=== PATIENT | female | born 1995 | race Caucasian/White ===

== ENCOUNTER → 2025-01-18 | Outpatient (CLI) | payer BC, SELFPAY ==
[2025-01-20 06:07] LABS: Chlamydia By Nucleic Acid AMP Negative (Negative); Gonococcus By Nucleic Acid AMP Negative (Negative)
== END | disposition home or self-care (01) ==
LOC: LABSPEC 10:27
PROVIDERS: PCP Nurse Practitioner; Referring Provider Advanced Practice Midwife; Visit Provider Advanced Practice Midwife
DX: O09.91 Supervision of high risk pregnancy, unspecified, first trimester (principal); Z3A.00 Weeks of gestation of pregnancy not specified
CPT/HCPCS: 87086; 87088; 87491; 87591

== ENCOUNTER → 2025-03-01 | Outpatient (CLI) | payer BC, SELFPAY ==
[2025-03-01 15:40] LABS: Absolute Lymphocyte Count 1.82 X10^3/uL (0.83-4.51); Absolute Neutrophil Count 5.2 X10^3/uL (2.0-7.7); Basophil# 0.03 X10^3/uL; Basophil% 0.4 % (0-1); Eosinophils% 1.3 % (0-5); Hematocrit 37.4 % (37-47); Hemoglobin 12.6 g/dL (12.0-15.0); Lymphocyte # 1.82 X10^3/ul (0.83-4.51); Lymphocyte % 23.2 % (19-41); Mean Corp Hgb Conc 33.7 g/dL (32-36); Mean Corpuscular Hgb 29.2 pg (27.0-32.0); Mean Corpuscular Volume 86.6 fL (81-99); Monocyte# 0.66 X10^3/uL; Monocyte% 8.4 % (0-10); NRBC Flagged by Analyzer 0 % (0-5); Neutrophil # 5.22 X10^3/uL (2.7-7.7); Neutrophil % 66.4 % (47-70); Platelet Count 258 K/mm3 (150-450); RBC Distribution Width CV 12.6 % (11.6-14.6); RBC Distribution Width SD 39.9 fl (35.1-43.9); Red Blood Count 4.32 M/mm3 (4.2-5.4); White Blood Count 7.9 K/mm3 (4.4-11.0)
--- OUTSIDE RECORDS SUMMARY | 2025-03-01 15:42 | XMS RPT_ITS | CCD ---
Author Organization [facility]iniSy[facility] Care Team Providers Care Air Intelligence Officer Name Role Phone Anand Cooley Unavailable Aisha, Michael Unavailable Unavailable Aisha, Michael Unavailable Unavailable ANAND COOLEY Primary Care Unavailable Anand Cooley Primary Care Provider [phone] Eunice Moreno Unavailable Татьяна Brooke Primary Care Provider [phone] Anand Cooley DO Primary Care Provider Eunice Del Angel CNP Unavailable [phone] Татьяна Brooke CNP Primary Care Provider [phone] Татьяна Brooke CNP Primary Care Provider [phone] Anand Cooley DO Primary Care Provider Anand Cooley Unavailable Marie Mario Unavailable Unavailable Fabiano, Cassandra Goldman Attending Unavailable Dr. Anand Cooley Primary Care Unavail able Dr. Anand Cooley Primary Care Unavail able Fabiano, Cassandra Marie Susi Attending Unavailable Eunice Del Angel CNPanne Unavailable Татьяна Brooke CNP Primary Care Provider [phone] Anand Cooley DO Primary Care Provider Татьяна Brooke CNP Primary Care Provider AMY CHI Attending Unavailable ТАТЬЯНА BROOKE Primary Care Unavailable SELF, SELF Referring Unavailable ANAND COOLEY Primary Care Unavailable LEMUEL LEE Attending Unavailable LEMUEL LEE Referring Unavailable LENORA, ANAND Primary Care Unavailable GREEN, DAMIENAVY Attending Unavailable GREEN, PALLAVY Referring Unavailable LENORA, ANAND Primary Care Unavailable JELENA WALTER Attending Unavailable SELF, SELF Referring Unavailable SELF, SELF Referring Unavailable AMY CHI Attending Unavailable EDWARDO, ТАТЬЯНА Primary Care Unavailable GREEN, DAMIENAVY Attending Unavailable GREEN, PALLAVY Referring Unavailable EDWARDO, ТАТЬЯНА Primary Care Unavailable SELF, SELF Referring Unavailable LENORA, ANAND Primary Care Unavailable AMY CHI Attending Unavailable LENORA, ANAND Primary Care Unavailable LENORA, ANAND Primary Care Unavailable KSIAZK, MINO Attending Unavailable KSIAZK, MINO Referring Unavailable Edwardobeau JOVEL, Татьяна Gallagher. Unavailable [phone] Keyla Meneses CNP Primary Care Provider GIDEON, KEYLA LONNAE Primary Care Unavailabl e GIDEON, KEYLA LONNAE Admitting Unavailabl e GIDEON, KEYLA LONNAE Primary Care Unavailabl e Anand Cooley DO Primary Care Provider ANAND COOLEY Primary Care Unavailable ANTONIO LOPEZ Attending Unavailable GIDEON, KEYLA LONNAE Attending Unavailabl e GIDEON, KEYLA LONNAE Primary Care Unavailabl e GIDEON, KEYLA LONNAE Primary Care Unavailabl e GEHLOT, UPENDER Attending Unavailable GIDEON, KEYLA LONNAE Referring Unavailabl e GIDEON, KEYLA LONNAE Admitting Unavailabl e GEHLOT, UPENDER Attending Unavailable GIDEON, KEYLA LONNAE Primary Care Unavailabl e GIDEON, KEYLA LONNAE Primary Care Unavailabl e GIDEON, KEYLA LONNAE Attending Unavailabl e GIDEON, KEYLA LONNAE Primary Care Unavailabl e GIDEON, KEYLA LONNAE Attending Unavailabl e GIDEON, KEYLA LONNAE Primary Care Unavailabl e GIDEON, KEYLA LONNAE Attending Unavailabl e GIDEON, KEYLA LONNAE Primary Care Unavailabl e GIDEON, KEYLA LONNAE Attending Unavailabl e GIDEON, KEYLA LONNAE Attending Unavailabl e GIDEON, KEYLA LONNAE Primary Care Unavailabl e Gideon SALES INCENTIVE ANALYST-C, Keyla L Primary Care Provider Gideon SALES INCENTIVE ANALYST-CKeyla Referring Provider Bianca SALES INCENTIVE ANALYSTEmma Ramírez Attending Provider Nel Ruff CNM Attending Provider Nel Ruff CNM Referring Provider Keyla Meneses Primary Care Unavailable Feliz Menesesl L Referring Unavailable Emma Valenzuela NP Attending Unavailable Keyla Meneses Referring Unavailable Nel Ruff Attending Unavailable Keyla Meneses Primary Care Unavailable Keyla Meneses Referring Unavailable Emmanuelle Contreras Attending Unavailabl e Keyla Meneses Primary Care Unavailable Nel Ruff Attending Unavailable Nel Ruff Referring Unavailable Keyla Meneses Primary Care Unavailable Chas Espinoza DO, Dr. Handley Attending Provider Medications Current Medications Medication Drug Class(es) Dates Sig (Normalized) Sig (Original) [id number] 200 actuat albuterol 0.09 mg/actuat metered dose inhaler (4 sources) beta2-Adrenergic Agonist Start: 09-29-2023 take 1 puff(s) by inhalation every six hours as needed for cough Albuterol 108 (90 Base) MCG/ACT Aero Soln inhaler Indications: Acute bronchitis, unspecified organism Inhale 1 puff every 6 hours as needed for Shortness of Breath, Cough, Respiratory Distress or Wheezing. 18 g 09/29/2023 Active azithromycin 250 mg oral tablet (2 sources) Macrolide Antimicrobial Start: 12-17-2023 End: 12-21-2023 Azithromycin 250 MG tablet Take 500 mg X1 then 250 mg PO Once Daily X 4 days 6 tablet 12/17/2023 12/21/2023 Active Start: 09-29-2023 End: 10-04-2023 Azithromycin 250 MG tablet I ndications: Acute bronchitis, unspecified organism Take by mouth 2 tablets (500 mg) on Day 1, then 1 tablet (250 mg) daily on Days 2-5 6 tablet 0 09/29/2023 10/04/2023 Active Blood Glucose Monitoring Sup pl (ONE TOUCH ULTRA 2) w/Device Kit (15 sources) Start: 06-11-2022 Blood Glucose Monitoring Suppl (ONE TOUCH ULTRA 2) w/Device Kit As directed. 06/11/2022 Active Start: 06-11-2022 Blood Glucose Monitoring Suppl (ONE TOUCH ULTRA 2) w/Device Kit As directed. 0 06/11/2022 Active brompheniramine maleate 0.4 mg/ml / dextromethorphan hydrobromide 2 mg/ml / pseudoephedrine hydrochloride 6 mg/ml oral solution (2 sources) alpha-Adrenergic Agonist, Uncompetitive I-jslmqh-F-aspartate Receptor Antagonist, Sigma-1 Agonist Start: 11-09-2024 End: 11-19-2024 take 5 mL by mouth once daily at bedtime ssozxukhbrdujay-kjqrqddbe-IK 2-30-10 mg/5 mL syrup Indications: Acute rhinosinusitis Take 5 mL by mouth once daily at bedtime for 10 days. 120 mL 11/09/2024 11/19/2024 Active Start: 01-07-2023 take 5 mL by mouth every four hours brompheniramine/dextromethorphan/pseudoe phedrine 2 mg-10 mg-30 mg/5 mL oral syrup ; 5 milliliter(s) orally every 4 hours Quantity: 120 Refills: 0 Ordered: 07-Jan-2023 [employer], Marie Start: 07-Jan-2023 Generic Substitution Allowed Comments: May cause drowsiness. Alcohol may intensify this effect. Use care when operating dangerous machinery.Obtain medical advice before taking any non-prescription drugs as some may affect the action of this medication. Comment on above: May cause drowsiness . Alcohol may intensify this effect. Use care when operating dangerous machinery.Obtain medical advice before taking any non-prescription drugs as some may affect the action of this medication. ciprofloxacin 3 mg/ml ophthalmic solution (1 source) Quinolone Antimicrobial Start: 2022 take 2 drop(s) into the eye(s) every four hours ciprofloxacin 0.3% ophthalmic solution ; 2 drop(s) in each affected eye every 4 hours Quantity: 1 Refills: 0 Ordered: 07-Jan-2023 [employer], Marie Start: 07-Jan-2023 Generic Substitution Allowed Comments: For the eye. Comment on above: For the eye. cyclobenzaprine hydrochloride 5 mg oral tablet (15 sources) Muscle Relaxant Start: 2021 End: 2022 take 1 tablet by mouth three times daily as needed for muscle spasms cyclobenzaprine 5 MG tablet Take 1 tablet by mouth 3 times daily as needed for Muscle spasms. 30 tablet 07/13/2022 Active 24 hr desvenlafaxine succinate 25 mg extended release oral tablet (4 sources) Serotonin and Norepinephrine Reuptake Inhibitor Start: 2023 End: 2023 take 1 tablet by mouth once daily desvenlafaxine succinate 25 mg Tb24 Indications: Anxiety and depression Take 1 (one) tablet (25 mg total) by mouth daily . 30 tablet 04/27/2024 05/18/2024 Discontinued dextromethorphan hydrobromide 15 mg / guaiFENesin 400 mg / pseudoephedrine hydrochloride 60 mg oral tablet (4 sources) alpha-Adrenergic Agonist, Uncompetitive U-qplyic-G-aspartate Receptor Antagonist, Sigma-1 Agonist Start: 2023 take 1 tablet by mouth every six hours as needed pseudoephedrine-dextr omethorphan-guaiFENes in (Capmist DM) 60-15-400 MG tablet Indications: Acute bronchitis, unspecified organism Take 1 tablet by mouth every 6 hours as needed for Cold Symptoms. 30 tablet 09/29/2023 Active escitalopram 10 mg oral tablet (2 sources) Serotonin Reuptake Inhibitor Start: 2022 End: 2023 take 1 tablet by mouth once daily escitalopram oxalate (LEXAPRO) 10 MG tablet Indications: Anxiety Take 1 (one) tablet (10 mg total) by mouth daily . 30 tablet 11 07/21/2023 09/01/2023 Discontinued FLUoxetine 10 mg oral capsule (8 sources) Serotonin Reuptake Inhibitor Start: 2023 End: 2023 take 1 capsule by mouth once daily FLUoxetine (PROZAC) 20 MG capsule Indications: Anxiety Take 1 (one) capsule (20 mg total) by mouth daily . 30 capsule 04/06/2024 04/27/2024 Discontinued Start: 03-06-2024 End: 05-18-2024 take 1 capsule by mouth once daily FLUoxetine (PROZAC) 10 MG capsule Indications: Anxiety and depression Take 1 (one) capsule (10 mg total) by mouth daily . 15 capsule 04/27/2024 05/18/2024 Discontinued fluticasone propionate 0.05 mg/actuat metered dose nasal spray (1 source) Corticosteroid Start: 12-17-2023 take 2 spray(s) nasal route once daily fluticasone 50 MCG/ACT Suspension nasal spray 2 sprays each nostril daily 11.1 mL 12/17/2023 Active folic acid 0.4 mg oral tablet (20 sources) End: 09-01-2023 take 1 tablet by mouth once daily folic acid (FOLVITE) 400 MCG tablet Take 1 (one) tablet (400 mcg total) by mouth daily . 0 09/01/2023 Discontinued INTRAUTERINE DEVICE, IUD, UTRN (1 source) INTRAUTERINE DEVICE, IUD, UTRN by Intrauterine route. Active ipratropium bromide 0.042 mg/actuat metered dose nasal spray (1 source) Anticholinergic Start: 11-09-2024 End: 11-16-2024 take 2 spray(s) nasal route four times daily ipratropium (Atrovent) 42 mcg (0.06 %) nasal spray Indications: Acute rhinosinusitis Administer 2 sprays into each nostril 4 times a day for 7 days. 15 mL 11/09/2024 11/16/2024 Active isopropyl alcohol 0.7 ml/ml medicated pad (18 sources) Start: 06-11-2022 Alcohol Swabs (Alcohol Wipes) 70 % Pads To be used to check blood sugar 100 Each 3 06/11/2022 Active lamoTRIgine 200 mg oral tablet (8 sources) Mood Stabilizer, Anti-epileptic Agent Start: 01-02-2025 take 1 tablet by mouth once daily Lamotrigine 200 mg tablet Active 200 mg PO daily January 02, 2025 12:00am Start: 07-27-2024 End: 12-25-2024 take 1 tablet by mouth once daily lamoTRIgine (LAMICTAL) 200 MG tablet Take 1 (one) tablet (200 mg total) by mouth daily Monitor for rash/fever . 30 tablet 2 12/25/2024 Active Start: 06-13-2024 End: 07-27-2024 lamoTRIgine (LAMICTAL) 25 MG tablet Start 1 tab daily X 2 weeks and then 2 tabs daily X 2weeks and then 4 tabs daily thereafter. Monitor for rash/fever . 120 tablet 06/13/2024 07/27/2024 Discontinued (Reorder (Suppress CancelRx Message to Pharmacy)) 3 ml liraglutide 6 mg/ml pen injector (2 sources) GLP-1 Receptor Agonist Start: 04-02-2023 liraglutide (Victoza 2-Russel) 0.6 mg/0.1 mL (18 mg/3 mL) injection Inject 0.6 mg every day for one week, then inject 1.2 mg every day for one week, then inject 1.8 mg every day 04/02/2023 Active Start: 05-04-2021 inject 1.8 mg by sub cutaneous injection once daily Victoza 18 MG/3ML Solution Pen-injector injection inject 1.8 milligram subcutaneously daily 0 05/04/2021 Active 24 hr metFORMIN hydrochlorid e 500 mg extended release oral tablet (20 sources) Biguanide Start: 01-02-2025 Metformin 500 mg tablet extended release 24 hr Active 1500 mg PO daily January 02, 2025 12:00am Start: 04-02-2023 take 1 tablet by maribell th twice daily metFORMIN (GLUCOPHAGE-XR) 500 MG 24 hr tablet Take 1 (one) tablet (500 mg total) by mouth 2 (two) times a day . 04/02/2023 Active Start: 04-02-2023 take 4 tablets by mo [facility] once daily metFORMIN-XR 500 MG Tab SR 24 HR Take 4 tablets by mouth daily. 04/02/2023 Active Start: 04-25-2021 End: 01-09-2022 take 1 tablet by mouth once daily metFORMIN-XR 500 MG Tab SR 24 HR Take 1,000 mg by mouth daily. 0 04/25/2021 01/09/2022 Discontinued Start: 10-12-2019 End: 07-21-2022 take 1 tablet by mouth once daily at breakfast metFORMIN (GLUCOPHAGE) 500 MG tablet Indications: PCOS (polycystic ovarian syndrome) Take 1 (one) tablet (500 mg total) by mouth daily with breakfast . 30 tablet 11 10/12/2019 07/21/2022 Discontinued Multiple Vitamins-Minerals (WOMENS MULTIVITAMIN PO) (3 sources) Multiple Vitamin s-Minerals (WOMENS MULTIVITAMIN PO) Take by mouth. Active multivitamin (THERAGRAN) per tablet (12 sources) take 1 tablet by mouth once daily multivitamin (THERAGRAN) per tablet Take 1 (one) tablet by mouth daily . Active take 1 tablet by mouth once yesi y multivitamin (THERAGRAN) per tablet Take 1 (one) tablet by mouth daily . 0 Active OneTouch Ultra2 Meter Misc (3 sources) Start: 06-11-2022 End: 09-01-2023 OneTouch Ultra2 Meter Misc S ee Admin Instructions . 0 06/11/2022 09/01/2023 Discontinued Start: 06-11-2022 OneTouch Ultra 2 Meter Misc See Admin Instructions . 0 06/11/2022 Active penicillin v potassium 500 mg oral tablet (2 sources) Start: 12-31-2022 End: 01-09-2023 take 1 tablet by mouth twice daily 1 hour(s) after mealtime penicillin V potassium 500 mg oral tablet ; 1 tab(s) orally 2 times a day Quantity: 20 Refills: 0 Ordered: 31-Dec-2022 Marie Mario Start: 31-Dec-2022 End: 09-Jan-2023 Generic Substitution Allowed Comments: Finish all this medication unless otherwise directed by prescriber.Take medication on an empty stomach 1 hour before or 2 to 3 hours after a meal unless otherwise directed by your doctor. Comment on above: Finish all this medi cation unless otherwise directed by prescriber.Take medication on an empty stomach 1 hour before or 2 to 3 hours after a meal unless otherwise directed by your doctor. Pnv No.[id number] -Epa-Fish 400 mcg-35 mg- 25 mg-5 mg tablet,chewable (2 sources) Start: 01-11-2025 Pnv No.[id number]-Dha-Epa -Fish 400 mcg-35 mg- 25 mg-5 mg tablet,chewable Active {tbl} PO January 11, 2025 12:00am predniSONE 10 mg oral tablet (6 sources) Start: 11-09-2024 End: 11-16-2024 take 3 tablets by mouth once daily predniSONE (Deltasone) 10 mg tablet Indications: Acute rhinosinusitis Take 3 tablets (30 mg) by mouth once daily for 7 days. 21 tablet 11/09/2024 11/16/2024 Active Start: 09-29-2023 take 3 tablets by mo uth once daily, then take 2 tablets by mouth once daily, then take 1 tablet by mouth once daily predniSONE 20 MG tablet Indications: Acute bronchitis, unspecified organism Take 3 tabs daily x2 days then 2 tabs daily x2 days then 1 tab daily x2 days PO as directed 12 tablet 09/29/2023 Active Start: 01-05-2023 End: 01-11-2023 take 2 tablets by mouth once daily, then take 1 tablet by mouth once daily predniSONE 20 MG tablet Take 2 tablets by mouth daily for 3 days, THEN 1 tablet daily for 3 days. 40,40,40,20,20,20. 9 tablet 0 01/05/2023 01/11/2023 Active vitamin (2 sources) vitamin Quantity: 0 Refills: 0 Ordered: 31-Dec-2022 Kalee Simeon Generic Substitution Allowed vitamin with Ca-Iron-FA 27-1 mg Tab (4 sources) End: 09-01-2023 take 1 tablet by mouth once daily vitamin with Ca-Iron-FA 27-1 mg Tab Take 1 (one) tablet by mouth daily . 0 09/01/2023 Discontinued take 1 tablet by mouth once yesi y vitamin with Ca-Iron-FA 27-1 mg Tab Take 1 (one) tablet by mouth daily . 0 Active Completed/Discontinued Medications Medication Drug Class(es) Dates Sig (Normalized) Sig (Original) acetaminophen 325 mg oral tablet (1 source) Start: 08-11-2022 End: 08-13-2022 take 325-650 mg by mouth every three hours as needed acetaminophen (TYLENOL) tablet 325-650 mg benzocaine 200 mg/ml / menthol 5 mg/ml topical spray (1 source) Standardized Chemical Allergen Start: 08-11-2022 End: 08-13-2022 Benzocaine-Menthol (DERMOPLAST) 20-0.5 % topical spray 1 spray bisacodyl 5 mg delayed release oral tablet (1 source) Stimulant Laxative Start: 08-11-2022 End: 08-13-2022 bisacodyl (DULCOLAX) tablet DR 10 mg busPIRone hydrochloride 7.5 mg oral tablet (9 sources) Start: 05-18-2024 End: 12-25-2024 take 1 tablet by mouth three times daily busPIRone (BUSPAR) 7.5 MG tablet Indications: Anxiety and depression Take 1 (one) tablet (7.5 mg total) by mouth 3 (three) times a day . 90 tablet 05/18/2024 12/25/2024 Discontinued Start: 04-27-2024 End: 05-27-2024 take 1 tablet by mouth twice daily busPIRone (BUSPAR) 5 MG tablet Indications: Anxiety and depression Take 1 (one) tablet (5 mg total) by mouth 2 (two) times a day . 60 tablet 04/27/2024 05/18/2024 Discontinued calcium chloride 0.0014 meq/ml / potassium chloride 0.004 meq/ml / sodium chloride 0.103 meq/ml / sodium lactate 0.028 meq/ml injectable solution (1 source) Start: 08-11-2022 End: 08-11-2022 lactated ringers IV solution 1,000 mL cholecalciferol 0.025 mg oral tablet (20 sources) Vitamin D End: 12-25-2024 take 1 tablet by mouth once daily cholecalciferol, vitamin D3, 1,000 unit tablet Take 1 (one) tablet (1,000 Units total) by mouth daily . 12/25/2024 Discontinued take 1 tablet by mouth once yesi y Vitamin D, Cholecalciferol, 25 MCG (1000 UT) tablet Take 1 tablet by mouth daily. 0 Active Vitamin D3 Quant ity: 0 Refills: 0 Ordered: 31-Dec-2022 Vladykina Kalee Generic Substitution Allowed citalopram 10 mg oral tablet (2 sources) Serotonin Reuptake Inhibitor Start: 09-01-2023 End: 08-31-2024 take 1 tablet by mouth once daily citalopram (CELEXA) 10 MG tablet Indications: Anxiety Take 1 (one) tablet (10 mg total) by mouth daily . 30 tablet 11 09/01/2023 03/06/2024 Discontinued clomiPHENE citrate 50 mg oral tablet (11 sources) Estrogen Agonist/Antagoni st Start: 11-24-2021 End: 04-30-2022 clomiPHENE 50 MG tablet Take 1 tablet by mouth daily. To be taken cycle day 3 thru 7. 5 tablet 0 11/24/2021 04/30/2022 Discontinued (Patient Preference) diphenhydrAMINE hydrochloride 25 mg oral tablet (1 source) Histamine-1 Receptor Antagonist Start: 08-11-2022 End: 08-13-2022 take 1 tablet by mouth every six hours as needed diphenhydrAMINE (BENADRYL) tablet 25 mg docosahexaenoic acid 200 mg oral capsule (2 sources) Start: 01-02-2025 End: 01-11-2025 Docosahexaenoic Acid ( Dha) 200 mg capsule Discontinued mg PO January 02, 2025 12:00am January 11, 2025 10:41am docusate sodium 100 mg oral capsule (1 source) Start: 08-11-2022 End: 08-13-2022 docusate (COLACE) capsule 100 mg ferrous sulfate 325 mg oral tablet (1 source) Start: 08-12-2022 End: 08-13-2022 ferrous sulfate tablet 325 mg 250 ml glucose 50 mg/ml / sodium chloride 4.5 mg/ml injection (1 source) Start: 08-12-2022 End: 08-13-2022 dextrose 5% and sodium chloride 0.45% IV solution GLUCOSE MONITOR PRESCRIPTION (12 sources) Start: 06-11-2022 End: 08-13-2022 GLUCOSE MONITOR PRESCRIPTION Check blood sugars fasting every morning and then 2 hrs post prandial after each meal 1 Each 0 06/11/2022 08/13/2022 Discontinued Start: 06-11-2022 GLUCOSE MONITO R PRESCRIPTION Check blood sugars fasting every morning and then 2 hrs post prandial after each meal 1 Each 0 06/11/2022 Active ibuprofen 400 mg oral tablet (1 source) Nonsteroidal Anti-inflammatory Drug Start: 08-11-2022 End: 08-13-2022 take 1 tablet by mouth every six hours as needed ibuprofen (MOTRIN) tablet 800 mg lanolin (MEDELA TENDER CARE) cream 1 Application (1 source) Start: 08-11-2022 End: 08-13-2022 lanolin (MEDELA TENDER CARE) cream 1 Application 1 ml nalbuphine hydrochloride 10 mg/ml injection (1 source) Opioid Agonist/Antagonist Start: 08-11-2022 End: 08-11-2022 nalbuphine (NUBAIN) injection 5-10 mg oxytocin (PITOCIN) bolus from the bag 20 Units (1 source) Start: 08-11-2022 End: 08-13-2022 oxytocin (PITOCIN) bolus from the bag 20 Units Vit-Fe Fumarate-FA ( VITAMIN PO) (20 sources) End: 10-26-2023 Vit-Fe Fumarate-FA ( VITAMIN PO) Take by mouth. 10/26/2023 Discontinued (Other (suppress cancel msg)) Vit-Fe Fumarate-FA ( VITAMIN PO) Take by mouth. 0 Active vitamin (TRINATAL RX) 60-1 MG tablet 1 tablet (1 source) Start: 08-12-2022 End: 08-13-2022 vitamin (TRINATAL RX) 60-1 MG tablet 1 tablet 250 ml sodium chloride 9 mg/ml injection (1 source) Start: 08-11-2022 End: 08-11-2022 sodium chloride 0.9% IV solution 125 mL zolpidem tartrate 5 mg oral tablet (1 source) gamma-Aminobutyric Acid-ergic Agonist Start: 08-11-2022 End: 08-13-2022 zolpidem (AMBIEN) tablet 5 mg Problems Active Problems Problem Classification Problem Date Documented Date Episodic/Chronic Abdominal pain (1 source) Right upper quadrant pain; Translations: [Right upper quadrant pain] Episodic Acute and chronic tonsillitis (1 source) Acute tonsillitis, unspecified; Translations: [Acute tonsillitis, unspecified] Onset: 3 Episodic Acute bronchitis (3 sources) Acute bronchitis; Translations: [Acute bronchitis, unspecified] Onset: 4 09-29-2023 Episodic Anxiety disorders (20 sources) Anxiety; Translations: [Anxiety disorder, unspecified] Onset: 4 Resolved: 4 07-21-2023 Chronic Comment on above: sees psychiatrist-Dr Cassandra Fuentes-Does not meet criteria for diagnosis of bipolar Diabetes or abnormal glucose tolerance complicating ; childbirth; or the puerperium (20 sources) Gestational diabetes mellitus; Translations: [Gestational diabetes mellitus in , diet controlled] Onset: 2 Episodic Female infertility (1 source) Female infertility associated with anovulation; Translations: [Female infertility associated with anovulation] Chronic Genitourinary symptoms and ill-defined conditions (1 source) Dysuria; Translations: [Dysuria] Episodic Inflammation; infection of eye (except that caused by tuberculosis or sexually transmitteddisease) (3 sources) Conjunctivitis; Translations: [Conjunctivitis, unspecified] Onset: 3 01-07-2023 Episodic Influenza (2 sources) Influenza 01-07-2023 Comment on above: FLU SYMPTOMS Malaise and fatigue (5 sources) Fatigue; Translations: [Chronic fatigue, unspecified] Onset: 4 04-06-2024 Chronic Menstrual disorders (1 source) Amenorrhea, unspecified; Translations: [Amenorrhea, unspecified] Onset: 5 Chronic Mood disorders (3 sources) Mood disorder; Translations: [Unspecified mood [affective] disorder] Onset: 5 12-26-2024 Chronic Mood disorders (6 sources) Mood disorders; Translations: [Depression, unspecified] Onset: 0 Resolved: 4 09-25-2019 Nutritional deficiencies (20 sources) Vitamin D deficiency; Translations: [Vitamin D deficiency, unspecified] Onset: 2 10-22-2021 Chronic Other complications of ; puerperium affecting management of mother (1 source) Disruption of episiotomy wound in the puerperium; Translations: [Disruption of perineal obstetric wound] Episodic Other complications of (1 source) Pain in pelvis; Translations: [Other specified related conditions, first trimester] Episodic Other complications of (1 source) Reduced movement; Translations: [Decreased movements, second trimester, not applicable or unspecified] Episodic Other complications of (15 sources) High risk ; Translations: [Supervision of high risk , unspecified, third trimester] Episodic Comment on above: , ASHLEE 09/04/25, [place], Josue Other complications of (5 sources) History of gestational diabetes mellitus; Translations: [Supervision of with other poor reproductive or obstetric history, unspecified trimester] 01-18-2025 Episodic Comment on above: A1C Other complications of (6 sources) Supervision of with other poor reproductive or obstetric history, unspecified trimester; Translations: [History of forceps delivery in prior , currently ] Onset: 5 01-11-2025 Episodic Other complications of (1 source) Supervision of high risk , unspecified, first trimester; Translations: [Supervision of high risk , unspecified, first trimester] Onset: 5 Episodic Other endocrine disorders (8 sources) Polycystic ovarian syndrome; Translations: [Polycystic ovary syndrome] Onset: 5 01-18-2025 Chronic Comment on above: on metformin- sees e ndo in [place] Other endocrine disorders (20 sources) Polycystic ovary; Translations: [Polycystic ovarian syndrome] Onset: 2 10-22-2021 Chronic Other eye disorders (1 source) Other specified disorders of eye and adnexa; Translations: [Other specified disorders of eye and adnexa] Onset: 3 Episodic Other lower respiratory disease (2 sources) Cough; Translations: [Acute cough] Episodic Other nutritional; endocrine; and metabolic disorders (20 sources) Insulin resistance; Translations: [Metabolic syndrome] Onset: 2 10-22-2021 Chronic Other nutritional; endocrine; and metabolic disorders (2 sources) Metabolic syndrome; Translations: [Metabolic syndrome] Onset: 4 Chronic Other nutritional; endocrine; and metabolic disorders (2 sources) Weight gain; Translations: [Weight gain] Episodic Other and delivery including normal (12 sources) Normal ; Translations: [Encounter for supervision of normal first , second trimester] Onset: 5 Episodic Comment on above: elects NIPT & Marsha r testing Other upper respiratory disease (2 sources) Pain in throat 12-31-2022 Episodic Comment on above: SORE THROAT Other upper respiratory disease (1 source) Nasal congestion; Translations: [Nasal congestion] Onset: 3 Episodic Other upper respiratory infections (15 sources) Acute upper respiratory infections of other multiple sites; Translations: [Viral upper respiratory tract infection] Onset: 3 12-31-2022 Episodic Residual codes; unclassified (2 sources) Gestation period, 8 weeks; Translations: [8 weeks gestation of ] Episodic Residual codes; unclassified (1 source) Gestation period, 17 weeks; Translations: [17 weeks gestation of ] Episodic Residual codes; unclassified (1 source) Gestation period, 20 weeks; Translations: [20 weeks gestation of ] Episodic Residual codes; unclassified (1 source) Gestation period, 24 weeks; Translations: [24 weeks gestation of ] Episodic Residual codes; unclassified (1 source) Gestation period, 31 weeks; Translations: [31 weeks gestation of ] Episodic Residual codes; unclassified (2 sources) Gestation period, 32 weeks; Translations: [32 weeks gestation of ] Episodic Residual codes; unclassified (1 source) Gestation period, 34 weeks; Translations: [34 weeks gestation of ] Episodic Residual codes; unclassified (1 source) Gestation period, 35 weeks; Translations: [35 weeks gestation of ] Episodic Residual codes; unclassified (1 source) Gestation period, 36 weeks; Translations: [36 weeks gestation of ] Episodic Residual codes; unclassified (2 sources) Gestation period, 37 weeks; Translations: [37 weeks gestation of ] Episodic Residual codes; unclassified (1 source) 10 weeks gestation of ; Translations: [10 weeks gestation of ] Onset: 5 Episodic Unclassified (20 sources) Onset: 2 01-14-2022 Unclassified (1 source) Pharyngotonsillitis 12-31-2022 Unclassified (1 source) Cough, unspecified; Translations: [Cough, unspecified] Onset: 3 Unclassified (1 source) Acute cough; Translations: [Acute cough] Onset: 4 Viral infection (2 sources) Viral ear infection; Translations: [Other disorders of ear] 01-07-2023 Episodic Past or Other Problems Problem Classification Problem Date Documented Date Episodic/Chronic Other complications of (12 sources) Patient encounter status; Translations: [Maternal care for abnormalities of the heart rate or rhythm, unspecified trimester, not applicable or unspecified] Onset: 08-11-2022 Episodic Other screening for suspected conditions (not mental disorders or infectious disease) (5 sources) Cancer cervix screening status; Translations: [Encounter for screening for malignant neoplasm of cervix] Onset: 07-06-2023 10-26-2023 Episodic Unclassified (1 source) Acute cough; Translations: [Acute cough] Onset: 09-29-2023 NEGATED: Highlighted row has been ruled out!Unclassified (1 source) No known active problems 01-30-2020 Results Test Name Value Interpretation Reference Range Facil ity Chlamydia/GC NELLY aptimaon CHLAMY,NUC ACID Negative Normal Negative [facility] Comment on above: Performed By: #### M 100.2200, L7000.1800 #### [facility] [address] [place], [address] GC BY NUC ACID Negative Normal Negative [facility] Comment on above: Result Comment: Perf ormed at: =G - [facility] [place] [address] [place], [place] [id number] Riding Teacher: Helena Lieberman MD, Phone: [phone] Performed By: #### M 100.2200, L7000.1800 #### [facility] [address] [place], [place], [id number] Urine Cultureon 01-19-2025 U[facility] Below infection level. Mixed Gram Positive Organisms [place] Count 1000-10,000 MIXC Mixed contaminants. Submit a new specimen if indicated. Normal [facility] Comment on above: Performed By: #### M 100.2200, L7000.1800 #### [facility] [address] [place], [place], [id number] Chlamydia trachomatis rRNA d etection by probe and target amplification methodOrdered By: Nel Ruff on 01-18-2025 C. trachomatis rRNA NELLY+probe Ql (Unsp spec) Negative Negative [facility] Neisseria gonorrhoeae nuclei c acid detection by amplified probe techniqueOrdered By: Nel Ruff on 01-18-2025 N. gonorrhoeae DNA NELLY+probe Ql (Unsp spec) Negative Negative [facility] Comment on above: Performed at: =G - [facility] [address] [place], [place] [id number] Director: Helena Lieberman MD, Phone: [phone] [employer] Office Visit Reporton 01-18-2025 [employer] Office Visit Report [facility] [address], [address] [place] [address] OFFICE VISIT Date of Service: 01/18/25 MR#: [id number] Acct: [id number] Name: DRAKE PETTY Rep #: [id number] : 1995 Provider: BRET Gay ams Age/Sex: 29/F [place] [facility] [place]: Signed Intake Vital Signs 01/02/25 08:40 01/18/25 08:47 Height 5 ft 4 in 5 ft 4 in Weight: 162 lb 2 oz BMI 27.8 BP 122/79 H Intake Visit Reasons: NOB LMP 11/09 Chief Complaint: New OB Copy Lathe Operator Required: No Is patient in pain?: No Allergies No Known Allergies Allergy (Unverified 01/18/25 08:46) Medications ???Medication ???Instructions ???Recorded ???Confirmed ???Type lamotrigine 200 mg tablet 200 mg PO QDAY 01/02/25 01/18/25 H istory metformin 500 mg tablet,extended 1,500 mg PO QDAY 01/02/25 01/18/25 History release 24 hr PNV 153-FA 400 mcg-om3 35 mg-dha tab PO 01/11/25 01/18/25 History 25 mg-epa 5 mg-fish oil chew tablet Last Menstrual Period: 11/09/24 : Yes Have you fallen in the past year?: No PFSH PFSH Medical History (Updated 01/18/25 @ 09:30 by Nel Ruff CNM) Depression with anxiety PCOS (polycystic ovarian syndrome) Surgical History S/P wrist surgery S/P left knee surgery Family History Father Hypertension Mother Depression with anxiety Grandmother Diabetes Maternal Skin cancer, Onset Age: 75 Maternal Grandfather Diabetes Maternal Grandmother Diabetes Paternal Social History adopted: No household members: spouse and children housing: house number of children: 1 current occupational status: employed 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 [employer] current occupational exposures/hazards: No pets and animals: No history of recent travel: Yes (- December) out of state: Yes out of country: No sexually active: Yes Smoking Status: Never smoker alcohol intake: current alcohol intake frequency: a few times a month details: not since substance use type: former substance user Date of last use: 10years ago and marijuana well-balanced diet: daily or most days caffeine: No eating out: 1-3 times/week during the past year weight has: decreased > 10 lbs what type of physical activity do you participate in: walking frequency: 5-6 times per week duration: 45-60 minutes/day carolann/episcopalian: None seatbelt use: always do you feel safe at home: Yes 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 Date Name GA/Weeks Outcome Route Bth Weight Infant Gen Labor Lgth Anesthesia Del Locatn Provider FOB 08/11/22 [place] 38 live - full term forceps 6#10oz Male epidural [facility] Josue Delivery Date: 08/11/22 Last Updated by: Joslyn Gregory IOL, GDM HPI NOB LMP 11/09 Details: DRAKE PETTY is a 29 year old who presents for New OB visit. OB Visit ASHLEE Calculator Estimated Delivery Date Method Current WG Current Estimate 09/04/25 Ultrasound #1 7w 2d Other Estimates 08/16/25 LMP (Certain) 10w 0d Comments: HIV: Urine Culture: Sequential Screen: NIPT Screen: Estimated Due Date: 08/16/25 Expected Delivery Route/Plan Labor Preferences- CB/BF classes: [] labor support person: [] labor intervention preferences: [] pain management options preferred: [] cut cord/dad catch: [] : [] PP control planned: [] discussed possible routes of delivery and associated risks: [] special requests: [] Specific Issue/Plans Covid status: [] Flu vaccine: [] Tdap vaccine: [] Rhogam: [] LARC form signed: [] Problem list reviewed and updated with the most current plan of care details and appropriate orders placed. Relevant counseling for the gestational age provided. Continue routine care and follow up unless otherwise noted in visit notes/problem list details Initial Weight: 162 lb Date -???-???-???-???-??? -???-???-???-???-??? -???-???- EGA Weight BP Urine Prot -???-???-???-???-??? -???-???-???-???-??? -???-???- Glucose FHR FuHt Pres Dilation -???-???-???-???-??? -???-???-???-???-??? -???-???- Effaced St Visit Note 01/18/25 -???-???-???-???-??? -???-???-???-???-??? -???-???- 7w 2d 162 lb 2 oz (+2 oz) 122/79 -???-???-???-???-??? -???-???-???-???-??? -???-???- 151 -???-???-???-???-??? -???-???-???-???-??? -???-???- KW-CRL not c ons with dates. ASHLEE changed. will plan NOB labs next vis (more content not included)... Normal [facility] Urine cultureOrdered By: Rajesh Ruff on 01-18-2025 Bacteria identified Cx Nom (U) Positive Abnormal [facility] - Chemistry and C hemistry - challengeOrdered By: Emma Valenzuela on 01-02-2025 HCG ( test) Ql (U) Positive [facility] [employer] Office Visit Reporton 01-02-2025 [employer] Office Visit Report [facility] [address], [address] [place] [address] OFFICE VISIT Date of Service: 01/02/25 MR#: [id number] Acct: [id number] Name: DRAKE PETTY Rep #: [id number] : 1995 Provider: OLY hoffman Age/Sex: 29/F [place] [facility] [place]: Signed Intake Vital Signs 01/02/25 08:40 Height 5 ft 4 in Weight: 162 lb BMI 27.8 Intake Visit Reasons: Confirmation/Establi Care Copy Lathe Operator Required: No Is patient in pain?: No Allergies No Known Allergies Allergy (Unverified 01/02/25 08:41) Medications ???Medication ???Instructions ???Recorded ???Confirmed ???Type docosahexaenoic acid 200 mg mg PO 01/02/25 01/02/25 History capsule ( DHA) lamotrigine 200 mg tablet 200 mg PO QDAY 01/02/25 01/02/25 H istory metformin 500 mg tablet,extended 1,500 mg PO QDAY 01/02/25 01/02/25 History release 24 hr Is last menstrual period known: Yes Last Menstrual Period: 11/09/24 Post menopausal: No Patient : Yes : No PFSH Medical History (Updated 01/02/25 @ 11:10 by Emma Valenzuela SALES INCENTIVE ANALYST, SALES INCENTIVE ANALYST-C) Depression with anxiety PCOS (polycystic ovarian syndrome) Surgical History (Updated 01/02/25 @ 08:47 by Vee Luis) S/P wrist surgery S/P left knee surgery Family History (Updated 01/02/25 @ 08:48 by Vee Luis) Father Hypertension Mother Depression with anxiety Grandmother Diabetes Skin cancer Grandfather Diabetes Social History (Updated 01/02/25 @ 08:49 by Vee Luis) Smoking Status: Never smoker alcohol intake: current details: not since substance use type: does not use caffeine: No what type of physical activity do you participate in: walking frequency: 3-4 times per week seatbelt use: always do you feel safe at home: Yes additional social history: -Josue HPI Confirmation/[facility] Care Details: DRAKE PETTY is a 29 year old who presents for Female Reproductive History Last Menstrual Period: 11/09/24 History 2 Elective abortions Hx Para 1 Spontaneous abortions Hx # Term Pregnancies Ectopic pregnancies Hx # Pregnancies Multiple births # of living children 1 Results POC Urine Office , Urine Positive Last Edit by Vee Luis on 01/02/25 08:50 Coding Level of Care Code Off vis,est,level 1 Diagnoses Supervision of high risk in first trimester O09.91 Trimester: first trimester Assessment and Plan Assessment and Plan (1) Supervision of high-risk : Status: Acute Qualifiers: Trimester: first trimester Qualified Code(s): O09.91 - Supervision of high risk , unspecified, first trimester Orders: Orders POC Urine Today N91.2 - Amenorrhea, unspecified Plan Confirmed NOB scheduled. 01/02/25 1110 Date Emma Fitzgeraldtings SALES INCENTIVE ANALYST SALES INCENTIVE ANALYST-C Cosigner Signature: Date (if applicable) CC: Normal [facility] Beta HCG ( test) Ql on 12-26-2024 Interpretation and review of laboratory results Abnormal [facility] FASTING:UNKNOWN FASTING: UNKNOWN [facility] hCG, Serum, Qualitativeon Beta HCG ( test) Ql Positive Abnormal See Note: [facility] Comment on above: Reference Range: Reference Range Non-: Negative : Positive CBC WITH AUTO DIFFERENTIALon 06-15-2024 AUTO NRBC 0.0 % [facility] Comment on above: Performed By: #### L [id number] #### [facility] [address] [address] Guerrero Barnett M.D. [id number] AUTO NRBC ABS COUNT 0.00 K/mcL Normal 0.00-0.00 [facility] Comment on above: Performed By: #### L [id number] #### LAB [address] [address] Guerrero Barnett M.D. [id number] BASOPHILS ABSOLUTE COUNT 0.05 K/mcL Normal 0.00-0.30 [facility] Comment on above: Performed By: #### L [id number] #### [facility] [address] [id number] Guerrero Barnett M.D. [id number] Basophils/100 WBC (Bld) 0.8 % [facility] Comment on above: Performed By: #### L [id number] #### LAB [address] [address] Guerrero Barnett M.D. [id number] Eosinophils (Bld) [#/Vol] 0.18 10*3/uL Normal 0.00-0.50 [facility] Comment on above: Performed By: #### L [id number] #### LAB [address] [place] [address] Guerrero Barnett M.D. [id number] Eosinophils/100 WBC (Bld) 2.8 % Normal [facility] Comment on above: Performed By: #### L [id number] #### LAB [address] [place] [address] Guerrero Barnett M.D. [id number] Erythrocyte distribution width (RBC) [Ratio] 12.8 % Normal 11.6-14.8 [facility] Comment on above: Performed By: #### L [id number] #### LAB [address] [place] [address] Guerrero Barnett M.D. [id number] Hematocrit (Bld) [Volume fraction] 40.7 % Normal 36.0-46.0 [facility] Comment on above: Performed By: #### L [id number] #### LAB [address] [place] [address] Guerrero Barnett M.D. [id number] Hemoglobin (Bld) [Mass/Vol] 13.2 g/dL Normal 12.0-16.0 [facility] Comment on above: Performed By: #### L [id number] #### LAB [address] [place] [address] Guerrero Barnett M.D. [id number] IG ABSOLUTE 0.02 K/mcL Normal 0.00-0.30 [facility] Comment on above: Performed By: #### L [id number] #### LAB [address] [place] [address] Guerrero Barnett M.D. [id number] IG PERCENT 0.30 % Normal [facility] Comment on above: Result Comment: The IG parameter is the percentage of metamyelocytes, myelocytes and promyelocytes. An immature granulocyte count (IG) of 1% or more suggests the possibility of infection, an IG count of 3% is very likely related to an infection. Performed By: #### L [id number] #### LAB [address] [address] Guerrero Barnett M.D. [id number] Lymphocytes (Bld) [#/Vol] 2.53 10*3/uL Normal 0.90-4.00 [facility] Comment on above: Performed By: #### L [id number] #### LAB [address] [address] Guerrero Barnett M.D. [id number] Lymphocytes/100 WBC (Bld) 38.7 % Normal [facility] Comment on above: Performed By: #### L [id number] #### LAB [address] [address] Guerrero Barnett M.D. [id number] MCH (RBC) [Entitic mass] 29.0 pg Normal 26.0-34.0 [facility] Comment on above: Performed By: #### L [id number] #### LAB [address] [address] Guerrero Barnett M.D. [id number] MCV (RBC) [Entitic vol] 89.5 fL Normal 80.0-100.0 [facility] Comment on above: Performed By: #### L [id number] #### LAB [address] [place] [address] Guerrero Barnett M.D. [id number] MEAN CORPUSCULAR HEMOGLOBIN CONC 32.4 g/dL Normal 31.0-37.0 [facility] Comment on above: Performed By: #### L [id number] #### LAB [address] [address] Guerrero Barnett M.D. [id number] Monocytes (Bld) [#/Vol] 0.64 10*3/uL Normal 0.30-0.90 [facility] Comment on above: Performed By: #### L [id number] #### LAB [address] [place] [address] Guerrero Barnett M.D. [id number] Monocytes/100 WBC (Bld) 9.8 % Normal [facility] Comment on above: Performed By: #### L [id number] #### LAB [address] [address] Guerrero Barnett M.D. [id number] NEUTROPHILS ABSOLUTE COUNT 3.11 K/mcL Normal 1.70-7.00 [facility] Comment on above: Performed By: #### L [id number] #### LAB [address] [address] Guerrero Barnett M.D. [id number] Neutrophils/100 WBC (Bld) 47.6 % Normal [facility] Comment on above: Performed By: #### L [id number] #### LAB [address] [address] Guerrero Barnett M.D. [id number] Platelet mean volume (Bld) [Entitic vol] 9.9 fL Normal 9.4-12.4 [facility] Comment on above: Performed By: #### L [id number] #### LAB [address] [address] Guerrero Barnett M.D. [id number] Platelets (Bld) [#/Vol] 366 10*3/uL Normal 150-400 [facility] Comment on above: Performed By: #### L [id number] #### LAB [address] [address] Guerrero Barnett M.D. [id number] RBC (Bld) [#/Vol] 4.55 10*6/uL Normal 4.00-5.20 [facility] Comment on above: Performed By: #### L [id number] #### LAB [address] [address] Guerrero Barnett M.D. [id number] WBC (Bld) [#/Vol] 6.53 10*3/uL Normal 4.50-11.00 [facility] Comment on above: Performed By: #### L [id number] #### [facility] [address] [address] Guerrero Barnett M.D. [id number] [facility] METABOL[facility] 06-15-2024 Albumin [Mass/Vol] 4.6 g/dL Normal 3.2-5.2 [facility] Comment on above: Order Comment: [facility] has implemented the eGFR calculation approach that does not have a coefficient for race that conforms to the NKF-ASN Task Force Recommendations. Performed By: #### 4 [id number] #### LAB [address] [address] Guerrero Barnett M.D. [id number] ALP [Catalytic activity/Vol] 87 U/L Normal 40-140 [facility] Comment on above: Order Comment: [facility] has implemented the eGFR calculation approach that does not have a coefficient for race that conforms to the NKF-ASN Task Force Recommendations. Performed By: #### 4 [id number] #### LAB [address] [address] Guerrero Barnett M.D. [id number] ALT [Catalytic activity/Vol] 34 U/L Normal 0-35 U/L [facility] Comment on above: Order Comment: [facility] has implemented the eGFR calculation approach that does not have a coefficient for race that conforms to the NKF-ASN Task Force Recommendations. Performed By: #### 4 [id number] #### LAB [address] [address] Guerrero Barnett M.D. [id number] Anion gap [Moles/Vol] 16 mmol/L Normal 10-20 [facility] Comment on above: Order Comment: [facility] has implemented the eGFR calculation approach that does not have a coefficient for race that conforms to the NKF-ASN Task Force Recommendations. Performed By: #### 4 [id number] #### LAB [address] [address] Guerrero Barnett M.D. [id number] AST [Catalytic activity/Vol] 26 U/L Normal 0-35 U/L [facility] Comment on above: Order Comment: [facility] has implemented the eGFR calculation approach that does not have a coefficient for race that conforms to the NKF-ASN Task Force Recommendations. Performed By: #### 4 [id number] #### LAB [address] [id number] Guerrero Barnett M.D. [id number] Bilirubin [Mass/Vol] 0.3 mg/dL Normal 0.0-1.3 [facility] Comment on above: Order Comment: [facility] has implemented the eGFR calculation approach that does not have a coefficient for race that conforms to the NKF-ASN Task Force Recommendations. Performed By: #### 4 [id number] #### LAB [address] [address] Guerrero Barnett M.D. [id number] Calcium [Mass/Vol] 9.5 mg/dL Normal 8.4-10.2 [facility] Comment on above: Order Comment: [facility] has implemented the eGFR calculation approach that does not have a coefficient for race that conforms to the NKF-ASN Task Force Recommendations. Performed By: #### 4 [id number] #### LAB [address] [address] Guerrero Barnett M.D. [id number] Chloride [Moles/Vol] 103 mmol/L Normal 98-108 [facility] Comment on above: Order Comment: [facility] has implemented the eGFR calculation approach that does not have a coefficient for race that conforms to the NKF-ASN Task Force Recommendations. Performed By: #### 4 [id number] #### LAB [address] [address] Guerrero Barnett M.D. [id number] Creatinine [Mass/Vol] 0.64 mg/dL Normal 0.40-1.10 [facility] Comment on above: Order Comment: [facility] has implemented the eGFR calculation approach that does not have a coefficient for race that conforms to the NKF-ASN Task Force Recommendations. Performed By: #### 4 [id number] #### LAB [address] [address] Guerrero Barnett M.D. [id number] EGFR 123 mL/min/1.73 m2 Normal >=60 [facility] Comment on above: Order Comment: [facility] has implemented the eGFR calculation approach that does not have a coefficient for race that conforms to the NKF-ASN Task Force Recommendations. Result Comment: Taty mated GFR was calculated using the 2020 CKD-EPI creatinine equation. Performed By: #### 4 [id number] #### LAB [address] [address] Guerrero Barnett M.D. [id number] Glucose [Mass/Vol] 80 mg/dL Normal 65-99 [facility] Comment on above: Order Comment: [facility] has implemented the eGFR calculation approach that does not have a coefficient for race that conforms to the NKF-ASN Task Force Recommendations. Performed By: #### 4 [id number] #### LAB [address] [address] Guerrero Barnett M.D. [id number] HCO3 (Bld) [Moles/Vol] 27 mmol/L Normal 21-32 [facility] Comment on above: Order Comment: [facility] has implemented the eGFR calculation approach that does not have a coefficient for race that conforms to the NKF-ASN Task Force Recommendations. Performed By: #### 4 6126 #### LAB [address] [address] Guerrero Barnett M.D. [id number] Potassium [Moles/Vol] 4.5 mmol/L Normal 3.5-5.1 [facility] Comment on above: Order Comment: [facility] has implemented the eGFR calculation approach that does not have a coefficient for race that conforms to the NKF-ASN Task Force Recommendations. Performed By: #### 4 6138 #### LAB [address] [address] Guerrero Barnett M.D. [id number] Protein [Mass/Vol] 7.5 g/dL Normal 6.0-8.0 [facility] Comment on above: Order Comment: [facility] has implemented the eGFR calculation approach that does not have a coefficient for race that conforms to the NKF-ASN Task Force Recommendations. Performed By: #### 4 [id number] #### LAB [address] [id number] Guerrero Barnett M.D. [id number] Sodium [Moles/Vol] 141 mmol/L Normal 135-145 [facility] Comment on above: Order Comment: [facility] has implemented the eGFR calculation approach that does not have a coefficient for race that conforms to the NKF-ASN Task Force Recommendations. Performed By: #### 4 6126 #### LAB [address] [address] Guerrero Barnett M.D. [id number] Urea nitrogen [Mass/Vol] 9 mg/dL Normal 8-25 [facility] Comment on above: Order Comment: [facility] has implemented the eGFR calculation approach that does not have a coefficient for race that conforms to the NKF-ASN Task Force Recommendations. Performed By: #### 4 6126 #### LAB [address] [address] Guerrero Barnett M.D. [id number] Urea nitrogen/Creatinine [Mass ratio] 14.1 mg/mg Normal 10.0-20.0 [facility] Comment on above: Order Comment: [facility] has implemented the eGFR calculation approach that does not have a coefficient for race that conforms to the NKF-ASN Task Force Recommendations. Performed By: #### 4 6126 #### LAB [address] [address] Guerrero Barnett M.D. [id number] HEMOGLOBIN A1Con 06-15-2024 Glucose [Mass/Vol] 111 mg/dL Normal 74-114 [facility] Comment on above: Performed By: #### 4 8202 #### LAB [address] [id number] Guerrero Barnett M.D. [id number] HbA1c (Bld) [Mass fraction] 5.5 % Normal 4.2-5.6 [facility] Comment on above: Performed By: #### 4 8202 #### LAB [address] [address] Guerrero Barnett M.D. [id number] LIPID PANELon 06-15-2024 Cholesterol [Mass/Vol] 200 mg/dL High 100-199 [facility] Comment on above: Performed By: #### 4 6087 #### LAB [address] [id number] Guerrero Barnett M.D. [id number] Cholesterol in HDL [Mass/Vol] 49 mg/dL Normal 40-59 [facility] Comment on above: Performed By: #### 4 6087 #### LAB [address] [address] Guerrero Barnett M.D. [id number] Cholesterol.total/Ch olesterol in HDL [Mass ratio] 4.1 {ratio} Normal [facility] Comment on above: Result Comment: Fema le Cholesterol/HDL Ratio: Average risk: 4.4 1/2 average risk: 3.3 2 x average risk: 7.1 Performed By: #### 4 6087 #### LAB [address] [address] Guerrero Barnett M.D. [id number] LDL CHOLESTEROL CALCULATED 121 mg/dL Normal 10-130 [facility] Comment on above: Result Comment: [facility] [employer] Guidelines: LDL Cholesterol Optimal: <100 mg/dL Near Optimal/above Optimal: 100-129 mg/dL Borderline High: 130-159 mg/dL High: 160-189 mg/dL Very High: greater than or equal to 190 mg/dL Performed By: #### 4 6087 #### LAB [address] [address] Guerrero Barnett M.D. [id number] NON HDL CHOL 151 mg/dL Normal [facility] Comment on above: Result Comment: [facility] [employer] [employer] Guidelines: NON HDL Cholesterol Desirable: <130 mg/dL Borderline High: 130-159 mg/dL High: 160-189 mg/dL Very High: > or = 190 mg/dL Performed By: #### 4 6087 #### LAB [address] [place], [place] [address] Guerrero Barnett M.D. [id number] Triglyceride [Mass/Vol] 150 mg/dL Normal 30-150 [facility] Comment on above: Performed By: #### 4 6087 #### LAB [address] [address] Guerrero Barnett M.D. [id number] T4, FREEon 06-15-2024 Free T4 [Mass/Vol] 1.4 ng/dL Normal 0.7-1.7 [facility] Comment on above: Performed By: #### 4 6567 #### LAB [address] [address] Guerrero Barnett M.D. [id number] TSHon 06-15-2024 TSH Qn 0.94 m[IU]/L Normal 0.27-4.20 [facility] Comment on above: Performed By: #### 4 6613 #### LAB [address] [address] Guerrero Barnett M.D. [id number] VITAMIN D, TOTAL, 25-OHon VITAMIN D 25-HYDROXY 42 ng/mL Normal 20-100 [facility] Comment on above: Order Comment: Vitam in D Expected Values Deficiency: 0-10 Insufficiency: 10-20 Sufficient: 20-100 Toxicity: >100 Performed By: #### 4 6678 #### LAB [address] [address] Guerrero Barnett M.D. [id number] B12/FOLATEon 04-25-2024 Cobalamin (Vitamin B12) [Mass/Vol] 583 pg/mL Normal 232-1245 [facility] Comment on above: Performed By: #### 4 6967 #### LAB [address] [address] Guerrero Barnett M.D. [id number] FOLATE > High 3.1-17.5 [facility] Comment on above: Result Comment: Defi cient <2.2 Borderline 2.2 - 3.0 Excessive >17.5 Performed By: #### 4 6967 #### LAB [address] [address] Guerrero Barnett M.D. [id number] CBC WITH AUTO DIFFERENTIALon 04-25-2024 AUTO NRBC 0.0 % Normal [facility] Comment on above: Performed By: #### L [id number] #### LAB [address] [address] Guerrero Barnett M.D. [id number] AUTO NRBC ABS COUNT 0.00 K/mcL Normal 0.00-0.00 [facility] Comment on above: Performed By: #### L [id number] #### LAB [address] [address] Guerrero Barnett M.D. [id number] BASOPHILS ABSOLUTE COUNT 0.06 K/mcL Normal 0.00-0.30 [facility] Comment on above: Performed By: #### L [id number] #### LAB [address] [address] Guerrero Barnett M.D. [id number] Basophils/100 WBC (Bld) 0.8 % [facility] Comment on above: Performed By: #### L [id number] #### LAB [address] [address] Guerrero Barnett M.D. [id number] Eosinophils (Bld) [#/Vol] 0.16 10*3/uL Normal 0.00-0.50 [facility] Comment on above: Performed By: #### L [id number] #### LAB [address] [place] [address] Guerrero Barnett M.D. [id number] Eosinophils/100 WBC (Bld) 2.1 % Normal [facility] Comment on above: Performed By: #### L [id number] #### LAB [address] [address] Guerrero Barnett M.D. [id number] Erythrocyte distribution width (RBC) [Ratio] 13.2 % Normal 11.6-14.8 [facility] Comment on above: Performed By: #### L [id number] #### LAB [address] [place] [address] Guerrero Barnett M.D. [id number] Hematocrit (Bld) [Volume fraction] 39.8 % Normal 36.0-46.0 [facility] Comment on above: Performed By: #### L [id number] #### LAB [address] [address] Guerrero Barnett M.D. [id number] Hemoglobin (Bld) [Mass/Vol] 13.0 g/dL Normal 12.0-16.0 [facility] Comment on above: Performed By: #### L [id number] #### LAB [address] [address] Guerrero Barnett M.D. [id number] IG ABSOLUTE 0.04 K/mcL Normal 0.00-0.30 [facility] Comment on above: Performed By: #### L [id number] #### LAB [address] [address] Guerrero Barnett M.D. [id number] IG PERCENT 0.50 % [facility] Comment on above: Result Comment: The IG parameter is the percentage of metamyelocytes, myelocytes and promyelocytes. An immature granulocyte count (IG) of 1% or more suggests the possibility of infection, an IG count of 3% is very likely related to an infection. Performed By: #### L [id number] #### LAB [address] [address] Guerrero Barnett M.D. [id number] Lymphocytes (Bld) [#/Vol] 2.69 10*3/uL Normal 0.90-4.00 [facility] Comment on above: Performed By: #### L [id number] #### LAB [address] [address] Guerrero Barnett M.D. [id number] Lymphocytes/100 WBC (Bld) 34.7 % Normal [facility] Comment on above: Performed By: #### L [id number] #### LAB [address] [address] Guerrero Barnett M.D. [id number] MCH (RBC) [Entitic mass] 29.3 pg Normal 26.0-34.0 [facility] Comment on above: Performed By: #### L [id number] #### LAB [address] [address] Guerrero Barnett M.D. [id number] MCV (RBC) [Entitic vol] 89.8 fL Normal 80.0-100.0 [facility] Comment on above: Performed By: #### L [id number] #### LAB [address] [address] Guerrero Barnett M.D. [id number] MEAN CORPUSCULAR HEMOGLOBIN CONC 32.7 g/dL Normal 31.0-37.0 [facility] Comment on above: Performed By: #### L [id number] #### LAB [address] [address] Guerrero Barnett M.D. [id number] Monocytes (Bld) [#/Vol] 0.67 10*3/uL Normal 0.30-0.90 [facility] Comment on above: Performed By: #### L [id number] #### LAB [address] [address] Guerrero Barnett M.D. [id number] Monocytes/100 WBC (Bld) 8.6 % Normal [facility] Comment on above: Performed By: #### L [id number] #### LAB [address] [address] Guerrero Barnett M.D. [id number] NEUTROPHILS ABSOLUTE COUNT 4.14 K/mcL Normal 1.70-7.00 [facility] Comment on above: Performed By: #### L [id number] #### LAB [address] [address] Guerrero Barnett M.D. [id number] Neutrophils/100 WBC (Bld) 53.3 % Normal [facility] Comment on above: Performed By: #### L [id number] #### MH LAB [address] [address] Guerrero Barnett M.D. [id number] Platelet mean volume (Bld) [Entitic vol] 9.6 fL Normal 9.4-12.4 [facility] Comment on above: Performed By: #### L [id number] #### LAB [address] [address] Guerrero Barnett M.D. [id number] Platelets (Bld) [#/Vol] 353 10*3/uL Normal 150-400 [facility] Comment on above: Performed By: #### L [id number] #### LAB [address] [address] Guerrero Barnett M.D. [id number] RBC (Bld) [#/Vol] 4.43 10*6/uL Normal 4.00-5.20 [facility] Comment on above: Performed By: #### L [id number] #### LAB [address] [address] Guerrero Barnett M.D. [id number] WBC (Bld) [#/Vol] 7.76 10*3/uL Normal 4.50-11.00 [facility] Comment on above: Performed By: #### L [id number] #### LAB [address] [address] Guerrero Barnett M.D. [id number] IRON STUDY WITH FERRITINon 0 - Ferritin [Mass/Vol] 94 ng/mL Normal 13-150 [facility] Comment on above: Performed By: #### 4 7645 #### LAB [address] [address] Guerrero Barnett M.D. [id number] Iron [Mass/Vol] 85 ug/dL Normal 30-160 [facility] Comment on above: Performed By: #### 4 7645 #### MH LAB [address] [address] Guerrero Barnett M.D. [id number] IRON SATURATION 22 % Normal 20-50 [facility] Comment on above: Performed By: #### 4 7645 #### MH LAB [address] [address] Guerrero Barnett M.D. [id number] TIBC (CALCULATED) 388 mcg/dL Normal 225-430 [facility] Comment on above: Performed By: #### 4 7645 #### [facility] [address] [facility] [place] [place] [address] Guerrero Barnett M.D. [id number] 25 0H VITAMIN D LEVELon 04- 25 0H VITAMIN D LEVEL 59.1 NG/ML Normal [facility] Comment on above: Result Comment: DEFICIENT <20 NG/ML INSUFFICIENT 20-<30 NG/ML SUFFICIENT 30-100 NG/ML POTENTIAL TOXICITY >100 NG/ML Performed By: #### F X, CMPF, LIP2, ACBC, TSH2 #### Testing performed at [address] [address] CBCon 12-13-2023 ABSOLUTE BAS 0.0 10*3/uL Normal 0.0-0.2 [facility] Comment on above: Performed By: #### F X, CMPF, LIP2, ACBC, TSH2 #### Testing performed at [address] [address] ABSOLUTE EOS 0.1 10*3/uL Normal 0.0-0.7 [facility] Comment on above: Performed By: #### F X, CMPF, LIP2, ACBC, TSH2 #### Testing performed at [address] [address] ABSOLUTE NEUTROPHIL COUNT 4.2 10*3/uL Normal 1.4-6.5 [facility] Comment on above: Performed By: #### F X, CMPF, LIP2, ACBC, TSH2 #### Testing performed at [address] [address] Basophils/100 WBC (Bld) 0.2 % Normal 0.0-2.0 [facility] Comment on above: Performed By: #### F X, CMPF, LIP2, ACBC, TSH2 #### Testing performed at [address] [address] DTYPE AUTO DIFF Normal [facility] Comment on above: Performed By: #### F X, CMPF, LIP2, ACBC, TSH2 #### Testing performed at [address] [place] [address] Eosinophils/100 WBC (Bld) 0.8 % Normal 0.0-11.0 [facility] Comment on above: Performed By: #### F X, CMPF, LIP2, ACBC, TSH2 #### Testing performed at [address] [address] Lymphocytes (Bld) [#/Vol] 2.2 10*3/uL Normal 1.2-3.4 [facility] Comment on above: Performed By: #### F X, CMPF, LIP2, ACBC, TSH2 #### Testing performed at [address] [address] Lymphocytes/100 WBC (Bld) 31.4 % Normal 20.0-55.0 [facility] Comment on above: Performed By: #### F X, CMPF, LIP2, ACBC, TSH2 #### Testing performed at [address] [address] Monocytes (Bld) [#/Vol] 0.5 10*3/uL Normal 0.0-0.7 [facility] Comment on above: Performed By: #### F X, CMPF, LIP2, ACBC, TSH2 #### Testing performed at [address] [address] Monocytes/100 WBC (Bld) 7.1 % Normal 0.0-10.0 [facility] Comment on above: Performed By: #### F X, CMPF, LIP2, ACBC, TSH2 #### Testing performed at [address] [address] Neutrophils/100 WBC (Bld) 60.5 % Normal 37.0-75.0 [facility] Comment on above: Performed By: #### F X, CMPF, LIP2, ACBC, TSH2 #### Testing performed at [address] [address] Erythrocyte distribution width (RBC) [Ratio] 13.8 % Normal 11.5-14.5 [facility] Comment on above: Performed By: #### F X, CMPF, LIP2, ACBC, TSH2 #### Testing performed at [address] [address] Hematocrit (Bld) [Volume fraction] 39.4 % Normal 36.0-48.0 [facility] Comment on above: Performed By: #### F X, CMPF, LIP2, ACBC, TSH2 #### Testing performed at [address] [address] Hemoglobin (Bld) [Mass/Vol] 13.5 g/dL Normal 12.0-16.0 [facility] Comment on above: Performed By: #### F X, CMPF, LIP2, ACBC, TSH2 #### Testing performed at [address] [address] MCH (RBC) [Entitic mass] 29.2 pg Normal 26.0-35.0 [facility] Comment on above: Performed By: #### F X, CMPF, LIP2, ACBC, TSH2 #### Testing performed at [address] [address] MCHC (RBC) [Mass/Vol] 34.2 g/dL Normal 27.0-37.0 [facility] Comment on above: Performed By: #### F X, CMPF, LIP2, ACBC, TSH2 #### Testing performed at [address] [address] MCV (RBC) [Entitic vol] 85.4 fL Normal 80.0-100.0 [facility] Comment on above: Performed By: #### F X, CMPF, LIP2, ACBC, TSH2 #### Testing performed at [address] [address] Platelet mean volume (Bld) [Entitic vol] 8.3 fL Normal 7.4-11.0 [facility] Comment on above: Performed By: #### F X, CMPF, LIP2, ACBC, TSH2 #### Testing performed at [address] [address] Platelets (Bld) [#/Vol] 270 10*3/uL Normal 130-400 [facility] Comment on above: Performed By: #### F X, CMPF, LIP2, ACBC, TSH2 #### Testing performed at [address] [address] RBC (Bld) [#/Vol] 4.61 10*6/uL Normal 4.0-5.4 [facility] Comment on above: Performed By: #### F X, CMPF, LIP2, ACBC, TSH2 #### Testing performed at [address] [address] WBC (Bld) [#/Vol] 7.0 10*3/uL Normal 3.6-11.0 [facility] Comment on above: Performed By: #### F X, CMPF, LIP2, ACBC, TSH2 #### Testing performed at [address] [address] CMP FASTINGon 12-13-2023 A:G RATIO 2.0 RATIO Normal [facility] Comment on above: Performed By: #### F X, CMPF, LIP2, ACBC, TSH2 #### Testing performed at [address] [address] ALBUMIN 5.0 G/dl Normal 3.5-5.0 [facility] Comment on above: Performed By: #### F X, CMPF, LIP2, ACBC, TSH2 #### Testing performed at [address] [address] ALP [Catalytic activity/Vol] 83 U/L Normal 38-126 [facility] Comment on above: Performed By: #### F X, CMPF, LIP2, ACBC, TSH2 #### Testing performed at [address] [address] ALT [Catalytic activity/Vol] 45 U/L High <35 [facility] Comment on above: Performed By: #### F X, CMPF, LIP2, ACBC, TSH2 #### Testing performed at [address] [address] AST [Catalytic activity/Vol] 33 U/L Normal 14-36 [facility] Comment on above: Performed By: #### F X, CMPF, LIP2, ACBC, TSH2 #### Testing performed at [address] [address] Bilirubin [Mass/Vol] 0.4 mg/dL Normal 0.2-1.3 [facility] Comment on above: Performed By: #### F X, CMPF, LIP2, ACBC, TSH2 #### Testing performed at [address] [address] Calcium [Mass/Vol] 9.0 mg/dL Normal 8.4-10.2 [facility] Comment on above: Performed By: #### F X, CMPF, LIP2, ACBC, TSH2 #### Testing performed at [address] [address] Chloride [Moles/Vol] 105 mmol/L Normal 98-107 [facility] Comment on above: Result Comment: Logan lenz note: Triglyceride levels of 600mg/dL or higher may positively bias chloride results by approximately 2.1 mmol Performed By: #### F X, CMPF, LIP2, ACBC, TSH2 #### Testing performed at [address] [address] CO2 [Moles/Vol] 25 mmol/L Normal 22-30 [facility] Comment on above: Performed By: #### F X, CMPF, LIP2, ACBC, TSH2 #### Testing performed at [address] [address] Creatinine [Mass/Vol] 0.60 mg/dL Low 0.70-1.20 [facility] Comment on above: Performed By: #### F X, CMPF, LIP2, ACBC, TSH2 #### Testing performed at [address] [address] EST. GFR, 153 ml/min/1.73sq.m [facility] Comment on above: Performed By: #### F X, CMPF, LIP2, ACBC, TSH2 #### Testing performed at [address] [address] EST. GFR,Non 127 ml/min/1.73sq.m [facility] Comment on above: Performed By: #### F X, CMPF, LIP2, ACBC, TSH2 #### Testing performed at [address] [address] GFR Information Average GFR for 20-29 years old = 116. Normal [facility] Comment on above: Result Comment: Director Title iram Kidney disease, GFR = <60. Kidney failure, GFR = <15. The GFR estimate is not adjusted for extreme body surface area or acute process, nor has it been validated for women or ethnic groups other than and . Performed By: #### F X, CMPF, LIP2, ACBC, TSH2 #### Testing performed at [address] [address] Glucose [Mass/Vol] 108 mg/dL High 70-100 [facility] Comment on above: Result Comment: NORMAL <100 mg/dL PREDIABETES 101-126 mg/dL DIABETES 126 mg/dL or higher Performed By: #### F X, CMPF, LIP2, ACBC, TSH2 #### Testing performed at [address] [address] Potassium [Moles/Vol] 4.1 mmol/L Normal 3.5-5.1 [facility] Comment on above: Performed By: #### F X, CMPF, LIP2, ACBC, TSH2 #### Testing performed at [address] [address] Protein [Mass/Vol] 7.5 g/dL Normal 6.3-8.2 [facility] Comment on above: Performed By: #### F X, CMPF, LIP2, ACBC, TSH2 #### Testing performed at [address] [address] Sodium [Moles/Vol] 139 mmol/L Normal 137-145 [facility] Comment on above: Performed By: #### F X, CMPF, LIP2, ACBC, TSH2 #### Testing performed at [address] [address] Urea nitrogen [Mass/Vol] 10 mg/dL Normal 7-20 [facility] Comment on above: Performed By: #### F X, CMPF, LIP2, ACBC, TSH2 #### Testing performed at [address] [address] FAX REQUESTon 12-13-2023 FAX TO [phone] Normal [facility] Comment on above: Performed By: #### F X, CMPF, LIP2, ACBC, TSH2 #### Testing performed at [address] [address] FREE T4on 12-13-2023 Free T4 [Mass/Vol] 1.06 ng/dL Normal 0.78-2.19 [facility] Comment on above: Performed By: #### T 42, VITD #### Testing performed at [address] [address] HEMOGLOBIN A1Con 12-13-2023 Glucose [Mass/Vol] 108 mg/dL Normal [facility] Comment on above: Performed By: #### H A1CT #### Testing performed at [address] [address] HbA1c (Bld) [Mass fraction] 5.4 % Normal 0-6 [facility] Comment on above: Result Comment: NORMAL <5.7% PREDIABETES 5.7-6.4% DIABETES 6.5% OR HIGHER Performed By: #### H A1CT #### Testing performed at [address] [address] LIPID PROFILEon 12-13-2023 Cholesterol [Mass/Vol] 186 mg/dL Normal 107-217 [facility] Comment on above: Performed By: #### F X, CMPF, LIP2, ACBC, TSH2 #### Testing performed at [address] [address] Cholesterol in HDL [Mass/Vol] 40 mg/dL Normal 33-75 [facility] Comment on above: Performed By: #### F X, CMPF, LIP2, ACBC, TSH2 #### Testing performed at [address] [address] Cholesterol in LDL [Mass/Vol] 126 mg/dL High <100 [facility] Comment on above: Performed By: #### F X, CMPF, LIP2, ACBC, TSH2 #### Testing performed at [address] [address] Cholesterol in VLDL [Mass/Vol] 20 mg/dL Normal 5-25 [facility] Comment on above: Performed By: #### F X, CMPF, LIP2, ACBC, TSH2 #### Testing performed at [address] [address] Cholesterol.total/Ch olesterol in HDL [Mass ratio] 4.65 {ratio} Normal [facility] Comment on above: Result Comment: RISK TOTAL/HDL RATIO MEN WOMEN 1/2 AVERAGE 3.43 3.27 AVERAGE 4.97 4.44 2X AVERAGE 9.55 7.05 3X AVERAGE 23.99 11.04 Performed By: #### F X, CMPF, LIP2, ACBC, TSH2 #### Testing performed at [address] [address] Triglyceride [Mass/Vol] 101 mg/dL Normal 0-150 [facility] Comment on above: Performed By: #### F X, CMPF, LIP2, ACBC, TSH2 #### Testing performed at [address] [address] TSHon 12-13-2023 TSH 1.080 uIU/ML Normal 0.465-4.680 [facility] Comment on above: Performed By: #### F X, CMPF, LIP2, ACBC, TSH2 #### Testing performed at [address] [address] POCT INFLUENZA, A Bon 2023 FLUAV RNA NELLY+probe Ql (Unsp spec) Negative Negative, Not Tested, Invalid, Not Detected [facility] FLUBV RNA NELLY+probe Ql (Unsp spec) Negative Negative, Not Tested, Invalid, Not Detected [facility] Internal controls [place] [facility] POCT RAPID STREP Aon 024 S. pyogenes Ag Ql (Throat) Negative (+/-) [facility] Internal controls [facility] THROAT CULTUREon 12-07-2023 Throat culture SPECIMEN DESCRIPTION THROAT SWAB CULTURE USUAL OROPHARYNGEAL RAJAN * Result Note: Testing performed at [place], [place] [address] * REPORT STATUS 12/09/2023 * Result Note: FINAL * Normal [facility] Comment on above: Performed By: #### T HRC #### Testing performed at [address] [place] [address] PAP IG,RFX HPV ASCUon 2023 . . Normal [facility] . Comment [facility] Comment on above: Result Comment: (NOT E) The HPV DNA reflex criteria were not met with this specimen result therefore, no HPV testing was performed. Source.............Cervix;Endocervix LMP / Prev Treat...NKK=[id number] No. of containers..01 ThinPrep Vial DIAGNOSIS: Comment [facility] Comment on above: Result Comment: NEGA TIVE FOR INTRAEPITHELIAL LESION OR MALIGNANCY. NOTE: Comment [facility] Comment on above: Result Comment: (NOT E) The Pap smear is a screening test designed to aid in the detection of premalignant and malignant conditions of the uterine cervix. It is not a diagnostic procedure and should not be used as the sole means of detecting cervical cancer. Both false-positive and false-negative reports do occur. PERFORMED BY: Comment [facility] Comment on above: Result Comment: Yadira Palacio Dude Ranch Manager (ASCP) SPECIMEN ADEQUACY: Comment [facility] Comment on above: Result Comment: (NOT E) Satisfactory for evaluation. Endocervical and/or squamous metaplastic cells (endocervical component) are present. TEST METHODOLOGY: Comment [facility] Comment on above: Result Comment: (NOT E) This liquid based ThinPrep(R) pap test was screened with the use of an image guided system. PERFORMED AT [facility] POCT INFLUENZA, A Bon 2023 FLUAV RNA NELLY+probe Ql (Unsp spec) Negative Negative, Not Tested, Invalid [facility] FLUBV RNA NELLY+probe Ql (Unsp spec) Negative Negative, Not Tested, Invalid [facility] Internal controls [place] [facility] SARS-COV-2 RAPID AG (WIC)on 09-29-2023 SARS-CoV-2 (COVID-19) RNA NELLY+probe Ql (Unsp spec) Not detected Normal NOT DETECTED [facility] Comment on above: Result Comment: Nega tive results should be treated as presumptive and confirmation with a molecular assay, if necessary, for patient management, may be performed. Negative results do not rule out SARSCoV-2 infection and should not be used as the sole basis for treatment or patient management decisions, including infection control decisions. Negative results should be considered in the context of a patient's recent exposures, history and the presence of clinical signs and symptoms consistent with COVID-19. Performed By: #### F X, CMPF, LIP2, ACBC, TSH2 #### [place] [address] NARRATIVE This test was performed using lateral flow immunoassay and has been approved as Emergency Use Authorization (EUA). This test does not differentiate between SARS-CoV and SARS-CoV2. Normal [facility] Comment on above: Performed By: #### F X, CMPF, LIP2, ACBC, TSH2 #### Testing performed at [place] [id number] SARS-CoV-2 (COVID-19) RNA NA A+probe Ql (Unsp spec)on 09-29-2023 NARRATIVE -1 This test was performed using lateral flow immunoassay and has been approved as Emergency Use Authorization (EUA). This test does not differentiate between SARS-CoV and SARS-CoV2. [facility] SARS-CoV-2 (COVID-19) Ag IA.rapid Ql (Resp) Not detected NOT DETECTED [facility] Comment on above: Negative results kalin uld be treated as presumptive and confirmation with a molecular assay, if necessary, for patient management, may be performed. Negative results do not rule out SARSCoV-2 infection and should not be used as the sole basis for treatment or patient management decisions, including infection control decisions. Negative results should be considered in the context of a patient's recent exposures, history and the presence of clinical signs and symptoms consistent with COVID-19. [facility] TESTOSTERONE, FREEon 023 FREE TESTOSTERONE 3.1 Normal [facility] Comment on above: Result Comment: Refe rence range: 0.0 to 4.2 Unit: pg/mL PERFORMED AT [facility] Performed By: #### F X, CMPF, LIP2, ACBC, TSH2 #### Testing performed at [place] [id number] DHEA-SULFATEon 07-10-2023 DHEA-SULFATE 632.0 High [facility] Comment on above: Result Comment: Refe rence range: 84.8 to 378.0 Unit: ug/dL PERFORMED AT [facility] Performed By: #### F X, CMPF, LIP2, ACBC, TSH2 #### Testing performed at [address] [address] 25 0H VITAMIN D LEVELon 06-14 25 0H VITAMIN D LEVEL 61.1 NG/ML Normal [facility] Comment on above: Result Comment: DEFICIENT <20 NG/ML INSUFFICIENT 20-<30 NG/ML SUFFICIENT 30-100 NG/ML POTENTIAL TOXICITY >100 NG/ML Performed By: #### V ITD #### Testing performed at [address] [address] CBCon 07-09-2023 ABSOLUTE BAS 0.1 10*3/uL Normal 0.0-0.2 [facility] Comment on above: Performed By: #### F X, CMPF, LIP2, ACBC, TSH2 #### Testing performed at [address] [address] ABSOLUTE EOS 0.2 10*3/uL Normal 0.0-0.7 [facility] Comment on above: Performed By: #### F X, CMPF, LIP2, ACBC, TSH2 #### Testing performed at [address] [address] ABSOLUTE NEUTROPHIL COUNT 3.9 10*3/uL Normal 1.4-6.5 [facility] Comment on above: Performed By: #### F X, CMPF, LIP2, ACBC, TSH2 #### Testing performed at [address] [address] Basophils/100 WBC (Bld) 1.1 % Normal 0.0-2.0 [facility] Comment on above: Performed By: #### F X, CMPF, LIP2, ACBC, TSH2 #### Testing performed at [address] [address] DTYPE AUTO DIFF Normal [facility] Comment on above: Performed By: #### F X, CMPF, LIP2, ACBC, TSH2 #### Testing performed at [address] [address] Eosinophils/100 WBC (Bld) 2.5 % Normal 0.0-11.0 [facility] Comment on above: Performed By: #### F X, CMPF, LIP2, ACBC, TSH2 #### Testing performed at [address] [address] Lymphocytes (Bld) [#/Vol] 2.2 10*3/uL Normal 1.2-3.4 [facility] Comment on above: Performed By: #### F X, CMPF, LIP2, ACBC, TSH2 #### Testing performed at [address] [address] Lymphocytes/100 WBC (Bld) 32.1 % Normal 20.0-55.0 [facility] Comment on above: Performed By: #### F X, CMPF, LIP2, ACBC, TSH2 #### Testing performed at [address] [address] Monocytes (Bld) [#/Vol] 0.6 10*3/uL Normal 0.0-0.7 [facility] Comment on above: Performed By: #### F X, CMPF, LIP2, ACBC, TSH2 #### Testing performed at [address] [address] Monocytes/100 WBC (Bld) 8.0 % Normal 0.0-10.0 [facility] Comment on above: Performed By: #### F X, CMPF, LIP2, ACBC, TSH2 #### Testing performed at [address] [address] Neutrophils/100 WBC (Bld) 56.3 % Normal 37.0-75.0 [facility] Comment on above: Performed By: #### F X, CMPF, LIP2, ACBC, TSH2 #### Testing performed at [address] [address] Erythrocyte distribution width (RBC) [Ratio] 13.6 % Normal 11.5-14.5 [facility] Comment on above: Performed By: #### F X, CMPF, LIP2, ACBC, TSH2 #### Testing performed at [address] [address] Hematocrit (Bld) [Volume fraction] 43.1 % Normal 36.0-48.0 [facility] Comment on above: Performed By: #### F X, CMPF, LIP2, ACBC, TSH2 #### Testing performed at [address] [address] Hemoglobin (Bld) [Mass/Vol] 14.2 g/dL Normal 12.0-16.0 [facility] Comment on above: Performed By: #### F X, CMPF, LIP2, ACBC, TSH2 #### Testing performed at [address] [address] MCH (RBC) [Entitic mass] 28.5 pg Normal 26.0-35.0 [facility] Comment on above: Performed By: #### F X, CMPF, LIP2, ACBC, TSH2 #### Testing performed at [address] [address] MCHC (RBC) [Mass/Vol] 33.0 g/dL Normal 27.0-37.0 [facility] Comment on above: Performed By: #### F X, CMPF, LIP2, ACBC, TSH2 #### Testing performed at [address] [address] MCV (RBC) [Entitic vol] 86.3 fL Normal 80.0-100.0 [facility] Comment on above: Performed By: #### F X, CMPF, LIP2, ACBC, TSH2 #### Testing performed at [address] [address] Platelet mean volume (Bld) [Entitic vol] 7.5 fL Normal 7.4-11.0 [facility] Comment on above: Performed By: #### F X, CMPF, LIP2, ACBC, TSH2 #### Testing performed at [address] [address] Platelets (Bld) [#/Vol] 320 10*3/uL Normal 130-400 [facility] Comment on above: Performed By: #### F X, CMPF, LIP2, ACBC, TSH2 #### Testing performed at [address] [address] RBC (Bld) [#/Vol] 5.00 10*6/uL Normal 4.0-5.4 [facility] Comment on above: Performed By: #### F X, CMPF, LIP2, ACBC, TSH2 #### Testing performed at [address] [address] WBC (Bld) [#/Vol] 6.9 10*3/uL Normal 3.6-11.0 [facility] Comment on above: Performed By: #### F X, CMPF, LIP2, ACBC, TSH2 #### Testing performed at [address] [address] CMP FASTINGon 07-09-2023 A:G RATIO 1.6 RATIO Normal [facility] Comment on above: Performed By: #### F X, CMPF, LIP2, ACBC, TSH2 #### Testing performed at [address] [address] ALBUMIN 4.9 G/dl Normal 3.5-5.0 [facility] Comment on above: Performed By: #### F X, CMPF, LIP2, ACBC, TSH2 #### Testing performed at [address] [address] ALP [Catalytic activity/Vol] 91 U/L Normal 38-126 [facility] Comment on above: Performed By: #### F X, CMPF, LIP2, ACBC, TSH2 #### Testing performed at [address] [address] ALT [Catalytic activity/Vol] 40 U/L High <35 [facility] Comment on above: Performed By: #### F X, CMPF, LIP2, ACBC, TSH2 #### Testing performed at [address] [address] AST [Catalytic activity/Vol] 34 U/L Normal 14-36 [facility] Comment on above: Performed By: #### F X, CMPF, LIP2, ACBC, TSH2 #### Testing performed at [address] [address] Bilirubin [Mass/Vol] 0.6 mg/dL Normal 0.2-1.3 [facility] Comment on above: Performed By: #### F X, CMPF, LIP2, ACBC, TSH2 #### Testing performed at [address] [address] Calcium [Mass/Vol] 9.3 mg/dL Normal 8.4-10.2 [facility] Comment on above: Performed By: #### F X, CMPF, LIP2, ACBC, TSH2 #### Testing performed at [address] [address] Chloride [Moles/Vol] 102 mmol/L Normal 98-107 [facility] Comment on above: Result Comment: Logan lenz note: Triglyceride levels of 600mg/dL or higher may positively bias chloride results by approximately 2.1 mmol Performed By: #### F X, CMPF, LIP2, ACBC, TSH2 #### Testing performed at [address] [address] CO2 [Moles/Vol] 25 mmol/L Normal 22-30 [facility] Comment on above: Performed By: #### F X, CMPF, LIP2, ACBC, TSH2 #### Testing performed at [address] [address] Creatinine [Mass/Vol] 0.70 mg/dL Normal 0.70-1.20 [facility] Comment on above: Performed By: #### F X, CMPF, LIP2, ACBC, TSH2 #### Testing performed at [address] [address] EST. GFR, 128 ml/min/1.73sq.m [facility] Comment on above: Performed By: #### F X, CMPF, LIP2, ACBC, TSH2 #### Testing performed at [address] [address] EST. GFR,Non 106 ml/min/1.73sq.m [facility] Comment on above: Performed By: #### F X, CMPF, LIP2, ACBC, TSH2 #### Testing performed at [address] [address] GFR Information Average GFR for 20-29 years old = 116. Normal [facility] Comment on above: Result Comment: Director Title iram Kidney disease, GFR = <60. Kidney failure, GFR = <15. The GFR estimate is not adjusted for extreme body surface area or acute process, nor has it been validated for women or ethnic groups other than and . Performed By: #### F X, CMPF, LIP2, ACBC, TSH2 #### Testing performed at [address] [address] Glucose [Mass/Vol] 90 mg/dL Normal 70-100 [facility] Comment on above: Result Comment: NORMAL <100 mg/dL PREDIABETES 101-126 mg/dL DIABETES 126 mg/dL or higher Performed By: #### F X, CMPF, LIP2, ACBC, TSH2 #### Testing performed at [address] [address] Potassium [Moles/Vol] 4.0 mmol/L Normal 3.5-5.1 [facility] Comment on above: Performed By: #### F X, CMPF, LIP2, ACBC, TSH2 #### Testing performed at [address] [address] Protein [Mass/Vol] 8.0 g/dL Normal 6.3-8.2 [facility] Comment on above: Performed By: #### F X, CMPF, LIP2, ACBC, TSH2 #### Testing performed at [address] [address] Sodium [Moles/Vol] 138 mmol/L Normal 137-145 [facility] Comment on above: Performed By: #### F X, CMPF, LIP2, ACBC, TSH2 #### Testing performed at [address] [address] Urea nitrogen [Mass/Vol] 12 mg/dL Normal 7-20 [facility] Comment on above: Performed By: #### F X, CMPF, LIP2, ACBC, TSH2 #### Testing performed at [address] [address] HEMOGLOBIN A1Con 07-09-2023 Glucose [Mass/Vol] 108 mg/dL Normal [facility] Comment on above: Performed By: #### H A1CT #### Testing performed at [address] [address] HbA1c (Bld) [Mass fraction] 5.4 % Normal 0-6 [facility] Comment on above: Result Comment: NORMAL <5.7% PREDIABETES 5.7-6.4% DIABETES 6.5% OR HIGHER Performed By: #### H A1CT #### Testing performed at [address] [address] TESTOSTER.FREE-TOTALon 04-08 FREE TESTOSTERONE 3.7 Normal [facility] Comment on above: Result Comment: Refe rence range: 0.0 to 4.2 Unit: pg[facility] Performed By: #### F X, CMPF, LIP2, ACBC, TSH2 #### Testing performed at [address] [address] DHEA-SULFATEon 04-02-2023 DHEA-SULFATE 573.0 High [facility] Comment on above: Result Comment: Refe rence range: 84.8 to 378.0 Unit: ug[facility] Performed By: #### F X, CMPF, LIP2, ACBC, TSH2 #### Testing performed at [address] [address] TESTOSTER.FREE-TOTALon 04-02 Testosterone [Mass/Vol] 46 ng/dL Normal [facility] Comment on above: Result Comment: Refe rence range: 13 to 71 Unit: ng[facility] Performed By: #### F X, CMPF, LIP2, ACBC, TSH2 #### Testing performed at [address] [address] 25 0H VITAMIN D LEVELon 03-14 25 0H VITAMIN D LEVEL 28.5 NG/ML Normal [facility] Comment on above: Result Comment: DEFICIENT <20 NG/ML INSUFFICIENT 20-<30 NG/ML SUFFICIENT 30-100 NG/ML POTENTIAL TOXICITY >100 NG/ML Performed By: #### V ITD #### Testing performed at [address] [address] CMP FASTINGon 04-01-2023 A:G RATIO 1.5 RATIO Normal [facility] Comment on above: Performed By: #### F X, CMPF, LIP2, ACBC, TSH2 #### Testing performed at [address] [address] ALBUMIN 4.7 G/dl Normal 3.5-5.0 [facility] Comment on above: Performed By: #### F X, CMPF, LIP2, ACBC, TSH2 #### Testing performed at [address] [address] ALP [Catalytic activity/Vol] 100 U/L Normal 38-126 [facility] Comment on above: Performed By: #### F X, CMPF, LIP2, ACBC, TSH2 #### Testing performed at [address] [address] ALT [Catalytic activity/Vol] 36 U/L High <35 [facility] Comment on above: Performed By: #### F X, CMPF, LIP2, ACBC, TSH2 #### Testing performed at [address] [address] AST [Catalytic activity/Vol] 31 U/L Normal 14-36 [facility] Comment on above: Performed By: #### F X, CMPF, LIP2, ACBC, TSH2 #### Testing performed at [address] [address] Bilirubin [Mass/Vol] 0.5 mg/dL Normal 0.2-1.3 [facility] Comment on above: Performed By: #### F X, CMPF, LIP2, ACBC, TSH2 #### Testing performed at [address] [address] Calcium [Mass/Vol] 9.5 mg/dL Normal 8.4-10.2 [facility] Comment on above: Performed By: #### F X, CMPF, LIP2, ACBC, TSH2 #### Testing performed at [place] [id number] Chloride [Moles/Vol] 100 mmol/L Normal 98-107 [facility] Comment on above: Result Comment: Logan lenz note: Triglyceride levels of 600mg/dL or higher may positively bias chloride results by approximately 2.1 mmol Performed By: #### F X, CMPF, LIP2, ACBC, TSH2 #### [place] [address] CO2 [Moles/Vol] 25 mmol/L Normal 22-30 [facility] Comment on above: Performed By: #### F X, CMPF, LIP2, ACBC, TSH2 #### [place] [address] Creatinine [Mass/Vol] 0.64 mg/dL Low 0.70-1.20 [facility] Comment on above: Performed By: #### F X, CMPF, LIP2, ACBC, TSH2 #### Testing performed at [place] [id number] EST. GFR, 142 ml/min/1.73sq.m [facility] Comment on above: Performed By: #### F X, CMPF, LIP2, ACBC, TSH2 #### Testing performed at [place] [id number] EST. GFR,Non 117 ml/min/1.73sq.m [facility] Comment on above: Performed By: #### F X, CMPF, LIP2, ACBC, TSH2 #### Testing performed at [place] [id number] GFR Information Average GFR for 20-29 years old = 116. Normal [facility] Comment on above: Result Comment: Director Title iram Kidney disease, GFR = <60. Kidney failure, GFR = <15. The GFR estimate is not adjusted for extreme body surface area or acute process, nor has it been validated for women or ethnic groups other than and . Performed By: #### F X, CMPF, LIP2, ACBC, TSH2 #### [place] [address] Glucose [Mass/Vol] 80 mg/dL Normal 70-100 [facility] Comment on above: Result Comment: NORMAL <100 mg/dL PREDIABETES 101-126 mg/dL DIABETES 126 mg/dL or higher Performed By: #### F X, CMPF, LIP2, ACBC, TSH2 #### Testing performed at [address] [address] Potassium [Moles/Vol] 4.2 mmol/L Normal 3.5-5.1 [facility] Comment on above: Performed By: #### F X, CMPF, LIP2, ACBC, TSH2 #### Testing performed at [address] [address] Protein [Mass/Vol] 7.8 g/dL Normal 6.3-8.2 [facility] Comment on above: Performed By: #### F X, CMPF, LIP2, ACBC, TSH2 #### Testing performed at [address] [address] Sodium [Moles/Vol] 139 mmol/L Normal 137-145 [facility] Comment on above: Performed By: #### F X, CMPF, LIP2, ACBC, TSH2 #### Testing performed at [address] [address] Urea nitrogen [Mass/Vol] 12 mg/dL Normal 7-20 [facility] Comment on above: Performed By: #### F X, CMPF, LIP2, ACBC, TSH2 #### Testing performed at [address] [address] FAX REQUESTon 04-01-2023 FAX TO [phone] Normal [facility] Comment on above: Performed By: #### F X, CMPF, LIP2, ACBC, TSH2 #### Testing performed at [address] [address] Provider Note - ED v3on 12-13 Provider Note - ED v3 Provider Note: Chart Review: ED NOTES ED NOTES: Ladonna is a 27 yo female presenting as a follow up to a visit from 12/31/22 for symptoms of cough, nasal and chest congestion, redness and drainage from bilateral eyes, Nasal congestion, headache and intense sore throat. She has been taking the penicillin as prescribed for possible strep. She reports that she was seen at another walkin clinic for worsening symptoms of cough and congestion. She was ordered prednisone. She is currently lactating. she expresses that her symptoms have worsened even from that visit in terms of the congestion and redness of bilateral eyes. She denies fever, chills, N, V, D. She is eating, drinking plenty of water and her sleep is interrupted with coughing. HISTORY OF PRESENTING ILLNESS DRAKE is a 27 year old Female and was seen by me at 07-Jan-2023 09:38. The historian is the patient. Triage Information: Most recent Vital Sign Value Date PAST MEDICAL HISTORY CURRENT OR FORMER SUBSTANCE USE: Tobacco/Nicotine Use: never smoker Alcohol Use: denies Drug Use: denies,ALLERGIES/INT OLERANCES: No Known Allergies HEALTH HISTORY: No documented data. OUTPATIENT MEDICATIONS: Home Medications Review Status for Reconciliation: Complete Med Status: Patient Currently Takes Medications Drug Name: vitamin Instructions: null Drug Name: Vitamin D3 Instructions: null Drug Name: penicillin V potassium 500 mg oral tablet Instructions: 1 tab(s) orally 2 times a day Drug Name: brompheniramine/dext romethorphan/pseudoe phedrine 2 mg-10 mg-30 mg/5 mL oral syrup Instructions: 5 milliliter(s) orally every 4 hours Drug Name: ciprofloxacin 0.3% ophthalmic solution Instructions: 2 drop(s) in each affected eye every 4 hours SIGNIFICANT EVENTS: No documented data. REVIEW OF SYSTEMS CONSTITUTIONAL: POSITIVE for: malaise Negative for: anorexia, chills, diaphoresis, fever, weakness and weight loss EYES: Negative for: lacrimation and pain ENMTEars: POSITIVE for: pain Negative for: itching Nose: POSITIVE for: congestion and discharge Negative for: sneezing Throat/Neck: POSITIVE for: throat pain Negative for: dysphagia and hoarseness CARDIOVASCULAR: Negative for: chest pain, orthopnea, palpitations and tachycardia RESPIRATORY: POSITIVE for: cough and dyspnea Negative for: wheezing GASTROINTESTINAL: Negative for: abdominal pain, constipation, diarrhea, nausea and vomiting; NEUROLOGICAL: POSITIVE for: headache; Negative for: dizziness; All other systems reviewed and are negative PHYSICAL EXAM CONSTITUTIONAL: Ill appearing, well nourished, awake, alert, oriented to person, place, time/situation and in no apparent distress. HENMT: Airway patent, ears with clear and opaque along the periphery & bulging tympanic membranes bilaterally. Nasal mucosa clear. Mouth with normal mucosa. Throat pink with left tonsil 2+ with small exudate has no vesicles, no oropharyngeal exudates and uvula is midline. Face with no lymph node enlargement. EYES: Clear bilaterally, pupils equal, round and reactive to light. Deep red color to sclera. CARDIOVASCULAR: Normal rate, regular rhythm. Heart sounds S1, S2. No murmurs, rubs or gallops. PMI non-displaced. RESPIRATORY: Breath sounds clear and equal bilaterally. No wheezing or rales. High trigger cough. CRITICAL CARE VITAL SIGNS: T PRBP SpO2O2(LPM) %FiO2 Method 07-Jan-2023 09:04:[id number] MDM MDM/ED COURSE: Ladonna is a 27 yo female evaluated for a viral infection and conjunctivitis. She was taking Penicillin for suspected strep due to enlarged tonsils with exudate and pain. With the expansion of symptoms and penicillin not working, her condition is likely viral. Advised to discontinue penicillin, continue the prednisone. Prescribed bromfed and drops for her conjunctivitis. Note provided for a day off Ladonna was agreeable with this plan of care and was discharged. DISPOSITION Diagnosis/Annotation : ED Dx Name:Conjunctivitis Code:H10.9 Name:URI (upper respiratory infection) Code:J06.9 Disposition: discharged CONSULT CRITICAL CARE TIME Is this a critically ill patient: no Electronic Signatures: Marie Mario (WEB ANALYTICS DEVELOPER-DECORATOR [employer]) (Signed 07-Jan-2023 11:49) Authored: ED Notes, HPI, PMH, ROS, PE, Results/Vital Signs, MDM/ED Course, Clinical Impression, Attestation, Chart Review, Scores Last Updated: 07-Jan-2023 11:49 by Marie Mario (WEB ANALYTICS DEVELOPER-DECORATOR [employer]) [facility] Provider Note - ED v3on - Provider Note - ED v3 Provider Note: Chart Review: ED NOTES ED NOTES: Drake is a 27 yo female presenting with a sore throat for 2 days. She reports that she has a 5-month-old boy who has been attending daycare. She has had congestion nasally and a cough for about 2 months since he has been in daycare. The sore throat started yesterday morning and became pretty intense last night. She said she was having a hard time swallowing her spit. She is breast-feeding. She did not treat her symptoms with any [id number] medications because she was afraid of breast-feeding. She is on vitamins and vitamin D. She is eating normally and drinks 3 to 4 - 40 ounce bottles of water daily. Sleeping has been rough for her. HISTORY OF PRESENTING ILLNESS DRAKE is a 27 year old Female and was seen by me at 31-Dec-2022 11:59. The historian is the patient. Triage Information: Most recent Vital Sign Value Date PAST MEDICAL HISTORY CURRENT OR FORMER SUBSTANCE USE: Tobacco/Nicotine Use: never smoker Alcohol Use: denies Drug Use: denies,ALLERGIES/INT OLERANCES: No Known Allergies HEALTH HISTORY: No documented data. OUTPATIENT MEDICATIONS: Home Medications Review Status for Reconciliation: Complete Med Status: Patient Currently Takes Medications Drug Name: vitamin Instructions: null Drug Name: Vitamin D3 Instructions: null SIGNIFICANT EVENTS: No documented data. REVIEW OF SYSTEMS CONSTITUTIONAL: Negative for: anorexia, chills, diaphoresis, fever, malaise, weakness and weight loss ENMTThroat/Neck: POSITIVE for: throat pain Negative for: dysphagia, hoarseness and throat lesions RESPIRATORY: Negative for: cough All other systems reviewed and are negative PHYSICAL EXAM CONSTITUTIONAL: Well appearing, well nourished, awake, alert, oriented to person, place, time/situation and in no apparent distress. HENMT: Airway patent, ears with clear tympanic membranes bilaterally. Nasal mucosa clear. Mouth with normal mucosa. Throat red with tonsils with small exudate marbled in the tonsilar crypts, has no vesicles, no oropharyngeal exudates and uvula is midline. Face with no lymph node enlargement. CRITICAL CARE VITAL SIGNS: T PRBP SpO2O2(LPM) %FiO2 Method 31-Dec-2022 11:12:[id number]/ [id number] [facility] MDM/ED COURSE: Drake is a 27-year-old female treated for strep pharyngitis. Considering her sons exposure to daycare and her symptoms, I will treat for strep pharyngitis. Use penicillin V potassium twice a day for 10 days. Advised her to treat her sinus congestion with nasal spray more frequently during the day as showers are helpful. Also advised that she can take Tylenol while breast-feeding. DISPOSITION Diagnosis/Annotation : ED Dx Name:Denys hurd Code:J03.90 Disposition: discharged CONSULT CRITICAL CARE TIME Is this a critically ill patient: no Electronic Signatures: Marie Mario (WEB ANALYTICS DEVELOPER-DECORATOR [employer]) (Signed 31-Dec-2022 12:09) Authored: ED Notes, HPI, PMH, ROS, PE, Results/Vital Signs, MDM/ED Course, Clinical Impression, Attestation, Chart Review, Scores Last Updated: 31-Dec-2022 12:09 by Marie Mario (WEB ANALYTICS DEVELOPER-DECORATOR [employer]) [facility] CBC, EDIF, PLATELETon 2021 ABSOLUTE BASOPHIL COUNT 0.1 10*3/uL 0.0 - 0.2 10*3/uL [facility] Comment on above: Testing performed at [facility], [place], [place] [address] Basophils/100 WBC (Bld) 0.4 % 0.0 - 2.0 % [facility] Differential cell count method Nom (Bld) AUTO DIFF % [facility] Eosinophils (Bld) [#/Vol] 0.1 10*3/uL 0.0 - 0.7 10*3/uL [facility] Eosinophils/100 WBC (Bld) 0.8 % 0.0 - 11.0 % [facility] Erythrocyte distribution width (RBC) [Ratio] 14.1 % 11.5 - 14.5 % [facility] Hematocrit (Bld) [Volume fraction] 35.1 % Low 36.0 - 48.0 % [facility] Hemoglobin (Bld) [Mass/Vol] 11.9 g/dL Low [facility] Interpretation and review of laboratory results Abnormal [facility] Lymphocytes (Bld) [#/Vol] 2.2 10*3/uL 1.2 - 3.4 10*3/uL [facility] Lymphocytes/100 WBC (Bld) 15.4 % Low 20.0 - 55.0 % [facility] MCH (RBC) [Entitic mass] 27.8 pg 26.0 - 35.0 PG [facility] MCHC (RBC) [Mass/Vol] 34.0 g/dL [facility] MCV (RBC) [Entitic vol] 81.8 fL [facility] Monocytes (Bld) [#/Vol] 1.3 10*3/uL High 0.0 - 0.7 10*3/uL [facility] Monocytes/100 WBC (Bld) 8.8 % 0.0 - 10.0 % [facility] [facility] Neutrophils (Bld) [#/Vol] 10.7 10*3/uL High 1.4 - 6.5 10*3/uL [facility] Neutrophils/100 WBC (Bld) 74.6 % 37.0 - 75.0 % [facility] Platelet mean volume (Bld) [Entitic vol] 8.7 fL [facility] Platelets (Bld) [#/Vol] 194 10*3/uL 130.0 - 400.0 10*3/uL [facility] RBC (Bld) [#/Vol] 4.29 10*6/uL 4.0 - 5.4 10*6/uL [facility] WBC (Bld) [#/Vol] 14.3 10*3/uL High 3.6 - 11.0 10*3/uL [facility] CBC, EDIF, PLATELETon 2021 ABSOLUTE BASOPHIL COUNT 0.1 10*3/uL 0.0 - 0.2 10*3/uL [facility] Comment on above: Testing performed at [facility], [place], [place] [address] Basophils/100 WBC (Bld) 0.6 % 0.0 - 2.0 % [facility] Differential cell count method Nom (Bld) AUTO DIFF % [facility] Eosinophils (Bld) [#/Vol] 0.2 10*3/uL 0.0 - 0.7 10*3/uL [facility] Eosinophils/100 WBC (Bld) 2.0 % 0.0 - 11.0 % [facility] Erythrocyte distribution width (RBC) [Ratio] 14.4 % 11.5 - 14.5 % [facility] Hematocrit (Bld) [Volume fraction] 38.7 % 36.0 - 48.0 % [facility] Hemoglobin (Bld) [Mass/Vol] 12.8 g/dL [facility] Interpretation and review of laboratory results Abnormal [facility] Lymphocytes (Bld) [#/Vol] 2.2 10*3/uL 1.2 - 3.4 10*3/uL [facility] Lymphocytes/100 WBC (Bld) 23.1 % 20.0 - 55.0 % [facility] MCH (RBC) [Entitic mass] 27.5 pg 26.0 - 35.0 PG [facility] MCHC (RBC) [Mass/Vol] 33.2 g/dL [facility] MCV (RBC) [Entitic vol] 82.7 fL [facility] Monocytes (Bld) [#/Vol] 0.9 10*3/uL High 0.0 - 0.7 10*3/uL [facility] Monocytes/100 WBC (Bld) 9.6 % 0.0 - 10.0 % [facility] Neutrophils (Bld) [#/Vol] 6.3 10*3/uL 1.4 - 6.5 10*3/uL [facility] Neutrophils/100 WBC (Bld) 64.7 % 37.0 - 75.0 % [facility] Platelet mean volume (Bld) [Entitic vol] 8.3 fL [facility] Platelets (Bld) [#/Vol] 221 10*3/uL 130.0 - 400.0 10*3/uL [facility] RBC (Bld) [#/Vol] 4.68 10*6/uL 4.0 - 5.4 10*6/uL [facility] WBC (Bld) [#/Vol] 9.7 10*3/uL 3.6 - 11.0 10*3/uL [facility] GLUCOSE (POC DEVICE)on 08-11 GLUCOSE, POINT OF CARE 91 [facility] Operator [id number] [facility] NOVEL CORONAVIRUS LAB 1 - NA SOPHARYNGEALon 08-11-2022 NARRATIVE -1 This test was performed using isothermal NELLY and has been approved as Emergency Use Authorization (EUA) for the qualitative detection [id number] nucleic acid. [facility] Comment on above: Testing performed at [place], [place] [address] SARS-CoV-2 (COVID-19) RNA NELLY+probe Ql (Unsp spec) Not detected NOT DETECTED [facility] Comment on above: Negative results do not preclude SARS-CoV-2 infection and should not be used as the sole basis for treatment or other patient management decisions. Optimum specimen types and timing for peak viral levels during infections caused by SARS-CoV-2 has not been determined. The possibility of a false negative result should especially be considered if the patient's recent exposures or clinical presentation suggest that SARS-CoV-2 infection is probable, and diagnostic tests for other causes of illness (e.g., other respiratory illness) are negative. Collection of a new specimen and re-testing may be necessary if the patient is critically ill or clinically deteriorating. [facility] RAPID TOX SCREEN WITH RELEX TO DRUGMCon 08-11-2022 Amphetamine (U) [Mass/Vol] Negative NEGATIVE NG/ML [facility] Comment on above: <500 ng/ml CUTOFF Barbiturates Screen Ql (U) Negative NEGATIVE NG/ML [facility] Comment on above: <200 ng/ml CUTOFF Benzodiazepines Ql (U) Negative NEGATIVE NG/ML [facility] Comment on above: <150 ng/ml CUTOFF Benzoylecgonine Ql (U) Negative NEGATIVE NG/ML [facility] Comment on above: <150 ng/ml CUTOFF Buprenorphine Ql (U) Negative NEGATIVE NG/ML [facility] Comment on above: <10 ng/ml CUTOFF Testing performed at [place], [place] [address] Cannabinoids Screen Ql (U) Negative NEGATIVE NG/ML [facility] Comment on above: <50 ng/ml CUTOFF Methadone Screen Ql (U) Negative NEGATIVE NG/ML [facility] Comment on above: <200 ng/ml CUTOFF Methamphetamine (U) [Mass/Vol] Negative NEGATIVE NG/ML [facility] Comment on above: <500 ng/ml CUTOFF Opiates Screen Ql (U) Negative NEGATIVE NG/ML [facility] Comment on above: <100 ng/ml CUTOFF oxyCODONE Ql (U) Negative NEGATIVE NG/ML [facility] [employer] Comment on above: <100 ng/ml CUTOFF Phencyclidine Screen method >25 ng/mL Ql (U) Negative NEGATIVE NG/ML [facility] Comment on above: <25 ng/ml CUTOFF Propoxyphene+Norprop oxyphene Screen Ql (U) Negative NEGATIVE NG/ML [facility] Comment on above: <300 ng/ml CUTOFF Tricyclic antidepressants Screen Ql (U) Negative NEGATIVE NG/ML [facility] Comment on above: <300 ng/ml CUTOFF [facility] Heart R-R duration USo n 08-05-2022 [facility] Heart R-R duration USo n 07-30-2022 [facility] Heart R-R duration USo n 07-23-2022 [facility] Heart R-R duration USo n 07-17-2022 [facility] HEMOGLOBIN A1Con 07-17-2022 Glucose [Mass/Vol] 105 mg/dL [facility] Comment on above: Testing performed at [place], [place] [address] HbA1c (Bld) [Mass fraction] 5.3 % 0 - 6 % [facility] Comment on above: NORMAL <5.7% PREDIABETES 5.7-6.4% DIABETES 6.5% OR HIGHER [facility] CBC, EDIF, PLATELETon 2021 ABSOLUTE BASOPHIL COUNT 0.0 10*3/uL 0.0 - 0.2 10*3/uL [facility] Comment on above: Testing performed at [place], [place] [address] Basophils/100 WBC (Bld) 0.3 % 0.0 - 2.0 % [facility] Differential cell count method Nom (Bld) AUTO DIFF % [facility] Eosinophils (Bld) [#/Vol] 0.1 10*3/uL 0.0 - 0.7 10*3/uL [facility] Eosinophils/100 WBC (Bld) 0.5 % 0.0 - 11.0 % [facility] Erythrocyte distribution width (RBC) [Ratio] 13.7 % 11.5 - 14.5 % [facility] Hematocrit (Bld) [Volume fraction] 37.1 % 36.0 - 48.0 % [facility] Hemoglobin (Bld) [Mass/Vol] 12.6 g/dL [facility] Interpretation and review of laboratory results Abnormal [facility] Lymphocytes (Bld) [#/Vol] 1.4 10*3/uL 1.2 - 3.4 10*3/uL [facility] Lymphocytes/100 WBC (Bld) 12.8 % Low 20.0 - 55.0 % [facility] MCH (RBC) [Entitic mass] 28.5 pg 26.0 - 35.0 PG [facility] MCHC (RBC) [Mass/Vol] 33.9 g/dL [facility] MCV (RBC) [Entitic vol] 83.9 fL [facility] Monocytes (Bld) [#/Vol] 0.8 10*3/uL High 0.0 - 0.7 10*3/uL [facility] Monocytes/100 WBC (Bld) 7.3 % 0.0 - 10.0 % [facility] Neutrophils (Bld) [#/Vol] 8.7 10*3/uL High 1.4 - 6.5 10*3/uL [facility] Neutrophils/100 WBC (Bld) 79.1 % High 37.0 - 75.0 % [facility] Platelet mean volume (Bld) [Entitic vol] 9.2 fL [facility] Platelets (Bld) [#/Vol] 216 10*3/uL 130.0 - 400.0 10*3/uL [facility] RBC (Bld) [#/Vol] 4.42 10*6/uL 4.0 - 5.4 10*6/uL [facility] WBC (Bld) [#/Vol] 11.0 10*3/uL 3.6 - 11.0 10*3/uL [facility] COMPREHENSIVE METABOLIC PANE Keo 07-13-2022 Albumin [Mass/Vol] 3.5 G/dl 3.5 - 5.0 G/dl [facility] Albumin/Globulin [Mass ratio] 1.2 {ratio} Low [facility] ALP [Catalytic activity/Vol] 131 U/L [facility] ALT [Catalytic activity/Vol] 18 U/L [facility] AST [Catalytic activity/Vol] 23 U/L [facility] Bilirubin [Mass/Vol] 0.1 mg/dL Low [facility] Calcium [Mass/Vol] 8.9 mg/dL [facility] Chloride [Moles/Vol] 106 mmol/L [facility] Comment on above: Please note: Triglyc eride levels of 600mg/dL or higher may positively bias chloride results by approximately 2.1 mmol CO2 [Moles/Vol] 22 mmol/L [facility] Creatinine [Mass/Vol] 0.70 mg/dL [facility] GFR COMMENT Average GFR for 20-29 years old = 116. [facility] Comment on above: Chronic Kidney disea se, GFR = <60. Kidney failure, GFR = <15. The GFR estimate is not adjusted for extreme body surface area or acute process, nor has it been validated for women or ethnic groups other than and . Testing performed at [place], [place] [address] GFR/1.73 sq M.predicted among blacks MDRD (S/P/Bld) [Vol rate/Area] 129 mL/min/{1.73_m2} ml/min/1.73sq.m [facility] GFR/1.73 sq M.predicted among non-blacks MDRD (S/P/Bld) [Vol rate/Area] 107 mL/min/{1.73_m2} ml/min/1.73sq.m [facility] Glucose post fast [Mass/Vol] 110 mg/dL High [facility] Comment on above: NORMAL <100 mg/dL PREDIABETES 101-126 mg/dL DIABETES 126 mg/dL or higher Potassium [Moles/Vol] 3.9 mmol/L [facility] Protein [Mass/Vol] 6.4 g/dL [facility] Sodium [Moles/Vol] 134 mmol/L Low [facility] Urea nitrogen [Mass/Vol] 11 mg/dL [facility] LACTATE DEHYDROGENASEon 06-15 LDH [Catalytic activity/Vol] 91 U/L Low [facility] Comment on above: Testing performed at [place], [place] [address] No Panel Informationon 07-13 Interpretation and review of laboratory results Abnormal [facility] Heart R-R duration USo n 07-09-2022 [facility] Heart R-R duration USo n 06-29-2022 [facility] Heart R-R duration USo n 06-25-2022 [facility] Heart R-R duration USo n 06-18-2022 [facility] OB ultrasound panelon 2021 : Single live iup in Vertex position. EFW is 1677g, which is the 48.5 percentile. heart rate 130 bpm. Umbilical artery S/D ratio is 2.85. [facility] Radiology Study observation (narrative) [facility] ECGOrdered By: Alvarado hawk on 06-16-2022 [facility] Work Phone: Heart R-R duration USo n 05-22-2022 Josse Walter MD - 05/22/2022 2:00 PM EDT Non-stress Test Gestational age: 27w1d Indication: Decreased movement Baseline: 140 bpm 10x10s: N/A Variability: moderate Decelerations: absent Contractions: absent Duration >20 minutes Comments: Reassuring for gestational age 0905/22/22 Josse Walter MD [facility] OB ultrasound panelon 2021 : Single live IUP in Breech position. Normal Anatomy seen. Outflow tracts not seen - follow up ultrasound in 1 month. ASHLEE by US - 08/20/2022 which is consistent with gestational age. [facility] Radiology Study observation (narrative) [facility] OB ultrasound panelon 2021 : 1. Single noted within the uterus 2. heart rate of 159 bpm. [facility] REFERRING PHYSICIAN: Dr. Lee TECHNOLOGIST: Radha Simon PROCEDURE DATE : 02/02/2022 INDICATIONS: Early gestational, couldn't heart heart tones PROCEDURE DETAILS A single was noted within the uterus. heart rate of 159 bpm. FINAL [facility] Radiology Study observation (narrative) [facility] OB ultrasound panelon 2021 : 1. Single of 10 weeks and 4 days. 2. heart rate of 171 bpm. 3. US ASHLEE 08/20/2022, which is inconsistent with ASHLEE by LMP and should be changed. [facility] REFERRING PHYSICIAN: Dr. Lee TECHNOLOGIST: Radha Simon PROCEDURE DATE : 01/26/2022 INDICATIONS: Early gestational, dating LMP 11/08/2021, ASHLEE 08/15/2022 PROCEDURE DETAILS A single was noted within the uterus. heart rate of 171 bpm. The CRL measures 3.65 cm , 10 weeks 4 days. FINAL [facility] Radiology Study observation (narrative) [facility] ABO/RH(D) TYPINGon ABO and Rh group Nom (Bld ) Positive [facility] ABO and Rh group Nom (Bld ) Testing performed at [address] [facility] ANTIBODY SCREENon 01-09-2022 Blood group antibody screen Ql Negative [facility] EXPIRATION DATE 01/12/2022,2359 [facility] EXPIRATION DATE Testing performed at [place] [id number] [facility] CBC, EDIF, PLATELETon 2021 ABSOLUTE BASOPHIL COUNT 0.0 10*3/uL 0.0 - 0.2 10*3/uL [facility] Comment on above: Testing performed at [place] [address] Basophils/100 WBC (Bld) 0.5 % 0.0 - 2.0 % [facility] Differential cell count method Nom (Bld) AUTO DIFF % [facility] Eosinophils (Bld) [#/Vol] 0.10 10*3/uL 0.0 - 0.7 10*3/uL [facility] Eosinophils/100 WBC (Bld) 1.1 % 0.0 - 11.0 % [facility] Erythrocyte distribution width (RBC) [Ratio] 12.8 % 11.5 - 14.5 % [facility] Hematocrit (Bld) [Volume fraction] 37.9 % 36.0 - 48.0 % [facility] Hemoglobin (Bld) [Mass/Vol] 13.3 g/dL [facility] Interpretation and review of laboratory results Abnormal [facility] Lymphocytes (Bld) [#/Vol] 1.40 10*3/uL 1.2 - 3.4 10*3/uL [facility] Lymphocytes/100 WBC (Bld) 19.9 % Low 20.0 - 55.0 % [facility] MCH (RBC) [Entitic mass] 30.5 pg 26.0 - 35.0 PG [facility] MCHC (RBC) [Mass/Vol] 35.0 g/dL [facility] MCV (RBC) [Entitic vol] 87.1 fL [facility] Monocytes (Bld) [#/Vol] 0.5 10*3/uL 0.0 - 0.7 10*3/uL [facility] Monocytes/100 WBC (Bld) 7.4 % 0.0 - 10.0 % [facility] Neutrophils (Bld) [#/Vol] 5.1 10*3/uL 1.4 - 6.5 10*3/uL [facility] Neutrophils/100 WBC (Bld) 71.1 % 37.0 - 75.0 % [facility] Platelet mean volume (Bld) [Entitic vol] 7.8 fL [facility] Platelets (Bld) [#/Vol] 296 10*3/uL 130.0 - 400.0 10*3/uL [facility] RBC (Bld) [#/Vol] 4.35 10*6/uL 4.0 - 5.4 10*6/uL [facility] WBC (Bld) [#/Vol] 7.2 10*3/uL 3.6 - 11.0 10*3/uL [facility] HIV 1+2 Ab+HIV1 p24 Ag IA Ql on 01-09-2022 HIV 1+2 Ab IA Ql Non-Reactive NONREACTIVE [facility] Comment on above: Testing performed at [address] [facility] RAPID TOX SCREEN WITH RELEX TO DRUGMCon 01-09-2022 Amphetamine (U) [Mass/Vol] Negative NEGATIVE NG/ML [facility] Comment on above: <500 ng/ml CUTOFF Barbiturates Screen Ql (U) Negative NEGATIVE NG/ML [facility] Comment on above: <200 ng/ml C[facility] Benzodiazepines Ql (U) Negative NEGATIVE NG/ML [facility] Comment on above: <150 ng/ml C[facility]OFF Benzoylecgonine Ql (U) Negative NEGATIVE NG/ML [facility] Comment on above: <150 ng/ml C[facility] Buprenorphine Ql (U) Negative NEGATIVE NG/ML [facility] Comment on above: <10 ng/ml CUTOFF Testing performed at [place] [address] Cannabinoids Screen Ql (U) Negative NEGATIVE NG/ML [facility] Comment on above: <50 ng/ml C[facility]OFF Methadone Screen Ql (U) Negative NEGATIVE NG/ML [facility] Comment on above: <200 ng/ml C[facility] Methamphetamine (U) [Mass/Vol] Negative NEGATIVE NG/ML [facility] Comment on above: <500 ng/ml C[facility] Opiates Screen Ql (U) Negative NEGATIVE NG/ML [facility] Comment on above: <100 ng/ml C[facility]OFF oxyCODONE Ql (U) Negative NEGATIVE NG/ML [facility] Comment on above: <100 ng/ml C[facility]OFF Phencyclidine Screen method >25 ng/mL Ql (U) Negative NEGATIVE NG/ML [facility] Comment on above: <25 ng/ml [facility] Propoxyphene+Norprop oxyphene Screen Ql (U) Negative NEGATIVE NG/ML [facility] Comment on above: <300 ng/ml C[facility]OFF Tricyclic antidepressants Screen Ql (U) Negative NEGATIVE NG/ML [facility] Comment on above: <300 ng/ml CUTOFF [facility] TSH with Reflex Free T4on Interpretation and review of laboratory results Normal [facility] TSH Qn 1.52 m[IU]/L [facility] Comprehensive Metabolic Pane keo 09-25-2019 Albumin [Mass/Vol] 4.4 g/dL 3.2 - 5.2 g/dL [facility] ALP [Catalytic activity/Vol] 94 U/L 40 - 140 U/L [facility] ALT [Catalytic activity/Vol] 51 U/L 14 - 65 U/L [facility] Anion gap [Moles/Vol] 10 mmol/L 10 - 20 mmol/L [facility] AST [Catalytic activity/Vol] 18 U/L 0 - 45 U/L [facility] Bilirubin [Mass/Vol] 0.4 mg/dL 0 - 1.3 mg/dL [facility] Calcium [Mass/Vol] 9.5 mg/dL 8.4 - 10. 2 mg/dL [facility] Chloride [Moles/Vol] 104 mmol/L 98 - 108 mmol/L [facility] Creatinine [Mass/Vol] 0.90 mg/dL 0.4 - 1.1 mg/dL [facility] GFR/1.73 sq M predicted among non-blacks MDRD (S/P/Bld) [Vol rate/Area] The eGFR should be used for monitoring renal function only and not for medication dosing. [facility] GFR/1.73 sq M.predicted CKD-EPI (S/P/Bld) [Vol rate/Area] 90 >=60 mL/min/1.73 m2 [facility] Glucose [Mass/Vol] 82 mg/dL 65 - 99 mg/dL [facility] [Moles/Vol] 28 mmol/L 21 - 32 mmol/L [facility] Potassium [Moles/Vol] 4.0 mmol/L 3.5 - 5.1 mmol/L [facility] Protein [Mass/Vol] 8.0 g/dL 6 - 8 g/dL [facility] Sodium [Moles/Vol] 138 mmol/L 135 - 145 mmol/L [facility] Urea nitrogen [Mass/Vol] 10 mg/dL 8 - 25 mg/dL [facility] Urea nitrogen/Creatinine [Mass ratio] 11.1 mg/mg [facility] Follicle Stimulating Hormone on 09-25-2019 Follitropin Qn 2.6 m[IU]/mL mIU/mL [facility] FSH Reference Range: (Units mIU/mL) Pubertal adult females, menstrual cycle phases: Menarche to pre-menopause Follicular 2.3 - 12.6 Mid-cycle peak 5.2 - 17.5 Luteal 1.7 - 12.9 Post-menopausal On Menopausal Hormone Therapy (MHT) 5.9 - 72.8 Not on MHT 12.7 - 132.2 [facility] Luteinizing Hormoneon 2019 Lutropin Qn 7.4 m[IU]/mL mIU/mL [facility] LH Reference Range (Units mIU/mL) Female: Pubertal adult females, menstrual cycle phase: Follicular 1.9 - 12.8 Mid-cycle peak 22.8 - 76.1 Luteal 0.6 - 13.5 Post-menopausal: On Menopausal Hormone Therapy (MHT) 1.1 - 52.4 Not on MHT 8.6 - 61.8 [facility] Otheron 09-25-2019 Interpretation and review of laboratory results Normal [facility] TSH with Reflex Free T4on TSH Qn 3.77 m[IU]/L [facility] Vital Signs Date Time Vital Sign Value Performing Clinician Facility 03-01-2025 13:22-0400 Body height 162.56 cm Keyla ALDRIDGE Work Phone: [facility] 03-01-2025 13:22-0400 Body mass index (BMI) [Ratio] 28.5 kg/m2 Keyla Gideon SALES INCENTIVE ANALYST-C Work Phone: [facility] 03-01-2025 13:22-0400 Body weight 75.29 kg Keyla Meneses SALES INCENTIVE ANALYST-C Work Phone: [facility] 03-01-2025 13:22-0400 Diastolic blood pressure 70 mm[Hg] Keylasusan Meneses SALES INCENTIVE ANALYST-C Work Phone: [facility] 03-01-2025 13:22-0400 Systolic blood pressure 111 mm[Hg] Keyla Meneses SALES INCENTIVE ANALYST-C Work Phone: [facility] 01-18-2025 08:47-0400 Body height 162.56 cm Keyla Meneses SALES INCENTIVE ANALYST-C Work Phone: [facility] 01-18-2025 08:47-0400 Body mass index (BMI) [Ratio] 27.8 kg/m2 Keyla Meneses SALES INCENTIVE ANALYST-C Work Phone: [facility] 01-18-2025 08:47-0400 Body weight 73.53 kg Keyla Meneses SALES INCENTIVE ANALYST-C Work Phone: [facility] 01-18-2025 08:47-0400 Diastolic blood pressure 79 mm[Hg] Keyla Meneses SALES INCENTIVE ANALYST-C Work Phone: [facility] 01-18-2025 08:47-0400 Systolic blood pressure 122 mm[Hg] Keyla Meneses SALES INCENTIVE ANALYST-C Work Phone: [facility] 01-02-2025 08:40-0400 Body mass index (BMI) [Ratio] 27.8 kg/m2 Keyla Meneses SALES INCENTIVE ANALYST-C Work Phone: [facility] 01-02-2025 08:40-0400 Body weight 73.48 kg Keyla Meneses SALES INCENTIVE ANALYST-C Work Phone: [facility] 12-25-2024 13:58-0400 Body height 162.6 cm Anna Fuentes MD Work Phone: [facility] 12-25-2024 13:58-0400 Body mass index (BMI) [Ratio] 27 kg/m2 Anna Fuentes MD Work Phone: [facility] 12-25-2024 13:58-0400 Body weight 71.35 kg Anna Fuentes MD Work Phone: [facility] 12-25-2024 13:58-0400 Diastolic blood pressure 74 mm[Hg] Anna Fuentes MD Work Phone: [facility] 12-25-2024 13:58-0400 Heart rate 78 /min Anna Fuentes MD Work Phone: [facility] 12-25-2024 13:58-0400 Respiratory rate 16 /min Anna Fuentes MD Work Phone: [facility] 12-25-2024 13:58-0400 SaO2% (BldA) [Mass fraction] 100 % Anna Fuentes MD Work Phone: [facility] 12-25-2024 13:58-0400 Systolic blood pressure 115 mm[Hg] Anna Fuentes MD Work Phone: [facility] 11-09-2024 13:09-0500 Body height 162.6 cm Antonio PALMER-Luna Work Phone: [facility] 11-09-2024 13:09-0500 Body mass index (BMI) [Ratio] 27.46 kg/m2 Antonio Lopez PA-C Work Phone: [facility] 11-09-2024 13:09-0500 Body temperature 97.81 [degF] Antonio Lopez PA-C Work Phone: [facility] 11-09-2024 13:09-0500 Body weight 72.58 kg Antonio Lopez PA-Luna Work Phone: [facility] 11-09-2024 13:09-0500 Diastolic blood pressure 84 mm[Hg] Antonio Lopez PA-C Work Phone: [facility] 11-09-2024 13:09-0500 Heart rate 98 /min Antonio Caldwelline PA-C Work Phone: [facility] 11-09-2024 13:09-0500 Respiratory rate 16 /min Antonio Caldwelline PA-C Work Phone: [facility] 11-09-2024 13:09-0500 SaO2% (BldA) [Mass fraction] 97 % Antonio Caldwelline PA-C Work Phone: [facility] 11-09-2024 13:09-0500 Systolic blood pressure 129 mm[Hg] Antonio Caldwelline PA-C Work Phone: [facility] 05-18-2024 08:03-0400 Body mass index (BMI) [Ratio] 28.89 kg/m2 Keyla Gideon DECORATOR [employer] Work Phone: [facility] 05-18-2024 08:03-0400 Body temperature 98.49 [degF] Keyla Meneses DECORATOR [employer] Work Phone: [facility] 05-18-2024 08:03-0400 Body weight 78.74 kg Keyla Meneses DECORATOR [employer] Work Phone: [facility] 05-18-2024 08:03-0400 Diastolic blood pressure 81 mm[Hg] Keyla Meneses DECORATOR [employer] Work Phone: [facility] 05-18-2024 08:03-0400 Heart rate 81 /min Keyla Meneses DECORATOR [employer] Work Phone: [facility] 05-18-2024 08:03-0400 SaO2% (BldA) [Mass fraction] 98 % Keyla Meneses DECORATOR [employer] Work Phone: [facility] 05-18-2024 08:03-0400 Systolic blood pressure 116 mm[Hg] Keyla Meneses DECORATOR [employer] Work Phone: [facility] 04-27-2024 07:47-0400 Body mass index (BMI) [Ratio] 28.44 kg/m2 Keyla Meneses DECORATOR [employer] Work Phone: [facility] 04-27-2024 07:47-0400 Body temperature 98.4 [degF] Keyla Meneses DECORATOR [employer] Work Phone: [facility] 04-27-2024 07:47-0400 Body weight 77.52 kg Keyla Meneses DECORATOR [employer] Work Phone: [facility] 04-27-2024 07:47-0400 Diastolic blood pressure 79 mm[Hg] Keyla Meneses DECORATOR [employer] Work Phone: [facility] 04-27-2024 07:47-0400 Heart rate 92 /min Keyla Meneses DECORATOR [employer] Work Phone: [facility] 04-27-2024 07:47-0400 SaO2% (BldA) [Mass fraction] 98 % Keyla Meneses DECORATOR [employer] Work Phone: [facility] 04-27-2024 07:47-0400 Systolic blood pressure 119 mm[Hg] Keyla Meneses DECORATOR [employer] Work Phone: [facility] 04-06-2024 08:16-0400 Body mass index (BMI) [Ratio] 28.42 kg/m2 Kelya Meneses DECORATOR [employer] Work Phone: [facility] 04-06-2024 08:16-0400 Body temperature 98.91 [degF] Keyla Meneses DECORATOR [employer] Work Phone: [facility] 04-06-2024 08:16-0400 Body weight 77.47 kg Keyla Meneses DECORATOR [employer] Work Phone: [facility] 04-06-2024 08:16-0400 Diastolic blood pressure 84 mm[Hg] Keyla Meneses DECORATOR [employer] Work Phone: [facility] 04-06-2024 08:16-0400 Heart rate 97 /min Keyla Meneses DECORATOR [employer] Work Phone: [facility] 04-06-2024 08:16-0400 SaO2% (BldA) [Mass fraction] 98 % Keyla Meneses DECORATOR [employer] Work Phone: [facility] 04-06-2024 08:16-0400 Systolic blood pressure 127 mm[Hg] Keyla Gideon DECORATOR [employer] Work Phone: [facility] 03-06-2024 13:32-0400 Body height 165.1 cm Keyla Meneses CNP Work Phone: [facility] 03-06-2024 13:32-0400 Body mass index (BMI) [Ratio] 28.51 kg/m2 Keyla Meneses DECORATOR [employer] Work Phone: [facility] 03-06-2024 13:32-0400 Body temperature 98.4 [degF] Keyla Gideon DECORATOR [employer] Work Phone: [facility] 03-06-2024 13:32-0400 Body weight 77.7 kg Keyla Meneses DECORATOR [employer] Work Phone: [facility] 03-06-2024 13:32-0400 Diastolic blood pressure 87 mm[Hg] Keyla Gideon DECORATOR [employer] Work Phone: [facility] 03-06-2024 13:32-0400 Heart rate 96 /min Keyla Meneses DECORATOR [employer] Work Phone: [facility] 03-06-2024 13:32-0400 SaO2% (BldA) [Mass fraction] 97 % Keyla Meneses DECORATOR [employer] Work Phone: [facility] 03-06-2024 13:32-0400 Systolic blood pressure 138 mm[Hg] Keyla Gideon DECORATOR [employer] Work Phone: [facility] 12-17-2023 09:01-0400 Body height 162.6 cm Amy Chi PA Work Phone: [facility] 12-17-2023 09:01-0400 Body mass index (BMI) [Ratio] 29.52 kg/m2 Amy Chi PA Work Phone: [facility] 12-17-2023 09:01-0400 Body temperature 98.2 [degF] Amy Chi PA Work Phone: [facility] 12-17-2023 09:01-0400 Body weight 78.02 kg Amy Chi PA Work Phone: [facility] 12-17-2023 09:01-0400 Diastolic blood pressure 83 mm[Hg] Amy Chi PA Work Phone: [facility] 12-17-2023 09:01-0400 Heart rate 92 /min Amy Chi PA Work Phone: [facility] 12-17-2023 09:01-0400 Respiratory rate 18 /min Amy Chi PA Work Phone: [facility] 12-17-2023 09:01-0400 SaO2% (BldA) [Mass fraction] 99 % Amy Chi PA Work Phone: [facility] 12-17-2023 09:01-0400 Systolic blood pressure 151 mm[Hg] Amy Chi PA Work Phone: [facility] 12-07-2023 16:32-0400 Body height 162.6 cm Amy Chi PA Work Phone: [facility] 12-07-2023 16:32-0400 Body mass index (BMI) [Ratio] 29.52 kg/m2 Amy Chi PA Work Phone: [facility] 12-07-2023 16:32-0400 Body temperature 98.29 [degF] Amy Chi PA Work Phone: [facility] 12-07-2023 16:32-0400 Body weight 78.02 kg Amy Chi PA Work Phone: [facility] 12-07-2023 16:32-0400 Diastolic blood pressure 81 mm[Hg] Amyel Stackner PA Work Phone: [facility] 12-07-2023 16:32-0400 Heart rate 106 /min Amy Chi PA Work Phone: [facility] 12-07-2023 16:32-0400 Respiratory rate 18 /min Amy Chi PA Work Phone: [facility] 12-07-2023 16:32-0400 SaO2% (BldA) [Mass fraction] 100 % Amy Chi PA Work Phone: [facility] 12-07-2023 16:32-0400 Systolic blood pressure 126 mm[Hg] Amy PALMER Work Phone: [facility] 10-26-2023 15:37-0500 Body height 162.6 cm Lemuel Lee MD Work Phone: [facility] 10-26-2023 15:37-0500 Body mass index (BMI) [Ratio] 30.55 kg/m2 Lemuel Lee MD Work Phone: [facility] 10-26-2023 15:37-0500 Body weight 80.74 kg Lemuel Lee MD Work Phone: [facility] 10-26-2023 15:37-0500 Diastolic blood pressure 68 mm[Hg] Lemuel Lee MD Work Phone: [facility] 10-26-2023 15:37-0500 Systolic blood pressure 112 mm[Hg] Lemuel Lee MD Work Phone: [facility] 09-29-2023 16:27-0500 Body height 162.6 cm Jelena Walter WEB ANALYTICS DEVELOPER-DECORATOR [employer] Work Phone: [facility] 09-29-2023 16:27-0500 Body mass index (BMI) [Ratio] 29.7 kg/m2 Jelena Walter APRN-DECORATOR [employer] Work Phone: [facility] 09-29-2023 16:27-0500 Body temperature 97.39 [degF] Jelena Walter WEB ANALYTICS DEVELOPER-DECORATOR [employer] Work Phone: [facility] 09-29-2023 16:27-0500 Body weight 78.47 kg Jelena Walter APRN-DECORATOR [employer] Work Phone: [facility] 09-29-2023 16:27-0500 Diastolic blood pressure 80 mm[Hg] Jelena Walter WEB ANALYTICS DEVELOPER-DECORATOR [employer] Work Phone: [facility] 09-29-2023 16:27-0500 Heart rate 89 /min Jelena Walter APRN-DECORATOR [employer] Work Phone: [facility] 09-29-2023 16:27-0500 Respiratory rate 16 /min Jelena Walter APRN-DECORATOR [employer] Work Phone: [facility] 09-29-2023 16:27-0500 SaO2% (BldA) [Mass fraction] 98 % Jelena Walter APRN-DECORATOR [employer] Work Phone: [facility] 09-29-2023 16:27-0500 Systolic blood pressure 127 mm[Hg] Jelena Walter APRN-DECORATOR [employer] Work Phone: [facility] 09-01-2023 08:27-0500 Body mass index (BMI) [Ratio] 29.72 kg/m2 Татьяна Brooke DECORATOR [employer] Work Phone: [facility] 09-01-2023 08:27-0500 Body temperature 98.01 [degF] Татьяна Brooke DECORATOR [employer] Work Phone: [facility] 09-01-2023 08:27-0500 Body weight 81.01 kg Татьяна Brooke DECORATOR [employer] Work Phone: [facility] 09-01-2023 08:27-0500 Diastolic blood pressure 86 mm[Hg] Татьяна Brooke DECORATOR [employer] Work Phone: [facility] 09-01-2023 08:27-0500 Heart rate 86 /min Татьяна Brooke DECORATOR [employer] Work Phone: [facility] 09-01-2023 08:27-0500 Respiratory rate 16 /min Татьяна Brooke DECORATOR [employer] Work Phone: [facility] 09-01-2023 08:27-0500 SaO2% (BldA) [Mass fraction] 100 % Татьяна Brooke DECORATOR [employer] Work Phone: [facility] 09-01-2023 08:27-0500 Systolic blood pressure 100 mm[Hg] Татьяна Brooke DECORATOR [employer] Work Phone: [facility] 07-21-2023 15:24-0500 Body height 165.1 cm Татьяна Brooke DECORATOR [employer] Work Phone: [facility] 07-21-2023 15:24-0500 Body mass index (BMI) [Ratio] 30.87 kg/m2 Татьяна Brooke DECORATOR [employer] Work Phone: [facility] 07-21-2023 15:24-0500 Body temperature 98.2 [degF] Татьяна Brooke DECORATOR [employer] Work Phone: [facility] 07-21-2023 15:24-0500 Body weight 84.14 kg Татьяна Brooke DECORATOR [employer] Work Phone: [facility] 07-21-2023 15:24-0500 Diastolic blood pressure 82 mm[Hg] Татьяна Brooke DECORATOR [employer] Work Phone: [facility] 07-21-2023 15:24-0500 Heart rate 107 /min Татьяна Brooke DECORATOR [employer] Work Phone: [facility] 07-21-2023 15:24-0500 Respiratory rate 16 /min Татьяна Brooke DECORATOR [employer] Work Phone: [facility] 07-21-2023 15:24-0500 SaO2% (BldA) [Mass fraction] 97 % Татьяна Brooke DECORATOR [employer] Work Phone: [facility] 07-21-2023 15:24-0500 Systolic blood pressure 112 mm[Hg] Татьяна Brooke DECORATOR [employer] Work Phone: [facility] 01-07-2023 11:04-0400 Body height 162.5 cm Anand Cooley Other Phone: [facility] 01-07-2023 11:04-0400 Body temperature 98.96 [degF] Anand Cooley Other Phone: [facility] 01-07-2023 11:04-0400 Diastolic blood pressure 87 mm[Hg] Anand Cooley Other Phone: [facility] 01-07-2023 11:04-0400 Heart rate 122 /min Anand Cooley Other Phone: [facility] 01-07-2023 11:04-0400 Respiratory rate 16 /min Anand Lenora Other Phone: [facility] 01-07-2023 11:04-0400 SaO2% (BldA) [Mass fraction] 98 % Anand Lenora Other Phone: [facility] 01-07-2023 11:04-0400 Systolic blood pressure 144 mm[Hg] Anand Lenora Other Phone: [facility] 01-05-2023 10:10-0400 Body height 162.6 cm Amy Chi PA Work Phone: [facility] 01-05-2023 10:10-0400 Body mass index (BMI) [Ratio] 29.18 kg/m2 Amy Chi PA Work Phone: [facility] 01-05-2023 10:10-0400 Body temperature 98.6 [degF] Amy Chi PA Work Phone: [facility] 01-05-2023 10:10-0400 Body weight 77.11 kg Amy Chi PA Work Phone: [facility] 01-05-2023 10:10-0400 Diastolic blood pressure 74 mm[Hg] Amy Chi PA Work Phone: [facility] 01-05-2023 10:10-0400 Heart rate 96 /min Amy Chi PA Work Phone: [facility] 01-05-2023 10:10-0400 Respiratory rate 18 /min Amy Chi PA Work Phone: [facility] 01-05-2023 10:10-0400 SaO2% (BldA) [Mass fraction] 99 % Amy Chi PA Work Phone: [facility] 01-05-2023 10:10-0400 Systolic blood pressure 131 mm[Hg] Amy Chi PA Work Phone: [facility] 10-20-2022 15:13-0500 Body height 162.6 cm Lemuel Lee MD Work Phone: [facility] 10-20-2022 15:13-0500 Body mass index (BMI) [Ratio] 30.04 kg/m2 Lemuel Lee MD Work Phone: [facility] 10-20-2022 15:13-0500 Body weight 79.38 kg Lemuel Lee MD Work Phone: [facility] 10-20-2022 15:13-0500 Diastolic blood pressure 74 mm[Hg] Lemuel Lee MD Work Phone: [facility] 10-20-2022 15:13-0500 Systolic blood pressure 110 mm[Hg] Lemuel Lee MD Work Phone: [facility] 08-13-2022 16:20-0500 Body temperature 97.59 [degF] Lemuel Lee MD Work Phone: [facility] 08-13-2022 16:20-0500 Diastolic blood pressure 74 mm[Hg] Lemuel Lee MD Work Phone: [facility] 08-13-2022 16:20-0500 Heart rate 84 /min Lemuel Lee MD Work Phone: [facility] 08-13-2022 16:20-0500 Respiratory rate 18 /min Lemuel Lee MD Work Phone: [facility] 08-13-2022 16:20-0500 SaO2% (BldA) [Mass fraction] 98 % Lemuel Lee MD Work Phone: [facility] 08-13-2022 16:20-0500 Systolic blood pressure 131 mm[Hg] Lemuel Lee MD Work Phone: [facility] 08-11-2022 04:06-0500 Body height 162.6 cm Lemuel Lee MD Work Phone: [facility] 08-11-2022 04:06-0500 Body mass index (BMI) [Ratio] 33.15 kg/m2 Lemuel Lee MD Work Phone: [facility] 08-11-2022 04:06-0500 Body weight 87.6 kg Lemuel Lee MD Work Phone: [facility] 08-05-2022 07:26-0500 Body height 162.6 cm Lemuel Lee MD Work Phone: [facility] 08-05-2022 07:26-0500 Body mass index (BMI) [Ratio] 33.13 kg/m2 Lemuel Lee MD Work Phone: [facility] 08-05-2022 07:26-0500 Body weight 87.54 kg Lemuel Lee MD Work Phone: [facility] 08-05-2022 07:26-0500 Diastolic blood pressure 72 mm[Hg] Lemuel Lee MD Work Phone: [facility] 08-05-2022 07:26-0500 Systolic blood pressure 124 mm[Hg] Lemuel Lee MD Work Phone: [facility] 07-30-2022 15:04-0500 Body height 162.6 cm Lemuel Lee MD Work Phone: [facility] 07-30-2022 15:04-0500 Body mass index (BMI) [Ratio] 32.79 kg/m2 Lemuel Lee MD Work Phone: [facility] 07-30-2022 15:04-0500 Body weight 86.64 kg Lemuel Lee MD Work Phone: [facility] 07-30-2022 15:04-0500 Diastolic blood pressure 74 mm[Hg] Lemuel Lee MD Work Phone: [facility] 07-30-2022 15:04-0500 Systolic blood pressure 134 mm[Hg] Lemuel Lee MD Work Phone: [facility] 07-23-2022 08:56-0500 Body height 162.6 cm Lemuel Lee MD Work Phone: [facility] 07-23-2022 08:56-0500 Body mass index (BMI) [Ratio] 32.61 kg/m2 Lemuel Lee MD Work Phone: [facility] 07-23-2022 08:56-0500 Body weight 86.18 kg Lemuel Lee MD Work Phone: [facility] 07-23-2022 08:56-0500 Diastolic blood pressure 82 mm[Hg] Lemuel Lee MD Work Phone: [facility] 07-23-2022 08:56-0500 Systolic blood pressure 120 mm[Hg] Lemuel Lee MD Work Phone: [facility] 07-21-2022 07:24-0500 Body height 162.6 cm Татьяна Brooke CNP Work Phone: [facility] 07-21-2022 07:24-0500 Body mass index (BMI) [Ratio] 32.56 kg/m2 Татьяна Brooke DECORATOR [employer] Work Phone: [facility] 07-21-2022 07:24-0500 Body temperature 98.2 [degF] Татьяна Brooke DECORATOR [employer] Work Phone: [facility] 07-21-2022 07:24-0500 Body weight 86.05 kg Татьяна Brooke DECORATOR [employer] Work Phone: [facility] 07-21-2022 07:24-0500 Diastolic blood pressure 84 mm[Hg] Татьяна Brooke DECORATOR [employer] Work Phone: [facility] 07-21-2022 07:24-0500 Heart rate 80 /min Татьяна Brooke DECORATOR [employer] Work Phone: [facility] 07-21-2022 07:24-0500 Respiratory rate 16 /min Татьяна Brooke DECORATOR [employer] Work Phone: [facility] 07-21-2022 07:24-0500 Systolic blood pressure 120 mm[Hg] Татьяна Brooke DECORATOR [employer] Work Phone: [facility] 07-17-2022 11:14-0400 Body height 162.6 cm Lauren Perez WEB ANALYTICS DEVELOPER-DECORATOR [employer] Work Phone: [facility] 07-17-2022 11:14-0400 Body mass index (BMI) [Ratio] 31.76 kg/m2 Lauren Perez WEB ANALYTICS DEVELOPER-DECORATOR [employer] Work Phone: [facility] 07-17-2022 11:14-0400 Body weight 83.92 kg Lauren Perez WEB ANALYTICS DEVELOPER-DECORATOR [employer] Work Phone: [facility] 07-17-2022 11:14-0400 Diastolic blood pressure 78 mm[Hg] Lauren Perez WEB ANALYTICS DEVELOPER-DECORATOR [employer] Work Phone: [facility] 07-17-2022 11:14-0400 Systolic blood pressure 116 mm[Hg] Lauren Perez WEB ANALYTICS DEVELOPER-DECORATOR [employer] Work Phone: [facility] 07-13-2022 12:49-0400 Body mass index (BMI) [Ratio] 32.54 kg/m2 Josse Walter MD Work Phone: [facility] 07-13-2022 12:49-0400 Body weight 86 kg Josse Walter MD Work Phone: [facility] 07-13-2022 12:49-0400 Diastolic blood pressure 80 mm[Hg] Josse Walter MD Work Phone: [facility] 07-13-2022 12:49-0400 Systolic blood pressure 120 mm[Hg] Josse Walter MD Work Phone: [facility] 07-09-2022 08:41-0400 Body height 162.6 cm Lemuel Lee MD Work Phone: [facility] 07-09-2022 08:41-0400 Body mass index (BMI) [Ratio] 32.27 kg/m2 Lemuel Lee MD Work Phone: [facility] 07-09-2022 08:41-0400 Body weight 85.28 kg Lemuel Lee MD Work Phone: [facility] 07-09-2022 08:41-0400 Diastolic blood pressure 62 mm[Hg] Lemuel Lee MD Work Phone: [facility] 07-09-2022 08:41-0400 Systolic blood pressure 118 mm[Hg] Lemuel Lee MD Work Phone: [facility] 06-29-2022 09:11-0400 Body height 162.6 cm Lemuel Lee MD Work Phone: [facility] 06-29-2022 09:11-0400 Body mass index (BMI) [Ratio] 31.93 kg/m2 Lemuel Lee MD Work Phone: [facility] 06-29-2022 09:11-0400 Body weight 84.37 kg Lemuel Lee MD Work Phone: 6(603)[phone] [place] [address] 06-29-2022 09:11-0400 Diastolic blood pressure 78 mm[Hg] Lemuel Lee MD Work Phone: 7(254)371-796784 [place] [address] 06-29-2022 09:11-0400 Systolic blood pressure 120 mm[Hg] Lemuel Lee MD Work Phone: 6(900)[phone] [place] [address] 06-25-2022 09:08-0400 Body height 162.6 cm Lemuel Lee MD Work Phone: [facility] 06-25-2022 09:08-0400 Body mass index (BMI) [Ratio] 31.58 kg/m2 Lemuel Lee MD Work Phone: 2(715)469-772984 [place] [address] 06-25-2022 09:08-0400 Body weight 83.46 kg Lemuel Lee MD Work Phone: [facility] 06-25-2022 09:08-0400 Diastolic blood pressure 78 mm[Hg] Lemuel Lee MD Work Phone: [facility] 06-25-2022 09:08-0400 Systolic blood pressure 108 mm[Hg] Lemuel Lee MD Work Phone: [facility] 06-18-2022 10:06-0400 Body height 162.6 cm Lemuel Lee MD Work Phone: [facility] 06-18-2022 10:06-0400 Body mass index (BMI) [Ratio] 31.93 kg/m2 Lemuel Lee MD Work Phone: [facility] 06-18-2022 10:06-0400 Body weight 84.37 kg Lemuel Lee MD Work Phone: [facility] 06-18-2022 10:06-0400 Diastolic blood pressure 78 mm[Hg] Lemuel Lee MD Work Phone: [facility] 06-18-2022 10:06-0400 Systolic blood pressure 102 mm[Hg] Lemuel Lee MD Work Phone: [facility] 06-17-2022 14:32-0400 Diastolic blood pressure 76 mm[Hg] Татьяна Villegas RN [facility] 06-17-2022 14:32-0400 Heart rate 83 /min Татьяна Villegas RN [facility] 06-17-2022 14:32-0400 Respiratory rate 18 /min Татьяна Villegas RN [facility] 06-17-2022 14:32-0400 Systolic blood pressure 120 mm[Hg] Татьяна Villegas RN [facility] 05-22-2022 14:22-0400 Body mass index (BMI) [Ratio] 32.1 kg/m2 Josse Walter MD Work Phone: [facility] 05-22-2022 14:22-0400 Body weight 84.82 kg Josse Walter MD Work Phone: [facility] 05-22-2022 14:22-0400 Diastolic blood pressure 80 mm[Hg] Josse Walter MD Work Phone: [facility] 05-22-2022 14:22-0400 Systolic blood pressure 130 mm[Hg] Josse Walter MD Work Phone: [facility] 04-30-2022 10:12-0400 Body height 162.6 cm Lauren KAUR Work Phone: [facility] 04-30-2022 10:12-0400 Body mass index (BMI) [Ratio] 30.55 kg/m2 Lauren Perez WEB ANALYTICS DEVELOPER-DECORATOR [employer] Work Phone: [facility] 04-30-2022 10:12-0400 Body weight 80.74 kg Lauren Perez WEB ANALYTICS DEVELOPER-DECORATOR [employer] Work Phone: [facility] 04-30-2022 10:12-0400 Diastolic blood pressure 62 mm[Hg] Lauren Perez WEB ANALYTICS DEVELOPER-DECORATOR [employer] Work Phone: [facility] 04-30-2022 10:12-0400 Systolic blood pressure 106 mm[Hg] Lauren Perez WEB ANALYTICS DEVELOPER-DECORATOR [employer] Work Phone: [facility] 04-09-2022 10:04-0400 Body mass index (BMI) [Ratio] 29.87 kg/m2 Josse Walter MD Work Phone: [facility] 04-09-2022 10:04-0400 Body weight 78.93 kg Josse Walter MD Work Phone: [facility] 04-09-2022 10:04-0400 Diastolic blood pressure 60 mm[Hg] Josse Walter MD Work Phone: [facility] 04-09-2022 10:04-0400 Systolic blood pressure 140 mm[Hg] Josse Walter MD Work Phone: [facility] 03-12-2022 15:07-0400 Body height 162.6 cm Lemuel Lee MD Work Phone: [facility] 03-12-2022 15:07-0400 Body mass index (BMI) [Ratio] 28.67 kg/m2 Lemuel Lee MD Work Phone: [facility] 03-12-2022 15:07-0400 Body weight 75.75 kg Lemuel Lee MD Work Phone: [facility] 03-12-2022 15:07-0400 Diastolic blood pressure 72 mm[Hg] Lemuel Lee MD Work Phone: [facility] 03-12-2022 15:07-0400 Systolic blood pressure 110 mm[Hg] Lemuel Lee MD Work Phone: [facility] 02-02-2022 14:47-0400 Body mass index (BMI) [Ratio] 27.67 kg/m2 Josse Walter MD Work Phone: [facility] 02-02-2022 14:47-0400 Body weight 73.12 kg Josse Walter MD Work Phone: [facility] 02-02-2022 14:47-0400 Diastolic blood pressure 80 mm[Hg] Josse Walter MD Work Phone: [facility] 02-02-2022 14:47-0400 Systolic blood pressure 110 mm[Hg] Josse Walter MD Work Phone: [facility] 01-09-2022 13:38-0400 Body height 162.6 cm Avg Chioma Gal [id number] [facility] 01-09-2022 13:38-0400 Body mass index (BMI) [Ratio] 27.46 kg/m2 Avg Chioma Gal [id number] [facility] 01-09-2022 13:38-0400 Body weight 72.58 kg Avg Chioma Gal [id number] [facility] 01-09-2022 13:38-0400 Diastolic blood pressure 78 mm[Hg] Avg Chioma Gal [id number] [facility] 01-09-2022 13:38-0400 Systolic blood pressure 120 mm[Hg] Avg Chioma Gal [id number] [facility] 12-17-2021 08:00-0400 Body height 162.6 cm Lemuel Lee MD Work Phone: [facility] 12-17-2021 08:00-0400 Body mass index (BMI) [Ratio] 26.95 kg/m2 Lemuel Lee MD Work Phone: [facility] 12-17-2021 08:00-0400 Body weight 71.22 kg Lemuel Lee MD Work Phone: [facility] 12-17-2021 08:00-0400 Diastolic blood pressure 68 mm[Hg] Lemuel Lee MD Work Phone: [facility] 12-17-2021 08:00-0400 Systolic blood pressure 122 mm[Hg] Lemuel Lee MD Work Phone: [facility] 11-24-2021 07:07-0400 Body height 162.6 cm Lemuel Lee MD Work Phone: [facility] 11-24-2021 07:07-0400 Body mass index (BMI) [Ratio] 26.43 kg/m2 Lemuel Lee MD Work Phone: [facility] 11-24-2021 07:07-0400 Body weight 69.85 kg Lemuel Lee MD Work Phone: [facility] 11-24-2021 07:07-0400 Diastolic blood pressure 68 mm[Hg] Lemuel Lee MD Work Phone: [facility] 11-24-2021 07:07-0400 Systolic blood pressure 118 mm[Hg] Lemuel Lee MD Work Phone: [facility] 01-30-2020 08:02-0400 BMI (Body Mass Index) 29.32 kg/m2 [facility] 01-30-2020 08:02-0400 Body Temperature 98.49 [degF] [facility] 01-30-2020 08:02-0400 Body weight 77.47 kg [facility] 01-30-2020 08:02-0400 BP Diastolic 70 mm[Hg] [facility] 01-30-2020 08:02-0400 BP Systolic 120 mm[Hg] [facility] 01-30-2020 08:02-0400 Height 162.6 cm [facility] 01-30-2020 08:02-0400 Pulse (Heart Rate) 88 /min [facility] 01-30-2020 08:02-0400 Respiratory Rate 14 /min [facility] 10-12-2019 16:36-0500 BMI (Body Mass Index) 30.93 kg/m2 [facility] 10-12-2019 16:36-0500 Body Temperature 98.4 [degF] [facility] 10-12-2019 16:36-0500 Body weight 81.74 kg [facility] 10-12-2019 16:36-0500 BP Diastolic 80 mm[Hg] [facility] 10-12-2019 16:36-0500 BP Systolic 110 mm[Hg] [facility] 10-12-2019 16:36-0500 Height 162.6 cm [facility] 10-12-2019 16:36-0500 Pulse (Heart Rate) 92 /min [facility] 10-12-2019 16:36-0500 Respiratory Rate 16 /min [facility] 09-25-2019 17:06-0500 BMI (Body Mass Index) 31.58 kg/m2 [facility] 09-25-2019 17:06-0500 Body Temperature 98.4 [degF] [facility] 09-25-2019 17:06-0500 Body weight 83.46 kg [facility] 09-25-2019 17:06-0500 BP Diastolic 80 mm[Hg] [facility] 09-25-2019 17:06-0500 BP Systolic 130 mm[Hg] [facility] 09-25-2019 17:06-0500 Height 162.6 cm [facility] 09-25-2019 17:06-0500 Pulse (Heart Rate) 82 /min [facility] 09-25-2019 17:06-0500 Respiratory Rate 16 /min [facility] 01-21-2018 12:52-0400 Body Temperature 98.1 [degF] Anand Cooley [facility] 01-21-2018 12:52-0400 BP Diastolic 70 mm[Hg] Anand Cooley [facility] 01-21-2018 12:52-0400 BP Systolic 118 mm[Hg] Anand Cooley [facility] 01-21-2018 12:52-0400 Pulse (Heart Rate) 70 /min Anand Cooley [facility] 01-21-2018 12:52-0400 Respiratory Rate 16 /min Anand Cooley [facility] 01-21-2018 12:52-0400 Weight 78.29 kg Anand Cooley [facility] Encounters Encounter Date Encounter Type Care Provider Facility Start: 03-01-2025 End: 03-01-2025 ambulatory Keyla Meneses Facility:[facility] Start: 03-01-2025 End: 03-01-[address] Emmanuelle Contreras DO -[facility] Work Phone: Start: 01-22-2025 ambulatory KEYLA MENESES [facility] Start: 01-18-2025 End: 01-18-2025 ambulatory Keyla Meneses SALES INCENTIVE ANALYST-C Work Phone: [facility] Work Phone: Start: 01-18-2025 End: 01-18-2025 Patient encounter procedure Nel Ruff CN -Laboratory, Specimen Work Phone: Start: 01-18-2025 End: 01-18-2025 Patient encounter procedure Nel Ruff [facility] -[facility] Work Phone: Start: 01-18-2025 End: 01-18-2025 ambulatory Keyla Meneses Facility:[facility] Start: 01-18-2025 End: 01-18-2025 ambulatory Nel Ruff Facility:[facility] Start: 01-02-2025 End: 01-02-2025 ambulatory Keyla Meneses Facility:[facility] Start: 01-02-2025 End: 01-02-2025 Patient encounter procedure Emma JOVELC -[facility] Work Phone: Start: 12-25-2024 End: 12-25-2024 Office outpatient visit 25 minutes Anna Fuentes MD Work Phone: [facility] Comment on above: Unspecified mood (af fective) disorder (HCC) (Primary Dx); as incidental finding Start: 12-25-2024 End: 12-25-2024 ambulatory ANNA FUENTES [facility] Start: 11-09-2024 End: 11-09-2024 Patient encounter procedure Antonio Lopez PA-C Work Phone: [facility] Comment on above: Acute rhinosinusitis (Primary Dx) Start: 11-09-2024 End: 11-09-2024 ambulatory ANAND EDMOND [facility] Start: 10-02-2024 End: 10-02-2024 Refill Anna Fuentes MD Work Phone: [facility] Start: 07-27-2024 End: 07-27-2024 Refill Anna Fuentes MD Work Phone: [facility] Start: 06-20-[address] [facility] Start: 06-15-2024 End: 06-19-2024 [facility] Start: 06-09-2024 End: 06-09-2024 ambulatory KEYLA MENESES [facility] Start: 05-19-2024 End: 05-19-2024 Documentation procedure Sussy Degroot MA [facility] Comment on above: Care coordination P Start: 05-18-2024 End: 05-18-2024 Office outpatient visit 15 minutes Keyla Meneses DECORATOR [employer] Work Phone: [facility] Comment on above: Anxiety and depressi on (Primary Dx) Start: 05-18-2024 End: 05-18-2024 ambulatory KEYLA MENESES [facility] Start: 05-05-2024 End: 05-05-2024 Documentation procedure Sussy Degroot MA [facility] Comment on above: Care coordination P Start: 04-28-2024 End: 04-28-2024 Documentation procedure Sussy Degroot MA [facility] Comment on above: Care coordination P Start: 04-27-2024 End: 04-27-2024 Office outpatient visit 15 minutes Keyla Meneses DECORATOR [employer] Work Phone: [facility] Comment on above: Anxiety and depressi on (Primary Dx) Start: 04-27-2024 End: 04-27-2024 ambulatory KEYLASUSAN STONER [facility] Ambulatory Start: 04-25-2024 End: 04-29-2024 ambulatory KEYLA MENESES [facility] Start: 04-06-2024 End: 04-06-2024 Office outpatient visit 15 minutes Keyla Meneses DECORATOR [employer] Work Phone: [facility] Comment on above: Anxiety (Primary Dx) ; Chronic fatigue Start: 04-06-2024 End: 04-06-2024 ambulatory KEYLA MENESES [facility] Start: 03-06-2024 End: 03-06-2024 Office outpatient visit 15 minutes Keyla Meneses DECORATOR [employer] Work Phone: [facility] Comment on above: Anxiety (Primary Dx) Start: 03-06-2024 End: 03-06-2024 ambulatory KEYLA MENESES [facility] Start: 12-17-2023 End: 12-17-2023 Office outpatient visit 15 minutes Amy PALMER Work Phone: [facility] Comment on above: Acute non-recurrent frontal sinusitis (Primary Dx) Start: 12-13-2023 ambulatory FABIÁN [facility] Start: 12-07-20[facility] Start: 12-07-2023 End: 12-07-2023 Office outpatient visit 15 minutes Татьяна Brooke DECORATOR [employer] Work Phone: [facility] Comment on above: Sore throat (Primary Dx) Start: 10-26-2023 ambulatory ANAND COOLEY [facility] Start: 10-26-2023 Encounter for gynecological examination (general) (routine) without abnormal findings LEMUEL LEE [facility] Start: 10-26-2023 End: 10-26-2023 Patient encounter procedure Lemuel Lee MD Work Phone: [facility] Work Phone: Start: 10-26-2023 End: 10-26-2023 Periodic preventive med est patient 18-39 yrs Lemuel Lee MD Work Phone: [facility] TRAIN GATE ATTENDANT Comment on above: Well woman exam with routine gynecological exam (Primary Dx); Cervical cancer screening Start: 09-29-2023 ambulatory ANAND [facility]oder [facility] Start: 09-29-2023 End: 09-29-2023 Office outpatient visit 15 minutes Jelena CASEYDECORATOR LIGHTING FIXTURES Work Phone: [facility] Comment on above: Acute bronchitis, un specified organism (Primary Dx); Acute cough Start: 09-01-2023 End: 09-01-2023 Office outpatient visit 25 minutes Татьяна Brooke CNP Work Phone: [facility] Comment on above: Anxiety (Primary Dx) Start: 07-21-2023 End: 07-21-2023 Initial preventive medicine new pt age 18-39yrs Татьяна Brooke CNP Work Phone: [facility] Comment on above: Preventative health care (Primary Dx); Anxiety Start: 07-21-2023 End: 07-21-2023 Patient encounter status Татьяна Brooke CNP Work Phone: [facility] Work Phone: Start: 07-09-2023 ambulatory ANAND COOLEY [facility] Start: 07-06-2023 ambulatory ANAND COOLEY [facility] Start: 04-01-2023 ambulatory ANAND COOLEY [facility] Start: 01-07-2023 End: 01-07-2023 Emergency department patient visit [facility] [place] [address] Start: 01-05-2023 ambulatory SELF SELF [facility] Start: 01-05-2023 End: 01-05-2023 Office outpatient visit 15 minutes Amy PALMER Work Phone: [facility] Comment on above: Viral URI with cough (Primary Dx); Acute cough Start: 12-31-2022 End: 12-31-2022 Emergency department patient visit [facility] Start: 10-20-2022 End: 10-20-2022 Office outpatient visit 10 minutes Lemuel Lee MD Work Phone: [facility] TRAIN GATE ATTENDANT Comment on above: Disruption of episio keyanna wound in the puerperium (Primary Dx) Start: 08-11-2022 End: 08-13-2022 Evaluation and management of inpatient Lemuel Lee MD Work Phone: [facility] Comment on above: Encounter for induct ion of labor Start: 08-05-2022 End: 08-05-2022 Subsequent care visit Lemuel Lee MD Work Phone: [facility] TRAIN GATE ATTENDANT Comment on above: Diet controlled gest ational diabetes mellitus (GDM) in third trimester (Primary Dx); Supervision of high risk in third trimester; 37 weeks gestation of Start: 07-30-2022 End: 07-30-2022 Subsequent care visit Lemuel Lee MD Work Phone: [facility] TRAIN GATE ATTENDANT Comment on above: Diet controlled gest ational diabetes mellitus (GDM) in third trimester (Primary Dx); Supervision of high risk in third trimester; 37 weeks gestation of Start: 07-23-2022 End: 07-23-2022 Subsequent care visit Lemuel Lee MD Work Phone: [facility] TRAIN GATE ATTENDANT Comment on above: Diet controlled gest ational diabetes mellitus (GDM) in third trimester (Primary Dx); Supervision of high risk in third trimester; 36 weeks gestation of Start: 07-21-2022 End: 07-21-2022 Patient encounter status Татьяна Brooke CNP Work Phone: [facility] Start: 07-21-2022 End: 07-21-2022 Periodic preventive med est patient 18-39 yrs Татьяна Brooke CNP Work Phone: [facility] Comment on above: Preventative health care (Primary Dx) Start: 07-17-2022 End: 07-17-2022 Subsequent care visit Lauren CASEYDECORATOR L[employer]ING FIXTURES Work Phone: [facility] TRAIN GATE ATTENDANT Comment on above: Supervision of high risk in third trimester (Primary Dx); Diet controlled gestational diabetes mellitus (GDM) in third trimester; 35 weeks gestation of Start: 07-13-2022 End: 07-13-2022 Subsequent care visit Josse Walter MD Work Phone: [facility] TRAIN GATE ATTENDANT Comment on above: RUQ pain (Primary Dx ); Abnormal maternal glucose tolerance, antepartum; Diet controlled gestational diabetes mellitus (GDM) in third trimester Start: 07-09-2022 End: 07-09-2022 Subsequent care visit Lemule Lee MD Work Phone: [facility] TRAIN GATE ATTENDANT Comment on above: Diet controlled gest ational diabetes mellitus (GDM) in third trimester (Primary Dx); Encounter for supervision of high risk in third trimester, antepartum; 34 weeks gestation of Start: 06-29-2022 End: 06-29-2022 Subsequent care visit Lemuel Lee MD Work Phone: [facility] TRAIN GATE ATTENDANT Comment on above: Diet controlled gest ational diabetes mellitus (GDM) in third trimester (Primary Dx); Encounter for supervision of high risk in third trimester, antepartum; 32 weeks gestation of Start: 06-25-2022 End: 06-25-2022 Subsequent care visit Josse Walter MD Work Phone: [facility] TRAIN GATE ATTENDANT Comment on above: Diet controlled gest ational diabetes mellitus (GDM) in third trimester (Primary Dx); Encounter for supervision of high risk in third trimester, antepartum; 32 weeks gestation of Start: 06-18-2022 End: 06-18-2022 Subsequent care visit Lemuel Lee MD Work Phone: [facility] TRAIN GATE ATTENDANT Comment on above: Diet controlled gest ational diabetes mellitus (GDM) in third trimester (Primary Dx); Encounter for supervision of high risk in third trimester, antepartum; 31 weeks gestation of ; Ultrasound scan done for inability to hear heart tones Start: 06-18-2022 End: 06-18-2022 Subsequent hospital visit by physician Lemuel Lee MD Work Phone: [facility] Start: 06-17-2022 End: 06-17-2022 Nutrition therapy Lemuel Lee MD Work Phone: [facility] Comment on above: Diet controlled gest ational diabetes mellitus (GDM), antepartum (Primary Dx) Start: 06-16-2022 End: 06-16-2022 Nutrition therapy Lemuel Lee MD Work Phone: [facility] Comment on above: Diet controlled gest ational diabetes mellitus (GDM), antepartum Start: 06-15-2022 End: 06-15-2022 Subsequent hospital visit by physician Lemuel Lee MD Work Phone: [facility] [employer] Comment on above: Arrived Start: 05-22-2022 End: 05-22-2022 Subsequent care visit Josse Walter MD Work Phone: [facility] TRAIN GATE ATTENDANT Comment on above: Decreased move ments in second trimester, single or unspecified fetus (Primary Dx) Start: 04-30-2022 End: 04-30-2022 Subsequent care visit Lemuel Lee MD Work Phone: [facility] TRAIN GATE ATTENDANT Comment on above: Encounter for superv ision of normal first in second trimester (Primary Dx); 24 weeks gestation of Start: 04-30-2022 End: 04-30-2022 Subsequent hospital visit by physician Josse Walter MD Work Phone: [facility] Start: 04-09-2022 End: 04-09-2022 Subsequent care visit Josse Walter MD Work Phone: [facility] TRAIN GATE ATTENDANT Comment on above: care in sec ond trimester (Primary Dx) Start: 04-09-2022 End: 04-09-2022 Subsequent hospital visit by physician Lemuel Lee MD Work Phone: [facility] Start: 03-12-2022 End: 03-12-2022 Subsequent care visit Lemuel Lee MD Work Phone: [facility] TRAIN GATE ATTENDANT Comment on above: Encounter for superv ision of normal first in second trimester (Primary Dx); 17 weeks gestation of Start: 03-12-2022 End: 03-12-2022 Subsequent hospital visit by physician Lemuel Lee MD Work Phone: [facility] Start: 02-02-2022 End: 02-02-2022 Subsequent hospital visit by physician Lemuel Lee MD Work Phone: [facility] Start: 02-02-2022 End: 02-02-2022 Subsequent care visit Josse Walter MD Work Phone: [facility] TRAIN GATE ATTENDANT Comment on above: Dysuria (Primary Dx) Start: 01-26-2022 End: 01-26-2022 Subsequent hospital visit by physician Josse Walter MD Work Phone: [facility] Start: 01-09-2022 End: 01-09-2022 Office outpatient visit 5 minutes Lemuel Lee MD Work Phone: [facility] TRAIN GATE ATTENDANT Comment on above: 8 weeks gestation of (Primary Dx) Start: 12-17-2021 End: 12-17-2021 Office outpatient visit 15 minutes Lemuel Lee MD Work Phone: [facility] TRAIN GATE ATTENDANT Comment on above: Pelvic pain in pregn deonna, antepartum, first trimester (Primary Dx) Start: 11-24-2021 End: 11-24-2021 Office outpatient visit 15 minutes Lemuel Lee MD [facility] TRAIN GATE ATTENDANT Comment on above: Infertility associat ed with anovulation (Primary Dx) Start: 01-30-2020 End: 01-30-2020 Office outpatient visit 25 minutes Татьяна Brooke Work Phone: [facility] Comment on above: Weight gain (Primary Dx); PCOS (polycystic ovarian syndrome) Start: 10-12-2019 End: 10-12-2019 Office outpatient visit 25 minutes Татьяна Brooke Work Phone: [facility] Comment on above: PCOS (polycystic ova chandler syndrome) (Primary Dx) Start: 09-25-2019 End: 09-25-2019 Office outpatient visit 25 minutes Татьяна Brooke Work Phone: [facility] Comment on above: Weight gain (Primary Dx) Start: 01-31-2019 End: 02-04-2019 Patient encounter procedure ANAND COOLEY [facility] Start: 01-21-2018 End: 01-21-2018 Office/outpatient visit, est, level 3 Anand Cooley Work Phone: [facility] Start: 08-31-2017 End: 08-31-2017 Emergency department patient visit Michael Aisha Facility:[facility] Date Procedure Procedure Detail Performing Clinician Start: 01-18-2025 Urine culture Keyla cardenas SALES INCENTIVE ANALYST-C Work Phone: Start: 12-25-2024 Gonadotropin chorion ic qualitative Upsol Fuentes MD Work Phone: Start: 06-15-2024 Lipid 1996 panel - S jai or Plasma Anna Fuentes MD Work Phone: Start: 12-07-2023 Iaadiadoo streptococ cus group a Amy PALMER Work Phone: Start: 10-26-2023 Microscopic observat ion [Identifier] in Cervix by Cyto stain Keyla Meneses DECORATOR [employer] Work Phone: Start: 09-29-2023 Iaadiadoo influenza Benita Walter WEB ANALYTICS DEVELOPER-DECORATOR [employer] Work Phone: Start: 09-29-2023 SARS-CoV-2 (COVID-19 ) RNA [Presence] in Unspecified specimen by NELLY with probe detection Jelena Walter WEB ANALYTICS DEVELOPER-DECORATOR [employer] Work Phone: Start: 07-21-2023 Adult depression scr eening assessment Татьяна Brooke DECORATOR [employer] Work Phone: Start: 09-21-2022 Microscopic observat ion [Identifier] in Cervix by Cyto stain Татьяна Brooke DECORATOR [employer] Work Phone: Start: 08-12-2022 Blood count complete auto&auto difrntl wbc Lemuel Lee MD Work Phone: Start: 08-11-2022 End: 08-11-2022 Blood count complete auto&auto difrntl wbc Lemuel Lee MD Work Phone: Start: 08-11-2022 Drug test prsmv read direct optical obs pr date Lemuel Lee MD Work Phone: Start: 08-11-2022 Sars-cov-2 detection by dna/rna Lemuel Lee MD Work Phone: Start: 08-05-2022 nonstress test Ty irma Lee MD Work Phone: Start: 07-30-2022 nonstress test Ty irma Lee MD Work Phone: Start: 07-23-2022 nonstress test Jovan Lee MD Work Phone: Start: 07-21-2022 Adult depression scr eening assessment Татьяна Brooke DECORATOR [employer] Work Phone: Start: 07-17-2022 Hemoglobin glycosylated a1c Lauren Jeremy Ana WEB ANALYTICS DEVELOPER-DECORATOR [employer] Work Phone: Start: 07-17-2022 nonstress test Sh nusrat Luna Ana WEB ANALYTICS DEVELOPER-DECORATOR [employer] Work Phone: Start: 07-13-2022 Complete blood count with white cell differential, automated Josse Walter MD Work Phone: Start: 07-13-2022 Comprehensive metabo lic panel Josse Walter MD Work Phone: Start: 07-09-2022 nonstress test Ty irma Lee MD Work Phone: Start: 06-29-2022 nonstress test Jovan Lee MD Work Phone: Start: 06-25-2022 nonstress test Jovan Lee MD Work Phone: Start: 06-18-2022 nonstress test Jovan Lee MD Work Phone: Start: 06-18-2022 Us preg uterus real time f/u trnsabdl per fetus Lemuel Lee MD Work Phone: Start: 06-15-2022 Ecg routine ecg w/le ast 12 lds trcg only w/o i&r Lemuel Lee MD Work Phone: Start: 05-22-2022 nonstress test Roshni Walter MD Work Phone: Start: 04-09-2022 Us preg uterus after 1st trimest 09/13 gestation Josse Walter MD Work Phone: Start: 02-02-2022 Us uterus 1 4 wk transabdl 09/13 gestat Josse Walter MD Work Phone: Start: 01-26-2022 Us uterus 1 4 wk transabdl 09/13 gestat Josse Walter MD Work Phone: Start: 01-09-2022 RAPID TOX SCREEN WIT H RELEX TO [facility] Josse Walter MD Work Phone: Start: 01-09-2022 Antibody screen Josse Walter MD Work Phone: Start: 01-09-2022 Blood typing serologic abo Josse Walter MD Work Phone: Start: 01-09-2022 Complete blood count with white cell differential, automated Josse Walter MD Work Phone: Start: 01-09-2022 Iaad ia hiv-1 ag w/h iv-1 & hiv-2 antbdy single Josse Walter MD Work Phone: Start: 01-30-2020 Thyrotropin [Units/v olume] in Serum or Plasma by Detection limit <= 0.005 mIU/L Татьяна Brooke Work Phone: Start: 09-25-2019 Comprehensive metabo lic 2000 panel - Serum or Plasma Татьяна Brooke Work Phone: Start: 09-25-2019 Follitropin [Units/v olume] in Serum or Plasma Татьяна Brooke Work Phone: Start: 09-25-2019 Lutropin [Units/volu me] in Serum or Plasma Татьяна Brooke Work Phone: Start: 09-25-2019 Thyrotropin [Units/v olume] in Serum or Plasma by Detection limit <= 0.005 mIU/L Татьяна Brooke Work Phone: Start: 09-25-2019 Adult depression scr eening assessment Татьяна Brooke Start: 07-14-2017 Microscopic observat ion [Identifier] in Cervix by Cyto stain Татьяна Brooke Plan of Treatment Date Care Activity Detail Author Start: 2045 Zoster Vaccines (1 of 2) Zoster Vaccines (1 of 2) [facility] Start: 06-15-2029 Lipid panel Lipid Panel [facility] Start: 10-26-2026 Screening for malignant neoplasm of cervix Pap Smear [facility] Start: 09-21-2025 Screening for malignant neoplasm of cervix Pap Smear [facility] Start: 05-14-2025 Influenza vaccination Influenza Vaccine (Season Ended) [facility] Start: 03-27-2025 End: 03-27-2025 Patient encounter procedure 03/27/2025 2:00 PM EDT Office Visit [facility] [address] [place] [id number] Anna Fuentes MD [facility] Zhao Cabrera [address] [id number] [facility] Start: 03-10-2025 COVID-19 Vaccine ( season) COVID-19 Vaccine ( season) [facility] Comment on above: Postponed from 05/14/2023 (Treatment Not Available) Start: 03-06-2025 Depression screening using PHQ-9 (Patient Health Questionnaire 9) score Depression Screening/Follow-Up (PHQ-2/9) [facility] Start: 11-01-2024 End: 11-01-2024 Patient encounter procedure 11/01/2024 2:50 PM EST Office Visit [facility] TRAIN GATE ATTENDANT [address] [place] [phone] Lemuel Lee MD [address] [place] [phone] [facility] TRAIN GATE ATTENDANT Start: 10-26-2024 History and physical examination, annual for health maintenance Wellness Visit [facility] Start: 10-26-2024 Screening for malignant neoplasm of cervix CERVICAL CANCER SCREENING DISCUSSION [facility] Start: 07-21-2024 Depression screening using PHQ-9 (Patient Health Questionnaire 9) score Depression Screening (PHQ-2/9) [facility] Start: 07-21-2024 History and physical examination, annual for health maintenance Wellness Visit [facility] Start: 06-09-2024 End: 06-09-2024 Patient encounter procedure 06/09/2024 1:00 PM EDT Initial consult [facility] [address] [place] [address] Keyla Meneses, DECORATOR [employer] [address] [place] [address] Anna Fuentes MD [facility] Zhao Cabrera [address] [id number] [facility] Start: 05-18-2024 End: 05-18-2024 Patient encounter procedure 05/18/2024 8:00 AM EDT Office Visit [facility] [address] [place] [id number] Keyla Meneses, DECORATOR [employer] [address] [place] [address] [facility] Start: 05-14-2024 COVID-19 Vaccine ( season) COVID-19 Vaccine ( season) [facility] Start: 05-14-2024 COVID-19 Vaccine ( season) COVID-19 Vaccine ( season) [facility] Start: 05-14-2024 Influenza vaccination [facility] Start: 04-27-2024 End: 04-27-2024 Patient encounter procedure 04/27/2024 8:00 AM EDT Office Visit [facility] [address] [place] [address] Keyla Meneses, MED [address] [place] [address] [facility] Start: 04-06-2024 End: 04-06-2024 Patient encounter procedure 04/06/2024 8:30 AM EDT Office Visit [facility] [address] [place] [address] Keyla Meneses, DECORATOR [employer] [address] [place] [address] [facility] Start: 03-12-2024 Influenza vaccination Sequential Influenza Vaccine (#1) [facility] Comment on above: Postponed from 05/14/2023 (Patient Refus ed) Start: 12-07-2023 End: 12-06-2024 Throat culture [facility] Comment on above: Expected: 12/07/2023, Expires: Start: 12-01-2023 End: 12-01-2023 Patient encounter procedure 12/01/2023 8:30 AM EDT Office Visit [facility] [address] [place] [address] Татьяна Brooke, DECORATOR [employer] [address] [place] [address] [facility] Start: 10-26-2023 End: 10-26-2023 Patient encounter procedure [facility] TRAIN GATE ATTENDANT Start: 10-26-2023 End: 10-26-2024 [facility]-LIGHTNING PROTECTION INSTALLER, LIQUID BASED [facility]-LIGHTNING PROTECTION INSTALLER, LIQUID BASED Cytology Routine Well woman exam with routine gynecological exam Cervical cancer screening Expected: 10/26/2023, Expires: 10/26/2024 [facility] [employer] [facility] Comment on above: Expected: 10/26/2023, Expires: Start: 09-21-2023 Screening for malignant neoplasm of cervix [facility] Start: 09-01-2023 End: 09-01-2023 Patient encounter procedure 09/01/2023 8:30 AM EST Office Visit [facility] [address] [place] [address] Татьяна Brooke, DECORATOR [employer] [address] [place] [address] [facility] Start: 07-21-2023 Depression screening using PHQ-9 (Patient Health Questionnaire 9) score Depression Screening (PHQ-2/9) [facility] Start: 07-21-2023 History and physical examination, annual for health maintenance Wellness Visit [facility] Start: 05-14-2023 COVID-19 VACCINE () COVID-19 VACCINE () [facility] Start: 05-14-2023 Influenza vaccination [facility] Start: 01-26-2023 GONORRHEA SCREEN GONORRHEA SCREEN [facility] Start: 01-26-2023 Screening for Chlamydia trachomatis CHLAMYDIA SCREEN [facility] Start: 10-22-2022 History and physical examination, annual for health maintenance Wellness Visit [facility] Start: 10-22-2022 Screening for malignant neoplasm of cervix CERVICAL CANCER SCREENING DISCUSSION [facility] Start: 08-05-2022 End: 08-05-2022 Follow-up encounter 08/05/2022 Follow Up Visit TRAIN GATE ATTENDANT Lemuel Lee MD [address] [place] [phone] [facility] TRAIN GATE ATTENDANT Start: 07-30-2022 End: 07-30-2022 Follow-up encounter 07/30/2022 Follow Up Visit TRAIN GATE ATTENDANT Lemuel Lee MD [address] [phone] [facility] TRAIN GATE ATTENDANT Start: 07-23-2022 End: 07-23-2022 Follow-up encounter 07/23/2022 Follow Up Visit TRAIN GATE ATTENDANT Lemuel Lee MD [address] [place] [phone] [facility] TRAIN GATE ATTENDANT Start: 07-17-2022 End: 07-17-2023 BETA STREP, VAGINAL SCREEN [facility] Comment on above: Expected: 07/17/2022, Expires: Start: 07-17-2022 End: 07-17-2022 Follow-up encounter 07/17/2022 Follow Up Visit TRAIN GATE ATTENDANT Lauren Perez, WEB ANALYTICS DEVELOPER-DECORATOR [employer] [id number] [place] [address] [facility] TRAIN GATE ATTENDANT Start: 07-17-2022 End: 07-17-2022 Patient encounter procedure 07/17/2022 Appointment Ultrasound Lauren Perez, WEB ANALYTICS DEVELOPER-DECORATOR [employer] [id number] [place] [address] [facility] Start: 07-09-2022 End: 07-09-2023 OB ultrasound panel US OB GROWTH/DATING > 14WEEKS Imaging Routine Diet controlled gestational diabetes mellitus (GDM) in third trimester Expected: 07/09/2022, Expires: 07/09/2023 [facility] Comment on above: Expected: 07/09/2022, Expires: Start: 07-09-2022 End: 07-09-2022 Follow-up encounter 07/09/2022 Follow Up Visit TRAIN GATE ATTENDANT Lemuel Lee MD [address] [place] [address] [facility] TRAIN GATE ATTENDANT Start: 07-07-2022 End: 07-07-2022 Telemedicine consultation with patient 07/07/2022 Telemedicine Telephone Nutrition Lemuel Lee MD [address] [place] [address] Татьяна Villegas RN [facility] Start: 06-30-2022 End: 06-30-2022 Telemedicine consultation with patient 06/30/2022 Telemedicine Nutrition Lemuel Lee MD [address] [place], [place] [phone] Marianna Aguilar, LEANDRO [facility] Start: 06-29-2022 End: 06-29-2022 Follow-up encounter 06/29/2022 Follow Up Visit TRAIN GATE ATTENDANT Lemuel Lee MD [address] [place] [address], [place] [phone] [facility] TRAIN GATE ATTENDANT Start: 06-25-2022 End: 06-25-2022 Follow-up encounter 06/25/2022 Follow Up Visit TRAIN GATE ATTENDANT Josse Walter MD [address] [place] [address] Lemuel Lee MD [address] [place] [address], [place] [address] [facility] TRAIN GATE ATTENDANT Start: 06-18-2022 End: 06-18-2022 Follow-up encounter 06/18/2022 Follow Up Visit TRAIN GATE ATTENDANT Lemuel Lee MD [address] [place] [address], [place] [address] [facility] TRAIN GATE ATTENDANT Start: 06-18-2022 End: 06-18-2022 Patient encounter procedure 06/18/2022 Appointment Ultrasound Lemuel Lee MD [address] [place] [address] [facility]TR[facility] Start: 06-17-2022 End: 06-17-2022 Nutrition therapy 06/17/2022 Nutrition Nutrition Татьяна Villegas, NEGRO [facility] Start: 06-11-2022 End: 06-11-2022 Follow-up encounter 06/11/2022 Follow Up Visit TRAIN GATE ATTENDANT Josse Walter MD [address] [place] [phone] [facility] TRAIN GATE ATTENDANT Start: 06-03-2022 End: 06-03-2022 Patient encounter procedure 06/03/2022 Appointment Ultrasound Tristan Samuel MD [address] [place] [address] Lemuel Lee MD [address] [place] [phone] [facility] OB ULTRASOUND Start: 05-28-2022 End: 05-28-2022 Follow-up encounter 05/28/2022 Follow Up Visit TRAIN GATE ATTENDANT Lemuel Lee MD [address] [phone] [facility] TRAIN GATE ATTENDANT Start: 05-14-2022 Influenza vaccination [facility] Start: 04-30-2022 End: 04-30-2022 Follow-up encounter 04/30/2022 Follow Up Visit TRAIN GATE ATTENDANT Lemuel Lee MD [address] [phone] [facility] TRAIN GATE ATTENDANT Start: 04-30-2022 End: 04-30-2022 Patient encounter procedure 04/30/2022 Appointment Ultrasound Josse Walter MD [address] [place] [phone] [facility] OB ULTRASOUND Start: 04-09-2022 End: 04-09-2022 Follow-up encounter 04/09/2022 Follow Up Visit TRAIN GATE ATTENDANT Josse Walter MD [address] [place] [phone] [facility] TRAIN GATE ATTENDANT Start: 04-09-2022 End: 04-09-2022 Patient encounter procedure 04/09/2022 Appointment Ultrasound Lemuel Lee MD [address] [place] [phone] [facility] ULTRASOUND Start: 03-12-2022 End: 03-12-2022 Follow-up encounter 03/12/2022 Follow Up Visit TRAIN GATE ATTENDANT Lemuel Lee MD 1200 [facility] [address] [place] [phone] [facility] TRAIN GATE ATTENDANT Start: 03-12-2022 End: 03-12-2022 Patient encounter procedure 03/12/2022 Appointment Ultrasound Lemuel Lee MD 1200 [facility] [address] [place] [phone] [facility]TR[facility] Start: 03-12-2022 End: 03-12-2023 [id number] [Presence] in Serum or Plasma [facility] Comment on above: Expected: 03/12/2022, Expires: Start: 01-26-2022 End: 01-26-2022 Follow-up encounter 01/26/2022 Follow Up Visit TRAIN GATE ATTENDANT Josse Walter MD 1200 [facility] [address] [place] [phone] [facility] TRAIN GATE ATTENDANT Start: 01-26-2022 End: 01-26-2022 Patient encounter procedure 01/26/2022 Appointment Ultrasound Josse Walter MD [address] [phone] [facility] ULTRASOUND Start: 01-09-2022 End: 01-09-2023 Bacteria identified in Urine by Culture [facility] Comment on above: Expected: 01/09/2022, Expires: Start: 01-09-2022 End: 01-09-2022 Clinical Support Encounter 01/09/2022 Clinical Support Encounter TRAIN GATE ATTENDANT [facility] TRAIN GATE ATTENDANT Start: 01-09-2022 End: 01-09-2023 HEPATITIS B SURFACE ANTIGEN [facility] Work Phone: Comment on above: Expected: 01/09/2022, Expires: 3 Start: 01-09-2022 End: 01-09-2023 OB ultrasound panel US OB DATING ABDOMINAL < 14WEEKS Imaging Routine 8 weeks gestation of Expected: 01/09/2022, Expires: 01/09/2023 [facility] Comment on above: Expected: 01/09/2022, Expires: 3 Start: 01-09-2022 End: 01-09-2023 RPR WITH FTA REFLEX [facility] Comment on above: Expected: 01/09/2022, Expires: 3 Start: 01-09-2022 End: 01-09-2023 RUBELLA IMMUNE STATUS IGG ANTIBODY [facility] Comment on above: Expected: 01/09/2022, Expires: 3 Start: 01-09-2022 End: 01-09-2023 VARICELLA IGG AB (IMM STATUS) [facility] Comment on above: Expected: 01/09/2022, Expires: 3 Start: 05-14-2021 Influenza vaccination INFLUENZA VACCINE (#1) [facility] Start: 09-25-2020 Depression screening using PHQ-9 (Patient Health Questionnaire 9) score [facility] Start: 09-25-2020 Tetanus vaccination [facility] Comment on above: Postponed from 1995 (Patient Refus ed) Start: 07-14-2020 Screening for malignant neoplasm of cervix PAP SMEAR [facility] Start: 01-11-2020 End: 01-11-2020 Office Visit 01/11/2020 Office Visit Primary Care Татьяна Brooke, DEC[employer] [address] [place] [address] [phone] [facility] Start: 09-25-2019 End: 09-25-2020 Plasma dehydroepiandrosterone sulfate level DHEA-Sulfate Lab Add-On Weight gain Expected: 09/25/2019, Expires: 09/25/2020 [facility] Comment on above: Expected: 09/25/2019, Expires: 1 Start: 09-25-2019 End: 09-25-2020 Testosterone [Mass/Vol] Testosterone, Total Lab Add-On Weight gain Expected: 09/25/2019, Expires: 09/25/2020 [facility] Comment on above: Expected: 09/25/2019, Expires: Start: 07-14-2018 Screening for Chlamydia trachomatis Chlamydia Screening [facility] Start: 05-14-2018 Influenza vaccination SEQUENTIAL INFLUENZA VACCINE (Season Ended) [facility] Start: 2017 DTaP/Tdap/Td Vaccines (2 - Tdap) DTaP/Tdap/Td Vaccines (2 - Tdap) [facility] Start: 02-10-2016 Screening for malignant neoplasm of cervix [facility] Start: 2014 Hepatitis B vaccination HEP B VACCINE (1 of 3 - 19+ 3-dose series) [facility] Start: 2014 Hepatitis B Vaccines (1 of 3 - 19+ 3-dose series) Hepatitis B Vaccines (1 of 3 - 19+ 3-dose series) [facility] Start: 2014 Third diphtheria, tetanus and acellular pertussis (DTaP) vaccination TDAP (ADULT) [facility] Start: 2013 Hepatitis C screening Hepatitis C Screening [facility] Start: 2013 Tetanus vaccination TETANUS [facility] Start: 2011 Screening for Chlamydia trachomatis CHLAMYDIA SCREEN [facility] Start: 2010 HIV screening [facility] Start: 02-10-2008 Varicella vaccination Varicella Vaccines (1 of 2 - 13+ 2-dose series) [facility] Start: 2006 Vaccination for human papillomavirus [facility] Start: 02-10-2000 COVID-19 VACCINE (#1) COVID-19 VACCINE (#1) [facility] Start: 02-10-2000 COVID-19 VACCINE (1) COVID-19 VACCINE (1) [facility] Start: 1998 History and physical examination, annual for health maintenance Wellness Visit [facility] Start: 1995 COVID-19 VACCINE (#1) COVID-19 VACCINE (#1) [facility] Start: 1995 Fasting lipid profile Lipid Panel [facility] Start: 1995 GONORRHEA SCREEN GONORRHEA SCREEN [facility] Start: 1995 Hepatitis B vaccination HEP B VACCINE (1 of 3 - 3-dose series) [facility] Start: 1995 Hepatitis C antibody, confirmatory test HEPATITIS C VIRUS SCREENING [facility] Start: 1995 Hepatitis C screening HEPATITIS C VIRUS SCREENING [facility] Start: 1995 Lipid panel Lipid Panel [facility] Start: 1995 Screening for malignant neoplasm of cervix PAP SMEAR [facility] Start: 1995 Tetanus vaccination [facility] Start: 1995 Yearly Adult Physical Yearly Adult Physical [facility] End: 04-06-2025 B12/Folate B12/Folate Lab Routine Chronic fatigue 1 Occurrences starting 04/06/2024 until 04/06/2025 [facility] Comment on above: 1 Occurrences starting 04/06/2024 until 04/06/2025 Bacteria identified in Urine by Culture URINE CULTURE Microbiology Today Dysuria 02/02/2022 4:48 PM EDT [facility] CBC W Auto Different ial panel - Blood [facility] End: 04-06-2025 Complete blood count with white cell differential, manual CBC and Differential Lab Routine Chronic fatigue 1 Occurrences starting 04/06/2024 until 04/06/2025 [facility] Comment on above: 1 Occurrences starting 04/06/2024 until 04/06/2025 End: 01-21-2019 Comprehensive metabolic panel [AGGREGATE] Comprehensive Metabolic Panel Routine Weight gain 1 Occurrences starting 01/21/2018 until 01/21/2019 [facility] End: 01-29-2021 Free T3 [Mass/Vol] T3, Free Lab Routine Weight gain 1 Occurrences starting 01/30/2020 until 01/29/2021 [facility] Comment on above: 1 Occurrences starting 01/30/2020 until 01/29/2021 Free T3 [Mass/Vol] T3, Free Lab Routine Weight gain 01/30/2020 8:29 AM EDT [facility] Hemoglobin A1c/Hemoglobin.total in Blood [facility] Hepatitis C antibody measurement [facility] End: 09-25-2020 Insulin Qn Insulin, Total Lab Routine Weight gain 1 Occurrences starting 09/25/2019 until 09/25/2020 [facility] Comment on above: 1 Occurrences starting 09/25/2019 until 09/25/2020 Insulin Qn Insulin, Total L ab Routine Weight gain 09/25/2019 5:50 PM [facility] End: 04-06-2025 Iron measurement Iron Study with Ferritin Lab Routine Chronic fatigue 1 Occurrences starting 04/06/2024 until 04/06/2025 [facility] Work Phone: Comment on above: 1 Occurrences starting 04/06/2024 until 04/06/2025 PAP IG, RFX HPV ASCU PAP IG, RFX HPV ASCU Cytology Routine 10/26/2023 4:00 PM [facility] Plasma dehydroepiand rosterone sulfate level DHEA-Sulfate Lab Add-On Weight gain 09/25/2019 5:50 PM [facility] WA NON-STRESS TEST WA FETA L NON-STRESS TEST WA Charge Routine Decreased movements in second trimester, single or unspecified fetus Ordered: 05/22/2022 [facility] Comment on above: Ordered: 05/22/2022 Procedure [facility] End: 11-24-2022 PROGESTERONE PROGESTERONE Lab Routine Infertility associated with anovulation 6 Occurrences starting 11/24/2021 until 11/24/2022 [facility] Comment on above: 6 Occurrences starting 11/24/2021 until 11/24/2022 Rubella IgG measurement [facility] Serologic test for syphilis [facility] Testosterone [Mass/Vol] Testoste harriett, Total Lab Add-On Weight gain 09/25/2019 5:50 PM [facility] End: 01-21-2019 TSH TSH Routine Weight gain 1 Occurrences starting 01/21/2018 until 01/21/2019 [facility] End: 04-30-2022 US OB LIMITED/AMNIOTIC FLUID [facility] Work Phone: Comment on above: 1 Occurrences starting 04/30/2022 until 04/30/2022 [facility] Immunizations Immunization Date Immunization Notes Care Provider Fa [facility] 08-11-2022 varicella zoster imm une globulin Lemuel Lee MD Work Phone: [facility] 08-11-2022 measles, mumps and rubella virus vaccine Lemuel Lee MD Work Phone: [facility] 06-15-2019 influenza, injectabl e, quadrivalent, preservative free Татьяна Brooke [facility] 06-15-2019 influenza virus vaccine, unspecified formulation Lemuel Lee MD Work Phone: [facility] 11-27-1999 diphtheria, tetanus toxoids and acellular pertussis vaccine, unspecified formulation Татьяна [facility] 11-27-1999 measles, mumps and rubella virus vaccine Татьяна [facility] Payers Date Payer Category Payer Self-pay 2021 Jarrett Hidalgo [facility] Managed Care [employer] Member Subscriber Plan / Payer (Effective 2021-Present) Name: Drake Petty Relation to Subscriber: Self Name: Drake Petty Payer ID: [id number] (NAIC) Type: Not on file Address: [place] [id number] 2019 Jarrett Hidalgo [facility] SEEMA UE/PREF/HMO/PPO [id number] 2019 Unknown ANTHEM SEEMA HIDALGO/PREF/HMO/PPO xxxxxxxxxxxx 2019-Present [id number] 2019 Unknown [id number]. 1.13.172.2. [id number] 2019 Unknown [id number] 2017 Unknown [id number] 1995 Unknown [id number] 2.16.840.1.691123.3.579.2. 900 1995 Unknown [id number] 2.16.840.1.956031.3.579.2. 1069 1995 Unknown [id number] 2.16.840.1.284133.3.579.2. 1069 1995 Unknown [id number] 2.16.840.1.026284.3.579.2. 983 1995 Unknown [id number] 2.16.840.1.702867.3.579.2. 98 1995 Unknown [id number] 2.16.840.1.731691.3.579.2. 983 1995 Unknown [id number] 2.16840.1.638213.3.579.2. 98 1995 Unknown [id number] 2.16.840.1.926759.3.579.2. 983 1995 Unknown [id number] 2.16.840.1.085704.3.579.2. 98 1995 Unknown [id number] 2.16.840.1.516200.3.579.2. 983 1995 Unknown [id number] 2.16.840.1.472269.3.579.2. 98 1995 Unknown [id number] 2.16.840.1.693873.3.579.2. 983 1995 Unknown [id number] 2.16.840.1.522566.3.579.2. 903 1995 Unknown [id number] 2.16.840.1.108414.3.579.2. 903 1995 Unknown [id number] 2.16.840.1.499382.3.579.2. 1243 1995 Unknown [id number] 2.16.840.1.339357.3.579.2. 903 1995 Unknown [id number] 2.16.840.1.778286.3.579.2. 903 1995 Unknown [id number] 2.16.840.1.980673.3.579.2. 903 1995 Unknown [id number] 2.16.840.1.198734.3.579.2. 903 1995 Unknown [id number] 2.16.840.1.497028.3.579.2. 903 1995 Unknown [id number] 2.16.840.1.710220.3.579.2. 903 1995 Unknown [id number] 2.16.840.1.714426.3.579.2. 903 1995 Unknown [id number] 2.16.840.1.234855.3.579.2. 903 Unknown [id number] 2.16.840.1.608737.3.579.2. 462 Unknown [id number] 2.16.840.1.843237.3.579.2. 462 Unknown [id number] 2.16.840.1.021443.3.579.2. 462 Unknown [id number] 2.16.840.1.534185.3.579.2. 462 Social History Date Type Detail Facility Start: 01-21-2018 End: 01-11-2025 Tobacco smoking status [facility] Never smoker [facility] Start: 1995 Sex Assigned At Not on file [facility] Start: 09-25-2019 End: 12-26-2024 Alcohol intake Current drinker of alcohol (finding) [facility] Start: 09-25-2019 End: 11-24-2021 History SDOH Alcohol Frequency 3 [facility] Start: 09-25-2019 End: 11-24-2021 History SDOH Alcohol Std Drinks 1 [facility] Start: 01-29-2020 End: 06-17-2022 History SDOH Social Connections Get Together 4 [facility] Start: 11-14-2021 End: 11-09-2024 Exposure to SARS-CoV-2 (event) Not sure [facility] Start: 04-21-2017 End: 06-17-2022 Tobacco use and exposure Smokeless tobacco non-user [facility] Start: 11-24-2021 End: 09-29-2023 Alcohol intake Ex-drinker (finding) [facility] Start: 11-24-2021 End: 06-17-2022 History SDOH Alcohol Std Drinks 0 [facility] Start: 11-24-2021 End: 06-17-2022 History SDOH Social Connections Phone 2 [facility] Start: 11-24-2021 End: 07-21-2022 History SDOH Financial 5 [facility] Start: 11-22-2021 [facility] Start: 06-17-2022 Education 17 [facility] Tobacco smoking consumption unknown [facility] Start: 06-17-2022 End: 07-21-2023 History of Social function [facility] Start: 06-17-2022 End: 07-21-2023 Humiliation, Afraid, Rape, and Kick questionnaire [HARK] [facility] Within the last year , have you been afraid of your partner or ex-partner? No [facility] Are you now , , , , never or living with a partner? [facility] How often to you hav e a drink containing alcohol? Never [facility] How many standard drinks containing alcohol do you have on a typical day? Patient does not drink [facility] Do you feel stress - tense, restless, nervous, or anxious, or unable to sleep at night because your mind is troubled all the time - these days [OSQ] To some extent [facility] (I/We) worried wheth er (my/our) food would run out before (I/we) got money to buy more. Never true [facility] Start: 04-21-2017 Gender identity Identifies as female gender (finding) [facility] Start: 01-31-2019 Sexual orientation Heterosexual (fin kadeem) [facility] Do you feel stress - tense, restless, nervous, or anxious, or unable to sleep at night because your mind is troubled all the time - these days [OSQ] Not at all [facility] Start: 10-26-2023 Alcohol Comment consumes occassional ly [facility] Start: 03-06-2024 Alcohol Comment occasional [facility] Start: 1995 Sex Assigned At Female [facility] NEGATED: Highlighted rowStart: CLEM History of tobacco use Passive smoker [facility] Medical Equipment Procedure Code Equipment Code Equipment Origin al Text Equipment Identifier Dates Droplet Pen Need les 32G X 4 MM Misc [id number] Start: 11-03-[address] to check fasting BS every morning and then two hours after each meal. [id number] Start: 06-11-2022 End: 08-13-[address] to check BS every morning and then two hours after each meal. [id number] Start: 06-11-[address] TO CHECK FASTING BLOOD SUGAR EVERY MORNING AND THEN TWO HOURS AFTER EACH MEAL [id number] Start: 07-02-2022 End: 09-01-2023 Goals Date Patient Goal Desired Activity /State Personal health goal Personal health goal Clinical Notes 11-24-2021 to 01-02-2025 Note Date & Type Note Facility 01-02-2025 Evaluation note Diagnosis Onset Date Resolution Supervision of high-risk acute January 02, 2025 8:21am Depression with anxiety acute M ay 2024 8:46am History of gestational diabetes mellitus (GDM) in prior , currentl acute January 18, 2025 8: 46am Hx of forceps delivery in prior , currently acute January 18, 2025 8:46am PCOS (polycystic ovarian syndrome) acute January 18, 2025 8:46am acute January 18, 2025 8:46am Supervision of high-risk acute January 18 8:46am [facility] Work Phone: 1(862) 691-785904-22-2025 Evaluation note* Diagnosis Onset Date Resolution Status Admit Date Supervision of high-risk acute January 02, 2025 8:21am Depression with anxiety acute M ay 2024 8:46am History of gestational diabe rommel mellitus (GDM) in prior , currentl acute January 18 8:46am Hx of forceps delivery in pr ior , currently acute Ma y 8th, 2025 8:46am PCOS (polycystic ovarian syndrome) acute January 18, 2025 8: 46am acute January 18, 2025 8:46am Supervision of high-risk acute January 18, 2025 8: 46am Depression with anxiety acute J une 2024 1:18pm History of gestational diabe rommel mellitus (GDM) in prior , currentl acute March 01, 2 025 1:18pm Hx of forceps delivery in pr ior , currently acute Ju ne 2024 1:18pm PCOS (polycystic ovarian syndrome) acute March 01, 2025 1:18pm acute March 01 1:18pm Supervision of high-risk acute March 01, 2025 1:18pm [facility] Work Phone: 1(486) 931-558304-14-20[facility] 12/25/2024 Drake Petty, a 29 y.o. female, here for psychotropic medication management follow-up Patient is referred by Keyla Meneses CNP Interval History: Patient is here for follow-up visit. Patient was initially seen in May 2024 was diagnosed with unspecified episodic mood disorder, rule out bipolar 2. At that time patient consented to trial of lamotrigine which was titrated to 200 mg as per FDA guidelines. Patient has had no issues with rash. Patient had called last week and reported she found out by home testing that she was and requested information on lamotrigine during . Patient was asked to follow-up in the office Patient reports she has done really well on this medication. Moods are stable. Patient reports no pervasive irritability. Patient denies any ongoing racing thoughts or flight of ideas. Her sleep quality and quantity has been fair. Appetite is within normal limits. Impulse control has been fair. Patient denies any pervasive sadness or other depressive mood symptoms. Patient reports her quality of life has improved significantly since she has been therapeutic dose of lamotrigine. We completed the serum hCG qualitative test today. Patient is indeed . We discussed the pros and cons of being on lamotrigine. Lamotrigine safety has been documented through database where women who have been on lamotrigine while have provided significant evidence that there is no elevated risk of congenital abnormalities as compared to women who did not take lamotrigine. Lamotrigine is considered safe during . Patient verbalized understanding of the pros and cons and stated she would like to continue this medications while she is . Patient denies any ongoing drug or alcohol abuse. She denies any excessive worries or anxiety. PFSH: Past Medical History: Diagnosis Date ADHD Anxiety Anxiety and depression 04/27/2024 Gestational diabetes PCOS (polycystic ovarian syndrome) 10/12/2019 Social History Substance and Sexual Activity Alcohol Use Yes Comment: occasional Social History Substance and Sexual Activity Drug Use No Social History Substance and Sexual Activity Sexual Activity Yes Partners: Male control/protection: None Comment: Currently ASHLEE 08/20/22 Family History Problem Relation Age of Onset Rosacea Mother Hypertension Father Obesity Maternal Grandmother Obesity Maternal Grandfather Diabetes Maternal Grandfather Diabetes Paternal Grandmother ADD / ADHD Brother [place] The following portions of the patient's history were reviewed and updated as appropriate: allergies, current medications, past family history, past medical history, past social history, past surgical history, and problem list. Review of Systems Constitutional: Negative. HENT: Negative. Eyes: Negative. Respiratory: Negative. Cardiovascular: Negative. Gastrointestinal: Negative. Endocrine: Negative. Genitourinary: Negative. Musculoskeletal: Negative. Skin: Negative. Allergic/Immunologic: Negative. Neurological: Negative. Hematological: Negative. PSYCHIATRIC EXAM: Grooming & Hygiene: well groomed and casually dressed General Behavior: pleasant & cooperative Psychomotor Activity: no psychomotor abnormalities Speech: Normal rate tone and rhythm Flow to Thought: logical & goal directed Thought Associations: Intact Content of Thought: Denies any SI or HI Mood: Good Affect: full range Insight: good Judgment: good Orientation: alert and oriented to person, place, time Memory: Recent intact Attention: Good Concentration: Fair Language: Average Fund of Knowledge: Average Labs/ Diagnostic Imaging reviewed: Response to Medication: Good ASSESSMENT AND PLAN: Follow-up plan was discussed with patient. Impression/ Plan: Unspecified episodic mood disorder Rule out bipolar 2 6 weeks gestation Recommendations: Treatment Plan: Pharmacological management: Alternative medication plans were discussed with the patient/guardian. All relevant side effects and potential adverse effects were discussed with the patient/guardian. Standard cautions and potential benefits were discussed. FDA label and OFF label uses of medications were discussed. Patient/Guardian consented to the start/continuation of the following: Continue lamotrigine 200 mg p.o. daily. Jackson-Chnitan's rash was discussed/. Patient to monitor for rash/fever Will monitor side effects and progress and adjust medications appropriately Crisis Intervention plan was discussed and agreed upon. Patient/Guardian will call 911 in case of emergency. Emergency contact information was provided to the patient/guardian. Laboratory and other tests: See orders. Psychotherapy: none Follow up as scheduled or return early if needed. School or community referral: none (more content not included)...[facility]04-14-2025 History of Present illness Narrative* Anna Fuentes MD - 12/25/2024 1:54 PM EDT BEHAVIORAL HEALTH PSYCHIATRIC PROGRESS NOTE 12/25/2024 Drake Petty, a 29 y.o. female, here for psychotropic medication management follow-up Patient is referred by Keyla Meneses CNP Interval History: Patient is here for follow-up visit. Patient was initially seen in May 2024 was diagnosed with unspecified episodic mood disorder, rule out bipolar 2. At that time patient consented to trial oflamotrigine which was titrated to 200 mg as per FDA guidelines. Patient has had no issues with rash. Patient had called last week and reported she found out by home testing that she was and requested information on lamotrigine during . Patient was asked to follow-up in the office Patient reports she has done really well on this medication. Moods are stable. Patient reports no pervasive irritability. Patient denies any ongoing racing thoughts or flight of ideas. Her sleep quality and quantity has been fair. Appetite is within normal limits. Impulse control has been fair. Patient denies any pervasive sadness or other depressive mood symptoms. Patient reports her quality of life has improved significantly since she has been therapeutic dose of lamotrigine. We completed theserum hCG qualitative test today. Patient is indeed . We discussed the pros and cons of being on lamotrigine. Lamotrigine safety has been documented through database where women who have beenon lamotrigine while have provided significant evidence that there is no elevated risk of congenital abnormalities as compared to women who did not take lamotrigine. Lamotrigine is considered safe during . Patient verbalized understanding of the pros and cons and stated she would like to continue this medications while she is . Patient denies any ongoing drug or alcohol abuse. She denies any excessive worries or anxiety. PFSH: Past Medical History: Diagnosis Date ADHD Anxiety Anxiety and depression 04/27/2024 Gestational diabetes PCOS (polycystic ovarian syndrome) 10/12/2019 Social History Substance and Sexual Activity Alcohol Use Yes Comment: occasional Social History Substance and Sexual Activity Drug Use No Social History Substance and Sexual Activity Sexual Activity Yes Partners: Male control/protection: None Comment: Currently ASHLEE 08/20/22 Family History Problem Relation Age of Onset Rosacea Mother Hypertension Father Obesity Maternal Grandmother Obesity Maternal Grandfather Diabetes Maternal Grandfather Diabetes Paternal Grandmother ADD / ADHD Brother Rufina The following portions of the patient's history were reviewed and updated as appropriate: allergies, current medications, past family history, past medical history, past social history, past surgicalhistory, and problem list. Review of Systems Constitutional: Negative. HENT: Negative. Eyes: Negative. Respiratory: Negative. Cardiovascular: Negative. Gastrointestinal: Negative. Endocrine: Negative. Genitourinary: Negative. Musculoskeletal: Negative. Skin: Negative. Allergic/Immunologic: Negative. Neurological: Negative. Hematological: Negative. PSYCHIATRIC EXAM: Grooming & Hygiene: well groomed and casually dressed General Behavior: pleasant & cooperative Psychomotor Activity: no psychomotor abnormalities Speech: Normal rate tone and rhythm Flow to Thought: logical & goal directed Thought Associations: Intact Content of Thought: Denies any SI or HI Mood: Good Affect: full range Insight: good Judgment: good Orientation: alert and oriented to person, place, time Memory: Recent intact Attention: Good Concentration: Fair Language: Average Fund of Knowledge: Average Labs/ Diagnostic Imaging reviewed: Response to Medication: Good ASSESSMENT AND PLAN: Follow-up plan was discussed with patient. Impression/ Plan: Unspecified episodic mood disorder Rule out bipolar 2 6 weeks gestation Recommendations: Treatment Plan: Pharmacological management: Alternative medication plans were discussed with the patient/guardian. All relevant side effects and potential adverse effects were discussed with the patient/guardian. Standard cautions and potential benefits were discussed. FDA label and OFF label uses of medications were discussed. Patient/Guardian consented to the start/continuation of the following: Continue lamotrigine 200 mg p.o. daily. Jackson-Chintan's rash was discussed/. Patient to monitor for rash/fever Will monitor side effects and progress and adjust medications appropriately Crisis Intervention plan was discussed and agreed upon. Patient/Guardian will call 911 in case of emergency. Emergency contact information was provided to the patient/guardian. Laboratory and other tests: See orders. Psychotherapy: none Follow up as scheduled or return early if needed. School or community referral: none Treatment Goals and Objectives discussed. Other Referrals/Consults/Psychological Testing: none Anna Fuentes MD documented in this [id number] History of Present illness Narrative* Antonio Lopez PA-C - 11/09/2024 12:50 PM EST [facility] CAROL NOTE: Name: Drake Petty, 29 y.o. CSN:[id number] PCP: Anand Cooley, ALL: No Known Allergies History: Chief Complaint: Sinus Problem (Pt states sinus pressure, congestion, and change in color of mucus.Pt states sx started Wednesday. ) Encounter Date: 11/09/2024 12:55 HPI: The history was obtained from the patient. Drake is a 29 y.o. female, who presents with a chief complaint of Sinus Problem (Pt states sinus pressure, congestion, and change in color of mucus. Pt states sx started Wednesday. ) leaving for [place] soon for business trip, would like this to be at least managed before she leaves. She's used OTC APAP and this has been modestly helpful; night time meds seem more effective. and 2y/o son just got over the lfu on Wednesday -> noted fevers, mother mentions she did begin to show some URI symptoms and she wasn't sure if this was similar as she did not have a high fever. PMHx: PCOS Current Outpatient Medications Medication Sig Dispense Refill liraglutide (Victoza 2-Russel) 0.6 mg/0.1 mL (18 mg/3 mL) injection Inject 0.6 mg every day for one week, then inject 1.2 mg every day for one week, then inject 1.8 mg every day vmkjsmtpywhtuva-[id number]-QP 2-30-10 mg/5 mL syrup Take 5 mL by mouth once daily at bedtime for 10 days. 120 mL 0 ipratropium (Atrovent) 42 mcg (0.06 %) nasal spray Administer 2 sprays into each nostril 4 times a day for 7 days. 15 mL 0 metFORMIN (Glucophage) 500 mg tablet Take 1 tablet (500 mg) by mouth once daily with breakfast. predniSONE (Deltasone) 10 mg tablet Take 3 tablets (30 mg) by mouth once daily for 7 days. 21 tablet 0 No current facility-administered medications for this visit. PMSx: Left wrist surgery Left menisectomy Fam Hx: No family history on file. SOC. Hx: Social History Socioeconomic History Marital status: Spouse name: Not on file Number of children: Not on file Years of education: Not on file Highest education level: Not on file Occupational History Not on file Tobacco Use Smoking status: Not on file Smokeless tobacco: Not on file Substance and Sexual Activity Alcohol use: Not on file Drug use: Not on file Sexual activity: Not on file Other Topics Concern Not on file Social History Narrative Not on file Social Drivers of Health Financial Resource Strain: Low Risk (07/21/2023) Received from [facility] Overall Financial Resource Strain (CARDIA) Difficulty of Paying Living Expenses: Not hard at all Food Insecurity: No Food Insecurity (07/21/2023) Received from [facility] Hunger Vital Sign Worried About Running Out of Food in the Last Year: Never true Ran Out of Food in the Last Year: Never true Transportation Needs: No Transportation Needs (07/21/2023) Received from [facility] PRAPARE - Transportation Lack of Transportation (Medical): No Lack of Transportation (Non-Medical): No Physical Activity: Inactive (06/17/2022) Received from [facility] Exercise Vital Sign Days of Exercise per Week: 0 days Minutes of Exercise per Session: 0 min Stress: Stress Concern Present (06/17/2022) Received from [facility] [employer] [place] [employer] - Occupational Stress Questionnaire Feeling of Stress : To some extent Social Connections: Moderately Isolated (06/17/2022) Received from [facility] Social Connection and Isolation Panel [NHANES] Frequency of Communication with Friends and Family: More than three times a week Frequency of Social Gatherings with Friends and Family: Three times a week Attends Nondenominational Services: Never Active Member of Clubs or Organizations: No Attends Club or Organization Meetings: Never Marital Status: Intimate Partner Violence: Not At Risk (06/17/2022) Received from [facility] Humiliation, Afraid, Rape, and Kick questionnaire Fear of Current or Ex-Partner: No Emotionally Abused: No Physically Abused: No Sexually Abused: No Housing Stability: Low Risk (06/17/2022) Received from [facility] Housing Stability Vital Sign Unable to Pay for Housing in the Last Year: No Number of Places Lived in the Last Year: 1 Unstable Housing in the Last Year: No Vitals: 11/09/24 1309 BP: 129/84 Pulse: 98 Resp: 16 Temp: 36.6 C (97.8 F) SpO2: 97% 72.6 kg (160 lb) Physical Exam Vitals reviewed. Constitutional: Appearance: Normal appearance. HENT: Head: Normocephalic and atraumatic. Nose: Mucosal edema and congestion present. Right Turbinates: Enlarged and swollen. Left Turbinates: Enlarged and swollen. Mouth/Throat: Mouth: Mucous membranes are moist. Pharynx: No oropharyngeal exudate. Eyes: Extraocular Movements: Extraocular movements intact. Pupils: Pupils are equal, round, and reactive to light. Cardiovascular: Rate and Rhythm: Normal rate. Pulses: Normal pulses. Pulmonary: Effort: Pulmonary effort is normal. Breath sounds: Normal breath sounds. No decreased breath sounds, wheezing or rhonchi. Musculoskeletal: General: Normal range of motion. Cervical back: Normal range of motion. Skin: General: Skin is warm. Neurological: Mental Status: He is alert and oriented to person, place, and time. I did personally review Drake's past medical history, surgical history, social history, as well as family history (when relevant). In this case, I also oversaw the her drug management by reviewing her medication list, allergy list, as well as the medications that I prescribed during the UC courseand/or recommended as an out-patient (including possible OTC medications such as acetaminophen, NSAIDs , etc). After reviewing the items above, I did look at previous medical documentation, such as recent hospitalizations, office visits, and/or recent consultations with PCP/specialist. SDOH: Another factor that I considered in Drake's care was her Social Determinants of Health (SDOH). During this encounter, she did not have social determinants of health. Those SDOH influencingDrake's care are: none COURSE/MEDICAL DECISION MAKING: Drake is a 29 y.o., who presents with a working diagnosis of 1. Acute rhinosinusitis with a differential to include: Influenza, parainfluenza, rhinovirus, adenovirus, metapneumovirus, coronavirus, COVID-19, postnasal drip, strep pharyngitis, GERD, retropharyngeal abscess, tonsillitis, adenitis, seasonal allergies Current plan to tx with combo antitussive, recommend use of nasal spray & prendisone burst (sheis not T2DM and has meds available for PCOS), discussed goals of care and recommend use of Pseudoephedrine prior to her flight. Antonio Lopez PA-C Advanced Practice Provider [facility] Please note: While the patient may or may not have received printed discharge paperwork, all relevant medical findings, test results, and treatment details are accessible through the electronic medical record system. The patient is encouraged to review their chart via the patient portal for comprehensive information and follow-up instructions. documented in this [facility]Mag[facility] Work Phone: [phone] NotePsychiatry History and Physical Patient Name: Drake Petty MR #: [id number] : 1995 Admit Date: Primary Care Provider: Keyla Meneses, DEC[employer]ATOR [employer] Assessment Drake Petty is a 29 y.o. female who is here for psychiatric assessment of mood instability that has started to affect her interpersonal social and occupational functioning. Patient reported she started treatment to her PCP about 6 -7 months ago and has trialed Celexa, Lexapro, Prozac. Patient was started on Pristiq that made her feel more irritable or numb and has been started. She has continued to take BuSpar which patient states is not helpful. Diagnosis & Plan/Recommendations PRINCIPAL DIAGNOSIS: Unspecified episodic mood disorder Chief Complaint: Irritable mood History of Present Illness: Drake Petty is a , employed 29 y.o. female with a history of ADHD, anxiety, depression who was seen alone in office for assessment of her more frequent and increased irritability. Patient reports she is having at about 2 days of pervasive irritability when she has increasing psychomotor agitation, racing thoughts, distractibility, increased busyness and has pressure to keep talking. Patient also reports she has been wanting to sleep more, feels excessively tired and fatigued, reports low energy and low motivation, endorses decreased sex drive. Patient reports she has been sleeping well. Appetite is within normal limits. Patient does endorse feeling worthless and at times hopeless. Patient reports she feels worthless because she has felt the need to remove herself when her 2-year-old son starts to annoy her so that she does not yell at him. She reported that even her has tried to remove himself from her when he senses that she isgetting more irritable. Patient denies any current suicide attempt patient denies any ongoing homicidal ideation. Patient reports her anxiety is nonspecific and makes her more tense and restless and increased irritability. At times patient has engaged in some irrational spending. Psychiatric review of systems: Depression: Patient does endorse depressive symptoms including excessive fatigue and tiredness, increased need for sleep, low energy and low motivation, decreased sex drive, feelings of helplessness and worthlessness and tearfulness. There do not last for 2 or more weeks Aliza hypomania: Patient does endorse 2 days of pervasive irritability with racing thoughts, distractibility, increased busyness, pressure to keep talking, psychomotor agitation. No evidence of thought disorder. Patient does not fit into any specific category of anxiety disorder. No history of trauma. Patient does not meet criteria for ADHD Given her poor response to antidepressants as well as worsening of moods with Pristiq we recommended trial of lamotrigine. Patient will think about it and give us a call. At this time she does not meet full criteria for bipolar disorder but the best course of action would be to treat her with a mood stabilizing medication. Past Psychiatric History Patient started psychiatric care when she was in her sophomore year of college. She was diagnosed with ADHD and started on Strattera. Patient reports it was not helpful Past diagnoses: ADHD, anxiety, depression Past medications: Strattera, Prozac, Celexa, Lexapro, Pristiq, BuSpar. Past hospitalizations: None Past suicide attempts: None Past self injurious behavior: None Outpatient linkage: PCP The patient otherwise denies any previous psychiatric problems or diagnoses, inpatient or outpatient mental health care, suicide attempts, use of psychotropic medications, or any self injurious behavior. Family Psychiatric History Mother: Anxiety and depression Maternal uncle: Bipolar disorder Brother: ADHD The patient otherwise denies any family history of mental illness or treatment, psychiatric hospitalizations, suicide attempts, or substance problems. Social History Patient was born in [place] to biological parents. Family moved to [place] when she was 2 years old. She has an older brother, 33 who is in the armed forces. Patient reports good relationship with the family. Patient reports growing up was good. 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 Patient reports that they dated since 2012 before getting in 2020 Children: Son, 2 years old Legal History: Denies Trauma History: Denies History: Denies Rastafari: Denies Access to firearms: They own firearms Substance use History Nicotine: Never Alcohol: Never Illicit substances: Never Rehab: Denies (more content not included)...[facility]09-06-2024 History of Present illness Narrative* Sussy Degroot MA - 05/19/2024 12:43 PM EDT Images from the original note were not included. This P pasta press operator attempted to contact patient regarding referral to [facility] program placed by PCP at request of [facility]. The patient did not answer. Voice mail message was left with request for return call.THIRD and final attempt. [phone] Behavioral Health Screenings: 09/01/2023 8:00 AM 03/06/2024 1:37 PM GABRIELA-7 GABRIELA-7 Score 3 10 09/25/2019 5:00 PM PHQ-9 PHQ-9 Total Score 6 documented in this [id number] Evaluation + Plan note* Assessment & Plan Note - Keyla Meneses CNP - 05/18/2024 9:13 AM EDT Associated Problem(s): Anxiety and depression Acute on chronic. Sub-optimal control Stop pristiq given worsening symptoms. Increase buspar dose Refer to psychiatry Encouraged to schedule with counseling Discussed hospital precautions [id number] Miscellaneous Notes* Assessment & Plan Note - Keyla Meneses CNP - 05/18/2024 9:13 AM EDTAssociated Problem(s): Anxiety and depression Acute on chronic. Sub-optimal control Stop pristiq given worsening symptoms. Increase buspar dose Refer to psychiatry Encouraged to schedule with counseling Discussed hospital precautions documented in this [id number] Instructions* Patient Instructions* Maria Antonia Ayala LPN - 05/18/2024 8:07 AM EDT Feedback Our goal is to provide you with exceptional patient care, and we strive to do this for every patient, every visit. Since we care about you and your experience, you may receive a patient satisfaction survey in the mail, via email or text message from [employer]. We truly welcome your feedback, positive and negative, and ask that you complete the survey to let us know how we are doing. Please skipover any question(s) that may not apply to your visit. Appointment Policy We care about your health and we want to assist you if there is something preventing you from making it to your appointment. We know unexpected events occur that may prevent you from making your appointment and we understand. If you are not able to make it to your appointment, we would greatly appreciate if you could let us know at least 8 business hours prior to your appointment time. Any patients arriving more than 15 minutes after their scheduled appointment will be considered a late arrivaland may be asked to reschedule their appointment. Any patient who fails to arrive for a scheduled appointment without canceling will be considered a no show. Any continued late cancellations or missed appointments may result in a need to ask you to find another provider. Referrals If you have been referred to another physician, we will send them your referral and any necessary clinical information. They will call you to schedule your appointment. If you have not heard from theoffice we are referring you to within 7-10 business days, please give our office a call at or send the provider a Findery[employer] message and we will be happy to assist. Advanced Imaging (MRI, CT, etc.) If your provider ordered advanced imaging during your visit today, you will be contacted by [facility] Central Scheduling. If you would prefer to call Central Scheduling directly, please call . Test & Lab Results Even though you may receive your test results in your MyChart, please allow up to 5 business days to be contacted by our office regarding your results. Be assured, if any test results are critical, our office will contact you as soon as possible to review the results with you. If your labs are normal or abnormal and the provider is not concerned about them, you will receive a Finder[employer] message with these results. If your labs are abnormal or critical, you will receive a phone call with your results. If you have not heard anything about your lab results after 5 business days, please give our office a call at or send the provider a MyChart message and we will be happy to look into this. Medication Refills Our office does not accept refill requests from pharmacies. Please check with you provider at your appointment, and request any refills needed. If any refill is needed outside of a scheduled appointment, please call your pharmacy to verify if you have any refills remaining. If a new prescription isneeded, please give our office a call at or send the provider a Finderyhart message and allow up to 2 business days for us to complete this. If your insurance requires your medication(s) to be prior authorized, we will work with your insurance company to get these medication(s) prior authorized for you. Please allow up to 7-10 business days for this to be completed. [email or web address] is a wonderful way to communicate with your provider and often allows for quicker response times compared to calling our office. Please consider sending your provider a [employer] message with your non-urgent questions, medication refill requests, or even to schedule an appointment. Please do not use [employer] to send any messages requiring urgent or emergent attention. By selecting to send a message, you acknowledge you are seeking medical advice for non-urgent issues and that you are awarethat you may not get a response for 2 business days. Responses are not monitored evenings and weekends. For issues requiring urgent or emergent attention, please call our office at to speak to the provider on-call or call [phone]. Important Numbers Billing Questions or MyChart Support or Medical Financial Assistance Central Scheduling or Thank you for choosing [facility] for your healthcare needs documented in this [id number] NoteSubjective Patient ID: Drake Petty is a 29 y.o. female here for anxiety/depression follow-up. HPI Anxiety/Depression: Chronic. Sub-optimal control. Presents after weaning off prozac, starting pristiq and adding buspar. Patient reports she started the buspar first and noted an improvement with the anger. However, after starting pristiq patient reports to feel disassociated. Patient explains this further by saying she feels like she is not in the moment. Referral placed [facility]. Per chart review, patient has yet to schedule. Triggers - lack or loss of control BC - none, No current conception plans. LMP 04/27. Regular menses. Caffeine - None Alleviating factors - talking with , alone time to decompress, dietary changes, exercising Previous Medications - Lexapro, Celexa, Strattera, Prozac Gene Sight completed, in media records for review. Patient denies thoughts of self harm or harm to others. Reviewed by Provider: Tobacco Allergies Meds Problems Med Hx Surg Hx Fam Hx Review of Systems Constitutional: Negative for fever. Respiratory: Negative for cough and shortness of breath. Cardiovascular: Negative for chest pain. Gastrointestinal: Negative for abdominal pain. Psychiatric/Behavioral: Negative for self-injury. The patient is nervous/anxious. Positive for anger/irritability Objective BP 116/81 (BP Location: Left arm) Pulse 81 Temp 98.5 degrees F (36.9 degrees C) Wt 78.7 kg (173 lb 9.6 oz) SpO2 98% BMI 28.89 kg/m Physical Exam Constitutional: General: She is not in acute distress. HENT: Head: Normocephalic and atraumatic. Eyes: General: No scleral icterus. Cardiovascular: Rate and Rhythm: Normal rate and regular rhythm. Pulses: Normal pulses. Heart sounds: Normal heart sounds. No murmur heard. Pulmonary: Effort: Pulmonary effort is normal. Breath sounds: Normal breath sounds. No wheezing. Abdominal: General: There is no distension. Musculoskeletal: General: No swelling. Skin: General: Skin is warm and dry. Neurological: General: No focal deficit present. Mental Status: She is alert. Psychiatric: Mood and Affect: Mood is anxious. Affect is tearful. Speech: Speech normal. Behavior: Behavior is cooperative. Thought Content: Thought content does not include suicidal ideation. Assessment & Plan Problem List Items Addressed This Visit Anxiety and depression - Primary Acute on chronic. Sub-optimal control Stop pristiq given worsening symptoms. Increase buspar dose Refer to psychiatry Encouraged to schedule with counseling Discussed hospital precautions Relevant Medications busPIRone (BUSPAR) 7.5 MG tablet Other Relevant Orders Ambulatory referral to Behavioral Health For any new medication prescribed today, patient was educated about indications for the medication, how to take the medication and potential side effects of the medication. Referral was put in today, please allow 1-2 weeks until the specialist office contacts you. AUTHENTICATED BY KEYLA MENESES, ON 05/18/2024 09:13:31[facility] [id number] History of Present illness Narrative* Keyla Meneses, [employer] - 05/18/2024 8:05 AM EDT Subjective Patient ID: Drake Petty is a 29 y.o. female here for anxiety/depression follow-up. HPI Anxiety/Depression: Chronic. Sub-optimal control. Presents after weaning off prozac, starting pristiq and adding buspar. Patient reports she started the buspar first and noted an improvement with the anger. However, after starting pristiq patient reports to feel disassociated. Patient explains this further by saying she feels like she is not in the moment. Referral placed [facility]. Per chart review, patient has yet to schedule. Triggers - lack or loss of control BC - none, No current conception plans. LMP 04/27. Regular menses. Caffeine - None Alleviating factors - talking with , alone time to decompress, dietary changes, exercising Previous Medications - Lexapro, Celexa, Strattera, Prozac Gene Sight completed, in media records for review. Patient denies thoughts of self harm or harm to others. Reviewed by Provider: Tobacco Allergies Meds Problems Med Hx Surg Hx Fam Hx Review of Systems Constitutional: Negative for fever. Respiratory: Negative for cough and shortness of breath. Cardiovascular: Negative for chest pain. Gastrointestinal: Negative for abdominal pain. Psychiatric/Behavioral: Negative for self-injury. The patient is nervous/anxious. Positive for anger/irritability Objective BP 116/81 (BP Location: Left arm) Pulse 81 Temp 98.5 F (36.9 C) Wt 78.7 kg (173 lb 9.6 oz) SpO2 98% BMI 28.89 kg/m Physical Exam Constitutional: General: She is not in acute distress. HENT: Head: Normocephalic and atraumatic. Eyes: General: No scleral icterus. Cardiovascular: Rate and Rhythm: Normal rate and regular rhythm. Pulses: Normal pulses. Heart sounds: Normal heart sounds. No murmur heard. Pulmonary: Effort: Pulmonary effort is normal. Breath sounds: Normal breath sounds. No wheezing. Abdominal: General: There is no distension. Musculoskeletal: General: No swelling. Skin: General: Skin is warm and dry. Neurological: General: No focal deficit present. Mental Status: She is alert. Psychiatric: Mood and Affect: Mood is anxious. Affect is tearful. Speech: Speech normal. Behavior: Behavior is cooperative. Thought Content: Thought content does not include suicidal ideation. Assessment & Plan Problem List Items Addressed This Visit Anxiety and depression - Primary Acute on chronic. Sub-optimal control Stop pristiq given worsening symptoms. Increase buspar dose Refer to psychiatry Encouraged to schedule with counseling Discussed hospital precautions Relevant Medications busPIRone (BUSPAR) 7.5 MG tablet Other Relevant Orders Ambulatory referral to Behavioral Health For any new medication prescribed today, patient was educated about indications for the medication,how to take the medication and potential side effects of the medication. Referral was put in today, please allow 1-2 weeks until the specialist office contacts you. documented in this [id number] History of Present illness Narrative* Sussy Degroot MA - 05/05/2024 4:28 PM EDT Images from the original note were not included. This [employer] pasta press operator attempted to contact patient regarding referral to [facility] program placed by PCP at request of [employer]. The patient did not answer. Voice mail message was left with request for return call.SECOND attempt. [phone] Behavioral Health Screenings: 09/01/2023 8:00 AM 03/06/2024 1:37 PM GABRIELA-7 GABRIELA-7 Score 3 10 09/25/2019 5:00 PM PHQ-9 PHQ-9 Total Score 6 documented in this [id number] History of Present illness Narrative* Sussy Degroot MA - 04/28/2024 1:46 PM EDT Images from the original note were not included. This [employer] pasta press operator attempted to contact patient regarding referral to [facility] program placed by PCP at request of [facility]. The patient did not answer. Voice mail message was left with request for return call.First attempt. [phone] Behavioral Health Screenings: 09/01/2023 8:00 AM 03/06/2024 1:37 PM GABRIELA-7 GABRIELA-7 Score 3 10 09/25/2019 5:00 PM PHQ-9 PHQ-9 Total Score 6 documented in this [id number] Evaluation + Plan note* Assessment & Plan Note - Keyla Meneses CNP - 04/27/2024 9:08 AM EDT Associated Problem(s): Anxiety and depression Chronic. Sub-optimal control Gene sight results reviewed Decrease prozac. Take 10 mg once daily x1 week. Then take 10 mg every other day on week 2. Start Pristiq 25 mfg daily, on week 2. Add buspar. Red flag symptoms discussed Referral placed to counseling [id number] Miscellaneous Notes* Assessment & Plan Note - Keyla Meneses CNP - 04/27/2024 9:08 AM EDTAssociated Problem(s): Anxiety and depression Chronic. Sub-optimal control Gene sight results reviewed Decrease prozac. Take 10 mg once daily x1 week. Then take 10 mg every other day on week 2. Start Pristiq 25 mfg daily, on week 2. Add buspar. Red flag symptoms discussed Referral placed to counseling documented in this [id number] NoteSubjective Patient ID: Drake Petty is a 29 y.o. female here for anxiety/depression follow-up. HPI Anxiety/Depression: Chronic. Sub-optimal control. Presents after increasing Prozac to 20 mg. Reports symptoms are unchanged. Reports medication compliance, but does notice decreased libido. Symptoms include chronic fatigue, easily distracted, lack of motivation, anger and irritability, getting worked up easily. Triggers - lack or loss of control Previous medications - lexapro and celexa and strattera. BC - none, No current conception plans. LMP 04/27. Regular menses. Caffeine - None Counseling - not established, but interested in starting Alleviating factors - talking with , alone time to decompress, dietary changes, exercising Reviewed by Provider: Tobacco Allergies Meds Problems Med Hx Surg Hx Fam Hx Review of Systems Constitutional: Positive for fatigue. Negative for activity change, appetite change, chills and fever. Respiratory: Negative for shortness of breath. Cardiovascular: Negative for chest pain. Gastrointestinal: Negative for abdominal pain. Neurological: Negative for dizziness and headaches. Psychiatric/Behavioral: Positive for agitation and decreased concentration. Negative for sleep disturbance. The patient is nervous/anxious. Objective BP 119/79 (BP Location: Left arm) Pulse 92 Temp 98.4 degrees F (36.9 degrees C) Wt 77.5 kg (170 lb 14.4 oz) SpO2 98% BMI 28.44 kg/m Physical Exam Constitutional: General: She is not in acute distress. HENT: Head: Normocephalic and atraumatic. Eyes: General: No scleral icterus. Cardiovascular: Rate and Rhythm: Normal rate and regular rhythm. Pulses: Normal pulses. Heart sounds: Normal heart sounds. No murmur heard. Pulmonary: Effort: Pulmonary effort is normal. Breath sounds: Normal breath sounds. No wheezing. Abdominal: General: There is no distension. Musculoskeletal: General: No swelling. Skin: General: Skin is warm and dry. Neurological: General: No focal deficit present. Mental Status: She is alert. Mental status is at baseline. Psychiatric: Mood and Affect: Mood normal. Behavior: Behavior normal. Thought Content: Thought content normal. Assessment & Plan Problem List Items Addressed This Visit Anxiety and depression - Primary Chronic. Sub-optimal control Gene sight results reviewed Decrease prozac. Take 10 mg once daily x1 week. Then take 10 mg every other day on week 2. Start Pristiq 25 mfg daily, on week 2. Add buspar. Red flag symptoms discussed Referral placed to counseling Relevant Medications FLUoxetine (PROZAC) 10 MG capsule busPIRone (BUSPAR) 5 MG tablet desvenlafaxine succinate 25 mg Tb24 Other Relevant Orders Ambulatory Ref to [facility] For any new medication prescribed today, patient was educated about indications for the medication, how to take the medication and potential side effects of the medication. Referral was put in today, please allow 1-2 weeks until the specialist office contacts you. Return in about 2 years (around 04/27/2026) for Recheck - anxiety/depression . AUTHENTICATED BY KEYLA MENESES, ON 04/27/2024 09:09:25[facility]08-15-2024 History of Present illness Narrative* Feliz Menesesl Keomiguel, [employer] - 04/27/2024 7:57 AM EDT Subjective Patient ID: Drake Petty is a 29 y.o. female here for anxiety/depression follow-up. HPI Anxiety/Depression: Chronic. Sub-optimal control. Presents after increasing Prozac to 20 mg. Reports symptoms are unchanged. Reports medication compliance, but does notice decreased libido. Symptoms include chronic fatigue, easily distracted, lack of motivation, anger and irritability, getting worked up easily. Triggers - lack or loss of control Previous medications - lexapro and celexa and strattera. BC - none, No current conception plans. LMP 04/27. Regular menses. Caffeine - None Counseling - not established, but interested in starting Alleviating factors - talking with , alone time to decompress, dietary changes, exercising Reviewed by Provider: Tobacco Allergies Meds Problems Med Hx Surg Hx Fam Hx Review of Systems Constitutional: Positive for fatigue. Negative for activity change, appetite change, chills and fever. Respiratory: Negative for shortness of breath. Cardiovascular: Negative for chest pain. Gastrointestinal: Negative for abdominal pain. Neurological: Negative for dizziness and headaches. Psychiatric/Behavioral: Positive for agitation and decreased concentration. Negative for sleep disturbance. The patient is nervous/anxious. Objective BP 119/79 (BP Location: Left arm) Pulse 92 Temp 98.4 F (36.9 C) Wt 77.5 kg (170 lb 14.4 oz) SpO2 98% BMI 28.44 kg/m Physical Exam Constitutional: General: She is not in acute distress. HENT: Head: Normocephalic and atraumatic. Eyes: General: No scleral icterus. Cardiovascular: Rate and Rhythm: Normal rate and regular rhythm. Pulses: Normal pulses. Heart sounds: Normal heart sounds. No murmur heard. Pulmonary: Effort: Pulmonary effort is normal. Breath sounds: Normal breath sounds. No wheezing. Abdominal: General: There is no distension. Musculoskeletal: General: No swelling. Skin: General: Skin is warm and dry. Neurological: General: No focal deficit present. Mental Status: She is alert. Mental status is at baseline. Psychiatric: Mood and Affect: Mood normal. Behavior: Behavior normal. Thought Content: Thought content normal. Assessment & Plan Problem List Items Addressed This Visit Anxiety and depression - Primary Chronic. Sub-optimal control Gene sight results reviewed Decrease prozac. Take 10 mg once daily x1 week. Then take 10 mg every other day on week 2. Start Pristiq 25 mfg daily, on week 2. Add buspar. Red flag symptoms discussed Referral placed to counseling Relevant Medications FLUoxetine (PROZAC) 10 MG capsule busPIRone (BUSPAR) 5 MG tablet desvenlafaxine succinate 25 mg Tb24 Other Relevant Orders Ambulatory Ref to [facility] For any new medication prescribed today, patient was educated about indications for the medication,how to take the medication and potential side effects of the medication. Referral was put in today, please allow 1-2 weeks until the specialist office contacts you. Return in about 2 years (around 04/27/2026) for Recheck - anxiety/depression . documented in this [id number] Instructions* Patient Instructions* Maria Antonia Ayala LPN - 04/27/2024 7:53 AM EDT Feedback Our goal is to provide you with exceptional patient care, and we strive to do this for every patient, every visit. Since we care about you and your experience, you may receive a patient satisfaction survey in the mail, via email or text message from [employer]. We truly welcome your feedback, positive and negative, and ask that you complete the survey to let us know how we are doing. Please skipover any question(s) that may not apply to your visit. Appointment Policy We care about your health and we want to assist you if there is something preventing you from making it to your appointment. We know unexpected events occur that may prevent you from making your appointment and we understand. If you are not able to make it to your appointment, we would greatly appreciate if you could let us know at least 8 business hours prior to your appointment time. Any patients arriving more than 15 minutes after their scheduled appointment will be considered a late arrivaland may be asked to reschedule their appointment. Any patient who fails to arrive for a scheduled appointment without canceling will be considered a no show. Any continued late cancellations or missed appointments may result in a need to ask you to find another provider. Referrals If you have been referred to another physician, we will send them your referral and any necessary clinical information. They will call you to schedule your appointment. If you have not heard from theoffice we are referring you to within 7-10 business days, please give our office a call at or send the provider a [employer] message and we will be happy to assist. Advanced Imaging (MRI, CT, etc.) If your provider ordered advanced imaging during your visit today, you will be contacted by [facility] Central Scheduling. If you would prefer to call Central Scheduling directly, please call . Test & Lab Results Even though you may receive your test results in your MyChart, please allow up to 5 business days to be contacted by our office regarding your results. Be assured, if any test results are critical, our office will contact you as soon as possible to review the results with you. If your labs are normal or abnormal and the provider is not concerned about them, you will receive a [employer] message with these results. If your labs are abnormal or critical, you will receive a phone call with your results. If you have not heard anything about your lab results after 5 business days, please give our office a call at or send the provider a [employer] message and we will be happy to look into this. Medication Refills Our office does not accept refill requests from pharmacies. Please check with you provider at your appointment, and request any refills needed. If any refill is needed outside of a scheduled appointment, please call your pharmacy to verify if you have any refills remaining. If a new prescription isneeded, please give our office a call at or send the provider a [employer] message and allow up to 2 business days for us to complete this. If your insurance requires your medication(s) to be prior authorized, we will work with your insurance company to get these medication(s) prior authorized for you. Please allow up to 7-10 business days for this to be completed. [email or web address] is a wonderful way to communicate with your provider and often allows for quicker response times compared to calling our office. Please consider sending your provider a [employer] message with your non-urgent questions, medication refill requests, or even to schedule an appointment. Please do not use [employer] to send any messages requiring urgent or emergent attention. By selecting to send a message, you acknowledge you are seeking medical advice for non-urgent issues and that you are awarethat you may not get a response for 2 business days. Responses are not monitored evenings and weekends. For issues requiring urgent or emergent attention, please call our office at to speak to the provider on-call or call 911. Important Numbers Billing Questions or MyChart Support or Medical Financial Assistance Central Scheduling or Thank you for choosing [facility] for your healthcare needs documented in this [id number] Evaluation + Plan note* Assessment & Plan Note - Keyla Meneses CNP - 04/06/2024 10:25 AM EDT Associated Problem(s): Anxiety Chronic. Poorly controlled. Increase prozac to 20 mg. Obtain Gene Sight Encouraged exploring counseling Continue to optimize healthy habits - sleep/diet/exercise Continue stress relieving techniques [id number] Miscellaneous Notes* Assessment & Plan Note - Keyla Meneses CNP - 04/06/2024 10:25 AM EDTAssociated Problem(s): Anxiety Chronic. Poorly controlled. Increase prozac to 20 mg. Obtain Gene Sight Encouraged exploring counseling Continue to optimize healthy habits - sleep/diet/exercise Continue stress relieving techniques documented in this [id number] NoteSubjective Patient ID: Drake Petty is a 29 y.o. female here for anxiety follow-up. HPI Anxiety: Patient presents as one month follow-up after starting Prozac. Reports symptoms are unchanged. Reports medication compliance and is tolerating well. Symptoms include chronic fatigue, easily distracted, lack of motivation, anger and irritability, getting worked up easily. Triggers - lack or loss of control Previous medications - lexapro and celexa and strattera. Caffeine - stopped caffeine intake over the past month. Counseling - not established. Alleviating factors - talking with , alone time to decompress, dietary changes, exercising Reviewed by Provider: Tobacco Allergies Meds Problems Med Hx Surg Hx Fam Hx Review of Systems Constitutional: Positive for fatigue. Negative for appetite change and unexpected weight change. Respiratory: Negative for shortness of breath. Cardiovascular: Negative for chest pain. Gastrointestinal: Negative for abdominal pain, constipation, diarrhea, nausea and vomiting. Skin: Negative for rash. Neurological: Negative for dizziness and headaches. Psychiatric/Behavioral: Positive for agitation and decreased concentration. Negative for sleep disturbance. The patient is nervous/anxious. Objective BP 127/84 (BP Location: Left arm) Pulse 97 Temp 98.9 degrees F (37.2 degrees C) Wt 77.5 kg (170 lb 12.8 oz) SpO2 98% BMI 28.42 kg/m Physical Exam Constitutional: General: She is not in acute distress. HENT: Head: Normocephalic and atraumatic. Eyes: General: No scleral icterus. Cardiovascular: Rate and Rhythm: Normal rate and regular rhythm. Pulses: Normal pulses. Heart sounds: Normal heart sounds. No murmur heard. Pulmonary: Effort: Pulmonary effort is normal. Breath sounds: Normal breath sounds. No wheezing. Abdominal: General: There is no distension. Musculoskeletal: General: No swelling. Skin: General: Skin is warm and dry. Neurological: General: No focal deficit present. Mental Status: She is alert. Psychiatric: Mood and Affect: Mood normal. Behavior: Behavior normal. Thought Content: Thought content normal. Assessment & Plan Problem List Items Addressed This Visit Anxiety - Primary Chronic. Poorly controlled. Increase prozac to 20 mg. Obtain Gene Sight Encouraged exploring counseling Continue to optimize healthy habits - sleep/diet/exercise Continue stress relieving techniques Relevant Medications FLUoxetine (PROZAC) 20 MG capsule Other Visit Diagnoses Chronic fatigue Relevant Orders Iron Study with Ferritin B12/Folate CBC and Differential For any new medication prescribed today, patient was educated about indications for the medication, how to take the medication and potential side effects of the medication. Return in about 3 weeks (around 04/27/2024) for follow-up anxiety . AUTHENTICATED BY KEYLA MENESES, ON 04/06/2024 10:32:47[facility] [id number] History of Present illness Narrative* Keyla Meneses, [employer] - 04/06/2024 8:26 AM EDT Subjective Patient ID: Drake Petty is a 29 y.o. female here for anxiety follow-up. HPI Anxiety: Patient presents as one month follow-up after starting Prozac. Reports symptoms are unchanged. Reports medication compliance and is tolerating well. Symptoms include chronic fatigue, easily distracted, lack of motivation, anger and irritability, getting worked up easily. Triggers - lack or loss of control Previous medications - lexapro and celexa and strattera. Caffeine - stopped caffeine intake over the past month. Counseling - not established. Alleviating factors - talking with , alone time to decompress, dietary changes, exercising Reviewed by Provider: Tobacco Allergies Meds Problems Med Hx Surg Hx Fam Hx Review of Systems Constitutional: Positive for fatigue. Negative for appetite change and unexpected weight change. Respiratory: Negative for shortness of breath. Cardiovascular: Negative for chest pain. Gastrointestinal: Negative for abdominal pain, constipation, diarrhea, nausea and vomiting. Skin: Negative for rash. Neurological: Negative for dizziness and headaches. Psychiatric/Behavioral: Positive for agitation and decreased concentration. Negative for sleep disturbance. The patient is nervous/anxious. Objective BP 127/84 (BP Location: Left arm) Pulse 97 Temp 98.9 F (37.2 C) Wt 77.5 kg (170 lb 12.8 oz) SpO2 98% BMI 28.42 kg/m Physical Exam Constitutional: General: She is not in acute distress. HENT: Head: Normocephalic and atraumatic. Eyes: General: No scleral icterus. Cardiovascular: Rate and Rhythm: Normal rate and regular rhythm. Pulses: Normal pulses. Heart sounds: Normal heart sounds. No murmur heard. Pulmonary: Effort: Pulmonary effort is normal. Breath sounds: Normal breath sounds. No wheezing. Abdominal: General: There is no distension. Musculoskeletal: General: No swelling. Skin: General: Skin is warm and dry. Neurological: General: No focal deficit present. Mental Status: She is alert. Psychiatric: Mood and Affect: Mood normal. Behavior: Behavior normal. Thought Content: Thought content normal. Assessment & Plan Problem List Items Addressed This Visit Anxiety - Primary Chronic. Poorly controlled. Increase prozac to 20 mg. Obtain Gene Sight Encouraged exploring counseling Continue to optimize healthy habits - sleep/diet/exercise Continue stress relieving techniques Relevant Medications FLUoxetine (PROZAC) 20 MG capsule Other Visit Diagnoses Chronic fatigue Relevant Orders Iron Study with Ferritin B12/Folate CBC and Differential For any new medication prescribed today, patient was educated about indications for the medication,how to take the medication and potential side effects of the medication. Return in about 3 weeks (around 04/27/2024) for follow-up anxiety . documented in this [id number] Evaluation + Plan note* Assessment & Plan Note - Keyla Meneses CNP - 03/06/2024 2:16 PM EDT Associated Problem(s): Anxiety Chronic. Poorly controlled Most recent labs reviewed Start prozac. Discussed counseling options, if interested Optimize healthy habits - sleep/diet/exercise Continue cognitive behavioral stress relief techniques [id number] Miscellaneous Notes* Assessment & Plan Note - Keyla Meneses CNP - 03/06/2024 2:16 PM EDTAssociated Problem(s): Anxiety Chronic. Poorly controlled Most recent labs reviewed Start prozac. Discussed counseling options, if interested Optimize healthy habits - sleep/diet/exercise Continue cognitive behavioral stress relief techniques documented in this [id number] NoteSubjective Patient ID: Drake Petty is a 29 y.o. female here to establish care. Previously followed with Shivam Henry CNP. Specialist: Endocrinology: Dr. Rahul HERRMANN Anxiety: Chronic. Symptoms include easily angered/easily reactive, over-stimulated. Exacerbating factors - lack or loss of control. Alleviating factors - talking with , alone time to decompress, dietary changes, exercising Sleep: 7-8 hours per night Caffeine: 1 cup of coffee or energy drink a few times a week. Menses: Regular. LMP 02/23. Duration 2-3 days. Counseling: Not currently Previous medications - lexapro and celexa. Reports to have stopped both due to side effects and poor response. Also on Strattera during college for ADHD. Reviewed by Provider: Tobacco Allergies Meds Problems Med Hx Surg Hx Fam Hx Soc Hx Review of Systems Constitutional: Negative for activity change, appetite change and fatigue. Respiratory: Negative for shortness of breath. Cardiovascular: Negative for chest pain. Gastrointestinal: Negative for abdominal pain. Neurological: Negative for dizziness and headaches. Psychiatric/Behavioral: Positive for agitation. Negative for decreased concentration and sleep disturbance. The patient is nervous/anxious. Objective BP 138/87 Pulse 96 Temp 98.4 degrees F (36.9 degrees C) (Temporal) Ht 5' 5 Wt 77.7 kg (171 lb 4.8 oz) SpO2 97% BMI 28.51 kg/m Physical Exam Constitutional: General: She is not in acute distress. HENT: Head: Normocephalic and atraumatic. Eyes: General: No scleral icterus. Neck: Thyroid: No thyroid tenderness. Cardiovascular: Rate and Rhythm: Normal rate and regular rhythm. Pulses: Normal pulses. Heart sounds: Normal heart sounds. No murmur heard. Pulmonary: Effort: Pulmonary effort is normal. Breath sounds: Normal breath sounds. No wheezing. Musculoskeletal: General: No swelling. Skin: General: Skin is warm and dry. Neurological: General: No focal deficit present. Mental Status: She is alert. Psychiatric: Mood and Affect: Mood normal. Behavior: Behavior normal. Assessment & Plan Problem List Items Addressed This Visit Anxiety - Primary Chronic. Poorly controlled Most recent labs reviewed Start prozac. Discussed counseling options, if interested Optimize healthy habits - sleep/diet/exercise Continue cognitive behavioral stress relief techniques Relevant Medications FLUoxetine (PROZAC) 10 MG capsule For any new medication prescribed today, patient was educated about indications for the medication, how to take the medication and potential side effects of the medication. Return in 4 weeks (on 04/03/2024) for recheck - anxiety . 09/25/2019 5:00 PM 07/21/2022 7:00 AM 07/21/2023 3:24 PM 03/06/2024 1:37 PM Depression Screening Little interest or pleasure in doing things 1 0 0 0 Feeling down, depressed, or hopeless 0 0 0 0 PHQ-2 Total Score 1 0 0 0 Trouble falling or staying asleep, or sleeping too much 2 Feeling tired or having little energy 2 Poor appetite or overeating 1 Feeling bad about yourself - or that you are a failure or have let yourself or your family down 0 Trouble concentrating on things, such as reading the newspaper or watching television 0 Moving or speaking so slowly that other people could have noticed. Or the opposite - being so fidgety or restless that you have been moving around a lot more than usual 0 Thoughts that you would be better off , or of hurting yourself in some way 0 PHQ-9 Total Score 6 If you checked off any problems, how difficult have these problems made it for you to do your work, take care of things at home, or get along with other people? Somewhat difficult AUTHENTICATED BY KEYLA MENESES, ON 03/06/2024 14:17:08[facility]06-24-2024 History of Present illness Narrative* Keyla Meneses CNP - 03/06/2024 1:48 PM EDT Subjective Patient ID: Drake Petty is a 29 y.o. female here to establish care. Previously followed with Shivam Henry CNP. Specialist: Endocrinology: Dr. Rahul HERRMANN Anxiety: Chronic. Symptoms include easily angered/easily reactive, over-stimulated. Exacerbating factors - lack or loss of control. Alleviating factors - talking with , alone time to decompress, dietary changes, exercising Sleep: 7-8 hours per night Caffeine: 1 cup of coffee or energy drink a few times a week. Menses: Regular. LMP 02/23. Duration 2-3 days. Counseling: Not currently Previous medications - lexapro and celexa. Reports to have stopped both due to side effects and poor response. Also on Strattera during college for ADHD. Reviewed by Provider: Tobacco Allergies Meds Problems Med Hx Surg Hx Fam Hx Soc Hx Review of Systems Constitutional: Negative for activity change, appetite change and fatigue. Respiratory: Negative for shortness of breath. Cardiovascular: Negative for chest pain. Gastrointestinal: Negative for abdominal pain. Neurological: Negative for dizziness and headaches. Psychiatric/Behavioral: Positive for agitation. Negative for decreased concentration and sleep disturbance. The patient is nervous/anxious. Objective BP 138/87 Pulse 96 Temp 98.4 F (36.9 C) (Temporal) Ht 5' 5 Wt 77.7 kg (171 lb 4.8 oz) SpO2 97% BMI 28.51 kg/m Physical Exam Constitutional: General: She is not in acute distress. HENT: Head: Normocephalic and atraumatic. Eyes: General: No scleral icterus. Neck: Thyroid: No thyroid tenderness. Cardiovascular: Rate and Rhythm: Normal rate and regular rhythm. Pulses: Normal pulses. Heart sounds: Normal heart sounds. No murmur heard. Pulmonary: Effort: Pulmonary effort is normal. Breath sounds: Normal breath sounds. No wheezing. Musculoskeletal: General: No swelling. Skin: General: Skin is warm and dry. Neurological: General: No focal deficit present. Mental Status: She is alert. Psychiatric: Mood and Affect: Mood normal. Behavior: Behavior normal. Assessment & Plan Problem List Items Addressed This Visit Anxiety - Primary Chronic. Poorly controlled Most recent labs reviewed Start prozac. Discussed counseling options, if interested Optimize healthy habits - sleep/diet/exercise Continue cognitive behavioral stress relief techniques Relevant Medications FLUoxetine (PROZAC) 10 MG capsule For any new medication prescribed today, patient was educated about indications for the medication,how to take the medication and potential side effects of the medication. Return in 4 weeks (on 04/03/2024) for recheck - anxiety . 09/25/2019 5:00 PM 07/21/2022 7:00 AM 07/21/2023 3:24 PM 03/06/2024 1:37 PM Depression Screening Little interest or pleasure in doing things 1 0 0 0 Feeling down, depressed, or hopeless 0 0 0 0 PHQ-2 Total Score 1 0 0 0 Trouble falling or staying asleep, or sleeping too much 2 Feeling tired or having little energy 2 Poor appetite or overeating 1 Feeling bad about yourself - or that you are a failure or have let yourself or your family down 0 Trouble concentrating on things, such as reading the newspaper or watching television 0 Moving or speaking so slowly that other people could have noticed. Or the opposite - being so fidgety or restless that you have been moving around a lot more than usual 0 Thoughts that you would be better off , or of hurting yourself in some way 0 PHQ-9 Total Score 6 If you checked off any problems, how difficult have these problems made it for you to do your work,take care of things at home, or get along with other people? Somewhat difficult documented in this [id number] History of Present illness Narrative* SPENCER Donohue - 12/17/2023 9:00 AM EDT URGENT CARE eNCOUnter CHIEF COMPLAINT Headache and Sinus Pain (Was sick with viral illness 1.5 wk ago. Has had head sinus pain x4days. OTC not helping) [facility] Drake Petty is a 28 y.o. female who presents today for headache and frontal sinus pressure and discomfort for about 2 weeks now. Worsening over the past 4 days. Denies shortness or breath or chest pain. No fever chills. REVIEW OF SYSTEMS Review of Systems As documented in HPI. A thorough 12 point review of systems was evaluated including Constitutional and general appearance, Head, Face, Ears, Eyes, Nose, Throat, Cardiovascular, Pulmonary, GI, , Skin, and Psychiatric andwas found to be negative without symptoms or signs consistent with acute pathology with the exception of that specifically documented in the HPI section of this documentation. PAST MEDICAL HISTORY Past Medical History: Diagnosis Date PCOS (polycystic ovarian syndrome) SURGICAL HISTORY Past Surgical History: Procedure Laterality Date ARTHROSCOPY KNEE W/ MENISCECTOMY left knee EXCISION GANGLION CYST WRIST right wrist CURRENT MEDICATIONS Current Outpatient Medications Medication Sig Dispense Refill metFORMIN-XR 500 MG Tab SR 24 HR Take 4 tablets by mouth daily. Multiple Vitamins-Minerals (WOMENS MULTIVITAMIN PO) Take by mouth. Vitamin D, Cholecalciferol, 25 MCG (1000 UT) tablet Take 1 tablet by mouth daily. Albuterol 108 (90 Base) MCG/ACT Aero Soln inhaler Inhale 1 puff every 6 hours as needed for Shortness of Breath, Cough, Respiratory Distress or Wheezing. (Patient not taking: Reported on 10/26/2023) 18 g 0 Alcohol Swabs (Alcohol Wipes) 70 % Pads To be used to check blood sugar (Patient not taking: Reported on 09/21/2022) 100 Each 3 Azithromycin 250 MG tablet Take 500 mg X1 then 250 mg PO Once Daily X 4 days 6 tablet 0 Blood Glucose Monitoring Suppl (ONE TOUCH ULTRA 2) w/Device Kit As directed. (Patient not taking: Reported on 09/21/2022) cyclobenzaprine 5 MG tablet Take 1 tablet by mouth 3 times daily as needed for Muscle spasms. (Patient not taking: Reported on 07/30/2022) 30 tablet 0 fluticasone 50 MCG/ACT Suspension nasal spray 2 sprays each nostril daily 11.1 mL 0 Lancets (Kaboo Cloud CameraTouch Delica Plus [id number]) Misc Use with glucometer to check BS every morning and then two hours after each meal. (Patient not taking: Reported on 09/21/2022) 120 Each 3 predniSONE 20 MG tablet Take 3 tabs daily x2 days then 2 tabs daily x2 days then 1 tab daily x2 days PO as directed (Patient not taking: Reported on 10/26/2023) 12 tablet 0 jnrvvtmasobmcox-ecvhlqnwnunjyxer-yjtrRWEfons (Capmist DM) 60-15-400 MG tablet Take 1 tablet by mouth every 6 hours as needed for Cold Symptoms. (Patient not taking: Reported on 10/26/2023) 30 tablet 0 No current facility-administered medications for this visit. ALLERGIES No Known Allergies FAMILY HISTORY Family History Problem Relation Age of Onset No known problems Mother Hypertension Father Diabetes Maternal Grandfather Diabetes Paternal Grandmother SOCIAL HISTORY Social History Socioeconomic History Marital status: Spouse name: Not on file Number of children: Not on file Years of education: Not on file Highest education level: Not on file Occupational History Not on file Tobacco Use Smoking status: Never Passive exposure: Never Smokeless tobacco: Never Vaping Use Vaping status: Never Used Substance and Sexual Activity Alcohol use: Yes Comment: consumes occassionally Drug use: Never Sexual activity: Yes Partners: Male control/protection: None Other Topics Concern Service Not Asked Blood Transfusions Not Asked Caffeine Concern Not Asked Occupational Exposure Not Asked Hobby Hazards Not Asked Sleep Concern Not Asked Stress Concern Not Asked Weight Concern Not Asked Special Diet Not Asked Back Care Not Asked Exercise Not Asked Bike Helmet Not Asked Seat Belt Not Asked Domestic Violence No Social History Narrative Not on file Social Determinants of Health Financial Resource Strain: Low Risk (07/21/2023) Received from [facility] Overall Financial Resource Strain (CARDIA) Difficulty of Paying Living Expenses: Not hard at all Food Insecurity: No Food Insecurity (07/21/2023) Received from [facility] Hunger Vital Sign Worried About Running Out of Food in the Last Year: Never true Ran Out of Food in the Last Year: Never true Transportation Needs: No Transportation Needs (07/21/2023) Received from [facility] PRAPARE - Transportation Lack of Transportation (Medical): No Lack of Transportation (Non-Medical): No Physical Activity: Inactive (06/17/2022) Received from [facility] Exercise Vital Sign Days of Exercise per Week: 0 days Minutes of Exercise per Session: 0 min Stress: Stress Concern Present (06/17/2022) Received from [facility] [employer] - Occupational Stress Questionnaire Feeling of Stress : To some extent Social Connections: Moderately Isolated (06/17/2022) Received from [facility] Social Connection and Isolation Panel [NHANES] Frequency of Communication with Friends and Family: More than three times a week Frequency of Social Gatherings with Friends and Family: Three times a week Attends Nondenominational Services: Never Active Member of Clubs or Organizations: No Attends Club or Organization Meetings: Never Marital Status: Intimate Partner Violence: Not At Risk (06/17/2022) Received from [facility] Humiliation, Afraid, Rape, and Kick questionnaire Fear of Current or Ex-Partner: No Emotionally Abused: No Physically Abused: No Sexually Abused: No Housing Stability: Low Risk (06/17/2022) Received from [facility] Housing Stability Vital Sign Unable to Pay for Housing in the Last Year: No Number of Places Lived in the Last Year: 1 Unstable Housing in the Last Year: No PHYSICAL EXAM BP 151/83 (BP Location: Right arm, BP Position: Sitting) Pulse 92 Temp 98.2 F (36.8 C) (Temporal) Resp 18 Ht 1.626 m (5' 4) Wt 78 kg (172 lb) SpO2 99% BMI 29.52 kg/m Smoking Status Never Physical Exam General exam: Patient is well-developed and well-nourished in no distress. Patient does not appear acutely ill or toxic. Eye exam: Lids and conjunctivae are normal ENT exam: head and facial exam is normal. The neck is supple without meningeal signs. No significant adenopathy. + frontal sinus tenderness. Pulmonary exam: No respiratory distress. Respiratory rate is normal. No stridor. Breath sounds are equal bilaterally. There are no wheezes, rales, or rhonchi noted. Cardiac exam: The cardiac rate and rhythm are normal. No significant murmurs, rubs, or gallops. Peripheral pulses are normal. Skin and soft tissue: Skin is warm and dry, without significant abnormality. Good color. Musculoskeletal exam: No evidence of DVT. There is no peripheral edema. Musculoskeletal exam of thelower extremities is normal without significant focal tenderness or spasm. Neurologic: Patient is alert and appropriate. Normal speech. Normal symmetric strength and tone in all extremities. Psychiatric: Normal adult with appropriate demeanor and interpersonal interaction. Is oriented to person, place, and time. Diagnosis, Assessment & Plan: Jewels was seen today for headache and sinus pain. Diagnoses and all orders for this visit: Acute non-recurrent frontal sinusitis Other orders - Azithromycin 250 MG tablet; Take 500 mg X1 then 250 mg PO Once Daily X 4 days - fluticasone 50 MCG/ACT Suspension nasal spray; 2 sprays each nostril daily 28 yo female presents with sinusitis. Will start her on azithromycin. -Follow up with PCP. Advised to return or go to ER immediately if any new or worsening symptoms. -Benefits, risks, contraindications, & complications of recommended treatments were explained. The patient understands & agrees to proceed with plan. SPENCER Donohue 12/17/2023 [facility] History of Present illness Narrative* SPENCER Donohue - 12/07/2023 4:10 PM EDT URGENT CARE eNCOUnter CHIEF COMPLAINT Sore Throat, Cough, Ear Pain, and Fatigue (Symptoms started yesterday) MONTEZ Petty is a 28 y.o. female who presents today for complaint of sore throat, cough, ear pain and fatigue that began yesterday morning. Was at a conference last week and many of her coworkers are sick as well. Some complaint is her sore throat. She has not taken any medication at home. REVIEW OF SYSTEMS Review of Systems As documented in HPI. A thorough 12 point review of systems was evaluated including Constitutional and general appearance, Head, Face, Ears, Eyes, Nose, Throat, Cardiovascular, Pulmonary, GI, , Skin, and Psychiatric andwas found to be negative without symptoms or signs consistent with acute pathology with the exception of that specifically documented in the HPI section of this documentation. PAST MEDICAL HISTORY Past Medical History: Diagnosis Date PCOS (polycystic ovarian syndrome) SURGICAL HISTORY Past Surgical History: Procedure Laterality Date ARTHROSCOPY KNEE W/ MENISCECTOMY left knee EXCISION GANGLION CYST WRIST right wrist CURRENT MEDICATIONS Current Outpatient Medications Medication Sig Dispense Refill Albuterol 108 (90 Base) MCG/ACT Aero Soln inhaler Inhale 1 puff every 6 hours as needed for Shortness of Breath, Cough, Respiratory Distress or Wheezing. (Patient not taking: Reported on 10/26/2023) 18 g 0 Alcohol Swabs (Alcohol Wipes) 70 % Pads To be used to check blood sugar (Patient not taking: Reported on 09/21/2022) 100 Each 3 Blood Glucose Monitoring Suppl (ONE TOUCH ULTRA 2) w/Device Kit As directed. (Patient not taking: Reported on 09/21/2022) cyclobenzaprine 5 MG tablet Take 1 tablet by mouth 3 times daily as needed for Muscle spasms. (Patient not taking: Reported on 07/30/2022) 30 tablet 0 Lancets (Kaboo Cloud CameraTouch Delica Plus [id number]) [facility] [place] with glucometer to check BS every morning and then two hours after each meal. (Patient not taking: Reported on 09/21/2022) 120 Each 3 metFORMIN-XR 500 MG Tab SR 24 HR Take 4 tablets by mouth daily. Multiple Vitamins-Minerals (WOMENS MULTIVITAMIN PO) Take by mouth. predniSONE 20 MG tablet Take 3 tabs daily x2 days then 2 tabs daily x2 days then 1 tab daily x2 days PO as directed (Patient not taking: Reported on 10/26/2023) 12 tablet 0 rfkjaafzxbifkkz-cmnmyfemhzaccqex-nlqcKIFzhlb (Capmist DM) 60-15-400 MG tablet Take 1 tablet by mouth every 6 hours as needed for Cold Symptoms. (Patient not taking: Reported on 10/26/2023) 30 tablet 0 Vitamin D, Cholecalciferol, 25 MCG (1000 UT) tablet Take 1 tablet by mouth daily. No current facility-administered medications for this visit. ALLERGIES No Known Allergies FAMILY HISTORY Family History Problem Relation Age of Onset No known problems Mother Hypertension Father Diabetes Maternal Grandfather Diabetes Paternal Grandmother SOCIAL HISTORY Social History Socioeconomic History Marital status: Spouse name: Not on file Number of children: Not on file Years of education: Not on file Highest education level: Not on file Occupational History Not on file Tobacco Use Smoking status: Never Passive exposure: Never Smokeless tobacco: Never Vaping Use Vaping status: Never Used Substance and Sexual Activity Alcohol use: Yes Comment: consumes occassionally Drug use: Never Sexual activity: Yes Partners: Male control/protection: None Other Topics Concern Service Not Asked Blood Transfusions Not Asked Caffeine Concern Not Asked Occupational Exposure Not Asked Hobby Hazards Not Asked Sleep Concern Not Asked Stress Concern Not Asked Weight Concern Not Asked Special Diet Not Asked Back Care Not Asked Exercise Not Asked Bike Helmet Not Asked Seat Belt Not Asked Domestic Violence No Social History Narrative Not on file Social Determinants of Health Financial Resource Strain: Low Risk (07/21/2023) Received from [facility] Overall Financial Resource Strain (CARDIA) Difficulty of Paying Living Expenses: Not hard at all Food Insecurity: No Food Insecurity (07/21/2023) Received from [facility] Hunger Vital Sign Worried About Running Out of Food in the Last Year: Never true Ran Out of Food in the Last Year: Never true Transportation Needs: No Transportation Needs (07/21/2023) Received from [facility] PRAPARE - Transportation Lack of Transportation (Medical): No Lack of Transportation (Non-Medical): No Physical Activity: Inactive (06/17/2022) Received from [facility] Exercise Vital Sign Days of Exercise per Week: 0 days Minutes of Exercise per Session: 0 min Stress: Stress Concern Present (06/17/2022) Received from [facility] [employer] - Occupational Stress Questionnaire Feeling of Stress : To some extent Social Connections: Moderately Isolated (06/17/2022) Received from [facility] Social Connection and Isolation Panel [NHANES] Frequency of Communication with Friends and Family: More than three times a week Frequency of Social Gatherings with Friends and Family: Three times a week Attends Nondenominational Services: Never Active Member of Clubs or Organizations: No Attends Club or Organization Meetings: Never Marital Status: Intimate Partner Violence: Not At Risk (06/17/2022) Received from [facility] Humiliation, Afraid, Rape, and Kick questionnaire Fear of Current or Ex-Partner: No Emotionally Abused: No Physically Abused: No Sexually Abused: No Housing Stability: Low Risk (06/17/2022) Received from [facility] Housing Stability Vital Sign Unable to Pay for Housing in the Last Year: No Number of Places Lived in the Last Year: 1 Unstable Housing in the Last Year: No PHYSICAL EXAM BP 126/81 (BP Location: Right arm, BP Position: Sitting) Pulse 106 Temp 98.3 F (36.8 C) (Oral) Resp 18 Ht 1.626 m (5' 4) Wt 78 kg (172 lb) SpO2 100% BMI 29.52 kg/m Smoking Status Never Physical Exam General exam: Patient is well-developed and well-nourished in no distress. Patient does not appear acutely ill or toxic. Eye exam: Lids and conjunctivae are normal ENT exam: head and facial exam is normal. The neck is supple without meningeal signs. No significant adenopathy. Posterior pharynx is mildly erythematous, uvula midline, normal appearing tonsils. Tmsclear Pulmonary exam: No respiratory distress. Respiratory rate is normal. No stridor. Breath sounds are equal bilaterally. There are no wheezes, rales, or rhonchi noted. Cardiac exam: The cardiac rate and rhythm are normal. No significant murmurs, rubs, or gallops. Peripheral pulses are normal.-+ Skin and soft tissue: Skin is warm and dry, without significant abnormality. Good color. Musculoskeletal exam: There is no peripheral edema. Musculoskeletal exam of the lower extremities is normal without significant focal tenderness or spasm. Neurologic: Patient is alert and appropriate. Normal speech. Normal symmetric strength and tone in all extremities. Psychiatric: Normal adult with appropriate demeanor and interpersonal interaction. Is oriented to person, place, and time. Diagnosis, Assessment & Plan: Jewels was seen today for sore throat, cough, ear pain and fatigue. Diagnoses and all orders for this visit: Sore throat - POCT INFLUENZA, A B - POCT RAPID STREP A - CULTURE THROAT; Future 28-year-old female presents today with sore throat. Rapid strep and influenza are negative. Throat culture is pending. Discussed with patient this is likely a viral illness we discussed supportive care. Follow up with primary care provider. Return if any new or worsening symptoms. SPENCER Donohue 12/07/2023 [facility] History of Present illness Narrative* Lemuel Lee MD - 10/26/2023 3:50 PM EST Subjective History of Present Illness Patient for annual exam. No concerns. Not actively trying to conceive, but not on control. Patient is on metformin. The following portions of the patients of the chart have reviewed and updated as required. Patient Active Problem List Diagnosis Insulin resistance Polycystic ovaries Vitamin D deficiency Abnormal maternal glucose tolerance, antepartum Diet controlled gestational diabetes mellitus (GDM) in third trimester Encounter for induction of labor Current Outpatient Medications Medication Sig Dispense Refill metFORMIN-XR 500 MG Tab SR 24 HR Take 4 tablets by mouth daily. Multiple Vitamins-Minerals (WOMENS MULTIVITAMIN PO) Take by mouth. Vitamin D, Cholecalciferol, 25 MCG (1000 UT) tablet Take 1 tablet by mouth daily. Albuterol 108 (90 Base) MCG/ACT Aero Soln inhaler Inhale 1 puff every 6 hours as needed for Shortness of Breath, Cough, Respiratory Distress or Wheezing. (Patient not taking: Reported on 10/26/2023) 18 g 0 Alcohol Swabs (Alcohol Wipes) 70 % Pads To be used to check blood sugar (Patient not taking: Reported on 09/21/2022) 100 Each 3 Blood Glucose Monitoring Suppl (ONE TOUCH ULTRA 2) w/Device Kit As directed. (Patient not taking: Reported on 09/21/2022) cyclobenzaprine 5 MG tablet Take 1 tablet by mouth 3 times daily as needed for Muscle spasms. (Patient not taking: Reported on 07/30/2022) 30 tablet 0 Lancets (Kaboo Cloud CameraTouch Delica Plus [id number]) Misc Use with glucometer to check BS every morning and then two hours after each meal. (Patient not taking: Reported on 09/21/2022) 120 Each 3 predniSONE 20 MG tablet Take 3 tabs daily x2 days then 2 tabs daily x2 days then 1 tab daily x2 days PO as directed (Patient not taking: Reported on 10/26/2023) 12 tablet 0 lednkmcpneiqmdf-zkbfhevkcrrzalya-mrtxBKGwqsv (Capmist DM) 60-15-400 MG tablet Take 1 tablet by mouth every 6 hours as needed for Cold Symptoms. (Patient not taking: Reported on 10/26/2023) 30 tablet 0 No current facility-administered medications for this visit. Past Medical History: Diagnosis Date PCOS (polycystic ovarian syndrome) No Known Allergies Past Surgical History: Procedure Laterality Date ARTHROSCOPY KNEE W/ MENISCECTOMY left knee EXCISION GANGLION CYST WRIST right wrist OB History 1 Para 1 Term 1 0 AB 0 Living 1 SAB 0 IAB 0 Ectopic 0 Molar 0 Multiple 0 Live Births 1 Social History Socioeconomic History Marital status: Spouse name: Not on file Number of children: Not on file Years of education: Not on file Highest education level: Not on file Occupational History Not on file Tobacco Use Smoking status: Never Passive exposure: Never Smokeless tobacco: Never Vaping Use Vaping status: Never Used Substance and Sexual Activity Alcohol use: Yes Comment: consumes occassionally Drug use: Never Sexual activity: Yes Partners: Male control/protection: None Other Topics Concern Service Not Asked Blood Transfusions Not Asked Caffeine Concern Not Asked Occupational Exposure Not Asked Hobby Hazards Not Asked Sleep Concern Not Asked Stress Concern Not Asked Weight Concern Not Asked Special Diet Not Asked Back Care Not Asked Exercise Not Asked Bike Helmet Not Asked Seat Belt Not Asked Domestic Violence Not Asked Social History Narrative Not on file Social Determinants of Health Financial Resource Strain: Low Risk (07/21/2023) Received from [facility] Overall Financial Resource Strain (CARDIA) Difficulty of Paying Living Expenses: Not hard at all Food Insecurity: No Food Insecurity (07/21/2023) Received from [facility] Hunger Vital Sign Worried About Running Out of Food in the Last Year: Never true Ran Out of Food in the Last Year: Never true Transportation Needs: No Transportation Needs (07/21/2023) Received from [facility] PRAPARE - Transportation Lack of Transportation (Medical): No Lack of Transportation (Non-Medical): No Physical Activity: Inactive (06/17/2022) Received from [facility] Exercise Vital Sign Days of Exercise per Week: 0 days Minutes of Exercise per Session: 0 min Stress: Stress Concern Present (06/17/2022) Received from [facility] [employer] [place] [employer] - Occupational Stress Questionnaire Feeling of Stress : To some extent Social Connections: Moderately Isolated (06/17/2022) Received from [facility] Social Connection and Isolation Panel [NHANES] Frequency of Communication with Friends and Family: More than three times a week Frequency of Social Gatherings with Friends and Family: Three times a week Attends Nondenominational Services: Never Active Member of Clubs or Organizations: No Attends Club or Organization Meetings: Never Marital Status: Intimate Partner Violence: Not At Risk (06/17/2022) Received from [facility] Humiliation, Afraid, Rape, and Kick questionnaire Fear of Current or Ex-Partner: No Emotionally Abused: No Physically Abused: No Sexually Abused: No Housing Stability: Low Risk (06/17/2022) Received from [facility] Housing Stability Vital Sign Unable to Pay for Housing in the Last Year: No Number of Places Lived in the Last Year: 1 Unstable Housing in the Last Year: No Family History Problem Relation Age of Onset No known problems Mother Hypertension Father Diabetes Maternal Grandfather Diabetes Paternal Grandmother Objective Review of Systems Constitutional: Negative. Negative for activity change, appetite change, diaphoresis, fatigue and fever. HENT: Negative. Negative for congestion, ear discharge, ear pain and hearing loss. Eyes: Negative. Negative for pain, redness and visual disturbance. Respiratory: Negative for apnea, choking, chest tightness, shortness of breath, wheezing and stridor. Cardiovascular: Negative for chest pain, palpitations and leg swelling. Gastrointestinal: Negative for abdominal distention, abdominal pain, blood in stool, constipation, diarrhea, nausea, rectal pain and vomiting. Endocrine: Negative for cold intolerance, heat intolerance and polyuria. Genitourinary: Negative for difficulty urinating, dysuria, enuresis, frequency, hematuria and urgency. Musculoskeletal: Negative for arthralgias, gait problem, myalgias, neck pain and neck stiffness. Skin: Negative for color change, pallor, rash and wound. Allergic/Immunologic: Negative for environmental allergies and immunocompromised state. Neurological: Negative for dizziness, tremors, seizures, syncope, facial asymmetry, weakness, numbness and headaches. Hematological: Negative for adenopathy. Does not bruise/bleed easily. Psychiatric/Behavioral: Negative for agitation, behavioral problems, confusion, dysphoric mood, hallucinations, self-injury, sleep disturbance and suicidal ideas. The patient is not nervous/anxious. Psych Review of Symptoms: Depressive Symptoms: No fatigue. Elimination Symptoms: No constipation. Psychotic Symptoms: No hallucinations. Vitals: Blood pressure 112/68, height 5' 4 (1.626 m), weight 178 lb (80.7 kg), last menstrual period 09/30/2023, not currently . Physical Exam Exam conducted with a hospital admissions clerk present. Constitutional: General: She is not in acute distress. Appearance: She is well-developed. She is not diaphoretic. HENT: Head: Normocephalic and atraumatic. Nose: Nose normal. Mouth/Throat: Pharynx: No oropharyngeal exudate. Eyes: General: Right eye: No discharge. Left eye: No discharge. Conjunctiva/sclera: Conjunctivae normal. Pupils: Pupils are equal, round, and reactive to light. Neck: Thyroid: No thyromegaly. Trachea: No tracheal deviation. Cardiovascular: Rate and Rhythm: Normal rate and regular rhythm. Heart sounds: Normal heart sounds. No murmur heard. No friction rub. No gallop. Pulmonary: Effort: Pulmonary effort is normal. No respiratory distress or retractions. Breath sounds: Normal breath sounds. No wheezing or rales. Chest: Chest wall: No mass, deformity or tenderness. Breasts: Breasts are symmetrical. Right: No inverted nipple, mass, nipple discharge, skin change or tenderness. Left: No inverted nipple, mass, nipple discharge, skin change or tenderness. Abdominal: General: Bowel sounds are normal. There is no distension. Palpations: Abdomen is soft. There is no mass. Tenderness: There is no abdominal tenderness. There is no guarding or rebound. Hernia: There is no hernia in the left inguinal area. Genitourinary: Exam position: Supine. Labia: Right: No rash, tenderness, lesion or injury. Left: No rash, tenderness, lesion or injury. Vagina: Normal. No signs of injury and foreign body. No vaginal discharge or erythema. Cervix: No cervical motion tenderness or discharge. Uterus: Not deviated, not enlarged and not tender. Adnexa: Right adnexa normal and left adnexa normal. Right: No mass, tenderness or fullness. Left: No mass, tenderness or fullness. Musculoskeletal: General: Normal range of motion. Cervical back: Normal range of motion and neck supple. Lymphadenopathy: Cervical: No cervical adenopathy. Skin: General: Skin is warm and dry. Neurological: General: No focal deficit present. Mental Status: She is alert and oriented to person, place, and time. Cranial Nerves: No cranial nerve deficit. Psychiatric: Mood and Affect: Mood normal. Thought Content: Thought content normal. Judgment: Judgment normal. Neurological Exam Mental Status Alert. Oriented to person, place, and time. Cranial Nerves CN III, IV, : Pupils equal round and reactive to light bilaterally. Assessment and Plan 1. Well woman exam with routine gynecological exam Normal exam, pap done - [facility] INST[facility]ER, LIQUID BASED; Future 2. Cervical cancer screening Pap done. - [facility] INST[facility], LIQUID BASED; Future Return in about 1 year (around 10/26/2024) for with [facility], Annual Exam. The documentation within this encounter was likely aided with Dragon, and electronic toeing stockings device. Please excuse any errors or omissions that may not have been recognized at the time of this encounter. [facility] History of Present illness Narrative* Jelena Walter, BIJAL-DECORATOR [employer] - 09/29/2023 4:15 PM EST MONTEZ Chávez [place] female 1995 presents to the [facility] with Chief Complaint Patient presents with Sore Throat Cough Nasal Congestion Had symptoms for [id number] Since with nasal congestion, sore throat, cough, chest congestion for the past 2 weeks. States she does not feel her symptoms ever completely went away but seemed to have improved, and they have beenworse for the past few days. States she does become short of breath with activity but she does not have any shortness a breath or chest pain at rest. Denies any unusual swelling. Denies smoking cigarettes. Denies any known sick contacts. States she did take Mucinex last week for 2 days but she doesnot think that it helped much. Denies any fever or chills. History No Known Allergies Current Outpatient Medications Medication Sig metFORMIN-XR 500 MG Tab SR 24 HR Take 1 tablet by mouth Twice daily. Vit-Fe Fumarate-FA ( VITAMIN PO) Take by mouth. Vitamin D, Cholecalciferol, 25 MCG (1000 UT) tablet Take 1 tablet by mouth daily. Albuterol 108 (90 Base) MCG/ACT Aero Soln inhaler Inhale 1 puff every 6 hours as needed for Shortness of Breath, Cough, Respiratory Distress or Wheezing. Alcohol Swabs (Alcohol Wipes) 70 % Pads To be used to check blood sugar (Patient not taking: Reported on 09/21/2022) Azithromycin 250 MG tablet Take by mouth 2 tablets (500 mg) on Day 1, then 1 tablet (250 mg) daily on Days 2-5 Blood Glucose Monitoring Suppl (ONE TOUCH ULTRA 2) w/Device Kit As directed. (Patient not taking: Reported on 09/21/2022) cyclobenzaprine 5 MG tablet Take 1 tablet by mouth 3 times daily as needed for Muscle spasms. (Patient not taking: Reported on 07/30/2022) Lancets (Kaboo Cloud CameraToAMEC Delica Plus [id number]) Misc Use with glucometer to check BS every morning and then two hours after each meal. (Patient not taking: Reported on 09/21/2022) predniSONE 20 MG tablet Take 3 tabs daily x2 days then 2 tabs daily x2 days then 1 tab daily x2 days PO as directed bujiqvkmaeujvbz-fohfslkvfzwgyawm-pdxvSTFemzu (Capmist DM) 60-15-400 MG tablet Take 1 tablet by mouth every 6 hours as needed for Cold Symptoms. Family History Problem Relation Age of Onset No known problems Mother Hypertension Father Diabetes Maternal Grandfather Diabetes Paternal Grandmother Past Medical History: Diagnosis Date PCOS (polycystic ovarian syndrome) Past Surgical History: Procedure Laterality Date ARTHROSCOPY KNEE W/ MENISCECTOMY left knee EXCISION GANGLION CYST WRIST right wrist Social History Socioeconomic History Marital status: Spouse name: Not on file Number of children: Not on file Years of education: Not on file Highest education level: Not on file Occupational History Not on file Tobacco Use Smoking status: Never Smokeless tobacco: Never Vaping Use Vaping Use: Never used Substance and Sexual Activity Alcohol use: Not Currently Drug use: Never Sexual activity: Not Currently Partners: Male control/protection: None Other Topics Concern Service Not Asked Blood Transfusions Not Asked Caffeine Concern Not Asked Occupational Exposure Not Asked Hobby Hazards Not Asked Sleep Concern Not Asked Stress Concern Not Asked Weight Concern Not Asked Special Diet Not Asked Back Care Not Asked Exercise Not Asked Bike Helmet Not Asked Seat Belt Not Asked Domestic Violence Not Asked Social History Narrative Not on file Social Determinants of Health Financial Resource Strain: Low Risk (11/24/2021) Overall Financial Resource Strain (CARDIA) Difficulty of Paying Living Expenses: Not hard at all Food Insecurity: No Food Insecurity (11/24/2021) Hunger Vital Sign Worried About Running Out of Food in the Last Year: Never true Ran Out of Food in the Last Year: Never true Transportation Needs: No Transportation Needs (11/24/2021) PRAPARE - Transportation Lack of Transportation (Medical): No Lack of Transportation (Non-Medical): No Physical Activity: Not on file Stress: No Stress Concern Present (11/24/2021) [employer] [place] [employer] - Occupational Stress Questionnaire Feeling of Stress : Not at all Social Connections: Unknown (11/24/2021) Social Connection and Isolation Panel [NHANES] Frequency of Communication with Friends and Family: Once a week Frequency of Social Gatherings with Friends and Family: Not on file Attends Nondenominational Services: Not on file Active Member of Clubs or Organizations: Not on file Attends Club or Organization Meetings: Not on file Marital Status: Intimate Partner Violence: Not At Risk (11/24/2021) Humiliation, Afraid, Rape, and Kick questionnaire Fear of Current or Ex-Partner: No Emotionally Abused: No Physically Abused: No Sexually Abused: No Housing Stability: Unknown (11/24/2021) Housing Stability Vital Sign Unable to Pay for Housing in the Last Year: No Number of Places Lived in the Last Year: Not on file Unstable Housing in the Last Year: No ROS Review of Systems 8 systems reviewed with patient, negative unless specifically mentioned in history of present illness PHYSICAL EXAM Visit Vitals BP 127/80 (BP Location: Right arm, BP Position: Sitting) Pulse 89 Temp 97.4 F (36.3 C) (Temporal) Resp 16 Ht 1.626 m (5' 4) Wt 78.5 kg (173 lb) SpO2 98% BMI 29.70 kg/m Physical Exam Vitals and nursing note reviewed. Constitutional: Appearance: Normal appearance. HENT: Head: Normocephalic. Right Ear: Tympanic membrane, ear canal and external ear normal. Left Ear: Tympanic membrane, ear canal and external ear normal. Nose: Mucosal edema, congestion and rhinorrhea present. Rhinorrhea is clear. Right Sinus: Maxillary sinus tenderness present. Left Sinus: Maxillary sinus tenderness present. Mouth/Throat: Mouth: Mucous membranes are moist. Pharynx: Oropharynx is clear. Uvula midline. Posterior oropharyngeal erythema present. Eyes: Conjunctiva/sclera: Conjunctivae normal. Cardiovascular: Rate and Rhythm: Normal rate and regular rhythm. Pulses: Normal pulses. Heart sounds: Normal heart sounds. Pulmonary: Effort: Pulmonary effort is normal. Breath sounds: Examination of the right-upper field reveals wheezing. Examination of the left-upperfield reveals wheezing. Wheezing present. Abdominal: General: Bowel sounds are normal. Musculoskeletal: General: Normal range of motion. Cervical back: Normal range of motion and neck supple. Skin: General: Skin is warm and dry. Neurological: General: No focal deficit present. Mental Status: She is alert. RESULTS No results found for this or any previous visit (from the past 1 hour(s)). ASSESSMENT/PLAN 1. Acute bronchitis, unspecified organism 2. Acute cough Orders Placed This Encounter SARS-COV-2 RAPID ANTIGEN (CLINIC ONLY) POCT INFLUENZA, A B predniSONE 20 MG tablet Albuterol 108 (90 Base) MCG/ACT Aero Soln inhaler uwllzefwtptjcbl-jgmnkwxxpdgcynhc-cdghTHLrbny (Capmist DM) 60-15-400 MG tablet Azithromycin 250 MG tablet Subjective history and physical exam findings are consistent with acute bronchitis. COVID-19 is negative, influenza a and B negative. I did start the patient on a Z-Russel, prednisone taper, prescribed albuterol inhaler and cap mist for symptomatic treatment. Supportive treatment reviewed. Vital signsare stable. I did advise the patient to go to the ER for any worsening or worrisome symptoms. Follow up if symptoms worsen or fails to improve over time. The risk and benefits of therapy were discussed with the patient. Alarm symptoms were discussed, along with reasons for contacting the office or going to the ER. Questions were answered for the patient. Follow up if symptoms worsen or fails to improve over time. If symptoms worsen patient was advised to follow up in our office, primary care provider or the Emergency Dept. Benefits, Risks, Contraindications, and Complications of recommended treatments were explained. The patient understands and agrees to proceed with plan. Jelena Walter APRN-DECORATOR [employer] 09/29/2023 documented in this [facility]12-20-2023 History of Present illness Narrative* Татьяна Brooke, MED - 09/01/2023 8:31 AM EST Subjective Patient ID: Drake Petty is a 28 y.o. female. HPI Like the lexapro but it has caused her to break out in her face. She has issues with cystic acne and it has gotten worse.. The following portions of the patient's history were reviewed and updated as appropriate: She has apast medical history of ADHD, Anxiety, Gestational diabetes, and PCOS (polycystic ovarian syndrome)(10/12/2019). She does not have any pertinent problems on file. She has a past surgical history that includes Knee surgery and Ganglion cyst excision (Right). Her family history includes ADD / ADHD in her brother; Diabetes in her maternal grandfather and paternal grandmother; Hypertension in her father; Obesity in her maternal grandfather and maternal grandmother; Rosacea in her mother. She reports that she has never smoked. She has never used smokeless tobacco. She reports that she does not currently use alcohol. She reports that she does not use drugs. Current Outpatient Medications Medication Sig Dispense Refill cholecalciferol, vitamin D3, 1,000 unit tablet Take 1 (one) tablet (1,000 Units total) by mouth daily . metFORMIN (GLUCOPHAGE-XR) 500 MG 24 hr tablet Take 1 (one) tablet (500 mg total) by mouth 2 (two) times a day . multivitamin (THERAGRAN) per tablet Take 1 (one) tablet by mouth daily . citalopram (CELEXA) 10 MG tablet Take 1 (one) tablet (10 mg total) by mouth daily . 30 tablet 11 No current facility-administered medications for this visit. . Review of Systems Constitutional: Negative for fatigue. Objective Physical Exam Psychiatric: Mood and Affect: Mood normal. Behavior: Behavior normal. Thought Content: Thought content normal. Judgment: Judgment normal. Assessment/Plan: Diagnoses and all orders for this visit: Anxiety - citalopram (CELEXA) 10 MG tablet; Take 1 (one) tablet (10 mg total) by mouth daily . Changed to celexa to see if acne resolves .akw documented in this [id number] History of Present illness Narrative* Татьяна Brooke CNP - 07/21/2023 3:30 PM EST Images from the original note were not included. OUTPATIENT WELL WOMAN PROGRESS NOTE Subjective: Drake Petty is a 28 y.o. female and is here for a comprehensive physical exam. The patientreports increased irritability and anxiety. Pt reports losing temper and being irritable related tolack of control -especially with son and timing of feedings/sleep. Denies sleep issues, appetite changes, thoughts of self harm. Pt also reports 3 nosebleeds in 2 days last week with clots. Nosebleeds stopped after 10-15 minutes. Denies bleeding elsewhere, bruises. Do you take any herbs or supplements that were not prescribed by a doctor? no Are you taking calcium supplements? yes Domestic violence: none Depression Screen: see below Diet: healthy Exercise: daily Immunizations: refuses at this time Last eye exam: Up to date Last dental visit: Up to date Last colonoscopy if >50y: n/a Any high risk behavior: none Tobacco use or exposure: none Alcohol use: not at this time HIV: neg HepC: neg Females: Last Mammogram: N/A Last Pap/HPV: at [facility] Last Dexa >65: N/A Hx of falls? 0 : 1 Para: 1 The following portions of the patient's history were reviewed and updated as appropriate: allergies, current medications, past family history, past medical history, past social history, past surgicalhistory and problem list. Past Medical History: Diagnosis Date ADHD Gestational diabetes PCOS (polycystic ovarian syndrome) 10/12/2019 Past Surgical History: Procedure Laterality Date GANGLION CYST EXCISION Right KNEE SURGERY 60 % of Meniscus removed left knee Social History Tobacco Use Smoking status: Never Smokeless tobacco: Never Vaping Use Vaping Use: Never used Substance Use Topics Alcohol use: Not Currently Drug use: No Family History Problem Relation Age of Onset Rosacea Mother Hypertension Father Obesity Maternal Grandmother Obesity Maternal Grandfather Diabetes Maternal Grandfather Diabetes Paternal Grandmother No Known Allergies Review of Systems Do you have pain that bothers you in your daily life? no Constitutional: negative for chills, malaise and sweats Eyes: negative for irritation, redness and visual disturbance Ears, nose, mouth, throat, and face: negative for earaches, snoring and tinnitus Respiratory: negative for cough, hemoptysis and wheezing Cardiovascular: negative for chest pain, dyspnea, fatigue and palpitations Gastrointestinal: negative for abdominal pain, constipation, diarrhea, nausea and vomiting Genitourinary:negative for dysuria, hematuria and urinary incontinence Integument/breast: negative for breast lump, breast tenderness, dryness, nipple discharge and skin color change Musculoskeletal:negative for arthralgias, myalgias and stiff joints Neurological: negative for dizziness, headaches, seizures and tremors Behavioral/Psych: negative for anxiety and depression Endocrine: negative for diabetic symptoms including blurry vision, polydipsia and polyuria Objective: BP Readings from Last 3 Encounters: 07/21/23 112/82 07/21/22 120/84 06/17/22 120/76 Wt Readings from Last 3 Encounters: 07/21/23 84.1 kg (185 lb 8 oz) 07/21/22 86 kg (189 lb 11.2 oz) 01/30/20 77.5 kg (170 lb 12.8 oz) BP 112/82 (BP Location: Right arm, Patient Position: Sitting, BP Cuff Size: Adult) Pulse (!) 107 Temp 98.2 F (36.8 C) (Temporal) Resp 16 Ht 5' 5 Wt 84.1 kg (185 lb 8 oz) SpO2 97% BMI 30.87 kg/m General Appearance: Alert, cooperative, no distress, appears stated age Head: Normocephalic, without obvious abnormality, atraumatic Eyes: PERRL, conjunctiva/corneas clear, EOM's intact, fundi benign, both eyes Ears: Normal TM's and external ear canals, both ears Nose: Nares normal, septum midline, mucosa normal, no drainage or sinus tenderness Neck: Supple, symmetrical, trachea midline, no adenopathy; thyroid: no enlargement/tenderness/nodules; no carotid bruit or JVD Chest Wall: No tenderness or deformity Heart: Regular rate and rhythm, S1 and S2 normal, no murmur, rub or gallop Abdomen: Soft, non-tender, bowel sounds active all four quadrants, no masses, no organomegaly Extremities: Extremities normal, atraumatic, no cyanosis or edema Pulses: 2+ and symmetric all extremities Skin: Skin color, texture, turgor normal, no rashes or lesions Lymph nodes: Cervical, supraclavicular, and axillary nodes normal Neurologic: CNII-XII intact, normal strength, sensation and reflexes throughout Assessment: Healthy female exam. Plan: 1. Patient Counseling: --Nutrition: Stressed importance of moderation in sodium/caffeine intake, saturated fat and cholesterol, caloric balance, sufficient intake of fresh fruits, vegetables, fiber, calcium, iron, and 1 mgof folate supplement per day (for females capable of ). --Exercise: Stressed the importance of regular exercise. --Substance Abuse: Discussed cessation/primary prevention of tobacco, alcohol, or other drug use --Sexuality: Discussed sexually transmitted diseases, partner selection, use of condoms, avoidance of unintended and contraceptive alternatives. --Dental health: Discussed importance of regular dental visits. --Immunizations reviewed. --Discussed benefits of screening mammograms, pap smears, and colonoscopy. 2. Discussed the patient's BMI with her. The BMI is in the acceptable range 3. Follow up in one year Problem List Items Addressed This Visit None Visit Diagnoses Preventative health care - Primary Anxiety Relevant Medications escitalopram oxalate (LEXAPRO) 10 MG tablet Continue the same. Will see after baby is born Electronically signed by Татьяна Brooke CWP 09/25/2019 5:00 PM 07/21/2022 7:00 AM 07/21/2023 3:24 PM Depression Screening Little interest or pleasure in doing things 1 0 0 Feeling down, depressed, or hopeless 0 0 0 PHQ-2 Total Score 1 0 0 Trouble falling or staying asleep, or sleeping too much 2 Feeling tired or having little energy 2 Poor appetite or overeating 1 Feeling bad about yourself - or that you are a failure or have let yourself or your family down 0 Trouble concentrating on things, such as reading the newspaper or watching television 0 Moving or speaking so slowly that other people could have noticed. Or the opposite - being so fidgety or restless that you have been moving around a lot more than usual 0 Thoughts that you would be better off , or of hurting yourself in some way 0 PHQ-9 Total Score 6 If you checked off any problems, how difficult have these problems made it for you to do your work,take care of things at home, or get along with other people? Somewhat difficult documented in this [id number] History of Present illness Narrative* SPENCER Donohue - 01/05/2023 9:30 AM EDT URGENT CARE eNCOUnter CHIEF COMPLAINT Sore Throat (Strep + on , prescribed penicillin not better. ), Cough, and Ear Pain HPI Drake Petty is a 27 y.o. female who presents today for complaint of sore throat, cough, congestion, and ear pain. Patient was seen last and diagnosed with strep throat. Patient started on penicillin. She still has 4 days left of the antibiotic. She feels like her symptoms have changed some. Now has more ear pressure, cough, congestion. REVIEW OF SYSTEMS Review of Systems As documented in HPI. A thorough 12 point review of systems was evaluated including Constitutional and general appearance, Head, Face, Ears, Eyes, Nose, Throat, Cardiovascular, Pulmonary, GI, , Skin, and Psychiatric andwas found to be negative without symptoms or signs consistent with acute pathology with the exception of that specifically documented in the HPI section of this documentation. PAST MEDICAL HISTORY Past Medical History: Diagnosis Date PCOS (polycystic ovarian syndrome) SURGICAL HISTORY Past Surgical History: Procedure Laterality Date ARTHROSCOPY KNEE W/ MENISCECTOMY left knee EXCISION GANGLION CYST WRIST right wrist CURRENT MEDICATIONS Current Outpatient Medications Medication Sig Dispense Refill Vit-Fe Fumarate-FA ( VITAMIN PO) Take by mouth. Vitamin D, Cholecalciferol, 25 MCG (1000 UT) tablet Take 1 tablet by mouth daily. Alcohol Swabs (Alcohol Wipes) 70 % Pads To be used to check blood sugar (Patient not taking: Reported on 09/21/2022) 100 Each 3 Blood Glucose Monitoring Suppl (ONE TOUCH ULTRA 2) w/Device Kit As directed. (Patient not taking: Reported on 09/21/2022) cyclobenzaprine 5 MG tablet Take 1 tablet by mouth 3 times daily as needed for Muscle spasms. (Patient not taking: Reported on 07/30/2022) 30 tablet 0 Lancets (OneTouch Delica Plus [id number]) Misc Use with glucometer to check BS every morning and then two hours after each meal. (Patient not taking: Reported on 09/21/2022) 120 Each 3 predniSONE 20 MG tablet Take 2 tablets by mouth daily for 3 days, THEN 1 tablet daily for 3 days. 40,40,40,20,20,20. 9 tablet 0 No current facility-administered medications for this visit. ALLERGIES No Known Allergies FAMILY HISTORY Family History Problem Relation Age of Onset No known problems Mother Hypertension Father Diabetes Maternal Grandfather Diabetes Paternal Grandmother SOCIAL HISTORY Social History Socioeconomic History Marital status: Spouse name: Not on file Number of children: Not on file Years of education: Not on file Highest education level: Not on file Occupational History Not on file Tobacco Use Smoking status: Never Smokeless tobacco: Never Vaping Use Vaping Use: Never used Substance and Sexual Activity Alcohol use: Not Currently Drug use: Never Sexual activity: Not Currently Partners: Male control/protection: None Other Topics Concern Service Not Asked Blood Transfusions Not Asked Caffeine Concern Not Asked Occupational Exposure Not Asked Hobby Hazards Not Asked Sleep Concern Not Asked Stress Concern Not Asked Weight Concern Not Asked Special Diet Not Asked Back Care Not Asked Exercise Not Asked Bike Helmet Not Asked Seat Belt Not Asked Domestic Violence No Social History Narrative Not on file Social Determinants of Health Financial Resource Strain: Not on file Food Insecurity: Not on file Transportation Needs: Not on file Physical Activity: Not on file Stress: Not on file Social Connections: Not on file Intimate Partner Violence: Not on file Housing Stability: Not on file PHYSICAL EXAM BP 131/74 (BP Location: Left arm, BP Position: Sitting) Pulse 96 Temp 98.6 F (37 C) (Temporal) Resp 18 Ht 1.626 m (5' 4) Wt 77.1 kg (170 lb) SpO2 99% BMI 29.18 kg/m Smoking Status Never Physical Exam General exam: Patient is well-developed and well-nourished in no distress. Patient does not appear acutely ill or toxic. Eye exam: Lids and conjunctivae are normal ENT exam: head and facial exam is normal. The neck is supple without meningeal signs. No significant adenopathy. Uvula midline. Tonsils erythematous with minimal edema. TMs clear bilaterally. Pulmonary exam: No respiratory distress. Respiratory rate is normal. No stridor. Breath sounds are equal bilaterally. There are no wheezes, rales, or rhonchi noted. Cardiac exam: The cardiac rate and rhythm are normal. No significant murmurs, rubs, or gallops. Peripheral pulses are normal. Skin and soft tissue: Skin is warm and dry, without significant abnormality. Good color. Neurologic: Patient is alert and appropriate. Normal speech. Normal symmetric strength and tone in all extremities. Psychiatric: Normal adult with appropriate demeanor and interpersonal interaction. Is oriented to person, place, and time. Diagnosis, Assessment & Plan: Drake was seen today for sore throat, cough and ear pain. Diagnoses and all orders for this visit: Viral URI with cough Acute cough Other orders - predniSONE 20 MG tablet; Take 2 tablets by mouth daily for 3 days, THEN 1 tablet daily for 3 days. 40,40,40,20,20,20. 27-year-old female presents today with cough and congestion. Discussed with patient to finish the antibiotic to cover for strep. I feel like she may have a viral illness on top of strep. Will start on prednisone. Discussed medications safe with . Follow up with PCP. Return if worsening. SPENCER Donohue 01/05/2023 documented in this [facility]02-07-2023 History of Present illness Narrative* Lemuel Lee MD - 10/20/2022 3:20 PM EST History of Present Illness Patient presents for follow-up of her episiotomy. Patient was last seen and had a small separation is healing process. Patient apply triple antibiotic ointment and now states that it has completely healed. She voices no concerns. She does describe small amount of soreness but otherwise healing well. Review of Systems Constitutional: Negative. Negative for activity change, appetite change, chills, diaphoresis, fatigue and fever. HENT: Negative. Negative for congestion and dental problem. Eyes: Negative for discharge and itching. Respiratory: Negative for apnea, cough, chest tightness, shortness of breath and wheezing. Cardiovascular: Negative for chest pain and leg swelling. Gastrointestinal: Negative for abdominal distention, abdominal pain and nausea. Endocrine: Negative for cold intolerance, heat intolerance, polydipsia and polyuria. Genitourinary: Negative for decreased urine volume, difficulty urinating, dysuria and genital sores. Musculoskeletal: Negative for arthralgias, back pain, gait problem and joint swelling. Skin: Negative for color change, pallor and rash. Allergic/Immunologic: Negative. Neurological: Negative for dizziness, tremors, seizures, weakness, light- headedness and headaches. Hematological: Negative for adenopathy. Does not bruise/bleed easily. Psychiatric/Behavioral: Negative for agitation, behavioral problems, hallucinations and suicidal ideas. The patient is not nervous/anxious. Vitals: Blood pressure 110/74, height 5' 4 (1.626 m), weight 175 lb (79.4 kg), last menstrual period 11/08/2021, currently . Physical Exam Genitourinary: Comments: External genitalia healing well Episiotomy now completely healed. Skin: General: Skin is warm and dry. Neurological: General: No focal deficit present. Mental Status: She is alert and oriented to person, place, and time. Mental status is at baseline. Psychiatric: Mood and Affect: Mood normal. Behavior: Behavior normal. Thought Content: Thought content normal. Judgment: Judgment normal. Neurological Exam Mental Status Alert. Oriented to person, place, and time. Assessment and Plan 1. Disruption of episiotomy wound in the puerperium patient's episiotomy is now well-healed. Patient follow-up prn Return in about 1 year (around 10/20/2023) for Annual Exam. The documentation within this encounter was likely aided with Dragon, and electronic toeing stockings device. Please excuse any errors or omissions that may not have been recognized at the time of this encounter. [facility] Miscellaneous Notes* Note - Janes Mcgovern RN - 08/13/2022 4:45 PM EST This note was copied from a baby's chart. Discharge instructions reviewed with parents at bedside. Parents educated on care, safe sleep, signs and symptoms to report to boarding house cook. Reinforced education about safe sleep and SIDS. Mother verbalizes understanding. Mother of denies having any questions at this time. Infants VSWDL. Exclusively fed breast milk. Infant stooling and voiding without difficulty. Parents educated and encouraged to schedule follow up appointment tomorrow or as soon as possible. Infant carried by FOB in car seat. Car seat clicked into base in car. * Note - Janes Mcgovern RN - 08/13/2022 12:00 PM EST This note was copied from a baby's chart. Assessment completed at this time. resting in crib. Chest rise noted on . Mouth and nares clear. Mother and VS WDL. Infant swaddled and resting in crib after assessment. Mother and father have no questions or concerns at this time. * Note - Minal Lee - 08/13/2022 10:55 AM EST Nipple pain overnight, right breast. Slight opening, light pink, no bleeding noted by patient .Extreme tenderness. Nipple face location noon to 6 o'clock. Left nipple in tact. Assist with latch, right side, football hold as she is not comfortable with this hold. Improved positioning, less pain, tolerable=10 minutes with stimulation. Self released, asleep. Parents state Baby cried and was inconsolable overnight, colostrum fed intermittently. Bilirubin WNL, but appears slightly yellow. Education: Skin to skin, normal feeding patterns,breast prep, therapeutic breast massage, feed on demand or 12x's/ 24 hours, elimination monitoring, packet, pump use/cleaning/frequency, breastmilk storage, handling, nipple care, [facility] Hotline, [facility] support group, formula preparation, cronobacter, positioning, paced bottle feeding, pacifier use,diet, deep latch/breast shaping. PLAN: Skin to skin, feed q 2 hours express after each feed for the next feed. Provide colostrum prior to or after latch for increase in output. Pump every other feed, right side. Latch on left * Note - Janes Mcgovern RN - 08/13/2022 8:00 AM EST This note was copied from a baby's chart. Head to toe assessments performed on mother and at this time. Mother denies any pain and infant showing no signs of distress. Infant resting in crib swaddled. VS WDL on mother and infant. Mother had no further concerns or questions. Call light within reach. * Note - Janes Mcgovern RN - 08/13/2022 7:00 AM EST This note was copied from a baby's chart. Report received from Eneida Shah RN. Infant in nursery during report for circumcision. Finished recovery for and transferred back to bedside at 0710. ID bands checked with mother and father. Infant crying in crib upon arrival back to the room. Infant placed on mothers chest with nares and mouth clear. Educated parents on circumcision care. Parents understood education with no further questions or concerns. Informed parents to call out for next diaper change to observe the circumsicion care. * Nursing Notes - Eneida Wright RN - 08/13/2022 3:48 AM EST Patient , teary eyed states she is exhausted and only had 2 hours of sleep yesterday. Problem solving facilitated and discussed options given to calm infant and give expressed milk afterfeeding. Patient instructed to call RN if needing assistance with infant calming techniques. Motherverbalizes an understanding. * Note - Eneida Wright RN - 08/13/2022 1:01 AM EST Patient experiencing pain in both nipples right nipple cracked. Discussed tips for deep latch. Patient inquired whether she can still breastfeed on that side. Suggested that patient express left sideif taking a break from latching infant a couple times. Encouraged to feed all expressed milk to infant following expression. Lanolin provided with instructions. Patient states building consultant told her she should be using 21 mm flanges but patient was using spectra s1 and doesn't have that size. 21 mm size flanges provided with pumping kit. Instructed on use of hand pump and electric breast pump. Patient verbalizes an understanding. * Plan of Care - Eneida Wright RN - 08/12/2022 9:02 PM EST Problem: Skin Integrity Impairment, Risk/Actual (Adult) Goal: Identify Related Risk Factors and Signs and Symptoms Description: Related risk factors and signs and symptoms are identified upon initiation of Human Response Clinical Practice Guideline (CPG) Outcome: Ongoing Goal: Skin Integrity/Wound Healing Description: Patient will demonstrate the desired outcomes by discharge/transition of care. Outcome: Ongoing Problem: Patient Care Overview Goal: Plan of Care Review Outcome: Ongoing Goal: Individualization & Mutuality Outcome: Ongoing Goal: Discharge Needs Assessment Outcome: Ongoing Goal: Interdisciplinary Rounds/Family Conf Outcome: Ongoing Problem: (Vaginal Delivery) (Adult,Obstetrics,Pediatric) Goal: Signs and Symptoms of Listed Potential Problems Will be Absent, Minimized or Managed () Description: Signs and symptoms of listed potential problems will be absent, minimized or managed by discharge/transition of care (reference (Vaginal Delivery) (Adult,Obstetrics,Pediatric)CPG). Outcome: Ongoing Flowsheets (Taken 08/12/20222056) Problems Assessed ( Vaginal Delivery): all Problems Present ( Vaginal Delivery): none Problem: (Adult,Obstetrics,Pediatric) Goal: Signs and Symptoms of Listed Potential Problems Will be Absent, Minimized or Managed () Description: Signs and symptoms of listed potential problems will be absent, minimized or managed by discharge/transition of care (reference (Adult,Obstetrics,Pediatric) CPG). Outcome: Ongoing Flowsheets (Taken 08/12/20222056) Problems Assessed (): all Problems Present (): none Problem: (Vaginal Delivery) (Adult,Obstetrics,Pediatric) Intervention: Support Life/Role Transition Flowsheets Taken 08/12/20222056 Trust Relationship/Rapport: care explained thoughts/feelings acknowledged Taken 08/12/20221999 Family/Support System Care: involvement promoted presence promoted Environmental Support: calm environment promoted rest periods encouraged rooming-in facilitated Parent/Child Attachment Promotion: attachment promoted qkrn-gr-cozn positioning promoted parent-child separation minimized positive reinforcement provided role responsibility promoted rooming-in promoted hpis-cj-[id number] contact encouraged strengths emphasized taught/modeled caring behavior Note: Patient bonding well with infant, on demand. Intervention: Minimize/Manage Infection Risk Flowsheets (Taken 08/12/20221999) Urinary Elimination Promotion: frequent voiding encouraged Perineal Care: perineum cleansed absorbent pad changed Intervention: Prevent/Manage DVT/VTE Risk Flowsheets (Taken 08/12/20221999) VTE Prevention/Management: N/A - Pt. Ambulating (NO orders for mechanical/pharmacological VTE prophylaxis) Intervention: Monitor/Manage Bleeding Flowsheets (Taken 08/12/20222056) Bleed Management: bladder emptying facilitated Note: Patient voiding spontaneously and lochia WDL. Problem: (Adult,Obstetrics,Pediatric) Intervention: Promote Breast Care/Comfort Flowsheets Taken 08/12/20222056 Breast Care (Lactating): supportive bra off Taken 08/12/20221999 Nipple Care (Lactating): open to air Intervention: Provide Support During Feeding Sessions Flowsheets Taken 08/12/20222056 Assistance: feeding cue recognition promoted Taken 08/12/20221999 Parent/Child Attachment Promotion: attachment promoted snwz-pd-wzol positioning promoted parent-child separation minimized positive reinforcement provided role responsibility promoted rooming-in promoted iyix-fg-yeit contact encouraged strengths emphasized taught/modeled caring behavior Note: Encouraged patient to increase frequency of feeds and suggested she supplement with hand expressed colostrum with feeds. Intervention: Promote Positive Maternal Experience Flowsheets Taken 08/12/20222056 Coping Interventions: care explained to patient/family prior to performing presence/involvement promoted Taken 08/12/20221999 Supportive Measures: active listening utilized goal setting facilitated positive reinforcement provided verbalization of feelings encouraged Intervention: Support Exclusive Success Flowsheets Taken 08/12/20222056 Stability/Consolability Measures: attachment/bonding promoted Taken 08/12/20221999 Maternal Support: maternal hydration promoted -mother separation minimized encouragement offered diary/feeding log utilized Problem: (Vaginal Delivery) (Adult,Obstetrics,Pediatric) Intervention: Support Life/Role Transition Flowsheets Taken 08/12/20222056 Trust Relationship/Rapport: care explained thoughts/feelings acknowledged Taken 08/12/20221999 Family/Support System Care: involvement promoted presence promoted Environmental Support: calm environment promoted rest periods encouraged rooming-in facilitated Parent/Child Attachment Promotion: attachment promoted mwuc-jh-fzdf positioning promoted parent-child separation minimized positive reinforcement provided role responsibility promoted rooming-in promoted klkr-pi-mxpe contact encouraged strengths emphasized taught/modeled caring behavior Note: Patient bonding well with infant, on demand. Intervention: Minimize/Manage Infection Risk Flowsheets (Taken 08/12/20221999) Urinary Elimination Promotion: frequent voiding encouraged Perineal Care: perineum cleansed absorbent pad changed Intervention: Prevent/Manage DVT/VTE Risk Flowsheets (Taken 08/12/20221999) VTE Prevention/Management: N/A - Pt. Ambulating (NO orders for mechanical/pharmacological VTE prophylaxis) Intervention: Monitor/Manage Bleeding Flowsheets (Taken 08/12/20222056) Bleed Management: bladder emptying facilitated Note: Patient voiding spontaneously and lochia WDL. Problem: (Adult,Obstetrics,Pediatric) Intervention: Promote Breast Care/Comfort Flowsheets Taken 08/12/20222056 Breast Care (Lactating): supportive bra off Taken 08/12/20221999 Nipple Care (Lactating): open to air Intervention: Provide Support During Feeding Sessions Flowsheets Taken 08/12/20222056 Assistance: feeding cue recognition promoted Taken 08/12/20221999 Parent/Child Attachment Promotion: attachment promoted ymuo-tr-izco positioning promoted parent-child separation minimized positive reinforcement provided role responsibility promoted rooming-in promoted [id number]-[id number] contact encouraged strengths emphasized taught/modeled caring behavior Note: Encouraged patient to increase frequency of feeds and suggested she supplement with hand expressed colostrum with feeds. Intervention: Promote Positive Maternal Experience Flowsheets Taken 08/12/20222056 Coping Interventions: care explained to patient/family prior to performing presence/involvement promoted Taken 08/12/20221999 Supportive Measures: active listening utilized goal setting facilitated positive reinforcement provided verbalization of feelings encouraged Intervention: Support Exclusive Success Flowsheets Taken 08/12/20222056 Stability/Consolability Measures: attachment/bonding promoted Taken 08/12/20221999 Maternal Support: maternal hydration promoted -mother separation minimized encouragement offered diary/feeding log utilized * Note - Laureen Garza RN - 08/12/2022 7:15 PM EST Bedside report with Tanja Wright RN. Mother resting in bed with no distress noted. swaddled andsleeping in open crib. * Note - Laureen Garza RN - 08/12/2022 5:00 PM EST Assessments done at this time. Dinner ordered. Parents deny needs. Call light in reach. * Note - Laureen Garza RN - 08/12/2022 4:45 PM EST Mother with no distress noted. Denies nipple pain. * Note - Minal Lee - 08/12/2022 3:45 PM EST Baby crying inconsolably. This IBCLC in to assist. Parents attempting latch 20 minutes. Baby would not calm down to latch. Patient requested colostrum expressed prenatally, stored in breastmilk storage refrigerator. 4ml warmed and provided via finger feeding. Baby calmed. Latched easily to right breast, cross cradle hold. Active with stimulation/ breast compression to stay on task. Had large stool since last consult. PLAN: If baby does not want to latch and will not calm, provide colostrum prior to another attempt.Continue to feed on demand, skin to skin * Note - Laureen Garza RN - 08/12/2022 1:00 PM EST Mother holding and states she just finished for 20 minutes. Assessments done at this time. Pt eating lunch. Denies needs at this time. Call light in reach. * Nursing Notes - HENRY Holcomb - 08/12/2022 12:31 PM EST Water provided. * Note - HENRY Holcomb - 08/12/2022 12:00 PM EST Help me grow, declined. * Note - Laureen Garza RN - 08/12/2022 10:00 AM EST Viral Lee at bedside to assist with . * Note - Minal Lee - 08/12/2022 9:20 AM EST This note was copied from a baby's chart. Baby asleep, swaddled in crib. Patient stated Nursing going well. I just have occasional trouble with latch, but we keep trying until he latches on Prior feeds = cradle, football, cross cradle holds. Positional Demonstration with model baby- cross cradle/football holds for deep latch. Baby showing hunger cues. Placed skin to skin. Latch assistance, right side, cross cradle hold =immediate, deep latch. Active suckling, minimal stimulation to stay on task=12 minutes, self released,asleep. Round nipple shaft, no damage. Eliminations OVER target for age. This IBCLC changed large stool/ void prior to latch. Education: Skin to skin, normal feeding patterns,breast prep, therapeutic breast massage, breast compression,waking techniques, feed on demand 8-12x's/24 hours,elimination monitoring, , pump use/cleaning/ frequency, breastmilk storage, handling, nipple care, positioning, Bottle/ pacifier use ,diet, deep latch/breast shaping, stomach growth, volume increase. PLAN:Continue to Feed on demand, skin to skin, monitor eliminations * Plan of Care - Laureen Garza RN - 08/12/2022 9:00 AM EST Problem: Skin Integrity Impairment, Risk/Actual (Adult) Goal: Identify Related Risk Factors and Signs and Symptoms Description: Related risk factors and signs and symptoms are identified upon initiation of Human Response Clinical Practice Guideline (CPG) Outcome: Ongoing Goal: Skin Integrity/Wound Healing Description: Patient will demonstrate the desired outcomes by discharge/transition of care. Outcome: Ongoing Problem: Patient Care Overview Goal: Plan of Care Review Outcome: Ongoing Goal: Individualization & Mutuality Outcome: Ongoing Goal: Discharge Needs Assessment Outcome: Ongoing Goal: Interdisciplinary Rounds/Family Conf Outcome: Ongoing Problem: (Vaginal Delivery) (Adult,Obstetrics,Pediatric) Goal: Signs and Symptoms of Listed Potential Problems Will be Absent, Minimized or Managed () Description: Signs and symptoms of listed potential problems will be absent, minimized or managed by discharge/transition of care (reference (Vaginal Delivery) (Adult,Obstetrics,Pediatric)CPG). Outcome: Ongoing Problem: (Adult,Obstetrics,Pediatric) Goal: Signs and Symptoms of Listed Potential Problems Will be Absent, Minimized or Managed () Description: Signs and symptoms of listed potential problems will be absent, minimized or managed by discharge/transition of care (reference (Adult,Obstetrics,Pediatric) CPG). Outcome: Ongoing * Note - Laureen Garza RN - 08/12/2022 8:30 AM EST Mother resting in bed holding infant. Assessments done at this time. IV removed. No distress noted in mother or infant. Mother states she is going to breastfeed infant and feels comfortable latching infant. Fresh water provided. Call light in reach. * Note - Olivia Blanco RN - 08/12/2022 4:54 AM EST This note was copied from a baby's chart. Assessment and vitals obtained on and mother. Infant being held skin to skin with mother. Infant shows no signs of distress. Tone: Extremities full flexed; edwards recoil Position: Nares and mouth uncovered and visible; neck midline. Mother denies any needs. Call light within mother's reach. * Note - Olivia Blanco RN - 08/12/2022 1:12 AM EST This note was copied from a baby's chart. Blood sugar obtained on . voided and diaper changed by father. Mother going to feed . Informed mother to let this nurse know if she needed any help with . showsno signs of distress. Mother denies any needs. Call light within mother's reach. * Note - Olivia Blanco RN - 08/11/2022 11:40 PM EST This note was copied from a baby's chart. New blood sugar obtained on infant. 's blood sugar 47. Will continue to monitor. Assessment and vitals obtained on infant and mother. Infant lying comfortably in open crib. shows no signs of distress. Mother denies any needs. Call light within mother's reach. * Note - Olivia Blanco RN - 08/11/2022 10:50 PM EST This note was copied from a baby's chart. 's blood sugar 26 before . Glucose gel given. Mother attempted to breastfeed butinfant would not latch. Mother had colostrum in the fridge which she had hand expressed earlier. Showed parents how to syringe feed . skin to skin while parents are syringefeeding . Will repeat blood sugar 30 minutes after the completion of the feed. * Note - Olivia Blanco RN - 08/11/2022 8:30 PM EST This note was copied from a baby's chart. and mother moved over to room #204. Infant placed on far side of room away from open doorway. Infant swaddled and lying in open crib. shows no signs of distress. Mother denies any needs. Call light within mother's reach. * Note - Olivia Blanco RN - 08/11/2022 7:00 PM EST This note was copied from a baby's chart. Report received from Shivam Savage RN. * L&D Delivery Note - Lemuel Lee MD - 08/11/2022 6:03 PM EST Delivery Summary Patient progressed to complete/ complete with epidural and was allowed to push vertex progressed to a +2 to +3 station, occiput anterior De Souza catheter was removed Repetitive deep variable decelerations with good recovery over last 10-12 contractions Shashank Almeida forceps applied in straight occiput anterior position Moderate to strong pull Low forceps vaginal delivery over midline episiotomy Oral nasopharynx suctioned on the perineum Vigorous male to maternal abdomen doing well No vaginal or cervical lacerations Second degree perineal laceration repair with 3-0 Vicryl suture Mother and doing well See below for weight and Apgars [facility] [[id number]] Delivery () Delivery date/time: 08/11/2022 5:36 PM Sex: Male Delivery type: Vaginal, Forceps Details: Labor Events Rupture date/time: 08/11/2022 0616 Rupture type: artificial rupture of membranes Fluid color: clear Fluid Odor: none Labor complications: None Delivery (Maternal) Episiotomy: Median Indications for episiotomy: Instrumented Delivery, Expedited Delivery for Well [facility] Perineal lacerations: 2nd Repaired?: Yes Number of repair packets: 1 Vaginal delivery est. blood loss (mL): 300 Surgical or additional est. blood loss (mL): 0 Edit in Flowsheets Combined est. blood loss (mL): 300 QBL Calculators: Surgical QBL Vaginal QBL Sponge Count Final count verified by RN: Yes Final count verified by MD: Yes Needle Count Presentation Presentation: cephalic, vertex Position: Occiput Anterior Anesthesia Method: Epidural Delivery Providers Attending physician for delivery: Lemuel Lee MD Resuscitation Placenta Removal: Expressed Appearance: Intact Placenta for examination?: No Cord Vessels: 3 Vessels Complications: None Delayed cord clamping?: No Cord blood disposition: Lab, Refrigerator Gases sent?: No Stem cell collection (by provider): No [place] Measurements Apgars Living status: Apgars: 1 min.: 5 min.: 10 min.: 15 min.: 20 min.: Skin color: Heart rate: Reflex irritability: Muscle tone: Respiratory effort: Total: Shoulder Dystocia Shoulder dystocia present?: No * Nursing Notes - Citlaly Savage RN - 08/11/2022 5:[address] Lee at bedside * Nursing Notes - Citlaly Savage RN - 08/11/2022 4:[address] Lee calls at this time requesting update on patient. Updated Dr. Lee that patient is complete. Dr. Lee instructs this RN to continue practice pushing with patient. * Nursing Notes - Citlaly Savage RN - 08/11/2022 4:[address] Lee calls back at this time. This RN informs Dr. Lee that patient had a prolonger variable at 1536 and that this RN performed an SVE at 1540. This RN informs Dr. Lee that patient was having increased pressure at 1555 and that this RN performed another SVE and that patient is 9.[address] a [address] lip[address] Lee instructs this RN to restart the pitocin at 8 and to perform vaginal check and practice push to see where baby moves. * Nursing Notes - Nannetet Cardoza RN - 08/11/2022 2:[address] Lee calls back and gives order to restart pitocin at 14 in 10-15 minutes. * Nursing Notes - Nannette Cardoza RN - 08/11/2022 2:43 PM EST Call placed to Dr. Lee in regards to prolong decel and interventions such as shutting off pitocin, position changes, vag check, oxygen and LR bolus. Will review strip and call back. * Nursing Notes - Citlaly Savage RN - 08/11/2022 1:[address] Lee of patient's recent SVE. Dr. Lee instructs to check patient again in aboutan hour. * Nursing Notes - Citlaly Savage RN - 08/11/2022 1:[address] Lee at bedside * Nursing Notes - Citlaly Savage RN - 08/11/2022 12:42 PM EST Raven MANSFIELD at bedside for epidural placement * Nursing Notes - Citlaly Savage RN - 08/11/2022 12:07 PM EST Assessment completed at this time, refer to flow sheet. Patient rating pain a 7/10 and requesting nubain at this time. Patient denies current needs. * Nursing Notes - Citlaly Savage RN - 08/11/2022 9:[address] Lee at bedside * Nursing Notes - Citlaly Savage RN - 08/11/2022 7:00 AM EST Assessment completed at this time, refer to flow sheet. Patient in bed, no distress noted. Patient denies current pain. Plan of care reviewed with patient, patient denies any questions at this time. Call light within reach. * Certification - Lemuel Lee MD - 08/11/2022 6:30 AM EST I certify that this patient requires inpatient services at this time. I anticipate the expected length of stay will include at least two midnights. Current treatment plan includes induction and delivery. Plans for post hospitalization care will be discharge to home. * Nursing Notes - Anusha Voss - 08/11/2022 6:[address] Lee at bedside to break water, perform a cervical exam, and place FSE. * Nursing Notes - Margot Arana RN - 08/11/2022 5:[address] Lee is OK with 0.9% NS for continuous IV fluids. * Nursing Notes - Anusha Voss - 08/11/2022 5:00 AM EST Assessment completed at this time. Pt resting comfortably in bed with equal chest expansion and unlabored breathing. Call light within reach. * Nursing Notes - Margot Arana RN - 08/11/2022 3:55 AM EST Urine and covid collected. Pt oriented to room. * Nursing Notes - Margot Arana RN - 08/11/2022 3:45 AM EST Patient ambulates onto unit. Height and weight obtained. Patient ambulates to room 213. documented in this encounterSpanish [facility] CenterVaultLog[facility] [id number] Obstetrics Note* Note - Janes Mcgovern RN - 08/13/2022 4:45 PM EST This note was copied from a baby's chart. Discharge instructions reviewed with parents at bedside. Parents educated on care, safe sleep, signs and symptoms to report to boarding house cook. Reinforced education about safe sleep and SIDS. Mother verbalizes understanding. Mother of infant denies having any questions at this time. Infants VSWDL. Exclusively fed breast milk. stooling and voiding without difficulty. Parents educated and encouraged to schedule follow up appointment tomorrow or as soon as possible. Infant carried by FOB in car seat. Car seat clicked into base in car. [employer]12-01-2022 Obstetrics Note* Note - Janes Mcgovern RN - 08/13/2022 12:00 PM EST This note was copied from a baby's chart. Assessment completed at this time. resting in crib. Chest rise noted on . Mouth and nares clear. Mother and VS WDL. Infant swaddled and resting in crib after assessment. Mother and father have no questions or concerns at this time. [employer]12-01-2022 Obstetrics Note* Note - Minal Lee - 08/13/2022 10:55 AM EST Nipple pain overnight, right breast. Slight opening, light pink, no bleeding noted by patient .Extreme tenderness. Nipple face location noon to 6 o'clock. Left nipple in tact. Assist with latch, right side, football hold as she is not comfortable with this hold. Improved positioning, less pain, tolerable=10 minutes with stimulation. Self released, asleep. Parents state Baby cried and was inconsolable overnight, colostrum fed intermittently. Bilirubin WNL, but appears slightly yellow. Education: Skin to skin, normal feeding patterns,breast prep, therapeutic breast massage, feed on demand or 12x's/ 24 hours, elimination monitoring, packet, pump use/cleaning/frequency, breastmilk storage, handling, nipple care, [facility] Hotline, [email or web address] support group, formula preparation, cronobacter, positioning, paced bottle feeding, pacifier use,diet, deep latch/breast shaping. PLAN: Skin to skin, feed q 2 hours express after each feed for the next feed. Provide colostrum prior to or after latch for increase in output. Pump every other feed, right side. Latch on left [email or web address] [id number] Obstetrics Note* Note - Janes Mcgovern RN - 08/13/2022 8:00 AM EST This note was copied from a baby's chart. Head to toe assessments performed on mother and at this time. Mother denies any pain and showing no signs of distress. resting in crib swaddled. VS WDL on mother and . Mother had no further concerns or questions. Call light within reach. [facility] [[email or web address]] [facility] [id number] Hospital course Narrative* Lemuel K Jesus, MD - 08/13/2022 7:07 AM EST Discharge Summary Name: Drake Petty Age: 27 y.o. Birthday: 1995 Admit Date: 08/11/2022 3:41 AM Discharge Date: 08/13/20 Admission Information Admitting Physician: Lemuel Lee MD Discharge Information Discharge Physician: Jesus Problem List Active Hospital Problems Diagnosis Encounter for induction of labor Resolved Hospital Problems No resolved problems to display. Brief Summary of Hospital Course for Discharge Summary: Patient underwent induction on 08/11/2022. She delivered successfully vaginally without complications with the use of forceps. By day #2 she was eager for release. Diet, activity, office instruction reviewed. Patient to follow up in 6 weeks. Summary of last selected lab results and date obtained: Lab Results Component Value Date WBC 14.3 (H) 08/12/2022 HGB 11.9 (L) 08/12/2022 HCT 35.1 (L) 08/12/2022 PLATELET 194 08/12/2022 MCV 81.8 08/12/2022 Lab Results Component Value Date SODIUM 134 (L) 07/13/2022 POTASSIUM 3.9 07/13/2022 CHLORIDE 106 07/13/2022 CO2 22 07/13/2022 BUN 11 07/13/2022 CREATSERUM 0.70 07/13/2022 GLUCOSE 91 08/11/2022 Lab Results Component Value Date ALT 18 07/13/2022 AST 23 07/13/2022 ALKPHOS 131 (H) 07/13/2022 BILITOTAL 0.1 (L) 07/13/2022 Brief Summary of Labs for Discharge Summary: Discharge Orders Activity as tolerated Diet - Regular Call MD for: temperature > 100.4 Call MD for: persistent nausea or vomiting Call MD for: severe uncontrolled pain Call MD for: redness, tenderness or signs of infection (pain, swelling, redness, odor or green/yellow discharge around incision site) Call MD for: difficulty breathing, headache or visual disturbances No dressing needed Current Outpatient Meds: Medication List for when you go home CONTINUE taking these medications Alcohol Wipes 70 % PADS To be used to check blood sugar ONE TOUCH ULTRA 2 w/Device KIT As directed. OneTouch Delica Plus [id number] MISC Use with glucometer to check BS every morning and then two hours after each meal. VITAMIN PO Take by mouth. Vitamin D (Cholecalciferol) 25 MCG (1000 UT) TABS Take 1,000 Units by mouth daily. STOP taking these medications Folic Acid 400 MCG TABS GLUCOSE MONITOR PRESCRIPTION OneTouch Ultra STRP strip Generic drug: glucose blood test strips ASK your doctor about these medications cyclobenzaprine 5 MG TABS Take 1 tablet by mouth 3 times daily as needed for Muscle spasms. Commonly known as: FLEXERIL Follow-up: Lemuel Lee MD [address] [facility] [id number] Schedule an appointment as soon as possible for a visit in 6 week(s) Routine Post Exam documented in this [facility]12-01-2022 History of Present illness Narrative* Lemuel Lee MD - 08/13/2022 7:04 AM EST Progress note Subjective: Patient doing well. She was specific concerns. She is breast-feeding. She is eager for release Temp: [97.4 F (36.3 C)-98 F (36.7 C)] 97.6 F (36.4 C) Pulse (Heart Rate): [89-97] 89 Resp Rate: [16-20] 20 BP: (119-136)/(69-77) 136/77 O2 Sat (%): [95 %-96 %] 95 % Lab Results Component Value Date WBC 14.3 (H) 08/12/2022 HGB 11.9 (L) 08/12/2022 HCT 35.1 (L) 08/12/2022 PLATELET 194 08/12/2022 MCV 81.8 08/12/2022 Objective: Chest clear to auscultation, cardiovascular system regular rate and rhythm, looking normal, fundus firm below the umbilicus, extremity pain, perineum healing well. RN, soft and nontender Assessment and Plan: 1. day #2: We will release to home. Diet, activity, follow-up instructions were reviewed. Patient is to follow up in 6 weeks 2. Breast-feeding 3. control: We will discuss at 6 weeks visit. * Lemuel Lee MD - 08/12/2022 7:20 AM EST Progress note Subjective: Patient doing well. She voices no specific concerns. She is breast-feeding. Temp: [96.6 F (35.9 C)-98.4 F (36.9 C)] 97.7 F (36.5 C) Pulse (Heart Rate): [63-133] 90 Resp Rate: [14-18] 16 BP: (91-145)/(50-90) 119/73 O2 Sat (%): [71 %-100 %] 95 % Lab Results Component Value Date WBC 14.3 (H) 08/12/2022 HGB 11.9 (L) 08/12/2022 HCT 35.1 (L) 08/12/2022 PLATELET 194 08/12/2022 MCV 81.8 08/12/2022 Objective: Chest clear to auscultation, cardiovascular system regular rate and rhythm, lochia normal, fundus firm below the umbilicus, extremities benign, abdomen is soft and nontender, perineum healing well per the RN. Assessment and Plan: 1. day #1: Patient doing well. Anticipate release tomorrow 2. Breast-feeding documented in this [facility]12-01-2022 Obstetrics Note* Note - Janes Mcgovern RN - 08/13/2022 7:00 AM EST This note was copied from a baby's chart. Report received from Eneida Shah RN. in nursery during report for circumcision. Finished recovery for infant and transferred back to bedside at 0710. ID bands checked with mother and father. crying in crib upon arrival back to the room. Infant placed on mothers chest with nares and mouth clear. Educated parents on circumcision care. Parents understood education with no further questions or concerns. Informed parents to call out for next diaper change to observe the circumsicion care. [facility] [[email or web address]] [facility]* Nursing Notes - Eneida Wright RN - 08/13/2022 3:48 AM EST Patient , teary eyed states she is exhausted and only had 2 hours of sleep yesterday. Problem solving facilitated and discussed options given to calm infant and give expressed milk afterfeeding. Patient instructed to call RN if needing assistance with calming techniques. Motherverbalizes an understanding. [facility] [[email or web address]] [facility] Obstetrics Note* Note - Eneida Wright RN - 08/13/2022 1:01 AM EST Patient experiencing pain in both nipples right nipple cracked. Discussed tips for deep latch. Patient inquired whether she can still breastfeed on that side. Suggested that patient express left sideif taking a break from latching a couple times. Encouraged to feed all expressed milk to following expression. Lanolin provided with instructions. Patient states building consultant told her she should be using 21 mm flanges but patient was using spectra s1 and doesn't have that size. 21 mm size flanges provided with pumping kit. Instructed on use of hand pump and electric breast pump. Patient verbalizes an understanding. [facility] [[email or web address]] [facility] Note* Plan of Care - Eneida Wright RN - 08/12/2022 9:02 PM EST Problem: Skin Integrity Impairment, Risk/Actual (Adult) Goal: Identify Related Risk Factors and Signs and Symptoms Description: Related risk factors and signs and symptoms are identified upon initiation of Human [employer] Clinical Practice Guideline (CPG) Outcome: Ongoing Goal: Skin Integrity/Wound Healing Description: Patient will demonstrate the desired outcomes by discharge/transition of care. Outcome: Ongoing Problem: Patient Care Overview Goal: Plan of Care Review Outcome: Ongoing Goal: Individualization & Mutuality Outcome: Ongoing Goal: Discharge Needs Assessment Outcome: Ongoing Goal: Interdisciplinary Rounds/Family Conf Outcome: Ongoing Problem: (Vaginal Delivery) (Adult,Obstetrics,Pediatric) Goal: Signs and Symptoms of Listed Potential Problems Will be Absent, Minimized or Managed () Description: Signs and symptoms of listed potential problems will be absent, minimized or managed by discharge/transition of care (reference (Vaginal Delivery) (Adult,Obstetrics,Pediatric)CPG). Outcome: Ongoing Flowsheets (Taken 08/12/20222056) Problems Assessed ( Vaginal Delivery): all Problems Present ( Vaginal Delivery): none Problem: (Adult,Obstetrics,Pediatric) Goal: Signs and Symptoms of Listed Potential Problems Will be Absent, Minimized or Managed () Description: Signs and symptoms of listed potential problems will be absent, minimized or managed by discharge/transition of care (reference (Adult,Obstetrics,Pediatric) CPG). Outcome: Ongoing Flowsheets (Taken 08/12/20222056) Problems Assessed (): all Problems Present (): none Problem: (Vaginal Delivery) (Adult,Obstetrics,Pediatric) Intervention: Support Life/Role Transition Flowsheets Taken 08/12/20222056 Trust Relationship/Rapport: care explained thoughts/feelings acknowledged Taken 08/12/20221999 Family/Support System Care: involvement promoted presence promoted Environmental Support: calm environment promoted rest periods encouraged rooming-in facilitated Parent/Child Attachment Promotion: attachment promoted ktgb-og-piss positioning promoted parent-child separation minimized positive reinforcement provided role responsibility promoted rooming-in promoted wzxg-fh-kujl contact encouraged strengths emphasized taught/modeled caring behavior Note: Patient bonding well with , on demand. Intervention: Minimize/Manage Infection Risk Flowsheets (Taken 08/12/20221999) Urinary Elimination Promotion: frequent voiding encouraged Perineal Care: perineum cleansed absorbent pad changed Intervention: Prevent/Manage DVT/VTE Risk Flowsheets (Taken 08/12/20221999) VTE Prevention/Management: N/A - Pt. Ambulating (NO orders for mechanical/pharmacological VTE prophylaxis) Intervention: Monitor/Manage Bleeding Flowsheets (Taken 08/12/20222056) Bleed Management: bladder emptying facilitated Note: Patient voiding spontaneously and lochia WDL. Problem: (Adult,Obstetrics,Pediatric) Intervention: Promote Breast Care/Comfort Flowsheets Taken 08/12/20222056 Breast Care (Lactating): supportive bra off Taken 08/12/20221999 Nipple Care (Lactating): open to air Intervention: Provide Support During Feeding Sessions Flowsheets Taken 08/12/20222056 Assistance: feeding cue recognition promoted Taken 08/12/20221999 Parent/Child Attachment Promotion: attachment promoted veow-bu-igxv positioning promoted parent-child separation minimized positive reinforcement provided role responsibility promoted rooming-in promoted njtj-iy-ucvy contact encouraged strengths emphasized taught/modeled caring behavior Note: Encouraged patient to increase frequency of feeds and suggested she supplement with hand expressed colostrum with feeds. Intervention: Promote Positive Maternal Experience Flowsheets Taken 08/12/20222056 Coping Interventions: care explained to patient/family prior to performing presence/involvement promoted Taken 08/12/20221999 Supportive Measures: active listening utilized goal setting facilitated positive reinforcement provided verbalization of feelings encouraged Intervention: Support Exclusive Success Flowsheets Taken 08/12/20222056 Stability/Consolability Measures: attachment/bonding promoted Taken 08/12/20221999 Maternal Support: maternal hydration promoted infant-mother separation minimized encouragement offered diary/feeding log utilized Problem: (Vaginal Delivery) (Adult,Obstetrics,Pediatric) Intervention: Support Life/Role Transition Flowsheets Taken 08/12/20222056 Trust Relationship/Rapport: care explained thoughts/feelings acknowledged Taken 08/12/20221999 Family/Support System Care: involvement promoted presence promoted Environmental Support: calm environment promoted rest periods encouraged rooming-in facilitated Parent/Child Attachment Promotion: attachment promoted jojj-ag-wynk positioning promoted parent-child separation minimized positive reinforcement provided role responsibility promoted rooming-in promoted ikns-vz-jqqm contact encouraged strengths emphasized taught/modeled caring behavior Note: Patient bonding well with , on demand. Intervention: Minimize/Manage Infection Risk Flowsheets (Taken 08/12/20221999) Urinary Elimination Promotion: frequent voiding encouraged Perineal Care: perineum cleansed absorbent pad changed Intervention: Prevent/Manage DVT/VTE Risk Flowsheets (Taken 08/12/20221999) VTE Prevention/Management: N/A - Pt. Ambulating (NO orders for mechanical/pharmacological VTE prophylaxis) Intervention: Monitor/Manage Bleeding Flowsheets (Taken 08/12/20222056) Bleed Management: bladder emptying facilitated Note: Patient voiding spontaneously and lochia WDL. Problem: (Adult,Obstetrics,Pediatric) Intervention: Promote Breast Care/Comfort Flowsheets Taken 08/12/20222056 Breast Care (Lactating): supportive bra off Taken 08/12/20221999 Nipple Care (Lactating): open to air Intervention: Provide Support During Feeding Sessions Flowsheets Taken 08/12/20222056 Assistance: feeding cue recognition promoted Taken 08/12/20221999 Parent/Child Attachment Promotion: attachment promoted ztuq-nu-fimf positioning promoted parent-child separation minimized positive reinforcement provided role responsibility promoted rooming-in promoted [id number] contact encouraged strengths emphasized taught/modeled caring behavior Note: Encouraged patient to increase frequency of feeds and suggested she supplement with hand expressed colostrum with feeds. Intervention: Promote Positive Maternal Experience Flowsheets Taken 08/12/20222056 Coping Interventions: care explained to patient/family prior to performing presence/involvement promoted Taken 08/12/20221999 Supportive Measures: active listening utilized goal setting facilitated positive reinforcement provided verbalization of feelings encouraged Intervention: Support Exclusive Success Flowsheets Taken 08/12/20222056 Stability/Consolability Measures: attachment/bonding promoted Taken 08/12/20221999 Maternal Support: maternal hydration promoted infant-mother separation minimized encouragement offered diary/feeding log utilized [facility] [[email or web address]] [employer] [id number] Obstetrics Note* Note - Laureen Garza RN - 08/12/2022 7:15 PM EST Bedside report with Tanja Wright RN. Mother resting in bed with no distress noted. swaddled andsleeping in open crib. [facility] [[email or web address]] [facility] [id number] Obstetrics Note* Note - Laureen Garza RN - 08/12/2022 5:00 PM EST Assessments done at this time. Dinner ordered. Parents deny needs. Call light in reach. [facility] [[email or web address]] [facility] [id number] Obstetrics Note* Note - Laureen Garza RN - 08/12/2022 4:45 PM EST Mother with no distress noted. Denies nipple pain. [facility]11-30-2022 Obstetrics Note* Note - Minal Lee - 08/12/2022 3:45 PM EST Baby crying inconsolably. This IBCLC in to assist. Parents attempting latch 20 minutes. Baby would not calm down to latch. Patient requested colostrum expressed prenatally, stored in breastmilk storage refrigerator. 4ml warmed and provided via finger feeding. Baby calmed. Latched easily to right breast, cross cradle hold. Active with stimulation/ breast compression to stay on task. Had large stool since last consult. PLAN: If baby does not want to latch and will not calm, provide colostrum prior to another attempt.Continue to feed on demand, skin to skin [facility]11-30-2022 Obstetrics Note* Note - Laureen Garza RN - 08/12/2022 1:00 PM EST Mother holding and states she just finished for 20 minutes. Assessments done at this time. Pt eating lunch. Denies needs at this time. Call light in reach. [facility]11-30-2022 Note* Nursing Notes - HENRY Holcomb - 08/12/2022 12:31 PM EST Water provided. [facility]11-30-2022 Obstetrics Note* Note - HENRY Holcomb - 08/12/2022 12:00 PM EST Help me grow, declined. [facility]11-30-2022 Obstetrics Note* Note - Laureen Garza RN - 08/12/2022 10:00 AM EST Viral Lee at bedside to assist with . [facility]11-30-2022 Obstetrics Note* Note - Minal Lee - 08/12/2022 9:20 AM EST This note was copied from a baby's chart. Baby asleep, swaddled in crib. Patient stated Nursing going well. I just have occasional trouble with latch, but we keep trying until he latches on Prior feeds = cradle, football, cross cradle holds. Positional Demonstration with model baby- cross cradle/football holds for deep latch. Baby showing hunger cues. Placed skin to skin. Latch assistance, right side, cross cradle hold =immediate, deep latch. Active suckling, minimal stimulation to stay on task=12 minutes, self released,asleep. Round nipple shaft, no damage. Eliminations OVER target for age. This IBCLC changed large stool/ void prior to latch. Education: Skin to skin, normal feeding patterns,breast prep, therapeutic breast massage, breast compression,waking techniques, feed on demand 8-12x's/24 hours,elimination monitoring, , pump use/cleaning/ frequency, breastmilk storage, handling, nipple care, positioning, Bottle/ pacifier use ,diet, deep latch/breast shaping, stomach growth, volume increase. PLAN:Continue to Feed on demand, skin to skin, monitor eliminations [facility]11-30-2022 Note* Plan of Care - Laureen Garza RN - 08/12/2022 9:00 AM EST Problem: Skin Integrity Impairment, Risk/Actual (Adult) Goal: Identify Related Risk Factors and Signs and Symptoms Description: Related risk factors and signs and symptoms are identified upon initiation of Human Response Clinical Practice Guideline (CPG) Outcome: Ongoing Goal: Skin Integrity/Wound Healing Description: Patient will demonstrate the desired outcomes by discharge/transition of care. Outcome: Ongoing Problem: Patient Care Overview Goal: Plan of Care Review Outcome: Ongoing Goal: Individualization & Mutuality Outcome: Ongoing Goal: Discharge Needs Assessment Outcome: Ongoing Goal: Interdisciplinary Rounds/Family Conf Outcome: Ongoing Problem: (Vaginal Delivery) (Adult,Obstetrics,Pediatric) Goal: Signs and Symptoms of Listed Potential Problems Will be Absent, Minimized or Managed () Description: Signs and symptoms of listed potential problems will be absent, minimized or managed by discharge/transition of care (reference (Vaginal Delivery) (Adult,Obstetrics,Pediatric)CPG). Outcome: Ongoing Problem: (Adult,Obstetrics,Pediatric) Goal: Signs and Symptoms of Listed Potential Problems Will be Absent, Minimized or Managed () Description: Signs and symptoms of listed potential problems will be absent, minimized or managed by discharge/transition of care (reference (Adult,Obstetrics,Pediatric) CPG). Outcome: Ongoing [facility] [[email or web address]] [facility] [id number] Obstetrics Note* Note - Laureen Garza RN - 08/12/2022 8:30 AM EST Mother resting in bed holding infant. Assessments done at this time. IV removed. No distress noted in mother or infant. Mother states she is going to breastfeed infant and feels comfortable latching . Fresh water provided. Call light in reach. [facility] [[email or web address]] [facility] [id number] Obstetrics Note* Note - Olivia Blanco RN - 08/12/2022 4:54 AM EST This note was copied from a baby's chart. Assessment and vitals obtained on infant and mother. Infant being held skin to skin with mother. Infant shows no signs of distress. Tone: Extremities full flexed; edwards recoil Position: Nares and mouth uncovered and visible; neck midline. Mother denies any needs. Call light within mother's reach. [facility] [[email or web address]] [facility] [id number] Obstetrics Note* Note - Olivia Blanco RN - 08/12/2022 1:12 AM EST This note was copied from a baby's chart. Blood sugar obtained on infant. Infant voided and diaper changed by father. Mother going to feed . Informed mother to let this nurse know if she needed any help with . Infant showsno signs of distress. Mother denies any needs. Call light within mother's reach. [facility] [[email or web address]] [facility] [id number] Obstetrics Note* Note - Olivia Blanco RN - 08/11/2022 11:40 PM EST This note was copied from a baby's chart. New blood sugar obtained on . Infant's blood sugar 47. Will continue to monitor. Assessment and vitals obtained on infant and mother. lying comfortably in open crib. shows no signs of distress. Mother denies any needs. Call light within mother's reach. [facility] [[email or web address]] [facility] [id number] Obstetrics Note* Note - Olivia Blanco RN - 08/11/2022 10:50 PM EST This note was copied from a baby's chart. Infant's blood sugar 26 before . Glucose gel given. Mother attempted to breastfeed butinfant would not latch. Mother had colostrum in the fridge which she had hand expressed earlier. Showed parents how to syringe feed infant. skin to skin while parents are syringefeeding . Will repeat blood sugar 30 minutes after the completion of the feed. [facility] [[email or web address]] [facility] [id number] Obstetrics Note* Note - Olivia Blanco RN - 08/11/2022 8:30 PM EST This note was copied from a baby's chart. and mother moved over to room #204. placed on far side of room away from open doorway. swaddled and lying in open crib. shows no signs of distress. Mother denies any needs. Call light within mother's reach. [facility]11-29-2022 Obstetrics Note* Note - Olivia Blanco RN - 08/11/2022 7:00 PM EST This note was copied from a baby's chart. Report received from Shivam Savage RN. [facility]11-29-2022 Labor and delivery summary note* L&D Delivery Note - Lemuel Lee MD - 08/11/2022 6:03 PM EST Delivery Summary Patient progressed to complete/ complete with epidural and was allowed to push vertex progressed to a +2 to +3 station, occiput anterior De Souza catheter was removed Repetitive deep variable decelerations with good recovery over last 10-12 contractions Shashank Almeida forceps applied in straight occiput anterior position Moderate to strong pull Low forceps vaginal delivery over midline episiotomy Oral nasopharynx suctioned on the perineum Vigorous male infant to maternal abdomen doing well No vaginal or cervical lacerations Second degree perineal laceration repair with 3-0 Vicryl suture Mother and infant doing well See below for weight and Apgars [facility] [[id number]] Delivery () Delivery date/time: 08/11/2022 5:36 PM Sex: Male Delivery type: Vaginal, Forceps Details: Labor Events Rupture date/time: 08/11/2022 0616 Rupture type: artificial rupture of membranes Fluid color: clear Fluid Odor: none Labor complications: None Delivery (Maternal) Episiotomy: Median Indications for episiotomy: Instrumented Delivery, Expedited Delivery for Well [facility] Perineal lacerations: 2nd Repaired?: Yes Number of repair packets: 1 Vaginal delivery est. blood loss (mL): 300 Surgical or additional est. blood loss (mL): 0 Edit in Flowsheets Combined est. blood loss (mL): 300 QBL Calculators: Surgical QBL Vaginal QBL Sponge Count Final count verified by RN: Yes Final count verified by MD: Yes Needle Count Presentation Presentation: cephalic, vertex Position: Occiput Anterior Anesthesia Method: Epidural Delivery Providers Attending physician for delivery: Lemuel Lee MD Resuscitation Placenta Removal: Expressed Appearance: Intact Placenta for examination?: No Cord Vessels: 3 Vessels Complications: None Delayed cord clamping?: No Cord blood disposition: Lab, Refrigerator Gases sent?: No Stem cell collection (by provider): No [place] Measurements Apgars Living status: Apgars: 1 min.: 5 min.: 10 min.: 15 min.: 20 min.: Skin color: Heart rate: Reflex irritability: Muscle tone: Respiratory effort: Total: Shoulder Dystocia Shoulder dystocia present?: No [facility]11-29-2022 Note* Nursing Notes - Citlaly Savage RN - 08/11/2022 5:[address] Lee at bedside [facility]11-29-2022 Note* Nursing Notes - Citlaly Savage RN - 08/11/2022 4:[address] Lee calls at this time requesting update on patient. Updated Dr. Lee that patient is complete. Dr. Lee instructs this RN to continue practice pushing with patient. [facility]11-29-2022 Note* Nursing Notes - Citlaly Savage RN - 08/11/2022 4:[address] Lee calls back at this time. This RN informs Dr. Lee that patient had a prolonger variable at 1536 and that this RN performed an SVE at 1540. This RN informs Dr. Lee that patient was having increased pressure at 1555 and that this RN performed another SVE and that patient is 9.[address] Lee instructs this RN to restart the pitocin at 8 and to perform vaginal check and practice push to see where baby moves. [facility]11-29-2022 Note* Nursing Notes - Nannette Cardoza RN - 08/11/2022 2:[address] Lee calls back and gives order to restart pitocin at 14 in 10-15 minutes. [facility]11-29-2022 Note* Nursing Notes - Nannette Cardoza RN - 08/11/2022 2:43 PM EST Call placed to Dr. Lee in regards to prolong decel and interventions such as shutting off pitocin, position changes, vag check, oxygen and LR bolus. Will review strip and call back. [facility]11-29-2022 Note* Nursing Notes - Citlaly Savage RN - 08/11/2022 1:[address] Lee of patient's recent SVE. Dr. Lee instructs to check patient again in aboutan hour. [facility] [[email or web address]] [employer] [id number] Note* Nursing Notes - Citlaly Savage RN - 08/11/2022 1:[address] Lee at bedside [facility] [[email or web address]] [facility]* Nursing Notes - Citlaly Savage RN - 08/11/2022 12:42 PM EST Raven MANSFIELD at bedside for epidural placement [facility]11-29-2022 Note* Nursing Notes - Citlaly Savage RN - 08/11/2022 12:07 PM EST Assessment completed at this time, refer to flow sheet. Patient rating pain a 7/10 and requesting nubain at this time. Patient denies current needs. [facility]11-29-2022 Note* Nursing Notes - Citlaly Savage RN - 08/11/2022 9:[address] Lee at bedside [facility]11-29-2022 Note* Nursing Notes - Citlaly Savage RN - 08/11/2022 7:00 AM EST Assessment completed at this time, refer to flow sheet. Patient in bed, no distress noted. Patient denies current pain. Plan of care reviewed with patient, patient denies any questions at this time. Call light within reach. [facility]11-29-2022 History and physical note* Lemuel Lee MD - 08/11/2022 6:30 AM EST Chief Complaint: 1. Intrauterine at 38 weeks 5 days 2. Gestational diabetes 3. Favorable cervix at term History of Present Illness: Jewels Petty is a 27-year-old female 1 para 0 who is now 38 weeks and 5 days estimated gestational age. The patient's care has been per Dr. Lee, Dr. Walter, and staff and has been complicated by gestational diabetes. She has been size equal to dates and normotensive throughout her . Been followed with monthly ultrasounds as well as serial nonstress tests. These have been reassuring. Patient now with favorable cervix at term. Her blood sugars have been well controlled without medications. Risks and benefits to induction were discussed and the patient desires toproceed. The patient's blood type is A+, she is rubella titer immune, hepatitis B surface is negative, RPR nonreactive. She is varicella immune And group B beta strep negative. Problem List: Patient Active Problem List Diagnosis Insulin resistance Polycystic ovaries Vitamin D deficiency Abnormal maternal glucose tolerance, antepartum Diet controlled gestational diabetes mellitus (GDM) in third trimester Encounter for induction of labor Medical History: Past Medical History: Diagnosis Date PCOS (polycystic ovarian syndrome) Surgical History: Past Surgical History: Procedure Laterality Date ARTHROSCOPY KNEE W/ MENISCECTOMY left knee EXCISION GANGLION CYST WRIST right wrist Allergies: No Known Allergies Medications: Vitamins and vitamin D and folic acid OB History Para Term AB Living 1 0 0 0 0 0 SAB IAB Ectopic Molar Multiple Live Births 0 0 0 0 0 0 # Outcome Date GA Lbr Hany/2nd Weight Sex Delivery Anes PTL Lv 1 Current Family History Problem Relation Age of Onset No known problems Mother Hypertension Father Diabetes Maternal Grandfather Diabetes Paternal Grandmother Social History Tobacco Use Smoking status: Never Smokeless tobacco: Never Vaping Use Vaping Use: Never used Substance Use Topics Alcohol use: Not Currently Drug use: Never Review of Systems Constitutional: Negative. Negative for chills, fatigue and fever. Signs and symptoms of term HENT: Negative for congestion, facial swelling, rhinorrhea, sore throat and trouble swallowing. Eyes: Negative for discharge, redness and visual disturbance. Respiratory: Negative for cough, chest tightness, shortness of breath and wheezing. Cardiovascular: Negative for chest pain and palpitations. Gastrointestinal: Abdomen is gravid of approximate estimated gestational age. Endocrine: Negative. Genitourinary: Negative for difficulty urinating, dysuria, flank pain, genital sores and urgency. Musculoskeletal: Negative for arthralgias, myalgias and neck stiffness. Skin: Negative for color change, pallor and rash. Allergic/Immunologic: Negative. Neurological: Negative for dizziness, seizures, facial asymmetry, speech difficulty, weakness and numbness. Hematological: Negative. Psychiatric/Behavioral: Negative for behavioral problems, confusion and hallucinations. Temp: [97.1 F (36.2 C)-97.4 F (36.3 C)] 97.4 F (36.3 C) Pulse (Heart Rate): [74-96] 81 Resp Rate: [16-17] 16 BP: (123-128)/(83-91) 123/83 O2 Sat (%): [95 %-97 %] 95 % Weight: [87.6 kg (193 lb 2 oz)] 87.6 kg (193 lb 2 oz) Physical Exam HENT: Head: Normocephalic and atraumatic. Eyes: Extraocular Movements: EOM normal. Pupils: Pupils are equal, round, and reactive to light. Cardiovascular: Rate and Rhythm: Normal rate and regular rhythm. Heart sounds: No murmur heard. No friction rub. No gallop. Pulmonary: Effort: Pulmonary effort is normal. Breath sounds: Normal breath sounds. Abdominal: General: Bowel sounds are normal. There is no distension. Palpations: Abdomen is soft. Tenderness: There is no abdominal tenderness. Comments: Abdomen is soft and gravid of stated gestational age Genitourinary: Comments: Cervix: 50%/1.5 cm/-3 station Cervix is posterior position Artificial rupture membranes performed and clear fluid noted scalp electrode applied Musculoskeletal: General: Normal range of motion. Skin: General: Skin is warm and dry. Neurological: Mental Status: She is alert and oriented to person, place, and time. External monitor: Baseline reassuring with good zagu-je-ixfw variability, accelerations noted, no decelerations, contractions every 3-4 minutes. Category 1 Assessment and Plan: 1. Intrauterine at 38 weeks 5 days 2. Favorable cervix at term 3. Gestational diabetes Plan: We will proceed with induction. Risks and benefits discussed and the patient desires to proceed. [facility] [[email or web address]] [employer]11-29-2022 Note* Certification - Lemuel Lee MD - 08/11/2022 6:30 AM EST I certify that this patient requires inpatient services at this time. I anticipate the expected length of stay will include at least two midnights. Current treatment plan includes induction and delivery. Plans for post hospitalization care will be discharge to home. [employer]11-29-2022 History and physical note* Lemuel Lee MD - 08/11/2022 6:30 AM EST Chief Complaint: 1. Intrauterine at 38 weeks 5 days 2. Gestational diabetes 3. Favorable cervix at term History of Present Illness: Jewels Petty is a 27-year-old female 1 para 0 who is now 38 weeks and 5 days estimated gestational age. The patient's care has been per Dr. Lee, Dr. Walter, and staff and has been complicated by gestational diabetes. She has been size equal to dates and normotensive throughout her . Been followed with monthly ultrasounds as well as serial nonstress tests. These have been reassuring. Patient now with favorable cervix at term. Her blood sugars have been well controlled without medications. Risks and benefits to induction were discussed and the patient desires toproceed. The patient's blood type is A+, she is rubella titer immune, hepatitis B surface is negative, RPR nonreactive. She is varicella immune And group B beta strep negative. Problem List: Patient Active Problem List Diagnosis Insulin resistance Polycystic ovaries Vitamin D deficiency Abnormal maternal glucose tolerance, antepartum Diet controlled gestational diabetes mellitus (GDM) in third trimester Encounter for induction of labor Medical History: Past Medical History: Diagnosis Date PCOS (polycystic ovarian syndrome) Surgical History: Past Surgical History: Procedure Laterality Date ARTHROSCOPY KNEE W/ MENISCECTOMY left knee EXCISION GANGLION CYST WRIST right wrist Allergies: No Known Allergies Medications: Vitamins and vitamin D and folic acid OB History Para Term AB Living 1 0 0 0 0 0 SAB IAB Ectopic Molar Multiple Live Births 0 0 0 0 0 0 # Outcome Date GA Lbr Hany/2nd Weight Sex Delivery Anes PTL Lv 1 Current Family History Problem Relation Age of Onset No known problems Mother Hypertension Father Diabetes Maternal Grandfather Diabetes Paternal Grandmother Social History Tobacco Use Smoking status: Never Smokeless tobacco: Never Vaping Use Vaping Use: Never used Substance Use Topics Alcohol use: Not Currently Drug use: Never Review of Systems Constitutional: Negative. Negative for chills, fatigue and fever. Signs and symptoms of term HENT: Negative for congestion, facial swelling, rhinorrhea, sore throat and trouble swallowing. Eyes: Negative for discharge, redness and visual disturbance. Respiratory: Negative for cough, chest tightness, shortness of breath and wheezing. Cardiovascular: Negative for chest pain and palpitations. Gastrointestinal: Abdomen is gravid of approximate estimated gestational age. Endocrine: Negative. Genitourinary: Negative for difficulty urinating, dysuria, flank pain, genital sores and urgency. Musculoskeletal: Negative for arthralgias, myalgias and neck stiffness. Skin: Negative for color change, pallor and rash. Allergic/Immunologic: Negative. Neurological: Negative for dizziness, seizures, facial asymmetry, speech difficulty, weakness and numbness. Hematological: Negative. Psychiatric/Behavioral: Negative for behavioral problems, confusion and hallucinations. Temp: [97.1 F (36.2 C)-97.4 F (36.3 C)] 97.4 F (36.3 C) Pulse (Heart Rate): [74-96] 81 Resp Rate: [16-17] 16 BP: (123-128)/(83-91) 123/83 O2 Sat (%): [95 %-97 %] 95 % Weight: [87.6 kg (193 lb 2 oz)] 87.6 kg (193 lb 2 oz) Physical Exam HENT: Head: Normocephalic and atraumatic. Eyes: Extraocular Movements: EOM normal. Pupils: Pupils are equal, round, and reactive to light. Cardiovascular: Rate and Rhythm: Normal rate and regular rhythm. Heart sounds: No murmur heard. No friction rub. No gallop. Pulmonary: Effort: Pulmonary effort is normal. Breath sounds: Normal breath sounds. Abdominal: General: Bowel sounds are normal. There is no distension. Palpations: Abdomen is soft. Tenderness: There is no abdominal tenderness. Comments: Abdomen is soft and gravid of stated gestational age Genitourinary: Comments: Cervix: 50%/1.5 cm/-3 station Cervix is posterior position Artificial rupture membranes performed and clear fluid noted scalp electrode applied Musculoskeletal: General: Normal range of motion. Skin: General: Skin is warm and dry. Neurological: Mental Status: She is alert and oriented to person, place, and time. External monitor: Baseline reassuring with good ctyy-ps-omxs variability, accelerations noted, no decelerations, contractions every 3-4 minutes. Category 1 Assessment and Plan: 1. Intrauterine at 38 weeks 5 days 2. Favorable cervix at term 3. Gestational diabetes Plan: We will proceed with induction. Risks and benefits discussed and the patient desires to proceed. [facility]* Nursing Notes - Anusha Voss - 08/11/2022 6:[address] Lee at bedside to break water, perform a cervical exam, and place FSE. [facility]11-29-2022 Note* Nursing Notes - Margot Arana RN - 08/11/2022 5:[address] Lee is OK with 0.9% NS for continuous IV fluids. [facility]11-29-2022 Note* Nursing Notes - Anusha Voss - 08/11/2022 5:00 AM EST Assessment completed at this time. Pt resting comfortably in bed with equal chest expansion and unlabored breathing. Call light within reach. [facility]11-29-2022 Note* Nursing Notes - Margot Arana RN - 08/11/2022 3:55 AM EST Urine and covid collected. Pt oriented to room. [facility] [[email or web address]] [facility]* Nursing Notes - Margot Arana RN - 08/11/2022 3:45 AM EST Patient ambulates onto unit. Height and weight obtained. Patient ambulates to room 213. [facility] [[email or web address]] [facility] History of Present illness Narrative* Ariella Nowak LPN - 08/05/2022 7:40 AM EST 37.6 here for CAITIE with NST for GDM. Reports good FM. Denies any concerns. GBBS negative. * Lemuel Lee MD - 08/05/2022 7:40 AM EST Patient doing well. Describes good movement. 1. GDM; Blood sugars well controlled. NST reactive today. Last HgbA1C 5.3 on 07/17/22. U/S c/w 40%. Induction scheduled for 08/11/22. [facility] NoteLemuel Lee MD 08/05/2022 8:14 AM Procedure: Non-Stress Test Indication: Diabetes in Findings: NST: Reactive with GBTBV, + Accelerations, No decelerations. No regular contractions. Cat 1.[facility] Procedure note* Lemuel Lee MD - 08/05/2022 7:40 AM ESTAssociated Order(s): WA NON-STRESS TEST Pre-Procedure Diagnose(s): Diet controlled gestational diabetes mellitus (GDM) in third trimester Post-Procedure Diagnose(s): Diet controlled gestational diabetes mellitus (GDM) in third trimester Procedure: Non-Stress Test Indication: Diabetes in Findings: NST: Reactive with GBTBV, + Accelerations, No decelerations. No regular contractions. Cat1. [facility] [id number] Procedure note* Lemuel Lee MD - 08/05/2022 7:40 AM ESTAssociated Order(s): WA NON-STRESS TEST Pre-Procedure Diagnose(s): Diet controlled gestational diabetes mellitus (GDM) in third trimester Post-Procedure Diagnose(s): Diet controlled gestational diabetes mellitus (GDM) in third trimester Procedure: Non-Stress Test Indication: Diabetes in Findings: NST: Reactive with GBTBV, + Accelerations, No decelerations. No regular contractions. Cat1. documented in this [facility]11-17-2022 History of Present illness Narrative* Ariella Nowak LPN - 07/30/2022 3:10 PM EST 37.0 here for CAITIE with NST for GDM. Denies any current concerns. A1C on 07/17/22: 5.3. GBBS negative. * Lemuel Lee MD - 07/30/2022 3:10 PM EST Patient doing well. GFM 1. GDM; Blood sugars well controlled. NST reactive today. Last HgbA1C 5.3 on 07/17/22. U/S c/w 40%. Anticipate likely induction on week of 08/10/22. documented in this [facility]11-17-2022 Abiola Lee MD 07/30/2022 3:57 PM Procedure: Non-Stress Test Indication: Diabetes in Findings: NST: Reactive with GBTBV, + Accelerations, No decelerations. No regular contractions. Cat 1. [facility]-17[facility] Procedure note* Lemuel Lee MD - 07/30/2022 3:10 PM ESTAssociated Order(s): WA NON-STRESS TEST Pre-Procedure Diagnose(s): Diet controlled gestational diabetes mellitus (GDM) in third trimester Post-Procedure Diagnose(s): Diet controlled gestational diabetes mellitus (GDM) in third trimester Procedure: Non-Stress Test Indication: Diabetes in Findings: NST: Reactive with GBTBV, + Accelerations, No decelerations. No regular contractions. Cat1. [facility]-17-[facility] Procedure note* Lemuel Lee MD - 07/30/2022 3:10 PM ESTAssociated Order(s): WA NON-STRESS TEST Pre-Procedure Diagnose(s): Diet controlled gestational diabetes mellitus (GDM) in third trimester Post-Procedure Diagnose(s): Diet controlled gestational diabetes mellitus (GDM) in third trimester Procedure: Non-Stress Test Indication: Diabetes in Findings: NST: Reactive with GBTBV, + Accelerations, No decelerations. No regular contractions. Cat1. documented in this [facility]11-10-2022 History of Present illness Narrative* Ariella Nowak LPN - 07/23/2022 9:20 AM EST 36.0 here for CAITIE with NST for GDM. Reports good FM. Denies any VB, LOF, or contractions. GBBS negative on 07/17/22 . * Lemuel Lee MD - 07/23/2022 9:20 AM EST Patient doing well. No concerns. GBBS negative. 1. GDM: Patient on no meds. Blood sugars well controlled. HgbA1C on 07/17 5.3. Ultrasound on 07/17/22c/w 40%, with good S/D ratio and FAZAL. NST reactive today. documented in this [facility]11-10-2022 Abiola Lee MD 07/23/2022 9:33 AM Procedure: Non-Stress Test Indication: Diabetes in Findings: NST: Reactive with GBTBV, + Accelerations, No decelerations. No regular contractions. Cat 1.[facility] note* Lemuel Lee MD - 07/23/2022 9:20 AM ESTAssociated Order(s): WA NON-STRESS TEST Pre-Procedure Diagnose(s): Gestational diabetes mellitus (GDM) affecting third Post-Procedure Diagnose(s): Gestational diabetes mellitus (GDM) affecting third Procedure: Non-Stress Test Indication: Diabetes in Findings: NST: Reactive with GBTBV, + Accelerations, No decelerations. No regular contractions. Cat1. [facility]-10[facility] Procedure note* Lemuel Lee MD - 07/23/2022 9:20 AM ESTAssociated Order(s): WA NON-STRESS TEST Pre-Procedure Diagnose(s): Gestational diabetes mellitus (GDM) affecting third Post-Procedure Diagnose(s): Gestational diabetes mellitus (GDM) affecting third Procedure: Non-Stress Test Indication: Diabetes in Findings: NST: Reactive with GBTBV, + Accelerations, No decelerations. No regular contractions. Cat1. documented [facility]11-[facility] History of Present illness Narrative* Татьяна Brooke, MED - 07/21/2022 7:31 AM EST Images from the original note were not included. OUTPATIENT WELL WOMAN PROGRESS NOTE Subjective: Drake Petty is a 27 y.o. female and is here for a comprehensive physical exam. The patientreports no problems. She is and due in 1 month. Do you take any herbs or supplements that were not prescribed by a doctor? no Are you taking calcium supplements? yes Domestic violence: none Depression Screen: see below Diet: healthy Exercise: daily Immunizations: refuses at this time Last eye exam: Up to date Last dental visit: Up to date Last colonoscopy if >50y: n/a Any high risk behavior: none Tobacco use or exposure: none Alcohol use: not at this time HIV: neg HepC: neg Females: Last Mammogram: N/A Last Pap/HPV: at [facility] Last Dexa >65: N/A Hx of falls? 0 : 1 Para: 0 The following portions of the patient's history were reviewed and updated as appropriate: allergies, current medications, past family history, past medical history, past social history, past surgicalhistory and problem list. Past Medical History: Diagnosis Date ADHD Gestational diabetes PCOS (polycystic ovarian syndrome) 10/12/2019 Past Surgical History: Procedure Laterality Date GANGLION CYST EXCISION Right KNEE SURGERY 60 % of Meniscus removed left knee Social History Tobacco Use Smoking status: Never Smokeless tobacco: Never Vaping Use Vaping Use: Never used Substance Use Topics Alcohol use: Not Currently Drug use: No Family History Problem Relation Age of Onset Rosacea Mother Hypertension Father Obesity Maternal Grandmother Obesity Maternal Grandfather Diabetes Maternal Grandfather Diabetes Paternal Grandmother No Known Allergies Review of Systems Do you have pain that bothers you in your daily life? no Constitutional: negative for chills, malaise and sweats Eyes: negative for irritation, redness and visual disturbance Ears, nose, mouth, throat, and face: negative for earaches, snoring and tinnitus Respiratory: negative for cough, hemoptysis and wheezing Cardiovascular: negative for chest pain, dyspnea, fatigue and palpitations Gastrointestinal: negative for abdominal pain, constipation, diarrhea, nausea and vomiting Genitourinary:negative for dysuria, hematuria and urinary incontinence Integument/breast: negative for breast lump, breast tenderness, dryness, nipple discharge and skin color change Musculoskeletal:negative for arthralgias, myalgias and stiff joints Neurological: negative for dizziness, headaches, seizures and tremors Behavioral/Psych: negative for anxiety and depression Endocrine: negative for diabetic symptoms including blurry vision, polydipsia and polyuria Objective: BP Readings from Last 3 Encounters: 07/21/22 120/84 06/17/22 120/76 01/30/20 120/70 Wt Readings from Last 3 Encounters: 07/21/22 86 kg (189 lb 11.2 oz) 01/30/20 77.5 kg (170 lb 12.8 oz) 10/12/19 81.7 kg (180 lb 3.2 oz) BP 120/84 (BP Location: Left arm, Patient Position: Sitting, BP Cuff Size: Adult) Pulse 80 Temp98.2 F (36.8 C) (Oral) Resp 16 Ht 5' 4 Wt 86 kg (189 lb 11.2 oz) LMP 11/09/2021 (Exact Date) BMI 32.56 kg/m General Appearance: Alert, cooperative, no distress, appears stated age Head: Normocephalic, without obvious abnormality, atraumatic Eyes: PERRL, conjunctiva/corneas clear, EOM's intact, fundi benign, both eyes Ears: Normal TM's and external ear canals, both ears Nose: Nares normal, septum midline, mucosa normal, no drainage or sinus tenderness Neck: Supple, symmetrical, trachea midline, no adenopathy; thyroid: no enlargement/tenderness/nodules; no carotid bruit or JVD Chest Wall: No tenderness or deformity Heart: Regular rate and rhythm, S1 and S2 normal, no murmur, rub or gallop Abdomen: Soft, non-tender, bowel sounds active all four quadrants, no masses, no organomegaly Extremities: Extremities normal, atraumatic, no cyanosis or edema Pulses: 2+ and symmetric all extremities Skin: Skin color, texture, turgor normal, no rashes or lesions Lymph nodes: Cervical, supraclavicular, and axillary nodes normal Neurologic: CNII-XII intact, normal strength, sensation and reflexes throughout Assessment: Healthy female exam. Plan: 1. Patient Counseling: --Nutrition: Stressed importance of moderation in sodium/caffeine intake, saturated fat and cholesterol, caloric balance, sufficient intake of fresh fruits, vegetables, fiber, calcium, iron, and 1 mgof folate supplement per day (for females capable of ). --Exercise: Stressed the importance of regular exercise. --Substance Abuse: Discussed cessation/primary prevention of tobacco, alcohol, or other drug use --Sexuality: Discussed sexually transmitted diseases, partner selection, use of condoms, avoidance of unintended and contraceptive alternatives. --Dental health: Discussed importance of regular dental visits. --Immunizations reviewed. --Discussed benefits of screening mammograms, pap smears, and colonoscopy. 2. Discussed the patient's BMI with her. The BMI is in the acceptable range 3. Follow up in one year Problem List Items Addressed This Visit None Visit Diagnoses Preventative health care - Primary Continue the same. Will see after baby is born Electronically signed by Татьяна Brooke CWP * Татьяна Brooke CNP - 07/21/2022 7:31 AM EST Depression Screening 09/25/2019 07/21/2022 Little interest or pleasure in doing things 1 0 Feeling down, depressed, or hopeless 0 0 PHQ-2 Total Score 1 0 Trouble falling or staying asleep, or sleeping too much 2 - Feeling tired or having little energy 2 - Poor appetite or overeating 1 - Feeling bad about yourself - or that you are a failure or have let yourself or your family down 0 - Trouble concentrating on things, such as reading the newspaper or watching television 0 - Moving or speaking so slowly that other people could have noticed. Or the opposite - being so fidgety or restless that you have been moving around a lot more than usual 0 - Thoughts that you would be better off , or of hurting yourself in some way 0 - PHQ-9 Total Score 6 - If you checked off any problems, how difficult have these problems made it for you to do your work,take care of things at home, or get along with other people? Somewhat difficult - documented in this [id number] History of Present illness Narrative* Ariella Nowak LPN - 07/17/2022 11:20 AM EDT 35.1 here for CAITIE with growth US, NST, and A1C for GDM. Reports good FM. Denies any VB, LOF, or contractions. Pt does report continued RUQ pain/discomfort which is aching in nature but will occasionally become sharp. HELLP labs WNL on Wednesday. * Lauren Perez APRN-MED - 07/17/2022 11:20 AM EDT Pt continues to c/o RUQ pain that has been ongoing x 6 weeks. 1. GDM diet controlled - Blood sugar log well controlled on no meds, a couple outliers of 145, 138.Growth US today 2530g (5lb9oz) 39.9%, normal FAZAL, normal S/D ratio. NST today reactive, some irregular contractions noted, pt not feeling any contractions. HgbA1c drawn today. Discussed irregular contractions that pt is not feeling nor can this provider feel tightening of abdomen and cervical checknot quite fingertip. Pt advised to hydrate per Dr. Walter, nothing further needed at this time given cervical exam. Educated pt on stanley valderrama vs. Active labor and when to call office. Pt verbalizes understanding. 2. GBBS done today. 3. RUQ pain x 6 weeks daily, describes as ache - saw Dr. Walter 07/13/2022, HELLP labs 07/13/[address] Walter believes this to be muscular. [facility]22 NoteSNATASHA Alicea 07/17/2022 12:21 PM Procedure: Non-Stress Test Indication: Diabetes in Findings: NST: Reactive with GBTBV, + Accelerations, No decelerations. No regular contractions. Cat 1. [facility]11-04-[facility] Procedure note* NATASHA Garcia - 07/17/2022 11:20 AM EDTAssociated Order(s): WA NON-STRESS TEST Procedure(s): WA NON-STRESS TEST Pre-Procedure Diagnose(s): Supervision of high risk in third trimester; Diet controlled gestational diabetes mellitus (GDM) in third trimester Post-Procedure Diagnose(s): Supervision of high risk in third trimester; Diet controlled gestational diabetes mellitus (GDM) in third trimester Procedure: Non-Stress Test Indication: Diabetes in Findings: NST: Reactive with GBTBV, + Accelerations, No decelerations. No regular contractions. Cat1. [facility]11-04-[facility] Procedure note* NATASHA Garcia - 07/17/2022 11:20 AM EDTAssociated Order(s): WA NON-STRESS TEST Procedure(s): WA NON-STRESS TEST Pre-Procedure Diagnose(s): Supervision of high risk in third trimester; Diet controlled gestational diabetes mellitus (GDM) in third trimester Post-Procedure Diagnose(s): Supervision of high risk in third trimester; Diet controlled gestational diabetes mellitus (GDM) in third trimester Procedure: Non-Stress Test Indication: Diabetes in Findings: NST: Reactive with GBTBV, + Accelerations, No decelerations. No regular contractions. Cat1. [facility]10-[facility] History of Present illness Narrative* Shavonne Ba LPN - 07/13/2022 1:00 PM EDT 34.4, OB TX., Patient is 34.4 weeks . Per My Chart message she has right sided rib and under breast pain. Patient was advised she needs seen for an appointment today. OB Tx scheduled per [place]. * Josse Walter MD - 07/13/2022 1:00 PM EDT [facility] 27 y.o. at 34w4d 1. gDM 2. BMI 33 MsCassandra Petty reports worsening right sided pain. She describes it as a dull ache present through the day that is sometimes sharp. The pain has been present about 6 weeks, but has been getting worse. She has not tried anything to make it better. She has not noticed any correlation to meals. She denies headache, changes in vision, chestpain or shortness of breath, or new swelling. She denies fevers, chills, cough, shortness of breath, nausea, vomiting, diarrhea, constipation, or dysuria. Today: HELLP labs drawn. If normal patient can start flexeril. - Keep scheduled appointment detailed below Future Appointments Date Time Provider Department Center 07/17/2022 11:00 AM [facility] [id number] OB ULTRASOUND, AVG [id number] [facility] 07/17/2022 11:20 AM Lauren Perez, WEB ANALYTICS DEVELOPER-DECORATOR [employer] [id number] [facility] documented in this [facility]10-27-2022 History of Present illness Narrative* Clara Gorman RN - 07/09/2022 9:00 AM EDT Edema of fingers and ankles reported. NST done for GDM. * Lemuel Lee MD - 07/09/2022 9:00 AM EDT Patient doing well. NO concerns. Good movement 1. GDM: Blood sugars remain well controlled on no meds. HgbA1C and OB ultrasound with next visit. NST reactive today. documented in this [facility]10-27-2022 NoteLemuel Lee MD 07/09/2022 9:06 AM Procedure: Non-Stress Test Indication: Diabetes in Findings: NST: Reactive with GBTBV, + Accelerations, No decelerations. No regular contractions. Cat 1. [facility] Procedure note* Lemuel Lee MD - 07/09/2022 9:00 AM EDTAssociated Order(s): WA NON-STRESS TEST Pre-Procedure Diagnose(s): Diet controlled gestational diabetes mellitus (GDM) in third trimester Post-Procedure Diagnose(s): Diet controlled gestational diabetes mellitus (GDM) in third trimester Procedure: Non-Stress Test Indication: Diabetes in Findings: NST: Reactive with GBTBV, + Accelerations, No decelerations. No regular contractions. Cat1. [facility] Procedure note* Lemuel Lee MD - 07/09/2022 9:00 AM EDTAssociated Order(s): WA NON-STRESS TEST Pre-Procedure Diagnose(s): Diet controlled gestational diabetes mellitus (GDM) in third trimester Post-Procedure Diagnose(s): Diet controlled gestational diabetes mellitus (GDM) in third trimester Procedure: Non-Stress Test Indication: Diabetes in Findings: NST: Reactive with GBTBV, + Accelerations, No decelerations. No regular contractions. Cat1. documented in this [facility]10-17-2022 History of Present illness Narrative* Clara Gorman RN - 06/29/2022 9:30 AM EDT NST done today for GDM. * Lemuel Lee MD - 06/29/2022 9:30 AM EDT Patient doing well. No concerns. 1. GDM: Blood sugars well controlled on no meds. Next HgbA1C and ultrasound at approx 35 weeks. NSTreactive. documented in this [facility]10-17-2022 NoteLemuel Lee MD 06/29/2022 9:59 AM Procedure: Non-Stress Test Indication: Diabetes in Findings: NST: Reactive with GBTBV, + Accelerations, No decelerations. No regular contractions. Cat 1.[facility] Procedure note* Lemuel Lee MD - 06/29/2022 9:30 AM EDTAssociated Order(s): WA NON-STRESS TEST Pre-Procedure Diagnose(s): Gestational diabetes mellitus (GDM) affecting third Post-Procedure Diagnose(s): Gestational diabetes mellitus (GDM) affecting third Procedure: Non-Stress Test Indication: Diabetes in Findings: NST: Reactive with GBTBV, + Accelerations, No decelerations. No regular contractions. Cat1. [facility] Procedure note* Lemuel Lee MD - 06/29/2022 9:30 AM EDTAssociated Order(s): WA NON-STRESS TEST Pre-Procedure Diagnose(s): Gestational diabetes mellitus (GDM) affecting third Post-Procedure Diagnose(s): Gestational diabetes mellitus (GDM) affecting third Procedure: Non-Stress Test Indication: Diabetes in Findings: NST: Reactive with GBTBV, + Accelerations, No decelerations. No regular contractions. Cat1. documented in this [facility]10-13-2022 History of Present illness Narrative* Clara Gorman RN - 06/25/2022 9:30 AM EDT NST done for GDM. * Lemuel Lee MD - 06/25/2022 9:30 AM EDT Patient doing well. No concerns 1. GDM: Blood sugars well controlled on no meds. Next HgbA1C and ultrasound at approx 35 weeks. NSTreactive. documented in this [facility]10-13-2022 NoteLemuel Lee MD 06/25/2022 9:55 AM Procedure: Non-Stress Test Indication: Diabetes in Findings: NST: Reactive with GBTBV, + Accelerations, No decelerations. No regular contractions. Cat 1. [facility] Procedure note* Lemuel Lee MD - 06/25/2022 9:30 AM EDTAssociated Order(s): WA NON-STRESS TEST Pre-Procedure Diagnose(s): Diet controlled gestational diabetes mellitus (GDM) in third trimester Post-Procedure Diagnose(s): Diet controlled gestational diabetes mellitus (GDM) in third trimester Procedure: Non-Stress Test Indication: Diabetes in Findings: NST: Reactive with GBTBV, + Accelerations, No decelerations. No regular contractions. Cat1. [facility] Procedure note* Lemuel Lee MD - 06/25/2022 9:30 AM EDTAssociated Order(s): WA NON-STRESS TEST Pre-Procedure Diagnose(s): Diet controlled gestational diabetes mellitus (GDM) in third trimester Post-Procedure Diagnose(s): Diet controlled gestational diabetes mellitus (GDM) in third trimester Procedure: Non-Stress Test Indication: Diabetes in Findings: NST: Reactive with GBTBV, + Accelerations, No decelerations. No regular contractions. Cat1. documented in this [facility]10-06-2022 NoteOB ULTRASOUND PROCEDURE REFERRING PHYSICIAN: Dr. Lee TECHNOLOGIST: Radha Simon PROCEDURE PERFORMED BY: Radha Simon PROCEDURE DATE: 06/18/2022 INDICATIONS: Gestational diabetic PROCEDURE DETAILS: The lie is Vertex. EFW is 1677g, which is the 48.5 percentile. The umbilical artery S/D ratio is 2.85. The heart rate is 130 bpm. [facility]10-06-2022 History of Present illness Narrative* Ariella Nowak LPN - 06/18/2022 10:00 AM EDT 31.0 here for CAITIE with growth US and NST for GDM. Reports good FM. Denies any VB, LOF, or contractions. Reports continued pain to RUQ, describes as sore and aching. Pt has BS log with her today. * Lemuel Lee MD - 06/18/2022 10:00 AM EDT Patient doing well. No concerns. Good movement 1. GDM: EKG and 24 hour urine normal. HgbA1C 5.2. Blood sugars reviewed and normal except for 1 post prandial sugar. All fastings normal. NST reactive today. OB ultrasound c/w EFW 48% with normal fluid and S/D ratio. Patient has seen dietitian and childbirth educator. documented [facility]22 NoteLemuel Lee MD 06/18/2022 10:31 AM Procedure: Non-Stress Test Indication: Diabetes in Findings: NST: Reactive with GBTBV, + Accelerations, No decelerations. No regular contractions. Cat 1. [facility] Procedure note* Lemuel Lee MD - 06/18/2022 10:00 AM EDTAssociated Order(s): WA NON-STRESS TEST Pre-Procedure Diagnose(s): Diet controlled gestational diabetes mellitus (GDM) in third trimester Post-Procedure Diagnose(s): Diet controlled gestational diabetes mellitus (GDM) in third trimester Procedure: Non-Stress Test Indication: Diabetes in Findings: NST: Reactive with GBTBV, + Accelerations, No decelerations. No regular contractions. Cat1. [facility] Procedure note* Lemuel Lee MD - 06/18/2022 10:00 AM EDTAssociated Order(s): WA NON-STRESS TEST Pre-Procedure Diagnose(s): Diet controlled gestational diabetes mellitus (GDM) in third trimester Post-Procedure Diagnose(s): Diet controlled gestational diabetes mellitus (GDM) in third trimester Procedure: Non-Stress Test Indication: Diabetes in Findings: NST: Reactive with GBTBV, + Accelerations, No decelerations. No regular contractions. Cat1. documented in this [facility]10-05-2022 History of Present illness Narrative* Татьяна Villegas RN - 06/17/2022 3:27 PM EDT [facility] DIABETES SELF-MANAGEMENT EDUCATION AND SUPPORT PROGRAM Patient Name: Drake Petty Patient : 1995 Primary Care Provider: Татьяна Brooke CNP Referred By: Lemuel Lee* Referral Diagnosis: Gestational Diabetes Start Time: 230 pm End Time: 330 pm Behavior Goals: See Plan of Care Follow Up: Follow up appointment scheduled by patient Unique needs: Hearing impairment requiring sign language: no Visual impairment requiring print augmentation: no Language barrier requiring interpreters: no Low literacy: no Transportation issues: no Barriers to program access: no Barriers w/ technology: no Insured/uninsured/lack of insurance coverage/financial barriers: no Past Medical History: Past Medical History: Diagnosis Date ADHD Gestational diabetes PCOS (polycystic ovarian syndrome) 10/12/2019 Social History: Social History Socioeconomic History Marital status: Number of children: 0 Highest education level: Bachelor's degree (e.g., BA, AB, BS) Tobacco Use Smoking status: Never Smokeless tobacco: Never Vaping Use Vaping Use: Never used Substance and Sexual Activity Alcohol use: Not Currently Drug use: No Sexual activity: Yes Social Determinants of Health Financial Resource Strain: Low Risk Difficulty of Paying Living Expenses: Not hard at all Food Insecurity: No Food Insecurity Worried About Running Out of Food in the Last Year: Never true Ran Out of Food in the Last Year: Never true Transportation Needs: No Transportation Needs Lack of Transportation (Medical): No Lack of Transportation (Non-Medical): No Physical Activity: Inactive Days of Exercise per Week: 0 days Minutes of Exercise per Session: 0 min Stress: Stress Concern Present Feeling of Stress : To some extent Social Connections: Moderately Isolated Frequency of Communication with Friends and Family: More than three times a week Frequency of Social Gatherings with Friends and Family: Three times a week Attends Nondenominational Services: Never Active Member of Clubs or Organizations: No Attends Club or Organization Meetings: Never Marital Status: Housing Stability: Low Risk Unable to Pay for Housing in the Last Year: No Number of Places Lived in the Last Year: 1 Unstable Housing in the Last Year: No History From: History obtained from chart review and the patient. Current/Pertinent Medications: Current Outpatient Medications Ordered in [facility] Medication Sig Dispense Refill cholecalciferol, vitamin D3, 1,000 unit tablet Take 1 (one) tablet (1,000 Units total) by mouth daily . folic acid (FOLVITE) 400 MCG tablet Take 1 (one) tablet (400 mcg total) by mouth daily . metFORMIN (GLUCOPHAGE) 500 MG tablet Take 1 (one) tablet (500 mg total) by mouth daily with breakfast . 30 tablet 11 vitamin with Ca-Iron-FA 27-1 mg Tab Take 1 (one) tablet by mouth daily . No current [facility]-ordered facility-administered medications on file. SMBG Results: FBS: 80-88 2 hr PP breakfast: 90-119 2 hr PP lunch: 78-155 2 hr PP supper: 83-139 Lab Results Component Value Date HGBA1C 4.9 06/30/2021 HGBA1C 5.3 08/22/2020 No results found for: CHOL No results found for: TRIG No results found for: HDL No results found for: LDL Intervention/Education Provided: Met with pt for GDM education. Pt was diagnosed 1 wk ago and has been doing SMBG at home FBS and 2 hr PP. See results above. Has not been exercising recently. Discussed normal glucose metabolism, pathophysiology of GDM, goals for blood sugar, the role of the liver in blood sugar control, the importance of a regular feeding schedule, balancing CHOs at feedings along with lean protein, fiber and good fats, exercise, the risks for both her and the baby, SMBG including times to test and when to contact her TRAIN GATE ATTENDANT, kick counting. Tips given for more comfortable testing. Questions answered. Goals set and copy of the AVS along with handouts listed below and this educator's business card given to pt. F/U appointment set for 07/07/22 via telehealth. Verbal consent received. Foot Exam: n/a Patient/Family Education: Learner: patient Readiness: action - ready to set action plan and implement and maintenance - has made change and istrying and/or practicing different alternative behaviors Barriers to Learning: none Method: explanation and handout Response: demonstrated understanding, needs reinforcement, and verbalizes understanding Expected Adherence: good Education Plan: _x_Diabetes Pathophysiology _x_Healthy Eating _x_Being Active _x_Taking Medications _x_Monitoring Glucose _x_Acute Complications _x_Chronic Complications _x_Lifestyle and Healthy Coping _x_Diabetes Distress and Support Education Record/Assessment: Ability to describe Diabetes Pathophysiology Select one: needs instruction needs review demonstrates competency not covered not applicable Ability to incorporate Healthy Eating into lifestyle Select one: needs instruction needs review demonstrates competency not covered not applicable Ability to incorporate Being Active into lifestyle Select one: needs instruction needs review demonstrates competency not covered not applicable Ability to Take Medications safely (if applicable) Select one: needs instruction needs review demonstrates competency not covered not applicable Ability to Monitor Glucose and other parameters, interpreting and using results Select one: needs instruction needs review demonstrates competency not covered not applicable Ability to prevent detect and treat Acute Complications Select one: needs instruction needs review demonstrates competency not covered not applicable Ability to prevent detect and treat Chronic Complications Select one: needs instruction needs review demonstrates competency not covered not applicable Ability adapt Lifestyle for Healthy Coping Select one: needs instruction needs review demonstrates competency not covered not applicable Ability to recognize Diabetes Distress and identify Support options Select one: needs instruction needs review demonstrates competency not covered not applicable Education Materials Provided: Gestational Diabetes Toolkit Gestational Diabetes Blood Glucose Log DSMS Support Plan Where Weight Goes During Insulin Needs During Diabetes in (Non-Gestational): Blood Glucose Control This documentation has been sent to the referring healthcare provider. documented in this [id number] History of Present illness Narrative* Marianna Aguilar RD - 06/16/2022 8:00 AM EDT Patient Name: Drake Petty Patient : 1995 Primary Care Provider: Татьяна Brooke CNP Referred By: Lemuel Lee* Referral Diagnosis: Gestational Diabetes Start Time: 8:00 am End Time: 9:00 am Nutrition Diagnosis: Food and nutrition related knowledge deficit related to lack of exposure to nutrition information as evidenced by patient interview Nutrition Goals: 1) I will eat 3 meals a day with snacks in between to balance my carbohydrate throughout the day. Follow Up: Follow up appointment scheduled by patient - 06/30/22 Telehealth Assessment: Pt arrived alone today. Pt reports ASHLEE = 08/20/22, first . Currently ~31 wks gestation. Pt reports hx of PCOS and treatment with metformin and victoza prior to . Pt was able to lose ~30# last year, with lowest wt ~140# and then regained about 10#. Pt began BGM last weekand provided results today. All wnl except after eating Sami food which included higher carbohydr ate content. 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 Lives w/ . Denies N/V/D; has constipation occasionally. C/o heartburn with long periods without food during the day. Pt reports adjusting eating since GDM dx and has reduced carbohydrate intake and including more snacks to prevent heartburn. Primary Support - Food Prep - self Grocery Shopping - self Cultural or Nondenominational Dietary Needs - none Pertinent Food/Drug Interactions - none Height: 64 in year. Current Weight: 184# today. Pre- wt 150-155# Pt reports wt of 140-145 at the end of last year. 30-35# wt gain at 31 wks. BMI: 26 (Pre- wt) BMI Classification: Overweight (25.0-29.9) - pre- Weight History: Wt Readings from Last 5 Encounters: 01/30/20 77.5 kg (170 lb 12.8 oz) 10/12/19 81.7 kg (180 lb 3.2 oz) 09/25/19 83.5 kg (184 lb) 03/01/19 75.5 kg (166 lb 6.4 oz) 02/09/19 74.4 kg (164 lb) Diet History/Recall: Breakfast - Horacio Hiram Breakfast Bowls (egg white version) w/ water. Snack 9:30-10:30 am 1 package peanut butter crackers. 11:30am-12:30 pm Lunch - salad w/ chicken or salad fromChipotle or chicken noodle soup + side salad w/ ranch dressing. Snack - a few nut thin crackers. 5:30-8 pm Dinner - grilled meat + vegetables or fajitas w/o tortillas. No snack unless heartburn 1- 2 xwk (peanut butter crackers.) Beverages - water only Meals Away From Home - 3 x wk Alcohol Use - none Pt reports enjoying fruit but has been avoiding since GDM dx. Nutrition Focused Physical Findings: Dentition: no problems GI/food intolerances: denies Food Allergies: none Current Activity Level: Lightly Active Past Medical History: Past Medical History: Diagnosis Date ADHD PCOS (polycystic ovarian syndrome) 10/12/2019 History From: History obtained from patient and chart review. Current/Pertinent Medications: prescription for Current Outpatient Medications Ordered in [facility] Medication Sig Dispense Refill metFORMIN (GLUCOPHAGE) 500 MG tablet Take 1 (one) tablet (500 mg total) by mouth daily with breakfast . 30 tablet 11 No current [facility]-ordered facility-administered medications on file. Pt is not currently taking metformin - this was discontinued in first trimester. Currently taking vitamin/mineral supplement +additional folic acid + vitamin D BGM Results: FBG 80-87, 2 hr pp Breakfast 90-119, 2 hr pp Lunch 78-155, 2 hr pp Dinner 83-125. OGTTResults: FBG 86, 1 hr 216, 2 hr 201, 3 hr 180. Lab Results Component Value Date HGBA1C 4.9 06/30/2021 HGBA1C 5.3 08/22/2020 No results found for: CHOL No results found for: TRIG No results found for: HDL No results found for: LDL Food Insecurity Within the past 12 months, we worried whether our food would run out before we got money to buy more [Multiple Answer] Often True [3.00] Sometimes True [2.00] Rarely True [1.00] Never True [0.00] Within the past 12 months, the food we bought just didn't last and we didn't have the money to get more. [Multiple Answer] Often true [3.00] Sometimes true [2.00] Rarely true [1.00] Never true [0.00] Estimated Nutritional Needs: Calorie Needs: 5540-8891 (20-23 kcal/kg + 450 for 3rd trimester) Intervention/Education Provided: Reviewed healthy food sources for /GDM. Reviewed macronutrient sources and effects of these on blood sugar. Reviewed label reading. Created meal plan to promote variety, balance for meal and snack ideas. Provided BGM log and provided recommendations for blood sugar targets. Pt very receptive to information. Commended pt for making adjustments in lifestyleto promote health of self and baby. Patient/Family Education: Learner: patient Readiness: maintenance - has made change and is trying and/or practicing different alternative behaviors Barriers to Learning: none Method: explanation and handout Response: verbalizes understanding Expected Adherence: good Education Materials Provided: Planning Healthy Meals; Meal Plan; BGM log Monitoring/Evaluation: BGM results, weight, food recall, self-report, goal achievement. Incorporating nutrition management into lifestyle. Describe effect of type, amount and timing of food on blood glucose; list 3 methods for planning meals. Select one: needs instruction needs review demonstrates competency not covered not applicable This documentation has been sent to the referring healthcare provider. documented in this [id number] History of Present illness Narrative* Shavonne Ba LPN - 05/22/2022 2:00 PM EDT 27.1, OB TX. Has not felt the baby move since last night. * Josse Walter MD - 05/22/2022 2:00 PM EDT [facility] - [place] 27 y.o. at 27w1d Uncomplicated Ms. Petty reports feeling no movement since yesterday. She said she performed focused kick count monitoring but was unable to feel movement. Her placenta is anterior. Very slight movement was felt by myself. She was able to feel at least one kick during her time in clinic. Today: NST was reassuring for gestational age. - Keep scheduled appointment detailed below Future Appointments Date Time Provider Department Center 05/28/2022 9:30 AM Lemuel Lee MD [id number] [facility] 06/03/2022 10:00 AM [facility] [id number] OB ULTRASOUND, AVG 043OU [facility] 06/11/2022 9:30 AM Josse Walter MD [id number] note* Josse Walter MD - 05/22/2022 2:00 PM EDTAssociated Order(s): WA NON-STRESS TEST Procedure(s): WA NON-STRESS TEST Pre-Procedure Diagnose(s): Decreased movement, second trimester, fetus 1 Post-Procedure Diagnose(s): Decreased movement, second trimester, fetus 1 Non-stress Test Gestational age: 27w1d Indication: Decreased movement Baseline: 140 bpm 10x10s: N/A Variability: moderate Decelerations: absent Contractions: absent Duration >20 minutes Comments: Reassuring for gestational age 0905/22/22 Josse Walter MD [facility]09-09-[facility] Procedure note* Josse Walter MD - 05/22/2022 2:00 PM EDTAssociated Order(s): WA NON-STRESS TEST Procedure(s): WA NON-STRESS TEST Pre-Procedure Diagnose(s): Decreased movement, second trimester, fetus 1 Post-Procedure Diagnose(s): Decreased movement, second trimester, fetus 1 Non-stress Test Gestational age: 27w1d Indication: Decreased movement Baseline: 140 bpm 10x10s: N/A Variability: moderate Decelerations: absent Contractions: absent Duration >20 minutes Comments: Reassuring for gestational age 0905/22/22 Josse Walter MD [facility] History of Present illness Narrative* Ariella Nowak LPN - 04/30/2022 10:30 AM EDT 24.0 here for CAITIE with US for outflow tracts. Reports good FM. Denies any VB or cramping. Third trimester paperwork/education reviewed, glucola and instructions given. * Lauren Perez APRN-DECORATOR LIGHTING FIXTURES - 04/30/2022 10:30 AM EDT Pt doing well. Denies concerns. 1. Anatomy not previously seen on scan - outflow tracts seen today, no further US f/u needed. 2. Verbal and written glucose instructions given for next appt. Pt verbalizes understanding. 3. Discussed tdap for next appt and pt will think about. [facility] Note20 WEEK OB ULTRASOUND PROCEDURE REFERRING PHYSICIAN: Dr. Lee TECHNOLOGIST: Radha Simon PROCEDURE PERFORMED BY: Radha Simon RDMS PROCEDURE DATE: 04/09/2022 INDICATIONS: Routine 20 Week PROCEDURE DETAILS: Routine 20 week ultrasound performed. No abnormalities seen. Normal visualization of brain, spine, lip, 4 ch heart, stomach, kidneys, bladder, cord insertion and 3 vessel cord. Placenta is Anterior with no previa noted. Normal fluid amount noted. [facility]07-28-2022 History of Present illness Narrative* Shavonne Ba LPN - 04/09/2022 10:30 AM EDT 21.0, Anatomy scan. * Josse Walter MD - 04/09/2022 10:30 AM EDT [facility] - [place] 27 y.o. at 21w0d Uncomplicated She reports burning with urination, but this resolves with adequate hydration. She was advised to call if symptoms persist. Today: Normal anatomy, but unable to see outflow tracts. - Return OB visit in 3 weeks with U/S for outflow tracts. [facility] History of Present illness Narrative* Ariella Nowak LPN - 03/12/2022 3:00 PM EDT 17.0 here for CAITIE and early gender US. Denies any VB or cramping. +1 glucose noted in urine. * Lemuel Lee MD - 03/12/2022 3:00 PM EDT Patient doing well. No concerns. Gender scan c/w male fetus 1. Blood type: A+ ( correction from first visit) 2. Desires AFP and Tetra - to bd drawn today 3. Cultures were negative. * Clara Gorman RN - 03/12/2022 3:00 PM EDT Venipuncture performed 21 G butterfly first attempt Right AC, 2 gold top tubes obtained. Patient tolerated venipuncture well. documented in this [facility]06-30-2022 Miscellaneous Notes* Addendum Note - Clara Gorman RN - 03/12/2022 3:00 PM EDTAddended by: CLARA GORMAN on: 03/12/2022 03:53 PM Modules accepted: Orders * Addendum Note - Clara Gorman RN - 03/12/2022 3:00 PM EDTAddended by: CLARA GORMAN on: 03/12/2022 04:14 PM Modules accepted: Orders documented in this [facility]06-30-2022 Note* Addendum Note - Clara Gorman RN - 03/12/2022 3:00 PM EDTAddended by: CLARA GORMAN on: 03/12/2022 03:53 PM Modules accepted: Orders [facility]* Addendum Note - Clara Gorman RN - 03/12/2022 3:00 PM EDTAddended by: CLARA GORMAN on: 03/12/2022 04:14 PM Modules accepted: Orders [facility] History of Present illness Narrative* Josse Walter MD - 02/02/2022 2:50 PM EDT [facility] [place] 26 y.o. at 11w4d 1. Rh neg Ms. Petty reports urinary frequency around 1900 yesterday, along with burning iwht voiding. Around 2029, she took Azo and her symptoms improved. She denies any symptoms today. UA is clear Today: UCx sent. Patient to call if symptoms recur to start empiric treatment - Keep scheduled appointment detailed below Future Appointments Date Time Provider Department Center 03/12/2022 2:30 PM [facility] [id number] OB ULTRASOUND, AVG 043OU [facility] 03/12/2022 3:00 PM Lemuel Lee MD [id number] [facility] documented in this [facility]04[facility] History of Present illness Narrative* Ariella Nowak LPN - 01/09/2022 2:00 PM EDT Pt here today for OB reg. with ASHLEE of 08/15/22 by LMP of 11/08/21. Denies any specific concerns at this time. Pt denies history of genital herpes outbreak. Pt is currently taking vitaminsalong with the following medications: Folic Acid and Vit D3. do's and don'ts, safe medications, what to expect at appointments and US schedule reviewed and all questions answered. HIV lab consent reviewed and signed. First trimester labs obtained. This nurse obtained 6 yellow and 2 purpletop tubes via venipuncture to right AC x 1 attempt. Pressure and bandage applied. Pt tolerated well. Pt scheduled for NOB and US visit in 2-3 weeks. [facility] History of Present illness Narrative* Lemuel Lee MD - 12/17/2021 7:40 AM EDT History of Present Illness Jewels Petty is a 26-year-old female 1 para 0 who called with positive urine patency test. Patient also reported pelvic pain. Concern existed over possible early ectopic. Quantitative betahCG was originally approximately 90 but now is over 500 approximately 4 days ago. Ultrasound today c/w with following: PROCEDURE DETAILS A single gestational sac was noted within the uterus. Probable yolk sac seen. pole not yet seen. FINAL IMPRESSION: 1. Single gestational sac noted within the uterus. 2. Probable yolk sac seen. 3. pole not yet seen. Patient and were counseled regarding finding early IUP with yolk sac. Discussed the absenceof pole at this point, but this would be expected secondary to early gestational age. The following portions of the patients of the chart have reviewed and updated as required. Patient Active Problem List Diagnosis Insulin resistance Polycystic ovaries Vitamin D deficiency Current Outpatient Medications Medication Sig Dispense Refill clomiPHENE 50 MG tablet Take 1 tablet by mouth daily. To be taken cycle day 3 thru 7. 5 tablet 0 metFORMIN-XR 500 MG Tab SR 24 HR Take 1,000 mg by mouth daily. Vit-Fe Fumarate-FA ( VITAMIN PO) Take by mouth. Vitamin D, Cholecalciferol, 25 MCG (1000 UT) tablet Take 1,000 Units by mouth daily. No current facility-administered medications for this visit. Past Medical History: Diagnosis Date PCOS (polycystic ovarian syndrome) No Known Allergies Past Surgical History: Procedure Laterality Date ARTHROSCOPY KNEE W/ MENISCECTOMY left knee EXCISION GANGLION CYST WRIST right wrist OB History 1 Para 0 Term 0 0 AB 0 Living 0 SAB 0 IAB 0 Ectopic 0 Molar 0 Multiple 0 Live Births 0 Social History Socioeconomic History Marital status: Spouse name: Not on file Number of children: Not on file Years of education: Not on file Highest education level: Not on file Occupational History Not on file Tobacco Use Smoking status: Never Smoker Smokeless tobacco: Never Used Vaping Use Vaping Use: Never used Substance and Sexual Activity Alcohol use: Not Currently Drug use: Never Sexual activity: Yes Partners: Male control/protection: None Other Topics Concern Service Not Asked Blood Transfusions Not Asked Caffeine Concern Not Asked Occupational Exposure Not Asked Hobby Hazards Not Asked Sleep Concern Not Asked Stress Concern Not Asked Weight Concern Not Asked Special Diet Not Asked Back Care Not Asked Exercise Not Asked Bike Helmet Not Asked Seat Belt Not Asked Domestic Violence No Social History Narrative Not on file Social Determinants of Health Financial Resource Strain: Low Risk Difficulty of Paying Living Expenses: Not hard at all Food Insecurity: No Food Insecurity Worried About Running Out of Food in the Last Year: Never true Ran Out of Food in the Last Year: Never true Transportation Needs: No Transportation Needs Lack of Transportation (Medical): No Lack of Transportation (Non-Medical): No Physical Activity: Not on file Stress: No Stress Concern Present Feeling of Stress : Not at all Social Connections: Unknown Frequency of Communication with Friends and Family: Once a week Frequency of Social Gatherings with Friends and Family: Not on file Attends Nondenominational Services: Not on file Active Member of Clubs or Organizations: Not on file Attends Club or Organization Meetings: Not on file Marital Status: Intimate Partner Violence: Not At Risk Fear of Current or Ex-Partner: No Emotionally Abused: No Physically Abused: No Sexually Abused: No Housing Stability: Unknown Unable to Pay for Housing in the Last Year: No Number of Places Lived in the Last Year: Not on file Unstable Housing in the Last Year: No Family History Problem Relation Age of Onset No known problems Mother Hypertension Father Diabetes Maternal Grandfather Diabetes Paternal Grandmother Review of Systems Constitutional: Negative. Negative for activity change, appetite change, chills, diaphoresis, fatigue and fever. HENT: Negative. Negative for congestion and dental problem. Eyes: Negative for discharge and itching. Respiratory: Negative for apnea, cough, chest tightness, shortness of breath and wheezing. Cardiovascular: Negative for chest pain and leg swelling. Gastrointestinal: Negative for abdominal distention, abdominal pain and nausea. Endocrine: Negative for cold intolerance, heat intolerance, polydipsia and polyuria. Genitourinary: Negative for decreased urine volume, difficulty urinating, dysuria and genital sores. Musculoskeletal: Negative for arthralgias, back pain, gait problem and joint swelling. Skin: Negative for color change, pallor and rash. Allergic/Immunologic: Negative. Neurological: Negative for dizziness, tremors, seizures, weakness, light- headedness and headaches. Hematological: Negative for adenopathy. Does not bruise/bleed easily. Psychiatric/Behavioral: Negative for agitation, behavioral problems, hallucinations and suicidal ideas. The patient is not nervous/anxious. Vitals: Last menstrual period 11/08/2021, not currently . Physical Exam Genitourinary: Comments: Pelvic exam deferred. Skin: General: Skin is warm and dry. Neurological: Mental Status: She is alert and oriented to person, place, and time. Cranial Nerves: No cranial nerve deficit. Sensory: No sensory deficit. Motor: No weakness. Coordination: Coordination normal. Psychiatric: Judgment: Judgment normal. Neurological Exam Mental Status Alert. Oriented to person, place, and time. Assessment and Plan 1. Pelvic pain in , antepartum, first trimester IUP noted. Patient on PNV. Will arrange for new OB appt. Face to face time with this patient was approximately 15 minutes with greater than 50% of the time spent in consultation and / or in coordination of care. Return in about 3 weeks (around 01/07/2022) for Ob Reg.. The documentation within this encounter was likely aided with Manyetaon, and electronic toeing stockings device. Please excuse any errors or omissions that may not have been recognized at the time of this encounter. [facility] History of Present illness Narrative* Lemuel Lee MD - 11/24/2021 7:20 AM EDT History of Present Illness She presents in follow-up of her infertility. Patient doing well. Cycle day 3-5 labs reviewed. These were all normal. Cycle day 21 progesterone level was 8.0. Review of her cycles suggest that she runs more of a 31-32 day cycle. Discussed that cycle day 21 progesterone levels checked to be drawn onapproximately cycle day 24. See previous note. 's semen analysis was normal with regard to motility and count. Is also normal with regard normal forms. Review of Systems Constitutional: Negative. Negative for activity change, appetite change, chills, diaphoresis, fatigue and fever. HENT: Negative. Negative for congestion and dental problem. Eyes: Negative for discharge and itching. Respiratory: Negative for apnea, cough, chest tightness, shortness of breath and wheezing. Cardiovascular: Negative for chest pain and leg swelling. Gastrointestinal: Negative for abdominal distention, abdominal pain and nausea. Endocrine: Negative for cold intolerance, heat intolerance, polydipsia and polyuria. Genitourinary: Negative for decreased urine volume, difficulty urinating, dysuria and genital sores. Musculoskeletal: Negative for arthralgias, back pain, gait problem and joint swelling. Skin: Negative for color change, pallor and rash. Allergic/Immunologic: Negative. Neurological: Negative for dizziness, tremors, seizures, weakness, light- headedness and headaches. Hematological: Negative for adenopathy. Does not bruise/bleed easily. Psychiatric/Behavioral: Negative for agitation, behavioral problems, hallucinations and suicidal ideas. The patient is not nervous/anxious. Vitals: Blood pressure 118/68, height 5' 4 (1.626 m), weight 154 lb (69.9 kg), last menstrual period 11/08/2021, not currently . Physical Exam Genitourinary: Comments: Exam deferred Skin: General: Skin is warm and dry. Neurological: General: No focal deficit present. Mental Status: She is alert and oriented to person, place, and time. Cranial Nerves: No cranial nerve deficit. Sensory: No sensory deficit. Motor: No weakness. Coordination: Coordination normal. Psychiatric: Judgment: Judgment normal. Neurological Exam Mental Status Alert. Oriented to person, place, and time. Assessment and Plan 1. Infertility associated with anovulation Patient now presents a negative workup. 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 Patient does have an element of PCO S. Last cycle day 21 progesterone level was 8. We will give Clomid 50 mg cycleday 3 through 7. Vision is to time her intercourse and will obtain cycle day 21 progesterone level on cycle day 24 given her average of approximately 32 day cycle. - PROGESTERONE; Standing Face to face time with this patient was approximately 20 minutes with greater than 50% of the time spent in consultation and / or in coordination of care. Return if symptoms worsen or fail to improve, for with TKH. The documentation within this encounter was likely aided with Dragon, and electronic toeing stockings device. Please excuse any errors or omissions that may not have been recognized at the time of this encounter. [facility] Diagnosis Infertility associated with anovulation- Primary Female infertility associated with anovulation documented in this encounter [facility] note* Diagnosis Pelvic pain in , antepartum, first trimester- Primary documented in this encounter [facility] note* Diagnosis 8 weeks gestation of - Primary state, incidental documented in this encounter [facility] note* Diagnosis 8 weeks gestation of state, incidental documented in this encounter [facility] note* Diagnosis Dysuria- Primary documented in this encounter [facility] note* Diagnosis Ultrasound scan done for inability to hear heart tones Abnormality in heart rate/rhythm, antepartum condition or complication documented in this encounter [facility] note* Diagnosis Encounter for supervision of normal first in second trimester- Primary Supervision of normal first 17 weeks gestation of state, incidental documented in this encounter [facility] note* Diagnosis care in second trimester- Primary documented in this encounter [facility] note* Diagnosis 20 weeks gestation of state, incidental documented in this encounter [facility] note* Diagnosis Encounter for supervision of normal first in second trimester- Primary Supervision of normal first 24 weeks gestation of state, incidental documented in this encounter [facility] note* Diagnosis Encounter for follow-up ultrasound of anatomy documented in this encounter [facility] note* Diagnosis Decreased movements in second trimester, single or unspecified fetus- Primary documented in this encounter [facility] note* Diagnosis Diet controlled gestational diabetes mellitus (GDM) in third trimester documented in this encounter [facility]* Diagnosis Diet controlled gestational diabetes mellitus (GDM), antepartum documented in this encounter [facility]* Diagnosis Diet controlled gestational diabetes mellitus (GDM), antepartum- Primary documented in this encounter [facility] note* Diagnosis Diet controlled gestational diabetes mellitus (GDM) in third trimester- Primary Encounter for supervision of high risk in third trimester, antepartum 31 weeks gestation of state, incidental Ultrasound scan done for inability to hear heart tones Abnormality in heart rate/rhythm, antepartum condition or complication [facility] Diagnosis Diet controlled gestational diabetes mellitus (GDM) in third trimester- Primary Encounter for supervision of high risk in third trimester, antepartum 32 weeks gestation of state, incidental [facility] Diagnosis Diet controlled gestational diabetes mellitus (GDM) in third trimester- Primary Encounter for supervision of high risk in third trimester, antepartum 32 weeks gestation of state, incidental [facility]* Diagnosis Diet controlled gestational diabetes mellitus (GDM) in third trimester- Primary Encounter for supervision of high risk in third trimester, antepartum 34 weeks gestation of state, incidental [facility]* Diagnosis RUQ pain- Primary Abdominal pain, right upper quadrant Abnormal maternal glucose tolerance, antepartum Diet controlled gestational diabetes mellitus (GDM) in third trimester [facility] Diagnosis Supervision of high risk in third trimester- Primary Unspecified high-risk Diet controlled gestational diabetes mellitus (GDM) in third trimester 35 weeks gestation of state, incidental [facility]* Diagnosis Preventative health care- Primary Routine general medical examination at a health care facility [facility] Diet controlled gestational diabetes mellitus (GDM) in third trimester- Primary Supervision of high risk in third trimester Unspecified high-risk 36 weeks gestation of state, incidental [facility]* Diagnosis Diet controlled gestational diabetes mellitus (GDM) in third trimester- Primary Supervision of high risk in third trimester Unspecified high-risk 37 weeks gestation of state, incidental [facility]* Diagnosis Diet controlled gestational diabetes mellitus (GDM) in third trimester- Primary Supervision of high risk in third trimester Unspecified high-risk 37 weeks gestation of state, incidental [facility]* Diagnosis (spontaneous vaginal delivery)- Primary Normal delivery Diet controlled gestational diabetes mellitus (GDM) in third trimester Encounter for induction of labor Encounter for induction of labor [facility]* Diagnosis Disruption of episiotomy wound in the puerperium- Primary Disruption of perineal wound, unspecified as to episode of care in [facility] Diagnosis Viral URI with cough- Primary Acute upper respiratory infections of unspecified site Acute cough [facility] Diagnosis Preventative health care- Primary Routine general medical examination at a health care facility Anxiety Anxiety state, unspecified [facility] Diagnosis Anxiety- Primary Anxiety state, unspecified [facility] Diagnosis Acute bronchitis, unspecified organism- Primary Acute cough [facility] Diagnosis Well woman exam with routine gynecological exam- Primary Routine gynecological examination Cervical cancer screening Screening for malignant neoplasm of the cervix [facility] Diagnosis Sore throat- Primary Acute pharyngitis documented in this encounter [facility] note* Diagnosis Acute non-recurrent frontal sinusitis- Primary [facility] Diagnosis Anxiety- Primary Anxiety state, unspecified [facility] Diagnosis Anxiety- Primary Anxiety state, unspecified Chronic fatigue Other malaise and fatigue [facility] Diagnosis Anxiety and depression- Primary [facility] Diagnosis Anxiety and depression- Primary [facility] Diagnosis Acute rhinosinusitis- Primary documented in this encounter [facility] Work Phone: Evaluation note* Diagnosis Anxiety and depression- Primary Anxiety and depression- Primary Unspecified mood (affective) disorder (HCC)- Primary as incidental finding documented in this encounter [facility] Discharge instructions* Attachments The following attachments cannot be sent through Care Everywhere. * : Vaginal Delivery (Senegalese) [facility] Attachments The following attachments cannot be sent through Care Everywhere. * Infertility (Senegalese) [facility]* Attachments The following attachments cannot be sent through Care Everywhere. * URI (Upper Respiratory Infection): Viral (Senegalese) [facility]* Attachments The following attachments cannot be sent through Care Everywhere. * Acute Bronchitis or Chest Cold Care Instructions ([facility]) ([place]egalese) [facility]* Attachments The following attachments cannot be sent through Care Everywhere. * Female Exams and Screenings ([facility]) ([place]egalese) [facility]* Attachments The following attachments cannot be sent through Care Everywhere. * Sinusitis: Acute (Senegalese) documented in [facility] for referral (narrative)No reason for referral information availableWNationwide Children[facility] Work Phone: Assessments Diagnosis Weight gain - Primary Other symptoms concerning nutrition, metabolism, and development Pityriasis rosea Diagnosis Weight gain Other symptoms concerning nutrition, metabolism, and development Diagnosis PCOS (polycystic ovarian syndrome) Polycystic ovaries Diagnosis Weight gain Other symptoms concerning nutrition, metabolism, and development PCOS (polycystic ovarian syndrome) Polycystic ovaries Summary Purpose Family History Relationship Condition Age at Onset Recorded Date/T andres father Hypertension Unknown mother Anxiety with depression Unknown grandmother Diabetes mellitus Unknown Malignant neoplasm of skin 75 grandfather Diabetes mellitus Unknown Advance Directives Documents on File Type Date Recorded 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 female. MONTEZ Chávez Is here today with a complaint of weight gain over the last several years. She has gained 20 pounds since February. She is concerned with polycystic disease. She reports symptoms of excessive hair growth especially on her breasts, sweating and fatigue. She has tried some diet and exercise but seems to give up when she does not see results The following portions of the patient's history were reviewed and updated as appropriate: She has a past medical history of ADHD. She does not have a problem list on file. She has a past surgical history that includes Knee surgery and Ganglion cyst excision (Right). Her family history includes Diabetes in her maternal grandfather and paternal grandmother; Hypertension in her father; Obesity in her maternal grandfather and maternal grandmother. She reports that she has never smoked. She has never used smokeless tobacco. She reports current alcohol use. She reports that she does not use drugs. No current outpatient medications on file. No current facility-administered medications for this visit. . Review of Systems Constitutional: Positive for fatigue and unexpected weight change. Endocrine: Negative for cold intolerance and heat intolerance. Objective Physical Exam Constitutional: Appearance: Normal appearance. HENT: Nose: Nose normal. Eyes: Conjunctiva/sclera: Conjunctivae normal. Neck: Musculoskeletal: Normal range of motion and neck supple. Cardiovascular: Rate and Rhythm: Normal rate and regular rhythm. Pulses: Normal pulses. Heart sounds: Normal heart sounds. Pulmonary: Effort: Pulmonary effort is normal. Breath sounds: Normal breath sounds. Abdominal: General: Bowel sounds are normal. Palpations: Abdomen is soft. Skin: General: Skin is warm and dry. Neurological: Mental Status: She is alert and oriented to person, place, and time. Psychiatric: Mood and Affect: Mood normal. Behavior: Behavior normal. Thought Content: Thought content normal. Judgment: Judgment normal. Assessment/Plan: Diagnoses and all orders for this visit: Weight gain - Luteinizing Hormone; Future - Follicle Stimulating Hormone; Future - Insulin, Total; Future - TSH with Reflex Free T4; Future After labs will have her come in and discuss options for weight loss. Electronically signed by Татьяна Brooke CWP * Sherri Boyd CMA - 09/25/2019 5:01 PM EST Patient stated that weight has been steadily increasing. Thinks it could be Polycystic ovarian syndrome. Also C/O off unwanted hair and increased in sweating. Tetanus- unknown last, patient declined documented in this encounter* Татьяна Brooke CNP - 10/12/2019 5:59 PM EST Subjective Patient ID: Drake Almaraz is a 24 y.o. female. HPI Discuss Labs Recent work up done for PCOS. TSH and testosterone were normal. Insulin was high as was DHEAS. I think she has some metabolic issues. We have discussed a plan. Will start on metformin 500 mg with breakfast daily if she tolerates. I have asked her to count calories and exercise(can do weight watchers). The following portions of the patient's history were reviewed and updated as appropriate: She has a past medical history of ADHD. She does not have a problem list on file. She has a past surgical history that includes Knee surgery and Ganglion cyst excision (Right). Her family history includes Diabetes in her maternal grandfather and paternal grandmother; Hypertension in her father; Obesity in her maternal grandfather and maternal grandmother. She reports that she has never smoked. She has never used smokeless tobacco. She reports current alcohol use. She reports that she does not use drugs. Current Outpatient Medications Medication Sig Dispense Refill metFORMIN (GLUCOPHAGE) 500 MG tablet Take 1 (one) tablet (500 mg total) by mouth daily with breakfast . 30 tablet 11 No current facility-administered medications for this visit. . Review of Systems Constitutional: Positive for unexpected weight change. Objective Physical Exam Assessment/Plan: Diagnoses and all orders for this visit: PCOS (polycystic ovarian syndrome) - metFORMIN (GLUCOPHAGE) 500 MG tablet; Take 1 (one) tablet (500 mg total) by mouth daily with breakfast . Will see her back in 3 months. She will work on weight loss. If this works will consider increasingthe metformin. If still not losing weight and will recheck TSH and will consider sending her to endocrinology in [place]. Electronically signed by Татьяна Brooke [facility] * Helen Shoemaker RN - 10/12/2019 4:35 PM EST No other problems documented in this encounter* Senia Finnegan MA - 01/30/2020 8:15 AM EDT Precharting: Completed. Reason for visit: Patient is here for a 3 month f/u for PCOS (polycystic ovarian syndrome) & Weight Gain. Allergies: Reviewed. Medications: Reviewed. History: Reviewed. PHQ9 and gad7: GABRIELA - 7 Completed today. PHQ - 9 Completed on 09/25/2019. Health Maintenance: Due for Lipid Panel. Due for Wellness Visit. * Татьяна Brooke CNP - 01/30/2020 8:10 AM EDT Subjective Patient ID: Drake Almaraz is a 24 y.o. female. HPI PCOS and Weight Gain Positive for newly diagnosed polycystic ovarian disease. Started on metformin to help with weight loss. She has lost 10 pounds since last visit. States that was initial weight loss but nothing since the initial. Some GI side effects with the medication. The following portions of the patient's history were reviewed and updated as appropriate: She has a past medical history of ADHD and PCOS (polycystic ovarian syndrome) (10/12/2019). She does not have a problem list on file. She has a past surgical history that includes Knee surgery and Ganglion cyst excision (Right). Her family history includes Diabetes in her maternal grandfather and paternal grandmother; Hypertension in her father; Obesity in her maternal grandfather and maternal grandmother; Rosacea in her mother. She reports that she has never smoked. She has never used smokeless tobacco. She reports current alcohol use. She reports that she does not use drugs. Current Outpatient Medications Medication Sig Dispense Refill metFORMIN (GLUCOPHAGE) 500 MG tablet Take 1 (one) tablet (500 mg total) by mouth daily with breakfast . 30 tablet 11 No current facility-administered medications for this visit. . Review of Systems Constitutional: Negative for fatigue and fever. Neurological: Negative for headaches. Objective Physical Exam Constitutional: Appearance: Normal appearance. Cardiovascular: Rate and Rhythm: Normal rate and regular rhythm. Neurological: Mental Status: She is alert. Psychiatric: Mood and Affect: Mood normal. Behavior: Behavior normal. Thought Content: Thought content normal. Judgment: Judgment normal. Assessment/Plan: Diagnoses and all orders for this visit: Weight gain - TSH with Reflex Free T4; Future - T3, Free; Future - Ambulatory referral to Endocrinology; Future - TSH with Reflex Free T4 - T3, Free - Ambulatory referral to Endocrinology; Future PCOS (polycystic ovarian syndrome) - Ambulatory referral to Endocrinology; Future - Ambulatory referral to Endocrinology; Future Electronically signed by Татьяна Brooke CWP documented in this encounter Instructions * Patient Instructions* Татьяна Brooke CNP - 10/12/2019 5:13 PM EST Polycystic Ovary Syndrome: Care Instructions Your Care Instructions Polycystic ovary syndrome, or PCOS, means a woman's hormones are out of balance. It can cause problems with your periods and make it hard to get . Doctors don't know for sure what causes PCOS, but it seems to run in families. It also seems to be linked to obesity and a risk for diabetes. If you have PCOS, your sisters and daughters have a higher chance of getting it too. You may have other symptoms. These include weight gain, acne, too much hair growth on the face or body, high blood pressure, and high blood sugar. Your ovaries may have cysts on them. These cysts aregrowths filled with fluid. Keep in mind that although you may not have regular periods, you can still get . Talk to your doctor about control if you do not want to get . Sometimes the hormone changes withPCOS can also make it hard for some women to get . If this is a concern, talk to your doctor about treatment for this problem. Women who have PCOS can go for months or longer with no period. Your doctor may recommend medicinesthat can help get your cycles back to normal. Follow-up care is a caraballo part of your treatment and safety. Be sure to make and go to all appointments, and call your doctor if you are having problems. It's also a good idea to know your test resultsand keep a list of the medicines you take. How can you care for yourself at home? Take your medicines exactly as prescribed. Call your doctor if you think you are having a problem with your medicine. Eat a healthy diet. Include fruits, vegetables, beans, and whole grains in your diet each day. If you are overweight, losing weight can help with many of the symptoms of PCOS. Talk to your doctor about safe ways to lose weight. Get at least 30 minutes of exercise on most days of the week. Walking is a good choice. Or you can run, swim, cycle, or play tennis or team sports. For hair growth you don't want, try bleaching, plucking, electrolysis, or laser therapy. Acne can be treated with [id number] medicines. Look for ones that have benzoyl peroxide or salicylic acid in them. When should you call for help? Call your doctor now or seek immediate medical care if: You have severe vaginal bleeding. You have new or worse belly or pelvic pain. Watch closely for changes in your health, and be sure to contact your doctor if: You do not get better as expected. You have unusual vaginal bleeding. Where can you learn more? Log into your personal health record on https://[employer] and enter K559 in the Education box to learn more about Polycystic Ovary Syndrome: Care Instructions. Current as of: November 01, 2018 Content Version: 12.3 [employer]. Care instructions adapted under license by your healthcare professional. If you have questions about a medical condition or this instruction, always ask your healthcare professional. [employer] disclaims any warranty or liability for your use of this information. documented in this encounter* Patient Instructions* Татьяна Brooke CNP - 01/30/2020 8:22 AM EDT Polycystic Ovary Syndrome: Care Instructions Your Care Instructions Polycystic ovary syndrome, or PCOS, means a woman's hormones are out of balance. It can cause problems with your periods and make it hard to get . Doctors don't know for sure what causes PCOS, but it seems to run in families. It also seems to be linked to obesity and a risk for diabetes. If you have PCOS, your sisters and daughters have a higher chance of getting it too. You may have other symptoms. These include weight gain, acne, too much hair growth on the face or body, high blood pressure, and high blood sugar. Your ovaries may have cysts on them. These cysts aregrowths filled with fluid. Keep in mind that although you may not have regular periods, you can still get . Talk to your doctor about control if you do not want to get . Sometimes the hormone changes withPCOS can also make it hard for some women to get . If this is a concern, talk to your doctor about treatment for this problem. Women who have PCOS can go for months or longer with no period. Your doctor may recommend medicinesthat can help get your cycles back to normal. Follow-up care is a caraballo part of your treatment and safety. Be sure to make and go to all appointments, and call your doctor if you are having problems. It's also a good idea to know your test resultsand keep a list of the medicines you take. How can you care for yourself at home? Take your medicines exactly as prescribed. Call your doctor if you think you are having a problem with your medicine. Eat a healthy diet. Include fruits, vegetables, beans, and whole grains in your diet each day. If you are overweight, losing weight can help with many of the symptoms of PCOS. Talk to your doctor about safe ways to lose weight. Get at least 30 minutes of exercise on most days of the week. Walking is a good choice. Or you can run, swim, cycle, or play tennis or team sports. For hair growth you don't want, try bleaching, plucking, electrolysis, or laser therapy. Acne can be treated with [id number] medicines. Look for ones that have benzoyl peroxide or salicylic acid in them. When should you call for help? Call your doctor now or seek immediate medical care if: You have severe vaginal bleeding. You have new or worse belly or pelvic pain. Watch closely for changes in your health, and be sure to contact your doctor if: You do not get better as expected. You have unusual vaginal bleeding. Where can you learn more? Log into your personal health record on [email or web address] and enter K559 in the Education box to learn more about Polycystic Ovary Syndrome: Care Instructions. Current as of: November 01, 2018 Content Version: 12.3 3084-4521 [employer]. Care instructions adapted under license by your healthcare professional. If you have questions about a medical condition or this instruction, always ask your healthcare professional. [employer] disclaims any warranty or liability for your use of this information. documented in this encounter Reason for Referral Status Reason Specialty Diagnoses / Procedures Referred By Contact Referred To Contact Pending Review Specialty Services Required/Patie nt's Best Interest Endocrinology/M etabolism Diagnoses Weight gain PCOS (polycystic ovarian syndrome) Татьяна Brooke CNP [address] [place] [address] Emmanuelle Lopez MD [address] [facility] [address] [place] [address] Status Reason Specialty Diagnoses / Procedures Referred By Contact Referred To Contact Authorized Specialty Services Required/Patien t's Best Interest Endocrinology/M etabolism Diagnoses Weight gain PCOS (polycystic ovarian syndrome) Татьяна Brooke, DECORATOR [employer] [address] [place] [address] Specialty Diagnoses / Procedures Referred By Contac t Referred To Contact Diagnoses 8 weeks gestation of Procedures US OB DATING ABDOMINAL < 14WEEKS Josse Walter MD [address] [place] [phone] Referral ID Status Reason Start Date Expiration Date V isits Requested Visits Authorized [id number] Auth Not Needed 01/09/2022 02/03/2023 1 1 Referral ID Status Reason Start Date Expiration Date Visits Re quested Visits Authorized [id number] Closed 01/09/2022 02/03/2023 1 1 Specialty Diagnoses / Procedures Referred By Contac t Referred To Contact Diagnoses Ultrasound scan done for inability to hear heart tones Procedures US OB DATING ABDOMINAL < 14WEEKS Josse Walter MD [address] [phone] Referral ID Status Reason Start Date Expiration Date V isits Requested Visits Authorized [id number] New Request 02/02/2022 02/27/2023 1 1 Specialty Diagnoses / Procedures Referred By Contac t Referred To Contact Diagnoses 20 weeks gestation of Procedures US OB ANATOMY Josse Walter MD [address] [place] [phone] Referral ID Status Reason Start Date Expiration Date Visits Re quested Visits Authorized [id number] Closed 03/19/2022 04/13/2023 1 1 Specialty Diagnoses / Procedures Referred By Contac t Referred To Contact Diagnoses Encounter for follow-up ultrasound of anatomy Procedures US OB LIMITED/AMNIOTIC FLUID Josse Walter MD [address] [place] [phone] Referral ID Status Reason Start Date Expiration Date Visits Re quested Visits Authorized [id number] Closed 04/13/2022 05/08/2023 1 1 Specialty Diagnoses / Procedures Referred By Contac t Referred To Contact Diagnoses Diet controlled gestational diabetes mellitus (GDM) in third trimester Procedures ECG Lemuel Lee MD [address] [place] [phone] Referral ID Status Reason Start Date Expiration Date V isits Requested Visits Authorized [id number] New Request 06/11/2022 07/06/2023 1 1 Specialty Diagnoses / Procedures Referred By Contac t Referred To Contact Diagnoses Diet controlled gestational diabetes mellitus (GDM) in third trimester Procedures US OB GROWTH/DATING > 14WEEKS Lemuel Lee MD [address] [place] [phone] Referral ID Status Reason Start Date Expiration Date Visits Re quested Visits Authorized [id number] Closed 06/11/2022 07/06/2023 1 1 Referral ID Status Reason Start Date Expiration Date V isits Requested Visits Authorized [id number] Auth Not Needed 07/09/2022 08/03/2023 1 1 Specialty Diagnoses / Procedures Referred By Contac t Referred To Contact Behavorist (Outpatient Social Work) Diagnoses Anxiety and depression Keyla Meneses, DEC[employer]ATOR [employer] [address] [place] [address] Referral ID Status Reason Start Date Expiration Date V isits Requested Visits Authorized [id number] Authorized 04/27/2024 04/27/2025 1 1 Specialty Diagnoses / Procedures Referred By Contac t Referred To Contact Psychiatry Diagnoses Anxiety and depression Keyla Meneses, DEC[employer]ATOR [employer] [address] [place] [address] [facility] [address] [place] [address] Referral ID Status Reason Start Date Expiration Date V isits Requested Visits Authorized [id number] Authorized 05/18/2024 05/18/2025 1 1 Chief Complaint and Reason for Visit Chief Complaint Admit Date Confirmation/Establish Care Ap ril 2024 8:21am NOB LMP 11/09January 18, 2025 8:46am Reason for Visit Admit Date Supervision of high-risk January 02, 2025 8:21am Depression with anxiety January 18, 2025 8: 46am History of gestational diabe rommel mellitus (GDM) in prior , currentl January 18, 2025 8:46am Hx of forceps delivery in prior pregnanc y, currently January 18, 2025 8:46am PCOS (polycystic ovarian syndrome) January 182024 8:46am January 18, 2025 8:46am Supervision of high-risk January 182024 8:46am Chief Complaint Admit Date Confirmation/Establish Care Ap ril 2024 8:21am NOB LMP 11/09January 18, 2025 8:46am 13 wk OB March 01, 2025 1:18 pm Reason for Visit Admit Date Supervision of high-risk January 02, 2025 8:21am Depression with anxiety January 18, 2025 8: 46am History of gestational diabe rommel mellitus (GDM) in prior , currentl January 18, 2025 8:46am Hx of forceps delivery in prior pregnanc y, currently January 18, 2025 8:46am PCOS (polycystic ovarian syndrome) January 182024 8:46am January 18, 2025 8:46am Supervision of high-risk January 182024 8:46am Depression with anxiety March 01, 2025 1:18pm History of gestational diabe rommel mellitus (GDM) in prior , currentl March 01, 2025 1:18pm Hx of forceps delivery in prior pregnanc y, currently March 01, 2025 1:18pm PCOS (polycystic ovarian syndrome) March 01, 2025 1:18pm March 01, 2025 1:18 pm Supervision of high-risk March 01, 2025 1:18pm Additional Source Comments INFORMATION SOURCE (unrecogn ized section and content) DATE CREATED AUTHOR 03/08/2018 [facility] DATE CREATED AUTHOR AUTHOR'S ORGANIZ ATION 04/23/2019 [facility] DATE CREATED AUTHOR AUTHOR'S ORGANIZ ATION 01/08/2023 [facility] DATE CREATED AUTHOR AUTHOR'S ORGANIZ ATION 12/10/2023 [facility] DATE CREATED AUTHOR AUTHOR'S ORGANIZ ATION 12/13/2023 [facility] DATE CREATED AUTHOR AUTHOR'S ORGANIZ ATION 06/19/2024 [facility] DATE CREATED AUTHOR AUTHOR'S ORGANIZ ATION 11/11/2024 [facility] DATE CREATED AUTHOR AUTHOR'S ORGANIZ ATION 01/23/2025 [facility] DATE CREATED AUTHOR AUTHOR'S ORGANIZ ATION 02/23/2025 [facility] Reason for Visit (unrecogniz ed section and content) Reason Comments to discuss weight Reason Comments review lab results Reason Comments Weight Gain 3mo fu Polycystic Ovary Syndrome Reason Comments Follow-up Infertility lab resu lts/semen analysis results Reason Comments Pelvic Pain Reason Comments Missed Menses Here for UPT and OB Reg Specialty Diagnoses / Procedures Referred By Contac t Referred To Contact Diagnoses 8 weeks gestation of Procedures US OB DATING ABDOMINAL < 14WEEKS Josse Walter MD [address] [phone] Referral ID Status Reason Start Date Expiration Date Visits Re quested Visits Authorized [id number] Closed 01/09/2022 02/03/2023 1 1 Reason Comments Urinary Pain 11.4,Patient with dy suria, frequency, urgency Specialty Diagnoses / Procedures Referred By Contac t Referred To Contact Diagnoses Ultrasound scan done for inability to hear heart tones Procedures US OB DATING ABDOMINAL < 14WEEKS Josse Walter MD [address] [phone] Referral ID Status Reason Start Date Expiration Date V isits Requested Visits Authorized [id number] New Request 02/02/2022 02/27/2023 1 1 Reason Comments 17.0 Reason Comments 21.0, Anatomy scan. Specialty Diagnoses / Procedures Referred By Contac t Referred To Contact Diagnoses 20 weeks gestation of Procedures US OB ANATOMY Josse Walter MD [address] [phone] Referral ID Status Reason Start Date Expiration Date Visits Re quested Visits Authorized [id number] Closed 03/19/2022 04/13/2023 1 1 Reason Comments Routine Visit Specialty Diagnoses / Procedures Referred By Contac t Referred To Contact Diagnoses Encounter for follow-up ultrasound of anatomy Procedures US OB LIMITED/AMNIOTIC FLUID Josse Walter MD [address] [place] [phone] Referral ID Status Reason Start Date Expiration Date Visits Re quested Visits Authorized [id number] Closed 04/13/2022 05/08/2023 1 1 Reason Comments 27.1, OB TX. Has not felt the baby move since last night. Specialty Diagnoses / Procedures Referred By Contac t Referred To Contact Diagnoses Diet controlled gestational diabetes mellitus (GDM) in third trimester Procedures ECG Lemuel Lee MD [address] [place] [phone] Referral ID Status Reason Start Date Expiration Date V isits Requested Visits Authorized [id number] New Request 06/11/2022 07/06/2023 1 1 Specialty Diagnoses / Procedures Referred By Contac t Referred To Contact Nutrition Diagnoses Diet controlled gestational diabetes mellitus (GDM), antepartum Lemuel Lee MD [address] [place] [phone] [facility] [address] [place] [address] Referral ID Status Reason Start Date Expiration Date V isits Requested Visits Authorized [id number] Authorized 06/12/2022 06/12/2023 5 5 Reason Comments Diabetes Mellitus Specialty Diagnoses / Procedures Referred By Contac t Referred To Contact Nutrition Diagnoses Diet controlled gestational diabetes mellitus (GDM), antepartum Lemuel Lee MD [address] [place] [phone] [facility] [address] [place] [phone] Reason Comments 31.0 with growth US and NST for GDM Specialty Diagnoses / Procedures Referred By Contac t Referred To Contact Diagnoses Diet controlled gestational diabetes mellitus (GDM) in third trimester Procedures US OB GROWTH/DATING > 14WEEKS Lemuel Lee MD [address] [place] [phone] Referral ID Status Reason Start Date Expiration Date Visits Re quested Visits Authorized [id number] Closed 06/11/2022 07/06/2023 1 1 Reason Comments GDM with NST 32 week s Reason Comments 32.4 weeks with NST GDM Reason Comments 34 weeks GDM with NS T Reason Comments 34.4, OB TX., Maria Teresa t is 34.4 weeks . Per My Chart message she has right sided rib and under breast pain. Patient was advised she needs seen for an appointment today. OB Tx scheduled per [place]. Reason Comments 35.1 Reason Comments 36.0 with NST for GD M Reason Comments 37.0 Reason Comments 37.6 Reason Comments Scheduled Induction Specialty Diagnoses / Procedures Referred By Contac t Referred To Contact Lemuel Lee MD [address] [place] [phone] [facility] Referral ID Status Reason Start Date Expiration Date Visits Re quested Visits Authorized [id number] 1 1 Reason Comments Follow-up Episiotomy wound Reason Comments Sore Throat Strep + on , prescribed penicillin not better. Cough Ear Pain Reason Comments Sore Throat Cough Nasal Congestion Had symptoms for x2w eeks Reason Comments Annual Exam Reason Comments Sore Throat Cough Ear Pain Fatigue Symptoms started yes terday Reason Comments Headache Sinus Pain Was sick with viral illness 1.5 wk ago. Has had head sinus pain x4days. OTC not helping Reason Comments Establish Care Previous-Roberto Carlos Lao year tx for GABRIELA medication treating some sxs but not all. Helped feel happier but didn't with anger/overwhelming x1-2 mo without medication Gap Closure (Health Maintenance) Tetanus : Every 10yrs Never doneLipid Panel Never doneHIV Screening Never doneHepatitis C Screening Never doneCOVID-19 Vaccine(2022- season) Never done Reason Comments Anxiety Patient here for fol low up anxiety. States that it is no different- states that it is worse at times. Still has jittery, heart racing, anger. Reason Comments Anxiety Patient here for fol low up Anxiety- patient states that there has been no change in anxiety since medication change. Symptoms include: Anger, worked up quickly, jittery, tachycardia, difficulty focusing. Gap Closure (Health Maintenance) Tetanus : Every 10yrs Never doneLipid Panel Never doneHIV Screening Never doneHepatitis C Screening Never done Reason Onset Date Comments Care coordination [facility] 04/28/2024 Reason Onset Date Comments Care coordination [facility] 05/05/2024 Reason Comments Anxiety Patient states that she feels disassociated. States that she does not feel any better. States that she is still having a lot of anger. States that she feels distant from family and friends Gap Closure (Health Maintenance) Tetanus : Every 10yrs Never doneLipid Panel Never doneHIV Screening Never doneHepatitis C Screening Never doneInfluenza Vaccine(1) due on 4COVID-19 Vaccine( - season) Never done Reason Onset Date Comments Care coordination [facility] 05/19/2024 Reason Onset Date Comments Medication Refill 07/27/2024 Reason Onset Date Comments Medication Refill 10/02/2024 Reason Comments Sinus Problem Pt states sinus pres sure, congestion, and change in color of mucus. Pt states sx started Wednesday. Care Teams (unrecognized sec tion and content) Air Intelligence Officer Relationship Specialty Start Date End Date Anand Cooley DO PCP - General Family Medicine 04/21/17 Air Intelligence Officer Relationship Specialty Start Date End Date Anand Cooley DO PCP - General Family Medicine 04/21/17 Air Intelligence Officer Relationship Specialty Start Date End Date Anand Cooley DO PCP - General Family Medicine 04/21/17 Air Intelligence Officer Relationship Specialty Start Date End Date Anand Cooley DO PCP - General Family Medicine 04/21/17 Air Intelligence Officer Relationship Specialty Start Date End Date Anand Cooley, DO PCP - General Family Medicine 04/21/17 Air Intelligence Officer Relationship Specialty Start Date End Date Anand Cooley DO PCP - General Family Medicine 04/21/17 Air Intelligence Officer Relationship Specialty Start Date End Date LenoraAnand, DO PCP - General Family Medicine 04/21/17 Air Intelligence Officer Relationship Specialty Start Date End Date LenoraAnand DO PCP - General Family Medicine 04/21/17 Air Intelligence Officer Relationship Specialty Start Date End Date LenoraAnand, DO PCP - General Family Medicine 04/21/17 Air Intelligence Officer Relationship Specialty Start Date End Date Anand Cooley, DO PCP - General Family Medicine 04/21/17 Air Intelligence Officer Relationship Specialty Start Date End Date LenoraAnand DO PCP - General Family Medicine 04/21/17 Air Intelligence Officer Relationship Specialty Start Date End Date Татьяна Brooke, DECORATOR [employer] PCP - General Family Medicine 10/11/19 Eunice Del Angel, DEC[employer]ATOR [employer] [address] [place] [address] Nurse Practitioner Obstetrics/Gynecology 02/09/19 Air Intelligence Officer Relationship Specialty Start Date End Date Татьяна Brooke, DEC[employer]ATOR [employer] [address] [place] [address] PCP - General Family Medicine 10/11/19 Eunice Del Angel, DEC[employer]ATOR [employer] [address] [place] [address] Nurse Practitioner Obstetrics/Gynecology 02/09/19 Air Intelligence Officer Relationship Specialty Start Date End Date Anand Cooley DO PCP - General Family Medicine 04/21/17 Air Intelligence Officer Relationship Specialty Start Date End Date Anand Cooley DO PCP - General Family Medicine 04/21/17 Air Intelligence Officer Relationship Specialty Start Date End Date Anand Cooley DO PCP - General Family Medicine 04/21/17 Air Intelligence Officer Relationship Specialty Start Date End Date Anand Coloey DO PCP - General Family Medicine 04/21/17 Air Intelligence Officer Relationship Specialty Start Date End Date Anand Cooley DO PCP - General Family Medicine 04/21/17 Air Intelligence Officer Relationship Specialty Start Date End Date Anand Cooley DO PCP - General Family Medicine 04/21/17 Air Intelligence Officer Relationship Specialty Start Date End Date Татьяна Brooke, DEC[employer]ATOR [employer] [address] [place] [address] PCP - General Family Medicine 10/11/19 Eunice Del Angel, DEC[employer]ATOR [employer] [address] [place] [address] Nurse Practitioner Obstetrics/Gynecology 02/09/19 Air Intelligence Officer Relationship Specialty Start Date End Date Anand Cooley DO PCP - General Family Medicine 04/21/17 Air Intelligence Officer Relationship Specialty Start Date End Date Anand Cooley DO PCP - General Family Medicine 04/21/17 Air Intelligence Officer Relationship Specialty Start Date End Date Mehdi Cooleydelfina PCP - General Family Medicine 04/21/17 Air Intelligence Officer Relationship Specialty Start Date End Date Anand Cooley PCP - General Family Medicine 04/21/17 Air Intelligence Officer Relationship Specialty Start Date End Date Татьяна Brooke, DECORATOR [employer] [address] [place] [address] PCP - General Family Medicine 10/11/19 Eunice Del Angel, MED [address] [place] [address] Nurse Practitioner Obstetrics/Gynecology 02/09/19 Air Intelligence Officer Relationship Specialty Start Date End Date Татьяна Brooke, DECORATOR [employer] [address] [place] [address] PCP - General Family Medicine 10/11/19 Eunice Del Angel, MED [address] [place] [address] Nurse Practitioner Obstetrics/Gynecology 02/09/19 Air Intelligence Officer Relationship Specialty Start Date End Date Anand Cooley DO PCP - General Family Medicine 04/21/17 Air Intelligence Officer Relationship Specialty Start Date End Date Anand Cooley DO PCP - General Family Medicine 04/21/17 Air Intelligence Officer Relationship Specialty Start Date End Date Татьяна Brooke, MED [address] [place] [id number] PCP - General Certified Nurse Practitioner 12/07/23 Air Intelligence Officer Relationship Specialty Start Date End Date Татьяна Brooke, MDE [address] [place] [address] PCP - General Certified Nurse Practitioner 12/07/23 Air Intelligence Officer Relationship Specialty Start Date End Date Татьяна Brooke, DEC[employer]ATOR [employer] [address] [place] [address] PCP - GRICEL Attributed Provider - [employer] 10/14/23 09/12/50 Keyla Meneses, DEC[employer] [address] [place] [address] PCP - General Family Medicine 03/06/24 Eunice Del Angel, DEC[employer] [address] [place] [address] Nurse Practitioner Obstetrics/Gynecology 02/09/19 Air Intelligence Officer Relationship Specialty Start Date End Date Татьяна Brooke, DECORATOR [employer] [address] [place] [address] PCP - GRICEL Attributed Provider - [employer] 10/14/23 09/12/50 Keyla Meneses, DEC[employer]ATOR [employer] [address] [place] [address] PCP - General Family Medicine 03/06/24 Eunice Del Angel, DEC[employer]ATOR [employer] [address] [place] [address] Nurse Practitioner Obstetrics/Gynecology 02/09/19 Air Intelligence Officer Relationship Specialty Start Date End Date Татьяна Brooke, DECORATOR [employer] [address] [place] [address] PCP - GRICEL Attributed Provider - [employer] 10/14/23 09/12/50 Keyla Meneses, DEC[employer] [address] [place] [address] PCP - General Family Medicine 03/06/24 Eunice Del Angel, DEC[employer]ATOR [employer] [address] [place] [phone] Nurse Practitioner Obstetrics/Gynecology 02/09/19 Air Intelligence Officer Relationship Specialty Start Date End Date Татьяна Brooke, DECORATOR [employer] [address] [place] [address] PCP - GRICEL Attributed Provider - [employer] 10/14/23 09/12/50 Keyla Meneses, DEC[employer] [address] [place] [address] PCP - General Family Medicine 03/06/24 Eunice Del Angel, MED [address] [place] [address] Nurse Practitioner Obstetrics/Gynecology 02/09/19 Air Intelligence Officer Relationship Specialty Start Date End Date Татьяна Brooke, DECORATOR [employer] [address] [place] [address] PCP - GRICEL Attributed Provider - [employer] 10/14/23 09/12/50 Keyla Meneses, DEC[employer]ATOR [employer] [address] [place] [address] PCP - General Family Medicine 03/06/24 Eunice Del Angel, DEC[employer] [address] [place] [address] Nurse Practitioner Obstetrics/Gynecology 02/09/19 Air Intelligence Officer Relationship Specialty Start Date End Date Татьяна Brooke, DECORATOR [employer] [address] [place] [address] PCP - GRICEL Attributed Provider - [employer] 10/14/23 09/12/50 Keyla Meneses, MED [address] [place] [address] PCP - General Family Medicine 03/06/24 Eunice Del Angel, MED [facility] [address] [place] [address] Nurse Practitioner Obstetrics/Gynecology 02/09/19 Air Intelligence Officer Relationship Specialty Start Date End Date Татьяна Brooke, MED [address] [place] [address] PCP - GRICEL Attributed Provider - [employer] 10/14/23 09/12/50 Keyla Meneses, MED [address] [place] [address] PCP - General Family Medicine 03/06/24 Eunice Del Angel, MED [facility] [address] [place] [address] Nurse Practitioner Obstetrics/Gynecology 02/09/19 Air Intelligence Officer Relationship Specialty Start Date End Date Anand Cooley DO [address] [place] [address] PCP - General 01/31/14 Air Intelligence Officer Relationship Specialty Start Date End Date Keyla Meneses, MED [address] [place] [address] PCP - General Family Medicine 03/06/24 Eunice Del Angel, DEC[employer] [address] [facility] [place] [address] Nurse Practitioner Obstetrics/Gynecology 02/09/19 Team Status: Active Member Role Status Dates Keyla Meneses SALES INCENTIVE ANALYST-C Primary Care Provider Active Team Status: Inactive Member Role Status Dates Keyla Meneses NP-C Primary Care Provider Active Start: January 02, 2025 End: January 02, 2025 Keyla Meneses NP-C Referring Provider Active Start: January 02, 2025 End: January 02, 2025 Emma Valenzuela NP, SALES INCENTIVE ANALYST-C Attending Provider Active Start: January 02, 2025 End: January 02, 2025 Team Status: Inactive Member Role Status Dates Keyla Meneses NP-C Primary Care Provider Active Start: January 18, 2025 End: January 18, 2025 Keyla Meneses NP-C Referring Provider Active Start: January 18, 2025 End: January 18, 2025 Nel Ruff CNM Attending Provider Active S tart: January 18, 2025 End: January 18, 2025 Team Status: Inactive Member Role Status Dates Keyla Meneses NP-C Primary Care Provider Active Start: January 18, 2025 End: January 18, 2025 Nel Ruff CNM Attending Provider Active S tart: January 18, 2025 End: January 18, 2025 Nel Ruff CNM Referring Provider Active S tart: January 18, 2025 End: January 18, 2025 Team Status: Inactive Member Role Status Dates Keyla Meneses NP-C Primary Care Provider Active Start: March 01, 2025 End: March 01, 2025 Keyla Meneses NP-Luna Referring Provider Active Start: March 01, 2025 End: March 01, 2025 Dr. Emmanuelle Contreras DO Attending Provider Activ e Start: March 01, 2025 End: March 01, 2025 Scheduled Active and Recently Administ ered Medications (unrecognized section and content) Medication Order 08/11/2022 08/12/2022 08/13/2022 ferrous sulfate tablet 325 mg 325 mg, Oral, DAILY, First dose on Wed08/12/22 at 0900, Until Discontinued, If hemoglobin is below 10 gm/dl, Post-op/Post-Proc 0908 (Not Given - Provider: Laureen Garza RN - Reason: Order Parameters not met) 0814 (Not Given - Provider: Janes Mcgovern, NEGRO - Reason: Order Parameters not met) measles, mumps and rubella vaccine (MMR II) injection 0.5 mL 0.5 mL, Subcutaneous, PRIOR TO DISCHARGE, 1 dose, Starting on Wed08/11/22 at 2033, Until Kandi 08/13/22 at 2027, On day of discharge if indicated per vaccination status., Post-op/Post-Proc vitamin (TRINATAL RX) 60-1 MG tablet 1 tablet 1 tablet, Oral, DAILY, First dose on Wed08/12/22 at 0900, Until Discontinued, Post-op/Post-Proc 0945 (Given - Provider: Laureen Garza RN) 0823 (Given - Provider: Janes Mcgovern, NEGRO) Varicella Virus Vaccine Live (VARIVAX) injection 1,350 Units 1,350 Units (0.5 mL), Subcutaneous, PRIOR TO DISCHARGE, 1 dose, Starting on Wed08/11/22 at 203, Until Kandi 08/13/22 at 2027, On day of discharge if indicated per vaccination status., Post-op/Post-Proc Continuous Medication Order 08/11/2022 08/12/2022 08/13/2022 dextrose 5% and sodium chloride 0.45% IV solution Intravenous, at 125 mL/hr, CONTINUOUS, Starting on Wed08/12/22 at 0115, Until Kandi 08/13/22 at 2027, Post-op/Post-Proc 0115 (Canceled Entry - Provider: System Discharge - Comment: Automatically canceled at discontinue of medication order) oxytocin (PITOCIN) 20 Units in lactated ringers 1,000 mL IV infusion (CANCELED) 0-40 sophie-units/min (0-120 mL/hr), Intravenous, CONTINUOUS, Starting on Wed08/11/22 at 0415, Until Wed08/11/22 at 1800, Initiate at 2 sophie-units/min, titrate by 2 sophie-units/min every 15 min based on assessment of uterine and response, until effective labor pattern is established. Labor is defined as uterine contractions every 2-3 minutes resulting in cervical change (dilatation and/or effacement) not to exceed 5 contractions in 10 minutes averaged over a 30 minute timeframe. Notify physician if rate reaches 40 sophie-units/min. For uterine tachysystole accompanied by the following FHR tracings: category 1: maintain current rate and contact physician category 2: contact physician for titration instructions category 3: turn off oxytocin and initiate intrauterine resuscitation orders, notify physician immediately to obtain further order instructions. For intrauterine resuscitation due to the following FHR tracings: category 2: contact physician for titration instructions category 3: turn off oxytocin and initiate intrauterine resuscitation orders, notify physician immediately to obtain further order instructions., Pre-op/Pre-Proc 0508 ($$New Bag$$ - Provider: Anusha Tadda)0523 (Rate/Dose Change - Provider: Anusha Tadda)0538 (Rate/Dose Change - Provider: Anusha Tadda)0553 (Rate/Dose Change - Provider: Anusha Tadda)0608 (Rate/Dose Change - Provider: Anusha Tadda)0623 (Rate/Dose Change - Provider: Anusha Tadda)0638 (Rate/Dose Change - Provider: Margot Arana RN)0720 (Rate/Dose Change - Provider: Citlaly Savage RN)0833 (Rate/Dose Change - Provider: Citlaly Savage RN)1008 (Rate/Dose Change - Provider: Citlaly Savage RN)1121 (Rate/Dose Change - Provider: Citlaly Savage, RN)1438 (Paused - Provider: Citlaly Savage, RN)1501 (Restarted - Provider: Janeth Macdonald, RN)1621 (Rate/Dose Change - Provider: Janeth Macdonald, RN)1636 (Rate/Dose Change - Provider: Janeth Macdonald, RN)1651 (Rate/Dose Change - Provider: Citlaly Savage, RN)1709 (Rate/Dose Change - Provider: Citlaly Savage, RN)1736 (Stopped - Provider: Ctilaly Savage RN) ropivacaine (NAROPIN) 0.2% epidural infusion (CANCELED) Epidural, CONTINUOUS, Starting on Wed08/11/22 at 1315, Until Wed08/11/22 at 1800, Intra-op/Intra-Proc 1256 ($$New Bag$$ - Provider: Daniel Tobar APRN-ACID FILLER)1633 (Rate/Dose Change - Provider: Daniel Tobar APRN-ACID FILLER)1754 (Stopped - Provider: Citlaly Savage RN) sodium chloride 0.9% IV solution 125 mL (CANCELED) 125 mL, Intravenous, CONTINUOUS, Starting on Wed08/11/22 at 0515, Until Wed08/11/22 at 1800 0509 ($$New Bag$$ - Provider: Anusha Voss)0525 (Rate/Dose Change - Provider: Anusha Voss)0539 (Rate/Dose Change - Provider: Anusha Tadjourdan)0553 (Rate/Dose Change - Provider: Anusha Tadda)0608 (Rate/Dose Change - Provider: Anusha Voss)0623 (Rate/Dose Change - Provider: Anusha Voss)0640 (Rate/Dose Change - Provider: Margot Arana RN)0727 (Rate/Dose Change - Provider: Citlaly Savage, NEGRO)0834 (Rate/Dose Change - Provider: Citlaly Savage, RN)1009 (Rate/Dose Change - Provider: Citlaly Savage, RN)1121 (Rate/Dose Change - Provider: Citlaly Savage, RN)1502 (Rate/Dose Change - Provider: Citlaly Savage, RN)1830 (Stopped - Provider: Citlaly Savage, RN) PRN Medication Order 08/11/2022 08/12/2022 08/13/2022 acetaminophen (TYLENOL) tablet 325-650 mg 325-650 mg, Oral, EVERY 3 HOURS NEEDED, Starting on Wed08/11/22 at 2032, Until Kandi 08/13/22 at 2027, Mild Pain, Unless contraindicated use Ibuprofen first., Post-op/Post-Proc Benzocaine-Menthol (DERMOPLAST) 20-0.5 % topical spray 1 spray 1 spray, Topical, NEEDED, Starting on Wed08/11/22 at 2032, Until Wed08/13/22 at 2027, Mild Pain, To episiotomy and/or hemorrhoids. , Post-op/Post-Proc bisacodyl (DULCOLAX) tablet DR 10 mg 10 mg, Oral, DAILY NEEDED, Starting on Wed08/11/22 at 2032, Until Wed08/13/22 at 2027, Constipation 1st Line, Post-op/Post-Proc 0823 (Given - Provider: Janes Mcgovern, NEGRO) diphenhydrAMINE (BENADRYL) tablet 25 mg 25 mg, Oral, EVERY 6 HOURS NEEDED, Starting on Wed08/11/22 at 2032, Until Kandi 08/13/22 at 2027, Itching, Post-op/Post-Proc docusate (COLACE) capsule 100 mg 100 mg, Oral, 2 TIMES DAILY NEEDED, Starting on Wed08/11/22 at 2032, Until Kandi 08/13/22 at 2027, Constipation 1st Line, for 3rd or 4th degree perineal lacerations, or as needed to soften stool., Post-op/Post-Proc ibuprofen (MOTRIN) tablet 800 mg 800 mg, Oral, EVERY 6 HOURS NEEDED, Starting on Wed08/11/22 at 2032, Until Kandi 08/13/22 at 2027, Mild Pain, Post-op/Post-Proc 2100 (Given - Provider: Nichelle Smith RN) 0946 (Given - Provider: Laureen Garza RN) 0057 (Given - Provider: Eneida Wright, NEGRO)0823 (Given - Provider: Janes Mcgovern, NEGRO) lactated ringers IV solution 1,000 mL (COMPLETED) 1,000 mL, Intravenous, ADMINISTER DIRECTED, 1 dose, Starting on Wed08/11/22 at 0408, Until Wed08/11/22 at 1335, Other, For intrauterine resuscitation AND / OR prior to placement of epidural, Pre-op/Pre-Proc 1228 ($$New Bag$$ - Provider: Citlaly Savage, NEGRO)1335 (Stopped - Provider: Citlaly Savage, RN) lanolin (MEDELA [employer]ER [employer]) cream 1 Application Topical, NEEDED, Starting on Wed08/11/22 at 2032, Until Wed08/13/22 at 2027, per protocol, To nipples after as needed for discomfort., Post-op/Post-Proc 0050 (Given - Provider: Eneida Wright RN) nalbuphine (NUBAIN) injection 5-10 mg (CANCELED) 5-10 mg, Intravenous, EVERY 3 HOURS NEEDED, 2 doses, Starting on Wed08/11/22 at 0408, Until Wed08/11/22 at 1800, Moderate Pain, Pre-op/Pre-Proc 1212 (Given - Provider: Citlaly Savage, NEGRO) oxytocin (PITOCIN) bolus from the bag 20 Units 20 Units, Intravenous, ADMINISTER DIRECTED, 2 doses, Starting on Wed08/11/22 at 0408, Until Wed08/13/22 at 2027, Other, See admin instructions, After delivery of placenta, initiate an oxytocin bolus of 20,000 sophie-units infused over 60 minutes (330 sophie-units/min), from the oxytocin 20 units in 1,000 mL Lactated Ringers IV bag. May repeat x1 for bleeding., Pre-op/Pre-Proc 175 (Bolus by Bag/Pump - Provider: Citlaly Savage RN) zolpidem (AMBIEN) tablet 5 mg 5 mg, Oral, DAILY AT BEDTIME NEEDED, Starting on Wed08/11/22 at 2033, Until Wed08/13/22 at 2027, Sleep, Post-op/Post-Proc <item><item> Privacy Markings (unrecogniz ed section and content) Section Author: Terese Godinez PROHIBITION ON REDISCLOSURE OF CONFIDENTIAL INFORMATION This notice accompanies a disclosure of information concerning a client made to you with the consent of such client. Section Author: Terese Godinez PROHIBITION ON REDISCLOSURE OF CONFIDENTIAL INFORMATION This notice accompanies a disclosure of information concerning a client made to you with the consent of such client. Goals (unrecognized section and content) Goals may be documented in a n alternate sectionGoals may be documented in an alternate section FOR RECORDS PERTAINING TO PATIENTS WHO ARE OR HAVE BEEN ENROLLED IN A CHEMICAL DEPENDENCY/SUBSTANCEABUSE PROGRAM, SOME INFORMATION MAY BE OMITTED. This clinical summary was aggregated from multiple sources. Caution should be exercised in using it in the provision of clinical care. This summary normalizes information from multiple sources, and as a consequence, information in this document may materially change the coding, format and clinical context of patient data. In addition, data may be omitted in some cases. CLINICAL DECISIONS SHOULD BE BASED ON THE PRIMARY CLINICAL RECORDS. [employer] provides no warranty or guarantee of the accuracy or completeness of information in this document.
[2025-03-01 16:30] LABS: Hemoglobin A1c 5.2 % (<=5.6)
[2025-03-01 16:51] LABS: HIV Nonreactive (Nonreactive); Hepatitis B Surface Antigen Nonreactive (Nonreactive); Hepatitis C Antibody Nonreactive (Nonreactive); Syphilis Antibodies Nonreactive (Nonreactive)
[2025-03-01 17:08] LABS: Rubella IgG REAC (Nonreactive)
== END | disposition home or self-care (01) ==
LOC: LAB 13:55
PROVIDERS: PCP Nurse Practitioner; Referring Provider Advanced Practice Midwife; Visit Provider Advanced Practice Midwife
DX: O09.91 Supervision of high risk pregnancy, unspecified, first trimester (principal); Z3A.00 Weeks of gestation of pregnancy not specified; Z86.32 Personal history of gestational diabetes
CPT/HCPCS: 36415; 83036; 85025; 86703; 86762; 86780; 86803; 86850; 86900; 86901; 87340

== ENCOUNTER → 2025-06-13 | Outpatient (CLI) | payer BC, SELFPAY ==
[2025-06-13 16:38] LABS: Hematocrit 36.0 % (37-47); Hemoglobin 12.0 g/dL (12.0-15.0); Immature Granulocytes Count 0.050 X10^3/uL (0.0-0.0); Mean Corp Hgb Conc 33.3 g/dL (32-36); Mean Corpuscular Volume 87.0 fL (81-99); Mean Platelet Vol. 10.3 fl (6.2-12.0); NRBC Flagged by Analyzer 0 % (0-5); Platelet Count 258 K/mm3 (150-450); RBC Distribution Width CV 13.4 % (11.6-14.6); RBC Distribution Width SD 41.7 fl (35.1-43.9); Red Blood Count 4.14 M/mm3 (4.2-5.4); White Blood Count 10.0 K/mm3 (4.4-11.0)
[2025-06-13 17:58] LABS: Glucose Challenge Gest 1H 50g 166 mg/dL (70-140); HIV Nonreactive (Nonreactive); Syphilis Antibodies Nonreactive (Nonreactive)
== END | disposition home or self-care (01) ==
PROVIDERS: PCP Nurse Practitioner; Referring Provider Nurse Practitioner Women's Health; Visit Provider Nurse Practitioner Women's Health
DX: O09.91 Supervision of high risk pregnancy, unspecified, first trimester (principal); Z3A.00 Weeks of gestation of pregnancy not specified; Z13.1 Encounter for screening for diabetes mellitus
CPT/HCPCS: 36415; 82950; 85025; 86703; 86780

== ENCOUNTER → 2025-07-13 | Outpatient (CLI) | payer BC, SELFPAY ==
--- NOTE | 2025-07-13 12:48 | US_ITS ---
PROCEDURE: OB LIMITED WITH BIOMETRICS 07/13/2025 REASON FOR EXAM: 32WK GROWTH SCAN TECHNIQUE: Procedure Code: [id number] Modality: US Procedure: OB LIMITED WITH BIOMETRICS COMPARISON: None available. FINDINGS Number: 1 Position: vertex Placental Position: posterior Grade 1 DIMENSIONS: Biparietal Diameter: 8 cm / 32 weeks and 2 days Head Circumference: 29.9 cm / 33 weeks and 1 day Abdominal Circumference: 28.4 cm / 32 weeks and 3 days Femur Length: 6 cm / 31 weeks and 3 days ESTIMATED WEIGHT: 1922 g ESTIMATED WEIGHT PERCENTILE (24+ weeks): 32.8% tile ESTIMATED GESTATIONAL AGE: Baseline: 32 weeks and 3 days By Ultrasound: 32 weeks and 1 day ESTIMATED DATE OF DELIVERY: Baseline: September 04, 2025 By Ultrasound: September 06, 2025 BIOPHYSICAL ASSESSMENT: Amniotic Fluid Volume: Adequate Amniotic Fluid Index: 13.6 cm (8-24 cm normal range) Cardiac Motion: 136 beats per minute (average) MATERNAL ANATOMY: Adnexa: Neither maternal ovary is successfully identified. Cervical Length (if measured): 3.8 cm. US/OB Limited With Biometrics IMPRESSION: 1. Single living intrauterine gestation at 32 weeks and 3 days in the vertex p resentation. 2. Posterior placenta. 3. heart rate of 136 bpm. Reading Location: [id number]
== END | disposition home or self-care (01) ==
LOC: US 12:46
PROVIDERS: PCP Nurse Practitioner; Referring Provider Advanced Practice Midwife; Visit Provider Advanced Practice Midwife
DX: O99.810 Abnormal glucose complicating pregnancy (principal); Z3A.00 Weeks of gestation of pregnancy not specified
CPT/HCPCS: 76816

== ENCOUNTER → 2025-08-06 | Outpatient (CLI) | payer BC, SELFPAY | END | disposition home or self-care (01) | LOC: LABSPEC 12:07 | PROVIDERS: PCP Nurse Practitioner; Visit Provider Nurse Practitioner Women's Health | DX: O09.93 Supervision of high risk pregnancy, unspecified, third trimester (principal); Z3A.00 Weeks of gestation of pregnancy not specified | CPT/HCPCS: 87081 ==

== ENCOUNTER 2025-08-08 16:00 | Outpatient (CLI) | payer BC, SELFPAY ==
[2025-08-08 16:12] VITALS: BP 124/69; PULSE 94; PULSE 96; O2SAT 97
[2025-08-08 16:14] VITALS: RESP 14; TEMP 36.6; O2SAT 97
[2025-08-08 16:24] VITALS: BMI 31.7
--- OUTSIDE RECORDS SUMMARY | 2025-08-08 16:24 | XMS RPT_ITS | CCD ---
Author Organization [facility] Care Team Providers Care Gang Ripsaw Operator Name Role Phone Anand Cooley Unavailable Aisha, Michael Unavailable Unavailable Aisha, Michael Unavailable Unavailable ANAND COOLEY Primary Care Unavailable Anand Cooley Primary Care Provider Eunice Moreno Unavailable Татьяна Brooke Primary Care Provider Anand Cooley DO Primary Care Provider Eunice Del Angel CNP Unavailable [phone] Татьяна Brooke CNP Primary Care Provider [phone] Татьяна Brooke CNP Primary Care Provider [phone] Anand Cooley DO Primary Care Provider [phone] Anand Cooley Unavailable Marie Mario Unavailable Unavailable [place], Ms. Marie Goldman Attending Unavailable Dr. Anand Cooley Primary Care Unavail able Dr. Anand Cooley Primary Care Unavail able Fabiano, Ms. Marie Goldman Attending Unavailable Eunice Del Angel CNPanne Unavailable Татьяна Brooke CNP Primary Care Provider [phone] Anand Cooley DO Primary Care Provider Татьяна Brooke CNP Primary Care Provider AMY CHI Attending Unavailable EDWARDO, ТАТЬЯНА Primary Care Unavailable SELF, SELF Referring Unavailable LENORA, ANAND Primary Care Unavailable LEMUEL LEE Attending Unavailable LEMUEL LEE Referring Unavailable LENORA, ANAND Primary Care Unavailable GREEN, PALLAVY Attending Unavailable GREEN, PALLAVY Referring Unavailable LENORA, ANAND Primary Care Unavailable JELENA WALTER Attending Unavailable SELF, SELF Referring Unavailable SELF, SELF Referring Unavailable CHIMAHENDRAAMY Attending Unavailable EDWARDO, ТАТЬЯНА Primary Care Unavailable GREEN, PALLAVY Attending Unavailable GREEN, PALLAVY Referring Unavailable EDWARDO, ТАТЬЯНА Primary Care Unavailable SELF, SELF Referring Unavailable LENORA, ANAND Primary Care Unavailable CHIMAHENDRAAMY Attending Unavailable LENORA, ANAND Primary Care Unavailable LENORA, ANAND Primary Care Unavailable MINO SCHNEIDER Attending Unavailable EJ SCHNEIDERON Referring Unavailable Edwardo JOVEL, Татьяна Gallagher. Unavailable Keyla Meneses CNP Primary Care Provider KEYLA MENESES Primary Care Unavailabl e KEYLA MENESES LONNAE Admitting Unavailabl e FELIZ MENESESL LONNAE Primary Care Unavailabl e Lenora DO, Anand Edmond Primary Care Provider LENORA, ANAND EDMOND Primary Care Unavailable ANTONIO LOPEZ Attending Unavailable Gideon NUTRITIONAL HEALTH COACH-CFelizl L Primary Care Provider Gideon NUTRITIONAL HEALTH COACH-CFelizl L Referring Provider Emma Wyatt Attending Provider Nel Ruff CNM Attending Provider [phone] Nel Ruff CNM Referring Provider Dr. Emmanuelle Contreras DO Attending Provider Dr. Ayala Thompson MD Attending Provider Gideon NUTRITIONAL HEALTH COACH-CKeyla Primary Care Provider Gideon NICOLE-CKeyla Referring Provider Nel Ruff CNM Attending Provider Nel Ruff CNM Referring Provider Emma Wyatt Attending Provider iGdeon NUTRITIONAL HEALTH COACH-C, Keyla L Primary Care Physician Dr. Emmanuelle Contreras DO Attending Physician Nel Ruff CNM Attending Physician [phone] Jay GREER, Dr. Cai Attending Physician Bianca NUTRITIONAL HEALTH COACH-CEmma Attending Physician [phone] Bianca NUTRITIONAL HEALTH COACH-CEmma Referring Provider [phone] EMMANUELLE HERNÁNDEZ Referring Unavailab le DOC, [facility] [place] Primary Care Unavailable MALENA LINCOLN Attending Unavailable ROSHNI DAVIDSON Attending Unavailable DOC, [facility] Primary Care Unavailable EMMANUELLE HERNÁNDEZ Referring Unavailab le Gideon NUTRITIONAL HEALTH COACH-C, Keyla L Primary Care Physician Gideon NUTRITIONAL HEALTH COACH-C, Keyla L Referring Provider Nel Ruff CNM Attending Physician [phone] Dr. Emmanuelle Contreras DO Attending Physician GIDEON, KEYLA LONNAE Primary Care Unavailabl e GEHLOT, UPENDER Attending Unavailable GIDEON, KEYLA LONNAE Primary Care Unavailabl e GEHLOT, UPENDER Attending Unavailable GEHLOT, UPENDER Attending Unavailable GIDEON, KEYLA LONNAE Primary Care Unavailabl e GIDEON, KEYLA LONNAE Primary Care Unavailabl e GIDEON, KEYLA LONNAE Attending Unavailabl e GIDEON KEYLA LONNAE Attending Unavailabl e GIDEON, KEYLA LONNAE Primary Care Unavailabl e GIDEON, KEYLA LONNAE Primary Care Unavailabl e GIDEON, KEYLA LONNAE Attending Unavailabl e GIDEON, KEYLA LONNAE Primary Care Unavailabl e GIDEON, KEYLA LONNAE Attending Unavailabl e Gideon, Keyla L Primary Care Unavailable Gideon, Keyla L Referring Unavailable Emma Valenzuela Attending Unavailable Emmanuelle Contreras Attending Unavailabl e Gideon, Keyla L Primary Care Unavailable Gideon, Keyla L Referring Unavailable Gideon, Keyla L Primary Care Unavailable Gideon, Keyla L Referring Unavailable Nel Ruff Attending Unavailable Gideon, Keyla L Referring Unavailable Emmanuelle Contreras Attending Unavailabl e Gideon, Keyla L Primary Care Unavailable Emma Valenzuela Attending Unavailable Gideon, Keyla L Primary Care Unavailable Gideon, Keyla L Referring Unavailable Emmanuelle Contreras Attending Unavailabl e Gideon, Keyla L Primary Care Unavailable Gideon, Keyla L Referring Unavailable Gideon, Keyla L Primary Care Unavailable Gideon, Keyla L Referring Unavailable Nel Ruff Attending Unavailable Emmanuelle Contreras Attending Unavailabl e Gideon, Keyla L Primary Care Unavailable Gideon, Keyla L Referring Unavailable Gideon, Kyela L Primary Care Unavailable Nel Ruff Attending Unavailable Gideon, Keyla L Referring Unavailable Gideon, Keyla L Primary Care Unavailable Ayala Thompson Attending Unavailable Gideon, Keyla L Referring Unavailable Gideon, Keyla L Referring Unavailable Gideon, Keyla L Primary Care Unavailable Ayala Thompson Attending Unavailable Gideon, Keyla L Referring Unavailable Gideon, Keyla L Primary Care Unavailable Emma Valenzuela Attending Unavailable Gideon, Keyla L Referring Unavailable Gideon, Keyla L Primary Care Unavailable Nel Ruff Attending Unavailable Gideon, Keyla L Primary Care Unavailable Gideon, Keyla L Referring Unavailable Nel Ruff Attending Unavailable Gideon, Keyla L Primary Care Unavailable Nel Ruff Referring Unavailable Nel Ruff Attending Unavailable Gideon, Keyla L Primary Care Unavailable Nel Ruff Attending Unavailable Nel Ruff Referring Unavailable Gideon, Keyla L Primary Care Unavailable Nel Ruff Referring Unavailable Nel Ruff Attending Unavailable Gideon, Keyla L Primary Care Unavailable Nel Ruff Referring Unavailable Nel Ruff Attending Unavailable Emma Valenzuela Attending Unavailable Gideon, Keyla L Primary Care Unavailable Emma Valenzuela Referring Unavailable Medications Current Medications Medication Drug Class(es) Dates Sig (Normalized) Sig (Original) [id number] 200 actuat albuterol 0.09 mg/actuat metered dose [...] w/Device Kit As directed. 0 06/11/2022 Active Blood-Glucose Sensor (Dexcom G7 Sensor) device (1 source) Start: 06-28-2025 Blood-Glucose Sensor (Dexcom G7 Sensor) device Active 0 .Route 1 June 28, 2025 12:00am As directed Blood-Glucose,Receive r,Cont (Dexcom G7 Behavior Interventionist) misc (1 source) Start: 06-28-2025 Blood-Glucose,Recei mela,Cont (Dexcom G7 Behavior Interventionist) misc Active 0 .Route 1 June 28, 2025 12:00am As directed brompheniramine maleate 0.4 mg/ml / dextromethorphan hydrobromide 2 mg/ml / pseudoephedrine hydrochloride 6 mg/ml oral solution (2 sources) alpha-Adrenergic Agonist, Uncompetitive Q-hjkpnh-G-asparta te Receptor Antagonist, Sigma-1 Agonist Start: 11-09-2024 End: 11-19-2024 take 5 mL by mouth once daily at bedtime brompheniramine-pse udoeph-DM 2-30-10 mg/5 mL syrup Indications: Acute rhinosinusitis Take 5 mL by mouth once daily at bedtime for 10 days. 120 mL 11/09/2024 11/19/2024 Active Start: 01-07-2023 take 5 mL by mouth every four hours brompheniramine/dextromethorphan/pseudoe phedrine 2 mg-10 mg-30 mg/5 mL oral syrup ; 5 milliliter(s) orally every 4 hours Quantity: 120 Refills: 0 Ordered: 07-Jan-2023 Fabiano Marie Start: 07-Jan-2023 Generic Substitution Allowed Comments: [...] hours Quantity: 1 Refills: 0 Ordered: 07-Jan-2023 Fabiano Marie Start: 07-Jan-2023 Generic Substitution Allowed Comments: [...] oral tablet (4 sources) alpha-Adrenergic Agonist, Uncompetitive T-ingqjh-N-aspartate Receptor Antagonist, Sigma-1 Agonist Start: 2023 take [...] . 30 tablet 11 07/21/2023 09/01/2023 Discontinued famotidine 20 mg oral tablet (3 sources) Histamine-2 Receptor Antagonist Start: 2024 famotidine (PEPCID) 20 MG tablet 1 (one) tablet (20 mg total) as needed . 06/13/2025 Active FLUoxetine 10 mg oral capsule (8 sources) [...] INTRAUTERINE DEVICE, IUD, UTRN (1 source) INTRAUTERINE DEV ICE, IUD, UTRN by Intrauterine route. Active ipratropium [...] Active isopropyl alcohol 0.7 ml/ml medicated pad (19 sources) Start: 06-18-2025 Start: 06-11-2022 Alcohol Swabs (Alcohol Wipes) 70 % Pads To be used to check blood sugar 100 Each 3 06/11/2022 Active lamoTRIgine 200 mg oral tablet (17 sources) Mood Stabilizer, Anti-epileptic Agent Start: 07-27-2024 End: 03-26-2025 take 1 tablet by mouth once daily lamoTRIgine (LAMICTAL) 200 MG tablet Take 1 (one) tablet (200 mg total) by mouth daily Monitor for rash/fever . 30 tablet 2 06/26/2025 Active Start: 06-13-2024 End: 07-27-2024 lamoTRIgine (LAMICTAL) [...] 1.8 milligram subcutaneously daily 0 05/04/2021 Active Multiple Vitamins-Minerals (WOMENS MULTIVITAMIN PO) (3 sources) Multiple Vitamin s-Minerals (WOMENS MULTIVITAMIN PO) Take by mouth. Active multivitamin (THERAGRAN) per tablet (14 sources) take 1 tablet by mouth once [...] unless otherwise directed by your doctor. Pnv No.525-Zn-Of7-Dha -Epa-Fish 400 mcg-35 mg- 25 mg-5 mg tablet,chewable (8 sources) Start: 01-11-2025 Start: 01-11-2025 Pnv No.153-Fa- Xv7-Pwc-Ytz-Fish 400 mcg-35 mg- 25 mg-5 mg tablet,chewable [...] vitamin Quantity: 0 Refills: 0 Ordered: 31-Dec-2022 Vladykina, Kalee Generic Substitution Allowed vitamin with Ca-Iron-FA 27-1 mg Tab (6 sources) take 1 tablet by maribell th once daily vitamin with Ca-Iron-FA 27-1 mg Tab Take 1 (one) tablet by mouth daily . Active End: 09-01-2023 take 1 tablet by mouth once daily vitamin with Ca-Iron-FA 27-1 mg Tab Take 1 (one) tablet by mouth daily . 0 09/01/2023 Discontinued take 1 tablet by maribell th once daily vitamin with Ca-Iron-FA 27-1 mg [...] Quant ity: 0 Refills: 0 Ordered: 31-Dec-2022 Kalee Simeon Generic Substitution Allowed citalopram 10 mg oral [...] mg docosahexaenoic acid 200 mg oral capsule (8 sources) Start: 01-02-2025 End: 01-11-2025 Docosahexaenoic Acid [...] lanolin (MEDELA TENDER CARE) cream 1 Application 24 hr metFORMIN hydrochloride 500 mg extended release oral tablet (20 sources) Biguanide Start: 01-02-2025 End: 03-30-2025 Metformin 500 mg tablet extended release 24 hr Discontinued 1500 mg PO daily January 02, 2025 12:00am March 30, 2025 3:29pm Start: 06-22-2024 take 4 tablets by mo uth once daily metFORMIN (GLUCOPHAGE-XR) 500 MG 24 hr tablet Take 4 (four) tablets (2,000 mg total) by mouth daily . 06/22/2024 Active Start: 04-02-2023 End: 03-26-2025 take 1 tablet by mouth twice daily metFORMIN (GLUCOPHAGE-XR) 500 MG 24 hr tablet Take 1 (one) tablet (500 mg total) by mouth 2 (two) times a day . 04/02/2023 03/26/2025 Discontinued Start: 04-02-2023 take 4 tablets by mo uth once daily metFORMIN-XR 500 MG Tab SR [...] . 30 tablet 11 10/12/2019 07/21/2022 Discontinued 1 ml nalbuphine hydrochloride 10 mg/ml injection [...] in , diet controlled] Onset: 2 Episodic Comment on above: metformin 500-NSTs a nd growth US at 32 and 36 weeks deliver at 39 Female infertility (1 source) Female infertility associated with anovulation; Translations: [Female infertility associated with anovulation] Chronic Genitourinary symptoms and ill-defined conditions (1 source) Dysuria; Translations: [Dysuria] Episodic Hemorrhage during ; abruptio placenta; placenta previa (14 sources) Low lying placenta; Translations: [Low lying placenta NOS or without hemorrhage, unspecified trimester] Onset: 5 04-27-2025 Episodic Comment on above: follow up 28 weeks Immunizations and screening for infectious disease (1 source) Encounter for immunization; Translations: [Encounter for immunization] Onset: 5 Episodic Inflammation; infection of eye (except that caused by tuberculosis or sexually transmitteddisease) (3 sources) Conjunctivitis; Translations: [Conjunctivitis, unspecified] Onset: 3 01-07-2023 Episodic Influenza (2 sources) Influenza 01-07-2023 Comment on above: FLU SYMPTOMS Malaise and fatigue (3 sources) Fatigue; Translations: [Chronic fatigue, unspecified] Onset: 4 04-06-2024 Chronic Menstrual disorders (1 source) Amenorrhea, unspecified; Translations: [Amenorrhea, unspecified] Onset: 5 Chronic Mood disorders (4 sources) Mood disorder; Translations: [Unspecified mood [affective] disorder] Onset: 5 12-26-2024 Chronic Nutritional deficiencies (20 sources) Vitamin D deficiency; [...] applicable or unspecified] Episodic Other complications of (20 sources) High risk ; Translations: [Supervision of high risk , unspecified, third trimester] Episodic Comment on above: , ASHLEE 09/04/25, [facility], Josue PRR, , ASHLEE 09/04, [facility], Josue PRR, , ASHLEE 09/04, girl [facility], Josue Other complications of (20 sources) History of gestational diabetes mellitus; Translations: [Supervision of with other poor reproductive or obstetric history, unspecified trimester] 01-18-2025 Episodic Comment on above: A1C Other complications of (20 sources) Supervision of with other poor reproductive or obstetric history, unspecified trimester; Translations: [History of forceps delivery in prior , currently ] Onset: 5 01-11-2025 Episodic Other complications of (1 source) Supervision of high risk , unspecified, third trimester; Translations: [Supervision of high risk , unspecified, third trimester] Onset: 5 Episodic Other complications of (1 source) Supervision of high risk , unspecified, first trimester; Translations: [Supervision of high risk , unspecified, first trimester] Onset: 5 Episodic Other endocrine disorders (20 sources) Polycystic ovarian syndrome; Translations: [Polycystic ovary syndrome] Onset: 5 01-18-2025 Chronic Comment on above: on metformin- sees e ndo in [place] on metformin- sees e ndo in [place] . stopped at first visit. Other endocrine disorders (20 sources) Polycystic ovary; [...] Weight gain; Translations: [Weight gain] Episodic Other upper respiratory disease (2 sources) Pain [...] ] Episodic Residual codes; unclassified (1 source) 34 weeks gestation of ; Translations: [34 weeks gestation of ] Onset: 5 Episodic Residual codes; unclassified (1 source) 32 weeks gestation of ; Translations: [32 weeks gestation of ] Onset: 5 Episodic Residual codes; unclassified (1 source) 21 weeks gestation of ; Translations: [21 weeks gestation of ] Onset: 5 Episodic Unclassified (20 sources) Onset: 2 01-14-2022 Unclassified (1 source) Pharyngotonsillitis 12-31-2022 Unclassified (1 source) Cough, unspecified; Translations: [Cough, unspecified] Onset: 3 Unclassified (1 source) Acute cough; Translations: [Acute cough] Onset: 4 Viral infection (2 sources) Viral ear infection; Translations: [Other disorders of ear] 01-07-2023 Episodic Past or Other Problems Problem Classification Problem Date Documented Date Episodic/Chronic Mood disorders (8 sources) Mood disorders Onset: 09-25-2019 Resolved: 03-06-2024 09-25-2019 Other complications of (12 sources) Patient encounter status; Translations: [Maternal care for abnormalities of the heart rate or rhythm, unspecified trimester, not applicable or unspecified] Onset: 08-11-2022 Episodic Other and delivery including normal (20 sources) Normal ; Translations: [Encounter for supervision of normal first , second trimester] Onset: 12-25-2024 Episodic Comment on above: elects NIPT & Marsha r testing elects NIPT & Marsha r testing. Panorama low risk, female. Panorama low risk, f emale. carrier neg. . ntd declined. Other screening for suspected conditions (not mental disorders or infectious disease) (5 sources) Cancer cervix screening status; Translations: [Encounter for screening for malignant neoplasm of cervix] Onset: 07-06-2023 10-26-2023 Episodic Residual codes; unclassified (1 source) 17 weeks gestation of ; Translations: [17 weeks gestation of ] Onset: 03-30-2025 Episodic Residual codes; unclassified (1 source) 10 weeks gestation of ; Translations: [10 weeks gestation of ] Onset: 01-18-2025 Episodic Unclassified (1 source) Acute cough; Translations: [Acute cough] Onset: 09-29-2023 NEGATED: Highlighted row has been ruled out!Unclassified (1 source) No known active problems 01-30-2020 Results Test Name Value Interpretation Reference Range Facility Universal Branch Consultant Office Visit Reporton 07-24-2025 Universal Branch Consultant Office Visit Report [facility] [address], [address] [place] [address] OFFICE VISIT Date of Service: 07/24/25 MR#: [id number] Acct: [id number] Name: DRAKE PETTY Rep #: [id number] : 1995 Provider: BRET Gay ams Age/Sex: 30/F [place] [facility]: Signed Intake Vital Signs 06/13/25 15:26 06/25/25 15:16 07/20/25 13:16 07/24/25 14:13 07/24/25 14:15 Height 5 ft 4 in 5 ft 4 in 5 ft 4 in 5 ft 4 in 5 ft 4 in Weight: 184 lb 8 oz BMI 31.6 BP 123/79 H Intake Visit Reasons: 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 Canvas Products Required: No Is patient in pain?: No Allergies No Known Allergies Allergy (Verified 07/24/25 14:13) Medications ???Medication ???Instructions ???Recorded ???Confirmed ???Type lamotrigine 200 mg tablet 200 mg PO QDAY 01/02/25 07/24/25 H istory PNV 153-FA 400 mcg-om3 35 mg-dha tab PO 01/11/25 07/24/25 History 25 mg-epa 5 mg-fish oil chew tablet famotidine 20 mg tablet (Pepcid) 20 mg PO BID #60 tabs 06/13/2508/07 Rx alcohol swabs (Alcohol Wipes) 200 pad topical .prn #200 ea 06/1807/24/25 Rx blood sugar diagnostic (OneTouch #100 ea 06/18/25 07/24/25 Rx Ultra Test strips) lancets #200 ea 06/18/25 07/24/25 Rx 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 sensor (Dexcom G7 #1 ea 06/28/25 07/24/25 Rx Sensor device) 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,recei mela,cont #1 ea 06/28/25 07/24/25 Rx (Dexcom G7 Behavior Interventionist) metformin 500 mg tablet 500 mg PO DIRECTED 07/24/2508/07 History Last Menstrual Period: 11/09/24 Zika: Zika virus screening: Negative : No PFSH PFSH Medical History Depression with anxiety PCOS (polycystic ovarian syndrome) Surgical History S/P wrist surgery S/P left knee surgery Family History Father Hypertension Mother Depression with anxiety Grandmother Diabetes Maternal Skin cancer, Onset Age: 75 Maternal Grandfather Diabetes Maternal Grandmother Diabetes Paternal Social History adopted: No household members: spouse and children housing: house number of children: 1 current occupational status: employed 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 Date Name GA/Weeks Outcome Route Bth Weight Gen Labor Lgth Anesthesia Del Locatn Provider FOB 08/11/22 [facility] 38 live - full term forceps 6#10oz Male epidural [facility] Delivery Date: 08/11/22 Last Updated by: Joslyn Gregory IOL, GDM HPI 34wk ob/nst Details: DRAKE PETTY is a 30 year old who presents for routine OB visit. OB Visit ASHLEE Calculator Estimated Delivery Date Method Current WG Current Estimate 09/04/25 Ultrasound #1 34w 0d Other Estimates 08/16/25 LMP (Certain) 36w 5d Expected Delivery Route/Plan Labor Preferences- CB/BF classes: no labor support person: Josue labor intervention preferences: [] pain management options preferred: limited but ok if requested epidural cut cord/dad catch: cord : yes PP control planned: discussed discussed possible routes of delivery and associated risks: [] special requests: [] Specific Issue/Plans Covid status: [] Flu vaccine: [] Tdap vaccine: [] Rhogam:NA LARC form signed: yes Problem list reviewed and updated with the most current plan of care details and appropriate orders placed. Relevant counseling for the gestational age provided. Continue routine care and follow up unless otherwise noted in visit notes/problem list details Initial Weight: 162 lb Date -???-???-???-???-?? ?-???-???-???-???-? ??-???-???- EGA Weight BP Urine Pr (more content not included)... Normal [facility] Universal Branch Consultant Office Visit Reporton 07-20-2025 Universal Branch Consultant Office Visit Report [facility] [address], [address] [place] [address] OFFICE VISIT Date of Service: 07/20/25 MR#: [id number] Acct: [id number] Name: DRAKE PETTY Rep #: [id number] : 1995 Provider: Dr. 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 Canvas Products Required: No Is patient in pain?: No Allergies No Known Allergies Allergy (Verified 07/20/25 13:00) Medications ???Medication ???Instructions ???Recorded ???Confirmed ???Type lamotrigine 200 mg tablet 200 mg PO QDAY 01/02/25 07/20/25 H istory PNV 153-FA 400 mcg-om3 35 mg-dha tab PO 01/11/25 07/20/25 History 25 mg-epa 5 mg-fish oil chew tablet famotidine 20 mg tablet (Pepcid) 20 mg PO BID #60 tabs 06/13/2504/06 Rx alcohol swabs (Alcohol Wipes) 200 pad topical .prn #200 ea 06/1807/20/25 Rx blood sugar diagnostic (OneTouch #100 ea 06/18/25 07/20/25 Rx Ultra Test strips) lancets #200 ea 06/18/25 07/20/25 Rx 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 sensor (Dexcom G7 #1 ea 06/28/25 07/20/25 Rx Sensor device) 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,recei mela,cont #1 ea 06/28/25 07/20/25 Rx (Dexcom G7 Behavior Interventionist) metformin 500 mg tablet 500 mg PO BID 07/20/25 07/20/25 Hi story Last Menstrual Period: 11/09/24 Zika: Zika virus screening: Negative : No PFSH PFSH Medical History Depression with anxiety PCOS (polycystic ovarian syndrome) Surgical History S/P wrist surgery S/P left knee surgery Family History Father Hypertension Mother Depression with anxiety Grandmother Diabetes Maternal Skin cancer, Onset Age: 75 Maternal Grandfather Diabetes Maternal Grandmother Diabetes Paternal Social History adopted: No household members: spouse and children housing: house number of children: 1 current occupational status: employed 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 OB Visit ASHLEE Calculator Estimated Delivery Date Method Current WG Current Estimate 09/04/25 Ultrasound #1 33w 3d Other Estimates 08/16/25 LMP (Certain) 36w 1d Expected Delivery Route/Plan Labor Preferences- CB/BF classes: no labor support person: Josue labor intervention preferences: [] pain management options preferred: limited but ok if requested epidural cut cord/dad catch: cord : yes PP control planned: discussed discussed possible routes of delivery and associated risks: [] special requests: [] Specific Issue/Plans Covid status: [] Flu vaccine: [] Tdap vaccine: [] Rhogam:NA LARC form signed: yes Problem list reviewed and updated with the most current plan of care details and appropriate orders placed. Relevant counseling for the gestational age provided. Continue routine care and follow up unless otherwise noted in visit notes/problem list details Initial Weight: 162 lb Date -???-???-???-???-?? ?-???-???-???-???-? ??-???-???- EGA Weight BP Urine Prot -???-???-???-???-?? ?-?? (more content not included)... Normal [facility] Universal Branch Consultant Office Visit Reporton 07-17-2025 Universal Branch Consultant Office Visit Report [facility] Women[facility] [address] [address] OFFICE VISIT Date of Service: 07/17/25 MR#: [id number] Acct: [id number] Name: DRAKE PETTY Rep #: [id number] : 1995 Provider: Dr. Emmanuelle Bello DO Age/Sex: 30/F [place] [facility] [place]: Signed Intake Vital Signs 06/25/25 15:16 07/10/25 10:14 07/13/25 14:28 07/17/25 09:22 Height 5 ft 4 in 5 ft 4 in 5 ft 4 in 5 ft 4 in Weight: 184 lb 8 oz BMI 31.6 BP 118/72 Intake Visit Reasons: 33wk nst only Inspector Canvas Products Required: No Is patient in pain?: No Allergies No Known Allergies Allergy (Verified 07/17/25 09:22) Medications ???Medication ???Instructions ???Recorded ???Confirmed ???Type lamotrigine 200 mg tablet 200 mg PO QDAY 01/02/25 07/17/25 H istory PNV 153-FA 400 mcg-om3 35 mg-dha tab PO 01/11/25 07/17/25 History 25 mg-epa 5 mg-fish oil chew tablet famotidine 20 mg tablet (Pepcid) 20 mg PO BID #60 tabs 06/13/2501/05 Rx alcohol swabs (Alcohol Wipes) 200 pad topical .prn #200 ea 06/1807/17/25 Rx blood sugar diagnostic (OneTouch #100 ea 06/18/25 07/17/25 Rx Ultra Test strips) lancets #200 ea 06/18/25 07/17/25 Rx 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 sensor (Dexcom G7 #1 ea 06/28/25 07/17/25 Rx Sensor device) 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,recei mela,cont #1 ea 06/28/25 07/17/25 Rx (Dexcom G7 Behavior Interventionist) Last Menstrual Period: 11/09/24 Zika: Zika virus screening: Negative : No PFSH PFSH Medical History Depression with anxiety PCOS (polycystic ovarian syndrome) Surgical History S/P wrist surgery S/P left knee surgery Family History Father Hypertension Mother Depression with anxiety Grandmother Diabetes Maternal Skin cancer, Onset Age: 75 Maternal Grandfather Diabetes Maternal Grandmother Diabetes Paternal Social History adopted: No household members: spouse and children housing: house number of children: 1 current occupational status: employed 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 Date Name GA/Weeks Outcome Route Bth Weight Gen Labor Lgth Anesthesia Del Locatn Provider FOB 08/11/22 [place] 38 live - full term forceps 6#10oz Male epidural [facility] Josue Delivery Date: 08/11/22 Last Updated by: Joslyn Gregory IOL, GDM HPI 33wk nst only Details: DRAKE PETTY is a 30 year old who presents for routine OB visit. OB Visit ASHLEE Calculator Estimated Delivery Date Method Current WG Current Estimate 09/04/25 Ultrasound #1 33w 0d Other Estimates 08/16/25 LMP (Certain) 35w 5d Expected Delivery Route/Plan Labor Preferences- CB/BF classes: no labor support person: Josue labor intervention preferences: [] pain management options preferred: limited but ok if requested epidural cut cord/dad catch: cord : yes PP control planned: discussed discussed possible routes of delivery and associated risks: [] special requests: [] Specific Issue/Plans Covid status: [] Flu vaccine: [] Tdap vaccine: [] Rhogam:NA LARC form signed: yes Problem list reviewed and updated with the most current plan of care details and appropriate orders placed. Relevant counseling for the gestational age provided. Continue routine care and follow up unless otherwise noted in visit notes/problem list details Initial Weight: 162 lb Date -???-???-???-???-?? ?-???-???-???-???-? ??-???-???- EGA Weight BP Urine Prot -???-???-???-???-?? ?-???-???-???-???-? ??-???-???- Glucose FHR FuHt Pres Dilation (more content not included)... Normal [facility] OB Limited With Biometricson 07-13-2025 OB Limited With Biometrics [facility] Imaging Services [address] [place] [address] OB Limited With Biometrics MR#: [id number] Acct: [id number] Name: DRAKE PETTY Rep #: [id number] : 1995 F 30 From: Tano Wheeler DO PCP: OLY Maldonado Status: REG CLI Study: OB Limited With Biometrics Date of Exam: 07/13 Exam# [id number] Ordering Dr: Nel Ruff CNM PROCEDURE: OB LIMITED WITH BIOMETRICS 07/13/2025 REASON FOR EXAM: 32WK GROWTH SCAN TECHNIQUE: Procedure Code: [id number] Modality: US Procedure: OB LIMITED WITH BIOMETRICS COMPARISON: None available. FINDINGS Number: 1 Position: vertex Placental Position: posterior Grade 1 DIMENSIONS: Biparietal Diameter: 8 cm / 32 weeks and 2 days Head Circumference: 29.9 cm / 33 weeks and 1 day Abdominal Circumference: 28.4 cm / 32 weeks and 3 days Femur Length: 6 cm / 31 weeks and 3 days ESTIMATED WEIGHT: 1922 g ESTIMATED WEIGHT PERCENTILE (24+ weeks): 32.8% tile ESTIMATED GESTATIONAL AGE: Baseline: 32 weeks and 3 days By Ultrasound: 32 weeks and 1 day ESTIMATED DATE OF DELIVERY: Baseline: September 04, 2025 By Ultrasound: September 06, 2025 BIOPHYSICAL ASSESSMENT: Amniotic Fluid Volume: Adequate Amniotic Fluid Index: 13.6 cm (8-24 cm normal range) Cardiac Motion: 136 beats per minute (average) MATERNAL ANATOMY: Adnexa: Neither maternal ovary is successfully identified. Cervical Length (if measured): 3.8 cm. US/OB Limited With Biometrics IMPRESSION: 1. Single living intrauterine gestation at 32 weeks and 3 days in the vertex presentation. 2. Posterior placenta. 3. heart rate of 136 bpm. Reading Location: [id number] CC: BRET Ruff; OLY Meneses Director Of Workforce Development: Signed Normal [facility] Universal Branch Consultant Office Visit Reporton 07-13-2025 Universal Branch Consultant Office Visit Report [facility]'s [address], [address] [place] [address] OFFICE VISIT Date of Service: 07/13/25 MR#: [id number] Acct: [id number] Name: DRAKE PETTY Rep #: [id number] : 1995 Provider: BRET Gay ams Age/Sex: 30/F [place] [facility] [place]: Signed Intake Vital Signs 06/25/25 15:16 07/10/25 10:14 07/13/25 14:28 Height 5 ft 4 in 5 ft 4 in 5 ft 4 in Weight: 183 lb 1 oz 182 lb 9 oz BMI 31.4 31.3 BP 116/75 110/72 Intake Visit Reasons: 32wk nst only Inspector Canvas Products Required: No Is patient in pain?: No Allergies No Known Allergies Allergy (Verified 07/13/25 14:27) Medications ???Medication ???Instructions ???Recorded ???Confirmed ???Type lamotrigine 200 mg tablet 200 mg PO QDAY 01/02/25 07/13/25 H istory PNV 153-FA 400 mcg-om3 35 mg-dha tab PO 01/11/25 07/13/25 History 25 mg-epa 5 mg-fish oil chew tablet famotidine 20 mg tablet (Pepcid) 20 mg PO BID #60 tabs 06/13/25 Rx alcohol swabs (Alcohol Wipes) 200 pad topical .prn #200 ea 06/1807/13/25 Rx blood sugar diagnostic (OneTouch #100 ea 06/18/25 07/13/25 Rx Ultra Test strips) lancets #200 ea 06/18/25 07/13/25 Rx 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 sensor (Dexcom G7 #1 ea 06/28/25 07/13/25 Rx Sensor device) 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,recei mela,cont #1 ea 06/28/25 07/13/25 Rx (Dexcom G7 Behavior Interventionist) Last Menstrual Period: 11/09/24 Zika: Zika virus screening: Negative : No PFSH PFSH Medical History Depression with anxiety PCOS (polycystic ovarian syndrome) Surgical History S/P wrist surgery S/P left knee surgery Family History Father Hypertension Mother Depression with anxiety Grandmother Diabetes Maternal Skin cancer, Onset Age: 75 Maternal Grandfather Diabetes Maternal Grandmother Diabetes Paternal Social History adopted: No household members: spouse and children housing: house number of children: 1 current occupational status: employed 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 Date Name GA/Weeks Outcome Route Bth Weight Gen Labor Lgth Anesthesia Del Locatn Provider FOB 08/11/22 [place] 38 live - full term forceps 6#10oz Male epidural [facility] Josue Delivery Date: 08/11/22 Last Updated by: Joslyn Gregory IOL, GDM HPI 32wk nst only Details: DRAKE PETTY is a 30 year old who presents for routine OB visit. OB Visit ASHLEE Calculator Estimated Delivery Date Method Current WG Current Estimate 09/04/25 Ultrasound #1 32w 3d Other Estimates 08/16/25 LMP (Certain) 35w 1d Expected Delivery Route/Plan Labor Preferences- CB/BF classes: no labor support person: Josue labor intervention preferences: [] pain management options preferred: limited but ok if requested epidural cut cord/dad catch: cord : yes PP control planned: discussed discussed possible routes of delivery and associated risks: [] special requests: [] Specific Issue/Plans Covid status: [] Flu vaccine: [] Tdap vaccine: [] Rhogam:NA LARC form signed: yes Problem list reviewed and updated with the most current plan of care details and appropriate orders placed. Relevant counseling for the gestational age provided. Continue routine care and follow up unless otherwise noted in visit notes/problem list details Initial Weight: 162 lb Date -???-???-???-???-?? ?-???-???-???-???-? ??-???-???- EGA Weight BP Urine Prot -???-???-???-???-?? ?-???-???-???-???-? ??-???-???- Glucose FHR FuHt Pres Dilation -???-???-???- (more content not included)... Normal [facility] Universal Branch Consultant Office Visit Reporton 07-10-2025 Universal Branch Consultant Office Visit Report [facility]'s [address], [address] [place] [address] OFFICE VISIT Date of Service: 07/10/25 MR#: [id number] Acct: [id number] Name: DRAKE PETTY Rep #: [id number] : 1995 Provider: OLY hoffman Age/Sex: 30/F [place] [facility] [place] Status: Signed Intake Vital Signs 06/13/25 15:26 06/25/25 15:16 07/10/25 10:14 Height 5 ft 4 in 5 ft 4 in 5 ft 4 in Weight: 185 lb 183 lb 6 oz 183 lb 1 oz BMI 31.7 31.4 31.4 BP 101/67 108/74 116/75 Intake Visit Reasons: 32wk ob/nst Inspector Canvas Products Required: No Is patient in pain?: No Allergies No Known Allergies Allergy (Verified 07/10/25 10:36) Medications ???Medication ???Instructions ???Recorded ???Confirmed ???Type lamotrigine 200 mg tablet 200 mg PO QDAY 01/02/25 07/10/25 H istory PNV 153-FA 400 mcg-om3 35 mg-dha tab PO 01/11/25 07/10/25 History 25 mg-epa 5 mg-fish oil chew tablet famotidine 20 mg tablet (Pepcid) 20 mg PO BID #60 tabs 06/13/25 Rx alcohol swabs (Alcohol Wipes) 200 pad topical .prn #200 ea 06/1807/10/25 Rx blood sugar diagnostic (OneTouch #100 ea 06/18/25 07/10/25 Rx Ultra Test strips) lancets #200 ea 06/18/25 07/10/25 Rx 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 sensor (Dexcom G7 #1 ea 06/28/25 07/10/25 Rx Sensor device) 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,recei mela,cont #1 ea 06/28/25 07/10/25 Rx (Dexcom G7 Behavior Interventionist) Last Menstrual Period: 11/09/24 Zika: Zika virus screening: Negative : No PFSH PFSH Medical History Depression with anxiety PCOS (polycystic ovarian syndrome) Surgical History S/P wrist surgery S/P left knee surgery Family History Father Hypertension Mother Depression with anxiety Grandmother Diabetes Maternal Skin cancer, Onset Age: 75 Maternal Grandfather Diabetes Maternal Grandmother Diabetes Paternal Social History adopted: No household members: spouse and children housing: house number of children: 1 current occupational status: employed 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 OB Visit ASHLEE Calculator Estimated Delivery Date Method Current WG Current Estimate 09/04/25 Ultrasound #1 32w 0d Other Estimates 08/16/25 LMP (Certain) 34w 5d Expected Delivery Route/Plan Labor Preferences- CB/BF classes: no labor support person: Josue labor intervention preferences: [] pain management options preferred: limited but ok if requested epidural cut cord/dad catch: cord : yes PP control planned: discussed discussed possible routes of delivery and associated risks: [] special requests: [] Specific Issue/Plans Covid status: [] Flu vaccine: [] Tdap vaccine: [] Rhogam:NA LARC form signed: yes Problem list reviewed and updated with the most current plan of care details and appropriate orders placed. Relevant counseling for the gestational age provided. Continue routine care and follow up unless otherwise noted in visit notes/problem list details Initial Weight: 162 lb Date -???-???-???-???-?? ?-???-???-???-???-? ??-???-???- EGA Weight BP Urine Prot -???-???-???-???-?? ?-???-???-???-???-? ??-???-???- Glucose FHR FuHt Pres Dilation (more content not included)... Normal [facility] Laboratory - Chemistry and C hemistry - challengeOrdered By: Nel Ruff on 06-25-2025 Glucose Ql (U) Negative [facility] Laboratory - UrinalysisOrder ed By: Nel Ruff on 06-25-2025 Protein Ql (U) Negative [facility] Universal Branch Consultant Office Visit Reporton 06-25-2025 Universal Branch Consultant Office Visit Report [facility]'s [address], [address] [place] [address] OFFICE VISIT Date of Service: 06/25/25 MR#: [id number] Acct: [id number] Name: DRAKE PETTY Rep #: [id number] : 1995 Provider: BRET Gay ams Age/Sex: 30/F [place] [facility] [place]: Signed Intake Vital Signs 04/27/25 11:42 06/13/25 15:26 06/25/25 15:16 Height 5 ft 4 in 5 ft 4 in 5 ft 4 in Weight: 185 lb 183 lb 6 oz BMI 31.7 31.4 BP 101/67 108/74 Intake Visit Reasons: 30 WK OB Chief Complaint: 30wk OB Inspector Canvas Products Required: No Is patient in pain?: No Allergies No Known Allergies Allergy (Verified 06/25/25 15:14) Medications ???Medication ???Instructions ???Recorded ???Confirmed ???Type lamotrigine 200 mg tablet 200 mg PO QDAY 01/02/25 06/25/25 H istory PNV 153-FA 400 mcg-om3 35 mg-dha tab PO 01/11/25 06/25/25 History 25 mg-epa 5 mg-fish oil chew tablet famotidine 20 mg tablet (Pepcid) 20 mg PO BID #60 tabs 06/13/25 Rx alcohol swabs (Alcohol Wipes) 200 pad topical .prn #200 ea 06/1806/25/25 Rx blood sugar diagnostic (OneTouch #100 ea 06/18/25 06/25/25 Rx Ultra Test strips) lancets #200 ea 06/18/25 06/25/25 Rx Last Menstrual Period: 11/09/24 : No Have you fallen in the past year?: No PFSH PFSH Medical History Depression with anxiety PCOS (polycystic ovarian syndrome) Surgical History S/P wrist surgery S/P left knee surgery Family History Father Hypertension Mother Depression with anxiety Grandmother Diabetes Maternal Skin cancer, Onset Age: 75 Maternal Grandfather Diabetes Maternal Grandmother Diabetes Paternal Social History adopted: No household members: spouse and children housing: house number of children: 1 current occupational status: employed 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 OB Visit ASHLEE Calculator Estimated Delivery Date Method Current WG Current Estimate 09/04/25 Ultrasound #1 29w 6d Other Estimates 08/16/25 LMP (Certain) 32w 4d Expected Delivery Route/Plan Labor Preferences- CB/BF classes: no labor support person: Josue labor intervention preferences: [] pain management options preferred: limited but ok if requested epidural cut cord/dad catch: cord : yes PP control planned: discussed discussed possible routes of delivery and associated risks: [] special requests: [] Specific Issue/Plans Covid status: [] Flu vaccine: [] Tdap vaccine: [] Rhogam:NA LARC form signed: yes Problem list reviewed and updated with the most current plan of care details and appropriate orders placed. Relevant counseling for the gestational age provided. Continue routine care and follow up unless otherwise noted in visit notes/problem list details Initial Weight: 162 lb Date -???-???-???-???-?? ?-???-???-???-???-? ??-???-???- EGA Weight BP Urine Prot -???-???-???-???-?? ?-???-???-???-???-? ??-???-???- Glucose FHR FuHt Pres Dilation -???-???-???-???-?? ?-???-???-???-???-? ??-???-???- Effaced St Visit Note 01/18/25 -???-???-???-???-?? ?-???-???-???-???-? ??-???-???- 7w 2d 162 lb 2 oz (+2 oz) 122/79 -???-? (more content not included)... Normal [facility] Absolute lymphocyte countOrd ered By: Emma Valenzuela on 06-13-2025 Lymphocytes Auto (Unsp spec) [#/Vol] 2.00 10*3/uL 0.83-4.51 [facility] Absolute neutrophil countOrd ered By: Emma Valenzuela on 06-13-2025 Neutrophils (Bld) [#/Vol] 7.3 10*3/uL 2.0-7.7 [facility] Automated lymphocyte count a s percentage of total leukocytesOrdered By: Emma Heflin on 06-13-2025 Lymphocytes/100 WBC Auto (Unsp spec) 20.0 % 19-41 [facility] Basophil percentageOrdered B y: Emma Bianca on 06-13-2025 Basophils/100 WBC (Bld) 0.3 % 0-1 [facility] CBC W/Diff, Automatedon -2024 Absolute Lymph 2.00 X10 3/uL Normal 0.83-4.51 [facility] Comment on above: Performed By: #### L 3890.6006, L100.0100, L501.0250, L509.8002 #### [facility] [address] [place], [address] Absolute Neut 7.3 X10 3/uL Normal 2.0-7.7 [facility] Comment on above: Performed By: #### L 3890.6006, L100.0100, L501.0250, L509.8002 #### [facility] [address] [place], [address] Basophils/100 WBC (Bld) 0.3 % Normal 0-1 [facility] Comment on above: Performed By: #### L 3890.6006, L100.0100, L501.0250, L509.8002 #### [facility] [address] [place], [address] Eosinophils/100 WBC (Bld) 1.3 % Normal 0-5 [facility] Comment on above: Performed By: #### L 3890.6006, L100.0100, L501.0250, L509.8002 #### [facility] [address] [place], [address] Erythrocyte distribution width (RBC) [Ratio] 13.4 % Normal 11.6-14.6 [facility] Comment on above: Performed By: #### L 3890.6006, L100.0100, L501.0250, L509.8002 #### [facility] [address], [address] Hematocrit (Bld) [Volume fraction] 36.0 % Low 37-47 [facility] Comment on above: Performed By: #### L 3890.6006, L100.0100, L501.0250, L509.8002 #### [facility] [address] [place], [address] Hemoglobin (Bld) [Mass/Vol] 12.0 g/dL Normal 12.0-15.0 [facility] Comment on above: Performed By: #### L 3890.6006, L100.0100, L501.0250, L509.8002 #### [facility] [address], [address] IG% 0.500 Normal 0.0-0.9 [facility] Comment on above: Result Comment: IG% - Immature Granulocytes (promyelocytes, myelocytes and metamyelocytes) > 1% indicates that a LEFT SHIFT is Present. Performed By: #### L 3890.6006, L100.0100, L501.0250, L509.8002 #### [facility] [address], [address] Lymphocytes/100 WBC (Bld) 20.0 % Normal 19-41 [facility] Comment on above: Performed By: #### L 3890.6006, L100.0100, L501.0250, L509.8002 #### [facility] [address] [place], [address] MCH (RBC) [Entitic mass] 29.0 pg Normal 27.0-32.0 [facility] Comment on above: Performed By: #### L 3890.6006, L100.0100, L501.0250, L509.8002 #### [facility] [address] [place], [address] MCHC (RBC) [Mass/Vol] 33.3 g/dL Normal 32-36 [facility] Comment on above: Performed By: #### L 3890.6006, L100.0100, L501.0250, L509.8002 #### [facility] [address] [place], [address] MCV (RBC) [Entitic vol] 87.0 fL Normal 81-99 [facility] Comment on above: Performed By: #### L 3890.6006, L100.0100, L501.0250, L509.8002 #### [facility] [address] [place], [address] Monocytes/100 WBC (Bld) 5.4 % Normal 0-10 [facility] Comment on above: Performed By: #### L 3890.6006, L100.0100, L501.0250, L509.8002 #### [facility] [address] [place], [address] Neutrophils/100 WBC (Bld) 72.5 % High 47-70 [facility] Comment on above: Performed By: #### L 3890.6006, L100.0100, L501.0250, L509.8002 #### [facility] [address] [place], [address] Nucleated RBC (Bld) [#/Vol] 0 10*3/uL Normal 0-5 [facility] Comment on above: Performed By: #### L 3890.6006, L100.0100, L501.0250, L509.8002 #### [facility] [address] [place], [address] Platelet mean volume (Bld) [Entitic vol] 10.3 fL Normal 6.2-12.0 [facility] Comment on above: Performed By: #### L 3890.6006, L100.0100, L501.0250, L509.8002 #### [facility] [address] [place], [address] Platelets (Bld) [#/Vol] 258 10*3/uL Normal 150-450 [facility] Comment on above: Performed By: #### L 3890.6006, L100.0100, L501.0250, L509.8002 #### [facility] [address] [place], [address] RBC (Bld) [#/Vol] 4.14 10*6/uL Low 4.2-5.4 [facility] Comment on above: Performed By: #### L 3890.6006, L100.0100, L501.0250, L509.8002 #### [facility] [address] [place], [address] RDW SD 41.7 fl Normal 35.1-43.9 [facility] Comment on above: Performed By: #### L 3890.6006, L100.0100, L501.0250, L509.8002 #### [facility] [address] [place], [address] WBC (Bld) [#/Vol] 10.0 10*3/uL Normal 4.4-11.0 [facility] Comment on above: Performed By: #### L 3890.6006, L100.0100, L501.0250, L509.8002 #### [facility] [address] [place], [address] Eosinophil percentageOrdered By: Emma Valenzuela on 06-13-2025 Eosinophils/100 WBC (Bld) 1.3 % 0-5 [facility] Erythrocyte distribution wid th ratioOrdered By: Emma Valenzuela on 06-13-2025 Erythrocyte distribution width (RBC) [Ratio] 13.4 % 11.6-14.6 [facility] Erythrocyte distribution wid th standard deviationOrdered By: Emma Valenzuela on 06-13-2025 Erythrocyte distribution width (RBC) [Ratio] 41.7 fl 35.1-43.9 [facility] Glucose Challenge Gest 1H 50 huong 06-13-2025 GLU GEST 50g 1H 166 mg/dL High 70-140 [facility] Comment on above: Performed By: #### L 3890.6006, L100.0100, L501.0250, L509.8002 #### [facility] [address] [facility] [place], [address] Glucose measurement at 2 ba rs post-dose gestational glucose tolerance testOrdered By: Emmaba Valenzuela on 06-13-2025 Glucose [Mass/Vol] 166 mg/dL High 70-140 [facility] HIVon 06-13-2025 HIV Non-Reactive Normal Nonreactive [facility] Comment on above: Result Comment: Non- Reactive Reactive Repeatedly reactive samples must be confirmed according to CDC recommended confirmatory algorithms. The subresults for either HIVAG or AHIV can be used as an aid in the selection of the confirmation algorithm for reactive samples. Send out specimens with Reactive results to [facility] for confirmation. Order the HIV antibody detection and differentiation: #[id number] Performed By: #### L 3890.6006, L100.0100, L501.0250, L509.8002 #### [facility] [address] [facility] [place], [address] Hematocrit Auto (Bld) [Volum e fraction]Ordered By: Emma Valenzuela on 06-13-2025 Hematocrit (Bld) [Volume fraction] 36.0 % Low 37-47 [facility] Hemoglobin measurementOrdere d By: Emma Valenzuela on 06-13-2025 Hemoglobin (Bld) [Mass/Vol] 12.0 g/dL 12.0-15.0 [facility] Immature granulocytes/100 WB C Auto (Bld)Ordered By: Emma Valenzuela on 06-13-2025 Immature granulocytes/100 WBC (Bld) 0.500 % 0.0-0.9 [facility] Comment on above: IG% - Immature Granu locytes (promyelocytes, myelocytes and metamyelocytes) > 1% indicates that a LEFT SHIFT is Present. Laboratory - Chemistry and C hemistry - challengeOrdered By: Emmanuelle Espinoza on 06-13-2025 Glucose Ql (U) Negative [facility] Laboratory - UrinalysisOrder ed By: Emmanuelle Espinoza on 06-13-2025 Protein Ql (U) Negative [facility] MCV (mean corpuscular volume ) determinationOrdered By: Emma Valenzuela on 06-13-2025 MCV (RBC) [Entitic vol] 87.0 fL 81-99 [facility] Mean corpuscular hemoglobin (MCH) determinationOrdered By: Emma Valenzuela on 06-13-2025 MCH (RBC) [Entitic mass] 29.0 pg 27.0-32.0 [facility] Mean corpuscular hemoglobin concentration (MCHC) determinationOrdered By: Emma Valenzuela on 06-13-2025 MCHC (RBC) [Mass/Vol] 33.3 g/dL 32-36 [facility] Mean platelet volume determi nationOrdered By: Emma Valenzuela on 06-13-2025 Platelet mean volume (Bld) [Entitic vol] 10.3 fL 6.2-12.0 [facility] Monocyte percentageOrdered B y: Emma Valenzuela on 06-13-2025 Monocytes/100 WBC (Bld) 5.4 % 0-10 [facility] Neutrophil percentageOrdered By: Emma Valenzuela on 06-13-2025 Neutrophils/100 WBC (Bld) 72.5 % High 47-70 [facility] No Panel InformationOrdered By: Emma Valenzuela on 06-13-2025 HIV (1&2) Antibody Non-Reactive Nonreactive [facility] Comment on above: Non-ReactiveReactive Repeatedly reactive samples must be confirmed according to CDC recommended confirmatory algorithms. The subresults for either HIVAG or AHIV can be used as an aid in the selection of the confirmation algorithm for reactive samples.Send out specimens with Reactive results to [facility] for confirmation.Order the HIV antibody detection and differentiation: #[id number] Nucleated red blood cell per centageOrdered By: Emma Valenzuela on 06-13-2025 Nucleated RBC/100 WBC (Bld) [Ratio] 0 % 0-5 [facility] Universal Branch Consultant Office Visit Reporton 06-13-2025 Universal Branch Consultant Office Visit Report [facility]'s [address], [address] [place] [address] OFFICE VISIT Date of Service: 06/13/25 MR#: [id number] Acct: [id number] Name: DRAKE PETTY Rep #: [id number] : 1995 Provider: Dr. 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 Inspector Canvas Products Required: No Is patient in pain?: No Allergies No Known Allergies Allergy (Verified 06/13/25 15:27) Medications ???Medication ???Instructions ???Recorded ???Confirmed ???Type lamotrigine 200 mg tablet 200 mg PO QDAY 01/02/25 06/13/25 H istory PNV 153-FA 400 mcg-om3 35 mg-dha tab PO 01/11/25 06/13/25 History 25 mg-epa 5 mg-fish oil chew tablet famotidine 20 mg tablet (Pepcid) 20 mg PO BID #60 tabs 06/13/2510/07 Rx Last Menstrual Period: 11/09/24 Zika: Zika virus screening: Negative : No Have you fallen in the past year?: No PFSH PFSH Medical History Depression with anxiety PCOS (polycystic ovarian syndrome) Surgical History S/P wrist surgery S/P left knee surgery Family History Father Hypertension Mother Depression with anxiety Grandmother Diabetes Maternal Skin cancer, Onset Age: 75 Maternal Grandfather Diabetes Maternal Grandmother Diabetes Paternal Social History adopted: No household members: spouse and children housing: house number of children: 1 current occupational status: employed 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 Date Name GA/Weeks Outcome Route Bth Weight Gen Labor Lgth Anesthesia Del Locatn Provider FOB 08/11/22 [place] 38 live - full term forceps 6#10oz Male epidural [facility] Josue Delivery Date: 08/11/22 Last Updated by: Joslyn Gregory IOL, GDM HPI 28wk ob/glucose Details: DRAKE PETTY is a 30 year old who presents for routine OB visit. OB Visit ASHLEE Calculator Estimated Delivery Date Method Current WG Current Estimate 09/04/25 Ultrasound #1 28w 1d Other Estimates 08/16/25 LMP (Certain) 30w 6d Expected Delivery Route/Plan Labor Preferences- CB/BF classes: no labor support person: Josue labor intervention preferences: [] pain management options preferred: limited but ok if requested epidural cut cord/dad catch: cord : yes PP control planned: discussed discussed possible routes of delivery and associated risks: [] special requests: [] Specific Issue/Plans Covid status: [] Flu vaccine: [] Tdap vaccine: [] Rhogam:NA LARC form signed: yes Problem list reviewed and updated with the most current plan of care details and appropriate orders placed. Relevant counseling for the gestational age provided. Continue routine care and follow up unless otherwise noted in visit notes/problem list details Initial Weight: 162 lb Date -???-???-???-???-?? ?-???-???-???-???-? ??-???-???- EGA Weight BP Urine Prot -???-???-???-???-?? ?-???-???-???-???-? ??-???-???- Glucose FHR FuHt Pres Dilation -???-???-???-???-?? ?-???-???-???-???-? ??-???-???- Effaced St Visit Note 01/18/25 -???-???-???-???-?? ?-???-???-???-???-? ??-???-???- 7w 2d 162 lb 2 oz (+2 oz) 122/79 -???-???-???-???-?? ?-???-???-???-???-? ??-???-???- 151 -???-???-???-???-?? ?-???-???-???-???-? ??-???-???- KW-CRL not c ons with dates. ASHLEE changed. will plan NOB labs next visit. 03/01/25 -???-?? (more content not included)... Normal [facility] Platelet countOrdered By: Travis Valenzuela on 06-13-2025 Platelets (Bld) [#/Vol] 258 10*3/uL 150-450 [facility] RBC Auto (Bld) [#/Vol]Ordere d By: Emma Valenzuela on 06-13-2025 RBC (Bld) [#/Vol] 4.14 10*6/uL Low 4.2-5.4 [facility] Syphilis Antibodieson 2024 Syphilis Abs Non-Reactive Normal Nonreactive [facility] Comment on above: Performed By: #### L 3890.6006, L100.0100, L501.0250, L509.8002 #### [facility] [address] [place], [address] White blood cell (WBC) count Ordered By: Emma Valenzuela on 06-13-2025 WBC (Bld) [#/Vol] 10.0 10*3/uL 4.4-11.0 [facility] Laboratory - Chemistry and C hemistry - challengeOrdered By: Emma Valenzuela on 05-22-2025 Glucose Ql (U) Negative [facility] Laboratory - UrinalysisOrder ed By: Emma Valenzuela on 05-22-2025 Protein Ql (U) Negative [facility] Universal Branch Consultant Office Visit Reporton 05-22-2025 Universal Branch Consultant Office Visit Report [facility]'[address], [address] [place] [address] OFFICE VISIT Date of Service: 05/22/25 MR#: [id number] Acct: [id number] Name: JANICEDRAKE C Rep #: [id number] : 1995 Provider: OLY hoffman Age/Sex: 30/F [place] [facility]: Signed Intake Vital Signs 03/30/25 13:58 04/27/25 11:42 05/22/25 15:35 Height 5 ft 4 in 5 ft 4 in 5 ft 4 in Weight: 184 lb 5 oz BMI 31.6 BP 115/75 Intake Visit Reasons: 25wk ob Chief Complaint: 25 Week OB Inspector Canvas Products Required: No Is patient in pain?: No Allergies No Known Allergies Allergy (Verified 05/22/25 15:37) Medications ???Medication ???Instructions ???Recorded ???Confirmed ???Type lamotrigine 200 mg tablet 200 mg PO QDAY 01/02/25 05/22/25 H istory PNV 153-FA 400 mcg-om3 35 mg-dha tab PO 01/11/25 05/22/25 History 25 mg-epa 5 mg-fish oil chew tablet Last Menstrual Period: 11/09/24 Zika: Zika virus screening: Negative : No PFSH PFSH Medical History Depression with anxiety PCOS (polycystic ovarian syndrome) Surgical History S/P wrist surgery S/P left knee surgery Family History Father Hypertension Mother Depression with anxiety Grandmother Diabetes Maternal Skin cancer, Onset Age: 75 Maternal Grandfather Diabetes Maternal Grandmother Diabetes Paternal Social History adopted: No household members: spouse and children housing: house number of children: 1 current occupational status: employed 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 Date Name GA/Weeks Outcome Route Bth Weight Gen Labor Lgth Anesthesia Del Locatn Provider FOB 08/11/22 [place] 38 live - full term forceps 6#10oz Male epidural [facility] Larryin Delivery Date: 08/11/22 Last Updated by: Joslyn Gregory IOL, GDM HPI 25wk ob Details: DRAKE PETTY is a 30 year old who presents for routine OB visit. OB Visit ASHLEE Calculator Estimated Delivery Date Method Current WG Current Estimate 09/04/25 Ultrasound #1 25w 0d Other Estimates 08/16/25 LMP (Certain) 27w 5d Expected Delivery Route/Plan Labor Preferences- CB/BF classes: no labor support person: Josue labor intervention preferences: [] pain management options preferred: limited but ok if requested epidural cut cord/dad catch: cord : yes PP control planned: discussed discussed possible routes of delivery and associated risks: [] special requests: [] Specific Issue/Plans Covid status: [] Flu vaccine: [] Tdap vaccine: [] Rhogam:NA LARC form signed: yes Problem list reviewed and updated with the most current plan of care details and appropriate orders placed. Relevant counseling for the gestational age provided. Continue routine care and follow up unless otherwise noted in visit notes/problem list details Initial Weight: 162 lb Date -???-???-???-???-?? ?-???-???-???-???-? ??-???-???- EGA Weight BP Urine Prot -???-???-???-???-?? ?-???-???-???-???-? ??-???-???- Glucose FHR FuHt Pres Dilation -???-???-???-???-?? ?-???-???-???-???-? ??-???-???- Effaced St Visit Note 01/18/25 -???-???-???-???-?? ?-???-???-???-???-? ??-???-???- 7w 2d 162 lb 2 oz (+2 oz) 122/79 -???-???-???-???-?? ?-???-???-???-???-? ??-???-???- 151 -???-???-???-???-?? ?-???-???-???-???-? ??-???-???- KW-CRL not c ons with dates. ASHLEE changed. will plan NOB labs next visit. 03/01/25 -???-???-???-???-?? ?-???-???-???-???-? ??-???-???- 13w 2d 166 lb (+4 lb) 111/70 Negative -???-? (more content not included)... Normal [facility] Laboratory - Chemistry and C hemistry - challengeOrdered By: Nel Ruff on 04-27-2025 Glucose Ql (U) Negative [facility] Laboratory - UrinalysisOrder ed By: Nel Ruff on 04-27-2025 Protein Ql (U) Negative [facility] Universal Branch Consultant Office Visit Reporton 04-27-2025 Universal Branch Consultant Office Visit Report [facility]'s [address], [address] [place] [address] OFFICE VISIT Date of Service: 04/27/25 MR#: [id number] Acct: [id number] Name: DRAKE PETTY Rep #: [id number] : 1995 Provider: BRET Gay ams Age/Sex: 30/F [place] [facility]: Signed Intake Vital Signs 03/01/25 13:22 03/30/25 13:58 04/27/25 11:42 Height 5 ft 4 in 5 ft 4 in 5 ft 4 in Weight: 177 lb 7 oz BMI 30.4 BP 105/69 Intake Visit Reasons: 21 wk ob Chief Complaint: 21wk OB Inspector Canvas Products Required: No Is patient in pain?: No Allergies No Known Allergies Allergy (Verified 04/27/25 11:40) Medications ???Medication ???Instructions ???Recorded ???Confirmed ???Type lamotrigine 200 mg tablet 200 mg PO QDAY 01/02/25 04/27/25 H istory PNV 153-FA 400 mcg-om3 35 mg-dha tab PO 01/11/25 04/27/25 History 25 mg-epa 5 mg-fish oil chew tablet Last Menstrual Period: 11/09/24 : No PFSH PFSH Medical History Depression with anxiety PCOS (polycystic ovarian syndrome) Surgical History S/P wrist surgery S/P left knee surgery Family History Father Hypertension Mother Depression with anxiety Grandmother Diabetes Maternal Skin cancer, Onset Age: 75 Maternal Grandfather Diabetes Maternal Grandmother Diabetes Paternal Social History adopted: No household members: spouse and children housing: house number of children: 1 current occupational status: employed current occupation: [employer] current occupational exposures/hazards: No pets and animals: [...] 5-6 times per week duration: 45-60 minutes/day carolann/gnosticist: None seatbelt use: always do you feel [...] full term forceps 6#10oz Male epidural [facility] k[facility] Salas Delivery Date: 08/11/22 Last Updated by: Joslyn rGegory IOL, GDM HPI 21 wk ob Details: DRAKE PETTY is a 30 year old who presents for routine OB visit. OB Visit ASHLEE Calculator Estimated Delivery Date Method Current WG Current Estimate 09/04/25 Ultrasound #1 21w 3d Other Estimates 08/16/25 LMP (Certain) 24w 1d Expected Delivery Route/Plan Labor Preferences- CB/BF classes: [...] list details Initial Weight: 162 lb Date -???-???-???-???-?? ?-???-???-???-???-? ??-???-???- EGA Weight BP Urine Prot -???-???-???-???-?? ?-???-???-???-???-? ??-???-???- Glucose FHR FuHt Pres Dilation -???-???-???-???-?? ?-???-???-???-???-? ??-???-???- Effaced St Visit Note 01/18/25 -???-???-???-???-?? ?-???-???-???-???-? ??-???-???- 7w 2d 162 lb 2 oz (+2 oz) 122/79 -???-???-???-???-?? ?-???-???-???-???-? ??-???-???- 151 -???-???-???-???-?? ?-???-???-???-???-? ??-???-???- KW-CRL not c ons with dates. ASHLEE changed. will plan NOB labs next visit. 03/01/25 -???-???-???-???-?? ?-???-???-???-???-? ??-???-???- 13w 2d 166 lb (+4 lb) 111/70 Negative -???-???-???-???-?? ?-???-???-???-???-? ??-???-???- Negative 158 -???-???-???-???-?? ?-???-???-???-???-? ??-???-???- (more content not included)... Normal [facility] Laboratory - Chemistry and C hemistry - challengeOrdered By: Ayala Thompson on 03-30-2025 Glucose Ql (U) Negative [facility] Laboratory - UrinalysisOrder ed By: Ayala Thompson on 03-30-2025 Protein Ql (U) Negative [facility] Universal Branch Consultant Office Visit Reporton 03-30-2025 Universal Branch Consultant Office Visit Report [facility]'s [address], [address] [place] [address] OFFICE VISIT Date of Service: 03/30/25 MR#: [id number] Acct: [id number] Name: DRAKE PETTY Rep #: [id number] : 1995 Provider: Dr. Ayala elliott MD Age/Sex: 30/F [place] [facility]: Signed Intake Vital Signs 01/18/25 08:47 03/01/25 13:22 03/30/25 13:58 Height 5 ft 4 in 5 ft 4 in 5 ft 4 in Weight: 169 lb 4 oz BMI 29.0 BP 116/72 Intake Visit Reasons: 17 wk ob Inspector Canvas Products Required: No Is patient in pain?: No Allergies No Known Allergies Allergy (Verified 03/30/25 14:00) Medications ???Medication ???Instructions ???Recorded ???Confirmed ???Type lamotrigine 200 mg tablet 200 mg PO QDAY 01/02/25 03/30/25 H istory metformin 500 mg tablet,extended 1,500 mg PO QDAY 01/02/25 03/30/25 History release 24 hr PNV 153-FA 400 mcg-om3 35 mg-dha tab PO 01/11/25 03/30/25 History 25 mg-epa 5 mg-fish oil chew tablet Last Menstrual Period: 11/09/24 Zika: Zika virus screening: Negative : No PFSH PFSH Medical History (Updated 03/30/25 @ 14:[address] Ayala Thompson MD) Depression with anxiety PCOS (polycystic ovarian syndrome) Surgical History S/P wrist surgery S/P left knee surgery Family History Father Hypertension Mother Depression with anxiety Grandmother Diabetes Maternal Skin cancer, Onset Age: 75 Maternal Grandfather Diabetes Maternal Grandmother Diabetes Paternal Social History adopted: No household members: spouse and children housing: house number of children: 1 current occupational status: employed 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 Date Name GA/Weeks Outcome Route Bth Weight Gen Labor Lgth Anesthesia Del Nichoatharsha Provider FOB 08/11/22 [place] 38 live - full term forceps 6#10oz Male epidural [facility]as Delivery Date: 08/11/22 Last Updated by: Joslyn Gregory IOL, GDM HPI 17 wk ob Details: DRAKE PETTY is a 30 year old who presents for routine OB visit. OB Visit ASHLEE Calculator Estimated Delivery Date Method Current WG Current Estimate 09/04/25 Ultrasound #1 17w 3d Other Estimates 08/16/25 LMP (Certain) 20w 1d Expected Delivery Route/Plan Labor Preferences- CB/BF classes: [...] list details Initial Weight: 162 lb Date -???-???-???-???-?? ?-???-???-???-???-? ??-???-???- EGA Weight BP Urine Prot -???-???-???-???-?? ?-???-???-???-???-? ??-???-???- Glucose FHR FuHt Pres Dilation -???-???-???-???-?? ?-???-???-???-???-? ??-???-???- Effaced St Visit Note 01/18/25 -???-???-???-???-?? ?-???-???-???-???-? ??-???-???- 7w 2d 162 lb 2 oz (+2 oz) 122/79 -???-???-???-???-?? ?-???-???-???-???-? ??-???-???- 151 -???-???-???-???-?? ?-???-???-???-???-? ??-???-???- KW-CRL not c ons with dates. ASHLEE changed. will plan NOB labs next visit. 03/01/25 -???-???-???-???-?? ?-???-???-???-???-? ??-???-???- 13w 2d 166 lb (+ (more content not included)... Normal [facility] Absolute lymphocyte countOrd ered By: Nel Ruff on 03-01-2025 Lymphocytes Auto (Unsp spec) [#/Vol] 1.82 10*3/uL 0.83-4.51 [facility] Absolute neutrophil countOrd ered By: Nel Ruff on 03-01-2025 Neutrophils (Bld) [#/Vol] 5.2 10*3/uL 2.0-7.7 [facility] Automated lymphocyte count a s percentage of total leukocytesOrdered By: Nel uRff on 03-01-2025 Lymphocytes/100 WBC Auto (Unsp spec) 23.2 % - [facility] Basophil percentageOrdered B y: Nel Ruff on 03-01-2025 Basophils/100 WBC (Bld) 0.4 % 0-1 [facility] CBC W/Diff, Automatedon 02-11 Absolute Lymph 1.82 X10 3/uL Normal 0.83-4.51 [facility] Comment on above: Performed By: #### L 3890.6006, L100.0100, L501.0250, L509.8002 #### [facility] [address] [place], [address] Absolute Neut 5.2 X10 3/uL Normal 2.0-7.7 [facility] Comment on above: Performed By: #### L 3890.6006, L100.0100, L501.0250, L509.8002 #### [facility] [address] [place], [address] Basophils/100 WBC (Bld) 0.4 % Normal 0-1 [facility] Comment on above: Performed By: #### L 3890.6006, L100.0100, L501.0250, L509.8002 #### [facility] [address] [place], [address] Eosinophils/100 WBC (Bld) 1.3 % Normal 0-5 [facility] Comment on above: Performed By: #### L 3890.6006, L100.0100, L501.0250, L509.8002 #### [facility] [address] [place], [address] Erythrocyte distribution width (RBC) [Ratio] 12.6 % Normal 11.6-14.6 [facility] Comment on above: Performed By: #### L 3890.6006, L100.0100, L501.0250, L509.8002 #### [facility] [address] [place], [address] Hematocrit (Bld) [Volume fraction] 37.4 % Normal 37-47 [facility] Comment on above: Performed By: #### L 3890.6006, L100.0100, L501.0250, L509.8002 #### [facility] [address] [place], [address] Hemoglobin (Bld) [Mass/Vol] 12.6 g/dL Normal 12.0-15.0 [facility] Comment on above: Performed By: #### L 3890.6006, L100.0100, L501.0250, L509.8002 #### [facility] [address] [place], [address] IG% 0.300 Normal 0.0-0.9 [facility] Comment on above: Result Comment: IG% - Immature Granulocytes (promyelocytes, myelocytes and metamyelocytes) > 1% indicates that a LEFT SHIFT is Present. Performed By: #### L 3890.6006, L100.0100, L501.0250, L509.8002 #### [facility] [address] [place], [address] Lymphocytes/100 WBC (Bld) 23.2 % Normal 19-41 [facility] Comment on above: Performed By: #### L 3890.6006, L100.0100, L501.0250, L509.8002 #### [facility] [address] [place], [address] MCH (RBC) [Entitic mass] 29.2 pg Normal 27.0-32.0 [facility] Comment on above: Performed By: #### L 3890.6006, L100.0100, L501.0250, L509.8002 #### [facility] [address] [place], [address] MCHC (RBC) [Mass/Vol] 33.7 g/dL Normal 32-36 [facility] Comment on above: Performed By: #### L 3890.6006, L100.0100, L501.0250, L509.8002 #### [facility] [address] [place], [address] MCV (RBC) [Entitic vol] 86.6 fL Normal 81-99 [facility] Comment on above: Performed By: #### L 3890.6006, L100.0100, L501.0250, L509.8002 #### [facility] [address] [place], [address] Monocytes/100 WBC (Bld) 8.4 % Normal 0-10 [facility] Comment on above: Performed By: #### L 3890.6006, L100.0100, L501.0250, L509.8002 #### [facility] [address] [place], [address] Neutrophils/100 WBC (Bld) 66.4 % Normal 47-70 [facility] Comment on above: Performed By: #### L 3890.6006, L100.0100, L501.0250, L509.8002 #### [facility] [address] [place], [address] Nucleated RBC (Bld) [#/Vol] 0 10*3/uL Normal 0-5 [facility] Comment on above: Performed By: #### L 3890.6006, L100.0100, L501.0250, L509.8002 #### [facility] [address] [place], [address] Platelet mean volume (Bld) [Entitic vol] 10.0 fL Normal 6.2-12.0 [facility] Comment on above: Performed By: #### L 3890.6006, L100.0100, L501.0250, L509.8002 #### [facility] [address] [place], [address] Platelets (Bld) [#/Vol] 258 10*3/uL Normal 150-450 [facility] Comment on above: Performed By: #### L 3890.6006, L100.0100, L501.0250, L509.8002 #### [facility] [address] [place], [address] RBC (Bld) [#/Vol] 4.32 10*6/uL Normal 4.2-5.4 [facility] Comment on above: Performed By: #### L 3890.6006, L100.0100, L501.0250, L509.8002 #### [facility] [address] [facility] [place], [address] RDW SD 39.9 fl Normal 35.1-43.9 [facility] Comment on above: Performed By: #### L 3890.6006, L100.0100, L501.0250, L509.8002 #### [facility] [address], [address] WBC (Bld) [#/Vol] 7.9 10*3/uL Normal 4.4-11.0 [facility] Comment on above: Performed By: #### L 3890.6006, L100.0100, L501.0250, L509.8002 #### [facility] [address] [facility] [place], [address] Eosinophil percentageOrdered By: Nel Ruff on 03-01-2025 Eosinophils/100 WBC (Bld) 1.3 % 0-5 [facility] Erythrocyte distribution wid th ratioOrdered By: Nel Ruff on 03-01-2025 Erythrocyte distribution width (RBC) [Ratio] 12.6 % 11.6-14.6 [facility] Erythrocyte distribution wid th standard deviationOrdered By: Nel Ruff on 03-01-2025 Erythrocyte distribution width (RBC) [Ratio] 39.9 fl 35.1-43.9 [facility] HIVon 03-01-2025 HIV Non-Reactive Normal Nonreactive [facility] Comment on above: Result Comment: Non- Reactive Reactive Repeatedly reactive samples must be confirmed according to CDC recommended confirmatory algorithms. The subresults for either HIVAG or AHIV can be used as an aid in the selection of the confirmation algorithm for reactive samples. Send out specimens with Reactive results to [facility] for confirmation. Order the HIV antibody detection and differentiation: lc#[id number] Performed By: #### L 3890.6006, L100.0100, L501.0250, L509.8002 #### [facility] [address] [facility] [place], [address] Hematocrit Auto (Bld) [Volum e fraction]Ordered By: Nel Ruff on 03-01-2025 Hematocrit (Bld) [Volume fraction] 37.4 % 37-47 [facility] Hemoglobin A1con 03-01-2025 HbA1c (Bld) [Mass fraction] 5.2 % Normal <=5.6 [facility] Comment on above: Result Comment: Norm al < 5.7 % Prediabetic 5.7 - 6.4 % Diabetic >or= 6.5 % Please note range changes. Performed By: #### L 3890.6006, L100.0100, L501.0250, L509.8002 #### [facility] [address] [facility] [place], [address] Hemoglobin A1c percentageOrd ered By: Nel Ruff on 03-01-2025 HbA1c (Bld) [Mass fraction] 5.2 % <5.7 [facility] Comment on above: Normal < 5.7 % Predi abetic 5.7 - 6.4 % Diabetic >or= 6.5 % Please note range changes. Hemoglobin measurementOrdere d By: Nel Ruff on 03-01-2025 Hemoglobin (Bld) [Mass/Vol] 12.6 g/dL 12.0-15.0 [facility] Hepatitis C Antibodyon 03-01 Hepatitis C Ab Non-Reactive Normal Nonreactive [facility] Comment on above: Result Comment: Reac tive: Presumptive evidence of antibodies to HCV. Follow CDC recommendations for supplemental testing. Non-Reactive: Antibodies to HCV were not detected; does not exclude the possibility of exposure to HCV Reactive Results are presumptive evidence of antibodies to HCV. Follow CDC recommendations for supplemental testing. Order confirmation testing: HCV Quant by PCR testing - HCVPCR #[id number] Non Reactive: < 0.8 Equivocal: >/= 0.8 to < 1.0 Reactive: >/= 1.0 The CDC requires that a reactive/equivocal HCV antibody result be sent out for confirmation. HCV Quant by PCR testing. Performed By: #### L 3890.6006, L100.0100, L501.0250, L509.8002 #### [facility] [address] [facility] [place], [place], [address] Immature granulocytes/100 WB C Auto (Bld)Ordered By: Nel Ruff on 03-01-2025 Immature granulocytes/100 WBC (Bld) 0.300 % 0.0-0.9 [facility] Comment on above: IG% - Immature Granu locytes (promyelocytes, myelocytes and metamyelocytes) > 1% indicates that a LEFT SHIFT is Present. L3890.6102on 03-01-2025 HEP B Surf Ag Non-Reactive Normal Nonreactive [facility] Comment on above: Result Comment: Reac tive: Presumptive evidence of HBV. Repeatedly reactive samples must be confirmed using a neutralization test ([employer] HBsAg Confirmatory Test) Non-Reactive: HBsAg not detected; does not exclude the possibility of exposure to HBV Performed By: #### L 3890.6006, L100.0100, L501.0250, L509.8002 #### [facility] [address] [facility] [place], [address] L509.4006on 03-01-2025 Rubella IgG REAC Normal Nonreactive [facility] Comment on above: Result Comment: Anti body Result: Interpretation Non-Reactive: Non-Immune Reactive: Immune The following results were obtained with the [employer] Rubella IgG assay. Results from assays of other manufacturers cannot be used interchangeably. Performed By: #### L 3890.6006, L100.0100, L501.0250, L509.8002 #### [facility] [address] [facility] [place], [address] Laboratory - Chemistry and C hemistry - challengeOrdered By: Emmanuelle Espinoza on 03-01-2025 Glucose Ql (U) Negative [facility] Laboratory - Microbiology an d Antimicrobial susceptibilityOrdered By: Nel Ruff on 03-01-2025 HBV surface Ag Ql (S) Non-Reactive Nonreactive [facility] Comment on above: Reactive: Presumptiv e evidence of HBV. Repeatedly reactive samples must be confirmed using a neutralization test ([employer] HBsAg Confirmatory Test)Non-Reactive: HBsAg not detected; does not exclude the possibility of exposure to HBV Laboratory - UrinalysisOrder ed By: Emmanuelle Espinoza on 03-01-2025 Protein Ql (U) Negative [facility] MCV (mean corpuscular volume ) determinationOrdered By: Nel Ruff on 03-01-2025 MCV (RBC) [Entitic vol] 86.6 fL 81-99 [facility] Mean corpuscular hemoglobin (MCH) determinationOrdered By: Nel Ruff on 03-01-2025 MCH (RBC) [Entitic mass] 29.2 pg 27.0-32.0 [facility] Mean corpuscular hemoglobin concentration (MCHC) determinationOrdered By: Nel Ruff on 03-01-2025 MCHC (RBC) [Mass/Vol] 33.7 g/dL 32-36 [facility] Mean platelet volume determi nationOrdered By: Nel Ruff on 03-01-2025 Platelet mean volume (Bld) [Entitic vol] 10.0 fL 6.2-12.0 [facility] Monocyte percentageOrdered B y: Nel Ruff on 03-01-2025 Monocytes/100 WBC (Bld) 8.4 % 0-10 [facility] NATERAon 03-01-2025 NATURA SEE SCANNED REPORT Normal [facility] Comment on above: Order Comment: Comme nts: elects NIPT with gender Carrier testing Performed By: #### L 3890.6006, L100.0100, L501.0250, L509.8002 #### [facility] [address] [place] [address]. [place], [address] Neutrophil percentageOrdered By: Nel Ruff on 03-01-2025 Neutrophils/100 WBC (Bld) 66.4 % 47-70 [facility] No Panel InformationOrdered By: Nel Ruff on 03-01-2025 HIV (1&2) Antibody Non-Reactive Nonreactive [facility] Comment on above: Non-ReactiveReactive Repeatedly reactive samples must be confirmed according to CDC recommended confirmatory algorithms. The subresults for either HIVAG or AHIV can be used as an aid in the selection of the confirmation algorithm for reactive samples.Send out specimens with Reactive results to [facility] for confirmation.Order the HIV antibody detection and differentiation: #[id number] Nucleated red blood cell per centageOrdered By: Nel Ruff on 03-01-2025 Nucleated RBC/100 WBC (Bld) [Ratio] 0 % 0-5 [facility] Universal Branch Consultant Office Visit Reporton 03-01-2025 Universal Branch Consultant Office Visit Report [facility]'s [address], [address] [place] [address] OFFICE VISIT Date of Service: 03/01/25 MR#: [id number] Acct: [id number] Name: DRAKE PETTY Rep #: [id number] : 1995 Provider: Dr. Emmanuelle Bello DO Age/Sex: 30/F [place] [facility] [place]: Signed Intake Vital Signs 01/02/25 08:40 01/18/25 08:47 03/01/25 13:22 Height 5 ft 4 in 5 ft 4 in 5 ft 4 in Weight: 166 lb BMI 28.5 BP 111/70 Intake Visit Reasons: 11 wk OB Inspector Canvas Products Required: No Is patient in pain?: No Allergies No Known Allergies Allergy (Verified 03/01/25 13:32) Medications ???Medication ???Instructions ???Recorded ???Confirmed ???Type lamotrigine 200 mg tablet 200 mg PO QDAY 01/02/25 03/01/25 H istory metformin 500 mg tablet,extended 1,500 mg PO QDAY 01/02/25 03/01/25 History release 24 hr PNV 153-FA 400 mcg-om3 35 mg-dha tab PO 01/11/25 03/01/25 History 25 mg-epa 5 mg-fish oil chew tablet Last Menstrual Period: 11/09/24 Zika: Zika virus screening: Negative : Yes PFSH PFSH Medical History Depression with anxiety PCOS (polycystic ovarian syndrome) Surgical History S/P wrist surgery S/P left knee surgery Family History Father Hypertension Mother Depression with anxiety Grandmother Diabetes Maternal Skin cancer, Onset Age: 75 Maternal Grandfather Diabetes Maternal Grandmother Diabetes Paternal Social History adopted: No household members: spouse and children housing: house number of children: 1 current occupational status: employed 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 Date Name GA/Weeks Outcome Route Bth Weight Gen Labor Lgth Anesthesia Del Locatn Provider FOB 08/11/22 [place] 38 live - full term forceps 6#10oz Male epidural [facility] Josue Delivery Date: 08/11/22 Last Updated by: Joslyn Gregory IOL, GDM HPI 11 wk OB Details: DRAKE PETTY is a 30 year old who presents for routine OB visit. OB Visit ASHLEE Calculator Estimated Delivery Date Method Current WG Current Estimate 09/04/25 Ultrasound #1 13w 2d Other Estimates 08/16/25 LMP (Certain) 16w 0d Expected Delivery Route/Plan Labor Preferences- CB/BF classes: [...] list details Initial Weight: 162 lb Date -???-???-???-???-?? ?-???-???-???-???-? ??-???-???- EGA Weight BP Urine Prot -???-???-???-???-?? ?-???-???-???-???-? ??-???-???- Glucose FHR FuHt Pres Dilation -???-???-???-???-?? ?-???-???-???-???-? ??-???-???- Effaced St Visit Note 01/18/25 -???-???-???-???-?? ?-???-???-???-???-? ??-???-???- 7w 2d 162 lb 2 oz (+2 oz) 122/79 -???-???-???-???-?? ?-???-???-???-???-? ??-???-???- 151 -???-???-???-???-?? ?-???-???-???-???-? ??-???-???- KW-CRL not c ons with dates. ASHLEE changed. will plan NOB labs next visit. 03/01/25 -???-???-???-???-?? ?-???-???-???-???-? ??-???-???- 13w 2d 166 lb (+4 lb) (more content not included)... Normal [facility] Platelet countOrdered By: Khalif Ruff on 03-01-2025 Platelets (Bld) [#/Vol] 258 10*3/uL 150-450 [facility] RBC Auto (Bld) [#/Vol]Ordere d By: Nel Ruff on 03-01-2025 RBC (Bld) [#/Vol] 4.32 10*6/uL 4.2-5.4 [facility] Syphilis Antibodieson 2024 Syphilis Abs Non-Reactive Normal Nonreactive [facility] Comment on above: Performed By: #### L 3890.6006, L100.0100, L501.0250, L509.8002 #### [facility] [address] [place], [address] Type AND Screenon 03-01-2025 Ab SCREEN GEL Negative Normal [facility] Comment on above: Order Comment: PN Performed By: #### L 3890.6006, L100.0100, L501.0250, L509.8002 #### [facility] [address] [place], [address] White blood cell (WBC) count Ordered By: Nel Ruff on 03-01-2025 WBC (Bld) [#/Vol] 7.9 10*3/uL 4.4-11.0 [facility] Chlamydia/GC NELLY aptimaon CHLAMY,NUC ACID Negative Normal Negative [facility] Comment on above: Performed By: #### L 3890.6006, L100.0100, L501.0250, L509.8002 #### [facility] [address] [place], [address] GC BY NUC ACID Negative Normal Negative [facility] Comment on above: Result Comment: Perf ormed at: =G - [facility] [place] [id number] Smocker: Helena Lieberman MD, Phone: [phone] Performed By: #### L 3890.6006, L100.0100, L501.0250, L509.8002 #### [facility] [address] [place], [address] Urine Cultureon 01-19-2025 URC Below infection level. Mixed Gram Positive Organisms Ragland Count 1000-10,000 MIXC Mixed contaminants. Submit a new specimen if indicated. Normal [facility] Comment on above: Performed By: #### L 3890.6006, L100.0100, L501.0250, L509.8002 #### [facility] [address] [place], [address] Chlamydia trachomatis rRNA d etection by probe and target amplification methodOrdered By: Nel Ruff on 01-18-2025 C. trachomatis rRNA NELLY+probe Ql (Unsp spec) Negative Negative [facility] Neisseria gonorrhoeae nuclei c acid detection by amplified probe techniqueOrdered By: Nel Ruff on 01-18-2025 N. gonorrhoeae DNA NELLY+probe Ql (Unsp spec) Negative Negative [facility] Comment on above: Performed at: =[address] [id number] Director: Helena Lieberman MD, Phone: [phone] Universal Branch Consultant Office Visit Reporton 01-18-2025 Universal Branch Consultant Office Visit Report [facility] [address], [address] [place] [address] OFFICE VISIT Date of Service: 01/18/25 MR#: [id number] Acct: [id number] Name: DRAKE PETTY Rep #: [id number] : 1995 Provider: BRET Gay ams Age/Sex: 29/F [place] [facility] [place]: Signed Intake Vital Signs 01/02/25 08:40 01/18/25 08:47 Height 5 ft 4 in 5 ft 4 in Weight: 162 lb 2 oz BMI 27.8 BP 122/79 H Intake Visit Reasons: NOB LMP 11/09 Chief Complaint: New OB Inspector Canvas Products Required: No Is patient in pain?: No [...] 1 current occupational status: employed 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 Date Name GA/Weeks Outcome Route Bth Weight Gen Labor Lgth Anesthesia Del Locatn Provider [...] list details Initial Weight: 162 lb Date -???-???-???-???-?? ?-???-???-???-???-? ??-???-???- EGA Weight BP Urine Prot -???-???-???-???-?? ?-???-???-???-???-? ??-???-???- Glucose FHR FuHt Pres Dilation -???-???-???-???-?? ?-???-???-???-???-? ??-???-???- Effaced St Visit Note 01/18/25 -???-???-???-???-?? ?-???-???-???-???-? ??-???-???- 7w 2d 162 lb 2 oz (+2 oz) 122/79 -???-???-???-???-?? ?-???-???-???-???-? ??-???-???- 151 -???-???-???-???-?? ?-???-???-???-???-? ??-???-???- KW-CRL not c ons with dates. ASHLEE changed. will plan NOB labs next vis (more content not included)... Normal [facility] Urine cultureOrdered By: Rajesh Ruff on 01-18-2025 Bacteria identified Cx Nom (U) Positive Abnormal [facility] Laboratory - Chemistry and C hemistry - challengeOrdered By: Emma Valenzuela on 01-02-2025 HCG ( test) Ql (U) Positive [facility] Universal Branch Consultant Office Visit Reporton 01-02-2025 Universal Branch Consultant Office Visit Report [facility] [address], [address] [place] [address] OFFICE VISIT Date of Service: 01/02/25 MR#: [id number] Acct: [id number] Name: DRAKE PETTY Rep #: [id number] : 1995 Provider: OLY hoffman Age/Sex: 29/F [place] [facility] [place]: Signed Intake Vital Signs 01/02/25 08:40 Height 5 ft 4 in Weight: 162 lb BMI 27.8 Intake Visit Reasons: Confirmation/Establ [facility] Care Inspector Canvas Products Required: No Is patient in pain?: No [...] menopausal: No Patient : Yes : No PFS Medical History (Updated 01/02/25 @ 11:10 by Emma Valenzuela NP, NUTRITIONAL HEALTH COACH-C) Depression with anxiety PCOS (polycystic ovarian syndrome) [...] home: Yes additional social history: -Josue HPI Confirmation/Establ norah Care Details: DRAKE PETTY is a 29 [...] Confirmed NOB scheduled. 01/02/25 1110 Date Emma Valenzuela NP NUTRITIONAL HEALTH COACH-C Cosigner Signature: Date (if applicable) CC: Normal [facility] Beta HCG ( test) Ql on 12-26-2024 Interpretation and review of laboratory results Abnormal [facility] FASTING:UNKNOWN FASTING: UNKNOWN [facility] hCG, Serum, Qualitativeon Beta HCG ( test) Ql Positive Abnormal See Note: [facility] Comment on above: Reference Range: Reference Range Non-: Negative : Positive CBC WITH AUTO DIFFERENTIALon 06-15-2024 AUTO NRBC 0.0 % Normal [facility] Comment on above: Performed By: #### L [id number] #### LAB [address] [place] [address] Guerrero Barnett M.D. [id number] AUTO NRBC ABS COUNT 0.00 K/mcL Normal 0.00-0.00 [facility] Comment on above: Performed By: #### L [id number] #### LAB [address] [place] [address] Guerrero Barnett M.D. [id number] BASOPHILS ABSOLUTE COUNT 0.05 K/mcL Normal 0.00-0.30 [facility] Comment on above: Performed By: #### L [id number] #### LAB [address] [place] [address] Guerrero Barnett M.D. [id number] Basophils/100 WBC (Bld) 0.8 % Normal [facility] Comment on above: Performed By: #### L [id number] #### LAB [address] [place] [address] Guerrero Barnett M.D. [id number] Eosinophils (Bld) [#/Vol] 0.18 10*3/uL Normal 0.00-0.50 [facility] Comment on above: Performed By: #### L [id number] #### LAB [address] [place] [address] Guerrero Barnett M.D. [id number] Eosinophils/100 WBC (Bld) 2.8 % [facility] Comment on above: Performed By: #### L [id number] #### LAB [address] [address] Guerrero Barnett M.D. [id number] Erythrocyte distribution width (RBC) [Ratio] 12.8 % Normal 11.6-14.8 [facility] Comment on above: Performed By: #### L [id number] #### LAB [address] [address] Guerrero Barnett M.D. [id number] Hematocrit (Bld) [Volume fraction] 40.7 % Normal 36.0-46.0 [facility] Comment on above: Performed By: #### L [id number] #### LAB [address] [address] Guerrero Barnett M.D. [id number] Hemoglobin (Bld) [Mass/Vol] 13.2 g/dL Normal 12.0-16.0 [facility] Comment on above: Performed By: #### L [id number] #### LAB [address] [address] Guerrero Barnett M.D. [id number] IG ABSOLUTE 0.02 K/mcL Normal 0.00-0.30 [facility] Comment on above: Performed By: #### L [id number] #### LAB [address] [address] Guerrero Barnett M.D. [id number] IG PERCENT 0.30 % Normal [facility] Comment on above: Result Comment: The IG parameter is the percentage of metamyelocytes, myelocytes and promyelocytes. An immature granulocyte count (IG) of 1% or more suggests the possibility of infection, an IG count of 3% is very likely related to an infection. Performed By: #### L [id number] #### LAB [address] [place] [address] Guerrero Barnett M.D. [id number] Lymphocytes (Bld) [#/Vol] 2.53 10*3/uL Normal 0.90-4.00 [facility] Comment on above: Performed By: #### L [id number] #### LAB [address] [place] [address] Guerrero Barnett M.D. [id number] Lymphocytes/100 WBC (Bld) 38.7 % Normal [facility] Comment on above: Performed By: #### L [id number] #### LAB [address] [address] Guerrero Barnett M.D. [id number] MCH (RBC) [Entitic mass] 29.0 pg Normal 26.0-34.0 [facility] Comment on above: Performed By: #### L [id number] #### [facility] LAB [address] [address] Guerrero Barnett M.D. [id number] MCV (RBC) [Entitic vol] 89.5 fL Normal 80.0-100.0 [facility] Comment on above: Performed By: #### L [id number] #### LAB [address] [address] Guerrero Barnett M.D. [id number] MEAN CORPUSCULAR HEMOGLOBIN CONC 32.4 g/dL Normal 31.0-37.0 [facility] Comment on above: Performed By: #### L [id number] #### LAB [address] [address] Guerrero Barnett M.D. [id number] Monocytes (Bld) [#/Vol] 0.64 10*3/uL Normal 0.30-0.90 [facility] Comment on above: Performed By: #### L [id number] #### LAB [address] [address] Guerrero Barnett M.D. [id number] Monocytes/100 WBC (Bld) 9.8 % Normal [facility] Comment on above: Performed By: #### L [id number] #### LAB [address] [address] Guerrero Barnett M.D. [id number] NEUTROPHILS ABSOLUTE COUNT 3.11 K/mcL Normal 1.70-7.00 [facility] Comment on above: Performed By: #### L [id number] #### LAB [address] [address] Guerrero Barnett M.D. [id number] Neutrophils/100 WBC (Bld) 47.6 % Normal [facility] Comment on above: Performed By: #### L [id number] #### [facility] LAB [address] [address] Guerrero Barnett M.D. [id number] Platelet mean volume (Bld) [Entitic vol] 9.9 fL Normal 9.4-12.4 [facility] Comment on above: Performed By: #### L [id number] #### [facility] LAB [address] [address] Guerrero Barnett M.D. [id number] Platelets (Bld) [#/Vol] 366 10*3/uL Normal 150-400 [facility] Comment on above: Performed By: #### L [id number] #### [facility] LAB [address] [address] Guerrero Barnett M.D. [id number] RBC (Bld) [#/Vol] 4.55 10*6/uL Normal 4.00-5.20 [facility] Comment on above: Performed By: #### L [id number] #### [facility] LAB [address] [address] Guerrero Barnett M.D. [id number] WBC (Bld) [#/Vol] 6.53 10*3/uL Normal 4.50-11.00 [facility] Comment on above: Performed By: #### L [id number] #### [facility] LAB [address] [address] Guerrero Barnett M.D. [id number] COMPREHENSIVE METABOLIC PANE Keo 06-15-2024 Albumin [Mass/Vol] 4.6 g/dL Normal 3.2-5.2 [facility] Comment on above: Order Comment: [facility] has implemented the eGFR calculation approach that does not have a coefficient for race that conforms to the NKF-ASN Task Force Recommendations. Performed By: #### 4 [id number] #### [facility] LAB [address] [address] Guerrero Barnett M.D. [id number] ALP [Catalytic activity/Vol] 87 U/L Normal 40-140 [facility] Comment on above: Order Comment: [facility] has implemented the eGFR calculation approach that does not have a coefficient for race that conforms to the NKF-ASN Task Force Recommendations. Performed By: #### 4 [id number] #### LAB [address] [address] Guerrero Barnett M.D. [id number] ALT [Catalytic activity/Vol] 34 U/L Normal 0-35 U/L [facility] Comment on above: Order Comment: [facility] has implemented the eGFR calculation approach that does not have a coefficient for race that conforms to the NKF-ASN Task Force Recommendations. Performed By: #### 4 6126 #### LAB [address] [address] Guerrero Barnett M.D. [id number] Anion gap [Moles/Vol] 16 mmol/L Normal 10-20 [facility] Comment on above: Order Comment: [facility] has implemented the eGFR calculation approach that does not have a coefficient for race that conforms to the NKF-ASN Task Force Recommendations. Performed By: #### 4 6126 #### LAB [address] [address] Guerrero Barnett M.D. [id number] AST [Catalytic activity/Vol] 26 U/L Normal 0-35 U/L [facility] Comment on above: Order Comment: [facility] has implemented the eGFR calculation approach that does not have a coefficient for race that conforms to the NKF-ASN Task Force Recommendations. Performed By: #### 4 6126 #### LAB [address] [address] Guerrero Barnett M.D. [id number] Bilirubin [Mass/Vol] 0.3 mg/dL Normal 0.0-1.3 [facility] Comment on above: Order Comment: [facility] has implemented the eGFR calculation approach that does not have a coefficient for race that conforms to the NKF-ASN Task Force Recommendations. Performed By: #### 4 6126 #### LAB [address] [address] Guerrero Barnett M.D. [id number] Calcium [Mass/Vol] 9.5 mg/dL Normal 8.4-10.2 [facility] Comment on above: Order Comment: [facility] has implemented the eGFR calculation approach that does not have a coefficient for race that conforms to the NKF-ASN Task Force Recommendations. Performed By: #### 4 6126 #### LAB [address] [address] Guerrero Barnett M.D. [id number] Chloride [Moles/Vol] 103 mmol/L Normal 98-108 [facility] Comment on above: Order Comment: [facility] has implemented the eGFR calculation approach that does not have a coefficient for race that conforms to the NKF-ASN Task Force Recommendations. Performed By: #### 4 6126 #### LAB [address] [address] Guerrero Barnett M.D. [id number] Creatinine [Mass/Vol] 0.64 mg/dL Normal 0.40-1.10 [facility] Comment on above: Order Comment: [facility] has implemented the eGFR calculation approach that does not have a coefficient for race that conforms to the NKF-ASN Task Force Recommendations. Performed By: #### 4 6126 #### LAB [address] [address] Guerrero Barnett M.D. [id number] EGFR 123 mL/min/1.73 m2 Normal >=60 [facility] Comment on above: Order Comment: [facility] has implemented the eGFR calculation approach that does not have a coefficient for race that conforms to the NKF-ASN Task Force Recommendations. Result Comment: Taty mated GFR was calculated using the 2020 CKD-EPI creatinine equation. Performed By: #### 4 6126 #### LAB [address] [address] Guerrero Barnett M.D. [id number] Glucose [Mass/Vol] 80 mg/dL Normal 65-99 [facility] Comment on above: Order Comment: [facility] has implemented the eGFR calculation approach that does not have a coefficient for race that conforms to the NKF-ASN Task Force Recommendations. Performed By: #### 4 6126 #### LAB [address] [address] Guerrero Barnett M.D. [id number] HCO3 (Bld) [Moles/Vol] 27 mmol/L Normal 21-32 [facility] Comment on above: Order Comment: [facility] has implemented the eGFR calculation approach that does not have a coefficient for race that conforms to the NKF-ASN Task Force Recommendations. Performed By: #### 4 6126 #### LAB [address] [address] Guerrero Barnett M.D. [id number] Potassium [Moles/Vol] 4.5 mmol/L Normal 3.5-5.1 [facility] Comment on above: Order Comment: [facility] has implemented the eGFR calculation approach that does not have a coefficient for race that conforms to the NKF-ASN Task Force Recommendations. Performed By: #### 4 6126 #### LAB [address] [address] Guerrero Barnett M.D. [id number] Protein [Mass/Vol] 7.5 g/dL Normal 6.0-8.0 [facility] Comment on above: Order Comment: [facility] has implemented the eGFR calculation approach that does not have a coefficient for race that conforms to the NKF-ASN Task Force Recommendations. Performed By: #### 4 6126 #### LAB [address] [address] Guerrero Barnett M.D. [id number] Sodium [Moles/Vol] 141 mmol/L Normal 135-145 [facility] Comment on above: Order Comment: [facility] has implemented the eGFR calculation approach that does not have a coefficient for race that conforms to the NKF-ASN Task Force Recommendations. Performed By: #### 4 6126 #### LAB [address] [place], [place] [address] Guerrero Barnett M.D. [id number] Urea nitrogen [Mass/Vol] 9 mg/dL Normal 8-25 [facility] Comment on above: Order Comment: [facility] has implemented the eGFR calculation approach that does not have a coefficient for race that conforms to the NKF-ASN Task Force Recommendations. Performed By: #### 4 6126 #### [facility] LAB [address] [address] Guerrero Barnett M.D. [id number] Urea nitrogen/Creatinine [Mass ratio] 14.1 mg/mg Normal 10.0-20.0 [facility] Comment on above: Order Comment: [facility] has implemented the eGFR calculation approach that does not have a coefficient for race that conforms to the NKF-ASN Task Force Recommendations. Performed By: #### 4 6126 #### LAB [address] [address] Guerrero Barnett M.D. [id number] HEMOGLOBIN A1Con 06-15-2024 Glucose [Mass/Vol] 111 mg/dL Normal 74-114 [facility] Comment on above: Performed By: #### 4 8202 #### MH LAB [address] [id number] Guerrero Barnett M.D. [id number] HbA1c (Bld) [Mass fraction] 5.5 % Normal 4.2-5.6 [facility] Comment on above: Performed By: #### 4 8202 #### MH LAB [address] [place], [place] [address] Guerrero Barnett M.D. [id number] LIPID PANELon 06-15-2024 Cholesterol [Mass/Vol] 200 mg/dL High 100-199 [facility] Comment on above: Performed By: #### 4 6087 #### MH LAB [address] [id number] Guerrero Barnett M.D. [id number] Cholesterol in HDL [Mass/Vol] 49 mg/dL Normal 40-59 [facility] Comment on above: Performed By: #### 4 6087 #### LAB [address] [place], [place] [address] Guerrero Barnett M.D. [id number] Cholesterol.total/Choles terol in HDL [Mass ratio] 4.1 {ratio} Normal [facility] Comment on above: Result Comment: Fema le Cholesterol/HDL Ratio: Average risk: 4.4 1/2 average risk: 3.3 2 x average risk: 7.1 Performed By: #### 4 6087 #### LAB [address] [place], [place] [address] Guerrero Barnett M.D. [id number] LDL CHOLESTEROL CALCULATED 121 mg/dL Normal 10-130 [facility] Comment on above: Result Comment: [facility] Cholesterol Education Program Guidelines: LDL Cholesterol Optimal: <100 mg/dL Near Optimal/above Optimal: 100-129 mg/dL Borderline High: 130-159 mg/dL High: 160-189 mg/dL Very High: greater than or equal to 190 mg/dL Performed By: #### 4 6087 #### LAB [address] [address] Guerrero Barnett M.D. [id number] NON HDL CHOL 151 mg/dL Normal [facility] Comment on above: Result Comment: [facility] Cholesterol Education Program Guidelines: NON HDL Cholesterol Desirable: <130 mg/dL Borderline High: 130-159 mg/dL High: 160-189 mg/dL Very High: > or = 190 mg/dL Performed By: #### 4 6087 #### LAB [address] [place], [place] [address] Guerrero Barnett M.D. [id number] Triglyceride [Mass/Vol] 150 mg/dL Normal 30-150 M [facility] Comment on above: Performed By: #### 4 6087 #### MH LAB [address] [place], [place] [address] Guerrero Barnett M.D. [id number] T4, FREEon 06-15-2024 Free T4 [Mass/Vol] 1.4 ng/dL Normal 0.7-1.7 [facility] Comment on above: Performed By: #### 4 6567 #### LAB [address] [id number] Guerrero Barnett M.D. [id number] TSHon 06-15-2024 TSH Qn 0.94 m[IU]/L Normal 0.27-4.20 [facility] Comment on above: Performed By: #### 4 6613 #### LAB [address] [address] Guerrero Barnett M.D. [id number] VITAMIN D, TOTAL, 25-OHon VITAMIN D 25-HYDROXY 42 ng/mL Normal 20-100 [facility] Comment on above: Order Comment: Vitam in D Expected Values Deficiency: 0-10 Insufficiency: 10-20 Sufficient: 20-100 Toxicity: >100 Performed By: #### 4 6678 #### LAB [address] [address] Guerrero Barnett M.D. [id number] B12/FOLATEon 04-25-2024 Cobalamin (Vitamin B12) [Mass/Vol] 583 pg/mL Normal 232-1245 [facility] Comment on above: Performed By: #### 4 6967 #### LAB [address] [address] Guerrero Barnett M.D. [id number] FOLATE > High 3.1-17.5 [facility] Comment on above: Result Comment: Defi cient <2.2 Borderline 2.2 - 3.0 Excessive >17.5 Performed By: #### 4 6967 #### LAB [address] [address] Guerrero Barnett M.D. [id number] CBC WITH AUTO DIFFERENTIALon 04-25-2024 AUTO NRBC 0.0 % Normal [facility] Comment on above: Performed By: #### L [id number] #### MH LAB [address] [address] Guerrero Barnett M.D. [id number] AUTO NRBC ABS COUNT 0.00 K/mcL Normal 0.00-0.00 [facility] Comment on above: Performed By: #### L [id number] #### LAB [address] [address] Guerrero Barnett M.D. [id number] BASOPHILS ABSOLUTE COUNT 0.06 K/mcL Normal 0.00-0.30 [facility] Comment on above: Performed By: #### L [id number] #### LAB [address] [address] Guerrero Barnett M.D. [id number] Basophils/100 WBC (Bld) 0.8 % Normal [facility] Comment on above: Performed By: #### L [id number] #### LAB [address] [address] Guerrero Barnett M.D. [id number] Eosinophils (Bld) [#/Vol] 0.16 10*3/uL Normal 0.00-0.50 [facility] Comment on above: Performed By: #### L [id number] #### LAB [address] [address] Guerrero Barnett M.D. [id number] Eosinophils/100 WBC (Bld) 2.1 % Normal [facility] Comment on above: Performed By: #### L [id number] #### LAB [address] [address] Guerrero Barnett M.D. [id number] Erythrocyte distribution width (RBC) [Ratio] 13.2 % Normal 11.6-14.8 [facility] Comment on above: Performed By: #### L [id number] #### LAB [address] [address] Guerrero Barnett M.D. [id number] Hematocrit (Bld) [Volume fraction] 39.8 % Normal 36.0-46.0 [facility] Comment on above: Performed By: #### L [id number] #### LAB [address] [place] [address] Guerrero Barnett M.D. [id number] Hemoglobin (Bld) [Mass/Vol] 13.0 g/dL Normal 12.0-16.0 [facility] Comment on above: Performed By: #### L [id number] #### LAB [address] [address] Guerrero Barnett M.D. [id number] IG ABSOLUTE 0.04 K/mcL Normal 0.00-0.30 [facility] Comment on above: Performed By: #### L [id number] #### LAB [address] [address] Guerrero Barnett M.D. [id number] IG PERCENT 0.50 % [facility] Comment on above: Result Comment: The IG parameter is the percentage of metamyelocytes, myelocytes and promyelocytes. An immature granulocyte count (IG) of 1% or more suggests the possibility of infection, an IG count of 3% is very likely related to an infection. Performed By: #### L [id number] #### LAB [address] [address] Guerrero Barnett M.D. [id number] Lymphocytes (Bld) [#/Vol] 2.69 10*3/uL Normal 0.90-4.00 [facility] Comment on above: Performed By: #### L [id number] #### LAB [address] [address] Guerrero Barnett M.D. [id number] Lymphocytes/100 WBC (Bld) 34.7 % [facility] Comment on above: Performed By: #### L [id number] #### LAB [address] [address] Guerrero Barnett M.D. [id number] MCH (RBC) [Entitic mass] 29.3 pg Normal 26.0-34.0 [facility] Comment on above: Performed By: #### L [id number] #### LAB [address] [address] Guerrero Barnett M.D. [id number] MCV (RBC) [Entitic vol] 89.8 fL Normal 80.0-100.0 [facility] Comment on above: Performed By: #### L [id number] #### LAB [address] [address] Guerrero Barnett M.D. [id number] MEAN CORPUSCULAR HEMOGLOBIN CONC 32.7 g/dL Normal 31.0-37.0 [facility] Comment on above: Performed By: #### L [id number] #### LAB [address] [address] Guerrero Barnett M.D. [id number] Monocytes (Bld) [#/Vol] 0.67 10*3/uL Normal 0.30-0.90 [facility] Comment on above: Performed By: #### L [id number] #### LAB [address] [address] Guerrero Barnett M.D. [id number] Monocytes/100 WBC (Bld) 8.6 % Normal [facility] Comment on above: Performed By: #### L [id number] #### LAB [address] [address] Guerrero Barnett M.D. [id number] NEUTROPHILS ABSOLUTE COUNT 4.14 K/mcL Normal 1.70-7.00 [facility] Comment on above: Performed By: #### L [id number] #### LAB [address] [address] Guerrero Barnett M.D. [id number] Neutrophils/100 WBC (Bld) 53.3 % Normal [facility] Comment on above: Performed By: #### L [id number] #### LAB [address] [address] Guerrero Barnett M.D. [id number] Platelet mean volume (Bld) [Entitic vol] 9.6 fL Normal 9.4-12.4 [facility] Comment on above: Performed By: #### L [id number] #### LAB [address] [place] [address] Guerrero Barnett M.D. [id number] Platelets (Bld) [#/Vol] 353 10*3/uL Normal 150-400 [facility] Comment on above: Performed By: #### L [id number] #### MH LAB [address] [id number] Guerrero Barnett M.D. [id number] RBC (Bld) [#/Vol] 4.43 10*6/uL Normal 4.00-5.20 [facility] Comment on above: Performed By: #### L [id number] #### MH LAB [address] [id number] Guerrero Barnett M.D. [id number] WBC (Bld) [#/Vol] 7.76 10*3/uL Normal 4.50-11.00 [facility] Comment on above: Performed By: #### L [id number] #### LAB [address] [address] Guerrero Barnett M.D. [id number] IRON STUDY WITH FERRITINon 0 - Ferritin [Mass/Vol] 94 ng/mL Normal 13-150 [facility] Comment on above: Performed By: #### 4 7645 #### MH LAB [address] [address] Guerrero Barnett M.D. [id number] Iron [Mass/Vol] 85 ug/dL Normal 30-160 [facility] Comment on above: Performed By: #### 4 7645 #### LAB [address] [address] Guerrero Barnett M.D. [id number] IRON SATURATION 22 % Normal 20-50 [facility] Comment on above: Performed By: #### 4 7645 #### MH LAB [address] [address] Guerrero Barnett M.D. [id number] TIBC (CALCULATED) 388 mcg/dL Normal 225-430 [facility] Comment on above: Performed By: #### 4 7645 #### MH LAB [address] [address] Guerrero Barnett M.D. [id number] 25 0H VITAMIN D LEVELon 04-0 25 0H VITAMIN D LEVEL 59.1 NG/ML Normal [facility] Comment on above: Result Comment: DEFICIENT <20 NG/ML INSUFFICIENT 20-<30 NG/ML SUFFICIENT 30-100 NG/ML POTENTIAL TOXICITY >100 NG/ML Performed By: #### F X, CMPF, LIP2, ACBC, TSH2 #### Testing performed at [address] [address] CBCon 12-13-2023 ABSOLUTE BAS 0.0 10*3/uL Normal 0.0-0.2 [facility] Comment on above: Performed By: #### F X, CMPF, LIP2, ACBC, TSH2 #### Testing performed at [address] [address] ABSOLUTE EOS 0.1 10*3/uL Normal 0.0-0.7 [facility] Comment on above: Performed By: #### F X, CMPF, LIP2, ACBC, TSH2 #### Testing performed at [address] [address] ABSOLUTE NEUTROPHIL COUNT 4.2 10*3/uL Normal 1.4-6.5 [facility] Comment on above: Performed By: #### F X, CMPF, LIP2, ACBC, TSH2 #### Testing performed at [address] [address] Basophils/100 WBC (Bld) 0.2 % Normal 0.0-2.0 [facility] Comment on above: Performed By: #### F X, CMPF, LIP2, ACBC, TSH2 #### Testing performed at [address] [address] DTYPE AUTO DIFF Normal [facility] Comment on above: Performed By: #### F X, CMPF, LIP2, ACBC, TSH2 #### Testing performed at [address] [address] Eosinophils/100 WBC (Bld) 0.8 % Normal 0.0-11.0 [facility] Comment on above: Performed By: #### F X, CMPF, LIP2, ACBC, TSH2 #### Testing performed at [address] [address] Lymphocytes (Bld) [#/Vol] 2.2 10*3/uL Normal 1.2-3.4 [facility] Comment on above: Performed By: #### F X, CMPF, LIP2, ACBC, TSH2 #### Testing performed at [address] [address] Lymphocytes/100 WBC (Bld) 31.4 % Normal 20.0-55.0 [facility] Comment on above: Performed By: #### F X, CMPF, LIP2, ACBC, TSH2 #### Testing performed at [address] [address] Monocytes (Bld) [#/Vol] 0.5 10*3/uL Normal 0.0-0.7 [facility] Comment on above: Performed By: #### F X, CMPF, LIP2, ACBC, TSH2 #### Testing performed at [address] [address] Monocytes/100 WBC (Bld) 7.1 % Normal 0.0-10.0 [facility] Comment on above: Performed By: #### F X, CMPF, LIP2, ACBC, TSH2 #### Testing performed at [address] [address] Neutrophils/100 WBC (Bld) 60.5 % Normal 37.0-75.0 [facility] Comment on above: Performed By: #### F X, CMPF, LIP2, ACBC, TSH2 #### Testing performed at [address] [address] Erythrocyte distribution width (RBC) [Ratio] 13.8 % Normal 11.5-14.5 [facility] Comment on above: Performed By: #### F X, CMPF, LIP2, ACBC, TSH2 #### Testing performed at [address] [address] Hematocrit (Bld) [Volume fraction] 39.4 % Normal 36.0-48.0 [facility] Comment on above: Performed By: #### F X, CMPF, LIP2, ACBC, TSH2 #### Testing performed at [address] [address] Hemoglobin (Bld) [Mass/Vol] 13.5 g/dL Normal 12.0-16.0 [facility] Comment on above: Performed By: #### F X, CMPF, LIP2, ACBC, TSH2 #### Testing performed at [address] [address] MCH (RBC) [Entitic mass] 29.2 pg Normal 26.0-35.0 [facility] Comment on above: Performed By: #### F X, CMPF, LIP2, ACBC, TSH2 #### Testing performed at [address] [address] MCHC (RBC) [Mass/Vol] 34.2 g/dL Normal 27.0-37.0 [facility] Comment on above: Performed By: #### F X, CMPF, LIP2, ACBC, TSH2 #### Testing performed at [address] [address] MCV (RBC) [Entitic vol] 85.4 fL Normal 80.0-100.0 [facility] Comment on above: Performed By: #### F X, CMPF, LIP2, ACBC, TSH2 #### Testing performed at [address] [address] Platelet mean volume (Bld) [Entitic vol] 8.3 fL Normal 7.4-11.0 [facility] Comment on above: Performed By: #### F X, CMPF, LIP2, ACBC, TSH2 #### Testing performed at [address] [address] Platelets (Bld) [#/Vol] 270 10*3/uL Normal 130-400 [facility] Comment on above: Performed By: #### F X, CMPF, LIP2, ACBC, TSH2 #### Testing performed at [address] [address] RBC (Bld) [#/Vol] 4.61 10*6/uL Normal 4.0-5.4 [facility] Comment on above: Performed By: #### F X, CMPF, LIP2, ACBC, TSH2 #### Testing performed at [address] [address] WBC (Bld) [#/Vol] 7.0 10*3/uL Normal 3.6-11.0 [facility] Comment on above: Performed By: #### F X, CMPF, LIP2, ACBC, TSH2 #### Testing performed at [address] [address] CMP FASTINGon 12-13-2023 A:G RATIO 2.0 RATIO Normal [facility] Comment on above: Performed By: #### F X, CMPF, LIP2, ACBC, TSH2 #### Testing performed at [address] [address] ALBUMIN 5.0 G/dl Normal 3.5-5.0 [facility] Comment on above: Performed By: #### F X, CMPF, LIP2, ACBC, TSH2 #### Testing performed at [address] [address] ALP [Catalytic activity/Vol] 83 U/L Normal 38-126 [facility] Comment on above: Performed By: #### F X, CMPF, LIP2, ACBC, TSH2 #### Testing performed at [address] [address] ALT [Catalytic activity/Vol] 45 U/L High <35 [facility] Comment on above: Performed By: #### F X, CMPF, LIP2, ACBC, TSH2 #### Testing performed at [address] [address] AST [Catalytic activity/Vol] 33 U/L Normal 14-36 [facility] Comment on above: Performed By: #### F X, CMPF, LIP2, ACBC, TSH2 #### Testing performed at [address] [address] Bilirubin [Mass/Vol] 0.4 mg/dL Normal 0.2-1.3 [facility] Comment on above: Performed By: #### F X, CMPF, LIP2, ACBC, TSH2 #### Testing performed at [address] [address] Calcium [Mass/Vol] 9.0 mg/dL Normal 8.4-10.2 [facility] Comment on above: Performed By: #### F X, CMPF, LIP2, ACBC, TSH2 #### Testing performed at [address] [address] Chloride [Moles/Vol] 105 mmol/L Normal 98-107 [facility] Comment on above: Result Comment: Logan lenz note: Triglyceride levels of 600mg/dL or higher may positively bias chloride results by approximately 2.1 mmol Performed By: #### F X, CMPF, LIP2, ACBC, TSH2 #### [place] [address] CO2 [Moles/Vol] 25 mmol/L Normal 22-30 [facility] Comment on above: Performed By: #### F X, CMPF, LIP2, ACBC, TSH2 #### [place] [address] Creatinine [Mass/Vol] 0.60 mg/dL Low 0.70-1.20 [facility] Comment on above: Performed By: #### F X, CMPF, LIP2, ACBC, TSH2 #### Testing performed at [place] [id number] EST. GFR, 153 ml/min/1.73sq.m [facility] Comment on above: Performed By: #### F X, CMPF, LIP2, ACBC, TSH2 #### Testing performed at [place] [id number] EST. GFR,Non 127 ml/min/1.73sq.m [facility] Comment on above: Performed By: #### F X, CMPF, LIP2, ACBC, TSH2 #### [place] [address] GFR Information Average GFR for 20-29 years old = 116. Normal [facility] Comment on above: Result Comment: C Consultant iram Kidney disease, GFR = <60. Kidney failure, GFR = <15. The GFR estimate is not adjusted for extreme body surface area or acute process, nor has it been validated for women or ethnic groups other than and . Performed By: #### F X, CMPF, LIP2, ACBC, TSH2 #### Testing performed at [address] [address] Glucose [Mass/Vol] 108 mg/dL High 70-100 [facility] Comment on above: Result Comment: NORMAL <100 mg/dL PREDIABETES 101-126 mg/dL DIABETES 126 mg/dL or higher Performed By: #### F X, CMPF, LIP2, ACBC, TSH2 #### Testing performed at [address] [address] Potassium [Moles/Vol] 4.1 mmol/L Normal 3.5-5.1 [facility] Comment on above: Performed By: #### F X, CMPF, LIP2, ACBC, TSH2 #### Testing performed at [address] [address] Protein [Mass/Vol] 7.5 g/dL Normal 6.3-8.2 [facility] Comment on above: Performed By: #### F X, CMPF, LIP2, ACBC, TSH2 #### Testing performed at [address] [address] Sodium [Moles/Vol] 139 mmol/L Normal 137-145 [facility] Comment on above: Performed By: #### F X, CMPF, LIP2, ACBC, TSH2 #### Testing performed at [address] [address] Urea nitrogen [Mass/Vol] 10 mg/dL Normal 7-20 [facility] Comment on above: Performed By: #### F X, CMPF, LIP2, ACBC, TSH2 #### Testing performed at [address] [address] FAX REQUESTon 12-13-2023 FAX TO [phone] Normal [facility] Comment on above: Performed By: #### F X, CMPF, LIP2, ACBC, TSH2 #### Testing performed at [address] [address] FREE T4on 12-13-2023 Free T4 [Mass/Vol] 1.06 ng/dL Normal 0.78-2.19 [facility] Comment on above: Performed By: #### T 42, VITD #### Testing performed at [address] [address] HEMOGLOBIN A1Con 12-13-2023 Glucose [Mass/Vol] 108 mg/dL Normal [facility] Comment on above: Performed By: #### H A1CT #### Testing performed at [address] [address] HbA1c (Bld) [Mass fraction] 5.4 % Normal 0-6 [facility] Comment on above: Result Comment: NORMAL <5.7% PREDIABETES 5.7-6.4% DIABETES 6.5% OR HIGHER Performed By: #### H A1CT #### Testing performed at [address] [address] LIPID PROFILEon 12-13-2023 Cholesterol [Mass/Vol] 186 mg/dL Normal 107-217 [facility] Comment on above: Performed By: #### F X, CMPF, LIP2, ACBC, TSH2 #### Testing performed at [address] [address] Cholesterol in HDL [Mass/Vol] 40 mg/dL Normal 33-75 [facility] Comment on above: Performed By: #### F X, CMPF, LIP2, ACBC, TSH2 #### Testing performed at [address] [address] Cholesterol in LDL [Mass/Vol] 126 mg/dL High <100 [facility] Comment on above: Performed By: #### F X, CMPF, LIP2, ACBC, TSH2 #### Testing performed at [address] [address] Cholesterol in VLDL [Mass/Vol] 20 mg/dL Normal 5-25 [facility] Comment on above: Performed By: #### F X, CMPF, LIP2, ACBC, TSH2 #### Testing performed at [address] [address] Cholesterol.total/Choles terol in HDL [Mass ratio] 4.65 {ratio} Normal [facility] Comment on above: Result Comment: RISK TOTAL/HDL RATIO MEN WOMEN 1/2 AVERAGE 3.43 3.27 AVERAGE 4.97 4.44 2X AVERAGE 9.55 7.05 3X AVERAGE 23.99 11.04 Performed By: #### F X, CMPF, LIP2, ACBC, TSH2 #### Testing performed at [address] [address] Triglyceride [Mass/Vol] 101 mg/dL Normal 0-150 [facility] Comment on above: Performed By: #### F X, CMPF, LIP2, ACBC, TSH2 #### Testing performed at [address] [address] TSHon 12-13-2023 TSH 1.080 uIU/ML Normal 0.465-4.680 [facility] Comment on above: Performed By: #### F X, CMPF, LIP2, ACBC, TSH2 #### Testing performed at [address] [address] POCT INFLUENZA, A Bon 2023 FLUAV RNA NELLY+probe Ql (Unsp spec) Negative Negative, Not Tested, Invalid, Not Detected [facility] FLUBV RNA NELLY+probe Ql (Unsp spec) Negative Negative, Not Tested, Invalid, Not Detected [facility] Internal controls [facility] POCT RAPID STREP Aon 024 S. pyogenes Ag Ql (Throat) Negative (+/-) [facility] Internal controls [facility] THROAT CULTUREon 12-07-2023 Throat culture SPECIMEN DESCRIPTION THROAT SWAB CULTURE USUAL OROPHARYNGEAL RAJAN * Result Note: Testing performed at [place] [id number] * REPORT STATUS 12/09/2023 * Result Note: FINAL * [facility] Comment on above: Performed By: #### T HRC #### Testing performed at [address] [address] PAP IG,RFX HPV ASCUon 2023 . . Normal [facility] . Comment Normal [facility] Comment on above: Result Comment: (NOT E) The HPV DNA reflex criteria were not met with this specimen result therefore, no HPV testing was performed. Source.............Cervix;Endocervix LMP / Prev Treat...RFD=[id number] No. of containers..01 ThinPrep Vial DIAGNOSIS: Comment [facility] Comment on above: Result Comment: NEGA TIVE FOR INTRAEPITHELIAL LESION OR MALIGNANCY. NOTE: Comment [facility] Comment on above: Result Comment: (NOT E) The Pap smear is a screening test designed to aid in the detection of premalignant and malignant conditions of the uterine cervix. It is not a diagnostic procedure and should not be used as the sole means of detecting cervical cancer. Both false-positive and false-negative reports do occur. PERFORMED BY: Comment [facility] Comment on above: Result Comment: Yadira Palaico, Kennel Supervisor (ASCP) SPECIMEN ADEQUACY: Comment [facility] Comment on above: Result Comment: (NOT E) Satisfactory for evaluation. Endocervical and/or squamous metaplastic cells (endocervical component) are present. TEST METHODOLOGY: Comment [facility] Comment on above: Result Comment: (NOT E) This liquid based ThinPrep(R) pap test was screened with the use of an image guided system. PERFORMED AT [facility] POCT INFLUENZA, A Bon 2023 FLUAV RNA NELLY+probe Ql (Unsp spec) Negative Negative, Not Tested, Invalid [facility] FLUBV RNA NELLY+probe Ql (Unsp spec) Negative Negative, Not Tested, Invalid [facility] Internal controls [facility] SARS-COV-2 RAPID AG (WIC)on 09-29-2023 SARS-CoV-2 (COVID-19) RNA NELLY+probe Ql (Unsp spec) Not detected Normal NOT DETECTED [facility] Comment on above: Result Comment: [...] LIP2, ACBC, TSH2 #### Testing performed at [address] [address] NARRATIVE This test was performed using lateral flow immunoassay and has been approved as Emergency Use Authorization (EUA). This test does not differentiate between SARS-CoV and SARS-CoV2. Normal [facility] Comment on above: Performed By: #### F X, CMPF, LIP2, ACBC, TSH2 #### Testing performed at [address] [address] SARS-CoV-2 (COVID-19) RNA NA A+probe Ql (Unsp spec)on 09-29-2023 NARRATIVE -1 This test was performed using lateral flow immunoassay and has been approved as Emergency Use Authorization (EUA). This test does not differentiate between SARS-CoV and SARS-CoV2. [facility] SARS-CoV-2 (COVID-19) Ag IA.rapid Ql (Resp) Not detected NOT DETECTED [facility] Comment on above: Negative results kalin uld [...] clinical signs and symptoms consistent with COVID-19. [facility] TESTOSTERONE, FREEon 023 FREE TESTOSTERONE 3.1 [facility] Comment on above: Result Comment: Refe rence range: 0.0 to 4.2 Unit: pg/mL [facility] Performed By: #### F X, CMPF, LIP2, ACBC, TSH2 #### Testing performed at [address] [address] DHEA-SULFATEon 07-10-2023 DHEA-SULFATE 632.0 [facility] Comment on above: Result Comment: Refe rence range: 84.8 to 378.0 Unit: ug/dL [facility] Performed By: #### F X, CMPF, LIP2, ACBC, TSH2 #### Testing performed at [address] [address] 25 0H VITAMIN D LEVELon 06-14 25 0H VITAMIN D LEVEL 61.1 NG/ML Normal [facility] Comment on above: Result Comment: DEFICIENT <20 NG/ML INSUFFICIENT 20-<30 NG/ML SUFFICIENT 30-100 NG/ML POTENTIAL TOXICITY >100 NG/ML Performed By: #### V ITD #### Testing performed at [address] [address] CBCon 07-09-2023 ABSOLUTE BAS 0.1 10*3/uL Normal 0.0-0.2 [facility] Comment on above: Performed By: #### F X, CMPF, LIP2, ACBC, TSH2 #### Testing performed at [address] [address] ABSOLUTE EOS 0.2 10*3/uL Normal 0.0-0.7 [facility] Comment on above: Performed By: #### F X, CMPF, LIP2, ACBC, TSH2 #### Testing performed at [address] [address] ABSOLUTE NEUTROPHIL COUNT 3.9 10*3/uL Normal 1.4-6.5 [facility] Comment on above: Performed By: #### F X, CMPF, LIP2, ACBC, TSH2 #### Testing performed at [address] [place] [address] Basophils/100 WBC (Bld) 1.1 % Normal 0.0-2.0 [facility] Comment on above: Performed By: #### F X, CMPF, LIP2, ACBC, TSH2 #### Testing performed at [address] [place] [address] DTYPE AUTO DIFF Normal [facility] Comment on above: Performed By: #### F X, CMPF, LIP2, ACBC, TSH2 #### Testing performed at [address] [address] Eosinophils/100 WBC (Bld) 2.5 % Normal 0.0-11.0 [facility] Comment on above: Performed By: #### F X, CMPF, LIP2, ACBC, TSH2 #### Testing performed at [address] [address] Lymphocytes (Bld) [#/Vol] 2.2 10*3/uL Normal 1.2-3.4 [facility] Comment on above: Performed By: #### F X, CMPF, LIP2, ACBC, TSH2 #### Testing performed at [address] [address] Lymphocytes/100 WBC (Bld) 32.1 % Normal 20.0-55.0 [facility] Comment on above: Performed By: #### F X, CMPF, LIP2, ACBC, TSH2 #### Testing performed at [address] [address] Monocytes (Bld) [#/Vol] 0.6 10*3/uL Normal 0.0-0.7 [facility] Comment on above: Performed By: #### F X, CMPF, LIP2, ACBC, TSH2 #### Testing performed at [address] [address] Monocytes/100 WBC (Bld) 8.0 % Normal 0.0-10.0 [facility] Comment on above: Performed By: #### F X, CMPF, LIP2, ACBC, TSH2 #### Testing performed at [address] [address] Neutrophils/100 WBC (Bld) 56.3 % Normal 37.0-75.0 [facility] Comment on above: Performed By: #### F X, CMPF, LIP2, ACBC, TSH2 #### Testing performed at [address] [address] Erythrocyte distribution width (RBC) [Ratio] 13.6 % Normal 11.5-14.5 [facility] Comment on above: Performed By: #### F X, CMPF, LIP2, ACBC, TSH2 #### Testing performed at [address] [address] Hematocrit (Bld) [Volume fraction] 43.1 % Normal 36.0-48.0 [facility] Comment on above: Performed By: #### F X, CMPF, LIP2, ACBC, TSH2 #### Testing performed at [address] [address] Hemoglobin (Bld) [Mass/Vol] 14.2 g/dL Normal 12.0-16.0 [facility] Comment on above: Performed By: #### F X, CMPF, LIP2, ACBC, TSH2 #### Testing performed at [address] [address] MCH (RBC) [Entitic mass] 28.5 pg Normal 26.0-35.0 [facility] Comment on above: Performed By: #### F X, CMPF, LIP2, ACBC, TSH2 #### Testing performed at [address] [address] MCHC (RBC) [Mass/Vol] 33.0 g/dL Normal 27.0-37.0 [facility] Comment on above: Performed By: #### F X, CMPF, LIP2, ACBC, TSH2 #### Testing performed at [address] [address] MCV (RBC) [Entitic vol] 86.3 fL Normal 80.0-100.0 [facility] Comment on above: Performed By: #### F X, CMPF, LIP2, ACBC, TSH2 #### Testing performed at [address] [address] Platelet mean volume (Bld) [Entitic vol] 7.5 fL Normal 7.4-11.0 [facility] Comment on above: Performed By: #### F X, CMPF, LIP2, ACBC, TSH2 #### Testing performed at [address] [address] Platelets (Bld) [#/Vol] 320 10*3/uL Normal 130-400 [facility] Comment on above: Performed By: #### F X, CMPF, LIP2, ACBC, TSH2 #### Testing performed at [address] [address] RBC (Bld) [#/Vol] 5.00 10*6/uL Normal 4.0-5.4 [facility] Comment on above: Performed By: #### F X, CMPF, LIP2, ACBC, TSH2 #### [place] [address] WBC (Bld) [#/Vol] 6.9 10*3/uL Normal 3.6-11.0 [facility] Comment on above: Performed By: #### F X, CMPF, LIP2, ACBC, TSH2 #### Testing performed at [place] [id number] CMP FASTINGon 07-09-2023 A:G RATIO 1.6 RATIO Normal [facility] Comment on above: Performed By: #### F X, CMPF, LIP2, ACBC, TSH2 #### [place] [address] ALBUMIN 4.9 G/dl Normal 3.5-5.0 [facility] Comment on above: Performed By: #### F X, CMPF, LIP2, ACBC, TSH2 #### Testing performed at [address] [address] ALP [Catalytic activity/Vol] 91 U/L Normal 38-126 [facility] Comment on above: Performed By: #### F X, CMPF, LIP2, ACBC, TSH2 #### Testing performed at [address] [address] ALT [Catalytic activity/Vol] 40 U/L High <35 [facility] Comment on above: Performed By: #### F X, CMPF, LIP2, ACBC, TSH2 #### Testing performed at [address] [address] AST [Catalytic activity/Vol] 34 U/L Normal 14-36 [facility] Comment on above: Performed By: #### F X, CMPF, LIP2, ACBC, TSH2 #### Testing performed at [address] [address] Bilirubin [Mass/Vol] 0.6 mg/dL Normal 0.2-1.3 [facility] Comment on above: Performed By: #### F X, CMPF, LIP2, ACBC, TSH2 #### Testing performed at [address] [address] Calcium [Mass/Vol] 9.3 mg/dL Normal 8.4-10.2 [facility] Comment on above: Performed By: #### F X, CMPF, LIP2, ACBC, TSH2 #### Testing performed at [address] [address] Chloride [Moles/Vol] 102 mmol/L Normal 98-107 [facility] Comment on above: Result Comment: Logan lenz note: Triglyceride levels of 600mg/dL or higher may positively bias chloride results by approximately 2.1 mmol Performed By: #### F X, CMPF, LIP2, ACBC, TSH2 #### [place] [address] CO2 [Moles/Vol] 25 mmol/L Normal 22-30 [facility] Comment on above: Performed By: #### F X, CMPF, LIP2, ACBC, TSH2 #### Testing performed at [address] [address] Creatinine [Mass/Vol] 0.70 mg/dL Normal 0.70-1.20 [facility] Comment on above: Performed By: #### F X, CMPF, LIP2, ACBC, TSH2 #### Testing performed at [address] [address] EST. GFR, 128 ml/min/1.73sq.m [facility] Comment on above: Performed By: #### F X, CMPF, LIP2, ACBC, TSH2 #### Testing performed at [address] [address] EST. GFR,Non 106 ml/min/1.73sq.m [facility] Comment on above: Performed By: #### F X, CMPF, LIP2, ACBC, TSH2 #### Testing performed at [address] [address] GFR Information Average GFR for 20-29 years old = 116. Normal [facility] Comment on above: Result Comment: C Consultant iram Kidney disease, GFR = <60. Kidney failure, GFR = <15. The GFR estimate is not adjusted for extreme body surface area or acute process, nor has it been validated for women or ethnic groups other than and . Performed By: #### F X, CMPF, LIP2, ACBC, TSH2 #### Testing performed at [address] [address] Glucose [Mass/Vol] 90 mg/dL Normal 70-100 [facility] Comment on above: Result Comment: NORMAL <100 mg/dL PREDIABETES 101-126 mg/dL DIABETES 126 mg/dL or higher Performed By: #### F X, CMPF, LIP2, ACBC, TSH2 #### Testing performed at [address] [address] Potassium [Moles/Vol] 4.0 mmol/L Normal 3.5-5.1 [facility] Comment on above: Performed By: #### F X, CMPF, LIP2, ACBC, TSH2 #### Testing performed at [address] [address] Protein [Mass/Vol] 8.0 g/dL Normal 6.3-8.2 [facility] Comment on above: Performed By: #### F X, CMPF, LIP2, ACBC, TSH2 #### Testing performed at [address] [address] Sodium [Moles/Vol] 138 mmol/L Normal 137-145 [facility] Comment on above: Performed By: #### F X, CMPF, LIP2, ACBC, TSH2 #### Testing performed at [address] [address] Urea nitrogen [Mass/Vol] 12 mg/dL Normal 7-20 [facility] Comment on above: Performed By: #### F X, CMPF, LIP2, ACBC, TSH2 #### Testing performed at [address] [address] HEMOGLOBIN A1Con 07-09-2023 Glucose [Mass/Vol] 108 mg/dL Normal [facility] Comment on above: Performed By: #### H A1CT #### Testing performed at [address] [address] HbA1c (Bld) [Mass fraction] 5.4 % Normal 0-6 [facility] Comment on above: Result Comment: NORMAL <5.7% PREDIABETES 5.7-6.4% DIABETES 6.5% OR HIGHER Performed By: #### H A1CT #### Testing performed at [address] [address] TESTOSTER.FREE-TOTALon 04-08 FREE TESTOSTERONE 3.7 Normal [facility] Comment on above: Result Comment: Refe rence range: 0.0 to 4.2 Unit: pg/mL [facility] Performed By: #### F X, CMPF, LIP2, ACBC, TSH2 #### Testing performed at [address] [address] DHEA-SULFATEon 04-02-2023 DHEA-SULFATE 573.0 High [facility] Comment on above: Result Comment: Refe rence range: 84.8 to 378.0 Unit: ug/dL PERFORMED AT [facility] Performed By: #### F X, CMPF, LIP2, ACBC, TSH2 #### Testing performed at [address] [address] TESTOSTER.FREE-TOTALon 04-02 Testosterone [Mass/Vol] 46 ng/dL Normal [facility] Comment on above: Result Comment: Refe rence range: 13 to 71 Unit: ng/dL PERFORMED AT [facility] Performed By: #### F X, CMPF, LIP2, ACBC, TSH2 #### Testing performed at [address] [address] 25 0H VITAMIN D LEVELon 03-14 25 0H VITAMIN D LEVEL 28.5 NG/ML Normal [facility] Comment on above: Result Comment: DEFICIENT <20 NG/ML INSUFFICIENT 20-<30 NG/ML SUFFICIENT 30-100 NG/ML POTENTIAL TOXICITY >100 NG/ML Performed By: #### V ITD #### Testing performed at [address] [address] CMP FASTINGon 04-01-2023 A:G RATIO 1.5 RATIO Normal [facility] Comment on above: Performed By: #### F X, CMPF, LIP2, ACBC, TSH2 #### Testing performed at [address] [address] ALBUMIN 4.7 G/dl Normal 3.5-5.0 [facility] Comment on above: Performed By: #### F X, CMPF, LIP2, ACBC, TSH2 #### Testing performed at [address] [address] ALP [Catalytic activity/Vol] 100 U/L Normal 38-126 [facility] Comment on above: Performed By: #### F X, CMPF, LIP2, ACBC, TSH2 #### Testing performed at [address] [address] ALT [Catalytic activity/Vol] 36 U/L High <35 [facility] Comment on above: Performed By: #### F X, CMPF, LIP2, ACBC, TSH2 #### Testing performed at [address] [address] AST [Catalytic activity/Vol] 31 U/L Normal 14-36 [facility] Comment on above: Performed By: #### F X, CMPF, LIP2, ACBC, TSH2 #### Testing performed at [address] [address] Bilirubin [Mass/Vol] 0.5 mg/dL Normal 0.2-1.3 [facility] Comment on above: Performed By: #### F X, CMPF, LIP2, ACBC, TSH2 #### Testing performed at [address] [address] Calcium [Mass/Vol] 9.5 mg/dL Normal 8.4-10.2 [facility] Comment on above: Performed By: #### F X, CMPF, LIP2, ACBC, TSH2 #### Testing performed at [address] [address] Chloride [Moles/Vol] 100 mmol/L Normal 98-107 [facility] Comment on above: Result Comment: Plea note: Triglyceride levels of 600mg/dL or higher may positively bias chloride results by approximately 2.1 mmol Performed By: #### F X, CMPF, LIP2, ACBC, TSH2 #### [place] [address] CO2 [Moles/Vol] 25 mmol/L Normal 22-30 [facility] Comment on above: Performed By: #### F X, CMPF, LIP2, ACBC, TSH2 #### [place] [address] Creatinine [Mass/Vol] 0.64 mg/dL Low 0.70-1.20 [facility] Comment on above: Performed By: #### F X, CMPF, LIP2, ACBC, TSH2 #### Testing performed at [place] [id number] EST. GFR, 142 ml/min/1.73sq.m [facility] Comment on above: Performed By: #### F X, CMPF, LIP2, ACBC, TSH2 #### Testing performed at [place] [id number] EST. GFR,Non 117 ml/min/1.73sq.m [facility] Comment on above: Performed By: #### F X, CMPF, LIP2, ACBC, TSH2 #### [place] [address] GFR Information Average GFR for 20-29 years old = 116. Normal [facility] Comment on above: Result Comment: C Consultant iram Kidney disease, GFR = <60. Kidney failure, GFR = <15. The GFR estimate is not adjusted for extreme body surface area or acute process, nor has it been validated for women or ethnic groups other than and . Performed By: #### F X, CMPF, LIP2, ACBC, TSH2 #### Testing performed at [place] [id number] Glucose [Mass/Vol] 80 mg/dL Normal 70-100 [facility] Comment on above: Result Comment: NORMAL <100 mg/dL PREDIABETES 101-126 mg/dL DIABETES 126 mg/dL or higher Performed By: #### F X, CMPF, LIP2, ACBC, TSH2 #### Testing performed at [address] [address] Potassium [Moles/Vol] 4.2 mmol/L Normal 3.5-5.1 [facility] Comment on above: Performed By: #### F X, CMPF, LIP2, ACBC, TSH2 #### Testing performed at [address] [address] Protein [Mass/Vol] 7.8 g/dL Normal 6.3-8.2 [facility] Comment on above: Performed By: #### F X, CMPF, LIP2, ACBC, TSH2 #### Testing performed at [address] [address] Sodium [Moles/Vol] 139 mmol/L Normal 137-145 [facility] Comment on above: Performed By: #### F X, CMPF, LIP2, ACBC, TSH2 #### Testing performed at [address] [address] Urea nitrogen [Mass/Vol] 12 mg/dL Normal 7-20 [facility] Comment on above: Performed By: #### F X, CMPF, LIP2, ACBC, TSH2 #### Testing performed at [address] [address] FAX REQUESTon 04-01-2023 FAX TO [phone] Normal [facility] Comment on above: Performed By: #### F X, CMPF, LIP2, ACBC, TSH2 #### Testing performed at [address] [address] Provider Note - ED v3on 12-13 Provider [...] never smoker Alcohol Use: denies Drug Use: denies,ALLERGIES/IN TOLERANCES: No Known Allergies HEALTH HISTORY: No documented data. OUTPATIENT MEDICATIONS: Home Medications Review Status for Reconciliation: Complete Med Status: Patient Currently Takes Medications Drug Name: vitamin Instructions: null Drug Name: Vitamin D3 Instructions: null Drug Name: penicillin V potassium 500 mg oral tablet Instructions: 1 tab(s) orally 2 times a day Drug Name: brompheniramine/dex tromethorphan/pseud oephedrine 2 mg-10 mg-30 mg/5 mL oral syrup [...] SIGNS: T PRBP SpO2O2(LPM) %FiO2 Method 07-Jan-2023 09:04:[id number] 44/87 98 MDM MDM/ED COURSE: Ladonna is a [...] plan of care and was discharged. DISPOSITION Diagnosis/Annotatio n: ED Dx Name:Conjunctivitis Code:H10.9 Name:URI (upper respiratory infection) Code:J06.9 Disposition: discharged CONSULT CRITICAL CARE TIME Is this a critically ill patient: no Electronic Signatures: Marie Mario (EDUCATIONAL ADMINISTRATOR-LATHE SCALPER OPERATOR) (Signed 07-Jan-2023 11:49) Authored: ED Notes, HPI, PMH, ROS, PE, Results/Vital Signs, MDM/ED Course, Clinical Impression, Attestation, Chart Review, Scores Last Updated: 07-Jan-2023 11:49 by Marie Mario (EDUCATIONAL ADMINISTRATOR-LATHE SCALPER OPERATOR) [facility] Provider Note - ED v3on 04-2 Provider Note - ED v3 Provider Note: [...] did not treat her symptoms with any fwrp-ujb-[id number] medications because she was afraid of breast-feeding. [...] never smoker Alcohol Use: denies Drug Use: denies,ALLERGIES/IN TOLERANCES: No Known Allergies HEALTH HISTORY: No documented [...] SIGNS: T PRBP SpO2O2(LPM) %FiO2 Method 31-Dec-2022 11:12:[id number] /77 98 MDM MDM/ED COURSE: Drake is a 27-year-old female [...] she can take Tylenol while breast-feeding. DISPOSITION Diagnosis/Annotatio n: ED Dx Name:Angelica denny Code:J03.90 Disposition: discharged CONSULT CRITICAL CARE TIME Is this a critically ill patient: no Electronic Signatures: Marie Mario (EDUCATIONAL ADMINISTRATOR-LATHE SCALPER OPERATOR) (Signed 31-Dec-2022 12:09) Authored: ED Notes, HPI, PMH, ROS, PE, Results/Vital Signs, MDM/ED Course, Clinical Impression, Attestation, Chart Review, Scores Last Updated: 31-Dec-2022 12:09 by Marie Mario (EDUCATIONAL ADMINISTRATOR-LATHE SCALPER OPERATOR) [facility] CBC, EDIF, PLATELETon 2021 ABSOLUTE BASOPHIL COUNT 0.1 10*3/uL 0.0 - 0.2 10*3/uL [facility] Comment on above: Testing performed at [facility], [place], [place] [address] Basophils/100 WBC (Bld) 0.4 % 0.0 - 2.0 % [facility] Differential cell count method Nom (Bld) AUTO DIFF % [facility] Eosinophils (Bld) [#/Vol] 0.1 10*3/uL 0.0 - 0.7 10*3/uL [facility] [employer] [facility] Eosinophils/100 WBC (Bld) 0.8 % 0.0 - 11.0 % [facility] Erythrocyte distribution width (RBC) [Ratio] 14.1 % 11.5 - 14.5 % [facility] Hematocrit (Bld) [Volume fraction] 35.1 % Low 36.0 - 48.0 % [facility] Hemoglobin (Bld) [Mass/Vol] 11.9 g/dL Low [facility] Interpretation and review of laboratory results Abnormal [facility] Lymphocytes (Bld) [#/Vol] 2.2 10*3/uL 1.2 - 3.4 10*3/uL [facility] [employer] [facility] Lymphocytes/100 WBC (Bld) 15.4 % Low 20.0 - 55.0 % [facility] MCH (RBC) [Entitic mass] 27.8 pg 26.0 - 35.0 PG [facility] MCHC (RBC) [Mass/Vol] 34.0 g/dL [employer] [facility] MCV (RBC) [Entitic vol] 81.8 fL [facility] [employer] [facility] Monocytes (Bld) [#/Vol] 1.3 10*3/uL High 0.0 - 0.7 10*3/uL [facility] Monocytes/100 WBC (Bld) 8.8 % 0.0 - 10.0 % [facility] Neutrophils (Bld) [#/Vol] 10.7 10*3/uL High 1.4 - 6.5 10*3/uL [facility] Neutrophils/100 WBC (Bld) 74.6 % 37.0 - 75.0 % [facility] Platelet mean volume (Bld) [Entitic vol] 8.7 fL [facility] Platelets (Bld) [#/Vol] 194 10*3/uL 130. 0 - 400.0 10*3/uL [facility] RBC (Bld) [#/Vol] 4.29 10*6/uL 4.0 - 5.4 10*6/uL [facility] WBC (Bld) [#/Vol] 14.3 10*3/uL High 3.6 - 11.0 10*3/uL [facility] [facility] CBC, EDIF, PLATELETon 2021 ABSOLUTE BASOPHIL COUNT 0.1 10*3/uL 0.0 - 0.2 10*3/uL [facility] Comment on above: Testing performed at [facility], [place], [place] [address] Basophils/100 WBC (Bld) 0.6 % 0.0 - 2.0 % [facility] Differential cell count method Nom (Bld) AUTO DIFF % [facility] Eosinophils (Bld) [#/Vol] 0.2 10*3/uL 0.0 - 0.7 10*3/uL [facility] Eosinophils/100 WBC (Bld) 2.0 % 0.0 - 11.0 % [facility] Erythrocyte distribution width (RBC) [Ratio] 14.4 % 11.5 - 14.5 % [facility] Hematocrit (Bld) [Volume fraction] 38.7 % 36.0 - 48.0 % [facility] Hemoglobin (Bld) [Mass/Vol] 12.8 g/dL [facility] Interpretation and review of laboratory results Abnormal [facility] Lymphocytes (Bld) [#/Vol] 2.2 10*3/uL 1.2 - 3.4 10*3/uL [facility] Lymphocytes/100 WBC (Bld) 23.1 % 20.0 - 55.0 % [facility] MCH (RBC) [Entitic mass] 27.5 pg 26.0 - 35.0 PG [facility] MCHC (RBC) [Mass/Vol] 33.2 g/dL [facility] MCV (RBC) [Entitic vol] 82.7 fL [facility] Monocytes (Bld) [#/Vol] 0.9 10*3/uL High 0.0 - 0.7 10*3/uL [facility] Monocytes/100 WBC (Bld) 9.6 % 0.0 - 10.0 % [facility] Neutrophils (Bld) [#/Vol] 6.3 10*3/uL 1.4 - 6.5 10*3/uL [facility] Neutrophils/100 WBC (Bld) 64.7 % 37.0 - 75.0 % [facility] Platelet mean volume (Bld) [Entitic vol] 8.3 fL [facility] Platelets (Bld) [#/Vol] 221 10*3/uL 130. 0 - 400.0 10*3/uL [facility] RBC (Bld) [#/Vol] 4.68 10*6/uL 4.0 - 5.4 10*6/uL [facility] WBC (Bld) [#/Vol] 9.7 10*3/uL 3.6 - 11.0 10*3/uL [facility] GLUCOSE (POC DEVICE)on 08-11 GLUCOSE, POINT OF CARE [address] [facility] Operator [id number] [facility] NOVEL CORONAVIRUS LAB 1 - NA SOPHARYNGEALon 08-11-2022 NARRATIVE -1 This test was performed using isothermal NELLY and has been approved as Emergency Use Authorization (EUA) for the qualitative detection [id number] nucleic acid. [facility] Comment on above: Testing performed at [place], [place] [address] SARS-CoV-2 (COVID-19) RNA NELLY+probe Ql (Unsp spec) Not detected NOT DETECTED [facility] Comment on above: Negative results do not [...] patient is critically ill or clinically deteriorating. [facility] RAPID TOX SCREEN WITH RELEX TO DRUGMCon 08-11-2022 Amphetamine (U) [Mass/Vol] Negative NEGATIVE NG/ML [facility] Comment on above: <500 ng/ml CUTOFF Barbiturates Screen Ql (U) Negative NEGATIVE NG/ML [facility] Comment on above: <200 ng/ml CUTOFF Benzodiazepines Ql (U) Negative NEGATIVE NG/M L [facility] Comment on above: <150 ng/ml CUTOFF Benzoylecgonine Ql (U) Negative NEGATIVE NG/M L [facility] Comment on above: <150 ng/ml CUTOFF Buprenorphine Ql (U) Negative NEGATIVE NG/ML [facility] Comment on above: <10 ng/ml CUTOFF Testing performed at [place], [place] [address] Cannabinoids Screen Ql (U) Negative NEGATIVE NG/ML [facility] Comment on above: <50 ng/ml CUTOFF Methadone Screen Ql (U) Negative NEGATIVE NG/ ML [facility] Comment on above: <200 ng/ml CUTOFF Methamphetamine (U) [Mass/Vol] Negative NEGATIVE NG/ML [facility] Comment on above: <500 ng/ml CUTOFF Opiates Screen Ql (U) Negative NEGATIVE NG/ML [facility] Comment on above: <100 ng/ml CUTOFF oxyCODONE Ql (U) Negative NEGATIVE NG/ML [facility] Comment on above: <100 ng/ml CUTOFF Phencyclidine Screen method >25 ng/mL Ql (U) Negative NEGATIVE NG/ML [facility] Comment on above: <25 ng/ml CUTOFF Propoxyphene+Norpropoxyp hene Screen Ql (U) Negative NEGATIVE NG/ML [facility] Comment on above: <300 ng/ml CUTOFF Tricyclic antidepressants Screen Ql (U) Negative NEGATIVE NG/ML [facility] Comment on above: <300 ng/ml CUTOFF [facility] Heart R-R duration USo n 08-05-2022 [facility] Heart R-R duration [facility] n 07-30-2022 [facility] Heart R-R duration US n 07-23-2022 [facility] Heart R-R duration [facility] n 07-17-2022 [facility] HEMOGLOBIN A1Con 07-17-2022 Glucose [Mass/Vol] 105 mg/dL [facility] Comment on above: Testing performed at [place], [place] [address] HbA1c (Bld) [Mass fraction] 5.3 % 0 - 6 % [facility] Comment on above: NORMAL <5.7% PREDIABETES 5.7-6.4% DIABETES 6.5% OR HIGHER [facility] CBC, EDIF, PLATELETon 2021 ABSOLUTE BASOPHIL COUNT 0.0 10*3/uL 0.0 - 0.2 10*3/uL [facility] Comment on above: Testing performed at [place], [place] [address] Basophils/100 WBC (Bld) 0.3 % 0.0 - 2.0 % [facility] Differential cell count method Nom (Bld) AUTO DIFF % [facility] Eosinophils (Bld) [#/Vol] 0.1 10*3/uL 0.0 - 0.7 10*3/uL [facility] Eosinophils/100 WBC (Bld) 0.5 % 0.0 - 11.0 % [facility] Erythrocyte distribution width (RBC) [Ratio] 13.7 % 11.5 - 14.5 % [facility] Hematocrit (Bld) [Volume fraction] 37.1 % 36.0 - 48.0 % [facility] Hemoglobin (Bld) [Mass/Vol] 12.6 g/dL [facility] Interpretation and review of laboratory results Abnormal [facility] Lymphocytes (Bld) [#/Vol] 1.4 10*3/uL 1.2 - 3.4 10*3/uL [facility] Lymphocytes/100 WBC (Bld) 12.8 % Low 20.0 - 55.0 % [facility] MCH (RBC) [Entitic mass] 28.5 pg 26.0 - 35.0 PG [facility] MCHC (RBC) [Mass/Vol] 33.9 g/dL [facility] MCV (RBC) [Entitic vol] 83.9 fL [facility] Monocytes (Bld) [#/Vol] 0.8 10*3/uL High 0.0 - 0.7 10*3/uL [facility] Monocytes/100 WBC (Bld) 7.3 % 0.0 - 10.0 % [facility] Neutrophils (Bld) [#/Vol] 8.7 10*3/uL High 1.4 - 6.5 10*3/uL [facility] Neutrophils/100 WBC (Bld) 79.1 % High 37.0 - 75.0 % [facility] Platelet mean volume (Bld) [Entitic vol] 9.2 fL [facility] Platelets (Bld) [#/Vol] 216 10*3/uL 130. 0 - 400.0 10*3/uL [facility] RBC (Bld) [#/Vol] 4.42 10*6/uL 4.0 - 5.4 10*6/uL [facility] WBC (Bld) [#/Vol] 11.0 10*3/uL 3.6 - 11.0 10*3/uL [facility] COMPREHENSIVE METABOLIC PANE Keo 07-13-2022 Albumin [Mass/Vol] 3.5 G/dl 3.5 - 5.0 G/dl [facility] Albumin/Globulin [Mass ratio] 1.2 {ratio} Low [facility] ALP [Catalytic activity/Vol] 131 U/L [facility] ALT [Catalytic activity/Vol] 18 U/L [facility] AST [Catalytic activity/Vol] 23 U/L [facility] Bilirubin [Mass/Vol] 0.1 mg/dL Low [facility] Calcium [Mass/Vol] 8.9 mg/dL [facility] Chloride [Moles/Vol] 106 mmol/L [facility] Comment on above: Please note: Triglyc eride levels of 600mg/dL or higher may positively bias chloride results by approximately 2.1 mmol CO2 [Moles/Vol] 22 mmol/L [facility] Creatinine [Mass/Vol] 0.70 mg/dL [facility] GFR COMMENT Average GFR for 20-29 years old = 116. [facility] Comment on above: Chronic Kidney disea se, GFR = <60. Kidney failure, GFR = <15. The GFR estimate is not adjusted for extreme body surface area or acute process, nor has it been validated for women or ethnic groups other than and . Testing performed at [place], [place] [address] GFR/1.73 sq M.predicted among blacks MDRD (S/P/Bld) [Vol rate/Area] 129 mL/min/{1.73_m2} ml/min/1.73sq. m [facility] GFR/1.73 sq M.predicted among non-blacks MDRD (S/P/Bld) [Vol rate/Area] 107 mL/min/{1.73_m2} ml/min/1.73sq. m [facility] Glucose post fast [Mass/Vol] 110 mg/dL High [facility] Comment on above: NORMAL <100 mg/dL PREDIABETES 101-126 mg/dL DIABETES 126 mg/dL or higher Potassium [Moles/Vol] 3.9 mmol/L [facility] Protein [Mass/Vol] 6.4 g/dL [facility] Sodium [Moles/Vol] 134 mmol/L Low [facility] Urea nitrogen [Mass/Vol] 11 mg/dL [facility] LACTATE DEHYDROGENASEon 06-15 LDH [Catalytic activity/Vol] 91 U/L Low [facility] Comment on above: Testing performed at [place], [place] [address] No Panel Informationon 07-13 Interpretation and review of laboratory results Abnormal [facility] Heart R-R duration USo n 07-09-2022 [facility] Heart R-R duration USo n 06-29-2022 [facility] Heart R-R duration USo n 06-25-2022 [facility] Heart R-R duration USo n 06-18-2022 [facility] OB ultrasound panelon 2021 : Single live iup in Vertex position. EFW is 1677g, which is the 48.5 percentile. heart rate 130 bpm. Umbilical artery S/D ratio is 2.85. [facility] Radiology Study observation (narrative) [facility] ECGOrdered By: Alvarado hawk on 06-16-2022 [facility] Work Phone: Heart R-R duration USo n 05-22-2022 Josse Walter MD - 05/22/2022 2:00 PM EDT Non-stress Test Gestational age: 27w1d Indication: Decreased movement Baseline: 140 bpm 10x10s: N/A Variability: moderate Decelerations: absent Contractions: absent Duration >20 minutes Comments: Reassuring for gestational age 0905/22/22 Josse Walter MD [facility] OB ultrasound panelon 2021 : Single live IUP in Breech position. Normal Anatomy seen. Outflow tracts not seen - follow up ultrasound in 1 month. ASHLEE by US - 08/20/2022 which is consistent with gestational age. [facility] Radiology Study observation (narrative) [facility] OB ultrasound panelon 2021 : 1. Single noted within the uterus 2. heart rate of 159 bpm. [facility] REFERRING PHYSICIAN: Dr. Lee TECHNOLOGIST: Radha Simon PROCEDURE DATE : 02/02/2022 INDICATIONS: Early gestational, couldn't heart heart tones PROCEDURE DETAILS A single was noted within the uterus. heart rate of 159 bpm. FINAL [facility] Radiology Study observation (narrative) [facility] OB ultrasound panelon 2021 : 1. Single of 10 weeks and 4 days. 2. heart rate of 171 bpm. 3. US ASHLEE 08/20/2022, which is inconsistent with ASHLEE by LMP and should be changed. [facility] REFERRING PHYSICIAN: Dr. Lee TECHNOLOGIST: Radha Simon PROCEDURE DATE : 01/26/2022 INDICATIONS: Early gestational, dating LMP 11/08/2021, ASHLEE 08/15/2022 PROCEDURE DETAILS A single was noted within the uterus. heart rate of 171 bpm. The CRL measures 3.65 cm , 10 weeks 4 days. FINAL [facility] Radiology Study observation (narrative) [facility] ABO/RH(D) TYPINGon 2 ABO and Rh group Nom (Bld ) Positive [facility] ABO and Rh group Nom (Bld ) Testing performed at [place], [place] [address] [facility] ANTIBODY SCREENon 01-09-2022 Blood group antibody screen Ql Negative [facility] EXPIRATION DATE 01/12/2022,2359 [facility] EXPIRATION DATE Testing performed at [place], [place] [address] [facility] CBC, EDIF, PLATELETon 2021 ABSOLUTE BASOPHIL COUNT 0.0 10*3/uL 0.0 - 0.2 10*3/uL [facility] Comment on above: Testing performed at [place] [address] Basophils/100 WBC (Bld) 0.5 % 0.0 - 2.0 % [facility] Differential cell count method Nom (Bld) AUTO DIFF % [facility] Eosinophils (Bld) [#/Vol] 0.10 10*3/uL 0.0 - 0.7 10*3/uL [facility] Eosinophils/100 WBC (Bld) 1.1 % 0.0 - 11.0 % [facility] Erythrocyte distribution width (RBC) [Ratio] 12.8 % 11.5 - 14.5 % [facility] Hematocrit (Bld) [Volume fraction] 37.9 % 36.0 - 48.0 % [facility] Hemoglobin (Bld) [Mass/Vol] 13.3 g/dL [facility] Interpretation and review of laboratory results Abnormal [facility] Lymphocytes (Bld) [#/Vol] 1.40 10*3/uL 1.2 - 3.4 10*3/uL [facility] Lymphocytes/100 WBC (Bld) 19.9 % Low 20.0 - 55.0 % [facility] MCH (RBC) [Entitic mass] 30.5 pg 26.0 - 35.0 PG [facility] MCHC (RBC) [Mass/Vol] 35.0 g/dL [facility] MCV (RBC) [Entitic vol] 87.1 fL [facility] Monocytes (Bld) [#/Vol] 0.5 10*3/uL 0.0 - 0.7 10*3/uL [facility] Monocytes/100 WBC (Bld) 7.4 % 0.0 - 10.0 % [facility] Neutrophils (Bld) [#/Vol] 5.1 10*3/uL 1.4 - 6.5 10*3/uL [facility] Neutrophils/100 WBC (Bld) 71.1 % 37.0 - 75.0 % [facility] Platelet mean volume (Bld) [Entitic vol] 7.8 fL [facility] Platelets (Bld) [#/Vol] 296 10*3/uL 130. 0 - 400.0 10*3/uL [facility] RBC (Bld) [#/Vol] 4.35 10*6/uL 4.0 - 5.4 10*6/uL [facility] WBC (Bld) [#/Vol] 7.2 10*3/uL 3.6 - 11.0 10*3/uL [facility] HIV 1+2 Ab+HIV1 p24 Ag IA Ql on 01-09-2022 HIV 1+2 Ab IA Ql Non-Reactive NONREACTIVE [facility] Comment on above: Testing performed at [address] System RAPID TOX SCREEN WITH RELEX TO DRUGMCon 01-09-2022 Amphetamine (U) [Mass/Vol] Negative NEGATIVE NG/ML [facility] Comment on above: <500 ng/ml CUTOFF Barbiturates Screen Ql (U) Negative NEGATIVE NG/ML [facility] Comment on above: <200 ng/ml CUTOFF Benzodiazepines Ql (U) Negative NEGATIVE NG/M L [facility] Comment on above: <150 ng/ml CUTOFF Benzoylecgonine Ql (U) Negative NEGATIVE NG/M L [facility] Comment on above: <150 ng/ml CUTOFF Buprenorphine Ql (U) Negative NEGATIVE NG/ML [facility] Comment on above: <10 ng/ml CUTOFF Testing performed at [place] [address] Cannabinoids Screen Ql (U) Negative NEGATIVE NG/ML [facility] Comment on above: <50 ng/ml CUTOFF Methadone Screen Ql (U) Negative NEGATIVE NG/ ML [facility] Comment on above: <200 ng/ml CUTOFF Methamphetamine (U) [Mass/Vol] Negative NEGATIVE NG/ML [facility] Comment on above: <500 ng/ml CUTOFF Opiates Screen Ql (U) Negative NEGATIVE NG/ML [facility] Comment on above: <100 ng/ml CUTOFF oxyCODONE Ql (U) Negative NEGATIVE NG/ML [facility] Comment on above: <100 ng/ml CUTOFF Phencyclidine Screen method >25 ng/mL Ql (U) Negative NEGATIVE NG/ML [facility] Comment on above: <25 ng/ml CUTOFF Propoxyphene+Norpropoxyp hene Screen Ql (U) Negative NEGATIVE NG/ML [facility] Comment on above: <300 ng/ml CUTOFF Tricyclic antidepressants Screen Ql (U) Negative NEGATIVE NG/ML [facility] Comment on above: <300 ng/ml CUTOFF [facility] TSH with Reflex Free T4on Interpretation and review of laboratory results Normal [facility] TSH Qn 1.52 m[IU]/L [facility] Comprehensive Metabolic Pane keo 09-25-2019 Albumin [Mass/Vol] 4.4 g/dL 3.2 - 5.2 g/dL [facility] ALP [Catalytic activity/Vol] 94 U/L 40 - 140 U/L [facility] ALT [Catalytic activity/Vol] 51 U/L 14 - 65 U/L [facility] Anion gap [Moles/Vol] 10 mmol/L 10 - 20 mmol/L [facility] AST [Catalytic activity/Vol] 18 U/L 0 - 45 U/L [facility] Bilirubin [Mass/Vol] 0.4 mg/dL 0 - 1.3 mg/dL [facility] Calcium [Mass/Vol] 9.5 mg/dL 8.4 - 10. 2 mg/dL [facility] Chloride [Moles/Vol] 104 mmol/L 98 - 10 8 mmol/L [facility] Creatinine [Mass/Vol] 0.90 mg/dL 0.4 - 1.1 mg/dL [facility] GFR/1.73 sq M predicted among non-blacks MDRD (S/P/Bld) [Vol rate/Area] The eGFR should be used for monitoring renal function only and not for medication dosing. [facility] GFR/1.73 sq M.predicted CKD-EPI (S/P/Bld) [Vol rate/Area] 90 >=60 mL/min/1.73 m2 [facility] Glucose [Mass/Vol] 82 mg/dL 65 - 99 mg/dL [facility] [Moles/Vol] 28 mmol/L 21 - 32 mmol/L [facility] Potassium [Moles/Vol] 4.0 mmol/L 3.5 - 5.1 mmol/L [facility] Protein [Mass/Vol] 8.0 g/dL 6 - 8 g/dL [facility] Sodium [Moles/Vol] 138 mmol/L 135 - 145 mmol/L [facility] Urea nitrogen [Mass/Vol] 10 mg/dL 8 - 25 mg/d L [facility] Urea nitrogen/Creatinine [Mass ratio] 11.1 mg/mg [facility] Follicle Stimulating Hormone on 09-25-2019 Follitropin Qn 2.6 m[IU]/mL mIU/mL [facility] FSH Reference Range: (Units mIU/mL) Pubertal adult females, menstrual cycle phases: Menarche to pre-menopause Follicular 2.3 - 12.6 Mid-cycle peak 5.2 - 17.5 Luteal 1.7 - 12.9 Post-menopausal On Menopausal Hormone Therapy (MHT) 5.9 - 72.8 Not on MHT 12.7 - 132.2 [facility] Luteinizing Hormoneon 2019 Lutropin Qn 7.4 m[IU]/mL mIU/mL [facility] LH Reference Range (Units mIU/mL) Female: Pubertal adult females, menstrual cycle phase: Follicular 1.9 - 12.8 Mid-cycle peak 22.8 - 76.1 Luteal 0.6 - 13.5 Post-menopausal: On Menopausal Hormone Therapy (MHT) 1.1 - 52.4 Not on MHT 8.6 - 61.8 [facility] Otheron 09-25-2019 Interpretation and review of laboratory results Normal [facility] TSH with Reflex Free T4on TSH Qn 3.77 m[IU]/L [facility] Vital Signs Date Time Vital Sign Value Performing Clinician Facility 06-25-2025 15:16-0400 Body height 162.56 cm Keyla ALDRIDGE Work Phone: [facility] 06-25-2025 15:16-0400 Body mass index (BMI) [Ratio] 31.4 kg/m2 Keyla ALDRIDGE Work Phone: [facility] 06-25-2025 15:16-0400 Body weight 83.17 kg Keyla ALDRIDGE Work Phone: [facility] 06-25-2025 15:16-0400 Diastolic blood pressure 74 mm[Hg] Keyla Gideon N[employer]ITION[employer] HE[employer] COACH-C Work Phone: [facility] 06-25-2025 15:16-0400 Systolic blood pressure 108 mm[Hg] Keyla Gideon NUTRITIONAL HEALTH COACH-C Work Phone: [facility] 06-13-2025 15:26-0400 Body height 162.56 cm Keyla Gideon NUTRITIONAL HEALTH COACH-C Work Phone: [facility] 06-13-2025 15:26-0400 Body mass index (BMI) [Ratio] 31.7 kg/m2 Keyla Gideon NUTRITIONAL HEALTH COACH-C Work Phone: [phone] [place] [address] 06-13-2025 15:26-0400 Body weight 83.91 kg Keyla Gideon NUTRITIONAL HEALTH COACH-C Work Phone: [phone] [place] [address] 06-13-2025 15:26-0400 Diastolic blood pressure 67 mm[Hg] Keyla Gideon NUTRITIONAL HEALTH COACH-C Work Phone: [phone] [address] 06-13-2025 15:26-0400 Systolic blood pressure 101 mm[Hg] Keyla Gideon NUTRITIONAL HEALTH COACH-C Work Phone: [phone] [place] [address] 05-22-2025 15:35-0400 Body height 162.56 cm Keyla Gideon NUTRITIONAL HEALTH COACH-C Work Phone: [phone] [place] [address] 05-22-2025 15:35-0400 Body mass index (BMI) [Ratio] 31.6 kg/m2 Keyla Gideon NUTRITIONAL HEALTH COACH-C Work Phone: [facility] 05-22-2025 15:35-0400 Body weight 83.6 kg Keyla Gideon NUTRITIONAL HEALTH COACH-C Work Phone: [phone] [place] [address] 05-22-2025 15:35-0400 Diastolic blood pressure 75 mm[Hg] Keyla Gideon NUTRITIONAL HEALTH COACH-C Work Phone: [facility] 05-22-2025 15:35-0400 Systolic blood pressure 115 mm[Hg] Keyla Gideon NUTRITIONAL HEALTH COACH-C Work Phone: [facility] 04-27-2025 11:42-0400 Body height 162.56 cm Keyla Meneses NUTRITIONAL HEALTH COACH-C Work Phone: [facility] 04-27-2025 11:42-0400 Body mass index (BMI) [Ratio] 30.4 kg/m2 Keyla Meneses NUTRITIONAL HEALTH COACH-C Work Phone: [facility] 04-27-2025 11:42-0400 Body weight 80.48 kg Keyla Meneses NUTRITIONAL HEALTH COACH-C Work Phone: [facility] 04-27-2025 11:42-0400 Diastolic blood pressure 69 mm[Hg] Keyla Meneses NUTRITIONAL HEALTH COACH-C Work Phone: [facility] 04-27-2025 11:42-0400 Systolic blood pressure 105 mm[Hg] Keyla Meneses NUTRITIONAL HEALTH COACH-C Work Phone: [facility] 03-30-2025 13:58-0400 Body height 162.56 cm Keyla Meneses NUTRITIONAL HEALTH COACH-C Work Phone: [facility] 03-30-2025 13:58-0400 Body mass index (BMI) [Ratio] 29 kg/m2 Keyla Meneses NUTRITIONAL HEALTH COACH-C Work Phone: [facility] 03-30-2025 13:58-0400 Body weight 76.77 kg Keyla Meneses NUTRITIONAL HEALTH COACH-C Work Phone: [facility] 03-30-2025 13:58-0400 Diastolic blood pressure 72 mm[Hg] Keyla Meneses NUTRITIONAL HEALTH COACH-C Work Phone: [facility] 03-30-2025 13:58-0400 Systolic blood pressure 116 mm[Hg] Keyla Meneses NUTRITIONAL HEALTH COACH-C Work Phone: [facility] 03-26-2025 11:59-0400 Body height 162.6 cm Anna Fuentes MD Work Phone: [facility] 03-26-2025 11:59-0400 Body mass index (BMI) [Ratio] 26.98 kg/m2 Anna Fuentes MD Work Phone: [facility] 03-26-2025 11:59-0400 Body weight 71.31 kg Anna Fuentes MD Work Phone: [facility] 03-26-2025 11:59-0400 Diastolic blood pressure 71 mm[Hg] Anna Fuentes MD Work Phone: [facility] 03-26-2025 11:59-0400 Heart rate 86 /min Anna Fuentes MD Work Phone: [facility] 03-26-2025 11:59-0400 Respiratory rate 16 /min Anna Fuentes MD Work Phone: [facility] 03-26-2025 11:59-0400 SaO2% (BldA) [Mass fraction] 100 % Anna Fuentes MD Work Phone: [facility] 03-26-2025 11:59-0400 Systolic blood pressure 111 mm[Hg] Anna Fuentes MD Work Phone: [facility] 03-01-2025 13:22-0400 Body height 162.56 cm Keyla Meneses NP-C Work Phone: [facility] 03-01-2025 13:22-0400 Body mass index (BMI) [Ratio] 28.5 kg/m2 Keyla Meneses NP-C Work Phone: [facility] 03-01-2025 13:22-0400 Body weight 75.29 kg Keyla Meneses NUTRITIONAL HEALTH COACH-C Work Phone: [facility] 03-01-2025 13:22-0400 Diastolic blood pressure 70 mm[Hg] Keyla Meneses NP-C Work Phone: [facility] 03-01-2025 13:22-0400 Systolic blood pressure 111 mm[Hg] Keyla Meneses NUTRITIONAL HEALTH COACH-C Work Phone: [facility] 01-18-2025 08:47-0400 Body height 162.56 cm Keyla Gideon NUTRITIONAL HEALTH COACH-C Work Phone: [facility] 01-18-2025 08:47-0400 Body mass index (BMI) [Ratio] 27.8 kg/m2 Keyla Meneses NUTRITIONAL HEALTH COACH-C Work Phone: [facility] 01-18-2025 08:47-0400 Body weight 73.53 kg Keyla Meneses NUTRITIONAL HEALTH COACH-C Work Phone: [facility] 01-18-2025 08:47-0400 Diastolic blood pressure 79 mm[Hg] Keyla Meneses NUTRITIONAL HEALTH COACH-C Work Phone: [facility] 01-18-2025 08:47-0400 Systolic blood pressure 122 mm[Hg] Keyla Meneses NUTRITIONAL HEALTH COACH-C Work Phone: [facility] 01-02-2025 08:40-0400 Body mass index (BMI) [Ratio] 27.8 kg/m2 Keyla Meneses NUTRITIONAL HEALTH COACH-C Work Phone: [facility] 01-02-2025 08:40-0400 Body weight 73.48 kg Keyla Meneses NUTRITIONAL HEALTH COACH-C Work Phone: [facility] 12-25-2024 13:58-0400 Body height 162.6 cm Anna Fuentes MD Work Phone: [facility] 12-25-2024 13:58-0400 Body mass index (BMI) [Ratio] 27 kg/m2 Anna Fuentes MD Work Phone: [facility] 12-25-2024 13:58-0400 Body weight 71.35 kg Anna Fuentes MD Work Phone: [facility] 12-25-2024 13:58-0400 Diastolic blood pressure 74 mm[Hg] Anna Fuentes MD Work Phone: [facility] 12-25-2024 13:58-0400 Heart rate 78 /min Anna Fuentes MD Work Phone: [facility] 12-25-2024 13:58-0400 Respiratory rate 16 /min Anna Fuentes MD Work Phone: [facility] 12-25-2024 13:58-0400 SaO2% (BldA) [Mass fraction] 100 % Anna Fuentes MD Work Phone: [facility] 12-25-2024 13:58-0400 Systolic blood pressure 115 mm[Hg] Anna Fuentes MD Work Phone: [facility] 11-09-2024 13:09-0500 Body height 162.6 cm Antonio Jessica PA-C Work Phone: [facility] 11-09-2024 13:09-0500 Body mass index (BMI) [Ratio] 27.46 kg/m2 Antonio Jessica PA-C Work Phone: [facility] 11-09-2024 13:09-0500 Body temperature 97.81 [degF] Antonio Jessica PA-C Work Phone: [facility] 11-09-2024 13:09-0500 Body weight 72.58 kg Antonio Jessica PA-C Work Phone: [facility] 11-09-2024 13:09-0500 Diastolic blood pressure 84 mm[Hg] Antonio Jessica PA-C Work Phone: [facility] 11-09-2024 13:09-0500 Heart rate 98 /min Antonio Jessica PA-C Work Phone: [facility] 11-09-2024 13:09-0500 Respiratory rate 16 /min Antonio Jessica PA-C Work Phone: [facility] 11-09-2024 13:09-0500 SaO2% (BldA) [Mass fraction] 97 % Antonio Jessica PA-C Work Phone: [facility] 11-09-2024 13:09-0500 Systolic blood pressure 129 mm[Hg] Antonio Jessica PA-C Work Phone: [facility] 05-18-2024 08:03-0400 Body mass index (BMI) [Ratio] 28.89 kg/m2 Keyla Meneses LATHE SCALPER OPERATOR Work Phone: [facility] 05-18-2024 08:03-0400 Body temperature 98.49 [degF] Keyla Meneses LATHE SCALPER OPERATOR Work Phone: [facility] 05-18-2024 08:03-0400 Body weight 78.74 kg Keyla Meneses LATHE SCALPER OPERATOR Work Phone: [facility] 05-18-2024 08:03-0400 Diastolic blood pressure 81 mm[Hg] Keyla Gideon LATHE SCALPER OPERATOR Work Phone: [facility] 05-18-2024 08:03-0400 Heart rate 81 /min Keyla Meneses LATHE SCALPER OPERATOR Work Phone: [facility] 05-18-2024 08:03-0400 SaO2% (BldA) [Mass fraction] 98 % Keyla Meneses LATHE SCALPER OPERATOR Work Phone: [facility] 05-18-2024 08:03-0400 Systolic blood pressure 116 mm[Hg] Keyla Gideon LATHE SCALPER OPERATOR Work Phone: [facility] 04-27-2024 07:47-0400 Body mass index (BMI) [Ratio] 28.44 kg/m2 Keyla Meneses LATHE SCALPER OPERATOR Work Phone: [facility] 04-27-2024 07:47-0400 Body temperature 98.4 [degF] Keyla Meneses LATHE SCALPER OPERATOR Work Phone: [facility] 04-27-2024 07:47-0400 Body weight 77.52 kg Keyla Meneses LATHE SCALPER OPERATOR Work Phone: [facility] 04-27-2024 07:47-0400 Diastolic blood pressure 79 mm[Hg] Keyla Gideon LATHE SCALPER OPERATOR Work Phone: [facility] 04-27-2024 07:47-0400 Heart rate 92 /min Keyla Meneses LATHE SCALPER OPERATOR Work Phone: [facility] 04-27-2024 07:47-0400 SaO2% (BldA) [Mass fraction] 98 % Keyla Meneses LATHE SCALPER OPERATOR Work Phone: [facility] 04-27-2024 07:47-0400 Systolic blood pressure 119 mm[Hg] Keyla Gideon LATHE SCALPER OPERATOR Work Phone: [facility] 04-06-2024 08:16-0400 Body mass index (BMI) [Ratio] 28.42 kg/m2 Keyla Meneses LATHE SCALPER OPERATOR Work Phone: [facility] 04-06-2024 08:16-0400 Body temperature 98.91 [degF] Keyla Meneses LATHE SCALPER OPERATOR Work Phone: [facility] 04-06-2024 08:16-0400 Body weight 77.47 kg Keyla Meneses LATHE SCALPER OPERATOR Work Phone: [facility] 04-06-2024 08:16-0400 Diastolic blood pressure 84 mm[Hg] Keyla Gideon LATHE SCALPER OPERATOR Work Phone: [facility] 04-06-2024 08:16-0400 Heart rate 97 /min Keyla Meneses LATHE SCALPER OPERATOR Work Phone: [facility] 04-06-2024 08:16-0400 SaO2% (BldA) [Mass fraction] 98 % Keyla Meneses LATHE SCALPER OPERATOR Work Phone: [facility] 04-06-2024 08:16-0400 Systolic blood pressure 127 mm[Hg] Keyla Meneses LATHE SCALPER OPERATOR Work Phone: [facility] 03-06-2024 13:32-0400 Body height 165.1 cm Keyla Meneses LATHE SCALPER OPERATOR Work Phone: [facility] 03-06-2024 13:32-0400 Body mass index (BMI) [Ratio] 28.51 kg/m2 Keyla Meneses LATHE SCALPER OPERATOR Work Phone: [facility] 03-06-2024 13:32-0400 Body temperature 98.4 [degF] Keyla Meneses LATHE SCALPER OPERATOR Work Phone: [facility] 03-06-2024 13:32-0400 Body weight 77.7 kg Keyla Gideon LATHE SCALPER OPERATOR Work Phone: [facility] 03-06-2024 13:32-0400 Diastolic blood pressure 87 mm[Hg] Keyla Meneses LATHE SCALPER OPERATOR Work Phone: [facility] 03-06-2024 13:32-0400 Heart rate 96 /min Keyla Meneses LATHE SCALPER OPERATOR Work Phone: [facility] 03-06-2024 13:32-0400 SaO2% (BldA) [Mass fraction] 97 % Keyla Meneses LATHE SCALPER OPERATOR Work Phone: [facility] 03-06-2024 13:32-0400 Systolic blood pressure 138 mm[Hg] Keyla Meneses LATHE SCALPER OPERATOR Work Phone: [facility] 12-17-2023 09:01-0400 Body height 162.6 cm Amy Stackner PA Work Phone: [facility] 12-17-2023 09:01-0400 Body mass index (BMI) [Ratio] 29.52 kg/m2 Amy Chi PA Work Phone: [facility] 12-17-2023 09:01-0400 Body temperature 98.2 [degF] Amy Chi PA Work Phone: [facility] 12-17-2023 09:01-0400 Body weight 78.02 kg Amy Chi PA Work Phone: [facility] 12-17-2023 09:01-0400 Diastolic blood pressure 83 mm[Hg] Amy Chi PA Work Phone: [facility] 12-17-2023 09:01-0400 Heart rate 92 /min Amy Chi PA Work Phone: [facility] 12-17-2023 09:01-0400 Respiratory rate 18 /min Amy Chi PA Work Phone: [facility] 12-17-2023 09:01-0400 SaO2% (BldA) [Mass fraction] 99 % Amy Chi PA Work Phone: [facility] 12-17-2023 09:01-0400 Systolic blood pressure 151 mm[Hg] Amy Chi PA Work Phone: [facility] 12-07-2023 16:32-0400 Body height 162.6 cm Amy Chi PA Work Phone: [facility] 12-07-2023 16:32-0400 Body mass index (BMI) [Ratio] 29.52 kg/m2 Amy Chi PA Work Phone: [facility] 12-07-2023 16:32-0400 Body temperature 98.29 [degF] Amy Chi PA Work Phone: [facility] 12-07-2023 16:32-0400 Body weight 78.02 kg Amy Chi PA Work Phone: [facility] 12-07-2023 16:32-0400 Diastolic blood pressure 81 mm[Hg] Amy Chi PA Work Phone: [facility] 12-07-2023 16:32-0400 Heart rate 106 /min Amy Chi PA Work Phone: [facility] 12-07-2023 16:32-0400 Respiratory rate 18 /min Amy Chi PA Work Phone: [facility] 12-07-2023 16:32-0400 SaO2% (BldA) [Mass fraction] 100 % Amy Chi PA Work Phone: [facility] 12-07-2023 16:32-0400 Systolic blood pressure 126 mm[Hg] Amy Chi PA Work Phone: [facility] 10-26-2023 15:37-0500 Body height 162.6 cm Lemuel Lee MD Work Phone: [facility] 10-26-2023 15:37-0500 Body mass index (BMI) [Ratio] 30.55 kg/m2 Lemuel Lee MD Work Phone: [facility] [employer] [facility] 10-26-2023 15:37-0500 Body weight 80.74 kg Lemuel Lee MD Work Phone: [facility] 10-26-2023 15:37-0500 Diastolic blood pressure 68 mm[Hg] Lemuel Lee MD Work Phone: [facility] 10-26-2023 15:37-0500 Systolic blood pressure 112 mm[Hg] Lemuel Lee MD Work Phone: [facility] 09-29-2023 16:27-0500 Body height 162.6 cm Jelena Gomezley EDUCATIONAL ADMINISTRATOR-LATHE SCALPER OPERATOR Work Phone: [facility] 09-29-2023 16:27-0500 Body mass index (BMI) [Ratio] 29.7 kg/m2 Jelena Jessica EDUCATIONAL ADMINISTRATOR-LATHE SCALPER OPERATOR Work Phone: [facility] 09-29-2023 16:27-0500 Body temperature 97.39 [degF] Jelena Jessica EDUCATIONAL ADMINISTRATOR-LATHE SCALPER OPERATOR Work Phone: [facility] 09-29-2023 16:27-0500 Body weight 78.47 kg Jelena Jessica EDUCATIONAL ADMINISTRATOR-LATHE SCALPER OPERATOR Work Phone: [facility] 09-29-2023 16:27-0500 Diastolic blood pressure 80 mm[Hg] Jelena Jessica EDUCATIONAL ADMINISTRATOR-LATHE SCALPER OPERATOR Work Phone: [facility] 09-29-2023 16:27-0500 Heart rate 89 /min Jelena Jessica EDUCATIONAL ADMINISTRATOR-LATHE SCALPER OPERATOR Work Phone: [facility] 09-29-2023 16:27-0500 Respiratory rate 16 /min Jelena Jessica EDUCATIONAL ADMINISTRATOR-LATHE SCALPER OPERATOR Work Phone: [facility] 09-29-2023 16:27-0500 SaO2% (BldA) [Mass fraction] 98 % Jelenaanalilia Walter EDUCATIONAL ADMINISTRATOR-LATHE SCALPER OPERATOR Work Phone: [facility] 09-29-2023 16:27-0500 Systolic blood pressure 127 mm[Hg] Jelena Walter EDUCATIONAL ADMINISTRATOR-LATHE SCALPER OPERATOR Work Phone: [facility] 09-01-2023 08:27-0500 Body mass index (BMI) [Ratio] 29.72 kg/m2 Татьяна Brooke LATHE SCALPER OPERATOR Work Phone: [facility] 09-01-2023 08:27-0500 Body temperature 98.01 [degF] Татьяна Brooke LATHE SCALPER OPERATOR Work Phone: [facility] 09-01-2023 08:27-0500 Body weight 81.01 kg Татьяна Brooke LATHE SCALPER OPERATOR Work Phone: [facility] 09-01-2023 08:27-0500 Diastolic blood pressure 86 mm[Hg] Татьяна Brooke LATHE SCALPER OPERATOR Work Phone: [facility] 09-01-2023 08:27-0500 Heart rate 86 /min Татьяна Brooke LATHE SCALPER OPERATOR Work Phone: [facility] 09-01-2023 08:27-0500 Respiratory rate 16 /min Татьяна Brooke LATHE SCALPER OPERATOR Work Phone: [facility] 09-01-2023 08:27-0500 SaO2% (BldA) [Mass fraction] 100 % Татьяна Brooke LATHE SCALPER OPERATOR Work Phone: [facility] 09-01-2023 08:27-0500 Systolic blood pressure 100 mm[Hg] Татьяна Brooke LATHE SCALPER OPERATOR Work Phone: [facility] 07-21-2023 15:24-0500 Body height 165.1 cm Татьяна Brooke LATHE SCALPER OPERATOR Work Phone: [facility] 07-21-2023 15:24-0500 Body mass index (BMI) [Ratio] 30.87 kg/m2 Татьяна Brooke LATHE SCALPER OPERATOR Work Phone: [facility] 07-21-2023 15:24-0500 Body temperature 98.2 [degF] Татьяна Brooke LATHE SCALPER OPERATOR Work Phone: [facility] 07-21-2023 15:24-0500 Body weight 84.14 kg Татьяна Brooke LATHE SCALPER OPERATOR Work Phone: [facility] 07-21-2023 15:24-0500 Diastolic blood pressure 82 mm[Hg] Татьяна Brooke LATHE SCALPER OPERATOR Work Phone: [facility] 07-21-2023 15:24-0500 Heart rate 107 /min Татьянаgatito Brooke LATHE SCALPER OPERATOR Work Phone: [facility] 07-21-2023 15:24-0500 Respiratory rate 16 /min Татьянаgatito Brooke LATHE SCALPER OPERATOR Work Phone: [facility] 07-21-2023 15:24-0500 SaO2% (BldA) [Mass fraction] 97 % Татьяна Brooke LATHE SCALPER OPERATOR Work Phone: [facility] 07-21-2023 15:24-0500 Systolic blood pressure 112 mm[Hg] Татьянаgatito Brooke LATHE SCALPER OPERATOR Work Phone: [facility] 01-07-2023 11:04-0400 Body height 162.5 cm Anand Cooley Other Phone: [facility] 01-07-2023 11:04-0400 Body temperature 98.96 [degF] Anand Cooley Other Phone: [facility] 01-07-2023 11:04-0400 Diastolic blood pressure 87 mm[Hg] Anand Cooley Other Phone: [facility] 01-07-2023 11:04-0400 Heart rate 122 /min Anand Cooley Other Phone: [facility] 01-07-2023 11:04-0400 Respiratory rate 16 /min Anand Cooley Other Phone: [facility] 01-07-2023 11:04-0400 SaO2% (BldA) [Mass fraction] 98 % Anand Cooley Other Phone: [facility] 01-07-2023 11:04-0400 Systolic blood pressure 144 mm[Hg] Anand Cooley Other Phone: [facility] 01-05-2023 10:10-0400 Body height 162.6 cm Amy PALMER Work Phone: [facility] 04-25-2023 10:10-0400 Body mass index (BMI) [Ratio] 29.18 kg/m2 Amy Stackner PA Work Phone: [facility] 01-05-2023 10:10-0400 Body temperature 98.6 [degF] Amy Stackner PA Work Phone: [facility] 01-05-2023 10:10-0400 Body weight 77.11 kg Amy Stackner PA Work Phone: [facility] 01-05-2023 10:10-0400 Diastolic blood pressure 74 mm[Hg] Amy Stackner PA Work Phone: [facility] 01-05-2023 10:10-0400 Heart rate 96 /min Amy Stackner PA Work Phone: [facility] 01-05-2023 10:10-0400 Respiratory rate 18 /min Amy Stackner PA Work Phone: [facility] 01-05-2023 10:10-0400 SaO2% (BldA) [Mass fraction] 99 % Amy Stackner PA Work Phone: [facility] 01-05-2023 10:10-0400 Systolic blood pressure 131 mm[Hg] Amy Stackner PA Work Phone: [facility] 10-20-2022 15:13-0500 Body height 162.6 cm Lemuel Lee MD Work Phone: [facility] 10-20-2022 15:13-0500 Body mass index (BMI) [Ratio] 30.04 kg/m2 Lemuel Lee MD Work Phone: [facility] [employer] [facility] 10-20-2022 15:13-0500 Body weight 79.38 kg Lemuel Lee MD Work Phone: [facility] 10-20-2022 15:13-0500 Diastolic blood pressure 74 mm[Hg] Lemuel Lee MD Work Phone: [facility] 02-07-2023 15:13-0500 Systolic blood pressure 110 mm[Hg] Lemuel Lee MD Work Phone: [employer] [facility] 08-13-2022 16:20-0500 Body temperature 97.59 [degF] Lemuel Lee MD Work Phone: [employer] [facility] 08-13-2022 16:20-0500 Diastolic blood pressure 74 mm[Hg] Lemuel Lee MD Work Phone: [employer] [facility] 08-13-2022 16:20-0500 Heart rate 84 /min Lemuel Lee MD Work Phone: [employer] [facility] 08-13-2022 16:20-0500 Respiratory rate 18 /min Lemuel Lee MD Work Phone: [employer] 08-13-2022 16:20-0500 SaO2% (BldA) [Mass fraction] 98 % Lemuel Lee MD Work Phone: [employer] [facility] 08-13-2022 16:20-0500 Systolic blood pressure 131 mm[Hg] Lemuel Lee MD Work Phone: [employer] [facility] 08-11-2022 04:06-0500 Body height 162.6 cm Lemuel Lee MD Work Phone: [employer] [facility] 08-11-2022 04:06-0500 Body mass index (BMI) [Ratio] 33.15 kg/m2 Lemuel Lee MD Work Phone: [employer] [facility] 08-11-2022 04:06-0500 Body weight 87.6 kg Lemuel Lee MD Work Phone: [employer] [facility] 08-05-2022 07:26-0500 Body height 162.6 cm Lemuel Lee MD Work Phone: [employer] [facility] 08-05-2022 07:26-0500 Body mass index (BMI) [Ratio] 33.13 kg/m2 Lemuel Lee MD Work Phone: [employer] [facility] 08-05-2022 07:26-0500 Body weight 87.54 kg Lemuel Lee MD Work Phone: [facility] 08-05-2022 07:26-0500 Diastolic blood pressure 72 mm[Hg] Lemuel Lee MD Work Phone: [facility] 08-05-2022 07:26-0500 Systolic blood pressure 124 mm[Hg] Lemuel Lee MD Work Phone: [facility] 07-30-2022 15:04-0500 Body height 162.6 cm Lemuel Lee MD Work Phone: [facility] 07-30-2022 15:04-0500 Body mass index (BMI) [Ratio] 32.79 kg/m2 Lemuel Lee MD Work Phone: [facility] 07-30-2022 15:04-0500 Body weight 86.64 kg Lemuel Lee MD Work Phone: [facility] 07-30-2022 15:04-0500 Diastolic blood pressure 74 mm[Hg] Lemuel Lee MD Work Phone: [facility] 07-30-2022 15:04-0500 Systolic blood pressure 134 mm[Hg] Lemuel Lee MD Work Phone: [facility] 07-23-2022 08:56-0500 Body height 162.6 cm Lemuel Lee MD Work Phone: [facility] 07-23-2022 08:56-0500 Body mass index (BMI) [Ratio] 32.61 kg/m2 Lemuel Lee MD Work Phone: [facility] 07-23-2022 08:56-0500 Body weight 86.18 kg Lemuel Lee MD Work Phone: [facility] 07-23-2022 08:56-0500 Diastolic blood pressure 82 mm[Hg] Lemuel Lee MD Work Phone: [facility] 07-23-2022 08:56-0500 Systolic blood pressure 120 mm[Hg] Lemuel Lee MD Work Phone: [facility] 07-21-2022 07:24-0500 Body height 162.6 cm Татьяна Brooke LATHE SCALPER OPERATOR Work Phone: [facility] 07-21-2022 07:24-0500 Body mass index (BMI) [Ratio] 32.56 kg/m2 Татьяна Brooke LATHE SCALPER OPERATOR Work Phone: [facility] 07-21-2022 07:24-0500 Body temperature 98.2 [degF] Татьяна Brooke LATHE SCALPER OPERATOR Work Phone: [facility] 07-21-2022 07:24-0500 Body weight 86.05 kg Татьяна Brooke LATHE SCALPER OPERATOR Work Phone: [facility] 07-21-2022 07:24-0500 Diastolic blood pressure 84 mm[Hg] Татьяна Brooke LATHE SCALPER OPERATOR Work Phone: [facility] 07-21-2022 07:24-0500 Heart rate 80 /min Татьяна Brooke LATHE SCALPER OPERATOR Work Phone: [facility] 07-21-2022 07:24-0500 Respiratory rate 16 /min Татьяна Brooke LATHE SCALPER OPERATOR Work Phone: [facility] 07-21-2022 07:24-0500 Systolic blood pressure 120 mm[Hg] Татьяна Brooke LATHE SCALPER OPERATOR Work Phone: [facility] 07-17-2022 11:14-0400 Body height 162.6 cm Lauren Perez APRN-LATHE SCALPER OPERATOR Work Phone: [facility] 07-17-2022 11:14-0400 Body mass index (BMI) [Ratio] 31.76 kg/m2 Lauren Perez APRN-LATHE SCALPER OPERATOR Work Phone: [facility] 07-17-2022 11:14-0400 Body weight 83.92 kg Lauren Perez APRN-LATHE SCALPER OPERATOR Work Phone: [facility] 07-17-2022 11:14-0400 Diastolic blood pressure 78 mm[Hg] Lauren Perez APRN-LATHE SCALPER OPERATOR Work Phone: [facility] 07-17-2022 11:14-0400 Systolic blood pressure 116 mm[Hg] Lauren Perez BIJAL-LATHE SCALPER OPERATOR Work Phone: [facility] 07-13-2022 12:49-0400 Body mass index (BMI) [Ratio] 32.54 kg/m2 Josse Walter MD Work Phone: [facility] 07-13-2022 12:49-0400 Body weight 86 kg Josse Walter MD Work Phone: [facility] 07-13-2022 12:49-0400 Diastolic blood pressure 80 mm[Hg] Josse Walter MD Work Phone: [facility] 07-13-2022 12:49-0400 Systolic blood pressure 120 mm[Hg] Josse Walter MD Work Phone: [facility] 07-09-2022 08:41-0400 Body height 162.6 cm Lemuel Lee MD Work Phone: [facility] 07-09-2022 08:41-0400 Body mass index (BMI) [Ratio] 32.27 kg/m2 Lemuel Lee MD Work Phone: [facility] 07-09-2022 08:41-0400 Body weight 85.28 kg Lemuel Lee MD Work Phone: [facility] [employer] [facility] 07-09-2022 08:41-0400 Diastolic blood pressure 62 mm[Hg] Lemuel Lee MD Work Phone: [facility] 07-09-2022 08:41-0400 Systolic blood pressure 118 mm[Hg] Lemuel Lee MD [facility] 06-29-2022 09:11-0400 Body height 162.6 cm Lemuel Lee MD Work Phone: [facility] 06-29-2022 09:11-0400 Body mass index (BMI) [Ratio] 31.93 kg/m2 Lemuel Lee MD Work Phone: [facility] 06-29-2022 09:11-0400 Body weight 84.37 kg Lemuel Lee MD Work Phone: [facility] 06-29-2022 09:11-0400 Diastolic blood pressure 78 mm[Hg] Lemuel Lee MD Work Phone: [facility] 06-29-2022 09:11-0400 Systolic blood pressure 120 mm[Hg] Lemuel Lee MD Work Phone: [facility] 06-25-2022 09:08-0400 Body height 162.6 cm Lemuel Lee MD Work Phone: [facility] 06-25-2022 09:08-0400 Body mass index (BMI) [Ratio] 31.58 kg/m2 Lemuel Lee MD Work Phone: [phone](765)[phone] [place] [address] 06-25-2022 09:08-0400 Body weight 83.46 kg Lemuel Lee MD Work Phone: 5(082)[phone] [place] [address] 06-25-2022 09:08-0400 Diastolic blood pressure 78 mm[Hg] Lemuel Lee MD Work Phone: [phone](471)[phone] [place] [address] 06-25-2022 09:08-0400 Systolic blood pressure 108 mm[Hg] Lemuel Lee MD Work Phone: [facility] 06-18-2022 10:06-0400 Body height 162.6 cm Lemuel Lee MD Work Phone: [facility] 06-18-2022 10:06-0400 Body mass index (BMI) [Ratio] 31.93 kg/m2 Lemuel Lee MD Work Phone: [facility] 06-18-2022 10:06-0400 Body weight 84.37 kg Lemuel Lee MD Work Phone: [facility] 06-18-2022 10:06-0400 Diastolic blood pressure 78 mm[Hg] Lemuel Lee MD Work Phone: [facility] 06-18-2022 10:06-0400 Systolic blood pressure 102 mm[Hg] Lemuel Lee MD Work Phone: [facility] 06-17-2022 14:32-0400 Diastolic blood pressure 76 mm[Hg] Татьяна Villegas RN [facility] 06-17-2022 14:32-0400 Heart rate 83 /min Татьяна Villegas RN [facility] 06-17-2022 14:32-0400 Respiratory rate 18 /min Татьяна Villegas RN [facility] 06-17-2022 14:32-0400 Systolic blood pressure 120 mm[Hg] Татьяна Villegas RN [facility] 05-22-2022 14:22-0400 Body mass index (BMI) [Ratio] 32.1 kg/m2 Josse Walter MD Work Phone: [facility] 05-22-2022 14:22-0400 Body weight 84.82 kg Josse Walter MD Work Phone: [facility] 05-22-2022 14:22-0400 Diastolic blood pressure 80 mm[Hg] Josse Walter MD Work Phone: [facility] 05-22-2022 14:22-0400 Systolic blood pressure 130 mm[Hg] Josse Walter MD Work Phone: [facility] 04-30-2022 10:12-0400 Body height 162.6 cm Lauren Perez EDUCATIONAL ADMINISTRATOR-LATHE SCALPER OPERATOR Work Phone: [facility] 04-30-2022 10:12-0400 Body mass index (BMI) [Ratio] 30.55 kg/m2 Lauren Perez EDUCATIONAL ADMINISTRATOR-LATHE SCALPER OPERATOR Work Phone: [facility] 04-30-2022 10:12-0400 Body weight 80.74 kg Lauren Perez EDUCATIONAL ADMINISTRATOR-LATHE SCALPER OPERATOR Work Phone: [facility] 04-30-2022 10:12-0400 Diastolic blood pressure 62 mm[Hg] Lauren Perez EDUCATIONAL ADMINISTRATOR-LATHE SCALPER OPERATOR Work Phone: [facility] 04-30-2022 10:12-0400 Systolic blood pressure 106 mm[Hg] Lauren Perez EDUCATIONAL ADMINISTRATOR-LATHE SCALPER OPERATOR Work Phone: [facility] 04-09-2022 10:04-0400 Body mass index (BMI) [Ratio] 29.87 kg/m2 Josse Walter MD Work Phone: [facility] 04-09-2022 10:04-0400 Body weight 78.93 kg Josse Walter MD Work Phone: [facility] 04-09-2022 10:04-0400 Diastolic blood pressure 60 mm[Hg] Josse Walter MD Work Phone: [facility] 04-09-2022 10:04-0400 Systolic blood pressure 140 mm[Hg] Josse Walter MD Work Phone: [facility] 03-12-2022 15:07-0400 Body height 162.6 cm Lemuel Lee MD Work Phone: [facility] 03-12-2022 15:07-0400 Body mass index (BMI) [Ratio] 28.67 kg/m2 Lemuel Lee MD Work Phone: [facility] 03-12-2022 15:07-0400 Body weight 75.75 kg Lemuel Lee MD Work Phone: [facility] 03-12-2022 15:07-0400 Diastolic blood pressure 72 mm[Hg] Lemuel Lee MD Work Phone: [facility] 03-12-2022 15:07-0400 Systolic blood pressure 110 mm[Hg] Lemuel Lee MD Work Phone: [facility] 02-02-2022 14:47-0400 Body mass index (BMI) [Ratio] 27.67 kg/m2 Josse Walter MD Work Phone: [facility] 02-02-2022 14:47-0400 Body weight 73.12 kg Josse Walter MD Work Phone: [facility] 02-02-2022 14:47-0400 Diastolic blood pressure 80 mm[Hg] Josse Walter MD Work Phone: [facility] 02-02-2022 14:47-0400 Systolic blood pressure 110 mm[Hg] Josse Walter MD Work Phone: [facility] 01-09-2022 13:38-0400 Body height 162.6 cm Avg Chioma Gal [id number] [facility] 01-09-2022 13:38-0400 Body mass index (BMI) [Ratio] 27.46 kg/m2 Avg Chioma Gal [id number] [facility] 01-09-2022 13:38-0400 Body weight 72.58 kg Avg Chioma Gal [id number] [facility] 01-09-2022 13:38-0400 Diastolic blood pressure 78 mm[Hg] Avg Chioma Gal [id number] [facility] 01-09-2022 13:38-0400 Systolic blood pressure 120 mm[Hg] Avg Chioma Gal [id number] [facility] 12-17-2021 08:00-0400 Body height 162.6 cm Lemuel Lee MD Work Phone: [facility] 12-17-2021 08:00-0400 Body mass index (BMI) [Ratio] 26.95 kg/m2 Lemuel Lee MD Work Phone: [facility] 12-17-2021 08:00-0400 Body weight 71.22 kg Lemuel Lee MD Work Phone: [facility] 12-17-2021 08:00-0400 Diastolic blood pressure 68 mm[Hg] Lemuel Lee MD Work Phone: [facility] 12-17-2021 08:00-0400 Systolic blood pressure 122 mm[Hg] Lemuel Lee MD Work Phone: [facility] 11-24-2021 07:07-0400 Body height 162.6 cm Lemuel Lee MD Work Phone: [facility] 11-24-2021 07:07-0400 Body mass index (BMI) [Ratio] 26.43 kg/m2 Lemuel Lee MD Work Phone: [facility] 11-24-2021 07:07-0400 Body weight 69.85 kg Lemuel Lee MD Work Phone: [facility] 11-24-2021 07:07-0400 Diastolic blood pressure 68 mm[Hg] Lemuel Lee MD Work Phone: [facility] 11-24-2021 07:07-0400 Systolic blood pressure 118 mm[Hg] Lemuel Lee MD Work Phone: [facility] 01-30-2020 08:02-0400 BMI (Body Mass Index) 29.32 kg/m2 [facility] 01-30-2020 08:02-0400 Body Temperature 98.49 [degF] [facility] 01-30-2020 08:02-0400 Body weight 77.47 kg [facility] 01-30-2020 08:02-0400 BP Diastolic 70 mm[Hg] [facility] 01-30-2020 08:02-0400 BP Systolic 120 mm[Hg] [facility] 01-30-2020 08:02-0400 Height 162.6 cm [facility] 01-30-2020 08:02-0400 Pulse (Heart Rate) 88 /min [facility] 01-30-2020 08:02-0400 Respiratory Rate 14 /min [facility] 10-12-2019 16:36-0500 BMI (Body Mass Index) 30.93 kg/m2 [facility] 10-12-2019 16:36-0500 Body Temperature 98.4 [degF] [facility] 10-12-2019 16:36-0500 Body weight 81.74 kg [facility] 10-12-2019 16:36-0500 BP Diastolic 80 mm[Hg] [facility] 10-12-2019 16:36-0500 BP Systolic 110 mm[Hg] [facility] 10-12-2019 16:36-0500 Height 162.6 cm [facility] 10-12-2019 16:36-0500 Pulse (Heart Rate) 92 /min [facility] 10-12-2019 16:36-0500 Respiratory Rate 16 /min [facility] 09-25-2019 17:06-0500 BMI (Body Mass Index) 31.58 kg/m2 [facility] 09-25-2019 17:06-0500 Body Temperature 98.4 [degF] [facility] 09-25-2019 17:06-0500 Body weight 83.46 kg [facility] 09-25-2019 17:06-0500 BP Diastolic 80 mm[Hg] [facility] 09-25-2019 17:06-0500 BP Systolic 130 mm[Hg] [facility] 09-25-2019 17:06-0500 Height 162.6 cm [facility] 09-25-2019 17:06-0500 Pulse (Heart Rate) 82 /min [facility] 09-25-2019 17:06-0500 Respiratory Rate 16 /min [facility] 01-21-2018 12:52-0400 Body Temperature 98.1 [degF] [facility] 01-21-2018 12:52-0400 BP Diastolic 70 mm[Hg] [facility] 01-21-2018 12:52-0400 BP Systolic 118 mm[Hg] [facility] 01-21-2018 12:52-0400 Pulse (Heart Rate) 70 /min [facility] 01-21-2018 12:52-0400 Respiratory Rate 16 /min [facility] 01-21-2018 12:52-0400 Weight 78.29 [facility] Encounters Encounter Date Encounter Type Care Provider Facility Start: 08-10-2025 ambulatory Keyla Meneses Facilit y:[facility] Start: 07-27-2025 ambulatory Keyal Meneses [facility]ilit y:[facility] Start: 07-24-2025 End: 07-24-2025 ambulatory Keyla Meneses Facility:[facility] Start: 07-20-2025 End: 07-20-2025 ambulatory Emmanuelle Contrersa Facility:[facility] Start: 07-17-2025 End: 07-17-2025 ambulatory Emmanuelle Contreras Facility:[facility] Start: 07-16-2025 ambulatory KEYLA MENESES [facility] Ambulatory Start: 07-13-2025 End: 07-13-2025 ambulatory Keyla Meneses Facility:[facility] Start: 07-13-2025 ambulatory Keyla Meneses Facilit y:[facility] Start: 07-10-2025 End: 07-10-2025 ambulatory Emma Bianca Facility:[facility] Start: 07-05-2025 End: 07-05-2025 Orders Only Keyla Meneses LATHE SCALPER OPERATOR Work Phone: [facility] Comment on above: Anxiety and depressi on (Primary Dx) Start: 06-26-2025 End: 06-30-2025 ambulatory KEYLA MENESES [facility] Ambulatory Start: 06-25-2025 End: 06-25-2025 Patient encounter procedure Nel HANSEN -[facility] Work Phone: Start: 06-25-2025 End: 06-25-2025 ambulatory Keyla Meneses NUTRITIONAL HEALTH COACH-C Work Phone: [facility] Start: 06-13-2025 End: 06-13-[address] Emmanuelle Contreras DO -[facility] Work Phone: Start: 06-13-2025 End: 06-13-2025 ambulatory Keyla Meneses NUTRITIONAL HEALTH COACH-C Work Phone: -[facility] Start: 06-12-2025 End: 06-13-2025 ambulatory ROSHNI DAVIDSON [facility] Start: 05-22-2025 End: 05-22-2025 Patient encounter procedure Emma Bianca NUTRITIONAL HEALTH COACH-C -[facility] Work Phone: Start: 05-22-2025 End: 05-22-2025 ambulatory Keyla Meneses NUTRITIONAL HEALTH COACH-C Work Phone: [facility] Start: 04-27-2025 End: 04-27-2025 Patient encounter procedure Nel HANSEN -[facility] Work Phone: Start: 04-27-2025 End: 04-27-2025 ambulatory Keyla Era Meneses NUTRITIONAL HEALTH COACH-C Work Phone: [facility] Start: 04-10-2025 End: 04-10-2025 ambulatory EMMANUELLE HERNÁNDEZ [facility] Start: 03-30-2025 End: 03-30-[address] Ayala Thompson MD -[facility] Work Phone: Start: 03-30-2025 End: 03-30-2025 ambulatory Keyla Era Gideon NUTRITIONAL HEALTH COACH-C Work Phone: [facility] Start: 03-26-2025 End: 03-26-2025 Office outpatient visit 15 minutes Upsol Fuentes MD Work Phone: [facility] Comment on above: Unspecified mood (af fective) disorder (HCC) (Primary Dx) Start: 03-26-2025 End: 03-26-2025 ambulatory KEYLA KEOLIZ GIDEON [facility] Ambulatory Start: 03-05-2025 ambulatory KEYLA LONNAE GIDEON [facility] Ambulatory Start: 03-01-2025 End: 03-01-[address] Emmanuelle Contreras DO -[facility] Work Phone: Start: 03-01-2025 End: 03-01-2025 ambulatory Keyla Meneses NUTRITIONAL HEALTH COACH-C Work Phone: [facility] Work Phone: Start: 03-01-2025 End: 03-01-2025 ambulatory Keyla L Gideon Facility:[facility] Start: 01-22-2025 ambulatory KEYLA HERBIE GIDEON [facility] Ambulatory Start: 01-18-2025 End: 01-18-2025 ambulatory Keylasusan Meneses NUTRITIONAL HEALTH COACH-C Work Phone: [facility] Work Phone: Start: 01-18-2025 End: 01-18-2025 Patient encounter procedure Nel HANSENM -[facility] Work Phone: Start: 01-18-2025 End: 01-18-2025 Patient encounter procedure [facility]el Speedy [facility] Start: 01-18-2025 End: 01-18-2025 ambulatory Keyla Meneses Facility:[facility] Start: 01-18-2025 End: 01-18-2025 ambulatory Keyla Meneses Facility:[facility] Start: 01-02-2025 End: 01-02-2025 ambulatory Keyla Meneses Facility:[facility] Start: 01-02-2025 End: 01-02-2025 Patient encounter procedure Emma Valenzuela NUTRITIONAL HEALTH COACH-C -[facility] Work Phone: Start: 12-25-2024 End: 12-25-2024 Office outpatient visit 25 minutes Anna Fuentes MD Work Phone: [facility] Comment on above: Unspecified mood (af fective) disorder (HCC) (Primary Dx); as incidental finding Start: 12-25-2024 End: 12-25-2024 ambulatory [employer] [facility] Start: 11-09-2024 End: 11-09-2024 Patient encounter procedure Antonio Lopez PA-C Work Phone: [facility] Comment on above: Acute rhinosinusitis (Primary Dx) Start: 11-09-2024 End: 11-09-2024 ambulatory ANAND EDMOND [facility] Start: 10-02-2024 End: 10-02-2024 Refill Anna Fuentes MD Work Phone: [facility] Start: 07-27-2024 End: 07-27-2024 Refill Anna Fuentes MD Work Phone: [facility] Start: 06-15-2024 End: 06-19-2024 ambulatory KEYLA MEYER [facility] Start: 05-19-2024 End: 05-19-2024 Documentation procedure Sussy Degroot MA [facility] Comment on above: Care coordination BH P Start: 05-18-2024 End: 05-18-2024 Office outpatient visit 15 minutes Keyla Meneses LATHE SCALPER OPERATOR Work Phone: [facility] Comment on above: Anxiety and depressi on (Primary Dx) Start: 05-05-2024 End: 05-05-2024 Documentation procedure Sussy Degroot MA [facility] Comment on above: Care coordination P Start: 04-28-2024 End: 04-28-2024 Documentation procedure Sussy Degroot MA [facility] Comment on above: Care coordination P Start: 04-27-2024 End: 04-27-2024 Office outpatient visit 15 minutes Keyla Meneses LATHE SCALPER OPERATOR Work Phone: [facility] Comment on above: Anxiety and depressi on (Primary Dx) Start: 04-25-2024 End: 04-29-2024 ambulatory KEYLA MENESES [facility] Start: 04-06-2024 End: 04-06-2024 Office outpatient visit 15 minutes Keyla Meneses LATHE SCALPER OPERATOR Work Phone: [facility] Comment on above: Anxiety (Primary Dx) ; Chronic fatigue Start: 03-06-2024 End: 03-06-2024 Office outpatient visit 15 minutes Keyla Meneses LATHE SCALPER OPERATOR Work Phone: [facility] Comment on above: Anxiety (Primary Dx) Start: 12-17-2023 End: 12-17-2023 Office outpatient visit 15 minutes Amy PALMER Work Phone: [facility] Comment on above: Acute non-recurrent frontal sinusitis (Primary Dx) Start: 12-13-2023 ambulatory FABIÁN GREEN [facility] Start: 12-07-2023 ambulatory AMY CHI [facility] Start: 12-07-2023 End: 12-07-2023 Office outpatient visit 15 minutes Татьяна Brooke LATHE SCALPER OPERATOR Work Phone: [facility] Comment on above: Sore throat (Primary Dx) Start: 10-26-2023 ambulatory ANAND COOLEY [facility] Start: 10-26-2023 Encounter for gynecological examination (general) (routine) without abnormal findings LMEUEL ELE [facility] Start: 10-26-2023 End: 10-26-2023 Patient encounter procedure Lemuel Lee MD Work Phone: [facility] Work Phone: Start: 10-26-2023 End: 10-26-2023 Periodic preventive med est patient 18-39 yrs Lemuel Lee MD Work Phone: [facility] [employer] Comment on above: Well woman exam with routine gynecological exam (Primary Dx); Cervical cancer screening Start: 09-29-2023 ambulatory ANAND Yoder [facility] Start: 09-29-2023 End: 09-29-2023 Office outpatient visit 15 minutes Jelena Walter APRN-LATHE SCALPER OPERATOR Work Phone: [facility] Comment on above: Acute bronchitis, un specified organism (Primary Dx); Acute cough Start: 09-01-2023 End: 09-01-2023 Office outpatient visit 25 minutes Татьяна Brooke CNP Work Phone: [facility] Comment on above: Anxiety (Primary Dx) Start: 07-21-2023 End: 07-21-2023 Initial preventive medicine new pt age 18-39yrs Татьяна Brooke CNP Work Phone: [facility] Comment on above: Preventative health care (Primary Dx); Anxiety Start: 07-21-2023 End: 07-21-2023 Patient encounter status Татьяна Brooke CNP Work Phone: [facility] Work Phone: Start: 07-09-2023 ambulatory ANAND [facility] Start: 07-06-2023 ambulatory ANAND [facility] Start: 04-01-2023 ambulatory [facility]ND COOLEY [facility] Start: 01-07-2023 End: 01-07-2023 Emergency department patient visit Marie Fabiano [place] [id number] Start: 01-05-2023 ambulatory SELF SELF [facility] Start: 01-05-2023 End: 01-05-2023 Office outpatient visit 15 minutes Amy PALMER Work Phone: [facility] Comment on above: Viral URI with cough (Primary Dx); Acute cough Start: 12-31-2022 End: 12-31-2022 Emergency department patient visit Marie Mario [facility] Start: 10-20-2022 End: 10-20-2022 Office outpatient visit 10 minutes Lemuel Lee MD Work Phone: [facility] [employer] Comment on above: Disruption of episio keyanna wound in the puerperium (Primary Dx) Start: 08-11-2022 End: 08-13-2022 Evaluation and management of inpatient Lemuel Lee MD Work Phone: [facility] Comment on above: Encounter for induct ion of labor Start: 08-05-2022 End: 08-05-2022 Subsequent care visit Lemuel Lee MD Work Phone: [facility] [employer] Comment on above: Diet controlled gest ational diabetes mellitus (GDM) in third trimester (Primary Dx); Supervision of high risk in third trimester; 37 weeks gestation of Start: 07-30-2022 End: 07-30-2022 Subsequent care visit Lemuel Lee MD Work Phone: [facility] [employer] Comment on above: Diet controlled gest ational diabetes mellitus (GDM) in third trimester (Primary Dx); Supervision of high risk in third trimester; 37 weeks gestation of Start: 07-23-2022 End: 07-23-2022 Subsequent care visit Lemuel Lee MD Work Phone: [facility] [employer] Comment on above: Diet controlled gest ational diabetes mellitus (GDM) in third trimester (Primary Dx); Supervision of high risk in third trimester; 36 weeks gestation of Start: 07-21-2022 End: 07-21-2022 Patient encounter status Татьяна Brooke CNP Work Phone: [facility] Start: 07-21-2022 End: 07-21-2022 Periodic preventive med est patient 18-39 yrs Татьяна Brooke LATHE SCALPER OPERATOR Work Phone: [facility] Comment on above: Preventative health care (Primary Dx) Start: 07-17-2022 End: 07-17-2022 Subsequent care visit Lauren ePrez EDUCATIONAL ADMINISTRATOR-LATHE SCALPER OPERATOR Work Phone: [facility] [employer] Comment on above: Supervision of high risk in third trimester (Primary Dx); Diet controlled gestational diabetes mellitus (GDM) in third trimester; 35 weeks gestation of Start: 07-13-2022 End: 07-13-2022 Subsequent care visit Josse Walter MD Work Phone: [facility] [employer] Comment on above: RUQ pain (Primary Dx ); Abnormal maternal glucose tolerance, antepartum; Diet controlled gestational diabetes mellitus (GDM) in third trimester Start: 07-09-2022 End: 07-09-2022 Subsequent care visit Lemuel Lee MD Work Phone: [facility] [employer] Comment on above: Diet controlled gest ational diabetes mellitus (GDM) in third trimester (Primary Dx); Encounter for supervision of high risk in third trimester, antepartum; 34 weeks gestation of Start: 06-29-2022 End: 06-29-2022 Subsequent care visit Lemuel Lee MD Work Phone: [facility] [employer] Comment on above: Diet controlled gest ational diabetes mellitus (GDM) in third trimester (Primary Dx); Encounter for supervision of high risk in third trimester, antepartum; 32 weeks gestation of Start: 06-25-2022 End: 06-25-2022 Subsequent care visit Josse Walter MD Work Phone: [facility] [employer] Comment on above: Diet controlled gest ational diabetes mellitus (GDM) in third trimester (Primary Dx); Encounter for supervision of high risk in third trimester, antepartum; 32 weeks gestation of Start: 06-18-2022 End: 06-18-2022 Subsequent care visit Lemuel Lee MD Work Phone: [facility] [employer] Comment on above: Diet controlled gest ational diabetes mellitus (GDM) in third trimester (Primary Dx); Encounter for supervision of high risk in third trimester, antepartum; 31 weeks gestation of ; Ultrasound scan done for inability to hear heart tones Start: 06-18-2022 End: 06-18-2022 Subsequent hospital visit by physician Lemuel Lee MD Work Phone: [facility] Start: 06-17-2022 End: 06-17-2022 Nutrition therapy Lemuel Lee MD Work Phone: [facility] Comment on above: Diet controlled gest ational diabetes mellitus (GDM), antepartum (Primary Dx) Start: 06-16-2022 End: 06-16-2022 Nutrition therapy Lemuel Lee MD Work Phone: [facility] Comment on above: Diet controlled gest ational diabetes mellitus (GDM), antepartum Start: 06-15-2022 End: 06-15-2022 Subsequent hospital visit by physician Lemuel Lee MD [facility] Phone[facility] Comment on above: Arrived Start: 05-22-2022 End: 05-22-2022 Subsequent care visit Josse Walter MD Work Phone: [facility] [employer] Comment on above: Decreased move ments in second trimester, single or unspecified fetus (Primary Dx) Start: 04-30-2022 End: 04-30-2022 Subsequent care visit Lemuel Lee MD Work Phone: [facility] [employer] Comment on above: Encounter for superv ision of normal first in second trimester (Primary Dx); 24 weeks gestation of Start: 04-30-2022 End: 04-30-2022 Subsequent hospital visit by physician Josse Walter MD Work Phone: [facility] Start: 04-09-2022 End: 04-09-2022 Subsequent care visit Josse Walter MD Work Phone: [facility] [employer] Comment on above: care in sec ond trimester (Primary Dx) Start: 04-09-2022 End: 04-09-2022 Subsequent hospital visit by physician Lemuel Lee MD Work Phone: [facility] Start: 03-12-2022 End: 03-12-2022 Subsequent care visit Lemuel Lee MD Work Phone: [facility] [employer] Comment on above: Encounter for superv ision [...] care visit Josse Walter MD Work Phone: [facility] [employer] Comment on above: Dysuria (Primary Dx) Start: 01-26-2022 End: 01-26-2022 Subsequent hospital visit by physician Josse Walter MD Work Phone: [facility] Start: 01-09-2022 End: 01-09-2022 Office outpatient visit 5 minutes Lemuel Lee MD Work Phone: [facility] [employer] Comment on above: 8 weeks gestation of (Primary Dx) Start: 12-17-2021 End: 12-17-2021 Office outpatient visit 15 minutes Lemuel Lee MD Work Phone: [facility] [employer] Comment on above: Pelvic pain in pregn deonna, antepartum, first trimester (Primary Dx) Start: 11-24-2021 End: 11-24-2021 Office outpatient visit 15 minutes Lemuel Lee MD Work Phone: [facility] [employer] Comment on above: Infertility associat ed with anovulation (Primary Dx) Start: 01-30-2020 End: 01-30-2020 Office outpatient visit 25 minutes Татьяна Brooke Work Phone: [facility] Comment on above: Weight gain (Primary Dx); PCOS (polycystic ovarian syndrome) Start: 10-12-2019 End: 10-12-2019 Office outpatient visit 25 minutes Татьяна Brooke Work Phone: [facility] Comment on above: PCOS (polycystic ova chandler syndrome) (Primary Dx) Start: 09-25-2019 End: 09-25-2019 Office outpatient visit 25 minutes Татьяна Brooke Work Phone: [facility] Comment on above: Weight gain (Primary Dx) Start: 01-31-2019 End: 02-04-2019 Patient encounter procedure ANAND COOLEY [facility] Start: 01-21-2018 End: 01-21-2018 Office/outpatient visit, est, level 3 Anand Herrmannwell Work Phone: [facility] [facility] Start: 08-31-2017 End: 08-31-2017 Emergency department patient visit Michael Aisha Facility:[facility] [place] Date Procedure Procedure Detail Performing Clinician Start: 06-13-2025 Serologic test for syphilis Keyla Meneses NUTRITIONAL HEALTH COACH-C Work Phone: Start: 03-01-2025 Hepatitis C antibody measurement Keylasusan Meneses NUTRITIONAL HEALTH COACH-C Work Phone: Comment on above: Reactive: Presumptiv e evidence of antibodies to HCV. Follow CDC recommendations for supplemental testing.Non-Reactive: Antibodies to HCV were not detected; does not exclude the possibility of exposure to HCVReactive Results are presumptive evidence of antibodies to HCV. Follow CDC recommendations for supplemental testing.Order confirmation testing: HCV Quant by PCR testing - HCVPCR #[id number] Non Reactive: < 0.8 Equivocal: >/= 0.8 to < 1.0 Reactive: >/= 1.0The CDC requires that a reactive/equivocal HCV antibody result be sent out for confirmation. HCV Quant by PCR testing. Start: 03-01-2025 Procedure Keyla Winn NUTRITIONAL HEALTH COACH-C Work Phone: Start: 03-01-2025 Rubella IgG measurement Keyla Meneses NUTRITIONAL HEALTH COACH-C Work Phone: Comment on above: Antibody Result: Int erpretationNon-Reactive: Non- ImmuneReactive: ImmuneThe following results were obtained with the [employer] Rubella IgG assay. Results from assays of other manufacturers cannot be used interchangeably. Start: 03-01-2025 Serologic test for syphilis Keyla Meneses NUTRITIONAL HEALTH COACH-C Work Phone: Start: 01-18-2025 Urine culture Keyla zavaletamoe NUTRITIONAL HEALTH COACH-C Work Phone: Start: 12-25-2024 Gonadotropin chorion ic qualitative Anna Fuentes MD Work Phone: Start: 06-15-2024 Lipid 1996 panel - S jai or Plasma Anna Fuentes MD Work Phone: Start: 12-07-2023 Iaadiadoo streptococ cus group a Amy PALMER Work Phone: Start: 10-26-2023 Microscopic observat ion [Identifier] in Cervix by Cyto stain Keyla Meneses LATHE SCALPER OPERATOR Work Phone: Start: 09-29-2023 Iaadiadoo influenza Benita alin Kiko Jessica EDUCATIONAL ADMINISTRATOR-[facility] Work Phone: Start: 09-29-2023 SARS-CoV-2 (COVID-19 ) RNA [Presence] in Unspecified specimen by NELLY with probe detection Jelena Walter EDUCATIONAL ADMINISTRATOR-[facility] Work Phone: Start: 07-21-2023 Adult depression scr eening assessment Татьяна Brooke [facility] Work Phone: Start: 09-21-2022 Microscopic observat ion [Identifier] in Cervix by Cyto stain Татьяна Brooke [facility] Work Phone: Start: 08-12-2022 Blood count complete auto&auto difrntl wbc Lemuel Lee MD Work Phone: Start: 08-11-2022 End: 08-11-2022 Blood count complete auto&auto difrntl wbc Lemuel Lee MD Work Phone: Start: 08-11-2022 Drug test prsmv read direct optical obs pr date Lemuel Lee MD Work Phone: Start: 08-11-2022 Sars-cov-2 detection by dna/rna Lemuel Lee MD Work Phone: Start: 08-05-2022 nonstress test Jovan Lee MD Work Phone: Start: 07-30-2022 nonstress test Jovan Lee MD Work Phone: Start: 07-23-2022 nonstress test Jovan Lee MD Work Phone: Start: 07-21-2022 Adult depression scr eening assessment Татьяна Brooke LATHE SCALPER OPERATOR Work Phone: Start: 07-17-2022 Hemoglobin glycosylated a1c Lauren Luna Ana EDUCATIONAL ADMINISTRATOR-LATHE SCALPER OPERATOR Work Phone: Start: 07-17-2022 nonstress test Sh nusrat Zunigaam EDUCATIONAL ADMINISTRATOR-LATHE SCALPER OPERATOR Work Phone: Start: 07-13-2022 Complete blood count with white cell differential, automated Josse Walter MD Work Phone: Start: 07-13-2022 Comprehensive metabo lic panel Josse Walter MD Work Phone: Start: 07-09-2022 nonstress test Ty irma Lee MD Work Phone: Start: 06-29-2022 nonstress test Jovan Lee MD Work Phone: Start: 06-25-2022 nonstress test Ty irma Lee MD Work Phone: Start: 06-18-2022 nonstress test Jovan Lee MD Work Phone: Start: 06-18-2022 Us preg uterus real time f/u trnsabdl per fetus Lemuel Lee MD Work Phone: Start: 06-15-2022 Ecg routine ecg w/le ast 12 lds trcg only w/o i&r Lemuel Lee MD Work Phone: Start: 05-22-2022 nonstress test Roshni carola Walter MD Work Phone: Start: 04-09-2022 Us preg uterus after 1st trimest 09/13 gestation Josse Walter MD Work Phone: Start: 02-02-2022 Us uterus 1 4 wk transabdl 09/13 gestat Josse Walter MD Work Phone: Start: 01-26-2022 Us uterus 1 4 wk transabdl 09/13 gestat Josse Walter MD Work Phone: Start: 01-09-2022 RAPID TOX SCREEN WIT H RELEX TO [facility] Josse Walter MD Work Phone: Start: 01-09-2022 [...] Treatment Date Care Activity Detail Author Start: 2070 Respiratory Syncytial Virus Immunization: Risk, 60-74 Risk, or 75+ (1 - 1-dose 75+ series) Respiratory Syncytial Virus Immunization: Risk, 60-74 Risk, or 75+ (1 - 1-dose 75+ series) [facility] Start: 2070 RSV Vaccines (1 - 1-dose 75+ series) RSV Vaccines (1 - 1-dose 75+ series) [facility] Start: 2045 Administration of herpes zoster vaccine Zoster Vaccines (1 of 2) [facility] Start: 2045 Zoster Vaccines (1 of 2) Zoster Vaccines (1 of 2) [facility] Start: 06-15-2029 Lipid panel Lipid Panel [facility] Start: 10-26-2026 Screening for malignant neoplasm of cervix [facility] Start: 09-21-2025 Screening for malignant neoplasm of cervix Pap Smear [facility] Start: 06-26-2025 End: 06-26-2025 Patient encounter procedure 06/26/2025 2:30 PM EDT Office Visit [facility] [address] [place] [address] Anna Fuentes MD [address] [address] [facility] Start: 05-14-2025 COVID-19 Vaccine ( season) COVID-19 Vaccine ( season) [facility] Start: 05-14-2025 Influenza vaccination [facility] Start: 03-27-2025 End: 03-27-2025 Patient encounter procedure 03/27/2025 2:00 PM EDT Office Visit [facility] [address] [place] [address] Anna Fuentes MD [address] [place] [address] [facility] Start: 03-10-2025 COVID-19 Vaccine ( season) COVID-19 Vaccine ( season) [facility] Comment on above: Postponed from 05/14/2023 (Treatment Not Available) Start: 03-06-2025 Depression screening using PHQ-9 (Patient Health Questionnaire 9) score Depression Screening/Follow-Up (PHQ-2/9) [facility] Start: 2025 Screening for malignant neoplasm of cervix HPV/Cotest [facility] Start: 11-01-2024 End: 11-01-2024 Patient encounter procedure 11/01/2024 2:50 PM EST Office Visit [facility] [address] [address] Lemuel Lee MD [address] [facility] [address] [place] [phone] [facility] Start: 10-26-2024 History and physical examination, annual for health maintenance Wellness Visit [facility] Start: 10-26-2024 Screening for malignant neoplasm of cervix CERVICAL CANCER SCREENING DISCUSSION [facility] Start: 07-21-2024 Depression screening using PHQ-9 (Patient Health Questionnaire 9) score Depression Screening (PHQ-2/9) [facility] Start: 07-21-2024 History and physical examination, annual for health maintenance Wellness Visit [facility] Start: 06-09-2024 End: 06-09-2024 Patient encounter procedure 06/09/2024 1:00 PM EDT Initial consult [facility] [address] [place] [phone] Keyla Meneses, LATHE SCALPER OPERATOR [address] [place] [address] Anna Fuentes MD [address] [place] [address] [facility] Start: 05-18-2024 End: 05-18-2024 Patient encounter procedure 05/18/2024 8:00 AM EDT Office Visit [facility] [address] [place] [facility] [place] [address] Keyla Meneses CNP [address] [place] [address] [facility] Start: 05-14-2024 COVID-19 Vaccine ( season) COVID-19 Vaccine ( season) [facility] Start: 05-14-2024 COVID-19 Vaccine ( season) COVID-19 Vaccine () [facility] Start: 05-14-2024 Influenza vaccination [facility] Start: 04-27-2024 End: 04-27-2024 Patient encounter procedure 04/27/2024 8:00 AM EDT Office Visit [facility] [address] [place] [facility] [place] [address] Keyla Meneses, MED [address] [place] [address] [facility] Start: 04-06-2024 End: 04-06-2024 Patient encounter procedure 04/06/2024 8:30 AM EDT Office Visit [facility] [address] [place] [facility] [place] [address] Keyla Menesse LATHE SCALPER OPERATOR [address] [facility] [address] [facility] Start: 03-12-2024 Influenza vaccination Sequential Influenza Vaccine (#1) [facility] Comment on above: Postponed from 05/14/2023 (Patient Refus ed) Start: 12-07-2023 End: 12-06-2024 [facility] Comment on above: Expected: 12/07/2023, Expires: Start: 12-01-2023 End: 12-01-2023 Patient encounter procedure 12/01/2023 8:30 AM EDT Office Visit [facility] [address] [place] [address] Татьяна Brooke, LATHE SCALPER OPERATOR [address] [place] [address] [facility] Start: 10-26-2023 End: 10-26-2023 Patient encounter procedure [facility] Start: 10-26-2023 End: 10-26-2024 [facility] CYTOLOGY-JOB COACH/JOB DEVELOPER, LIQUID BASED [facility] CYTOLOGY-JOB COACH/JOB DEVELOPER, LIQUID BASED Cytology Routine Well woman exam with routine gynecological exam Cervical cancer screening Expected: 10/26/2023, Expires: 10/26/2024 [facility] Comment on above: Expected: 10/26/2023, Expires: Start: 09-21-2023 Screening for malignant neoplasm of cervix CERVICAL CANCER SCREENING DISCUSSION [facility] Start: 09-01-2023 End: 09-01-2023 Patient encounter procedure 09/01/2023 8:30 AM EST Office Visit [facility] [address] [place] [address] Татьяна Brooke, LATHE SCALPER OPERATOR [address] [place] [address] [facility] Start: 07-21-2023 Depression screening using PHQ-9 (Patient Health Questionnaire 9) score Depression Screening (PHQ-2/9) [facility] Start: 07-21-2023 History and physical examination, annual for health maintenance Wellness Visit [facility] Start: 05-14-2023 COVID-19 VACCINE ( season) COVID-19 VACCINE () [facility] Start: 05-14-2023 Influenza vaccination [facility] [employer] Start: 01-26-2023 GONORRHEA SCREEN GONORRHEA SCREEN [facility] Start: 01-26-2023 Screening for Chlamydia trachomatis CHLAMYDIA SCREEN [facility] Start: 10-22-2022 History and physical examination, annual for health maintenance Wellness Visit [facility] Start: 10-22-2022 Screening for malignant neoplasm of cervix CERVICAL CANCER SCREENING DISCUSSION [facility] Start: 08-05-2022 End: 08-05-2022 Follow-up encounter 08/05/2022 Follow Up Visit HOT MAN Lemuel Lee MD [address] [place] [phone] [facility] Start: 07-30-2022 End: 07-30-2022 Follow-up encounter 07/30/2022 Follow Up Visit HOT MAN Lemuel Lee MD [address] [place] [address] [facility] Start: 07-23-2022 End: 07-23-2022 Follow-up encounter 07/23/2022 Follow Up Visit HOT MAN Lemuel Lee MD [address] [place] [address] [facility] Start: 07-17-2022 End: 07-17-2023 BETA STREP, VAGINAL SCREEN [facility] Comment on above: Expected: 07/17/2022, Expires: Start: 07-17-2022 End: 07-17-2022 Follow-up encounter 07/17/2022 Follow Up Visit HOT MAN Lauren Perez APRN-LATHE SCALPER OPERATOR [id number] [place] [address] [facility] Start: 07-17-2022 End: 07-17-2022 Patient encounter procedure 07/17/2022 Appointment Ultrasound Lauren Perez APRN-LATHE SCALPER OPERATOR [id number] [place] [address] [facility] Start: 07-09-2022 End: 07-09-2023 OB ultrasound panel US OB GROWTH/DATING > 14WEEKS Imaging Routine Diet controlled gestational diabetes mellitus (GDM) in third trimester Expected: 07/09/2022, Expires: 07/09/2023 [facility] Comment on above: Expected: 07/09/2022, Expires: Start: 07-09-2022 End: 07-09-2022 Follow-up encounter 07/09/2022 Follow Up Visit HOT MAN Lemuel Lee MD [address] [place] [address] [facility] Start: 07-07-2022 End: 07-07-2022 Telemedicine consultation with patient 07/07/2022 Telemedicine Telephone Nutrition Lemuel Lee MD [address] [place], [place] [phone] Татьяна Villegas RN [facility] Start: 06-30-2022 End: 06-30-2022 Telemedicine consultation with patient 06/30/2022 Telemedicine Nutrition Lemuel Lee MD [address] [place], [place] [phone] Marianna Aguilar, LEANDRO [facility] Start: 06-29-2022 End: 06-29-2022 Follow-up encounter 06/29/2022 Follow Up Visit HOT MAN Lemuel Lee MD [address] [place] [address] [facility] Start: 06-25-2022 End: 06-25-2022 Follow-up encounter 06/25/2022 Follow Up Visit HOT MAN Josse Walter MD [address] [place] [address] Lemuel Lee MD [address] [place] [address] [facility] Start: 06-18-2022 End: 06-18-2022 Follow-up encounter 06/18/2022 Follow Up Visit HOT MAN Lemuel Lee MD [address] [place] [phone] [facility] Start: 06-18-2022 End: 06-18-2022 Patient encounter procedure 06/18/2022 Appointment Ultrasound Lemuel Lee MD [address] [place] [address], [place] [address] [facility] Start: 06-17-2022 End: 06-17-2022 Nutrition therapy 06/17/2022 Nutrition Nutrition Татьяна Villegas RN [facility] Start: 06-11-2022 End: 06-11-2022 Follow-up encounter 06/11/2022 Follow Up Visit HOT MAN Josse Walter MD [address] [facility] [address] [place] [address], [place] [phone] [facility] Start: 06-03-2022 End: 06-03-2022 Patient encounter procedure 06/03/2022 Appointment Ultrasound Tristan Samuel MD [address] [place] [address] Lemuel Lee MD [address] [facility] [address] [place] [phone] [facility] Start: 05-28-2022 End: 05-28-2022 Follow-up encounter 05/28/2022 Follow Up Visit HOT MAN Lemuel Lee MD [address] [place] [address], [place] [phone] [facility] Start: 05-14-2022 Influenza vaccination [facility] Sy[facility] m Start: 04-30-2022 End: 04-30-2022 Follow-up encounter 04/30/2022 Follow Up Visit HOT MAN Lemuel Lee MD [address] [place] [address] [facility] Start: 04-30-2022 End: 04-30-2022 Patient encounter procedure 04/30/2022 Appointment Ultrasound Josse Walter MD [address] [place] [address], [place] [address] [facility] Start: 04-09-2022 End: 04-09-2022 Follow-up encounter 04/09/2022 Follow Up Visit HOT MAN Josse Walter MD [address] [place] [address] [facility] Start: 04-09-2022 End: 04-09-2022 Patient encounter procedure 04/09/2022 Appointment Ultrasound Lemuel Lee MD [address] [place] [address], [place] [address] [facility] Start: 03-12-2022 End: 03-12-2022 Follow-up encounter 03/12/2022 Follow Up Visit HOT MAN Lemuel Lee MD [address] [place] [address], [place] [address] [facility] Start: 03-12-2022 End: 03-12-2022 Patient encounter procedure 03/12/2022 Appointment Ultrasound Lemuel Lee MD [address] [place] [address], [place] [address] [facility] Start: 03-12-2022 End: 03-12-2023 [id number] [Presence] in Serum or Plasma [facility] Comment on above: Expected: 03/12/2022, Expires: Start: 2022 Vaccination for human papillomavirus HPV Vaccines (1 - 3-dose SCDM series) [facility] Start: 01-26-2022 End: 01-26-2022 Follow-up encounter 01/26/2022 Follow Up Visit HOT MAN Josse Walter MD [address] [place] [address] [facility] Start: 01-26-2022 End: 01-26-2022 Patient encounter procedure 01/26/2022 Appointment Ultrasound Josse Walter MD [address] [place] [address] [facility] Start: 01-09-2022 End: 01-09-2023 Bacteria identified in Urine by Culture [facility] Comment on above: Expected: 01/09/2022, Expires: 3 Start: 01-09-2022 End: 01-09-2022 Clinical Support Encounter 01/09/2022 Clinical Support Encounter HOT MAN [facility] Start: 01-09-2022 End: 01-09-2023 HEPATITIS B SURFACE ANTIGEN [facility] Work Phone: Comment on above: Expected: 01/09/2022, Expires: 3 Start: 01-09-2022 End: 01-09-2023 OB ultrasound panel US OB DATING ABDOMINAL < 14WEEKS Imaging Routine 8 weeks gestation of Expected: 01/09/2022, Expires: 01/09/2023 [facility] Comment on above: Expected: 01/09/2022, Expires: 3 Start: 01-09-2022 End: 01-09-2023 RPR WITH FTA REFLEX [facility] Comment on above: Expected: 01/09/2022, Expires: 3 Start: 01-09-2022 End: 01-09-2023 RUBELLA IMMUNE STATUS IGG ANTIBODY [facility] Comment on above: Expected: 01/09/2022, Expires: 3 Start: 01-09-2022 End: 01-09-2023 VARICELLA IGG AB (IMM STATUS) [facility] Comment on above: Expected: 01/09/2022, Expires: 3 Start: 05-14-2021 Influenza vaccination INFLUENZA VACCINE (#1) [facility] Start: 09-25-2020 Depression screening using PHQ-9 (Patient Health Questionnaire 9) score [facility] Start: 09-25-2020 Tetanus vaccination [facility] Comment on above: Postponed from 1995 (Patient Refus ed) Start: 07-14-2020 Screening for malignant neoplasm of cervix PAP SMEAR [facility] Start: 01-11-2020 End: 01-11-2020 Office Visit 01/11/2020 Office Visit Primary Care Татьяна Brooke, LATHE SCALPER OPERATOR [address] [place] [address] [phone] [facility] Start: 09-25-2019 End: 09-25-2020 Plasma dehydroepiandrosterone sulfate level DHEA-Sulfate Lab Add-On Weight gain Expected: 09/25/2019, Expires: 09/25/2020 [facility] Comment on above: Expected: 09/25/2019, Expires: 1 Start: 09-25-2019 End: 09-25-2020 Testosterone [Mass/Vol] Testosterone, Total Lab Add-On Weight gain Expected: 09/25/2019, Expires: 09/25/2020 [facility] Comment on above: Expected: 09/25/2019, Expires: 1 Start: 07-14-2018 Screening for Chlamydia trachomatis Chlamydia Screening [facility] Start: 05-14-2018 Influenza vaccination SEQUENTIAL INFLUENZA VACCINE (Season Ended) [facility] Start: 2017 DTaP/Tdap/Td Vaccines (2 - Tdap) DTaP/Tdap/Td Vaccines (2 - Tdap) [facility] Start: 02-10-2016 Screening for malignant neoplasm of cervix [facility] Start: 2014 Hepatitis B vaccination [facility] Start: 2014 Hepatitis B Vaccines (1 of 3 - 19+ 3-dose series) Hepatitis B Vaccines (1 of 3 - 19+ 3-dose series) [facility] Start: 2014 Third diphtheria, tetanus and acellular pertussis (DTaP) vaccination TDAP (ADULT) [facility] Start: 2014 Vaccination for diphtheria, pertussis, and tetanus Tetanus/Diphtheria/Pe rtussis (2 - Tdap) [facility] Start: 2013 Hepatitis C screening Hepatitis C Screening [facility] Start: 2013 Tetanus vaccination TETANUS [facility] Start: 2011 Screening for Chlamydia trachomatis CHLAMYDIA SCREEN [facility] Start: 2010 HIV screening [facility] Start: 02-10-2008 Varicella vaccination Varicella Vaccines (1 of 2 - 13+ 2-dose series) [facility] Start: 2006 Vaccination for human papillomavirus [facility] Start: 02-10-2000 COVID-19 VACCINE (#1) COVID-19 VACCINE (#1) [facility] Start: 02-10-2000 COVID-19 VACCINE (1) COVID-19 VACCINE (1) [facility] Start: 1998 History and physical examination, annual for health maintenance Wellness Visit [facility] Start: 1995 COVID-19 VACCINE (#1) COVID-19 VACCINE (#1) [facility] tem Start: 1995 Fasting lipid profile Lipid Panel [facility] Start: 1995 GONORRHEA SCREEN GONORRHEA SCREEN [facility] Start: 1995 Hepatitis B vaccination HEP B VACCINE (1 of 3 - 3-dose series) [facility] Start: 1995 Hepatitis C antibody, confirmatory test HEPATITIS C VIRUS SCREENING [facility] Start: 1995 Hepatitis C screening HEPATITIS C VIRUS SCREENING [facility] Start: 1995 Lipid panel Lipid Panel [facility] Start: 1995 Screening for malignant neoplasm of cervix PAP SMEAR [facility] Start: 1995 Tetanus vaccination [facility] Start: 1995 Yearly Adult Physical Yearly Adult Physical [facility] End: 04-06-2025 B12/Folate B12/Folate Lab Routine Chronic fatigue 1 Occurrences starting 04/06/2024 until 04/06/2025 [facility] Comment on above: 1 Occurrences starting 04/06/2024 until 04/06/2025 Bacteria identified in Urine by Culture URINE CULTURE Microbiology Today Dysuria 02/02/2022 4:48 PM EDT [facility] CBC W Auto Different ial panel - Blood [facility] CBC W Auto Different ial panel - Blood [facility] End: 04-06-2025 Complete blood count with white cell differential, manual CBC and Differential Lab Routine Chronic fatigue 1 Occurrences starting 04/06/2024 until 04/06/2025 [facility] Comment on above: 1 Occurrences starting 04/06/2024 until 04/06/2025 End: 01-21-2019 Comprehensive metabolic panel [AGGREGATE] Comprehensive Metabolic Panel Routine Weight gain 1 Occurrences starting 01/21/2018 until 01/21/2019 [facility] End: 01-29-2021 Free T3 [Mass/Vol] T3, Free Lab Routine Weight gain 1 Occurrences starting 01/30/2020 until 01/29/2021 [facility] Comment on above: 1 Occurrences starting 01/30/2020 until 01/29/2021 Free T3 [Mass/Vol] T3, Free Lab Routine Weight gain 01/30/2020 8:29 AM EDT [facility] Hemoglobin A1c/Hemoglobin.total in Blood [facility] Hepatitis C antibody measurement [facility] End: 09-25-2020 Insulin Qn Insulin, Total Lab Routine Weight gain 1 Occurrences starting 09/25/2019 until 09/25/2020 [facility] Comment on above: 1 Occurrences starting 09/25/2019 until 09/25/2020 Insulin Qn Insulin, Total L ab Routine Weight gain 09/25/2019 5:50 PM EST [facility] End: 04-06-2025 Iron measurement Iron Study with Ferritin Lab Routine Chronic fatigue 1 Occurrences starting 04/06/2024 until 04/06/2025 [facility] Work Phone: Comment on above: 1 Occurrences starting 04/06/2024 until 04/06/2025 Measurement of gluco se 2 hours after glucose challenge for glucose tolerance test [facility] PAP IG, RFX HPV ASCU PAP IG, RFX HPV ASCU Cytology Routine 10/26/2023 4:00 PM [facility] Plasma dehydroepiand rosterone sulfate level DHEA-Sulfate Lab Add-On Weight gain 09/25/2019 5:50 PM EST [facility] [place] NON-STRESS TEST [place] FETA L NON-STRESS TEST [place] Charge Routine Decreased movements in second trimester, single or unspecified fetus Ordered: 05/22/2022 [facility] Comment on above: Ordered: 05/22/2022 Procedure [facility] End: 11-24-2022 PROGESTERONE PROGESTERONE Lab Routine Infertility associated with anovulation 6 Occurrences starting 11/24/2021 until 11/24/2022 [facility] Comment on above: 6 Occurrences starting 11/24/2021 until 11/24/2022 Rubella IgG measurement [facility] Serologic test for syphilis [facility] Serologic test for syphilis [facility] Testosterone [Mass/Vol] Testoste harriett Total Lab Add-On Weight gain 09/25/2019 5:50 PM EST [facility] End: 01-21-2019 TSH TSH Routine Weight gain 1 Occurrences starting 01/21/2018 until 01/21/2019 [facility] Ultrasound scan for growth [facility] End: 04-30-2022 US OB LIMITED/AMNIOTIC FLUID [facility] Work Phone: Comment on above: 1 Occurrences starting 04/30/2022 until 04/30/2022 [facility] Immunizations Immunization Date Immunization Notes Care Provider Fa [facility] 08-11-2022 varicella zoster imm une globulin Lemuel Lee MD Work Phone: [facility] 08-11-2022 measles, mumps and rubella virus vaccine Lemuel Lee MD Work Phone: [facility] 06-15-2019 influenza, injectabl e, quadrivalent, preservative free [facility] 06-15-2019 influenza virus vaccine, unspecified formulation Lemuel Lee MD Work Phone: [facility] 11-27-1999 diphtheria, tetanus toxoids and acellular pertussis vaccine, unspecified formulation [facility] 11-27-1999 measles, mumps and rubella virus vaccine [facility] Payers Date Payer Category Payer Self-pay 2021 [facility] Member Subscriber Plan / Payer (Effective 2021-Present) Name: Drake Petty Relation to Subscriber: Self Name: Drake Petty Payer ID: [id number] (NAIC) Type: Not on file Address: [address] [address] [place] [phone] 2019 Blue [employer] Blue [employer] ANTHEM BL UE/PREF/HMO/PPO Member Subscriber Plan / Payer (Effective 2019-Present) Name: Drake Petty Relation to Subscriber: Self Name: Drake Petty Payer ID: [id number] (NAIC) Type: Not on file Address: [address] [place] [phone] 2019 Unknown ANTHEM ANTHEM BLUE/PREF/HMO/PPO xxxxxxxxxxxx 2019-Present [id number] [id number]. [id number] 2019 Unknown 1.2.840.069307. 1.13.172.2. 7.3.649250.315 2019 Unknown [id number] 2017 Unknown [id number] 1995 Unknown [id number] 2.16.840.1.795152.3.579.2. 900 1995 Unknown [id number] 2.16840.1.529090.3.579.2. 1068 1995 Unknown [id number] 2.16.840.1.743526.3.579.2. 1068 1995 Unknown [id number] 2.16.840.1.910104.3.579.2. 983 1995 Unknown [id number] 2.16.840.1.912952.3.579.2. 98 1995 Unknown [id number] 2.16.840.1.332113.3.579.2. 98 1995 Unknown [id number] 2.16.840.1.283612.3.579.2. 98 1995 Unknown [id number] 2.16.840.1.936928.3.579.2. 98 1995 Unknown [id number] 2.16840.1.380199.3.579.2. 98 1995 Unknown [id number] 2.16840.1.108181.3.579.2. 98 1995 Unknown [id number] 2.16840.1.685227.3.579.2 1995 Unknown [id number] 2.16840.1.451504.3.579.2. 1995 Unknown [id number] 2.16840.1.703681.3.579.2 1995 Unknown [id number] 2.16840.1.549843.3.579.2 1995 Unknown [id number] 2.16840.1.211821.3.579.2. 1243 1995 Unknown [id number] 2.16840.1.742435.3.579.2 47 1995 Unknown [id number] 2.16840.1.732918.3.579.2 47 1995 Unknown [id number] 2.16840.1.887055.3.579.2. 1995 Unknown [id number] 2.16840.1.392690.3.579.2 1995 Unknown [id number] 2.16840.1.065409.3.579.2 1995 Unknown [id number] 2.16840.1.140314.3.579.2. 903 1995 Unknown [id number] 2.840.1.224361.3.579.2. 903 1995 Unknown [id number] 2.840.1.041563.3.579.2. 903 1995 Unknown [id number] 2.840.1.916813.3.579.2. 90 1995 Unknown [id number] 2.840.1.594282.3.579.2. 903 Unknown [id number] 2.840.1.149155.3.579.2. 462 Unknown [id number] 2.840.1.555881.3.579.2. 462 Unknown [id number] 2.0.1.996448.3.579.2. 462 Unknown [id number] 2.0.1.834896.3.579.2. 462 Unknown [id number] 2.840.1.311692.3.579.2. 462 Unknown [id number] 2.0.1.326451.3.579.2. 462 Unknown [id number] 2.840.1.737566.3.579.2. 462 Unknown [id number] 2.0.1.949256.3.579.2. 462 Unknown [id number] 2.840.1.861416.3.579.2. 462 Unknown [id number] .840.1.235825.3.579.2. 462 Unknown [id number] 2.840.1.969935.3.579.2. 462 Unknown [id number] 2.840.1.656373.3.579.2. 462 Unknown [id number] 2.840.1.385266.3.579.2. 462 Unknown [id number] 2.16.840.1.583595.3.579.2. 462 Unknown [id number] 2.16.840.1.167673.3.579.2. 462 Unknown [id number] 2.16.840.1.573484.3.579.2. 462 Unknown [id number] 2.16.840.1.396677.3.579.2. 462 Unknown [id number] 2.16.840.1.853338.3.579.2. 462 Unknown [id number] 2.16.840.1.895193.3.579.2. 462 Social History Date Type Detail Facility Start: 01-21-2018 End: 01-11-2025 Tobacco smoking status NHIS Never smoker [facility] Start: 1995 Sex Assigned At Not on file [facility] Start: 09-25-2019 End: 06-26-2025 Alcohol intake Current drinker of alcohol (finding) [facility] Start: 09-25-2019 End: 11-24-2021 History SDOH Alcohol Frequency 3 [facility] Start: 09-25-2019 End: 11-24-2021 History SDOH Alcohol Std Drinks 1 [facility] Start: 01-29-2020 End: 06-17-2022 History SDOH Social Connections Get Together 4 [facility] Start: 11-14-2021 End: 11-09-2024 Exposure to SARS-CoV-2 (event) Not sure [facility] Start: 04-21-2017 End: 06-17-2022 Tobacco use and exposure Smokeless tobacco non-user [facility] Start: 11-24-2021 End: 09-29-2023 Alcohol intake Ex-drinker (finding) [facility] Start: 11-24-2021 End: 06-17-2022 History SDOH Alcohol Std Drinks 0 [facility] Start: 11-24-2021 End: 06-17-2022 History SDOH Social Connections Phone 2 [facility] Start: 11-24-2021 End: 07-21-2022 History SDOH Financial 5 [facility] Start: 11-22-2021 [facility] Start: 06-17-2022 Education 17 [facility] Tobacco smoking consumption unknown [facility] Start: 06-17-2022 End: 07-21-2023 History of Social function [facility] Start: 06-17-2022 End: 07-21-2023 Humiliation, Afraid, Rape, and Kick questionnaire [HARK] [facility] Within the last year , have you been afraid of your partner or ex-partner? No [facility] Are you now , , , , never or living with a partner? [facility] How often to you hav e a drink containing alcohol? Never [facility] How many standard drinks containing alcohol do you have on a typical day? Patient does not drink [facility] Do you feel stress - tense, restless, nervous, or anxious, or unable to sleep at night because your mind is troubled all the time - these days [OSQ] To some extent [facility] (I/We) worried wheth er (my/our) food would run out before (I/we) got money to buy more. Never true [facility] Start: 04-21-2017 Gender identity Identifies as female gender (finding) [facility] Start: 01-31-2019 Sexual orientation Heterosexual (fin ding) [facility] Do you feel stress - tense, restless, nervous, or anxious, or unable to sleep at night because your mind is troubled all the time - these days [OSQ] Not at all [facility] Start: 10-26-2023 Alcohol Comment consumes occassional ly [facility] Start: 03-06-2024 Alcohol Comment occasional [facility] Start: 1995 Sex Assigned At Female [facility] NEGATED: Highlighted rowStart: CLEM History of tobacco use Passive smoker [employer] [facility] Medical Equipment Procedure Code Equipment Code Equipment Origin al Text Equipment Identifier Dates Droplet Pen Need les 32G X 4 MM Misc [id number] Start: 11-03-[address] to check fasting BS every morning and then two hours after each meal. [id number] Start: 06-11-2022 End: 08-13-[address] to check BS every morning and then two hours after each meal. [id number] Start: 06-11-[address] TO CHECK FASTING BLOOD SUGAR EVERY MORNING AND THEN TWO HOURS AFTER EACH MEAL [id number] Start: 07-02-2022 End: 09-01-2023 Blood Sugar Diagnostic (Onetouch Ultra Test) strip Start: 06-18-2025 Lancets misc Start: 06-18-2025 Goals Date Patient Goal Desired Activity /State Personal health goal Personal health goal Clinical Notes 11-24-2021 to 06-26-2025 Note Date & Type Note Facility 06-26-2025 Note BEHAVIORAL HEALTH PS YCHIATRIC PROGRESS NOTE 06/26/2025 Drake Petty, a 30 y.o. female, here for psychotropic medication management follow-up Patient is referred by Keyla Meneses CNP Interval History: Patient is here for follow-up visit. She is 30 weeks gestation. Patient is doing well. Mood stability is maintained. Patient reports apart from minor emotional lability some days she is doing well. She denies any pervasive depressed mood or pervasive irritability. Denies any racing thoughts or flight of ideas. Motor activity is within normal limits. Speech is normal rate tone and rhythm. Denies ongoing suicidal anxiety. 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 Energy and motivation is fair. We again discussed the pros and cons of being [...] continue this medications while she is . Medications assessed: Patient remains compliant. Good response Breast-feeding data discussed with the mother that is available on up to date: She would like to breast-feed and it was advised to stop Lamictal couple of weeks prior to delivery Goals and objectives of treatment: Maintain mood stability Patient compliance PFSH: Past Medical History: Diagnosis Date ADHD [...] episodic mood disorder Rule out bipolar 2 disorder 30 weeks gestation Recommendations: Treatment Plan: Pharmacological management: [...] Other Referrals/Consults/Psychological Testing: none Anna Fuentes MD AUTHENTICATED BY ANNA FUENTES, ON 06/26/2025 14:42:03 [facility] 06-25-2025 Progress note [facility] 06-25-2025 Progress note Note Date/Time June 25, 2025 3:43pm [facility] [address] [place] [address], [address] [place] [address] OFFICE VISIT Date of Service: 06/25/25 MR#: [id number] Acct: [id number] Name: DRAKE PETTY Rep #: [id number] : 1995 Provider: BRET Ruff Age/Sex: 30/F [place] [facility] [place]: Signed Intake Vital Signs 04/27/25 11:42 06/13/25 15:26 06/25/25 15:16 Height 5 ft 4 in 5 ft 4 in 5 ft 4 in Weight: 185 lb 183 lb 6 oz BMI 31.7 31.4 BP 101/67 108/74 Intake Visit Reasons: 30 WK OB Chief Complaint: 30wk OB Inspector Canvas Products Required: No Is patient in pain?: No Allergies No Known Allergies Allergy (Verified 06/25/25 15:14) Medications ?Medication ?Instructions ?Recorded ?Confirmed ?Type lamotrigine 200 mg tablet 200 mg PO QDAY 01/02/2506/13 History PNV 153-FA 400 mcg-om3 35 mg-dha tab PO 01/11/2506/25 History 25 mg-epa 5 mg-fish oil chew tablet famotidine 20 mg tablet (Pepcid) 20 mg PO BID #60 tabs 06/13/25 06/25/25 Rx alcohol swabs (Alcohol Wipes) 200 pad topical .prn #20 0 ea 06/18/25 06/25/25 Rx blood sugar diagnostic (OneTouch #100 ea 06/18/2506/13 Rx Ultra Test strips) lancets #200 ea 06/18/25 06/25/25 Rx Last Menstrual Period: 11/09/24 : No Have you fallen in the past year?: No PFSH PFSH Medical History Depression with anxiety PCOS (polycystic ovarian syndrome) Surgical History S/P wrist surgery S/P left knee surgery Family History Father Hypertension Mother Depression with anxiety Grandmother Diabetes Maternal Skin cancer, Onset Age: 75 Maternal Grandfather Diabetes Maternal Grandmother Diabetes Paternal Social History adopted: No household members: spouse and children housing: house number of children: 1 current occupational status: employed 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 Date Name GA/Weeks Outcome Route Bth Weight Infant Gen [facility] live - full term forceps 6#10oz Male epidural [facility] Josue Delivery Date: 08/11/22 Last Updated by: Joslyn Gregory IOL, GDM HPI 30 WK OB Details: DRAKE PETTY is a 30 year old who presents for routine OB visit. OB Visit ASHLEE Calculator Estimated Delivery Date Method Current WG Current Estimate 09/04/25 Ultrasound #1 29w 6d Other Estimates 08/16/25 LMP (Certain) 32w 4d Expected Delivery Route/Plan Labor Preferences- CB/BF classes: no labor support person: Josue labor intervention preferences: [] pain management options preferred: limited but ok if requested epidural cut cord/dad catch: cord : yes PP control planned: discussed discussed possible routes of delivery and associated risks: [] special requests: [] Specific Issue/Plans Covid status: [] Flu vaccine: [] Tdap vaccine: [] Rhogam:NA LARC form signed: yes Problem list reviewed and updated with the most current plan of care details and appropriate orders placed. Relevant counseling for the gestational age provided. Continue routine care and follow up unless otherwise noted in visit notes/problem list details Initial Weight: 162 lb Date -?-?-?-?-?-?-?-?-?-?-?-?- EGA Weight BP Urine Prot -?-?-?-?-?-?-?-?-?-?-?-?- Glucose FHR FuHt Pres Dilation -?-?-?-?-?-?-?-?-?-?-?-?- Effaced St Visit Note 01/18/25 -?-?-?-?-?-?-?-?-?-?-?-?- 7w 2d 162 lb 2 oz (+2 oz) 122/79 -?-?-?-?-?-?-?-?-?-?-?-?- 151 -?-?-?-?-?-?-?-?-?-?-?-?- KW-CRL not cons with dates. ASHLEE changed. will plan NOB labs next visit. 03/01/25 -?-?-?-?-?-?-?-?-?-?-?-?- 13w 2d 166 lb (+4 lb) 111/70 Negative -?-?-?-?-?-?-?-?-?-?-?-?- Negative 158 -?-?-?-?-?-?-?-?-?-?-?-?- JV- no lof, vagi nal bleeding, or cramping. NIPT and new ob labs to be done today. 03/30/25 -?-?-?-?-?-?-?-?-?-?-?-?- 17w 3d 169 lb 4 oz (+7 lb 4 oz) 116/72 Negative -?-?-?-?-?-?-?-?-?-?-?-?- Negative 145 -?-?-?-?-?-?-?-?-?-?-?-?- SM- no vb lof cr amping 04/27/25 -?-?-?-?-?-?-?-?-?-?-?-?- 21w 3d 177 lb 7 oz (+15 lb 7 oz) 105/69 Negative -?-?-?-?-?-?-?-?-?-?-?-?- Negative 140 21 -?-?-?-?-?-?-?-?-?-?-?-?- KW- no vb/joanna banks. scheduled for low lying placenta. 05/22/25 -?-?-?-?-?-?-?-?-?-?-?-?- 25w 0d 184 lb 5 oz (+22 lb 5 oz) 115/75 Negative -?-?-?-?-?-?-?-?-?-?-?-?- Negative 158 25 -?-?-?-?-?-?-?-?-?-?-?-?- MH-No VB, LOF. [facility] Larc 06/13/25 -?-?-?-?-?-?-?-?-?-?-?-?- 28w 1d 185 lb (+23 lb) 101/67 Negative -?-?-?-?-?-?-?-?-?-?-?-?- Negative 145 29 -?-?-?-?-?-?-?-?-?-?-?-?- JV- placenta no longer low lying. discussed tdap, flu, rsv. going to decide. JV- placenta no longer low l nick. discussed tdap, flu, rsv. going to decide. She also wants to go straight to glucose testing if the one hour is abnormal. 06/25/25 -?-?-?-?-?-?-?-?-?-?-?-?- 29w 6d 183 lb 6 oz (+21 lb 6 oz) 108/74 Negative -?-?-?-?-?-?-?-?-?-?-?-?- Negative 130 31 -?-?-?-?-?-?-?-?-?-?-?-?- KW- no vb/lof/ct x. good fm. reviewed blood sugars and fastings are 100-115. PP numbers are 130-150. watching carbs and has info from last -GDM. will start Metformin 500mg. discussed nsts and growth US. KW- no vb/lof/ctx. good fm. reviewed blood sugars and fastings are 100-115. PP numbers are 130-150. watching carbs and has info from last -GDM. will start Metformin 500mg. discussed nsts and growth US. declines flu shot. would like tdap next visit. will get RSV at a pharmacy ACOG First Trimester First Trimester: Desire for , Alcohol, Tobacco Cessation, Illicit/Recreational Drug/Substance Use, Intimate Partner Violence, Barriers to care, Unstable Housing, Communication Barriers, Environmental/Work Hazards, Anticipated Course of Care, Toxoplasmosis Precations, Use of Any medications, Sexual activity, Exercise, Dental Care, Sauna/Hot tub use, Seat Belt use, Childbirth classes/Hospital facilities, Travel, Indications for Ultrasound and Screening for Aneuploidy; Discussed Second Trimester Second Trimester: Signs and Symptoms of Labor, Selecting a care provider, Reproductive Life Planning & Contreception, Care Planning, Depression/Anxiety and Intimate Partner Violence; Discussed Tobacco Cessation Third Trimester Third Trimester: Pain Management Plans, Labor support person(s), Immediate Larc, Signs and Symptoms of Preeclampsia, Feeding No , Bertrand Education and Family Medical Leave or Disability Forms ROS Const Reports system reviewed and no additional complaints, except as documented Eyes Reports system reviewed and no additional complaints, except as documented ENT Reports system reviewed and no additional complaints, except as documented Card Reports system reviewed and no additional complaints, except as documented Resp Reports system reviewed and no additional complaints, except as documented GI Reports system reviewed and no additional complaints, except as documented, Denies nausea and Denies vomiting Reports system reviewed and no additional complaints, except as documented Musc Reports system reviewed and no additional complaints, except as documented Skin/Breast Reports system reviewed and no additional complaints, except as documented Neuro Yes system reviewed and no additional complaints, except as documented Psych Reports system reviewed and no additional complaints, except as documented Endo Reports system reviewed and no additional complaints, except as documented Bucky/Lymph Reports system reviewed and no additional complaints, except as documented Aller/Immun Reports system reviewed and no additional complaints, except as documented Exam Const General: cooperative, healthy appearing and no acute distress Orientation: alert, awake and oriented x3 Neck Neck: normal visual inspection and full ROM Resp Effort & Inspection: normal respiratory effort, able to speak in complete sentences and symmetric chest movement GI Inspection: normal to inspection Palpation: soft and other Other: gravid Skin General: no rashes or lesions noted Neuro General: patient alert, patient awake and patient oriented x3 Cognition: normal cognition Speech: speech normal Gait: normal gait Motor: muscle tone normal throughout Extrem General: normal to inspection and full ROM Psych Appearance: grossly normal Mental Status: mental status grossly normal Mood: congruent mood Affect: normal affect Speech and Movement: speech and movement normal Attitude: cooperative Thought Process: normal Thought Content: normal Judgment: judgment good Results POC Urinalysis 2 Dip (Clinic) Office Urine Glucose Negative Last Edit by Ping Engel on 06/25/25 15:23 Office Urine Protein Negative Last Edit by Ping Engel on 06/25/25 15:23 Coding Level of Care Code OB Routine Diagnoses Abnormal glucose affecting O99.810 Hx of forceps delivery in prior , currently O09.299 History of gestational diabetes mellitus (GDM) in prior , currently O09.299; Z86.32 29 weeks gestation of Z3A.29 Weeks of gestation: 29 weeks Supervision of high risk in second trimester O. Trimester: second trimester PCOS (polycystic ovarian syndrome) E28.2 Depression with anxiety F41.8 Gestational diabetes mellitus (GDM) affecting , antepartum O24.419 Assessment and Plan Assessment and Plan (1) Abnormal glucose affecting : Status: Deleted Comment: declines 3hr GTT, straight to testing; 36 wk growth US (2) Hx of forceps delivery in prior , currently : Status: Acute (3) History of gestational diabetes mellitus (GDM) in prior , currently : Status: Acute Comment: A1C (4) : Status: Acute Qualifiers: Weeks of gestation: 29 weeks Qualified Code(s): Z3A.29 - 29 weeks gestation of Comment: Panorama low risk, female. carrier neg. . ntd declined. (5) Supervision of high-risk : Status: Acute Qualifiers: Trimester: second trimester Qualified Code(s): O09.92 - Supervision of high risk , unspecified, second trimester Comment: PRR, , ASHLEE 09/04/25, girl SARITA Ellis, Josue (6) PCOS (polycystic ovarian syndrome): Status: Acute Comment: on metformin- sees jennifer in [place] . stopped at first visit. (7) Depression with anxiety: Status: Acute Comment: sees psychiatrist-Dr. Fuentes-Does not meet criteria for diagnosis of bipolar (8) Gestational diabetes mellitus (GDM) affecting , antepartum: Status: Acute Comment: metformin 500-NSTs and growth US at 32 and 36 weeks deliver at 39 Orders: Orders POC Urinalysis 2 Dip (Clinic) Today Plan Details Additional Comments: ACOG trimester education reviewed and updated. see problem list details for updated plan management information and see below for orders placed at this visit. GA appropriate handout given. Follow Up: 06/25/25 (needs twice weekly NSTs starting at 32 weeks ) Clinical Quality Measures Falls Risk Screening/Assistive Devices Have you fallen in the past year?: No 06/25/25 [id number] <Electronically signed by Nel wayne CNM> Date _ Nel Huffman Signature: Date (if applicable) CC: ~ [facility] Work Phone: [phone] 131-598810-01-2025 [facility] [facility] [address] [place] [address], [address] [place] [id number] OFFICE VISIT Date of Service: 06/13/25 MR#: [id number] Acct: [id number] Name: DARKE PETYT Luna Rep #: [id number] : 1995 Provider: Dr. Connie Contreras DO Age/Sex: 30/F [place] [facility] [place]: Signed Intake Vital Signs 03/30/25 13:58 05/22/25 15:35 06/13/25 15:26 Height 5 ft 4 in 5 ft 4 in 5 ft 4 in Weight: 185 lb BMI 31.7 BP 101/67 Intake Visit Reasons: 28wk ob/glucose Inspector Canvas Products Required: No Is patient in pain?: No Allergies No Known Allergies Allergy (Verified 06/13/25 15:27) Medications ?Medication ?Instructions ?Recorded ?Confirmed ?Type lamotrigine 200 mg tablet 200 mg PO QDAY 01/02/2510/07 History PNV 153-FA 400 mcg-om3 35 mg-dha tab PO 01/11/2506/13 History 25 mg-epa 5 mg-fish oil chew tablet famotidine 20 mg tablet (Pepcid) 20 mg PO BID #60 tabs 06/13/25 06/13/25 Rx Last Menstrual Period: 11/09/24 Zika: Zika virus screening: Negative : No Have you fallen in the past year?: No PFSH PFSH Medical History Depression with anxiety PCOS (polycystic ovarian syndrome) Surgical History S/P wrist surgery S/P left knee surgery Family History Father Hypertension Mother Depression with anxiety Grandmother Diabetes Maternal Skin cancer, Onset Age: 75 Maternal Grandfather Diabetes Maternal Grandmother Diabetes Paternal Social History adopted: No household members: spouse and children housing: house number of children: 1 current occupational status: employed 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 Date Name GA/Weeks Outcome Route Bth Weight Gen [facility] 08/11/22 [place] 38 live - full term forceps 6#10oz Male epidural [facility] Josue Delivery Date: 08/11/22 Last Updated by: Joslyn Gregory IOL, GDM HPI 28wk ob/glucose Details: DRAKE PETTY is a 30 year old who presents for routine OB visit. OB Visit ASHLEE Calculator Estimated Delivery Date Method Current WG Current Estimate 09/04/25 Ultrasound #1 28w 1d Other Estimates 08/16/25 LMP (Certain) 30w 6d Expected Delivery Route/Plan Labor Preferences- CB/BF classes: no labor support person: Josue labor intervention preferences: [] pain management options preferred: limited but ok if requested epidural cut cord/dad catch: cord : yes PP control planned: discussed discussed possible routes of delivery and associated risks: [] special requests: [] Specific Issue/Plans Covid status: [] Flu vaccine: [] Tdap vaccine: [] Rhogam:NA LARC form signed: yes Problem list reviewed and updated with the most current plan of care details and appropriate ordersplaced. Relevant counseling for the gestational age provided. Continue routine care and follow up unless otherwise noted in visit notes/problem list details Initial Weight: 162 lb Date -?-?-?-?-?-?-?-?-?-?-?-?- EGA Weight BP Urine Prot -?-?-?-?-?-?-?-?-?-?-?-?- Glucose FHR FuHt Pres Dilation -?-?-?-?-?-?-?-?-?-?-?-?- Effaced St Visit Note 01/18/25 -?-?-?-?-?-?-?-?-?-?-?-?- 7w 2d 162 lb 2 oz (+2 oz) 122/79 -?-?-?-?-?-?-?-?-?-?-?-?- 151 -?-?-?-?-?-?-?-?-?-?-?-?- KW-CRL not cons with dates. ASHLEE changed. will plan NOB labs next visit. 03/01/25 -?-?-?-?-?-?-?-?-?-?-?-?- 13w 2d 166 lb (+4 lb) 111/70 Negative -?-?-?-?-?-?-?-?-?-?-?-?- Negative 158 -?-?-?-?-?-?-?-?-?-?-?-?- JV- no lof, vagi nal bleeding, or cramping. NIPT and new ob labs to be done today. 03/30/25 -?-?-?-?-?-?-?-?-?-?-?-?- 17w 3d 169 lb 4 oz (+7 lb 4 oz) 116/72 Negative -?-?-?-?-?-?-?-?-?-?-?-?- Negative 145 -?-?-?-?-?-?-?-?-?-?-?-?- SM- no vb lof cr amping 04/27/25 -?-?-?-?-?-?-?-?-?-?-?-?- 21w 3d 177 lb 7 oz (+15 lb 7 oz) 105/69 Negative -?-?-?-?-?-?-?-?-?-?-?-?- Negative 140 21 -?-?-?-?-?-?-?-?-?-?-?-?- KW- no vb/crampi ng. US scheduled for low lying placenta. 05/22/25 -?-?-?-?-?-?-?-?-?-?-?-?- 25w 0d 184 lb 5 oz (+22 lb 5 oz) 115/75 Negative -?-?-?-?-?-?-?-?-?-?-?-?- Negative 158 25 -?-?-?-?-?-?-?-?-?-?-?-?- MH-No VB, LOF. G ood FM. Rpt MFM US 06/13/25. Larc 06/13/25 -?-?-?-?-?-?-?-?-?-?-?-?- 28w 1d 185 lb (+23 lb) 101/67 Negative -?-?-?-?-?-?-?-?-?-?-?-?- Negative 145 29 -?-?-?-?-?-?-?-?-?-?-?-?- JV- placenta no longer low lying. discussed tdap, flu, rsv. going to decide. JV- placenta no longer low era romero. discussed tdap, flu, rsv. going to decide. She also wants to go straight to glucose testing if the one hour is abnormal. ACOG First Trimester First Trimester: Desire for , Alcohol, Tobacco Cessation, Illicit/Recreational Drug/Substance Use, Intimate Partner Violence, Barriers to care, Unstable Housing, Communication Barriers, Environmental/Work Hazards, Anticipated Course of Care, Toxoplasmosis Precations, Use of Any med ications, Sexual activity, Exercise, Dental Care, Sauna/Hot tub use, Seat Belt use, Childbirth classes/Hospital facilities, Travel, Indications for Ultrasound and Screening for Aneuploidy; Discussed Second Trimester Second Trimester: Signs and Symptoms of Labor, Selecting a care provider, Reproductive Life Planning & Contreception, Care Planning, Depression/Anxiety and Intimate Partner Violence; Discussed Tobacco Cessation Third Trimester Third Trimester: Pain Management Plans, Labor support person(s), Immediate Larc, Signs and Symptoms of Preeclampsia, Feeding No , Bertrand Education and Family Medical Leave or Disability Forms Results POC Urinalysis 2 Dip (Clinic) Office Urine Glucose Negative Last Edit by Nicole Laboy on 06/13/25 15:40 Office Urine Protein Negative Last Edit by Nicole Laboy on 06/13/25 15:40 Coding Level of Care Code OB Routine Diagnoses Low lying placenta, antepartum O44.40 Hx of forceps delivery in prior , currently O09.299 History of gestational diabetes mellitus (GDM) in prior , currently O09.299; Z86.32 25 weeks gestation of Z3A.25 Weeks of gestation: 25 weeks Supervision of high risk in second trimester O09.92 Trimester: second trimester PCOS (polycystic ovarian syndrome) E28.2 Depression with anxiety F41.8 Assessment and Plan Assessment and Plan (1) Low lying placenta, antepartum: Status: Resolved Comment: follow up 28 weeks (2) Hx of forceps delivery in prior , currently : Status: Acute (3) History of gestational diabetes mellitus (GDM) in prior , currently : Status: Acute Comment: A1C (4) : Status: Acute Qualifiers: Weeks of gestation: 25 weeks Qualified Code(s): Z3A.25 - 25 weeks gestation of Comment: Panorama low risk, female. carrier neg. . ntd declined. (5) Supervision of high-risk : Status: Acute Qualifiers: Trimester: second trimester Qualified Code(s): O09.92 - Supervision of high risk , unspecified, second trimester Comment: PRR, , ASHLEE 09/04/25, girl SARITA Ellis, Josue (6) PCOS (polycystic ovarian syndrome): Status: Acute Comment: on metformin- sees jennifer in [place] . stopped at first visit. (7) Depression with anxiety: Status: Acute Comment: sees psychiatrist-Dr. Fuentes-Does not meet criteria for diagnosis of bipolar Orders: Orders POC Urinalysis 2 Dip (Clinic) Today Medications: New famotidine (Pepcid) 20 mg PO BID 60 tabs 4RF Clinical Quality Measures Falls Risk Screening/Assistive Devices Have you fallen in the past year?: No 06/13/25 1554 meseret Espinoza DO> Date _ [facility] Contreras [facility] Signature: Date (if applicable) CC: ~ [facility]10-01-2025 Progress note Author Emmanuelle Espinoza [facility] Note Date/Time June 13, 2025 3: 53pm [facility] [address], [address] [place] [address] OFFICE VISIT Date of Service: 06/13/25 MR#: [id number] Acct: [id number] Name: DRAKE PETTY Rep #: [id number] : 1995 Provider: Dr. 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 Canvas Products Required: No Is patient in pain?: No Allergies No Known Allergies Allergy (Verified 06/13/25 15:27) Medications ?Medication ?Instructions ?Recorded ?Confirmed ?Type lamotrigine 200 mg tablet 200 mg PO QDAY 01/02/2510/07 History PNV 153-FA 400 mcg-om3 35 mg-dha tab PO 01/11/2506/13 History 25 mg-epa 5 mg-fish oil chew tablet famotidine 20 mg tablet (Pepcid) 20 mg PO BID #60 tabs 06/13/25 06/13/25 Rx Last Menstrual Period: 11/09/24 Zika: Zika virus screening: Negative : No Have you fallen in the past year?: No PFSH PFSH Medical History Depression with anxiety PCOS (polycystic ovarian syndrome) Surgical History S/P wrist surgery S/P left knee surgery Family History Father Hypertension Mother Depression with anxiety Grandmother Diabetes Maternal Skin cancer, Onset Age: 75 Maternal Grandfather Diabetes Maternal Grandmother Diabetes Paternal Social History adopted: No household members: spouse and children housing: house number of children: 1 current occupational status: employed current occupation: FT[employer] current occupational exposures/hazards: No pets and animals: No history of recent travel: Yes ([place]- December) out of state: Yes out of [...] 5-6 times per week duration: 45-60 minutes/day carolann/gnosticist: None seatbelt use: always do you feel safe at home: Yes 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 Date Name GA/Weeks Outcome Route Bth Weight Gen Labor Lgth Anesthesia Del Locatn Provider FOB 08/11/22 [place] 38 live - full term forceps 6#10oz Male epidural [facility] Josue Delivery Date: 08/11/22 Last Updated by: Joslyn Gregory IOL, GDM HPI 28wk ob/glucose Details: DRAKE PETTY is a 30 year old who presents for routine OB visit. OB Visit ASHLEE Calculator Estimated Delivery Date Method Current WG Current Estimate 09/04/25 Ultrasound #1 28w 1d Other Estimates 08/16/25 LMP (Certain) 30w 6d Expected Delivery Route/Plan Labor Preferences- CB/BF classes: no labor support person: Josue labor intervention preferences: [] pain management options preferred: limited but ok if requested epidural cut cord/dad catch: cord : yes PP control planned: discussed discussed possible routes of delivery and associated risks: [] special requests: [] Specific Issue/Plans Covid status: [] Flu vaccine: [] Tdap vaccine: [] Rhogam:NA LARC form signed: yes Problem list reviewed and updated with the most current plan of care details and appropriate orders placed. Relevant counseling for the gestational age provided. Continue routine care and follow up unless otherwise noted in visit notes/problem list details Initial Weight: 162 lb Date -?-?-?-?-?-?-?-?-?-?-?-?- EGA Weight BP Urine Prot -?-?-?-?-?-?-?-?-?-?-?-?- Glucose FHR FuHt Pres Dilation -?-?-?-?-?-?-?-?-?-?-?-?- Effaced St Visit Note 01/18/25 -?-?-?-?-?-?-?-?-?-?-?-?- 7w 2d 162 lb 2 oz (+2 oz) 122/79 -?-?-?-?-?-?-?-?-?-?-?-?- 151 -?-?-?-?-?-?-?-?-?-?-?-?- KW-CRL not cons with dates. ASHLEE changed. will plan NOB labs next visit. 03/01/25 -?-?-?-?-?-?-?-?-?-?-?-?- 13w 2d 166 lb (+4 lb) 111/70 Negative -?-?-?-?-?-?-?-?-?-?-?-?- Negative 158 -?-?-?-?-?-?-?-?-?-?-?-?- JV- no lof, vagi nal bleeding, or cramping. NIPT and new ob labs to be done today. 03/30/25 -?-?-?-?-?-?-?-?-?-?-?-?- 17w 3d 169 lb 4 oz (+7 lb 4 oz) 116/72 Negative -?-?-?-?-?-?-?-?-?-?-?-?- Negative 145 -?-?-?-?-?-?-?-?-?-?-?-?- SM- no vb lof cr amping 04/27/25 -?-?-?-?-?-?-?-?-?-?-?-?- 21w 3d 177 lb 7 oz (+15 lb 7 oz) 105/69 Negative -?-?-?-?-?-?-?-?-?-?-?-?- Negative 140 21 -?-?-?-?-?-?-?-?-?-?-?-?- KW- no vb/crampi ng. US scheduled for low lying placenta. 05/22/25 -?-?-?-?-?-?-?-?-?-?-?-?- 25w 0d 184 lb 5 oz (+22 lb 5 oz) 115/75 Negative -?-?-?-?-?-?-?-?-?-?-?-?- Negative 158 25 -?-?-?-?-?-?-?-?-?-?-?-?- MH-No VB, LOF. G ood FM. Rpt MFM US 06/13/25. Larc 06/13/25 -?-?-?-?-?-?-?-?-?-?-?-?- 28w 1d 185 lb (+23 lb) 101/67 Negative -?-?-?-?-?-?-?-?-?-?-?-?- Negative 145 29 -?-?-?-?-?-?-?-?-?-?-?-?- JV- placenta no longer low lying. discussed tdap, flu, rsv. going to decide. JV- placenta no longer low era romero. discussed tdap, flu, rsv. going to decide. She also wants to go straight to glucose testing if the one hour is abnormal. ACOG First Trimester First Trimester: Desire for , Alcohol, Tobacco Cessation, Illicit/Recreational Drug/Substance Use, Intimate Partner Violence, Barriers to care, Unstable Housing, Communication Barriers, Environmental/Work Hazards, Anticipated Course of Care, Toxoplasmosis Precations, Use of Any medications, Sexual activity, Exercise, Dental Care, Sauna/Hot tub use, Seat Belt use, Childbirth classes/Hospital facilities, Travel, Indications for Ultrasound and Screening for Aneuploidy; Discussed Second Trimester Second Trimester: Signs and Symptoms of Labor, Selecting a care provider, Reproductive Life Planning & Contreception, Care Planning, Depression/Anxiety and Intimate Partner Violence; Discussed Tobacco Cessation Third Trimester Third Trimester: Pain Management Plans, Labor support person(s), Immediate Larc, Signs and Symptoms of Preeclampsia, Feeding No , Bertrand Education and Family Medical Leave or Disability Forms Results POC Urinalysis 2 Dip (Clinic) Office Urine Glucose Negative Last Edit by Nicole Laboy on 06/13/25 15:40 Office Urine Protein Negative Last Edit by Nicole Laboy on 06/13/25 15:40 Coding Level of Care Code OB Routine Diagnoses Low lying placenta, antepartum O44.40 Hx of forceps delivery in prior , currently O09.299 History of gestational diabetes mellitus (GDM) in prior , currently O09.299; Z86.32 25 weeks gestation of Z3A.25 Weeks of gestation: 25 weeks Supervision of high risk in second trimester O09.92 Trimester: second trimester PCOS (polycystic ovarian syndrome) E28.2 Depression with anxiety F41.8 Assessment and Plan Assessment and Plan (1) Low lying placenta, antepartum: Status: Resolved Comment: follow up 28 weeks (2) Hx of forceps delivery in prior , currently : Status: Acute (3) History of gestational diabetes mellitus (GDM) in prior , currently : Status: Acute Comment: A1C (4) : Status: Acute Qualifiers: Weeks of gestation: 25 weeks Qualified Code(s): Z3A.25 - 25 weeks gestation of Comment: Panorama low risk, female. carrier neg. 14. ntd declined. (5) Supervision of high-risk : Status: Acute Qualifiers: Trimester: second trimester Qualified Code(s): O09.92 - Supervision of high risk , unspecified, second trimester Comment: PRR, , ASHLEE 09/04/25, girl SARITA Ellis, Josue (6) PCOS (polycystic ovarian syndrome): Status: Acute Comment: on metformin- sees jennifer in [place] . stopped at first visit. (7) Depression with anxiety: Status: Acute Comment: sees psychiatrist-Dr. Fuentes-Does not meet criteria for diagnosis of bipolar Orders: Orders POC Urinalysis 2 Dip (Clinic) Today Medications: New famotidine (Pepcid) 20 mg PO BID 60 tabs 4RF Clinical Quality Measures Falls Risk Screening/Assistive Devices Have you fallen in the past year?: No 06/13/25 1554 <Electronically signed by Emmanuelle Ling DO> Date _ Emmanuelle Contreras DO [facility] Signature: Date (if applicable) CC: ~ [facility] Work Phone: [phone]) 517-831108-15-2025 Progress [facility] [address] [place] [address], [address] [place] [id number] OFFICE VISIT Date of Service: 04/27/25 MR#: [id number] Acct: [id number] Name: DRAKE PETTY Rep #: [id number] : 1995 Provider: BRET Ruff Age/Sex: 30/F [place] [facility] [place] Status: Signed Intake Vital Signs 03/01/25 13:22 03/30/25 13:58 04/27/25 11:42 Height 5 ft 4 in 5 ft 4 in 5 ft 4 in Weight: 177 lb 7 oz BMI 30.4 BP 105/69 Intake Visit Reasons: 21 wk ob Chief Complaint: 21wk OB Inspector Canvas Products Required: No Is patient in pain?: No Allergies No Known Allergies Allergy (Verified 04/27/25 11:40) Medications ?Medication ?Instructions ?Recorded ?Confirmed ?Type lamotrigine 200 mg tablet 200 mg PO QDAY 01/02/2504/13 History PNV 153-FA 400 mcg-om3 35 mg-dha tab PO 01/11/2504/27 History 25 mg-epa 5 mg-fish oil chew tablet Last Menstrual Period: 11/09/24 : No PFSH PFSH Medical History Depression with anxiety PCOS (polycystic ovarian syndrome) Surgical History S/P wrist surgery S/P left knee surgery Family History Father Hypertension Mother Depression with anxiety Grandmother Diabetes Maternal Skin cancer, Onset Age: 75 Maternal Grandfather Diabetes Maternal Grandmother Diabetes Paternal Social History adopted: No household members: spouse and children housing: house number of children: 1 current occupational status: employed current occupation: [employer] current occupational exposures/hazards: No pets and animals: [...] 5-6 times per week duration: 45-60 minutes/day carolann/gnosticist: None seatbelt use: always do you feel [...] full term forceps 6#10oz Male epidural [facility] Josue Delivery Date: 08/11/22 Last Updated by: Joslyn Gregory IOL, GDM HPI 21 wk ob Details: DRAKE PETTY is a 30 year old who presents for routine OB visit. OB Visit ASHLEE Calculator Estimated Delivery Date Method Current WG Current Estimate 09/04/25 Ultrasound #1 21w 3d Other Estimates 08/16/25 LMP (Certain) 24w 1d Expected Delivery Route/Plan Labor Preferences- CB/BF classes: [...] current plan of care details and appropriate ordersplaced. Relevant counseling for the gestational age provided. Continue routine care and follow up unless otherwise noted in visit notes/problem list details Initial Weight: 162 lb Date -?-?-?-?-?-?-?-?-?-?-?-?- EGA Weight BP Urine Prot -?-?-?-?-?-?-?-?-?-?-?-?- Glucose FHR FuHt Pres Dilation -?-?-?-?-?-?-?-?-?-?-?-?- Effaced St Visit Note 01/18/25 -?-?-?-?-?-?-?-?-?-?-?-?- 7w 2d 162 lb 2 oz (+2 oz) 122/79 -?-?-?-?-?-?-?-?-?-?-?-?- 151 -?-?-?-?-?-?-?-?-?-?-?-?- KW-CRL not cons with dates. ASHLEE changed. will plan NOB labs next visit. 03/01/25 -?-?-?-?-?-?-?-?-?-?-?-?- 13w 2d 166 lb (+4 lb) 111/70 Negative -?-?-?-?-?-?-?-?-?-?-?-?- Negative 158 -?-?-?-?-?-?-?-?-?-?-?-?- JV- no lof, vagi nal bleeding, or cramping. NIPT and new ob labs to be done t [facility]. 03/30/25 -?-?-?-?-?-?-?-?-?-?-?-?- 17w 3d 169 lb 4 oz (+7 lb 4 oz) 116/72 Negative -?-?-?-?-?-?-?-?-?-?-?-?- Negative 145 -?-?-?-?-?-?-?-?-?-?-?-?- SM- no vb lof cr amping 04/27/25 -?-?-?-?-?-?-?-?-?-?-?-?- 21w 3d 177 lb 7 oz (+15 lb 7 oz) 105/69 Negative -?-?-?-?-?-?-?-?-?-?-?-?- Negative 140 21 -?-?-?-?-?-?-?-?-?-?-?-?- KW- no vb/crampi ng. US scheduled for low lying placenta. ACOG First Trimester First Trimester: Desire for , Alcohol, Tobacco Cessation, Illicit/Recreational Drug/Substance Use, Intimate Partner Violence, Barriers to care, Unstable Housing, Communication Barriers, Environmental/Work Hazards, Anticipated Course of Care, Toxoplasmosis Precations, Use of Any med ications, Sexual activity, Exercise, Dental Care, Sauna/Hot tub use, Seat Belt use, Childbirth classes/Hospital facilities, Travel, Indications for Ultrasound and Screening for Aneuploidy; Discussed Second Trimester Second Trimester: Signs and Symptoms of Labor, Selecting a care provider, Reproductive Life Planning & Contreception, Care Planning, Depression/Anxiety and Intimate Partner Violence; Discussed Tobacco Cessation Third Trimester Third Trimester: Pain Management Plans, Labor support person(s), Immediate Larc, Signs and Symptoms of Preeclampsia, Feeding No , Education and Family Medical Leave or Disability Forms ROS Const Reports system reviewed and no additional complaints, except as documented Eyes Reports system reviewed and no additional complaints, except as documented ENT Reports system reviewed and no additional complaints, except as documented Card Reports system reviewed and no additional complaints, except as documented Resp Reports system reviewed and no additional complaints, except as documented GI Reports system reviewed and no additional complaints, except as documented, Denies nausea and Denies vomiting Reports system reviewed and no additional complaints, except as documented Musc Reports system reviewed and no additional complaints, except as documented Skin/Breast Reports system reviewed and no additional complaints, except as documented Neuro Yes system reviewed and no additional complaints, except as documented Psych Reports system reviewed and no additional complaints, except as documented Endo Reports system reviewed and no additional complaints, except as documented Bucky/Lymph Reports system reviewed and no additional complaints, except as documented Aller/Immun Reports system reviewed and no additional complaints, except as documented Exam Const General: cooperative, healthy appearing and no acute distress Orientation: alert, awake and oriented x3 Neck Neck: normal visual inspection and full ROM Resp Effort & Inspection: normal respiratory effort, able to speak in complete sentences and symmetric chest movement GI Inspection: normal to inspection Palpation: soft and other Other: gravid Skin General: no rashes or lesions noted Neuro General: patient alert, patient awake and patient oriented x3 Cognition: normal cognition Speech: speech normal Gait: normal gait Motor: muscle tone normal throughout Extrem General: normal to inspection and full ROM Psych Appearance: grossly normal Mental Status: mental status grossly normal Mood: congruent mood Affect: normal affect Speech and Movement: speech and movement normal Attitude: cooperative Thought Process: normal Thought Content: normal Judgment: judgment good Results POC Urinalysis 2 Dip (Clinic) Office Urine Glucose Negative Last Edit by Ping Engel on 04/27/25 11:47 Office Urine Protein Negative Last Edit by Ping Engel on 04/27/25 11:47 Coding Level of Care Code OB Routine Diagnoses Hx of forceps delivery in prior , currently O09.299 History of gestational diabetes mellitus (GDM) in prior , currently O09.299; Z86.32 21 weeks gestation of Z3A.21 Weeks of gestation: 21 weeks Supervision of high risk in first trimester O09. Trimester: first trimester PCOS (polycystic ovarian syndrome) E28.2 Depression with anxiety F41.8 Low lying placenta, antepartum O44.40 Assessment and Plan Assessment and Plan (1) Hx of forceps delivery in prior , currently : Status: Acute (2) History of gestational diabetes mellitus (GDM) in prior , currently : Status: Acute Comment: A1C (3) : Status: Acute Qualifiers: Weeks of gestation: 21 weeks Qualified Code(s): Z3A.21 - 21 weeks gestation of Comment: Panorama low risk, female. carrier neg. 14/14. ntd declined. (4) Supervision of high-risk : Status: Acute Qualifiers: Trimester: first trimester Qualified Code(s): O09.91 - Supervision of high risk , unspecified, first trimester Comment: PRR, , ASHLEE 09/04/25, girl SARITA Ellis, Josue (5) PCOS (polycystic ovarian syndrome): Status: Acute Comment: on metformin- sees jennifer in [place] . stopped at first visit. (6) Depression with anxiety: Status: Acute Comment: sees psychiatrist-Dr. Fuentes-Does not meet criteria for diagnosis of bipolar (7) Low lying placenta, antepartum: Status: Acute Comment: follow up 28 weeks Orders: Orders POC Urinalysis 2 Dip (Clinic) Today Plan Details Additional Comments: ACOG trimester education reviewed and updated. see problem list details for updated plan management information and see below for orders placed atthis visit. GA appropriate handout given. 04/27/25 1153 s CNM> Date _ Nel Ruff CNM Cosigner Signature: Date (if applicable) CC: ~ [facility]07-18-2025 Evaluation note* Diagnosis Onset Date Resolution Status Admit Date Depression with anxiety acute J lenora 2024 1:56pm History of gestational diabetes mellitus (GDM) in prior , currentl acute March 132024 1:56pm Hx of forceps delivery in prior , currently acute March 30, 2025 1:56pm PCOS (polycystic ovarian syndrome) acute March 30, 2025 1:56pm acute March 30 1:56pm Supervision of high-risk acute March 30, 2025 1:56pm Depression with anxiety acute A ugust 2024 11:38am History of gestational diabetes mellitus (GDM) in prior , currentl acute April 27, 2025 11:38am Hx of forceps delivery in prior , currently acute April 27 11:38am PCOS (polycystic ovarian syndrome) acute April 27 11:38am acute April 27, 025 11:38am Supervision of high-risk acute April 27 11:38am Low lying placenta, antepartum resolved April 27 11:38am Depression with anxiety acute S eptember 2024 3:33pm History of gestational diabetes mellitus (GDM) in prior , currentl acute Sept2024 3:33pm Hx of forceps delivery in prior , currently acute Emiliana 9th, 2 025 3:33pm PCOS (polycystic ovarian syndrome) acute May 22 2 025 3:33pm acute May 22, 2025 3:33pm Supervision of high-risk acute May 22 3:33pm Low lying placenta, antepartum resolved May 22 025 3:33pm Depression with anxiety acute O ctober 2024 3:09pm History of gestational diabetes mellitus (GDM) in prior , currentl acute Octobe r 2024 3:09pm Hx of forceps delivery in prior , currently acute June 13 3:09pm PCOS (polycystic ovarian syndrome) acute June 13 3:09pm acute June 13 3:09pm Supervision of high-risk acute June 13 3:09pm Low lying placenta, antepartum resolved June 13 3:09pm Depression with anxiety acute O ctober 2024 3:13pm Gestational diabetes mellitus (GDM) affecting , antepartum acute June 252024 3:13pm History of gestational diabetes mellitus (GDM) in prior , currentl acute Octobe r 2024 3:13pm Hx of forceps delivery in prior , currently acute June 25 3:13pm PCOS (polycystic ovarian syndrome) acute June 25 3:13pm acute June 25, 2025 3:13pm Supervision of high-risk acute June 25 3:13pm Abnormal glucose affecting deleted June 25 3:13pm [facility] Work Phone: [phone]) 408-414907-18-2025 Progress [facility] [address] [place] [address], [address] [place] [address] OFFICE VISIT Date of Service: 03/30/25 MR#: [id number] Acct: [id number] Name: DRAKE PETTY Luna Rep #: [id number] : 1995 Provider: Dr. Cruzito Thompson MD Age/Sex: 30/F [place] [facility] [place]: Signed Intake Vital Signs 01/18/25 08:47 03/01/25 13:22 03/30/25 13:58 Height 5 ft 4 in 5 ft 4 in 5 ft 4 in Weight: 169 lb 4 oz BMI 29.0 BP 116/72 Intake Visit Reasons: 17 wk ob Inspector Canvas Products Required: No Is patient in pain?: No Allergies No Known Allergies Allergy (Verified 03/30/25 14:00) Medications ?Medication ?Instructions ?Recorded ?Confirmed ?Type lamotrigine 200 mg tablet 200 mg PO QDAY 01/02/2503/13 History metformin 500 mg tablet,extended 1,500 mg PO QDAY 12/1303/30/25 History release 24 hr PNV 153-FA 400 mcg-om3 35 mg-dha tab PO 01/11/2503/30 History 25 mg-epa 5 mg-fish oil chew tablet Last Menstrual Period: 11/09/24 Zika: Zika virus screening: Negative : No PFSH PFSH Medical History (Updated 03/30/25 @ 14:[address] Ayala Thompson MD) Depression with anxiety PCOS (polycystic ovarian syndrome) Surgical History S/P wrist surgery S/P left knee surgery Family History Father Hypertension Mother Depression with anxiety Grandmother Diabetes Maternal Skin cancer, Onset Age: 75 Maternal Grandfather Diabetes Maternal Grandmother Diabetes Paternal Social History adopted: No household members: spouse and children housing: house number of children: 1 current occupational status: employed current occupation: [employer] current occupational exposures/hazards: No pets and animals: [...] 5-6 times per week duration: 45-60 minutes/day carolann/gnosticist: None seatbelt use: always do you feel [...] full term forceps 6#10oz Male epidural [facility] Josue Delivery Date: 08/11/22 Last Updated by: Joslyn Gregory IOL, GDM HPI 17 wk ob Details: DRAKE PETTY is a 30 year old who presents for routine OB visit. OB Visit ASHLEE Calculator Estimated Delivery Date Method Current WG Current Estimate 09/04/25 Ultrasound #1 17w 3d Other Estimates 08/16/25 LMP (Certain) 20w 1d Expected Delivery Route/Plan Labor Preferences- CB/BF classes: [...] current plan of care details and appropriate ordersplaced. Relevant counseling for the gestational age provided. Continue routine care and follow up unless otherwise noted in visit notes/problem list details Initial Weight: 162 lb Date -?-?-?-?-?-?-?-?-?-?-?-?- EGA Weight BP Urine Prot -?-?-?-?-?-?-?-?-?-?-?-?- Glucose FHR FuHt Pres Dilation -?-?-?-?-?-?-?-?-?-?-?-?- Effaced St Visit Note 01/18/25 -?-?-?-?-?-?-?-?-?-?-?-?- 7w 2d 162 lb 2 oz (+2 oz) 122/79 -?-?-?-?-?-?-?-?-?-?-?-?- 151 -?-?-?-?-?-?-?-?-?-?-?-?- KW-CRL not cons with dates. ASHLEE changed. will plan NOB labs next visit. 03/01/25 -?-?-?-?-?-?-?-?-?-?-?-?- 13w 2d 166 lb (+4 lb) 111/70 Negative -?-?-?-?-?-?-?-?-?-?-?-?- Negative 158 -?-?-?-?-?-?-?-?-?-?-?-?- JV- no lof, vagi nal bleeding, or cramping. NIPT and new ob labs to be done today. 03/30/25 -?-?-?-?-?-?-?-?-?-?-?-?- 17w 3d 169 lb 4 oz (+7 lb 4 oz) 116/72 Negative -?-?-?-?-?-?-?-?-?-?-?-?- Negative 145 -?-?-?-?-?-?-?-?-?-?-?-?- SM- no vb lof cr amping ACOG First Trimester First Trimester: Desire for , Alcohol, Tobacco Cessation, Illicit/Recreational Drug/Substance Use, Intimate Partner Violence, Barriers to care, Unstable Housing, Communication Barriers, Environmental/Work Hazards, Anticipated Course of Care, Toxoplasmosis Precations, Use of Any med ications, Sexual activity, Exercise, Dental Care, Sauna/Hot tub use, Seat Belt use, Childbirth classes/Hospital facilities, Travel, Indications for Ultrasound and Screening for Aneuploidy; Discussed Second Trimester Second Trimester: Signs and Symptoms of Labor, Selecting a care provider, Reproductive Life Planning & Contreception, Care Planning, Depression/Anxiety and Intimate Partner Violence; Discussed Tobacco Cessation Third Trimester Third Trimester: Pain Management Plans, Labor support person(s), Immediate Larc, Signs and Symptoms of Preeclampsia, Feeding No , Bertrand Education and Family Medical Leave or Disability Forms Results POC Urinalysis 2 Dip (Clinic) Office Urine Glucose Negative Last Edit by Emma Cotton on 03/30/25 14:06 Office Urine Protein Negative Last Edit by Emma Cotton on 03/30/25 14:06 Coding Level of Care Code OB Routine Diagnoses Hx of forceps delivery in prior , currently O09.299 History of gestational diabetes mellitus (GDM) in prior , currently O09.299; Z86.32 17 weeks gestation of Z3A.17 Weeks of gestation: 17 weeks Supervision of high risk in first trimester O09.91 Trimester: first trimester PCOS (polycystic ovarian syndrome) E28.2 Depression with anxiety F41.8 Assessment and Plan Assessment and Plan (1) Hx of forceps delivery in prior , currently : Status: Acute (2) History of gestational diabetes mellitus (GDM) in prior , currently : Status: Acute Comment: A1C (3) : Status: Acute Qualifiers: Weeks of gestation: 17 weeks Qualified Code(s): Z3A.17 - 17 weeks gestation of Comment: Panorama low risk, female. carrier neg. . ntd declined. (4) Supervision of high-risk : Status: Acute Qualifiers: Trimester: first trimester Qualified Code(s): O09.91 - Supervision of high risk , unspecified, first trimester Comment: PRR, , ASHLEE 09/04/25, girl SARITA Ellis, Josue (5) PCOS (polycystic ovarian syndrome): Status: Acute Comment: on metformin- sees jennifer in [place] . stopped at first visit. (6) Depression with anxiety: Status: Acute Comment: sees psychiatrist-Dr. Fuentes-Does not meet criteria for diagnosis of bipolar Orders: Orders POC Urinalysis 2 Dip (Clinic) Today 03/30/25 1431 chacha GREER> Date _ Ayala Thompson MD Cosign Signature: Date (if applicable) CC: ~ [facility]07-18-2025 Progress note Author Ayala Thompson [facility] Note Date/Time March 30, 2025 2:31 pm [facility] [address] [place] [address], [address] [place] [address] OFFICE VISIT Date of Service: 03/30/25 MR#: [id number] Acct: [id number] Name: DRAKE PETTY Rep #: [id number] : 1995 Provider: Dr. Cruzito Thompson MD Age/Sex: 30/F [place] [facility] [place]: Signed Intake Vital Signs 01/18/25 08:47 03/01/25 13:22 03/30/25 13:58 Height 5 ft 4 in 5 ft 4 in 5 ft 4 in Weight: 169 lb 4 oz BMI 29.0 BP 116/72 Intake Visit Reasons: 17 wk ob Inspector Canvas Products Required: No Is patient in pain?: No Allergies No Known Allergies Allergy (Verified 03/30/25 14:00) Medications ?Medication ?Instructions ?Recorded ?Confirmed ?Type lamotrigine 200 mg tablet 200 mg PO QDAY 01/02/2503/13 History metformin 500 mg tablet,extended 1,500 mg PO QDAY 12/1303/30/25 History release 24 hr PNV 153-FA 400 mcg-om3 35 mg-dha tab PO 01/11/2503/30 History 25 mg-epa 5 mg-fish oil chew tablet Last Menstrual Period: 11/09/24 Zika: Zika virus screening: Negative : No PFSH PFSH Medical History (Updated 03/30/25 @ 14:[address] 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 Date Name GA/Weeks Outcome Route Bth Weight Gen Labor Lgth Anesthesia Del Locatn Provider FOB 08/11/22 [place] 38 live - full term forceps 6#10oz Male epidural [facility] Josue Delivery Date: 08/11/22 Last Updated by: Joslyn Gregory IOL, GDM HPI 17 wk ob Details: DRAKE PETTY is a 30 year old who presents for routine OB visit. OB Visit ASHLEE Calculator Estimated Delivery Date Method Current WG Current Estimate 09/04/25 Ultrasound #1 17w 3d Other Estimates 08/16/25 LMP (Certain) 20w 1d Expected Delivery Route/Plan Labor Preferences- CB/BF classes: [...] list details Initial Weight: 162 lb Date -?-?-?-?-?-?-?-?-?-?-?-?- EGA Weight BP Urine Prot -?-?-?-?-?-?-?-?-?-?-?-?- Glucose FHR FuHt Pres Dilation -?-?-?-?-?-?-?-?-?-?-?-?- Effaced St Visit Note 01/18/25 -?-?-?-?-?-?-?-?-?-?-?-?- 7w 2d 162 lb 2 oz (+2 oz) 122/79 -?-?-?-?-?-?-?-?-?-?-?-?- 151 -?-?-?-?-?-?-?-?-?-?-?-?- KW-CRL not cons with dates. ASHLEE changed. will plan NOB labs next visit. 03/01/25 -?-?-?-?-?-?-?-?-?-?-?-?- 13w 2d 166 lb (+4 lb) 111/70 Negative -?-?-?-?-?-?-?-?-?-?-?-?- Negative 158 -?-?-?-?-?-?-?-?-?-?-?-?- JV- no lof, vagi nal bleeding, or cramping. NIPT and new ob labs to be done today. 03/30/25 -?-?-?-?-?-?-?-?-?-?-?-?- 17w 3d 169 lb 4 oz (+7 lb 4 oz) 116/72 Negative -?-?-?-?-?-?-?-?-?-?-?-?- Negative 145 -?-?-?-?-?-?-?-?-?-?-?-?- SM- no vb lof cr amping ACOG First Trimester First Trimester: Desire for , Alcohol, Tobacco Cessation, Illicit/Recreational Drug/Substance Use, Intimate Partner Violence, Barriers to care, Unstable Housing, Communication Barriers, Environmental/Work Hazards, Anticipated Course of Care, Toxoplasmosis Precations, Use of Any medications, Sexual activity, Exercise, Dental Care, Sauna/Hot tub use, Seat Belt use, Childbirth classes/Hospital facilities, Travel, Indications for Ultrasound and Screening for Aneuploidy; Discussed Second Trimester Second Trimester: Signs and Symptoms of Labor, Selecting a care provider, Reproductive Life Planning & Contreception, Care Planning, Depression/Anxiety and Intimate Partner Violence; Discussed Tobacco Cessation Third Trimester Third Trimester: Pain Management Plans, Labor support person(s), Immediate Larc, Signs and Symptoms of Preeclampsia, Infant Feeding No , Bertrand Education and Family Medical Leave or Disability Forms Results POC Urinalysis 2 Dip (Clinic) Office Urine Glucose Negative Last Edit by Emma Cotton on 03/30/25 14:06 Office Urine Protein Negative Last Edit by Emma Cotton on 03/30/25 14:06 Coding Level of Care Code OB Routine Diagnoses Hx of forceps delivery in prior , currently O09.299 History of gestational diabetes mellitus (GDM) in prior , currently O09.299; Z86.32 17 weeks gestation of Z3A.17 Weeks of gestation: 17 weeks Supervision of high risk in first trimester O09. Trimester: first trimester PCOS (polycystic ovarian syndrome) E28.2 Depression with anxiety F41.8 Assessment and Plan Assessment and Plan (1) Hx of forceps delivery in prior , currently : Status: Acute (2) History of gestational diabetes mellitus (GDM) in prior , currently : Status: Acute Comment: A1C (3) : Status: Acute Qualifiers: Weeks of gestation: 17 weeks Qualified Code(s): Z3A.17 - 17 weeks gestation of Comment: Panorama low risk, female. carrier neg. . ntd declined. (4) Supervision of high-risk : Status: Acute Qualifiers: Trimester: first trimester Qualified Code(s): O09.91 - Supervision of high risk , unspecified, first trimester Comment: PRR, , ASHLEE 09/04/25, girl SARITA Ellsi, Josue (5) PCOS (polycystic ovarian syndrome): Status: Acute Comment: on metformin- sees jennifer in [place] . stopped at first visit. (6) Depression with anxiety: Status: Acute Comment: sees psychiatrist-Dr. Fuentes-Does not meet criteria for diagnosis of bipolar Orders: Orders POC Urinalysis 2 Dip (Clinic) Today 03/30/25 1431 <Electronically signed by Ayala burnham MD> Date _ Ayala Childers Signature: Date (if applicable) CC: ~ [facility] Work Phone: 1(422) 509-508607-14-2025 NoteBEHAVIORAL HEALTH PSYCHIATRIC PROGRESS NOTE 03/26/2025 Drake Petty, a 30 y.o. female, here for psychotropic medication management follow-up Patient is referred by Keyla Meneses CNP Interval History: Patient is here for follow-up visit. She is 17 weeks gestation. Patient is doing well and denies any new concerns. Patient reports mild irritability but that is all pervasive. Patient does not endorse any depressive mood symptoms and she is not endorsing any hypomanic/manic mood symptoms. Patient denies any racing thoughts or flight of ideas. Attention span is fair. Sleep quality quantity is good. Appetite is within normal limits. Denies any feelings of hopelessness or suicidal thoughts. Anxiety control is fair We again discussed the pros and cons of being [...] continue this medications while she is . Medications assessed: Patient remains compliant. Good response Breast-feeding data discussed with the mother that is available on up to date Goals and objectives of treatment: Maintain mood stability Patient compliance PFSH: Past Medical History: Diagnosis Date ADHD [...] Diabetes Paternal Grandmother ADD / ADHD Brother Charlton The following portions of the patient's history [...] episodic mood disorder Rule out bipolar 2 disorder 17 weeks gestation Recommendations: Treatment Plan: Pharmacological management: [...] Other Referrals/Consults/Psychological Testing: none Anna Fuentes MD AUTHENTICATED BY ANNA FUENTES, ON 03/26/2025 12:10:30[facility] 03-26-2025 History of Present illness Narrative* Anna Fuentes MD - 03/26/2025 11:59 AM EDT BEHAVIORAL HEALTH PSYCHIATRIC PROGRESS NOTE 03/26/2025 Drake Petty, a 30 y.o. female, here for psychotropic medication management follow-up Patient is referred by Keyla Meneses CNP Interval History: Patient is here for follow-up visit. She is 17 weeks gestation. Patient is doing well and denies any new concerns. Patient reports mild irritability but that is all pervasive. Patient does not endorse any depressive mood symptoms and she is not endorsing any hypomanic/manic mood symptoms. Patient denies any racing thoughts or flight of ideas. Attention span is fair. Sleep quality quantity is good. Appetite is within normal limits. Denies any feelings of hopelessness or suicidal thoughts. Anxiety control is fair We again discussed the pros and cons of being on lamotrigine. Lamotrigine safety has been documented through database where women who have been on lamotrigine while have provided significantevidence that there is no elevated risk of congenital abnormalities as compared to women who did not take lamotrigine. Lamotrigine is considered safe during . Patient verbalized understanding of the pros and cons and stated she would like to continue this medications while she is . Medications assessed: Patient remains compliant. Good response Breast-feeding data discussed with the mother that is available on up to date Goals and objectives of treatment: Maintain mood stability Patient compliance PFSH: Past Medical History: Diagnosis Date ADHD [...] Diabetes Paternal Grandmother ADD / ADHD Brother Charlton The following portions of the patient's history [...] episodic mood disorder Rule out bipolar 2 disorder 17 weeks gestation Recommendations: Treatment Plan: Pharmacological management: [...] none Anna Fuentes MD documented in this [id number] Evaluation note* Diagnosis Onset Date Resolution Status Admit Date Depression with anxiety acute J [facility] 2024 1:18pm History of gestational diabetes mellitus (GDM) in prior , currentl acute February 112024 1:18pm Hx of forceps delivery in prior , currently acute March 01, 2025 1:18pm PCOS (polycystic ovarian syndrome) acute March 01, 2025 1:18pm acute March 01 1:18pm Supervision of high-risk acute March 01, 2025 1:18pm Depression with anxiety acute J lenora 2024 1:56pm History of gestational diabetes mellitus (GDM) in prior , currentl acute March 132024 1:56pm Hx of forceps delivery in prior , currently acute March 30, 2025 1:56pm PCOS (polycystic ovarian syndrome) acute March 30, 2025 1:56pm acute March 30 1:56pm Supervision of high-risk acute March 30, 2025 1:56pm Depression with anxiety acute A ug2024 11:38am History of gestational diabetes mellitus (GDM) in prior , currentl acute April 27, 2025 11:38am Hx of forceps delivery in prior , currently acute April 27 11:38am Low lying placenta, antepartum acute April 27 11:38am PCOS (polycystic ovarian syndrome) acute April 27 11:38am acute April 27, 2 025 11:38am Supervision of high-risk acute April 27 11:38am Depression with anxiety [facility] 2024 3:33pm History of gestational diabetes mellitus (GDM) in prior , currentl acute 2024 3:33pm Hx of forceps delivery in prior , currently acute May 22 2 025 3:33pm Low lying placenta, antepartum acute May 22 2 025 3:33pm PCOS (polycystic ovarian syndrome) acute May 22 2 025 3:33pm acute May 22, 2025 3:33pm Supervision of high-risk acute May 22 2 025 3:33pm [facility] Work Phone: 1(943) 574-688406-19-2025 Evaluation note* Diagnosis Onset Date Resolution Status Admit Date Depression with anxiety acute J une 2024 1:18pm History of gestational diabetes mellitus (GDM) in prior , currentl acute February 112024 1:18pm Hx of forceps delivery in prior , currently acute March 01, 2025 1:18pm PCOS (polycystic ovarian syndrome) acute March 01, 2025 1:18pm acute March 01 1:18pm Supervision of high-risk acute March 01, 2025 1:18pm Depression with anxiety acute J lenora 2024 1:56pm History of gestational diabetes mellitus (GDM) in prior , currentl acute March 132024 1:56pm Hx of forceps delivery in prior , currently acute March 30, 2025 1:56pm PCOS (polycystic ovarian syndrome) acute March 30, 2025 1:56pm acute March 30 1:56pm Supervision of high-risk acute March 30, 2025 1:56pm Depression with anxiety acute A ugust 2024 11:38am History of gestational diabetes mellitus (GDM) in prior , currentl acute April 27, 2025 11:38am Hx of forceps delivery in prior , currently acute April 27 11:38am PCOS (polycystic ovarian syndrome) acute April 27 11:38am acute April 27, 2 025 11:38am Supervision of high-risk acute April 27 11:38am Low lying placenta, antepartum resolved April 27 11:38am Depression with anxiety acute S eptember 2024 3:33pm History of gestational diabetes mellitus (GDM) in prior , currentl acute 2024 3:33pm Hx of forceps delivery in prior , currently acute May 22, 2 025 3:33pm PCOS (polycystic ovarian syndrome) acute May 22, 2 025 3:33pm acute May 22, 2025 3:33pm Supervision of high-risk acute May 22, 2 025 3:33pm Low lying placenta, antepartum resolved May 22 2 025 3:33pm Depression with anxiety acute O ctober 2024 3:09pm History of gestational diabetes mellitus (GDM) in prior , currentl acute Octobe r 2024 3:09pm Hx of forceps delivery in prior , currently acute June 13 3:09pm PCOS (polycystic ovarian syndrome) acute June 13 3:09pm acute June 13, 2 025 3:09pm Supervision of high-risk acute June 13 3:09pm Low lying placenta, antepartum resolved June 13 3:09pm [facility] Work Phone: 1(130) 324-985404-22-2025 Evaluation note* Diagnosis Onset Date Resolution Status Admit Date Supervision of high-risk acute January 02, 2025 8:21am Depression with anxiety acute M 2024 8:46am History of gestational diabe rommel mellitus (GDM) in prior , currentl acute January 18 8:46am Hx of forceps delivery in pr ior , currently acute 2024 8:46am PCOS (polycystic ovarian syndrome) acute January 18, 2025 8: 46am acute January 18, 2025 8:46am Supervision of high-risk acute January 18, 2025 8: 46am [facility] Work Phone: 1(370) 489-172704-22-2025 Evaluation note* Diagnosis Onset Date Resolution Status Admit Date Supervision of high-risk acute January 02, 2025 8:21am Depression with anxiety acute M 2024 8:46am History of gestational diabe rommel mellitus (GDM) in prior , currentl acute January 18 8:46am Hx of forceps delivery in pr ior , currently acute 2024 8:46am PCOS (polycystic ovarian syndrome) acute January 18, 2025 8: 46am acute January 18, 2025 8:46am Supervision of high-risk acute January 18, 2025 8: 46am Depression with anxiety acute J [facility] 2024 1:18pm History of gestational diabe rommel mellitus (GDM) in prior , currentl acute March 01, 2 025 1:18pm Hx of forceps delivery in pr ior , currently acute [facility] 2024 1:18pm PCOS (polycystic ovarian syndrome) acute March 01, 2025 1:18pm acute March 01 1:18pm Supervision of high-risk acute March 01, 2025 1:18pm [facility] Work Phone: 1(915) 781-488504-22-2025 Evaluation note* Diagnosis Onset Date Resolution Status Admit Date Supervision of high-risk acute January 02, 2025 8:21am Depression with anxiety acute M ay 2024 8:46am History of gestational diabe rommel mellitus (GDM) in prior , currentl acute January 18 8:46am Hx of forceps delivery in pr ior , currently acute Ma y 2024 8:46am PCOS (polycystic ovarian syndrome) acute January 18, 2025 8: 46am acute January 18, 2025 8:46am Supervision of high-risk acute January 18, 2025 8: 46am Depression with anxiety acute J une 2024 1:18pm History of gestational diabe rommel mellitus (GDM) in prior , currentl acute March 01, 2 025 1:18pm Hx of forceps delivery in pr ior , currently acute [facility] 2024 1:18pm PCOS (polycystic ovarian syndrome) acute March 01, 2025 1:18pm acute March 01 1:18pm Supervision of high-risk acute March 01, 2025 1:18pm Depression with anxiety acute J [facility] 2024 1:56pm History of gestational diabe rommel mellitus (GDM) in prior , currentl acute March 30 025 1:56pm Hx of forceps delivery in pr ior , currently acute [facility] 2024 1:56pm PCOS (polycystic ovarian syndrome) acute March 30, 2025 1:56pm acute March 30 1:56pm Supervision of high-risk acute March 30, 2025 1:56pm [facility] Work Phone: 1(429) 188-312104-22-2025 Evaluation note* Diagnosis Onset Date Resolution Status Admit Date Supervision of high-risk acute January 02, 2025 8:21am Depression with anxiety acute M 2024 8:46am History of gestational diabe rommel mellitus (GDM) in prior , currentl acute January 18 8:46am Hx of forceps delivery in pr ior , currently acute Ma y 2024 8:46am PCOS (polycystic ovarian syndrome) acute January 18, 2025 8: 46am acute January 18, 2025 8:46am Supervision of high-risk acute January 18, 2025 8: 46am Depression with anxiety acute J une 2024 1:18pm History of gestational diabe rommel mellitus (GDM) in prior , currentl acute March 01 025 1:18pm Hx of forceps delivery in pr ior , currently acute Ju ne 2024 1:18pm PCOS (polycystic ovarian syndrome) acute March 01, 2025 1:18pm acute March 01 1:18pm Supervision of high-risk acute March 01, 2025 1:18pm Depression with anxiety acute J lenora 2024 1:56pm History of gestational diabe rommel mellitus (GDM) in prior , currentl acute March 30 025 1:56pm Hx of forceps delivery in pr ior , currently acute Ju ly 2024 1:56pm PCOS (polycystic ovarian syndrome) acute March 30, 2025 1:56pm acute March 30 1:56pm Supervision of high-risk acute March 30, 2025 1:56pm Depression with anxiety acute A ugust 2024 11:38am History of gestational diabe rommel mellitus (GDM) in prior , currentl acute April 27, 2025 11:38am Hx of forceps delivery in pr ior , currently acute Au dixon 2024 11:38am Low lying placenta, antepartum acute April 27, 2025 11:38am PCOS (polycystic ovarian syndrome) acute April 27 11:38am acute April 27 11:38am Supervision of high-risk acute April 27 11:38am [facility] Work Phone: 1(889) 649-912804-14-2025 [facility]BE[facility]GRESS NOTE 12/25/2024 Drake Petty, a 29 y.o. female, here for psychotropic medication management follow-up Patient is referred by Keyla Meneses, MED Interval History: Patient is here for follow-up [...] Diabetes Paternal Grandmother ADD / ADHD Brother Charlton The following portions of the patient's history [...] or community referral: none (more content not included)...[facility]04-14-2025 History of Present illness Narrative* Anna Fuentes [...] Diabetes Paternal Grandmother ADD / ADHD Brother Charlton The following portions of the patient's history [...] none Anna Fuentes MD documented in this [id number] History of Present illness Narrative* Antonio Lopez PA-C - 11/09/2024 12:50 PM EST [facility] CAROL NOTE: Name: Drake Petty, 29 y.o. CSN:[id number] PCP: Anand Cooley, ALL: No Known Allergies [...] states sx started Wednesday. ) leaving for [place] soon for business trip, would like this [...] Medications Medication Sig Dispense Refill liraglutide (Victoza 2-Rusesl) 0.6 mg/0.1 mL (18 mg/3 mL) injection Inject 0.6 mg every day for one week, then inject 1.2 mg every day for one week, then inject 1.8 mg every day mtnfneothijnqkf-febqllgou-WC 2-30-10 mg/5 mL syrup Take 5 mL [...] Resource Strain: Low Risk (07/21/2023) Received from [facility] Overall Financial Resource Strain (CARDIA) Difficulty of Paying Living Expenses: Not hard at all Food Insecurity: No Food Insecurity (07/21/2023) Received from [facility] Hunger Vital Sign Worried About Running Out of Food in the Last Year: Never true Ran Out of Food in the Last Year: Never true Transportation Needs: No Transportation Needs (07/21/2023) Received from [facility] PRAPARE - Transportation Lack of Transportation (Medical): No Lack of Transportation (Non-Medical): No Physical Activity: Inactive (06/17/2022) Received from [facility] Exercise Vital Sign Days of Exercise per Week: 0 days Minutes of Exercise per Session: 0 min Stress: Stress Concern Present (06/17/2022) Received from [facility] [place] [facility] [employer] [facility] - Occupational Stress Questionnaire Feeling of Stress : To some extent Social Connections: Moderately Isolated (06/17/2022) Received from [facility] Social Connection and Isolation Panel [NHANES] Frequency of Communication with Friends and Family: More than three times a week Frequency of Social Gatherings with Friends and Family: Three times a week Attends Uatsdin Services: Never Active Member of Clubs or Organizations: No Attends Club or Organization Meetings: Never Marital Status: Intimate Partner Violence: Not At Risk (06/17/2022) Received from [facility] Humiliation, Afraid, Rape, and Kick questionnaire Fear of Current or Ex-Partner: No Emotionally Abused: No Physically Abused: No Sexually Abused: No Housing Stability: Low Risk (06/17/2022) Received from [facility] Housing Stability Vital Sign Unable to Pay [...] Social Determinants of Health (SDOH). During this UC encounter, she did not have social determinants of health. Those SDOH influencingDrake's care are: none UC COURSE/MEDICAL DECISION MAKING: Drake is a 29 [...] flight. Antonio Lopez PA-C Advanced Practice Provider [facility] Please note: While the patient may or may not have received printed discharge paperwork, all relevant medical findings, test results, and treatment details are accessible through the electronic medical record system. The patient is encouraged to review their chart via the patient portal for comprehensive information and follow-up instructions. documented [facility] Work Phone: 1(589) 703-217809-06-2024 History of Present illness Narrative* Sussy Degroot MA - 05/19/2024 12:43 PM EDT Images from the original note were not included. This [facility] qa manager attempted to contact patient regarding referral to BHI program placed by PCP at request of [facility]. The patient did not answer. Voice mail message was left with request for return call.THIRD and final attempt. [phone] Behavioral Health Screenings: 09/01/2023 8:00 AM 03/06/2024 1:37 PM GABRIELA-7 GABRIELA-7 Score 3 10 09/25/2019 5:00 PM PHQ-9 PHQ-9 Total Score 6 documented in this [id number] Evaluation + Plan note* Assessment & Plan Note - Keyla Meneses CNP - 05/18/2024 9:13 AM EDT Associated Problem(s): Anxiety and depression Acute on chronic. Sub-optimal control Stop pristiq given worsening symptoms. Increase buspar dose Refer to psychiatry Encouraged to schedule with counseling Discussed hospital precautions [id number] Miscellaneous Notes* Assessment & Plan Note - Keyla Meneses CNP - 05/18/2024 9:13 AM EDTAssociated Problem(s): Anxiety and depression Acute on chronic. Sub-optimal control Stop pristiq given worsening symptoms. Increase buspar dose Refer to psychiatry Encouraged to schedule with counseling Discussed hospital precautions documented in this [id number] Instructions* Patient Instructions* Maria Antonia Ayala LPN - 05/18/2024 8:07 AM EDT Feedback Our goal is to provide you with exceptional patient care, and we strive to do this for every patient, every visit. Since we care about you and your experience, you may receive a patient satisfaction survey in the mail, via email or text message from [employer] We truly welcome your feedback, positive and [...] call at or send the provider a Meebler message and we will be happy to assist. Advanced Imaging (MRI, CT, etc.) If your provider ordered advanced imaging during your visit today, you will be contacted by [facility] Central Scheduling. If you would prefer to [...] concerned about them, you will receive a Colingot message with these results. If your labs are abnormal or critical, you will receive a phone call with your results. If you have not heard anything about your lab results after 5 business days, please give our office a call at or send the provider a [employer] message and we will be happy to [...] call at or send the provider a [employer]ot message and allow up to 2 business days for us to complete this. If your insurance requires your medication(s) to be prior authorized, we will work with your insurance company to get these medication(s) prior authorized for you. Please allow up to 7-10 business days for this to be completed. [employer] is a wonderful way to communicate with your provider and often allows for quicker response times compared to calling our office. Please consider sending your provider a Meebler message with your non-urgent questions, medication refill requests, or even to schedule an appointment. Please do not use Meebler to send any messages requiring urgent or [...] speak to the provider on-call or call [phone]. Important Numbers Billing Questions or MyChart Support or Medical Financial Assistance Central Scheduling or Thank you for choosing [facility] for your healthcare needs documented in this [id number] History of Present illness Narrative* Keyla Meneses, MED - 05/18/2024 8:05 AM EDT Subjective Patient [...] is not in the moment. Referral placed [facility]. Per chart review, patient has yet to [...] specialist office contacts you. documented in this [id number] History of Present illness Narrative* Sussy Degroot MA - 05/05/2024 4:28 PM EDT Images from the original note were not included. This [facility] qa manager attempted to contact patient regarding referral to BHI program placed by PCP at request of [facility]. The patient did not answer. Voice mail message was left with request for return call.SECOND attempt. [phone] Behavioral Health Screenings: 09/01/2023 8:00 AM 03/06/2024 1:37 PM GABRIELA-7 GABRIELA-7 Score 3 10 09/25/2019 5:00 PM PHQ-9 PHQ-9 Total Score 6 documented in this [id number] History of Present illness Narrative* Sussy Degroot MA - 04/28/2024 1:46 PM EDT Images from the original note were not included. This [facility] qa manager attempted to contact patient regarding referral to BHI program placed by PCP at request of [facility]. The patient did not answer. Voice mail message was left with request for return call.First attempt. [phone] Behavioral Health Screenings: 09/01/2023 8:00 AM 03/06/2024 1:37 PM GABRIELA-7 GABRIELA-7 Score 3 10 09/25/2019 5:00 PM PHQ-9 PHQ-9 Total Score 6 documented in this [id number] Evaluation + Plan note* Assessment & Plan [...] flag symptoms discussed Referral placed to counseling [id number] Miscellaneous Notes* Assessment & Plan Note - [...] Referral placed to counseling documented in this [id number] History of Present illness Narrative* Keyla Meneses CNP - 04/27/2024 7:57 AM EDT Subjective Patient [...] - none, No current conception plans. LMP 15. Regular menses. Caffeine - None Counseling - [...] Tb24 Other Relevant Orders Ambulatory Ref to [place] [facility] Professional Organizer For any new medication prescribed today, patient was educated about indications for the medication,how to take the medication and potential side effects of the medication. Referral was put in today, please allow 1-2 weeks until the specialist office contacts you. Return in about 2 years (around 04/27/2026) for Recheck - anxiety/depression . documented in this [id number] Instructions* Patient Instructions* Maria Antonia Ayala LPN - 04/27/2024 7:53 AM EDT Feedback Our goal is to provide you with exceptional patient care, and we strive to do this for every patient, every visit. Since we care about you and your experience, you may receive a patient satisfaction survey in the mail, via email or text message from [employer] We truly welcome your feedback, positive and [...] call at or send the provider a Colingot message and we will be happy to assist. Advanced Imaging (MRI, CT, etc.) If your provider ordered advanced imaging during your visit today, you will be contacted by [facility] Central Scheduling. If you would prefer to [...] concerned about them, you will receive a Meebler message with these results. If your labs are abnormal or critical, you will receive a phone call with your results. If you have not heard anything about your lab results after 5 business days, please give our office a call at or send the provider a [employer]ingot message and we will be happy to [...] call at or send the provider a Meebler message and allow up to 2 business days for us to complete this. If your insurance requires your medication(s) to be prior authorized, we will work with your insurance company to get these medication(s) prior authorized for you. Please allow up to 7-10 business days for this to be completed. BlueStacks is a wonderful way to communicate with your provider and often allows for quicker response times compared to calling our office. Please consider sending your provider a Meebler message with your non-urgent questions, medication refill requests, or even to schedule an appointment. Please do not use Meebler to send any messages requiring urgent or [...] speak to the provider on-call or call 211. Important Numbers Billing Questions or MyChart Support or Medical Financial Assistance Central Scheduling or Thank you for choosing [facility] for your healthcare needs documented in this [id number] Evaluation + Plan note* Assessment & Plan Note - Keyla Meneses CNP - 04/06/2024 10:25 AM EDT Associated Problem(s): Anxiety Chronic. Poorly controlled. Increase prozac to 20 mg. Obtain Gene Sight Encouraged exploring counseling Continue to optimize healthy habits - sleep/diet/exercise Continue stress relieving techniques [id number] Miscellaneous Notes* Assessment & Plan Note - Keyla Meneses CNP - 04/06/2024 10:25 AM EDTAssociated Problem(s): Anxiety Chronic. Poorly controlled. Increase prozac to 20 mg. Obtain Gene Sight Encouraged exploring counseling Continue to optimize healthy habits - sleep/diet/exercise Continue stress relieving techniques documented in this [id number] History of Present illness Narrative* Keyla Meneses CNP - 04/06/2024 8:26 AM EDT Subjective Patient [...] for follow-up anxiety . documented in this [id number] Evaluation + Plan note* Assessment & Plan Note - Keyla Meneses CNP - 03/06/2024 2:16 PM EDT Associated Problem(s): Anxiety Chronic. Poorly controlled Most recent labs reviewed Start prozac. Discussed counseling options, if interested Optimize healthy habits - sleep/diet/exercise Continue cognitive behavioral stress relief techniques [id number] Miscellaneous Notes* Assessment & Plan Note - Keyla Meneses CNP - 03/06/2024 2:16 PM EDTAssociated Problem(s): Anxiety Chronic. Poorly controlled Most recent labs reviewed Start prozac. Discussed counseling options, if interested Optimize healthy habits - sleep/diet/exercise Continue cognitive behavioral stress relief techniques documented in this [id number] History of Present illness Narrative* Keyla Meneses CNP - 03/06/2024 1:48 PM EDT Subjective Patient ID: Drake Petty is a 29 y.o. female here to establish care. Previously followed with Shivam Henry CNP. Specialist: Endocrinology: Dr. Green HPI Anxiety: Chronic. Symptoms include easily angered/easily reactive, [...] other people? Somewhat difficult documented in this [id number] History of Present illness Narrative* SPENCER Donohue - 12/17/2023 9:00 AM EDT URGENT CARE eNCOUnter CHIEF COMPLAINT Headache and Sinus Pain (Was sick with viral illness 1.5 wk ago. Has had head sinus pain x4days. OTC not helping) HPI Drake Petty is a 28 y.o. female [...] each nostril daily 11.1 mL 0 Lancets ([employer] Plus Rtzwal14I) Misc Use with glucometer to check BS every morning and then two hours after each meal. (Patient not taking: Reported on 09/21/2022) 120 Each 3 predniSONE 20 MG tablet Take 3 tabs daily x2 days then 2 tabs daily x2 days then 1 tab daily x2 days PO as directed (Patient not taking: Reported on 10/26/2023) 12 tablet 0 vnehziluhrzhunm-ybzxlnrhynoeaffa-sqcbVMXjumv (Capmist DM) 60-15-400 MG tablet Take 1 [...] Resource Strain: Low Risk (07/21/2023) Received from [facility] Overall Financial Resource Strain (CARDIA) Difficulty of Paying Living Expenses: Not hard at all Food Insecurity: No Food Insecurity (07/21/2023) Received from [facility] Hunger Vital Sign Worried About Running Out of Food in the Last Year: Never true Ran Out of Food in the Last Year: Never true Transportation Needs: No Transportation Needs (07/21/2023) Received from [facility] PRAPARE - Transportation Lack of Transportation (Medical): No Lack of Transportation (Non-Medical): No Physical Activity: Inactive (06/17/2022) Received from [facility] Exercise Vital Sign Days of Exercise per Week: 0 days Minutes of Exercise per Session: 0 min Stress: Stress Concern Present (06/17/2022) Received from [facility] [place] [facility] [employer] [facility] - Occupational Stress Questionnaire Feeling of Stress : To some extent Social Connections: Moderately Isolated (06/17/2022) Received from [facility] Social Connection and Isolation Panel [NHANES] Frequency of Communication with Friends and Family: More than three times a week Frequency of Social Gatherings with Friends and Family: Three times a week Attends Uatsdin Services: Never Active Member of Clubs or Organizations: No Attends Club or Organization Meetings: Never Marital Status: Intimate Partner Violence: Not At Risk (06/17/2022) Received from [facility] Humiliation, Afraid, Rape, and Kick questionnaire Fear of Current or Ex-Partner: No Emotionally Abused: No Physically Abused: No Sexually Abused: No Housing Stability: Low Risk (06/17/2022) Received from [facility] Housing Stability Vital Sign Unable to Pay [...] plan. SPENCER Donohue 12/17/2023 documented in this encounterBarney [facility] History of Present illness Narrative* SPENCER Donohue [...] Reported on 07/30/2022) 30 tablet 0 Lancets ([employer] Del[employer] Plus Glweas66Y) Misc Use with glucometer to check BS [...] taking: Reported on 10/26/2023) 12 tablet 0 xwxbhwoxmshhrgh-gxhdmgxnhamutttp-dngpONDzpux (Capmist DM) 60-15-400 MG tablet Take 1 [...] Resource Strain: Low Risk (07/21/2023) Received from [facility] Overall Financial Resource Strain (CARDIA) Difficulty of Paying Living Expenses: Not hard at all Food Insecurity: No Food Insecurity (07/21/2023) Received from [facility] Hunger Vital Sign Worried About Running Out of Food in the Last Year: Never true Ran Out of Food in the Last Year: Never true Transportation Needs: No Transportation Needs (07/21/2023) Received from [facility] PRAPARE - Transportation Lack of Transportation (Medical): No Lack of Transportation (Non-Medical): No Physical Activity: Inactive (06/17/2022) Received from [facility] Exercise Vital Sign Days of Exercise per Week: 0 days Minutes of Exercise per Session: 0 min Stress: Stress Concern Present (06/17/2022) Received from [facility] [place] [facility] [employer] [facility] - Occupational Stress Questionnaire Feeling of Stress : To some extent Social Connections: Moderately Isolated (06/17/2022) Received from [facility] Social Connection and Isolation Panel [NHANES] Frequency of Communication with Friends and Family: More than three times a week Frequency of Social Gatherings with Friends and Family: Three times a week Attends Uatsdin Services: Never Active Member of Clubs or Organizations: No Attends Club or Organization Meetings: Never Marital Status: Intimate Partner Violence: Not At Risk (06/17/2022) Received from [facility] Humiliation, Afraid, Rape, and Kick questionnaire Fear of Current or Ex-Partner: No Emotionally Abused: No Physically Abused: No Sexually Abused: No Housing Stability: Low Risk (06/17/2022) Received from [facility] Housing Stability Vital Sign Unable to Pay [...] symptoms. SPENCER Donohue 12/07/2023 documented in this encounterBarney [facility]02-13-2024 History of Present illness Narrative* Lemuel Lee [...] Reported on 07/30/2022) 30 tablet 0 Lancets ([employer] Delica Plus Tvkweg33X) Misc Use with glucometer to check BS every morning and then two hours after each meal. (Patient not taking: Reported on 09/21/2022) 120 Each 3 predniSONE 20 MG tablet Take 3 tabs daily x2 days then 2 tabs daily x2 days then 1 tab daily x2 days PO as directed (Patient not taking: Reported on 10/26/2023) 12 tablet 0 xgkdqeiqcspccrj-djiswainpbvkjbff-chmmOVFxgbz (Capmist DM) 60-15-400 MG tablet Take 1 [...] Resource Strain: Low Risk (07/21/2023) Received from [facility] Overall Financial Resource Strain (CARDIA) Difficulty of Paying Living Expenses: Not hard at all Food Insecurity: No Food Insecurity (07/21/2023) Received from [facility] Hunger Vital Sign Worried About Running Out of Food in the Last Year: Never true Ran Out of Food in the Last Year: Never true Transportation Needs: No Transportation Needs (07/21/2023) Received from [facility] PRAPARE - Transportation Lack of Transportation (Medical): No Lack of Transportation (Non-Medical): No Physical Activity: Inactive (06/17/2022) Received from [facility] Exercise Vital Sign Days of Exercise per Week: 0 days Minutes of Exercise per Session: 0 min Stress: Stress Concern Present (06/17/2022) Received from [facility] [place] [facility] [employer] [facility] - Occupational Stress Questionnaire Feeling of Stress : To some extent Social Connections: Moderately Isolated (06/17/2022) Received from [facility] Social Connection and Isolation Panel [NHANES] Frequency of Communication with Friends and Family: More than three times a week Frequency of Social Gatherings with Friends and Family: Three times a week Attends Uatsdin Services: Never Active Member of Clubs or Organizations: No Attends Club or Organization Meetings: Never Marital Status: Intimate Partner Violence: Not At Risk (06/17/2022) Received from [facility] Humiliation, Afraid, Rape, and Kick questionnaire Fear of Current or Ex-Partner: No Emotionally Abused: No Physically Abused: No Sexually Abused: No Housing Stability: Low Risk (06/17/2022) Received from [facility] Housing Stability Vital Sign Unable to Pay [...] . Physical Exam Exam conducted with a data analytics analyst present. Constitutional: General: She is not in [...] gynecological exam Normal exam, pap done - [facility]-JOB COACH/JOB DEVELOPER, LIQUID BASED; Future 2. Cervical cancer screening Pap done. - [facility] CYT[facility]-JOB COACH/JOB DEVELOPER, LIQUID BASED; Future Return in about 1 year (around 10/26/2024) for with TK, Annual Exam. The documentation within this encounter was likely aided with Dragon, and electronic criminal research specialist device. Please excuse any errors or omissions that may not have been recognized at the time of this encounter. documented in this encounterBarney Children'[facility] Center01-17-2024 History of Present illness Narrative* Jelena Walter APRN-MED - 09/29/2023 4:15 PM EST HPI Drake [place] female 1995 presents to the [facility] with Chief Complaint Patient presents with Sore Throat Cough Nasal Congestion Had symptoms for [id number] Since with nasal congestion, sore throat, cough, [...] (Patient not taking: Reported on 07/30/2022) Lancets (Retrevo Delica Plus [id number]) Misc Use with glucometer to check BS every morning and then two hours after each meal. (Patient not taking: Reported on 09/21/2022) predniSONE 20 MG tablet Take 3 tabs daily x2 days then 2 tabs daily x2 days then 1 tab daily x2 days PO as directed ujtwuvlzkdgkylk-ayqejsnlzbrnfgct-vhgtVQMoczr (Capmist DM) 60-15-400 MG tablet Take 1 [...] file Stress: No Stress Concern Present (11/24/2021) [facility] [place] - Occupational Stress Questionnaire Feeling of Stress : Not at all Social Connections: Unknown (11/24/2021) Social Connection and Isolation Panel [NHANES] Frequency of Communication with Friends and Family: Once a week Frequency of Social Gatherings with Friends and Family: Not on file Attends Uatsdin Services: Not on file Active Member of [...] 108 (90 Base) MCG/ACT Aero Soln inhaler bdgpzgrwlyrxcfw-kullqdslejivhsjt-lseqIENhgct (Capmist DM) 60-15-400 MG tablet Azithromycin 250 [...] understands and agrees to proceed with plan. NATASHA Solis 09/29/2023 documented in this encounterBarney [facility]12[facility] History of Present illness Narrative* Татьяна Brooke CNP - 09/01/2023 8:31 AM EST Subjective Patient [...] if acne resolves .akw documented in this [id number] History of Present illness Narrative* Татьяна Brooke, LATHE SCALPER OPERATOR - 07/21/2023 3:30 PM EST Images from [...] other people? Somewhat difficult documented in this [id number] History of Present illness Narrative* SPENCER Donohue - 01/05/2023 9:30 AM EDT URGENT CARE eNCOUnter CHIEF COMPLAINT Sore Throat (Strep + on , prescribed penicillin not better. ), Cough, and Ear Pain [facility] Drake Petty is a 27 y.o. female [...] 30 tablet 0 Lancets (OneTouch Delica Plus Tkofwz86W) [facility] Use with glucometer to check BS every [...] worsening. SPENCER Donohue 01/05/2023 documented in this [facility]02-07-2023 History of Present illness Narrative* Lemuel [...] within this encounter was likely aided with [employer], and electronic criminal research specialist device. Please excuse any errors or omissions that may not have been recognized at the time of this encounter. documented in this encounterBarney [facility]12-01-2022 Miscellaneous Notes* Note - Janes Mcgovern RN - 08/13/2022 4:45 PM EST This note was copied from a baby's chart. Discharge instructions reviewed with parents at bedside. Parents educated on care, safe sleep, signs and symptoms to report to tank truck driver. Reinforced education about safe sleep and SIDS. [...] and nares clear. Mother and VS WDL. swaddled and resting in crib after assessment. [...] pump use/cleaning/frequency, breastmilk storage, handling, nipple care, [facility] Hotline, [facility] support group, formula preparation, cronobacter, positioning, paced [...] crib upon arrival back to the room. placed on mothers chest with nares and [...] facilitated and discussed options given to calm and give expressed milk afterfeeding. Patient instructed to call RN if needing assistance with calming techniques. Motherverbalizes an understanding. * Note [...] expression. Lanolin provided with instructions. Patient states systems consultant told her she should be using [...] rooming-in facilitated Parent/Child Attachment Promotion: attachment promoted yzuk-sj-rwjs positioning promoted parent-child separation minimized positive reinforcement provided role responsibility promoted rooming-in promoted wnxv-nz-fydy contact encouraged strengths emphasized taught/modeled caring behavior [...] Taken 08/12/20221999 Parent/Child Attachment Promotion: attachment promoted dhvo-ag-yzlw positioning promoted parent-child separation minimized positive reinforcement provided role responsibility promoted rooming-in promoted jjan-lh-yajm contact encouraged strengths emphasized taught/modeled caring behavior [...] rooming-in facilitated Parent/Child Attachment Promotion: attachment promoted jazg-uv-ohzf positioning promoted parent-child separation minimized positive reinforcement provided role responsibility promoted rooming-in promoted uqln-tm-kvro contact encouraged strengths emphasized taught/modeled caring behavior [...] Taken 08/12/20221999 Parent/Child Attachment Promotion: attachment promoted uhpv-fy-ddjr positioning promoted parent-child separation minimized positive reinforcement provided role responsibility promoted rooming-in promoted yjgx-qj-gebm contact encouraged strengths emphasized taught/modeled caring behavior [...] PM EST Water provided. * Note - EHNRY Holcomb - 08/12/2022 12:00 PM EST Help [...] AM EST Mother resting in bed holding . Assessments done at this time. IV removed. No distress noted in mother or . Mother states she is going to breastfeed infant and feels comfortable latching . Fresh water provided. Call light in reach. * Note - Olivia Blanco RN - 08/12/2022 4:54 AM EST This note was copied from a baby's chart. Assessment and vitals obtained on infant and mother. being held skin to skin with mother. shows no signs of distress. Tone: Extremities full flexed; edwards recoil Position: Nares and mouth uncovered and visible; neck midline. Mother denies any needs. Call light within mother's reach. * Note - Olivia Blanco RN - 08/12/2022 1:12 AM EST This note was copied from a baby's chart. Blood sugar obtained on . Infant voided and diaper changed by father. [...] chart. New blood sugar obtained on . 's blood sugar 47. Will continue to monitor. Assessment and vitals obtained on and mother. Infant lying comfortably in open crib. Infant shows no signs of distress. Mother denies [...] Showed parents how to syringe feed infant. Infant skin to skin while parents are syringefeeding . Will repeat blood sugar 30 minutes after the completion of the feed. * Note - Olivia Blanco RN - 08/11/2022 8:30 PM EST This note was copied from a baby's chart. Infant and mother moved over to room #204. placed on far side of room away from open doorway. swaddled and lying in open crib. Infant shows no signs of distress. Mother denies [...] with good recovery over last 10-12 contractions Lukeilart Almeida forceps applied in straight occiput anterior position Moderate to strong pull Low forceps vaginal delivery over midline episiotomy Oral nasopharynx suctioned on the perineum Vigorous male infant to maternal abdomen doing well No vaginal or cervical lacerations Second degree perineal laceration repair with 3-0 Vicryl suture Mother and infant doing well See below for weight and Apgars [facility] [[id number]] Delivery () Delivery date/time: 08/11/2022 5:36 PM [...] No Stem cell collection (by provider): No Measurements Apgars Living status: Apgars: 1 min.: [...] where baby moves. * Nursing Notes - Nannette Cardoza RN [...] ambulates to room 213. documented in this encounterBarney [facility] Center12-01-2022 Obstetrics Note* Note - Janes Mcgovern RN - 08/13/2022 4:45 PM EST This note was copied from a baby's chart. Discharge instructions reviewed with parents at bedside. Parents educated on care, safe sleep, signs and symptoms to report to tank truck driver. Reinforced education about safe sleep and SIDS. Mother verbalizes understanding. Mother of denies having any questions at this time. Infants VSWDL. Exclusively fed breast milk. Infant stooling and voiding without difficulty. Parents educated and encouraged to schedule follow up appointment tomorrow or as soon as possible. Infant carried by FOB in car seat. Car seat clicked into base in car. [id number] Obstetrics Note* Note - Janes Mcgovern RN - 08/13/2022 12:00 PM EST This note was copied from a baby's chart. Assessment completed at this time. Infant resting in crib. Chest rise noted on . Mouth and nares clear. Mother and infant VS WDL. Infant swaddled and resting in crib after assessment. Mother and father have no questions or concerns at this time. [facility] [employer] [facility] [id number] Obstetrics Note* Note - Minal Lee - [...] pump use/cleaning/frequency, breastmilk storage, handling, nipple care, [facility] Hotline, [facility] support group, formula preparation, cronobacter, positioning, paced bottle feeding, pacifier use,diet, deep latch/breast shaping. PLAN: Skin to skin, feed q 2 hours express after each feed for the next feed. Provide colostrum prior to or after latch for increase in output. Pump every other feed, right side. Latch on left [facility]12-01-2022 Obstetrics Note* Note - Janes Mcgovern RN - 08/13/2022 8:00 AM EST This note was copied from a baby's chart. Head to toe assessments performed on mother and at this time. Mother denies any pain and showing no signs of distress. resting in crib swaddled. VS WDL on mother and . Mother had no further concerns or questions. Call light within reach. [facility] [employer]12-01-2022 Hospital course Narrative* Lemuel Lee MD - 08/13/2022 7:07 AM EST Discharge [...] w/Device KIT As directed. OneTouch Delica Plus Teiabo91D MISC Use with glucometer to check BS [...] Lemuel Lee MD [address] [facility] [id number] Schedule an appointment as soon as possible for a visit in 6 week(s) Routine Post Exam documented in this [facility]12-01-2022 History of Present illness Narrative* Lemuel [...] release tomorrow 2. Breast-feeding documented in this encounterBarney [facility]12-01-2022 Obstetrics Note* Note - Janes Mcgovern RN - 08/13/2022 7:00 AM EST This note was copied from a baby's chart. Report received from Eneida Shah RN. Infant in nursery during report for circumcision. Finished recovery for and transferred back to bedside at 0710. ID bands checked with mother and father. Infant crying in crib upon arrival back to the room. placed on mothers chest with nares and mouth clear. Educated parents on circumcision care. Parents understood education with no further questions or concerns. Informed parents to call out for next diaper change to observe the circumsicion care. [facility]12-01-2022 Note* Nursing Notes - Eneida Wright RN - 08/13/2022 3:48 AM EST Patient , teary eyed states she is exhausted and only had 2 hours of sleep yesterday. Problem solving facilitated and discussed options given to calm and give expressed milk afterfeeding. Patient instructed to call RN if needing assistance with infant calming techniques. Motherverbalizes an understanding. [facility]12-01-2022 Obstetrics Note* Note - Eneida Wright RN [...] expression. Lanolin provided with instructions. Patient states systems consultant told her she should be using 21 mm flanges but patient was using spectra s1 and doesn't have that size. 21 mm size flanges provided with pumping kit. Instructed on use of hand pump and electric breast pump. Patient verbalizes an understanding. [facility]11-30-2022 Note* Plan of Care - Eneida Wright [...] rooming-in facilitated Parent/Child Attachment Promotion: attachment promoted jhgh-wn-zftd positioning promoted parent-child separation minimized positive reinforcement provided role responsibility promoted rooming-in promoted fhsi-hr-nbjf contact encouraged strengths emphasized taught/modeled caring behavior [...] Taken 08/12/20221999 Parent/Child Attachment Promotion: attachment promoted yque-eu-evtg positioning promoted parent-child separation minimized positive reinforcement provided role responsibility promoted rooming-in promoted jblj-td-oeql contact encouraged strengths emphasized taught/modeled caring behavior [...] rooming-in facilitated Parent/Child Attachment Promotion: attachment promoted xcug-ce-yzpr positioning promoted parent-child separation minimized positive reinforcement provided role responsibility promoted rooming-in promoted pqle-iv-gjsm contact encouraged strengths emphasized taught/modeled caring behavior [...] Taken 08/12/20221999 Parent/Child Attachment Promotion: attachment promoted iwko-kk-fwvs positioning promoted parent-child separation minimized positive reinforcement provided role responsibility promoted rooming-in promoted gqjo-br-dzkp contact encouraged strengths emphasized taught/modeled caring behavior [...] separation minimized encouragement offered diary/feeding log utilized [facility]11-30-2022 Obstetrics Note* Note - Laureen Garza RN - 08/12/2022 7:15 PM EST Bedside report with Tanja Wright RN. Mother resting in bed with no distress noted. swaddled andsleeping in open crib. [facility]11-30-2022 Obstetrics Note* Note - Laureen Garza RN - 08/12/2022 5:00 PM EST Assessments done at this time. Dinner ordered. Parents deny needs. Call light in reach. [facility]11-30-2022 Obstetrics Note* Note - Laureen Garza RN - 08/12/2022 4:45 PM EST Mother with no distress noted. Denies nipple pain. [facility] [facility] [id number] Obstetrics Note* Note - Minal Lee - [...] to feed on demand, skin to skin [facility] [employer] [id number] Obstetrics Note* Note - Laureen Garza RN - 08/12/2022 1:00 PM EST Mother holding infant and states she just finished for 20 minutes. Assessments done at this time. Pt eating lunch. Denies needs at this time. Call light in reach. [facility]* Nursing Notes - HENRY Holcomb - 08/12/2022 12:31 PM EST Water provided. [facility] [employer] [id number] Obstetrics Note* Note - HENRY Holcomb - 08/12/2022 12:00 PM EST Help me grow, declined. [facility] [employer] [id number] Obstetrics Note* Note - Laureen Garza RN - 08/12/2022 10:00 AM EST Viral Lee at bedside to assist with . [facility]11-30-2022 Obstetrics Note* Note - Minal Lee [...] demand, skin to skin, monitor eliminations [facility]11-30-2022 Note* Plan of Care - Laureen [...] of care (reference (Adult,Obstetrics,Pediatric) CPG). Outcome: Ongoing [facility]11-30-2022 Obstetrics Note* Note - Laureen Garza RN - 08/12/2022 8:30 AM EST Mother resting in bed holding infant. Assessments done at this time. IV removed. No distress noted in mother or infant. Mother states she is going to breastfeed infant and feels comfortable latching infant. Fresh water provided. Call light in reach. [facility]11-30-2022 Obstetrics Note* Note - Olivia Blanco RN - 08/12/2022 4:54 AM EST This note was copied from a baby's chart. Assessment and vitals obtained on infant and mother. being held skin to skin with mother. shows no signs of distress. Tone: Extremities full flexed; edwards recoil Position: Nares and mouth uncovered and visible; neck midline. Mother denies any needs. Call light within mother's reach. [facility]11-30-2022 Obstetrics Note* Note - Olivia Blanco RN [...] any needs. Call light within mother's reach. [facility] [employer] [id number] Obstetrics Note* Note - Olivia Blanco RN - 08/11/2022 11:40 PM EST This note was copied from a baby's chart. New blood sugar obtained on . 's blood sugar 47. Will continue to monitor. Assessment and vitals obtained on infant and mother. lying comfortably in open crib. Infant shows no signs of distress. Mother denies any needs. Call light within mother's reach. [facility] [employer] [id number] Obstetrics Note* Note - Olivia Blanco RN - 08/11/2022 10:50 PM EST This note was copied from a baby's chart. 's blood sugar 26 before . Glucose gel given. Mother attempted to breastfeed butinfant would not latch. Mother had colostrum in the fridge which she had hand expressed earlier. Showed parents how to syringe feed infant. skin to skin while parents are syringefeeding infant. Will repeat blood sugar 30 minutes after the completion of the feed. [facility] [employer] [id number] Obstetrics Note* Note - Olivia Blanco RN - 08/11/2022 8:30 PM EST This note was copied from a baby's chart. and mother moved over to room #204. placed on far side of room away from open doorway. Infant swaddled and lying in open crib. Infant shows no signs of distress. Mother denies any needs. Call light within mother's reach. [facility]11-29-2022 Obstetrics Note* Note - Olivia Blanco RN - 08/11/2022 7:00 PM EST This note was copied from a baby's chart. Report received from Shivam Savage RN. [facility]11-29-2022 Labor and delivery summary note* L&D Delivery Note - Lemuel Lee MD - 08/11/2022 6:03 PM EST Delivery Summary Patient progressed to complete/ complete with epidural and was allowed to push vertex progressed to a +2 to +3 station, occiput anterior De Souza catheter was removed Repetitive deep variable decelerations with good recovery over last 10-12 contractions Luikart Almeida forceps applied in straight occiput anterior position Moderate to strong pull Low forceps vaginal delivery over midline episiotomy Oral nasopharynx suctioned on the perineum Vigorous male infant to maternal abdomen doing well No vaginal or cervical lacerations Second degree perineal laceration repair with 3-0 Vicryl suture Mother and doing well See below for weight and Apgars [facility] [[id number]] Delivery (Bertrand) Delivery date/time: 08/11/2022 5:36 PM Sex: Male [...] No Stem cell collection (by provider): No Measurements Apgars Living status: Apgars: 1 min.: 5 min.: 10 min.: 15 min.: 20 min.: Skin color: Heart rate: Reflex irritability: Muscle tone: Respiratory effort: Total: Shoulder Dystocia Shoulder dystocia present?: No [facility]11-29-2022 Note* Nursing Notes - Citlaly Savage RN - 08/11/2022 5:[address] Lee at bedside [facility]11-29-2022 Note* Nursing Notes - Citlaly Savage RN - 08/11/2022 4:[address] Lee calls at this time requesting update on patient. Updated Dr. Lee that patient is complete. Dr. Lee instructs this RN to continue practice pushing with patient. [facility]11-29-2022 Note* Nursing Notes - Citlaly Savage [...] push to see where baby moves. [facility]11-29-2022 Note* Nursing Notes - Nannette Cardoza RN - 08/11/2022 2:[address] Lee calls back and gives order to restart pitocin at 14 in 10-15 minutes. [facility]11-29-2022 Note* Nursing Notes - Nannette Cardoza RN - 08/11/2022 2:43 PM EST Call placed to Dr. Lee in regards to prolong decel and interventions such as shutting off pitocin, position changes, vag check, oxygen and LR bolus. Will review strip and call back. [facility]11-29-2022 Note* Nursing Notes - Citlaly Savage RN - 08/11/2022 1:[address] Lee of patient's recent SVE. Dr. Lee instructs to check patient again in aboutan hour. [facility]11-29-2022 Note* Nursing Notes - Citlaly Savage RN - 08/11/2022 1:[address] Lee at bedside [facility]11-29-2022 Note* Nursing Notes - Citlaly Savage RN - 08/11/2022 12:42 PM EST Raven MANSFIELD at bedside for epidural placement [facility]11-29-2022 Note* Nursing Notes - Citlaly Savage RN - 08/11/2022 12:07 PM EST Assessment completed at this time, refer to flow sheet. Patient rating pain a 7/10 and requesting nubain at this time. Patient denies current needs. [facility] [facility] [id number] Note* Nursing Notes - Citlaly Savage RN - 08/11/2022 9:[address] Lee at bedside [facility]* Nursing Notes - Citlaly Savage RN - 08/11/2022 7:00 AM EST Assessment completed at this time, refer to flow sheet. Patient in bed, no distress noted. Patient denies current pain. Plan of care reviewed with patient, patient denies any questions at this time. Call light within reach. [facility] History and physical note* Lemuel Lee [...] time. External monitor: Baseline reassuring with good gwyn-gw-rxuu variability, accelerations noted, no decelerations, contractions every 3-4 minutes. Category 1 Assessment and Plan: 1. Intrauterine at 38 weeks 5 days 2. Favorable cervix at term 3. Gestational diabetes Plan: We will proceed with induction. Risks and benefits discussed and the patient desires to proceed. [facility] [employer] [id number] Note* Certification - Lemuel Lee MD - 08/11/2022 6:30 AM EST I certify that this patient requires inpatient services at this time. I anticipate the expected length of stay will include at least two midnights. Current treatment plan includes induction and delivery. Plans for post hospitalization care will be discharge to home. [facility] [employer]11-29-2022 History and physical note* Lemuel Lee MD [...] time. External monitor: Baseline reassuring with good wtln-jc-slbh variability, accelerations noted, no decelerations, contractions every 3-4 minutes. Category 1 Assessment and Plan: 1. Intrauterine at 38 weeks 5 days 2. Favorable cervix at term 3. Gestational diabetes Plan: We will proceed with induction. Risks and benefits discussed and the patient desires to proceed. documented in this [facility]11-29-2022 Note* Nursing Notes - Anusha Voss - 08/11/2022 6:[address] Lee at bedside to break water, perform a cervical exam, and place FSE. [facility] [employer] [id number] Note* Nursing Notes - Margot Arana RN - 08/11/2022 5:[address] Lee is OK with 0.9% NS for continuous IV fluids. [facility] [employer] [id number] Note* Nursing Notes - Anusha Voss - 08/11/2022 5:00 AM EST Assessment completed at this time. Pt resting comfortably in bed with equal chest expansion and unlabored breathing. Call light within reach. [facility] [employer] [id number] Note* Nursing Notes - Margot Arana RN - 08/11/2022 3:55 AM EST Urine and covid collected. Pt oriented to room. [facility] [employer] [id number] Note* Nursing Notes - Margot Arana RN - 08/11/2022 3:45 AM EST Patient ambulates onto unit. Height and weight obtained. Patient ambulates to room 213. [facility] [employer] [id number] History of Present illness Narrative* Ariella Nowak [...] Induction scheduled for 08/11/22. documented in this encounterBarney [facility]11-23-2022 NoteLemuel Lee MD 08/05/2022 8:14 AM Procedure: Non-Stress Test Indication: Diabetes in Findings: NST: Reactive with GBTBV, + Accelerations, No decelerations. No regular contractions. Cat 1.[facility] Procedure note* Lemuel Lee MD - 08/05/2022 7:40 AM ESTAssociated Order(s): [place] NON-STRESS TEST Pre-Procedure Diagnose(s): Diet controlled gestational diabetes mellitus (GDM) in third trimester Post-Procedure Diagnose(s): Diet controlled gestational diabetes mellitus (GDM) in third trimester Procedure: Non-Stress Test Indication: Diabetes in Findings: NST: Reactive with GBTBV, + Accelerations, No decelerations. No regular contractions. Cat1. [facility]11-[facility] Procedure note* Lemuel Lee MD - 08/05/2022 7:40 AM ESTAssociated Order(s): [place] NON-STRESS TEST Pre-Procedure Diagnose(s): Diet controlled gestational diabetes mellitus (GDM) in third trimester Post-Procedure Diagnose(s): Diet controlled gestational diabetes mellitus (GDM) in third trimester Procedure: Non-Stress Test Indication: Diabetes in Findings: NST: Reactive with GBTBV, + Accelerations, No decelerations. No regular contractions. Cat1. documented in this [facility]11-17-2022 History of Present illness Narrative* Ariella [...] on week of 08/10/22. documented in this [facility]11-17-2022 NoteLemuel Lee MD 07/30/2022 3:57 PM Procedure: Non-Stress Test Indication: Diabetes in Findings: NST: Reactive with GBTBV, + Accelerations, No decelerations. No regular contractions. Cat 1. [facility]11-17-2022 Procedure note* Lemuel Lee MD - 07/30/2022 3:10 PM ESTAssociated Order(s): OH NON-STRESS TEST Pre-Procedure Diagnose(s): Diet controlled gestational diabetes mellitus (GDM) in third trimester Post-Procedure Diagnose(s): Diet controlled gestational diabetes mellitus (GDM) in third trimester Procedure: Non-Stress Test Indication: Diabetes in Findings: NST: Reactive with GBTBV, + Accelerations, No decelerations. No regular contractions. Cat1. [facility]11-17-2022 Procedure note* Lemuel Lee MD - 07/30/2022 3:10 PM ESTAssociated Order(s): [place] NON-STRESS TEST Pre-Procedure Diagnose(s): Diet controlled gestational diabetes mellitus (GDM) in third trimester Post-Procedure Diagnose(s): Diet controlled gestational diabetes mellitus (GDM) in third trimester Procedure: Non-Stress Test Indication: Diabetes in Findings: NST: Reactive with GBTBV, + Accelerations, No decelerations. No regular contractions. Cat1. documented in this [facility]11-10-2022 History of Present illness Narrative* Ariella [...] FAZAL. NST reactive today. documented in this [facility]11-10-2022 Abiola Lee MD 07/23/2022 9:33 AM Procedure: Non-Stress Test Indication: Diabetes in Findings: NST: Reactive with GBTBV, + Accelerations, No decelerations. No regular contractions. Cat 1.[facility]11[facility]10[facility] Procedure note* Lemuel Lee MD - 07/23/2022 9:20 AM ESTAssociated Order(s): [place] NON-STRESS TEST Pre-Procedure Diagnose(s): Gestational diabetes mellitus (GDM) affecting third Post-Procedure Diagnose(s): Gestational diabetes mellitus (GDM) affecting third Procedure: Non-Stress Test Indication: Diabetes in Findings: NST: Reactive with GBTBV, + Accelerations, No decelerations. No regular contractions. Cat1. [facility]11-10-2022 Procedure note* Lemuel Lee MD - 07/23/2022 9:20 AM ESTAssociated Order(s): OH NON-STRESS TEST Pre-Procedure Diagnose(s): Gestational diabetes mellitus (GDM) affecting third Post-Procedure Diagnose(s): Gestational diabetes mellitus (GDM) affecting third Procedure: Non-Stress Test Indication: Diabetes in Findings: NST: Reactive with GBTBV, + Accelerations, No decelerations. No regular contractions. Cat1. documented in this encounterBar[facility] History of Present illness Narrative* Татьяна Brooke CNP - 07/21/2022 7:31 AM EST Images from [...] Females: Last Mammogram: N/A [facility] Last Dexa >65: N/A Hx of falls? [...] people? Somewhat difficult - documented in this [id number] History of Present illness Narrative* Ariella Nowak [...] this to be muscular. documented in this encounterBar[facility]-2022 NoteSNATASHA Alicea 07/17/2022 12:21 PM Procedure: Non-Stress Test Indication: Diabetes in Findings: NST: Reactive with GBTBV, + Accelerations, No decelerations. No regular contractions. Cat 1. [facility]11-04-2022 Procedure note* NATASHA Garcia - 07/17/2022 11:20 AM EDTAssociated Order(s): OH NON-STRESS TEST Procedure(s): OH NON-STRESS TEST Pre-Procedure Diagnose(s): Supervision of high risk in third trimester; Diet controlled gestational diabetes mellitus (GDM) in third trimester Post-Procedure Diagnose(s): Supervision of high risk in third trimester; Diet controlled gestational diabetes mellitus (GDM) in third trimester Procedure: Non-Stress Test Indication: Diabetes in Findings: NST: Reactive with GBTBV, + Accelerations, No decelerations. No regular contractions. Cat1. [facility]11-04-[facility] Procedure note* NATASHA Garcia - 07/17/2022 11:20 AM EDTAssociated Order(s): OH NON-STRESS TEST Procedure(s): OH NON-STRESS TEST Pre-Procedure Diagnose(s): Supervision of high risk in third trimester; Diet controlled gestational diabetes mellitus (GDM) in third trimester Post-Procedure Diagnose(s): Supervision of high risk in third trimester; Diet controlled gestational diabetes mellitus (GDM) in third trimester Procedure: Non-Stress Test Indication: Diabetes in Findings: NST: Reactive with GBTBV, + Accelerations, No decelerations. No regular contractions. Cat1. documented in this encounterBar[facility]10-[facility] History of Present illness Narrative* Shavonne Ba LPN - 07/13/2022 1:00 PM EDT 34.4, OB TX., Patient is 34.4 weeks . Per My Chart message she has right sided rib and under breast pain. Patient was advised she needs seen for an appointment today. OB Tx scheduled per [place]. * Josse Walter MD - 07/13/2022 1:00 PM EDT [facility] [place] 27 y.o. at 34w4d 1. gDM 2. BMI 33 Ms. Petty reports worsening right sided pain. She [...] Department Center 07/17/2022 11:00 AM CHIOMA GAL [id number] OB ULTRASOUND, AVG 043OU [facility] 07/17/2022 11:20 AM NATASHA Garcia 043OG [facility] documented in this [facility]10-27-2022 History of Present illness Narrative* Clara Gorman RN - 07/09/2022 9:00 AM EDT Edema of fingers and ankles reported. NST done for GDM. * Lemuel Lee MD - 07/09/2022 9:00 AM EDT Patient doing well. NO concerns. Good movement 1. GDM: Blood sugars remain well controlled on no meds. HgbA1C and OB ultrasound with next visit. NST reactive today. documented in this [facility]10-27-2022 NoteLemuel Lee MD 07/09/2022 9:06 AM Procedure: Non-Stress Test Indication: Diabetes in Findings: NST: Reactive with GBTBV, + Accelerations, No decelerations. No regular contractions. Cat 1. [facility]10-27-2022 Procedure note* Lemuel Lee MD - 07/09/2022 9:00 AM EDTAssociated Order(s): [place] NON-STRESS TEST Pre-Procedure Diagnose(s): Diet controlled gestational diabetes mellitus (GDM) in third trimester Post-Procedure Diagnose(s): Diet controlled gestational diabetes mellitus (GDM) in third trimester Procedure: Non-Stress Test Indication: Diabetes in Findings: NST: Reactive with GBTBV, + Accelerations, No decelerations. No regular contractions. Cat1. [facility]10-27-2022 Procedure note* Lemuel Lee MD - 07/09/2022 9:00 AM EDTAssociated Order(s): OH NON-STRESS TEST Pre-Procedure Diagnose(s): Diet controlled gestational diabetes mellitus (GDM) in third trimester Post-Procedure Diagnose(s): Diet controlled gestational diabetes mellitus (GDM) in third trimester Procedure: Non-Stress Test Indication: Diabetes in Findings: NST: Reactive with GBTBV, + Accelerations, No decelerations. No regular contractions. Cat1. documented in this [facility]10-17-2022 History of Present illness Narrative* Clara Gorman RN - 06/29/2022 9:30 AM EDT NST done today for GDM. * Lemuel Lee MD - 06/29/2022 9:30 AM EDT Patient doing well. No concerns. 1. GDM: Blood sugars well controlled on no meds. Next HgbA1C and ultrasound at approx 35 weeks. NSTreactive. documented in this [facility]10-17-2022 Abiola Lee MD 06/29/2022 9:59 AM Procedure: Non-Stress Test Indication: Diabetes in Findings: NST: Reactive with GBTBV, + Accelerations, No decelerations. No regular contractions. Cat 1.[facility]10-17-[facility] Procedure note* Lemuel Lee MD - 06/29/2022 9:30 AM EDTAssociated Order(s): [place] NON-STRESS TEST Pre-Procedure Diagnose(s): Gestational diabetes mellitus (GDM) affecting third Post-Procedure Diagnose(s): Gestational diabetes mellitus (GDM) affecting third Procedure: Non-Stress Test Indication: Diabetes in Findings: NST: Reactive with GBTBV, + Accelerations, No decelerations. No regular contractions. Cat1. [facility]10-17-2022 Procedure note* Lemuel Lee MD - 06/29/2022 9:30 AM EDTAssociated Order(s): OH NON-STRESS TEST Pre-Procedure Diagnose(s): Gestational diabetes mellitus (GDM) affecting third Post-Procedure Diagnose(s): Gestational diabetes mellitus (GDM) affecting third Procedure: Non-Stress Test Indication: Diabetes in Findings: NST: Reactive with GBTBV, + Accelerations, No decelerations. No regular contractions. Cat1. documented in this [facility]10-13-2022 History of Present illness Narrative* Clara Gorman RN - 06/25/2022 9:30 AM EDT NST done for GDM. * Lemuel Lee MD - 06/25/2022 9:30 AM EDT Patient doing well. No concerns 1. GDM: Blood sugars well controlled on no meds. Next HgbA1C and ultrasound at approx 35 weeks. NSTreactive. documented in this [facility]10-13-2022 Abiola Lee MD 06/25/2022 9:55 AM Procedure: Non-Stress Test Indication: Diabetes in Findings: NST: Reactive with GBTBV, + Accelerations, No decelerations. No regular contractions. Cat 1. [facility]10-13-2022 Procedure note* Lemuel Lee MD - 06/25/2022 9:30 AM EDTAssociated Order(s): OH NON-STRESS TEST Pre-Procedure Diagnose(s): Diet controlled gestational diabetes mellitus (GDM) in third trimester Post-Procedure Diagnose(s): Diet controlled gestational diabetes mellitus (GDM) in third trimester Procedure: Non-Stress Test Indication: Diabetes in Findings: NST: Reactive with GBTBV, + Accelerations, No decelerations. No regular contractions. Cat1. [facility]10-13-2022 Procedure note* Lemuel Lee MD - 06/25/2022 9:30 AM EDTAssociated Order(s): OH NON-STRESS TEST Pre-Procedure Diagnose(s): Diet controlled gestational diabetes mellitus (GDM) in third trimester Post-Procedure Diagnose(s): Diet controlled gestational diabetes mellitus (GDM) in third trimester Procedure: Non-Stress Test Indication: Diabetes in Findings: NST: Reactive with GBTBV, + Accelerations, No decelerations. No regular contractions. Cat1. documented in this [facility]10-06-2022 NoteOB ULTRASOUND PROCEDURE REFERRING PHYSICIAN: Dr. Lee TECHNOLOGIST: Radha Simon PROCEDURE PERFORMED BY: Radha Simon PROCEDURE DATE: 06/18/2022 INDICATIONS: Gestational diabetic PROCEDURE DETAILS: The lie is Vertex. EFW is 1677g, which is the 48.5 percentile. The umbilical artery S/D ratio is 2.85. The heart rate is 130 bpm. [facility]10-06-2022 History of Present illness Narrative* Ariella Nowak [...] S/D ratio. Patient has seen dietitian and inclusion special educator. documented in this encounterBarney [facility]10-[facility]-2022 NoteLemuel Lee MD 06/18/2022 10:31 AM Procedure: Non-Stress Test Indication: Diabetes in Findings: NST: Reactive with GBTBV, + Accelerations, No decelerations. No regular contractions. Cat 1. [facility]10-06-2022 Procedure note* Lemuel Lee MD - 06/18/2022 10:00 AM EDTAssociated Order(s): [place] NON-STRESS TEST Pre-Procedure Diagnose(s): Diet controlled gestational diabetes mellitus (GDM) in third trimester Post-Procedure Diagnose(s): Diet controlled gestational diabetes mellitus (GDM) in third trimester Procedure: Non-Stress Test Indication: Diabetes in Findings: NST: Reactive with GBTBV, + Accelerations, No decelerations. No regular contractions. Cat1. [facility]10-06-2022 Procedure note* Lemuel Lee MD - 06/18/2022 10:00 AM EDTAssociated Order(s): [place] NON-STRESS TEST Pre-Procedure Diagnose(s): Diet controlled gestational diabetes mellitus (GDM) in third trimester Post-Procedure Diagnose(s): Diet controlled gestational diabetes mellitus (GDM) in third trimester Procedure: Non-Stress Test Indication: Diabetes in Findings: NST: Reactive with GBTBV, + Accelerations, No decelerations. No regular contractions. Cat1. documented in this encounterBarney [facility]10-[facility]-2022 History of Present illness Narrative* Татьяна Villegas RN - 06/17/2022 3:27 PM EDT [facility] DIABETES SELF-MANAGEMENT EDUCATION AND SUPPORT PROGRAM [...] and Family: Three times a week Attends [employer] Services: Never Active Member of Clubs or [...] Current/Pertinent Medications: Current Outpatient [facility] Medication Sig Dispense Refill cholecalciferol, [...] tablet by mouth daily . No current [facility]-ordered facility-administered medications on file. SMBG [...] to test and when to contact her HOT MAN, kick counting. Tips given for more comfortable [...] the referring healthcare provider. documented in this [id number] History of Present illness Narrative* Marianna Lauren, RD - 06/16/2022 8:00 AM EDT Patient [...] results today. All wnl except after eating [place] food which included higher carbohydr ate content. 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 Lives w/ . Denies N/V/D; has constipation occasionally. C/o heartburn with long periods without food during the day. Pt reports adjusting eating since GDM dx and has reduced carbohydrate intake and including more snacks to prevent heartburn. Primary Support - Food Prep - self Grocery Shopping - self Cultural or [employer] Dietary Needs - none Pertinent Food/Drug Interactions [...] prescription for Current Outpatient Medications [facility] Medication Sig Dispense Refill metFORMIN (GLUCOPHAGE) 500 MG tablet Take 1 (one) tablet (500 mg total) by mouth daily with breakfast . 30 tablet 11 No current [facility]-ordered facility-administered medications on file. Pt [...] true [0.00] Estimated Nutritional Needs: Calorie Needs: [id number] (20-23 kcal/kg + 450 for 3rd trimester) [...] the referring healthcare provider. documented in this [id number] History of Present illness Narrative* Shavonne Ba LPN - 05/22/2022 2:00 PM EDT 27.1, OB TX. Has not felt the baby move since last night. * Josse Walter MD - 05/22/2022 2:00 PM EDT [facility] [place] 27 y.o. at 27w1d Uncomplicated Ms. Petty [...] 043OG [facility] 06/03/2022 10:00 AM CHIOMA LORENA [id number] OB ULTRASOUND, AVG 043OU [facility] 06/11/2022 9:30 AM Josse Walter MD 043OG [facility] documented in this encounterBar[facility]09[facility] Procedure note* Josse Walter MD - 05/22/2022 2:00 PM EDTAssociated Order(s): [place] NON-STRESS TEST Procedure(s): OH NON-STRESS TEST Pre-Procedure Diagnose(s): Decreased movement, second trimester, fetus 1 Post-Procedure Diagnose(s): Decreased movement, second trimester, fetus 1 Non-stress Test Gestational age: 27w1d Indication: Decreased movement Baseline: 140 bpm 10x10s: N/A Variability: moderate Decelerations: absent Contractions: absent Duration >20 minutes Comments: Reassuring for gestational age 0905/22/22 Josse Walter MD [facility]09-09-2022 Procedure note* Josse Walter MD - 05/22/2022 2:00 PM EDTAssociated Order(s): [place] NON-STRESS TEST Procedure(s): OH NON-STRESS TEST Pre-Procedure Diagnose(s): Decreased movement, second trimester, fetus 1 Post-Procedure Diagnose(s): Decreased movement, second trimester, fetus 1 Non-stress Test Gestational age: 27w1d Indication: Decreased movement Baseline: 140 bpm 10x10s: N/A Variability: moderate Decelerations: absent Contractions: absent Duration >20 minutes Comments: Reassuring for gestational age 0905/22/22 Josse Walter MD documented in this encounterBarney [facility]08-18-2022 History of Present illness Narrative* Ariella Nowak LPN - 04/30/2022 10:30 AM EDT 24.0 here for CAITIE with US for outflow tracts. Reports good FM. Denies any VB or cramping. Third trimester paperwork/education reviewed, glucola and instructions given. * Lauren Perez APRN-MED - 04/30/2022 10:30 AM EDT Pt doing well. Denies concerns. 1. Anatomy not previously seen on scan - outflow tracts seen today, no further US f/u needed. 2. Verbal and written glucose instructions given for next appt. Pt verbalizes understanding. 3. Discussed tdap for next appt and pt will think about. documented in this encounterBarney [facility]07-28-2022 Note20 WEEK OB ULTRASOUND PROCEDURE REFERRING PHYSICIAN: [...] no previa noted. Normal fluid amount noted. [facility]07-28-2022 History of Present illness Narrative* Shavonne Ba LPN - 04/09/2022 10:30 AM EDT 21.0, Anatomy scan. * Josse Walter MD - 04/09/2022 10:30 AM EDT [facility] [place] 27 y.o. at 21w0d Uncomplicated She reports burning with urination, but this resolves with adequate hydration. She was advised to call if symptoms persist. Today: Normal anatomy, but unable to see outflow tracts. - Return OB visit in 3 weeks with U/S for outflow tracts. documented in this encounterBarney [facility]06-30-2022 History of Present illness Narrative* Ariella Nowak [...] Patient tolerated venipuncture well. documented in this [facility]06-30-2022 Miscellaneous Notes* Addendum Note - Clara Gorman RN - 03/12/2022 3:00 PM EDTAddended by: CLARA GORMAN on: 03/12/2022 03:53 PM Modules accepted: Orders * Addendum Note - Clara Gorman RN - 03/12/2022 3:00 PM EDTAddended by: CLARA GORMAN on: 03/12/2022 04:14 PM Modules accepted: Orders documented in this [facility]06-30-2022 Note* Addendum Note - Clara Gorman RN - 03/12/2022 3:00 PM EDTAddended by: CLARA GORMAN on: 03/12/2022 03:53 PM Modules accepted: Orders [facility]06-30-2022 Note* Addendum Note - Clara Gorman RN - 03/12/2022 3:00 PM EDTAddended by: CLARA GORMAN on: 03/12/2022 04:14 PM Modules accepted: Orders [facility]05-23-2022 History of Present illness Narrative* Josse Walter MD - 02/02/2022 2:50 PM EDT [facility] [place] 26 y.o. at 11w4d 1. Rh neg [...] Time Provider Department Center 03/12/2022 2:30 PM [facility] [id number] OB ULTRASOUND, AVG 043OU [facility] 03/12/2022 3:00 PM Lemuel eLe MD 043OG [facility] documented in this encounterBarney [facility]04-29-2022 History of Present illness Narrative* Ariella Nowak [...] visit in 2-3 weeks. documented in this encounterBarney [facility]04-06-2022 History of Present illness Narrative* Lemuel Lee [...] Friends and Family: Not on file Attends [employer] Services: Not on file Active Member of [...] was likely aided with Dragon, and electronic criminal research specialist device. Please excuse any errors or omissions that may not have been recognized at the time of this encounter. documented in this encounterBarney [facility]03-14-2022 History of Present illness Narrative* Lemuel Lee [...] workup. 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 Patient does have an element of PCO [...] within this encounter was likely aided with Graphene Frontierson, and electronic criminal research specialist device. Please excuse any errors or omissions that may not have been recognized at the time of this encounter. documented in this encounterBarney [facility] CenterEvaluation note* Diagnosis Infertility associated with anovulation- Primary Female infertility associated with anovulation documented [facility]* Diagnosis Pelvic pain in , antepartum, first trimester- Primary [facility]* Diagnosis 8 weeks gestation of - Primary state, incidental [facility] Diagnosis 8 weeks gestation of state, incidental [facility]* Diagnosis Dysuria- Primary [facility]* Diagnosis Ultrasound scan done for inability to hear heart tones Abnormality in heart rate/rhythm, antepartum condition or complication [facility]* Diagnosis Encounter for supervision of normal first in second trimester- Primary Supervision of normal first 17 weeks gestation of state, incidental [facility]* Diagnosis care in second trimester- Primary [facility] in this [facility]* Diagnosis 20 weeks gestation of state, incidental [facility]* Diagnosis Encounter for supervision of normal first in second trimester- Primary Supervision of normal first 24 weeks gestation of state, incidental [facility]* Diagnosis Encounter for follow-up ultrasound of anatomy [facility]* Diagnosis Decreased movements in second trimester, single or unspecified fetus- Primary [facility]* Diagnosis Diet controlled gestational diabetes mellitus (GDM) in third trimester [facility]* Diagnosis Diet controlled gestational diabetes mellitus (GDM), antepartum [facility] Diagnosis Diet controlled gestational diabetes mellitus (GDM), antepartum- Primary [facility]* Diagnosis Diet controlled gestational diabetes mellitus (GDM) in third trimester- Primary Encounter for supervision of high risk in third trimester, antepartum 31 weeks gestation of state, incidental Ultrasound scan done for inability to hear heart tones Abnormality in heart rate/rhythm, antepartum condition or complication [facility]* Diagnosis Diet controlled gestational diabetes mellitus (GDM) in third trimester- Primary Encounter for supervision of high risk in third trimester, antepartum 32 weeks gestation of state, incidental [facility] Diagnosis Diet controlled gestational diabetes mellitus (GDM) in third trimester- Primary Encounter for supervision of high risk in third trimester, antepartum 32 weeks gestation of state, incidental [facility]* Diagnosis Diet controlled gestational diabetes mellitus (GDM) in third trimester- Primary Encounter for supervision of high risk in third trimester, antepartum 34 weeks gestation of state, incidental documented in this encounter [facility]* Diagnosis RUQ pain- Primary Abdominal pain, right upper quadrant Abnormal maternal glucose tolerance, antepartum Diet controlled gestational diabetes mellitus (GDM) in third trimester documented in this encounter [facility]* Diagnosis Supervision of high risk in third trimester- Primary Unspecified high-risk Diet controlled gestational diabetes mellitus (GDM) in third trimester 35 weeks gestation of state, incidental [facility] Diagnosis Preventative health care- Primary Routine general medical examination at a health care facility [facility] Diagnosis Diet controlled gestational diabetes mellitus (GDM) in third trimester- Primary Supervision of high risk in third trimester Unspecified high-risk 36 weeks gestation of state, incidental documented in this encounter [facility]* Diagnosis Diet controlled gestational diabetes mellitus (GDM) in third trimester- Primary Supervision of high risk in third trimester Unspecified high-risk 37 weeks gestation of state, incidental [facility] Diagnosis Diet controlled gestational diabetes mellitus (GDM) in third trimester- Primary Supervision of high risk in third trimester Unspecified high-risk 37 weeks gestation of state, incidental documented in this encounter [facility]* Diagnosis (spontaneous vaginal delivery)- Primary Normal delivery Diet controlled gestational diabetes mellitus (GDM) in third trimester Encounter for induction of labor Encounter for induction of labor documented in this encounter [facility] SystemEvaluation note* Diagnosis Disruption of episiotomy wound in the puerperium- Primary Disruption of perineal wound, unspecified as to episode of care in documented in this encounter [facility] SystemEvaluation note* Diagnosis Viral URI with cough- Primary Acute upper respiratory infections of unspecified site Acute cough [facility] Diagnosis Preventative health care- Primary Routine general medical examination at a health care facility Anxiety Anxiety state, unspecified [facility] Diagnosis Anxiety- Primary Anxiety state, unspecified [facility] Diagnosis Acute bronchitis, unspecified organism- Primary Acute cough [facility] Diagnosis Well woman exam with routine gynecological exam- Primary Routine gynecological examination Cervical cancer screening Screening for malignant neoplasm of the cervix documented [facility]* Diagnosis Sore throat- Primary Acute pharyngitis documented in this encounter [facility] note* Diagnosis Acute non-recurrent frontal sinusitis- Primary [facility]* Diagnosis Anxiety- Primary Anxiety state, unspecified documented in this encounter [facility] note* Diagnosis Anxiety- Primary Anxiety state, unspecified Chronic fatigue Other malaise and fatigue documented in this encounter [facility] note* Diagnosis Anxiety and depression- Primary documented in this encounter [facility] note* Diagnosis Anxiety and depression- Primary documented in this encounter [facility] note* Diagnosis Acute rhinosinusitis- Primary documented in this encounter [facility] Work Phone: Evaluation note* Diagnosis Anxiety and depression- Primary Anxiety and depression- Primary Unspecified mood (affective) disorder (HCC)- Primary as incidental finding documented in this encounter [facility] note* Diagnosis Anxiety and depression- Primary Anxiety and depression- Primary Unspecified mood (affective) disorder (HCC)- Primary documented in this encounter [facility] note* Diagnosis Anxiety and depression- Primary Anxiety and depression- Primary Anxiety and depression- Primary [facility] Attachments The following attachments cannot be sent through Care Everywhere. * : Vaginal Delivery (Icelandic) [facility]* Attachments The following attachments cannot be sent through Care Everywhere. * Infertility (Icelandic) [facility]* Attachments The following attachments cannot be sent through Care Everywhere. * URI (Upper Respiratory Infection): Viral (Icelandic) [facility]* Attachments The following attachments cannot be sent through Care Everywhere. * Acute Bronchitis or Chest Cold Care Instructions ([facility]) (Icelandic) [facility]* Attachments The following attachments cannot be sent through Care Everywhere. * Female Exams and Screenings ([facility]) ([place]ic) [facility] Att[facility]ments The following attachments cannot be sent through Care Everywhere. * Sinusitis: Acute (Icelandic) [facility] this [facility] Author Nel Ruff [facility] Note Date/Time April 27, 2025 11 :53am [facility] [address] [place] [address], [address] [place] [address] OFFICE VISIT Date of Service: 04/27/25 MR#: [id number] Acct: [id number] Name: DRAKE PETTY Rep #: [id number] : 1995 Provider: BRET Ruff Age/Sex: 30/F [place] [facility] [place]: Signed Intake Vital Signs 03/01/25 13:22 03/30/25 13:58 04/27/25 11:42 Height 5 ft 4 in 5 ft 4 in 5 ft 4 in Weight: 177 lb 7 oz BMI 30.4 BP 105/69 Intake Visit Reasons: 21 wk ob Chief Complaint: 21wk OB Inspector Canvas Products Required: No Is patient in pain?: No Allergies No Known Allergies Allergy (Verified 04/27/25 11:40) Medications ?Medication ?Instructions ?Recorded ?Confirmed ?Type lamotrigine 200 mg tablet 200 mg PO QDAY 01/02/2504/13 History PNV 153-FA 400 mcg-om3 35 mg-dha tab PO 01/11/2504/27 History 25 mg-epa 5 mg-fish oil chew tablet Last Menstrual Period: 11/09/24 : No PFSH PFSH Medical History Depression with anxiety PCOS (polycystic ovarian syndrome) Surgical History S/P wrist surgery S/P left knee surgery Family History Father Hypertension Mother Depression with anxiety Grandmother Diabetes Maternal Skin cancer, Onset Age: 75 Maternal Grandfather Diabetes Maternal Grandmother Diabetes Paternal Social History adopted: No household members: spouse and children housing: house number of children: 1 current occupational status: employed current occupation: FT-[employer] current occupational exposures/hazards: No pets and animals: [...] 5-6 times per week duration: 45-60 minutes/day carolann/gnosticist: None seatbelt use: always do you feel [...] full term forceps 6#10oz Male epidural [facility] Janelle Josue Delivery Date: 08/11/22 Last Updated by: Joslyn Gregory IOL, GDM HPI 21 wk ob Details: DRAKE PETTY is a 30 year old who presents for routine OB visit. OB Visit ASHLEE Calculator Estimated Delivery Date Method Current WG Current Estimate 09/04/25 Ultrasound #1 21w 3d Other Estimates 08/16/25 LMP (Certain) 24w 1d Expected Delivery Route/Plan Labor Preferences- CB/BF classes: [...] list details Initial Weight: 162 lb Date -?-?-?-?-?-?-?-?-?-?-?-?- EGA Weight BP Urine Prot -?-?-?-?-?-?-?-?-?-?-?-?- Glucose FHR FuHt Pres Dilation -?-?-?-?-?-?-?-?-?-?-?-?- Effaced St Visit Note 01/18/25 -?-?-?-?-?-?-?-?-?-?-?-?- 7w 2d 162 lb 2 oz (+2 oz) 122/79 -?-?-?-?-?-?-?-?-?-?-?-?- 151 -?-?-?-?-?-?-?-?-?-?-?-?- KW-CRL not cons with dates. ASHLEE changed. will plan NOB labs next visit. 03/01/25 -?-?-?-?-?-?-?-?-?-?-?-?- 13w 2d 166 lb (+4 lb) 111/70 Negative -?-?-?-?-?-?-?-?-?-?-?-?- Negative 158 -?-?-?-?-?-?-?-?-?-?-?-?- JV- no lof, vagi nal bleeding, or cramping. NIPT and new ob labs to be done t [facility]. 03/30/25 -?-?-?-?-?-?-?-?-?-?-?-?- 17w 3d 169 lb 4 oz (+7 lb 4 oz) 116/72 Negative -?-?-?-?-?-?-?-?-?-?-?-?- Negative 145 -?-?-?-?-?-?-?-?-?-?-?-?- SM- no vb lof cr amping 04/27/25 -?-?-?-?-?-?-?-?-?-?-?-?- 21w 3d 177 lb 7 oz (+15 lb 7 oz) 105/69 Negative -?-?-?-?-?-?-?-?-?-?-?-?- Negative 140 21 -?-?-?-?-?-?-?-?-?-?-?-?- KW- no vb/crampi ng. US scheduled for low lying placenta. ACOG First Trimester First Trimester: Desire for , Alcohol, Tobacco Cessation, Illicit/Recreational Drug/Substance Use, Intimate Partner Violence, Barriers to care, Unstable Housing, Communication Barriers, Environmental/Work Hazards, Anticipated Course of Care, Toxoplasmosis Precations, Use of Any medications, Sexual activity, Exercise, Dental Care, Sauna/Hot tub use, Seat Belt use, Childbirth classes/Hospital facilities, Travel, Indications for Ultrasound and Screening for Aneuploidy; Discussed Second Trimester Second Trimester: Signs and Symptoms of Labor, Selecting a care provider, Reproductive Life Planning & Contreception, Care Planning, Depression/Anxiety and Intimate Partner Violence; Discussed Tobacco Cessation Third Trimester Third Trimester: Pain Management Plans, Labor support person(s), Immediate Larc, Signs and Symptoms of Preeclampsia, Infant Feeding No , Bertrand Education and Family Medical Leave or Disability Forms ROS Const Reports system reviewed and no additional complaints, except as documented Eyes Reports system reviewed and no additional complaints, except as documented ENT Reports system reviewed and no additional complaints, except as documented Card Reports system reviewed and no additional complaints, except as documented Resp Reports system reviewed and no additional complaints, except as documented GI Reports system reviewed and no additional complaints, except as documented, Denies nausea and Denies vomiting Reports system reviewed and no additional complaints, except as documented Musc Reports system reviewed and no additional complaints, except as documented Skin/Breast Reports system reviewed and no additional complaints, except as documented Neuro Yes system reviewed and no additional complaints, except as documented Psych Reports system reviewed and no additional complaints, except as documented Endo Reports system reviewed and no additional complaints, except as documented Bucky/Lymph Reports system reviewed and no additional complaints, except as documented Aller/Immun Reports system reviewed and no additional complaints, except as documented Exam Const General: cooperative, healthy appearing and no acute distress Orientation: alert, awake and oriented x3 Neck Neck: normal visual inspection and full ROM Resp Effort & Inspection: normal respiratory effort, able to speak in complete sentences and symmetric chest movement GI Inspection: normal to inspection Palpation: soft and other Other: gravid Skin General: no rashes or lesions noted Neuro General: patient alert, patient awake and patient oriented x3 Cognition: normal cognition Speech: speech normal Gait: normal gait Motor: muscle tone normal throughout Extrem General: normal to inspection and full ROM Psych Appearance: grossly normal Mental Status: mental status grossly normal Mood: congruent mood Affect: normal affect Speech and Movement: speech and movement normal Attitude: cooperative Thought Process: normal Thought Content: normal Judgment: judgment good Results POC Urinalysis 2 Dip (Clinic) Office Urine Glucose Negative Last Edit by Ping Engel on 04/27/25 11:47 Office Urine Protein Negative Last Edit by Ping Engel on 04/27/25 11:47 Coding Level of Care Code OB Routine Diagnoses Hx of forceps delivery in prior , currently O09.299 History of gestational diabetes mellitus (GDM) in prior , currently O09.299; Z86.32 21 weeks gestation of Z3A.21 Weeks of gestation: 21 weeks Supervision of high risk in first trimester O09. Trimester: first trimester PCOS (polycystic ovarian syndrome) E28.2 Depression with anxiety F41.8 Low lying placenta, antepartum O44.40 Assessment and Plan Assessment and Plan (1) Hx of forceps delivery in prior , currently : Status: Acute (2) History of gestational diabetes mellitus (GDM) in prior , currently : Status: Acute Comment: A1C (3) : Status: Acute Qualifiers: Weeks of gestation: 21 weeks Qualified Code(s): Z3A.21 - 21 weeks gestation of Comment: Panorama low risk, female. carrier neg. /14. ntd declined. (4) Supervision of high-risk : Status: Acute Qualifiers: Trimester: first trimester Qualified Code(s): O09.91 - Supervision of high risk , unspecified, first trimester Comment: PRR, , ASHLEE 09/04/25, girl SARITA Ellis, Josue (5) PCOS (polycystic ovarian syndrome): Status: Acute Comment: on metformin- seerosana rodriguez in [place] . stopped at first visit. (6) Depression with anxiety: Status: Acute Comment: sees psychiatrist-Dr. Fuentes-Does not meet criteria for diagnosis of bipolar (7) Low lying placenta, antepartum: Status: Acute Comment: follow up 28 weeks Orders: Orders POC Urinalysis 2 Dip (Clinic) Today Plan Details Additional Comments: ACOG trimester education reviewed and updated. see problem list details for updated plan management information and see below for orders placed at this visit. GA appropriate handout given. 04/27/25 1153 <Electronically signed by Nel wayne CNM> Date _ Nel Ruff CNM Cosigner Signature: Date (if applicable) CC: ~ [facility] Work Phone: Reason for referral (narrative)No reason for referral information availableWAshtabula General Hospital Work Phone: Assessments Diagnosis Weight gain - Primary Other symptoms concerning nutrition, metabolism, and development Pityriasis rosea Diagnosis Weight gain Other symptoms concerning nutrition, metabolism, and development Diagnosis PCOS (polycystic ovarian syndrome) Polycystic ovaries Diagnosis Weight gain Other symptoms concerning nutrition, metabolism, and development PCOS (polycystic ovarian syndrome) Polycystic ovaries Summary Purpose Family History No Family History Records Found Relationship Condition Age at Onset Recorded Date/T andres father Hypertension Unknown mother Anxiety with depression Unknown grandmother Diabetes mellitus Unknown Malignant neoplasm of skin 75 grandfather Diabetes mellitus Unknown Advance Directives No Advanced Directives Records FoundDocuments on File Type Date Recorded Patient Director Of Clinical Applications Expl anation Advance Directives and Living Will Documents on File Type Date Recorded Patient Director Of Clinical Applications Expl anation Advance Directives and Livin g Will 01/29/2020 3:41 PM Documents on File Type Date Recorded Patient Director Of Clinical Applications Expl anation Advance Directives/Living Will 08/11/2022 3:51 AM ADA History of Present Illness * Татьяна Brooke, LATHE SCALPER OPERATOR - 09/25/2019 5:36 PM EST Subjective Patient ID: Drake Almaraz is a 24 y.o. female. HPI Drake Is here today with a complaint of [...] will consider sending her to endocrinology in [place]. Electronically signed by Татьяна Brooke [facility] * Helen Shoemaker RN - 10/12/2019 4:35 [...] laser therapy. Acne can be treated with desn-egu-gmpxmkk medicines. Look for ones that have benzoyl [...] Log into your personal health record on [email or web address] and enter K559 in the Education box to learn more about Polycystic Ovary Syndrome: Care Instructions. Current as of: November 01, 2018 Content Version: 12.3 5318-1800 [employer]. Care instructions adapted under license by your healthcare professional. If you have questions about a medical condition or this instruction, always ask your healthcare professional. [employer] disclaims any warranty or liability for your [...] laser therapy. Acne can be treated with kkvc-lbe-fiqfpwc medicines. Look for ones that have benzoyl [...] Log into your personal health record on [email or web address] and enter K559 in the Education box to learn more about Polycystic Ovary Syndrome: Care Instructions. Current as of: November 01, 2018 Content Version: 12.3 6135-9848 [employer]. Care instructions adapted under license by your healthcare professional. If you have questions about a medical condition or this instruction, always ask your healthcare professional. [employer] disclaims any warranty or liability for your use of this information. documented in this encounter Reason for Referral Status Reason Specialty Diagnoses / Procedures Referred By Contact Referred To Contact Pending Review Specialty Services Required/Patie nt's Best Interest Endocrinology/M etabolism Diagnoses Weight gain PCOS (polycystic ovarian syndrome) Татьяна Brooke, MED [address] [place] [address] Emmanuelle Lopez MD [address] [facility] [address] [place] [address] Status Reason Specialty Diagnoses / Procedures Referred By Contact Referred To Contact Authorized Specialty Services Required/Patien t's Best Interest Endocrinology/M etabolism Diagnoses Weight gain PCOS (polycystic ovarian syndrome) Татьяна Brooke, MED [address] [place] [address] Specialty Diagnoses / Procedures Referred By Contac t Referred To Contact Diagnoses 8 weeks gestation of Procedures US OB DATING ABDOMINAL < 14WEEKS Josse Walter MD [address] [place] [phone] Referral ID Status Reason Start Date Expiration Date V isits Requested Visits Authorized [id number] Auth Not Needed 01/09/2022 02/03/2023 1 1 Referral ID Status Reason Start Date Expiration Date Visits Re quested Visits Authorized [id number] Closed 01/09/2022 02/03/2023 1 1 Specialty Diagnoses / Procedures Referred By Contac t Referred To Contact Diagnoses Ultrasound scan done for inability to hear heart tones Procedures US OB DATING ABDOMINAL < 14WEEKS Josse Walter MD [address] [place] [phone] Referral ID Status Reason Start Date Expiration Date V isits Requested Visits Authorized [id number] New Request 02/02/2022 02/27/2023 1 1 Specialty Diagnoses / Procedures Referred By Contac t Referred To Contact Diagnoses 20 weeks gestation of Procedures US OB ANATOMY Jessica, Josse C, MD [address] [place] [phone] Referral ID Status Reason Start Date Expiration Date Visits Re quested Visits Authorized [id number] Closed 03/19/2022 04/13/2023 1 1 Specialty Diagnoses / Procedures Referred By Contac t Referred To Contact Diagnoses Encounter for follow-up ultrasound of anatomy Procedures US OB LIMITED/AMNIOTIC FLUID Josse Walter MD [address] [place] [phone] Referral ID Status Reason Start Date Expiration Date Visits Re quested Visits Authorized [id number] Closed 04/13/2022 05/08/2023 1 1 Specialty Diagnoses / Procedures Referred By Contac t Referred To Contact Diagnoses Diet controlled gestational diabetes mellitus (GDM) in third trimester Procedures ECG Lemuel Lee MD [address] [facility] [address] [place] [phone] Referral ID Status Reason Start Date Expiration Date V isits Requested Visits Authorized [id number] New Request 06/11/2022 07/06/2023 1 1 Specialty Diagnoses / Procedures Referred By Contac t Referred To Contact Diagnoses Diet controlled gestational diabetes mellitus (GDM) in third trimester Procedures US OB GROWTH/DATING > 14WEEKS Lemuel Lee MD [address] [facility] [address] [place] [phone] Referral ID Status Reason Start Date Expiration Date Visits Re quested Visits Authorized [id number] Closed 06/11/2022 07/06/2023 1 1 Referral ID Status Reason Start Date Expiration Date V isits Requested Visits Authorized [id number] Auth Not Needed 07/09/2022 08/03/2023 1 1 Specialty Diagnoses / Procedures Referred By Contac t Referred To Contact Behavorist (Outpatient Social Work) Diagnoses Anxiety and depression Keyla Meneses, LATHE SCALPER OPERATOR [address] [place] [address] Referral ID Status Reason Start Date Expiration Date V isits Requested Visits Authorized [id number] Authorized 04/27/2024 04/27/2025 1 1 Specialty Diagnoses / Procedures Referred By Contac t Referred To Contact Psychiatry Diagnoses Anxiety and depression Keyla Meneses, LATHE SCALPER OPERATOR [address] [place] [address] [facility] [address] [place] [phone] Referral ID Status Reason Start Date Expiration Date V isits Requested Visits Authorized [id number] Authorized 05/18/2024 05/18/2025 1 1 Chief Complaint [...] Supervision of high-risk March 01, 2025 1:18pm Chief Complaint Admit Date Confirmation/Establish Care Ap ril 2024 8:21am NOB LMP 11/09January 18, 2025 8:46am 13 wk OB March 01, 2025 1:18 pm LAB March 01, 2025 1:54 pm Chief Complaint Admit Date Confirmation/Establish Care Ap ril 2024 8:21am NOB LMP 11/09January 18, 2025 8:46am 13 wk OB March 01, 2025 1:18 pm LAB March 01, 2025 1:54 pm 17 wk ob March 30, 2025 1:56 pm Reason for Visit Admit Date Supervision [...] Supervision of high-risk March 01, 2025 1:18pm Depression with anxiety March 30, 2025 1:56pm History of gestational diabe rommel mellitus (GDM) in prior , currentl March 30, 2025 1:56pm Hx of forceps delivery in prior pregnanc y, currently March 30, 2025 1:56pm PCOS (polycystic ovarian syndrome) March 30, 2025 1:56pm March 30, 2025 1:56 pm Supervision of high-risk March 30, 2025 1:56pm Chief Complaint Admit Date Confirmation/Establish Care Ap ril 2024 8:21am NOB LMP 11/09January 18, 2025 8:46am 13 wk OB March 01, 2025 1:18 pm LAB March 01, 2025 1:54 pm 17 wk ob March 30, 2025 1:56 pm 21 wk ob April 27, 2025 11 :38am Reason for Visit Admit Date Supervision of high-risk January 02, 2025 8:21am Depression with anxiety January 18, 2025 8: 46am History of gestational diabe rommel mellitus (GDM) in prior , currentl January 18, 2025 8:46am Hx of forceps delivery in pr ior , currently January 18, 2025 8:46am PCOS (polycystic ovarian syndrome) January 182024 8:46am January 18, 2025 8:46am Supervision of high-risk January 182024 8:46am Depression with anxiety March 01, 2025 1:18pm History of gestational diabe rommel mellitus (GDM) in prior , currentl March 01, 2025 1:18pm Hx of forceps delivery in pr ior , currently March 01, 2025 1:18pm PCOS (polycystic ovarian syndrome) March 01, 2025 1:18pm March 01, 2025 1:18 pm Supervision of high-risk March 01, 2025 1:18pm Depression with anxiety March 30, 2025 1:56pm History of gestational diabe rommel mellitus (GDM) in prior , currentl March 30, 2025 1:56pm Hx of forceps delivery in pr ior , currently March 30, 2025 1:56pm PCOS (polycystic ovarian syndrome) March 30, 2025 1:56pm March 30, 2025 1:56 pm Supervision of high-risk March 30, 2025 1:56pm Depression with anxiety April 27 11:38am History of gestational diabe rommel mellitus (GDM) in prior , currentl April 27, 2025 11:38am Hx of forceps delivery in pr ior , currently April 27, 2025 11:38am Low lying placenta, antepartum April 272024 11:38am PCOS (polycystic ovarian syndrome) [facility] 2024 11:38am April 27, 2025 11 :38am Supervision of high-risk [facility] 2024 11:38am Chief Complaint Admit Date 13 wk OB March 01, 2025 1:18 pm LAB March 01, 2025 1:54 pm 17 wk ob March 30, 2025 1:56 pm 21 wk ob April 27, 2025 11 :38am 25wk ob May 22, 2025 3:33pm Reason for Visit Admit Date Depression with anxiety March 01, 2025 1:18pm History of gestational diabe rommel mellitus (GDM) in prior , currentl March 01, 2025 1:18pm Hx of forceps delivery in pr ior , currently March 01, 2025 1:18pm PCOS (polycystic ovarian syndrome) March 01, 2025 1:18pm March 01, 2025 1:18 pm Supervision of high-risk March 01, 2025 1:18pm Depression with anxiety March 30, 2025 1:56pm History of gestational diabe rommel mellitus (GDM) in prior , currentl March 30, 2025 1:56pm Hx of forceps delivery in pr ior , currently March 30, 2025 1:56pm PCOS (polycystic ovarian syndrome) March 30, 2025 1:56pm March 30, 2025 1:56 pm Supervision of high-risk March 30, 2025 1:56pm Depression with anxiety April 27 11:38am History of gestational diabe rommel mellitus (GDM) in prior , currentl April 27, 2025 11:38am Hx of forceps delivery in pr ior , currently April 27, 2025 11:38am Low lying placenta, antepartum April 272024 11:38am PCOS (polycystic ovarian syndrome) [facility] 2024 11:38am April 27, 2025 11 :38am Supervision of high-risk [facility] 2024 11:38am Depression with anxiety May 22, 2 025 3:33pm History of gestational diabe rommel mellitus (GDM) in prior , currentl May 22, 2025 3:33pm Hx of forceps delivery in pr ior , currently May 22, 2025 3:33pm Low lying placenta, antepartum May 22, 2025 3:33pm PC[facility] (polycystic ovarian syndrome) [facility] 3:33[facility] May 22, 2025 3:33pm Supervision of high-risk [facility] 2024 3:33pm Chief Complaint Admit Date 13 wk OB March 01, 2025 1:18 pm LAB March 01, 2025 1:54 pm 17 wk ob March 30, 2025 1:56 pm 21 wk ob April 27, 2025 11 :38am 25wk ob May 22, 2025 3:33pm 28wk ob/glucose June 13, 2025 3: 09pm Reason for Visit Admit Date Depression with anxiety March 01, 2025 1:18pm History of gestational diabe rommel mellitus (GDM) in prior , currentl March 01, 2025 1:18pm Hx of forceps delivery in pr ior , currently March 01, 2025 1:18pm PCOS (polycystic ovarian syndrome) March 01, 2025 1:18pm March 01, 2025 1:18 pm Supervision of high-risk March 01, 2025 1:18pm Depression with anxiety March 30, 2025 1:56pm History of gestational diabe rommel mellitus (GDM) in prior , currentl March 30, 2025 1:56pm Hx of forceps delivery in pr ior , currently March 30, 2025 1:56pm PCOS (polycystic ovarian syndrome) March 30, 2025 1:56pm March 30, 2025 1:56 pm Supervision of high-risk March 30, 2025 1:56pm Depression with anxiety April 27 11:38am History of gestational diabe rommel mellitus (GDM) in prior , currentl April 27, 2025 11:38am Hx of forceps delivery in pr ior , currently April 27, 2025 11:38am PCOS (polycystic ovarian syndrome) Aug[facility] t 2024 11:38am April 27, 2025 11 :38am Supervision of high-risk Augus t 2024 11:38am Low lying placenta, antepartum April 272024 11:38am Depression with anxiety May 22 3:33pm History of gestational diabe rommel mellitus (GDM) in prior , currentl May 22, 2025 3:33pm Hx of forceps delivery in pr ior , currently May 22, 2025 3:33pm PCOS (polycystic ovarian syndrome) [facility] 2024 3:33pm May 22, 2025 3:33pm Supervision of high-risk [facility] 2024 3:33pm Low lying placenta, antepartum May 22, 2025 3:33pm Depression with anxiety June 13 3:09pm History of gestational diabe rommel mellitus (GDM) in prior , currentl June 13, 2025 3:09pm Hx of forceps delivery in pr ior , currently June 13, 2025 3:09pm PCOS (polycystic ovarian syndrome) [facility] 2024 3:09pm June 13, 2025 3: 09pm Supervision of high-risk Octob er 2024 3:09pm Low lying placenta, antepartum June 132024 3:09pm Chief Complaint Admit Date 17 wk ob March 30, 2025 1:56 pm 21 wk ob April 27, 2025 11 :38am 25wk ob May 22, 2025 3:33pm 28wk ob/glucose June 13, 2025 3: 09pm 30 WK OB June 25, 2025 3 :13pm Reason for Visit Admit Date Depression with anxiety March 30, 2025 1:56pm History of gestational diabe rommel mellitus (GDM) in prior , currentl March 30, 2025 1:56pm Hx of forceps delivery in pr ior , currently March 30, 2025 1:56pm PCOS (polycystic ovarian syndrome) March 30, 2025 1:56pm March 30, 2025 1:56 pm Supervision of high-risk March 30, 2025 1:56pm Depression with anxiety April 27 11:38am History of gestational diabe rommel mellitus (GDM) in prior , currentl April 27, 2025 11:38am Hx of forceps delivery in pr ior , currently April 27, 2025 11:38am PCOS (polycystic ovarian syndrome) Aug[facility] t 2024 11:38am April 27, 2025 11 :38am Supervision of high-risk Augus t 2024 11:38am Low lying placenta, antepartum April 272024 11:38am Depression with anxiety May 22, 3:33pm History of gestational diabe rommel mellitus (GDM) in prior , currentl May 22, 2025 3:33pm Hx of forceps delivery in pr ior , currently May 22, 2025 3:33pm PCOS (polycystic ovarian syndrome) [facility] 2024 3:33pm May 22, 2025 3:33pm Supervision of high-risk [facility] 2024 3:33pm Low lying placenta, antepartum May 22, 2025 3:33pm Depression with anxiety June 13 3:09pm History of gestational diabe rommel mellitus (GDM) in prior , currentl June 13, 2025 3:09pm Hx of forceps delivery in pr ior , currently June 13, 2025 3:09pm PCOS (polycystic ovarian syndrome) [facility] 2024 3:09pm June 13, 2025 3: 09pm Supervision of high-risk Oct[facility] er 2024 3:09pm Low lying placenta, antepartum June 132024 3:09pm Depression with anxiety June 25 3:13pm Gestational diabetes mellitu s (GDM) affecting , antepartum June 25, 2025 3:13pm History of gestational diabe rommel mellitus (GDM) in prior , currentl June 25, 2025 3:13pm Hx of forceps delivery in pr ior , currently June 25, 2025 3:13pm PCOS (polycystic ovarian syndrome) [facility] 2024 3:13pm June 25, 2025 3 :13pm Supervision of high-risk Octob er 2024 3:13pm Abnormal glucose affecting Oct camryn 2024 3:13pm Additional Source Comments INFORMATION SOURCE (unrecogn ized section and content) DATE CREATED AUTHOR 03/08/2018 [facility] DATE CREATED AUTHOR AUTHOR'S ORGANIZ ATION 04/23/2019 [facility] DATE CREATED AUTHOR AUTHOR'S ORGANIZ ATION 01/08/2023 [facility] DATE CREATED AUTHOR AUTHOR'S ORGANIZ ATION 12/10/2023 [facility] DATE CREATED AUTHOR AUTHOR'S ORGANIZ ATION 12/13/2023 [facility] DATE CREATED AUTHOR AUTHOR'S ORGANIZ ATION 06/19/2024 [facility] DATE CREATED AUTHOR AUTHOR'S ORGANIZ ATION 11/11/2024 [facility] DATE CREATED AUTHOR AUTHOR'S ORGANIZ ATION 06/18/2025 [facility] DATE CREATED AUTHOR AUTHOR'S ORGANIZ ATION 07/17/2025 [facility] DATE CREATED AUTHOR AUTHOR'S ORGANIZ ATION 07/25/2025 [facility] Reason for Visit (unrecogniz ed section and [...] DATING ABDOMINAL < 14WEEKS Josse Walter MD [address] [phone] Referral ID Status Reason Start Date Expiration Date Visits Re quested Visits Authorized [id number] Closed 01/09/2022 02/03/2023 1 1 Reason Comments Urinary Pain 11.4,Patient with dy suria, frequency, urgency Specialty Diagnoses / Procedures Referred By Contac t Referred To Contact Diagnoses Ultrasound scan done for inability to hear heart tones Procedures US OB DATING ABDOMINAL < 14WEEKS Josse Walter MD [address] [place] [phone] Referral ID Status Reason Start Date Expiration Date V isits Requested Visits Authorized [id number] New Request 02/02/2022 02/27/2023 1 1 Reason Comments 17.0 Reason Comments 21.0, Anatomy scan. Specialty Diagnoses / Procedures Referred By Contac t Referred To Contact Diagnoses 20 weeks gestation of Procedures US OB ANATOMY Josse Walter MD [address] [phone] Referral ID Status Reason Start Date Expiration Date Visits Re quested Visits Authorized [id number] Closed 03/19/2022 04/13/2023 1 1 Reason Comments Routine Visit Specialty Diagnoses / Procedures Referred By Contac t Referred To Contact Diagnoses Encounter for follow-up ultrasound of anatomy Procedures US OB LIMITED/AMNIOTIC FLUID Josse Walter MD [address] [phone] Referral ID Status Reason Start Date Expiration Date Visits Re quested Visits Authorized [id number] Closed 04/13/2022 05/08/2023 1 1 Reason Comments 27.1, OB TX. Has not felt the baby move since last night. Specialty Diagnoses / Procedures Referred By Contac t Referred To Contact Diagnoses Diet controlled gestational diabetes mellitus (GDM) in third trimester Procedures ECG Lemuel Lee MD [address] [phone] Referral ID Status Reason Start Date Expiration Date V isits Requested Visits Authorized [id number] New Request 06/11/2022 07/06/2023 1 1 Specialty Diagnoses / Procedures Referred By Contac t Referred To Contact Nutrition Diagnoses Diet controlled gestational diabetes mellitus (GDM), antepartum Lemuel Lee MD [address] [address] [facility] [address] [place] [phone] Referral ID Status Reason Start Date Expiration Date V isits Requested Visits Authorized [id number] Authorized 06/12/2022 06/12/2023 5 5 Reason Comments Diabetes Mellitus Specialty Diagnoses / Procedures Referred By Contac t Referred To Contact Nutrition Diagnoses Diet controlled gestational diabetes mellitus (GDM), antepartum Lemuel Lee MD [address] [place] [phone] [facility] [place] [address] Reason Comments 31.0 with growth US and NST for GDM Specialty Diagnoses / Procedures Referred By Contac t Referred To Contact Diagnoses Diet controlled gestational diabetes mellitus (GDM) in third trimester Procedures US OB GROWTH/DATING > 14WEEKS Lemuel Lee MD [address] [place] [phone] Referral ID Status Reason Start Date Expiration Date Visits Re quested Visits Authorized [id number] Closed 06/11/2022 07/06/2023 1 1 Reason Comments GDM with NST 32 week s Reason Comments 32.4 weeks with NST GDM Reason Comments 34 weeks GDM with NS T Reason Comments 34.4, OB TX., Maria Teresa rousseau is 34.4 weeks . Per My Chart [...] Contact Lemuel Lee MD [address] [place] [phone] [facility] Referral ID Status Reason Start Date Expiration Date Visits Re quested Visits Authorized [id number] 1 1 Reason Comments Follow-up Episiotomy wound [...] OTC not helping Reason Comments Establish Care Previous-Татьяна Wel ker, CNPLast year tx for GABRIELA medication treating some sxs but not all. Helped feel happier but didn't with anger/overwhelming x1-2 mo without medication Gap Closure (Health Maintenance) Tetanus : Every 10yrs Never doneLipid Panel Never doneHIV Screening Never doneHepatitis C Screening Never doneCOVID-19 Vaccine( season) Never done Reason Comments Anxiety Patient [...] done Reason Onset Date Comments Care coordination [facility] 04/28/2024 Reason Onset Date Comments Care coordination [facility] 05/05/2024 Reason Comments Anxiety Patient states that she feels disassociated. States that she does not feel any better. States that she is still having a lot of anger. States that she feels distant from family and friends Gap Closure (Health Maintenance) Tetanus : Every 10yrs Never doneLipid Panel Never doneHIV Screening Never doneHepatitis C Screening Never doneInfluenza Vaccine(1) due on 4COVID-19 Vaccine( season) Never done Reason Onset Date Comments Care coordination [facility] 05/19/2024 Reason Onset Date Comments Medication Refill 07/27/2024 Reason Onset Date Comments Medication Refill 10/02/2024 Reason Comments Sinus Problem Pt states sinus pres sure, congestion, and change in color of mucus. Pt states sx started Wednesday. Care Teams (unrecognized sec tion and content) Gang Ripsaw Operator Relationship Specialty Start Date End Date Anand Cooley DO PCP - General Family Medicine 04/21/17 Gang Ripsaw Operator Relationship Specialty Start Date End Date Anand Cooley DO PCP - General Family Medicine 04/21/17 Gang Ripsaw Operator Relationship Specialty Start Date End Date Anand Cooley DO PCP - General Family Medicine 04/21/17 Gang Ripsaw Operator Relationship Specialty Start Date End Date Anand Cooley DO PCP - General Family Medicine 04/21/17 Gang Ripsaw Operator Relationship Specialty Start Date End Date Anand Cooley DO PCP - General Family Medicine 04/21/17 Gang Ripsaw Operator Relationship Specialty Start Date End Date Anand Cooley DO PCP - General Family Medicine 04/21/17 Gang Ripsaw Operator Relationship Specialty Start Date End Date Anand Cooley DO PCP - General Family Medicine 04/21/17 Gang Ripsaw Operator Relationship Specialty Start Date End Date Anand Cooley DO PCP - General Family Medicine 04/21/17 Gang Ripsaw Operator Relationship Specialty Start Date End Date Anand Cooley DO PCP - General Family Medicine 04/21/17 Gang Ripsaw Operator Relationship Specialty Start Date End Date Anand Cooley DO PCP - General Family Medicine 04/21/17 Gang Ripsaw Operator Relationship Specialty Start Date End Date Anand Cooley, DO PCP - General Family Medicine 04/21/17 Gang Ripsaw Operator Relationship Specialty Start Date End Date Татьяна Brooke, LATHE SCALPER OPERATOR PCP - General Family Medicine 10/11/19 Eunice Del Angel, LATHE SCALPER OPERATOR [address] [facility] [place] [address] Nurse Practitioner Obstetrics/Gynecology 02/09/19 Gang Ripsaw Operator Relationship Specialty Start Date End Date Татьяна Brooke, LATHE SCALPER OPERATOR [address] [place] [address] PCP - General Family Medicine 10/11/19 Eunice Del Angel, LATHE SCALPER OPERATOR [address] [place] [address] Nurse Practitioner Obstetrics/Gynecology 02/09/19 Gang Ripsaw Operator Relationship Specialty Start Date End Date Anand Cooley DO PCP - General Family Medicine 04/21/17 Gang Ripsaw Operator Relationship Specialty Start Date End Date Anand Cooley DO PCP - General Family Medicine 04/21/17 Gang Ripsaw Operator Relationship Specialty Start Date End Date Anand Cooley DO PCP - General Family Medicine 04/21/17 Gang Ripsaw Operator Relationship Specialty Start Date End Date Anand Cooley DO PCP - General Family Medicine 04/21/17 Gang Ripsaw Operator Relationship Specialty Start Date End Date Anand Cooley DO PCP - General Family Medicine 04/21/17 Gang Ripsaw Operator Relationship Specialty Start Date End Date Anand Cooley DO PCP - General Family Medicine 04/21/17 Gang Ripsaw Operator Relationship Specialty Start Date End Date Татьяна Brooke, LATHE SCALPER OPERATOR [address] [place] [address] PCP - General Family Medicine 10/11/19 Eunice Del Angel, LATHE SCALPER OPERATOR [address] [place] [address] Nurse Practitioner Obstetrics/Gynecology 02/09/19 Gang Ripsaw Operator Relationship Specialty Start Date End Date Anand Cooley DO PCP - General Family Medicine 04/21/17 Gang Ripsaw Operator Relationship Specialty Start Date End Date Anand Cooley DO PCP - General Family Medicine 04/21/17 Gang Ripsaw Operator Relationship Specialty Start Date End Date Anand Cooley DO PCP - General Family Medicine 04/21/17 Gang Ripsaw Operator Relationship Specialty Start Date End Date Anand Cooley DO PCP - General Family Medicine 04/21/17 Gang Ripsaw Operator Relationship Specialty Start Date End Date Татьяна Brooke, LATHE SCALPER OPERATOR [address] [place] [address] PCP - General Family Medicine 10/11/19 Eunice Del Angel, MED [address] [place] [address] Nurse Practitioner Obstetrics/Gynecology 02/09/19 Gang Ripsaw Operator Relationship Specialty Start Date End Date Татьяна Brooke, LATHE SCALPER OPERATOR [address] [place] [address] PCP - General Family Medicine 10/11/19 Eunice Del Angel, MED [address] [place] [address] Nurse Practitioner Obstetrics/Gynecology 02/09/19 Gang Ripsaw Operator Relationship Specialty Start Date End Date Anand Cooley DO PCP - General Family Medicine 04/21/17 Gang Ripsaw Operator Relationship Specialty Start Date End Date Anand Cooley DO PCP - General Family Medicine 04/21/17 Gang Ripsaw Operator Relationship Specialty Start Date End Date Татьяна Brooke CNP [address] [place] [address] PCP - General Certified Nurse Practitioner 12/07/23 Gang Ripsaw Operator Relationship Specialty Start Date End Date Татьяна Brooke CNP [address] [place] [address] PCP - General Certified Nurse Practitioner 12/07/23 Gang Ripsaw Operator Relationship Specialty Start Date End Date Татьяна Brooke, MED [address] [place] [phone] PCP - GRICEL Attributed Provider - [employer] 10/14/23 09/12/50 Keyla Meneses, MED [address] [id number] PCP - General Family Medicine 03/06/24 Eunice Del Angel CNP [address] [place], [place] [phone] Nurse Practitioner Obstetrics/Gynecology 02/09/19 Gang Ripsaw Operator Relationship Specialty Start Date End Date Татьяна Brooke, LATHE SCALPER OPERATOR [address] [place] [phone] PCP - GRICEL Attributed Provider - [employer] 10/14/23 09/12/50 Keyla Meneses, MED [address] [place] [address] PCP - General Family Medicine 03/06/24 Eunice Del Angel, MED [address] [place] [address] Nurse Practitioner Obstetrics/Gynecology 02/09/19 Gang Ripsaw Operator Relationship Specialty Start Date End Date Татьяна Brooke, MED [address] [place] [address] PCP - GRICEL Attributed Provider - [employer] 10/14/23 09/12/50 Keyla Meneses, LATHE SCALPER OPERATOR [address] [place] [address] PCP - General Family Medicine 03/06/24 Eunice Del Angel, MED [facility] [address] [place] [address] Nurse Practitioner Obstetrics/Gynecology 02/09/19 Gang Ripsaw Operator Relationship Specialty Start Date End Date Татьяна Brooke, LATHE SCALPER OPERATOR [address] [place] [phone] PCP - GRICEL Attributed Provider - [employer] 10/14/23 09/12/50 Keyla Meneses, LATHE SCALPER OPERATOR [facility] [place] [address] PCP - General Family Medicine 03/06/24 Eunice Del Angel, LATHE SCALPER OPERATOR [facility] [address] [place] [address] Nurse Practitioner Obstetrics/Gynecology 02/09/19 Gang Ripsaw Operator Relationship Specialty Start Date End Date Татьяна Brooke, LATHE SCALPER OPERATOR [address] [place] [phone] PCP - GRICEL Attributed Provider - [employer] 10/14/23 09/12/50 Keyla Meneses, LATHE SCALPER OPERATOR [address] [place] [address] PCP - General Family Medicine 03/06/24 Eunice Del Angel, MED [address] [place] [address] Nurse Practitioner Obstetrics/Gynecology 02/09/19 Gang Ripsaw Operator Relationship Specialty Start Date End Date Татьяна Brooke, LATHE SCALPER OPERATOR [address] [place] [address] PCP - GRICEL Attributed Provider - [employer] 10/14/23 09/12/50 Keyla Meneses, MED [facility] [place] [address] PCP - General Family Medicine 03/06/24 Eunice Del Angel, MED [address] [place] [address] Nurse Practitioner Obstetrics/Gynecology 02/09/19 Gang Ripsaw Operator Relationship Specialty Start Date End Date Татьяна Brooke, MED [address] [place] [address] PCP - GRICEL Attributed Provider - [employer] 10/14/23 09/12/50 Keyla Meneses, MED [address] [place] [address] PCP - General Family Medicine 03/06/24 Eunice Del Angel, MED [address] [place] [address] Nurse Practitioner Obstetrics/Gynecology 02/09/19 Gang Ripsaw Operator Relationship Specialty Start Date End Date Anand Cooley DO [address] [place] [address] PCP - General 01/31/14 Gang Ripsaw Operator Relationship Specialty Start Date End Date Keyla Meneses CNP [address] [place] [address] PCP - General Family Medicine 03/06/24 Eunice Del Angel, MED [address] [facility] [place] [address] Nurse Practitioner Obstetrics/Gynecology 02/09/19 Team Status: Active Member Role Status Dates Keyla Meneses NUTRITIONAL HEALTH COACH-C Primary Care Provider Active Team Status: Inactive Member Role Status Dates Keyla Meneses NUTRITIONAL HEALTH COACH-C Primary Care Provider Active Start: January 02, 2025 End: January 02, 2025 Keyla Meneses NUTRITIONAL HEALTH COACH-C Referring Provider Active Start: January 02, 2025 End: January 02, 2025 Emma Valenzuela NP, NUTRITIONAL HEALTH COACH-C Attending Provider Active Start: January 02, 2025 End: January 02, 2025 Team Status: Inactive Member Role Status Dates Keyla Meneses NUTRITIONAL HEALTH COACH-C Primary Care Provider Active Start: January 18, 2025 End: January 18, 2025 Keyla Meneses NUTRITIONAL HEALTH COACH-C Referring Provider Active Start: January 18, 2025 [...] Inactive Member Role Status Dates Keyla Meneses NUTRITIONAL HEALTH COACH-C Primary Care Provider Active Start: March 01, 2025 End: March 01, 2025 Keyla Meneses NUTRITIONAL HEALTH COACH-C Referring Provider Active Start: March 01, 2025 End: March 01, 2025 Dr. Emmanuelle Contreras , Attending Provider Activ e Start: March 01, 2025 End: March 01, 2025 Team Status: Inactive Member Role Status Dates Keyla Meneses NP-C Primary Care Provider Active Start: March 01, 2025 End: March 01, 2025 Nel Ruff CNM Attending Provider Active S tart: March 01, 2025 End: March 01, 2025 Nel Ruff CNM Referring Provider Active S tart: March 01, 2025 End: March 01, 2025 Gang Ripsaw Operator Relationship Specialty Start Date End Date Keyla Meneses CNP [address] [place] [id number] PCP - General Family Medicine 03/06/24 Eunice Del Angel, LATHE SCALPER OPERATOR [address] [place] [address] [address] Nurse Practitioner Obstetrics/Gynecology 02/09/19 Nel Ruff Certified Nurse Crushing Mill Operator 01/22/25 Team Status: Active Member Role/Relationship Status Dates Keyla Meneses NP-C Primary Care Provider Active Team Status: Inactive Member Role/Relationship Status Dates Keyla Meneses NP-C Primary Care Provider Active Start: January 02, 2025 End: January 02, 2025 Keyla Meneses NP-C Referring Provider Active Start: January 02, 2025 End: January 02, 2025 Emma Valenzuela NP NUTRITIONAL HEALTH COACH-C Attending Provider Active Start: January 02, 2025 End: January 02, 2025 Team Status: Inactive Member Role/Relationship Status Dates Keyla Meneses NP-C Primary Care Provider Active Start: January 18, 2025 End: January 18, 2025 Keyla Meneses NP-Luna Referring Provider Active Start: January 18, 2025 End: January 18, 2025 Nel Ruff CNM Attending Provider Active S tart: January 18, 2025 End: January 18, 2025 Team Status: Inactive Member Role/Relationship Status Dates Keyla L Gideon , NUTRITIONAL HEALTH COACH-C Primary Care Provider Active Start: January 18, 2025 End: January 18, 2025 Nel Ruff CNM Attending Provider Active S tart: January 18, 2025 End: January 18, 2025 Nel Ruff CNM Referring Provider Active S tart: January 18, 2025 End: January 18, 2025 Team Status: Inactive Member Role/Relationship Status Dates Keyla Meneses NUTRITIONAL HEALTH COACH-C Primary Care Provider Active Start: March 01, 2025 End: March 01, 2025 Keyla Meneses NUTRITIONAL HEALTH COACH-C Referring Provider Active Start: March 01, 2025 End: March 01, 2025 Dr. Emmanuelle Contreras DO Attending Provider Activ e Start: March 01, 2025 End: March 01, 2025 Team Status: Inactive Member Role/Relationship Status Dates Keyla Meneses NUTRITIONAL HEALTH COACH-C Primary Care Provider Active Start: March 01, 2025 End: March 01, 2025 Nel Ruff CNM Attending Provider Active S tart: March 01, 2025 End: March 01, 2025 Nel Ruff CNM Referring Provider Active S tart: March 01, 2025 End: March 01, 2025 Team Status: Inactive Member Role/Relationship Status Dates Keyla Meneses NUTRITIONAL HEALTH COACH-C Primary Care Provider Active Start: March 30, 2025 End: March 30, 2025 Keyla Meneses NUTRITIONAL HEALTH COACH-C Referring Provider Active Start: March 30, 2025 End: March 30, 2025 Dr. Ayala Tohmpson MD Attending Provider Active Start: March 30, 2025 End: March 30, 2025 Team Status: Inactive Member Role/Relationship Status Dates Keyla Meneses NUTRITIONAL HEALTH COACH-C Primary Care Provider Active Start: April 27, 2025 End: April 27, 2025 Keyla Meneses NUTRITIONAL HEALTH COACH-C Referring Provider Active Start: April 27, 2025 End: April 27, 2025 Nel Ruff CNM Attending Provider Active S tart: April 27, 2025 End: April 27, 2025 Team Status: Inactive Member Role/Relationship Status Dates Keyla Meneses , NUTRITIONAL HEALTH COACH-C Primary Care Provider Active Start: March 01, 2025 End: March 01, 2025 Keyla Meneses NUTRITIONAL HEALTH COACH-C Referring Provider Active Start: March 01, 2025 End: March 01, 2025 Dr. Emmanuelle Contreras DO Attending Provider Activ e Start: March 01, 2025 End: March 01, 2025 Team Status: Inactive Member Role/Relationship Status Dates Keyla Meneses , NUTRITIONAL HEALTH COACH-C Primary Care Provider Active Start: March 01, 2025 End: March 01, 2025 Nel Ruff CNM Attending Provider Active S tart: March 01, 2025 End: March 01, 2025 Nel Ruff CNM Referring Provider Active S tart: March 01, 2025 End: March 01, 2025 Team Status: Inactive Member Role/Relationship Status Dates Keyla Meneses NUTRITIONAL HEALTH COACH-C Primary Care Provider Active Start: March 30, 2025 End: March 30, 2025 Keyla Meneses , NUTRITIONAL HEALTH COACH-C Referring Provider Active Start: March 30, 2025 End: March 30, 2025 Dr. Ayala Thompson MD Attending Provider Active Start: March 30, 2025 End: March 30, 2025 Team Status: Inactive Member Role/Relationship Status Dates Keyla Meneses , NUTRITIONAL HEALTH COACH-C Primary Care Provider Active Start: April 27, 2025 End: April 27, 2025 Keyla Meneses , NUTRITIONAL HEALTH COACH-C Referring Provider Active Start: April 27, 2025 End: April 27, 2025 Nel Ruff CNM Attending Provider Active S tart: April 27, 2025 End: April 27, 2025 Team Status: Inactive Member Role/Relationship Status Dates Keyla Meneses NUTRITIONAL HEALTH COACH-C Primary Care Provider Active Start: May 22, 2025 End: May 22, 2025 Keyla Meneses , NUTRITIONAL HEALTH COACH-C Referring Provider Active Start: May 22, 2025 End: May 22, 2025 Emma Valenzuela NP, NUTRITIONAL HEALTH COACH-C Attending Provider Active Start: May 22, 2025 End: May 22, 2025 Team Status: Active Member Role/Relationship Status Dates Keyla Meneses NUTRITIONAL HEALTH COACH-C Primary care physician Active Team Status: Inactive Member Role/Relationship Status Dates Keyla Meneses NUTRITIONAL HEALTH COACH-C Primary care physician Active Start: March 01, 2025 End: March 01, 2025 Keyla Meneses , NUTRITIONAL HEALTH COACH-C Referring Provider Active Start: March 01, 2025 End: March 01, 2025 Dr. Emmanuelle Contreras DO Attending physician Acti ve Start: March 01, 2025 End: March 01, 2025 Team Status: Inactive Member Role/Relationship Status Dates Keyla Meneses , NUTRITIONAL HEALTH COACH-C Primary care physician Active Start: March 01, 2025 End: March 01, 2025 Nel Ruff CNM Attending physician Active Start: March 01, 2025 End: March 01, 2025 Nel Ruff CNM Referring Provider Active S tart: March 01, 2025 End: March 01, 2025 Team Status: Inactive Member Role/Relationship Status Dates Keyla Meneses , NUTRITIONAL HEALTH COACH-C Primary care physician Active Start: March 30, 2025 End: March 30, 2025 Keyla Meneses , NUTRITIONAL HEALTH COACH-C Referring Provider Active Start: March 30, 2025 End: March 30, 2025 Dr. Ayala Thompson MD Attending physician Active Start: March 30, 2025 End: March 30, 2025 Team Status: Inactive Member Role/Relationship Status Dates Keyla Meneses , NUTRITIONAL HEALTH COACH-C Primary care physician Active Start: April 27, 2025 End: April 27, 2025 Keyla Meneses , NUTRITIONAL HEALTH COACH-C Referring Provider Active Start: April 27, 2025 End: April 27, 2025 Nel Ruff CNM Attending physician Active Start: April 27, 2025 End: April 27, 2025 Team Status: Inactive Member Role/Relationship Status Dates Keyla Meneses , NUTRITIONAL HEALTH COACH-C Primary care physician Active Start: May 22, 2025 End: May 22, 2025 Keyla Meneses , NUTRITIONAL HEALTH COACH-C Referring Provider Active Start: May 22, 2025 End: May 22, 2025 Emma Valenzuela NP, NUTRITIONAL HEALTH COACH-C Attending physician Active Start: May 22, 2025 End: May 22, 2025 Team Status: Inactive Member Role/Relationship Status Dates Keyla Meneses , NUTRITIONAL HEALTH COACH-C Primary care physician Active Start: June 13, 2025 End: June 13, 2025 Keyla Meneses , NUTRITIONAL HEALTH COACH-C Referring Provider Active Start: June 13, 2025 End: June 13, 2025 Dr. Emmanuelle Contreras DO Attending physician Acti ve Start: June 13, 2025 End: June 13, 2025 Team Status: Active Member Role/Relationship Status Dates MED MaldonadoC Primary care physician Active Start: June 13, 2025 Emma Valenzuela NUTRITIONAL HEALTH COACH, NUTRITIONAL HEALTH COACH-C Attending physician Active Start: June 13, 2025 Emma Valenzuela NP NUTRITIONAL HEALTH COACH-C Referring Provider Active Start: June 13, 2025 Gang Ripsaw Operator Relationship Specialty Start Date End Date Gideon Keyla Meyer MED [address] [place] [address] PCP - General Family Medicine 03/06/24 Eunice Del Angel LATHE SCALPER OPERATOR [facility] [place] [address] Nurse Practitioner Obstetrics/Gynecology 02/09/19 Nel Ruff Certified Nurse 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 Ayala Thompson MD Attending physician Active Start: March 30, 2025 End: March 30, 2025 Team Status: Inactive Member Role/Relationship Status Dates OLY Maldonado Primary care physician Active Start: April 27, 2025 End: April 27, 2025 OLY Maldonado Referring Provider Active Start: April 27, 2025 End: April 27, 2025 Nel Ruff CNM Attending physician Active Start: April 27, 2025 End: April 27, 2025 Team Status: Inactive Member Role/Relationship Status Dates OLY Maldonado Primary care physician Active Start: May 22, 2025 End: May 22, 2025 Keyla Meneses NP-Luna Referring Provider Active Start: May 22, 2025 End: May 22, 2025 Emma Valenzuela NP NUTRITIONAL HEALTH COACH-C Attending physician Active Start: May 22, 2025 End: May 22, 2025 Team Status: Inactive Member Role/Relationship Status Dates OLY Maldonado Primary care physician Active Start: June 13, 2025 End: June 13, 2025 OLY Maldonado Referring Provider Active Start: June 13, 2025 End: June 13, 2025 Dr. Emmanuelle Contreras DO Attending physician Perla ve Start: June 13, 2025 End: June 13, 2025 Team Status: Inactive Member Role/Relationship Status Dates OLY Maldonado Primary care physician Active Start: June 13, 2025 End: June 13, 2025 Emma Valenzuela NP, NP-C Attending physician Active Start: June 13, 2025 End: June 13, 2025 Emma Valenzuela NP, NP-C Referring Provider Active Start: June 13, 2025 End: June 13, 2025 Team Status: Inactive Member Role/Relationship Status Dates OLY Maldonado Primary care physician Active Start: June 25, 2025 End: June 25, 2025 OLY Maldonado Referring Provider Active Start: June 25, 2025 End: June 25, 2025 Nel Ruff CNM Attending physician Active Start: June 25, 2025 End: June 25, 2025 Scheduled Active and Recently Administ ered Medications (unrecognized section and content) Medication Order 08/11/2022 08/12/2022 08/13/2022 ferrous sulfate tablet 325 mg 325 mg, Oral, DAILY, First dose on Wed08/12/22 at 0900, Until Discontinued, If hemoglobin is below 10 gm/dl, Post-op/Post-Proc 0908 (Not Given - Provider: Laureen Garza RN - Reason: Order Parameters not met) 0814 (Not Given - Provider: Janes Mcgovern RN - Reason: Order Parameters not met) measles, mumps and rubella vaccine (MMR II) injection 0.5 mL 0.5 mL, Subcutaneous, PRIOR TO DISCHARGE, 1 dose, Starting on Wed08/11/22 at 2032, Until Wed08/13/22 at 2027, On day of discharge if indicated per vaccination status., Post-op/Post-Proc vitamin (TRINATAL RX) 60-1 MG tablet 1 tablet 1 tablet, Oral, DAILY, First dose on Wed08/12/22 at 0900, Until Discontinued, Post-op/Post-Proc 0945 (Given - Provider: Laureen Garza, RN) 0823 (Given - Provider: Janes Mcgovern, [...] CONTINUOUS, Starting on Wed08/12/22 at 0115, Until Wed08/13/22 at 2027, Post-op/Post-Proc 0115 (Canceled Entry - [...] Savage RN)0833 (Rate/Dose Change - Provider: Citlaly Savage, RN)1008 (Rate/Dose Change - Provider: Citlaly Savage, RN)1121 (Rate/Dose Change - Provider: Citlaly Savage, RN)1438 (Paused - Provider: Citlaly Savage, RN)1501 (Restarted - Provider: Janeth Macdonald, RN)1621 (Rate/Dose Change - Provider: Janeth Macdonald, RN)1636 (Rate/Dose Change - Provider: Janeth Macdonadl, RN)1651 (Rate/Dose Change - Provider: Citlaly Savage, RN)1709 (Rate/Dose Change - Provider: Citlaly Savage, RN)1736 (Stopped - Provider: Citlaly Savage, RN) ropivacaine (NAROPIN) 0.2% epidural infusion (CANCELED) Epidural, CONTINUOUS, Starting on Wed08/11/22 at 1315, Until Wed08/11/22 at 1800, Intra-op/Intra-Proc 1256 ($$New Bag$$ - Provider: Daniel Tobar APRN-MANAGER [employer])1633 (Rate/Dose Change - Provider: Daniel Tobar APRN-DONAL)1754 (Stopped - Provider: Citlaly Savage, RN) sodium chloride 0.9% IV solution 125 mL (CANCELED) 125 mL, Intravenous, CONTINUOUS, Starting on Wed08/11/22 at 0515, Until Wed08/11/22 at 1800 0509 ($$New Bag$$ - Provider: Anusha Voss)0525 (Rate/Dose Change - Provider: Anusha Tadda)0539 (Rate/Dose Change - Provider: Anusha Tadda)0553 (Rate/Dose Change - Provider: Anusha Tadda)0608 (Rate/Dose Change - Provider: Anusha Voss)0623 (Rate/Dose Change - Provider: Anusha Voss)0640 (Rate/Dose Change - Provider: Margot Arana RN)0727 (Rate/Dose Change - Provider: Citlaly Savage, NEGRO)0834 (Rate/Dose Change - Provider: Citlaly Savage, RN)1009 (Rate/Dose Change - Provider: Citlaly Savage, RN)1121 (Rate/Dose Change - Provider: Citlaly Savage RN)1502 (Rate/Dose Change - Provider: Citlaly Savage, [...] Until Kandi 08/13/22 at 2027, Mild Pain, To episiotomy and/or hemorrhoids. , Post-op/Post-Proc bisacodyl (DULCOLAX) tablet DR 10 mg 10 mg, Oral, DAILY NEEDED, Starting on Wed08/11/22 at 2032, Until Kandi 08/13/22 at 2027, Constipation 1st Line, Post-op/Post-Proc 0823 [...] 2032, Until Wed08/13/22 at 2027, Mild Pain, Post-op/Post-Proc 2100 (Given - Provider: Nichelle Smith, RN) 0946 (Given - Provider: Laureen Garza, NEGRO) 0057 (Given - Provider: Eneida Wright, NEGRO)0823 (Given - Provider: Janes Mcgovern, NEGRO) lactated ringers IV solution 1,000 mL (COMPLETED) 1,000 mL, Intravenous, ADMINISTER DIRECTED, 1 dose, Starting on Wed08/11/22 at 0408, Until Wed08/11/22 at 1335, Other, For intrauterine resuscitation AND / OR prior to placement of epidural, Pre-op/Pre-Proc 1228 ($$New Bag$$ - Provider: Citlaly Savage, NEGRO)1335 (Stopped - Provider: Citlaly Savage, NEGRO) lanolin (MEDELA TENDER CARE) cream 1 Application Topical, NEEDED, Starting on Wed08/11/22 at 2032, Until Wed08/13/22 at 2027, per protocol, To nipples after as needed for discomfort., Post-op/Post-Proc 0050 (Given - Provider: Eneida Wright, NEGRO) nalbuphine (NUBAIN) injection 5-10 mg (CANCELED) 5-10 [...] bag. May repeat x1 for bleeding., Pre-op/Pre-Proc 1751 (Bolus by Bag/Pump - Provider: Citlaly Savage RN) zolpidem (AMBIEN) tablet 5 mg 5 mg, Oral, DAILY AT BEDTIME NEEDED, Starting on 08/11/22 at 2032, Until Kandi 08/13/22 at 2027, Sleep, Post-op/Post-Proc <item><item> Privacy Markings [...] such client. Goals (unrecognized section and content) Type Care Experience Labor Preferences-CB /BF classes: nolabor support person: Justinlabor intervention preferences: []pain management options preferred: limited but ok if requested epiduralcut cord/dad catch: cordbreastfeeding: yesPP control planned: discusseddiscussed possible routes of delivery and associated risks: []special requests: [] FOR RECORDS PERTAINING TO PATIENTS WHO ARE [...] BE BASED ON THE PRIMARY CLINICAL RECORDS. [email or web address] provides no warranty or guarantee of the accuracy or completeness of information in this document.
[2025-08-08 16:45] VITALS: BP 117/74; PULSE 97; O2SAT 96
--- NOTE | 2025-08-08 23:28 | OB.TRI.HP_ITS ---
HPI - General HPI Narrative Late entry note: DRAKE CAMACHO, is a 30 y/o @ 36 weeks who presents to L&D after a minor fall in . She states that she did not hit her abdomen. It has been 2 hours since her fall. Maternal Data Information ASHLEE Calculator Estimated Delivery Date Method Current WG Current Estimate 09/04/25 Ultrasound #1 37w 3d Other Estimates 08/16/25 LMP (Certain) 40w 1d PFSH PFSH Medical History Depression with anxiety PCOS (polycystic ovarian syndrome) Home Medications ?Medication ?Instructions ?Recorded ?Last Taken ?Type PNV 153-FA 400 mcg-om3 35 mg-dha tab PO 01/11/25 Unkno wn History 25 mg-epa 5 mg-fish oil chew tablet famotidine 20 mg tablet (Pepcid) 20 mg PO BID #60 tabs 06/13/25 Unknown Rx alcohol swabs (Alcohol Wipes) 200 pad topical .prn #20 0 ea 06/18/25 Unknown Rx blood sugar diagnostic (OneTouch #100 ea 06/18/25 Unkn own Rx Ultra Test strips) lancets #200 ea 06/18/25 Unknown Rx 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 sensor (Dexcom G7 #1 ea 06/28/25 Unknown Rx Sensor device) 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,tipple engineer,cont #1 ea 06/28/25 Unknown Rx (Dexcom G7 Yacht Rigger) metformin 500 mg tablet 500 mg PO DIRECTED Unknown History insulin NPH isoph U-100 human 100 16 unit (0.16 mL) son bcut QHS #15 mL 07/27/25 Unknown Rx unit/mL (3 mL) subcutaneous pen (Humulin N NPH U-100 Insulin KwikPen) aripiprazole 5 mg tablet (Abilify) 5 mg PO QDAY Unknown History lamotrigine 200 mg tablet 100 mg PO QDAY 08/03/25 Unkn own History pen needle, diabetic 29 gauge x #100 ea 08/03/25 Unkno wn Rx 1/2 (Ultra-Thin II Insulin Pen [place]) Allergy/AdvReac Type Severity Reaction Status Date / Time No Known Allergies Allergy Verified 08/16/25 13:56 Family History Father Hypertension Mother Depression with anxiety Grandmother Diabetes Maternal Skin cancer, Onset Age: 75 Maternal Grandfather Diabetes Maternal Grandmother Diabetes Paternal Surgical History S/P wrist surgery S/P left knee surgery Social History adopted: No household members: spouse and children housing: house number of children: 1 current occupational status: employed 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 [employer] current occupational exposures/hazards: No pets and animals: No history of recent travel: Yes (- December) out of state: Yes out of country: No sexually active: Yes Smoking Status: Never smoker alcohol intake: current alcohol intake frequency: a few times a month details: not since substance use type: former substance user Date of last use: 10years ago and marijuana well-balanced diet: daily or most days caffeine: No eating out: 1-3 times/week during the past year weight has: decreased > 10 lbs what type of physical activity do you participate in: walking frequency: 5-6 times per week duration: 45-60 minutes/day carolann/mandaeism: None seatbelt use: always do you feel safe at home: Yes 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 Date Name GA/Weeks Outcome Route Bth Weight Gen Labor Lgth Anesthesia Del [facility] Provider FOB 08/11/22 [place] 38 live - full term forceps 6#10oz Male epidural [facility] Janelle Josue Delivery Date: 08/11/22 Last Updated by: Joslyn Gregory IOL, GDM Visit Details Expected Delivery Route/Plan Labor Preferences- CB/BF classes: no labor support person: Josue labor intervention preferences: [] pain management options preferred: limited but ok if requested epidural cut cord/dad catch: cord : yes PP control planned: discussed discussed possible routes of delivery and associated risks: [] special requests: [] Plans Covid status: [] Flu vaccine: decline Tdap vaccine: given Rhogam:NA LARC form signed: yes Problem list reviewed and updated with the most current plan of care details and appropriate orders placed. Relevant counseling for the gestational age provided. Continue routine care and follow up unless otherwise noted in visit notes/problem list details OB Flowsheet Initial Weight: 162 lb Date -?-?-?-?-?-?-?-?-?-?-?-?- EGA Weight BP Urine Prot -?-?-?-?-?-?-?-?-?-?-?-?- Glucose FHR FuHt Pres Dilation -?-?-?-?-?-?-?-?-?-?-?-?- Effaced St Visit Note 01/18/25 -?-?-?-?-?-?-?-?-?-?-?-?- 7w 2d 162 lb 2 oz (+2 oz) 122/79 -?-?-?-?-?-?-?-?-?-?-?-?- 151 -?-?-?-?-?-?-?-?-?-?-?-?- KW-CRL not cons with dates. ASHLEE changed. will plan NOB labs next visit. 03/01/25 -?-?-?-?-?-?-?-?-?-?-?-?- 13w 2d 166 lb (+4 lb) 111/70 Negative -?-?-?-?-?-?-?-?-?-?-?-?- Negative 158 -?-?-?-?-?-?-?-?-?-?-?-?- JV- no lof, vagi nal bleeding, or cramping. NIPT and new ob labs to be done today. 03/30/25 -?-?-?-?-?-?-?-?-?-?-?-?- 17w 3d 169 lb 4 oz (+7 lb 4 oz) 116/72 Negative -?-?-?-?-?-?-?-?-?-?-?-?- Negative 145 -?-?-?-?-?-?-?-?-?-?-?-?- SM- no vb lof cr amping 04/27/25 -?-?-?-?-?-?-?-?-?-?-?-?- 21w 3d 177 lb 7 oz (+15 lb 7 oz) 105/69 Negative -?-?-?-?-?-?-?-?-?-?-?-?- Negative 140 21 -?-?-?-?-?-?-?-?-?-?-?-?- KW- no vb/joanna banks. US scheduled for low lying placenta. 05/22/25 -?-?-?-?-?-?-?-?-?-?-?-?- 25w 0d 184 lb 5 oz (+22 lb 5 oz) 115/75 Negative -?-?-?--?-?-?-?-?-?-?-?-?- Negative 158 25 -?-?-?-?-?-?-?-?-?-?-?-?- MH-No VB, LOF. G oghanshyma FM. Rpt MFM US 06/13/25. Larc 06/13/25 -?-?-?-?-?-?-?-?-?-?-?-?- 28w 1d 185 lb (+23 lb) 101/67 Negative -?-?-?-?-?-?-?-?-?-?-?-?- Negative 145 29 -?-?-?-?-?-?-?-?-?-?-?-?- JV- placenta no longer low lying. discussed tdap, flu, rsv. going to decide. JV- placenta no longer low era romero. discussed tdap, flu, rsv. going to decide. She also wants to go straight to glucose testing if the one hour is abnormal. 06/25/25 -?-?-?-?-?-?-?-?-?-?-?-?- 29w 6d 183 lb 6 oz (+21 lb 6 oz) 108/74 Negative -?-?-?-?-?-?-?-?-?-?-?-?- Negative 130 31 -?-?-?-?-?-?-?-?-?-?-?-?- KW- no vb/lof/ct x. good fm. reviewed blood sugars and fastings are 100-115. PP numbers are 130-150. watching carbs and has info from last -GDM. will start Metformin 500mg. discussed nsts and growth US. KW- no vb/lof/ctx. good fm. reviewed blood sugars and fastings are 100-115. PP numbers are 130-150. watching carbs and has info from last -GDM. will start Metformin 500mg. discussed nsts and growth US. declines flu shot. would like tdap next visit. will get RSV at a pharmacy 07/10/25 -?-?-?-?-?-?-?-?-?-?-?-?- 32w 0d 183 lb 1 oz (+21 lb 1 oz) 116/75 Negative -?-?-?-?-?-?-?-?-?-?-?-?- Negative 140 32 -?-?-?-?-?-?-?-?-?-?-?-?- MH-NO VB. Good F M Reactive NST. glucose readings WNL. On metformin. 07/13/25 -?-?-?-?-?-?-?-?-?-?-?-?- 32w 3d 182 lb 9 oz (+20 lb 9 oz) 110/72 Negative -?-?-?-?-?-?-?-?-?-?-?-?- Negative 135 -?-?-?-?-?-?-?-?-?-?-?-?- kw-NST only-reac tive 07/17/25 -?-?-?-?-?-?-?-?-?-?-?-?- 33w 0d 184 lb 8 oz (+22 lb 8 oz) 118/72 Negative -?-?-?-?-?-?-?-?-?-?-?-?- Negative 140 -?-?-?-?-?-?-?-?-?-?-?-?- JV- NST reactive today 07/20/25 -?-?-?-?-?-?-?-?-?-?-?-?- 33w 3d 186 lb (+24 lb) 101/69 Negative -?-?-?-?-?-?-?-?-?-?-?-?- Negative 130 -?-?-?-?-?-?-?-?-?-?-?-?- JV- glucose odilon ls still over 90's fasting but she just started the metformin 2 days ago. if by wednesday it is still high, will increase to 1000mg HS. NST reactive 07/24/25 -?-?-?-?-?-?-?-?-?-?-?-?- 34w 0d 184 lb 8 oz (+22 lb 8 oz) 123/79 Negative -?-?-?-?--?-?-?-?-?-?-?-?- Negative 135 -?-?-?-?-?-?-?-?-?-?-?-?- KW- started 1000 mg at HS on wednesday night. fastings are still elevated. PLan to switch to insulin wednesday if still out of range. good fm and no vb/lof/ctx. growth US scheduled. 07/27/25 -?-?-?-?-?-?-?-?-?-?-?-?- 34w 3d 183 lb 8 oz (+21 lb 8 oz) 116/77 Negative -?-?-?-?-?-?-?-?-?-?-?-?- Negative 140 -?-?-?-?-?-?-?-?-?-?-?-?- JV- fastings, af ter breakfast and after dinner elevated despite 1500 metformin. Stop metformin start NPH insulin for the weekend. If still no improvement will add rapid. NSt reactive 07/31/25 -?-?-?-?-?-?-?-?-?-?-?-?- 35w 0d 183 lb 6 oz (+21 lb 6 oz) 112/73 Negative -?-?-?-?-?-?-?-?-?-?-?-?- Negative 135 -?-?-?-?-?-?-?-?-?-?-?-?- KW- NST only-trudi ctive. Doing much better on insulin and fasting numbers in range. will try to get BPP scheduled with [facility] US on 08/1008/03/25 -?-?-?-?-?-?-?-?-?-?-?-?- 35w 3d 187 lb 7 oz (+25 lb 7 oz) 131/83 Negative -?-?-?-?-?-?-?-?-?-?-?-?- Negative 140 -?-?-?-?-?-?-?-?-?-?-?-?- SM- no vb lof go od fm n oreugar ctx BS reviewed 08/06/25 -?-?-?-?-?-?-?-?-?-?-?-?- 35w 6d 185 lb 6 oz (+23 lb 6 oz) 107/76 Negative -?-?-?-?-?-?-?-?-?-?-?-?- Negative 130 Cephalic 1 -?-?-?-?-?-?-?-?-?-?-?-?- 50 -3 -reactiv e NST. No VB, lof, CTX. BS reviewed and >90% wnl w/insulin. 08/13/25 -?-?-?-?-?-?-?-?-?-?-?-?- 36w 6d 186 lb 5 oz (+24 lb 5 oz) 112/78 Negative -?-?-?-?-?-?-?-?-?-?-?-?- Negative 140 Cephalic 1 -?-?-?-?-?-?-?-?-?-?-?-?- 50 -3 JV- fastin g levels still in the high 90's. 2 hr pp are getting much better. increasing NPH to 18 at bedtime. JV- fasting levels still in the high 90's. 2 hr pp are getting much better. increasing NPH to 18 at bedtime. upon exam there was fluid present. rom plus ordered stat. JV- fasting levels still in the high 90's. 2 hr pp are getting much better. increasing NPH to 18 at bedtime. upon exam there was fluid present. rom plus ordered stat. - was negative. 08/16/25 -?-?-?-?-?-?-?-?-?-?-?-?- 37w 2d 186 lb (+24 lb) 109/77 Negative -?-?-?-?--?-?-?-?-?-?-?-?- Negative 130 -?-?-?-?-?-?-?-?-?-?-?-?- KW- NST reactive . will need IOL set up at next visit. fastings are under 95 now but PP numbers are still very inconsistent. KW- NST reactive. will need IOL set up at next visit. fastings are under 95 now but PP numbers are still very inconsistent. discussed with JV and increase morning NPH to 34 units ROS Constitutional Constitutional: Reports systems reviewed and no addt'l complaints, except as documented Gastrointestinal Gastrointestinal: Denies bloating, constipation, cramping, diarrhea, nausea or vomiting Genitourinary Genitourinary: Reports other Details: Denies vaginal odor, vaginal bleeding, or vaginal discharge ; Denies difficulty urinating or flank pain NST FHR Rate Baby A Baseline: 140 Variability:: Moderate Accelerations:: 15 x 15 Decelerations:: None NST Reactive:: Yes FHR Category:: Category I Assessment & Plan (1) Status post fall: (2) Gestational diabetes mellitus (GDM) affecting , antepartum: COMMENT: NSTs 2Xwk @ 32, and growth US at 32 and 36 weeks deliver at 39 insulin started 07/27/25 - NPH Qhs and with breakfast, 18, and 34 (3) Hx of forceps delivery in prior , currently : (4) History of gestational diabetes mellitus (GDM) in prior , currently : COMMENT: A1C (5) : QUALIFIERS: Weeks of gestation: 37 weeks Qualified Code(s): Z3A.37 - 37 weeks gestation of COMMENT: Neg GBS. Panorama low risk, female. carrier neg. . ntd declined. (6) Supervision of high-risk : QUALIFIERS: Trimester: third trimester Qualified Code(s): O09.93 - Supervision of high risk , unspecified, third trimester COMMENT: PRR, , ASHLEE 09/04/25, girl SARITA Ellis, Josue (7) PCOS (polycystic ovarian syndrome): COMMENT: on metformin- seerosana rodriguez in [place] . stopped at first visit. (8) Depression with anxiety: COMMENT: sees psychiatrist-Dr. Fuentes-Does not meet criteria for diagnosis of bipolar PLAN: Plan minor fall, monitoring x 2 hrs and if reactive nst and no decelerations ok to dc to home. Charges/Coding Multi Select Codes Urinary/Genital Urinary/Genital CPT Codes: 20455-56 non-stress test Interp
== END 2025-08-08 17:00 | disposition home or self-care (01) ==
LOC: WPOUT 16:05 → WP 16:07
PROVIDERS: PCP Nurse Practitioner; Referring Provider Obstetrics & Gynecology; Visit Provider Obstetrics & Gynecology
DX: O24.419 Gestational diabetes mellitus in pregnancy, unspecified control (principal); O99.283 Endocrine, nutritional and metabolic diseases complicating pregnancy, third trimester; E28.2 Polycystic ovarian syndrome; O99.343 Other mental disorders complicating pregnancy, third trimester; F41.8 Other specified anxiety disorders; Z79.899 Other long term (current) drug therapy; W19.XXXA Unspecified fall, initial encounter; Z3A.36 36 weeks gestation of pregnancy
CPT/HCPCS: 59025; 59050; 99221; G0378

== ENCOUNTER → 2025-08-10 | Outpatient (CLI) | payer BC, SELFPAY ==
--- NOTE | 2025-08-10 12:20 | US_ITS ---
PROCEDURE: OB BIOPHYSICAL PROF W/O NST 08/10/2025 REASON FOR EXAM: WELL BEING TECHNIQUE: Procedure Code: [id number] Modality: US Procedure: OB BIOPHYSICAL PROF W/O NST COMPARISON: July 13, 2025. FINDINGS Number: 1 Position: Vertex Placental Position: Posterior and not low-lying Placental Abnormalities: No evidence of previa. ESTIMATED GESTATIONAL AGE: Baseline: 36 weeks and 3 days ESTIMATED DATE OF DELIVERY: Baseline: September 04, 2025 BIOPHYSICAL ASSESSMENT: Amniotic Fluid Volume: 3.9 cm Amniotic Fluid Index: 11.5 cm (8-24 cm normal range) Cardiac Motion: 135 beats per minute (average) Trunk and Limb Motion: Present. Biophysical profile: movements: 2 Gross body movements: 2 tone: 2 Amniotic Fluid: 2 Total score: 8/8 US/OB Biophysical Prof W/O NST IMPRESSION: Normal biophysical profile score of 8/8 Reading Location: [place] [id number]
--- OUTSIDE RECORDS SUMMARY | 2025-08-10 12:23 | XMS RPT_ITS | CCD ---
Author Organization [facility] Care Team Providers Care Batt Machine Operator Name Role Phone Anand Cooley Unavailable [phone] Aisha, Michael Unavailable Unavailable Aisha, Michael Unavailable Unavailable ANAND COOLEY Primary Care Unavailable Anand Cooley Primary Care Provider Eunice Moreno Unavailable Татьяна Brooke Primary Care Provider Anand Cooley DO Primary Care Provider Eunice Del Angel CNP Unavailable [phone] Татьяна Brooke CNP Primary Care Provider [phone] Татьяна Brooke CNP Primary Care Provider [phone] Anand Cooley DO Primary Care Provider [phone] Anand Cooley Unavailable Marie Mario Unavailable Unavailable [place], Ms. Marie Goldman Attending Unavailable Dr. Anand Cooley Primary Care Unavail able Dr. Anand Cooley Primary Care Unavail able Fabiano, Ms. Marie Goldman Attending Unavailable Eunice Del Angel CNPanne Unavailable [phone] Татьяна Brooke CNP Primary Care Provider [phone] Anand Cooley DO Primary Care Provider Татьяна [...] Unavailable EJ SCHNEIDERON Referring Unavailable Edwardo JOVEL, Ттаьяна Gallagher. Unavailable Keyla Meneses CNP Primary Care Provider KEYLA MENESES Primary Care Unavailabl e KEYLA MENESES LONNAE Admitting Unavailabl e FELIZ MENESESL LONNAE Primary Care Unavailabl e Lenora DO, Anand Edmond Primary Care Provider LENORA, ANAND EDMOND Primary Care Unavailable ANTONIO LOPEZ Attending Unavailable Gideon IT COMMUNICATIONS MANAGER-CFelizl L Primary Care Provider Gideon IT COMMUNICATIONS MANAGER-CFelizl L Referring Provider Emma Wyatt Attending Provider Nel Ruff CNM Attending Provider [phone] Nel Ruff CNM Referring Provider Dr. Emmanuelle Contreras DO Attending Provider Dr. Ayala Thompson MD Attending Provider [phone] Gideon IT COMMUNICATIONS MANAGER-CKeyla Primary Care Provider Gideon NICOLE-CKeyla Referring Provider Nel Ruff CNM Attending Provider Nel Ruff CNM Referring Provider Emma Wyatt Attending Provider Gideon IT COMMUNICATIONS MANAGER-C, Keyla L Primary Care Physician Dr. Emmanuelle Contreras DO Attending Physician Nel Ruff CNM Attending Physician [phone] Jay GREER, Dr. Cai Attending Physician Bianca IT COMMUNICATIONS MANAGER-CEmma Attending Physician [phone] Bianca IT COMMUNICATIONS MANAGER-CEmma Referring Provider [phone] EMMANUELLE HERNÁNDEZ Referring Unavailab le DOC, [facility] Primary Care Unavailable MALENA LINCOLN Attending Unavailable ROSHNI DAVIDSON Attending Unavailable DOC, [facility] Primary Care Unavailable EMMANUELLE HERNÁNDEZ Referring Unavailab le Gideon IT COMMUNICATIONS MANAGER-C, Keyla L Primary Care Physician Gideon IT COMMUNICATIONS MANAGER-C, Keyla L Referring Provider [phone] Nel Ruff CNM Attending Physician [phone] Dr. [...] Drug Class(es) Dates Sig (Normalized) Sig (Original) [id number] 200 actuat albuterol 0.09 mg/actuat metered dose [...] 12:00am As directed Blood-Glucose,Receive r,Cont (Dexcom G7 Compressed Gas Equipment Mechanic) misc (1 source) Start: 06-28-2025 Blood-Glucose,Recei mela,Cont (Dexcom G7 Compressed Gas Equipment Mechanic) misc Active 0 .Route 1 June 28, 2025 12:00am As directed brompheniramine maleate 0.4 mg/ml / dextromethorphan hydrobromide 2 mg/ml / pseudoephedrine hydrochloride 6 mg/ml oral solution (2 sources) alpha-Adrenergic Agonist, Uncompetitive T-uarsub-S-asparta te Receptor Antagonist, Sigma-1 Agonist Start: 11-09-2024 [...] oral tablet (4 sources) alpha-Adrenergic Agonist, Uncompetitive D-ddqhwq-E-aspartate Receptor Antagonist, Sigma-1 Agonist Start: 2023 take [...] unless otherwise directed by your doctor. Pnv No.162-Xy-Py4-Dha -Epa-Fish 400 mcg-35 mg- 25 mg-5 mg tablet,chewable (8 sources) Start: 01-11-2025 Start: 01-11-2025 Pnv No.153-Fa- Qr1-Uch-Par-Fish 400 mcg-35 mg- 25 mg-5 mg tablet,chewable [...] above: on metformin- sees e ndo in [place] on metformin- sees e ndo in [place] . stopped at first visit. Other endocrine [...] Test Name Value Interpretation Reference Range Facility Optometric Technician Office Visit Reporton 07-24-2025 Optometric Technician Office Visit Report [facility]'s [address], [address] [place] [address] OFFICE VISIT Date of Service: 07/24/25 MR#: [id number] Acct: [id number] Name: DRAKE PETTY Rep #: [id number] : 1995 Provider: BRET Gay ams Age/Sex: 30/F [place] [facility] [place]: Signed Intake Vital Signs 06/13/25 15:26 06/25/25 15:16 07/20/25 13:16 07/24/25 14:13 07/24/25 14:15 Height 5 ft 4 in 5 ft 4 in 5 ft 4 in 5 ft 4 in 5 ft 4 in Weight: 184 lb 8 oz BMI 31.6 BP 123/79 H Intake Visit Reasons: 34wk ob/nst Finnish Rubber Required: No Is patient in pain?: No [...] #1 ea 06/28/25 07/24/25 Rx (Dexcom G7 Compressed Gas Equipment Mechanic) metformin 500 mg tablet 500 mg PO [...] 1 current occupational status: employed current occupation: [employer] current occupational exposures/hazards: No pets and animals: [...] 5-6 times per week duration: 45-60 minutes/day carolann/baptist: None seatbelt use: always do you feel [...] included)... Normal [facility] Optometric Technician Office Visit Reporton 07-20-2025 Optometric Technician Office Visit Report [facility]'s [address], [address] [place] [address] OFFICE VISIT Date of Service: 07/20/25 MR#: [id number] Acct: [id number] Name: DRAKE PETTY Rep #: [id number] : 1995 Provider: Dr. Emmanuelle Bello DO Age/Sex: 30/F [place] [facility] [place]: Signed Intake Vital Signs 06/25/25 15:16 07/17/25 09:22 07/20/25 13:03 07/20/25 13:16 Height 5 ft 4 in 5 ft 4 in 5 ft 4 in 5 ft 4 in Weight: 186 lb BMI 31.9 BP 101/69 Intake Visit Reasons: 33wk ob/nst Finnish Rubber Required: No Is patient in pain?: No [...] #1 ea 06/28/25 07/20/25 Rx (Dexcom G7 Compressed Gas Equipment Mechanic) metformin 500 mg tablet 500 mg PO [...] 1 current occupational status: employed current occupation: [employer] current occupational exposures/hazards: No pets and animals: [...] 5-6 times per week duration: 45-60 minutes/day carolann/baptist: None seatbelt use: always do you feel [...] included)... Normal [facility] Optometric Technician Office Visit Reporton 07-17-2025 Optometric Technician Office Visit Report [facility] [address] [address] OFFICE VISIT Date of Service: 07/17/25 MR#: [id number] Acct: [id number] Name: DRAKE PETTY Rep #: [id number] : 1995 Provider: Dr. Emmanuelle Bello DO Age/Sex: 30/F [place] [facility] [place]: Signed Intake Vital Signs 06/25/25 15:16 07/10/25 10:14 07/13/25 14:28 07/17/25 09:22 Height 5 ft 4 in 5 ft 4 in 5 ft 4 in 5 ft 4 in Weight: 184 lb 8 oz BMI 31.6 BP 118/72 Intake Visit Reasons: 33wk nst only Finnish Rubber Required: No Is patient in pain?: No [...] #1 ea 06/28/25 07/17/25 Rx (Dexcom G7 Compressed Gas Equipment Mechanic) Last Menstrual Period: 11/09/24 Zika: Zika virus [...] 1 current occupational status: employed current occupation: [employer] current occupational exposures/hazards: No pets and animals: [...] 5-6 times per week duration: 45-60 minutes/day carolann/baptist: None seatbelt use: always do you feel [...] With [employer] 07-13-2025 OB Limited With Biometric[facility] [address] [place] [address] OB Limited With [employer] MR#: [id number] Acct: [id number] Name: DRAKE PETTY Rep #: [id number] : 1995 F 30 From: Tano Wheeler DO PCP: OLY Maldonado Status: REG CLI Study: OB Limited With [employer]ometric[employer] Date of Exam: 07/13 Exam# [id number] Ordering Dr: Nel Ruff CNM PROCEDURE: OB [...] heart rate of 136 bpm. Reading Location: [id number] CC: BRET Ruff; OLY Meneses Resolution Analyst: Signed Normal [facility] Optometric Technician Office Visit Reporton 07-13-2025 Optometric Technician Office Visit Report [facility]'s [address], [address] [place] [address] OFFICE VISIT Date of Service: 07/13/25 MR#: [id number] Acct: [id number] Name: DRAKE PETTY Rep #: [id number] : 1995 Provider: BRET Gay ams Age/Sex: 30/F [place] [facility] [place]: Signed Intake Vital Signs 06/25/25 15:16 07/10/25 10:14 07/13/25 14:28 Height 5 ft 4 in 5 ft 4 in 5 ft 4 in Weight: 183 lb 1 oz 182 lb 9 oz BMI 31.4 31.3 BP 116/75 110/72 Intake Visit Reasons: 32wk nst only Finnish Rubber Required: No Is patient in pain?: No [...] #1 ea 06/28/25 07/13/25 Rx (Dexcom G7 Compressed Gas Equipment Mechanic) Last Menstrual Period: 11/09/24 Zika: Zika virus [...] 1 current occupational status: employed current occupation: [employer] current occupational exposures/hazards: No pets and animals: [...] 5-6 times per week duration: 45-60 minutes/day carolann/baptist: None seatbelt use: always do you feel [...] included)... Normal [facility] Optometric Technician Office Visit Reporton 07-10-2025 Optometric Technician Office Visit Report [facility]'s [address], [address] [place] [address] OFFICE VISIT Date of Service: 07/10/25 MR#: [id number] Acct: [id number] Name: DRAKE PETTY Rep #: [id number] : 1995 Provider: OLY hoffman Age/Sex: 30/F Location[place] [facility] Status: Signed Intake Vital Signs 06/13/25 15:26 06/25/25 15:16 07/10/25 10:14 Height 5 ft 4 in 5 ft 4 in 5 ft 4 in Weight: 185 lb 183 lb 6 oz 183 lb 1 oz BMI 31.7 31.4 31.4 BP 101/67 108/74 116/75 Intake Visit Reasons: 32wk ob/nst Finnish Rubber Required: No Is patient in pain?: No [...] #1 ea 06/28/25 07/10/25 Rx (Dexcom G7 Compressed Gas Equipment Mechanic) Last Menstrual Period: 11/09/24 Zika: Zika virus [...] 1 current occupational status: employed current occupation: [employer] current occupational exposures/hazards: No pets and animals: [...] 5-6 times per week duration: 45-60 minutes/day carolann/baptist: None seatbelt use: always do you feel [...] by: Joslyn Gregory IOL, GDM HPI 32wk ob/nst Details: DRAKE [...] (U) Negative [facility] Optometric Technician Office Visit Reporton 06-25-2025 Optometric Technician Office Visit Report [facility]'s [address], [address] [place] [address] OFFICE VISIT Date of Service: 06/25/25 MR#: [id number] Acct: [id number] Name: DRAKE PETTY Rep #: [id number] : 1995 Provider: BRET Gay ams Age/Sex: 30/F [place] [facility] [place]: Signed Intake Vital Signs 04/27/25 11:42 06/13/25 15:26 06/25/25 15:16 Height 5 ft 4 in 5 ft 4 in 5 ft 4 in Weight: 185 lb 183 lb 6 oz BMI 31.7 31.4 BP 101/67 108/74 Intake Visit Reasons: 30 WK OB Chief Complaint: 30wk OB Finnish Rubber Required: No Is patient in pain?: No [...] 1 current occupational status: employed current occupation: [employer] current occupational exposures/hazards: No pets and animals: [...] 5-6 times per week duration: 45-60 minutes/day carolann/baptist: None seatbelt use: always do you feel [...] s percentage of total leukocytesOrdered By: Emma Sunderland on 06-13-2025 Lymphocytes/100 WBC Auto (Unsp spec) 20.0 % 19-41 [facility] Basophil percentageOrdered B y: Emma Bianca on 06-13-2025 Basophils/100 WBC (Bld) 0.3 % 0-1 [facility] CBC W/Diff, Automatedon -2024 Absolute Lymph 2.00 X10 3/uL Normal 0.83-4.51 [facility] Comment on above: Performed By: #### L 3890.6006, L100.0100, L501.0250, L509.8002 #### [facility] [address] [place], [address] Absolute Neut 7.3 X10 3/uL Normal 2.0-7.7 [facility] Comment on above: Performed By: #### L 3890.6006, L100.0100, L501.0250, L509.8002 #### [facility] [address] [place], [address] Basophils/100 WBC (Bld) 0.3 % Normal 0-1 [facility] Comment on above: Performed By: #### L 3890.6006, L100.0100, L501.0250, L509.8002 #### [facility] [address] [place], [address] Eosinophils/100 WBC (Bld) 1.3 % Normal 0-5 [facility] Comment on above: Performed By: #### L 3890.6006, L100.0100, L501.0250, L509.8002 #### [facility] [address] [place], [address] Erythrocyte distribution width (RBC) [Ratio] 13.4 % Normal 11.6-14.6 [facility] Comment on above: Performed By: #### L 3890.6006, L100.0100, L501.0250, L509.8002 #### [facility] [address], [address] Hematocrit (Bld) [Volume fraction] 36.0 % Low 37-47 [facility] Comment on above: Performed By: #### L 3890.6006, L100.0100, L501.0250, L509.8002 #### [facility] [address] [place], [address] Hemoglobin (Bld) [Mass/Vol] 12.0 g/dL Normal 12.0-15.0 [facility] Comment on above: Performed By: #### L 3890.6006, L100.0100, L501.0250, L509.8002 #### [facility] [address], [address] IG% 0.500 Normal 0.0-0.9 [facility] Comment on above: Result Comment: IG% - Immature Granulocytes (promyelocytes, myelocytes and metamyelocytes) > 1% indicates that a LEFT SHIFT is Present. Performed By: #### L 3890.6006, L100.0100, L501.0250, L509.8002 #### [facility] [address], [address] Lymphocytes/100 WBC (Bld) 20.0 % Normal 19-41 [facility] Comment on above: Performed By: #### L 3890.6006, L100.0100, L501.0250, L509.8002 #### [facility] [address] [place], [address] MCH (RBC) [Entitic mass] 29.0 pg Normal 27.0-32.0 [facility] Comment on above: Performed By: #### L 3890.6006, L100.0100, L501.0250, L509.8002 #### [facility] [address] [place], [address] MCHC (RBC) [Mass/Vol] 33.3 g/dL Normal 32-36 [facility] Comment on above: Performed By: #### L 3890.6006, L100.0100, L501.0250, L509.8002 #### [facility] [address] [place], [address] MCV (RBC) [Entitic vol] 87.0 fL Normal 81-99 [facility] Comment on above: Performed By: #### L 3890.6006, L100.0100, L501.0250, L509.8002 #### [facility] [address] [place], [address] Monocytes/100 WBC (Bld) 5.4 % Normal 0-10 [facility] Comment on above: Performed By: #### L 3890.6006, L100.0100, L501.0250, L509.8002 #### [facility] [address] [place], [address] Neutrophils/100 WBC (Bld) 72.5 % High 47-70 [facility] Comment on above: Performed By: #### L 3890.6006, L100.0100, L501.0250, L509.8002 #### [facility] [address] [place], [address] Nucleated RBC (Bld) [#/Vol] 0 10*3/uL Normal 0-5 [facility] Comment on above: Performed By: #### L 3890.6006, L100.0100, L501.0250, L509.8002 #### [facility] [address] [place], [address] Platelet mean volume (Bld) [Entitic vol] 10.3 fL Normal 6.2-12.0 [facility] Comment on above: Performed By: #### L 3890.6006, L100.0100, L501.0250, L509.8002 #### [facility] [address] [place], [address] Platelets (Bld) [#/Vol] 258 10*3/uL Normal 150-450 [facility] Comment on above: Performed By: #### L 3890.6006, L100.0100, L501.0250, L509.8002 #### [facility] [address] [place], [address] RBC (Bld) [#/Vol] 4.14 10*6/uL Low 4.2-5.4 [facility] Comment on above: Performed By: #### L 3890.6006, L100.0100, L501.0250, L509.8002 #### [facility] [address] [place], [address] RDW SD 41.7 fl Normal 35.1-43.9 [facility] Comment on above: Performed By: #### L 3890.6006, L100.0100, L501.0250, L509.8002 #### [facility] [address] [place], [address] WBC (Bld) [#/Vol] 10.0 10*3/uL Normal 4.4-11.0 [facility] Comment on above: Performed By: #### L 3890.6006, L100.0100, L501.0250, L509.8002 #### [facility] [address] [place], [address] Eosinophil percentageOrdered By: Emma Valenzuela on 06-13-2025 [...] [facility] [address] [place] [place], [address] Glucose measurement at 2 ba rs post-dose gestational glucose tolerance testOrdered By: Emmaba Valenzuela on 06-13-2025 Glucose [Mass/Vol] 166 mg/dL High 70-140 [facility] HIVon 06-13-2025 HIV Non-Reactive Normal Nonreactive [...] Order the HIV antibody detection and differentiation: #[id number] Performed By: #### L 3890.6006, L100.0100, L501.0250, L509.8002 #### [facility] [address] [place], [address] Hematocrit Auto (Bld) [Volum e [...] (RBC) [Entitic vol] 87.0 fL 81-99 [facility] Mean corpuscular hemoglobin (MCH) determinationOrdered By: Emma Valenzuela on 06-13-2025 MCH (RBC) [Entitic mass] 29.0 pg 27.0-32.0 [facility] Mean corpuscular hemoglobin concentration (MCHC) determinationOrdered By: Emma Valenzuela on 06-13-2025 MCHC (RBC) [Mass/Vol] 33.3 g/dL 32-36 [facility] Mean platelet volume determi nationOrdered By: Emma Valenzuela on 06-13-2025 Platelet mean volume (Bld) [Entitic vol] 10.3 fL 6.2-12.0 [facility] Monocyte percentageOrdered B y: Emma Valenzuela on 06-13-2025 Monocytes/100 WBC (Bld) 5.4 % 0-10 [facility] Neutrophil percentageOrdered By: Emma Valenzuela on 06-13-2025 Neutrophils/100 WBC (Bld) 72.5 % High 47-70 [facility] No Panel InformationOrdered By: Emma Valenzuela on 06-13-2025 HIV (1&2) Antibody Non-Reactive Nonreactive [facility] Comment on above: Non-ReactiveReactive Repeatedly reactive samples must be confirmed according to CDC recommended confirmatory algorithms. The subresults for either HIVAG or AHIV can be used as an aid in the selection of the confirmation algorithm for reactive samples.Send out specimens with Reactive results to [facility] for confirmation.Order the HIV antibody detection and differentiation: #[id number] Nucleated red blood cell per centageOrdered By: Emma Valenzuela on 06-13-2025 Nucleated RBC/100 WBC (Bld) [Ratio] 0 % 0-5 [facility] Optometric Technician Office Visit Reporton 06-13-2025 Optometric Technician Office Visit Report [facility]'s [address], [address] [place] [address] OFFICE VISIT Date of Service: 06/13/25 MR#: [id number] Acct: [id number] Name: DRAKE PETTY Rep #: [id number] : 1995 Provider: Dr. Emmanuelle Bello DO Age/Sex: 30/F Location: [facility] Status: Signed Intake Vital Signs 03/30/25 13:58 05/22/25 15:35 06/13/25 15:26 Height 5 ft 4 in 5 ft 4 in 5 ft 4 in Weight: 185 lb BMI 31.7 BP 101/67 Intake Visit Reasons: 28wk ob/glucose Finnish Rubber Required: No Is patient in pain?: No [...] 1 current occupational status: employed current occupation: [employer] current occupational exposures/hazards: No pets and animals: [...] 5-6 times per week duration: 45-60 minutes/day carolann/baptist: None seatbelt use: always do you feel [...] RBC (Bld) [#/Vol] 4.14 10*6/uL Low 4.2-5.4 [facility] Syphilis Antibodieson 2024 Syphilis Abs Non-Reactive Normal Nonreactive [facility] Comment on above: Performed By: #### L 3890.6006, L100.0100, L501.0250, L509.8002 #### [facility] [address] [place], [address] White blood cell (WBC) count Ordered By: Emma Valenzuela on 06-13-2025 WBC (Bld) [#/Vol] 10.0 10*3/uL 4.4-11.0 [facility] - Chemistry and C hemistry - challengeOrdered By: Emma Valenzuela on 05-22-2025 Glucose Ql (U) Negative [facility] Laboratory - UrinalysisOrder ed By: Emma Valenzuela on 05-22-2025 Protein Ql (U) Negative [facility] Optometric Technician Office Visit Reporton 05-22-2025 Optometric Technician Office Visit Report [facility], [address] [place] [address] OFFICE VISIT Date of Service: 05/22/25 MR#: [id number] Acct: [id number] Name: JANICEDRAKE C Rep #: [id number] : 1995 Provider: OLY hoffman Age/Sex: 30/F [place] [facility] [place]: Signed Intake Vital Signs 03/30/25 13:58 04/27/25 11:42 05/22/25 15:35 Height 5 ft 4 in 5 ft 4 in 5 ft 4 in Weight: 184 lb 5 oz BMI 31.6 BP 115/75 Intake Visit Reasons: 25wk ob Chief Complaint: 25 Week OB Finnish Rubber Required: No Is patient in pain?: No [...] 1 current occupational status: employed current occupation: [employer] current occupational exposures/hazards: No pets and animals: [...] 5-6 times per week duration: 45-60 minutes/day carolann/baptist: None seatbelt use: always do you feel [...] (U) Negative [facility] Optometric Technician Office Visit Reporton 04-27-2025 Optometric Technician Office Visit Report [facility]'s [address], [address] [place] [address] OFFICE VISIT Date of Service: 04/27/25 MR#: [id number] Acct: [id number] Name: DRAKE PETTY Rep #: [id number] : 1995 Provider: BRET Gay ams Age/Sex: 30/F [place] [facility] [place]: Signed Intake Vital Signs 03/01/25 13:22 03/30/25 13:58 04/27/25 11:42 Height 5 ft 4 in 5 ft 4 in 5 ft 4 in Weight: 177 lb 7 oz BMI 30.4 BP 105/69 Intake Visit Reasons: 21 wk ob Chief Complaint: 21wk OB Finnish Rubber Required: No Is patient in pain?: No [...] 1 current occupational status: employed current occupation: [employer] current occupational exposures/hazards: No pets and animals: [...] 5-6 times per week duration: 45-60 minutes/day carolann/baptist: None seatbelt use: always do you feel [...] (U) Negative [facility] Optometric Technician Office Visit Reporton 03-30-2025 Optometric Technician Office Visit Report [facility]'s [address], [address] [place] [address] OFFICE VISIT Date of Service: 03/30/25 MR#: [id number] Acct: [id number] Name: DRAKE PETTY Rep #: [id number] : 1995 Provider: Dr. Ayala elliott MD Age/Sex: 30/F [place] [facility] [place]: Signed Intake Vital Signs 01/18/25 08:47 03/01/25 13:22 03/30/25 13:58 Height 5 ft 4 in 5 ft 4 in 5 ft 4 in Weight: 169 lb 4 oz BMI 29.0 BP 116/72 Intake Visit Reasons: 17 wk ob Finnish Rubber Required: No Is patient in pain?: No [...] 1 current occupational status: employed current occupation: [employer] current occupational exposures/hazards: No pets and animals: [...] 5-6 times per week duration: 45-60 minutes/day carolann/baptist: None seatbelt use: always do you feel [...] s percentage of total leukocytesOrdered By: Nel Ruff on 03-01-2025 Lymphocytes/100 WBC Auto (Unsp spec) 23.2 % - [facility] Basophil percentageOrdered B y: Nel Ruff on 03-01-2025 Basophils/100 WBC (Bld) 0.4 % 0-1 [facility] CBC W/Diff, Automatedon 02-11 Absolute Lymph 1.82 X10 3/uL Normal 0.83-4.51 [facility] Comment on above: Performed By: #### L 3890.6006, L100.0100, L501.0250, L509.8002 #### [facility] [address] [place], [address] Absolute Neut 5.2 X10 3/uL Normal 2.0-7.7 [facility] Comment on above: Performed By: #### L 3890.6006, L100.0100, L501.0250, L509.8002 #### [facility] [address] [place], [address] Basophils/100 WBC (Bld) 0.4 % Normal 0-1 [facility] Comment on above: Performed By: #### L 3890.6006, L100.0100, L501.0250, L509.8002 #### [facility] [address] [place], [address] Eosinophils/100 WBC (Bld) 1.3 % Normal 0-5 [facility] Comment on above: Performed By: #### L 3890.6006, L100.0100, L501.0250, L509.8002 #### [facility] [address] [place], [address] Erythrocyte distribution width (RBC) [Ratio] 12.6 % Normal 11.6-14.6 [facility] Comment on above: Performed By: #### L 3890.6006, L100.0100, L501.0250, L509.8002 #### [facility] [address] [place], [address] Hematocrit (Bld) [Volume fraction] 37.4 % Normal 37-47 [facility] Comment on above: Performed By: #### L 3890.6006, L100.0100, L501.0250, L509.8002 #### [facility] [address] [place], [address] Hemoglobin (Bld) [Mass/Vol] 12.6 g/dL Normal 12.0-15.0 [facility] Comment on above: Performed By: #### L 3890.6006, L100.0100, L501.0250, L509.8002 #### [facility] [address] [place], [address] IG% 0.300 Normal 0.0-0.9 [facility] Comment on above: Result Comment: IG% - Immature Granulocytes (promyelocytes, myelocytes and metamyelocytes) > 1% indicates that a LEFT SHIFT is Present. Performed By: #### L 3890.6006, L100.0100, L501.0250, L509.8002 #### [facility] [address] [place], [address] Lymphocytes/100 WBC (Bld) 23.2 % Normal 19-41 [facility] Comment on above: Performed By: #### L 3890.6006, L100.0100, L501.0250, L509.8002 #### [facility] [address] [place], [address] MCH (RBC) [Entitic mass] 29.2 pg Normal 27.0-32.0 [facility] Comment on above: Performed By: #### L 3890.6006, L100.0100, L501.0250, L509.8002 #### [facility] [address] [place], [address] MCHC (RBC) [Mass/Vol] 33.7 g/dL Normal 32-36 [facility] Comment on above: Performed By: #### L 3890.6006, L100.0100, L501.0250, L509.8002 #### [facility] [address] [place], [address] MCV (RBC) [Entitic vol] 86.6 fL Normal 81-99 [facility] Comment on above: Performed By: #### L 3890.6006, L100.0100, L501.0250, L509.8002 #### [facility] [address] [place], [address] Monocytes/100 WBC (Bld) 8.4 % Normal 0-10 [facility] Comment on above: Performed By: #### L 3890.6006, L100.0100, L501.0250, L509.8002 #### [facility] [address] [place], [address] Neutrophils/100 WBC (Bld) 66.4 % Normal 47-70 [facility] Comment on above: Performed By: #### L 3890.6006, L100.0100, L501.0250, L509.8002 #### [facility] [address] [place], [address] Nucleated RBC (Bld) [#/Vol] 0 10*3/uL Normal 0-5 [facility] Comment on above: Performed By: #### L 3890.6006, L100.0100, L501.0250, L509.8002 #### [facility] [address] [place], [address] Platelet mean volume (Bld) [Entitic vol] 10.0 fL Normal 6.2-12.0 [facility] Comment on above: Performed By: #### L 3890.6006, L100.0100, L501.0250, L509.8002 #### [facility] [address] [place], [address] Platelets (Bld) [#/Vol] 258 10*3/uL Normal 150-450 [facility] Comment on above: Performed By: #### L 3890.6006, L100.0100, L501.0250, L509.8002 #### [facility] [address] [place], [address] RBC (Bld) [#/Vol] 4.32 10*6/uL Normal 4.2-5.4 [facility] Comment on above: Performed By: #### L 3890.6006, L100.0100, L501.0250, L509.8002 #### [facility] [address] [facility] [place], [address] RDW SD 39.9 fl Normal 35.1-43.9 [facility] Comment on above: Performed By: #### L 3890.6006, L100.0100, L501.0250, L509.8002 #### [facility] [address] [place], [address] WBC (Bld) [#/Vol] 7.9 10*3/uL Normal 4.4-11.0 [facility] Comment on above: Performed By: #### L 3890.6006, L100.0100, L501.0250, L509.8002 #### [facility] [address] [facility] [place], [address] Eosinophil percentageOrdered By: Nel Ruff on 03-01-2025 [...] Order the HIV antibody detection and differentiation: [id number] Performed By: #### L 3890.6006, L100.0100, L501.0250, L509.8002 #### [facility] [address] [place], [address] Hematocrit Auto (Bld) [Volum e [...] #### [facility] [address] [facility] [place], [address] Hemoglobin A1c percentageOrd ered By: [...] HCV Quant by PCR testing - HCVPCR #[id number] Non Reactive: < 0.8 Equivocal: >/= 0.8 to < 1.0 Reactive: >/= 1.0 The CDC requires that a reactive/equivocal HCV antibody result be sent out for confirmation. HCV Quant by PCR testing. Performed By: #### L 3890.6006, L100.0100, L501.0250, L509.8002 #### [facility] [address] [facility] [place], [place], [address] Immature granulocytes/100 WB C Auto (Bld)Ordered By: [...] [facility] [address] [place], [address] L509.4006on 03-01-2025 Rubella IgG REAC Normal Nonreactive [facility] Comment on above: Result Comment: Anti body Result: Interpretation Non-Reactive: Non-Immune Reactive: Immune The following results were obtained with the [employer] Rubella IgG assay. Results from assays of other manufacturers cannot be used interchangeably. Performed By: #### L 3890.6006, L100.0100, L501.0250, L509.8002 #### [facility] [address] [place] [place], [address] Laboratory - Chemistry and C hemistry - [...] (RBC) [Entitic vol] 86.6 fL 81-99 [facility] Mean corpuscular hemoglobin (MCH) determinationOrdered By: Nel Ruff on 03-01-2025 MCH (RBC) [Entitic mass] 29.2 pg 27.0-32.0 [facility] Mean corpuscular hemoglobin concentration (MCHC) determinationOrdered By: Nel Ruff on 03-01-2025 MCHC (RBC) [Mass/Vol] 33.7 g/dL 32-36 [facility] Mean platelet volume determi nationOrdered By: Nel Ruff on 03-01-2025 Platelet mean volume (Bld) [Entitic vol] 10.0 fL 6.2-12.0 [facility] Monocyte percentageOrdered B y: Nel Ruff on 03-01-2025 Monocytes/100 WBC (Bld) 8.4 % 0-10 [facility] NATERAon 03-01-2025 NATURA SEE SCANNED REPORT Normal [facility] Comment on above: Order Comment: Comme nts: elects NIPT with gender Carrier testing Performed By: #### L 3890.6006, L100.0100, L501.0250, L509.8002 #### [facility] [address] [place] [address]. [place], [address] Neutrophil percentageOrdered By: Nel Ruff on 03-01-2025 Neutrophils/100 WBC (Bld) 66.4 % 47-70 [facility] No Panel InformationOrdered By: Nel Ruff on 03-01-2025 HIV (1&2) Antibody Non-Reactive Nonreactive [facility] Comment on above: Non-ReactiveReactive Repeatedly reactive samples must be confirmed according to CDC recommended confirmatory algorithms. The subresults for either HIVAG or AHIV can be used as an aid in the selection of the confirmation algorithm for reactive samples.Send out specimens with Reactive results to [facility] for confirmation.Order the HIV antibody detection and differentiation: #[id number] Nucleated red blood cell per centageOrdered By: Nel Ruff on 03-01-2025 Nucleated RBC/100 WBC (Bld) [Ratio] 0 % 0-5 [facility] Optometric Technician Office Visit Reporton 03-01-2025 Optometric Technician Office Visit Report [facility]'s [address], [address] [place] [address] OFFICE VISIT Date of Service: 03/01/25 MR#: [id number] Acct: [id number] Name: DRAKE PETTY Rep #: [id number] : 1995 Provider: Dr. Emmanuelle Bello DO Age/Sex: 30/F [place] [facility] [place]: Signed Intake Vital Signs 01/02/25 08:40 01/18/25 08:47 03/01/25 13:22 Height 5 ft 4 in 5 ft 4 in 5 ft 4 in Weight: 166 lb BMI 28.5 BP 111/70 Intake Visit Reasons: 11 wk OB Finnish Rubber Required: No Is patient in pain?: No [...] 1 current occupational status: employed current occupation: [employer] current occupational exposures/hazards: No pets and animals: [...] 5-6 times per week duration: 45-60 minutes/day carolann/baptist: None seatbelt use: always do you feel [...] 03-01-2025 RBC (Bld) [#/Vol] 4.32 10*6/uL 4.2-5.4 [facility] Syphilis Antibodieson 2024 Syphilis Abs Non-Reactive Normal Nonreactive [facility] Comment on above: Performed By: #### L 3890.6006, L100.0100, L501.0250, L509.8002 #### [facility] [address] [place], [address] Type AND Screenon 03-01-2025 Ab SCREEN GEL Negative Normal [facility] Comment on above: Order Comment: PN Performed By: #### L 3890.6006, L100.0100, L501.0250, L509.8002 #### [facility] [address] [place], [address] White blood cell (WBC) count Ordered By: Nel Ruff on 03-01-2025 WBC (Bld) [#/Vol] 7.9 10*3/uL 4.4-11.0 [facility] Chlamydia/GC NELLY aptimaon CHLAMY,NUC ACID Negative Normal Negative [facility] Comment on above: Performed By: #### L 3890.6006, L100.0100, L501.0250, L509.8002 #### [facility] [address] [place], [address] GC BY NUC ACID Negative Normal Negative [facility] Comment on above: Result Comment: Perf ormed at: =G - [facility] [place] [id number] Is Consultant: Helena Lieberman MD, Phone: [phone] Performed By: #### L 3890.6006, L100.0100, L501.0250, L509.8002 #### [facility] [address] [place], [address] Urine Cultureon 01-19-2025 URC Below infection level. Mixed Gram Positive Organisms [place] Count 1000-10,000 MIXC Mixed contaminants. Submit a new specimen if indicated. Normal [facility] Comment on above: Performed By: #### L 3890.6006, L100.0100, L501.0250, L509.8002 #### [facility] [address] [place], [address] Chlamydia trachomatis rRNA d etection by probe [...] [facility] Comment on above: Performed at: =[address] [id number] Director: Helena Lieberman MD, Phone: [phone] Optometric Technician Office Visit Reporton 01-18-2025 Optometric Technician Office Visit Report [facility] [address], [address] [place] [address] OFFICE VISIT Date of Service: 01/18/25 MR#: [id number] Acct: [id number] Name: DRAKE PETTY Rep #: [id number] : 1995 Provider: BRET Gay ams Age/Sex: 29/F [place] [facility] [place]: Signed Intake Vital Signs 01/02/25 08:40 01/18/25 08:47 Height 5 ft 4 in 5 ft 4 in Weight: 162 lb 2 oz BMI 27.8 BP 122/79 H Intake Visit Reasons: NOB LMP 11/09 Chief Complaint: New OB Finnish [employer] Required: No Is patient in pain?: No [...] 1 current occupational status: employed 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 AHSLEE changed. will plan NOB labs next vis (more content not included)... Normal [facility] Urine cultureOrdered By: Rajesh Ruff on 01-18-2025 Bacteria identified Cx Nom (U) Positive Abnormal [facility] Laboratory - Chemistry and C hemistry - challengeOrdered By: Emma Valenzuela on 01-02-2025 HCG ( test) Ql (U) Positive [facility] Optometric Technician Office Visit Reporton 01-02-2025 Optometric Technician Office Visit Report [facility]'s [address], [address] [place] [address] OFFICE VISIT Date of Service: 01/02/25 MR#: [id number] Acct: [id number] Name: DRAKE PETTY Rep #: [id number] : 1995 Provider: OLY hoffman Age/Sex: 29/F [place] [facility] [place]: Signed Intake Vital Signs 01/02/25 08:40 Height 5 ft 4 in Weight: 162 lb BMI 27.8 Intake Visit Reasons: Confirmation/Establ [facility] [employer] Required: No Is patient in pain?: No [...] 01/02/25 @ 11:10 by Emma Valenzuela NP, IT COMMUNICATIONS MANAGER-C) Depression with anxiety PCOS (polycystic ovarian syndrome) [...] scheduled. 01/02/25 1110 Date Emma Valenzuela NP IT COMMUNICATIONS MANAGER-C Cosigner Signature: Date (if applicable) CC: Normal [facility] Beta HCG ( test) Ql on 12-26-2024 Interpretation and review of laboratory results Abnormal [facility] FASTING:UNKNOWN FASTING: UNKNOWN [facility] hCG, Serum, Qualitativeon Beta HCG ( test) Ql Positive Abnormal See Note: [facility] Comment on above: Reference Range: Reference Range Non-: Negative : Positive CBC WITH AUTO DIFFERENTIALon 06-15-2024 AUTO NRBC 0.0 % Normal [facility] Comment on above: Performed By: #### L [id number] #### LAB [address] [place] [address] Guerrero Barnett M.D. [id number] AUTO NRBC ABS COUNT 0.00 K/mcL Normal 0.00-0.00 [facility] Comment on above: Performed By: #### L [id number] #### LAB [address] [place] [address] Guerrero Barnett M.D. [id number] BASOPHILS ABSOLUTE COUNT 0.05 K/mcL Normal 0.00-0.30 [facility] Comment on above: Performed By: #### L [id number] #### LAB [address] [place] [address] Guerrero Barnett M.D. [id number] Basophils/100 WBC (Bld) 0.8 % Normal [facility] Comment on above: Performed By: #### L [id number] #### LAB [address] [place] [address] Guerrero Barnett M.D. [id number] Eosinophils (Bld) [#/Vol] 0.18 10*3/uL Normal 0.00-0.50 [facility] Comment on above: Performed By: #### L [id number] #### LAB [address] [place] [address] Guerrero Barnett M.D. [id number] Eosinophils/100 WBC (Bld) 2.8 % [facility] Comment on above: Performed By: #### L [id number] #### LAB [address] [address] Guerrero Barnett M.D. [id number] Erythrocyte distribution width (RBC) [Ratio] 12.8 % Normal 11.6-14.8 [facility] Comment on above: Performed By: #### L [id number] #### LAB [address] [address] Guerrero Barnett M.D. [id number] Hematocrit (Bld) [Volume fraction] 40.7 % Normal 36.0-46.0 [facility] Comment on above: Performed By: #### L [id number] #### LAB [address] [address] Guerrero Barnett M.D. [id number] Hemoglobin (Bld) [Mass/Vol] 13.2 g/dL Normal 12.0-16.0 [facility] Comment on above: Performed By: #### L [id number] #### LAB [address] [address] Guerrero Barnett M.D. [id number] IG ABSOLUTE 0.02 K/mcL Normal 0.00-0.30 [facility] Comment on above: Performed By: #### L [id number] #### LAB [address] [address] Guerrero Barnett M.D. [id number] IG PERCENT 0.30 % Normal [facility] Comment on above: Result Comment: The IG parameter is the percentage of metamyelocytes, myelocytes and promyelocytes. An immature granulocyte count (IG) of 1% or more suggests the possibility of infection, an IG count of 3% is very likely related to an infection. Performed By: #### L [id number] #### LAB [address] [place] [address] Guerrero Barnett M.D. [id number] Lymphocytes (Bld) [#/Vol] 2.53 10*3/uL Normal 0.90-4.00 [facility] Comment on above: Performed By: #### L [id number] #### LAB [address] [place] [address] Guerrero Barnett M.D. [id number] Lymphocytes/100 WBC (Bld) 38.7 % Normal [facility] Comment on above: Performed By: #### L [id number] #### LAB [address] [address] Guerrero Barnett M.D. [id number] MCH (RBC) [Entitic mass] 29.0 pg Normal 26.0-34.0 [facility] Comment on above: Performed By: #### L [id number] #### [facility] LAB [address] [address] Guerrero Barnett M.D. [id number] MCV (RBC) [Entitic vol] 89.5 fL Normal 80.0-100.0 [facility] Comment on above: Performed By: #### L [id number] #### LAB [address] [address] Guerrero Barnett M.D. [id number] MEAN CORPUSCULAR HEMOGLOBIN CONC 32.4 g/dL Normal 31.0-37.0 [facility] Comment on above: Performed By: #### L [id number] #### LAB [address] [address] Guerrero Barnett M.D. [id number] Monocytes (Bld) [#/Vol] 0.64 10*3/uL Normal 0.30-0.90 [facility] Comment on above: Performed By: #### L [id number] #### LAB [address] [address] Guerrero Barnett M.D. [id number] Monocytes/100 WBC (Bld) 9.8 % Normal [facility] Comment on above: Performed By: #### L [id number] #### LAB [address] [address] Guerrero Barnett M.D. [id number] NEUTROPHILS ABSOLUTE COUNT 3.11 K/mcL Normal 1.70-7.00 [facility] Comment on above: Performed By: #### L [id number] #### LAB [address] [address] Guerrero Barnett M.D. [id number] Neutrophils/100 WBC (Bld) 47.6 % Normal [facility] Comment on above: Performed By: #### L [id number] #### [facility] [address] [address] Guerrero Barnett M.D. [id number] Platelet mean volume (Bld) [Entitic vol] 9.9 fL Normal 9.4-12.4 [facility] Comment on above: Performed By: #### L [id number] #### [facility] [address] [address] Guerrero Barnett M.D. [id number] Platelets (Bld) [#/Vol] 366 10*3/uL Normal 150-400 [facility] Comment on above: Performed By: #### L [id number] #### [facility] [address] [address] Guerrero Barnett M.D. [id number] RBC (Bld) [#/Vol] 4.55 10*6/uL Normal 4.00-5.20 [facility] Comment on above: Performed By: #### L [id number] #### [facility] [address] [address] Guerrero Barnett M.D. [id number] WBC (Bld) [#/Vol] 6.53 10*3/uL Normal 4.50-11.00 [facility] Comment on above: Performed By: #### L [id number] #### [facility] [address] [address] Guerrero Barnett M.D. [id number] COMPREHENSIVE METABOLIC PANE Keo 06-15-2024 Albumin [Mass/Vol] 4.6 g/dL Normal 3.2-5.2 [facility] Comment on above: Order Comment: [facility] has implemented the eGFR calculation approach that does not have a coefficient for race that conforms to the NKF-ASN Task Force Recommendations. Performed By: #### 4 [id number] #### [facility] LAB [address] [address] Guerrero Barnett M.D. [id number] ALP [Catalytic activity/Vol] 87 U/L Normal 40-140 [facility] Comment on above: Order Comment: [facility] has implemented the eGFR calculation approach that does not have a coefficient for race that conforms to the NKF-ASN Task Force Recommendations. Performed By: #### 4 6126 #### LAB [address] [address] Guerrero Barnett M.D. [id number] ALT [Catalytic activity/Vol] 34 U/L Normal 0-35 U/L [facility] Comment on above: Order Comment: [facility] has implemented the eGFR calculation approach that does not have a coefficient for race that conforms to the NKF-ASN Task Force Recommendations. Performed By: #### 4 6126 #### LAB [address] [address] Guerrero Barnett M.D. [id number] Anion gap [Moles/Vol] 16 mmol/L Normal 10-20 [facility] Comment on above: Order Comment: [facility] has implemented the eGFR calculation approach that does not have a coefficient for race that conforms to the NKF-ASN Task Force Recommendations. Performed By: #### 4 [id number] #### LAB [address] [address] Guerrero Barnett M.D. [id number] AST [Catalytic activity/Vol] 26 U/L Normal 0-35 U/L [facility] Comment on above: Order Comment: [facility] has implemented the eGFR calculation approach that does not have a coefficient for race that conforms to the NKF-ASN Task Force Recommendations. Performed By: #### 4 6126 #### LAB [address] [address] Guerrero Barnett M.D. [id number] Bilirubin [Mass/Vol] 0.3 mg/dL Normal 0.0-1.3 [facility] Comment on above: Order Comment: [facility] has implemented the eGFR calculation approach that does not have a coefficient for race that conforms to the NKF-ASN Task Force Recommendations. Performed By: #### 4 6126 #### LAB [address] [address] Guerrero Barnett M.D. [id number] Calcium [Mass/Vol] 9.5 mg/dL Normal 8.4-10.2 [facility] Comment on above: Order Comment: [facility] has implemented the eGFR calculation approach that does not have a coefficient for race that conforms to the NKF-ASN Task Force Recommendations. Performed By: #### 4 6126 #### LAB [address] [address] Guerrero Barnett M.D. [id number] Chloride [Moles/Vol] 103 mmol/L Normal 98-108 [facility] Comment on above: Order Comment: [facility] has implemented the eGFR calculation approach that does not have a coefficient for race that conforms to the NKF-ASN Task Force Recommendations. Performed By: #### 4 6126 #### LAB [address] [address] Guerrero Barnett M.D. [id number] Creatinine [Mass/Vol] 0.64 mg/dL Normal 0.40-1.10 [facility] Comment on above: Order Comment: [facility] has implemented the eGFR calculation approach that does not have a coefficient for race that conforms to the NKF-ASN Task Force Recommendations. Performed By: #### 4 6126 #### LAB [address] [address] Guerrero Barnett M.D. [id number] EGFR 123 mL/min/1.73 m2 Normal >=60 [facility] Comment on above: Order Comment: [facility] has implemented the eGFR calculation approach that does not have a coefficient for race that conforms to the NKF-ASN Task Force Recommendations. Result Comment: Taty mated GFR was calculated using the 2020 CKD-EPI creatinine equation. Performed By: #### 4 6126 #### LAB [address] [address] Guerrero Barnett M.D. [id number] Glucose [Mass/Vol] 80 mg/dL Normal 65-99 [facility] Comment on above: Order Comment: [facility] has implemented the eGFR calculation approach that does not have a coefficient for race that conforms to the NKF-ASN Task Force Recommendations. Performed By: #### 4 6126 #### LAB [address] [address] Guerrero Barnett M.D. [id number] HCO3 (Bld) [Moles/Vol] 27 mmol/L Normal 21-32 [facility] Comment on above: Order Comment: [facility] has implemented the eGFR calculation approach that does not have a coefficient for race that conforms to the NKF-ASN Task Force Recommendations. Performed By: #### 4 6126 #### LAB [address] [address] Guerrero Barnett M.D. [id number] Potassium [Moles/Vol] 4.5 mmol/L Normal 3.5-5.1 [facility] Comment on above: Order Comment: [facility] has implemented the eGFR calculation approach that does not have a coefficient for race that conforms to the NKF-ASN Task Force Recommendations. Performed By: #### 4 6126 #### LAB [address] [address] Guerrero Barnett M.D. [id number] Protein [Mass/Vol] 7.5 g/dL Normal 6.0-8.0 [facility] Comment on above: Order Comment: [facility] has implemented the eGFR calculation approach that does not have a coefficient for race that conforms to the NKF-ASN Task Force Recommendations. Performed By: #### 4 6126 #### LAB [address] [address] Guerrero Barnett M.D. [id number] Sodium [Moles/Vol] 141 mmol/L Normal 135-145 [facility] Comment on above: Order Comment: [facility] has implemented the eGFR calculation approach that does not have a coefficient for race that conforms to the NKF-ASN Task Force Recommendations. Performed By: #### 4 6126 #### LAB [address] [place], [place] [address] Guerrero Barnett M.D. [id number] Urea nitrogen [Mass/Vol] 9 mg/dL Normal 8-25 [facility] Comment on above: Order Comment: [facility] has implemented the eGFR calculation approach that does not have a coefficient for race that conforms to the NKF-ASN Task Force Recommendations. Performed By: #### 4 6126 #### MH LAB [address] [address] Guerrero Barnett M.D. [id number] Urea nitrogen/Creatinine [Mass ratio] 14.1 mg/mg Normal 10.0-20.0 [facility] Comment on above: Order Comment: [facility] Services has implemented the eGFR calculation approach that does not have a coefficient for race that conforms to the NKF-ASN Task Force Recommendations. Performed By: #### 4 6126 #### LAB [address] [address] Guerrero Barnett M.D. [id number] HEMOGLOBIN A1Con 06-15-2024 Glucose [Mass/Vol] 111 mg/dL Normal 74-114 [facility] Comment on above: Performed By: #### 4 8202 #### MH LAB [address] [id number] Guerrero Barnett M.D. [id number] HbA1c (Bld) [Mass fraction] 5.5 % Normal 4.2-5.6 [facility] Comment on above: Performed By: #### 4 8202 #### MH LAB [address] [place], [place] [address] Guerrero Barnett M.D. [id number] LIPID PANELon 06-15-2024 Cholesterol [Mass/Vol] 200 mg/dL High 100-199 [facility] Comment on above: Performed By: #### 4 6087 #### MH LAB [address] [id number] Guerrero Barnett M.D. [id number] Cholesterol in HDL [Mass/Vol] 49 mg/dL Normal 40-59 [facility] Comment on above: Performed By: #### 4 6087 #### LAB [address] [place], [place] [address] Guerrero Barnett M.D. [id number] Cholesterol.total/Choles terol in HDL [Mass ratio] 4.1 {ratio} Normal [facility] Comment on above: Result Comment: Fema le Cholesterol/HDL Ratio: Average risk: 4.4 1/2 average risk: 3.3 2 x average risk: 7.1 Performed By: #### 4 6087 #### LAB [address] [place], [place] [address] Guerrero Barnett M.D. [id number] LDL CHOLESTEROL CALCULATED 121 mg/dL Normal 10-130 [facility] Comment on above: Result Comment: [facility] Cholesterol Education Program Guidelines: LDL Cholesterol Optimal: <100 mg/dL Near Optimal/above Optimal: 100-129 mg/dL Borderline High: 130-159 mg/dL High: 160-189 mg/dL Very High: greater than or equal to 190 mg/dL Performed By: #### 4 6087 #### LAB [address] [address] Guerrero Barnett M.D. [id number] NON HDL CHOL 151 mg/dL Normal [facility] Comment on above: Result Comment: [facility] Cholesterol Education Program Guidelines: NON HDL Cholesterol Desirable: <130 mg/dL Borderline High: 130-159 mg/dL High: 160-189 mg/dL Very High: > or = 190 mg/dL Performed By: #### 4 6087 #### LAB [address] [place], [place] [address] Guerrero Barnett M.D. [id number] Triglyceride [Mass/Vol] 150 mg/dL Normal 30-150 M [facility] Comment on above: Performed By: #### 4 6087 #### MH LAB [address] [place], [place] [address] Guerrero Barnett M.D. [id number] T4, FREEon 06-15-2024 Free T4 [Mass/Vol] 1.4 ng/dL Normal 0.7-1.7 [facility] Comment on above: Performed By: #### 4 6567 #### LAB [address] [id number] Guerrero Barnett M.D. [id number] TSHon 06-15-2024 TSH Qn 0.94 m[IU]/L Normal 0.27-4.20 [facility] Comment on above: Performed By: #### 4 6613 #### LAB [address] [address] Guerrero Barnett M.D. [id number] VITAMIN D, TOTAL, 25-OHon VITAMIN D 25-HYDROXY 42 ng/mL Normal 20-100 [facility] Comment on above: Order Comment: Vitam in D Expected Values Deficiency: 0-10 Insufficiency: 10-20 Sufficient: 20-100 Toxicity: >100 Performed By: #### 4 6678 #### LAB [address] [address] Guerrero Barnett M.D. [id number] B12/FOLATEon 04-25-2024 Cobalamin (Vitamin B12) [Mass/Vol] 583 pg/mL Normal 232-1245 [facility] Comment on above: Performed By: #### 4 6967 #### LAB [address] [address] Guerrero Barnett M.D. [id number] FOLATE > High 3.1-17.5 [facility] Comment on above: Result Comment: Defi cient <2.2 Borderline 2.2 - 3.0 Excessive >17.5 Performed By: #### 4 6967 #### LAB [address] [address] Guerrero Barnett M.D. [id number] CBC WITH AUTO DIFFERENTIALon 04-25-2024 AUTO NRBC 0.0 % Normal [facility] Comment on above: Performed By: #### L [id number] #### MH LAB [address] [address] Guerrero Barnett M.D. [id number] AUTO NRBC ABS COUNT 0.00 K/mcL Normal 0.00-0.00 [facility] Comment on above: Performed By: #### L [id number] #### LAB [address] [address] Guerrero Barnett M.D. [id number] BASOPHILS ABSOLUTE COUNT 0.06 K/mcL Normal 0.00-0.30 [facility] Comment on above: Performed By: #### L [id number] #### LAB [address] [address] Guerrero Barnett M.D. [id number] Basophils/100 WBC (Bld) 0.8 % Normal [facility] Comment on above: Performed By: #### L [id number] #### LAB [address] [address] Guerrero Barnett M.D. [id number] Eosinophils (Bld) [#/Vol] 0.16 10*3/uL Normal 0.00-0.50 [facility] Comment on above: Performed By: #### L [id number] #### LAB [address] [address] Guerrero Barnett M.D. [id number] Eosinophils/100 WBC (Bld) 2.1 % Normal [facility] Comment on above: Performed By: #### L [id number] #### LAB [address] [address] Guerrero Barnett M.D. [id number] Erythrocyte distribution width (RBC) [Ratio] 13.2 % Normal 11.6-14.8 [facility] Comment on above: Performed By: #### L [id number] #### LAB [address] [address] Guerrero Barnett M.D. [id number] Hematocrit (Bld) [Volume fraction] 39.8 % Normal 36.0-46.0 [facility] Comment on above: Performed By: #### L [id number] #### LAB [address] [place] [address] Guerrero Barnett M.D. [id number] Hemoglobin (Bld) [Mass/Vol] 13.0 g/dL Normal 12.0-16.0 [facility] Comment on above: Performed By: #### L [id number] #### LAB [address] [address] Guerrero Barnett M.D. [id number] IG ABSOLUTE 0.04 K/mcL Normal 0.00-0.30 [facility] Comment on above: Performed By: #### L [id number] #### LAB [address] [address] Guerrero Barnett M.D. [id number] IG PERCENT 0.50 % [facility] Comment on above: Result Comment: The IG parameter is the percentage of metamyelocytes, myelocytes and promyelocytes. An immature granulocyte count (IG) of 1% or more suggests the possibility of infection, an IG count of 3% is very likely related to an infection. Performed By: #### L [id number] #### LAB [address] [address] Guerrero Barnett M.D. [id number] Lymphocytes (Bld) [#/Vol] 2.69 10*3/uL Normal 0.90-4.00 [facility] Comment on above: Performed By: #### L [id number] #### LAB [address] [address] Guerrero Barnett M.D. [id number] Lymphocytes/100 WBC (Bld) 34.7 % [facility] Comment on above: Performed By: #### L [id number] #### LAB [address] [address] Guerrero Barnett M.D. [id number] MCH (RBC) [Entitic mass] 29.3 pg Normal 26.0-34.0 [facility] Comment on above: Performed By: #### L [id number] #### LAB [address] [address] Guerrero Barnett M.D. [id number] MCV (RBC) [Entitic vol] 89.8 fL Normal 80.0-100.0 [facility] Comment on above: Performed By: #### L [id number] #### LAB [address] [address] Guerrero Barnett M.D. [id number] MEAN CORPUSCULAR HEMOGLOBIN CONC 32.7 g/dL Normal 31.0-37.0 [facility] Comment on above: Performed By: #### L [id number] #### LAB [address] [address] Guerrero Barnett M.D. [id number] Monocytes (Bld) [#/Vol] 0.67 10*3/uL Normal 0.30-0.90 [facility] Comment on above: Performed By: #### L [id number] #### LAB [address] [address] Guerrero Barnett M.D. [id number] Monocytes/100 WBC (Bld) 8.6 % Normal [facility] Comment on above: Performed By: #### L [id number] #### LAB [address] [address] Guerrero Barnett M.D. [id number] NEUTROPHILS ABSOLUTE COUNT 4.14 K/mcL Normal 1.70-7.00 [facility] Comment on above: Performed By: #### L [id number] #### LAB [address] [address] Guerrero Barnett M.D. [id number] Neutrophils/100 WBC (Bld) 53.3 % Normal [facility] Comment on above: Performed By: #### L [id number] #### LAB [address] [address] Guerrero Barnett M.D. [id number] Platelet mean volume (Bld) [Entitic vol] 9.6 fL Normal 9.4-12.4 [facility] Comment on above: Performed By: #### L [id number] #### LAB [address] [place] [address] Guerrero Barnett M.D. [id number] Platelets (Bld) [#/Vol] 353 10*3/uL Normal 150-400 [facility] Comment on above: Performed By: #### L [id number] #### MH LAB [address] [id number] Guerrero Barnett M.D. [id number] RBC (Bld) [#/Vol] 4.43 10*6/uL Normal 4.00-5.20 [facility] Comment on above: Performed By: #### L [id number] #### MH LAB [address] [id number] Guerrero Barnett M.D. [id number] WBC (Bld) [#/Vol] 7.76 10*3/uL Normal 4.50-11.00 [facility] Comment on above: Performed By: #### L [id number] #### LAB [address] [address] Guerrero Barnett M.D. [id number] IRON STUDY WITH FERRITINon 0 - Ferritin [Mass/Vol] 94 ng/mL Normal 13-150 [facility] Comment on above: Performed By: #### 4 7645 #### MH LAB [address] [address] Guerrero Barnett M.D. [id number] Iron [Mass/Vol] 85 ug/dL Normal 30-160 [facility] Comment on above: Performed By: #### 4 7645 #### LAB [address] [address] Guerrero Barnett M.D. [id number] IRON SATURATION 22 % Normal 20-50 [facility] Comment on above: Performed By: #### 4 7645 #### MH LAB [address] [address] Guerrero Barnett M.D. [id number] TIBC (CALCULATED) 388 mcg/dL Normal 225-430 [facility] Comment on above: Performed By: #### 4 7645 #### MH LAB [address] [address] Guerrero Barnett M.D. [id number] 25 0H VITAMIN D LEVELon 04-0 25 0H VITAMIN D LEVEL 59.1 NG/ML Normal [facility] Comment on above: Result Comment: DEFICIENT <20 NG/ML INSUFFICIENT 20-<30 NG/ML SUFFICIENT 30-100 NG/ML POTENTIAL TOXICITY >100 NG/ML Performed By: #### F X, CMPF, LIP2, ACBC, TSH2 #### Testing performed at [address] [address] CBCon 12-13-2023 ABSOLUTE BAS 0.0 10*3/uL Normal 0.0-0.2 [facility] Comment on above: Performed By: #### F X, CMPF, LIP2, ACBC, TSH2 #### Testing performed at [address] [address] ABSOLUTE EOS 0.1 10*3/uL Normal 0.0-0.7 [facility] Comment on above: Performed By: #### F X, CMPF, LIP2, ACBC, TSH2 #### Testing performed at [address] [address] ABSOLUTE NEUTROPHIL COUNT 4.2 10*3/uL Normal 1.4-6.5 [facility] Comment on above: Performed By: #### F X, CMPF, LIP2, ACBC, TSH2 #### Testing performed at [address] [address] Basophils/100 WBC (Bld) 0.2 % Normal 0.0-2.0 [facility] Comment on above: Performed By: #### F X, CMPF, LIP2, ACBC, TSH2 #### Testing performed at [address] [address] DTYPE AUTO DIFF Normal [facility] Comment on above: Performed By: #### F X, CMPF, LIP2, ACBC, TSH2 #### Testing performed at [address] [address] Eosinophils/100 WBC (Bld) 0.8 % Normal 0.0-11.0 [facility] Comment on above: Performed By: #### F X, CMPF, LIP2, ACBC, TSH2 #### Testing performed at [address] [address] Lymphocytes (Bld) [#/Vol] 2.2 10*3/uL Normal 1.2-3.4 [facility] Comment on above: Performed By: #### F X, CMPF, LIP2, ACBC, TSH2 #### Testing performed at [address] [address] Lymphocytes/100 WBC (Bld) 31.4 % Normal 20.0-55.0 [facility] Comment on above: Performed By: #### F X, CMPF, LIP2, ACBC, TSH2 #### Testing performed at [address] [address] Monocytes (Bld) [#/Vol] 0.5 10*3/uL Normal 0.0-0.7 [facility] Comment on above: Performed By: #### F X, CMPF, LIP2, ACBC, TSH2 #### Testing performed at [address] [address] Monocytes/100 WBC (Bld) 7.1 % Normal 0.0-10.0 [facility] Comment on above: Performed By: #### F X, CMPF, LIP2, ACBC, TSH2 #### Testing performed at [address] [address] Neutrophils/100 WBC (Bld) 60.5 % Normal 37.0-75.0 [facility] Comment on above: Performed By: #### F X, CMPF, LIP2, ACBC, TSH2 #### Testing performed at [address] [address] Erythrocyte distribution width (RBC) [Ratio] 13.8 % Normal 11.5-14.5 [facility] Comment on above: Performed By: #### F X, CMPF, LIP2, ACBC, TSH2 #### Testing performed at [address] [address] Hematocrit (Bld) [Volume fraction] 39.4 % Normal 36.0-48.0 [facility] Comment on above: Performed By: #### F X, CMPF, LIP2, ACBC, TSH2 #### Testing performed at [address] [address] Hemoglobin (Bld) [Mass/Vol] 13.5 g/dL Normal 12.0-16.0 [facility] Comment on above: Performed By: #### F X, CMPF, LIP2, ACBC, TSH2 #### Testing performed at [address] [address] MCH (RBC) [Entitic mass] 29.2 pg Normal 26.0-35.0 [facility] Comment on above: Performed By: #### F X, CMPF, LIP2, ACBC, TSH2 #### Testing performed at [address] [address] MCHC (RBC) [Mass/Vol] 34.2 g/dL Normal 27.0-37.0 [facility] Comment on above: Performed By: #### F X, CMPF, LIP2, ACBC, TSH2 #### Testing performed at [address] [address] MCV (RBC) [Entitic vol] 85.4 fL Normal 80.0-100.0 [facility] Comment on above: Performed By: #### F X, CMPF, LIP2, ACBC, TSH2 #### Testing performed at [address] [address] Platelet mean volume (Bld) [Entitic vol] 8.3 fL Normal 7.4-11.0 [facility] Comment on above: Performed By: #### F X, CMPF, LIP2, ACBC, TSH2 #### Testing performed at [address] [address] Platelets (Bld) [#/Vol] 270 10*3/uL Normal 130-400 [facility] Comment on above: Performed By: #### F X, CMPF, LIP2, ACBC, TSH2 #### Testing performed at [address] [address] RBC (Bld) [#/Vol] 4.61 10*6/uL Normal 4.0-5.4 [facility] Comment on above: Performed By: #### F X, CMPF, LIP2, ACBC, TSH2 #### Testing performed at [address] [address] WBC (Bld) [#/Vol] 7.0 10*3/uL Normal 3.6-11.0 [facility] Comment on above: Performed By: #### F X, CMPF, LIP2, ACBC, TSH2 #### Testing performed at [address] [address] CMP FASTINGon 12-13-2023 A:G RATIO 2.0 RATIO Normal [facility] Comment on above: Performed By: #### F X, CMPF, LIP2, ACBC, TSH2 #### Testing performed at [address] [address] ALBUMIN 5.0 G/dl Normal 3.5-5.0 [facility] Comment on above: Performed By: #### F X, CMPF, LIP2, ACBC, TSH2 #### Testing performed at [address] [address] ALP [Catalytic activity/Vol] 83 U/L Normal 38-126 [facility] Comment on above: Performed By: #### F X, CMPF, LIP2, ACBC, TSH2 #### Testing performed at [address] [address] ALT [Catalytic activity/Vol] 45 U/L High <35 [facility] Comment on above: Performed By: #### F X, CMPF, LIP2, ACBC, TSH2 #### Testing performed at [address] [address] AST [Catalytic activity/Vol] 33 U/L Normal 14-36 [facility] Comment on above: Performed By: #### F X, CMPF, LIP2, ACBC, TSH2 #### Testing performed at [address] [address] Bilirubin [Mass/Vol] 0.4 mg/dL Normal 0.2-1.3 [facility] Comment on above: Performed By: #### F X, CMPF, LIP2, ACBC, TSH2 #### Testing performed at [address] [address] Calcium [Mass/Vol] 9.0 mg/dL Normal 8.4-10.2 [facility] Comment on above: Performed By: #### F X, CMPF, LIP2, ACBC, TSH2 #### Testing performed at [address] [address] Chloride [Moles/Vol] 105 mmol/L Normal 98-107 [facility] Comment on above: Result Comment: Logan lenz note: Triglyceride levels of 600mg/dL or higher may positively bias chloride results by approximately 2.1 mmol Performed By: #### F X, CMPF, LIP2, ACBC, TSH2 #### [place] [address] CO2 [Moles/Vol] 25 mmol/L Normal 22-30 [facility] Comment on above: Performed By: #### F X, CMPF, LIP2, ACBC, TSH2 #### [place] [address] Creatinine [Mass/Vol] 0.60 mg/dL Low 0.70-1.20 [facility] Comment on above: Performed By: #### F X, CMPF, LIP2, ACBC, TSH2 #### Testing performed at [place] [id number] EST. GFR, 153 ml/min/1.73sq.m [facility] Comment on above: Performed By: #### F X, CMPF, LIP2, ACBC, TSH2 #### Testing performed at [place] [id number] EST. GFR,Non 127 ml/min/1.73sq.m [facility] Comment on above: Performed By: #### F X, CMPF, LIP2, ACBC, TSH2 #### [place] [address] GFR Information Average GFR for 20-29 years old = 116. Normal [facility] Comment on above: Result Comment: Associate Professor Of Physics iram Kidney disease, GFR = <60. Kidney failure, GFR = <15. The GFR estimate is not adjusted for extreme body surface area or acute process, nor has it been validated for women or ethnic groups other than and . Performed By: #### F X, CMPF, LIP2, ACBC, TSH2 #### Testing performed at [address] [address] Glucose [Mass/Vol] 108 mg/dL High 70-100 [facility] Comment on above: Result Comment: NORMAL <100 mg/dL PREDIABETES 101-126 mg/dL DIABETES 126 mg/dL or higher Performed By: #### F X, CMPF, LIP2, ACBC, TSH2 #### Testing performed at [address] [address] Potassium [Moles/Vol] 4.1 mmol/L Normal 3.5-5.1 [facility] Comment on above: Performed By: #### F X, CMPF, LIP2, ACBC, TSH2 #### Testing performed at [address] [address] Protein [Mass/Vol] 7.5 g/dL Normal 6.3-8.2 [facility] Comment on above: Performed By: #### F X, CMPF, LIP2, ACBC, TSH2 #### Testing performed at [address] [address] Sodium [Moles/Vol] 139 mmol/L Normal 137-145 [facility] Comment on above: Performed By: #### F X, CMPF, LIP2, ACBC, TSH2 #### Testing performed at [address] [address] Urea nitrogen [Mass/Vol] 10 mg/dL Normal 7-20 [facility] Comment on above: Performed By: #### F X, CMPF, LIP2, ACBC, TSH2 #### Testing performed at [address] [address] FAX REQUESTon 12-13-2023 FAX TO [phone] Normal [facility] Comment on above: Performed By: #### F X, CMPF, LIP2, ACBC, TSH2 #### Testing performed at [address] [address] FREE T4on 12-13-2023 Free T4 [Mass/Vol] 1.06 ng/dL Normal 0.78-2.19 [facility] Comment on above: Performed By: #### T 42, VITD #### Testing performed at [address] [address] HEMOGLOBIN A1Con 12-13-2023 Glucose [Mass/Vol] 108 mg/dL Normal [facility] Comment on above: Performed By: #### H A1CT #### Testing performed at [address] [address] HbA1c (Bld) [Mass fraction] 5.4 % Normal 0-6 [facility] Comment on above: Result Comment: NORMAL <5.7% PREDIABETES 5.7-6.4% DIABETES 6.5% OR HIGHER Performed By: #### H A1CT #### Testing performed at [address] [address] LIPID PROFILEon 12-13-2023 Cholesterol [Mass/Vol] 186 mg/dL Normal 107-217 [facility] Comment on above: Performed By: #### F X, CMPF, LIP2, ACBC, TSH2 #### Testing performed at [address] [address] Cholesterol in HDL [Mass/Vol] 40 mg/dL Normal 33-75 [facility] Comment on above: Performed By: #### F X, CMPF, LIP2, ACBC, TSH2 #### Testing performed at [address] [address] Cholesterol in LDL [Mass/Vol] 126 mg/dL High <100 [facility] Comment on above: Performed By: #### F X, CMPF, LIP2, ACBC, TSH2 #### Testing performed at [address] [address] Cholesterol in VLDL [Mass/Vol] 20 mg/dL Normal 5-25 [facility] Comment on above: Performed By: #### F X, CMPF, LIP2, ACBC, TSH2 #### Testing performed at [address] [address] Cholesterol.total/Choles terol in HDL [Mass ratio] 4.65 {ratio} Normal [facility] Comment on above: Result Comment: RISK TOTAL/HDL RATIO MEN WOMEN 1/2 AVERAGE 3.43 3.27 AVERAGE 4.97 4.44 2X AVERAGE 9.55 7.05 3X AVERAGE 23.99 11.04 Performed By: #### F X, CMPF, LIP2, ACBC, TSH2 #### Testing performed at [address] [address] Triglyceride [Mass/Vol] 101 mg/dL Normal 0-150 [facility] Comment on above: Performed By: #### F X, CMPF, LIP2, ACBC, TSH2 #### Testing performed at [address] [address] TSHon 12-13-2023 TSH 1.080 uIU/ML Normal 0.465-4.680 [facility] Comment on above: Performed By: #### F X, CMPF, LIP2, ACBC, TSH2 #### Testing performed at [address] [address] POCT INFLUENZA, A Bon 2023 FLUAV RNA NELLY+probe Ql (Unsp spec) Negative Negative, Not Tested, Invalid, Not Detected [facility] FLUBV RNA NELLY+probe Ql (Unsp spec) Negative Negative, Not Tested, Invalid, Not Detected [facility] Internal controls [facility] POCT RAPID STREP Aon 024 S. pyogenes Ag Ql (Throat) Negative (+/-) [facility] Internal controls [facility] THROAT CULTUREon 12-07-2023 Throat culture SPECIMEN DESCRIPTION THROAT SWAB CULTURE USUAL OROPHARYNGEAL RAJAN * Result Note: Testing performed at [place] [id number] * REPORT STATUS 12/09/2023 * Result Note: FINAL * [facility] Comment on above: Performed By: #### T HRC #### Testing performed at [address] [address] PAP IG,RFX HPV ASCUon 2023 . . Normal [facility] . Comment Normal [facility] Comment on above: Result Comment: (NOT E) The HPV DNA reflex criteria were not met with this specimen result therefore, no HPV testing was performed. Source.............Cervix;Endocervix LMP / Prev Treat...QWE=[id number] No. of containers..01 ThinPrep Vial DIAGNOSIS: Comment [facility] Comment on above: Result Comment: NEGA TIVE FOR INTRAEPITHELIAL LESION OR MALIGNANCY. NOTE: Comment [facility] Comment on above: Result Comment: (NOT E) The Pap smear is a screening test designed to aid in the detection of premalignant and malignant conditions of the uterine cervix. It is not a diagnostic procedure and should not be used as the sole means of detecting cervical cancer. Both false-positive and false-negative reports do occur. PERFORMED BY: Comment [facility] Comment on above: Result Comment: Yadira Palacio, Harness Cutter (ASCP) SPECIMEN ADEQUACY: Comment [facility] Comment on above: Result Comment: (NOT E) Satisfactory for evaluation. Endocervical and/or squamous metaplastic cells (endocervical component) are present. TEST METHODOLOGY: Comment [facility] Comment on above: Result Comment: (NOT E) This liquid based ThinPrep(R) pap test was screened with the use of an image guided system. PERFORMED AT [facility] POCT INFLUENZA, A Bon 2023 FLUAV RNA NELLY+probe Ql (Unsp spec) Negative Negative, Not Tested, Invalid [facility] FLUBV RNA NELLY+probe Ql (Unsp spec) Negative Negative, Not Tested, Invalid [facility] Internal controls [facility] SARS-COV-2 RAPID AG (WIC)on 09-29-2023 SARS-CoV-2 (COVID-19) RNA NELLY+probe Ql (Unsp spec) Not detected Normal NOT DETECTED [facility] Comment on above: Result Comment: Nega tive [...] LIP2, ACBC, TSH2 #### Testing performed at [address] [address] NARRATIVE This test was performed using lateral flow immunoassay and has been approved as Emergency Use Authorization (EUA). This test does not differentiate between SARS-CoV and SARS-CoV2. Normal [facility] Comment on above: Performed By: #### F X, CMPF, LIP2, ACBC, TSH2 #### Testing performed at [address] [address] SARS-CoV-2 (COVID-19) RNA NA A+probe Ql (Unsp spec)on 09-29-2023 NARRATIVE -1 This test was performed using lateral flow immunoassay and has been approved as Emergency Use Authorization (EUA). This test does not differentiate between SARS-CoV and SARS-CoV2. [facility] SARS-CoV-2 (COVID-19) Ag IA.rapid Ql (Resp) Not detected NOT DETECTED [facility] Comment on above: Negative results kalin [...] clinical signs and symptoms consistent with COVID-19. [facility] TESTOSTERONE, FREEon 023 FREE TESTOSTERONE 3.1 [facility] Comment on above: Result Comment: Refe rence range: 0.0 to 4.2 Unit: pg/mL [facility] Performed By: #### F X, CMPF, LIP2, ACBC, TSH2 #### Testing performed at [address] [address] DHEA-SULFATEon 07-10-2023 DHEA-SULFATE 632.0 [facility] Comment on above: Result Comment: Refe rence range: 84.8 to 378.0 Unit: ug/dL [facility] Performed By: #### F X, CMPF, LIP2, ACBC, TSH2 #### Testing performed at [address] [address] 25 0H VITAMIN D LEVELon 06-14 25 0H VITAMIN D LEVEL 61.1 NG/ML Normal [facility] Comment on above: Result Comment: DEFICIENT <20 NG/ML INSUFFICIENT 20-<30 NG/ML SUFFICIENT 30-100 NG/ML POTENTIAL TOXICITY >100 NG/ML Performed By: #### V ITD #### Testing performed at [address] [address] CBCon 07-09-2023 ABSOLUTE BAS 0.1 10*3/uL Normal 0.0-0.2 [facility] Comment on above: Performed By: #### F X, CMPF, LIP2, ACBC, TSH2 #### Testing performed at [address] [address] ABSOLUTE EOS 0.2 10*3/uL Normal 0.0-0.7 [facility] Comment on above: Performed By: #### F X, CMPF, LIP2, ACBC, TSH2 #### Testing performed at [address] [address] ABSOLUTE NEUTROPHIL COUNT 3.9 10*3/uL Normal 1.4-6.5 [facility] Comment on above: Performed By: #### F X, CMPF, LIP2, ACBC, TSH2 #### Testing performed at [address] [place] [address] Basophils/100 WBC (Bld) 1.1 % Normal 0.0-2.0 [facility] Comment on above: Performed By: #### F X, CMPF, LIP2, ACBC, TSH2 #### Testing performed at [address] [place] [address] DTYPE AUTO DIFF Normal [facility] Comment on above: Performed By: #### F X, CMPF, LIP2, ACBC, TSH2 #### Testing performed at [address] [address] Eosinophils/100 WBC (Bld) 2.5 % Normal 0.0-11.0 [facility] Comment on above: Performed By: #### F X, CMPF, LIP2, ACBC, TSH2 #### Testing performed at [address] [address] Lymphocytes (Bld) [#/Vol] 2.2 10*3/uL Normal 1.2-3.4 [facility] Comment on above: Performed By: #### F X, CMPF, LIP2, ACBC, TSH2 #### Testing performed at [address] [address] Lymphocytes/100 WBC (Bld) 32.1 % Normal 20.0-55.0 [facility] Comment on above: Performed By: #### F X, CMPF, LIP2, ACBC, TSH2 #### Testing performed at [address] [address] Monocytes (Bld) [#/Vol] 0.6 10*3/uL Normal 0.0-0.7 [facility] Comment on above: Performed By: #### F X, CMPF, LIP2, ACBC, TSH2 #### Testing performed at [address] [address] Monocytes/100 WBC (Bld) 8.0 % Normal 0.0-10.0 [facility] Comment on above: Performed By: #### F X, CMPF, LIP2, ACBC, TSH2 #### Testing performed at [address] [address] Neutrophils/100 WBC (Bld) 56.3 % Normal 37.0-75.0 [facility] Comment on above: Performed By: #### F X, CMPF, LIP2, ACBC, TSH2 #### Testing performed at [address] [address] Erythrocyte distribution width (RBC) [Ratio] 13.6 % Normal 11.5-14.5 [facility] Comment on above: Performed By: #### F X, CMPF, LIP2, ACBC, TSH2 #### Testing performed at [address] [address] Hematocrit (Bld) [Volume fraction] 43.1 % Normal 36.0-48.0 [facility] Comment on above: Performed By: #### F X, CMPF, LIP2, ACBC, TSH2 #### Testing performed at [address] [address] Hemoglobin (Bld) [Mass/Vol] 14.2 g/dL Normal 12.0-16.0 [facility] Comment on above: Performed By: #### F X, CMPF, LIP2, ACBC, TSH2 #### Testing performed at [address] [address] MCH (RBC) [Entitic mass] 28.5 pg Normal 26.0-35.0 [facility] Comment on above: Performed By: #### F X, CMPF, LIP2, ACBC, TSH2 #### Testing performed at [address] [address] MCHC (RBC) [Mass/Vol] 33.0 g/dL Normal 27.0-37.0 [facility] Comment on above: Performed By: #### F X, CMPF, LIP2, ACBC, TSH2 #### Testing performed at [address] [address] MCV (RBC) [Entitic vol] 86.3 fL Normal 80.0-100.0 [facility] Comment on above: Performed By: #### F X, CMPF, LIP2, ACBC, TSH2 #### Testing performed at [address] [address] Platelet mean volume (Bld) [Entitic vol] 7.5 fL Normal 7.4-11.0 [facility] Comment on above: Performed By: #### F X, CMPF, LIP2, ACBC, TSH2 #### Testing performed at [address] [address] Platelets (Bld) [#/Vol] 320 10*3/uL Normal 130-400 [facility] Comment on above: Performed By: #### F X, CMPF, LIP2, ACBC, TSH2 #### Testing performed at [address] [address] RBC (Bld) [#/Vol] 5.00 10*6/uL Normal 4.0-5.4 [facility] Comment on above: Performed By: #### F X, CMPF, LIP2, ACBC, TSH2 #### [place] [address] WBC (Bld) [#/Vol] 6.9 10*3/uL Normal 3.6-11.0 [facility] Comment on above: Performed By: #### F X, CMPF, LIP2, ACBC, TSH2 #### Testing performed at [place] [id number] CMP FASTINGon 07-09-2023 A:G RATIO 1.6 RATIO Normal [facility] Comment on above: Performed By: #### F X, CMPF, LIP2, ACBC, TSH2 #### [place] [address] ALBUMIN 4.9 G/dl Normal 3.5-5.0 [facility] Comment on above: Performed By: #### F X, CMPF, LIP2, ACBC, TSH2 #### Testing performed at [address] [address] ALP [Catalytic activity/Vol] 91 U/L Normal 38-126 [facility] Comment on above: Performed By: #### F X, CMPF, LIP2, ACBC, TSH2 #### Testing performed at [address] [address] ALT [Catalytic activity/Vol] 40 U/L High <35 [facility] Comment on above: Performed By: #### F X, CMPF, LIP2, ACBC, TSH2 #### Testing performed at [address] [address] AST [Catalytic activity/Vol] 34 U/L Normal 14-36 [facility] Comment on above: Performed By: #### F X, CMPF, LIP2, ACBC, TSH2 #### Testing performed at [address] [address] Bilirubin [Mass/Vol] 0.6 mg/dL Normal 0.2-1.3 [facility] Comment on above: Performed By: #### F X, CMPF, LIP2, ACBC, TSH2 #### Testing performed at [address] [address] Calcium [Mass/Vol] 9.3 mg/dL Normal 8.4-10.2 [facility] Comment on above: Performed By: #### F X, CMPF, LIP2, ACBC, TSH2 #### Testing performed at [address] [address] Chloride [Moles/Vol] 102 mmol/L Normal 98-107 [facility] Comment on above: Result Comment: Logan lenz note: Triglyceride levels of 600mg/dL or higher may positively bias chloride results by approximately 2.1 mmol Performed By: #### F X, CMPF, LIP2, ACBC, TSH2 #### [place] [address] CO2 [Moles/Vol] 25 mmol/L Normal 22-30 [facility] Comment on above: Performed By: #### F X, CMPF, LIP2, ACBC, TSH2 #### Testing performed at [address] [address] Creatinine [Mass/Vol] 0.70 mg/dL Normal 0.70-1.20 [facility] Comment on above: Performed By: #### F X, CMPF, LIP2, ACBC, TSH2 #### Testing performed at [address] [address] EST. GFR, 128 ml/min/1.73sq.m [facility] Comment on above: Performed By: #### F X, CMPF, LIP2, ACBC, TSH2 #### Testing performed at [address] [address] EST. GFR,Non 106 ml/min/1.73sq.m [facility] Comment on above: Performed By: #### F X, CMPF, LIP2, ACBC, TSH2 #### Testing performed at [address] [address] GFR Information Average GFR for 20-29 years old = 116. Normal [facility] Comment on above: Result Comment: Associate Professor Of Physics iram Kidney disease, GFR = <60. Kidney failure, GFR = <15. The GFR estimate is not adjusted for extreme body surface area or acute process, nor has it been validated for women or ethnic groups other than and . Performed By: #### F X, CMPF, LIP2, ACBC, TSH2 #### Testing performed at [address] [address] Glucose [Mass/Vol] 90 mg/dL Normal 70-100 [facility] Comment on above: Result Comment: NORMAL <100 mg/dL PREDIABETES 101-126 mg/dL DIABETES 126 mg/dL or higher Performed By: #### F X, CMPF, LIP2, ACBC, TSH2 #### Testing performed at [address] [address] Potassium [Moles/Vol] 4.0 mmol/L Normal 3.5-5.1 [facility] Comment on above: Performed By: #### F X, CMPF, LIP2, ACBC, TSH2 #### Testing performed at [address] [address] Protein [Mass/Vol] 8.0 g/dL Normal 6.3-8.2 [facility] Comment on above: Performed By: #### F X, CMPF, LIP2, ACBC, TSH2 #### Testing performed at [address] [address] Sodium [Moles/Vol] 138 mmol/L Normal 137-145 [facility] Comment on above: Performed By: #### F X, CMPF, LIP2, ACBC, TSH2 #### Testing performed at [address] [address] Urea nitrogen [Mass/Vol] 12 mg/dL Normal 7-20 [facility] Comment on above: Performed By: #### F X, CMPF, LIP2, ACBC, TSH2 #### Testing performed at [address] [address] HEMOGLOBIN A1Con 07-09-2023 Glucose [Mass/Vol] 108 mg/dL Normal [facility] Comment on above: Performed By: #### H A1CT #### Testing performed at [address] [address] HbA1c (Bld) [Mass fraction] 5.4 % Normal 0-6 [facility] Comment on above: Result Comment: NORMAL <5.7% PREDIABETES 5.7-6.4% DIABETES 6.5% OR HIGHER Performed By: #### H A1CT #### Testing performed at [address] [address] TESTOSTER.FREE-TOTALon 04-08 FREE TESTOSTERONE 3.7 Normal [facility] Comment on above: Result Comment: Refe rence range: 0.0 to 4.2 Unit: pg/mL [facility] Performed By: #### F X, CMPF, LIP2, ACBC, TSH2 #### Testing performed at [address] [address] DHEA-SULFATEon 04-02-2023 DHEA-SULFATE 573.0 High [facility] Comment on above: Result Comment: Refe rence range: 84.8 to 378.0 Unit: ug/dL [facility] Performed By: #### F X, CMPF, LIP2, ACBC, TSH2 #### Testing performed at [address] [address] TESTOSTER.FREE-TOTALon 04-02 Testosterone [Mass/Vol] 46 ng/dL Normal [facility] Comment on above: Result Comment: Refe rence range: 13 to 71 Unit: ng/dL [facility] Performed By: #### F X, CMPF, LIP2, ACBC, TSH2 #### Testing performed at [address] [address] 25 0H VITAMIN D LEVELon 03-14 25 0H VITAMIN D LEVEL 28.5 NG/ML Normal [facility] Comment on above: Result Comment: DEFICIENT <20 NG/ML INSUFFICIENT 20-<30 NG/ML SUFFICIENT 30-100 NG/ML POTENTIAL TOXICITY >100 NG/ML Performed By: #### V ITD #### Testing performed at [address] [address] CMP FASTINGon 04-01-2023 A:G RATIO 1.5 RATIO Normal [facility] Comment on above: Performed By: #### F X, CMPF, LIP2, ACBC, TSH2 #### Testing performed at [address] [address] ALBUMIN 4.7 G/dl Normal 3.5-5.0 [facility] Comment on above: Performed By: #### F X, CMPF, LIP2, ACBC, TSH2 #### Testing performed at [address] [address] ALP [Catalytic activity/Vol] 100 U/L Normal 38-126 [facility] Comment on above: Performed By: #### F X, CMPF, LIP2, ACBC, TSH2 #### Testing performed at [address] [address] ALT [Catalytic activity/Vol] 36 U/L High <35 [facility] Comment on above: Performed By: #### F X, CMPF, LIP2, ACBC, TSH2 #### Testing performed at [address] [address] AST [Catalytic activity/Vol] 31 U/L Normal 14-36 [facility] Comment on above: Performed By: #### F X, CMPF, LIP2, ACBC, TSH2 #### Testing performed at [address] [address] Bilirubin [Mass/Vol] 0.5 mg/dL Normal 0.2-1.3 [facility] Comment on above: Performed By: #### F X, CMPF, LIP2, ACBC, TSH2 #### Testing performed at [address] [address] Calcium [Mass/Vol] 9.5 mg/dL Normal 8.4-10.2 [facility] Comment on above: Performed By: #### F X, CMPF, LIP2, ACBC, TSH2 #### Testing performed at [address] [address] Chloride [Moles/Vol] 100 mmol/L Normal 98-107 [facility] Comment on above: Result Comment: Plea note: Triglyceride levels of 600mg/dL or higher may positively bias chloride results by approximately 2.1 mmol Performed By: #### F X, CMPF, LIP2, ACBC, TSH2 #### [place] [address] CO2 [Moles/Vol] 25 mmol/L Normal 22-30 [facility] Comment on above: Performed By: #### F X, CMPF, LIP2, ACBC, TSH2 #### [place] [address] Creatinine [Mass/Vol] 0.64 mg/dL Low 0.70-1.20 [facility] Comment on above: Performed By: #### F X, CMPF, LIP2, ACBC, TSH2 #### Testing performed at [place] [id number] EST. GFR, 142 ml/min/1.73sq.m [facility] Comment on above: Performed By: #### F X, CMPF, LIP2, ACBC, TSH2 #### Testing performed at [place] [address]306 EST. GFR,Non 117 ml/min/1.73sq.m [facility] Comment on above: Performed By: #### F X, CMPF, LIP2, ACBC, TSH2 #### [place] [address] GFR Information Average GFR for 20-29 years old = 116. Normal [facility] Comment on above: Result Comment: Associate Professor Of Physics iram Kidney disease, GFR = <60. Kidney failure, GFR = <15. The GFR estimate is not adjusted for extreme body surface area or acute process, nor has it been validated for women or ethnic groups other than and . Performed By: #### F X, CMPF, LIP2, ACBC, TSH2 #### Testing performed at [place] [id number] Glucose [Mass/Vol] 80 mg/dL Normal 70-100 [facility] Comment on above: Result Comment: NORMAL <100 mg/dL PREDIABETES 101-126 mg/dL DIABETES 126 mg/dL or higher Performed By: #### F X, CMPF, LIP2, ACBC, TSH2 #### Testing performed at [address] [address] Potassium [Moles/Vol] 4.2 mmol/L Normal 3.5-5.1 [facility] Comment on above: Performed By: #### F X, CMPF, LIP2, ACBC, TSH2 #### Testing performed at [address] [address] Protein [Mass/Vol] 7.8 g/dL Normal 6.3-8.2 [facility] Comment on above: Performed By: #### F X, CMPF, LIP2, ACBC, TSH2 #### Testing performed at [address] [address] Sodium [Moles/Vol] 139 mmol/L Normal 137-145 [facility] Comment on above: Performed By: #### F X, CMPF, LIP2, ACBC, TSH2 #### Testing performed at [address] [address] Urea nitrogen [Mass/Vol] 12 mg/dL Normal 7-20 [facility] Comment on above: Performed By: #### F X, CMPF, LIP2, ACBC, TSH2 #### Testing performed at [address] [address] FAX REQUESTon 04-01-2023 FAX TO [phone] Normal [facility] Comment on above: Performed By: #### F X, CMPF, LIP2, ACBC, TSH2 #### Testing performed at [address] [address] Provider Note - ED v3on 12-13 Provider [...] SIGNS: T PRBP SpO2O2(LPM) %FiO2 Method 07-Jan-2023 09:04:[id number] 44/87 98 MDM MDM/ED COURSE: Ladonna is [...] ill patient: no Electronic Signatures: Marie Mario (WOOD TREATING INSPECTOR-FOOD PRODUCT INSPECTOR) (Signed 07-Jan-2023 11:49) Authored: ED Notes, HPI, PMH, ROS, PE, Results/Vital Signs, MDM/ED Course, Clinical Impression, Attestation, Chart Review, Scores Last Updated: 07-Jan-2023 11:49 by Marie Mario (WOOD TREATING INSPECTOR-FOOD PRODUCT INSPECTOR) [facility] Provider Note - ED v3on 04-2 Provider [...] did not treat her symptoms with any [id number] medications because she was afraid of breast-feeding. [...] SIGNS: T PRBP SpO2O2(LPM) %FiO2 Method 31-Dec-2022 11:12:[id number] /77 98 MDM MDM/ED COURSE: Drake is [...] ill patient: no Electronic Signatures: Marie Mario (WOOD TREATING INSPECTOR-FOOD PRODUCT INSPECTOR) (Signed 31-Dec-2022 12:09) Authored: ED Notes, HPI, PMH, ROS, PE, Results/Vital Signs, MDM/ED Course, Clinical Impression, Attestation, Chart Review, Scores Last Updated: 31-Dec-2022 12:09 by Marie Mario (WOOD TREATING INSPECTOR-FOOD PRODUCT INSPECTOR) [facility] CBC, EDIF, PLATELETon 2021 ABSOLUTE BASOPHIL COUNT 0.1 10*3/uL 0.0 - 0.2 10*3/uL [facility] Comment on above: Testing performed at [facility], [place], [place] [address] Basophils/100 WBC (Bld) 0.4 % 0.0 - 2.0 % [facility] Differential cell count method Nom (Bld) AUTO DIFF % [facility] Eosinophils (Bld) [#/Vol] 0.1 10*3/uL 0.0 - 0.7 10*3/uL [facility] Eosinophils/100 WBC (Bld) 0.8 % 0.0 - 11.0 % [facility] Erythrocyte distribution width (RBC) [Ratio] 14.1 % 11.5 - 14.5 % [facility] Hematocrit (Bld) [Volume fraction] 35.1 % Low 36.0 - 48.0 % [facility] Hemoglobin (Bld) [Mass/Vol] 11.9 g/dL Low [facility] Interpretation and review of laboratory results Abnormal [facility] Lymphocytes (Bld) [#/Vol] 2.2 10*3/uL 1.2 - 3.4 10*3/uL [facility] Lymphocytes/100 WBC (Bld) 15.4 % Low 20.0 - 55.0 % [facility] MCH (RBC) [Entitic mass] 27.8 pg 26.0 - 35.0 PG [facility] MCHC (RBC) [Mass/Vol] 34.0 g/dL [employer] [facility] MCV (RBC) [Entitic vol] 81.8 fL A [facility] Monocytes (Bld) [#/Vol] 1.3 10*3/uL High 0.0 - 0.7 10*3/uL [facility] Monocytes/100 WBC (Bld) 8.8 % 0.0 - 10.0 % [facility] Neutrophils (Bld) [#/Vol] 10.7 10*3/uL High 1.4 - 6.5 10*3/uL [facility] Neutrophils/100 WBC (Bld) 74.6 % 37.0 - 75.0 % [facility] Platelet mean volume (Bld) [Entitic vol] 8.7 fL [facility] Platelets (Bld) [#/Vol] 194 10*3/uL 130. 0 - 400.0 10*3/uL [facility] RBC (Bld) [#/Vol] 4.29 10*6/uL 4.0 - 5.4 10*6/uL [facility] WBC (Bld) [#/Vol] 14.3 10*3/uL High 3.6 - 11.0 10*3/uL [facility] CBC, EDIF, PLATELETon 2021 ABSOLUTE BASOPHIL COUNT 0.1 10*3/uL 0.0 - 0.2 10*3/uL [facility] Comment on above: Testing performed at [facility], [place], [place] [address] Basophils/100 WBC (Bld) 0.6 % 0.0 - 2.0 % [facility] Differential cell count method Nom (Bld) AUTO DIFF % [facility] Eosinophils (Bld) [#/Vol] 0.2 10*3/uL 0.0 - 0.7 10*3/uL [facility] Eosinophils/100 WBC (Bld) 2.0 % 0.0 - 11.0 % [facility] Erythrocyte distribution width (RBC) [Ratio] 14.4 % 11.5 - 14.5 % [facility] Hematocrit (Bld) [Volume fraction] 38.7 % 36.0 - 48.0 % [facility] Hemoglobin (Bld) [Mass/Vol] 12.8 g/dL [facility] Interpretation and review of laboratory results Abnormal [facility] Lymphocytes (Bld) [#/Vol] 2.2 10*3/uL 1.2 - 3.4 10*3/uL [facility] Lymphocytes/100 WBC (Bld) 23.1 % 20.0 - 55.0 % [facility] MCH (RBC) [Entitic mass] 27.5 pg 26.0 - 35.0 PG [facility] MCHC (RBC) [Mass/Vol] 33.2 g/dL [facility] MCV (RBC) [Entitic vol] 82.7 fL A [facility] Monocytes (Bld) [#/Vol] 0.9 10*3/uL High 0.0 - 0.7 10*3/uL [facility] Monocytes/100 WBC (Bld) 9.6 % 0.0 - 10.0 % [facility] Neutrophils (Bld) [#/Vol] 6.3 10*3/uL 1.4 - 6.5 10*3/uL [facility] Neutrophils/100 WBC (Bld) 64.7 % 37.0 - 75.0 % [facility] Platelet mean volume (Bld) [Entitic vol] 8.3 fL [facility] Platelets (Bld) [#/Vol] 221 10*3/uL 130. 0 - 400.0 10*3/uL [facility] RBC (Bld) [#/Vol] 4.68 10*6/uL 4.0 - 5.4 10*6/uL [facility] WBC (Bld) [#/Vol] 9.7 10*3/uL 3.6 - 11.0 10*3/uL [facility] GLUCOSE (POC DEVICE)on 08-11 GLUCOSE, POINT OF CARE [address] [facility] [id number] [facility] NOVEL CORONAVIRUS LAB 1 - NA SOPHARYNGEALon 08-11-2022 NARRATIVE -1 This test was performed using isothermal NELLY and has been approved as Emergency Use Authorization (EUA) for the qualitative detection [id number] nucleic acid. [facility] Comment on above: Testing performed at [place], [place] [address] SARS-CoV-2 (COVID-19) RNA NELLY+probe Ql (Unsp spec) Not detected NOT DETECTED [facility] Comment on above: Negative results do [...] patient is critically ill or clinically deteriorating. [facility] RAPID TOX SCREEN WITH RELEX TO DRUGMCon 08-11-2022 Amphetamine (U) [Mass/Vol] Negative NEGATIVE NG/ML [facility] Comment on above: <500 ng/ml CUTOFF Barbiturates Screen Ql (U) Negative NEGATIVE NG/ML [facility] Comment on above: <200 ng/ml CUTOFF Benzodiazepines Ql (U) Negative NEGATIVE NG/M L [facility] Comment on above: <150 ng/ml CUTOFF Benzoylecgonine Ql (U) Negative NEGATIVE NG/M L [facility] Comment on above: <150 ng/ml CUTOFF Buprenorphine Ql (U) Negative NEGATIVE NG/ML [facility] Comment on above: <10 ng/ml CUTOFF Testing performed at [place], [place] [address] Cannabinoids Screen Ql (U) Negative NEGATIVE NG/ML [facility] Comment on above: <50 ng/ml CUTOFF Methadone Screen Ql (U) Negative NEGATIVE NG/ ML [facility] Comment on above: <200 ng/ml CUTOFF Methamphetamine (U) [Mass/Vol] Negative NEGATIVE NG/ML [facility] Comment on above: <500 ng/ml CUTOFF Opiates Screen Ql (U) Negative NEGATIVE NG/ML [facility] Comment on above: <100 ng/ml CUTOFF oxyCODONE Ql (U) Negative NEGATIVE NG/ML [facility] Comment on above: <100 ng/ml CUTOFF Phencyclidine Screen method >25 ng/mL Ql (U) Negative NEGATIVE NG/ML [facility] Comment on above: <25 ng/ml CUTOFF Propoxyphene+Norpropoxyp hene Screen Ql (U) Negative NEGATIVE NG/ML [facility] Comment on above: <300 ng/ml CUTOFF Tricyclic antidepressants Screen Ql (U) Negative NEGATIVE NG/ML [facility] Comment on above: <300 ng/ml CUTOFF [facility] Heart R-R duration USo n 08-05-2022 [facility] Heart R-R duration [facility] n 07-30-2022 [facility] Heart R-R duration US n 07-23-2022 [facility] Heart R-R duration [facility] n 07-17-2022 [facility] HEMOGLOBIN A1Con 07-17-2022 Glucose [Mass/Vol] 105 mg/dL [facility] Comment on above: Testing performed at [place], [place] [address] HbA1c (Bld) [Mass fraction] 5.3 % 0 - 6 % [facility] Comment on above: NORMAL <5.7% PREDIABETES 5.7-6.4% DIABETES 6.5% OR HIGHER [facility] CBC, EDIF, PLATELETon 2021 ABSOLUTE BASOPHIL COUNT 0.0 10*3/uL 0.0 - 0.2 10*3/uL [facility] Comment on above: Testing performed at [place], [place] [address] Basophils/100 WBC (Bld) 0.3 % 0.0 - 2.0 % [facility] Differential cell count method Nom (Bld) AUTO DIFF % [facility] Eosinophils (Bld) [#/Vol] 0.1 10*3/uL 0.0 - 0.7 10*3/uL [facility] Eosinophils/100 WBC (Bld) 0.5 % 0.0 - 11.0 % [facility] Erythrocyte distribution width (RBC) [Ratio] 13.7 % 11.5 - 14.5 % [facility] Hematocrit (Bld) [Volume fraction] 37.1 % 36.0 - 48.0 % [facility] Hemoglobin (Bld) [Mass/Vol] 12.6 g/dL [facility] Interpretation and review of laboratory results Abnormal [facility] Lymphocytes (Bld) [#/Vol] 1.4 10*3/uL 1.2 - 3.4 10*3/uL [facility] Lymphocytes/100 WBC (Bld) 12.8 % Low 20.0 - 55.0 % [facility] MCH (RBC) [Entitic mass] 28.5 pg 26.0 - 35.0 PG [facility] MCHC (RBC) [Mass/Vol] 33.9 g/dL [facility] MCV (RBC) [Entitic vol] 83.9 fL [facility] Monocytes (Bld) [#/Vol] 0.8 10*3/uL High 0.0 - 0.7 10*3/uL [facility] Monocytes/100 WBC (Bld) 7.3 % 0.0 - 10.0 % [facility] Neutrophils (Bld) [#/Vol] 8.7 10*3/uL High 1.4 - 6.5 10*3/uL [facility] Neutrophils/100 WBC (Bld) 79.1 % High 37.0 - 75.0 % [facility] Platelet mean volume (Bld) [Entitic vol] 9.2 fL [facility] Platelets (Bld) [#/Vol] 216 10*3/uL 130. 0 - 400.0 10*3/uL [facility] RBC (Bld) [#/Vol] 4.42 10*6/uL 4.0 - 5.4 10*6/uL [facility] WBC (Bld) [#/Vol] 11.0 10*3/uL 3.6 - 11.0 10*3/uL [facility] COMPREHENSIVE METABOLIC PANE Keo 07-13-2022 Albumin [Mass/Vol] 3.5 G/dl 3.5 - 5.0 G/dl [facility] Albumin/Globulin [Mass ratio] 1.2 {ratio} Low [facility] ALP [Catalytic activity/Vol] 131 U/L [facility] ALT [Catalytic activity/Vol] 18 U/L [facility] AST [Catalytic activity/Vol] 23 U/L [facility] Bilirubin [Mass/Vol] 0.1 mg/dL Low [facility] Calcium [Mass/Vol] 8.9 mg/dL [facility] Chloride [Moles/Vol] 106 mmol/L [facility] Comment on above: Please note: Triglyc eride levels of 600mg/dL or higher may positively bias chloride results by approximately 2.1 mmol CO2 [Moles/Vol] 22 mmol/L [facility] Creatinine [Mass/Vol] 0.70 mg/dL [facility] GFR COMMENT Average GFR for 20-29 years old = 116. [facility] Comment on above: Chronic Kidney disea se, GFR = <60. Kidney failure, GFR = <15. The GFR estimate is not adjusted for extreme body surface area or acute process, nor has it been validated for women or ethnic groups other than and . Testing performed at [place], [place] [address] GFR/1.73 sq M.predicted among blacks MDRD (S/P/Bld) [Vol rate/Area] 129 mL/min/{1.73_m2} ml/min/1.73sq. m [facility] GFR/1.73 sq M.predicted among non-blacks MDRD (S/P/Bld) [Vol rate/Area] 107 mL/min/{1.73_m2} ml/min/1.73sq. m [facility] Glucose post fast [Mass/Vol] 110 mg/dL High [facility] Comment on above: NORMAL <100 mg/dL PREDIABETES 101-126 mg/dL DIABETES 126 mg/dL or higher Potassium [Moles/Vol] 3.9 mmol/L [facility] Protein [Mass/Vol] 6.4 g/dL [facility] Sodium [Moles/Vol] 134 mmol/L Low [facility] Urea nitrogen [Mass/Vol] 11 mg/dL [facility] LACTATE DEHYDROGENASEon 06-15 LDH [Catalytic activity/Vol] 91 U/L Low [facility] Comment on above: Testing performed at [place], [place] [address] No Panel Informationon 07-13 Interpretation and review of laboratory results Abnormal [facility] Heart R-R duration USo n 07-09-2022 [facility] Heart R-R duration USo n 06-29-2022 [facility] Heart R-R duration USo n 06-25-2022 [facility] Heart R-R duration USo n 06-18-2022 [facility] OB ultrasound panelon 2021 : Single live iup in Vertex position. EFW is 1677g, which is the 48.5 percentile. heart rate 130 bpm. Umbilical artery S/D ratio is 2.85. [facility] Radiology Study observation (narrative) [facility] ECGOrdered By: Alvarado hawk on 06-16-2022 [facility] Work Phone: Heart R-R duration USo n 05-22-2022 Josse Walter MD - 05/22/2022 2:00 PM EDT Non-stress Test Gestational age: 27w1d Indication: Decreased movement Baseline: 140 bpm 10x10s: N/A Variability: moderate Decelerations: absent Contractions: absent Duration >20 minutes Comments: Reassuring for gestational age 0905/22/22 Josse Walter MD [facility] OB ultrasound panelon 2021 : Single live IUP in Breech position. Normal Anatomy seen. Outflow tracts not seen - follow up ultrasound in 1 month. ASHLEE by US - 08/20/2022 which is consistent with gestational age. [facility] Radiology Study observation (narrative) [facility] OB ultrasound panelon 2021 : 1. Single noted within the uterus 2. heart rate of 159 bpm. [facility] REFERRING PHYSICIAN: Dr. Lee TECHNOLOGIST: Radha Simon PROCEDURE DATE : 02/02/2022 INDICATIONS: Early gestational, couldn't heart heart tones PROCEDURE DETAILS A single was noted within the uterus. heart rate of 159 bpm. FINAL [facility] Radiology Study observation (narrative) [facility] OB ultrasound panelon 2021 : 1. Single of 10 weeks and 4 days. 2. heart rate of 171 bpm. 3. US ASHLEE 08/20/2022, which is inconsistent with ASHLEE by LMP and should be changed. [facility] REFERRING PHYSICIAN: Dr. Lee TECHNOLOGIST: Radha Simon PROCEDURE DATE : 01/26/2022 INDICATIONS: Early gestational, dating LMP 11/08/2021, ASHLEE 08/15/2022 PROCEDURE DETAILS A single was noted within the uterus. heart rate of 171 bpm. The CRL measures 3.65 cm , 10 weeks 4 days. FINAL [facility] Radiology Study observation (narrative) [facility] ComQi ABO/RH(D) TYPINGon 2 ABO and Rh group Nom (Bld ) Positive [facility] ABO and Rh group Nom (Bld ) Testing performed at [place], [place] [address] [facility] ANTIBODY SCREENon 01-09-2022 Blood group antibody screen Ql Negative [facility] EXPIRATION DATE 01/12/2022,2359 [facility] EXPIRATION DATE Testing performed at [place], [place] [address] [facility] CBC, EDIF, PLATELETon 2021 ABSOLUTE BASOPHIL COUNT 0.0 10*3/uL 0.0 - 0.2 10*3/uL [facility] Comment on above: Testing performed at [place] [address] Basophils/100 WBC (Bld) 0.5 % 0.0 - 2.0 % [facility] Differential cell count method Nom (Bld) AUTO DIFF % [facility] Eosinophils (Bld) [#/Vol] 0.10 10*3/uL 0.0 - 0.7 10*3/uL [facility] Eosinophils/100 WBC (Bld) 1.1 % 0.0 - 11.0 % [facility] Erythrocyte distribution width (RBC) [Ratio] 12.8 % 11.5 - 14.5 % [facility] Hematocrit (Bld) [Volume fraction] 37.9 % 36.0 - 48.0 % [facility] Hemoglobin (Bld) [Mass/Vol] 13.3 g/dL [facility] Interpretation and review of laboratory results Abnormal [facility] Lymphocytes (Bld) [#/Vol] 1.40 10*3/uL 1.2 - 3.4 10*3/uL [facility] Lymphocytes/100 WBC (Bld) 19.9 % Low 20.0 - 55.0 % [facility] MCH (RBC) [Entitic mass] 30.5 pg 26.0 - 35.0 PG [facility] MCHC (RBC) [Mass/Vol] 35.0 g/dL [facility] MCV (RBC) [Entitic vol] 87.1 fL [facility] Monocytes (Bld) [#/Vol] 0.5 10*3/uL 0.0 - 0.7 10*3/uL [facility] Monocytes/100 WBC (Bld) 7.4 % 0.0 - 10.0 % [facility] Neutrophils (Bld) [#/Vol] 5.1 10*3/uL 1.4 - 6.5 10*3/uL [facility] Neutrophils/100 WBC (Bld) 71.1 % 37.0 - 75.0 % [facility] Platelet mean volume (Bld) [Entitic vol] 7.8 fL [facility] Platelets (Bld) [#/Vol] 296 10*3/uL 130. 0 - 400.0 10*3/uL [facility] RBC (Bld) [#/Vol] 4.35 10*6/uL 4.0 - 5.4 10*6/uL [facility] WBC (Bld) [#/Vol] 7.2 10*3/uL 3.6 - 11.0 10*3/uL [facility] HIV 1+2 Ab+HIV1 p24 Ag IA Ql on 01-09-2022 HIV 1+2 Ab IA Ql Non-Reactive NONREACTIVE [facility] Comment on above: Testing performed at [address] System RAPID TOX SCREEN WITH RELEX TO DRUGMCon 01-09-2022 Amphetamine (U) [Mass/Vol] Negative NEGATIVE NG/ML [facility] Comment on above: <500 ng/ml CUTOFF Barbiturates Screen Ql (U) Negative NEGATIVE NG/ML [facility] Comment on above: <200 ng/ml CUTOFF Benzodiazepines Ql (U) Negative NEGATIVE NG/M L [facility] Comment on above: <150 ng/ml CUTOFF Benzoylecgonine Ql (U) Negative NEGATIVE NG/M L [facility] Comment on above: <150 ng/ml CUTOFF Buprenorphine Ql (U) Negative NEGATIVE NG/ML [facility] Comment on above: <10 ng/ml CUTOFF Testing performed at [place] [address] Cannabinoids Screen Ql (U) Negative NEGATIVE NG/ML [facility] Comment on above: <50 ng/ml CUTOFF Methadone Screen Ql (U) Negative NEGATIVE NG/ ML [facility] Comment on above: <200 ng/ml CUTOFF Methamphetamine (U) [Mass/Vol] Negative NEGATIVE NG/ML [facility] Comment on above: <500 ng/ml CUTOFF Opiates Screen Ql (U) Negative NEGATIVE NG/ML [facility] Comment on above: <100 ng/ml CUTOFF oxyCODONE Ql (U) Negative NEGATIVE NG/ML [facility] Comment on above: <100 ng/ml CUTOFF Phencyclidine Screen method >25 ng/mL Ql (U) Negative NEGATIVE NG/ML [facility] Comment on above: <25 ng/ml CUTOFF Propoxyphene+Norpropoxyp hene Screen Ql (U) Negative NEGATIVE NG/ML [facility] Comment on above: <300 ng/ml CUTOFF Tricyclic antidepressants Screen Ql (U) Negative NEGATIVE NG/ML [facility] Comment on above: <300 ng/ml CUTOFF [facility] TSH with Reflex Free T4on Interpretation and review of laboratory results Normal [facility] TSH Qn 1.52 m[IU]/L [facility] Comprehensive Metabolic Pane keo 09-25-2019 Albumin [Mass/Vol] 4.4 g/dL 3.2 - 5.2 g/dL [facility] ALP [Catalytic activity/Vol] 94 U/L 40 - 140 U/L [facility] ALT [Catalytic activity/Vol] 51 U/L 14 - 65 U/L [facility] Anion gap [Moles/Vol] 10 mmol/L 10 - 20 mmol/L [facility] AST [Catalytic activity/Vol] 18 U/L 0 - 45 U/L [facility] Bilirubin [Mass/Vol] 0.4 mg/dL 0 - 1.3 mg/dL [facility] Calcium [Mass/Vol] 9.5 mg/dL 8.4 - 10. 2 mg/dL [facility] Chloride [Moles/Vol] 104 mmol/L 98 - 10 8 mmol/L [facility] Creatinine [Mass/Vol] 0.90 mg/dL 0.4 - 1.1 mg/dL [facility] GFR/1.73 sq M predicted among non-blacks MDRD (S/P/Bld) [Vol rate/Area] The eGFR should be used for monitoring renal function only and not for medication dosing. [facility] GFR/1.73 sq M.predicted CKD-EPI (S/P/Bld) [Vol rate/Area] 90 >=60 mL/min/1.73 m2 [facility] Glucose [Mass/Vol] 82 mg/dL 65 - 99 mg[facility] [Moles/Vol] 28 mmol/L 21 - 32 mmol/L [facility] Potassium [Moles/Vol] 4.0 mmol/L 3.5 - 5.1 mmol/L [facility] Protein [Mass/Vol] 8.0 g/dL 6 - 8 g/dL [facility] Sodium [Moles/Vol] 138 mmol/L 135 - 145 mmol/L [facility] Urea nitrogen [Mass/Vol] 10 mg/dL 8 - 25 mg/d L [facility] Urea nitrogen/Creatinine [Mass ratio] 11.1 mg/mg [facility] Follicle Stimulating Hormone on 09-25-2019 Follitropin Qn 2.6 m[IU]/mL mIU/mL [facility] FSH Reference Range: (Units mIU/mL) Pubertal adult females, menstrual cycle phases: Menarche to pre-menopause Follicular 2.3 - 12.6 Mid-cycle peak 5.2 - 17.5 Luteal 1.7 - 12.9 Post-menopausal On Menopausal Hormone Therapy (MHT) 5.9 - 72.8 Not on MHT 12.7 - 132.2 [facility] Luteinizing Hormoneon 2019 Lutropin Qn 7.4 m[IU]/mL mIU/mL [facility] LH Reference Range (Units mIU/mL) Female: Pubertal adult females, menstrual cycle phase: Follicular 1.9 - 12.8 Mid-cycle peak 22.8 - 76.1 Luteal 0.6 - 13.5 Post-menopausal: On Menopausal Hormone Therapy (MHT) 1.1 - 52.4 Not on MHT 8.6 - 61.8 [facility] Otheron 09-25-2019 Interpretation and review of laboratory results Normal [facility] TSH with Reflex Free T4on TSH Qn 3.77 m[IU]/L [facility] Vital Signs Date Time Vital Sign [...] Diastolic blood pressure 74 mm[Hg] Keyla Gideon IT COMMUNICATIONS MANAGER-C Work Phone: [facility] 06-25-2025 15:16-0400 Systolic blood pressure 108 mm[Hg] Keyla Gideon IT COMMUNICATIONS MANAGER-C Work Phone: [facility] 06-13-2025 15:26-0400 Body height 162.56 cm Keyla Gideon IT COMMUNICATIONS MANAGER-C Work Phone: [facility] 06-13-2025 15:26-0400 Body mass index (BMI) [Ratio] 31.7 kg/m2 Keyla Gideon IT COMMUNICATIONS MANAGER-C Work Phone: [phone] [place] [address] 06-13-2025 15:26-0400 Body weight 83.91 kg Keyla Gideon IT COMMUNICATIONS MANAGER-C Work Phone: 4([phone] [place] [address] 06-13-2025 15:26-0400 Diastolic blood pressure 67 mm[Hg] Keyla Gideon IT COMMUNICATIONS MANAGER-C Work Phone: 2([phone])072-492688 [address] 06-13-2025 15:26-0400 Systolic blood pressure 101 mm[Hg] Keyla Gideon IT COMMUNICATIONS MANAGER-C Work Phone: 3(185)[phone] [place] [address] 05-22-2025 15:35-0400 Body height 162.56 cm Keyla Gideon IT COMMUNICATIONS MANAGER-C Work Phone: 6(624)[phone] [place] [address] 05-22-2025 15:35-0400 Body mass index (BMI) [Ratio] 31.6 kg/m2 Keyla Gideon IT COMMUNICATIONS MANAGER-C Work Phone: [facility] 05-22-2025 15:35-0400 Body weight 83.6 kg Keyla Gideon IT COMMUNICATIONS MANAGER-C Work Phone: 8(288)[phone] [place] [address] 05-22-2025 15:35-0400 Diastolic blood pressure 75 mm[Hg] Keyla Gideon IT COMMUNICATIONS MANAGER-C Work Phone: [facility] 05-22-2025 15:35-0400 Systolic blood pressure 115 mm[Hg] Keyla Gideon IT COMMUNICATIONS MANAGER-C Work Phone: [facility] 04-27-2025 11:42-0400 Body height 162.56 cm Keyla Meneses IT COMMUNICATIONS MANAGER-C Work Phone: [facility] 04-27-2025 11:42-0400 Body mass index (BMI) [Ratio] 30.4 kg/m2 Keyla Meneses IT COMMUNICATIONS MANAGER-C Work Phone: [facility] 04-27-2025 11:42-0400 Body weight 80.48 kg Keyla Meneses IT COMMUNICATIONS MANAGER-C Work Phone: [facility] 04-27-2025 11:42-0400 Diastolic blood pressure 69 mm[Hg] Keyla Meneses IT COMMUNICATIONS MANAGER-C Work Phone: [facility] 04-27-2025 11:42-0400 Systolic blood pressure 105 mm[Hg] Keyla Meneses IT COMMUNICATIONS MANAGER-C Work Phone: [facility] 03-30-2025 13:58-0400 Body height 162.56 cm Keyla Meneses IT COMMUNICATIONS MANAGER-C Work Phone: [facility] 03-30-2025 13:58-0400 Body mass index (BMI) [Ratio] 29 kg/m2 Keyla Meneses IT COMMUNICATIONS MANAGER-C Work Phone: [facility] 03-30-2025 13:58-0400 Body weight 76.77 kg Keyla Meneses IT COMMUNICATIONS MANAGER-C Work Phone: [facility] 03-30-2025 13:58-0400 Diastolic blood pressure 72 mm[Hg] Keyla Meneses IT COMMUNICATIONS MANAGER-C Work Phone: [facility] 03-30-2025 13:58-0400 Systolic blood pressure 116 mm[Hg] Keyla Meneses IT COMMUNICATIONS MANAGER-C Work Phone: [facility] 03-26-2025 11:59-0400 Body height 162.6 cm Anna Fuentes MD Work Phone: [facility] 03-26-2025 11:59-0400 Body mass index (BMI) [Ratio] 26.98 kg/m2 Anna Fuentes MD Work Phone: [facility] 03-26-2025 11:59-0400 Body weight 71.31 kg Anna Fuentes MD Work Phone: [facility] 03-26-2025 11:59-0400 Diastolic blood pressure 71 mm[Hg] Anna Fuentes MD Work Phone: [facility] 03-26-2025 11:59-0400 Heart rate 86 /min Anna Fuentes MD Work Phone: [facility] 03-26-2025 11:59-0400 Respiratory rate 16 /min Anna Fuentes MD Work Phone: [facility] 03-26-2025 11:59-0400 SaO2% (BldA) [Mass fraction] 100 % Anna Fuentes MD Work Phone: [facility] 03-26-2025 11:59-0400 Systolic blood pressure 111 mm[Hg] Anna Fuentes MD Work Phone: [facility] 03-01-2025 13:22-0400 Body height 162.56 cm Keyla Meneses NP-C Work Phone: [facility] 03-01-2025 13:22-0400 Body mass index (BMI) [Ratio] 28.5 kg/m2 Keyla Meneses NP-C Work Phone: [facility] 03-01-2025 13:22-0400 Body weight 75.29 kg Keyla Meneses IT COMMUNICATIONS MANAGER-C Work Phone: [facility] 03-01-2025 13:22-0400 Diastolic blood pressure 70 mm[Hg] Keyla Meneses NP-C Work Phone: [facility] 03-01-2025 13:22-0400 Systolic blood pressure 111 mm[Hg] Keyla Meneses IT COMMUNICATIONS MANAGER-C Work Phone: [facility] 01-18-2025 08:47-0400 Body height 162.56 cm Keyla Gideon IT COMMUNICATIONS MANAGER-C Work Phone: [facility] 01-18-2025 08:47-0400 Body mass index (BMI) [Ratio] 27.8 kg/m2 Keyla Meneses IT COMMUNICATIONS MANAGER-C Work Phone: [facility] 01-18-2025 08:47-0400 Body weight 73.53 kg Keyla Meneses IT COMMUNICATIONS MANAGER-C Work Phone: [facility] 01-18-2025 08:47-0400 Diastolic blood pressure 79 mm[Hg] Keyla Meneses IT COMMUNICATIONS MANAGER-C Work Phone: [facility] 01-18-2025 08:47-0400 Systolic blood pressure 122 mm[Hg] Keyla Meneses IT COMMUNICATIONS MANAGER-C Work Phone: [facility] 01-02-2025 08:40-0400 Body mass index (BMI) [Ratio] 27.8 kg/m2 Keyla Meneses IT COMMUNICATIONS MANAGER-C Work Phone: [facility] 01-02-2025 08:40-0400 Body weight 73.48 kg Keyla Meneses IT COMMUNICATIONS MANAGER-C Work Phone: [facility] 12-25-2024 13:58-0400 Body height 162.6 cm Anna Fuentes MD Work Phone: [facility] 12-25-2024 13:58-0400 Body mass index (BMI) [Ratio] 27 kg/m2 Anna Fuentes MD Work Phone: [facility] 12-25-2024 13:58-0400 Body weight 71.35 kg Anna Fuentes MD Work Phone: [facility] 12-25-2024 13:58-0400 Diastolic blood pressure 74 mm[Hg] Anna Fuentes MD Work Phone: [facility] 12-25-2024 13:58-0400 Heart rate 78 /min Anna Fuentes MD Work Phone: [facility] 12-25-2024 13:58-0400 Respiratory rate 16 /min Anna Fuentes MD Work Phone: [facility] 12-25-2024 13:58-0400 SaO2% (BldA) [Mass fraction] 100 % Anna Fuentes MD Work Phone: [facility] 12-25-2024 13:58-0400 Systolic blood pressure 115 mm[Hg] Anna Fuentes MD Work Phone: [facility] 11-09-2024 13:09-0500 Body height 162.6 cm Antonio Jessica PA-C Work Phone: [facility] 11-09-2024 13:09-0500 Body mass index (BMI) [Ratio] 27.46 kg/m2 Antonio Jessica PA-C Work Phone: [facility] 11-09-2024 13:09-0500 Body temperature 97.81 [degF] Antonio Jessica PA-C Work Phone: [facility] 11-09-2024 13:09-0500 Body weight 72.58 kg Antonio Jessica PA-C Work Phone: [facility] 11-09-2024 13:09-0500 Diastolic blood pressure 84 mm[Hg] Antonio Jessica PA-C Work Phone: [facility] 11-09-2024 13:09-0500 Heart rate 98 /min Antonio Jessica PA-C Work Phone: [facility] 11-09-2024 13:09-0500 Respiratory rate 16 /min Antonio Jessica PA-C Work Phone: [facility] 11-09-2024 13:09-0500 SaO2% (BldA) [Mass fraction] 97 % Antonio Jessica PA-C Work Phone: [facility] 11-09-2024 13:09-0500 Systolic blood pressure 129 mm[Hg] Antonio Jessica PA-C Work Phone: [facility] 05-18-2024 08:03-0400 Body mass index (BMI) [Ratio] 28.89 kg/m2 Keyla Meneses FOOD PRODUCT INSPECTOR Work Phone: [facility] 05-18-2024 08:03-0400 Body temperature 98.49 [degF] Keyla Meneses FOOD PRODUCT INSPECTOR Work Phone: [facility] 05-18-2024 08:03-0400 Body weight 78.74 kg Keyla Meneses FOOD PRODUCT INSPECTOR Work Phone: [facility] 05-18-2024 08:03-0400 Diastolic blood pressure 81 mm[Hg] Keyla Gideon FOOD PRODUCT INSPECTOR Work Phone: [facility] 05-18-2024 08:03-0400 Heart rate 81 /min Keyla Meneses FOOD PRODUCT INSPECTOR Work Phone: [facility] 05-18-2024 08:03-0400 SaO2% (BldA) [Mass fraction] 98 % Keyla Meneses FOOD PRODUCT INSPECTOR Work Phone: [facility] 05-18-2024 08:03-0400 Systolic blood pressure 116 mm[Hg] Keyla Gideon FOOD PRODUCT INSPECTOR Work Phone: [facility] 04-27-2024 07:47-0400 Body mass index (BMI) [Ratio] 28.44 kg/m2 Keyla Meneses FOOD PRODUCT INSPECTOR Work Phone: [facility] 04-27-2024 07:47-0400 Body temperature 98.4 [degF] Keyla Meneses FOOD PRODUCT INSPECTOR Work Phone: [facility] 04-27-2024 07:47-0400 Body weight 77.52 kg Keyla Meneses FOOD PRODUCT INSPECTOR Work Phone: [facility] 04-27-2024 07:47-0400 Diastolic blood pressure 79 mm[Hg] Keyla Gideon FOOD PRODUCT INSPECTOR Work Phone: [facility] 04-27-2024 07:47-0400 Heart rate 92 /min Keyla Meneses FOOD PRODUCT INSPECTOR Work Phone: [facility] 04-27-2024 07:47-0400 SaO2% (BldA) [Mass fraction] 98 % Keyla Meneses FOOD PRODUCT INSPECTOR Work Phone: [facility] 04-27-2024 07:47-0400 Systolic blood pressure 119 mm[Hg] Keyla Gideon FOOD PRODUCT INSPECTOR Work Phone: [facility] 04-06-2024 08:16-0400 Body mass index (BMI) [Ratio] 28.42 kg/m2 Keyla Meneses FOOD PRODUCT INSPECTOR Work Phone: [facility] 04-06-2024 08:16-0400 Body temperature 98.91 [degF] Keyla Meneses FOOD PRODUCT INSPECTOR Work Phone: [facility] 04-06-2024 08:16-0400 Body weight 77.47 kg Keyla Meneses FOOD PRODUCT INSPECTOR Work Phone: [facility] 04-06-2024 08:16-0400 Diastolic blood pressure 84 mm[Hg] Keyla Gideon FOOD PRODUCT INSPECTOR Work Phone: [facility] 04-06-2024 08:16-0400 Heart rate 97 /min Keyla Meneses FOOD PRODUCT INSPECTOR Work Phone: [facility] 04-06-2024 08:16-0400 SaO2% (BldA) [Mass fraction] 98 % Keyla Meneses FOOD PRODUCT INSPECTOR Work Phone: [facility] 04-06-2024 08:16-0400 Systolic blood pressure 127 mm[Hg] Keyla Meneses FOOD PRODUCT INSPECTOR Work Phone: [facility] 03-06-2024 13:32-0400 Body height 165.1 cm Keyla Meneses FOOD PRODUCT INSPECTOR Work Phone: [facility] 03-06-2024 13:32-0400 Body mass index (BMI) [Ratio] 28.51 kg/m2 Keyla Meneses FOOD PRODUCT INSPECTOR Work Phone: [facility] 03-06-2024 13:32-0400 Body temperature 98.4 [degF] Keyla Meneses FOOD PRODUCT INSPECTOR Work Phone: [facility] 03-06-2024 13:32-0400 Body weight 77.7 kg Keyla Gideon FOOD PRODUCT INSPECTOR Work Phone: [facility] 03-06-2024 13:32-0400 Diastolic blood pressure 87 mm[Hg] Keyla Meneses FOOD PRODUCT INSPECTOR Work Phone: [facility] 03-06-2024 13:32-0400 Heart rate 96 /min Keyla Meneses FOOD PRODUCT INSPECTOR Work Phone: [facility] 03-06-2024 13:32-0400 SaO2% (BldA) [Mass fraction] 97 % Keyla Meneses FOOD PRODUCT INSPECTOR Work Phone: [facility] 03-06-2024 13:32-0400 Systolic blood pressure 138 mm[Hg] Keyla Meneses FOOD PRODUCT INSPECTOR Work Phone: [facility] 12-17-2023 09:01-0400 Body height 162.6 cm Amy Stackner PA Work Phone: [facility] 12-17-2023 09:01-0400 Body mass index (BMI) [Ratio] 29.52 kg/m2 Amy Chi PA Work Phone: [facility] 12-17-2023 09:01-0400 Body temperature 98.2 [degF] Amy Chi PA Work Phone: [facility] 12-17-2023 09:01-0400 Body weight 78.02 kg Amy Chi PA Work Phone: [facility] 12-17-2023 09:01-0400 Diastolic blood pressure 83 mm[Hg] Amy Chi PA Work Phone: [facility] 12-17-2023 09:01-0400 Heart rate 92 /min Amy Chi PA Work Phone: [facility] 12-17-2023 09:01-0400 Respiratory rate 18 /min Amy Chi PA Work Phone: [facility] 12-17-2023 09:01-0400 SaO2% (BldA) [Mass fraction] 99 % Amy Chi PA Work Phone: [facility] 12-17-2023 09:01-0400 Systolic blood pressure 151 mm[Hg] Amy Chi PA Work Phone: [facility] 12-07-2023 16:32-0400 Body height 162.6 cm Amy Chi PA Work Phone: [facility] 12-07-2023 16:32-0400 Body mass index (BMI) [Ratio] 29.52 kg/m2 Amy Chi PA Work Phone: [facility] 12-07-2023 16:32-0400 Body temperature 98.29 [degF] Amy Chi PA Work Phone: [facility] 12-07-2023 16:32-0400 Body weight 78.02 kg Amy Chi PA Work Phone: [facility] 12-07-2023 16:32-0400 Diastolic blood pressure 81 mm[Hg] Amy Chi PA Work Phone: [facility] 12-07-2023 16:32-0400 Heart rate 106 /min Amy Cih PA Work Phone: [facility] 12-07-2023 16:32-0400 Respiratory rate 18 /min Amy Chi PA Work Phone: [facility] 12-07-2023 16:32-0400 SaO2% (BldA) [Mass fraction] 100 % Amy Chi PA Work Phone: [facility] 12-07-2023 16:32-0400 Systolic blood pressure 126 mm[Hg] Amy Chi PA Work Phone: [facility] 10-26-2023 15:37-0500 Body height 162.6 cm Lemuel Lee MD Work Phone: [facility] 10-26-2023 15:37-0500 Body mass index (BMI) [Ratio] 30.55 kg/m2 Lemuel Lee MD Work Phone: [facility] [employer] [facility] 10-26-2023 15:37-0500 Body weight 80.74 kg Lemuel Lee MD Work Phone: [facility] 10-26-2023 15:37-0500 Diastolic blood pressure 68 mm[Hg] Lemuel Lee MD Work Phone: [facility] 10-26-2023 15:37-0500 Systolic blood pressure 112 mm[Hg] Lemuel Lee MD Work Phone: [facility] 09-29-2023 16:27-0500 Body height 162.6 cm Jelena Gomezley WOOD TREATING INSPECTOR-FOOD PRODUCT INSPECTOR Work Phone: [facility] 09-29-2023 16:27-0500 Body mass index (BMI) [Ratio] 29.7 kg/m2 Jelena Jessica WOOD TREATING INSPECTOR-FOOD PRODUCT INSPECTOR Work Phone: [facility] 09-29-2023 16:27-0500 Body temperature 97.39 [degF] Jelena Jessica WOOD TREATING INSPECTOR-FOOD PRODUCT INSPECTOR Work Phone: [facility] 09-29-2023 16:27-0500 Body weight 78.47 kg Jelena Jessica WOOD TREATING INSPECTOR-FOOD PRODUCT INSPECTOR Work Phone: [facility] 09-29-2023 16:27-0500 Diastolic blood pressure 80 mm[Hg] Jelena Jessica WOOD TREATING INSPECTOR-FOOD PRODUCT INSPECTOR Work Phone: [facility] 09-29-2023 16:27-0500 Heart rate 89 /min Jelena Jessica WOOD TREATING INSPECTOR-FOOD PRODUCT INSPECTOR Work Phone: [facility] 09-29-2023 16:27-0500 Respiratory rate 16 /min Jelena Jessica WOOD TREATING INSPECTOR-FOOD PRODUCT INSPECTOR Work Phone: [facility] 09-29-2023 16:27-0500 SaO2% (BldA) [Mass fraction] 98 % Jelenaanalilia Walter WOOD TREATING INSPECTOR-FOOD PRODUCT INSPECTOR Work Phone: [facility] 09-29-2023 16:27-0500 Systolic blood pressure 127 mm[Hg] Jelena Walter WOOD TREATING INSPECTOR-FOOD PRODUCT INSPECTOR Work Phone: [facility] 09-01-2023 08:27-0500 Body mass index (BMI) [Ratio] 29.72 kg/m2 Татьяна Brooke FOOD PRODUCT INSPECTOR Work Phone: [facility] 09-01-2023 08:27-0500 Body temperature 98.01 [degF] Татьяна Brooke FOOD PRODUCT INSPECTOR Work Phone: [facility] 09-01-2023 08:27-0500 Body weight 81.01 kg Татьяна Brooke FOOD PRODUCT INSPECTOR Work Phone: [facility] 09-01-2023 08:27-0500 Diastolic blood pressure 86 mm[Hg] Татьяна Brooke FOOD PRODUCT INSPECTOR Work Phone: [facility] 09-01-2023 08:27-0500 Heart rate 86 /min Татьяна Brooke FOOD PRODUCT INSPECTOR Work Phone: [facility] 09-01-2023 08:27-0500 Respiratory rate 16 /min Татьяна Brooke FOOD PRODUCT INSPECTOR Work Phone: [facility] 09-01-2023 08:27-0500 SaO2% (BldA) [Mass fraction] 100 % Татьяна Brooke FOOD PRODUCT INSPECTOR Work Phone: [facility] 09-01-2023 08:27-0500 Systolic blood pressure 100 mm[Hg] Татьяна Brooke FOOD PRODUCT INSPECTOR Work Phone: [facility] 07-21-2023 15:24-0500 Body height 165.1 cm Татьяна Brooke FOOD PRODUCT INSPECTOR Work Phone: [facility] 07-21-2023 15:24-0500 Body mass index (BMI) [Ratio] 30.87 kg/m2 Татьяна Brooke FOOD PRODUCT INSPECTOR Work Phone: [facility] 07-21-2023 15:24-0500 Body temperature 98.2 [degF] Татьяна Brooke FOOD PRODUCT INSPECTOR Work Phone: [facility] 07-21-2023 15:24-0500 Body weight 84.14 kg Татьяна Brooke FOOD PRODUCT INSPECTOR Work Phone: [facility] 07-21-2023 15:24-0500 Diastolic blood pressure 82 mm[Hg] Татьяна Brooke FOOD PRODUCT INSPECTOR Work Phone: [facility] 07-21-2023 15:24-0500 Heart rate 107 /min Татьянаgatito Brooke FOOD PRODUCT INSPECTOR Work Phone: [facility] 07-21-2023 15:24-0500 Respiratory rate 16 /min Татьянаgatito Brooke FOOD PRODUCT INSPECTOR Work Phone: [facility] 07-21-2023 15:24-0500 SaO2% (BldA) [Mass fraction] 97 % Татьяна Brooke FOOD PRODUCT INSPECTOR Work Phone: [facility] 07-21-2023 15:24-0500 Systolic blood pressure 112 mm[Hg] Татьянаgatito Brooke FOOD PRODUCT INSPECTOR Work Phone: [facility] 01-07-2023 11:04-0400 Body height 162.5 cm Anand Cooley Other Phone: [facility] 01-07-2023 11:04-0400 Body temperature 98.96 [degF] Anand Cooley Other Phone: [facility] 01-07-2023 11:04-0400 Diastolic blood pressure 87 mm[Hg] Anand Cooley Other Phone: [facility] 01-07-2023 11:04-0400 Heart rate 122 /min Anand Cooley Other Phone: [facility] 01-07-2023 11:04-0400 Respiratory rate 16 /min Anand Cooley Other Phone: [facility] 01-07-2023 11:04-0400 SaO2% (BldA) [Mass fraction] 98 % Anand Cooley Other Phone: [facility] 01-07-2023 11:04-0400 Systolic blood pressure 144 mm[Hg] Anand Cooley Other Phone: [facility] 01-05-2023 10:10-0400 Body height 162.6 cm Amy PALMER Work Phone: [facility] 04-25-2023 10:10-0400 Body mass index (BMI) [Ratio] 29.18 kg/m2 Amy Stackner PA Work Phone: [facility] 01-05-2023 10:10-0400 Body temperature 98.6 [degF] Amy Stackner PA Work Phone: [facility] 01-05-2023 10:10-0400 Body weight 77.11 kg Amy Stackner PA Work Phone: [facility] 01-05-2023 10:10-0400 Diastolic blood pressure 74 mm[Hg] Amy Stackner PA Work Phone: [facility] 01-05-2023 10:10-0400 Heart rate 96 /min Amy Stackner PA Work Phone: [facility] 01-05-2023 10:10-0400 Respiratory rate 18 /min Amy Stackner PA Work Phone: [facility] 01-05-2023 10:10-0400 SaO2% (BldA) [Mass fraction] 99 % Amy Stcakner PA Work Phone: [facility] 01-05-2023 10:10-0400 Systolic blood pressure 131 mm[Hg] Amy Stackner PA Work Phone: [facility] 10-20-2022 15:13-0500 Body height 162.6 cm Lemuel Lee MD Work Phone: [facility] 10-20-2022 15:13-0500 Body mass index (BMI) [Ratio] 30.04 kg/m2 Lemuel Lee MD Work Phone: [facility] [employer] [facility] 10-20-2022 15:13-0500 Body weight 79.38 kg Lemuel Lee MD Work Phone: [facility] 10-20-2022 15:13-0500 Diastolic blood pressure 74 mm[Hg] Lemuel Lee MD Work Phone: [facility] 02-07-2023 15:13-0500 Systolic blood pressure 110 mm[Hg] Lemuel Lee MD Work Phone: [employer] [facility] 08-13-2022 16:20-0500 Body temperature 97.59 [degF] Lemuel Lee MD Work Phone: [facility] [employer] [facility] 08-13-2022 16:20-0500 Diastolic blood pressure 74 mm[Hg] Lemuel Lee MD Work Phone: [facility] [employer] [facility] 08-13-2022 16:20-0500 Heart rate 84 /min Lemuel Lee MD Work Phone: [facility] 08-13-2022 16:20-0500 Respiratory rate 18 /min Lemuel Lee MD Work Phone: [employer] 08-13-2022 16:20-0500 SaO2% (BldA) [Mass fraction] 98 % Lemuel Lee MD Work Phone: [facility] 08-13-2022 16:20-0500 Systolic blood pressure 131 mm[Hg] Lemuel Lee MD Work Phone: [facility] 08-11-2022 04:06-0500 Body height 162.6 cm Lemuel Lee MD Work Phone: [facility] 08-11-2022 04:06-0500 Body mass index (BMI) [Ratio] 33.15 kg/m2 Lemuel Lee MD Work Phone: [facility] 08-11-2022 04:06-0500 Body weight 87.6 kg Lemuel Lee MD Work Phone: [facility] 08-05-2022 07:26-0500 Body height 162.6 cm Lemuel Lee MD Work Phone: [facility] 08-05-2022 07:26-0500 Body mass index (BMI) [Ratio] 33.13 kg/m2 Lemuel Lee MD Work Phone: [facility] [facility] 08-05-2022 07:26-0500 Body weight 87.54 kg Lemuel Lee MD Work Phone: [facility] 08-05-2022 07:26-0500 Diastolic blood pressure 72 mm[Hg] Lemuel Lee MD Work Phone: [facility] 08-05-2022 07:26-0500 Systolic blood pressure 124 mm[Hg] Lemuel Lee MD Work Phone: [facility] 07-30-2022 15:04-0500 Body height 162.6 cm Lemuel Lee MD Work Phone: [facility] 07-30-2022 15:04-0500 Body mass index (BMI) [Ratio] 32.79 kg/m2 Lemuel Lee MD Work Phone: [facility] 07-30-2022 15:04-0500 Body weight 86.64 kg Lemuel Lee MD Work Phone: [facility] 07-30-2022 15:04-0500 Diastolic blood pressure 74 mm[Hg] Lemuel Lee MD Work Phone: [facility] 07-30-2022 15:04-0500 Systolic blood pressure 134 mm[Hg] Lemuel Lee MD Work Phone: [facility] 07-23-2022 08:56-0500 Body height 162.6 cm Lemuel Lee MD Work Phone: [facility] 07-23-2022 08:56-0500 Body mass index (BMI) [Ratio] 32.61 kg/m2 Lemuel Lee MD Work Phone: [facility] 07-23-2022 08:56-0500 Body weight 86.18 kg Lemuel Lee MD Work Phone: [facility] 07-23-2022 08:56-0500 Diastolic blood pressure 82 mm[Hg] Lemuel Lee MD Work Phone: [facility] 07-23-2022 08:56-0500 Systolic blood pressure 120 mm[Hg] Lemuel Lee MD Work Phone: [facility] 07-21-2022 07:24-0500 Body height 162.6 cm Татьяна Brooke FOOD PRODUCT INSPECTOR Work Phone: [facility] 07-21-2022 07:24-0500 Body mass index (BMI) [Ratio] 32.56 kg/m2 Татьяна Brooke FOOD PRODUCT INSPECTOR Work Phone: [facility] 07-21-2022 07:24-0500 Body temperature 98.2 [degF] Татьяна Brooke FOOD PRODUCT INSPECTOR Work Phone: [facility] 07-21-2022 07:24-0500 Body weight 86.05 kg Татьяна Brooke FOOD PRODUCT INSPECTOR Work Phone: [facility] 07-21-2022 07:24-0500 Diastolic blood pressure 84 mm[Hg] Татьяна Brooke FOOD PRODUCT INSPECTOR Work Phone: [facility] 07-21-2022 07:24-0500 Heart rate 80 /min Татьяна Brooke FOOD PRODUCT INSPECTOR Work Phone: [facility] 07-21-2022 07:24-0500 Respiratory rate 16 /min Татьяна Brooke FOOD PRODUCT INSPECTOR Work Phone: [facility] 07-21-2022 07:24-0500 Systolic blood pressure 120 mm[Hg] Татьяна Brooke FOOD PRODUCT INSPECTOR Work Phone: [facility] 07-17-2022 11:14-0400 Body height 162.6 cm Lauren Perez APRN-FOOD PRODUCT INSPECTOR Work Phone: [facility] 07-17-2022 11:14-0400 Body mass index (BMI) [Ratio] 31.76 kg/m2 Lauren Perez APRN-FOOD PRODUCT INSPECTOR Work Phone: [facility] 07-17-2022 11:14-0400 Body weight 83.92 kg Lauren Perez APRN-FOOD PRODUCT INSPECTOR Work Phone: [facility] 07-17-2022 11:14-0400 Diastolic blood pressure 78 mm[Hg] Lauren Perez APRN-FOOD PRODUCT INSPECTOR Work Phone: [facility] 07-17-2022 11:14-0400 Systolic blood pressure 116 mm[Hg] Lauren Perez BIJAL-FOOD PRODUCT INSPECTOR Work Phone: [facility] 07-13-2022 12:49-0400 Body mass index (BMI) [Ratio] 32.54 kg/m2 Josse Walter MD Work Phone: [facility] 07-13-2022 12:49-0400 Body weight 86 kg Josse Walter MD Work Phone: [facility] 07-13-2022 12:49-0400 Diastolic blood pressure 80 mm[Hg] Josse Walter MD Work Phone: [facility] 07-13-2022 12:49-0400 Systolic blood pressure 120 mm[Hg] Josse Walter MD Work Phone: [facility] 07-09-2022 08:41-0400 Body height 162.6 cm Lemuel Lee MD Work Phone: [facility] 07-09-2022 08:41-0400 Body mass index (BMI) [Ratio] 32.27 kg/m2 Lemuel Lee MD Work Phone: [facility] 07-09-2022 08:41-0400 Body weight 85.28 kg Lemuel Lee MD Work Phone: [facility] [employer] [facility] 07-09-2022 08:41-0400 Diastolic blood pressure 62 mm[Hg] Lemuel Lee MD Work Phone: [facility] 07-09-2022 08:41-0400 Systolic blood pressure 118 mm[Hg] Lemuel Lee MD [facility] Phone[facility] 06-29-2022 09:11-0400 Body height 162.6 cm Lemuel Lee MD Work Phone: [facility] 06-29-2022 09:11-0400 Body mass index (BMI) [Ratio] 31.93 kg/m2 Lemuel Lee MD Work Phone: [facility] 06-29-2022 09:11-0400 Body weight 84.37 kg Lemuel Lee MD Work Phone: [facility] 06-29-2022 09:11-0400 Diastolic blood pressure 78 mm[Hg] Lemuel Lee MD Work Phone: [facility] 06-29-2022 09:11-0400 Systolic blood pressure 120 mm[Hg] Lemuel Lee MD Work Phone: [facility] 06-25-2022 09:08-0400 Body height 162.6 cm Lemuel Lee MD Work Phone: [facility] 06-25-2022 09:08-0400 Body mass index (BMI) [Ratio] 31.58 kg/m2 Lemuel Lee MD Work Phone: 7(600)813-330357 [place] [address] 06-25-2022 09:08-0400 Body weight 83.46 kg Lemuel Lee MD Work Phone: 2(616)987-813657 [place] [address] 06-25-2022 09:08-0400 Diastolic blood pressure 78 mm[Hg] Lemuel Lee MD Work Phone: 4(579)817-658157 [place] [address] 06-25-2022 09:08-0400 Systolic blood pressure 108 mm[Hg] Lemuel Lee MD Work Phone: [facility] 06-18-2022 10:06-0400 Body height 162.6 cm Lemuel Lee MD Work Phone: [facility] 06-18-2022 10:06-0400 Body mass index (BMI) [Ratio] 31.93 kg/m2 Lemuel Lee MD Work Phone: [facility] 06-18-2022 10:06-0400 Body weight 84.37 kg Lemuel Lee MD Work Phone: [facility] 06-18-2022 10:06-0400 Diastolic blood pressure 78 mm[Hg] Lemuel Lee MD Work Phone: [facility] 06-18-2022 10:06-0400 Systolic blood pressure 102 mm[Hg] Lemuel Lee MD Work Phone: [facility] 06-17-2022 14:32-0400 Diastolic blood pressure 76 mm[Hg] Татьяна Villegas RN [facility] 06-17-2022 14:32-0400 Heart rate 83 /min Татьяна Villegas RN [facility] 06-17-2022 14:32-0400 Respiratory rate 18 /min Татьяна Villegas RN [facility] 06-17-2022 14:32-0400 Systolic blood pressure 120 mm[Hg] Татьяна Villegas RN [facility] 05-22-2022 14:22-0400 Body mass index (BMI) [Ratio] 32.1 kg/m2 Josse Walter MD Work Phone: [facility] 05-22-2022 14:22-0400 Body weight 84.82 kg Josse Walter MD Work Phone: [facility] 05-22-2022 14:22-0400 Diastolic blood pressure 80 mm[Hg] Josse Walter MD Work Phone: [facility] 05-22-2022 14:22-0400 Systolic blood pressure 130 mm[Hg] Josse Walter MD Work Phone: [facility] 04-30-2022 10:12-0400 Body height 162.6 cm Lauren Perez WOOD TREATING INSPECTOR-FOOD PRODUCT INSPECTOR Work Phone: [facility] 04-30-2022 10:12-0400 Body mass index (BMI) [Ratio] 30.55 kg/m2 Lauren Perez WOOD TREATING INSPECTOR-FOOD PRODUCT INSPECTOR Work Phone: [facility] 04-30-2022 10:12-0400 Body weight 80.74 kg Lauren Perez WOOD TREATING INSPECTOR-FOOD PRODUCT INSPECTOR Work Phone: [facility] 04-30-2022 10:12-0400 Diastolic blood pressure 62 mm[Hg] Lauren Perez WOOD TREATING INSPECTOR-FOOD PRODUCT INSPECTOR Work Phone: [facility] 04-30-2022 10:12-0400 Systolic blood pressure 106 mm[Hg] Lauren Perez WOOD TREATING INSPECTOR-FOOD PRODUCT INSPECTOR Work Phone: [facility] 04-09-2022 10:04-0400 Body mass index (BMI) [Ratio] 29.87 kg/m2 Josse Walter MD Work Phone: [facility] 04-09-2022 10:04-0400 Body weight 78.93 kg Josse Walter MD Work Phone: [facility] 04-09-2022 10:04-0400 Diastolic blood pressure 60 mm[Hg] Josse Walter MD Work Phone: [facility] 04-09-2022 10:04-0400 Systolic blood pressure 140 mm[Hg] Josse Walter MD Work Phone: [facility] 03-12-2022 15:07-0400 Body height 162.6 cm Lemuel Lee MD Work Phone: [facility] 03-12-2022 15:07-0400 Body mass index (BMI) [Ratio] 28.67 kg/m2 Lemuel Lee MD Work Phone: [facility] 03-12-2022 15:07-0400 Body weight 75.75 kg Lemuel Lee MD Work Phone: [facility] 03-12-2022 15:07-0400 Diastolic blood pressure 72 mm[Hg] Lemuel Lee MD Work Phone: [facility] 03-12-2022 15:07-0400 Systolic blood pressure 110 mm[Hg] Lemuel Lee MD Work Phone: [facility] 02-02-2022 14:47-0400 Body mass index (BMI) [Ratio] 27.67 kg/m2 Josse Walter MD Work Phone: [facility] 02-02-2022 14:47-0400 Body weight 73.12 kg Josse Walter MD Work Phone: [facility] 02-02-2022 14:47-0400 Diastolic blood pressure 80 mm[Hg] Josse Walter MD Work Phone: [facility] 02-02-2022 14:47-0400 Systolic blood pressure 110 mm[Hg] Josse Walter MD Work Phone: [facility] 01-09-2022 13:38-0400 Body height 162.6 cm Avg Chioma Gal [id number] [facility] 01-09-2022 13:38-0400 Body mass index (BMI) [Ratio] 27.46 kg/m2 Avg Chioma Gal [id number] [facility] 01-09-2022 13:38-0400 Body weight 72.58 kg Avg Chioma Gal [id number] [facility] 01-09-2022 13:38-0400 Diastolic blood pressure 78 mm[Hg] Avg Chioma Gal [id number] [facility] 01-09-2022 13:38-0400 Systolic blood pressure 120 mm[Hg] Avg Chioma Gal [id number] [facility] 12-17-2021 08:00-0400 Body height 162.6 cm Lemuel Lee MD Work Phone: [facility] 12-17-2021 08:00-0400 Body mass index (BMI) [Ratio] 26.95 kg/m2 Lemuel Lee MD Work Phone: [facility] 12-17-2021 08:00-0400 Body weight 71.22 kg Lemuel Lee MD Work Phone: [facility] 12-17-2021 08:00-0400 Diastolic blood pressure 68 mm[Hg] Lemuel Lee MD Work Phone: [facility] 12-17-2021 08:00-0400 Systolic blood pressure 122 mm[Hg] Lemuel Lee MD Work Phone: [facility] 11-24-2021 07:07-0400 Body height 162.6 cm Lemuel Lee MD Work Phone: [facility] 11-24-2021 07:07-0400 Body mass index (BMI) [Ratio] 26.43 kg/m2 Lemuel Lee MD Work Phone: [facility] 11-24-2021 07:07-0400 Body weight 69.85 kg Lemuel Lee MD Work Phone: [facility] 11-24-2021 07:07-0400 Diastolic blood pressure 68 mm[Hg] Lemuel Lee MD Work Phone: [facility] 11-24-2021 07:07-0400 Systolic blood pressure 118 mm[Hg] Lemuel Lee MD Work Phone: [facility] 01-30-2020 08:02-0400 BMI (Body Mass Index) 29.32 kg/m2 [facility] 01-30-2020 08:02-0400 Body Temperature 98.49 [degF] [facility] 01-30-2020 08:02-0400 Body weight 77.47 kg [facility] 01-30-2020 08:02-0400 BP Diastolic 70 mm[Hg] [facility] 01-30-2020 08:02-0400 BP Systolic 120 mm[Hg] [facility] 01-30-2020 08:02-0400 Height 162.6 cm [facility] 01-30-2020 08:02-0400 Pulse (Heart Rate) 88 /min [facility] 01-30-2020 08:02-0400 Respiratory Rate 14 /min [facility] 10-12-2019 16:36-0500 BMI (Body Mass Index) 30.93 kg/m2 [facility] 10-12-2019 16:36-0500 Body Temperature 98.4 [degF] [facility] 10-12-2019 16:36-0500 Body weight 81.74 kg [facility] 10-12-2019 16:36-0500 BP Diastolic 80 mm[Hg] [facility] 10-12-2019 16:36-0500 BP Systolic 110 mm[Hg] [facility] 10-12-2019 16:36-0500 Height 162.6 cm [facility] 10-12-2019 16:36-0500 Pulse (Heart Rate) 92 /min [facility] 10-12-2019 16:36-0500 Respiratory Rate 16 /min [facility] 09-25-2019 17:06-0500 BMI (Body Mass Index) 31.58 kg/m2 [facility] 09-25-2019 17:06-0500 Body Temperature 98.4 [degF] [facility] 09-25-2019 17:06-0500 Body weight 83.46 kg [facility] 09-25-2019 17:06-0500 BP Diastolic 80 mm[Hg] [facility] 09-25-2019 17:06-0500 BP Systolic 130 mm[Hg] [facility] 09-25-2019 17:06-0500 Height 162.6 cm [facility] 09-25-2019 17:06-0500 Pulse (Heart Rate) 82 /min [facility] 09-25-2019 17:06-0500 Respiratory Rate 16 /min [facility] 01-21-2018 12:52-0400 Body Temperature 98.1 [degF] [facility] 01-21-2018 12:52-0400 BP Diastolic 70 mm[Hg] [facility] 01-21-2018 12:52-0400 BP Systolic 118 mm[Hg] [facility] 01-21-2018 12:52-0400 Pulse (Heart Rate) 70 /min [facility] 01-21-2018 12:52-0400 Respiratory Rate 16 /min [facility] 01-21-2018 12:52-0400 Weight 78.29 kg [facility] Encounters Encounter Date Encounter Type Care Provider Facility Start: 08-10-2025 ambulatory Keyla Meneses Facilit y:[facility] Start: 07-27-2025 ambulatory Keyla Meneses Facilit y:[facility] Start: 07-24-2025 End: 07-24-2025 ambulatory Keyla Meneses Facility:[facility] Start: 07-20-2025 End: 07-20-2025 ambulatory Emmanuelle Contreras Facility:[facility] Start: 07-17-2025 End: 07-17-2025 ambulatory Emmanuelle Contreras Facility:[facility] Start: 07-16-2025 ambulatory KEYLA MENESES [facility] Ambulatory Start: 07-13-2025 End: 07-13-2025 ambulatory Keyla Meneses Facility:[facility] Start: 07-13-2025 ambulatory Keyla Meneses Facilit y:[facility] Start: 07-10-2025 End: 07-10-2025 ambulatory Emma Bianca Facility:[facility] Start: 07-05-2025 End: 07-05-2025 Orders Only Keyla Meneses FOOD PRODUCT INSPECTOR Work Phone: [facility] Comment on above: Anxiety and depressi on (Primary Dx) Start: 06-26-2025 End: 06-30-2025 ambulatory KEYLA MENESES [facility] Ambulatory Start: 06-25-2025 End: 06-25-2025 Patient encounter procedure Nel HANSEN -[facility] Work Phone: Start: 06-25-2025 End: 06-25-2025 ambulatory Keyla Meneses IT COMMUNICATIONS MANAGER-C Work Phone: [facility] Start: 06-13-2025 End: 06-13-[address] Emmanuelle Contreras DO -[facility] Work Phone: Start: 06-13-2025 End: 06-13-2025 ambulatory Keyla Meneses IT COMMUNICATIONS MANAGER-C Work Phone: -[facility] Start: 06-12-2025 End: 06-13-2025 ambulatory ROSHNI DAVIDSON [facility] Start: 05-22-2025 End: 05-22-2025 Patient encounter procedure Emma Bianca IT COMMUNICATIONS MANAGER-C -[facility] Work Phone: Start: 05-22-2025 End: 05-22-2025 ambulatory Keyla Meneses IT COMMUNICATIONS MANAGER-C Work Phone: -[facility] Start: 04-27-2025 End: 04-27-2025 Patient encounter procedure Nel HANSEN -[facility] Work Phone: Start: 04-27-2025 End: 04-27-2025 ambulatory Keyla Era Meneses IT COMMUNICATIONS MANAGER-C Work Phone: -[facility] Start: 04-10-2025 End: 04-10-2025 ambulatory EMMANUELLE HERNÁNDEZ [facility] Start: 03-30-2025 End: 03-30-[address] Ayala Thompson MD -[facility] Work Phone: Start: 03-30-2025 End: 03-30-2025 ambulatory Keyla Era Gideon IT COMMUNICATIONS MANAGER-C Work Phone: -[facility] Start: 03-26-2025 End: 03-26-2025 Office outpatient visit 15 minutes Upsol Fuentes MD Work Phone: [facility] Comment on above: Unspecified mood (af fective) disorder (HCC) (Primary Dx) Start: 03-26-2025 End: 03-26-2025 ambulatory KEYLA KEOLIZ GIDEON [facility] Ambulatory Start: 03-05-2025 ambulatory KEYLA LONNAE GIDEON [facility] Ambulatory Start: 03-01-2025 End: 03-01-[address] Emmanuelle Contreras DO -[facility] Work Phone: Start: 03-01-2025 End: 03-01-2025 ambulatory Keyla Meneses IT COMMUNICATIONS MANAGER-C Work Phone: [facility] Work Phone: Start: 03-01-2025 End: 03-01-2025 ambulatory Keyla L Gideon Facility:[facility] Start: 01-22-2025 ambulatory KEYLA HERBIE GIDEON [facility] Ambulatory Start: 01-18-2025 End: 01-18-2025 ambulatory Keylasusan Meneses IT COMMUNICATIONS MANAGER-C Work Phone: [facility] Work Phone: Start: 01-18-2025 End: 01-18-2025 Patient encounter procedure Nel HANSENM -Laboratory, Specimen Work Phone: Start: 01-18-2025 End: 01-18-2025 Patient encounter [facility] Work [facility]: Start: 01-18-2025 End: 01-18-2025 ambulatory Keyla Meneses Facility:[facility] Start: 01-18-2025 End: 01-18-2025 ambulatory Keyla Meneses Facility:[facility] Start: 01-02-2025 End: 01-02-2025 ambulatory Keyla Meneses Facility:[facility] Start: 01-02-2025 End: 01-02-2025 Patient encounter procedure Emma Valenzuela IT COMMUNICATIONS MANAGER-C -[facility] Work Phone: Start: 12-25-2024 End: 12-25-2024 Office outpatient visit 25 minutes Anna Fuentes MD Work Phone: [facility] Comment on above: Unspecified mood (af fective) disorder (HCC) (Primary Dx); as incidental finding Start: 12-25-2024 End: 12-25-2024 ambulatory [facility] Ambulatory Start: 11-09-2024 End: 11-09-2024 Patient encounter procedure Antonio Lopez PA-C Work Phone: [facility] Comment on above: Acute rhinosinusitis (Primary Dx) Start: 11-09-2024 End: 11-09-2024 ambulatory ANAND EDMOND [facility] Start: 10-02-2024 End: 10-02-2024 Refill Anna Fuentes MD Work Phone: [facility] Start: 07-27-2024 End: 07-27-2024 Refill Anna Fuentes MD Work Phone: [facility] Start: 06-15-2024 End: 06-19-2024 ambulatory KEYLA MEYER [facility] Start: 05-19-2024 End: 05-19-2024 Documentation procedure Sussy Degroot MA [facility] Comment on above: Care coordination BH P Start: 05-18-2024 End: 05-18-2024 Office outpatient visit 15 minutes Keyla Meneses FOOD PRODUCT INSPECTOR Work Phone: [facility] Comment on above: Anxiety and depressi on (Primary Dx) Start: 05-05-2024 End: 05-05-2024 Documentation procedure Sussy Degroot MA [facility] Comment on above: Care coordination P Start: 04-28-2024 End: 04-28-2024 Documentation procedure Sussy Degroot MA [facility] Comment on above: Care coordination P Start: 04-27-2024 End: 04-27-2024 Office outpatient visit 15 minutes Keyla Meneses FOOD PRODUCT INSPECTOR Work Phone: [facility] Comment on above: Anxiety and depressi on (Primary Dx) Start: 04-25-2024 End: 04-29-2024 ambulatory KEYLA MENESES [facility] Start: 04-06-2024 End: 04-06-2024 Office outpatient visit 15 minutes Keyla Meneses FOOD PRODUCT INSPECTOR Work Phone: [facility] Comment on above: Anxiety (Primary Dx) ; Chronic fatigue Start: 03-06-2024 End: 03-06-2024 Office outpatient visit 15 minutes Keyla Meneses FOOD PRODUCT INSPECTOR Work Phone: [facility] Comment on above: Anxiety (Primary Dx) Start: 12-17-2023 End: 12-17-2023 Office outpatient visit 15 minutes Amy PALMER Work Phone: [facility] Comment on above: Acute non-recurrent frontal sinusitis (Primary Dx) Start: 12-13-2023 ambulatory FABIÁN GREEN [facility] Start: 12-07-2023 ambulatory AMY [facility] Start: 12-07-2023 End: 12-07-2023 Office outpatient visit 15 minutes Татьяна Brooke FOOD PRODUCT INSPECTOR Work Phone: [facility] Comment on above: Sore throat (Primary Dx) Start: 10-26-2023 ambulatory ANAND COOLEY [facility] Start: 10-26-2023 Encounter for gynecological examination (general) (routine) without abnormal findings LEMUEL LEE [facility] Start: 10-26-2023 End: 10-26-2023 Patient encounter procedure Lemuel Lee MD Work Phone: [facility] Work Phone: Start: 10-26-2023 End: 10-26-2023 Periodic preventive med est patient 18-39 yrs Lemuel Lee MD Work Phone: [facility]RIEF[facility] Comment on above: Well woman exam with routine gynecological exam (Primary Dx); Cervical cancer screening Start: 09-29-2023 ambulatory ANAND Yoder [facility] Start: 09-29-2023 End: 09-29-2023 Office outpatient visit 15 minutes Jelena Walter APRN-FOOD PRODUCT INSPECTOR Work Phone: [facility] Comment on above: Acute bronchitis, un specified organism (Primary Dx); Acute cough Start: 09-01-2023 End: 09-01-2023 Office outpatient visit 25 minutes Татьяна Brooke CNP Work Phone: [facility] Comment on above: Anxiety (Primary Dx) Start: 07-21-2023 End: 07-21-2023 Initial preventive medicine new pt age 18-39yrs Татьяна Brooke CNP Work Phone: [facility] Comment on above: Preventative health care (Primary Dx); Anxiety Start: 07-21-2023 End: 07-21-2023 Patient encounter status Татьяна Brooke CNP Work Phone: [facility] Work Phone: Start: 07-09-2023 ambulatory ANAND Yoder [facility] Start: 07-06-2023 ambulatory ANAND Yoder [facility] Start: 04-01-2023 ambulatory [facility] Start: 01-07-2023 End: 01-07-2023 Emergency department patient visit Marie Fabiano [place] [id number] Start: 01-05-2023 ambulatory SELF SELF [facility] Start: 01-05-2023 End: 01-05-2023 Office outpatient visit 15 minutes Amy PALMER Work Phone: [facility] Comment on above: Viral URI with cough (Primary Dx); Acute cough Start: 12-31-2022 End: 12-31-2022 Emergency department patient visit Marie Mario [facility] Start: 10-20-2022 End: 10-20-2022 Office outpatient visit 10 minutes Lemuel Lee MD Work Phone: [facility] BRIEFER Comment on above: Disruption of episio keyanna wound in the puerperium (Primary Dx) Start: 08-11-2022 End: 08-13-2022 Evaluation and management of inpatient Lemuel Lee MD Work Phone: [facility] Comment on above: Encounter for induct ion of labor Start: 08-05-2022 End: 08-05-2022 Subsequent care visit Lemuel Lee MD Work Phone: [employer] [facility]RIEF[facility] Comment on above: Diet controlled gest ational diabetes mellitus (GDM) in third trimester (Primary Dx); Supervision of high risk in third trimester; 37 weeks gestation of Start: 07-30-2022 End: 07-30-2022 Subsequent care visit Lemuel Lee MD Work Phone: [employer] [facility]RIEF[facility] Comment on above: Diet controlled gest ational diabetes mellitus (GDM) in third trimester (Primary Dx); Supervision of high risk in third trimester; 37 weeks gestation of Start: 07-23-2022 End: 07-23-2022 Subsequent care visit Lemuel Lee MD Work Phone: [employer] [facility] CASE BRIEFER Comment on above: Diet controlled gest ational diabetes mellitus (GDM) in third trimester (Primary Dx); Supervision of high risk in third trimester; 36 weeks gestation of Start: 07-21-2022 End: 07-21-2022 Patient encounter status Татьяна Brooke CNP Work Phone: [facility] Start: 07-21-2022 End: 07-21-2022 Periodic preventive med est patient 18-39 yrs Татьяна Brooke FOOD PRODUCT INSPECTOR Work Phone: [facility] Comment on above: Preventative health care (Primary Dx) Start: 07-17-2022 End: 07-17-2022 Subsequent care visit Lauren Perez WOOD TREATING INSPECTOR-FOOD PRODUCT INSPECTOR Work Phone: [facility]EF[facility] Comment on above: Supervision of high risk in third trimester (Primary Dx); Diet controlled gestational diabetes mellitus (GDM) in third trimester; 35 weeks gestation of Start: 07-13-2022 End: 07-13-2022 Subsequent care visit Josse Walter MD Work Phone: [facility] Comment on above: RUQ pain (Primary Dx ); Abnormal maternal glucose tolerance, antepartum; Diet controlled gestational diabetes mellitus (GDM) in third trimester Start: 07-09-2022 End: 07-09-2022 Subsequent care visit Lemuel Lee MD Work Phone: [facility] BRIEFER Comment on above: Diet controlled gest ational diabetes mellitus (GDM) in third trimester (Primary Dx); Encounter for supervision of high risk in third trimester, antepartum; 34 weeks gestation of Start: 06-29-2022 End: 06-29-2022 Subsequent care visit Lemuel Lee MD Work Phone: [facility] Comment on above: Diet controlled gest ational diabetes mellitus (GDM) in third trimester (Primary Dx); Encounter for supervision of high risk in third trimester, antepartum; 32 weeks gestation of Start: 06-25-2022 End: 06-25-2022 Subsequent care visit Josse Walter MD Work Phone: [facility] Comment on above: Diet controlled gest ational diabetes mellitus (GDM) in third trimester (Primary Dx); Encounter for supervision of high risk in third trimester, antepartum; 32 weeks gestation of Start: 06-18-2022 End: 06-18-2022 Subsequent care visit Lemuel Lee MD Work Phone: [facility] Comment on above: Diet controlled gest ational diabetes mellitus (GDM) in third trimester (Primary Dx); Encounter for supervision of high risk in third trimester, antepartum; 31 weeks gestation of ; Ultrasound scan done for inability to hear heart tones Start: 06-18-2022 End: 06-18-2022 Subsequent hospital visit by physician Lemuel Lee MD Work Phone: [facility] Start: 06-17-2022 End: 06-17-2022 Nutrition therapy Lemuel Lee MD Work Phone: [facility] Comment on above: Diet controlled gest ational diabetes mellitus (GDM), antepartum (Primary Dx) Start: 06-16-2022 End: 06-16-2022 Nutrition therapy Lemuel Lee MD Work Phone: [facility] Comment on above: Diet controlled gest ational diabetes mellitus (GDM), antepartum Start: 06-15-2022 End: 06-15-2022 Subsequent hospital visit by physician Lemuel Lee MD Work Phone[facility] [employer] [facility] Comment on above: Arrived Start: 05-22-2022 End: 05-22-2022 Subsequent care visit Josse Walter MD Work Phone: [facility]RIEFER Comment on above: Decreased move ments in second trimester, single or unspecified fetus (Primary Dx) Start: 04-30-2022 End: 04-30-2022 Subsequent care visit Lemuel Lee MD Work Phone: [facility] CASE BRIEFER Comment on above: Encounter for superv ision of normal first in second trimester (Primary Dx); 24 weeks gestation of Start: 04-30-2022 End: 04-30-2022 Subsequent hospital visit by physician Josse Walter MD Work Phone: [facility] Start: 04-09-2022 End: 04-09-2022 Subsequent care visit Josse Walter MD Work Phone: [facility] BRIEF[facility] Comment on above: care in sec ond trimester (Primary Dx) Start: 04-09-2022 End: 04-09-2022 Subsequent hospital visit by physician Lemuel Lee MD Work Phone: [facility] Start: 03-12-2022 End: 03-12-2022 Subsequent care visit Lemuel Lee MD Work Phone: [employer] [facility] BRIEFER Comment on above: Encounter for superv ision [...] care visit Josse Walter MD Work Phone: [employer] [facility] BRIEFER Comment on above: Dysuria (Primary Dx) Start: 01-26-2022 End: 01-26-2022 Subsequent hospital visit by physician Josse Walter MD Work Phone: [facility] Start: 01-09-2022 End: 01-09-2022 Office outpatient visit 5 minutes Lemuel Lee MD Work Phone: [employer] CASE BRIEFER Comment on above: 8 weeks gestation of (Primary Dx) Start: 12-17-2021 End: 12-17-2021 Office outpatient visit 15 minutes Lemuel Lee MD Work Phone: [employer] CASE BRIEFER Comment on above: Pelvic pain in pregn deonna, antepartum, first trimester (Primary Dx) Start: 11-24-2021 End: 11-24-2021 Office outpatient visit 15 minutes Lemuel Lee MD Work Phone: [employer] CASE BRIEFER Comment on above: Infertility associat ed with anovulation (Primary Dx) Start: 01-30-2020 End: 01-30-2020 Office outpatient visit 25 minutes Татьяна Brooke Work Phone: [facility] Comment on above: Weight gain (Primary Dx); PCOS (polycystic ovarian syndrome) Start: 10-12-2019 End: 10-12-2019 Office outpatient visit 25 minutes Татьяна Brooke Work Phone: [facility] Comment on above: PCOS (polycystic ova chandler syndrome) (Primary Dx) Start: 09-25-2019 End: 09-25-2019 Office outpatient visit 25 minutes Татьяна Brooke Work Phone: [facility] Comment on above: Weight gain (Primary Dx) Start: 01-31-2019 End: 02-04-2019 Patient encounter procedure ANAND COOLEY [facility] Start: 01-21-2018 End: 01-21-2018 Office/outpatient visit, est, level 3 Anand Herrmannwell Work Phone: [facility] Start: 08-31-2017 End: 08-31-2017 Emergency department patient visit Michael Aisha Facility:[facility] Date Procedure Procedure Detail Performing Clinician Start: 06-13-2025 Serologic test for syphilis Keyla Meneses IT COMMUNICATIONS MANAGER-C Work Phone: Start: 03-01-2025 Hepatitis C antibody measurement Keylasusan Meneses IT COMMUNICATIONS MANAGER-C Work Phone: Comment on above: Reactive: Presumptiv e evidence of antibodies to HCV. Follow CDC recommendations for supplemental testing.Non-Reactive: Antibodies to HCV were not detected; does not exclude the possibility of exposure to HCVReactive Results are presumptive evidence of antibodies to HCV. Follow CDC recommendations for supplemental testing.Order confirmation testing: HCV Quant by PCR testing - HCVPCR #[id number] Non Reactive: < 0.8 Equivocal: >/= 0.8 to < 1.0 Reactive: >/= 1.0The CDC requires that a reactive/equivocal HCV antibody result be sent out for confirmation. HCV Quant by PCR testing. Start: 03-01-2025 Procedure Keyla Winn IT COMMUNICATIONS MANAGER-C Work Phone: Start: 03-01-2025 Rubella IgG measurement Keyla Meneses IT COMMUNICATIONS MANAGER-C Work Phone: Comment on above: Antibody Result: Int erpretationNon-Reactive: Non- ImmuneReactive: ImmuneThe following results were obtained with the [employer] Rubella IgG assay. Results from assays of other manufacturers cannot be used interchangeably. Start: 03-01-2025 Serologic test for syphilis Keyla Meneses IT COMMUNICATIONS MANAGER-C Work Phone: Start: 01-18-2025 Urine culture Keyla zavaletamoe IT COMMUNICATIONS MANAGER-C Work Phone: Start: 12-25-2024 Gonadotropin chorion ic qualitative Anna Fuentes MD Work Phone: Start: 06-15-2024 Lipid 1996 panel - S jai or Plasma Anna Fuentes MD Work Phone: Start: 12-07-2023 Iaadiadoo streptococ cus group a Amy PALMER Work Phone: Start: 10-26-2023 Microscopic observat ion [Identifier] in Cervix by Cyto stain Keyla Meneses FOOD PRODUCT INSPECTOR Work Phone: Start: 09-29-2023 Iaadiadoo influenza Benita alin Kiko Jessica WOOD TREATING INSPECTOR-[facility] Work Phone: Start: 09-29-2023 SARS-CoV-2 (COVID-19 ) RNA [Presence] in Unspecified specimen by NELLY with probe detection Jelena Walter WOOD TREATING INSPECTOR-[facility] Work Phone: Start: 07-21-2023 Adult depression scr eening assessment Татьяна Brooke [facility] Work Phone: Start: 09-21-2022 Microscopic observat ion [Identifier] in Cervix by Cyto stain Татьяна Brooke [facility] Work Phone: Start: 08-12-2022 Blood count complete [...] Adult depression scr eening assessment Татьяна Brooke FOOD PRODUCT INSPECTOR Work Phone: Start: 07-17-2022 Hemoglobin glycosylated a1c Lauren Luna Ana WOOD TREATING INSPECTOR-FOOD PRODUCT INSPECTOR Work Phone: Start: 07-17-2022 nonstress test Sh nusrat Zunigaam WOOD TREATING INSPECTOR-FOOD PRODUCT INSPECTOR Work Phone: Start: 07-13-2022 Complete blood count [...] RAPID TOX SCREEN WIT H RELEX TO [facility] Josse Walter MD Work Phone: Start: 01-09-2022 [...] or 75+ (1 - 1-dose 75+ series) [facility] Start: 2070 RSV Vaccines (1 - 1-dose 75+ series) RSV Vaccines (1 - 1-dose 75+ series) [facility] Start: 2045 Administration of herpes zoster vaccine Zoster Vaccines (1 of 2) [facility] Start: 2045 Zoster Vaccines (1 of 2) Zoster Vaccines (1 of 2) [facility] Start: 06-15-2029 Lipid panel Lipid Panel [facility] Start: 10-26-2026 Screening for malignant neoplasm of cervix [facility] Start: 09-21-2025 Screening for malignant neoplasm of cervix Pap Smear [facility] Start: 06-26-2025 End: 06-26-2025 Patient encounter procedure 06/26/2025 2:30 PM EDT Office Visit [facility] [address] [place] [address] Anna Fuentes MD [address] [address] [facility] Start: 05-14-2025 COVID-19 Vaccine ( season) COVID-19 Vaccine ( season) [facility] Start: 05-14-2025 Influenza vaccination [facility] Start: 03-27-2025 End: 03-27-2025 Patient encounter procedure 03/27/2025 2:00 PM EDT Office Visit [facility] [address] [place] [address] Anna Fuentes MD [address] [place] [address] [place] [address] [facility] Start: 03-10-2025 COVID-19 Vaccine ( season) COVID-19 Vaccine ( season) [facility] Comment on above: Postponed from 05/14/2023 (Treatment Not Available) Start: 03-06-2025 Depression screening using PHQ-9 (Patient Health Questionnaire 9) score Depression Screening/Follow-Up (PHQ-2/9) [facility] Start: 2025 Screening for malignant neoplasm of cervix HPV/Cotest [facility] Start: 11-01-2024 End: 11-01-2024 Patient encounter procedure 11/01/2024 2:50 PM EST Office Visit [facility] CASE BRIEFER [address] [address] Lemuel Lee MD 1200 [facility] [address] [place] [phone] [facility] Start: 10-26-2024 History and physical examination, annual for health maintenance Wellness Visit [facility] Start: 10-26-2024 Screening for malignant neoplasm of cervix CERVICAL CANCER SCREENING DISCUSSION [facility] Start: 07-21-2024 Depression screening using PHQ-9 (Patient Health Questionnaire 9) score Depression Screening (PHQ-2/9) [facility] Start: 07-21-2024 History and physical examination, annual for health maintenance Wellness Visit [facility] Start: 06-09-2024 End: 06-09-2024 Patient encounter procedure 06/09/2024 1:00 PM EDT Initial consult [facility] [address] [place] [id number] Keyla Meneses, FOOD PRODUCT INSPECTOR [address] [place] [address] Anna Fuentes MD [address] [place] [address] [facility] Start: 05-18-2024 End: 05-18-2024 Patient encounter procedure 05/18/2024 8:00 AM EDT Office Visit [facility] [address] [place] [address] Keyla Meneses CNP [address] [place] [address] [facility] Start: 05-14-2024 COVID-19 Vaccine ( season) COVID-19 Vaccine ( season) [facility] Start: 05-14-2024 COVID-19 Vaccine ( season) COVID-19 Vaccine () [facility] Start: 05-14-2024 Influenza vaccination [facility] Start: 04-27-2024 End: 04-27-2024 Patient encounter procedure 04/27/2024 8:00 AM EDT Office Visit [facility] [address] [place] [address] Keyla Meneses, MED [address] [place] [address] [facility] Start: 04-06-2024 End: 04-06-2024 Patient encounter procedure 04/06/2024 8:30 AM EDT Office Visit [facility] [address] [place] [address] Keyla Meneses FOOD PRODUCT INSPECTOR [address] [facility] [place] [address] [facility] Start: 03-12-2024 Influenza vaccination Sequential Influenza Vaccine (#1) [facility] Comment on above: Postponed from 05/14/2023 (Patient Refus ed) Start: 12-07-2023 End: 12-06-2024 [facility] Comment on above: Expected: 12/07/2023, Expires: Start: 12-01-2023 End: 12-01-2023 Patient encounter procedure 12/01/2023 8:30 AM EDT Office Visit [facility] [address] [place] [address] Татьяна Brooke, FOOD PRODUCT INSPECTOR [address] [place] [address] [facility] Start: 10-26-2023 End: 10-26-2023 Patient encounter procedure [facility] CASE BRIEFER Start: 10-26-2023 End: 10-26-2024 [facility]-SMOKING TOBACCO PACKING MACHINE HAND, LIQUID BASED [facility]-SMOKING TOBACCO PACKING MACHINE HAND, LIQUID BASED Cytology Routine Well woman exam with routine gynecological exam Cervical cancer screening Expected: 10/26/2023, Expires: 10/26/2024 [facility] Comment on above: Expected: 10/26/2023, Expires: Start: 09-21-2023 Screening for malignant neoplasm of cervix CERVICAL CANCER SCREENING DISCUSSION [facility] Start: 09-01-2023 End: 09-01-2023 Patient encounter procedure 09/01/2023 8:30 AM EST Office Visit [facility] [address] [place] [address] Татьяна Brooke, FOOD PRODUCT INSPECTOR [address] [place] [address] [facility] Start: 07-21-2023 Depression screening using PHQ-9 (Patient Health Questionnaire 9) score Depression Screening (PHQ-2/9) [facility] Start: 07-21-2023 History and physical examination, annual for health maintenance Wellness Visit [facility] Start: 05-14-2023 COVID-19 VACCINE ( season) COVID-19 VACCINE () [facility] Start: 05-14-2023 Influenza vaccination [facility] [employer] Start: 01-26-2023 GONORRHEA SCREEN GONORRHEA SCREEN [facility] Start: 01-26-2023 Screening for Chlamydia trachomatis CHLAMYDIA SCREEN [facility] Start: 10-22-2022 History and physical examination, annual for health maintenance Wellness Visit [facility] Start: 10-22-2022 Screening for malignant neoplasm of cervix CERVICAL CANCER SCREENING DISCUSSION [facility] Start: 08-05-2022 End: 08-05-2022 Follow-up encounter 08/05/2022 Follow Up Visit CASE BRIEFER Lemuel Lee MD [address] [place] [id number] [facility] Start: 07-30-2022 End: 07-30-2022 Follow-up encounter 07/30/2022 Follow Up Visit CASE BRIEFER Lemuel Lee MD [address] [place] [address] [facility]EF[facility] Start: 07-23-2022 End: 07-23-2022 Follow-up encounter 07/23/2022 Follow Up Visit CASE BRIEFER Lemuel Lee MD [address] [place] [address] [facility]RIEF[facility] Start: 07-17-2022 End: 07-17-2023 BETA STREP, VAGINAL SCREEN [facility] Comment on above: Expected: 07/17/2022, Expires: Start: 07-17-2022 End: 07-17-2022 Follow-up encounter 07/17/2022 Follow Up Visit CASE BRIEFER Lauren Perez APRN-FOOD PRODUCT INSPECTOR [id number] [place] [address] [facility] Start: 07-17-2022 End: 07-17-2022 Patient encounter procedure 07/17/2022 Appointment Ultrasound Lauren Perez APRN-FOOD PRODUCT INSPECTOR [id number] [place] [address] [facility] Start: 07-09-2022 End: 07-09-2023 OB ultrasound panel US OB GROWTH/DATING > 14WEEKS Imaging Routine Diet controlled gestational diabetes mellitus (GDM) in third trimester Expected: 07/09/2022, Expires: 07/09/2023 [facility] Comment on above: Expected: 07/09/2022, Expires: Start: 07-09-2022 End: 07-09-2022 Follow-up encounter 07/09/2022 Follow Up Visit CASE BRIEFER Lemuel Lee MD [address] [place] [address] [facility]EF[facility] Start: 07-07-2022 End: 07-07-2022 Telemedicine consultation with patient 07/07/2022 Telemedicine Telephone Nutrition Lemuel Lee MD [address] [place], [place] [id number] [phone] Татьяна Villegas RN [facility] Start: 06-30-2022 End: 06-30-2022 Telemedicine consultation with patient 06/30/2022 Telemedicine Nutrition Lemuel Lee MD [address] [place], [place] [id number] [phone] Marianna Aguilar, LEANDRO [facility] Start: 06-29-2022 End: 06-29-2022 Follow-up encounter 06/29/2022 Follow Up Visit CASE BRIEFER Lemuel Lee MD [address] [place] [address] [facility] BRIEFER Start: 06-25-2022 End: 06-25-2022 Follow-up encounter 06/25/2022 Follow Up Visit CASE BRIEFER Josse Walter MD [address] [place] [address] Lemuel Lee MD [address] [place] [address] [facility] BRIEFER Start: 06-18-2022 End: 06-18-2022 Follow-up encounter 06/18/2022 Follow Up Visit CASE BRIEFER Lemuel Lee MD [address] [place] [phone] [facility] CASE BRIEFER Start: 06-18-2022 End: 06-18-2022 Patient encounter procedure 06/18/2022 Appointment Ultrasound Lemuel Lee MD [address] [place] [address], [place] [address] [facility] OB ULTRASOUND Start: 06-17-2022 End: 06-17-2022 Nutrition therapy 06/17/2022 Nutrition Nutrition Татьяна Villegas RN [facility] Nutritional Services Start: 06-11-2022 End: 06-11-2022 Follow-up encounter 06/11/2022 Follow Up Visit CASE BRIEFER Josse Walter MD [address] [facility] [address] [place] [address], [place] [phone] [facility] CASE BRIEFER Start: 06-03-2022 End: 06-03-2022 Patient encounter procedure 06/03/2022 Appointment Ultrasound Tristan Samuel MD [address] [place] [address] Lemuel Lee MD 1200 [facility] [address] [place] [phone] [facility] OB ULTRASOUND Start: 05-28-2022 End: 05-28-2022 Follow-up encounter 05/28/2022 Follow Up Visit CASE BRIEFER Lemuel Lee MD [address] [place] [address], [place] [phone] [facility] CASE BRIEFER Start: 05-14-2022 Influenza vaccination [facility] Syste m Start: 04-30-2022 End: 04-30-2022 Follow-up encounter 04/30/2022 Follow Up Visit CASE BRIEFER Lemuel Lee MD [address] [place] [address] [facility] CASE BRIEFER Start: 04-30-2022 End: 04-30-2022 Patient encounter procedure 04/30/2022 Appointment Ultrasound Josse Walter MD [address] [place] [address], [place] [address] [facility] OB ULTRASOUND Start: 04-09-2022 End: 04-09-2022 Follow-up encounter 04/09/2022 Follow Up Visit CASE BRIEFER Josse Walter MD [address] [place] [address] [facility] CASE BRIEFER Start: 04-09-2022 End: 04-09-2022 Patient encounter procedure 04/09/2022 Appointment Ultrasound Lemuel Lee MD [address] [place] [address], [place] [phone] [facility] OB ULTRASOUND Start: 03-12-2022 End: 03-12-2022 Follow-up encounter 03/12/2022 Follow Up Visit CASE BRIEFER Lemuel Lee MD [address] [place] [address], [place] [address] [facility] CASE BRIEFER Start: 03-12-2022 End: 03-12-2022 Patient encounter procedure 03/12/2022 Appointment Ultrasound Lemuel Lee MD [address] [place] [address], [place] [phone] [facility] OB ULTRASOUND Start: 03-12-2022 End: 03-12-2023 [id number] [Presence] in Serum or Plasma [facility] Comment on above: Expected: 03/12/2022, Expires: Start: 2022 Vaccination for human papillomavirus HPV Vaccines (1 - 3-dose SCDM series) [facility] Start: 01-26-2022 End: 01-26-2022 Follow-up encounter 01/26/2022 Follow Up Visit CASE BRIEFER Josse Walter MD [address] [place] [address] [facility] CASE BRIEFER Start: 01-26-2022 End: 01-26-2022 Patient encounter procedure 01/26/2022 Appointment Ultrasound Josse Walter MD [address] [place] [address] [facility] OB ULTRASOUND Start: 01-09-2022 End: 01-09-2023 Bacteria identified in Urine by Culture [facility] Comment on above: Expected: 01/09/2022, Expires: 3 Start: 01-09-2022 End: 01-09-2022 Clinical Support Encounter 01/09/2022 Clinical Support Encounter CASE BRIEFER [facility] CASE BRIEFER Start: 01-09-2022 End: 01-09-2023 HEPATITIS B SURFACE ANTIGEN [facility] Work Phone: Comment on above: Expected: 01/09/2022, Expires: 3 Start: 01-09-2022 End: 01-09-2023 OB ultrasound panel US OB DATING ABDOMINAL < 14WEEKS Imaging Routine 8 weeks gestation of Expected: 01/09/2022, Expires: 01/09/2023 [facility] Comment on above: Expected: 01/09/2022, Expires: 3 Start: 01-09-2022 End: 01-09-2023 RPR WITH FTA REFLEX [facility] Comment on above: Expected: 01/09/2022, Expires: 3 Start: 01-09-2022 End: 01-09-2023 RUBELLA IMMUNE STATUS IGG ANTIBODY [facility] Comment on above: Expected: 01/09/2022, Expires: 3 Start: 01-09-2022 End: 01-09-2023 VARICELLA IGG AB (IMM STATUS) [facility] Comment on above: Expected: 01/09/2022, Expires: 3 Start: 05-14-2021 Influenza vaccination INFLUENZA VACCINE (#1) [facility] Start: 09-25-2020 Depression screening using PHQ-9 (Patient Health Questionnaire 9) score [facility] Start: 09-25-2020 Tetanus vaccination [facility] Comment on above: Postponed from 1995 (Patient Refus ed) Start: 07-14-2020 Screening for malignant neoplasm of cervix PAP SMEAR [facility] Start: 01-11-2020 End: 01-11-2020 Office Visit 01/11/2020 Office Visit Primary Care Татьяна Brooke, FOOD PRODUCT INSPECTOR [address] [place] [address] [phone] [facility] Start: 09-25-2019 End: 09-25-2020 Plasma dehydroepiandrosterone sulfate level DHEA-Sulfate Lab Add-On Weight gain Expected: 09/25/2019, Expires: 09/25/2020 [facility] Comment on above: Expected: 09/25/2019, Expires: 1 Start: 09-25-2019 End: 09-25-2020 Testosterone [Mass/Vol] Testosterone, Total Lab Add-On Weight gain Expected: 09/25/2019, Expires: 09/25/2020 [facility] Comment on above: Expected: 09/25/2019, Expires: 1 Start: 07-14-2018 Screening for Chlamydia trachomatis Chlamydia Screening [facility] Start: 05-14-2018 Influenza vaccination SEQUENTIAL INFLUENZA VACCINE (Season Ended) [facility] Start: 2017 DTaP/Tdap/Td Vaccines (2 - Tdap) DTaP/Tdap/Td Vaccines (2 - Tdap) [facility] Start: 02-10-2016 Screening for malignant neoplasm of cervix [facility] Start: 2014 Hepatitis B vaccination [facility] Start: 2014 Hepatitis B Vaccines (1 of 3 - 19+ 3-dose series) Hepatitis B Vaccines (1 of 3 - 19+ 3-dose series) [facility] Start: 2014 Third diphtheria, tetanus and acellular pertussis (DTaP) vaccination TDAP (ADULT) [facility] Start: 2014 Vaccination for diphtheria, pertussis, and tetanus Tetanus/Diphtheria/Pe rtussis (2 - Tdap) [facility] Start: 2013 Hepatitis C screening Hepatitis C Screening [facility] Start: 2013 Tetanus vaccination TETANUS [facility] Start: 2011 Screening for Chlamydia trachomatis CHLAMYDIA SCREEN [facility] Start: 2010 HIV screening [facility] Start: 02-10-2008 Varicella vaccination Varicella Vaccines (1 of 2 - 13+ 2-dose series) [facility] Start: 2006 Vaccination for human papillomavirus [facility] Start: 02-10-2000 COVID-19 VACCINE (#1) COVID-19 VACCINE (#1) [facility] Start: 02-10-2000 COVID-19 VACCINE (1) COVID-19 VACCINE (1) [facility] Start: 1998 History and physical examination, annual for health maintenance Wellness Visit [facility] Start: 1995 COVID-19 VACCINE (#1) COVID-19 VACCINE (#1) [facility] tem Start: 1995 Fasting lipid profile Lipid Panel [facility] Start: 1995 GONORRHEA SCREEN GONORRHEA SCREEN [facility] Start: 1995 Hepatitis B vaccination HEP B VACCINE (1 of 3 - 3-dose series) [facility] Start: 1995 Hepatitis C antibody, confirmatory test HEPATITIS C VIRUS SCREENING [facility] Start: 1995 Hepatitis C screening HEPATITIS C VIRUS SCREENING [facility] Start: 1995 Lipid panel Lipid Panel [facility] Start: 1995 Screening for malignant neoplasm of cervix PAP SMEAR [facility] Start: 1995 Tetanus vaccination [facility] Start: 1995 Yearly Adult Physical Yearly Adult Physical [facility] End: 04-06-2025 B12/Folate B12/Folate Lab Routine Chronic fatigue 1 Occurrences starting 04/06/2024 until 04/06/2025 [facility] Comment on above: 1 Occurrences starting 04/06/2024 until 04/06/2025 Bacteria identified in Urine by Culture URINE CULTURE Microbiology Today Dysuria 02/02/2022 4:48 PM EDT [facility] CBC W Auto Different ial panel - Blood [facility] CBC W Auto Different ial panel - Blood [facility] End: 04-06-2025 Complete blood count with white cell differential, manual CBC and Differential Lab Routine Chronic fatigue 1 Occurrences starting 04/06/2024 until 04/06/2025 [facility] Comment on above: 1 Occurrences starting 04/06/2024 until 04/06/2025 End: 01-21-2019 Comprehensive metabolic panel [AGGREGATE] Comprehensive Metabolic Panel Routine Weight gain 1 Occurrences starting 01/21/2018 until 01/21/2019 [facility] End: 01-29-2021 Free T3 [Mass/Vol] T3, Free Lab Routine Weight gain 1 Occurrences starting 01/30/2020 until 01/29/2021 [facility] Comment on above: 1 Occurrences starting 01/30/2020 until 01/29/2021 Free T3 [Mass/Vol] T3, Free Lab Routine Weight gain 01/30/2020 8:29 AM EDT [facility] Hemoglobin A1c/Hemoglobin.total in Blood [facility] Hepatitis C antibody measurement [facility] End: 09-25-2020 Insulin Qn Insulin, Total Lab Routine Weight gain 1 Occurrences starting 09/25/2019 until 09/25/2020 [facility] Comment on above: 1 Occurrences starting 09/25/2019 until 09/25/2020 Insulin Qn Insulin, Total L ab Routine Weight gain 09/25/2019 5:50 PM EST [facility] End: 04-06-2025 Iron measurement Iron Study with Ferritin Lab Routine Chronic fatigue 1 Occurrences starting 04/06/2024 until 04/06/2025 [facility] Work Phone: Comment on above: 1 Occurrences starting 04/06/2024 until 04/06/2025 Measurement of gluco se 2 hours after glucose challenge for glucose tolerance test [facility] PAP IG, RFX HPV ASCU PAP IG, RFX HPV ASCU Cytology Routine 10/26/2023 4:00 PM EST [facility] Plasma dehydroepiand rosterone sulfate level DHEA-Sulfate Lab Add-On Weight gain 09/25/2019 5:50 PM EST [facility] NM NON-STRESS TEST NM FETA L NON-STRESS TEST NM Charge Routine Decreased movements in second trimester, single or unspecified fetus Ordered: 05/22/2022 [facility] Comment on above: Ordered: 05/22/2022 Procedure [facility] End: 11-24-2022 PROGESTERONE PROGESTERONE Lab Routine Infertility associated with anovulation 6 Occurrences starting 11/24/2021 until 11/24/2022 [facility] Comment on above: 6 Occurrences starting 11/24/2021 until 11/24/2022 Rubella IgG measurement [facility] Serologic test for syphilis [facility] Serologic test for syphilis [facility] Testosterone [Mass/Vol] Testoste harriett Total Lab Add-On Weight gain 09/25/2019 5:50 PM EST [facility] End: 01-21-2019 TSH TSH Routine Weight gain 1 Occurrences starting 01/21/2018 until 01/21/2019 [facility] Ultrasound scan for growth [facility] End: 04-30-2022 US OB LIMITED/AMNIOTIC FLUID [facility] Work Phone: Comment on above: 1 Occurrences starting 04/30/2022 until 04/30/2022 [facility] Immunizations Immunization Date Immunization Notes Care Provider Fa [facility] 08-11-2022 varicella zoster imm une globulin Lemuel Lee MD Work Phone: [facility] 08-11-2022 measles, mumps and rubella virus vaccine Lemuel Lee MD Work Phone: [facility] 06-15-2019 influenza, injectabl e, quadrivalent, preservative free [facility] 06-15-2019 influenza virus vaccine, unspecified formulation Lemuel Lee MD Work Phone: [facility] 11-27-1999 diphtheria, tetanus toxoids and acellular pertussis vaccine, unspecified formulation [facility] 11-27-1999 measles, mumps and rubella virus vaccine [facility] Payers Date Payer Category Payer Self-pay 2021 Blue [facility] Care [facility] Member Subscriber Plan / Payer (Effective 2021-Present) Name: Drake Petty Relation to Subscriber: Self Name: Drake Petty Payer ID: [id number] (NAIC) Type: Not on file Address: [address] [place] [phone] [id number] 2019 Blue Cross Blue Shield ANTHEM BL UE/PREF/HMO/PPO Member Subscriber Plan / Payer (Effective 2019-Present) Name: Drake Petty Relation to Subscriber: Self Name: Drake Petty Payer ID: [id number] (NAIC) Type: Not on file Address: [address] [place] [phone] [id number] 2019 Unknown ANTHEM ANTHEM BLUE/PREF/HMO/PPO xxxxxxxxxxxx 2019-Present [id number]. [id number] 2019 Unknown [id number]. 1.13.172.2. 7.3.271773.315 2019 Unknown [id number] 2017 Unknown [id number] 1995 Unknown [id number] 2.16.840.1.261958.3.579.2. 900 1995 Unknown [id number] 2.16840.1.224839.3.579.2. 1068 1995 Unknown [id number] 2.16.840.1.597500.3.579.2. 1068 1995 Unknown [id number] 2.16.840.1.312022.3.579.2. 983 1995 Unknown [id number] 2.16.840.1.770831.3.579.2. 98 1995 Unknown [id number] 2.16.840.1.210754.3.579.2. 98 1995 Unknown [id number] 2.16.840.1.051169.3.579.2. 98 1995 Unknown [id number] 2.16.840.1.242376.3.579.2. 98 1995 Unknown [id number] 2.16840.1.035782.3.579.2. 98 1995 Unknown [id number] 2.16840.1.525430.3.579.2. 98 1995 Unknown [id number] 2.16840.1.394044.3.579.2 1995 Unknown [id number] 2.16840.1.744449.3.579.2. 1995 Unknown [id number] 2.16840.1.253852.3.579.2 1995 Unknown [id number] 2.16840.1.333358.3.579.2 1995 Unknown [id number] 2.16840.1.173920.3.579.2. 1243 1995 Unknown [id number] 2.16840.1.464160.3.579.2 47 1995 Unknown [id number] 2.16840.1.984345.3.579.2 47 1995 Unknown [id number] 2.16840.1.396323.3.579.2. 1995 Unknown [id number] 2.16840.1.594756.3.579.2 1995 Unknown [id number] 2.16840.1.161609.3.579.2 1995 Unknown [id number] 2.16840.1.861954.3.579.2. 903 1995 Unknown [id number] 2.840.1.315179.3.579.2. 903 1995 Unknown [id number] 2.840.1.930641.3.579.2. 903 1995 Unknown [id number] 2.840.1.291821.3.579.2. 90 1995 Unknown [id number] 2.840.1.720308.3.579.2. 903 Unknown [id number] 2.840.1.704139.3.579.2. 462 Unknown [id number] 2.840.1.852361.3.579.2. 462 Unknown [id number] 2.0.1.958563.3.579.2. 462 Unknown [id number] 2.0.1.519065.3.579.2. 462 Unknown [id number] 2.840.1.878193.3.579.2. 462 Unknown [id number] 2.0.1.323080.3.579.2. 462 Unknown [id number] 2.840.1.101486.3.579.2. 462 Unknown [id number] 2.0.1.869048.3.579.2. 462 Unknown [id number] 2.840.1.515648.3.579.2. 462 Unknown [id number] .840.1.578115.3.579.2. 462 Unknown [id number] 2.840.1.024817.3.579.2. 462 Unknown [id number] 2.840.1.266904.3.579.2. 462 Unknown [id number] 2.840.1.010997.3.579.2. 462 Unknown [id number] 2.16.840.1.840489.3.579.2. 462 Unknown [id number] 2.16.840.1.377316.3.579.2. 462 Unknown [id number] 2.16.840.1.203901.3.579.2. 462 Unknown [id number] 2.16.840.1.256283.3.579.2. 462 Unknown [id number] 2.16.840.1.790868.3.579.2. 462 Unknown [id number] 2.16.840.1.542298.3.579.2. 462 Social History Date Type Detail Facility Start: 01-21-2018 End: 01-11-2025 Tobacco smoking status NHIS Never smoker [facility] Start: 1995 Sex Assigned At Not on file [facility] Start: 09-25-2019 End: 06-26-2025 Alcohol intake Current drinker of alcohol (finding) [facility] Start: 09-25-2019 End: 11-24-2021 History SDOH Alcohol Frequency 3 [facility] Start: 09-25-2019 End: 11-24-2021 History SDOH Alcohol Std Drinks 1 [facility] Start: 01-29-2020 End: 06-17-2022 History SDOH Social Connections Get Together 4 [facility] Start: 11-14-2021 End: 11-09-2024 Exposure to SARS-CoV-2 (event) Not sure [facility] Start: 04-21-2017 End: 06-17-2022 Tobacco use and exposure Smokeless tobacco non-user [facility] Start: 11-24-2021 End: 09-29-2023 Alcohol intake Ex-drinker (finding) [facility] Start: 11-24-2021 End: 06-17-2022 History SDOH Alcohol Std Drinks 0 [facility] Start: 11-24-2021 End: 06-17-2022 History SDOH Social Connections Phone 2 [facility] Start: 11-24-2021 End: 07-21-2022 History SDOH Financial 5 [facility] Start: 11-22-2021 [facility] Start: 06-17-2022 Education 17 [facility] Tobacco smoking consumption unknown [facility] Start: 06-17-2022 End: 07-21-2023 History of Social function [facility] Start: 06-17-2022 End: 07-21-2023 Humiliation, Afraid, Rape, and Kick questionnaire [HARK] [facility] Within the last year , have you been afraid of your partner or ex-partner? No [facility] Are you now , , , , never or living with a partner? [facility] How often to you hav e a drink containing alcohol? Never [facility] How many standard drinks containing alcohol do you have on a typical day? Patient does not drink [facility] Do you feel stress - tense, restless, nervous, or anxious, or unable to sleep at night because your mind is troubled all the time - these days [OSQ] To some extent [facility] (I/We) worried wheth er (my/our) food would run out before (I/we) got money to buy more. Never true [facility] Start: 04-21-2017 Gender identity Identifies as female gender (finding) [facility] Start: 01-31-2019 Sexual orientation Heterosexual (fin ding) [facility] Do you feel stress - tense, restless, nervous, or anxious, or unable to sleep at night because your mind is troubled all the time - these days [OSQ] Not at all [facility] Start: 10-26-2023 Alcohol Comment consumes occassional ly [facility] Start: 03-06-2024 Alcohol Comment occasional [facility] Start: 1995 Sex Assigned At Female [facility] NEGATED: Highlighted rowStart: CLEM History of tobacco use Passive smoker [facility] [employer] [facility] Medical Equipment Procedure Code Equipment Code Equipment Origin al Text Equipment Identifier Dates Droplet Pen Need les 32G X 4 MM Misc [id number] Start: 11-03-[address] to check fasting BS every morning and then two hours after each meal. [id number] Start: 06-11-2022 End: 08-13-[address] to check BS every morning and then two hours after each meal. 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 Energy and motivation is fair. We again [...] AUTHENTICATED BY ANNA FUENTES, ON 06/26/2025 14:42:03 [facility] 06-25-2025 Progress note [facility] 06-25-2025 Progress note Note Date/Time June 25, 2025 3:43pm [facility] [address] [place] [address], [address] [place] [address] OFFICE VISIT Date of Service: 06/25/25 MR#: [id number] Acct: [id number] Name: DRAKE PETTY Rep #: [id number] : 1995 Provider: BRET Ruff Age/Sex: 30/F [place] [facility] Status: Signed Intake Vital Signs 04/27/25 11:42 06/13/25 15:26 06/25/25 15:16 Height 5 ft 4 in 5 ft 4 in 5 ft 4 in Weight: 185 lb 183 lb 6 oz BMI 31.7 31.4 BP 101/67 108/74 Intake Visit Reasons: 30 WK OB Chief Complaint: 30wk OB Finnish [employer] Required: No Is patient in pain?: No [...] 1 current occupational status: employed current occupation: FT-[employer] current occupational exposures/hazards: No pets and animals: [...] 5-6 times per week duration: 45-60 minutes/day carolann/baptist: None seatbelt use: always do you feel safe at home: Yes 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 Date Name GA/Weeks Outcome Route Bth Weight Infant Gen [facility] 08/11/22 [place] [facility] live [...] [facility] o[facility] 06/13/25 -?-?-?-?-?-?-?-?-?-?-?-?- 28w 1d 185 [...] and Symptoms of Preeclampsia, Feeding No , [place] Education and Family Medical Leave or Disability [...] Acute Comment: on metformin- sees jennifer in [place] . stopped at first visit. (7) Depression [...] fallen in the past year?: No 06/25/25 [id number] <Electronically signed by Nel wayne CNM> Date _ Nel Huffman Signature: Date (if applicable) CC: ~ [facility] Work Phone: 1(771) 218-290910-01-2025 Progress [facility] [address] [place] [address], [address] [place] [id number] OFFICE VISIT Date of Service: 06/13/25 MR#: [id number] Acct: [id number] Name: DRAKE PETTY Luna Rep #: [id number] : 1995 Provider: Dr. Connie Contreras DO Age/Sex: 30/F [place] [facility] Status: Signed Intake Vital Signs 03/30/25 13:58 05/22/25 15:35 06/13/25 15:26 Height 5 ft 4 in 5 ft 4 in 5 ft 4 in Weight: 185 lb BMI 31.7 BP 101/67 Intake Visit Reasons: 28wk ob/glucose [employer] Required: No Is patient in pain?: No [...] 1 current occupational status: employed current occupation: FT-[employer] current occupational exposures/hazards: No pets and animals: [...] 5-6 times per week duration: 45-60 minutes/day carolann/baptist: None seatbelt use: always do you feel safe at home: Yes 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 Date Name GA/Weeks Outcome Route Bth Weight Gen [facility] F[facility] 08/11/22 [place] 38 live [...] and Symptoms of Preeclampsia, Feeding No , [place] Education and Family Medical Leave or Disability [...] Acute Comment: on metformin- sees jennifer in [place] . stopped at first visit. (7) Depression [...] Espinoza DO> Date _ Emmanuel[facility]ras [facility] Signature: Date (if applicable) CC: ~ [facility]10-01-2025 Progress note Author Emmanuelle Espinoza [facility] Note Date/Time June 13, 2025 3: 53pm [facility] Women's [address], [address] [place] [address] OFFICE VISIT Date of Service: 06/13/25 MR#: [id number] Acct: [id number] Name: DRAKE PETTY Rep #: [id number] : 1995 Provider: Dr. Connie Cotnreras, DO Age/Sex: 30/F Location[place] [facility] Status: Signed Intake Vital Signs 03/30/25 13:58 05/22/25 15:35 06/13/25 15:26 Height 5 ft 4 in 5 ft 4 in 5 ft 4 in Weight: 185 lb BMI 31.7 BP 101/67 Intake Visit Reasons: 28wk ob/glucose [employer] Required: No Is patient in pain?: No [...] 1 current occupational status: employed current occupation: FT-[employer] current occupational exposures/hazards: No pets and animals: No history of recent travel: Yes ([place]- December) out of state: Yes out of [...] 5-6 times per week duration: 45-60 minutes/day carolann/baptist: None seatbelt use: always do you feel [...] and Symptoms of Preeclampsia, Feeding No , [place] Education and Family Medical Leave or Disability [...] Acute Comment: on metformin- sees jennifer in [place] . stopped at first visit. (7) Depression [...] _ Emmanuelle Contreras DO [facility] Signature: Date (if applicable) CC: ~ [facility] Work Phone: 1(622) 693-269408-15-2025 Progress [facility] [address] [place] [address], [address] [place] [id number] OFFICE VISIT Date of Service: 04/27/25 MR#: [id number] Acct: [id number] Name: DRAKE PETTY Rep #: [id number] : 1995 Provider: BRET Ruff Age/Sex: 30/F Location: [facility] Status: Signed Intake Vital Signs 03/01/25 13:22 03/30/25 13:58 04/27/25 11:42 Height 5 ft 4 in 5 ft 4 in 5 ft 4 in Weight: 177 lb 7 oz BMI 30.4 BP 105/69 Intake Visit Reasons: 21 wk ob Chief Complaint: 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 stopped at first visit. (6) Depression [...] Cosigner Signature: Date (if applicable) CC: ~ [facility]07-18-2025 Evaluation note* Diagnosis Onset Date Resolution Status [...] Abnormal glucose affecting deleted June 25 3:13pm [facility] Work Phone: 1(664) 407-303507-18-2025 Progress [facility] [address] [place] [address], [address] [place] [address] OFFICE VISIT Date of Service: 03/30/25 MR#: [id number] Acct: [id number] Name: DRAKE PETTY Luna Rep #: [id number] : 1995 Provider: Dr. Cruzito Thompsno MD Age/Sex: 30/F [place] [facility] [place]: Signed Intake Vital Signs 01/18/25 08:47 03/01/25 13:22 03/30/25 13:58 Height 5 ft 4 in 5 ft 4 in 5 ft 4 in Weight: 169 lb 4 oz BMI 29.0 BP 116/72 Intake Visit Reasons: 17 wk ob Finnish Rubber Required: No Is patient in pain?: No [...] 1 current occupational status: employed current occupation: FT[employer] current occupational exposures/hazards: No pets and animals: [...] 5-6 times per week duration: 45-60 minutes/day carolann/baptist: None seatbelt use: always do you feel [...] and Symptoms of Preeclampsia, Feeding No , [place] Education and Family Medical Leave or Disability [...] Acute Comment: on metformin- sees jennifer in [place] . stopped at first visit. (6) Depression with anxiety: Status: Acute Comment: sees psychiatrist-Dr. Fuentes-Does not meet criteria for diagnosis of bipolar Orders: Orders POC Urinalysis 2 Dip (Clinic) Today 03/30/25 1431 chacha GREER> Date _ Ayala Thompson MD Cosign Signature: Date (if applicable) CC: ~ [facility]07-18-2025 Progress note Author Ayala Thompson [facility] Note Date/Time March 30, 2025 2:31 pm [facility] Women's Care [address] [place] [address], [address] [place] [address] OFFICE VISIT Date of Service: 03/30/25 MR#: [id number] Acct: [id number] Name: DRAKE PETTY Rep #: [id number] : 1995 Provider: Dr. Cruzito Thompson MD Age/Sex: 30/F [place] [facility] Status: Signed Intake Vital Signs 01/18/25 08:47 03/01/25 13:22 03/30/25 13:58 Height 5 ft 4 in 5 ft 4 in 5 ft 4 in Weight: 169 lb 4 oz BMI 29.0 BP 116/72 Intake Visit Reasons: 17 wk ob Finnish Rubber Required: No Is patient in pain?: No [...] 1 current occupational status: employed current occupation: FT-[employer] current occupational exposures/hazards: No pets and animals: [...] 5-6 times per week duration: 45-60 minutes/day carolann/baptist: None seatbelt use: always do you feel [...] Symptoms of Preeclampsia, Infant Feeding No , [place] Education and Family Medical Leave or Disability [...] Acute Comment: on metformin- sees jennifer in [place] . stopped at first visit. (6) Depression with anxiety: Status: Acute Comment: sees psychiatrist-Dr. Fuentes-Does not meet criteria for diagnosis of bipolar Orders: Orders POC Urinalysis 2 Dip (Clinic) Today 03/30/25 1431 <Electronically signed by Ayala burnham MD> Date _ Ayala Childers Signature: Date (if applicable) CC: ~ [facility] Work Phone: 1(631) 399-545007-14-2025 NoteBEHAVIORAL HEALTH PSYCHIATRIC PROGRESS NOTE 03/26/2025 Drake [...] Diabetes Paternal Grandmother ADD / ADHD Brother [place] The following portions of the patient's history [...] MD AUTHENTICATED BY ANNA FUENTES, ON 03/26/2025 12:10:30[facility] 03-26-2025 History of Present illness [...] Diabetes Paternal Grandmother ADD / ADHD Brother [place] The following portions of the patient's history [...] none Anna Fuentes MD documented in this [id number] Evaluation note* Diagnosis Onset Date Resolution Status Admit Date Depression with anxiety acute [facility] 2024 1:18pm History of gestational diabetes mellitus [...] 27 11:38am Depression with anxiety acute S [facility] 2024 3:33pm History of gestational diabetes mellitus (GDM) in prior , currentl acute 2024 3:33pm Hx of forceps delivery in prior , currently acute May 22 2 025 3:33pm Low lying placenta, antepartum acute May 22 2 025 3:33pm PCOS (polycystic ovarian syndrome) acute May 22 2 025 3:33pm acute May 22, 2025 3:33pm Supervision of high-risk acute May 22 2 025 3:33pm [facility] Work Phone: 1([phone]) 853-427206-19-2025 Evaluation note* Diagnosis Onset Date Resolution Status [...] lying placenta, antepartum resolved June 13 3:09pm [facility] Work Phone: 1([phone]) 403-631904-22-2025 Evaluation note* Diagnosis Onset Date Resolution Status [...] [facility] Work Phone: 1(746) 598-815904-22-2025 Evaluation note* Diagnosis Onset Date Resolution Status [...] 8: 46am Depression with anxiety acute [facility] 2024 1:18pm History of gestational diabe rommel mellitus (GDM) in prior , currentl acute March 01, 2 025 1:18pm Hx of forceps delivery in pr ior , currently acute [facility] 2024 1:18pm PCOS (polycystic ovarian syndrome) acute March 01, 2025 1:18pm acute March 01 1:18pm Supervision of high-risk acute March 01, 2025 1:18pm [facility] Work Phone: 1([phone]) 689-820904-22-2025 Evaluation note* Diagnosis Onset Date Resolution Status [...] delivery in pr ior , currently acute [facility] 2024 1:18pm PCOS (polycystic ovarian syndrome) acute March 01, 2025 1:18pm acute March 01 1:18pm Supervision of high-risk acute March 01, 2025 1:18pm Depression with anxiety acute J [facility] 2024 1:56pm History of gestational diabe rommel mellitus (GDM) in prior , currentl acute March 30 025 1:56pm Hx of forceps delivery in pr ior , currently acute [facility] 2024 1:56pm PCOS (polycystic ovarian syndrome) acute March 30, 2025 1:56pm acute March 30 1:56pm Supervision of high-risk acute March 30, 2025 1:56pm [facility] Work Phone: 1(163) 251-431904-22-2025 Evaluation note* Diagnosis Onset Date Resolution Status [...] Supervision of high-risk acute April 27 11:38am [facility] Work Phone: 1([phone]) 635-415004-14-[address] [facility] 12/25/2024 Drake Petty, a [...] Diabetes Paternal Grandmother ADD / ADHD Brother [place] The following portions of the patient's history [...] or community referral: none (more content not included)...[facility]04-14-2025 History of Present illness Narrative* Anna Fuentes [...] Diabetes Paternal Grandmother ADD / ADHD Brother [place] The following portions of the patient's history [...] following: Continue lamotrigine 200 mg p.o. daily. Jacksno-Chintan's rash was discussed/. Patient to monitor for [...] none Anna Fuentes MD documented in this [id number] History of Present illness Narrative* Antonio Lopez PA-C - 11/09/2024 12:50 PM EST [facility] CAROL NOTE: Name: Drake Petty, 29 y.o. CSN:[id number] PCP: Anand Cooley, ALL: No Known Allergies [...] states sx started Wednesday. ) leaving for [place] soon for business trip, would like this [...] week, then inject 1.8 mg every day sfjxrhpddpktmng-vcucpfobe-ES 2-30-10 mg/5 mL syrup Take 5 mL [...] Resource Strain: Low Risk (07/21/2023) Received from [facility] Overall Financial Resource Strain (CARDIA) Difficulty of Paying Living Expenses: Not hard at all Food Insecurity: No Food Insecurity (07/21/2023) Received from [facility] Hunger Vital Sign Worried About Running Out of Food in the Last Year: Never true Ran Out of Food in the Last Year: Never true Transportation Needs: No Transportation Needs (07/21/2023) Received from [facility] PRAPARE - Transportation Lack of Transportation (Medical): No Lack of Transportation (Non-Medical): No Physical Activity: Inactive (06/17/2022) Received from [facility] Exercise Vital Sign Days of Exercise per Week: 0 days Minutes of Exercise per Session: 0 min Stress: Stress Concern Present (06/17/2022) Received from [facility] [place] [employer] Occup[employer] - Occupational Stress Questionnaire Feeling of Stress : To some extent Social Connections: Moderately Isolated (06/17/2022) Received from [facility] Social Connection and Isolation Panel [NHANES] Frequency of Communication with Friends and Family: More than three times a week Frequency of Social Gatherings with Friends and Family: Three times a week Attends Sabianism Services: Never Active Member of Clubs or Organizations: No Attends Club or Organization Meetings: Never Marital Status: Intimate Partner Violence: Not At Risk (06/17/2022) Received from [facility] Humiliation, Afraid, Rape, and Kick questionnaire Fear of Current or Ex-Partner: No Emotionally Abused: No Physically Abused: No Sexually Abused: No Housing Stability: Low Risk (06/17/2022) Received from [facility] Housing Stability Vital Sign Unable to [...] flight. Antonio Lopez PA-C Advanced Practice Provider [facility] Please note: While the patient may or may not have received printed discharge paperwork, all relevant medical findings, test results, and treatment details are accessible through the electronic medical record system. The patient is encouraged to review their chart via the patient portal for comprehensive information and follow-up instructions. [facility] Work Phone: 1(303) 717-247309-06-2024 History of Present illness Narrative* Sussy Degroot MA - 05/19/2024 12:43 PM EDT Images from the original note were not included. This [employer] fish boning machine feeder attempted to contact patient regarding referral to BHI program placed by PCP at request of [employer]. The patient did not answer. Voice mail message was left with request for return call.THIRD and final attempt. [phone] Behavioral Health Screenings: 09/01/2023 8:00 AM 03/06/2024 1:37 PM GABRIELA-7 GABRIELA-7 Score 3 10 09/25/2019 5:00 PM PHQ-9 PHQ-9 Total Score 6 documented in this [id number] Evaluation + Plan note* Assessment & Plan Note - Keyla Meneses CNP - 05/18/2024 9:13 AM EDT Associated Problem(s): Anxiety and depression Acute on chronic. Sub-optimal control Stop pristiq given worsening symptoms. Increase buspar dose Refer to psychiatry Encouraged to schedule with counseling Discussed hospital precautions [id number] Miscellaneous Notes* Assessment & Plan Note - Keyla Meneses CNP - 05/18/2024 9:13 AM EDTAssociated Problem(s): Anxiety and depression Acute on chronic. Sub-optimal control Stop pristiq given worsening symptoms. Increase buspar dose Refer to psychiatry Encouraged to schedule with counseling Discussed hospital precautions documented in this [id number] Instructions* Patient Instructions* Maria Antonia Ayala LPN - 05/18/2024 8:07 AM EDT Feedback Our goal is to provide you with exceptional patient care, and we strive to do this for every patient, every visit. Since we care about you and your experience, you may receive a patient satisfaction survey in the mail, via email or text message from [employer]. We truly welcome your feedback, positive and [...] call at or send the provider a [employer] message and we will be happy to assist. Advanced Imaging (MRI, CT, etc.) If your provider ordered advanced imaging during your visit today, you will be contacted by [facility] Central Scheduling. If you would prefer [...] concerned about them, you will receive a See[employer] message with these results. If your labs are abnormal or critical, you will receive a phone call with your results. If you have not heard anything about your lab results after 5 business days, please give our office a call at or send the provider a [employer] message and we will be happy to [...] call at or send the provider a [employer] message and allow up to 2 business days for us to complete this. If your insurance requires your medication(s) to be prior authorized, we will work with your insurance company to get these medication(s) prior authorized for you. Please allow up to 7-10 business days for this to be completed. [employer] is a wonderful way to communicate with your provider and often allows for quicker response times compared to calling our office. Please consider sending your provider a [employer] message with your non-urgent questions, medication refill requests, or even to schedule an appointment. Please do not use [employer] to send any messages requiring urgent or [...] speak to the provider on-call or call 251. Important Numbers Billing Questions or MyChart Support or Medical Financial Assistance Central Scheduling or Thank you for choosing [facility] for your healthcare needs documented in this [id number] History of Present illness Narrative* Keyla Meneses, [...] is not in the moment. Referral placed [facility]. Per chart review, patient has yet to [...] specialist office contacts you. documented in this [id number] History of Present illness Narrative* Sussy Degroot MA - 05/05/2024 4:28 PM EDT Images from the original note were not included. This [employer] fish boning machine feeder attempted to contact patient regarding referral to BHI program placed by PCP at request of [employer]. The patient did not answer. Voice mail message was left with request for return call.SECOND attempt. [phone] Behavioral Health Screenings: 09/01/2023 8:00 AM 03/06/2024 1:37 PM GABREILA-7 GABRIELA-7 Score 3 10 09/25/2019 5:00 PM PHQ-9 PHQ-9 Total Score 6 documented in this [id number] History of Present illness Narrative* Sussy Degroot MA - 04/28/2024 1:46 PM EDT Images from the original note were not included. This [employer] fish boning machine feeder attempted to contact patient regarding referral to BHI program placed by PCP at request of [employer]. The patient did not answer. Voice mail message was left with request for return call.First attempt. [phone] Behavioral Health Screenings: 09/01/2023 8:00 AM 03/06/2024 1:37 PM GABRIELA-7 GABRIELA-7 Score 3 10 09/25/2019 5:00 PM PHQ-9 PHQ-9 Total Score 6 documented in this [id number] Evaluation + Plan note* Assessment & Plan [...] flag symptoms discussed Referral placed to counseling [id number] Miscellaneous Notes* Assessment & Plan Note - [...] Referral placed to counseling documented in this [id number] History of Present illness Narrative* Keyla Meneses [...] Relevant Orders Ambulatory Ref to [place] CM Supervisor [place] For any new medication prescribed today, patient was educated about indications for the medication,how to take the medication and potential side effects of the medication. Referral was put in today, please allow 1-2 weeks until the specialist office contacts you. Return in about 2 years (around 04/27/2026) for Recheck - anxiety/depression . documented in this [id number] Instructions* Patient Instructions* Maria Antonia Ayala LPN - 04/27/2024 7:53 AM EDT Feedback Our goal is to provide you with exceptional patient care, and we strive to do this for every patient, every visit. Since we care about you and your experience, you may receive a patient satisfaction survey in the mail, via email or text message from [employer]. We truly welcome your feedback, positive and [...] call at or send the provider a [employer] message and we will be happy to assist. Advanced Imaging (MRI, CT, etc.) If your provider ordered advanced imaging during your visit today, you will be contacted by [facility] Central Scheduling. If you would prefer [...] concerned about them, you will receive a [employer] message with these results. If your labs are abnormal or critical, you will receive a phone call with your results. If you have not heard anything about your lab results after 5 business days, please give our office a call at or send the provider a [employer] message and we will be happy to [...] call at or send the provider a [employer] message and allow up to 2 business days for us to complete this. If your insurance requires your medication(s) to be prior authorized, we will work with your insurance company to get these medication(s) prior authorized for you. Please allow up to 7-10 business days for this to be completed. [employer] is a wonderful way to communicate with your provider and often allows for quicker response times compared to calling our office. Please consider sending your provider a [employer] message with your non-urgent questions, medication refill requests, or even to schedule an appointment. Please do not use [employer] to send any messages requiring urgent or [...] speak to the provider on-call or call 201. Important Numbers Billing Questions or MyChart Support or Medical Financial Assistance Central Scheduling or Thank you for choosing [facility] for your healthcare needs documented in this [id number] Evaluation + Plan note* Assessment & Plan Note - Keyla Meneses CNP - 04/06/2024 10:25 AM EDT Associated Problem(s): Anxiety Chronic. Poorly controlled. Increase prozac to 20 mg. Obtain Gene Sight Encouraged exploring counseling Continue to optimize healthy habits - sleep/diet/exercise Continue stress relieving techniques [id number] Miscellaneous Notes* Assessment & Plan Note - Keyla Meneses CNP - 04/06/2024 10:25 AM EDTAssociated Problem(s): Anxiety Chronic. Poorly controlled. Increase prozac to 20 mg. Obtain Gene Sight Encouraged exploring counseling Continue to optimize healthy habits - sleep/diet/exercise Continue stress relieving techniques documented in this [id number] History of Present illness Narrative* Keyla Meneses [...] for follow-up anxiety . documented in this [id number] Evaluation + Plan note* Assessment & Plan Note - Keyla Meneses CNP - 03/06/2024 2:16 PM EDT Associated Problem(s): Anxiety Chronic. Poorly controlled Most recent labs reviewed Start prozac. Discussed counseling options, if interested Optimize healthy habits - sleep/diet/exercise Continue cognitive behavioral stress relief techniques [id number] Miscellaneous Notes* Assessment & Plan Note - Keyla Meneses CNP - 03/06/2024 2:16 PM EDTAssociated Problem(s): Anxiety Chronic. Poorly controlled Most recent labs reviewed Start prozac. Discussed counseling options, if interested Optimize healthy habits - sleep/diet/exercise Continue cognitive behavioral stress relief techniques documented in this [id number] History of Present illness Narrative* Keyla Meneses [...] other people? Somewhat difficult documented in this [id number] History of Present illness Narrative* SPENCER Donohue [...] each nostril daily 11.1 mL 0 Lancets (Vidable DelPolyvore Plus Uyieig54O) Misc Use with glucometer to check BS every morning and then two hours after each meal. (Patient not taking: Reported on 09/21/2022) 120 Each 3 predniSONE 20 MG tablet Take 3 tabs daily x2 days then 2 tabs daily x2 days then 1 tab daily x2 days PO as directed (Patient not taking: Reported on 10/26/2023) 12 tablet 0 uhyliugjhpdhtzh-hbjyngqrwwgplmwi-hhopICAglil (Capmist DM) 60-15-400 MG tablet Take 1 [...] Resource Strain: Low Risk (07/21/2023) Received from [facility] Overall Financial Resource Strain (CARDIA) Difficulty of Paying Living Expenses: Not hard at all Food Insecurity: No Food Insecurity (07/21/2023) Received from [facility] Hunger Vital Sign Worried About Running Out of Food in the Last Year: Never true Ran Out of Food in the Last Year: Never true Transportation Needs: No Transportation Needs (07/21/2023) Received from [facility] PRAPARE - Transportation Lack of Transportation (Medical): No Lack of Transportation (Non-Medical): No Physical Activity: Inactive (06/17/2022) Received from [facility] Exercise Vital Sign Days of Exercise per Week: 0 days Minutes of Exercise per Session: 0 min Stress: Stress Concern Present (06/17/2022) Received from [facility] [employer] [place] [employer] Occup[employer] Health - Occupational Stress Questionnaire Feeling of Stress : To some extent Social Connections: Moderately Isolated (06/17/2022) Received from [facility] Social Connection and Isolation Panel [NHANES] Frequency of Communication with Friends and Family: More than three times a week Frequency of Social Gatherings with Friends and Family: Three times a week Attends Sabianism Services: Never Active Member of Clubs or Organizations: No Attends Club or Organization Meetings: Never Marital Status: Intimate Partner Violence: Not At Risk (06/17/2022) Received from [facility] Humiliation, Afraid, Rape, and Kick questionnaire Fear of Current or Ex-Partner: No Emotionally Abused: No Physically Abused: No Sexually Abused: No Housing Stability: Low Risk (06/17/2022) Received from [facility] Housing Stability Vital Sign Unable to [...] plan. SPENCER Donohue 12/17/2023 [facility] History of Present illness Narrative* SPENCER [...] Reported on 07/30/2022) 30 tablet 0 Lancets (OB10uch Delica Plus Pzydhm28T) Misc Use with glucometer to check BS [...] taking: Reported on 10/26/2023) 12 tablet 0 haieibzetnuazbb-aokoxylatrrditom-uuosKTWphuk (Capmist DM) 60-15-400 MG tablet Take 1 [...] Resource Strain: Low Risk (07/21/2023) Received from [facility] Overall Financial Resource Strain (CARDIA) Difficulty of Paying Living Expenses: Not hard at all Food Insecurity: No Food Insecurity (07/21/2023) Received from [facility] Hunger Vital Sign Worried About Running Out of Food in the Last Year: Never true Ran Out of Food in the Last Year: Never true Transportation Needs: No Transportation Needs (07/21/2023) Received from [facility] PRAPARE - Transportation Lack of Transportation (Medical): No Lack of Transportation (Non-Medical): No Physical Activity: Inactive (06/17/2022) Received from [facility] Exercise Vital Sign Days of Exercise per Week: 0 days Minutes of Exercise per Session: 0 min Stress: Stress Concern Present (06/17/2022) Received from [facility] [employer] [place] [employer] - Occupational Stress Questionnaire Feeling of Stress : To some extent Social Connections: Moderately Isolated (06/17/2022) Received from [facility] Social Connection and Isolation Panel [NHANES] Frequency of Communication with Friends and Family: More than three times a week Frequency of Social Gatherings with Friends and Family: Three times a week Attends Sabianism Services: Never Active Member of Clubs or Organizations: No Attends Club or Organization Meetings: Never Marital Status: Intimate Partner Violence: Not At Risk (06/17/2022) Received from [facility] Humiliation, Afraid, Rape, and Kick questionnaire Fear of Current or Ex-Partner: No Emotionally Abused: No Physically Abused: No Sexually Abused: No Housing Stability: Low Risk (06/17/2022) Received from [facility] Housing Stability Vital Sign Unable to [...] symptoms. SPENCER Donohue 12/07/2023 documented in this encounterFost[facility] City Hospital02-[facility] History of Present illness Narrative* Lemuel [...] Reported on 07/30/2022) 30 tablet 0 Lancets (FashiolistaTouch Delica Plus Pfgkmf58P) Misc Use with glucometer to check BS every morning and then two hours after each meal. (Patient not taking: Reported on 09/21/2022) 120 Each 3 predniSONE 20 MG tablet Take 3 tabs daily x2 days then 2 tabs daily x2 days then 1 tab daily x2 days PO as directed (Patient not taking: Reported on 10/26/2023) 12 tablet 0 orxmbcadcrnbsuk-doyvcbmrkpsjjpcl-itmkNGZvotf (Capmist DM) 60-15-400 MG tablet Take 1 [...] Resource Strain: Low Risk (07/21/2023) Received from [facility] Overall Financial Resource Strain (CARDIA) Difficulty of Paying Living Expenses: Not hard at all Food Insecurity: No Food Insecurity (07/21/2023) Received from [facility] Hunger Vital Sign Worried About Running Out of Food in the Last Year: Never true Ran Out of Food in the Last Year: Never true Transportation Needs: No Transportation Needs (07/21/2023) Received from [facility] PRAPARE - Transportation Lack of Transportation (Medical): No Lack of Transportation (Non-Medical): No Physical Activity: Inactive (06/17/2022) Received from [facility] Exercise Vital Sign Days of Exercise per Week: 0 days Minutes of Exercise per Session: 0 min Stress: Stress Concern Present (06/17/2022) Received from [facility] [place] [employer] - Occupational Stress Questionnaire Feeling of Stress : To some extent Social Connections: Moderately Isolated (06/17/2022) Received from [facility] Social Connection and Isolation Panel [NHANES] Frequency of Communication with Friends and Family: More than three times a week Frequency of Social Gatherings with Friends and Family: Three times a week Attends Sabianism Services: Never Active Member of Clubs or Organizations: No Attends Club or Organization Meetings: Never Marital Status: Intimate Partner Violence: Not At Risk (06/17/2022) Received from [facility] Humiliation, Afraid, Rape, and Kick questionnaire Fear of Current or Ex-Partner: No Emotionally Abused: No Physically Abused: No Sexually Abused: No Housing Stability: Low Risk (06/17/2022) Received from [facility] Housing Stability Vital Sign Unable to [...] . Physical Exam Exam conducted with a information technology intern present. Constitutional: General: She is not in [...] gynecological exam Normal exam, pap done - [facility] CYTOLOGY-SMOKING TOBACCO PACKING MACHINE HAND, LIQUID BASED; Future 2. Cervical cancer screening Pap done. - [facility] CYTOLOGY-SMOKING TOBACCO PACKING MACHINE HAND, LIQUID BASED; Future Return in about 1 year (around 10/26/2024) for with TK, Annual Exam. The documentation within this encounter was likely aided with Dragon, and electronic instrument mechanics supervisor device. Please excuse any errors or omissions that may not have been recognized at the time of this encounter. documented in this encounterFostoria City Hospital01-17-2024 History of Present illness Narrative* Jelena Walter APRN-MED - 09/29/2023 4:15 PM EST HPI Drkae [place] female 1995 presents to the [facility] with Chief Complaint Patient presents with Sore Throat Cough Nasal Congestion Had symptoms for x2bvdfk Since with nasal congestion, sore throat, cough, [...] (Patient not taking: Reported on 07/30/2022) Lancets (Vidable Delica Plus Bfjbow30M) Misc Use with glucometer to check BS every morning and then two hours after each meal. (Patient not taking: Reported on 09/21/2022) predniSONE 20 MG tablet Take 3 tabs daily x2 days then 2 tabs daily x2 days then 1 tab daily x2 days PO as directed pufpntzhnasomig-nbyaavyxauvpeduf-ekmeVGUfegg (Capmist DM) 60-15-400 MG tablet Take 1 [...] file Stress: No Stress Concern Present (11/24/2021) [place] [employer] - Occupational Stress Questionnaire Feeling of Stress : Not at all Social Connections: Unknown (11/24/2021) Social Connection and Isolation Panel [NHANES] Frequency of Communication with Friends and Family: Once a week Frequency of Social Gatherings with Friends and Family: Not on file Attends Sabianism Services: Not on file Active Member of [...] 108 (90 Base) MCG/ACT Aero Soln inhaler zgkubxjasngfyvp-nhvaqzjrtxvpyiom-tfojHCXyvyi (Capmist DM) 60-15-400 MG tablet Azithromycin 250 [...] plan. NATASHA Solis 09/29/2023 documented in this encounterFostoria City Hospital12-20-2023 History of Present illness Narrative* Татьяна Brooke [...] if acne resolves .akw documented in this [id number] History of Present illness Narrative* Татьяна Brooke, FOOD PRODUCT INSPECTOR - 07/21/2023 3:30 PM EST Images from [...] other people? Somewhat difficult documented in this [id number] History of Present illness Narrative* SPENCER Donohue - 01/05/2023 9:30 AM EDT URGENT CARE eNCOUnter CHIEF COMPLAINT Sore Throat (Strep + on , prescribed penicillin not better. ), Cough, and Ear Pain [facility] Drake Petty is a 27 y.o. female [...] 30 tablet 0 Lancets (OneTouch Delica Plus Wvsamy04J) [facility] Use with glucometer to check BS every [...] SPENCER Donohue 01/05/2023 documented in this [facility]02-07-2023 History of Present illness Narrative* Lemuel Lee [...] within this encounter was likely aided with [employer], and electronic instrument mechanics supervisor device. Please excuse any errors or omissions that may not have been recognized at the time of this encounter. documented in this encounterFostoria City Hospital12-01-2022 Miscellaneous Notes* Note - Janes Mcgovern RN - 08/13/2022 4:45 PM EST This note was copied from a baby's chart. Discharge instructions reviewed with parents at bedside. Parents educated on care, safe sleep, signs and symptoms to report to patrol commander. Reinforced education about safe sleep and SIDS. [...] pump use/cleaning/frequency, breastmilk storage, handling, nipple care, [facility] Hotline, [facility] support group, [...] expression. Lanolin provided with instructions. Patient states training consultant told her she should be using [...] rooming-in facilitated Parent/Child Attachment Promotion: attachment promoted eyss-ea-rxgh positioning promoted parent-child separation minimized positive reinforcement provided role responsibility promoted rooming-in promoted aohm-ij-ofjz contact encouraged strengths emphasized taught/modeled caring behavior [...] Taken 08/12/20221999 Parent/Child Attachment Promotion: attachment promoted eqtu-fi-dmlu positioning promoted parent-child separation minimized positive reinforcement provided role responsibility promoted rooming-in promoted nttx-bb-dmyz contact encouraged strengths emphasized taught/modeled caring behavior [...] rooming-in facilitated Parent/Child Attachment Promotion: attachment promoted jidg-jc-dpqx positioning promoted parent-child separation minimized positive reinforcement provided role responsibility promoted rooming-in promoted ozwe-xm-kbqj contact encouraged strengths emphasized taught/modeled caring behavior [...] Taken 08/12/20221999 Parent/Child Attachment Promotion: attachment promoted hojr-fg-ngxk positioning promoted parent-child separation minimized positive reinforcement provided role responsibility promoted rooming-in promoted jpvg-kx-cagn contact encouraged strengths emphasized taught/modeled caring behavior [...] CPG). Outcome: Ongoing * Note - Laureen Gazra RN - 08/12/2022 8:30 AM EST Mother [...] well See below for weight and Apgars [facility] [[id number]] Delivery () Delivery date/time: 08/11/2022 5:36 PM [...] current needs. * Nursing Notes - Citlaly aSvage RN - 08/11/2022 9:[address] [...] ambulates to room 213. documented in this encounterFostoria City Hospital12-01-2022 Obstetrics Note* Note - Janes Mcgovern RN - 08/13/2022 4:45 PM EST This note was copied from a baby's chart. Discharge instructions reviewed with parents at bedside. Parents educated on care, safe sleep, signs and symptoms to report to patrol commander. Reinforced education about safe sleep and SIDS. Mother verbalizes understanding. Mother of denies having any questions at this time. Infants VSWDL. Exclusively fed breast milk. Infant stooling and voiding without difficulty. Parents educated and encouraged to schedule follow up appointment tomorrow or as soon as possible. Infant carried by FOB in car seat. Car seat clicked into base in car. [facility] [employer] [facility] [id number] Obstetrics Note* Note - Janes Mcgovern RN - 08/13/2022 12:00 PM EST This note was copied from a baby's chart. Assessment completed at this time. Infant resting in crib. Chest rise noted on . Mouth and nares clear. Mother and infant VS WDL. Infant swaddled and resting in crib after assessment. Mother and father have no questions or concerns at this time. [facility] [employer] [facility] [id number] Obstetrics Note* Note - Minal Lee - [...] other feed, right side. Latch on left [facility]12-01-2022 Obstetrics Note* Note - Janes Mcgovern RN - 08/13/2022 8:00 AM EST This note was copied from a baby's chart. Head to toe assessments performed on mother and at this time. Mother denies any pain and showing no signs of distress. resting in crib swaddled. VS WDL on mother and . Mother had no further concerns or questions. Call light within reach. [facility]12-01-2022 Hospital course Narrative* Lemuel Lee MD - [...] w/Device KIT As directed. OneTouch Delica Plus Mwpjrr53S MISC Use with glucometer to check BS [...] MD [address] [facility] [id number] Schedule an appointment as soon as possible for a visit in 6 week(s) Routine Post Exam documented in this [facility]12-01-2022 History of Present illness Narrative* Lemuel Lee [...] release tomorrow 2. Breast-feeding documented in this encounterFostoria City Hospital12-01-2022 Obstetrics Note* Note - Janes Mcgovern [...] diaper change to observe the circumsicion care. [facility]12-01-2022 Note* Nursing Notes - Eneida Wright RN - 08/13/2022 3:48 AM EST Patient , teary eyed states she is exhausted and only had 2 hours of sleep yesterday. Problem solving facilitated and discussed options given to calm and give expressed milk afterfeeding. Patient instructed to call RN if needing assistance with infant calming techniques. Motherverbalizes an understanding. [facility]12-01-2022 Obstetrics Note* Note - Eneida Wright RN [...] expression. Lanolin provided with instructions. Patient states training consultant told her she should be using 21 mm flanges but patient was using spectra s1 and doesn't have that size. 21 mm size flanges provided with pumping kit. Instructed on use of hand pump and electric breast pump. Patient verbalizes an understanding. [facility]11-30-2022 Note* Plan of Care - Eneida Wright [...] rooming-in facilitated Parent/Child Attachment Promotion: attachment promoted tbkb-vw-eicu positioning promoted parent-child separation minimized positive reinforcement provided role responsibility promoted rooming-in promoted vkjn-hp-hlwa contact encouraged strengths emphasized taught/modeled caring behavior [...] Taken 08/12/20221999 Parent/Child Attachment Promotion: attachment promoted mart-kg-xkjm positioning promoted parent-child separation minimized positive reinforcement provided role responsibility promoted rooming-in promoted kvfa-uk-tjot contact encouraged strengths emphasized taught/modeled caring behavior [...] rooming-in facilitated Parent/Child Attachment Promotion: attachment promoted uhnw-ze-ppfr positioning promoted parent-child separation minimized positive reinforcement provided role responsibility promoted rooming-in promoted gsfn-zb-xkfi contact encouraged strengths emphasized taught/modeled caring behavior [...] Taken 08/12/20221999 Parent/Child Attachment Promotion: attachment promoted ahov-rm-llaj positioning promoted parent-child separation minimized positive reinforcement provided role responsibility promoted rooming-in promoted kbrl-js-ajqg contact encouraged strengths emphasized taught/modeled caring behavior [...] separation minimized encouragement offered diary/feeding log utilized [facility]11-30-2022 Obstetrics Note* Note - Laureen Garza RN - 08/12/2022 7:15 PM EST Bedside report with Tanja Wright RN. Mother resting in bed with no distress noted. swaddled andsleeping in open crib. [facility]11-30-2022 Obstetrics Note* Note - Laureen Garza RN - 08/12/2022 5:00 PM EST Assessments done at this time. Dinner ordered. Parents deny needs. Call light in reach. [facility]11-30-2022 Obstetrics Note* Note - Laureen Garza RN - 08/12/2022 4:45 PM EST Mother with no distress noted. Denies nipple pain. [facility] [employer] [facility] [id number] Obstetrics Note* Note - Minal Lee - [...] to feed on demand, skin to skin [facility] [employer] [id number] Obstetrics Note* Note - Laureen Garza RN - 08/12/2022 1:00 PM EST Mother holding infant and states she just finished for 20 minutes. Assessments done at this time. Pt eating lunch. Denies needs at this time. Call light in reach. [facility]30[facility]* Nursing Notes - HENRY Holcomb - 08/12/2022 12:31 PM EST Water provided. [facility] [employer] [id number] Obstetrics Note* Note - HENRY Holcomb - 08/12/2022 12:00 PM EST Help me grow, declined. [facility] [employer] [id number] Obstetrics Note* Note - Laureen Garza RN - 08/12/2022 10:00 AM EST Viral Lee at bedside to assist with . [facility]11-30-2022 Obstetrics Note* Note - Minal Lee - [...] on demand, skin to skin, monitor eliminations [facility]11-30-2022 Note* Plan of Care - Laureen Garza [...] of care (reference (Adult,Obstetrics,Pediatric) CPG). Outcome: Ongoing [facility]11-30-2022 Obstetrics Note* Note - Laureen Garza RN - 08/12/2022 8:30 AM EST Mother resting in bed holding infant. Assessments done at this time. IV removed. No distress noted in mother or infant. Mother states she is going to breastfeed infant and feels comfortable latching infant. Fresh water provided. Call light in reach. [facility]11-30-2022 Obstetrics Note* Note - Olivia Blanco RN [...] any needs. Call light within mother's reach. [facility]11-30-2022 Obstetrics Note* Note - Olivia Blanco RN [...] any needs. Call light within mother's reach. [facility] [employer] [id number] Obstetrics Note* Note - Olivia Blanco RN - 08/11/2022 11:40 PM EST This note was copied from a baby's chart. New blood sugar obtained on . 's blood sugar 47. Will continue to monitor. Assessment and vitals obtained on infant and mother. lying comfortably in open crib. Infant shows no signs of distress. Mother denies any needs. Call light within mother's reach. [facility] [employer] [id number] Obstetrics Note* Note - Olivia Blanco RN [...] minutes after the completion of the feed. [facility] [employer] [id number] Obstetrics Note* Note - Olivia Blanco RN - 08/11/2022 8:30 PM EST This note was copied from a baby's chart. and mother moved over to room #204. placed on far side of room away from open doorway. Infant swaddled and lying in open crib. Infant shows no signs of distress. Mother denies any needs. Call light within mother's reach. [facility]11-29-2022 Obstetrics Note* Note - Olivia Blanco RN - 08/11/2022 7:00 PM EST This note was copied from a baby's chart. Report received from Shivam Savage RN. [facility]11-29-2022 Labor and delivery summary note* L&D Delivery [...] well See below for weight and Apgars [facility] [[id number]] Delivery ([place]) Delivery date/time: 08/11/2022 5:36 PM Sex: Male [...] Total: Shoulder Dystocia Shoulder dystocia present?: No [facility]11-29-2022 Note* Nursing Notes - Citlaly Savage RN - 08/11/2022 5:[address] Lee at bedside [facility]11-29-2022 Note* Nursing Notes - Citlaly Savage RN - 08/11/2022 4:[address] Lee calls at this time requesting update on patient. Updated Dr. Lee that patient is complete. Dr. Lee instructs this RN to continue practice pushing with patient. [facility]11-29-2022 Note* Nursing Notes - Citlaly Savage RN [...] practice push to see where baby moves. [facility]11-29-2022 Note* Nursing Notes - Nannette Cardoza RN - 08/11/2022 2:[address] Lee calls back and gives order to restart pitocin at 14 in 10-15 minutes. [facility]11-29-2022 Note* Nursing Notes - Nannette Cardoza RN - 08/11/2022 2:43 PM EST Call placed to Dr. Lee in regards to prolong decel and interventions such as shutting off pitocin, position changes, vag check, oxygen and LR bolus. Will review strip and call back. [facility]11-29-2022 Note* Nursing Notes - Citlaly Savage RN - 08/11/2022 1:[address] Lee of patient's recent SVE. Dr. Lee instructs to check patient again in aboutan hour. [facility]11-29-2022 Note* Nursing Notes - Citlaly Savage RN - 08/11/2022 1:[address] Lee at bedside [facility]11-29-2022 Note* Nursing Notes - Citlaly Savage RN - 08/11/2022 12:42 PM EST Raven MANSFIELD at bedside for epidural placement [facility]11-29-2022 Note* Nursing Notes - Citlaly Savage RN - 08/11/2022 12:07 PM EST Assessment completed at this time, refer to flow sheet. Patient rating pain a 7/10 and requesting nubain at this time. Patient denies current needs. [facility] [employer] [facility] [id number] Note* Nursing Notes - Citlaly Savage RN - 08/11/2022 9:[address] Lee at bedside [facility] Specialists On CallBl[facility]11-29-2022 Note* Nursing Notes - Citlaly Savage RN - 08/11/2022 7:00 AM EST Assessment completed at this time, refer to flow sheet. Patient in bed, no distress noted. Patient denies current pain. Plan of care reviewed with patient, patient denies any questions at this time. Call light within reach. [facility] Specialists On CallBl[facility]11-29-2022 History and physical note* Lemuel Lee [...] time. External monitor: Baseline reassuring with good xwbj-pw-laex variability, accelerations noted, no decelerations, contractions every 3-4 minutes. Category 1 Assessment and Plan: 1. Intrauterine at 38 weeks 5 days 2. Favorable cervix at term 3. Gestational diabetes Plan: We will proceed with induction. Risks and benefits discussed and the patient desires to proceed. [facility] [employer] [id number] Note* Certification - Lemuel Lee MD - 08/11/2022 6:30 AM EST I certify that this patient requires inpatient services at this time. I anticipate the expected length of stay will include at least two midnights. Current treatment plan includes induction and delivery. Plans for post hospitalization care will be discharge to home. [facility] [employer]11-29-2022 History and physical note* Lemuel Lee MD - 08/11/2022 6:30 AM EST Chief Complaint: 1. Intrauterine at 38 weeks 5 days 2. Gestational diabetes 3. Favorable cervix at term History of Present Illness: Jewels Petty is a 27-year-old female 1 para 0 who is now 38 weeks and 5 days estimated gestational age. The patient's care has been per Dr. Lee, Dr. Waltre, and staff and has been complicated by [...] time. External monitor: Baseline reassuring with good vkwy-yq-isiy variability, accelerations noted, no decelerations, contractions every 3-4 minutes. Category 1 Assessment and Plan: 1. Intrauterine at 38 weeks 5 days 2. Favorable cervix at term 3. Gestational diabetes Plan: We will proceed with induction. Risks and benefits discussed and the patient desires to proceed. documented in this [facility]11-29-2022 Note* Nursing Notes - Anusha Voss - 08/11/2022 6:[address] Lee at bedside to break water, perform a cervical exam, and place FSE. [facility] [employer] [id number] Note* Nursing Notes - Margot Arana RN - 08/11/2022 5:[address] Lee is OK with 0.9% NS for continuous IV fluids. [facility] [employer] [id number] Note* Nursing Notes - Anusha Voss - 08/11/2022 5:00 AM EST Assessment completed at this time. Pt resting comfortably in bed with equal chest expansion and unlabored breathing. Call light within reach. [facility] [employer] [id number] Note* Nursing Notes - Margot Arana RN - 08/11/2022 3:55 AM EST Urine and covid collected. Pt oriented to room. [facility] [employer] [id number] Note* Nursing Notes - Margot Arana RN - 08/11/2022 3:45 AM EST Patient ambulates onto unit. Height and weight obtained. Patient ambulates to room 213. [facility] [employer] [id number] History of Present illness Narrative* Ariella Nowak [...] Induction scheduled for 08/11/22. documented in this encounterFostoria City Hospital11-23-2022 NoteLemuel Lee MD 08/05/2022 8:14 AM Procedure: Non-Stress Test Indication: Diabetes in Findings: NST: Reactive with GBTBV, + Accelerations, No decelerations. No regular contractions. Cat 1.[facility]11-[facility] Procedure note* Lemuel Lee MD - 08/05/2022 7:40 AM ESTAssociated Order(s): NM NON-STRESS TEST Pre-Procedure Diagnose(s): Diet controlled gestational diabetes mellitus (GDM) in third trimester Post-Procedure Diagnose(s): Diet controlled gestational diabetes mellitus (GDM) in third trimester Procedure: Non-Stress Test Indication: Diabetes in Findings: NST: Reactive with GBTBV, + Accelerations, No decelerations. No regular contractions. Cat1. [facility]11-23-[facility] Procedure note* Lemuel Lee MD - 08/05/2022 7:40 AM ESTAssociated Order(s): NM NON-STRESS TEST Pre-Procedure Diagnose(s): Diet controlled gestational diabetes mellitus (GDM) in third trimester Post-Procedure Diagnose(s): Diet controlled gestational diabetes mellitus (GDM) in third trimester Procedure: Non-Stress Test Indication: Diabetes in Findings: NST: Reactive with GBTBV, + Accelerations, No decelerations. No regular contractions. Cat1. documented in this [facility]11-17-2022 History of Present illness Narrative* Ariella Nowak [...] week of 08/10/22. documented in this [facility]11-17-2022 NoteLemuel Lee MD 07/30/2022 3:57 PM Procedure: Non-Stress Test Indication: Diabetes in Findings: NST: Reactive with GBTBV, + Accelerations, No decelerations. No regular contractions. Cat 1. [facility]11-17-[facility] Procedure note* Lemuel Lee MD - 07/30/2022 3:10 PM ESTAssociated Order(s): NM NON-STRESS TEST Pre-Procedure Diagnose(s): Diet controlled gestational diabetes mellitus (GDM) in third trimester Post-Procedure Diagnose(s): Diet controlled gestational diabetes mellitus (GDM) in third trimester Procedure: Non-Stress Test Indication: Diabetes in Findings: NST: Reactive with GBTBV, + Accelerations, No decelerations. No regular contractions. Cat1. [facility]11-17-[facility] Procedure note* Lemuel Lee MD - 07/30/2022 3:10 PM ESTAssociated Order(s): NM NON-STRESS TEST Pre-Procedure Diagnose(s): Diet controlled gestational diabetes mellitus (GDM) in third trimester Post-Procedure Diagnose(s): Diet controlled gestational diabetes mellitus (GDM) in third trimester Procedure: Non-Stress Test Indication: Diabetes in Findings: NST: Reactive with GBTBV, + Accelerations, No decelerations. No regular contractions. Cat1. documented in this [facility]11-10-2022 History of Present illness Narrative* Ariella Nowak [...] NST reactive today. documented in this [facility]11-10-2022 Abiola Lee MD 07/23/2022 9:33 AM Procedure: Non-Stress Test Indication: Diabetes in Findings: NST: Reactive with GBTBV, + Accelerations, No decelerations. No regular contractions. Cat 1.[facility]11[facility] Procedure note* Lemuel Lee MD - 07/23/2022 9:20 AM ESTAssociated Order(s): NM NON-STRESS TEST Pre-Procedure Diagnose(s): Gestational diabetes mellitus (GDM) affecting third Post-Procedure Diagnose(s): Gestational diabetes mellitus (GDM) affecting third Procedure: Non-Stress Test Indication: Diabetes in Findings: NST: Reactive with GBTBV, + Accelerations, No decelerations. No regular contractions. Cat1. [facility]11-10-2022 Procedure note* Lemuel Lee MD - 07/23/2022 9:20 AM ESTAssociated Order(s): NM NON-STRESS TEST Pre-Procedure Diagnose(s): Gestational diabetes mellitus (GDM) affecting third Post-Procedure Diagnose(s): Gestational diabetes mellitus (GDM) affecting third Procedure: Non-Stress Test Indication: Diabetes in Findings: NST: Reactive with GBTBV, + Accelerations, No decelerations. No regular contractions. Cat1. [facility] History of Present illness Narrative* Татьяна Brooke CNP - 07/21/2022 7:31 AM EST Images from the original note were not included. OUTPATIENT WELL WOMAN PROGRESS NOTE Subjective: Drkae Petty is a 27 y.o. female and [...] Females: Last Mammogram: N/A [facility] Dexa >65: N/A Hx of falls? [...] people? Somewhat difficult - documented in this [id number] History of Present illness Narrative* Ariella Nowak [...] this to be muscular. [facility] NoteSNATASHA Alicea 07/17/2022 12:21 PM Procedure: Non-Stress Test Indication: Diabetes in Findings: NST: Reactive with GBTBV, + Accelerations, No decelerations. No regular contractions. Cat 1. [facility]11-04-20[facility] Procedure note* NATASHA Garcia - 07/17/2022 11:20 AM EDTAssociated Order(s): NM NON-STRESS TEST Procedure(s): NM NON-STRESS TEST Pre-Procedure Diagnose(s): Supervision of high risk in third trimester; Diet controlled gestational diabetes mellitus (GDM) in third trimester Post-Procedure Diagnose(s): Supervision of high risk in third trimester; Diet controlled gestational diabetes mellitus (GDM) in third trimester Procedure: Non-Stress Test Indication: Diabetes in Findings: NST: Reactive with GBTBV, + Accelerations, No decelerations. No regular contractions. Cat1. [facility]11-04-2022 Procedure note* NATASHA Garcia - 07/17/2022 11:20 AM EDTAssociated Order(s): NM NON-STRESS TEST Procedure(s): NM NON-STRESS TEST Pre-Procedure Diagnose(s): Supervision of high risk in third trimester; Diet controlled gestational diabetes mellitus (GDM) in third trimester Post-Procedure Diagnose(s): Supervision of high risk in third trimester; Diet controlled gestational diabetes mellitus (GDM) in third trimester Procedure: Non-Stress Test Indication: Diabetes in Findings: NST: Reactive with GBTBV, + Accelerations, No decelerations. No regular contractions. Cat1. documented in this [facility]10-[facility] History of Present illness Narrative* Shavonne Ba LPN - 07/13/2022 1:00 PM EDT 34.4, OB TX., Patient is 34.4 weeks . Per My Chart message she has right sided rib and under breast pain. Patient was advised she needs seen for an appointment today. OB Tx scheduled per [place]. * Josse Walter MD - 07/13/2022 1:00 PM EDT [facility] 27 y.o. at 34w4d 1. gDM 2. [...] Department Center 07/17/2022 11:00 AM CHIOMA GAL [id number] OB ULTRASOUND, AVG 043OU [facility] 07/17/2022 11:20 AM NATASHA Garcia [id number] [facility] documented in this [facility]10-27-20[facility] History of Present illness Narrative* Clara Gorman RN - 07/09/2022 9:00 AM EDT Edema of fingers and ankles reported. NST done for GDM. * Lemuel Lee MD - 07/09/2022 9:00 AM EDT Patient doing well. NO concerns. Good movement 1. GDM: Blood sugars remain well controlled on no meds. HgbA1C and OB ultrasound with next visit. NST reactive today. documented in this [facility] NoteLemuel Lee MD 07/09/2022 9:06 AM Procedure: Non-Stress Test Indication: Diabetes in Findings: NST: Reactive with GBTBV, + Accelerations, No decelerations. No regular contractions. Cat 1. [facility]10-27-[facility] Procedure note* Lemuel Lee MD - 07/09/2022 9:00 AM EDTAssociated Order(s): NM NON-STRESS TEST Pre-Procedure Diagnose(s): Diet controlled gestational diabetes mellitus (GDM) in third trimester Post-Procedure Diagnose(s): Diet controlled gestational diabetes mellitus (GDM) in third trimester Procedure: Non-Stress Test Indication: Diabetes in Findings: NST: Reactive with GBTBV, + Accelerations, No decelerations. No regular contractions. Cat1. [facility] Procedure note* Lemuel Lee MD - 07/09/2022 9:00 AM EDTAssociated Order(s): NM NON-STRESS TEST Pre-Procedure Diagnose(s): Diet controlled gestational diabetes mellitus (GDM) in third trimester Post-Procedure Diagnose(s): Diet controlled gestational diabetes mellitus (GDM) in third trimester Procedure: Non-Stress Test Indication: Diabetes in Findings: NST: Reactive with GBTBV, + Accelerations, No decelerations. No regular contractions. Cat1. documented in this [facility]10[facility] History of Present illness Narrative* Clara Gorman RN - 06/29/2022 9:30 AM EDT NST done today for GDM. * Lemuel Lee MD - 06/29/2022 9:30 AM EDT Patient doing well. No concerns. 1. GDM: Blood sugars well controlled on no meds. Next HgbA1C and ultrasound at approx 35 weeks. NSTreactive. documented in this [facility]10-17-[facility]22 Abiola Lee MD 06/29/2022 9:59 AM Procedure: Non-Stress Test Indication: Diabetes in Findings: NST: Reactive with GBTBV, + Accelerations, No decelerations. No regular contractions. Cat 1.[facility] Procedure note* Lemuel Lee MD - 06/29/2022 9:30 AM EDTAssociated Order(s): NM NON-STRESS TEST Pre-Procedure Diagnose(s): Gestational diabetes mellitus (GDM) affecting third Post-Procedure Diagnose(s): Gestational diabetes mellitus (GDM) affecting third Procedure: Non-Stress Test Indication: Diabetes in Findings: NST: Reactive with GBTBV, + Accelerations, No decelerations. No regular contractions. Cat1. [facility]-17-[facility] Procedure note* Lemuel Lee MD - 06/29/2022 9:30 AM EDTAssociated Order(s): NM NON-STRESS TEST Pre-Procedure Diagnose(s): Gestational diabetes mellitus (GDM) affecting third Post-Procedure Diagnose(s): Gestational diabetes mellitus (GDM) affecting third Procedure: Non-Stress Test Indication: Diabetes in Findings: NST: Reactive with GBTBV, + Accelerations, No decelerations. No regular contractions. Cat1. documented in this [facility]10-13[facility]20[facility] History of Present illness Narrative* Clara Gorman RN - 06/25/2022 9:30 AM EDT NST done for GDM. * Lemuel Lee MD - 06/25/2022 9:30 AM EDT Patient doing well. No concerns 1. GDM: Blood sugars well controlled on no meds. Next HgbA1C and ultrasound at approx 35 weeks. NSTreactive. documented in this [facility]10-13-[facility]22 Abiola Lee MD 06/25/2022 9:55 AM Procedure: Non-Stress Test Indication: Diabetes in Findings: NST: Reactive with GBTBV, + Accelerations, No decelerations. No regular contractions. Cat 1. [facility]-13-[facility] Procedure note* Lemuel Lee MD - 06/25/2022 9:30 AM EDTAssociated Order(s): NM NON-STRESS TEST Pre-Procedure Diagnose(s): Diet controlled gestational diabetes mellitus (GDM) in third trimester Post-Procedure Diagnose(s): Diet controlled gestational diabetes mellitus (GDM) in third trimester Procedure: Non-Stress Test Indication: Diabetes in Findings: NST: Reactive with GBTBV, + Accelerations, No decelerations. No regular contractions. Cat1. [facility]-13-[facility] Procedure note* Lemuel Lee MD - 06/25/2022 9:30 AM EDTAssociated Order(s): NM NON-STRESS TEST Pre-Procedure Diagnose(s): Diet controlled gestational diabetes mellitus (GDM) in third trimester Post-Procedure Diagnose(s): Diet controlled gestational diabetes mellitus (GDM) in third trimester Procedure: Non-Stress Test Indication: Diabetes in Findings: NST: Reactive with GBTBV, + Accelerations, No decelerations. No regular contractions. Cat1. documented in this [facility] NoteOB ULTRASOUND PROCEDURE REFERRING PHYSICIAN: Dr. Lee TECHNOLOGIST: Radha Simon PROCEDURE PERFORMED BY: Radha Simon PROCEDURE DATE: 06/18/2022 INDICATIONS: Gestational diabetic PROCEDURE DETAILS: The lie is Vertex. EFW is 1677g, which is the 48.5 percentile. The umbilical artery S/D ratio is 2.85. The heart rate is 130 bpm. [facility]10-06-2022 History of Present illness Narrative* Ariella [...] S/D ratio. Patient has seen dietitian and certified adapted physical educator. documented [facility] NoteLemuel Lee MD 06/18/2022 10:31 AM Procedure: Non-Stress Test Indication: Diabetes in Findings: NST: Reactive with GBTBV, + Accelerations, No decelerations. No regular contractions. Cat 1. [facility]10-06-2022 Procedure note* Lemuel Lee MD - 06/18/2022 10:00 AM EDTAssociated Order(s): NM NON-STRESS TEST Pre-Procedure Diagnose(s): Diet controlled gestational diabetes mellitus (GDM) in third trimester Post-Procedure Diagnose(s): Diet controlled gestational diabetes mellitus (GDM) in third trimester Procedure: Non-Stress Test Indication: Diabetes in Findings: NST: Reactive with GBTBV, + Accelerations, No decelerations. No regular contractions. Cat1. [facility]-06-[facility] Procedure note* Lemuel Lee MD - 06/18/2022 10:00 AM EDTAssociated Order(s): NM NON-STRESS TEST Pre-Procedure Diagnose(s): Diet controlled gestational diabetes mellitus (GDM) in third trimester Post-Procedure Diagnose(s): Diet controlled gestational diabetes mellitus (GDM) in third trimester Procedure: Non-Stress Test Indication: Diabetes in Findings: NST: Reactive with GBTBV, + Accelerations, No decelerations. No regular contractions. Cat1. documented in this [facility]10-[facility] History of Present illness Narrative* Татьяна Villegas RN - 06/17/2022 3:27 PM EDT [facility] DIABETES SELF-MANAGEMENT EDUCATION AND SUPPORT PROGRAM [...] and Family: Three times a week Attends Sabianism Services: Never Active Member of Clubs or [...] Current/Pertinent Medications: Current Outpatient Medications Ordered in [facility] Medication Sig Dispense Refill cholecalciferol, vitamin D3, [...] tablet by mouth daily . No current [facility]-ordered facility-administered medications on file. SMBG Results: FBS: [...] to test and when to contact her CASE BRIEFER, kick counting. Tips given for more comfortable [...] the referring healthcare provider. documented in this [id number] History of Present illness Narrative* Marianna Lauren, [...] results today. All wnl except after eating [place] food which included higher carbohydr ate content. 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 Lives w/ . Denies N/V/D; has constipation occasionally. C/o heartburn with long periods without food during the day. Pt reports adjusting eating since GDM dx and has reduced carbohydrate intake and including more snacks to prevent heartburn. Primary Support - Food Prep - self Grocery Shopping - self Cultural or Sabianism Dietary Needs - none Pertinent Food/Drug Interactions [...] prescription for Current Outpatient Medications Ordered in [facility] Medication Sig Dispense Refill metFORMIN (GLUCOPHAGE) 500 MG tablet Take 1 (one) tablet (500 mg total) by mouth daily with breakfast . 30 tablet 11 No current [facility]-ordered facility-administered medications on file. Pt is not [...] true [0.00] Estimated Nutritional Needs: Calorie Needs: 2613-3931 (20-23 kcal/kg + 450 for 3rd trimester) [...] the referring healthcare provider. documented in this [id number] History of Present illness Narrative* Shavonne Ba LPN - 05/22/2022 2:00 PM EDT 27.1, OB TX. Has not felt the baby move since last night. * Joses Walter MD - 05/22/2022 2:00 PM EDT [facility] 27 y.o. at 27w1d Uncomplicated Ms. Petty [...] Provider Department Center 05/28/2022 9:30 AM Lemuel eLe MD [id number] [facility] 06/03/2022 10:00 AM CHIOMA LORENA [id number] OB ULTRASOUND, AVG 043OU [facility] 06/11/2022 9:30 AM Josse Walter MD [id number] [facility] documented in this [facility] Procedure note* Josse Walter MD - 05/22/2022 2:00 PM EDTAssociated Order(s): NM NON-STRESS TEST Procedure(s): NM NON-STRESS TEST Pre-Procedure Diagnose(s): Decreased movement, second trimester, fetus 1 Post-Procedure Diagnose(s): Decreased movement, second trimester, fetus 1 Non-stress Test Gestational age: 27w1d Indication: Decreased movement Baseline: 140 bpm 10x10s: N/A Variability: moderate Decelerations: absent Contractions: absent Duration >20 minutes Comments: Reassuring for gestational age 0905/22/22 Josse Walter MD [facility]09-09-20[facility] Procedure note* Josse Walter MD - 05/22/2022 2:00 PM EDTAssociated Order(s): NM NON-STRESS TEST Procedure(s): NM NON-STRESS TEST Pre-Procedure Diagnose(s): Decreased movement, second trimester, fetus 1 Post-Procedure Diagnose(s): Decreased movement, second trimester, fetus 1 Non-stress Test Gestational age: 27w1d Indication: Decreased movement Baseline: 140 bpm 10x10s: N/A Variability: moderate Decelerations: absent Contractions: absent Duration >20 minutes Comments: Reassuring for gestational age 0905/22/22 Josse Walter MD documented in this [facility]08-[facility] History of Present illness Narrative* Ariella [...] pt will think about. documented in this encounterF[facility]07-28-2022 Note20 WEEK OB ULTRASOUND PROCEDURE REFERRING [...] no previa noted. Normal fluid amount noted. [facility]07-28-2022 History of Present illness Narrative* Shavonne Ba LPN - 04/09/2022 10:30 AM EDT 21.0, Anatomy scan. * Josse Walter MD - 04/09/2022 10:30 AM EDT [facility] 27 y.o. at 21w0d Uncomplicated She reports burning with urination, but this resolves with adequate hydration. She was advised to call if symptoms persist. Today: Normal anatomy, but unable to see outflow tracts. - Return OB visit in 3 weeks with U/S for outflow tracts. documented in this [facility]06-[facility] History of Present illness Narrative* Ariella [...] tolerated venipuncture well. documented [facility] this [facility] Miscellaneous Notes* Addendum Note - Clara Gorman RN - 03/12/2022 3:00 PM EDTAddended by: CLARA GORMAN on: 03/12/2022 03:53 PM Modules accepted: Orders * Addendum Note - Clara Gorman RN - 03/12/2022 3:00 PM EDTAddended by: CLARA GORMAN on: 03/12/2022 04:14 PM Modules accepted: Orders documented in this [facility] Note* Addendum Note - Clara Gorman RN - 03/12/2022 3:00 PM EDTAddended by: CLARA GORMAN on: 03/12/2022 03:53 PM Modules accepted: Orders [facility]-30-[facility] Note* Addendum Note - Clara Gorman RN - 03/12/2022 3:00 PM EDTAddended by: CLARA GORMAN on: 03/12/2022 04:14 PM Modules accepted: Orders [facility]05-23-2022 History of Present illness Narrative* Josse Walter MD - 02/02/2022 2:50 PM EDT [facility] 26 y.o. at 11w4d 1. Rh neg [...] Time Provider Department Center 03/12/2022 2:30 PM [facility] [id number] OB ULTRASOUND, AVG 043OU [facility] 03/12/2022 3:00 PM Lemuel Lee MD [id number] [facility] documented in this [facility]04-29-[facility]22 History of Present illness Narrative* Ariella [...] visit in 2-3 weeks. documented in this encounterF[facility]04-06-2022 History of Present illness Narrative* Lemuel [...] Friends and Family: Not on file Attends Sabianism Services: Not on file Active Member of [...] was likely aided with Dragon, and electronic instrument mechanics supervisor device. Please excuse any errors or omissions that may not have been recognized at the time of this encounter. documented in this encounterF[facility]03-14-2022 History of Present illness Narrative* Lemuel [...] workup. She is on metformin per her prick stitcher. Patient does have an element of PCO [...] within this encounter was likely aided with [employer], and electronic instrument mechanics supervisor device. Please excuse any errors or omissions that may not have been recognized at the time of this encounter. documented in this encounterFostoria [facility] HospitalEvaluation note* Diagnosis Infertility associated with anovulation- Primary Female infertility associated with anovulation documented [facility]* Diagnosis Pelvic pain in , antepartum, first trimester- Primary documented in [facility] [place] [facility]* Diagnosis 8 weeks gestation of - Primary state, incidental [facility] [place] [facility]* Diagnosis 8 weeks gestation of state, incidental documented in this [facility] [place] [facility]* Diagnosis Dysuria- Primary documented in this encounter [facility] [place] [facility]* Diagnosis Ultrasound scan done for inability to hear heart tones Abnormality in heart rate/rhythm, antepartum condition or complication documented in this encounter [facility] [place] [facility]* Diagnosis Encounter for supervision of normal first in second trimester- Primary Supervision of normal first 17 weeks gestation of state, incidental documented in this encounter [facility] [place] [facility]* Diagnosis care in second trimester- Primary documented in this encounter [facility] [place] [facility]* Diagnosis 20 weeks gestation of state, incidental documented in this [facility] [place] [facility]* Diagnosis Encounter for supervision of normal first in second trimester- Primary Supervision of normal first 24 weeks gestation of state, incidental documented in this encounter [facility] [place] [facility]* Diagnosis Encounter for follow-up ultrasound of anatomy documented in this encounter [facility] [place] [facility]* Diagnosis Decreased movements in second trimester, single or unspecified fetus- Primary documented in this encounter [facility] [place] [facility]* Diagnosis Diet controlled gestational diabetes mellitus (GDM) in third trimester documented in this encounter [facility] [place] [facility]* Diagnosis Diet controlled gestational diabetes mellitus (GDM), antepartum [facility] [place] [facility]* Diagnosis Diet controlled gestational diabetes mellitus (GDM), antepartum- Primary documented [facility] this [facility] [place] [facility]* Diagnosis Diet controlled gestational diabetes mellitus (GDM) in third trimester- Primary Encounter for supervision of high risk in third trimester, antepartum 31 weeks gestation of state, incidental Ultrasound scan done for inability to hear heart tones Abnormality in heart rate/rhythm, antepartum condition or complication documented in this encounter [facility] [place] [facility]* Diagnosis Diet controlled gestational diabetes mellitus [...] of state, incidental [facility] Diagnosis Diet controlled gestational diabetes mellitus (GDM) in third trimester- Primary Encounter for supervision of high risk in third trimester, antepartum 34 weeks gestation of state, incidental [facility]* Diagnosis RUQ pain- Primary Abdominal pain, right upper quadrant Abnormal maternal glucose tolerance, antepartum Diet controlled gestational diabetes mellitus (GDM) in third trimester documented [facility] [place] [facility]* Diagnosis Supervision of high risk in third trimester- Primary Unspecified high-risk Diet controlled gestational diabetes mellitus (GDM) in third trimester 35 weeks gestation of state, incidental [facility]* Diagnosis Preventative health care- Primary Routine general medical examination at a health care facility [facility] Diagnosis Diet controlled gestational diabetes mellitus (GDM) in third trimester- Primary Supervision of high risk in third trimester Unspecified high-risk 36 weeks gestation of state, incidental [facility]* Diagnosis Diet controlled gestational diabetes mellitus (GDM) in third trimester- Primary Supervision of high risk in third trimester Unspecified high-risk 37 weeks gestation of state, incidental [facility]* Diagnosis Diet controlled gestational diabetes mellitus (GDM) in third trimester- Primary Supervision of high risk in third trimester Unspecified high-risk 37 weeks gestation of state, incidental [facility]* Diagnosis (spontaneous vaginal delivery)- Primary Normal delivery Diet controlled gestational diabetes mellitus (GDM) in third trimester Encounter for induction of labor Encounter for induction of labor documented [facility]* Diagnosis Disruption of episiotomy wound in the puerperium- Primary Disruption of perineal wound, unspecified as to episode of care in documented [facility]* Diagnosis Viral URI with cough- Primary Acute upper respiratory infections of unspecified site Acute cough [facility]* Diagnosis Preventative health care- Primary Routine general medical examination at a health care facility Anxiety Anxiety state, unspecified [facility]* Diagnosis Anxiety- Primary Anxiety state, unspecified [facility]* Diagnosis Acute bronchitis, unspecified organism- Primary Acute cough [facility] [place] [facility]* Diagnosis Well woman exam with routine gynecological exam- Primary Routine gynecological examination Cervical cancer screening Screening for malignant neoplasm of the cervix documented in this encounter [facility] [place] [facility]* Diagnosis Sore throat- Primary Acute pharyngitis documented in this encounter [facility]* Diagnosis Acute non-recurrent frontal sinusitis- Primary documented in this encounter [facility] [place] [facility]* Diagnosis Anxiety- Primary Anxiety state, unspecified documented in this encounter [facility] note* Diagnosis Anxiety- Primary Anxiety state, unspecified Chronic fatigue Other malaise and fatigue [facility] [facility] note* Diagnosis Anxiety and depression- Primary documented in this encounter [facility] note* Diagnosis Anxiety and depression- Primary documented in this encounter [facility] note* Diagnosis Acute rhinosinusitis- Primary documented in this encounter [facility] Work Phone: Evaluation note* Diagnosis Anxiety and depression- Primary Anxiety and depression- Primary Unspecified mood (affective) disorder (HCC)- Primary as incidental finding documented in this encounter [facility] note* Diagnosis Anxiety and depression- Primary Anxiety and depression- Primary Unspecified mood (affective) disorder (HCC)- Primary documented in this encounter [facility] note* Diagnosis Anxiety and depression- Primary Anxiety and depression- Primary Anxiety and depression- Primary [facility]* Attachments The following attachments cannot be sent through Care Everywhere. * : Vaginal Delivery (Bahamian) [facility]* Attachments The following attachments cannot be sent through Care Everywhere. * Infertility (Bahamian) [facility] in [facility]* Attachments The following attachments cannot be sent through Care Everywhere. * URI (Upper Respiratory Infection): Viral (Bahamian) documented in [facility]* Attachments The following attachments cannot be sent through Care Everywhere. * Acute Bronchitis or Chest Cold Care Instructions ([facility]) (Bahamian) documented in [facility] HospitalInst[facility]* Attachments The following attachments cannot be sent through Care Everywhere. * Female Exams and Screenings ([facility]) ([place]ahamian) [facility] Attachments The following attachments cannot be sent through Care Everywhere. * Sinusitis: Acute (Bahamian) [facility] this [facility] Author Nel Ruff [facility] Note Date/Time April 27, 2025 11 :53am [facility] [address] [place] [address], [address] [place] [address] OFFICE VISIT Date of Service: 04/27/25 MR#: [id number] Acct: [id number] Name: DRAKE PETTY Rep #: [id number] : 1995 Provider: BRET Ruff Age/Sex: 30/F [place] [facility] [place]: Signed Intake Vital Signs 03/01/25 13:22 03/30/25 13:58 04/27/25 11:42 Height 5 ft 4 in 5 ft 4 in 5 ft 4 in Weight: 177 lb 7 oz BMI 30.4 BP 105/69 Intake Visit Reasons: 21 wk ob Chief Complaint: 21wk OB Finnish [employer] Required: No Is patient in pain?: No [...] 1 current occupational status: employed current occupation: FT-[employer] current occupational exposures/hazards: No pets and animals: [...] 5-6 times per week duration: 45-60 minutes/day carolann/baptist: None seatbelt use: always do you feel [...] Symptoms of Preeclampsia, Infant Feeding No , [place] Education and Family Medical Leave or Disability [...] Acute Comment: on metformin- seerosana rodriguez in [place] . stopped at first visit. (6) Depression [...] Cosigner Signature: Date (if applicable) CC: ~ [facility] Work Phone: Reason for referral (narrative)No reason for referral information availableWMarietta Memorial Hospital Work Phone: Assessments Diagnosis Weight gain [...] FoundDocuments on File Type Date Recorded Patient Fitter Tacker Expl anation Advance Directives and Living Will Documents on File Type Date Recorded Patient Fitter Tacker Expl anation Advance Directives and Livin g Will 01/29/2020 3:41 PM Documents on File Type Date Recorded Patient Fitter Tacker Expl anation Advance Directives/Living Will 08/11/2022 3:51 AM ADA History of Present Illness * Татьяна Brooke, FOOD PRODUCT INSPECTOR - 09/25/2019 5:36 PM EST Subjective Patient [...] will consider sending her to endocrinology in [place]. Electronically signed by Татьяна Brooke [facility] * Helen Shoemaker RN - 10/12/2019 [...] laser therapy. Acne can be treated with rrjz-fum-gqawvoy medicines. Look for ones that have benzoyl [...] Log into your personal health record on https://[employer]Zenamins and enter K559 in the Education box to learn more about Polycystic Ovary Syndrome: Care Instructions. Current as of: November 01, 2018 Content Version: 12.3 0231-5830 [employer]. Care instructions adapted under license by your healthcare professional. If you have questions about a medical condition or this instruction, always ask your healthcare professional. [employer] disclaims any warranty or liability for your [...] laser therapy. Acne can be treated with ogkq-xxu-acvbpdq medicines. Look for ones that have benzoyl [...] Log into your personal health record on [email or web address] and enter K559 in the Education box to learn more about Polycystic Ovary Syndrome: Care Instructions. Current as of: November 01, 2018 Content Version: 12.3 0199-1995 [employer]. Care instructions adapted under license by your healthcare professional. If you have questions about a medical condition or this instruction, always ask your healthcare professional. [employer] disclaims any warranty or liability for your use of this information. documented in this encounter Reason for Referral Status Reason Specialty Diagnoses / Procedures Referred By Contact Referred To Contact Pending Review Specialty Services Required/Patie nt's Best Interest Endocrinology/M etabolism Diagnoses Weight gain PCOS (polycystic ovarian syndrome) Татьяна Brooke, MED [address] [place] [address] Emmanuelle Lopez MD [address] [facility] [address] [place] [address] Status Reason Specialty Diagnoses / Procedures Referred By Contact Referred To Contact Authorized Specialty Services Required/Patien t's Best Interest Endocrinology/M etabolism Diagnoses Weight gain PCOS (polycystic ovarian syndrome) Татьяна Brooke, MED [address] [place] [address] Specialty Diagnoses / Procedures Referred By Contac t Referred To Contact Diagnoses 8 weeks gestation of Procedures US OB DATING ABDOMINAL < 14WEEKS Josse Walter MD [address] [place] [phone] Referral ID Status Reason Start Date Expiration Date V isits Requested Visits Authorized [id number] Auth Not Needed 01/09/2022 02/03/2023 1 1 Referral ID Status Reason Start Date Expiration Date Visits Re quested Visits Authorized [id number] Closed 01/09/2022 02/03/2023 1 1 Specialty Diagnoses / Procedures Referred By Contac t Referred To Contact Diagnoses Ultrasound scan done for inability to hear heart tones Procedures US OB DATING ABDOMINAL < 14WEEKS Josse Walter MD [address] [place] [phone] Referral ID Status Reason Start Date Expiration Date V isits Requested Visits Authorized [id number] New Request 02/02/2022 02/27/2023 1 1 Specialty Diagnoses / Procedures Referred By Contac t Referred To Contact Diagnoses 20 weeks gestation of Procedures US OB ANATOMY Jessica, Josse C, MD [address] [place] [phone] Referral ID Status Reason Start Date Expiration Date Visits Re quested Visits Authorized [id number] Closed 03/19/2022 04/13/2023 1 1 Specialty Diagnoses / Procedures Referred By Contac t Referred To Contact Diagnoses Encounter for follow-up ultrasound of anatomy Procedures US OB LIMITED/AMNIOTIC FLUID Josse Walter MD [address] [place] [phone] Referral ID Status Reason Start Date Expiration Date Visits Re quested Visits Authorized [id number] Closed 04/13/2022 05/08/2023 1 1 Specialty Diagnoses / Procedures Referred By Contac t Referred To Contact Diagnoses Diet controlled gestational diabetes mellitus (GDM) in third trimester Procedures ECG Lemuel Lee MD [address] [facility] [address] [place] [phone] Referral ID Status Reason Start Date Expiration Date V isits Requested Visits Authorized [id number] New Request 06/11/2022 07/06/2023 1 1 Specialty Diagnoses / Procedures Referred By Contac t Referred To Contact Diagnoses Diet controlled gestational diabetes mellitus (GDM) in third trimester Procedures US OB GROWTH/DATING > 14WEEKS Lemuel Lee MD [address] [facility] [address] [place] [phone] Referral ID Status Reason Start Date Expiration Date Visits Re quested Visits Authorized [id number] Closed 06/11/2022 07/06/2023 1 1 Referral ID Status Reason Start Date Expiration Date V isits Requested Visits Authorized [id number] Auth Not Needed 07/09/2022 08/03/2023 1 1 Specialty Diagnoses / Procedures Referred By Contac t Referred To Contact Behavorist (Outpatient Social Work) Diagnoses Anxiety and depression Keyla Meneses, FOOD PRODUCT INSPECTOR [address] [place] [address] Referral ID Status Reason Start Date Expiration Date V isits Requested Visits Authorized [id number] Authorized 04/27/2024 04/27/2025 1 1 Specialty Diagnoses / Procedures Referred By Contac t Referred To Contact Psychiatry Diagnoses Anxiety and depression Keyla Meneses, FOOD PRODUCT INSPECTOR [address] [place] [address] [facility] [address] [place] [address] Referral ID Status Reason Start Date Expiration Date V isits Requested Visits Authorized [id number] Authorized 05/18/2024 05/18/2025 1 1 Chief Complaint [...] 22, 2025 3:33pm PCOS (polycystic ovarian syndrome) [facility] 3:33pm May 22, 2025 3:33pm Supervision of high-risk [facility] 2024 3:33pm Chief Complaint Admit Date 13 [...] 22, 2025 3:33pm PCOS (polycystic ovarian syndrome) [facility] 2024 3:33pm May 22, 2025 3:33pm Supervision of high-risk [facility] 2024 3:33pm Low lying placenta, antepartum May [...] 22, 2025 3:33pm PCOS (polycystic ovarian syndrome) [facility] 2024 3:33pm May 22, 2025 3:33pm Supervision of high-risk [facility] 2024 3:33pm Low lying placenta, [...] section and content) DATE CREATED AUTHOR 03/08/2018 [facility] DATE CREATED AUTHOR AUTHOR'S ORGANIZ ATION 04/23/2019 [facility] DATE CREATED AUTHOR AUTHOR'S ORGANIZ ATION 01/08/2023 [facility] DATE CREATED AUTHOR AUTHOR'S ORGANIZ ATION 12/10/2023 [facility] DATE CREATED AUTHOR AUTHOR'S ORGANIZ ATION 12/13/2023 [facility] DATE CREATED AUTHOR AUTHOR'S ORGANIZ ATION 06/19/2024 [facility] DATE CREATED AUTHOR AUTHOR'S ORGANIZ ATION 11/11/2024 [facility] DATE CREATED AUTHOR AUTHOR'S ORGANIZ ATION 06/18/2025 [facility] DATE CREATED AUTHOR AUTHOR'S ORGANIZ ATION 07/17/2025 [facility] DATE CREATED AUTHOR AUTHOR'S ORGANIZ ATION 07/25/2025 [facility] Reason for Visit (unrecogniz ed section and [...] DATING ABDOMINAL < 14WEEKS Josse Walter MD [address] [phone] Referral ID Status Reason Start Date Expiration Date Visits Re quested Visits Authorized [id number] Closed 01/09/2022 02/03/2023 1 1 Reason Comments Urinary Pain 11.4,Patient with dy suria, frequency, urgency Specialty Diagnoses / Procedures Referred By Contac t Referred To Contact Diagnoses Ultrasound scan done for inability to hear heart tones Procedures US OB DATING ABDOMINAL < 14WEEKS Josse Walter MD [address] [place] [phone] Referral ID Status Reason Start Date Expiration Date V isits Requested Visits Authorized [id number] New Request 02/02/2022 02/27/2023 1 1 Reason Comments 17.0 Reason Comments 21.0, Anatomy scan. Specialty Diagnoses / Procedures Referred By Contac t Referred To Contact Diagnoses 20 weeks gestation of Procedures US OB ANATOMY Josse Walter MD [address] [phone] Referral ID Status Reason Start Date Expiration Date Visits Re quested Visits Authorized [id number] Closed 03/19/2022 04/13/2023 1 1 Reason Comments Routine Visit Specialty Diagnoses / Procedures Referred By Contac t Referred To Contact Diagnoses Encounter for follow-up ultrasound of anatomy Procedures US OB LIMITED/AMNIOTIC FLUID Josse Walter MD [address] [phone] Referral ID Status Reason Start Date Expiration Date Visits Re quested Visits Authorized [id number] Closed 04/13/2022 05/08/2023 1 1 Reason Comments 27.1, OB TX. Has not felt the baby move since last night. Specialty Diagnoses / Procedures Referred By Contac t Referred To Contact Diagnoses Diet controlled gestational diabetes mellitus (GDM) in third trimester Procedures ECG Lemuel Lee MD [address] [phone] Referral ID Status Reason Start Date Expiration Date V isits Requested Visits Authorized [id number] New Request 06/11/2022 07/06/2023 1 1 Specialty Diagnoses / Procedures Referred By Contac t Referred To Contact Nutrition Diagnoses Diet controlled gestational diabetes mellitus (GDM), antepartum Lemuel Lee MD [address] [address] Nutrition Services [address] [place] [phone] Referral ID Status Reason Start Date Expiration Date V isits Requested Visits Authorized [id number] Authorized 06/12/2022 06/12/2023 5 5 Reason Comments Diabetes Mellitus Specialty Diagnoses / Procedures Referred By Contac t Referred To Contact Nutrition Diagnoses Diet controlled gestational diabetes mellitus (GDM), antepartum Lemuel Lee MD [address] [place] [phone] Nutrition Services [facility] [place] [address] Reason Comments 31.0 with growth US and NST for GDM Specialty Diagnoses / Procedures Referred By Contac t Referred To Contact Diagnoses Diet controlled gestational diabetes mellitus (GDM) in third trimester Procedures US OB GROWTH/DATING > 14WEEKS Lemuel Lee MD [address] [place] [phone] Referral ID Status Reason Start Date Expiration Date Visits Re quested Visits Authorized [id number] Closed 06/11/2022 07/06/2023 1 1 Reason Comments [...] Contact Lemuel Lee MD [address] [place] [phone] [facility] Referral ID Status Reason Start Date Expiration Date Visits Re quested Visits Authorized [id number] 1 1 Reason Comments Follow-up Episiotomy wound [...] done Reason Onset Date Comments Care coordination [facility] 04/28/2024 Reason Onset Date Comments Care coordination [facility] 05/05/2024 Reason Comments Anxiety Patient states that [...] done Reason Onset Date Comments Care coordination [facility] 05/19/2024 Reason Onset Date Comments Medication Refill 07/27/2024 Reason Onset Date Comments Medication Refill 10/02/2024 Reason Comments Sinus Problem Pt states sinus pres sure, congestion, and change in color of mucus. Pt states sx started Wednesday. Care Teams (unrecognized sec tion and content) Batt Machine Operator Relationship Specialty Start Date End Date Anand Cooley DO PCP - General Family Medicine 04/21/17 Batt Machine Operator Relationship Specialty Start Date End Date Anand Cooley DO PCP - General Family Medicine 04/21/17 Batt Machine Operator Relationship Specialty Start Date End Date Anand Cooley DO PCP - General Family Medicine 04/21/17 Batt Machine Operator Relationship Specialty Start Date End Date Anand Cooley DO PCP - General Family Medicine 04/21/17 Batt Machine Operator Relationship Specialty Start Date End Date Anand Cooley DO PCP - General Family Medicine 04/21/17 Batt Machine Operator Relationship Specialty Start Date End Date Anand Cooley DO PCP - General Family Medicine 04/21/17 Batt Machine Operator Relationship Specialty Start Date End Date Anand Cooley DO PCP - General Family Medicine 04/21/17 Batt Machine Operator Relationship Specialty Start Date End Date Anand Cooley DO PCP - General Family Medicine 04/21/17 Batt Machine Operator Relationship Specialty Start Date End Date Anand Cooley DO PCP - General Family Medicine 04/21/17 Batt Machine Operator Relationship Specialty Start Date End Date Anand Cooley DO PCP - General Family Medicine 04/21/17 Batt Machine Operator Relationship Specialty Start Date End Date Anand Cooley, DO PCP - General Family Medicine 04/21/17 Batt Machine Operator Relationship Specialty Start Date End Date Татьяна Brooke, FOOD PRODUCT INSPECTOR PCP - General Family Medicine 10/11/19 Eunice Del Angel, FOOD PRODUCT INSPECTOR [address] [facility] [place] [address] Nurse Practitioner Obstetrics/Gynecology 02/09/19 Batt Machine Operator Relationship Specialty Start Date End Date Татьяна Brooke, FOOD PRODUCT INSPECTOR [address] [place] [address] PCP - General Family Medicine 10/11/19 Eunice Del Angel, FOOD PRODUCT INSPECTOR [address] [place] [address] Nurse Practitioner Obstetrics/Gynecology 02/09/19 Batt Machine Operator Relationship Specialty Start Date End Date Anand Cooley DO PCP - General Family Medicine 04/21/17 Batt Machine Operator Relationship Specialty Start Date End Date Anand Cooley DO PCP - General Family Medicine 04/21/17 Batt Machine Operator Relationship Specialty Start Date End Date Anand Cooley DO PCP - General Family Medicine 04/21/17 Batt Machine Operator Relationship Specialty Start Date End Date Anand Cooley DO PCP - General Family Medicine 04/21/17 Batt Machine Operator Relationship Specialty Start Date End Date Anand Cooley DO PCP - General Family Medicine 04/21/17 Batt Machine Operator Relationship Specialty Start Date End Date Anand Cooley DO PCP - General Family Medicine 04/21/17 Batt Machine Operator Relationship Specialty Start Date End Date Татьяна Brooke, FOOD PRODUCT INSPECTOR [address] [place] [address] PCP - General Family Medicine 10/11/19 Eunice Del Angel, FOOD PRODUCT INSPECTOR [address] [place] [address] Nurse Practitioner Obstetrics/Gynecology 02/09/19 Batt Machine Operator Relationship Specialty Start Date End Date Anand Cooley DO PCP - General Family Medicine 04/21/17 Batt Machine Operator Relationship Specialty Start Date End Date Anand Cooley DO PCP - General Family Medicine 04/21/17 Batt Machine Operator Relationship Specialty Start Date End Date Anand Cooley DO PCP - General Family Medicine 04/21/17 Batt Machine Operator Relationship Specialty Start Date End Date Anand Cooley DO PCP - General Family Medicine 04/21/17 Batt Machine Operator Relationship Specialty Start Date End Date Татьяна Brooke, FOOD PRODUCT INSPECTOR [address] [place] [address] PCP - General Family Medicine 10/11/19 Eunice Del Angel, MDE [address] [place] [address] Nurse Practitioner Obstetrics/Gynecology 02/09/19 Batt Machine Operator Relationship Specialty Start Date End Date Татьяна Brooke, FOOD PRODUCT INSPECTOR [address] [place] [address] PCP - General Family Medicine 10/11/19 Eunice Del Angel, MED [address] [place] [address] Nurse Practitioner Obstetrics/Gynecology 02/09/19 Batt Machine Operator Relationship Specialty Start Date End Date Anand Cooley DO PCP - General Family Medicine 04/21/17 Batt Machine Operator Relationship Specialty Start Date End Date Anand Cooley DO PCP - General Family Medicine 04/21/17 Batt Machine Operator Relationship Specialty Start Date End Date Татьяна Brooke CNP [address] [place] [address] PCP - General Certified Nurse Practitioner 12/07/23 Batt Machine Operator Relationship Specialty Start Date End Date Татьяна Brooke CNP [address] [place] [address] PCP - General Certified Nurse Practitioner 12/07/23 Batt Machine Operator Relationship Specialty Start Date End Date Татьяна Brooke, MED [address] [place] [phone] PCP - GRICEL Attributed Provider - [facility] [employer] 10/14/23 09/12/50 Keyla Meneses, MED [address] [place] [phone] PCP - General Family Medicine 03/06/24 Eunice Del Angel CNP [address] [place], [place] [phone] Nurse Practitioner Obstetrics/Gynecology 02/09/19 Batt Machine Operator Relationship Specialty Start Date End Date Татьяна Brooke, FOOD PRODUCT INSPECTOR [address] [place] [phone] PCP - GRICEL Attributed Provider - [facility] [employer] 10/14/23 09/12/50 Keyla Meneses, MED [address] [place] [address] PCP - General Family Medicine 03/06/24 Eunice Del Angel, MED [address] [place] [address] Nurse Practitioner Obstetrics/Gynecology 02/09/19 Batt Machine Operator Relationship Specialty Start Date End Date Татьяна Brooke, MED [address] [place] [address] PCP - GRICEL Attributed Provider - [facility] [employer] 10/14/23 09/12/50 Keyla Meneses, FOOD PRODUCT INSPECTOR [address] [place] [address] PCP - General Family Medicine 03/06/24 Eunice Del Angel, MED [facility] [address] [place] [address] Nurse Practitioner Obstetrics/Gynecology 02/09/19 Batt Machine Operator Relationship Specialty Start Date End Date Татьяна Brooke, FOOD PRODUCT INSPECTOR [address] [place] [phone] PCP - GRICEL Attributed Provider - [facility] [employer] 10/14/23 09/12/50 Keyla Meneses, FOOD PRODUCT INSPECTOR [facility] [place] [address] PCP - General Family Medicine 03/06/24 Eunice Del Angel, FOOD PRODUCT INSPECTOR [facility] [address] [place] [address] Nurse Practitioner Obstetrics/Gynecology 02/09/19 Batt Machine Operator Relationship Specialty Start Date End Date Татьяна Brooke, FOOD PRODUCT INSPECTOR [address] [place] [phone] PCP - GRICEL Attributed Provider - [facility] [employer] 10/14/23 09/12/50 Keyla Meneses, FOOD PRODUCT INSPECTOR [address] [place] [address] PCP - General Family Medicine 03/06/24 Eunice Del Angel, MED [address] [place] [address] Nurse Practitioner Obstetrics/Gynecology 02/09/19 Batt Machine Operator Relationship Specialty Start Date End Date Татьяна Brooke, FOOD PRODUCT INSPECTOR [address] [place] [address] PCP - GRICEL Attributed Provider - [facility] [employer] 10/14/23 09/12/50 Keyla Meneses, MED [facility] [place] [address] PCP - General Family Medicine 03/06/24 Eunice Del Angel, MED [address] [place] [address] Nurse Practitioner Obstetrics/Gynecology 02/09/19 Batt Machine Operator Relationship Specialty Start Date End Date Татьяна Brooke, MED [address] [place] [address] PCP - GRICEL Attributed Provider - [facility] [employer] 10/14/23 09/12/50 Keyla Meneses, MED [address] [place] [address] PCP - General Family Medicine 03/06/24 Eunice Del Angel, EMD [address] [place] [address] Nurse Practitioner Obstetrics/Gynecology 02/09/19 Batt Machine Operator Relationship Specialty Start Date End Date Anand Cooley DO [address] [place] [address] PCP - General 01/31/14 Batt Machine Operator Relationship Specialty Start Date End Date Keyla Meneses CNP [address] [place] [address] PCP - General Family Medicine 03/06/24 Eunice Del Angel, MED [address] [facility] [place] [address] Nurse Practitioner Obstetrics/Gynecology 02/09/19 Team Status: Active Member Role Status Dates Keyla Meneses IT COMMUNICATIONS MANAGER-C Primary Care Provider Active Team Status: Inactive Member Role Status Dates Keyla Meneses IT COMMUNICATIONS MANAGER-C Primary Care Provider Active Start: January 02, 2025 End: January 02, 2025 Keyla Meneses IT COMMUNICATIONS MANAGER-C Referring Provider Active Start: January 02, 2025 End: January 02, 2025 Emma Valenzuela NP, IT COMMUNICATIONS MANAGER-C Attending Provider Active Start: January 02, 2025 End: January 02, 2025 Team Status: Inactive Member Role Status Dates Keyla Meneses IT COMMUNICATIONS MANAGER-C Primary Care Provider Active Start: January 18, 2025 End: January 18, 2025 Keyla Meneses IT COMMUNICATIONS MANAGER-C Referring Provider Active Start: January 18, 2025 [...] Inactive Member Role Status Dates Keyla Meneses IT COMMUNICATIONS MANAGER-C Primary Care Provider Active Start: March 01, 2025 End: March 01, 2025 Keyla Meneses IT COMMUNICATIONS MANAGER-C Referring Provider Active Start: March 01, 2025 [...] March 01, 2025 End: March 01, 2025 Batt Machine Operator Relationship Specialty Start Date End Date Keyla Meneses CNP [address] [place] [id number] PCP - General Family Medicine 03/06/24 Eunice Del Angel, FOOD PRODUCT INSPECTOR [address] [place] [address] [address] Nurse Practitioner Obstetrics/Gynecology 02/09/19 Nel Ruff Certified Nurse Senior Rd Engineer 01/22/25 Team Status: Active Member Role/Relationship Status Dates Keyla Meneses NP-C Primary Care Provider Active Team Status: Inactive Member Role/Relationship Status Dates Keyla Meneses NP-C Primary Care Provider Active Start: January 02, 2025 End: January 02, 2025 Keyla Meneses NP-C Referring Provider Active Start: January 02, 2025 End: January 02, 2025 Emma Valenzuela NP IT COMMUNICATIONS MANAGER-C Attending Provider Active Start: January 02, 2025 [...] Role/Relationship Status Dates Keyla L Gideon , IT COMMUNICATIONS MANAGER-C Primary Care Provider Active Start: January 18, 2025 End: January 18, 2025 Nel Ruff CNM Attending Provider Active S tart: January 18, 2025 End: January 18, 2025 Nel Ruff CNM Referring Provider Active S tart: January 18, 2025 End: January 18, 2025 Team Status: Inactive Member Role/Relationship Status Dates Keyla Meneses IT COMMUNICATIONS MANAGER-C Primary Care Provider Active Start: March 01, 2025 End: March 01, 2025 Keyla Meneses IT COMMUNICATIONS MANAGER-C Referring Provider Active Start: March 01, 2025 End: March 01, 2025 Dr. Emmanuelle Contreras DO Attending Provider Activ e Start: March 01, 2025 End: March 01, 2025 Team Status: Inactive Member Role/Relationship Status Dates Keyla Meneses IT COMMUNICATIONS MANAGER-C Primary Care Provider Active Start: March 01, 2025 End: March 01, 2025 Nel Ruff CNM Attending Provider Active S tart: March 01, 2025 End: March 01, 2025 Nel Ruff CNM Referring Provider Active S tart: March 01, 2025 End: March 01, 2025 Team Status: Inactive Member Role/Relationship Status Dates Keyla Meneses IT COMMUNICATIONS MANAGER-C Primary Care Provider Active Start: March 30, 2025 End: March 30, 2025 Keyla Meneses IT COMMUNICATIONS MANAGER-C Referring Provider Active Start: March 30, 2025 End: March 30, 2025 Dr. Ayala Thompson MD Attending Provider Active Start: March 30, 2025 End: March 30, 2025 Team Status: Inactive Member Role/Relationship Status Dates Keyla Meneses IT COMMUNICATIONS MANAGER-C Primary Care Provider Active Start: April 27, 2025 End: April 27, 2025 Keyla Meneses IT COMMUNICATIONS MANAGER-C Referring Provider Active Start: April 27, 2025 End: April 27, 2025 Nel Ruff CNM Attending Provider Active S tart: April 27, 2025 End: April 27, 2025 Team Status: Inactive Member Role/Relationship Status Dates Keyla Meneses , IT COMMUNICATIONS MANAGER-C Primary Care Provider Active Start: March 01, 2025 End: March 01, 2025 Keyla Meneses IT COMMUNICATIONS MANAGER-C Referring Provider Active Start: March 01, 2025 End: March 01, 2025 Dr. Emmanuelle Contreras DO Attending Provider Activ e Start: March 01, 2025 End: March 01, 2025 Team Status: Inactive Member Role/Relationship Status Dates Keyla Meneses , IT COMMUNICATIONS MANAGER-C Primary Care Provider Active Start: March 01, 2025 End: March 01, 2025 Nel Ruff CNM Attending Provider Active S tart: March 01, 2025 End: March 01, 2025 Nel Ruff CNM Referring Provider Active S tart: March 01, 2025 End: March 01, 2025 Team Status: Inactive Member Role/Relationship Status Dates Keyla Meneses IT COMMUNICATIONS MANAGER-C Primary Care Provider Active Start: March 30, 2025 End: March 30, 2025 Keyla Meneses , IT COMMUNICATIONS MANAGER-C Referring Provider Active Start: March 30, 2025 End: March 30, 2025 Dr. Ayala Thompson MD Attending Provider Active Start: March 30, 2025 End: March 30, 2025 Team Status: Inactive Member Role/Relationship Status Dates Keyla Meneses , IT COMMUNICATIONS MANAGER-C Primary Care Provider Active Start: April 27, 2025 End: April 27, 2025 Keyla Meneses , IT COMMUNICATIONS MANAGER-C Referring Provider Active Start: April 27, 2025 End: April 27, 2025 Nel Ruff CNM Attending Provider Active S tart: April 27, 2025 End: April 27, 2025 Team Status: Inactive Member Role/Relationship Status Dates Keyla Meneses IT COMMUNICATIONS MANAGER-C Primary Care Provider Active Start: May 22, 2025 End: May 22, 2025 Keyla Meneses , IT COMMUNICATIONS MANAGER-C Referring Provider Active Start: May 22, 2025 End: May 22, 2025 Emma Valenzuela NP, IT COMMUNICATIONS MANAGER-C Attending Provider Active Start: May 22, 2025 End: May 22, 2025 Team Status: Active Member Role/Relationship Status Dates Keyla Meneses IT COMMUNICATIONS MANAGER-C Primary care physician Active Team Status: Inactive Member Role/Relationship Status Dates Keyla Meneses IT COMMUNICATIONS MANAGER-C Primary care physician Active Start: March 01, 2025 End: March 01, 2025 Keyla Meneses , IT COMMUNICATIONS MANAGER-C Referring Provider Active Start: March 01, 2025 End: March 01, 2025 Dr. Emmanuelle Contreras DO Attending physician Acti ve Start: March 01, 2025 End: March 01, 2025 Team Status: Inactive Member Role/Relationship Status Dates Keyla Meneses , IT COMMUNICATIONS MANAGER-C Primary care physician Active Start: March 01, 2025 End: March 01, 2025 Nel Ruff CNM Attending physician Active Start: March 01, 2025 End: March 01, 2025 Nel Ruff CNM Referring Provider Active S tart: March 01, 2025 End: March 01, 2025 Team Status: Inactive Member Role/Relationship Status Dates Keyla Meneses , IT COMMUNICATIONS MANAGER-C Primary care physician Active Start: March 30, 2025 End: March 30, 2025 Keyla Meneses , IT COMMUNICATIONS MANAGER-C Referring Provider Active Start: March 30, 2025 End: March 30, 2025 Dr. Ayala Thompson MD Attending physician Active Start: March 30, 2025 End: March 30, 2025 Team Status: Inactive Member Role/Relationship Status Dates Keyla Meneses , IT COMMUNICATIONS MANAGER-C Primary care physician Active Start: April 27, 2025 End: April 27, 2025 Keyla Meneses , IT COMMUNICATIONS MANAGER-C Referring Provider Active Start: April 27, 2025 End: April 27, 2025 Nel Ruff CNM Attending physician Active Start: April 27, 2025 End: April 27, 2025 Team Status: Inactive Member Role/Relationship Status Dates Keyla Meneses , IT COMMUNICATIONS MANAGER-C Primary care physician Active Start: May 22, 2025 End: May 22, 2025 Keyla Meneses , IT COMMUNICATIONS MANAGER-C Referring Provider Active Start: May 22, 2025 End: May 22, 2025 Emma Valenzuela NP, IT COMMUNICATIONS MANAGER-C Attending physician Active Start: May 22, 2025 End: May 22, 2025 Team Status: Inactive Member Role/Relationship Status Dates Keyla Meneses , IT COMMUNICATIONS MANAGER-C Primary care physician Active Start: June 13, 2025 End: June 13, 2025 Keyla Meneses , IT COMMUNICATIONS MANAGER-C Referring Provider Active Start: June 13, 2025 End: June 13, 2025 Dr. Emmanuelle Contreras DO Attending physician Acti ve Start: June 13, 2025 End: June 13, 2025 Team Status: Active Member Role/Relationship Status Dates MED MaldonadoC Primary care physician Active Start: June 13, 2025 Emma Valenzuela IT COMMUNICATIONS MANAGER, IT COMMUNICATIONS MANAGER-C Attending physician Active Start: June 13, 2025 Emma Valenzuela NP IT COMMUNICATIONS MANAGER-C Referring Provider Active Start: June 13, 2025 Batt Machine Operator Relationship Specialty Start Date End Date Gideon Keyla Meyer MED [address] [place] [address] PCP - General Family Medicine 03/06/24 Eunice Del Angel FOOD PRODUCT INSPECTOR [facility] [place] [address] Nurse Practitioner Obstetrics/Gynecology 02/09/19 Nel Ruff Certified Nurse Senior Rd Engineer 01/22/25 Team Status: Inactive Member Role/Relationship Status [...] May 22, 2025 End: May 22, 2025 mEma Valenzuela NP IT COMMUNICATIONS MANAGER-C Attending physician Active Start: May 22, 2025 [...] [id number] ($$New Bag$$ - Provider: Daniel Tobar APRN-AGRICULTURAL ENGINEERING TECHNICIAN)[id number] (Rate/Dose Change - Provider: Daniel Tobar APRN-DONAL)[id number] [...] BE BASED ON THE PRIMARY CLINICAL RECORDS. [employer] provides no warranty or guarantee of the accuracy or completeness of information in this document.
--- NOTE | 2025-08-10 12:26 | US_ITS ---
PROCEDURE: OB LIMITED WITH BIOMETRICS 08/10/2025 REASON FOR EXAM: 36WK GROWTH SCAN TECHNIQUE: Procedure Code: [id number] Modality: US Procedure: OB LIMITED WITH BIOMETRICS COMPARISON: July 13, 2025. FINDINGS Number: 1 Position: Vertex Placental Position: Posterior and not low-lying Placental Abnormalities: No evidence of previa. DIMENSIONS: Biparietal Diameter: 8.9 cm: 35 weeks and 6 days: 46 percentile/ Head Circumference: 32 cm: 36 weeks and 1 day: 16 percentile. Abdominal Circumference: 32.1 cm: 36 weeks and 0 days: 49 percentile/ Femur Length: 6.9 cm: 35 weeks and 4 days: 27 percentile/ ESTIMATED WEIGHT: 2824 g plus/-424 g ESTIMATED WEIGHT PERCENTILE (24+ weeks): 42 percentile ESTIMATED GESTATIONAL AGE: Baseline: 36 weeks and 3 days By Ultrasound: 35 weeks and 5 days ESTIMATED DATE OF DELIVERY: Baseline: September 04, 2025 By Ultrasound: September 09, 2025 BIOPHYSICAL ASSESSMENT: Amniotic Fluid Volume: 5.2 cm Amniotic Fluid Index: 12.6 cm (8-24 cm normal range) Cardiac Motion: 136 beats per minute (average) Trunk and Limb Motion: Present. US/OB Limited With Biometrics IMPRESSION: Single live intrauterine gestation with mean gestational age of 35 weeks and 5 days. Reading Location: [place] [address]
== END | disposition home or self-care (01) ==
LOC: US 12:16
PROVIDERS: PCP Nurse Practitioner; Referring Provider Advanced Practice Midwife; Visit Provider Advanced Practice Midwife
DX: O24.419 Gestational diabetes mellitus in pregnancy, unspecified control (principal); Z3A.00 Weeks of gestation of pregnancy not specified
CPT/HCPCS: 76816; 76819

== ENCOUNTER → 2025-08-13 | Outpatient (CLI) | payer BC, SELFPAY ==
[2025-08-13 09:46] LABS: ROM Internal Control Test YES-OK TO RESULT pt. (Internal QC); ROM Patient Test Negative (Negative)
[2025-08-13 09:47] LABS: Record Kit Lot#, ROM+ K3607
== END | disposition home or self-care (01) ==
LOC: LABSPEC 09:16
PROVIDERS: PCP Nurse Practitioner; Visit Provider Obstetrics & Gynecology
DX: O09.93 Supervision of high risk pregnancy, unspecified, third trimester (principal); Z3A.36 36 weeks gestation of pregnancy
CPT/HCPCS: 84112

== ENCOUNTER 2025-08-22 05:00 | Inpatient (IN) | payer BC, SELFPAY ==
[2025-08-22] VITALS (19 sets, daily range): BP systolic 100–127; BP diastolic 52–82; PULSE 80–98; RESP 16–19; TEMP 36.3–36.9; O2SAT 95–98; BMI 31.7
--- OUTSIDE RECORDS SUMMARY | 2025-08-22 04:55 | XMS RPT_ITS | CCD ---
Author Organization [facility] Care Team Providers Care Poultry Debeaker Name Role Phone Anand Cooley Unavailable Aisha, Michael Unavailable Unavailable Aisha, Michael Unavailable Unavailable ANAND COOLEY Primary Care Unavailable Anand Cooley Primary Care Provider Eunice Moreno Unavailable Татьяна Brooke Primary Care Provider Anand Cooley DO Primary Care Provider Eunice Del Angel CNP Unavailable Татьяна Brooke CNP Primary Care Provider [phone] Татьяна Brooke CNP Primary Care Provider [phone] Anand Cooley DO Primary Care Provider Anand Cooley Unavailable Marie Mario Unavailable Unavailable Bonifay, Ms. Marie Goldman Attending Unavailable Dr. Anand Cooley Primary Care Unavail able Dr. Anand Cooley Primary Care Unavail able Fabiano, Ms. Marie Goldman Attending Unavailable Eunice Del Angel CNPanne Unavailable [phone] Татьяна Brooke CNP Primary Care Provider [phone] Anand Cooley DO Primary Care Provider Татьяна [...] Lenora DO, Anand Edmond Primary Care Provider [phone] LENORA, ANAND EDMOND Primary Care Unavailable ANTONIO LOPEZ Attending Unavailable Gideon CLIENT MANAGER-CFelizl L Primary Care Provider Gideon CLIENT MANAGER-CFelizl L Referring Provider Emma Wyatt Attending Provider Nel Ruff CNM Attending Provider [phone] Nel Ruff CNM Referring Provider Dr. Emmanuelle Contreras DO Attending Provider Dr. Ayala Thompson MD Attending Provider Gideon CLIENT MANAGER-CKeyla Primary Care Provider Gideon NICOLE-CKeyla Referring Provider Nel Ruff CNM Attending Provider Nel Ruff CNM Referring Provider Emma Wyatt Attending Provider Gideon CLIENT MANAGER-C, Keyla L Primary Care Physician Dr. Emmanuelle Contreras DO Attending Physician Nel Ruff CNM Attending Physician [phone] Jay GREER, Dr. Cai Attending Physician Bianca CLIENT MANAGER-CEmma Attending Physician [phone] Bianca CLIENT MANAGER-CEmma Referring Provider [phone] EMMANUELLE HERNÁNDEZ Referring [place]av[place] [facility] [place] Un[place] MALENA LINCOLN Attending Unavailable ROSHNI DAVIDSON Attending Unavailable [place] [facility] [place] Care Unavailable EMMANUELLE HERNÁNDEZ Referring Unavailab le Gideon CLIENT MANAGER-C, Keyla L Primary Care Physician Gideon CLIENT MANAGER-C, Keyla L Referring Provider [phone] [...] Drug Class(es) Dates Sig (Normalized) Sig (Original) [id number] 200 actuat albuterol 0.09 mg/actuat metered dose [...] 12:00am As directed Blood-Glucose,Receive r,Cont (Dexcom G7 Search Engineer) misc (1 source) Start: 06-28-2025 Blood-Glucose,Recei mela,Cont (Dexcom G7 Search Engineer) misc Active 0 .Route 1 June 28, 2025 12:00am As directed brompheniramine maleate 0.4 mg/ml / dextromethorphan hydrobromide 2 mg/ml / pseudoephedrine hydrochloride 6 mg/ml oral solution (2 sources) alpha-Adrenergic Agonist, Uncompetitive R-gwiset-N-asparta te Receptor Antagonist, Sigma-1 Agonist Start: 11-09-2024 [...] oral tablet (4 sources) alpha-Adrenergic Agonist, Uncompetitive B-tejplu-R-aspartate Receptor Antagonist, Sigma-1 Agonist Start: 2023 take [...] unless otherwise directed by your doctor. Pnv No.674-Uj-Hn0-Dha -Epa-Fish 400 mcg-35 mg- 25 mg-5 mg tablet,chewable (8 sources) Start: 01-11-2025 Start: 01-11-2025 Pnv No.153-Fa- Ua9-Sbs-Ncv-Fish 400 mcg-35 mg- 25 mg-5 mg tablet,chewable [...] above: on metformin- sees e ndo in [place] on metformin- sees e ndo in [place] . stopped at first visit. Other endocrine [...] Test Name Value Interpretation Reference Range Facility Warehouse Administrator Office Visit Reporton 07-24-2025 Warehouse Administrator Office Visit Report [facility]'s [address], [address] [place] [address] OFFICE VISIT Date of Service: 07/24/25 MR#: [id number] Acct: [id number] Name: DRAKE PETTY Rep #: [id number] : 1995 Provider: BRET Gay ams Age/Sex: 30/F Location: [facility] Status: Signed Intake Vital Signs 06/13/25 15:26 06/25/25 15:16 07/20/25 13:16 07/24/25 14:13 07/24/25 14:15 Height 5 ft 4 in 5 ft 4 in 5 ft 4 in 5 ft 4 in 5 ft 4 in Weight: 184 lb 8 oz BMI 31.6 BP 123/79 H Intake Visit Reasons: 34wk ob/nst Newspaper Writer Required: No Is patient in pain?: No [...] #1 ea 06/28/25 07/24/25 Rx (Dexcom G7 Search Engineer) metformin 500 mg tablet 500 mg PO [...] 1 current occupational status: employed 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 Normal [facility] Warehouse Administrator Office Visit Reporton 07-20-2025 Warehouse Administrator Office Visit Report [facility]'s [address], [address] [place] [address] OFFICE VISIT Date of Service: 07/20/25 MR#: [id number] Acct: [id number] Name: DRAKE PETTY Rep #: [id number] : 1995 Provider: Dr. 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 ?-?? (more content not included)... Normal [facility] Warehouse Administrator Office Visit Reporton 07-17-2025 Warehouse Administrator Office Visit Report [facility] [address] [address] OFFICE VISIT Date of Service: 07/17/25 MR#: [id number] Acct: [id number] Name: DRAKE PETTY Rep #: [id number] : 1995 Provider: Dr. 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 Normal [facility] OB Limited With Biometricson 07-13-2025 OB Limited With Biometrics [facility] Imaging Services [address] [place] [address] OB Limited With Biometrics MR#: [id number] Acct: [id number] Name: DRAKE PETTY Rep #: [id number] : 1995 F 30 From: Tano Wheeler DO PCP: OLY Maldonado Status: REG CLI Study: OB Limited With Biometrics Date of Exam: 07/13 Exam# [id number] Ordering Dr: Nel Ruff CNM PROCEDURE: OB [...] heart rate of 136 bpm. Reading Location: [id number] CC: BRET Ruff; OLY Meneses Recreational Aide: Signed Normal [facility] Warehouse Administrator Office Visit Reporton 07-13-2025 Warehouse Administrator Office Visit Report [facility]'s [address], [address] [place] [address] OFFICE VISIT Date of Service: 07/13/25 MR#: [id number] Acct: [id number] Name: DRAKE PETTY Rep #: [id number] : 1995 Provider: BRET Gay ams Age/Sex: 30/F Location: [facility] Status: Signed Intake Vital Signs 06/25/25 15:16 07/10/25 10:14 07/13/25 14:28 Height 5 ft 4 in 5 ft 4 in 5 ft 4 in Weight: 183 lb 1 oz 182 lb 9 oz BMI 31.4 31.3 BP 116/75 110/72 Intake Visit Reasons: 32wk nst only Newspaper Writer Required: No Is patient in pain?: No [...] #1 ea 06/28/25 07/13/25 Rx (Dexcom G7 Search Engineer) Last Menstrual Period: 11/09/24 Zika: Zika virus [...] 1 current occupational status: employed 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 Normal [facility] Warehouse Administrator Office Visit Reporton 07-10-2025 Warehouse Administrator Office Visit Report [facility]'s [address], [address] [place] [address] OFFICE VISIT Date of Service: 07/10/25 MR#: [id number] Acct: [id number] Name: DRAKE PETTY Rep #: [id number] : 1995 Provider: OLY hoffman Age/Sex: 30/F Location: [facility] Status: Signed Intake Vital Signs 06/13/25 15:26 06/25/25 15:16 07/10/25 10:14 Height 5 ft 4 in 5 ft 4 in 5 ft 4 in Weight: 185 lb 183 lb 6 oz 183 lb 1 oz BMI 31.7 31.4 31.4 BP 101/67 108/74 116/75 Intake Visit Reasons: 32wk ob/nst Newspaper Writer Required: No Is patient in pain?: No [...] #1 ea 06/28/25 07/10/25 Rx (Dexcom G7 Search Engineer) Last Menstrual Period: 11/09/24 Zika: Zika virus [...] 1 current occupational status: employed 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 Normal [facility] Laboratory - Chemistry and C hemistry - challengeOrdered By: Nel Ruff on 06-25-2025 Glucose Ql (U) Negative [facility] Laboratory - UrinalysisOrder ed By: Nel Ruff on 06-25-2025 Protein Ql (U) Negative [facility] Warehouse Administrator Office Visit Reporton 06-25-2025 Warehouse Administrator Office Visit Report [facility]'s [address], [address] [place] [address] OFFICE VISIT Date of Service: 06/25/25 MR#: [id number] Acct: [id number] Name: DRAKE PETTY Rep #: [id number] : 1995 Provider: BRET Gay ams Age/Sex: 30/F Location: [facility] Status: Signed Intake Vital Signs 04/27/25 11:42 06/13/25 15:26 06/25/25 15:16 Height 5 ft 4 in 5 ft 4 in 5 ft 4 in Weight: 185 lb 183 lb 6 oz BMI 31.7 31.4 BP 101/67 108/74 Intake Visit Reasons: 30 WK OB Chief Complaint: 30wk OB Newspaper Writer Required: No Is patient in pain?: No [...] 1 current occupational status: employed current occupation: FT-[employer] current occupational exposures/hazards: No pets and animals: [...] 5-6 times per week duration: 45-60 minutes/day carolann/jewish: None seatbelt use: always do you feel [...] 122/79 -???-? (more content not included)... Normal [facility] Absolute lymphocyte countOrd ered By: Emma Valenzuela on 06-13-2025 Lymphocytes Auto (Unsp spec) [#/Vol] 2.00 10*3/uL 0.83-4.51 [facility] Absolute neutrophil countOrd ered By: Emma Valenzuela on 06-13-2025 Neutrophils (Bld) [#/Vol] 7.3 10*3/uL 2.0-7.7 [facility] Automated lymphocyte count a s percentage of total leukocytesOrdered By: Emma Bronx on 06-13-2025 Lymphocytes/100 WBC Auto (Unsp spec) 20.0 % 19-41 [facility] Basophil percentageOrdered B y: Emma Bianca on 06-13-2025 Basophils/100 WBC (Bld) 0.3 % 0-1 [facility] CBC W/Diff, Automatedon -2024 Absolute Lymph 2.00 X10 3/uL Normal 0.83-4.51 [facility] Comment on above: Performed By: #### L 3890.6006, L100.0100, L501.0250, L509.8002 #### [facility] [address] [place], [address] Absolute Neut 7.3 X10 3/uL Normal 2.0-7.7 [facility] Comment on above: Performed By: #### L 3890.6006, L100.0100, L501.0250, L509.8002 #### [facility] [address] [place], [address] Basophils/100 WBC (Bld) 0.3 % Normal 0-1 [facility] Comment on above: Performed By: #### L 3890.6006, L100.0100, L501.0250, L509.8002 #### [facility] [address] [place], [address] Eosinophils/100 WBC (Bld) 1.3 % Normal 0-5 [facility] Comment on above: Performed By: #### L 3890.6006, L100.0100, L501.0250, L509.8002 #### [facility] [address] [place], [address] Erythrocyte distribution width (RBC) [Ratio] 13.4 % Normal 11.6-14.6 [facility] Comment on above: Performed By: #### L 3890.6006, L100.0100, L501.0250, L509.8002 #### [facility] [address] [place], [address] Hematocrit (Bld) [Volume fraction] 36.0 % Low 37-47 [facility] Comment on above: Performed By: #### L 3890.6006, L100.0100, L501.0250, L509.8002 #### [facility] [address] [place], [address] Hemoglobin (Bld) [Mass/Vol] 12.0 g/dL Normal 12.0-15.0 [facility] Comment on above: Performed By: #### L 3890.6006, L100.0100, L501.0250, L509.8002 #### [facility] [address] [place], [address] IG% 0.500 Normal 0.0-0.9 [facility] Comment on above: Result Comment: IG% - Immature Granulocytes (promyelocytes, myelocytes and metamyelocytes) > 1% indicates that a LEFT SHIFT is Present. Performed By: #### L 3890.6006, L100.0100, L501.0250, L509.8002 #### [facility] [address] [place], [address] Lymphocytes/100 WBC (Bld) 20.0 % Normal 19-41 [facility] Comment on above: Performed By: #### L 3890.6006, L100.0100, L501.0250, L509.8002 #### [facility] [address] [place], [address] MCH (RBC) [Entitic mass] 29.0 pg Normal 27.0-32.0 [facility] Comment on above: Performed By: #### L 3890.6006, L100.0100, L501.0250, L509.8002 #### [facility] [address] [place], [address] MCHC (RBC) [Mass/Vol] 33.3 g/dL Normal 32-36 [facility] Comment on above: Performed By: #### L 3890.6006, L100.0100, L501.0250, L509.8002 #### [facility] [address] [place], [address] MCV (RBC) [Entitic vol] 87.0 fL Normal 81-99 [facility] Comment on above: Performed By: #### L 3890.6006, L100.0100, L501.0250, L509.8002 #### [facility] [address] [place], [address] Monocytes/100 WBC (Bld) 5.4 % Normal 0-10 [facility] Comment on above: Performed By: #### L 3890.6006, L100.0100, L501.0250, L509.8002 #### [facility] [address] [place], [address] Neutrophils/100 WBC (Bld) 72.5 % High 47-70 [facility] Comment on above: Performed By: #### L 3890.6006, L100.0100, L501.0250, L509.8002 #### [facility] [address] [place], [address] Nucleated RBC (Bld) [#/Vol] 0 10*3/uL Normal 0-5 [facility] Comment on above: Performed By: #### L 3890.6006, L100.0100, L501.0250, L509.8002 #### [facility] [address] [place], [address] Platelet mean volume (Bld) [Entitic vol] 10.3 fL Normal 6.2-12.0 [facility] Comment on above: Performed By: #### L 3890.6006, L100.0100, L501.0250, L509.8002 #### [facility] [address] [place], [address] Platelets (Bld) [#/Vol] 258 10*3/uL Normal 150-450 [facility] Comment on above: Performed By: #### L 3890.6006, L100.0100, L501.0250, L509.8002 #### [facility] [address] [place], [address] RBC (Bld) [#/Vol] 4.14 10*6/uL Low 4.2-5.4 [facility] Comment on above: Performed By: #### L 3890.6006, L100.0100, L501.0250, L509.8002 #### [facility] [address] [place], [address] RDW SD 41.7 fl Normal 35.1-43.9 [facility] Comment on above: Performed By: #### L 3890.6006, L100.0100, L501.0250, L509.8002 #### [facility] [address] [place], [address] WBC (Bld) [#/Vol] 10.0 10*3/uL Normal 4.4-11.0 [facility] Comment on above: Performed By: #### L 3890.6006, L100.0100, L501.0250, L509.8002 #### [facility] [address] [place], [address] Eosinophil percentageOrdered By: Emma Valenzuela on 06-13-2025 Eosinophils/100 WBC (Bld) 1.3 % 0-5 [facility] Erythrocyte distribution wid th ratioOrdered By: Emma Valenzuela on 06-13-2025 Erythrocyte distribution width (RBC) [Ratio] 13.4 % 11.6-14.6 [facility] Erythrocyte distribution wid th standard deviationOrdered By: Emma Valenzuela on 06-13-2025 Erythrocyte distribution width (RBC) [Ratio] 41.7 fl 35.1-43.9 [facility] Glucose Challenge Gest 1H 50 huong 06-13-2025 GLU GEST 50g 1H 166 mg/dL High 70-140 [facility] Comment on above: Performed By: #### L 3890.6006, L100.0100, L501.0250, L509.8002 #### [facility] [address] [facility] [place], [address] Glucose measurement at 2 ba rs post-dose gestational glucose tolerance testOrdered By: Emmaba Valenzuela on 06-13-2025 Glucose [Mass/Vol] 166 mg/dL High 70-140 [facility] HIVon 06-13-2025 HIV Non-Reactive Normal Nonreactive [facility] Comment on above: Result Comment: Non- Reactive Reactive Repeatedly reactive samples must be confirmed according to CDC recommended confirmatory algorithms. The subresults for either HIVAG or AHIV can be used as an aid in the selection of the confirmation algorithm for reactive samples. Send out specimens with Reactive results to [facility] for confirmation. Order the HIV antibody detection and differentiation: #[id number] Performed By: #### L 3890.6006, L100.0100, L501.0250, L509.8002 #### [facility] [address] [facility] [place], [address] Hematocrit Auto (Bld) [Volum e fraction]Ordered By: Emma Valenzuela on 06-13-2025 Hematocrit (Bld) [Volume fraction] 36.0 % Low 37-47 [facility] Hemoglobin measurementOrdere d By: Emma Valenzuela on 06-13-2025 Hemoglobin (Bld) [Mass/Vol] 12.0 g/dL 12.0-15.0 [facility] Immature granulocytes/100 WB C Auto (Bld)Ordered By: Emma Valenzuela on 06-13-2025 Immature granulocytes/100 WBC (Bld) 0.500 % 0.0-0.9 [facility] Comment on above: IG% - Immature Granu locytes (promyelocytes, myelocytes and metamyelocytes) > 1% indicates that a LEFT SHIFT is Present. Laboratory - Chemistry and C hemistry - challengeOrdered By: Emmanuelle Espinoza on 06-13-2025 Glucose Ql (U) Negative [facility] Laboratory - UrinalysisOrder ed By: Emmanuelle Espinoza on 06-13-2025 Protein Ql (U) Negative [facility] MCV (mean corpuscular volume ) determinationOrdered By: Emma Valenzuela on 06-13-2025 MCV (RBC) [Entitic vol] 87.0 fL 81-99 [facility] Mean corpuscular hemoglobin (MCH) determinationOrdered By: Emma Valenzuela on 06-13-2025 MCH (RBC) [Entitic mass] 29.0 pg 27.0-32.0 [facility] Mean corpuscular hemoglobin concentration (MCHC) determinationOrdered By: Emma Valenzuela on 06-13-2025 MCHC (RBC) [Mass/Vol] 33.3 g/dL 32-36 [facility] Mean platelet volume determi nationOrdered By: Emma Valenzuela on 06-13-2025 Platelet mean volume (Bld) [Entitic vol] 10.3 fL 6.2-12.0 [facility] Monocyte percentageOrdered B y: Emma Valenzuela on 06-13-2025 Monocytes/100 WBC (Bld) 5.4 % 0-10 [facility] Neutrophil percentageOrdered By: Emma Valenzuela on 06-13-2025 Neutrophils/100 WBC (Bld) 72.5 % High 47-70 [facility] No Panel InformationOrdered By: Emma Valenzuela on 06-13-2025 HIV (1&2) Antibody Non-Reactive Nonreactive [facility] Comment on above: Non-ReactiveReactive Repeatedly reactive samples must be confirmed according to CDC recommended confirmatory algorithms. The subresults for either HIVAG or AHIV can be used as an aid in the selection of the confirmation algorithm for reactive samples.Send out specimens with Reactive results to [facility] for confirmation.Order the HIV antibody detection and differentiation: #[id number] Nucleated red blood cell per centageOrdered By: Emma Valenzuela on 06-13-2025 Nucleated RBC/100 WBC (Bld) [Ratio] 0 % 0-5 [facility] Warehouse Administrator Office Visit Reporton 06-13-2025 Warehouse Administrator Office Visit Report [facility]'s [address], [address] [place] [address] OFFICE VISIT Date of Service: 06/13/25 MR#: [id number] Acct: [id number] Name: DRAKE PETTY Rep #: [id number] : 1995 Provider: Dr. Emmanuelle Bello DO Age/Sex: 30/F Location: [facility] Status: Signed Intake Vital Signs 03/30/25 13:58 05/22/25 15:35 06/13/25 15:26 Height 5 ft 4 in 5 ft 4 in 5 ft 4 in Weight: 185 lb BMI 31.7 BP 101/67 Intake Visit Reasons: 28wk ob/glucose Newspaper Writer Required: No Is patient in pain?: No [...] 1 current occupational status: employed current occupation: FT-[employer] current occupational exposures/hazards: No pets and animals: [...] 5-6 times per week duration: 45-60 minutes/day carolann/jewish: None seatbelt use: always do you feel [...] 03/01/25 -???-?? (more content not included)... Normal [facility] Platelet countOrdered By: Travis Valenzuela on 06-13-2025 Platelets (Bld) [#/Vol] 258 10*3/uL 150-450 [facility] RBC Auto (Bld) [#/Vol]Ordere d By: Emma Valenzuela on 06-13-2025 RBC (Bld) [#/Vol] 4.14 10*6/uL Low 4.2-5.4 [facility] Syphilis Antibodieson 2024 Syphilis Abs Non-Reactive Normal Nonreactive [facility] Comment on above: Performed By: #### L 3890.6006, L100.0100, L501.0250, L509.8002 #### [facility] [address] [place], [address] White blood cell (WBC) count Ordered By: Emma Valenzuela on 06-13-2025 WBC (Bld) [#/Vol] 10.0 10*3/uL 4.4-11.0 [facility] Laboratory - Chemistry and C hemistry - challengeOrdered By: Emma Valenzuela on 05-22-2025 Glucose Ql (U) Negative [facility] Laboratory - UrinalysisOrder ed By: Emma Valenzuela on 05-22-2025 Protein Ql (U) Negative [facility] Warehouse Administrator Office Visit Reporton 05-22-2025 Warehouse Administrator Office Visit Report [facility], [address] [place] [address] OFFICE VISIT Date of Service: 05/22/25 MR#: [id number] Acct: [id number] Name: JANICEDRAKE C Rep #: [id number] : 1995 Provider: OLY hoffman Age/Sex: 30/F Location: [facility] Status: Signed Intake Vital Signs 03/30/25 13:58 04/27/25 11:42 05/22/25 15:35 Height 5 ft 4 in 5 ft 4 in 5 ft 4 in Weight: 184 lb 5 oz BMI 31.6 BP 115/75 Intake Visit Reasons: 25wk ob Chief Complaint: 25 Week OB Newspaper Writer Required: No Is patient in pain?: No [...] 1 current occupational status: employed current occupation: FT-[employer] current occupational exposures/hazards: No pets and animals: [...] 5-6 times per week duration: 45-60 minutes/day carolann/jewish: None seatbelt use: always do you feel [...] Negative -???-? (more content not included)... Normal [facility] Laboratory - Chemistry and C hemistry - challengeOrdered By: Nel Ruff on 04-27-2025 Glucose Ql (U) Negative [facility] - UrinalysisOrder ed By: Nel Ruff on 04-27-2025 Protein Ql (U) Negative [facility] Warehouse Administrator Office Visit Reporton 04-27-2025 Warehouse Administrator Office Visit Report [facility]'s [address], [address] [place] [address] OFFICE VISIT Date of Service: 04/27/25 MR#: [id number] Acct: [id number] Name: DRAKE PETTY Rep #: [id number] : 1995 Provider: BRET Gay ams Age/Sex: 30/F Location: [facility] Status: Signed Intake Vital Signs 03/01/25 13:22 03/30/25 13:58 04/27/25 11:42 Height 5 ft 4 in 5 ft 4 in 5 ft 4 in Weight: 177 lb 7 oz BMI 30.4 BP 105/69 Intake Visit Reasons: 21 wk ob Chief Complaint: 21wk OB Newspaper Writer Required: No Is patient in pain?: No [...] 1 current occupational status: employed current occupation: FT-[employer] current occupational exposures/hazards: No pets and animals: [...] 5-6 times per week duration: 45-60 minutes/day carolann/jewish: None seatbelt use: always do you feel [...] ?-???-???-???-???-? ??-???-???- (more content not included)... Normal [facility] - Chemistry and C hemistry - challengeOrdered By: Ayala Thompson on 03-30-2025 Glucose Ql (U) Negative [facility] Laboratory - UrinalysisOrder ed By: Ayala Thompson on 03-30-2025 Protein Ql (U) Negative [facility] Warehouse Administrator Office Visit Reporton 03-30-2025 Warehouse Administrator Office Visit Report [facility]'s [address], [address] [place] [address] OFFICE VISIT Date of Service: 03/30/25 MR#: [id number] Acct: [id number] Name: DRAKE PETTY Rep #: [id number] : 1995 Provider: Dr. Ayala elliott MD Age/Sex: 30/F Location: [facility] Status: Signed Intake Vital Signs 01/18/25 08:47 03/01/25 13:22 03/30/25 13:58 Height 5 ft 4 in 5 ft 4 in 5 ft 4 in Weight: 169 lb 4 oz BMI 29.0 BP 116/72 Intake Visit Reasons: 17 wk ob Newspaper Writer Required: No Is patient in pain?: No [...] 1 current occupational status: employed current occupation: FT[employer] current occupational exposures/hazards: No pets and animals: [...] 5-6 times per week duration: 45-60 minutes/day carolann/jewish: None seatbelt use: always do you feel [...] lb (+ (more content not included)... Normal [facility] Absolute lymphocyte countOrd ered By: Nel Ruff on 03-01-2025 Lymphocytes Auto (Unsp spec) [#/Vol] 1.82 10*3/uL 0.83-4.51 [facility] Absolute neutrophil countOrd ered By: Nel Ruff on 03-01-2025 Neutrophils (Bld) [#/Vol] 5.2 10*3/uL 2.0-7.7 [facility] Automated lymphocyte count a s percentage of total leukocytesOrdered By: Nel Ruff on 03-01-2025 Lymphocytes/100 WBC Auto (Unsp spec) 23.2 % - [facility] Basophil percentageOrdered B y: Nel Ruff on 03-01-2025 Basophils/100 WBC (Bld) 0.4 % 0-1 [facility] CBC W/Diff, Automatedon 02-11 Absolute Lymph 1.82 X10 3/uL Normal 0.83-4.51 [facility] Comment on above: Performed By: #### L 3890.6006, L100.0100, L501.0250, L509.8002 #### [facility] [address] [place], [address] Absolute Neut 5.2 X10 3/uL Normal 2.0-7.7 [facility] Comment on above: Performed By: #### L 3890.6006, L100.0100, L501.0250, L509.8002 #### [facility] [address] [place], [address] Basophils/100 WBC (Bld) 0.4 % Normal 0-1 [facility] Comment on above: Performed By: #### L 3890.6006, L100.0100, L501.0250, L509.8002 #### [facility] [address] [place], [address] Eosinophils/100 WBC (Bld) 1.3 % Normal 0-5 [facility] Comment on above: Performed By: #### L 3890.6006, L100.0100, L501.0250, L509.8002 #### [facility] [address] [place], [address] Erythrocyte distribution width (RBC) [Ratio] 12.6 % Normal 11.6-14.6 [facility] Comment on above: Performed By: #### L 3890.6006, L100.0100, L501.0250, L509.8002 #### [facility] [address] [place], [address] Hematocrit (Bld) [Volume fraction] 37.4 % Normal 37-47 [facility] Comment on above: Performed By: #### L 3890.6006, L100.0100, L501.0250, L509.8002 #### [facility] [address] [place], [address] Hemoglobin (Bld) [Mass/Vol] 12.6 g/dL Normal 12.0-15.0 [facility] Comment on above: Performed By: #### L 3890.6006, L100.0100, L501.0250, L509.8002 #### [facility] [address] [place], [address] IG% 0.300 Normal 0.0-0.9 [facility] Comment on above: Result Comment: IG% - Immature Granulocytes (promyelocytes, myelocytes and metamyelocytes) > 1% indicates that a LEFT SHIFT is Present. Performed By: #### L 3890.6006, L100.0100, L501.0250, L509.8002 #### [facility] [address] [place], [address] Lymphocytes/100 WBC (Bld) 23.2 % Normal 19-41 [facility] Comment on above: Performed By: #### L 3890.6006, L100.0100, L501.0250, L509.8002 #### [facility] [address] [place], [address] MCH (RBC) [Entitic mass] 29.2 pg Normal 27.0-32.0 [facility] Comment on above: Performed By: #### L 3890.6006, L100.0100, L501.0250, L509.8002 #### [facility] [address] [place], [address] MCHC (RBC) [Mass/Vol] 33.7 g/dL Normal 32-36 [facility] Comment on above: Performed By: #### L 3890.6006, L100.0100, L501.0250, L509.8002 #### [facility] [address] [place], [address] MCV (RBC) [Entitic vol] 86.6 fL Normal 81-99 [facility] Comment on above: Performed By: #### L 3890.6006, L100.0100, L501.0250, L509.8002 #### [facility] [address] [place], [address] Monocytes/100 WBC (Bld) 8.4 % Normal 0-10 [facility] Comment on above: Performed By: #### L 3890.6006, L100.0100, L501.0250, L509.8002 #### [facility] [address] [place], [address] Neutrophils/100 WBC (Bld) 66.4 % Normal 47-70 [facility] Comment on above: Performed By: #### L 3890.6006, L100.0100, L501.0250, L509.8002 #### [facility] [address] [place], [address] Nucleated RBC (Bld) [#/Vol] 0 10*3/uL Normal 0-5 [facility] Comment on above: Performed By: #### L 3890.6006, L100.0100, L501.0250, L509.8002 #### [facility] [address] [place], [address] Platelet mean volume (Bld) [Entitic vol] 10.0 fL Normal 6.2-12.0 [facility] Comment on above: Performed By: #### L 3890.6006, L100.0100, L501.0250, L509.8002 #### [facility] [address] [place], [address] Platelets (Bld) [#/Vol] 258 10*3/uL Normal 150-450 [facility] Comment on above: Performed By: #### L 3890.6006, L100.0100, L501.0250, L509.8002 #### [facility] [address] [place], [address] RBC (Bld) [#/Vol] 4.32 10*6/uL Normal 4.2-5.4 [facility] Comment on above: Performed By: #### L 3890.6006, L100.0100, L501.0250, L509.8002 #### [facility] [address] [place], [address] RDW SD 39.9 fl Normal 35.1-43.9 [facility] Comment on above: Performed By: #### L 3890.6006, L100.0100, L501.0250, L509.8002 #### [facility] [address] [place], [address] WBC (Bld) [#/Vol] 7.9 10*3/uL Normal 4.4-11.0 [facility] Comment on above: Performed By: #### L 3890.6006, L100.0100, L501.0250, L509.8002 #### [facility] [address] [facility] [place], [address] Eosinophil percentageOrdered By: Nel Ruff on 03-01-2025 Eosinophils/100 WBC (Bld) 1.3 % 0-5 [facility] Erythrocyte distribution wid th ratioOrdered By: Nel Ruff on 03-01-2025 Erythrocyte distribution width (RBC) [Ratio] 12.6 % 11.6-14.6 [facility] Erythrocyte distribution wid th standard deviationOrdered By: Nel Ruff on 03-01-2025 Erythrocyte distribution width (RBC) [Ratio] 39.9 fl 35.1-43.9 [facility] HIVon 03-01-2025 HIV Non-Reactive Normal Nonreactive [facility] Comment on above: Result Comment: Non- Reactive Reactive Repeatedly reactive samples must be confirmed according to CDC recommended confirmatory algorithms. The subresults for either HIVAG or AHIV can be used as an aid in the selection of the confirmation algorithm for reactive samples. Send out specimens with Reactive results to [facility] for confirmation. Order the HIV antibody detection and differentiation: lc#[id number] Performed By: #### L 3890.6006, L100.0100, L501.0250, L509.8002 #### [facility] [address] [place], [address] Hematocrit Auto (Bld) [Volum e fraction]Ordered By: Nel Ruff on 03-01-2025 Hematocrit (Bld) [Volume fraction] 37.4 % 37-47 [facility] Hemoglobin A1con 03-01-2025 HbA1c (Bld) [Mass fraction] 5.2 % Normal <=5.6 [facility] Comment on above: Result Comment: Norm al < 5.7 % Prediabetic 5.7 - 6.4 % Diabetic >or= 6.5 % Please note range changes. Performed By: #### L 3890.6006, L100.0100, L501.0250, L509.8002 #### [facility] [address] [facility] [place], [address] Hemoglobin A1c percentageOrd ered By: Nel Ruff on 03-01-2025 HbA1c (Bld) [Mass fraction] 5.2 % <5.7 [facility] Comment on above: Normal < 5.7 % Predi abetic 5.7 - 6.4 % Diabetic >or= 6.5 % Please note range changes. Hemoglobin measurementOrdere d By: Nle Ruff on 03-01-2025 Hemoglobin (Bld) [Mass/Vol] 12.6 g/dL 12.0-15.0 [facility] Hepatitis C Antibodyon 03-01 Hepatitis C Ab Non-Reactive Normal Nonreactive [facility] Comment on above: Result Comment: Reac tive: Presumptive evidence of antibodies to HCV. Follow CDC recommendations for supplemental testing. Non-Reactive: Antibodies to HCV were not detected; does not exclude the possibility of exposure to HCV Reactive Results are presumptive evidence of antibodies to HCV. Follow CDC recommendations for supplemental testing. Order confirmation testing: HCV Quant by PCR testing - HCVPCR #[id number] Non Reactive: < 0.8 Equivocal: >/= 0.8 to < 1.0 Reactive: >/= 1.0 The CDC requires that a reactive/equivocal HCV antibody result be sent out for confirmation. HCV Quant by PCR testing. Performed By: #### L 3890.6006, L100.0100, L501.0250, L509.8002 #### [facility] [address] [facility] [place], [place], [address] Immature granulocytes/100 WB C Auto (Bld)Ordered By: Nel Ruff on 03-01-2025 Immature granulocytes/100 WBC (Bld) 0.300 % 0.0-0.9 [facility] Comment on above: IG% - Immature Granu locytes (promyelocytes, myelocytes and metamyelocytes) > 1% indicates that a LEFT SHIFT is Present. L3890.6102on 03-01-2025 HEP B Surf Ag Non-Reactive Normal Nonreactive [facility] Comment on above: Result Comment: Reac tive: Presumptive evidence of HBV. Repeatedly reactive samples must be confirmed using a neutralization test ([employer] HBsAg Confirmatory Test) Non-Reactive: HBsAg not detected; does not exclude the possibility of exposure to HBV Performed By: #### L 3890.6006, L100.0100, L501.0250, L509.8002 #### [facility] [address] [facility] [place], [address] L509.4006on 03-01-2025 Rubella IgG REAC Normal Nonreactive [facility] Comment on above: Result Comment: Anti body Result: Interpretation Non-Reactive: Non-Immune Reactive: Immune The following results were obtained with the [employer] Rubella IgG assay. Results from assays of other manufacturers cannot be used interchangeably. Performed By: #### L 3890.6006, L100.0100, L501.0250, L509.8002 #### [facility] [address] [facility] [place], [address] Laboratory - Chemistry and C hemistry - challengeOrdered By: Emmanuelle Espinoza on 03-01-2025 Glucose Ql (U) Negative [facility] - Microbiology an d Antimicrobial susceptibilityOrdered By: Nel Ruff on 03-01-2025 HBV surface Ag Ql (S) Non-Reactive Nonreactive [facility] Comment on above: Reactive: Presumptiv e evidence of HBV. Repeatedly reactive samples must be confirmed using a neutralization test ([employer] HBsAg Confirmatory Test)Non-Reactive: HBsAg not detected; does not exclude the possibility of exposure to HBV Laboratory - UrinalysisOrder ed By: Emmanuelle Espinoza on 03-01-2025 Protein Ql (U) Negative [facility] MCV (mean corpuscular volume ) determinationOrdered By: Nel Ruff on 03-01-2025 MCV (RBC) [Entitic vol] 86.6 fL 81-99 [facility] Mean corpuscular hemoglobin (MCH) determinationOrdered By: Nel Ruff on 03-01-2025 MCH (RBC) [Entitic mass] 29.2 pg 27.0-32.0 [facility] Mean corpuscular hemoglobin concentration (MCHC) determinationOrdered By: Nel Ruff on 03-01-2025 MCHC (RBC) [Mass/Vol] 33.7 g/dL 32-36 [facility] Mean platelet volume determi nationOrdered By: Nel Ruff on 03-01-2025 Platelet mean volume (Bld) [Entitic vol] 10.0 fL 6.2-12.0 [facility] Monocyte percentageOrdered B y: Nel Ruff on 03-01-2025 Monocytes/100 WBC (Bld) 8.4 % 0-10 [facility] NATERAon 03-01-2025 NATURA SEE SCANNED REPORT Normal [facility] Comment on above: Order Comment: Comme nts: elects NIPT with gender Carrier testing Performed By: #### L 3890.6006, L100.0100, L501.0250, L509.8002 #### [facility] [address] [place] [address]. [place], [address] Neutrophil percentageOrdered By: Nel Ruff on 03-01-2025 Neutrophils/100 WBC (Bld) 66.4 % 47-70 [facility] No Panel InformationOrdered By: Nel Ruff on 03-01-2025 HIV (1&2) Antibody Non-Reactive Nonreactive [facility] Comment on above: Non-ReactiveReactive Repeatedly reactive samples must be confirmed according to CDC recommended confirmatory algorithms. The subresults for either HIVAG or AHIV can be used as an aid in the selection of the confirmation algorithm for reactive samples.Send out specimens with Reactive results to [facility] for confirmation.Order the HIV antibody detection and differentiation: #[id number] Nucleated red blood cell per centageOrdered By: Nel Ruff on 03-01-2025 Nucleated RBC/100 WBC (Bld) [Ratio] 0 % 0-5 [facility] Warehouse Administrator Office Visit Reporton 03-01-2025 Warehouse Administrator Office Visit Report [facility]'s [address], [address] [place] [address] OFFICE VISIT Date of Service: 03/01/25 MR#: [id number] Acct: [id number] Name: DRAKE PETTY Rep #: [id number] : 1995 Provider: Dr. Emmanuelle Bello DO Age/Sex: 30/F Location: [facility] Status: Signed Intake Vital Signs 01/02/25 08:40 01/18/25 08:47 03/01/25 13:22 Height 5 ft 4 in 5 ft 4 in 5 ft 4 in Weight: 166 lb BMI 28.5 BP 111/70 Intake Visit Reasons: 11 wk OB Newspaper Writer Required: No Is patient in pain?: No [...] 1 current occupational status: employed current occupation: FT-[employer] current occupational exposures/hazards: No pets and animals: [...] 5-6 times per week duration: 45-60 minutes/day carolann/jewish: None seatbelt use: always do you feel [...] (+4 lb) (more content not included)... Normal [facility] Platelet countOrdered By: Khalif Ruff on 03-01-2025 Platelets (Bld) [#/Vol] 258 10*3/uL 150-450 [facility] RBC Auto (Bld) [#/Vol]Ordere d By: Nel Ruff on 03-01-2025 RBC (Bld) [#/Vol] 4.32 10*6/uL 4.2-5.4 [facility] Syphilis Antibodieson 2024 Syphilis Abs Non-Reactive Normal Nonreactive [facility] Comment on above: Performed By: #### L 3890.6006, L100.0100, L501.0250, L509.8002 #### [facility] [address] [place], [address] Type AND Screenon 03-01-2025 Ab SCREEN GEL Negative Normal [facility] Comment on above: Order Comment: PN Performed By: #### L 3890.6006, L100.0100, L501.0250, L509.8002 #### [facility] [address] [place], [address] White blood cell (WBC) count Ordered By: Nel Ruff on 03-01-2025 WBC (Bld) [#/Vol] 7.9 10*3/uL 4.4-11.0 [facility] Chlamydia/GC NELLY aptimaon CHLAMY,NUC ACID Negative Normal Negative [facility] Comment on above: Performed By: #### L 3890.6006, L100.0100, L501.0250, L509.8002 #### [facility] [address] [place], [address] GC BY NUC ACID Negative Normal Negative [facility] Comment on above: Result Comment: Perf ormed at: =G - [facility] [place] [id number] Library Monitor: Helena Lieberman MD, Phone: [phone] Performed By: #### L 3890.6006, L100.0100, L501.0250, L509.8002 #### [facility] [address] [place], [address] Urine Cultureon 01-19-2025 URC Below infection level. Mixed Gram Positive Organisms [place] Count 1000-10,000 MIXC Mixed contaminants. Submit a new specimen if indicated. Normal [facility] Comment on above: Performed By: #### L 3890.6006, L100.0100, L501.0250, L509.8002 #### [facility] [address] [place], [address] Chlamydia trachomatis rRNA d etection by probe and target amplification methodOrdered By: Nel Ruff on 01-18-2025 C. trachomatis rRNA NELLY+probe Ql (Unsp spec) Negative Negative [facility] Neisseria gonorrhoeae nuclei c acid detection by amplified probe techniqueOrdered By: Nel Ruff on 01-18-2025 N. gonorrhoeae DNA NELLY+probe Ql (Unsp spec) Negative Negative [facility] Comment on above: Performed at: =[address] [id number] Director: Helena Lieberman MD, Phone: [phone] Warehouse Administrator Office Visit Reporton 01-18-2025 Warehouse Administrator Office Visit Report [facility] [address], [address] [place] [address] OFFICE VISIT Date of Service: 01/18/25 MR#: [id number] Acct: [id number] Name: DRAKE PETTY Rep #: [id number] : 1995 Provider: BRET Gay ams Age/Sex: 29/F Location: [facility] Status: Signed Intake Vital Signs 01/02/25 08:40 01/18/25 08:47 Height 5 ft 4 in 5 ft 4 in Weight: 162 lb 2 oz BMI 27.8 BP 122/79 H Intake Visit Reasons: NOB LMP 11/09 Chief Complaint: New OB Newspaper Writer Required: No Is patient in pain?: No [...] 1 current occupational status: employed current occupation: FT-[employer] current occupational exposures/hazards: No pets and animals: [...] 5-6 times per week duration: 45-60 minutes/day carolann/jewish: None seatbelt use: always do you feel [...] next vis (more content not included)... Normal [facility] Urine cultureOrdered By: Rajesh Ruff on 01-18-2025 Bacteria identified Cx Nom (U) Positive Abnormal [facility] Laboratory - Chemistry and C hemistry - challengeOrdered By: Emma Valenzuela on 01-02-2025 HCG ( test) Ql (U) Positive [facility] Warehouse Administrator Office Visit Reporton 01-02-2025 Warehouse Administrator Office Visit Report [facility] [address], [address] [place] [address] OFFICE VISIT Date of Service: 01/02/25 MR#: [id number] Acct: [id number] Name: DRAKE PETTY Rep #: [id number] : 1995 Provider: OLY hoffmna Age/Sex: 29/F Location: [facility] Status: Signed Intake Vital Signs 01/02/25 08:40 Height 5 ft 4 in Weight: 162 lb BMI 27.8 Intake Visit Reasons: Confirmation/Establ [facility] Newspaper Writer Required: No Is patient in pain?: No [...] 01/02/25 @ 11:10 by Emma Valenzuela NP, CLIENT MANAGER-C) Depression with anxiety PCOS (polycystic ovarian [...] scheduled. 01/02/25 1110 Date Emma Valenzuela NP CLIENT MANAGER-C Cosigner Signature: Date (if applicable) CC: Normal [facility] Beta HCG ( test) Ql on 12-26-2024 Interpretation and review of laboratory results Abnormal [facility] FASTING:UNKNOWN FASTING: UNKNOWN [facility] hCG, Serum, Qualitativeon Beta HCG ( test) Ql Positive Abnormal See Note: [facility] Comment on above: Reference Range: Reference Range Non-: Negative : Positive CBC WITH AUTO DIFFERENTIALon 06-15-2024 AUTO NRBC 0.0 % Normal [facility] Comment on above: Performed By: #### L [id number] #### LAB [address] [place] [address] Guerrero Barnett M.D. [id number] AUTO NRBC ABS COUNT 0.00 K/mcL Normal 0.00-0.00 [facility] Comment on above: Performed By: #### L [id number] #### LAB [address] [place] [address] Guerrero Barnett M.D. [id number] BASOPHILS ABSOLUTE COUNT 0.05 K/mcL Normal 0.00-0.30 [facility] Comment on above: Performed By: #### L [id number] #### LAB [address] [place] [address] Guerrero Barnett M.D. [id number] Basophils/100 WBC (Bld) 0.8 % Normal [facility] Comment on above: Performed By: #### L [id number] #### LAB [address] [place] [address] Guerrero Barnett M.D. [id number] Eosinophils (Bld) [#/Vol] 0.18 10*3/uL Normal 0.00-0.50 [facility] Comment on above: Performed By: #### L [id number] #### LAB [address] [place] [address] Guerrero Barnett M.D. [id number] Eosinophils/100 WBC (Bld) 2.8 % [facility] Comment on above: Performed By: #### L [id number] #### LAB [address] [address] Guerrero Barnett M.D. [id number] Erythrocyte distribution width (RBC) [Ratio] 12.8 % Normal 11.6-14.8 [facility] Comment on above: Performed By: #### L [id number] #### LAB [address] [address] Guerrero Barnett M.D. [id number] Hematocrit (Bld) [Volume fraction] 40.7 % Normal 36.0-46.0 [facility] Comment on above: Performed By: #### L [id number] #### LAB [address] [address] uGerrero Barnett M.D. [id number] Hemoglobin (Bld) [Mass/Vol] 13.2 g/dL Normal 12.0-16.0 [facility] Comment on above: Performed By: #### L [id number] #### LAB [address] [address] Guerrero Barnett M.D. [id number] IG ABSOLUTE 0.02 K/mcL Normal 0.00-0.30 [facility] Comment on above: Performed By: #### L [id number] #### LAB [address] [address] Guerrero Barnett M.D. [id number] IG PERCENT 0.30 % Normal [facility] Comment on above: Result Comment: The IG parameter is the percentage of metamyelocytes, myelocytes and promyelocytes. An immature granulocyte count (IG) of 1% or more suggests the possibility of infection, an IG count of 3% is very likely related to an infection. Performed By: #### L [id number] #### LAB [address] [place] [address] Guerrero Barnett M.D. [id number] Lymphocytes (Bld) [#/Vol] 2.53 10*3/uL Normal 0.90-4.00 [facility] Comment on above: Performed By: #### L [id number] #### LAB [address] [place] [address] Guerrero Barnett M.D. [id number] Lymphocytes/100 WBC (Bld) 38.7 % Normal [facility] Comment on above: Performed By: #### L [id number] #### LAB [address] [address] Guerrero Barnett M.D. [id number] MCH (RBC) [Entitic mass] 29.0 pg Normal 26.0-34.0 [facility] Comment on above: Performed By: #### L [id number] #### MH LAB [address] [address] Guerrero Barnett M.D. [id number] MCV (RBC) [Entitic vol] 89.5 fL Normal 80.0-100.0 [facility] Comment on above: Performed By: #### L [id number] #### LAB [address] [address] Guerrero Barnett M.D. [id number] MEAN CORPUSCULAR HEMOGLOBIN CONC 32.4 g/dL Normal 31.0-37.0 [facility] Comment on above: Performed By: #### L [id number] #### LAB [address] [address] Guerrero Barnett M.D. [id number] Monocytes (Bld) [#/Vol] 0.64 10*3/uL Normal 0.30-0.90 [facility] Comment on above: Performed By: #### L [id number] #### LAB [address] [address] Guerrero Barnett M.D. [id number] Monocytes/100 WBC (Bld) 9.8 % Normal [facility] Comment on above: Performed By: #### L [id number] #### LAB [address] [address] Guerrero Barnett M.D. [id number] NEUTROPHILS ABSOLUTE COUNT 3.11 K/mcL Normal 1.70-7.00 [facility] Comment on above: Performed By: #### L [id number] #### LAB [address] [address] Guerrero Barnett M.D. [id number] Neutrophils/100 WBC (Bld) 47.6 % Normal [facility] Comment on above: Performed By: #### L [id number] #### MH LAB [address] [address] Guerrero Barnett M.D. [id number] Platelet mean volume (Bld) [Entitic vol] 9.9 fL Normal 9.4-12.4 [facility] Comment on above: Performed By: #### L [id number] #### MH LAB [address] [address] Guerrero Barnett M.D. [id number] Platelets (Bld) [#/Vol] 366 10*3/uL Normal 150-400 [facility] Comment on above: Performed By: #### L [id number] #### MH LAB [address] [address] Guerrero Barnett M.D. [id number] RBC (Bld) [#/Vol] 4.55 10*6/uL Normal 4.00-5.20 [facility] Comment on above: Performed By: #### L [id number] #### MH LAB [address] [address] Guerrero Barnett M.D. [id number] WBC (Bld) [#/Vol] 6.53 10*3/uL Normal 4.50-11.00 [facility] Comment on above: Performed By: #### L [id number] #### MH LAB [address] [address] Guerrero Barnett M.D. [id number] COMPREHENSIVE METABOLIC PANE Keo 06-15-2024 Albumin [Mass/Vol] 4.6 g/dL Normal 3.2-5.2 [facility] [place] [facility] Comment on above: Order Comment: [facility] has implemented the eGFR calculation approach that does not have a coefficient for race that conforms to the NKF-ASN Task Force Recommendations. Performed By: #### 4 [id number] #### MH LAB [address] [address] Guerrero Barnett M.D. [id number] ALP [Catalytic activity/Vol] 87 U/L Normal 40-140 [facility] Comment on above: Order Comment: [facility] has implemented the eGFR calculation approach that does not have a coefficient for race that conforms to the NKF-ASN Task Force Recommendations. Performed By: #### 4 [id number] #### LAB [address] [address] Guerrero Barnett M.D. [id number] ALT [Catalytic activity/Vol] 34 U/L Normal 0-35 U/L [facility] Comment on above: Order Comment: [facility] has implemented the eGFR calculation approach that does not have a coefficient for race that conforms to the NKF-ASN Task Force Recommendations. Performed By: #### 4 [id number] #### LAB [address] [address] Guerrero Barnett M.D. [id number] Anion gap [Moles/Vol] 16 mmol/L Normal 10-20 [facility] Comment on above: Order Comment: [facility] has implemented the eGFR calculation approach that does not have a coefficient for race that conforms to the NKF-ASN Task Force Recommendations. Performed By: #### 4 6126 #### LAB [address] [address] Guerrero Barnett M.D. [id number] AST [Catalytic activity/Vol] 26 U/L Normal 0-35 U/L [facility] Comment on above: Order Comment: [facility] has implemented the eGFR calculation approach that does not have a coefficient for race that conforms to the NKF-ASN Task Force Recommendations. Performed By: #### 4 [id number] #### LAB [address] [address] Guerrero Barnett M.D. [id number] Bilirubin [Mass/Vol] 0.3 mg/dL Normal 0.0-1.3 [facility] Comment on above: Order Comment: [facility] has implemented the eGFR calculation approach that does not have a coefficient for race that conforms to the NKF-ASN Task Force Recommendations. Performed By: #### 4 6126 #### LAB [address] [address] Guerrero Barnett M.D. [id number] Calcium [Mass/Vol] 9.5 mg/dL Normal 8.4-10.2 [facility] [place] [facility] Comment on above: Order Comment: [facility] has implemented the eGFR calculation approach that does not have a coefficient for race that conforms to the NKF-ASN Task Force Recommendations. Performed By: #### 4 6126 #### LAB [address] [address] Guerrero Barnett M.D. [id number] Chloride [Moles/Vol] 103 mmol/L Normal 98-108 [facility] Comment on above: Order Comment: [facility] has implemented the eGFR calculation approach that does not have a coefficient for race that conforms to the NKF-ASN Task Force Recommendations. Performed By: #### 4 6126 #### LAB [address] [address] Guerrero Barnett M.D. [id number] Creatinine [Mass/Vol] 0.64 mg/dL Normal 0.40-1.10 [facility] Comment on above: Order Comment: [facility] has implemented the eGFR calculation approach that does not have a coefficient for race that conforms to the NKF-ASN Task Force Recommendations. Performed By: #### 4 6126 #### LAB [address] [address] Guerrero Barnett M.D. [id number] EGFR 123 mL/min/1.73 m2 Normal >=60 [facility] [place] [facility] Comment on above: Order Comment: [facility] has implemented the eGFR calculation approach that does not have a coefficient for race that conforms to the NKF-ASN Task Force Recommendations. Result Comment: Taty mated GFR was calculated using the 2020 CKD-EPI creatinine equation. Performed By: #### 4 6126 #### LAB [address] [address] Guerrero Barnett M.D. [id number] Glucose [Mass/Vol] 80 mg/dL Normal 65-99 [facility] [place] [facility] Comment on above: Order Comment: [facility] has implemented the eGFR calculation approach that does not have a coefficient for race that conforms to the NKF-ASN Task Force Recommendations. Performed By: #### 4 6126 #### LAB [address] [address] Guerrero Barnett M.D. [id number] HCO3 (Bld) [Moles/Vol] 27 mmol/L Normal 21-32 [facility] Comment on above: Order Comment: [facility] has implemented the eGFR calculation approach that does not have a coefficient for race that conforms to the NKF-ASN Task Force Recommendations. Performed By: #### 4 6126 #### LAB [address] [address] Guerrero Barnett M.D. [id number] Potassium [Moles/Vol] 4.5 mmol/L Normal 3.5-5.1 [facility] Comment on above: Order Comment: [facility] has implemented the eGFR calculation approach that does not have a coefficient for race that conforms to the NKF-ASN Task Force Recommendations. Performed By: #### 4 6126 #### LAB [address] [address] Guerrero Barnett M.D. [id number] Protein [Mass/Vol] 7.5 g/dL Normal 6.0-8.0 [facility] [place] [facility] Comment on above: Order Comment: [facility] has implemented the eGFR calculation approach that does not have a coefficient for race that conforms to the NKF-ASN Task Force Recommendations. Performed By: #### 4 6126 #### LAB [address] [address] Guerrero Barnett M.D. [id number] Sodium [Moles/Vol] 141 mmol/L Normal 135-145 [facility] [place] [facility] Comment on above: Order Comment: [facility] has implemented the eGFR calculation approach that does not have a coefficient for race that conforms to the NKF-ASN Task Force Recommendations. Performed By: #### 4 6126 #### LAB [address] [place], [place] [address] Guerrero Barnett M.D. [id number] Urea nitrogen [Mass/Vol] 9 mg/dL Normal 8-25 [facility] Comment on above: Order Comment: [facility] has implemented the eGFR calculation approach that does not have a coefficient for race that conforms to the NKF-ASN Task Force Recommendations. Performed By: #### 4 6126 #### MH LAB [address] [address] Guerrero Barnett M.D. [id number] Urea nitrogen/Creatinine [Mass ratio] 14.1 mg/mg Normal 10.0-20.0 [facility] Comment on above: Order Comment: [facility] has implemented the eGFR calculation approach that does not have a coefficient for race that conforms to the NKF-ASN Task Force Recommendations. Performed By: #### 4 6126 #### LAB [address] [address] Guerrero Barnett M.D. [id number] HEMOGLOBIN A1Con 06-15-2024 Glucose [Mass/Vol] 111 mg/dL Normal 74-114 [facility] [place] [facility] Comment on above: Performed By: #### 4 8202 #### MH LAB [address] [id number] Guerrero Barnett M.D. [id number] HbA1c (Bld) [Mass fraction] 5.5 % Normal 4.2-5.6 [facility] Comment on above: Performed By: #### 4 8202 #### MH LAB [address] [place], [place] [address] Guerrero Barnett M.D. [id number] LIPID PANELon 06-15-2024 Cholesterol [Mass/Vol] 200 mg/dL High 100-199 [facility] Comment on above: Performed By: #### 4 6087 #### MH LAB [address] [id number] Guerrero Barnett M.D. [id number] Cholesterol in HDL [Mass/Vol] 49 mg/dL Normal 40-59 [facility] Comment on above: Performed By: #### 4 6087 #### LAB [address] [place], [place] [address] Guerrero Barnett M.D. [id number] Cholesterol.total/Choles terol in HDL [Mass ratio] 4.1 {ratio} Normal [facility] Comment on above: Result Comment: Fema le Cholesterol/HDL Ratio: Average risk: 4.4 1/2 average risk: 3.3 2 x average risk: 7.1 Performed By: #### 4 6087 #### LAB [address] [place], [place] [address] Guerrero Barnett M.D. [id number] LDL CHOLESTEROL CALCULATED 121 mg/dL Normal 10-130 [facility] Comment on above: Result Comment: [facility] Cholesterol Education Program Guidelines: LDL Cholesterol Optimal: <100 mg/dL Near Optimal/above Optimal: 100-129 mg/dL Borderline High: 130-159 mg/dL High: 160-189 mg/dL Very High: greater than or equal to 190 mg/dL Performed By: #### 4 6087 #### LAB [address] [address] Guerrero Barnett M.D. [id number] NON HDL CHOL 151 mg/dL Normal [facility] Comment on above: Result Comment: [facility] Cholesterol Education Program Guidelines: NON HDL Cholesterol Desirable: <130 mg/dL Borderline High: 130-159 mg/dL High: 160-189 mg/dL Very High: > or = 190 mg/dL Performed By: #### 4 6087 #### LAB [address] [place], [place] [address] Guerrero Barnett M.D. [id number] Triglyceride [Mass/Vol] 150 mg/dL Normal 30-150 [facility] Comment on above: Performed By: #### 4 6087 #### MH LAB [address] [place], [place] [address] Guerrero Barnett M.D. [id number] T4, FREEon 06-15-2024 Free T4 [Mass/Vol] 1.4 ng/dL Normal 0.7-1.7 [facility] [place] [facility] Comment on above: Performed By: #### 4 6567 #### LAB [address] [id number] Guerrero Barnett M.D. [id number] TSHon 06-15-2024 TSH Qn 0.94 m[IU]/L Normal 0.27-4.20 [facility] Comment on above: Performed By: #### 4 6613 #### LAB [address] [address] Guerrero Barnett M.D. [id number] VITAMIN D, TOTAL, 25-[place]on VITAMIN D 25-HYDROXY 42 ng/mL Normal 20-100 [facility] Comment on above: Order Comment: Vitam in D Expected Values Deficiency: 0-10 Insufficiency: 10-20 Sufficient: 20-100 Toxicity: >100 Performed By: #### 4 6678 #### LAB [address] [address] Guerrero Barnett M.D. [id number] B12/FOLATEon 04-25-2024 Cobalamin (Vitamin B12) [Mass/Vol] 583 pg/mL Normal 232-1245 [facility] Comment on above: Performed By: #### 4 6967 #### LAB [address] [address] Guerrero Barnett M.D. [id number] FOLATE > High 3.1-17.5 [facility] Comment on above: Result Comment: Defi cient <2.2 Borderline 2.2 - 3.0 Excessive >17.5 Performed By: #### 4 6967 #### LAB [address] [address] Guerrero Barnett M.D. [id number] CBC WITH AUTO DIFFERENTIALon 04-25-2024 AUTO NRBC 0.0 % Normal [facility] Comment on above: Performed By: #### L [id number] #### MH LAB [address] [address] Guerrero Barnett M.D. [id number] AUTO NRBC ABS COUNT 0.00 K/mcL Normal 0.00-0.00 [facility] Comment on above: Performed By: #### L [id number] #### LAB [address] [address] Guerrero Barnett M.D. [id number] BASOPHILS ABSOLUTE COUNT 0.06 K/mcL Normal 0.00-0.30 [facility] Comment on above: Performed By: #### L [id number] #### LAB [address] [address] Guerrero Barnett M.D. [id number] Basophils/100 WBC (Bld) 0.8 % Normal [facility] Comment on above: Performed By: #### L [id number] #### LAB [address] [address] Guerrero Barnett M.D. [id number] Eosinophils (Bld) [#/Vol] 0.16 10*3/uL Normal 0.00-0.50 [facility] Comment on above: Performed By: #### L [id number] #### LAB [address] [address] Guerrero Barnett M.D. [id number] Eosinophils/100 WBC (Bld) 2.1 % Normal [facility] Comment on above: Performed By: #### L [id number] #### LAB [address] [address] Guerrero Barnett M.D. [id number] Erythrocyte distribution width (RBC) [Ratio] 13.2 % Normal 11.6-14.8 [facility] Comment on above: Performed By: #### L [id number] #### LAB [address] [address] Guerrero Barnett M.D. [id number] Hematocrit (Bld) [Volume fraction] 39.8 % Normal 36.0-46.0 [facility] Comment on above: Performed By: #### L [id number] #### LAB [address] [place] [address] Guerrero Barnett M.D. [id number] Hemoglobin (Bld) [Mass/Vol] 13.0 g/dL Normal 12.0-16.0 [facility] Comment on above: Performed By: #### L [id number] #### LAB [address] [address] Guerrero Barnett M.D. [id number] IG ABSOLUTE 0.04 K/mcL Normal 0.00-0.30 [facility] Comment on above: Performed By: #### L [id number] #### LAB [address] [address] Guerrero Barnett M.D. [id number] IG PERCENT 0.50 % [facility] Comment on above: Result Comment: The IG parameter is the percentage of metamyelocytes, myelocytes and promyelocytes. An immature granulocyte count (IG) of 1% or more suggests the possibility of infection, an IG count of 3% is very likely related to an infection. Performed By: #### L [id number] #### LAB [address] [address] Guerrero Barnett M.D. [id number] Lymphocytes (Bld) [#/Vol] 2.69 10*3/uL Normal 0.90-4.00 [facility] Comment on above: Performed By: #### L [id number] #### LAB [address] [address] Guerrero Barnett M.D. [id number] Lymphocytes/100 WBC (Bld) 34.7 % [facility] Comment on above: Performed By: #### L [id number] #### LAB [address] [address] Guerrero Barnett M.D. [id number] MCH (RBC) [Entitic mass] 29.3 pg Normal 26.0-34.0 [facility] Comment on above: Performed By: #### L [id number] #### LAB [address] [address] Guerrero Barnett M.D. [id number] MCV (RBC) [Entitic vol] 89.8 fL Normal 80.0-100.0 [facility] Comment on above: Performed By: #### L [id number] #### LAB [address] [address] Guerrero Barnett M.D. [id number] MEAN CORPUSCULAR HEMOGLOBIN CONC 32.7 g/dL Normal 31.0-37.0 [facility] Comment on above: Performed By: #### L [id number] #### LAB [address] [address] Guerrero Barnett M.D. [id number] Monocytes (Bld) [#/Vol] 0.67 10*3/uL Normal 0.30-0.90 [facility] Comment on above: Performed By: #### L [id number] #### LAB [address] [address] Guerrero Barnett M.D. [id number] Monocytes/100 WBC (Bld) 8.6 % Normal [facility] Comment on above: Performed By: #### L [id number] #### LAB [address] [address] Guerrero Barnett M.D. [id number] NEUTROPHILS ABSOLUTE COUNT 4.14 K/mcL Normal 1.70-7.00 [facility] Comment on above: Performed By: #### L [id number] #### LAB [address] [address] Guerrero Barnett M.D. [id number] Neutrophils/100 WBC (Bld) 53.3 % Normal [facility] Comment on above: Performed By: #### L [id number] #### LAB [address] [address] Guerrero Barnett M.D. [id number] Platelet mean volume (Bld) [Entitic vol] 9.6 fL Normal 9.4-12.4 [facility] Comment on above: Performed By: #### L [id number] #### LAB [address] [place] [address] Guerrero Barnett M.D. [id number] Platelets (Bld) [#/Vol] 353 10*3/uL Normal 150-400 [facility] Comment on above: Performed By: #### L [id number] #### MH LAB [address] [id number] Guerrero Barnett M.D. [id number] RBC (Bld) [#/Vol] 4.43 10*6/uL Normal 4.00-5.20 [facility] Comment on above: Performed By: #### L [id number] #### MH LAB [address] [id number] Guerrero Barnett M.D. [id number] WBC (Bld) [#/Vol] 7.76 10*3/uL Normal 4.50-11.00 [facility] Comment on above: Performed By: #### L [id number] #### LAB [address] [address] Guerrero Barnett M.D. [id number] IRON STUDY WITH FERRITINon 0 - Ferritin [Mass/Vol] 94 ng/mL Normal 13-150 [facility] Comment on above: Performed By: #### 4 7645 #### MH LAB [address] [address] Guerrero Barnett M.D. [id number] Iron [Mass/Vol] 85 ug/dL Normal 30-160 [facility] Comment on above: Performed By: #### 4 7645 #### LAB [address] [address] Guerrero Barnett M.D. [id number] IRON SATURATION 22 % Normal 20-50 [facility] Comment on above: Performed By: #### 4 7645 #### MH LAB [address] [address] Guerrero Barnett M.D. [id number] TIBC (CALCULATED) 388 mcg/dL Normal 225-430 [facility] Comment on above: Performed By: #### 4 7645 #### MH LAB [address] [address] Guerrero Barnett M.D. [id number] 25 0H VITAMIN D LEVELon 04-0 25 0H VITAMIN D LEVEL 59.1 NG/ML Normal [facility] Comment on above: Result Comment: DEFICIENT <20 NG/ML INSUFFICIENT 20-<30 NG/ML SUFFICIENT 30-100 NG/ML POTENTIAL TOXICITY >100 NG/ML Performed By: #### F X, CMPF, LIP2, ACBC, TSH2 #### Testing performed at [address] [address] CBCon 12-13-2023 ABSOLUTE BAS 0.0 10*3/uL Normal 0.0-0.2 [facility] Comment on above: Performed By: #### F X, CMPF, LIP2, ACBC, TSH2 #### Testing performed at [address] [address] ABSOLUTE EOS 0.1 10*3/uL Normal 0.0-0.7 [facility] Comment on above: Performed By: #### F X, CMPF, LIP2, ACBC, TSH2 #### Testing performed at [address] [address] ABSOLUTE NEUTROPHIL COUNT 4.2 10*3/uL Normal 1.4-6.5 [facility] Comment on above: Performed By: #### F X, CMPF, LIP2, ACBC, TSH2 #### Testing performed at [address] [address] Basophils/100 WBC (Bld) 0.2 % Normal 0.0-2.0 [facility] Comment on above: Performed By: #### F X, CMPF, LIP2, ACBC, TSH2 #### Testing performed at [address] [address] DTYPE AUTO DIFF Normal [facility] Comment on above: Performed By: #### F X, CMPF, LIP2, ACBC, TSH2 #### Testing performed at [address] [address] Eosinophils/100 WBC (Bld) 0.8 % Normal 0.0-11.0 [facility] Comment on above: Performed By: #### F X, CMPF, LIP2, ACBC, TSH2 #### Testing performed at [address] [address] Lymphocytes (Bld) [#/Vol] 2.2 10*3/uL Normal 1.2-3.4 [facility] Comment on above: Performed By: #### F X, CMPF, LIP2, ACBC, TSH2 #### Testing performed at [address] [address] Lymphocytes/100 WBC (Bld) 31.4 % Normal 20.0-55.0 [facility] Comment on above: Performed By: #### F X, CMPF, LIP2, ACBC, TSH2 #### Testing performed at [address] [address] Monocytes (Bld) [#/Vol] 0.5 10*3/uL Normal 0.0-0.7 [facility] Comment on above: Performed By: #### F X, CMPF, LIP2, ACBC, TSH2 #### Testing performed at [address] [address] Monocytes/100 WBC (Bld) 7.1 % Normal 0.0-10.0 [facility] Comment on above: Performed By: #### F X, CMPF, LIP2, ACBC, TSH2 #### Testing performed at [address] [address] Neutrophils/100 WBC (Bld) 60.5 % Normal 37.0-75.0 [facility] Comment on above: Performed By: #### F X, CMPF, LIP2, ACBC, TSH2 #### Testing performed at [address] [address] Erythrocyte distribution width (RBC) [Ratio] 13.8 % Normal 11.5-14.5 [facility] Comment on above: Performed By: #### F X, CMPF, LIP2, ACBC, TSH2 #### Testing performed at [address] [address] Hematocrit (Bld) [Volume fraction] 39.4 % Normal 36.0-48.0 [facility] Comment on above: Performed By: #### F X, CMPF, LIP2, ACBC, TSH2 #### Testing performed at [address] [address] Hemoglobin (Bld) [Mass/Vol] 13.5 g/dL Normal 12.0-16.0 [facility] Comment on above: Performed By: #### F X, CMPF, LIP2, ACBC, TSH2 #### Testing performed at [address] [address] MCH (RBC) [Entitic mass] 29.2 pg Normal 26.0-35.0 [facility] Comment on above: Performed By: #### F X, CMPF, LIP2, ACBC, TSH2 #### Testing performed at [address] [address] MCHC (RBC) [Mass/Vol] 34.2 g/dL Normal 27.0-37.0 [facility] Comment on above: Performed By: #### F X, CMPF, LIP2, ACBC, TSH2 #### Testing performed at [address] [address] MCV (RBC) [Entitic vol] 85.4 fL Normal 80.0-100.0 [facility] Comment on above: Performed By: #### F X, CMPF, LIP2, ACBC, TSH2 #### Testing performed at [address] [address] Platelet mean volume (Bld) [Entitic vol] 8.3 fL Normal 7.4-11.0 [facility] Comment on above: Performed By: #### F X, CMPF, LIP2, ACBC, TSH2 #### Testing performed at [address] [address] Platelets (Bld) [#/Vol] 270 10*3/uL Normal 130-400 [facility] Comment on above: Performed By: #### F X, CMPF, LIP2, ACBC, TSH2 #### Testing performed at [address] [address] RBC (Bld) [#/Vol] 4.61 10*6/uL Normal 4.0-5.4 [facility] Comment on above: Performed By: #### F X, CMPF, LIP2, ACBC, TSH2 #### Testing performed at [address] [address] WBC (Bld) [#/Vol] 7.0 10*3/uL Normal 3.6-11.0 [facility] Comment on above: Performed By: #### F X, CMPF, LIP2, ACBC, TSH2 #### Testing performed at [address] [address] CMP FASTINGon 12-13-2023 A:G RATIO 2.0 RATIO Normal [facility] Comment on above: Performed By: #### F X, CMPF, LIP2, ACBC, TSH2 #### Testing performed at [address] [address] ALBUMIN 5.0 G/dl Normal 3.5-5.0 [facility] Comment on above: Performed By: #### F X, CMPF, LIP2, ACBC, TSH2 #### Testing performed at [address] [address] ALP [Catalytic activity/Vol] 83 U/L Normal 38-126 [facility] Comment on above: Performed By: #### F X, CMPF, LIP2, ACBC, TSH2 #### Testing performed at [address] [address] ALT [Catalytic activity/Vol] 45 U/L High <35 [facility] Comment on above: Performed By: #### F X, CMPF, LIP2, ACBC, TSH2 #### Testing performed at [address] [address] AST [Catalytic activity/Vol] 33 U/L Normal 14-36 [facility] Comment on above: Performed By: #### F X, CMPF, LIP2, ACBC, TSH2 #### Testing performed at [address] [address] Bilirubin [Mass/Vol] 0.4 mg/dL Normal 0.2-1.3 [facility] Comment on above: Performed By: #### F X, CMPF, LIP2, ACBC, TSH2 #### Testing performed at [address] [address] Calcium [Mass/Vol] 9.0 mg/dL Normal 8.4-10.2 [facility] Comment on above: Performed By: #### F X, CMPF, LIP2, ACBC, TSH2 #### Testing performed at [address] [address] Chloride [Moles/Vol] 105 mmol/L Normal 98-107 [facility] Comment on above: Result Comment: Logan lenz note: Triglyceride levels of 600mg/dL or higher may positively bias chloride results by approximately 2.1 mmol Performed By: #### F X, CMPF, LIP2, ACBC, TSH2 #### [place] [address] CO2 [Moles/Vol] 25 mmol/L Normal 22-30 [facility] Comment on above: Performed By: #### F X, CMPF, LIP2, ACBC, TSH2 #### [place] [address] Creatinine [Mass/Vol] 0.60 mg/dL Low 0.70-1.20 [facility] Comment on above: Performed By: #### F X, CMPF, LIP2, ACBC, TSH2 #### Testing performed at [place] [id number] EST. GFR, 153 ml/min/1.73sq.m [facility] Comment on above: Performed By: #### F X, CMPF, LIP2, ACBC, TSH2 #### Testing performed at [place] [id number] EST. GFR,Non 127 ml/min/1.73sq.m [facility] Comment on above: Performed By: #### F X, CMPF, LIP2, ACBC, TSH2 #### [place] [address] GFR Information Average GFR for 20-29 years old = 116. Normal [facility] Comment on above: Result Comment: Crew Chief iram Kidney disease, GFR = <60. Kidney failure, GFR = <15. The GFR estimate is not adjusted for extreme body surface area or acute process, nor has it been validated for women or ethnic groups other than and . Performed By: #### F X, CMPF, LIP2, ACBC, TSH2 #### Testing performed at [address] [address] Glucose [Mass/Vol] 108 mg/dL High 70-100 [facility] Comment on above: Result Comment: NORMAL <100 mg/dL PREDIABETES 101-126 mg/dL DIABETES 126 mg/dL or higher Performed By: #### F X, CMPF, LIP2, ACBC, TSH2 #### Testing performed at [address] [address] Potassium [Moles/Vol] 4.1 mmol/L Normal 3.5-5.1 [facility] Comment on above: Performed By: #### F X, CMPF, LIP2, ACBC, TSH2 #### Testing performed at [address] [address] Protein [Mass/Vol] 7.5 g/dL Normal 6.3-8.2 [facility] Comment on above: Performed By: #### F X, CMPF, LIP2, ACBC, TSH2 #### Testing performed at [address] [address] Sodium [Moles/Vol] 139 mmol/L Normal 137-145 [facility] Comment on above: Performed By: #### F X, CMPF, LIP2, ACBC, TSH2 #### Testing performed at [address] [address] Urea nitrogen [Mass/Vol] 10 mg/dL Normal 7-20 [facility] Comment on above: Performed By: #### F X, CMPF, LIP2, ACBC, TSH2 #### Testing performed at [address] [address] FAX REQUESTon 12-13-2023 FAX TO [id number] Normal [facility] Comment on above: Performed By: #### F X, CMPF, LIP2, ACBC, TSH2 #### Testing performed at [address] [address] FREE T4on 12-13-2023 Free T4 [Mass/Vol] 1.06 ng/dL Normal 0.78-2.19 [facility] Comment on above: Performed By: #### T 42, VITD #### Testing performed at [address] [address] HEMOGLOBIN A1Con 12-13-2023 Glucose [Mass/Vol] 108 mg/dL Normal [facility] Comment on above: Performed By: #### H A1CT #### Testing performed at [address] [address] HbA1c (Bld) [Mass fraction] 5.4 % Normal 0-6 [facility] Comment on above: Result Comment: NORMAL <5.7% PREDIABETES 5.7-6.4% DIABETES 6.5% OR HIGHER Performed By: #### H A1CT #### Testing performed at [address] [address] LIPID PROFILEon 12-13-2023 Cholesterol [Mass/Vol] 186 mg/dL Normal 107-217 [facility] Comment on above: Performed By: #### F X, CMPF, LIP2, ACBC, TSH2 #### Testing performed at [address] [address] Cholesterol in HDL [Mass/Vol] 40 mg/dL Normal 33-75 [facility] Comment on above: Performed By: #### F X, CMPF, LIP2, ACBC, TSH2 #### Testing performed at [address] [address] Cholesterol in LDL [Mass/Vol] 126 mg/dL High <100 [facility] Comment on above: Performed By: #### F X, CMPF, LIP2, ACBC, TSH2 #### Testing performed at [address] [address] Cholesterol in VLDL [Mass/Vol] 20 mg/dL Normal 5-25 [facility] Comment on above: Performed By: #### F X, CMPF, LIP2, ACBC, TSH2 #### Testing performed at [address] [address] Cholesterol.total/Choles terol in HDL [Mass ratio] 4.65 {ratio} Normal [facility] Comment on above: Result Comment: RISK TOTAL/HDL RATIO MEN WOMEN 1/2 AVERAGE 3.43 3.27 AVERAGE 4.97 4.44 2X AVERAGE 9.55 7.05 3X AVERAGE 23.99 11.04 Performed By: #### F X, CMPF, LIP2, ACBC, TSH2 #### Testing performed at [address] [address] Triglyceride [Mass/Vol] 101 mg/dL Normal 0-150 [facility] Comment on above: Performed By: #### F X, CMPF, LIP2, ACBC, TSH2 #### Testing performed at [address] [address] TSHon 12-13-2023 TSH 1.080 uIU/ML Normal 0.465-4.680 [facility] Comment on above: Performed By: #### F X, CMPF, LIP2, ACBC, TSH2 #### Testing performed at [address] [address] POCT INFLUENZA, A Bon 2023 FLUAV RNA NELLY+probe Ql (Unsp spec) Negative Negative, Not Tested, Invalid, Not Detected [facility] FLUBV RNA NELLY+probe Ql (Unsp spec) Negative Negative, Not Tested, Invalid, Not Detected [facility] Internal controls [facility] POCT RAPID STREP Aon 024 S. pyogenes Ag Ql (Throat) Negative (+/-) [facility] Internal controls [facility] THROAT CULTUREon 12-07-2023 Throat culture SPECIMEN DESCRIPTION THROAT SWAB CULTURE USUAL OROPHARYNGEAL RAJAN * Result Note: Testing performed at [place] [id number] * REPORT STATUS 12/09/2023 * Result Note: FINAL * [facility] Comment on above: Performed By: #### T HRC #### Testing performed at [address] [address] PAP IG,RFX HPV ASCUon 2023 . . Normal [facility] . Comment Normal [facility] Comment on above: Result Comment: (NOT E) The HPV DNA reflex criteria were not met with this specimen result therefore, no HPV testing was performed. Source.............Cervix;Endocervix LMP / Prev Treat...ITO=[id number] No. of containers..01 ThinPrep Vial DIAGNOSIS: Comment [facility] Comment on above: Result Comment: NEGA TIVE FOR INTRAEPITHELIAL LESION OR MALIGNANCY. NOTE: Comment [facility] Comment on above: Result Comment: (NOT E) The Pap smear is a screening test designed to aid in the detection of premalignant and malignant conditions of the uterine cervix. It is not a diagnostic procedure and should not be used as the sole means of detecting cervical cancer. Both false-positive and false-negative reports do occur. PERFORMED BY: Comment [facility] Comment on above: Result Comment: Yadira Palacio, Outsole Handler (ASCP) SPECIMEN ADEQUACY: Comment [facility] Comment on above: Result Comment: (NOT E) Satisfactory for evaluation. Endocervical and/or squamous metaplastic cells (endocervical component) are present. TEST METHODOLOGY: Comment [facility] Comment on above: Result Comment: (NOT E) This liquid based ThinPrep(R) pap test was screened with the use of an image guided system. PERFORMED AT [facility] POCT INFLUENZA, A Bon 2023 FLUAV RNA NELLY+probe Ql (Unsp spec) Negative Negative, Not Tested, Invalid [facility] FLUBV RNA NELLY+probe Ql (Unsp spec) Negative Negative, Not Tested, Invalid [facility] Internal controls [facility] SARS-COV-2 RAPID AG (WIC)on 09-29-2023 SARS-CoV-2 (COVID-19) RNA NELLY+probe Ql (Unsp spec) Not detected Normal NOT DETECTED [facility] Comment on above: Result Comment: [...] LIP2, ACBC, TSH2 #### Testing performed at [address] [address] NARRATIVE This test was performed using lateral flow immunoassay and has been approved as Emergency Use Authorization (EUA). This test does not differentiate between SARS-CoV and SARS-CoV2. Normal [facility] Comment on above: Performed By: #### F X, CMPF, LIP2, ACBC, TSH2 #### Testing performed at [address] [address] SARS-CoV-2 (COVID-19) RNA NA A+probe Ql (Unsp spec)on 09-29-2023 NARRATIVE -1 This test was performed using lateral flow immunoassay and has been approved as Emergency Use Authorization (EUA). This test does not differentiate between SARS-CoV and SARS-CoV2. [facility] SARS-CoV-2 (COVID-19) Ag IA.rapid Ql (Resp) Not detected NOT DETECTED [facility] Comment on above: Negative results kalin [...] clinical signs and symptoms consistent with COVID-19. [facility] TESTOSTERONE, FREEon 023 FREE TESTOSTERONE 3.1 [facility] Comment on above: Result Comment: Refe rence range: 0.0 to 4.2 Unit: pg/mL [facility] Performed By: #### F X, CMPF, LIP2, ACBC, TSH2 #### Testing performed at [address] [address] DHEA-SULFATEon 07-10-2023 DHEA-SULFATE 632.0 [facility] Comment on above: Result Comment: Refe rence range: 84.8 to 378.0 Unit: ug/dL [facility] AT [facility] Performed By: #### F X, CMPF, LIP2, ACBC, TSH2 #### Testing performed at [address] [address] 25 0H VITAMIN D LEVELon 06-14 25 0H VITAMIN D LEVEL 61.1 NG/ML Normal [facility] Comment on above: Result Comment: DEFICIENT <20 NG/ML INSUFFICIENT 20-<30 NG/ML SUFFICIENT 30-100 NG/ML POTENTIAL TOXICITY >100 NG/ML Performed By: #### V ITD #### Testing performed at [address] [address] CBCon 07-09-2023 ABSOLUTE BAS 0.1 10*3/uL Normal 0.0-0.2 [facility] Comment on above: Performed By: #### F X, CMPF, LIP2, ACBC, TSH2 #### Testing performed at [address] [address] ABSOLUTE EOS 0.2 10*3/uL Normal 0.0-0.7 [facility] Comment on above: Performed By: #### F X, CMPF, LIP2, ACBC, TSH2 #### Testing performed at [address] [address] ABSOLUTE NEUTROPHIL COUNT 3.9 10*3/uL Normal 1.4-6.5 [facility] Comment on above: Performed By: #### F X, CMPF, LIP2, ACBC, TSH2 #### Testing performed at [address] [place] [address] Basophils/100 WBC (Bld) 1.1 % Normal 0.0-2.0 [facility] Comment on above: Performed By: #### F X, CMPF, LIP2, ACBC, TSH2 #### Testing performed at [address] [place] [address] DTYPE AUTO DIFF Normal [facility] Comment on above: Performed By: #### F X, CMPF, LIP2, ACBC, TSH2 #### Testing performed at [address] [address] Eosinophils/100 WBC (Bld) 2.5 % Normal 0.0-11.0 [facility] Comment on above: Performed By: #### F X, CMPF, LIP2, ACBC, TSH2 #### Testing performed at [address] [address] Lymphocytes (Bld) [#/Vol] 2.2 10*3/uL Normal 1.2-3.4 [facility] Comment on above: Performed By: #### F X, CMPF, LIP2, ACBC, TSH2 #### Testing performed at [address] [address] Lymphocytes/100 WBC (Bld) 32.1 % Normal 20.0-55.0 [facility] Comment on above: Performed By: #### F X, CMPF, LIP2, ACBC, TSH2 #### Testing performed at [address] [address] Monocytes (Bld) [#/Vol] 0.6 10*3/uL Normal 0.0-0.7 [facility] Comment on above: Performed By: #### F X, CMPF, LIP2, ACBC, TSH2 #### Testing performed at [address] [address] Monocytes/100 WBC (Bld) 8.0 % Normal 0.0-10.0 [facility] Comment on above: Performed By: #### F X, CMPF, LIP2, ACBC, TSH2 #### Testing performed at [address] [address] Neutrophils/100 WBC (Bld) 56.3 % Normal 37.0-75.0 [facility] Comment on above: Performed By: #### F X, CMPF, LIP2, ACBC, TSH2 #### Testing performed at [address] [address] Erythrocyte distribution width (RBC) [Ratio] 13.6 % Normal 11.5-14.5 [facility] Comment on above: Performed By: #### F X, CMPF, LIP2, ACBC, TSH2 #### Testing performed at [address] [address] Hematocrit (Bld) [Volume fraction] 43.1 % Normal 36.0-48.0 [facility] Comment on above: Performed By: #### F X, CMPF, LIP2, ACBC, TSH2 #### Testing performed at [address] [address] Hemoglobin (Bld) [Mass/Vol] 14.2 g/dL Normal 12.0-16.0 [facility] Comment on above: Performed By: #### F X, CMPF, LIP2, ACBC, TSH2 #### Testing performed at [address] [address] MCH (RBC) [Entitic mass] 28.5 pg Normal 26.0-35.0 [facility] Comment on above: Performed By: #### F X, CMPF, LIP2, ACBC, TSH2 #### Testing performed at [address] [address] MCHC (RBC) [Mass/Vol] 33.0 g/dL Normal 27.0-37.0 [facility] Comment on above: Performed By: #### F X, CMPF, LIP2, ACBC, TSH2 #### Testing performed at [address] [address] MCV (RBC) [Entitic vol] 86.3 fL Normal 80.0-100.0 [facility] Comment on above: Performed By: #### F X, CMPF, LIP2, ACBC, TSH2 #### Testing performed at [address] [address] Platelet mean volume (Bld) [Entitic vol] 7.5 fL Normal 7.4-11.0 [facility] Comment on above: Performed By: #### F X, CMPF, LIP2, ACBC, TSH2 #### Testing performed at [address] [address] Platelets (Bld) [#/Vol] 320 10*3/uL Normal 130-400 [facility] Comment on above: Performed By: #### F X, CMPF, LIP2, ACBC, TSH2 #### Testing performed at [address] [address] RBC (Bld) [#/Vol] 5.00 10*6/uL Normal 4.0-5.4 [facility] Comment on above: Performed By: #### F X, CMPF, LIP2, ACBC, TSH2 #### [place] [address] WBC (Bld) [#/Vol] 6.9 10*3/uL Normal 3.6-11.0 [facility] Comment on above: Performed By: #### F X, CMPF, LIP2, ACBC, TSH2 #### Testing performed at [place] [id number] CMP FASTINGon 07-09-2023 A:G RATIO 1.6 RATIO Normal [facility] Comment on above: Performed By: #### F X, CMPF, LIP2, ACBC, TSH2 #### [place] [address] ALBUMIN 4.9 G/dl Normal 3.5-5.0 [facility] Comment on above: Performed By: #### F X, CMPF, LIP2, ACBC, TSH2 #### Testing performed at [address] [address] ALP [Catalytic activity/Vol] 91 U/L Normal 38-126 [facility] Comment on above: Performed By: #### F X, CMPF, LIP2, ACBC, TSH2 #### Testing performed at [address] [address] ALT [Catalytic activity/Vol] 40 U/L High <35 [facility] Comment on above: Performed By: #### F X, CMPF, LIP2, ACBC, TSH2 #### Testing performed at [address] [address] AST [Catalytic activity/Vol] 34 U/L Normal 14-36 [facility] Comment on above: Performed By: #### F X, CMPF, LIP2, ACBC, TSH2 #### Testing performed at [address] [address] Bilirubin [Mass/Vol] 0.6 mg/dL Normal 0.2-1.3 [facility] Comment on above: Performed By: #### F X, CMPF, LIP2, ACBC, TSH2 #### Testing performed at [address] [address] Calcium [Mass/Vol] 9.3 mg/dL Normal 8.4-10.2 [facility] Comment on above: Performed By: #### F X, CMPF, LIP2, ACBC, TSH2 #### Testing performed at [address] [address] Chloride [Moles/Vol] 102 mmol/L Normal 98-107 [facility] Comment on above: Result Comment: Logan lenz note: Triglyceride levels of 600mg/dL or higher may positively bias chloride results by approximately 2.1 mmol Performed By: #### F X, CMPF, LIP2, ACBC, TSH2 #### [place] [address] CO2 [Moles/Vol] 25 mmol/L Normal 22-30 [facility] Comment on above: Performed By: #### F X, CMPF, LIP2, ACBC, TSH2 #### Testing performed at [address] [address] Creatinine [Mass/Vol] 0.70 mg/dL Normal 0.70-1.20 [facility] Comment on above: Performed By: #### F X, CMPF, LIP2, ACBC, TSH2 #### Testing performed at [address] [address] EST. GFR, 128 ml/min/1.73sq.m [facility] Comment on above: Performed By: #### F X, CMPF, LIP2, ACBC, TSH2 #### Testing performed at [address] [address] EST. GFR,Non 106 ml/min/1.73sq.m [facility] Comment on above: Performed By: #### F X, CMPF, LIP2, ACBC, TSH2 #### Testing performed at [address] [address] GFR Information Average GFR for 20-29 years old = 116. Normal [facility] Comment on above: Result Comment: Crew Chief iram Kidney disease, GFR = <60. Kidney failure, GFR = <15. The GFR estimate is not adjusted for extreme body surface area or acute process, nor has it been validated for women or ethnic groups other than and . Performed By: #### F X, CMPF, LIP2, ACBC, TSH2 #### Testing performed at [address] [address] Glucose [Mass/Vol] 90 mg/dL Normal 70-100 [facility] Comment on above: Result Comment: NORMAL <100 mg/dL PREDIABETES 101-126 mg/dL DIABETES 126 mg/dL or higher Performed By: #### F X, CMPF, LIP2, ACBC, TSH2 #### Testing performed at [address] [address] Potassium [Moles/Vol] 4.0 mmol/L Normal 3.5-5.1 [facility] Comment on above: Performed By: #### F X, CMPF, LIP2, ACBC, TSH2 #### Testing performed at [address] [address] Protein [Mass/Vol] 8.0 g/dL Normal 6.3-8.2 [facility] Comment on above: Performed By: #### F X, CMPF, LIP2, ACBC, TSH2 #### Testing performed at [address] [address] Sodium [Moles/Vol] 138 mmol/L Normal 137-145 [facility] Comment on above: Performed By: #### F X, CMPF, LIP2, ACBC, TSH2 #### Testing performed at [address] [address] Urea nitrogen [Mass/Vol] 12 mg/dL Normal 7-20 [facility] Comment on above: Performed By: #### F X, CMPF, LIP2, ACBC, TSH2 #### Testing performed at [address] [address] HEMOGLOBIN A1Con 07-09-2023 Glucose [Mass/Vol] 108 mg/dL Normal [facility] Comment on above: Performed By: #### H A1CT #### Testing performed at [address] [address] HbA1c (Bld) [Mass fraction] 5.4 % Normal 0-6 [facility] Comment on above: Result Comment: NORMAL <5.7% PREDIABETES 5.7-6.4% DIABETES 6.5% OR HIGHER Performed By: #### H A1CT #### Testing performed at [address] [address] TESTOSTER.FREE-TOTALon 04-08 FREE TESTOSTERONE 3.7 Normal [facility] Comment on above: Result Comment: Refe rence range: 0.0 to 4.2 Unit: pg/mL [facility] Performed By: #### F X, CMPF, LIP2, ACBC, TSH2 #### Testing performed at [address] [address] DHEA-SULFATEon 04-02-2023 DHEA-SULFATE 573.0 High [facility] Comment on above: Result Comment: Refe rence range: 84.8 to 378.0 Unit: ug/dL [facility] Performed By: #### F X, CMPF, LIP2, ACBC, TSH2 #### Testing performed at [address] [address] TESTOSTER.FREE-TOTALon 04-02 Testosterone [Mass/Vol] 46 ng/dL Normal [facility] Comment on above: Result Comment: Refe rence range: 13 to 71 Unit: ng/dL [facility] Performed By: #### F X, CMPF, LIP2, ACBC, TSH2 #### Testing performed at [address] [address] 25 0H VITAMIN D LEVELon 03-14 25 0H VITAMIN D LEVEL 28.5 NG/ML Normal [facility] Comment on above: Result Comment: DEFICIENT <20 NG/ML INSUFFICIENT 20-<30 NG/ML SUFFICIENT 30-100 NG/ML POTENTIAL TOXICITY >100 NG/ML Performed By: #### V ITD #### Testing performed at [address] [address] CMP FASTINGon 04-01-2023 A:G RATIO 1.5 RATIO Normal [facility] Comment on above: Performed By: #### F X, CMPF, LIP2, ACBC, TSH2 #### Testing performed at [address] [address] ALBUMIN 4.7 G/dl Normal 3.5-5.0 [facility] Comment on above: Performed By: #### F X, CMPF, LIP2, ACBC, TSH2 #### Testing performed at [address] [address] ALP [Catalytic activity/Vol] 100 U/L Normal 38-126 [facility] Comment on above: Performed By: #### F X, CMPF, LIP2, ACBC, TSH2 #### Testing performed at [address] [address] ALT [Catalytic activity/Vol] 36 U/L High <35 [facility] Comment on above: Performed By: #### F X, CMPF, LIP2, ACBC, TSH2 #### Testing performed at [address] [address] AST [Catalytic activity/Vol] 31 U/L Normal 14-36 [facility] Comment on above: Performed By: #### F X, CMPF, LIP2, ACBC, TSH2 #### Testing performed at [address] [address] Bilirubin [Mass/Vol] 0.5 mg/dL Normal 0.2-1.3 [facility] Comment on above: Performed By: #### F X, CMPF, LIP2, ACBC, TSH2 #### Testing performed at [address] [address] Calcium [Mass/Vol] 9.5 mg/dL Normal 8.4-10.2 [facility] Comment on above: Performed By: #### F X, CMPF, LIP2, ACBC, TSH2 #### Testing performed at [address] [address] Chloride [Moles/Vol] 100 mmol/L Normal 98-107 [facility] Comment on above: Result Comment: Plea note: Triglyceride levels of 600mg/dL or higher may positively bias chloride results by approximately 2.1 mmol Performed By: #### F X, CMPF, LIP2, ACBC, TSH2 #### [place] [address] CO2 [Moles/Vol] 25 mmol/L Normal 22-30 [facility] Comment on above: Performed By: #### F X, CMPF, LIP2, ACBC, TSH2 #### [place] [address] Creatinine [Mass/Vol] 0.64 mg/dL Low 0.70-1.20 [facility] Comment on above: Performed By: #### F X, CMPF, LIP2, ACBC, TSH2 #### Testing performed at [place] [id number] EST. GFR, 142 ml/min/1.73sq.m [facility] Comment on above: Performed By: #### F X, CMPF, LIP2, ACBC, TSH2 #### Testing performed at [place] [id number] EST. GFR,Non 117 ml/min/1.73sq.m [facility] Comment on above: Performed By: #### F X, CMPF, LIP2, ACBC, TSH2 #### [place] [address] GFR Information Average GFR for 20-29 years old = 116. Normal [facility] Comment on above: Result Comment: Crew Chief iram Kidney disease, GFR = <60. Kidney failure, GFR = <15. The GFR estimate is not adjusted for extreme body surface area or acute process, nor has it been validated for women or ethnic groups other than and . Performed By: #### F X, CMPF, LIP2, ACBC, TSH2 #### Testing performed at [place] [id number] Glucose [Mass/Vol] 80 mg/dL Normal 70-100 [facility] Comment on above: Result Comment: NORMAL <100 mg/dL PREDIABETES 101-126 mg/dL DIABETES 126 mg/dL or higher Performed By: #### F X, CMPF, LIP2, ACBC, TSH2 #### Testing performed at [address] [address] Potassium [Moles/Vol] 4.2 mmol/L Normal 3.5-5.1 [facility] Comment on above: Performed By: #### F X, CMPF, LIP2, ACBC, TSH2 #### Testing performed at [address] [address] Protein [Mass/Vol] 7.8 g/dL Normal 6.3-8.2 [facility] Comment on above: Performed By: #### F X, CMPF, LIP2, ACBC, TSH2 #### Testing performed at [address] [address] Sodium [Moles/Vol] 139 mmol/L Normal 137-145 [facility] Comment on above: Performed By: #### F X, CMPF, LIP2, ACBC, TSH2 #### Testing performed at [address] [address] Urea nitrogen [Mass/Vol] 12 mg/dL Normal 7-20 [facility] Comment on above: Performed By: #### F X, CMPF, LIP2, ACBC, TSH2 #### Testing performed at [address] [address] FAX REQUESTon 04-01-2023 FAX TO [phone] Normal [facility] Comment on above: Performed By: #### F X, CMPF, LIP2, ACBC, TSH2 #### Testing performed at [address] [address] Provider Note - ED v3on 12-13 Provider [...] SIGNS: T PRBP SpO2O2(LPM) %FiO2 Method 07-Jan-2023 09:04:[id number] 44/87 98 MDM MDM/ED COURSE: Ladonna is [...] ill patient: no Electronic Signatures: Marie Mario (SILVER WRAPPER-HYDRAULIC DREDGE OPERATOR) (Signed 07-Jan-2023 11:49) Authored: ED Notes, HPI, PMH, ROS, PE, Results/Vital Signs, MDM/ED Course, Clinical Impression, Attestation, Chart Review, Scores Last Updated: 07-Jan-2023 11:49 by Marie Mario (SILVER WRAPPER-HYDRAULIC DREDGE OPERATOR) [facility] Provider Note - ED v3on [...] did not treat her symptoms with any [id number] medications because she was afraid of breast-feeding. [...] SIGNS: T PRBP SpO2O2(LPM) %FiO2 Method 31-Dec-2022 11:12:[id number] /77 98 MDM MDM/ED COURSE: Drake is [...] ill patient: no Electronic Signatures: Marie Mario (SILVER WRAPPER-HYDRAULIC DREDGE OPERATOR) (Signed 31-Dec-2022 12:09) Authored: ED Notes, HPI, PMH, ROS, PE, Results/Vital Signs, MDM/ED Course, Clinical Impression, Attestation, Chart Review, Scores Last Updated: 31-Dec-2022 12:09 by Marie Mario (SILVER WRAPPER-HYDRAULIC DREDGE OPERATOR) [facility] CBC, EDIF, PLATELETon 2021 ABSOLUTE BASOPHIL COUNT 0.1 10*3/uL 0.0 - 0.2 10*3/uL [facility] Comment on above: Testing performed at [facility], [place], [place] [address] Basophils/100 WBC (Bld) 0.4 % 0.0 - 2.0 % [facility] Differential cell count method Nom (Bld) AUTO DIFF % [facility] Eosinophils (Bld) [#/Vol] 0.1 10*3/uL 0.0 - 0.7 10*3/uL [facility] Eosinophils/100 WBC (Bld) 0.8 % 0.0 - 11.0 % [facility] Erythrocyte distribution width (RBC) [Ratio] 14.1 % 11.5 - 14.5 % [facility] Hematocrit (Bld) [Volume fraction] 35.1 % Low 36.0 - 48.0 % [facility] Hemoglobin (Bld) [Mass/Vol] 11.9 g/dL Low [facility] Interpretation and review of laboratory results Abnormal [facility] Lymphocytes (Bld) [#/Vol] 2.2 10*3/uL 1.2 - 3.4 10*3/uL [facility] Lymphocytes/100 WBC (Bld) 15.4 % Low 20.0 - 55.0 % [facility] MCH (RBC) [Entitic mass] 27.8 pg 26.0 - 35.0 PG [facility] MCHC (RBC) [Mass/Vol] 34.0 g/dL Chioma Venafi [facility] MCV (RBC) [Entitic vol] 81.8 fL A audie [facility] Monocytes (Bld) [#/Vol] 1.3 10*3/uL High 0.0 - 0.7 10*3/uL [facility] Monocytes/100 WBC (Bld) 8.8 % 0.0 - 10.0 % [facility] Neutrophils (Bld) [#/Vol] 10.7 10*3/uL High 1.4 - 6.5 10*3/uL [facility] Neutrophils/100 WBC (Bld) 74.6 % 37.0 - 75.0 % [facility] Platelet mean volume (Bld) [Entitic vol] 8.7 fL [facility] Platelets (Bld) [#/Vol] 194 10*3/uL 130. 0 - 400.0 10*3/uL [facility] RBC (Bld) [#/Vol] 4.29 10*6/uL 4.0 - 5.4 10*6/uL [facility] WBC (Bld) [#/Vol] 14.3 10*3/uL High 3.6 - 11.0 10*3/uL [facility] CBC, EDIF, PLATELETon 2021 ABSOLUTE BASOPHIL COUNT 0.1 10*3/uL 0.0 - 0.2 10*3/uL [facility] Comment on above: Testing performed at [facility], [place], [place] [address] Basophils/100 WBC (Bld) 0.6 % 0.0 - 2.0 % [facility] Differential cell count method Nom (Bld) AUTO DIFF % [facility] Eosinophils (Bld) [#/Vol] 0.2 10*3/uL 0.0 - 0.7 10*3/uL [facility] Eosinophils/100 WBC (Bld) 2.0 % 0.0 - 11.0 % [facility] Erythrocyte distribution width (RBC) [Ratio] 14.4 % 11.5 - 14.5 % [facility] Hematocrit (Bld) [Volume fraction] 38.7 % 36.0 - 48.0 % [facility] Hemoglobin (Bld) [Mass/Vol] 12.8 g/dL [facility] Interpretation and review of laboratory results Abnormal [facility] Lymphocytes (Bld) [#/Vol] 2.2 10*3/uL 1.2 - 3.4 10*3/uL [facility] Lymphocytes/100 WBC (Bld) 23.1 % 20.0 - 55.0 % [facility] MCH (RBC) [Entitic mass] 27.5 pg 26.0 - 35.0 PG [facility] MCHC (RBC) [Mass/Vol] 33.2 g/dL [facility] MCV (RBC) [Entitic vol] 82.7 fL A [facility] Monocytes (Bld) [#/Vol] 0.9 10*3/uL High 0.0 - 0.7 10*3/uL [facility] Monocytes/100 WBC (Bld) 9.6 % 0.0 - 10.0 % [facility] Neutrophils (Bld) [#/Vol] 6.3 10*3/uL 1.4 - 6.5 10*3/uL [facility] Neutrophils/100 WBC (Bld) 64.7 % 37.0 - 75.0 % [facility] Platelet mean volume (Bld) [Entitic vol] 8.3 fL [facility] Platelets (Bld) [#/Vol] 221 10*3/uL 130. 0 - 400.0 10*3/uL [facility] RBC (Bld) [#/Vol] 4.68 10*6/uL 4.0 - 5.4 10*6/uL [facility] WBC (Bld) [#/Vol] 9.7 10*3/uL 3.6 - 11.0 10*3/uL [facility] GLUCOSE (POC DEVICE)on 08-11 GLUCOSE, POINT OF CARE [address] [facility] Operator [id number] [facility] NOVEL CORONAVIRUS LAB 1 - NA SOPHARYNGEALon 08-11-2022 NARRATIVE -1 This test was performed using isothermal NELLY and has been approved as Emergency Use Authorization (EUA) for the qualitative detection [id number] nucleic acid. [facility] Comment on above: Testing performed at [place], [place] [address] SARS-CoV-2 (COVID-19) RNA NELLY+probe Ql (Unsp spec) Not detected NOT DETECTED [facility] Comment on above: Negative results do [...] patient is critically ill or clinically deteriorating. [facility] RAPID TOX SCREEN WITH RELEX TO DRUGMCon 08-11-2022 Amphetamine (U) [Mass/Vol] Negative NEGATIVE NG/ML [facility] Comment on above: <500 ng/ml CUTOFF Barbiturates Screen Ql (U) Negative NEGATIVE NG/ML [facility] Comment on above: <200 ng/ml CUTOFF Benzodiazepines Ql (U) Negative NEGATIVE NG/M L [facility] Comment on above: <150 ng/ml CUTOFF Benzoylecgonine Ql (U) Negative NEGATIVE NG/M L [facility] Comment on above: <150 ng/ml CUTOFF Buprenorphine Ql (U) Negative NEGATIVE NG/ML [facility] Comment on above: <10 ng/ml CUTOFF Testing performed at [place], [place] [address] Cannabinoids Screen Ql (U) Negative NEGATIVE NG/ML [facility] Comment on above: <50 ng/ml CUTOFF Methadone Screen Ql (U) Negative NEGATIVE NG/ ML [facility] Comment on above: <200 ng/ml CUTOFF Methamphetamine (U) [Mass/Vol] Negative NEGATIVE NG/ML [facility] Comment on above: <500 ng/ml CUTOFF Opiates Screen Ql (U) Negative NEGATIVE NG/ML [facility] Comment on above: <100 ng/ml CUTOFF oxyCODONE Ql (U) Negative NEGATIVE NG/ML [facility] Comment on above: <100 ng/ml CUTOFF Phencyclidine Screen method >25 ng/mL Ql (U) Negative NEGATIVE NG/ML [facility] Comment on above: <25 ng/ml CUTOFF Propoxyphene+Norpropoxyp hene Screen Ql (U) Negative NEGATIVE NG/ML [facility] Comment on above: <300 ng/ml CUTOFF Tricyclic antidepressants Screen Ql (U) Negative NEGATIVE NG/ML [facility] Comment on above: <300 ng/ml CUTOFF [facility] Heart R-R duration USo n 08-05-2022 [facility] Heart R-R duration [email or web address] n 07-30-2022 [facility] Heart R-R duration US n 07-23-2022 [facility] Heart R-R duration [email or web address] n 07-17-2022 [facility] HEMOGLOBIN A1Con 07-17-2022 Glucose [Mass/Vol] 105 mg/dL [facility] Comment on above: Testing performed at [place], [place] [address] HbA1c (Bld) [Mass fraction] 5.3 % 0 - 6 % [facility] Comment on above: NORMAL <5.7% PREDIABETES 5.7-6.4% DIABETES 6.5% OR HIGHER [facility] CBC, EDIF, PLATELETon 2021 ABSOLUTE BASOPHIL COUNT 0.0 10*3/uL 0.0 - 0.2 10*3/uL [facility] Comment on above: Testing performed at [place], [place] [address] Basophils/100 WBC (Bld) 0.3 % 0.0 - 2.0 % [facility] Differential cell count method Nom (Bld) AUTO DIFF % [facility] Eosinophils (Bld) [#/Vol] 0.1 10*3/uL 0.0 - 0.7 10*3/uL [facility] Eosinophils/100 WBC (Bld) 0.5 % 0.0 - 11.0 % [facility] Erythrocyte distribution width (RBC) [Ratio] 13.7 % 11.5 - 14.5 % [facility] Hematocrit (Bld) [Volume fraction] 37.1 % 36.0 - 48.0 % [facility] Hemoglobin (Bld) [Mass/Vol] 12.6 g/dL [facility] Interpretation and review of laboratory results Abnormal [facility] Lymphocytes (Bld) [#/Vol] 1.4 10*3/uL 1.2 - 3.4 10*3/uL [facility] Lymphocytes/100 WBC (Bld) 12.8 % Low 20.0 - 55.0 % [facility] MCH (RBC) [Entitic mass] 28.5 pg 26.0 - 35.0 PG [facility] MCHC (RBC) [Mass/Vol] 33.9 g/dL [facility] MCV (RBC) [Entitic vol] 83.9 fL [facility] Monocytes (Bld) [#/Vol] 0.8 10*3/uL High 0.0 - 0.7 10*3/uL [facility] Monocytes/100 WBC (Bld) 7.3 % 0.0 - 10.0 % [facility] Neutrophils (Bld) [#/Vol] 8.7 10*3/uL High 1.4 - 6.5 10*3/uL [facility] Neutrophils/100 WBC (Bld) 79.1 % High 37.0 - 75.0 % [facility] Platelet mean volume (Bld) [Entitic vol] 9.2 fL [facility] Platelets (Bld) [#/Vol] 216 10*3/uL 130. 0 - 400.0 10*3/uL [facility] RBC (Bld) [#/Vol] 4.42 10*6/uL 4.0 - 5.4 10*6/uL [facility] WBC (Bld) [#/Vol] 11.0 10*3/uL 3.6 - 11.0 10*3/uL [facility] COMPREHENSIVE METABOLIC PANE Keo 07-13-2022 Albumin [Mass/Vol] 3.5 G/dl 3.5 - 5.0 G/dl [facility] Albumin/Globulin [Mass ratio] 1.2 {ratio} Low [facility] ALP [Catalytic activity/Vol] 131 U/L [facility] ALT [Catalytic activity/Vol] 18 U/L [facility] AST [Catalytic activity/Vol] 23 U/L [facility] Bilirubin [Mass/Vol] 0.1 mg/dL Low [facility] Calcium [Mass/Vol] 8.9 mg/dL [facility] Chloride [Moles/Vol] 106 mmol/L [facility] Comment on above: Please note: Triglyc eride levels of 600mg/dL or higher may positively bias chloride results by approximately 2.1 mmol CO2 [Moles/Vol] 22 mmol/L [facility] Creatinine [Mass/Vol] 0.70 mg/dL [facility] GFR COMMENT Average GFR for 20-29 years old = 116. [facility] Comment on above: Chronic Kidney disea se, GFR = <60. Kidney failure, GFR = <15. The GFR estimate is not adjusted for extreme body surface area or acute process, nor has it been validated for women or ethnic groups other than and . Testing performed at [place], [place] [address] GFR/1.73 sq M.predicted among blacks MDRD (S/P/Bld) [Vol rate/Area] 129 mL/min/{1.73_m2} ml/min/1.73sq. m [facility] GFR/1.73 sq M.predicted among non-blacks MDRD (S/P/Bld) [Vol rate/Area] 107 mL/min/{1.73_m2} ml/min/1.73sq. m [facility] Glucose post fast [Mass/Vol] 110 mg/dL High [facility] Comment on above: NORMAL <100 mg/dL PREDIABETES 101-126 mg/dL DIABETES 126 mg/dL or higher Potassium [Moles/Vol] 3.9 mmol/L [facility] Protein [Mass/Vol] 6.4 g/dL [facility] Sodium [Moles/Vol] 134 mmol/L Low [facility] Urea nitrogen [Mass/Vol] 11 mg/dL [facility] LACTATE DEHYDROGENASEon 06-15 LDH [Catalytic activity/Vol] 91 U/L Low [facility] Comment on above: Testing performed at [place], [place] [address] No Panel Informationon 07-13 Interpretation and review of laboratory results Abnormal [facility] Heart R-R duration USo n 07-09-2022 [facility] Heart R-R duration USo n 06-29-2022 [facility] Heart R-R duration USo n 06-25-2022 [facility] Heart R-R duration USo n 06-18-2022 [facility] OB ultrasound panelon 2021 : Single live iup in Vertex position. EFW is 1677g, which is the 48.5 percentile. heart rate 130 bpm. Umbilical artery S/D ratio is 2.85. [facility] Radiology Study observation (narrative) [facility] ECGOrdered By: Alvarado hawk on 06-16-2022 [facility] Work Phone: Heart R-R duration USo n 05-22-2022 Josse Walter MD - 05/22/2022 2:00 PM EDT Non-stress Test Gestational age: 27w1d Indication: Decreased movement Baseline: 140 bpm 10x10s: N/A Variability: moderate Decelerations: absent Contractions: absent Duration >20 minutes Comments: Reassuring for gestational age 0905/22/22 Josse Walter MD [facility] OB ultrasound panelon 2021 : Single live IUP in Breech position. Normal Anatomy seen. Outflow tracts not seen - follow up ultrasound in 1 month. ASHLEE by US - 08/20/2022 which is consistent with gestational age. [facility] Radiology Study observation (narrative) [facility] OB ultrasound panelon 2021 : 1. Single noted within the uterus 2. heart rate of 159 bpm. [facility] REFERRING PHYSICIAN: Dr. Lee TECHNOLOGIST: Radha Simon PROCEDURE DATE : 02/02/2022 INDICATIONS: Early gestational, couldn't heart heart tones PROCEDURE DETAILS A single was noted within the uterus. heart rate of 159 bpm. FINAL [facility] Radiology Study observation (narrative) [facility] OB ultrasound panelon 2021 : 1. Single of 10 weeks and 4 days. 2. heart rate of 171 bpm. 3. US ASHLEE 08/20/2022, which is inconsistent with ASHLEE by LMP and should be changed. [facility] REFERRING PHYSICIAN: Dr. Lee TECHNOLOGIST: Radha Simon PROCEDURE DATE : 01/26/2022 INDICATIONS: Early gestational, dating LMP 11/08/2021, ASHLEE 08/15/2022 PROCEDURE DETAILS A single was noted within the uterus. heart rate of 171 bpm. The CRL measures 3.65 cm , 10 weeks 4 days. FINAL [facility] Radiology Study observation (narrative) [facility] [employer] ABO/RH(D) TYPINGon 2 ABO and Rh group Nom (Bld ) Positive [facility] ABO and Rh group Nom (Bld ) Testing performed at [place], [place] [address] [facility] ANTIBODY SCREENon 01-09-2022 Blood group antibody screen Ql Negative [facility] EXPIRATION DATE 01/12/2022,2359 [facility] EXPIRATION DATE Testing performed at [place], [place] [address] [facility] CBC, EDIF, PLATELETon 2021 ABSOLUTE BASOPHIL COUNT 0.0 10*3/uL 0.0 - 0.2 10*3/uL [facility] Comment on above: Testing performed at [place] [address] Basophils/100 WBC (Bld) 0.5 % 0.0 - 2.0 % [facility] Differential cell count method Nom (Bld) AUTO DIFF % [facility] Eosinophils (Bld) [#/Vol] 0.10 10*3/uL 0.0 - 0.7 10*3/uL [facility] Eosinophils/100 WBC (Bld) 1.1 % 0.0 - 11.0 % [facility] Erythrocyte distribution width (RBC) [Ratio] 12.8 % 11.5 - 14.5 % [facility] Hematocrit (Bld) [Volume fraction] 37.9 % 36.0 - 48.0 % [facility] Hemoglobin (Bld) [Mass/Vol] 13.3 g/dL [facility] Interpretation and review of laboratory results Abnormal [facility] Lymphocytes (Bld) [#/Vol] 1.40 10*3/uL 1.2 - 3.4 10*3/uL [facility] Lymphocytes/100 WBC (Bld) 19.9 % Low 20.0 - 55.0 % [facility] MCH (RBC) [Entitic mass] 30.5 pg 26.0 - 35.0 PG [facility] MCHC (RBC) [Mass/Vol] 35.0 g/dL [facility] MCV (RBC) [Entitic vol] 87.1 fL [facility] Monocytes (Bld) [#/Vol] 0.5 10*3/uL 0.0 - 0.7 10*3/uL [facility] Monocytes/100 WBC (Bld) 7.4 % 0.0 - 10.0 % [facility] Neutrophils (Bld) [#/Vol] 5.1 10*3/uL 1.4 - 6.5 10*3/uL [facility] Neutrophils/100 WBC (Bld) 71.1 % 37.0 - 75.0 % [facility] Platelet mean volume (Bld) [Entitic vol] 7.8 fL [facility] Platelets (Bld) [#/Vol] 296 10*3/uL 130. 0 - 400.0 10*3/uL [facility] RBC (Bld) [#/Vol] 4.35 10*6/uL 4.0 - 5.4 10*6/uL [facility] WBC (Bld) [#/Vol] 7.2 10*3/uL 3.6 - 11.0 10*3/uL [facility] HIV 1+2 Ab+HIV1 p24 Ag IA Ql on 01-09-2022 HIV 1+2 Ab IA Ql Non-Reactive NONREACTIVE [facility] Comment on above: Testing performed at [address] [facility] RAPID TOX SCREEN WITH RELEX TO DRUGMCon 01-09-2022 Amphetamine (U) [Mass/Vol] Negative NEGATIVE NG/ML [facility] Comment on above: <500 ng/ml CUTOFF Barbiturates Screen Ql (U) Negative NEGATIVE NG/ML [facility] Comment on above: <200 ng/ml CUTOFF Benzodiazepines Ql (U) Negative NEGATIVE NG/M L [facility] Comment on above: <150 ng/ml CUTOFF Benzoylecgonine Ql (U) Negative NEGATIVE NG/M L [facility] Comment on above: <150 ng/ml CUTOFF Buprenorphine Ql (U) Negative NEGATIVE NG/ML [facility] Comment on above: <10 ng/ml CUTOFF Testing performed at [place] [address] Cannabinoids Screen Ql (U) Negative NEGATIVE NG/ML [facility] Comment on above: <50 ng/ml CUTOFF Methadone Screen Ql (U) Negative NEGATIVE NG/ ML [facility] Comment on above: <200 ng/ml CUTOFF Methamphetamine (U) [Mass/Vol] Negative NEGATIVE NG/ML [facility] Comment on above: <500 ng/ml CUTOFF Opiates Screen Ql (U) Negative NEGATIVE NG/ML [facility] Comment on above: <100 ng/ml CUTOFF oxyCODONE Ql (U) Negative NEGATIVE NG/ML [facility] Comment on above: <100 ng/ml CUTOFF Phencyclidine Screen method >25 ng/mL Ql (U) Negative NEGATIVE NG/ML [facility] Comment on above: <25 ng/ml CUTOFF Propoxyphene+Norpropoxyp hene Screen Ql (U) Negative NEGATIVE NG/ML [facility] Comment on above: <300 ng/ml CUTOFF Tricyclic antidepressants Screen Ql (U) Negative NEGATIVE NG/ML [facility] Comment on above: <300 ng/ml CUTOFF [facility] TSH with Reflex Free T4on Interpretation and review of laboratory results Normal [facility] TSH Qn 1.52 m[IU]/L [facility] Comprehensive Metabolic Pane keo 09-25-2019 Albumin [Mass/Vol] 4.4 g/dL 3.2 - 5.2 g/dL [facility] ALP [Catalytic activity/Vol] 94 U/L 40 - 140 U/L [facility] ALT [Catalytic activity/Vol] 51 U/L 14 - 65 U/L [facility] Anion gap [Moles/Vol] 10 mmol/L 10 - 20 mmol/L [facility] AST [Catalytic activity/Vol] 18 U/L 0 - 45 U/L [facility] Bilirubin [Mass/Vol] 0.4 mg/dL 0 - 1.3 mg/dL [facility] Calcium [Mass/Vol] 9.5 mg/dL 8.4 - 10. 2 mg/dL [facility] Chloride [Moles/Vol] 104 mmol/L 98 - 10 8 mmol/L [facility] Creatinine [Mass/Vol] 0.90 mg/dL 0.4 - 1.1 mg/dL [facility] GFR/1.73 sq M predicted among non-blacks MDRD (S/P/Bld) [Vol rate/Area] The eGFR should be used for monitoring renal function only and not for medication dosing. [facility] GFR/1.73 sq M.predicted CKD-EPI (S/P/Bld) [Vol rate/Area] 90 >=60 mL/min/1.73 m2 [facility] Glucose [Mass/Vol] 82 mg/dL 65 - 99 mg/dL [facility] [Moles/Vol] 28 mmol/L 21 - 32 mmol/L [facility] Potassium [Moles/Vol] 4.0 mmol/L 3.5 - 5.1 mmol/L [facility] Protein [Mass/Vol] 8.0 g/dL 6 - 8 g/dL [facility] Sodium [Moles/Vol] 138 mmol/L 135 - 145 mmol/L [facility] Urea nitrogen [Mass/Vol] 10 mg/dL 8 - 25 mg/d L [facility] Urea nitrogen/Creatinine [Mass ratio] 11.1 mg/mg [facility] Follicle Stimulating Hormone on 09-25-2019 Follitropin Qn 2.6 m[IU]/mL mIU/mL [facility] FSH Reference Range: (Units mIU/mL) Pubertal adult females, menstrual cycle phases: Menarche to pre-menopause Follicular 2.3 - 12.6 Mid-cycle peak 5.2 - 17.5 Luteal 1.7 - 12.9 Post-menopausal On Menopausal Hormone Therapy (MHT) 5.9 - 72.8 Not on MHT 12.7 - 132.2 [facility] Luteinizing Hormoneon 2019 Lutropin Qn 7.4 m[IU]/mL mIU/mL [facility] LH Reference Range (Units mIU/mL) Female: Pubertal adult females, menstrual cycle phase: Follicular 1.9 - 12.8 Mid-cycle peak 22.8 - 76.1 Luteal 0.6 - 13.5 Post-menopausal: On Menopausal Hormone Therapy (MHT) 1.1 - 52.4 Not on MHT 8.6 - 61.8 [facility] Otheron 09-25-2019 Interpretation and review of laboratory results Normal [facility] TSH with Reflex Free T4on TSH Qn 3.77 m[IU]/L [facility] Vital Signs Date Time Vital Sign Value Performing Clinician Facility 06-25-2025 15:16-0400 Body height 162.56 cm Keyla ALDRIDGE Work Phone: [facility] 06-25-2025 15:16-0400 Body mass index (BMI) [Ratio] 31.4 kg/m2 Keyla ALDRIDGE Work Phone: [facility] 06-25-2025 15:16-0400 Body weight 83.17 kg Keyla ALDRIDGE Work Phone: [facility] 06-25-2025 15:16-0400 Diastolic blood pressure 74 mm[Hg] Keyla Gideon CLIENT MANAGER-C Work Phone: [facility] 06-25-2025 15:16-0400 Systolic blood pressure 108 mm[Hg] Keyla Gideon CLIENT MANAGER-C Work Phone: [facility] 06-13-2025 15:26-0400 Body height 162.56 cm Keyla Gideon CLIENT MANAGER-C Work Phone: [facility] 06-13-2025 15:26-0400 Body mass index (BMI) [Ratio] 31.7 kg/m2 Keyla Gideon CLIENT MANAGER-C Work Phone: [phone] [place] [address] 06-13-2025 15:26-0400 Body weight 83.91 kg Keyla Gideon CLIENT MANAGER-C Work Phone: [phone] [place] [address] 06-13-2025 15:26-0400 Diastolic blood pressure 67 mm[Hg] Keyla Gideon CLIENT MANAGER-C Work Phone: [phone] [address] 06-13-2025 15:26-0400 Systolic blood pressure 101 mm[Hg] Keyla Gideon CLIENT MANAGER-C Work Phone: [phone] [place] [address] 05-22-2025 15:35-0400 Body height 162.56 cm Keyla Gideon CLIENT MANAGER-C Work Phone: [phone] [place] [address] 05-22-2025 15:35-0400 Body mass index (BMI) [Ratio] 31.6 kg/m2 Keyla Gideon CLIENT MANAGER-C Work Phone: [facility] 05-22-2025 15:35-0400 Body weight 83.6 kg Keyla Gideon CLIENT MANAGER-C Work Phone: [phone] [place] [address] 05-22-2025 15:35-0400 Diastolic blood pressure 75 mm[Hg] Keyla Gideon CLIENT MANAGER-C Work Phone: [facility] 05-22-2025 15:35-0400 Systolic blood pressure 115 mm[Hg] Keyla Gideon CLIENT MANAGER-C Work Phone: [facility] 04-27-2025 11:42-0400 Body height 162.56 cm Keyla Meneses CLIENT MANAGER-C Work Phone: [facility] 04-27-2025 11:42-0400 Body mass index (BMI) [Ratio] 30.4 kg/m2 Keyla Meneses CLIENT MANAGER-C Work Phone: [facility] 04-27-2025 11:42-0400 Body weight 80.48 kg Keyla Meneses CLIENT MANAGER-C Work Phone: [facility] 04-27-2025 11:42-0400 Diastolic blood pressure 69 mm[Hg] Keyla Meneses CLIENT MANAGER-C Work Phone: [facility] 04-27-2025 11:42-0400 Systolic blood pressure 105 mm[Hg] Keyla Meneses CLIENT MANAGER-C Work Phone: [facility] 03-30-2025 13:58-0400 Body height 162.56 cm Keyla Meneses CLIENT MANAGER-C Work Phone: [facility] 03-30-2025 13:58-0400 Body mass index (BMI) [Ratio] 29 kg/m2 Keyla Meneses CLIENT MANAGER-C Work Phone: [facility] 03-30-2025 13:58-0400 Body weight 76.77 kg Keyla Meneses CLIENT MANAGER-C Work Phone: [facility] 03-30-2025 13:58-0400 Diastolic blood pressure 72 mm[Hg] Keyla Meneses CLIENT MANAGER-C Work Phone: [facility] 03-30-2025 13:58-0400 Systolic blood pressure 116 mm[Hg] Keyla Meneses CLIENT MANAGER-C Work Phone: [facility] 03-26-2025 11:59-0400 Body height 162.6 cm Anna Fuentes MD Work Phone: [facility] 03-26-2025 11:59-0400 Body mass index (BMI) [Ratio] 26.98 kg/m2 Anna Fuentes MD Work Phone: [facility] 03-26-2025 11:59-0400 Body weight 71.31 kg Anna Fuentes MD Work Phone: [facility] 03-26-2025 11:59-0400 Diastolic blood pressure 71 mm[Hg] Anna Fuentes MD Work Phone: [facility] 03-26-2025 11:59-0400 Heart rate 86 /min Anna Fuentes MD Work Phone: [facility] 03-26-2025 11:59-0400 Respiratory rate 16 /min Anna Fuentes MD Work Phone: [facility] 03-26-2025 11:59-0400 SaO2% (BldA) [Mass fraction] 100 % Anna Fuentes MD Work Phone: [facility] 03-26-2025 11:59-0400 Systolic blood pressure 111 mm[Hg] Anna Fuentes MD Work Phone: [facility] 03-01-2025 13:22-0400 Body height 162.56 cm Keyla Meneses NP-C Work Phone: [facility] 03-01-2025 13:22-0400 Body mass index (BMI) [Ratio] 28.5 kg/m2 Keyla Meneses NP-C Work Phone: [facility] 03-01-2025 13:22-0400 Body weight 75.29 kg Keyla Meneses CLIENT MANAGER-C Work Phone: [facility] 03-01-2025 13:22-0400 Diastolic blood pressure 70 mm[Hg] Keyla Meneses NP-C Work Phone: [facility] 03-01-2025 13:22-0400 Systolic blood pressure 111 mm[Hg] Keyla Meneses CLIENT MANAGER-C Work Phone: [facility] 01-18-2025 08:47-0400 Body height 162.56 cm Keyla Gideon CLIENT MANAGER-C Work Phone: [facility] 01-18-2025 08:47-0400 Body mass index (BMI) [Ratio] 27.8 kg/m2 Keyla Meneses CLIENT MANAGER-C Work Phone: [facility] 01-18-2025 08:47-0400 Body weight 73.53 kg Keyla Meneses CLIENT MANAGER-C Work Phone: [facility] 01-18-2025 08:47-0400 Diastolic blood pressure 79 mm[Hg] Keyla Meneses CLIENT MANAGER-C Work Phone: [facility] 01-18-2025 08:47-0400 Systolic blood pressure 122 mm[Hg] Keyla Meneses CLIENT MANAGER-C Work Phone: [facility] 01-02-2025 08:40-0400 Body mass index (BMI) [Ratio] 27.8 kg/m2 Keyla Meneses CLIENT MANAGER-C Work Phone: [facility] 01-02-2025 08:40-0400 Body weight 73.48 kg Keyla Meneses CLIENT MANAGER-C Work Phone: [facility] 12-25-2024 13:58-0400 Body height 162.6 cm Anna Fuentes MD Work Phone: [facility] 12-25-2024 13:58-0400 Body mass index (BMI) [Ratio] 27 kg/m2 Anna Fuentes MD Work Phone: [facility] 12-25-2024 13:58-0400 Body weight 71.35 kg Anna Fuentes MD Work Phone: [facility] 12-25-2024 13:58-0400 Diastolic blood pressure 74 mm[Hg] Anna Fuentes MD Work Phone: [facility] 12-25-2024 13:58-0400 Heart rate 78 /min Anna Fuentes MD Work Phone: [facility] 12-25-2024 13:58-0400 Respiratory rate 16 /min Anna Fuentes MD Work Phone: [facility] 12-25-2024 13:58-0400 SaO2% (BldA) [Mass fraction] 100 % Anna Fuentes MD Work Phone: [facility] 12-25-2024 13:58-0400 Systolic blood pressure 115 mm[Hg] Anna Fuentes MD Work Phone: [facility] 11-09-2024 13:09-0500 Body height 162.6 cm Antonio Jessica PA-C Work Phone: [facility] 11-09-2024 13:09-0500 Body mass index (BMI) [Ratio] 27.46 kg/m2 Antonio Jessica PA-C Work Phone: [facility] 11-09-2024 13:09-0500 Body temperature 97.81 [degF] Antonio Jessica PA-C Work Phone: [facility] 11-09-2024 13:09-0500 Body weight 72.58 kg Antonio Jessica PA-C Work Phone: [facility] 11-09-2024 13:09-0500 Diastolic blood pressure 84 mm[Hg] Antonio Jessica PA-C Work Phone: [facility] 11-09-2024 13:09-0500 Heart rate 98 /min Antonio Jessica PA-C Work Phone: [facility] 11-09-2024 13:09-0500 Respiratory rate 16 /min Antonio Jessica PA-C Work Phone: [facility] 11-09-2024 13:09-0500 SaO2% (BldA) [Mass fraction] 97 % Antonio Jessica PA-C Work Phone: [facility] 11-09-2024 13:09-0500 Systolic blood pressure 129 mm[Hg] Antonio Jessica PA-C Work Phone: [facility] 05-18-2024 08:03-0400 Body mass index (BMI) [Ratio] 28.89 kg/m2 Keyla Meneses HYDRAULIC DREDGE OPERATOR Work Phone: [facility] 05-18-2024 08:03-0400 Body temperature 98.49 [degF] Keyla Meneses HYDRAULIC DREDGE OPERATOR Work Phone: [facility] 05-18-2024 08:03-0400 Body weight 78.74 kg Keyla Meneses HYDRAULIC DREDGE OPERATOR Work Phone: [facility] 05-18-2024 08:03-0400 Diastolic blood pressure 81 mm[Hg] Keyla Gideon HYDRAULIC DREDGE OPERATOR Work Phone: [facility] 05-18-2024 08:03-0400 Heart rate 81 /min Keyla Meneses HYDRAULIC DREDGE OPERATOR Work Phone: [facility] 05-18-2024 08:03-0400 SaO2% (BldA) [Mass fraction] 98 % Keyla Meneses HYDRAULIC DREDGE OPERATOR Work Phone: [facility] 05-18-2024 08:03-0400 Systolic blood pressure 116 mm[Hg] Keyla Gideon HYDRAULIC DREDGE OPERATOR Work Phone: [facility] 04-27-2024 07:47-0400 Body mass index (BMI) [Ratio] 28.44 kg/m2 Keyla Meneses HYDRAULIC DREDGE OPERATOR Work Phone: [facility] 04-27-2024 07:47-0400 Body temperature 98.4 [degF] Keyla Meneses HYDRAULIC DREDGE OPERATOR Work Phone: [facility] 04-27-2024 07:47-0400 Body weight 77.52 kg Keyla Meneses HYDRAULIC DREDGE OPERATOR Work Phone: [facility] 04-27-2024 07:47-0400 Diastolic blood pressure 79 mm[Hg] Keyla Gideon HYDRAULIC DREDGE OPERATOR Work Phone: [facility] 04-27-2024 07:47-0400 Heart rate 92 /min Keyla Meneses HYDRAULIC DREDGE OPERATOR Work Phone: [facility] 04-27-2024 07:47-0400 SaO2% (BldA) [Mass fraction] 98 % Keyla Meneses HYDRAULIC DREDGE OPERATOR Work Phone: [facility] 04-27-2024 07:47-0400 Systolic blood pressure 119 mm[Hg] Keyla Gideon HYDRAULIC DREDGE OPERATOR Work Phone: [facility] 04-06-2024 08:16-0400 Body mass index (BMI) [Ratio] 28.42 kg/m2 Keyla Meneses HYDRAULIC DREDGE OPERATOR Work Phone: [facility] 04-06-2024 08:16-0400 Body temperature 98.91 [degF] Keyla Meneses HYDRAULIC DREDGE OPERATOR Work Phone: [facility] 04-06-2024 08:16-0400 Body weight 77.47 kg Keyla Meneses HYDRAULIC DREDGE OPERATOR Work Phone: [facility] 04-06-2024 08:16-0400 Diastolic blood pressure 84 mm[Hg] Keyla Gideon HYDRAULIC DREDGE OPERATOR Work Phone: [facility] 04-06-2024 08:16-0400 Heart rate 97 /min Keyla Meneses HYDRAULIC DREDGE OPERATOR Work Phone: [facility] 04-06-2024 08:16-0400 SaO2% (BldA) [Mass fraction] 98 % Keyla Meneses HYDRAULIC DREDGE OPERATOR Work Phone: [facility] 04-06-2024 08:16-0400 Systolic blood pressure 127 mm[Hg] Keyla Meneses HYDRAULIC DREDGE OPERATOR Work Phone: [facility] 03-06-2024 13:32-0400 Body height 165.1 cm Keyla Meneses HYDRAULIC DREDGE OPERATOR Work Phone: [facility] 03-06-2024 13:32-0400 Body mass index (BMI) [Ratio] 28.51 kg/m2 Keyla Meneses HYDRAULIC DREDGE OPERATOR Work Phone: [facility] 03-06-2024 13:32-0400 Body temperature 98.4 [degF] Keyla Meneses HYDRAULIC DREDGE OPERATOR Work Phone: [facility] 03-06-2024 13:32-0400 Body weight 77.7 kg Keyla Gideon HYDRAULIC DREDGE OPERATOR Work Phone: [facility] 03-06-2024 13:32-0400 Diastolic blood pressure 87 mm[Hg] Keyla Meneses HYDRAULIC DREDGE OPERATOR Work Phone: [facility] 03-06-2024 13:32-0400 Heart rate 96 /min Keyla Meneses HYDRAULIC DREDGE OPERATOR Work Phone: [facility] 03-06-2024 13:32-0400 SaO2% (BldA) [Mass fraction] 97 % Keyla Meneses HYDRAULIC DREDGE OPERATOR Work Phone: [facility] 03-06-2024 13:32-0400 Systolic blood pressure 138 mm[Hg] Keyla Meneses HYDRAULIC DREDGE OPERATOR Work Phone: [facility] 12-17-2023 09:01-0400 Body height 162.6 cm Amy Stackner PA Work Phone: [facility] 12-17-2023 09:01-0400 Body mass index (BMI) [Ratio] 29.52 kg/m2 Amy Chi PA Work Phone: [facility] 12-17-2023 09:01-0400 Body temperature 98.2 [degF] Amy Chi PA Work Phone: [facility] 12-17-2023 09:01-0400 Body weight 78.02 kg Amy Chi PA Work Phone: [facility] 12-17-2023 09:01-0400 Diastolic blood pressure 83 mm[Hg] Amy Chi PA Work Phone: [facility] 12-17-2023 09:01-0400 Heart rate 92 /min Amy Chi PA Work Phone: [facility] 12-17-2023 09:01-0400 Respiratory rate 18 /min Amy Chi PA Work Phone: [facility] 12-17-2023 09:01-0400 SaO2% (BldA) [Mass fraction] 99 % Amy Chi PA Work Phone: [facility] 12-17-2023 09:01-0400 Systolic blood pressure 151 mm[Hg] Amy Chi PA Work Phone: [facility] 12-07-2023 16:32-0400 Body height 162.6 cm Amy Chi PA Work Phone: [facility] 12-07-2023 16:32-0400 Body mass index (BMI) [Ratio] 29.52 kg/m2 Amy Chi PA Work Phone: [facility] 12-07-2023 16:32-0400 Body temperature 98.29 [degF] Amy Chi PA Work Phone: [facility] 12-07-2023 16:32-0400 Body weight 78.02 kg Amy Chi PA Work Phone: [facility] 12-07-2023 16:32-0400 Diastolic blood pressure 81 mm[Hg] Amy Chi PA Work Phone: [facility] 12-07-2023 16:32-0400 Heart rate 106 /min Amy Chi PA Work Phone: [facility] 12-07-2023 16:32-0400 Respiratory rate 18 /min Amy Chi PA Work Phone: [facility] 12-07-2023 16:32-0400 SaO2% (BldA) [Mass fraction] 100 % Amy Chi PA Work Phone: [facility] 12-07-2023 16:32-0400 Systolic blood pressure 126 mm[Hg] Amy Chi PA Work Phone: [facility] 10-26-2023 15:37-0500 Body height 162.6 cm Lemuel Lee MD Work Phone: [facility] 10-26-2023 15:37-0500 Body mass index (BMI) [Ratio] 30.55 kg/m2 Lemuel Lee MD Work Phone: [facility] 10-26-2023 15:37-0500 Body weight 80.74 kg Lemuel Lee MD Work Phone: [facility] 10-26-2023 15:37-0500 Diastolic blood pressure 68 mm[Hg] Lemuel Lee MD Work Phone: [facility] 10-26-2023 15:37-0500 Systolic blood pressure 112 mm[Hg] Lemuel Lee MD Work Phone: [facility] 09-29-2023 16:27-0500 Body height 162.6 cm Jelena Gomezley SILVER WRAPPER-HYDRAULIC DREDGE OPERATOR Work Phone: [facility] 09-29-2023 16:27-0500 Body mass index (BMI) [Ratio] 29.7 kg/m2 Jelena Jessica SILVER WRAPPER-HYDRAULIC DREDGE OPERATOR Work Phone: [facility] 09-29-2023 16:27-0500 Body temperature 97.39 [degF] Jelena Jessica SILVER WRAPPER-HYDRAULIC DREDGE OPERATOR Work Phone: [facility] 09-29-2023 16:27-0500 Body weight 78.47 kg Jelena Jessica SILVER WRAPPER-HYDRAULIC DREDGE OPERATOR Work Phone: [facility] 09-29-2023 16:27-0500 Diastolic blood pressure 80 mm[Hg] Jelena Jessica SILVER WRAPPER-HYDRAULIC DREDGE OPERATOR Work Phone: [facility] 09-29-2023 16:27-0500 Heart rate 89 /min Jelena Jessica SILVER WRAPPER-HYDRAULIC DREDGE OPERATOR Work Phone: [facility] 09-29-2023 16:27-0500 Respiratory rate 16 /min Jelena Jessica SILVER WRAPPER-HYDRAULIC DREDGE OPERATOR Work Phone: [facility] 09-29-2023 16:27-0500 SaO2% (BldA) [Mass fraction] 98 % Jelenaanalilia Walter SILVER WRAPPER-HYDRAULIC DREDGE OPERATOR Work Phone: [facility] 09-29-2023 16:27-0500 Systolic blood pressure 127 mm[Hg] Jelena Walter SILVER WRAPPER-HYDRAULIC DREDGE OPERATOR Work Phone: [facility] 09-01-2023 08:27-0500 Body mass index (BMI) [Ratio] 29.72 kg/m2 Татьяна Brooke HYDRAULIC DREDGE OPERATOR Work Phone: [facility] 09-01-2023 08:27-0500 Body temperature 98.01 [degF] Татьяна Brooke HYDRAULIC DREDGE OPERATOR Work Phone: [facility] 09-01-2023 08:27-0500 Body weight 81.01 kg Татьяна Brooke HYDRAULIC DREDGE OPERATOR Work Phone: [facility] 09-01-2023 08:27-0500 Diastolic blood pressure 86 mm[Hg] Татьяна Brooke HYDRAULIC DREDGE OPERATOR Work Phone: [facility] 09-01-2023 08:27-0500 Heart rate 86 /min Татьяна Brooke HYDRAULIC DREDGE OPERATOR Work Phone: [facility] 09-01-2023 08:27-0500 Respiratory rate 16 /min Татьяна Brooke HYDRAULIC DREDGE OPERATOR Work Phone: [facility] 09-01-2023 08:27-0500 SaO2% (BldA) [Mass fraction] 100 % Татьяна Brooke HYDRAULIC DREDGE OPERATOR Work Phone: [facility] 09-01-2023 08:27-0500 Systolic blood pressure 100 mm[Hg] Татьяна Brooke HYDRAULIC DREDGE OPERATOR Work Phone: [facility] 07-21-2023 15:24-0500 Body height 165.1 cm Татьяна Brooke HYDRAULIC DREDGE OPERATOR Work Phone: [facility] 07-21-2023 15:24-0500 Body mass index (BMI) [Ratio] 30.87 kg/m2 Татьяна Brooke HYDRAULIC DREDGE OPERATOR Work Phone: [facility] 07-21-2023 15:24-0500 Body temperature 98.2 [degF] Татьяна Brooke HYDRAULIC DREDGE OPERATOR Work Phone: [facility] 07-21-2023 15:24-0500 Body weight 84.14 kg Татьяна Brooke HYDRAULIC DREDGE OPERATOR Work Phone: [facility] 07-21-2023 15:24-0500 Diastolic blood pressure 82 mm[Hg] Татьяна Brooke HYDRAULIC DREDGE OPERATOR Work Phone: [facility] 07-21-2023 15:24-0500 Heart rate 107 /min Татьянаgatito Brooke HYDRAULIC DREDGE OPERATOR Work Phone: [facility] 07-21-2023 15:24-0500 Respiratory rate 16 /min Татьянаgatito Brooke HYDRAULIC DREDGE OPERATOR Work Phone: [facility] 07-21-2023 15:24-0500 SaO2% (BldA) [Mass fraction] 97 % Татьяна Brooke HYDRAULIC DREDGE OPERATOR Work Phone: [facility] 07-21-2023 15:24-0500 Systolic blood pressure 112 mm[Hg] Татьянаgatito Brooke HYDRAULIC DREDGE OPERATOR Work Phone: [facility] 01-07-2023 11:04-0400 Body height 162.5 cm Anand Cooley Other Phone: [facility] 01-07-2023 11:04-0400 Body temperature 98.96 [degF] Anand Cooley Other Phone: [facility] 01-07-2023 11:04-0400 Diastolic blood pressure 87 mm[Hg] Anand Cooley Other Phone: [facility] 01-07-2023 11:04-0400 Heart rate 122 /min Anand Cooley Other Phone: [facility] 01-07-2023 11:04-0400 Respiratory rate 16 /min Anand Cooley Other Phone: [facility] 01-07-2023 11:04-0400 SaO2% (BldA) [Mass fraction] 98 % Anand Cooley Other Phone: [facility] 01-07-2023 11:04-0400 Systolic blood pressure 144 mm[Hg] Anand Cooley Other Phone: [facility] 01-05-2023 10:10-0400 Body height 162.6 cm Amy PALMER Work Phone: [facility] 04-25-2023 10:10-0400 Body mass index (BMI) [Ratio] 29.18 kg/m2 Amy Stackner PA Work Phone: [facility] 01-05-2023 10:10-0400 Body temperature 98.6 [degF] Amy Stackner PA Work Phone: [facility] 01-05-2023 10:10-0400 Body weight 77.11 kg Amy Stackner PA Work Phone: [facility] 01-05-2023 10:10-0400 Diastolic blood pressure 74 mm[Hg] Amy Stackner PA Work Phone: [facility] 01-05-2023 10:10-0400 Heart rate 96 /min Amy Stackner PA Work Phone: [facility] 01-05-2023 10:10-0400 Respiratory rate 18 /min Amy Stackner PA Work Phone: [facility] 01-05-2023 10:10-0400 SaO2% (BldA) [Mass fraction] 99 % Amy Stackner PA Work Phone: [facility] 01-05-2023 10:10-0400 Systolic blood pressure 131 mm[Hg] Amy Stackner PA Work Phone: [facility] 10-20-2022 15:13-0500 Body height 162.6 cm Lemuel Lee MD Work Phone: [facility] 10-20-2022 15:13-0500 Body mass index (BMI) [Ratio] 30.04 kg/m2 Lemuel Lee MD Work Phone: [facility] 10-20-2022 15:13-0500 Body weight 79.38 kg Lemuel Lee MD Work Phone: [facility] 10-20-2022 15:13-0500 Diastolic blood pressure 74 mm[Hg] Lemuel Lee MD Work Phone: [facility] 02-07-2023 15:13-0500 Systolic blood pressure 110 mm[Hg] Lemuel Lee MD Work Phone: [facility] 08-13-2022 16:20-0500 Body temperature 97.59 [degF] Lemuel Lee MD Work Phone: [facility] 08-13-2022 16:20-0500 Diastolic blood pressure 74 mm[Hg] Lemuel Lee MD Work Phone: [facility] 08-13-2022 16:20-0500 Heart rate 84 /min Lemuel Lee MD Work Phone: [facility] 08-13-2022 16:20-0500 Respiratory rate 18 /min Lemuel Lee MD Work Phone: [employer] 08-13-2022 16:20-0500 SaO2% (BldA) [Mass fraction] 98 % Lemuel Lee MD Work Phone: [facility] 08-13-2022 16:20-0500 Systolic blood pressure 131 mm[Hg] Lemuel Lee MD Work Phone: [facility] 08-11-2022 04:06-0500 Body height 162.6 cm Lemuel Lee MD Work Phone: [facility] 08-11-2022 04:06-0500 Body mass index (BMI) [Ratio] 33.15 kg/m2 Lemuel Lee MD Work Phone: [facility] 08-11-2022 04:06-0500 Body weight 87.6 kg Lemuel Lee MD Work Phone: [facility] 08-05-2022 07:26-0500 Body height 162.6 cm Lemuel Lee MD Work Phone: [facility] 08-05-2022 07:26-0500 Body mass index (BMI) [Ratio] 33.13 kg/m2 Lemuel Lee MD Work Phone: [facility] 08-05-2022 07:26-0500 Body weight 87.54 kg Lemuel Lee MD Work Phone: [facility] 08-05-2022 07:26-0500 Diastolic blood pressure 72 mm[Hg] Lemuel Lee MD Work Phone: [facility] 08-05-2022 07:26-0500 Systolic blood pressure 124 mm[Hg] Lemuel Lee MD Work Phone: [facility] 07-30-2022 15:04-0500 Body height 162.6 cm Lemuel Lee MD Work Phone: [facility] 07-30-2022 15:04-0500 Body mass index (BMI) [Ratio] 32.79 kg/m2 Lemuel Lee MD Work Phone: [facility] 07-30-2022 15:04-0500 Body weight 86.64 kg Lemuel Lee MD Work Phone: [facility] 07-30-2022 15:04-0500 Diastolic blood pressure 74 mm[Hg] Lemuel Lee MD Work Phone: [facility] 07-30-2022 15:04-0500 Systolic blood pressure 134 mm[Hg] Lemuel Lee MD Work Phone: [facility] 07-23-2022 08:56-0500 Body height 162.6 cm Lemuel Lee MD Work Phone: [facility] 07-23-2022 08:56-0500 Body mass index (BMI) [Ratio] 32.61 kg/m2 Lemuel Lee MD Work Phone: [facility] 07-23-2022 08:56-0500 Body weight 86.18 kg Lemuel Lee MD Work Phone: [facility] 07-23-2022 08:56-0500 Diastolic blood pressure 82 mm[Hg] Lemuel Lee MD Work Phone: [facility] 07-23-2022 08:56-0500 Systolic blood pressure 120 mm[Hg] Lemuel Lee MD Work Phone: [facility] 07-21-2022 07:24-0500 Body height 162.6 cm Татьяна Brooke HYDRAULIC DREDGE OPERATOR Work Phone: [facility] 07-21-2022 07:24-0500 Body mass index (BMI) [Ratio] 32.56 kg/m2 Татьяна Brooke HYDRAULIC DREDGE OPERATOR Work Phone: [facility] 07-21-2022 07:24-0500 Body temperature 98.2 [degF] Татьяна Brooke HYDRAULIC DREDGE OPERATOR Work Phone: [facility] 07-21-2022 07:24-0500 Body weight 86.05 kg Татьяна Brooke HYDRAULIC DREDGE OPERATOR Work Phone: [facility] 07-21-2022 07:24-0500 Diastolic blood pressure 84 mm[Hg] Татьяна Brooke HYDRAULIC DREDGE OPERATOR Work Phone: [facility] 07-21-2022 07:24-0500 Heart rate 80 /min Татьяна Brooke HYDRAULIC DREDGE OPERATOR Work Phone: [facility] 07-21-2022 07:24-0500 Respiratory rate 16 /min Татьяна Brooke HYDRAULIC DREDGE OPERATOR Work Phone: [facility] 07-21-2022 07:24-0500 Systolic blood pressure 120 mm[Hg] Татьяна Brooke HYDRAULIC DREDGE OPERATOR Work Phone: [facility] 07-17-2022 11:14-0400 Body height 162.6 cm Lauren Perez APRN-HYDRAULIC DREDGE OPERATOR Work Phone: [facility] [facility] 07-17-2022 11:14-0400 Body mass index (BMI) [Ratio] 31.76 kg/m2 Lauren Perez APRN-HYDRAULIC DREDGE OPERATOR Work Phone: [facility] 07-17-2022 11:14-0400 Body weight 83.92 kg Lauren Perez APRN-HYDRAULIC DREDGE OPERATOR Work Phone: [facility] 07-17-2022 11:14-0400 Diastolic blood pressure 78 mm[Hg] Lauren Perez APRN-HYDRAULIC DREDGE OPERATOR Work Phone: [facility] 07-17-2022 11:14-0400 Systolic blood pressure 116 mm[Hg] Lauren Perez BIJAL-HYDRAULIC DREDGE OPERATOR Work Phone: [facility] 07-13-2022 12:49-0400 Body mass index (BMI) [Ratio] 32.54 kg/m2 Josse Walter MD Work Phone: [facility] 07-13-2022 12:49-0400 Body weight 86 kg Josse Walter MD Work Phone: [facility] 07-13-2022 12:49-0400 Diastolic blood pressure 80 mm[Hg] Josse Walter MD Work Phone: [facility] 07-13-2022 12:49-0400 Systolic blood pressure 120 mm[Hg] Josse Walter MD Work Phone: [facility] 07-09-2022 08:41-0400 Body height 162.6 cm Lemuel Lee MD Work Phone: [facility] 07-09-2022 08:41-0400 Body mass index (BMI) [Ratio] 32.27 kg/m2 Lemuel Lee MD Work Phone: [facility] 07-09-2022 08:41-0400 Body weight 85.28 kg Lemuel Lee MD Work Phone: [facility] 07-09-2022 08:41-0400 Diastolic blood pressure 62 mm[Hg] Lemuel Lee MD Work Phone: [facility] 07-09-2022 08:41-0400 Systolic blood pressure 118 mm[Hg] Lemuel Lee MD Work Phone: [facility] 06-29-2022 09:11-0400 Body height 162.6 cm Lemuel Lee MD Work Phone: [facility] 06-29-2022 09:11-0400 Body mass index (BMI) [Ratio] 31.93 kg/m2 Lemuel Lee MD Work Phone: [facility] 06-29-2022 09:11-0400 Body weight 84.37 kg Lemuel Lee MD Work Phone: [facility] 06-29-2022 09:11-0400 Diastolic blood pressure 78 mm[Hg] Lemuel Lee MD Work Phone: [facility] 06-29-2022 09:11-0400 Systolic blood pressure 120 mm[Hg] Lemuel Lee MD Work Phone: [facility] 06-25-2022 09:08-0400 Body height 162.6 cm Lemuel Lee MD Work Phone: [facility] 06-25-2022 09:08-0400 Body mass index (BMI) [Ratio] 31.58 kg/m2 Lemuel Lee MD Work Phone: 7(803)829-246070 [place] [address] 06-25-2022 09:08-0400 Body weight 83.46 kg Lemuel Lee MD Work Phone: 4(034)001-374070 [place] [address] 06-25-2022 09:08-0400 Diastolic blood pressure 78 mm[Hg] Lemuel Lee MD Work Phone: 5(365)[phone] [place] [address] 06-25-2022 09:08-0400 Systolic blood pressure 108 mm[Hg] Lemuel Lee MD Work Phone: [facility] 06-18-2022 10:06-0400 Body height 162.6 cm Lemuel Lee MD Work Phone: [facility] 06-18-2022 10:06-0400 Body mass index (BMI) [Ratio] 31.93 kg/m2 Lemuel Lee MD Work Phone: [facility] 06-18-2022 10:06-0400 Body weight 84.37 kg Lemuel Lee MD Work Phone: [facility] 06-18-2022 10:06-0400 Diastolic blood pressure 78 mm[Hg] Lemuel Lee MD Work Phone: [facility] 06-18-2022 10:06-0400 Systolic blood pressure 102 mm[Hg] Lemuel Lee MD Work Phone: [facility] 06-17-2022 14:32-0400 Diastolic blood pressure 76 mm[Hg] Татьяна Villegas RN [facility] 06-17-2022 14:32-0400 Heart rate 83 /min Татьяна Villegas RN [facility] 06-17-2022 14:32-0400 Respiratory rate 18 /min Татьяна Villegas RN [facility] 06-17-2022 14:32-0400 Systolic blood pressure 120 mm[Hg] Татьяна Villegas RN [facility] 05-22-2022 14:22-0400 Body mass index (BMI) [Ratio] 32.1 kg/m2 Josse Walter MD Work Phone: [facility] 05-22-2022 14:22-0400 Body weight 84.82 kg Josse Walter MD Work Phone: [facility] 05-22-2022 14:22-0400 Diastolic blood pressure 80 mm[Hg] Josse Walter MD Work Phone: [facility] 05-22-2022 14:22-0400 Systolic blood pressure 130 mm[Hg] Josse Walter MD Work Phone: [facility] 04-30-2022 10:12-0400 Body height 162.6 cm Lauren Perez SILVER WRAPPER-HYDRAULIC DREDGE OPERATOR Work Phone: [facility] 04-30-2022 10:12-0400 Body mass index (BMI) [Ratio] 30.55 kg/m2 Lauren Perez SILVER WRAPPER-HYDRAULIC DREDGE OPERATOR Work Phone: [facility] 04-30-2022 10:12-0400 Body weight 80.74 kg Lauren Perez SILVER WRAPPER-HYDRAULIC DREDGE OPERATOR Work Phone: [facility] 04-30-2022 10:12-0400 Diastolic blood pressure 62 mm[Hg] Lauren Perez SILVER WRAPPER-HYDRAULIC DREDGE OPERATOR Work Phone: [facility] 04-30-2022 10:12-0400 Systolic blood pressure 106 mm[Hg] Lauren Perez SILVER WRAPPER-HYDRAULIC DREDGE OPERATOR Work Phone: [facility] 04-09-2022 10:04-0400 Body mass index (BMI) [Ratio] 29.87 kg/m2 Josse Walter MD Work Phone: [facility] 04-09-2022 10:04-0400 Body weight 78.93 kg Josse Walter MD Work Phone: [facility] 04-09-2022 10:04-0400 Diastolic blood pressure 60 mm[Hg] Josse Walter MD Work Phone: [facility] 04-09-2022 10:04-0400 Systolic blood pressure 140 mm[Hg] Josse Walter MD Work Phone: [facility] 03-12-2022 15:07-0400 Body height 162.6 cm Lemuel Lee MD Work Phone: [facility] 03-12-2022 15:07-0400 Body mass index (BMI) [Ratio] 28.67 kg/m2 Lemuel Lee MD Work Phone: [facility] 03-12-2022 15:07-0400 Body weight 75.75 kg Lemuel Lee MD Work Phone: [facility] 03-12-2022 15:07-0400 Diastolic blood pressure 72 mm[Hg] Lemuel Lee MD Work Phone: [facility] 03-12-2022 15:07-0400 Systolic blood pressure 110 mm[Hg] Lemuel Lee MD Work Phone: [facility] 02-02-2022 14:47-0400 Body mass index (BMI) [Ratio] 27.67 kg/m2 Josse Walter MD Work Phone: [facility] 02-02-2022 14:47-0400 Body weight 73.12 kg Josse Walter MD Work Phone: [facility] 02-02-2022 14:47-0400 Diastolic blood pressure 80 mm[Hg] Josse Walter MD Work Phone: [facility] 02-02-2022 14:47-0400 Systolic blood pressure 110 mm[Hg] Josse Walter MD Work Phone: [facility] 01-09-2022 13:38-0400 Body height 162.6 cm Avg Chioma Gal [id number] [facility] 01-09-2022 13:38-0400 Body mass index (BMI) [Ratio] 27.46 kg/m2 Avg Chioma Gal [id number] [facility] 01-09-2022 13:38-0400 Body weight 72.58 kg Avg Chioma Gal [id number] [facility] 01-09-2022 13:38-0400 Diastolic blood pressure 78 mm[Hg] Avg Chioma Gal [id number] [facility] 01-09-2022 13:38-0400 Systolic blood pressure 120 mm[Hg] Avg Chioma Gal [id number] [facility] 12-17-2021 08:00-0400 Body height 162.6 cm Lemuel Lee MD Work Phone: [facility] 12-17-2021 08:00-0400 Body mass index (BMI) [Ratio] 26.95 kg/m2 Lemuel Lee MD Work Phone: [facility] 12-17-2021 08:00-0400 Body weight 71.22 kg Lemuel Lee MD Work Phone: [facility] 12-17-2021 08:00-0400 Diastolic blood pressure 68 mm[Hg] Lemuel Lee MD Work Phone: [facility] 12-17-2021 08:00-0400 Systolic blood pressure 122 mm[Hg] Lemuel Lee MD Work Phone: [facility] 11-24-2021 07:07-0400 Body height 162.6 cm Lemuel Lee MD Work Phone: [facility] 11-24-2021 07:07-0400 Body mass index (BMI) [Ratio] 26.43 kg/m2 Lemuel Lee MD Work Phone: [facility] 11-24-2021 07:07-0400 Body weight 69.85 kg Lemuel Lee MD Work Phone: [facility] 11-24-2021 07:07-0400 Diastolic blood pressure 68 mm[Hg] Lemuel Lee MD Work Phone: [facility] 11-24-2021 07:07-0400 Systolic blood pressure 118 mm[Hg] Lemuel Lee MD Work Phone: [facility] 01-30-2020 08:02-0400 BMI (Body Mass Index) 29.32 kg/m2 [facility] 01-30-2020 08:02-0400 Body Temperature 98.49 [degF] [facility] 01-30-2020 08:02-0400 Body weight 77.47 kg [facility] 01-30-2020 08:02-0400 BP Diastolic 70 mm[Hg] [facility] 01-30-2020 08:02-0400 BP Systolic 120 mm[Hg] [facility] 01-30-2020 08:02-0400 Height 162.6 cm [facility] 01-30-2020 08:02-0400 Pulse (Heart Rate) 88 /min [facility] 01-30-2020 08:02-0400 Respiratory Rate 14 /min [facility] 10-12-2019 16:36-0500 BMI (Body Mass Index) 30.93 kg/m2 [facility] 10-12-2019 16:36-0500 Body Temperature 98.4 [degF] [facility] 10-12-2019 16:36-0500 Body weight 81.74 kg [facility] 10-12-2019 16:36-0500 BP Diastolic 80 mm[Hg] [facility] 10-12-2019 16:36-0500 BP Systolic 110 mm[Hg] [facility] 10-12-2019 16:36-0500 Height 162.6 cm [facility] 10-12-2019 16:36-0500 Pulse (Heart Rate) 92 /min [facility] 10-12-2019 16:36-0500 Respiratory Rate 16 /min [facility] 09-25-2019 17:06-0500 BMI (Body Mass Index) 31.58 kg/m2 [facility] 09-25-2019 17:06-0500 Body Temperature 98.4 [degF] [facility] 09-25-2019 17:06-0500 Body weight 83.46 kg [facility] 09-25-2019 17:06-0500 BP Diastolic 80 mm[Hg] [facility] 09-25-2019 17:06-0500 BP Systolic 130 mm[Hg] [facility] 09-25-2019 17:06-0500 Height 162.6 cm [facility] 09-25-2019 17:06-0500 Pulse (Heart Rate) 82 /min [facility] 09-25-2019 17:06-0500 Respiratory Rate 16 /min [facility] 01-21-2018 12:52-0400 Body Temperature 98.1 [degF] Anand [facility] 01-21-2018 12:52-0400 BP Diastolic 70 mm[Hg] Anand [facility] 01-21-2018 12:52-0400 BP Systolic 118 mm[Hg] Anand [facility] 01-21-2018 12:52-0400 Pulse (Heart Rate) 70 /min Anand [facility] 01-21-2018 12:52-0400 Respiratory Rate 16 /min Anand [facility] 01-21-2018 12:52-0400 Weight 78.29 kg [facility] Encounters Encounter Date Encounter Type Care Provider Facility Start: 08-10-2025 ambulatory Keyla Meneses Facilit y:[facility] Start: 07-27-2025 ambulatory Keyla Meneses Facilit y:[facility] Start: 07-24-2025 End: 07-24-2025 ambulatory Keyla Meneses Facility:[facility] Start: 07-20-2025 End: 07-20-2025 ambulatory Emmanuelle Contreras Facility:[facility] Start: 07-17-2025 End: 07-17-2025 ambulatory Emmanuelle Contreras Facility:[facility] Start: 07-16-2025 ambulatory KEYLA MENESES [facility] Ambulatory Start: 07-13-2025 End: 07-13-2025 ambulatory Keyla Meneses Facility:[facility] Start: 07-13-2025 ambulatory Keyla Meneses Facilit y:[facility] Start: 07-10-2025 End: 07-10-2025 ambulatory Emma Bianca Facility:[facility] Start: 07-05-2025 End: 07-05-2025 Orders Only Keyla Meneses HYDRAULIC DREDGE OPERATOR Work Phone: [facility] Comment on above: Anxiety and depressi on (Primary Dx) Start: 06-26-2025 End: 06-30-2025 ambulatory KEYLA MENESES [facility] Start: 06-25-2025 End: 06-25-2025 Patient encounter procedure Nel HANSEN -[facility] Work Phone: Start: 06-25-2025 End: 06-25-2025 ambulatory Keyla Meneses CLIENT MANAGER-C Work Phone: [facility] Start: 06-13-2025 End: 06-13-[address] Emmanuelle Contreras DO -[facility] Work Phone: Start: 06-13-2025 End: 06-13-2025 ambulatory Keyla Meneses CLIENT MANAGER-C Work Phone: -[facility] Start: 06-12-2025 End: 06-13-2025 ambulatory ROSHNI DAVIDSON [facility] Start: 05-22-2025 End: 05-22-2025 Patient encounter procedure Emma Bianca CLIENT MANAGER-C -[facility] Work Phone: Start: 05-22-2025 End: 05-22-2025 ambulatory Keyla Meneses CLIENT MANAGER-C Work Phone: -[facility] Start: 04-27-2025 End: 04-27-2025 Patient encounter procedure Nel HANSEN -[facility] Work Phone: Start: 04-27-2025 End: 04-27-2025 ambulatory Keyla Era Meneses CLIENT MANAGER-C Work Phone: -[facility] Start: 04-10-2025 End: 04-10-2025 ambulatory EMMANUELLE HERNÁNDEZ [facility] Start: 03-30-2025 End: 03-30-[address] Ayala Thompson MD -[facility] Work Phone: Start: 03-30-2025 End: 03-30-2025 ambulatory Keyla Era Gideon CLIENT MANAGER-C Work Phone: -[facility] Start: 03-26-2025 End: 03-26-2025 Office outpatient visit 15 minutes Upsol Fuentes MD Work Phone: [facility] Comment on above: Unspecified mood (af fective) disorder (HCC) (Primary Dx) Start: 03-26-2025 End: 03-26-2025 ambulatory KEYLA KEOLIZ GIDEON [facility] Start: 03-05-2025 ambulatory KEYLA LONNAE GIDEON [facility] Ambulatory Start: 03-01-2025 End: 03-01-[address] Emmanuelle Contreras DO -[facility] Work Phone: Start: 03-01-2025 End: 03-01-2025 ambulatory Keyla Meneses CLIENT MANAGER-C Work Phone: [facility] Work Phone: Start: 03-01-2025 End: 03-01-2025 ambulatory Keyla L Gideon Facility:[facility] Start: 01-22-2025 ambulatory KEYLA HERBIE GIDEON [facility] Start: 01-18-2025 End: 01-18-2025 ambulatory Keylasusan Meneses CLIENT MANAGER-C Work Phone: [facility] Work Phone: Start: 01-18-2025 End: 01-18-2025 Patient encounter procedure Nel HANSENM -Laboratory, Specimen Work Phone: Start: 01-18-2025 End: 01-18-2025 Patient encounter procedure Nel Speedy [facility] Work [facility]: Start: 01-18-2025 End: 01-18-2025 ambulatory Keyla Meneses Facility:[facility] Start: 01-18-2025 End: 01-18-2025 ambulatory Keyla Meneses Facility:[facility] Start: 01-02-2025 End: 01-02-2025 ambulatory Keyla Meneses Facility:[facility] Start: 01-02-2025 End: 01-02-2025 Patient encounter procedure Emma Valenzuela CLIENT MANAGER-C -[facility] Work Phone: Start: 12-25-2024 End: 12-25-2024 Office outpatient visit 25 minutes Anna Fuentes MD Work Phone: [facility] Comment on above: Unspecified mood (af fective) disorder (HCC) (Primary Dx); as incidental finding Start: 12-25-2024 End: 12-25-2024 ambulatory [facility] Start: 11-09-2024 End: 11-09-2024 Patient encounter procedure Antonio Lopez PA-C Work Phone: [facility] Comment on above: Acute rhinosinusitis (Primary Dx) Start: 11-09-2024 End: 11-09-2024 ambulatory ANAND EDMOND [facility] Start: 10-02-2024 End: 10-02-2024 Refill Anna Fuentes MD Work Phone: [facility] Start: 07-27-2024 End: 07-27-2024 Refill Anna Fuentes MD Work Phone: [facility] Start: 06-15-2024 End: 06-19-2024 ambulatory KEYLA MEYER [facility] Start: 05-19-2024 End: 05-19-2024 Documentation procedure Sussy Degroot MA [facility] Comment on above: Care coordination BH P Start: 05-18-2024 End: 05-18-2024 Office outpatient visit 15 minutes Keyla Meneses HYDRAULIC DREDGE OPERATOR Work Phone: [facility] Comment on above: Anxiety and depressi on (Primary Dx) Start: 05-05-2024 End: 05-05-2024 Documentation procedure Sussy Degroot MA [facility] Comment on above: Care coordination P Start: 04-28-2024 End: 04-28-2024 Documentation procedure Sussy Degroot MA [facility] Comment on above: Care coordination P Start: 04-27-2024 End: 04-27-2024 Office outpatient visit 15 minutes Keyla Meneses HYDRAULIC DREDGE OPERATOR Work Phone: [facility] Comment on above: Anxiety and depressi on (Primary Dx) Start: 04-25-2024 End: 04-29-2024 ambulatory KEYLA MENESES [facility] Start: 04-06-2024 End: 04-06-2024 Office outpatient visit 15 minutes Keyla Meneses HYDRAULIC DREDGE OPERATOR Work Phone: [facility] Comment on above: Anxiety (Primary Dx) ; Chronic fatigue Start: 03-06-2024 End: 03-06-2024 Office outpatient visit 15 minutes Keyla Meneses HYDRAULIC DREDGE OPERATOR Work Phone: [facility] Comment on above: Anxiety (Primary Dx) Start: 12-17-2023 End: 12-17-2023 Office outpatient visit 15 minutes Amy PALMER Work Phone: [facility] Comment on above: Acute non-recurrent frontal sinusitis (Primary Dx) Start: 12-13-2023 ambulatory FABIÁN GREEN [facility] Start: 12-07-2023 ambulatory AMY [facility] Start: 12-07-2023 End: 12-07-2023 Office outpatient visit 15 minutes Татьяна Brooke HYDRAULIC DREDGE OPERATOR Work Phone: [facility] Comment on above: Sore throat (Primary Dx) Start: 10-26-2023 ambulatory ANAND COOLEY [facility] Start: 10-26-2023 Encounter for gynecological examination (general) (routine) without abnormal findings LEMUEL LEE [facility] Start: 10-26-2023 End: 10-26-2023 Patient encounter procedure Lemuel Lee MD Work Phone: [facility] Work Phone: Start: 10-26-2023 End: 10-26-2023 Periodic preventive med est patient 18-39 yrs Lemuel Lee MD Work Phone: [facility] BRAKE REPAIRER HYDRAULIC Comment on above: Well woman exam with routine gynecological exam (Primary Dx); Cervical cancer screening Start: 09-29-2023 ambulatory ANAND Yoder [facility] Start: 09-29-2023 End: 09-29-2023 Office outpatient visit 15 minutes Jelena Walter APRN-HYDRAULIC DREDGE OPERATOR Work Phone: [facility] Comment on above: Acute bronchitis, un specified organism (Primary Dx); Acute cough Start: 09-01-2023 End: 09-01-2023 Office outpatient visit 25 minutes Татьяна Brooke CNP Work Phone: [facility] Comment on above: Anxiety (Primary Dx) Start: 07-21-2023 End: 07-21-2023 Initial preventive medicine new pt age 18-39yrs Татьяна Brooke CNP Work Phone: [facility] Comment on above: Preventative health care (Primary Dx); Anxiety Start: 07-21-2023 End: 07-21-2023 Patient encounter status Татьяна Brooke CNP Work Phone: [facility] Work Phone: Start: 07-09-2023 ambulatory ANAND [facility] Start: 07-06-2023 ambulatory ANAND [facility] Start: 04-01-2023 ambulatory [facility] Start: 01-07-2023 End: 01-07-2023 Emergency department patient visit Marie Fabiano [place] [id number] Start: 01-05-2023 ambulatory SELF SELF [facility] Start: 01-05-2023 End: 01-05-2023 Office outpatient visit 15 minutes Amy PALMER Work Phone: [facility] Comment on above: Viral URI with cough (Primary Dx); Acute cough Start: 12-31-2022 End: 12-31-2022 Emergency department patient visit Marie Mario [facility] Start: 10-20-2022 End: 10-20-2022 Office outpatient visit 10 minutes Lemuel Lee MD Work Phone: [facility] BRAKE REPAIRER HYDRAULIC Comment on above: Disruption of episio keyanna wound in the puerperium (Primary Dx) Start: 08-11-2022 End: 08-13-2022 Evaluation and management of inpatient Lemuel Lee MD Work Phone: [facility] Comment on above: Encounter for induct ion of labor Start: 08-05-2022 End: 08-05-2022 Subsequent care visit Lemuel Lee MD Work Phone: [employer] BRAKE REPAIRER HYDRAULIC Comment on above: Diet controlled gest ational diabetes mellitus (GDM) in third trimester (Primary Dx); Supervision of high risk in third trimester; 37 weeks gestation of Start: 07-30-2022 End: 07-30-2022 Subsequent care visit Lemuel Lee MD Work Phone: [employer] BRAKE REPAIRER HYDRAULIC Comment on above: Diet controlled gest ational diabetes mellitus (GDM) in third trimester (Primary Dx); Supervision of high risk in third trimester; 37 weeks gestation of Start: 07-23-2022 End: 07-23-2022 Subsequent care visit Lemuel Lee MD Work Phone: [facility] BRAKE REPAIRER HYDRAULIC Comment on above: Diet controlled gest ational diabetes mellitus (GDM) in third trimester (Primary Dx); Supervision of high risk in third trimester; 36 weeks gestation of Start: 07-21-2022 End: 07-21-2022 Patient encounter status Татьяна Brooke CNP Work Phone: [facility] Start: 07-21-2022 End: 07-21-2022 Periodic preventive med est patient 18-39 yrs Татьяна Brooke HYDRAULIC DREDGE OPERATOR Work Phone: [facility] Comment on above: Preventative health care (Primary Dx) Start: 07-17-2022 End: 07-17-2022 Subsequent care visit Lauren Perez SILVER WRAPPER-HYDRAULIC DREDGE OPERATOR Work Phone: [facility] BRAKE REPAIRER HYDRAULIC Comment on above: Supervision of high risk in third trimester (Primary Dx); Diet controlled gestational diabetes mellitus (GDM) in third trimester; 35 weeks gestation of Start: 07-13-2022 End: 07-13-2022 Subsequent care visit Josse Walter MD Work Phone: [facility] BRAKE REPAIRER HYDRAULIC Comment on above: RUQ pain (Primary Dx ); Abnormal maternal glucose tolerance, antepartum; Diet controlled gestational diabetes mellitus (GDM) in third trimester Start: 07-09-2022 End: 07-09-2022 Subsequent care visit Lemuel Lee MD Work Phone: [facility] BRAKE REPAIRER HYDRAULIC Comment on above: Diet controlled gest ational diabetes mellitus (GDM) in third trimester (Primary Dx); Encounter for supervision of high risk in third trimester, antepartum; 34 weeks gestation of Start: 06-29-2022 End: 06-29-2022 Subsequent care visit Lemuel Lee MD Work Phone: [facility] BRAKE REPAIRER HYDRAULIC Comment on above: Diet controlled gest ational diabetes mellitus (GDM) in third trimester (Primary Dx); Encounter for supervision of high risk in third trimester, antepartum; 32 weeks gestation of Start: 06-25-2022 End: 06-25-2022 Subsequent care visit Josse Walter MD Work Phone: [facility] BRAKE REPAIRER HYDRAULIC Comment on above: Diet controlled gest ational diabetes mellitus (GDM) in third trimester (Primary Dx); Encounter for supervision of high risk in third trimester, antepartum; 32 weeks gestation of Start: 06-18-2022 End: 06-18-2022 Subsequent care visit Lemuel Lee MD Work Phone: [facility] BRAKE REPAIRER HYDRAULIC Comment on above: Diet controlled gest ational diabetes mellitus (GDM) in third trimester (Primary Dx); Encounter for supervision of high risk in third trimester, antepartum; 31 weeks gestation of ; Ultrasound scan done for inability to hear heart tones Start: 06-18-2022 End: 06-18-2022 Subsequent hospital visit by physician Lemuel Lee MD Work Phone: [facility]TR[facility] Start: 06-17-2022 End: 06-17-2022 Nutrition therapy Lemuel Lee MD Work Phone: [facility] Nutritional Services Comment on above: Diet controlled gest ational diabetes mellitus (GDM), antepartum (Primary Dx) Start: 06-16-2022 End: 06-16-2022 Nutrition therapy Lemuel Lee MD Work Phone: [facility] Comment on above: Diet controlled gest ational diabetes mellitus (GDM), antepartum Start: 06-15-2022 End: 06-15-2022 Subsequent hospital visit by physician Lemuel Lee MD Work Phone: [facility] Production Editor Comment on above: Arrived Start: 05-22-2022 End: 05-22-2022 Subsequent care visit Josse Walter MD Work Phone: [facility] BRAKE REPAIRER HYDRAULIC Comment on above: Decreased move ments in second trimester, single or unspecified fetus (Primary Dx) Start: 04-30-2022 End: 04-30-2022 Subsequent care visit Lemuel Lee MD Work Phone: [facility] BRAKE REPAIRER HYDRAULIC Comment on above: Encounter for superv ision of normal first in second trimester (Primary Dx); 24 weeks gestation of Start: 04-30-2022 End: 04-30-2022 Subsequent hospital visit by physician Josse Walter MD Work Phone: [facility] Start: 04-09-2022 End: 04-09-2022 Subsequent care visit Josse Walter MD Work Phone: [facility] BRAKE REPAIRER HYDRAULIC Comment on above: care in sec ond trimester (Primary Dx) Start: 04-09-2022 End: 04-09-2022 Subsequent hospital visit by physician Lemuel Lee MD Work Phone: [facility] Start: 03-12-2022 End: 03-12-2022 Subsequent care visit Lemuel Lee MD Work Phone: [employer] BRAKE REPAIRER HYDRAULIC Comment on above: Encounter for superv ision [...] care visit Josse Walter MD Work Phone: [employer] BRAKE REPAIRER HYDRAULIC Comment on above: Dysuria (Primary Dx) Start: 01-26-2022 End: 01-26-2022 Subsequent hospital visit by physician Josse Walter MD Work Phone: [facility] Start: 01-09-2022 End: 01-09-2022 Office outpatient visit 5 minutes Lemuel Lee MD Work Phone: [employer] BRAKE REPAIRER HYDRAULIC Comment on above: 8 weeks gestation of (Primary Dx) Start: 12-17-2021 End: 12-17-2021 Office outpatient visit 15 minutes Lemuel Lee MD Work Phone: [employer] BRAKE REPAIRER HYDRAULIC Comment on above: Pelvic pain in pregn deonna, antepartum, first trimester (Primary Dx) Start: 11-24-2021 End: 11-24-2021 Office outpatient visit 15 minutes Lemuel Lee MD Work Phone: [employer] BRAKE REPAIRER HYDRAULIC Comment on above: Infertility associat ed with anovulation (Primary Dx) Start: 01-30-2020 End: 01-30-2020 Office outpatient visit 25 minutes Татьяна Brooke Work Phone: [facility] Comment on above: Weight gain (Primary Dx); PCOS (polycystic ovarian syndrome) Start: 10-12-2019 End: 10-12-2019 Office outpatient visit 25 minutes Татьяна Brooke Work Phone: [facility] Comment on above: PCOS (polycystic ova chandler syndrome) (Primary Dx) Start: 09-25-2019 End: 09-25-2019 Office outpatient visit 25 minutes Татьяна Brooke Work Phone: [facility] Comment on above: Weight gain (Primary Dx) Start: 01-31-2019 End: 02-04-2019 Patient encounter procedure ANAND COOLEY [facility] Start: 01-21-2018 End: 01-21-2018 Office/outpatient visit, est, level 3 Anand Herrmannwell Work Phone: [facility] Start: 08-31-2017 End: 08-31-2017 Emergency department patient visit Michael Aisha Facility:[facility] Date Procedure Procedure Detail Performing Clinician Start: 06-13-2025 Serologic test for syphilis Keyla Meneses CLIENT MANAGER-C Work Phone: Start: 03-01-2025 Hepatitis C antibody measurement Keylasusan Meneses CLIENT MANAGER-C Work Phone: Comment on above: Reactive: Presumptiv e evidence of antibodies to HCV. Follow CDC recommendations for supplemental testing.Non-Reactive: Antibodies to HCV were not detected; does not exclude the possibility of exposure to HCVReactive Results are presumptive evidence of antibodies to HCV. Follow CDC recommendations for supplemental testing.Order confirmation testing: HCV Quant by PCR testing - HCVPCR #[id number] Non Reactive: < 0.8 Equivocal: >/= 0.8 to < 1.0 Reactive: >/= 1.0The CDC requires that a reactive/equivocal HCV antibody result be sent out for confirmation. HCV Quant by PCR testing. Start: 03-01-2025 Procedure Keyla Winn CLIENT MANAGER-C Work Phone: Start: 03-01-2025 Rubella IgG measurement eKyla Meneses CLIENT MANAGER-C Work Phone: Comment on above: Antibody Result: Int erpretationNon-Reactive: Non- ImmuneReactive: ImmuneThe following results were obtained with the [employer] Rubella IgG assay. Results from assays of other manufacturers cannot be used interchangeably. Start: 03-01-2025 Serologic test for syphilis Keyla Meneses CLIENT MANAGER-C Work Phone: Start: 01-18-2025 Urine culture Keyla zavaletamoe CLIENT MANAGER-C Work Phone: Start: 12-25-2024 Gonadotropin chorion ic qualitative Anna Fuentes MD Work Phone: Start: 06-15-2024 Lipid 1996 panel - S jai or Plasma Anna Fuentes MD Work Phone: Start: 12-07-2023 Iaadiadoo streptococ cus group a Amy PALMER Work Phone: Start: 10-26-2023 Microscopic observat ion [Identifier] in Cervix by Cyto stain Keyla Meneses HYDRAULIC DREDGE OPERATOR Work Phone: Start: 09-29-2023 Iaadiadoo influenza Benita alin Kiko Jessica [facility] Work Phone: Start: 09-29-2023 SARS-CoV-2 (COVID-19 ) RNA [Presence] in Unspecified specimen by NELLY with probe detection Jelena Walter [facility] Work Phone: Start: 07-21-2023 Adult depression scr eening assessment Татьяна Brooke [facility] Work Phone: Start: 09-21-2022 Microscopic observat ion [Identifier] in Cervix by Cyto stain Татьяна Brooke [facility] Work Phone: Start: 08-12-2022 Blood count [...] Adult depression scr eening assessment Татьяна Brooke HYDRAULIC DREDGE OPERATOR Work Phone: Start: 07-17-2022 Hemoglobin glycosylated a1c Lauren Luna Ana SILVER WRAPPER-HYDRAULIC DREDGE OPERATOR Work Phone: Start: 07-17-2022 nonstress test Sh nusrat Zunigaam SILVER WRAPPER-HYDRAULIC DREDGE OPERATOR Work Phone: Start: 07-13-2022 Complete blood [...] 1 4 wk transabdl 09/13 gestat Josse Waltre MD Work Phone: Start: 01-26-2022 Us uterus 1 4 wk transabdl 09/13 gestat Josse Walter MD Work Phone: Start: 01-09-2022 RAPID TOX SCREEN WIT H RELEX TO [facility] Josse Walter MD Work [...] or 75+ (1 - 1-dose 75+ series) [facility] Start: 2070 RSV Vaccines (1 - 1-dose 75+ series) RSV Vaccines (1 - 1-dose 75+ series) [facility] Start: 2045 Administration of herpes zoster vaccine Zoster Vaccines (1 of 2) [facility] Start: 2045 Zoster Vaccines (1 of 2) Zoster Vaccines (1 of 2) [facility] Start: 06-15-2029 Lipid panel Lipid Panel [facility] Start: 10-26-2026 Screening for malignant neoplasm of cervix [facility] Start: 09-21-2025 Screening for malignant neoplasm of cervix Pap Smear [facility] Start: 06-26-2025 End: 06-26-2025 Patient encounter procedure 06/26/2025 2:30 PM EDT Office Visit [facility] [address] [place] [address] Anna Fuentes MD [address] [address] [facility] Start: 05-14-2025 COVID-19 Vaccine ( season) COVID-19 Vaccine ( season) [facility] Start: 05-14-2025 Influenza vaccination [facility] Start: 03-27-2025 End: 03-27-2025 Patient encounter procedure 03/27/2025 2:00 PM EDT Office Visit [facility] [address] [place] [address] Anna Fuentes MD [address] [place] [address] [facility] Start: 03-10-2025 COVID-19 Vaccine ( season) COVID-19 Vaccine ( season) [facility] Comment on above: Postponed from 05/14/2023 (Treatment Not Available) Start: 03-06-2025 Depression screening using PHQ-9 (Patient Health Questionnaire 9) score Depression Screening/Follow-Up (PHQ-2/9) [facility] Start: 2025 Screening for malignant neoplasm of cervix HPV/Cotest [facility] Start: 11-01-2024 End: 11-01-2024 Patient encounter procedure 11/01/2024 2:50 PM EST Office Visit [facility] BRAKE REPAIRER HYDRAULIC [address] [address] Lemuel Lee MD [address] [facility] [address] [place] [phone] [facility] BRAKE REPAIRER HYDRAULIC Start: 10-26-2024 History and physical examination, annual for health maintenance Wellness Visit [facility] Start: 10-26-2024 Screening for malignant neoplasm of cervix CERVICAL CANCER SCREENING DISCUSSION [facility] Start: 07-21-2024 Depression screening using PHQ-9 (Patient Health Questionnaire 9) score Depression Screening (PHQ-2/9) [facility] Start: 07-21-2024 History and physical examination, annual for health maintenance Wellness Visit [facility] Start: 06-09-2024 End: 06-09-2024 Patient encounter procedure 06/09/2024 1:00 PM EDT Initial consult [facility] [address] [place] [phone] Keyla Meneses, HYDRAULIC DREDGE OPERATOR [address] [place] [address] Anna Fuentes MD [address] [place] [address] [facility] Start: 05-18-2024 End: 05-18-2024 Patient encounter procedure 05/18/2024 8:00 AM EDT Office Visit [facility] [address] [place] [facility] [place] [place] [address] Keyla Meneses CNP [address] [place] [address] [facility] Start: 05-14-2024 COVID-19 Vaccine ( season) COVID-19 Vaccine ( season) [facility] Start: 05-14-2024 COVID-19 Vaccine ( season) COVID-19 Vaccine () [facility] Start: 05-14-2024 Influenza vaccination [facility] Start: 04-27-2024 End: 04-27-2024 Patient encounter procedure 04/27/2024 8:00 AM EDT Office Visit [facility] [address] [place] [facility] [place] [place] [address] Keyla Meneses, MED [address] [place] [address] [facility] Start: 04-06-2024 End: 04-06-2024 Patient encounter procedure 04/06/2024 8:30 AM EDT Office Visit [facility] [address] [place] [facility] [address] Keyla Meneses HYDRAULIC DREDGE OPERATOR [address] [place] [facility] [place] [address] [facility] Start: 03-12-2024 Influenza vaccination Sequential Influenza Vaccine (#1) [facility] Comment on above: Postponed from 05/14/2023 (Patient Refus ed) Start: 12-07-2023 End: 12-06-2024 [facility] Comment on above: Expected: 12/07/2023, Expires: Start: 12-01-2023 End: 12-01-2023 Patient encounter procedure 12/01/2023 8:30 AM EDT Office Visit [facility] [address] [place] [address] Татьяна Brooke, HYDRAULIC DREDGE OPERATOR [address] [place] [address] [facility] Start: 10-26-2023 End: 10-26-2023 Patient encounter procedure [facility] BRAKE REPAIRER HYDRAULIC Start: 10-26-2023 End: 10-26-2024 [facility] CYTOLOGY-TELEVISION PARTS TESTER, LIQUID BASED [facility] CYTOLOGY-TELEVISION PARTS TESTER, LIQUID BASED Cytology Routine Well woman exam with routine gynecological exam Cervical cancer screening Expected: 10/26/2023, Expires: 10/26/2024 [facility] Comment on above: Expected: 10/26/2023, Expires: Start: 09-21-2023 Screening for malignant neoplasm of cervix CERVICAL CANCER SCREENING DISCUSSION [facility] Start: 09-01-2023 End: 09-01-2023 Patient encounter procedure 09/01/2023 8:30 AM EST Office Visit [facility] [address] [place] [address] Татьяна Brooke, HYDRAULIC DREDGE OPERATOR [address] [place] [address] [facility] Start: 07-21-2023 Depression screening using PHQ-9 (Patient Health Questionnaire 9) score Depression Screening (PHQ-2/9) [facility] Start: 07-21-2023 History and physical examination, annual for health maintenance Wellness Visit [facility] Start: 05-14-2023 COVID-19 VACCINE ( season) COVID-19 VACCINE () [facility] Start: 05-14-2023 Influenza vaccination [facility] [employer] Start: 01-26-2023 GONORRHEA SCREEN GONORRHEA SCREEN [facility] Start: 01-26-2023 Screening for Chlamydia trachomatis CHLAMYDIA SCREEN [facility] Start: 10-22-2022 History and physical examination, annual for health maintenance Wellness Visit [facility] Start: 10-22-2022 Screening for malignant neoplasm of cervix CERVICAL CANCER SCREENING DISCUSSION [facility] Start: 08-05-2022 End: 08-05-2022 Follow-up encounter 08/05/2022 Follow Up Visit BRAKE REPAIRER HYDRAULIC Lemuel Lee MD [address] [place] [phone] [facility] BRAKE REPAIRER HYDRAULIC Start: 07-30-2022 End: 07-30-2022 Follow-up encounter 07/30/2022 Follow Up Visit BRAKE REPAIRER HYDRAULIC Lemuel Lee MD [address] [place] [address] [facility] BRAKE REPAIRER HYDRAULIC Start: 07-23-2022 End: 07-23-2022 Follow-up encounter 07/23/2022 Follow Up Visit BRAKE REPAIRER HYDRAULIC Lemuel Lee MD [address] [place] [address] [facility] BRAKE REPAIRER HYDRAULIC Start: 07-17-2022 End: 07-17-2023 BETA STREP, VAGINAL SCREEN [facility] Comment on above: Expected: 07/17/2022, Expires: Start: 07-17-2022 End: 07-17-2022 Follow-up encounter 07/17/2022 Follow Up Visit BRAKE REPAIRER HYDRAULIC Lauren Perez APRN-HYDRAULIC DREDGE OPERATOR [id number] [place] [address] [facility] BRAKE REPAIRER HYDRAULIC Start: 07-17-2022 End: 07-17-2022 Patient encounter procedure 07/17/2022 Appointment Ultrasound Lauren Perez APRN-HYDRAULIC DREDGE OPERATOR [id number] [place] [address] [facility]TR[facility] Start: 07-09-2022 End: 07-09-2023 OB ultrasound panel US OB GROWTH/DATING > 14WEEKS Imaging Routine Diet controlled gestational diabetes mellitus (GDM) in third trimester Expected: 07/09/2022, Expires: 07/09/2023 [facility] Comment on above: Expected: 07/09/2022, Expires: Start: 07-09-2022 End: 07-09-2022 Follow-up encounter 07/09/2022 Follow Up Visit BRAKE REPAIRER HYDRAULIC Lemuel Lee MD [address] [place] [address] [facility] BRAKE REPAIRER HYDRAULIC Start: 07-07-2022 End: 07-07-2022 Telemedicine consultation with patient 07/07/2022 Telemedicine Telephone Nutrition Lemuel Lee MD [address] [place], [place] [phone] Татьяна Villegas RN [facility] Start: 06-30-2022 End: 06-30-2022 Telemedicine consultation with patient 06/30/2022 Telemedicine Nutrition Lemuel Lee MD [address] [place], [place] [phone] Marianna Aguilar, LEANDRO [facility] Start: 06-29-2022 End: 06-29-2022 Follow-up encounter 06/29/2022 Follow Up Visit BRAKE REPAIRER HYDRAULIC Lemuel Lee MD [address] [place] [address] [facility] BRAKE REPAIRER HYDRAULIC Start: 06-25-2022 End: 06-25-2022 Follow-up encounter 06/25/2022 Follow Up Visit BRAKE REPAIRER HYDRAULIC Josse Walter MD [address] [place] [address] Lemuel Lee MD [address] [place] [address] [facility] BRAKE REPAIRER HYDRAULIC Start: 06-18-2022 End: 06-18-2022 Follow-up encounter 06/18/2022 Follow Up Visit BRAKE REPAIRER HYDRAULIC Lemuel Lee MD [address] [place] [phone] [facility] BRAKE REPAIRER HYDRAULIC Start: 06-18-2022 End: 06-18-2022 Patient encounter procedure 06/18/2022 Appointment Ultrasound Lemuel Lee MD [address] [place] [address], [place] [address] [facility] Start: 06-17-2022 End: 06-17-2022 Nutrition therapy 06/17/2022 Nutrition Nutrition Татьяна Villegas RN [facility] Start: 06-11-2022 End: 06-11-2022 Follow-up encounter 06/11/2022 Follow Up Visit BRAKE REPAIRER HYDRAULIC Josse Walter MD [address] [facility] [address] [place] [address], [place] [phone] [facility] BRAKE REPAIRER HYDRAULIC Start: 06-03-2022 End: 06-03-2022 Patient encounter procedure 06/03/2022 Appointment Ultrasound Tristan Samuel MD [address] [place] [address] Lemuel Lee MD [address] [facility] [address] [place] [phone] [facility] Start: 05-28-2022 End: 05-28-2022 Follow-up encounter 05/28/2022 Follow Up Visit BRAKE REPAIRER HYDRAULIC Lemuel Lee MD [address] [place] [address], [place] [phone] [facility] BRAKE REPAIRER HYDRAULIC Start: 05-14-2022 Influenza vaccination [facility] Sy[facility] Start: 04-30-2022 End: 04-30-2022 Follow-up encounter 04/30/2022 Follow Up Visit BRAKE REPAIRER HYDRAULIC Lemuel Lee MD [address] [place] [address] [facility] BRAKE REPAIRER HYDRAULIC Start: 04-30-2022 End: 04-30-2022 Patient encounter procedure 04/30/2022 Appointment Ultrasound Josse Walter MD [address] [place] [address], [place] [address] [facility] Start: 04-09-2022 End: 04-09-2022 Follow-up encounter 04/09/2022 Follow Up Visit BRAKE REPAIRER HYDRAULIC Josse Walter MD [address] [place] [address] [facility] BRAKE REPAIRER HYDRAULIC Start: 04-09-2022 End: 04-09-2022 Patient encounter procedure 04/09/2022 Appointment Ultrasound Lemuel Lee MD [address] [place] [address], [place] [address] [facility] Start: 03-12-2022 End: 03-12-2022 Follow-up encounter 03/12/2022 Follow Up Visit BRAKE REPAIRER HYDRAULIC Lemuel Lee MD [address] [place] [address], [place] [address] [facility] BRAKE REPAIRER HYDRAULIC Start: 03-12-2022 End: 03-12-2022 Patient encounter procedure 03/12/2022 Appointment Ultrasound Lemuel Lee MD [address] [place] [address], [place] [address] [facility] Start: 03-12-2022 End: 03-12-2023 [id number] [Presence] in Serum or Plasma [facility] Comment on above: Expected: 03/12/2022, Expires: Start: 2022 Vaccination for human papillomavirus HPV Vaccines (1 - 3-dose SCDM series) [facility] Start: 01-26-2022 End: 01-26-2022 Follow-up encounter 01/26/2022 Follow Up Visit BRAKE REPAIRER HYDRAULIC Josse Walter MD [address] [place] [address] [facility] BRAKE REPAIRER HYDRAULIC Start: 01-26-2022 End: 01-26-2022 Patient encounter procedure 01/26/2022 Appointment Ultrasound Josse Walter MD [address] [place] [address] [facility] Start: 01-09-2022 End: 01-09-2023 Bacteria identified in Urine by Culture [facility] Comment on above: Expected: 01/09/2022, Expires: 3 Start: 01-09-2022 End: 01-09-2022 Clinical Support Encounter 01/09/2022 Clinical Support Encounter BRAKE REPAIRER HYDRAULIC [facility] BRAKE REPAIRER HYDRAULIC Start: 01-09-2022 End: 01-09-2023 HEPATITIS B SURFACE ANTIGEN [facility] Work Phone: Comment on above: Expected: 01/09/2022, Expires: 3 Start: 01-09-2022 End: 01-09-2023 OB ultrasound panel US OB DATING ABDOMINAL < 14WEEKS Imaging Routine 8 weeks gestation of Expected: 01/09/2022, Expires: 01/09/2023 [facility] Comment on above: Expected: 01/09/2022, Expires: 3 Start: 01-09-2022 End: 01-09-2023 RPR WITH FTA REFLEX [facility] Comment on above: Expected: 01/09/2022, Expires: 3 Start: 01-09-2022 End: 01-09-2023 RUBELLA IMMUNE STATUS IGG ANTIBODY [facility] Comment on above: Expected: 01/09/2022, Expires: 3 Start: 01-09-2022 End: 01-09-2023 VARICELLA IGG AB (IMM STATUS) [facility] Comment on above: Expected: 01/09/2022, Expires: 3 Start: 05-14-2021 Influenza vaccination INFLUENZA VACCINE (#1) [facility] Start: 09-25-2020 Depression screening using PHQ-9 (Patient Health Questionnaire 9) score [facility] Start: 09-25-2020 Tetanus vaccination [facility] Comment on above: Postponed from 1995 (Patient Refus ed) Start: 07-14-2020 Screening for malignant neoplasm of cervix PAP SMEAR [facility] Start: 01-11-2020 End: 01-11-2020 Office Visit 01/11/2020 Office Visit Primary Care Татьяна Brooke, HYDRAULIC DREDGE OPERATOR [address] [place] [address] [phone] [facility] Start: 09-25-2019 End: 09-25-2020 Plasma dehydroepiandrosterone sulfate level DHEA-Sulfate Lab Add-On Weight gain Expected: 09/25/2019, Expires: 09/25/2020 [facility] Comment on above: Expected: 09/25/2019, Expires: 1 Start: 09-25-2019 End: 09-25-2020 Testosterone [Mass/Vol] Testosterone, Total Lab Add-On Weight gain Expected: 09/25/2019, Expires: 09/25/2020 [facility] Comment on above: Expected: 09/25/2019, Expires: 1 Start: 07-14-2018 Screening for Chlamydia trachomatis Chlamydia Screening [facility] Start: 05-14-2018 Influenza vaccination SEQUENTIAL INFLUENZA VACCINE (Season Ended) [facility] Start: 2017 DTaP/Tdap/Td Vaccines (2 - Tdap) DTaP/Tdap/Td Vaccines (2 - Tdap) [facility] Start: 02-10-2016 Screening for malignant neoplasm of cervix [facility] Start: 2014 Hepatitis B vaccination [facility] Start: 2014 Hepatitis B Vaccines (1 of 3 - 19+ 3-dose series) Hepatitis B Vaccines (1 of 3 - 19+ 3-dose series) [facility] Start: 2014 Third diphtheria, tetanus and acellular pertussis (DTaP) vaccination TDAP (ADULT) [facility] Start: 2014 Vaccination for diphtheria, pertussis, and tetanus Tetanus/Diphtheria/Pe rtussis (2 - Tdap) [facility] Start: 2013 Hepatitis C screening Hepatitis C Screening [facility] Start: 2013 Tetanus vaccination TETANUS [facility] Start: 2011 Screening for Chlamydia trachomatis CHLAMYDIA SCREEN [facility] Start: 2010 HIV screening [facility] [facility] Start: 02-10-2008 Varicella vaccination Varicella Vaccines (1 of 2 - 13+ 2-dose series) [facility] Start: 2006 Vaccination for human papillomavirus [facility] Start: 02-10-2000 COVID-19 VACCINE (#1) COVID-19 VACCINE (#1) [facility] Start: 02-10-2000 COVID-19 VACCINE (1) COVID-19 VACCINE (1) [facility] Start: 1998 History and physical examination, annual for health maintenance Wellness Visit [facility] Start: 1995 COVID-19 VACCINE (#1) COVID-19 VACCINE (#1) [facility] tem Start: 1995 Fasting lipid profile Lipid Panel [facility] Start: 1995 GONORRHEA SCREEN GONORRHEA SCREEN [facility] Start: 1995 Hepatitis B vaccination HEP B VACCINE (1 of 3 - 3-dose series) [facility] Start: 1995 Hepatitis C antibody, confirmatory test HEPATITIS C VIRUS SCREENING [facility] Start: 1995 Hepatitis C screening HEPATITIS C VIRUS SCREENING [facility] Start: 1995 Lipid panel Lipid Panel [facility] Start: 1995 Screening for malignant neoplasm of cervix PAP SMEAR [facility] Start: 1995 Tetanus vaccination [facility] Start: 1995 Yearly Adult Physical Yearly Adult Physical [facility] End: 04-06-2025 B12/Folate B12/Folate Lab Routine Chronic fatigue 1 Occurrences starting 04/06/2024 until 04/06/2025 [facility] Comment on above: 1 Occurrences starting 04/06/2024 until 04/06/2025 Bacteria identified in Urine by Culture URINE CULTURE Microbiology Today Dysuria 02/02/2022 4:48 PM EDT [facility] CBC W Auto Different ial panel - Blood [facility] CBC W Auto Different ial panel - Blood [facility] End: 04-06-2025 Complete blood count with white cell differential, manual CBC and Differential Lab Routine Chronic fatigue 1 Occurrences starting 04/06/2024 until 04/06/2025 [facility] Comment on above: 1 Occurrences starting 04/06/2024 until 04/06/2025 End: 01-21-2019 Comprehensive metabolic panel [AGGREGATE] Comprehensive Metabolic Panel Routine Weight gain 1 Occurrences starting 01/21/2018 until 01/21/2019 [facility] End: 01-29-2021 Free T3 [Mass/Vol] T3, Free Lab Routine Weight gain 1 Occurrences starting 01/30/2020 until 01/29/2021 [facility] Comment on above: 1 Occurrences starting 01/30/2020 until 01/29/2021 Free T3 [Mass/Vol] T3, Free Lab Routine Weight gain 01/30/2020 8:29 AM EDT [facility] Hemoglobin A1c/Hemoglobin.total in Blood [facility] Hepatitis C antibody measurement [facility] End: 09-25-2020 Insulin Qn Insulin, Total Lab Routine Weight gain 1 Occurrences starting 09/25/2019 until 09/25/2020 [facility] Comment on above: 1 Occurrences starting 09/25/2019 until 09/25/2020 Insulin Qn Insulin, Total L ab Routine Weight gain 09/25/2019 5:50 PM EST [facility] End: 04-06-2025 Iron measurement Iron Study with Ferritin Lab Routine Chronic fatigue 1 Occurrences starting 04/06/2024 until 04/06/2025 [facility] Work Phone: Comment on above: 1 Occurrences starting 04/06/2024 until 04/06/2025 Measurement of gluco se 2 hours after glucose challenge for glucose tolerance test [facility] PAP IG, RFX HPV ASCU PAP IG, RFX HPV ASCU Cytology Routine 10/26/2023 4:00 PM EST [facility] Plasma dehydroepiand rosterone sulfate level DHEA-Sulfate Lab Add-On Weight gain 09/25/2019 5:50 PM EST [facility] VT NON-STRESS TEST VT FETA L NON-STRESS TEST VT Charge Routine Decreased movements in second trimester, single or unspecified fetus Ordered: 05/22/[address] [facility] Comment on above: Ordered: 05/22/2022 Procedure [facility] End: 11-24-2022 PROGESTERONE PROGESTERONE Lab Routine Infertility associated with anovulation 6 Occurrences starting 11/24/2021 until 11/24/2022 [facility] Comment on above: 6 Occurrences starting 11/24/2021 until 11/24/2022 Rubella IgG measurement [facility] Serologic test for syphilis [facility] Serologic test for syphilis [facility] Testosterone [Mass/Vol] Testoste harriett Total Lab Add-On Weight gain 09/25/2019 5:50 PM EST [facility] End: 01-21-2019 TSH TSH Routine Weight gain 1 Occurrences starting 01/21/2018 until 01/21/2019 [facility] Ultrasound scan for growth [facility] End: 04-30-2022 US OB LIMITED/AMNIOTIC FLUID [facility] Work Phone: Comment on above: 1 Occurrences starting 04/30/2022 until 04/30/2022 [facility] Immunizations Immunization Date Immunization Notes Care Provider [facility] 08-11-2022 varicella zoster imm une globulin Lemuel Lee MD Work Phone: [facility] 08-11-2022 measles, mumps and rubella virus vaccine Lemuel Lee MD Work Phone: [facility] 06-15-2019 influenza, injectabl e, quadrivalent, preservative free [facility] 06-15-2019 influenza virus vaccine, unspecified formulation Lemuel Lee MD Work Phone: [facility] 11-27-1999 diphtheria, tetanus toxoids and acellular pertussis vaccine, unspecified formulation [facility] 11-27-1999 measles, mumps and rubella virus vaccine [facility] Payers Date Payer Category Payer Self-pay 2021 Blue [facility] Care [facility] Member Subscriber Plan / Payer (Effective 2021-Present) Name: Drake Petty Relation to Subscriber: Self Name: Drake Petty Payer ID: [id number] (NAIC) Type: Not on file Address: [address] [place] [id number] 2019 Blue [employer] Blue [employer] ANTHEM BL UE/PREF/HMO/PPO Member Subscriber Plan / Payer (Effective 2019-Present) Name: Drake Petty Relation to Subscriber: Self Name: Drake Petty Payer ID: [id number] (NAIC) Type: Not on file Address: [address] [place] [id number] 2019 Unknown ANTHEM ANTHEM BLUE/PREF/HMO/PPO xxxxxxxxxxxx 2019-Present [id number]. [id number] 2019 Unknown [id number]. 1.13.172.2. 7.3.987291.315 2019 Unknown [id number] 2017 Unknown [id number] 1995 Unknown [id number] 2.16.840.1.792034.3.579.2. 900 1995 Unknown [id number] 2.16840.1.165645.3.579.2. 1068 1995 Unknown [id number] 2.16.840.1.585793.3.579.2. 1068 1995 Unknown [id number] 2.16.840.1.867297.3.579.2. 983 1995 Unknown [id number] 2.16.840.1.327185.3.579.2. 98 1995 Unknown [id number] 2.16.840.1.459987.3.579.2. 98 1995 Unknown [id number] 2.16.840.1.791443.3.579.2. 98 1995 Unknown [id number] 2.16.840.1.453157.3.579.2. 98 1995 Unknown [id number] 2.16840.1.742948.3.579.2. 98 1995 Unknown [id number] 2.16840.1.326359.3.579.2. 98 1995 Unknown [id number] 2.16840.1.037212.3.579.2 1995 Unknown [id number] 2.16840.1.443119.3.579.2. 1995 Unknown [id number] 2.16840.1.470348.3.579.2 1995 Unknown [id number] 2.16840.1.016965.3.579.2 1995 Unknown [id number] 2.16840.1.209227.3.579.2. 1243 1995 Unknown [id number] 2.16840.1.725877.3.579.2 47 1995 Unknown [id number] 2.16840.1.347383.3.579.2 47 1995 Unknown [id number] 2.16840.1.232797.3.579.2. 1995 Unknown [id number] 2.16840.1.493509.3.579.2 1995 Unknown [id number] 2.16840.1.351764.3.579.2 1995 Unknown [id number] 2.16840.1.232825.3.579.2. 903 1995 Unknown [id number] 2.840.1.210849.3.579.2. 903 1995 Unknown [id number] 2.840.1.778818.3.579.2. 903 1995 Unknown [id number] 2.840.1.161038.3.579.2. 90 1995 Unknown [id number] 2.840.1.782251.3.579.2. 903 Unknown [id number] 2.840.1.220898.3.579.2. 462 Unknown [id number] 2.840.1.333899.3.579.2. 462 Unknown [id number] 2.0.1.600936.3.579.2. 462 Unknown [id number] 2.0.1.224972.3.579.2. 462 Unknown [id number] 2.840.1.472845.3.579.2. 462 Unknown [id number] 2.0.1.182140.3.579.2. 462 Unknown [id number] 2.840.1.184296.3.579.2. 462 Unknown [id number] 2.0.1.933744.3.579.2. 462 Unknown [id number] 2.840.1.774681.3.579.2. 462 Unknown [id number] .840.1.405253.3.579.2. 462 Unknown [id number] 2.840.1.569543.3.579.2. 462 Unknown [id number] 2.840.1.156579.3.579.2. 462 Unknown [id number] 2.840.1.915862.3.579.2. 462 Unknown [id number] 2.16.840.1.255632.3.579.2. 462 Unknown [id number] 2.16.840.1.940719.3.579.2. 462 Unknown [id number] 2.16.840.1.926161.3.579.2. 462 Unknown [id number] 2.16.840.1.653932.3.579.2. 462 Unknown [id number] 2.16.840.1.095392.3.579.2. 462 Unknown [id number] 2.16.840.1.817015.3.579.2. 462 Social History Date Type Detail Facility Start: 01-21-2018 End: 01-11-2025 Tobacco smoking status NHIS Never smoker [facility] Start: 1995 Sex Assigned At Not on file [facility] Start: 09-25-2019 End: 06-26-2025 Alcohol intake Current drinker of alcohol (finding) [facility] Start: 09-25-2019 End: 11-24-2021 History SDOH Alcohol Frequency 3 [facility] Start: 09-25-2019 End: 11-24-2021 History SDOH Alcohol Std Drinks 1 [facility] Start: 01-29-2020 End: 06-17-2022 History SDOH Social Connections Get Together 4 [facility] Start: 11-14-2021 End: 11-09-2024 Exposure to SARS-CoV-2 (event) Not sure [facility] Start: 04-21-2017 End: 06-17-2022 Tobacco use and exposure Smokeless tobacco non-user [facility] Start: 11-24-2021 End: 09-29-2023 Alcohol intake Ex-drinker (finding) [facility] Start: 11-24-2021 End: 06-17-2022 History SDOH Alcohol Std Drinks 0 [facility] Start: 11-24-2021 End: 06-17-2022 History SDOH Social Connections Phone 2 [facility] Start: 11-24-2021 End: 07-21-2022 History SDOH Financial 5 [facility] Start: 11-22-2021 [facility] Start: 06-17-2022 Education 17 [facility] Tobacco smoking consumption unknown [facility] Start: 06-17-2022 End: 07-21-2023 History of Social function [facility] Start: 06-17-2022 End: 07-21-2023 Humiliation, Afraid, Rape, and Kick questionnaire [HARK] [facility] Within the last year , have you been afraid of your partner or ex-partner? No [facility] Are you now , , , , never or living with a partner? [facility] How often to you hav e a drink containing alcohol? Never [facility] How many standard drinks containing alcohol do you have on a typical day? Patient does not drink [facility] Do you feel stress - tense, restless, nervous, or anxious, or unable to sleep at night because your mind is troubled all the time - these days [OSQ] To some extent [facility] (I/We) worried wheth er (my/our) food would run out before (I/we) got money to buy more. Never true [facility] Start: 04-21-2017 Gender identity Identifies as female gender (finding) [facility] Start: 01-31-2019 Sexual orientation Heterosexual (fin ding) [facility] Do you feel stress - tense, restless, nervous, or anxious, or unable to sleep at night because your mind is troubled all the time - these days [OSQ] Not at all [facility] Start: 10-26-2023 Alcohol Comment consumes occassional ly [facility] Start: 03-06-2024 Alcohol Comment occasional [facility] Start: 1995 Sex Assigned At Female [facility] NEGATED: Highlighted rowStart: CLEM History of tobacco use Passive smoker [facility] Medical Equipment Procedure Code Equipment Code Equipment Origin al Text Equipment Identifier Dates Droplet Pen Need les 32G X 4 MM Misc [id number] Start: 11-03-[address] to check fasting BS every morning and then two hours after each meal. [id number] Start: 06-11-2022 End: 08-13-[address] to check BS every morning and then two hours after each meal. 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 Energy and motivation is fair. We again [...] AUTHENTICATED BY ANNA FUENTES, ON 06/26/2025 14:42:03 [facility] 06-25-2025 Progress note [facility] 06-25-2025 Progress note Note Date/Time June 25, 2025 3:43pm [facility] [address] [place] [address], [address] [place] [address] OFFICE VISIT Date of Service: 06/25/25 MR#: [id number] Acct: [id number] Name: DRAKE PETTY Rep #: [id number] : 1995 Provider: BRET Ruff Age/Sex: 30/F Location: [facility] Status: Signed Intake Vital Signs 04/27/25 11:42 06/13/25 15:26 06/25/25 15:16 Height 5 ft 4 in 5 ft 4 in 5 ft 4 in Weight: 185 lb 183 lb 6 oz BMI 31.7 31.4 BP 101/67 108/74 Intake Visit Reasons: 30 WK OB Chief Complaint: 30wk OB Newspaper Writer Required: No Is patient in pain?: No [...] 1 current occupational status: employed current occupation: FT-[employer] current occupational exposures/hazards: No pets and animals: [...] 5-6 times per week duration: 45-60 minutes/day carolann/jewish: None seatbelt use: always do you feel [...] MH-No VB, LOF. [facility] 06/13/25 -?-?-?-?-?-?-?-?-?-?-?-?- 28w 1d 185 [...] and Symptoms of Preeclampsia, Feeding No , [place] [employer] Medical Leave or Disability [...] Acute Comment: on metformin- sees jennifer in [place] . stopped at first visit. (7) Depression [...] fallen in the past year?: No 06/25/25 6187 <Electronically signed by Nel wayne CNM> Date _ Nel Huffman Signature: Date (if applicable) CC: ~ [facility] Work Phone: 1(990) 929-126010-01-2025 Progress [facility] [address] [place] [address], [address] [place] [id number] OFFICE VISIT Date of Service: 06/13/25 MR#: [id number] Acct: [id number] Name: DRAKE PETTY Luna Rep #: [id number] : 1995 Provider: Dr. Connie Contreras DO Age/Sex: 30/F Location: [facility] Status: Signed Intake Vital Signs 03/30/25 13:58 05/22/25 15:35 06/13/25 15:26 Height 5 ft 4 in 5 ft 4 in 5 ft 4 in Weight: 185 lb BMI 31.7 BP 101/67 Intake Visit Reasons: 28wk ob/glucose Newspaper Writer Required: No Is patient in pain?: No [...] 1 current occupational status: employed current occupation: FT-[employer] current occupational exposures/hazards: No pets and animals: [...] 5-6 times per week duration: 45-60 minutes/day carolann/jewish: None seatbelt use: always do you feel [...] Gregory IOL, GDM HPI 28wk ob/glucose Details: RDAKE PETTY is a 30 year old who [...] and Symptoms of Preeclampsia, Feeding No , [place] [employer] Family Medical Leave or Disability [...] Acute Comment: on metformin- sees jennifer in [place] . stopped at first visit. (7) Depression [...] Espinoza DO> Date _ Emmanuelle Contreras DO [facility] Signature: Date (if applicable) CC: ~ [facility]10-01-2025 Progress note Author Emmanuelle Espinoza [facility] Note Date/Time June 13, 2025 3: 53pm [facility] [address], [address] [place] [address] OFFICE VISIT Date of Service: 06/13/25 MR#: [id number] Acct: [id number] Name: DRAKE PETTY Rep #: [id number] : 1995 Provider: Dr. Connie Contreras, DO Age/Sex: 30/F Location: [facility] Status: Signed Intake Vital Signs 03/30/25 13:58 05/22/25 15:35 06/13/25 15:26 Height 5 ft 4 in 5 ft 4 in 5 ft 4 in Weight: 185 lb BMI 31.7 BP 101/67 Intake Visit Reasons: 28wk ob/glucose Newspaper Writer Required: No Is patient in pain?: No [...] 1 current occupational status: employed current occupation: FT-[employer] current occupational exposures/hazards: No pets and animals: No history of recent travel: Yes ([place]- December) out of state: Yes out of [...] 5-6 times per week duration: 45-60 minutes/day carolann/jewish: None seatbelt use: always do you feel [...] and Symptoms of Preeclampsia, Feeding No , [place] [employer] Family Medical Leave or Disability [...] Acute Comment: on metformin- sees jennifer in [place] . stopped at first visit. (7) Depression [...] Ling DO> Date _ Emmanuelle Contreras DO [facility] Signature: Date (if applicable) CC: ~ [facility] Work Phone: 1(898) 800-486908-15-2025 Progress [facility] [address] [place] [address], [address] [place] [id number] OFFICE VISIT Date of Service: 04/27/25 MR#: [id number] Acct: [id number] Name: DRAKE PETTY Rep #: [id number] : 1995 Provider: BRET Ruff Age/Sex: 30/F Location: [facility] Status: Signed Intake Vital Signs 03/01/25 13:22 03/30/25 13:58 04/27/25 11:42 Height 5 ft 4 in 5 ft 4 in 5 ft 4 in Weight: 177 lb 7 oz BMI 30.4 BP 105/69 Intake Visit Reasons: 21 wk ob Chief Complaint: 21wk OB Newspaper Writer Required: No Is patient in pain?: No [...] 1 current occupational status: employed current occupation: FT-[employer] current occupational exposures/hazards: No pets and animals: [...] 5-6 times per week duration: 45-60 minutes/day carolann/jewish: None seatbelt use: always do you feel [...] Acute Comment: on metformin- sees jennifer in [place] . stopped at first visit. (6) Depression [...] Cosigner Signature: Date (if applicable) CC: ~ [facility]07-18-2025 Evaluation note* Diagnosis Onset Date Resolution Status [...] Abnormal glucose affecting deleted June 25 3:13pm [facility] Work Phone: 1(638) 370-615607-18-2025 [facility] [address] [place] [address], [address] [place] [address] OFFICE VISIT Date of Service: 03/30/25 MR#: [id number] Acct: [id number] Name: DRAKE PETTY Luna Rep #: [id number] : 1995 Provider: Dr. Cruzito Thompson MD Age/Sex: 30/F Location: [facility] Status: Signed Intake Vital Signs 01/18/25 08:47 03/01/25 13:22 03/30/25 13:58 Height 5 ft 4 in 5 ft 4 in 5 ft 4 in Weight: 169 lb 4 oz BMI 29.0 BP 116/72 Intake Visit Reasons: 17 wk ob Newspaper Writer Required: No Is patient in pain?: No [...] 1 current occupational status: employed current occupation: FT-[employer] current occupational exposures/hazards: No pets and animals: [...] 5-6 times per week duration: 45-60 minutes/day carolann/jewish: None seatbelt use: always do you feel [...] and Symptoms of Preeclampsia, Feeding No , [place] [employer] and Family Medical Leave or Disability [...] Acute Comment: on metformin- sees jennifer in [place] . stopped at first visit. (6) Depression with anxiety: Status: Acute Comment: sees psychiatrist-Dr. Fuentes-Does not meet criteria for diagnosis of bipolar Orders: Orders POC Urinalysis 2 Dip (Clinic) Today 03/30/25 1431 chacha GREER> Date _ Ayala Thompson MD Cosign Signature: Date (if applicable) CC: ~ [facility]07-18-2025 Progress note Author Ayala Thompson [facility] Note Date/Time March 30, 2025 2:31 pm [facility] [address] [place] [address], [address] [place] [address] OFFICE VISIT Date of Service: 03/30/25 MR#: [id number] Acct: [id number] Name: DRAKE PETTY Rep #: [id number] : 1995 Provider: Dr. Cruzito Thompson MD Age/Sex: 30/F Location: [facility] Status: Signed Intake Vital Signs 01/18/25 08:47 03/01/25 13:22 03/30/25 13:58 Height 5 ft 4 in 5 ft 4 in 5 ft 4 in Weight: 169 lb 4 oz BMI 29.0 BP 116/72 Intake Visit Reasons: 17 wk ob Newspaper Writer Required: No Is patient in pain?: No [...] 1 current occupational status: employed current occupation: FT-[employer] current occupational exposures/hazards: No pets and animals: [...] 5-6 times per week duration: 45-60 minutes/day carolann/jewish: None seatbelt use: always do you feel [...] Symptoms of Preeclampsia, Infant Feeding No , [place] [employer] and Family Medical Leave or Disability [...] Acute Comment: on metformin- sees jennifer in [place] . stopped at first visit. (6) Depression with anxiety: Status: Acute Comment: sees psychiatrist-Dr. Fuentes-Does not meet criteria for diagnosis of bipolar Orders: Orders POC Urinalysis 2 Dip (Clinic) Today 03/30/25 1431 <Electronically signed by Ayala burnham MD> Date _ Ayala Childers Signature: Date (if applicable) CC: ~ [facility] Work Phone: 1(642) 307-120207-14-2025 NoteBEHAVIORAL HEALTH PSYCHIATRIC PROGRESS NOTE 03/26/2025 Drake [...] Diabetes Paternal Grandmother ADD / ADHD Brother Petal The following portions of the patient's history [...] MD AUTHENTICATED BY ANNA FUENTES, ON 03/26/2025 12:10:30[facility] 03-26-2025 History of Present illness [...] Diabetes Paternal Grandmother ADD / ADHD Brother Petal The following portions of the patient's history [...] none Anna Fuentes MD documented in this [id number] Evaluation note* Diagnosis Onset Date Resolution Status Admit Date Depression with anxiety acute J [facility] 2024 1:18pm History of gestational diabetes [...] 27 11:38am [facility] History of gestational diabetes [...] high-risk acute May 22 2 025 3:33pm [facility] Work Phone: 1(663) 584-997906-19-2025 Evaluation note* Diagnosis Onset Date Resolution Status [...] lying placenta, antepartum resolved June 13 3:09pm [facility] Work Phone: 1(993) 657-114104-22-2025 Evaluation note* Diagnosis Onset Date Resolution Status [...] high-risk acute January 18, 2025 8: 46am [facility] Work Phone: 1(280) 601-877504-22-2025 Evaluation note* Diagnosis Onset Date Resolution Status [...] 8: 46am Depression with anxiety acute J [facility] 2024 1:18pm History of gestational diabe rommel mellitus (GDM) in prior , currentl acute March 01, 2 025 1:18pm Hx of forceps delivery in pr ior , currently acute [facility] 2024 1:18pm PCOS (polycystic ovarian syndrome) acute March 01, 2025 1:18pm acute March 01 1:18pm Supervision of high-risk acute March 01, 2025 1:18pm [facility] Work Phone: 1(702) 322-118804-22-2025 Evaluation note* Diagnosis Onset Date Resolution Status [...] delivery in pr ior , currently acute [facility] 2024 1:18pm PCOS (polycystic ovarian syndrome) acute March 01, 2025 1:18pm acute March 01 1:18pm Supervision of high-risk acute March 01, 2025 1:18pm Depression with anxiety acute J [facility] 2024 1:56pm History of gestational diabe rommel mellitus (GDM) in prior , currentl acute March 30 025 1:56pm Hx of forceps delivery in pr ior , currently acute [facility] 2024 1:56pm PCOS (polycystic ovarian syndrome) acute March 30, 2025 1:56pm acute March 30 1:56pm Supervision of high-risk acute March 30, 2025 1:56pm [facility] Work Phone: 1(428) 927-656404-22-2025 Evaluation note* Diagnosis Onset Date Resolution Status [...] Supervision of high-risk acute April 27 11:38am [facility] Medical Services Work Phone: [phone]) 508-385204-14-2025 [facility] 12/25/2024 Drake Petty, a [...] Diabetes Paternal Grandmother ADD / ADHD Brother Petal The following portions of the patient's history [...] or community referral: none (more content not included)...[facility]04-14-2025 History of Present illness Narrative* Anna [...] Diabetes Paternal Grandmother ADD / ADHD Brother Petal The following portions of the patient's history [...] none Anna Fuentes MD documented in this [id number] History of Present illness Narrative* Antonio Lopez PA-C - 11/09/2024 12:50 PM EST [facility] CAROL NOTE: Name: Drake Petty, 29 y.o. CSN:[id number] PCP: Anand Cooley, ALL: No Known Allergies [...] states sx started Wednesday. ) leaving for [place] soon for business trip, would like this [...] week, then inject 1.8 mg every day ydsadevdaewlrrl-cegukprha-PV 2-30-10 mg/5 mL syrup Take 5 mL [...] Resource Strain: Low Risk (07/21/2023) Received from [facility] Overall Financial Resource Strain (CARDIA) Difficulty of Paying Living Expenses: Not hard at all Food Insecurity: No Food Insecurity (07/21/2023) Received from [facility] Hunger Vital Sign Worried About Running Out of Food in the Last Year: Never true Ran Out of Food in the Last Year: Never true Transportation Needs: No Transportation Needs (07/21/2023) Received from [facility] PRAPARE - Transportation Lack of Transportation (Medical): No Lack of Transportation (Non-Medical): No Physical Activity: Inactive (06/17/2022) Received from [facility] Exercise Vital Sign Days of Exercise per Week: 0 days Minutes of Exercise per Session: 0 min Stress: Stress Concern Present (06/17/2022) Received from [facility] [place] of Occupational Health - Occupational Stress Questionnaire Feeling of Stress : To some extent Social Connections: Moderately Isolated (06/17/2022) Received from [facility] Social Connection and Isolation Panel [NHANES] Frequency of Communication with Friends and Family: More than three times a week Frequency of Social Gatherings with Friends and Family: Three times a week Attends Yazidism Services: Never Active Member of Clubs or Organizations: No Attends Club or Organization Meetings: Never Marital Status: Intimate Partner Violence: Not At Risk (06/17/2022) Received from [facility] Humiliation, Afraid, Rape, and Kick questionnaire Fear of Current or Ex-Partner: No Emotionally Abused: No Physically Abused: No Sexually Abused: No Housing Stability: Low Risk (06/17/2022) Received from [facility] Housing Stability Vital Sign Unable [...] flight. Antonio Lopez PA-C Advanced Practice Provider [facility] Please note: While the patient may or may not have received printed discharge paperwork, all relevant medical findings, test results, and treatment details are accessible through the electronic medical record system. The patient is encouraged to review their chart via the patient portal for comprehensive information and follow-up instructions. documented [facility] Work Phone: [phone]) 289-833909-06-2024 History of Present illness Narrative* Sussy Degroot MA - 05/19/2024 12:43 PM EDT Images from the original note were not included. This [employer] refinery technician attempted to contact patient regarding referral to BHI program placed by PCP at request of [employer]. The patient did not answer. Voice mail message was left with request for return call.THIRD and final attempt. [phone] Behavioral Health Screenings: 09/01/2023 8:00 AM 03/06/2024 1:37 PM GABRIELA-7 GABRIELA-7 Score 3 10 09/25/2019 5:00 PM PHQ-9 PHQ-9 Total Score 6 documented in this [id number] Evaluation + Plan note* Assessment & Plan Note - Keyla Meneses CNP - 05/18/2024 9:13 AM EDT Associated Problem(s): Anxiety and depression Acute on chronic. Sub-optimal control Stop pristiq given worsening symptoms. Increase buspar dose Refer to psychiatry Encouraged to schedule with counseling Discussed hospital precautions [id number] Miscellaneous Notes* Assessment & Plan Note - Keyla Meneses CNP - 05/18/2024 9:13 AM EDTAssociated Problem(s): Anxiety and depression Acute on chronic. Sub-optimal control Stop pristiq given worsening symptoms. Increase buspar dose Refer to psychiatry Encouraged to schedule with counseling Discussed hospital precautions documented in this [id number] Instructions* Patient Instructions* Maria Antonia Ayala LPN - 05/18/2024 8:07 AM EDT Feedback Our goal is to provide you with exceptional patient care, and we strive to do this for every patient, every visit. Since we care about you and your experience, you may receive a patient satisfaction survey in the mail, via email or text message from [employer]. We truly welcome your feedback, positive and [...] call at or send the provider a FRS message and we will be happy to assist. Advanced Imaging (MRI, CT, etc.) If your provider ordered advanced imaging during your visit today, you will be contacted by [facility] Central Scheduling. If you would [...] concerned about them, you will receive a Codewiset message with these results. If your labs are abnormal or critical, you will receive a phone call with your results. If you have not heard anything about your lab results after 5 business days, please give our office a call at or send the provider a Sumbolahart message and we will be happy to [...] call at or send the provider a Codewiset message and allow up to 2 business days for us to complete this. If your insurance requires your medication(s) to be prior authorized, we will work with your insurance company to get these medication(s) prior authorized for you. Please allow up to 7-10 business days for this to be completed. Clipmarks is a wonderful way to communicate with your provider and often allows for quicker response times compared to calling our office. Please consider sending your provider a FRS message with your non-urgent questions, medication refill requests, or even to schedule an appointment. Please do not use FRS to send any messages requiring urgent or [...] speak to the provider on-call or call [phone]. Important Numbers Billing Questions or MyChart Support or Medical Financial Assistance Central Scheduling or Thank you for choosing [facility] for your healthcare needs documented in this [id number] History of Present illness Narrative* Keyla Meneses, [...] is not in the moment. Referral placed [facility]. Per chart review, patient has yet [...] specialist office contacts you. documented in this [id number] History of Present illness Narrative* Sussy Degroot MA - 05/05/2024 4:28 PM EDT Images from the original note were not included. This [employer] refinery technician attempted to contact patient regarding referral to BHI program placed by PCP at request of [employer]. The patient did not answer. Voice mail message was left with request for return call.SECOND attempt. [phone] Behavioral Health Screenings: 09/01/2023 8:00 AM 03/06/2024 1:37 PM GABRIELA-7 GABRIELA-7 Score 3 10 09/25/2019 5:00 PM PHQ-9 PHQ-9 Total Score 6 documented in this [id number] History of Present illness Narrative* Sussy Degroot MA - 04/28/2024 1:46 PM EDT Images from the original note were not included. This [employer] refinery technician attempted to contact patient regarding referral to BHI program placed by PCP at request of [employer]. The patient did not answer. Voice mail message was left with request for return call.First attempt. [phone] Behavioral Health Screenings: 09/01/2023 8:00 AM 03/06/2024 1:37 PM GABRIELA-7 GABRIELA-7 Score 3 10 09/25/2019 5:00 PM PHQ-9 PHQ-9 Total Score 6 documented in this [id number] Evaluation + Plan note* Assessment & Plan [...] flag symptoms discussed Referral placed to counseling [id number] Miscellaneous Notes* Assessment & Plan Note - [...] Referral placed to counseling documented in this [id number] History of Present illness Narrative* Keyla Meneses [...] Relevant Orders Ambulatory Ref to [facility] Photograph Mounter For any new medication prescribed today, patient was educated about indications for the medication,how to take the medication and potential side effects of the medication. Referral was put in today, please allow 1-2 weeks until the specialist office contacts you. Return in about 2 years (around 04/27/2026) for Recheck - anxiety/depression . documented in this [id number] Instructions* Patient Instructions* Maria Antonia Ayala LPN - 04/27/2024 7:53 AM EDT Feedback Our goal is to provide you with exceptional patient care, and we strive to do this for every patient, every visit. Since we care about you and your experience, you may receive a patient satisfaction survey in the mail, via email or text message from [employer]. We truly welcome your feedback, positive and [...] call at or send the provider a Codewiset message and we will be happy to assist. Advanced Imaging (MRI, CT, etc.) If your provider ordered advanced imaging during your visit today, you will be contacted by [facility] Central Scheduling. If you would [...] concerned about them, you will receive a FRS message with these results. If your labs are abnormal or critical, you will receive a phone call with your results. If you have not heard anything about your lab results after 5 business days, please give our office a call at or send the provider a Codewiset message and we will be happy to [...] call at or send the provider a FRS message and allow up to 2 business days for us to complete this. If your insurance requires your medication(s) to be prior authorized, we will work with your insurance company to get these medication(s) prior authorized for you. Please allow up to 7-10 business days for this to be completed. Clipmarks is a wonderful way to communicate with your provider and often allows for quicker response times compared to calling our office. Please consider sending your provider a FRS message with your non-urgent questions, medication refill requests, or even to schedule an appointment. Please do not use FRS to send any messages requiring urgent or [...] speak to the provider on-call or call [phone]. Important Numbers Billing Questions or MyChart Support or Medical Financial Assistance Central Scheduling or Thank you for choosing [facility] for your healthcare needs documented in this [id number] Evaluation + Plan note* Assessment & Plan Note - Keyla Meneses CNP - 04/06/2024 10:25 AM EDT Associated Problem(s): Anxiety Chronic. Poorly controlled. Increase prozac to 20 mg. Obtain Gene Sight Encouraged exploring counseling Continue to optimize healthy habits - sleep/diet/exercise Continue stress relieving techniques [id number] Miscellaneous Notes* Assessment & Plan Note - Keyla Meneses CNP - 04/06/2024 10:25 AM EDTAssociated Problem(s): Anxiety Chronic. Poorly controlled. Increase prozac to 20 mg. Obtain Gene Sight Encouraged exploring counseling Continue to optimize healthy habits - sleep/diet/exercise Continue stress relieving techniques documented in this [id number] History of Present illness Narrative* Keyla Meneses [...] for follow-up anxiety . documented in this [id number] Evaluation + Plan note* Assessment & Plan Note - Keyla Meneses CNP - 03/06/2024 2:16 PM EDT Associated Problem(s): Anxiety Chronic. Poorly controlled Most recent labs reviewed Start prozac. Discussed counseling options, if interested Optimize healthy habits - sleep/diet/exercise Continue cognitive behavioral stress relief techniques [id number] Miscellaneous Notes* Assessment & Plan Note - Keyla Meneses CNP - 03/06/2024 2:16 PM EDTAssociated Problem(s): Anxiety Chronic. Poorly controlled Most recent labs reviewed Start prozac. Discussed counseling options, if interested Optimize healthy habits - sleep/diet/exercise Continue cognitive behavioral stress relief techniques documented in this [id number] History of Present illness Narrative* Keyla Meneses [...] other people? Somewhat difficult documented in this [id number] History of Present illness Narrative* SPENCER Donohue [...] each nostril daily 11.1 mL 0 Lancets (Sanrad DelJammit Plus [id number]) Misc Use with glucometer to check BS every morning and then two hours after each meal. (Patient not taking: Reported on 09/21/2022) 120 Each 3 predniSONE 20 MG tablet Take 3 tabs daily x2 days then 2 tabs daily x2 days then 1 tab daily x2 days PO as directed (Patient not taking: Reported on 10/26/2023) 12 tablet 0 nddtqaqhnaryzqc-qsxzgbwuhvpqtvay-gmlbJLOdgze (Capmist DM) 60-15-400 MG tablet Take 1 [...] Resource Strain: Low Risk (07/21/2023) Received from [facility] Overall Financial Resource Strain (CARDIA) Difficulty of Paying Living Expenses: Not hard at all Food Insecurity: No Food Insecurity (07/21/2023) Received from [facility] Hunger Vital Sign Worried About Running Out of Food in the Last Year: Never true Ran Out of Food in the Last Year: Never true Transportation Needs: No Transportation Needs (07/21/2023) Received from [facility] PRAPARE - Transportation Lack of Transportation (Medical): No Lack of Transportation (Non-Medical): No Physical Activity: Inactive (06/17/2022) Received from [facility] Exercise Vital Sign Days of Exercise per Week: 0 days Minutes of Exercise per Session: 0 min Stress: Stress Concern Present (06/17/2022) Received from [facility] [place] of Occupational Health - Occupational Stress Questionnaire Feeling of Stress : To some extent Social Connections: Moderately Isolated (06/17/2022) Received from [facility] Social Connection and Isolation Panel [NHANES] Frequency of Communication with Friends and Family: More than three times a week Frequency of Social Gatherings with Friends and Family: Three times a week Attends Yazidism Services: Never Active Member of Clubs or Organizations: No Attends Club or Organization Meetings: Never Marital Status: Intimate Partner Violence: Not At Risk (06/17/2022) Received from [facility] Humiliation, Afraid, Rape, and Kick questionnaire Fear of Current or Ex-Partner: No Emotionally Abused: No Physically Abused: No Sexually Abused: No Housing Stability: Low Risk (06/17/2022) Received from [facility] Housing Stability Vital Sign Unable [...] plan. SPENCER Donohue 12/17/2023 documented [facility] this [facility] History of Present illness Narrative* SPENCER [...] Reported on 07/30/2022) 30 tablet 0 Lancets (PAAYuch Delica Plus Cxrhyz84N) Misc Use with glucometer to check BS [...] taking: Reported on 10/26/2023) 12 tablet 0 rpumpltasflqptd-yzxvsutyzfyuhwcg-yfarBMMjsbm (Capmist DM) 60-15-400 MG tablet Take 1 [...] Resource Strain: Low Risk (07/21/2023) Received from [facility] Overall Financial Resource Strain (CARDIA) Difficulty of Paying Living Expenses: Not hard at all Food Insecurity: No Food Insecurity (07/21/2023) Received from [facility] Hunger Vital Sign Worried About Running Out of Food in the Last Year: Never true Ran Out of Food in the Last Year: Never true Transportation Needs: No Transportation Needs (07/21/2023) Received from [facility] PRAPARE - Transportation Lack of Transportation (Medical): No Lack of Transportation (Non-Medical): No Physical Activity: Inactive (06/17/2022) Received from [facility] Exercise Vital Sign Days of Exercise per Week: 0 days Minutes of Exercise per Session: 0 min Stress: Stress Concern Present (06/17/2022) Received from [facility] [place] of Occupational Health - Occupational Stress Questionnaire Feeling of Stress : To some extent Social Connections: Moderately Isolated (06/17/2022) Received from [facility] Social Connection and Isolation Panel [NHANES] Frequency of Communication with Friends and Family: More than three times a week Frequency of Social Gatherings with Friends and Family: Three times a week Attends Yazidism Services: Never Active Member of Clubs or Organizations: No Attends Club or Organization Meetings: Never Marital Status: Intimate Partner Violence: Not At Risk (06/17/2022) Received from [facility] Humiliation, Afraid, Rape, and Kick questionnaire Fear of Current or Ex-Partner: No Emotionally Abused: No Physically Abused: No Sexually Abused: No Housing Stability: Low Risk (06/17/2022) Received from [facility] Housing Stability Vital Sign Unable [...] symptoms. SPENCER Donohue 12/07/2023 documented in this encounterMer[facility]02-13-[facility] History of Present illness Narrative* Lemuel [...] Reported on 07/30/2022) 30 tablet 0 Lancets (K-12 Techno ServicesTouch Delica Plus Lsrjyg07B) Misc Use with glucometer to check BS every morning and then two hours after each meal. (Patient not taking: Reported on 09/21/2022) 120 Each 3 predniSONE 20 MG tablet Take 3 tabs daily x2 days then 2 tabs daily x2 days then 1 tab daily x2 days PO as directed (Patient not taking: Reported on 10/26/2023) 12 tablet 0 xtnqwlafcsbdjgn-msfjugmotmrceivr-teqaDLClvvi (Capmist DM) 60-15-400 MG tablet Take 1 [...] Resource Strain: Low Risk (07/21/2023) Received from [facility] Overall Financial Resource Strain (CARDIA) Difficulty of Paying Living Expenses: Not hard at all Food Insecurity: No Food Insecurity (07/21/2023) Received from [facility] Hunger Vital Sign Worried About Running Out of Food in the Last Year: Never true Ran Out of Food in the Last Year: Never true Transportation Needs: No Transportation Needs (07/21/2023) Received from [facility] PRAPARE - Transportation Lack of Transportation (Medical): No Lack of Transportation (Non-Medical): No Physical Activity: Inactive (06/17/2022) Received from [facility] Exercise Vital Sign Days of Exercise per Week: 0 days Minutes of Exercise per Session: 0 min Stress: Stress Concern Present (06/17/2022) Received from [facility] [place] of Occupational Health - Occupational Stress Questionnaire Feeling of Stress : To some extent Social Connections: Moderately Isolated (06/17/2022) Received from [facility] Social Connection and Isolation Panel [NHANES] Frequency of Communication with Friends and Family: More than three times a week Frequency of Social Gatherings with Friends and Family: Three times a week Attends Yazidism Services: Never Active Member of Clubs or Organizations: No Attends Club or Organization Meetings: Never Marital Status: Intimate Partner Violence: Not At Risk (06/17/2022) Received from [facility] Humiliation, Afraid, Rape, and Kick questionnaire Fear of Current or Ex-Partner: No Emotionally Abused: No Physically Abused: No Sexually Abused: No Housing Stability: Low Risk (06/17/2022) Received from [facility] Housing Stability Vital Sign Unable [...] . Physical Exam Exam conducted with a health and safety coordinator present. Constitutional: General: She is not in [...] gynecological exam Normal exam, pap done - [facility] CYTOLOGY-TELEVISION PARTS TESTER, LIQUID BASED; Future 2. Cervical cancer screening Pap done. - [facility] CYTOLOGY-TELEVISION PARTS TESTER, LIQUID BASED; Future Return in about 1 year (around 10/26/2024) for with TK, Annual Exam. The documentation within this encounter was likely aided with Dragon, and electronic dictaphone mechanic device. Please excuse any errors or omissions that may not have been recognized at the time of this encounter. documented in this encounterMer[facility]01-17-2024 History of Present illness Narrative* Jelena Walter APRN-MED - 09/29/2023 4:15 PM EST HPI [place] female 1995 presents to the [facility] with Chief Complaint Patient presents with Sore Throat Cough Nasal Congestion Had symptoms for h4mqluo Since with nasal congestion, sore throat, cough, [...] (Patient not taking: Reported on 07/30/2022) Lancets (Sanrad Delica Plus Gzyncl41Q) Misc Use with glucometer to check BS every morning and then two hours after each meal. (Patient not taking: Reported on 09/21/2022) predniSONE 20 MG tablet Take 3 tabs daily x2 days then 2 tabs daily x2 days then 1 tab daily x2 days PO as directed wjwaaqyqqphojty-dzfcdxuydajukhqx-nfehWAAsmis (Capmist DM) 60-15-400 MG tablet Take 1 [...] file Stress: No Stress Concern Present (11/24/2021) [place] of Occupational Health - Occupational Stress Questionnaire Feeling of Stress : Not at all Social Connections: Unknown (11/24/2021) Social Connection and Isolation Panel [NHANES] Frequency of Communication with Friends and Family: Once a week Frequency of Social Gatherings with Friends and Family: Not on file Attends Yazidism Services: Not on file Active Member of [...] 108 (90 Base) MCG/ACT Aero Soln inhaler vfsmczznhgneihl-qeenojzfjxwtqabb-uneoAEQlpeu (Capmist DM) 60-15-400 MG tablet Azithromycin 250 [...] plan. NATASHA Solis 09/29/2023 documented in this encounterMer[facility]12-20-[facility]23 History of Present illness Narrative* Татьяна [...] if acne resolves .akw documented in this [id number] History of Present illness Narrative* Татьяна Brooke, HYDRAULIC DREDGE OPERATOR - 07/21/2023 3:30 PM EST Images [...] other people? Somewhat difficult documented in this [id number] History of Present illness Narrative* SPENCER Donohue - 01/05/2023 9:30 AM EDT URGENT CARE eNCOUnter CHIEF COMPLAINT Sore Throat (Strep + on , prescribed penicillin not better. ), Cough, and Ear Pain [facility] Drake Petty is a 27 y.o. [...] 30 tablet 0 Lancets (OneTouch Delica Plus Cpqzta34B) [facility] Use with glucometer to check BS every [...] worsening. SPENCER Donohue 01/05/2023 documented in this [facility]02-07-2023 History of Present illness Narrative* Lemuel Lee [...] within this encounter was likely aided with nPickeron, and electronic dictaphone mechanic device. Please excuse any errors or omissions that may not have been recognized at the time of this encounter. documented in this encounterMercy [facility]12-01-2022 Miscellaneous Notes* Note - Janes Mcgovern RN - 08/13/2022 4:45 PM EST This note was copied from a baby's chart. Discharge instructions reviewed with parents at bedside. Parents educated on care, safe sleep, signs and symptoms to report to sheriff. Reinforced education about safe sleep and SIDS. [...] pump use/cleaning/frequency, breastmilk storage, handling, nipple care, [facility] Hotline, [facility] support group, formula preparation, cronobacter, positioning, paced [...] expression. Lanolin provided with instructions. Patient states internet marketing consultant told her she should be using [...] rooming-in facilitated Parent/Child Attachment Promotion: attachment promoted thgm-wm-nwrp positioning promoted parent-child separation minimized positive reinforcement provided role responsibility promoted rooming-in promoted uixy-cy-wdtr contact encouraged strengths emphasized taught/modeled caring behavior [...] Taken 08/12/20221999 Parent/Child Attachment Promotion: attachment promoted mqgr-ow-bzmc positioning promoted parent-child separation minimized positive reinforcement provided role responsibility promoted rooming-in promoted ouhs-hp-tsst contact encouraged strengths emphasized taught/modeled caring behavior [...] rooming-in facilitated Parent/Child Attachment Promotion: attachment promoted jsuo-qz-ktej positioning promoted parent-child separation minimized positive reinforcement provided role responsibility promoted rooming-in promoted ajaf-nl-xjgy contact encouraged strengths emphasized taught/modeled caring behavior [...] Taken 08/12/20221999 Parent/Child Attachment Promotion: attachment promoted czmb-ga-ptso positioning promoted parent-child separation minimized positive reinforcement provided role responsibility promoted rooming-in promoted jrvb-ee-txnf contact encouraged strengths emphasized taught/modeled caring behavior [...] well See below for weight and Apgars [facility] [[id number]] Delivery () Delivery date/time: 08/11/2022 5:36 PM [...] ambulates to room 213. [facility]st[facility]s [facility]* Note - Janes Mcgovern RN - 08/13/2022 4:45 PM EST This note was copied from a baby's chart. Discharge instructions reviewed with parents at bedside. Parents educated on care, safe sleep, signs and symptoms to report to sheriff. Reinforced education about safe sleep and SIDS. Mother verbalizes understanding. Mother of denies having any questions at this time. Infants VSWDL. Exclusively fed breast milk. Infant stooling and voiding without difficulty. Parents educated and encouraged to schedule follow up appointment tomorrow or as soon as possible. Infant carried by FOB in car seat. Car seat clicked into base in car. [id number]* Note - Janes Mcgovern RN - 08/13/2022 12:00 PM EST This note was copied from a baby's chart. Assessment completed at this time. Infant resting in crib. Chest rise noted on . Mouth and nares clear. Mother and infant VS WDL. Infant swaddled and resting in crib after assessment. Mother and father have no questions or concerns at this time. [facility] [id number] Obstetrics Note* Note - Minal Lee - [...] other feed, right side. Latch on left [facility]12-01-2022 Obstetrics Note* Note - Janes Mcgovern RN - 08/13/2022 8:00 AM EST This note was copied from a baby's chart. Head to toe assessments performed on mother and at this time. Mother denies any pain and showing no signs of distress. resting in crib swaddled. VS WDL on mother and . Mother had no further concerns or questions. Call light within reach. [facility]OSPITAL [facility]12-01-2022 Hospital course Narrative* Lemuel Lee MD - [...] w/Device KIT As directed. OneTouch Delica Plus [id number] MISC Use with glucometer to check BS [...] Lemuel Lee MD [address] [facility] [id number] Schedule an appointment as soon as possible for a visit in 6 week(s) Routine Post Exam documented in this [facility]12-01-2022 History of Present illness Narrative* Lemuel Lee [...] release tomorrow 2. Breast-feeding [facility] Obstetrics [facility]* Note - Janes Mcgovern [...] diaper change to observe the circumsicion care. [facility]12-01-2022 Note* Nursing Notes - Eneida Wright RN - 08/13/2022 3:48 AM EST Patient , teary eyed states she is exhausted and only had 2 hours of sleep yesterday. Problem solving facilitated and discussed options given to calm and give expressed milk afterfeeding. Patient instructed to call RN if needing assistance with infant calming techniques. Motherverbalizes an understanding. [facility]12-01-2022 Obstetrics Note* Note - Eneida Wright [...] expression. Lanolin provided with instructions. Patient states internet marketing consultant told her she should be using 21 mm flanges but patient was using spectra s1 and doesn't have that size. 21 mm size flanges provided with pumping kit. Instructed on use of hand pump and electric breast pump. Patient verbalizes an understanding. [facility]11-30-2022 Note* Plan of Care - Eneida [...] rooming-in facilitated Parent/Child Attachment Promotion: attachment promoted avgm-hm-bpwe positioning promoted parent-child separation minimized positive reinforcement provided role responsibility promoted rooming-in promoted kgqh-vz-xoof contact encouraged strengths emphasized taught/modeled caring behavior [...] Taken 08/12/20221999 Parent/Child Attachment Promotion: attachment promoted fdxm-pb-sxhc positioning promoted parent-child separation minimized positive reinforcement provided role responsibility promoted rooming-in promoted soqe-hs-zhks contact encouraged strengths emphasized taught/modeled caring behavior [...] rooming-in facilitated Parent/Child Attachment Promotion: attachment promoted bnhi-ct-rzod positioning promoted parent-child separation minimized positive reinforcement provided role responsibility promoted rooming-in promoted fehq-vz-rgpl contact encouraged strengths emphasized taught/modeled caring behavior [...] Taken 08/12/20221999 Parent/Child Attachment Promotion: attachment promoted hxya-ve-zddd positioning promoted parent-child separation minimized positive reinforcement provided role responsibility promoted rooming-in promoted lhqy-gd-yxmn contact encouraged strengths emphasized taught/modeled caring behavior [...] separation minimized encouragement offered diary/feeding log utilized [facility]11-30-2022 Obstetrics Note* Note - Laureen Garza RN - 08/12/2022 7:15 PM EST Bedside report with Tanja Wright RN. Mother resting in bed with no distress noted. swaddled andsleeping in open crib. [facility]11-30-2022 Obstetrics Note* Note - Laureen Garza RN - 08/12/2022 5:00 PM EST Assessments done at this time. Dinner ordered. Parents deny needs. Call light in reach. [facility]11-30-2022 Obstetrics Note* Note - Laureen Garza RN - 08/12/2022 4:45 PM EST Mother with no distress noted. Denies nipple pain. [id number] Obstetrics Note* Note - Minal Lee - [...] to feed on demand, skin to skin [facility] [id number] Obstetrics Note* Note - Laureen Garza RN - 08/12/2022 1:00 PM EST Mother holding infant and states she just finished for 20 minutes. Assessments done at this time. Pt eating lunch. Denies needs at this time. Call light in reach. [facility]* Nursing Notes - HENRY Holcomb - 08/12/2022 12:31 PM EST Water provided. [facility] [id number] Obstetrics Note* Note - HENRY Holcomb - 08/12/2022 12:00 PM EST Help me grow, declined. [facility] [id number] Obstetrics Note* Note - Laureen Garza RN - 08/12/2022 10:00 AM EST Viral Lee at bedside to assist with . [facility]11-30-2022 Obstetrics Note* Note - Minal Lee [...] on demand, skin to skin, monitor eliminations [facility]11-30-2022 Note* Plan of Care - Laureen [...] of care (reference (Adult,Obstetrics,Pediatric) CPG). Outcome: Ongoing [facility]11-30-2022 Obstetrics Note* Note - Laureen Garza RN - 08/12/2022 8:30 AM EST Mother resting in bed holding infant. Assessments done at this time. IV removed. No distress noted in mother or infant. Mother states she is going to breastfeed infant and feels comfortable latching infant. Fresh water provided. Call light in reach. [facility]11-30-2022 Obstetrics Note* Note - Olivia Blanco [...] any needs. Call light within mother's reach. [facility]11-30-2022 Obstetrics Note* Note - Olivia Blanco [...] any needs. Call light within mother's reach. [facility] [id number] Obstetrics Note* Note - Olivia Blanco RN - 08/11/2022 11:40 PM EST This note was copied from a baby's chart. New blood sugar obtained on . 's blood sugar 47. Will continue to monitor. Assessment and vitals obtained on infant and mother. lying comfortably in open crib. Infant shows no signs of distress. Mother denies any needs. Call light within mother's reach. [facility] [id number] Obstetrics Note* Note - Olivia Blanco RN [...] minutes after the completion of the feed. [facility] [id number] Obstetrics Note* Note - Olivia Blanco RN - 08/11/2022 8:30 PM EST This note was copied from a baby's chart. and mother moved over to room #204. placed on far side of room away from open doorway. Infant swaddled and lying in open crib. Infant shows no signs of distress. Mother denies any needs. Call light within mother's reach. [facility]11-29-2022 Obstetrics Note* Note - Olivia Blanco RN - 08/11/2022 7:00 PM EST This note was copied from a baby's chart. Report received from Shivam Savage RN. [facility]11-29-2022 Labor and delivery summary note* L&D [...] well See below for weight and Apgars [facility] [[id number]] Delivery ([place]) Delivery date/time: 08/11/2022 5:36 PM Sex: Male [...] Total: Shoulder Dystocia Shoulder dystocia present?: No [facility]11-29-2022 Note* Nursing Notes - Citlaly Savage RN - 08/11/2022 5:[address] Lee at bedside [facility]11-29-2022 Note* Nursing Notes - Citlaly Savage RN - 08/11/2022 4:[address] Lee calls at this time requesting update on patient. Updated Dr. Lee that patient is complete. Dr. Lee instructs this RN to continue practice pushing with patient. [facility]11-29-2022 Note* Nursing Notes - Citlaly Savage [...] practice push to see where baby moves. [facility]11-29-2022 Note* Nursing Notes - Nannette Cardoza RN - 08/11/2022 2:[address] Lee calls back and gives order to restart pitocin at 14 in 10-15 minutes. [facility]11-29-2022 Note* Nursing Notes - Nannette Cardoza RN - 08/11/2022 2:43 PM EST Call placed to Dr. Lee in regards to prolong decel and interventions such as shutting off pitocin, position changes, vag check, oxygen and LR bolus. Will review strip and call back. [facility]11-29-2022 Note* Nursing Notes - Citlaly Savage RN - 08/11/2022 1:[address] Lee of patient's recent SVE. Dr. Lee instructs to check patient again in aboutan hour. [facility]11-29-2022 Note* Nursing Notes - Citlaly Savage RN - 08/11/2022 1:[address] Lee at bedside [facility]11-29-2022 Note* Nursing Notes - Citlaly Savage RN - 08/11/2022 12:42 PM EST Raven MANSFIELD at bedside for epidural placement [facility]11-29-2022 Note* Nursing Notes - Citlaly Savage RN - 08/11/2022 12:07 PM EST Assessment completed at this time, refer to flow sheet. Patient rating pain a 7/10 and requesting nubain at this time. Patient denies current needs. [id number] Note* Nursing Notes - Citlaly Savage RN - 08/11/2022 9:[address] Lee at bedside [facility]29[facility]* Nursing Notes - Citlaly Savage RN - 08/11/2022 7:00 AM EST Assessment completed at this time, refer to flow sheet. Patient in bed, no distress noted. Patient denies current pain. Plan of care reviewed with patient, patient denies any questions at this time. Call light within reach. [facility]29[facility] History and physical note* Lemuel eLe MD - 08/11/2022 6:30 AM EST Chief [...] time. External monitor: Baseline reassuring with good eozz-mi-nwvf variability, accelerations noted, no decelerations, contractions every 3-4 minutes. Category 1 Assessment and Plan: 1. Intrauterine at 38 weeks 5 days 2. Favorable cervix at term 3. Gestational diabetes Plan: We will proceed with induction. Risks and benefits discussed and the patient desires to proceed. [facility] [id number] Note* Certification - Lemuel Lee MD - 08/11/2022 6:30 AM EST I certify that this patient requires inpatient services at this time. I anticipate the expected length of stay will include at least two midnights. Current treatment plan includes induction and delivery. Plans for post hospitalization care will be discharge to home. [facility]11-29-2022 History and physical note* Lemuel Lee MD [...] time. External monitor: Baseline reassuring with good ltuv-hm-rmco variability, accelerations noted, no decelerations, contractions every 3-4 minutes. Category 1 Assessment and Plan: 1. Intrauterine at 38 weeks 5 days 2. Favorable cervix at term 3. Gestational diabetes Plan: We will proceed with induction. Risks and benefits discussed and the patient desires to proceed. documented in this [facility]11-29-2022 Note* Nursing Notes - Anusha Voss - 08/11/2022 6:[address] Lee at bedside to break water, perform a cervical exam, and place FSE. [facility] [id number] Note* Nursing Notes - Margot Arana RN - 08/11/2022 5:[address] Lee is OK with 0.9% NS for continuous IV fluids. [facility] [id number] Note* Nursing Notes - Anusha Voss - 08/11/2022 5:00 AM EST Assessment completed at this time. Pt resting comfortably in bed with equal chest expansion and unlabored breathing. Call light within reach. [facility] [id number] Note* Nursing Notes - Margot Arana RN - 08/11/2022 3:55 AM EST Urine and covid collected. Pt oriented to room. [facility] [id number] Note* Nursing Notes - Margot Arana RN - 08/11/2022 3:45 AM EST Patient ambulates onto unit. Height and weight obtained. Patient ambulates to room 213. [facility] [id number] History of Present illness Narrative* Ariella Nowak [...] Induction scheduled for 08/11/22. [facility] NoteLemuel Lee MD 08/05/2022 8:14 AM Procedure: Non-Stress Test Indication: Diabetes in Findings: NST: Reactive with GBTBV, + Accelerations, No decelerations. No regular contractions. Cat 1.[facility] Procedure note* Lemuel Lee MD - 08/05/2022 7:40 AM ESTAssociated Order(s): VT NON-STRESS TEST Pre-Procedure Diagnose(s): Diet controlled gestational diabetes mellitus (GDM) in third trimester Post-Procedure Diagnose(s): Diet controlled gestational diabetes mellitus (GDM) in third trimester Procedure: Non-Stress Test Indication: Diabetes in Findings: NST: Reactive with GBTBV, + Accelerations, No decelerations. No regular contractions. Cat1. [facility] Procedure note* Lemuel Lee MD - 08/05/2022 7:40 AM ESTAssociated Order(s): VT NON-STRESS TEST Pre-Procedure Diagnose(s): Diet controlled gestational diabetes mellitus (GDM) in third trimester Post-Procedure Diagnose(s): Diet controlled gestational diabetes mellitus (GDM) in third trimester Procedure: Non-Stress Test Indication: Diabetes in Findings: NST: Reactive with GBTBV, + Accelerations, No decelerations. No regular contractions. Cat1. documented in this [facility]11-17-2022 History of Present illness Narrative* Ariella Nowak [...] on week of 08/10/22. documented in this [facility]11-17-2022 NoteLemuel Lee MD 07/30/2022 3:57 PM Procedure: Non-Stress Test Indication: Diabetes in Findings: NST: Reactive with GBTBV, + Accelerations, No decelerations. No regular contractions. Cat 1. [facility] Procedure note* Lemuel Lee MD - 07/30/2022 3:10 PM ESTAssociated Order(s): VT NON-STRESS TEST Pre-Procedure Diagnose(s): Diet controlled gestational diabetes mellitus (GDM) in third trimester Post-Procedure Diagnose(s): Diet controlled gestational diabetes mellitus (GDM) in third trimester Procedure: Non-Stress Test Indication: Diabetes in Findings: NST: Reactive with GBTBV, + Accelerations, No decelerations. No regular contractions. Cat1. [facility] Procedure note* Lemuel Lee MD - 07/30/2022 3:10 PM ESTAssociated Order(s): VT NON-STRESS TEST Pre-Procedure Diagnose(s): Diet controlled gestational diabetes mellitus (GDM) in third trimester Post-Procedure Diagnose(s): Diet controlled gestational diabetes mellitus (GDM) in third trimester Procedure: Non-Stress Test Indication: Diabetes in Findings: NST: Reactive with GBTBV, + Accelerations, No decelerations. No regular contractions. Cat1. documented in this [facility]11-10-2022 History of Present illness Narrative* Ariella Nowak [...] FAZAL. NST reactive today. documented in this [facility]11-10-2022 Abiola Lee MD 07/23/2022 9:33 AM Procedure: Non-Stress Test Indication: Diabetes in Findings: NST: Reactive with GBTBV, + Accelerations, No decelerations. No regular contractions. Cat 1.[facility] Procedure note* Lemuel Lee MD - 07/23/2022 9:20 AM ESTAssociated Order(s): VT NON-STRESS TEST Pre-Procedure Diagnose(s): Gestational diabetes mellitus (GDM) affecting third Post-Procedure Diagnose(s): Gestational diabetes mellitus (GDM) affecting third Procedure: Non-Stress Test Indication: Diabetes in Findings: NST: Reactive with GBTBV, + Accelerations, No decelerations. No regular contractions. Cat1. [facility]-10[facility] Procedure note* Lemuel Lee MD - 07/23/2022 9:20 AM ESTAssociated Order(s): VT NON-STRESS TEST Pre-Procedure Diagnose(s): Gestational diabetes mellitus (GDM) affecting third Post-Procedure Diagnose(s): Gestational diabetes mellitus (GDM) affecting third Procedure: Non-Stress Test Indication: Diabetes in Findings: NST: Reactive with GBTBV, + Accelerations, No decelerations. No regular contractions. Cat1. documented in this [facility]11-[facility] History of Present illness Narrative* Татьяна [...] Females: Last Mammogram: N/A [facility] Dexa >65: N/A Hx of falls? [...] people? Somewhat difficult - documented in this [id number] History of Present illness Narrative* Ariella Nowak [...] this to be muscular. documented in this [facility]11-04-2022 NoteSNATASHA Alicea 07/17/2022 12:21 PM Procedure: Non-Stress Test Indication: Diabetes in Findings: NST: Reactive with GBTBV, + Accelerations, No decelerations. No regular contractions. Cat 1. [facility]11-04-2022 Procedure note* NATSAHA Garcia - 07/17/2022 11:20 AM EDTAssociated Order(s): VT NON-STRESS TEST Procedure(s): VT NON-STRESS TEST Pre-Procedure Diagnose(s): Supervision of high risk in third trimester; Diet controlled gestational diabetes mellitus (GDM) in third trimester Post-Procedure Diagnose(s): Supervision of high risk in third trimester; Diet controlled gestational diabetes mellitus (GDM) in third trimester Procedure: Non-Stress Test Indication: Diabetes in Findings: NST: Reactive with GBTBV, + Accelerations, No decelerations. No regular contractions. Cat1. [facility]11-04-[facility] Procedure note* NATASHA Garcia - 07/17/2022 11:20 AM EDTAssociated Order(s): VT NON-STRESS TEST Procedure(s): VT NON-STRESS TEST Pre-Procedure Diagnose(s): Supervision of high risk in third trimester; Diet controlled gestational diabetes mellitus (GDM) in third trimester Post-Procedure Diagnose(s): Supervision of high risk in third trimester; Diet controlled gestational diabetes mellitus (GDM) in third trimester Procedure: Non-Stress Test Indication: Diabetes in Findings: NST: Reactive with GBTBV, + Accelerations, No decelerations. No regular contractions. Cat1. documented in this [facility]10-[facility] History of Present illness Narrative* Shavonne Ba LPN - 07/13/2022 1:00 PM EDT 34.4, OB TX., Patient is 34.4 weeks . Per My Chart message she has right sided rib and under breast pain. Patient was advised she needs seen for an appointment today. OB Tx scheduled per [place]. * Josse Walter MD - 07/13/2022 1:00 PM EDT [facility] [place] 27 [facility].o. at 34w4d 1. gDM 2. [...] Department Center 07/17/2022 11:00 AM CHIOMA GAL [id number] OB ULTRASOUND, AVG 043OU CHIOMA GAL 07/17/2022 11:20 AM NATASHA Garcia [id number] CHIOMA GAL documented in this [facility]10-27-2022 History of Present illness Narrative* Clara Gorman RN - 07/09/2022 9:00 AM EDT Edema of fingers and ankles reported. NST done for GDM. * Lemuel Lee MD - 07/09/2022 9:00 AM EDT Patient doing well. NO concerns. Good movement 1. GDM: Blood sugars remain well controlled on no meds. HgbA1C and OB ultrasound with next visit. NST reactive today. documented in this [facility]10-27-2022 NoteLemuel Lee MD 07/09/2022 9:06 AM Procedure: Non-Stress Test Indication: Diabetes in Findings: NST: Reactive with GBTBV, + Accelerations, No decelerations. No regular contractions. Cat 1. [facility] Procedure note* Lemuel Lee MD - 07/09/2022 9:00 AM EDTAssociated Order(s): VT NON-STRESS TEST Pre-Procedure Diagnose(s): Diet controlled gestational diabetes mellitus (GDM) in third trimester Post-Procedure Diagnose(s): Diet controlled gestational diabetes mellitus (GDM) in third trimester Procedure: Non-Stress Test Indication: Diabetes in Findings: NST: Reactive with GBTBV, + Accelerations, No decelerations. No regular contractions. Cat1. [facility]10-[facility] Procedure note* Lemuel Lee MD - 07/09/2022 9:00 AM EDTAssociated Order(s): VT NON-STRESS TEST Pre-Procedure Diagnose(s): Diet controlled gestational diabetes mellitus (GDM) in third trimester Post-Procedure Diagnose(s): Diet controlled gestational diabetes mellitus (GDM) in third trimester Procedure: Non-Stress Test Indication: Diabetes in Findings: NST: Reactive with GBTBV, + Accelerations, No decelerations. No regular contractions. Cat1. documented in this [facility]10-17-2022 History of Present illness Narrative* Clara Gorman RN - 06/29/2022 9:30 AM EDT NST done today for GDM. * Lemuel Lee MD - 06/29/2022 9:30 AM EDT Patient doing well. No concerns. 1. GDM: Blood sugars well controlled on no meds. Next HgbA1C and ultrasound at approx 35 weeks. NSTreactive. documented in this [facility]10-17-2022 Abiola Lee MD 06/29/2022 9:59 AM Procedure: Non-Stress Test Indication: Diabetes in Findings: NST: Reactive with GBTBV, + Accelerations, No decelerations. No regular contractions. Cat 1.[facility] Procedure note* Lemuel Lee MD - 06/29/2022 9:30 AM EDTAssociated Order(s): VT NON-STRESS TEST Pre-Procedure Diagnose(s): Gestational diabetes mellitus (GDM) affecting third Post-Procedure Diagnose(s): Gestational diabetes mellitus (GDM) affecting third Procedure: Non-Stress Test Indication: Diabetes in Findings: NST: Reactive with GBTBV, + Accelerations, No decelerations. No regular contractions. Cat1. [facility] Procedure note* Lemuel Lee MD - 06/29/2022 9:30 AM EDTAssociated Order(s): VT NON-STRESS TEST Pre-Procedure Diagnose(s): Gestational diabetes mellitus (GDM) affecting third Post-Procedure Diagnose(s): Gestational diabetes mellitus (GDM) affecting third Procedure: Non-Stress Test Indication: Diabetes in Findings: NST: Reactive with GBTBV, + Accelerations, No decelerations. No regular contractions. Cat1. documented in this [facility]10-13-[facility] History of Present illness Narrative* Clara Gorman RN - 06/25/2022 9:30 AM EDT NST done for GDM. * Lemuel Lee MD - 06/25/2022 9:30 AM EDT Patient doing well. No concerns 1. GDM: Blood sugars well controlled on no meds. Next HgbA1C and ultrasound at approx 35 weeks. NSTreactive. documented in this [facility]10-13-2022 Abiola Lee MD 06/25/2022 9:55 AM Procedure: Non-Stress Test Indication: Diabetes in Findings: NST: Reactive with GBTBV, + Accelerations, No decelerations. No regular contractions. Cat 1. [facility]10-13-2022 Procedure note* Lemuel Lee MD - 06/25/2022 9:30 AM EDTAssociated Order(s): VT NON-STRESS TEST Pre-Procedure Diagnose(s): Diet controlled gestational diabetes mellitus (GDM) in third trimester Post-Procedure Diagnose(s): Diet controlled gestational diabetes mellitus (GDM) in third trimester Procedure: Non-Stress Test Indication: Diabetes in Findings: NST: Reactive with GBTBV, + Accelerations, No decelerations. No regular contractions. Cat1. [facility]10-13-2022 Procedure note* Lemuel Lee MD - 06/25/2022 9:30 AM EDTAssociated Order(s): VT NON-STRESS TEST Pre-Procedure Diagnose(s): Diet controlled gestational diabetes mellitus (GDM) in third trimester Post-Procedure Diagnose(s): Diet controlled gestational diabetes mellitus (GDM) in third trimester Procedure: Non-Stress Test Indication: Diabetes in Findings: NST: Reactive with GBTBV, + Accelerations, No decelerations. No regular contractions. Cat1. documented in this [facility]10-06-2022 NoteOB ULTRASOUND PROCEDURE REFERRING PHYSICIAN: Dr. Lee TECHNOLOGIST: Radha Simon PROCEDURE PERFORMED BY: Radha Simon PROCEDURE DATE: 06/18/2022 INDICATIONS: Gestational diabetic PROCEDURE DETAILS: The lie is Vertex. EFW is 1677g, which is the 48.5 percentile. The umbilical artery S/D ratio is 2.85. The heart rate is 130 bpm. 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 documented in this [facility] NoteLemuel Lee MD 06/18/2022 10:31 AM Procedure: Non-Stress Test Indication: Diabetes in Findings: NST: Reactive with GBTBV, + Accelerations, No decelerations. No regular contractions. Cat 1. [facility]10-06-2022 Procedure note* Lemuel Lee MD - 06/18/2022 10:00 AM EDTAssociated Order(s): VT NON-STRESS TEST Pre-Procedure Diagnose(s): Diet controlled gestational diabetes mellitus (GDM) in third trimester Post-Procedure Diagnose(s): Diet controlled gestational diabetes mellitus (GDM) in third trimester Procedure: Non-Stress Test Indication: Diabetes in Findings: NST: Reactive with GBTBV, + Accelerations, No decelerations. No regular contractions. Cat1. [facility]10-06-2022 Procedure note* Lemuel Lee MD - 06/18/2022 10:00 AM EDTAssociated Order(s): VT NON-STRESS TEST Pre-Procedure Diagnose(s): Diet controlled gestational diabetes mellitus (GDM) in third trimester Post-Procedure Diagnose(s): Diet controlled gestational diabetes mellitus (GDM) in third trimester Procedure: Non-Stress Test Indication: Diabetes in Findings: NST: Reactive with GBTBV, + Accelerations, No decelerations. No regular contractions. Cat1. documented in this [facility] History of Present illness Narrative* Татьяна Villegas RN - 06/17/2022 3:27 PM EDT [facility] SELF-MANAGEMENT EDUCATION AND SUPPORT PROGRAM [...] and Family: Three times a week Attends Yazidism Services: Never Active Member of Clubs or [...] Current/Pertinent Medications: Current Outpatient Medications Ordered in [facility] Medication Sig Dispense Refill cholecalciferol, [...] tablet by mouth daily . No current [facility]-ordered facility-administered medications on file. 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 Tips given for more comfortable [...] the referring healthcare provider. documented in this [id number] History of Present illness Narrative* Marianna Lauren, [...] results today. All wnl except after eating German food which included higher carbohydr ate content. 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 Lives w/ . Denies N/V/D; has constipation occasionally. C/o heartburn with long periods without food during the day. Pt reports adjusting eating since GDM dx and has reduced carbohydrate intake and including more snacks to prevent heartburn. Primary Support - Food Prep - self Grocery Shopping - self Cultural or Yazidism Dietary Needs - none Pertinent Food/Drug Interactions [...] prescription for Current Outpatient Medications Ordered in [facility] Medication Sig Dispense Refill metFORMIN (GLUCOPHAGE) 500 MG tablet Take 1 (one) tablet (500 mg total) by mouth daily with breakfast . 30 tablet 11 No current [facility]-ordered facility-administered medications on file. Pt [...] true [0.00] Estimated Nutritional Needs: Calorie Needs: 0370-2788 (20-23 kcal/kg + 450 for 3rd trimester) [...] the referring healthcare provider. documented in this [id number] History of Present illness Narrative* Shavonne Ba LPN - 05/22/2022 2:00 PM EDT 27.1, OB TX. Has not felt the baby move since last night. * Josse Walter MD - 05/22/2022 2:00 PM EDT [facility] [place] 27 y.o. at 27w1d Uncomplicated Ms. Petty [...] CHIOMA GAL 06/03/2022 10:00 AM CHIOMA LORENA [id number] OB ULTRASOUND, AVG 043OU [facility] GAL 06/11/2022 9:30 AM Josse Walter MD [id number] CHIOMA GAL documented in this encounterMer[facility]09[facility] Procedure note* Josse Walter MD - 05/22/2022 2:00 PM EDTAssociated Order(s): VT NON-STRESS TEST Procedure(s): VT NON-STRESS TEST Pre-Procedure Diagnose(s): Decreased movement, second trimester, fetus 1 Post-Procedure Diagnose(s): Decreased movement, second trimester, fetus 1 Non-stress Test Gestational age: 27w1d Indication: Decreased movement Baseline: 140 bpm 10x10s: N/A Variability: moderate Decelerations: absent Contractions: absent Duration >20 minutes Comments: Reassuring for gestational age 0905/22/22 Josse Walter MD [facility]09-09-2022 Procedure note* Josse Walter MD - 05/22/2022 2:00 PM EDTAssociated Order(s): VT NON-STRESS TEST Procedure(s): VT NON-STRESS TEST Pre-Procedure Diagnose(s): Decreased movement, second trimester, fetus 1 Post-Procedure Diagnose(s): Decreased movement, second trimester, fetus 1 Non-stress Test Gestational age: 27w1d Indication: Decreased movement Baseline: 140 bpm 10x10s: N/A Variability: moderate Decelerations: absent Contractions: absent Duration >20 minutes Comments: Reassuring for gestational age 0905/22/22 Josse Walter MD documented in this encounterMer[facility]08-18-[facility] History of Present illness Narrative* Ariella [...] pt will think about. documented in this encounterMer[facility]07-28-2022 Note20 WEEK OB ULTRASOUND PROCEDURE REFERRING [...] no previa noted. Normal fluid amount noted. [facility]07-28-2022 History of Present illness Narrative* Shavonne Ba LPN - 04/09/2022 10:30 AM EDT 21.0, Anatomy scan. * Josse Walter MD - 04/09/2022 10:30 AM EDT [facility] [place] 27 y.o. at 21w0d Uncomplicated She reports burning with urination, but this resolves with adequate hydration. She was advised to call if symptoms persist. Today: Normal anatomy, but unable to see outflow tracts. - Return OB visit in 3 weeks with U/S for outflow tracts. documented in this encounterMer[facility]06-30-[facility]22 History of Present illness Narrative* Ariella [...] Patient tolerated venipuncture well. documented in this [facility]06-30-2022 Miscellaneous Notes* Addendum Note - Clara Gorman RN - 03/12/2022 3:00 PM EDTAddended by: CLARA GORMAN on: 03/12/2022 03:53 PM Modules accepted: Orders * Addendum Note - Clara Gorman RN - 03/12/2022 3:00 PM EDTAddended by: CLARA GORMAN on: 03/12/2022 04:14 PM Modules accepted: Orders documented in this [facility]06-30-2022 Note* Addendum Note - Clara Gorman RN - 03/12/2022 3:00 PM EDTAddended by: CLARA GORMAN on: 03/12/2022 03:53 PM Modules accepted: Orders [facility]06-30-2022 Note* Addendum Note - Clara Gorman RN - 03/12/2022 3:00 PM EDTAddended by: CLARA GORMAN on: 03/12/2022 04:14 PM Modules accepted: Orders [facility]05-23-2022 History of Present illness Narrative* Josse Walter MD - 02/02/2022 2:50 PM EDT [facility] [place] 26 y.o. at 11w4d 1. Rh neg [...] Time Provider Department Center 03/12/2022 2:30 PM [facility] [id number] OB ULTRASOUND, AVG 043OU [facility] 03/12/2022 3:00 PM Lemuel Lee MD [id number] [facility] documented in this encounterMer[facility]04-29-2022 History of Present illness Narrative* Ariella [...] visit in 2-3 weeks. documented in this encounterMer[facility]04-06-2022 History of Present illness Narrative* Lemuel [...] Friends and Family: Not on file Attends Yazidism Services: Not on file Active Member of [...] was likely aided with Dragon, and electronic dictaphone mechanic device. Please excuse any errors or omissions that may not have been recognized at the time of this encounter. documented in this encounterMer[facility]03-14-2022 History of Present illness Narrative* Lemuel [...] workup. 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 Patient does have an element of PCO [...] within this encounter was likely aided with nPickeron, and electronic dictaphone mechanic device. Please excuse any errors or omissions that may not have been recognized at the time of this encounter. 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 documented [facility]* Diagnosis Pelvic pain in , antepartum, first trimester- Primary [facility]* Diagnosis 8 weeks gestation of - Primary state, incidental [facility]* Diagnosis 8 weeks gestation of state, incidental [facility]* Diagnosis Dysuria- Primary documented [facility]* Diagnosis Ultrasound scan done for inability to hear heart tones Abnormality in heart rate/rhythm, antepartum condition or complication documented [facility]* Diagnosis Encounter for supervision of normal first in second trimester- Primary Supervision of normal first 17 weeks gestation of state, incidental [facility]* Diagnosis care in second trimester- Primary documented [facility] this [facility]* Diagnosis 20 weeks gestation of state, incidental [facility]* Diagnosis Encounter for supervision of normal first in second trimester- Primary Supervision of normal first 24 weeks gestation of state, incidental documented [facility]* Diagnosis Encounter for follow-up ultrasound of anatomy documented [facility]* Diagnosis Decreased movements in second trimester, single or unspecified fetus- Primary documented [facility]* Diagnosis Diet controlled gestational diabetes mellitus (GDM) in third trimester documented [facility]* Diagnosis Diet controlled gestational diabetes mellitus (GDM), antepartum [facility]* Diagnosis Diet controlled gestational diabetes mellitus (GDM), antepartum- Primary [facility]* Diagnosis Diet controlled gestational diabetes mellitus (GDM) in third trimester- Primary Encounter for supervision of high risk in third trimester, antepartum 31 weeks gestation of state, incidental Ultrasound scan done for inability to hear heart tones Abnormality in heart rate/rhythm, antepartum condition or complication documented in this encounter [facility]* Diagnosis Diet controlled gestational diabetes mellitus [...] of state, incidental [facility]* Diagnosis Diet controlled gestational diabetes mellitus (GDM) in third trimester- Primary Encounter for supervision of high risk in third trimester, antepartum 34 weeks gestation of state, incidental [facility]* Diagnosis RUQ pain- Primary Abdominal pain, right upper quadrant Abnormal maternal glucose tolerance, antepartum Diet controlled gestational diabetes mellitus (GDM) in third trimester documented [facility]* Diagnosis Supervision of high risk in third trimester- Primary Unspecified high-risk Diet controlled gestational diabetes mellitus (GDM) in third trimester 35 weeks gestation of state, incidental [facility]* Diagnosis Preventative health care- Primary Routine general medical examination at a health care facility [facility] Diagnosis Diet controlled gestational diabetes mellitus (GDM) in third trimester- Primary Supervision of high risk in third trimester Unspecified high-risk 36 weeks gestation of state, incidental [facility]* Diagnosis Diet controlled gestational diabetes mellitus (GDM) in third trimester- Primary Supervision of high risk in third trimester Unspecified high-risk 37 weeks gestation of state, incidental documented [facility] this [facility]* Diagnosis Diet controlled gestational diabetes mellitus (GDM) in third trimester- Primary Supervision of high risk in third trimester Unspecified high-risk 37 weeks gestation of state, incidental [facility]* Diagnosis (spontaneous vaginal delivery)- Primary Normal delivery Diet controlled gestational diabetes mellitus (GDM) in third trimester Encounter for induction of labor Encounter for induction of labor documented [facility]* Diagnosis Disruption of episiotomy wound in the puerperium- Primary Disruption of perineal wound, unspecified as to episode of care in documented [facility]* Diagnosis Viral URI with cough- Primary Acute upper respiratory infections of unspecified site Acute cough [facility]* Diagnosis Preventative health care- Primary Routine general medical examination at a health care facility Anxiety Anxiety state, unspecified [facility]* Diagnosis Anxiety- Primary Anxiety state, unspecified [facility]* Diagnosis Acute bronchitis, unspecified organism- Primary Acute cough documented [facility] this [facility]* Diagnosis Well woman exam with routine gynecological exam- Primary Routine gynecological examination Cervical cancer screening Screening for malignant neoplasm of the cervix documented in this encounter [facility]* Diagnosis Sore throat- Primary Acute pharyngitis documented in this encounter [facility] note* Diagnosis Acute non-recurrent frontal sinusitis- Primary documented in this encounter [facility]* Diagnosis Anxiety- Primary Anxiety state, unspecified documented in this encounter [facility] note* Diagnosis Anxiety- Primary Anxiety state, unspecified Chronic fatigue Other malaise and fatigue documented in this encounter [facility] note* Diagnosis Anxiety and depression- Primary documented in this encounter [facility] note* Diagnosis Anxiety and depression- Primary documented in this encounter [facility] note* Diagnosis Acute rhinosinusitis- Primary documented in this encounter [facility] Work Phone: Evaluation note* Diagnosis Anxiety and depression- Primary Anxiety and depression- Primary Unspecified mood (affective) disorder (HCC)- Primary as incidental finding documented in this encounter [facility] note* Diagnosis Anxiety and depression- Primary Anxiety and depression- Primary Unspecified mood (affective) disorder (HCC)- Primary documented in this encounter [facility] note* Diagnosis Anxiety and depression- Primary Anxiety and depression- Primary Anxiety and depression- Primary [facility] Attachments The following attachments cannot be sent through Care Everywhere. * : Vaginal Delivery ([place]) documented in this encounterMer[facility] HospitalInstructions* Attachments The following attachments cannot be sent through Care Everywhere. * Infertility ([place]) documented in this encounterMercy [facility] HospitalInstructions* Attachments The following attachments cannot be sent through Care Everywhere. * URI (Upper Respiratory Infection): Viral ([place]ovan) documented in this encounterMercy [facility] HospitalInstructions* Attachments The following attachments cannot be sent through Care Everywhere. * Acute Bronchitis or Chest Cold Care Instructions ([facility]) ([place]) documented in this encounterMercy [facility] HospitalInstructions* Attachments The following attachments cannot be sent through Care Everywhere. * Female Exams and Screenings ([facility]) ([place]) [facility]* Attachments The following attachments cannot be sent through Care Everywhere. * Sinusitis: Acute ([place]) documented in this [facility] Author Nel Ruff [facility] Note Date/Time April 27, 2025 11 :53am [facility] [address] [place] [address], [address] [place] [address] OFFICE VISIT Date of Service: 04/27/25 MR#: [id number] Acct: [id number] Name: DRAKE PETTY Rep #: [id number] : 1995 Provider: BRET Ruff Age/Sex: 30/F Location: [facility] Status: Signed Intake Vital Signs 03/01/25 13:22 03/30/25 13:58 04/27/25 11:42 Height 5 ft 4 in 5 ft 4 in 5 ft 4 in Weight: 177 lb 7 oz BMI 30.4 BP 105/69 Intake Visit Reasons: 21 wk ob Chief Complaint: 21wk OB Newspaper Writer Required: No Is patient in pain?: No [...] 1 current occupational status: employed 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 stopped at first visit. (6) Depression [...] Cosigner Signature: Date (if applicable) CC: ~ [facility] Work Phone: Reason for referral (narrative)No reason for referral information availableWHolzer [facility] System Work Phone: Assessments Diagnosis Weight gain - [...] FoundDocuments on File Type Date Recorded Patient Icu Specialist Expl anation Advance Directives and Living Will Documents on File Type Date Recorded Patient Icu Specialist Expl anation Advance Directives and Livin g Will 01/29/2020 3:41 PM Documents on File Type Date Recorded Patient Icu Specialist Expl anation Advance Directives/Living Will 08/11/2022 3:51 AM ADA History of Present Illness * Татьяна Brooke, HYDRAULIC DREDGE OPERATOR - 09/25/2019 5:36 PM EST Subjective [...] will consider sending her to endocrinology in [place]. Electronically signed by Татьяна Brooke [facility] * Helen Shoemaker RN - 10/12/2019 4:35 [...] laser therapy. Acne can be treated with lzru-krm-nqkyxov medicines. Look for ones that have benzoyl [...] Log into your personal health record on [email or web address] and enter K559 in the Education box to learn more about Polycystic Ovary Syndrome: Care Instructions. Current as of: November 01, 2018 Content Version: 12.3 6633-2698 [employer] Care instructions adapted under license by your healthcare professional. If you have questions about a medical condition or this instruction, always ask your healthcare professional. [employer] disclaims any warranty or liability for your [...] laser therapy. Acne can be treated with wbet-bji-tjsjuqp medicines. Look for ones that have benzoyl [...] Log into your personal health record on [email or web address] and enter K559 in the Education box to learn more about Polycystic Ovary Syndrome: Care Instructions. Current as of: November 01, 2018 Content Version: 12.3 7717-1004 [employer] Care instructions adapted under license by your healthcare professional. If you have questions about a medical condition or this instruction, always ask your healthcare professional. [employer] disclaims any warranty or liability for your use of this information. documented in this encounter Reason for Referral Status Reason Specialty Diagnoses / Procedures Referred By Contact Referred To Contact Pending Review Specialty Services Required/Patie nt's Best Interest Endocrinology/M etabolism Diagnoses Weight gain PCOS (polycystic ovarian syndrome) Татьяна Brooke, MED [address] [place] [address] Emmanuelle Lopez MD [address] [facility] [address] [place] [address] Status Reason Specialty Diagnoses / Procedures Referred By Contact Referred To Contact Authorized Specialty Services Required/Patien t's Best Interest Endocrinology/M etabolism Diagnoses Weight gain PCOS (polycystic ovarian syndrome) Татьяна Brooke, MED [address] [place] [address] Specialty Diagnoses / Procedures Referred By Contac t Referred To Contact Diagnoses 8 weeks gestation of Procedures US OB DATING ABDOMINAL < 14WEEKS Josse Walter MD [address] [place] [phone] Referral ID Status Reason Start Date Expiration Date V isits Requested Visits Authorized [id number] Auth Not Needed 01/09/2022 02/03/2023 1 1 Referral ID Status Reason Start Date Expiration Date Visits Re quested Visits Authorized [id number] Closed 01/09/2022 02/03/2023 1 1 Specialty Diagnoses / Procedures Referred By Contac t Referred To Contact Diagnoses Ultrasound scan done for inability to hear heart tones Procedures US OB DATING ABDOMINAL < 14WEEKS Josse Walter MD [address] [place] [phone] Referral ID Status Reason Start Date Expiration Date V isits Requested Visits Authorized [id number] New Request 02/02/2022 02/27/2023 1 1 Specialty Diagnoses / Procedures Referred By Contac t Referred To Contact Diagnoses 20 weeks gestation of Procedures US OB ANATOMY Jessica, Josse C, MD [address] [place] [phone] Referral ID Status Reason Start Date Expiration Date Visits Re quested Visits Authorized [id number] Closed 03/19/2022 04/13/2023 1 1 Specialty Diagnoses / Procedures Referred By Contac t Referred To Contact Diagnoses Encounter for follow-up ultrasound of anatomy Procedures US OB LIMITED/AMNIOTIC FLUID Josse Walter MD [address] [place] [address] [id number] Referral ID Status Reason Start Date Expiration Date Visits Re quested Visits Authorized [id number] Closed 04/13/2022 05/08/2023 1 1 Specialty Diagnoses / Procedures Referred By Contac t Referred To Contact Diagnoses Diet controlled gestational diabetes mellitus (GDM) in third trimester Procedures ECG Lemuel Lee MD [address] [facility] [address] [place] [phone] Referral ID Status Reason Start Date Expiration Date V isits Requested Visits Authorized [id number] New Request 06/11/2022 07/06/2023 1 1 Specialty Diagnoses / Procedures Referred By Contac t Referred To Contact Diagnoses Diet controlled gestational diabetes mellitus (GDM) in third trimester Procedures US OB GROWTH/DATING > 14WEEKS Lemuel Lee MD [address] [facility] [address] [place] [phone] Referral ID Status Reason Start Date Expiration Date Visits Re quested Visits Authorized [id number] Closed 06/11/2022 07/06/2023 1 1 Referral ID Status Reason Start Date Expiration Date V isits Requested Visits Authorized [id number] Auth Not Needed 07/09/2022 08/03/2023 1 1 Specialty Diagnoses / Procedures Referred By Contac t Referred To Contact Behavorist (Outpatient Social Work) Diagnoses Anxiety and depression Keyla Meneses, HYDRAULIC DREDGE OPERATOR [address] [place] [address] Referral ID Status Reason Start Date Expiration Date V isits Requested Visits Authorized [id number] Authorized 04/27/2024 04/27/2025 1 1 Specialty Diagnoses / Procedures Referred By Contac t Referred To Contact Psychiatry Diagnoses Anxiety and depression Keyla Meneses, HYDRAULIC DREDGE OPERATOR [address] [place] [address] [facility] [address] [place] [address] Referral ID Status Reason Start Date Expiration Date V isits Requested Visits Authorized [id number] Authorized 05/18/2024 05/18/2025 1 1 Chief Complaint [...] 22, 2025 3:33pm PCOS (polycystic ovarian syndrome) [facility] 2024 3:33pm May 22, 2025 3:33pm Supervision of high-risk [facility] 2024 3:33pm Chief Complaint Admit Date [...] 22, 2025 3:33pm PCOS (polycystic ovarian syndrome) [facility] 2024 3:33pm May 22, 2025 3:33pm Supervision of high-risk [facility] 2024 3:33pm Low lying placenta, antepartum [...] 22, 2025 3:33pm PCOS (polycystic ovarian syndrome) [facility] 2024 3:33pm May 22, 2025 3:33pm Supervision of high-risk [facility] 2024 3:33pm Low lying placenta, antepartum May [...] section and content) DATE CREATED AUTHOR 03/08/2018 [facility] DATE CREATED AUTHOR AUTHOR'S ORGANIZ ATION 04/23/2019 [facility] DATE CREATED AUTHOR AUTHOR'S ORGANIZ ATION 01/08/2023 [facility] DATE CREATED AUTHOR AUTHOR'S ORGANIZ ATION 12/10/2023 [facility] DATE CREATED AUTHOR AUTHOR'S ORGANIZ ATION 12/13/2023 [facility] DATE CREATED AUTHOR AUTHOR'S ORGANIZ ATION 06/19/2024 [facility] DATE CREATED AUTHOR AUTHOR'S ORGANIZ ATION 11/11/2024 [facility] DATE CREATED AUTHOR AUTHOR'S ORGANIZ ATION 06/18/2025 [facility] DATE CREATED AUTHOR AUTHOR'S ORGANIZ ATION 07/17/2025 [facility] DATE CREATED AUTHOR AUTHOR'S ORGANIZ ATION 07/25/2025 [facility] Reason for Visit (unrecogniz ed section [...] DATING ABDOMINAL < 14WEEKS Josse Walter MD [address] [employer] [address] [phone] Referral ID Status Reason Start Date Expiration Date Visits Re quested Visits Authorized [id number] Closed 01/09/2022 02/03/2023 1 1 Reason Comments Urinary Pain 11.4,Patient with dy suria, frequency, urgency Specialty Diagnoses / Procedures Referred By Contac t Referred To Contact Diagnoses Ultrasound scan done for inability to hear heart tones Procedures US OB DATING ABDOMINAL < 14WEEKS Josse Walter MD [address] [place] [phone] Referral ID Status Reason Start Date Expiration Date V isits Requested Visits Authorized [id number] New Request 02/02/2022 02/27/2023 1 1 Reason Comments 17.0 Reason Comments 21.0, Anatomy scan. Specialty Diagnoses / Procedures Referred By Contac t Referred To Contact Diagnoses 20 weeks gestation of Procedures US OB ANATOMY Josse Walter MD [address] [phone] Referral ID Status Reason Start Date Expiration Date Visits Re quested Visits Authorized [id number] Closed 03/19/2022 04/13/2023 1 1 Reason Comments Routine Visit Specialty Diagnoses / Procedures Referred By Contac t Referred To Contact Diagnoses Encounter for follow-up ultrasound of anatomy Procedures US OB LIMITED/AMNIOTIC FLUID Josse Walter MD [address] [phone] Referral ID Status Reason Start Date Expiration Date Visits Re quested Visits Authorized [id number] Closed 04/13/2022 05/08/2023 1 1 Reason Comments 27.1, OB [place]. Has not felt the baby move since last night. Specialty Diagnoses / Procedures Referred By Contac t Referred To Contact Diagnoses Diet controlled gestational diabetes mellitus (GDM) in third trimester Procedures ECG Lemuel Lee MD [address] [phone] Referral ID Status Reason Start Date Expiration Date V isits Requested Visits Authorized [id number] New Request 06/11/2022 07/06/2023 1 1 Specialty Diagnoses / Procedures Referred By Contac t Referred To Contact Nutrition Diagnoses Diet controlled gestational diabetes mellitus (GDM), antepartum Lemuel Lee MD [address] [address] [facility] [address] [place] [phone] Referral ID Status Reason Start Date Expiration Date V isits Requested Visits Authorized [id number] Authorized 06/12/2022 06/12/2023 5 5 Reason Comments Diabetes Mellitus Specialty Diagnoses / Procedures Referred By Contac t Referred To Contact Nutrition Diagnoses Diet controlled gestational diabetes mellitus (GDM), antepartum Lemuel Lee MD [address] [place] [phone] [facility] Services [facility] [place] [address] Reason Comments 31.0 with growth US and NST for GDM Specialty Diagnoses / Procedures Referred By Contac t Referred To Contact Diagnoses Diet controlled gestational diabetes mellitus (GDM) in third trimester Procedures US OB GROWTH/DATING > 14WEEKS Lemuel Lee MD [address] [place] [phone] Referral ID Status Reason Start Date Expiration Date Visits Re quested Visits Authorized [id number] Closed 06/11/2022 07/06/2023 1 1 Reason Comments [...] Contact Lemuel Lee MD [address] [place] [phone] [facility] Referral ID Status Reason Start Date Expiration Date Visits Re quested Visits Authorized [id number] 1 1 Reason Comments Follow-up Episiotomy wound [...] done Reason Onset Date Comments Care coordination [facility] 04/28/2024 Reason Onset Date Comments Care coordination [facility] 05/05/2024 Reason Comments Anxiety Patient states [...] done Reason Onset Date Comments Care coordination [facility] 05/19/2024 Reason Onset Date Comments Medication Refill 07/27/2024 Reason Onset Date Comments Medication Refill 10/02/2024 Reason Comments Sinus Problem Pt states sinus pres sure, congestion, and change in color of mucus. Pt states sx started Wednesday. Care Teams (unrecognized sec tion and content) Poultry Debeaker Relationship Specialty Start Date End Date Anand Cooley DO PCP - General Family Medicine 04/21/17 Poultry Debeaker Relationship Specialty Start Date End Date Anand Cooley DO PCP - General Family Medicine 04/21/17 Poultry Debeaker Relationship Specialty Start Date End Date Anand Cooley DO PCP - General Family Medicine 04/21/17 Poultry Debeaker Relationship Specialty Start Date End Date Anand Cooley DO PCP - General Family Medicine 04/21/17 Poultry Debeaker Relationship Specialty Start Date End Date Anand Cooley DO PCP - General Family Medicine 04/21/17 Poultry Debeaker Relationship Specialty Start Date End Date Anand Cooley DO PCP - General Family Medicine 04/21/17 Poultry Debeaker Relationship Specialty Start Date End Date Anand Cooley DO PCP - General Family Medicine 04/21/17 Poultry Debeaker Relationship Specialty Start Date End Date Anand Cooley DO PCP - General Family Medicine 04/21/17 Poultry Debeaker Relationship Specialty Start Date End Date Anand Cooley DO PCP - General Family Medicine 04/21/17 Poultry Debeaker Relationship Specialty Start Date End Date Anand Cooley DO PCP - General Family Medicine 04/21/17 Poultry Debeaker Relationship Specialty Start Date End Date Anand Cooley, DO PCP - General Family Medicine 04/21/17 Poultry Debeaker Relationship Specialty Start Date End Date Татьяна Brooke, HYDRAULIC DREDGE OPERATOR PCP - General Family Medicine 10/11/19 Eunice Del Angel, HYDRAULIC DREDGE OPERATOR [address] [facility] [address] [place] [address] Nurse Practitioner Obstetrics/Gynecology 02/09/19 Poultry Debeaker Relationship Specialty Start Date End Date Татьяна Brooke, HYDRAULIC DREDGE OPERATOR [address] [place] [address] PCP - General Family Medicine 10/11/19 Eunice Del Angel, HYDRAULIC DREDGE OPERATOR [address] [place] [address] Nurse Practitioner Obstetrics/Gynecology 02/09/19 Poultry Debeaker Relationship Specialty Start Date End Date Anand Cooley DO PCP - General Family Medicine 04/21/17 Poultry Debeaker Relationship Specialty Start Date End Date Anand Cooley DO PCP - General Family Medicine 04/21/17 Poultry Debeaker Relationship Specialty Start Date End Date Anand Cooley DO PCP - General Family Medicine 04/21/17 Poultry Debeaker Relationship Specialty Start Date End Date Anand Cooley DO PCP - General Family Medicine 04/21/17 Poultry Debeaker Relationship Specialty Start Date End Date Anand Cooley DO PCP - General Family Medicine 04/21/17 Poultry Debeaker Relationship Specialty Start Date End Date Anand Cooley DO PCP - General Family Medicine 04/21/17 Poultry Debeaker Relationship Specialty Start Date End Date Татьяна Brooke, HYDRAULIC DREDGE OPERATOR [address] [place] [address] PCP - General Family Medicine 10/11/19 Eunice Del Angel, HYDRAULIC DREDGE OPERATOR [address] [place] [address] Nurse Practitioner Obstetrics/Gynecology 02/09/19 Poultry Debeaker Relationship Specialty Start Date End Date Anand Cooley DO PCP - General Family Medicine 04/21/17 Poultry Debeaker Relationship Specialty Start Date End Date Anand Cooley DO PCP - General Family Medicine 04/21/17 Poultry Debeaker Relationship Specialty Start Date End Date Anand Cooely DO PCP - General Family Medicine 04/21/17 Poultry Debeaker Relationship Specialty Start Date End Date Anand Cooley DO PCP - General Family Medicine 04/21/17 Poultry Debeaker Relationship Specialty Start Date End Date Татьяна Brooke, HYDRAULIC DREDGE OPERATOR [address] [place] [address] PCP - General Family Medicine 10/11/19 Eunice Del Angel, MED [address] [place] [address] Nurse Practitioner Obstetrics/Gynecology 02/09/19 Poultry Debeaker Relationship Specialty Start Date End Date Татьяна Brooke, HYDRAULIC DREDGE OPERATOR [address] [place] [address] PCP - General Family Medicine 10/11/19 Eunice Del Angel, MED [address] [place] [address] Nurse Practitioner Obstetrics/Gynecology 02/09/19 Poultry Debeaker Relationship Specialty Start Date End Date Anand Cooley DO PCP - General Family Medicine 04/21/17 Poultry Debeaker Relationship Specialty Start Date End Date Anand Cooley DO PCP - General Family Medicine 04/21/17 Poultry Debeaker Relationship Specialty Start Date End Date Татьяна Brooke CNP [address] [place] [address] PCP - General Certified Nurse Practitioner 12/07/23 Poultry Debeaker Relationship Specialty Start Date End Date Татьяна Brooke CNP [address] [place] [address] PCP - General Certified Nurse Practitioner 12/07/23 Poultry Debeaker Relationship Specialty Start Date End Date Татьяна Brooke, MED [address] [place] [id number] PCP - GRICEL Attributed Provider - [employer] 10/14/23 09/12/50 Keyla Meneses, MED [address] [place] [id number] PCP - General Family Medicine 03/06/24 Eunice Del Angel CNP [address] [place], [place] [phone] Nurse Practitioner Obstetrics/Gynecology 02/09/19 Poultry Debeaker Relationship Specialty Start Date End Date Татьяна Brooke, HYDRAULIC DREDGE OPERATOR [address] [place] [phone] PCP - GRICEL Attributed Provider - [employer] 10/14/23 09/12/50 Keyla Meneses, MED [address] [place] [address] PCP - General Family Medicine 03/06/24 Eunice Del Angel, MED [address] [place] [address] Nurse Practitioner Obstetrics/Gynecology 02/09/19 Poultry Debeaker Relationship Specialty Start Date End Date Татьяна Brooke, MED [address] [place] [address] PCP - GRICEL Attributed Provider - [employer] 10/14/23 09/12/50 Keyla Meneses, HYDRAULIC DREDGE OPERATOR [address] [place] [address] PCP - General Family Medicine 03/06/24 Eunice Del Angel, MED [facility] [address] [place] [address] Nurse Practitioner Obstetrics/Gynecology 02/09/19 Poultry Debeaker Relationship Specialty Start Date End Date Татьяна Brooke, HYDRAULIC DREDGE OPERATOR [address] [place] [phone] PCP - GRICEL Attributed Provider - [employer] 10/14/23 09/12/50 Keyla Meneses, HYDRAULIC DREDGE OPERATOR [facility] [place] [address] PCP - General Family Medicine 03/06/24 Eunice Del Angel, HYDRAULIC DREDGE OPERATOR [facility] [address] [place] [address] Nurse Practitioner Obstetrics/Gynecology 02/09/19 Poultry Debeaker Relationship Specialty Start Date End Date Татьяна Brooke, HYDRAULIC DREDGE OPERATOR [address] [place] [phone] PCP - GRICEL Attributed Provider - [employer] 10/14/23 09/12/50 Keyla Meneses, HYDRAULIC DREDGE OPERATOR [address] [place] [address] PCP - General Family Medicine 03/06/24 Eunice Del Angel, MED [address] [place] [address] Nurse Practitioner Obstetrics/Gynecology 02/09/19 Poultry Debeaker Relationship Specialty Start Date End Date Татьяна Brooke, HYDRAULIC DREDGE OPERATOR [address] [place] [address] PCP - GRICEL Attributed Provider - [employer] 10/14/23 09/12/50 Keyla Meneses, MED [facility] [place] [address] PCP - General Family Medicine 03/06/24 Eunice Del Angel, MED [address] [place] [address] Nurse Practitioner Obstetrics/Gynecology 02/09/19 Poultry Debeaker Relationship Specialty Start Date End Date Татьяна Brooke, MED [address] [place] [address] PCP - GRICEL Attributed Provider - [employer] 10/14/23 09/12/50 Keyla Meneses, MED [address] [place] [address] PCP - General Family Medicine 03/06/24 Eunice Del Angel, MED [address] [place] [address] Nurse Practitioner Obstetrics/Gynecology 02/09/19 Poultry Debeaker Relationship Specialty Start Date End Date Anand Cooley DO [address] [place] [address] PCP - General 01/31/14 Poultry Debeaker Relationship Specialty Start Date End Date Keyla Meneses CNP [address] [place] [address] PCP - General Family Medicine 03/06/24 Eunice Del Angel, MED [address] [facility] [place] [address] Nurse Practitioner Obstetrics/Gynecology 02/09/19 Team Status: Active Member Role Status Dates Keyla Meneses CLIENT MANAGER-C Primary Care Provider Active Team Status: Inactive Member Role Status Dates Keyla Meneses CLIENT MANAGER-C Primary Care Provider Active Start: January 02, 2025 End: January 02, 2025 Keyla eMneses CLIENT MANAGER-C Referring Provider Active Start: January 02, 2025 End: January 02, 2025 Emma Valenzuela NP, CLIENT MANAGER-C Attending Provider Active Start: January 02, 2025 End: January 02, 2025 Team Status: Inactive Member Role Status Dates Keyla Meneses CLIENT MANAGER-C Primary Care Provider Active Start: January 18, 2025 End: January 18, 2025 Keyla Meneses CLIENT MANAGER-C Referring Provider Active Start: January 18, [...] Inactive Member Role Status Dates Keyla Meneses CLIENT MANAGER-C Primary Care Provider Active Start: March 01, 2025 End: March 01, 2025 Keyla Meneses CLIENT MANAGER-C Referring Provider Active Start: March 01, [...] March 01, 2025 End: March 01, 2025 Poultry Debeaker Relationship Specialty Start Date End Date Keyla Meneses CNP [address] [place] [id number] PCP - General Family Medicine 03/06/24 Eunice Del Angel, HYDRAULIC DREDGE OPERATOR [address] [place] [address] [address] Nurse Practitioner Obstetrics/Gynecology 02/09/19 Nel Ruff Certified Nurse Pneumatic Tool Operator 01/22/25 Team Status: Active Member Role/Relationship Status Dates Keyla Meneses NP-C Primary Care Provider Active Team Status: Inactive Member Role/Relationship Status Dates Keyla Meneses NP-C Primary Care Provider Active Start: January 02, 2025 End: January 02, 2025 Keyla Meneses NP-C Referring Provider Active Start: January 02, 2025 End: January 02, 2025 Emma Valenzuela NP CLIENT MANAGER-C Attending Provider Active Start: January 02, [...] Role/Relationship Status Dates Keyla L Gideon , CLIENT MANAGER-C Primary Care Provider Active Start: January 18, 2025 End: January 18, 2025 Nel Ruff CNM Attending Provider Active S tart: January 18, 2025 End: January 18, 2025 Nel Ruff CNM Referring Provider Active S tart: January 18, 2025 End: January 18, 2025 Team Status: Inactive Member Role/Relationship Status Dates Keyla Meneses CLIENT MANAGER-C Primary Care Provider Active Start: March 01, 2025 End: March 01, 2025 Keyla Meneses CLIENT MANAGER-C Referring Provider Active Start: March 01, 2025 End: March 01, 2025 Dr. Emmanuelle Contreras DO Attending Provider Activ e Start: March 01, 2025 End: March 01, 2025 Team Status: Inactive Member Role/Relationship Status Dates Keyla Meneses CLIENT MANAGER-C Primary Care Provider Active Start: March 01, 2025 End: March 01, 2025 Nel Ruff CNM Attending Provider Active S tart: March 01, 2025 End: March 01, 2025 Nel Ruff CNM Referring Provider Active S tart: March 01, 2025 End: March 01, 2025 Team Status: Inactive Member Role/Relationship Status Dates Keyla Meneses CLIENT MANAGER-C Primary Care Provider Active Start: March 30, 2025 End: March 30, 2025 Keyla Meneses CLIENT MANAGER-C Referring Provider Active Start: March 30, 2025 End: March 30, 2025 Dr. Ayala Thompson MD Attending Provider Active Start: March 30, 2025 End: March 30, 2025 Team Status: Inactive Member Role/Relationship Status Dates Keyla Meneses CLIENT MANAGER-C Primary Care Provider Active Start: April 27, 2025 End: April 27, 2025 Keyla Meneses CLIENT MANAGER-C Referring Provider Active Start: April 27, 2025 End: April 27, 2025 Nel Ruff CNM Attending Provider Active S tart: April 27, 2025 End: April 27, 2025 Team Status: Inactive Member Role/Relationship Status Dates Keyla Meneses , CLIENT MANAGER-C Primary Care Provider Active Start: March 01, 2025 End: March 01, 2025 Keyla Meneses CLIENT MANAGER-C Referring Provider Active Start: March 01, 2025 End: March 01, 2025 Dr. Emmanuelle Contreras DO Attending Provider Activ e Start: March 01, 2025 End: March 01, 2025 Team Status: Inactive Member Role/Relationship Status Dates Keyla Meneses , CLIENT MANAGER-C Primary Care Provider Active Start: March 01, 2025 End: March 01, 2025 Nel Ruff CNM Attending Provider Active S tart: March 01, 2025 End: March 01, 2025 Nel Ruff CNM Referring Provider Active S tart: March 01, 2025 End: March 01, 2025 Team Status: Inactive Member Role/Relationship Status Dates Keyla Meneses CLIENT MANAGER-C Primary Care Provider Active Start: March 30, 2025 End: March 30, 2025 Keyla Meneses , CLIENT MANAGER-C Referring Provider Active Start: March 30, 2025 End: March 30, 2025 Dr. Ayala Thompson MD Attending Provider Active Start: March 30, 2025 End: March 30, 2025 Team Status: Inactive Member Role/Relationship Status Dates Keyla Meneses , CLIENT MANAGER-C Primary Care Provider Active Start: April 27, 2025 End: April 27, 2025 Keyla Meneses , CLIENT MANAGER-C Referring Provider Active Start: April 27, 2025 End: April 27, 2025 Nel Ruff CNM Attending Provider Active S tart: April 27, 2025 End: April 27, 2025 Team Status: Inactive Member Role/Relationship Status Dates Keyla Meneses CLIENT MANAGER-C Primary Care Provider Active Start: May 22, 2025 End: May 22, 2025 Keyla Meneses , CLIENT MANAGER-C Referring Provider Active Start: May 22, 2025 End: May 22, 2025 Emma Valenzuela NP, CLIENT MANAGER-C Attending Provider Active Start: May 22, 2025 End: May 22, 2025 Team Status: Active Member Role/Relationship Status Dates Keyla Meneses CLIENT MANAGER-C Primary care physician Active Team Status: Inactive Member Role/Relationship Status Dates Keyla Meneses CLIENT MANAGER-C Primary care physician Active Start: March 01, 2025 End: March 01, 2025 Keyla Meneses , CLIENT MANAGER-C Referring Provider Active Start: March 01, 2025 End: March 01, 2025 Dr. Emmanuelle Contreras DO Attending physician Acti ve Start: March 01, 2025 End: March 01, 2025 Team Status: Inactive Member Role/Relationship Status Dates Keyla Meneses , CLIENT MANAGER-C Primary care physician Active Start: March 01, 2025 End: March 01, 2025 Nel Ruff CNM Attending physician Active Start: March 01, 2025 End: March 01, 2025 Nel Ruff CNM Referring Provider Active S tart: March 01, 2025 End: March 01, 2025 Team Status: Inactive Member Role/Relationship Status Dates Keyla Meneses , CLIENT MANAGER-C Primary care physician Active Start: March 30, 2025 End: March 30, 2025 Keyla Meneses , CLIENT MANAGER-C Referring Provider Active Start: March 30, 2025 End: March 30, 2025 Dr. Ayala Thompson MD Attending physician Active Start: March 30, 2025 End: March 30, 2025 Team Status: Inactive Member Role/Relationship Status Dates Keyla Meneses , CLIENT MANAGER-C Primary care physician Active Start: April 27, 2025 End: April 27, 2025 Keyla Meneses , CLIENT MANAGER-C Referring Provider Active Start: April 27, 2025 End: April 27, 2025 Nel Ruff CNM Attending physician Active Start: April 27, 2025 End: April 27, 2025 Team Status: Inactive Member Role/Relationship Status Dates Keyla Meneses , CLIENT MANAGER-C Primary care physician Active Start: May 22, 2025 End: May 22, 2025 Keyla Meneses , CLIENT MANAGER-C Referring Provider Active Start: May 22, 2025 End: May 22, 2025 Emma Valenzuela NP, CLIENT MANAGER-C Attending physician Active Start: May 22, 2025 End: May 22, 2025 Team Status: Inactive Member Role/Relationship Status Dates Keyla Meneses , CLIENT MANAGER-C Primary care physician Active Start: June 13, 2025 End: June 13, 2025 Keyla Meneses , CLIENT MANAGER-C Referring Provider Active Start: June 13, 2025 End: June 13, 2025 Dr. 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 [facility] [place] [address] Nurse Practitioner Obstetrics/Gynecology 02/09/19 Nel Ruff Certified Nurse Pneumatic Tool Operator 01/22/25 Team Status: Inactive Member Role/Relationship [...] End: May 22, 2025 Emma Valenzuela NP CLIENT MANAGER-C Attending physician Active Start: May 22, [...] Macdonald, RN)[phone] (Rate/Dose Change - Provider: Janeth Mcadonald, RN)[phone] (Rate/Dose Change - Provider: Janeth Macdonald, RN)[phone] (Rate/Dose Change - Provider: Citlaly Savage, RN)1709 (Rate/Dose Change - Provider: Citlaly Savage, RN)1736 (Stopped - Provider: Citlaly Savage, RN) ropivacaine (NAROPIN) 0.2% epidural infusion (CANCELED) Epidural, CONTINUOUS, Starting on Wed08/11/22 at 1315, Until Wed08/11/22 at 1800, Intra-op/Intra-Proc 1256 ($$New Bag$$ - Provider: Daniel Tobar APRN-HOTEL SERVICES SUPERVISOR)1633 (Rate/Dose Change - Provider: Daniel Tobar APRN-DONAL)1754 [...] BE BASED ON THE PRIMARY CLINICAL RECORDS. [employer] provides no warranty or guarantee of the accuracy or completeness of information in this document.
--- OUTSIDE RECORDS SUMMARY | 2025-08-22 05:04 | XMS RPT_ITS | CCD ---
Author Organization [facility] Care Team Providers Care Dinkey Operator Slate Name Role Phone Anand Cooley Unavailable Aisha, Michael Unavailable Unavailable Aisha, Michael Unavailable Unavailable ANAND COOLEY Primary Care Unavailable Anand Cooley Primary Care Provider Eunice Moreno Unavailable Татьяна Brooke Primary Care Provider Anand Cooley DO Primary Care Provider Eunice Del Angel CNP Unavailable Татьяна Brooke CNP Primary Care Provider [phone] Татьяна Brooke CNP Primary Care Provider [phone] Anand Cooley DO Primary Care Provider Anand Cooley Unavailable Marie Mario Unavailable Unavailable [place], Ms. Marie Goldman Attending Unavailable Dr. Anand Cooley Primary Care Unavail able Dr. Anand Cooley Primary Care Unavail able Fabiano, Ms. Marie Goldman Attending Unavailable Eunice Del Angel CNPanne Unavailable Татьяна Brooke CNP Primary Care Provider [phone] Anand Cooley DO Primary Care Provider Татьяна [...] Referring Unavailable Edwardo JOVEL, Татьяна Gallagher. Unavailable [phone] Keyla Meneses CNP Primary Care Provider KEYLA MENESES Primary Care Unavailabl e KEYLA MENESES LONNAE Admitting Unavailabl e FELIZ MENESESL LONNAE Primary Care Unavailabl e Lenora DO, Anand Edmond Primary Care Provider LENORA, ANAND EDMOND Primary Care Unavailable ANTONIO LOPEZ Attending Unavailable Gideon HEALTH CARE ANALYST-CFelizl L Primary Care Provider Gideon HEALTH CARE ANALYST-CFelizl L Referring Provider Emma Wyatt Attending Provider Nel Ruff CNM Attending Provider [phone] Nel Ruff CNM Referring Provider Dr. Emmanuelle Contreras DO Attending Provider Dr. Ayala Thompson MD Attending Provider Gideon HEALTH CARE ANALYST-CKeyla Primary Care Provider Gideon NICOLE-CKeyla Referring Provider Nel Ruff CNM Attending Provider Nel Ruff CNM Referring Provider Emma Wyatt Attending Provider Gideon HEALTH CARE ANALYST-C, Keyla L Primary Care Physician Dr. Emmanuelle Contreras DO Attending Physician Nel Ruff CNM Attending Physician [phone] Jay GREER, Dr. Cai Attending Physician Bianca HEALTH CARE ANALYST-CEmma Attending Physician [phone] Bianca HEALTH CARE ANALYST-CEmma Referring Provider [phone] EMMANUELLE HERNÁNDEZ Referring Unavailab le [facility] [facility] [place] Unavailable MALENA LINCOLN Attending Unavailable ROSHNI DAVIDSON Attending Unavailable [facility], [facility] Primary Care Unavailable EMMANUELLE HERNÁNDEZ Referring Unavailab le Gideon HEALTH CARE ANALYST-C, Keyla L Primary Care Physician Gideon HEALTH CARE ANALYST-C, Keyla L Referring Provider [phone] Nel Ruff CNM Attending Physician [phone] [...] Ruff Referring Unavailable Nel Ruff Attending Unavailable Igdeon, Keyla L Primary Care Unavailable Nel Ruff Referring Unavailable Nel Ruff Attending Unavailable Emma aVlenzuela Attending Unavailable Gideon, Keyla L Primary Care Unavailable Emma Valenzuela Referring Unavailable Medications Current Medications Medication Drug Class(es) Dates Sig (Normalized) Sig (Original) [id number] 200 actuat albuterol 0.09 mg/actuat metered dose [...] 12:00am As directed Blood-Glucose,Receive r,Cont (Dexcom G7 Outpatient Admitting Clerk) misc (1 source) Start: 06-28-2025 Blood-Glucose,Recei mela,Cont (Dexcom G7 Outpatient Admitting Clerk) misc Active 0 .Route 1 June 28, 2025 12:00am As directed brompheniramine maleate 0.4 mg/ml / dextromethorphan hydrobromide 2 mg/ml / pseudoephedrine hydrochloride 6 mg/ml oral solution (2 sources) alpha-Adrenergic Agonist, Uncompetitive G-gjopub-A-asparta te Receptor Antagonist, Sigma-1 Agonist Start: 11-09-2024 [...] oral tablet (4 sources) alpha-Adrenergic Agonist, Uncompetitive G-psbqkt-A-aspartate Receptor Antagonist, Sigma-1 Agonist Start: 2023 take [...] unless otherwise directed by your doctor. Pnv No.142-Ht-Je1-Dha -Epa-Fish 400 mcg-35 mg- 25 mg-5 mg tablet,chewable (8 sources) Start: 01-11-2025 Start: 01-11-2025 Pnv No.153-Fa- Jr8-Kro-Fpa-Fish 400 mcg-35 mg- 25 mg-5 mg tablet,chewable [...] above: on metformin- sees e ndo in [place]- sees e ndo in [place] . stopped at first visit. Other endocrine [...] Test Name Value Interpretation Reference Range Facility Organic Chemist Office Visit Reporton 07-24-2025 Organic Chemist Office Visit Report [facility] [address], [address] [place] [address] OFFICE VISIT Date of Service: 07/24/25 MR#: [id number] Acct: [id number] Name: DRAKE PETTY Rep #: [id number] : 1995 Provider: BRET Gay ams Age/Sex: 30/F Location[place] [facility] Status: Signed Intake Vital Signs 06/13/25 15:26 06/25/25 15:16 07/20/25 13:16 07/24/25 14:13 07/24/25 14:15 Height 5 ft 4 in 5 ft 4 in 5 ft 4 in 5 ft 4 in 5 ft 4 in Weight: 184 lb 8 oz BMI 31.6 BP 123/79 H Intake Visit Reasons: 34wk ob/nst Pot Firer Required: No Is patient in pain?: No [...] #1 ea 06/28/25 07/24/25 Rx (Dexcom G7 Outpatient Admitting Clerk) metformin 500 mg tablet 500 mg PO [...] 1 current occupational status: employed 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 Normal [facility] Organic Chemist Office Visit Reporton 07-20-2025 Organic Chemist Office Visit Report [facility] [address], [address] [place] [address] OFFICE VISIT Date of Service: 07/20/25 MR#: [id number] Acct: [id number] Name: DRAKE PETTY Rep #: [id number] : 1995 Provider: Dr. 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 ?-?? (more content not included)... Normal [facility] Organic Chemist Office Visit Reporton 07-17-2025 Organic Chemist Office Visit Report [facility] [address] [address] OFFICE VISIT Date of Service: 07/17/25 MR#: [id number] Acct: [id number] Name: DRAKE PETTY Rep #: [id number] : 1995 Provider: Dr. 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 Normal [facility] OB Limited With Biometricson 07-13-2025 OB Limited With Biometrics [facility] Imaging Services [address] [place] [address] OB Limited With Biometrics MR#: [id number] Acct: [id number] Name: DRAKE PETTY Rep #: [id number] : 1995 F 30 From: Tano Wheeler DO PCP: OLY Maldonado Status: REG CLI Study: OB Limited With Biometrics Date of Exam: 07/13 Exam# [id number] Ordering Dr: Nel Ruff CNM PROCEDURE: OB [...] heart rate of 136 bpm. Reading Location: [id number] CC: BRET Ruff; OLY Meneses Sales Representative Health Insurance: Signed Normal [facility] Organic Chemist Office Visit Reporton 07-13-2025 Organic Chemist Office Visit Report [facility] [address], [address] [place] [address] OFFICE VISIT Date of Service: 07/13/25 MR#: [id number] Acct: [id number] Name: DRAKE PETTY Rep #: [id number] : 1995 Provider: BRET Gay ams Age/Sex: 30/F Location: [facility] Status: Signed Intake Vital Signs 06/25/25 15:16 07/10/25 10:14 07/13/25 14:28 Height 5 ft 4 in 5 ft 4 in 5 ft 4 in Weight: 183 lb 1 oz 182 lb 9 oz BMI 31.4 31.3 BP 116/75 110/72 Intake Visit Reasons: 32wk nst only Pot Firer Required: No Is patient in pain?: No [...] #1 ea 06/28/25 07/13/25 Rx (Dexcom G7 Outpatient Admitting Clerk) Last Menstrual Period: 11/09/24 Zika: Zika virus [...] 1 current occupational status: 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 Normal [facility] Organic Chemist Office Visit Reporton 07-10-2025 Organic Chemist Office Visit Report [facility] [address], [address] [place] [address] OFFICE VISIT Date of Service: 07/10/25 MR#: [id number] Acct: [id number] Name: DRAKE PETTY Rep #: [id number] : 1995 Provider: OLY hoffman Age/Sex: 30/F [place] [facility] Status: Signed Intake Vital Signs 06/13/25 15:26 06/25/25 15:16 07/10/25 10:14 Height 5 ft 4 in 5 ft 4 in 5 ft 4 in Weight: 185 lb 183 lb 6 oz 183 lb 1 oz BMI 31.7 31.4 31.4 BP 101/67 108/74 116/75 Intake Visit Reasons: 32wk ob/nst Pot Firer Required: No Is patient in pain?: No [...] #1 ea 06/28/25 07/10/25 Rx (Dexcom G7 Outpatient Admitting Clerk) Last Menstrual Period: 11/09/24 Zika: Zika virus [...] 1 current occupational status: 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 Normal [facility] Laboratory - Chemistry and C hemistry - challengeOrdered By: Nel Ruff on 06-25-2025 Glucose Ql (U) Negative [facility] Laboratory - UrinalysisOrder ed By: Nel Ruff on 06-25-2025 Protein Ql (U) Negative [facility] Organic Chemist Office Visit Reporton 06-25-2025 Organic Chemist Office Visit Report 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 (more content not included)... Normal [facility] Absolute lymphocyte countOrd ered By: Emma Valenzuela on 06-13-2025 Lymphocytes Auto (Unsp spec) [#/Vol] 2.00 10*3/uL 0.83-4.51 [facility] Absolute neutrophil countOrd ered By: Emma Valenzuela on 06-13-2025 Neutrophils (Bld) [#/Vol] 7.3 10*3/uL 2.0-7.7 [facility] Automated lymphocyte count a s percentage of total leukocytesOrdered By: Emma [place] on 06-13-2025 Lymphocytes/100 WBC Auto (Unsp spec) 20.0 % 19-41 [facility] Basophil percentageOrdered B y: Emma Bianca on 06-13-2025 Basophils/100 WBC (Bld) 0.3 % 0-1 [facility] CBC W/Diff, Automatedon -2024 Absolute Lymph 2.00 X10 3/uL Normal 0.83-4.51 [facility] Comment on above: Performed By: #### L 3890.6006, L100.0100, L501.0250, L509.8002 #### [facility] [address] [place], [address] Absolute Neut 7.3 X10 3/uL Normal 2.0-7.7 [facility] Comment on above: Performed By: #### L 3890.6006, L100.0100, L501.0250, L509.8002 #### [facility] [address] [place], [address] Basophils/100 WBC (Bld) 0.3 % Normal 0-1 [facility] Comment on above: Performed By: #### L 3890.6006, L100.0100, L501.0250, L509.8002 #### [facility] [address] [place], [address] Eosinophils/100 WBC (Bld) 1.3 % Normal 0-5 [facility] Comment on above: Performed By: #### L 3890.6006, L100.0100, L501.0250, L509.8002 #### [facility] [address] [place], [address] Erythrocyte distribution width (RBC) [Ratio] 13.4 % Normal 11.6-14.6 [facility] Comment on above: Performed By: #### L 3890.6006, L100.0100, L501.0250, L509.8002 #### [facility] [address], [address] Hematocrit (Bld) [Volume fraction] 36.0 % Low 37-47 [facility] Comment on above: Performed By: #### L 3890.6006, L100.0100, L501.0250, L509.8002 #### [facility] [address] [place], [address] Hemoglobin (Bld) [Mass/Vol] 12.0 g/dL Normal 12.0-15.0 [facility] Comment on above: Performed By: #### L 3890.6006, L100.0100, L501.0250, L509.8002 #### [facility] [address] [place], [address] IG% 0.500 Normal 0.0-0.9 [facility] Comment on above: Result Comment: IG% - Immature Granulocytes (promyelocytes, myelocytes and metamyelocytes) > 1% indicates that a LEFT SHIFT is Present. Performed By: #### L 3890.6006, L100.0100, L501.0250, L509.8002 #### [facility] [address] [place], [address] Lymphocytes/100 WBC (Bld) 20.0 % Normal 19-41 [facility] Comment on above: Performed By: #### L 3890.6006, L100.0100, L501.0250, L509.8002 #### [facility] [address] [place], [address] MCH (RBC) [Entitic mass] 29.0 pg Normal 27.0-32.0 [facility] Comment on above: Performed By: #### L 3890.6006, L100.0100, L501.0250, L509.8002 #### [facility] [address] [place], [address] MCHC (RBC) [Mass/Vol] 33.3 g/dL Normal 32-36 [facility] Comment on above: Performed By: #### L 3890.6006, L100.0100, L501.0250, L509.8002 #### [facility] [address] [place], [address] MCV (RBC) [Entitic vol] 87.0 fL Normal 81-99 [facility] Comment on above: Performed By: #### L 3890.6006, L100.0100, L501.0250, L509.8002 #### [facility] [address] [place], [address] Monocytes/100 WBC (Bld) 5.4 % Normal 0-10 [facility] Comment on above: Performed By: #### L 3890.6006, L100.0100, L501.0250, L509.8002 #### [facility] [address] [place], [address] Neutrophils/100 WBC (Bld) 72.5 % High 47-70 [facility] Comment on above: Performed By: #### L 3890.6006, L100.0100, L501.0250, L509.8002 #### [facility] [address] [place], [address] Nucleated RBC (Bld) [#/Vol] 0 10*3/uL Normal 0-5 [facility] Comment on above: Performed By: #### L 3890.6006, L100.0100, L501.0250, L509.8002 #### [facility] [address] [place], [address] Platelet mean volume (Bld) [Entitic vol] 10.3 fL Normal 6.2-12.0 [facility] Comment on above: Performed By: #### L 3890.6006, L100.0100, L501.0250, L509.8002 #### [facility] [address] [place], [address] Platelets (Bld) [#/Vol] 258 10*3/uL Normal 150-450 [facility] Comment on above: Performed By: #### L 3890.6006, L100.0100, L501.0250, L509.8002 #### [facility] [address] [place], [address] RBC (Bld) [#/Vol] 4.14 10*6/uL Low 4.2-5.4 [facility] Comment on above: Performed By: #### L 3890.6006, L100.0100, L501.0250, L509.8002 #### [facility] [address] [place], [address] RDW SD 41.7 fl Normal 35.1-43.9 [facility] Comment on above: Performed By: #### L 3890.6006, L100.0100, L501.0250, L509.8002 #### [facility] [address] [place], [address] WBC (Bld) [#/Vol] 10.0 10*3/uL Normal 4.4-11.0 [facility] Comment on above: Performed By: #### L 3890.6006, L100.0100, L501.0250, L509.8002 #### [facility] [address] [place], [address] Eosinophil percentageOrdered By: Emma Valenzuela on 06-13-2025 Eosinophils/100 WBC (Bld) 1.3 % 0-5 [facility] Erythrocyte distribution wid th ratioOrdered By: Emma Valenzuela on 06-13-2025 Erythrocyte distribution width (RBC) [Ratio] 13.4 % 11.6-14.6 [facility] Erythrocyte distribution wid th standard deviationOrdered By: Emma Valenzuela on 06-13-2025 Erythrocyte distribution width (RBC) [Ratio] 41.7 fl 35.1-43.9 [facility] Glucose Challenge Gest 1H 50 huong 06-13-2025 GLU GEST 50g 1H 166 mg/dL High 70-140 [facility] Comment on above: Performed By: #### L 3890.6006, L100.0100, L501.0250, L509.8002 #### [facility] [address] [facility] [place], [address] Glucose measurement at 2 ba rs post-dose gestational glucose tolerance testOrdered By: Emmaba Valenzuela on 06-13-2025 Glucose [Mass/Vol] 166 mg/dL High 70-140 [facility] HIVon 06-13-2025 HIV Non-Reactive Normal Nonreactive [facility] Comment on above: Result Comment: Non- Reactive Reactive Repeatedly reactive samples must be confirmed according to CDC recommended confirmatory algorithms. The subresults for either HIVAG or AHIV can be used as an aid in the selection of the confirmation algorithm for reactive samples. Send out specimens with Reactive results to [facility] for confirmation. Order the HIV antibody detection and differentiation: #[id number] Performed By: #### L 3890.6006, L100.0100, L501.0250, L509.8002 #### [facility] [address] [facility] [place], [address] Hematocrit Auto (Bld) [Volum e fraction]Ordered By: Emma Valenzuela on 06-13-2025 Hematocrit (Bld) [Volume fraction] 36.0 % Low 37-47 [facility] Hemoglobin measurementOrdere d By: Emma Valenzuela on 06-13-2025 Hemoglobin (Bld) [Mass/Vol] 12.0 g/dL 12.0-15.0 [facility] Immature granulocytes/100 WB C Auto (Bld)Ordered By: Emma Valenzuela on 06-13-2025 Immature granulocytes/100 WBC (Bld) 0.500 % 0.0-0.9 [facility] Comment on above: IG% - Immature Granu locytes (promyelocytes, myelocytes and metamyelocytes) > 1% indicates that a LEFT SHIFT is Present. Laboratory - Chemistry and C hemistry - challengeOrdered By: Emmanuelle Espinoza on 06-13-2025 Glucose Ql (U) Negative [facility] Laboratory - UrinalysisOrder ed By: Emmanuelle Espinoza on 06-13-2025 Protein Ql (U) Negative [facility] MCV (mean corpuscular volume ) determinationOrdered By: Emma Valenzuela on 06-13-2025 MCV (RBC) [Entitic vol] 87.0 fL 81-99 [facility] Mean corpuscular hemoglobin (MCH) determinationOrdered By: Emma Valenzuela on 06-13-2025 MCH (RBC) [Entitic mass] 29.0 pg 27.0-32.0 [facility] Mean corpuscular hemoglobin concentration (MCHC) determinationOrdered By: Emma Valenzuela on 06-13-2025 MCHC (RBC) [Mass/Vol] 33.3 g/dL 32-36 [facility] Mean platelet volume determi nationOrdered By: Emma Valenzuela on 06-13-2025 Platelet mean volume (Bld) [Entitic vol] 10.3 fL 6.2-12.0 [facility] Monocyte percentageOrdered B y: Emma Valenzuela on 06-13-2025 Monocytes/100 WBC (Bld) 5.4 % 0-10 [facility] Neutrophil percentageOrdered By: Emma Valenzuela on 06-13-2025 Neutrophils/100 WBC (Bld) 72.5 % High 47-70 [facility] No Panel InformationOrdered By: Emma Valenzuela on 06-13-2025 HIV (1&2) Antibody Non-Reactive Nonreactive [facility] Comment on above: Non-ReactiveReactive Repeatedly reactive samples must be confirmed according to CDC recommended confirmatory algorithms. The subresults for either HIVAG or AHIV can be used as an aid in the selection of the confirmation algorithm for reactive samples.Send out specimens with Reactive results to [facility] for confirmation.Order the HIV antibody detection and differentiation: #[id number] Nucleated red blood cell per centageOrdered By: Emma Valenzuela on 06-13-2025 Nucleated RBC/100 WBC (Bld) [Ratio] 0 % 0-5 [facility] Organic Chemist Office Visit Reporton 06-13-2025 Organic Chemist Office Visit Report [facility] [address] [address], [address] [place] [address] OFFICE VISIT Date of Service: 06/13/25 MR#: [id number] Acct: [id number] Name: DRAKE PETTY Rep #: [id number] : 1995 Provider: Dr. 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 (more content not included)... Normal [facility] Platelet countOrdered By: Travis Valenzuela on 06-13-2025 Platelets (Bld) [#/Vol] 258 10*3/uL 150-450 [facility] RBC Auto (Bld) [#/Vol]Ordere d By: Emma Valenzuela on 06-13-2025 RBC (Bld) [#/Vol] 4.14 10*6/uL Low 4.2-5.4 [facility] Syphilis Antibodieson 2024 Syphilis Abs Non-Reactive Normal Nonreactive [facility] Comment on above: Performed By: #### L 3890.6006, L100.0100, L501.0250, L509.8002 #### [facility] [address] [place], [address] White blood cell (WBC) count Ordered By: Emma Valenzuela on 06-13-2025 WBC (Bld) [#/Vol] 10.0 10*3/uL 4.4-11.0 [facility] Laboratory - Chemistry and C hemistry - challengeOrdered By: Emma Valenzuela on 05-22-2025 Glucose Ql (U) Negative [facility] Laboratory - UrinalysisOrder ed By: Emma Valenzuela on 05-22-2025 Protein Ql (U) Negative [facility] [facility] Organic Chemist Office Visit Reporton 05-22-2025 Organic Chemist Office Visit Report [facility] 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 (more content not included)... Normal [facility] - Chemistry and C hemistry - challengeOrdered By: Nel Ruff on 04-27-2025 Glucose Ql (U) Negative [facility] - UrinalysisOrder ed By: Nel Ruff on 04-27-2025 Protein Ql (U) Negative [facility] Organic Chemist Office Visit Reporton 04-27-2025 Organic Chemist Office Visit Report 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 ??-???-???- (more content not included)... Normal [facility] - Chemistry and C hemistry - challengeOrdered By: Ayala Thompson on 03-30-2025 Glucose Ql (U) Negative [facility] - UrinalysisOrder ed By: Ayala Thompson on 03-30-2025 Protein Ql (U) Negative [facility] Organic Chemist Office Visit Reporton 03-30-2025 Organic Chemist Office Visit Report [facility] [address], [address] [place] [address] OFFICE VISIT Date of Service: 03/30/25 MR#: [id number] Acct: [id number] Name: DRAKE PETTY Rep #: [id number] : 1995 Provider: Dr. 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 Normal [facility] Absolute lymphocyte countOrd ered By: Nel Ruff on 03-01-2025 Lymphocytes Auto (Unsp spec) [#/Vol] 1.82 10*3/uL 0.83-4.51 [facility] Absolute neutrophil countOrd ered By: Nel Ruff on 03-01-2025 Neutrophils (Bld) [#/Vol] 5.2 10*3/uL 2.0-7.7 [facility] Automated lymphocyte count a s percentage of total leukocytesOrdered By: Nel Ruff on 03-01-2025 Lymphocytes/100 WBC Auto (Unsp spec) 23.2 % - [facility] Basophil percentageOrdered B y: Nel Ruff on 03-01-2025 Basophils/100 WBC (Bld) 0.4 % 0-1 [facility] CBC W/Diff, Automatedon 02-11 Absolute Lymph 1.82 X10 3/uL Normal 0.83-4.51 [facility] Comment on above: Performed By: #### L 3890.6006, L100.0100, L501.0250, L509.8002 #### [facility] [address] [place], [address] Absolute Neut 5.2 X10 3/uL Normal 2.0-7.7 [facility] Comment on above: Performed By: #### L 3890.6006, L100.0100, L501.0250, L509.8002 #### [facility] [address] [place], [address] Basophils/100 WBC (Bld) 0.4 % Normal 0-1 [facility] Comment on above: Performed By: #### L 3890.6006, L100.0100, L501.0250, L509.8002 #### [facility] [address] [place], [address] Eosinophils/100 WBC (Bld) 1.3 % Normal 0-5 [facility] Comment on above: Performed By: #### L 3890.6006, L100.0100, L501.0250, L509.8002 #### [facility] [address] [place], [address] Erythrocyte distribution width (RBC) [Ratio] 12.6 % Normal 11.6-14.6 [facility] Comment on above: Performed By: #### L 3890.6006, L100.0100, L501.0250, L509.8002 #### [facility] [address] [place], [address] Hematocrit (Bld) [Volume fraction] 37.4 % Normal 37-47 [facility] Comment on above: Performed By: #### L 3890.6006, L100.0100, L501.0250, L509.8002 #### [facility] [address] [place], [address] Hemoglobin (Bld) [Mass/Vol] 12.6 g/dL Normal 12.0-15.0 [facility] Comment on above: Performed By: #### L 3890.6006, L100.0100, L501.0250, L509.8002 #### [facility] [address] [place], [address] IG% 0.300 Normal 0.0-0.9 [facility] Comment on above: Result Comment: IG% - Immature Granulocytes (promyelocytes, myelocytes and metamyelocytes) > 1% indicates that a LEFT SHIFT is Present. Performed By: #### L 3890.6006, L100.0100, L501.0250, L509.8002 #### [facility] [address] [place], [address] Lymphocytes/100 WBC (Bld) 23.2 % Normal 19-41 [facility] Comment on above: Performed By: #### L 3890.6006, L100.0100, L501.0250, L509.8002 #### [facility] [address] [place], [address] MCH (RBC) [Entitic mass] 29.2 pg Normal 27.0-32.0 [facility] Comment on above: Performed By: #### L 3890.6006, L100.0100, L501.0250, L509.8002 #### [facility] [address] [place], [address] MCHC (RBC) [Mass/Vol] 33.7 g/dL Normal 32-36 [facility] Comment on above: Performed By: #### L 3890.6006, L100.0100, L501.0250, L509.8002 #### [facility] [address] [place], [address] MCV (RBC) [Entitic vol] 86.6 fL Normal 81-99 [facility] Comment on above: Performed By: #### L 3890.6006, L100.0100, L501.0250, L509.8002 #### [facility] [address] [place], [address] Monocytes/100 WBC (Bld) 8.4 % Normal 0-10 [facility] Comment on above: Performed By: #### L 3890.6006, L100.0100, L501.0250, L509.8002 #### [facility] [address] [place], [address] Neutrophils/100 WBC (Bld) 66.4 % Normal 47-70 [facility] Comment on above: Performed By: #### L 3890.6006, L100.0100, L501.0250, L509.8002 #### [facility] [address] [place], [address] Nucleated RBC (Bld) [#/Vol] 0 10*3/uL Normal 0-5 [facility] Comment on above: Performed By: #### L 3890.6006, L100.0100, L501.0250, L509.8002 #### [facility] [address] [place], [address] Platelet mean volume (Bld) [Entitic vol] 10.0 fL Normal 6.2-12.0 [facility] Comment on above: Performed By: #### L 3890.6006, L100.0100, L501.0250, L509.8002 #### [facility] [address] [place], [address] Platelets (Bld) [#/Vol] 258 10*3/uL Normal 150-450 [facility] Comment on above: Performed By: #### L 3890.6006, L100.0100, L501.0250, L509.8002 #### [facility] [address] [place], [address] RBC (Bld) [#/Vol] 4.32 10*6/uL Normal 4.2-5.4 [facility] Comment on above: Performed By: #### L 3890.6006, L100.0100, L501.0250, L509.8002 #### [facility] [address] [facility] [place], [address] RDW SD 39.9 fl Normal 35.1-43.9 [facility] Comment on above: Performed By: #### L 3890.6006, L100.0100, L501.0250, L509.8002 #### [facility] [address] [place], [address] WBC (Bld) [#/Vol] 7.9 10*3/uL Normal 4.4-11.0 [facility] Comment on above: Performed By: #### L 3890.6006, L100.0100, L501.0250, L509.8002 #### [facility] [address] [facility] [place], [address] Eosinophil percentageOrdered By: Nel Ruff on 03-01-2025 Eosinophils/100 WBC (Bld) 1.3 % 0-5 [facility] Erythrocyte distribution wid th ratioOrdered By: Nel Ruff on 03-01-2025 Erythrocyte distribution width (RBC) [Ratio] 12.6 % 11.6-14.6 [facility] Erythrocyte distribution wid th standard deviationOrdered By: Nel Ruff on 03-01-2025 Erythrocyte distribution width (RBC) [Ratio] 39.9 fl 35.1-43.9 [facility] HIVon 03-01-2025 HIV Non-Reactive Normal Nonreactive [facility] Comment on above: Result Comment: Non- Reactive Reactive Repeatedly reactive samples must be confirmed according to CDC recommended confirmatory algorithms. The subresults for either HIVAG or AHIV can be used as an aid in the selection of the confirmation algorithm for reactive samples. Send out specimens with Reactive results to [facility] for confirmation. Order the HIV antibody detection and differentiation: lc#[id number] Performed By: #### L 3890.6006, L100.0100, L501.0250, L509.8002 #### [facility] [address] [place], [address] Hematocrit Auto (Bld) [Volum e fraction]Ordered By: Nel Ruff on 03-01-2025 Hematocrit (Bld) [Volume fraction] 37.4 % 37-47 [facility] Hemoglobin A1con 03-01-2025 HbA1c (Bld) [Mass fraction] 5.2 % Normal <=5.6 [facility] Comment on above: Result Comment: Norm al < 5.7 % Prediabetic 5.7 - 6.4 % Diabetic >or= 6.5 % Please note range changes. Performed By: #### L 3890.6006, L100.0100, L501.0250, L509.8002 #### [facility] [address] [facility] [place], [address] Hemoglobin A1c percentageOrd ered By: Nel Ruff on 03-01-2025 HbA1c (Bld) [Mass fraction] 5.2 % <5.7 [facility] Comment on above: Normal < 5.7 % Predi abetic 5.7 - 6.4 % Diabetic >or= 6.5 % Please note range changes. Hemoglobin measurementOrdere d By: Nel Ruff on 03-01-2025 Hemoglobin (Bld) [Mass/Vol] 12.6 g/dL 12.0-15.0 [facility] Hepatitis C Antibodyon 03-01 Hepatitis C Ab Non-Reactive Normal Nonreactive [facility] Comment on above: Result Comment: Reac tive: Presumptive evidence of antibodies to HCV. Follow CDC recommendations for supplemental testing. Non-Reactive: Antibodies to HCV were not detected; does not exclude the possibility of exposure to HCV Reactive Results are presumptive evidence of antibodies to HCV. Follow CDC recommendations for supplemental testing. Order confirmation testing: HCV Quant by PCR testing - HCVPCR #[id number] Non Reactive: < 0.8 Equivocal: >/= 0.8 to < 1.0 Reactive: >/= 1.0 The CDC requires that a reactive/equivocal HCV antibody result be sent out for confirmation. HCV Quant by PCR testing. Performed By: #### L 3890.6006, L100.0100, L501.0250, L509.8002 #### [facility] [address] [facility] [place], [place], [address] Immature granulocytes/100 WB C Auto (Bld)Ordered By: Nel Ruff on 03-01-2025 Immature granulocytes/100 WBC (Bld) 0.300 % 0.0-0.9 [facility] Comment on above: IG% - Immature Granu locytes (promyelocytes, myelocytes and metamyelocytes) > 1% indicates that a LEFT SHIFT is Present. L3890.6102on 03-01-2025 HEP B Surf Ag Non-Reactive Normal Nonreactive [facility] Comment on above: Result Comment: Reac tive: Presumptive evidence of HBV. Repeatedly reactive samples must be confirmed using a neutralization test ([employer] HBsAg Confirmatory Test) Non-Reactive: HBsAg not detected; does not exclude the possibility of exposure to HBV Performed By: #### L 3890.6006, L100.0100, L501.0250, L509.8002 #### [facility] [address] [facility] [place], [address] L509.4006on 03-01-2025 Rubella IgG REAC Normal Nonreactive [facility] Comment on above: Result Comment: Anti body Result: Interpretation Non-Reactive: Non-Immune Reactive: Immune The following results were obtained with the [employer] Rubella IgG assay. Results from assays of other manufacturers cannot be used interchangeably. Performed By: #### L 3890.6006, L100.0100, L501.0250, L509.8002 #### [facility] [address] [facility] [place], [address] Laboratory - Chemistry and C hemistry - challengeOrdered By: Emmanuelle Espinoza on 03-01-2025 Glucose Ql (U) Negative [facility] - Microbiology an d Antimicrobial susceptibilityOrdered By: Nel Ruff on 03-01-2025 HBV surface Ag Ql (S) Non-Reactive Nonreactive [facility] Comment on above: Reactive: Presumptiv e evidence of HBV. Repeatedly reactive samples must be confirmed using a neutralization test ([employer] HBsAg Confirmatory Test)Non-Reactive: HBsAg not detected; does not exclude the possibility of exposure to HBV Laboratory - UrinalysisOrder ed By: Emmanuelle Espinoza on 03-01-2025 Protein Ql (U) Negative [facility] MCV (mean corpuscular volume ) determinationOrdered By: Nel Ruff on 03-01-2025 MCV (RBC) [Entitic vol] 86.6 fL 81-99 [facility] Mean corpuscular hemoglobin (MCH) determinationOrdered By: Nel Ruff on 03-01-2025 MCH (RBC) [Entitic mass] 29.2 pg 27.0-32.0 [facility] Mean corpuscular hemoglobin concentration (MCHC) determinationOrdered By: Nel Ruff on 03-01-2025 MCHC (RBC) [Mass/Vol] 33.7 g/dL 32-36 [facility] Mean platelet volume determi nationOrdered By: Nel Ruff on 03-01-2025 Platelet mean volume (Bld) [Entitic vol] 10.0 fL 6.2-12.0 [facility] Monocyte percentageOrdered B y: Nel Ruff on 03-01-2025 Monocytes/100 WBC (Bld) 8.4 % 0-10 [facility] NATERAon 03-01-2025 NATURA SEE SCANNED REPORT Normal [facility] Comment on above: Order Comment: Comme nts: elects NIPT with gender Carrier testing Performed By: #### L 3890.6006, L100.0100, L501.0250, L509.8002 #### [facility] [address] [place] [address]. [place], [address] Neutrophil percentageOrdered By: Nel Ruff on 03-01-2025 Neutrophils/100 WBC (Bld) 66.4 % 47-70 [facility] No Panel InformationOrdered By: Nel Ruff on 03-01-2025 HIV (1&2) Antibody Non-Reactive Nonreactive [facility] Comment on above: Non-ReactiveReactive Repeatedly reactive samples must be confirmed according to CDC recommended confirmatory algorithms. The subresults for either HIVAG or AHIV can be used as an aid in the selection of the confirmation algorithm for reactive samples.Send out specimens with Reactive results to [facility] for confirmation.Order the HIV antibody detection and differentiation: #[id number] Nucleated red blood cell per centageOrdered By: Nel Ruff on 03-01-2025 Nucleated RBC/100 WBC (Bld) [Ratio] 0 % 0-5 [facility] Organic Chemist Office Visit Reporton 03-01-2025 Organic Chemist Office Visit Report [facility] [address], [address] [place] [address] OFFICE VISIT Date of Service: 03/01/25 MR#: [id number] Acct: [id number] Name: DRAKE PETTY Rep #: [id number] : 1995 Provider: Dr. 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 Normal [facility] Platelet countOrdered By: Khalif Ruff on 03-01-2025 Platelets (Bld) [#/Vol] 258 10*3/uL 150-450 [facility] RBC Auto (Bld) [#/Vol]Ordere d By: Nel Ruff on 03-01-2025 RBC (Bld) [#/Vol] 4.32 10*6/uL 4.2-5.4 [facility] Syphilis Antibodieson 2024 Syphilis Abs Non-Reactive Normal Nonreactive [facility] Comment on above: Performed By: #### L 3890.6006, L100.0100, L501.0250, L509.8002 #### [facility] [address] [place], [address] Type AND Screenon 03-01-2025 Ab SCREEN GEL Negative Normal [facility] Comment on above: Order Comment: PN Performed By: #### L 3890.6006, L100.0100, L501.0250, L509.8002 #### [facility] [address] [place], [address] White blood cell (WBC) count Ordered By: Nel Ruff on 03-01-2025 WBC (Bld) [#/Vol] 7.9 10*3/uL 4.4-11.0 [facility] Chlamydia/GC NELLY aptimaon CHLAMY,NUC ACID Negative Normal Negative [facility] Comment on above: Performed By: #### L 3890.6006, L100.0100, L501.0250, L509.8002 #### [facility] [address] [place], [address] GC BY NUC ACID Negative Normal Negative [facility] Comment on above: Result Comment: Perf ormed at: =G - [facility] [place] [id number] Senior Staff Psychologist: Helena Lieberman MD, Phone: [phone] Performed By: #### L 3890.6006, L100.0100, L501.0250, L509.8002 #### [facility] [address] [place], [address] Urine Cultureon 01-19-2025 URC Below infection level. Mixed Gram Positive Organisms [place] Count 1000-10,000 MIXC Mixed contaminants. Submit a new specimen if indicated. Normal [facility] Comment on above: Performed By: #### L 3890.6006, L100.0100, L501.0250, L509.8002 #### [facility] [address] [place], [address] Chlamydia trachomatis rRNA d etection by probe and target amplification methodOrdered By: Nel Ruff on 01-18-2025 C. trachomatis rRNA NELLY+probe Ql (Unsp spec) Negative Negative [facility] Neisseria gonorrhoeae nuclei c acid detection by amplified probe techniqueOrdered By: Nel Ruff on 01-18-2025 N. gonorrhoeae DNA NELLY+probe Ql (Unsp spec) Negative Negative [facility] Comment on above: Performed at: =[address] [id number] Director: Helena Lieberman MD, Phone: [phone] Organic Chemist Office Visit Reporton 01-18-2025 Organic Chemist Office Visit Report [facility] [address], [address] [place] [address] OFFICE VISIT Date of Service: 01/18/25 MR#: [id number] Acct: [id number] Name: DRAKE PETTY Rep #: [id number] : 1995 Provider: BRET Gay ams Age/Sex: 29/F [place] [facility] [place]: Signed Intake Vital Signs 01/02/25 08:40 01/18/25 08:47 Height 5 ft 4 in 5 ft 4 in Weight: 162 lb 2 oz BMI 27.8 BP 122/79 H Intake Visit Reasons: NOB LMP 11/09 Chief Complaint: New OB Pot Firer Required: No Is patient in pain?: No [...] 1 current occupational status: 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 Normal [facility] Urine cultureOrdered By: Rajesh Ruff on 01-18-2025 Bacteria identified Cx Nom (U) Positive Abnormal [facility] Laboratory - Chemistry and C hemistry - challengeOrdered By: Emma Valenzuela on 01-02-2025 HCG ( test) Ql (U) Positive [facility] Organic Chemist Office Visit Reporton 01-02-2025 Organic Chemist Office Visit Report [facility] [address], [address] [place] [address] OFFICE VISIT Date of Service: 01/02/25 MR#: [id number] Acct: [id number] Name: DRAKE PETTY Rep #: [id number] : 1995 Provider: OLY hoffman Age/Sex: 29/F [place] [facility] [place] Status: Signed Intake Vital Signs 01/02/25 08:40 Height 5 ft 4 in Weight: 162 lb BMI 27.8 Intake Visit Reasons: Confirmation/Establ [facility] Care Pot Firer Required: No Is patient in pain?: No [...] 01/02/25 @ 11:10 by Emma Valenzuela NP, HEALTH CARE ANALYST-C) Depression with anxiety PCOS (polycystic ovarian [...] scheduled. 01/02/25 1110 Date Emma Valenzuela NP HEALTH CARE ANALYST-C Cosigner Signature: Date (if applicable) CC: Normal [facility] Beta HCG ( test) Ql on 12-26-2024 Interpretation and review of laboratory results Abnormal [facility] FASTING:UNKNOWN FASTING: UNKNOWN [facility] hCG, Serum, Qualitativeon Beta HCG ( test) Ql Positive Abnormal See Note: [facility] Comment on above: Reference Range: Reference Range Non-: Negative : Positive CBC WITH AUTO DIFFERENTIALon 06-15-2024 AUTO NRBC 0.0 % Normal [facility] Comment on above: Performed By: #### L [id number] #### LAB [address] [place] [address] Guerrero Barnett M.D. [id number] AUTO NRBC ABS COUNT 0.00 K/mcL Normal 0.00-0.00 [facility] Comment on above: Performed By: #### L [id number] #### LAB [address] [place] [address] Guerrero Barnett M.D. [id number] BASOPHILS ABSOLUTE COUNT 0.05 K/mcL Normal 0.00-0.30 [facility] Comment on above: Performed By: #### L [id number] #### LAB [address] [place] [address] Guerrero Barnett M.D. [id number] Basophils/100 WBC (Bld) 0.8 % Normal [facility] Comment on above: Performed By: #### L [id number] #### LAB [address] [place] [address] Guerrero Barnett M.D. [id number] Eosinophils (Bld) [#/Vol] 0.18 10*3/uL Normal 0.00-0.50 [facility] Comment on above: Performed By: #### L [id number] #### LAB [address] [place] [address] Guerrero Barnett M.D. [id number] Eosinophils/100 WBC (Bld) 2.8 % [facility] Comment on above: Performed By: #### L [id number] #### LAB [address] [address] Guerrero Barnett M.D. [id number] Erythrocyte distribution width (RBC) [Ratio] 12.8 % Normal 11.6-14.8 [facility] Comment on above: Performed By: #### L [id number] #### LAB [address] [address] Guerrero Barnett M.D. [id number] Hematocrit (Bld) [Volume fraction] 40.7 % Normal 36.0-46.0 [facility] Comment on above: Performed By: #### L [id number] #### LAB [address] [address] Guerrero Barnett M.D. [id number] Hemoglobin (Bld) [Mass/Vol] 13.2 g/dL Normal 12.0-16.0 [facility] Comment on above: Performed By: #### L [id number] #### LAB [address] [address] Guerrero Barnett M.D. [id number] IG ABSOLUTE 0.02 K/mcL Normal 0.00-0.30 [facility] Comment on above: Performed By: #### L [id number] #### LAB [address] [address] Guerrero Barnett M.D. [id number] IG PERCENT 0.30 % Normal [facility] Comment on above: Result Comment: The IG parameter is the percentage of metamyelocytes, myelocytes and promyelocytes. An immature granulocyte count (IG) of 1% or more suggests the possibility of infection, an IG count of 3% is very likely related to an infection. Performed By: #### L [id number] #### LAB [address] [place] [address] Guerrero Barnett M.D. [id number] Lymphocytes (Bld) [#/Vol] 2.53 10*3/uL Normal 0.90-4.00 [facility] Comment on above: Performed By: #### L [id number] #### LAB [address] [place] [address] Guerrero Barnett M.D. [id number] Lymphocytes/100 WBC (Bld) 38.7 % Normal [facility] Comment on above: Performed By: #### L [id number] #### LAB [address] [address] Guerrero Barnett M.D. [id number] MCH (RBC) [Entitic mass] 29.0 pg Normal 26.0-34.0 [facility] Comment on above: Performed By: #### L [id number] #### MH LAB [address] [address] Guerrero Barnett M.D. [id number] MCV (RBC) [Entitic vol] 89.5 fL Normal 80.0-100.0 [facility] Comment on above: Performed By: #### L [id number] #### LAB [address] [address] Guerrero Barnett M.D. [id number] MEAN CORPUSCULAR HEMOGLOBIN CONC 32.4 g/dL Normal 31.0-37.0 [facility] Comment on above: Performed By: #### L [id number] #### LAB [address] [address] Guerrero Barnett M.D. [id number] Monocytes (Bld) [#/Vol] 0.64 10*3/uL Normal 0.30-0.90 [facility] Comment on above: Performed By: #### L [id number] #### LAB [address] [address] Guerrero Barnett M.D. [id number] Monocytes/100 WBC (Bld) 9.8 % Normal [facility] Comment on above: Performed By: #### L [id number] #### LAB [address] [address] Guerrero Barnett M.D. [id number] NEUTROPHILS ABSOLUTE COUNT 3.11 K/mcL Normal 1.70-7.00 [facility] Comment on above: Performed By: #### L [id number] #### LAB [address] [address] Guerrero Barnett M.D. [id number] Neutrophils/100 WBC (Bld) 47.6 % Normal [facility] Comment on above: Performed By: #### L [id number] #### MH LAB [address] [address] Guerrero Barnett M.D. [id number] Platelet mean volume (Bld) [Entitic vol] 9.9 fL Normal 9.4-12.4 [facility] Comment on above: Performed By: #### L [id number] #### MH LAB [address] [address] Guerrero Barnett M.D. [id number] Platelets (Bld) [#/Vol] 366 10*3/uL Normal 150-400 [facility] Comment on above: Performed By: #### L [id number] #### MH LAB [address] [address] Guerrero Barnett M.D. [id number] RBC (Bld) [#/Vol] 4.55 10*6/uL Normal 4.00-5.20 [facility] Comment on above: Performed By: #### L [id number] #### MH LAB [address] [address] Guerrero Barnett M.D. [id number] WBC (Bld) [#/Vol] 6.53 10*3/uL Normal 4.50-11.00 [facility] Comment on above: Performed By: #### L [id number] #### MH LAB [address] [address] Guerrero Barnett M.D. [id number] COMPREHENSIVE METABOLIC PANE Keo 06-15-2024 Albumin [Mass/Vol] 4.6 g/dL Normal 3.2-5.2 [facility] Comment on above: Order Comment: [facility] has implemented the eGFR calculation approach that does not have a coefficient for race that conforms to the NKF-ASN Task Force Recommendations. Performed By: #### 4 [id number] #### MH LAB [address] [address] Guerrero Barnett M.D. [id number] ALP [Catalytic activity/Vol] 87 U/L Normal 40-140 [facility] Comment on above: Order Comment: [facility] has implemented the eGFR calculation approach that does not have a coefficient for race that conforms to the NKF-ASN Task Force Recommendations. Performed By: #### 4 [id number] #### LAB [address] [address] Guerrero Barnett M.D. [id number] ALT [Catalytic activity/Vol] 34 U/L Normal 0-35 U/L [facility] Comment on above: Order Comment: [facility] has implemented the eGFR calculation approach that does not have a coefficient for race that conforms to the NKF-ASN Task Force Recommendations. Performed By: #### 4 [id number] #### LAB [address] [address] Guerrero Barnett M.D. [id number] Anion gap [Moles/Vol] 16 mmol/L Normal 10-20 [facility] Comment on above: Order Comment: [facility] has implemented the eGFR calculation approach that does not have a coefficient for race that conforms to the NKF-ASN Task Force Recommendations. Performed By: #### 4 [id number] #### LAB [address] [address] Guerrero Barnett M.D. [id number] AST [Catalytic activity/Vol] 26 U/L Normal 0-35 U/L [facility] Comment on above: Order Comment: [facility] has implemented the eGFR calculation approach that does not have a coefficient for race that conforms to the NKF-ASN Task Force Recommendations. Performed By: #### 4 [id number] #### LAB [address] [address] Guerrero Barnett M.D. [id number] Bilirubin [Mass/Vol] 0.3 mg/dL Normal 0.0-1.3 [facility] Comment on above: Order Comment: [facility] has implemented the eGFR calculation approach that does not have a coefficient for race that conforms to the NKF-ASN Task Force Recommendations. Performed By: #### 4 [id number] #### LAB [address] [address] Guerrero Barnett M.D. [id number] Calcium [Mass/Vol] 9.5 mg/dL Normal 8.4-10.2 [facility] Comment on above: Order Comment: [facility] has implemented the eGFR calculation approach that does not have a coefficient for race that conforms to the NKF-ASN Task Force Recommendations. Performed By: #### 4 [id number] #### LAB [address] [address] Guerrero Barnett M.D. [id number] Chloride [Moles/Vol] 103 mmol/L Normal 98-108 [facility] Comment on above: Order Comment: [facility] has implemented the eGFR calculation approach that does not have a coefficient for race that conforms to the NKF-ASN Task Force Recommendations. Performed By: #### 4 [id number] #### LAB [address] [address] Guerrero Barnett M.D. [id number] Creatinine [Mass/Vol] 0.64 mg/dL Normal 0.40-1.10 [facility] Comment on above: Order Comment: [facility] has implemented the eGFR calculation approach that does not have a coefficient for race that conforms to the NKF-ASN Task Force Recommendations. Performed By: #### 4 6126 #### LAB [address] [address] Guerrero Barnett M.D. [id number] EGFR 123 mL/min/1.73 m2 Normal >=60 [facility] Comment on above: Order Comment: [facility] has implemented the eGFR calculation approach that does not have a coefficient for race that conforms to the NKF-ASN Task Force Recommendations. Result Comment: Taty mated GFR was calculated using the 2020 CKD-EPI creatinine equation. Performed By: #### 4 [id number] #### LAB [address] [address] Guerrero Barnett M.D. [id number] Glucose [Mass/Vol] 80 mg/dL Normal 65-99 [facility] Comment on above: Order Comment: [facility] has implemented the eGFR calculation approach that does not have a coefficient for race that conforms to the NKF-ASN Task Force Recommendations. Performed By: #### 4 [id number] #### LAB [address] [address] Guerrero Barnett M.D. [id number] HCO3 (Bld) [Moles/Vol] 27 mmol/L Normal 21-32 [facility] Comment on above: Order Comment: [facility] has implemented the eGFR calculation approach that does not have a coefficient for race that conforms to the NKF-ASN Task Force Recommendations. Performed By: #### 4 6126 #### LAB [address] [address] Guerrero Barnett M.D. [id number] Potassium [Moles/Vol] 4.5 mmol/L Normal 3.5-5.1 [facility] Comment on above: Order Comment: [facility] has implemented the eGFR calculation approach that does not have a coefficient for race that conforms to the NKF-ASN Task Force Recommendations. Performed By: #### 4 6126 #### LAB [address] [address] Guerrero Barnett M.D. [id number] Protein [Mass/Vol] 7.5 g/dL Normal 6.0-8.0 [facility] Comment on above: Order Comment: [facility] has implemented the eGFR calculation approach that does not have a coefficient for race that conforms to the NKF-ASN Task Force Recommendations. Performed By: #### 4 [id number] #### LAB [address] [address] Guerrero Barnett M.D. [id number] Sodium [Moles/Vol] 141 mmol/L Normal 135-145 [facility] Comment on above: Order Comment: [facility] has implemented the eGFR calculation approach that does not have a coefficient for race that conforms to the NKF-ASN Task Force Recommendations. Performed By: #### 4 6126 #### LAB [address] [place], [place] [address] Guerrero Barnett M.D. [id number] Urea nitrogen [Mass/Vol] 9 mg/dL Normal 8-25 [facility] Comment on above: Order Comment: [facility] has implemented the eGFR calculation approach that does not have a coefficient for race that conforms to the NKF-ASN Task Force Recommendations. Performed By: #### 4 6126 #### MH LAB [address] [address] Guerrero Barnett M.D. [id number] Urea nitrogen/Creatinine [Mass ratio] 14.1 mg/mg Normal 10.0-20.0 [facility] Comment on above: Order Comment: [facility] has implemented the eGFR calculation approach that does not have a coefficient for race that conforms to the NKF-ASN Task Force Recommendations. Performed By: #### 4 [id number] #### LAB [address] [address] Guerrero Barnett M.D. [id number] HEMOGLOBIN A1Con 06-15-2024 Glucose [Mass/Vol] 111 mg/dL Normal 74-114 [facility] Comment on above: Performed By: #### 4 [id number] #### MH LAB [address] [id number] Guerrero Barnett M.D. [id number] HbA1c (Bld) [Mass fraction] 5.5 % Normal 4.2-5.6 [facility] Comment on above: Performed By: #### 4 [id number] #### MH LAB [address] [place], [place] [address] Guerrero Barnett M.D. [id number] LIPID PANELon 06-15-2024 Cholesterol [Mass/Vol] 200 mg/dL High 100-199 [facility] Comment on above: Performed By: #### 4 6087 #### MH LAB [address] [id number] Guerrero Barnett M.D. [id number] Cholesterol in HDL [Mass/Vol] 49 mg/dL Normal 40-59 [facility] Comment on above: Performed By: #### 4 6087 #### LAB [address] [place], [place] [address] Guerrero Barnett M.D. [id number] Cholesterol.total/Choles terol in HDL [Mass ratio] 4.1 {ratio} Normal [facility] Comment on above: Result Comment: Fema le Cholesterol/HDL Ratio: Average risk: 4.4 1/2 average risk: 3.3 2 x average risk: 7.1 Performed By: #### 4 6087 #### LAB [address] [place], [place] [address] Guerrero Barnett M.D. [id number] LDL CHOLESTEROL CALCULATED 121 mg/dL Normal 10-130 [facility] Comment on above: Result Comment: [facility] Cholesterol Education Program Guidelines: LDL Cholesterol Optimal: <100 mg/dL Near Optimal/above Optimal: 100-129 mg/dL Borderline High: 130-159 mg/dL High: 160-189 mg/dL Very High: greater than or equal to 190 mg/dL Performed By: #### 4 6087 #### LAB [address] [address] Guerrero Barnett M.D. [id number] NON HDL CHOL 151 mg/dL Normal [facility] Comment on above: Result Comment: [facility] Cholesterol Education Program Guidelines: NON HDL Cholesterol Desirable: <130 mg/dL Borderline High: 130-159 mg/dL High: 160-189 mg/dL Very High: > or = 190 mg/dL Performed By: #### 4 6087 #### LAB [address] [place], [place] [address] Guerrero Barnett M.D. [id number] Triglyceride [Mass/Vol] 150 mg/dL Normal 30-150 M [facility] Comment on above: Performed By: #### 4 6087 #### MH LAB [address] [place], [place] [address] Guerrero Barnett M.D. [id number] T4, FREEon 06-15-2024 Free T4 [Mass/Vol] 1.4 ng/dL Normal 0.7-1.7 [facility] Comment on above: Performed By: #### 4 6567 #### LAB [address] [id number] Guerrero Barnett M.D. [id number] TSHon 06-15-2024 TSH Qn 0.94 m[IU]/L Normal 0.27-4.20 [facility] Comment on above: Performed By: #### 4 6613 #### LAB [address] [address] Guerrero Barnett M.D. [id number] VITAMIN D, TOTAL, 25-OHon VITAMIN D 25-HYDROXY 42 ng/mL Normal 20-100 [facility] Comment on above: Order Comment: Vitam in D Expected Values Deficiency: 0-10 Insufficiency: 10-20 Sufficient: 20-100 Toxicity: >100 Performed By: #### 4 6678 #### LAB [address] [address] Guerrero Barnett M.D. [id number] B12/FOLATEon 04-25-2024 Cobalamin (Vitamin B12) [Mass/Vol] 583 pg/mL Normal 232-1245 [facility] Comment on above: Performed By: #### 4 6967 #### LAB [address] [address] Guerrero Barnett M.D. [id number] FOLATE > High 3.1-17.5 [facility] Comment on above: Result Comment: Defi cient <2.2 Borderline 2.2 - 3.0 Excessive >17.5 Performed By: #### 4 6967 #### LAB [address] [address] Guerrero Barnett M.D. [id number] CBC WITH AUTO DIFFERENTIALon 04-25-2024 AUTO NRBC 0.0 % Normal [facility] Comment on above: Performed By: #### L [id number] #### MH LAB [address] [address] Guerrero Barnett M.D. [id number] AUTO NRBC ABS COUNT 0.00 K/mcL Normal 0.00-0.00 [facility] Comment on above: Performed By: #### L [id number] #### LAB [address] [address] Guerrero Barnett M.D. [id number] BASOPHILS ABSOLUTE COUNT 0.06 K/mcL Normal 0.00-0.30 [facility] Comment on above: Performed By: #### L [id number] #### LAB [address] [address] Guerrero Barnett M.D. [id number] Basophils/100 WBC (Bld) 0.8 % Normal [facility] Comment on above: Performed By: #### L [id number] #### LAB [address] [address] Guerrero Barnett M.D. [id number] Eosinophils (Bld) [#/Vol] 0.16 10*3/uL Normal 0.00-0.50 [facility] Comment on above: Performed By: #### L [id number] #### LAB [address] [address] Guerrero Barnett M.D. [id number] Eosinophils/100 WBC (Bld) 2.1 % Normal [facility] Comment on above: Performed By: #### L [id number] #### LAB [address] [address] Guerrero Barnett M.D. [id number] Erythrocyte distribution width (RBC) [Ratio] 13.2 % Normal 11.6-14.8 [facility] Comment on above: Performed By: #### L [id number] #### LAB [address] [address] Guerrero Barnett M.D. [id number] Hematocrit (Bld) [Volume fraction] 39.8 % Normal 36.0-46.0 [facility] Comment on above: Performed By: #### L [id number] #### LAB [address] [place] [address] Guerrero Barnett M.D. [id number] Hemoglobin (Bld) [Mass/Vol] 13.0 g/dL Normal 12.0-16.0 [facility] Comment on above: Performed By: #### L [id number] #### LAB [address] [address] Guerrero Barnett M.D. [id number] IG ABSOLUTE 0.04 K/mcL Normal 0.00-0.30 [facility] Comment on above: Performed By: #### L [id number] #### LAB [address] [address] Guerrero Barnett M.D. [id number] IG PERCENT 0.50 % [facility] Comment on above: Result Comment: The IG parameter is the percentage of metamyelocytes, myelocytes and promyelocytes. An immature granulocyte count (IG) of 1% or more suggests the possibility of infection, an IG count of 3% is very likely related to an infection. Performed By: #### L [id number] #### LAB [address] [address] Guerrero Barnett M.D. [id number] Lymphocytes (Bld) [#/Vol] 2.69 10*3/uL Normal 0.90-4.00 [facility] Comment on above: Performed By: #### L [id number] #### LAB [address] [address] Guerrero Barnett M.D. [id number] Lymphocytes/100 WBC (Bld) 34.7 % [facility] Comment on above: Performed By: #### L [id number] #### LAB [address] [address] Guerrero Barnett M.D. [id number] MCH (RBC) [Entitic mass] 29.3 pg Normal 26.0-34.0 [facility] Comment on above: Performed By: #### L [id number] #### LAB [address] [address] Guerrero Barnett M.D. [id number] MCV (RBC) [Entitic vol] 89.8 fL Normal 80.0-100.0 [facility] Comment on above: Performed By: #### L [id number] #### LAB [address] [address] Guerrero Barnett M.D. [id number] MEAN CORPUSCULAR HEMOGLOBIN CONC 32.7 g/dL Normal 31.0-37.0 [facility] Comment on above: Performed By: #### L [id number] #### LAB [address] [address] Guerrero Barnett M.D. [id number] Monocytes (Bld) [#/Vol] 0.67 10*3/uL Normal 0.30-0.90 [facility] Comment on above: Performed By: #### L [id number] #### LAB [address] [address] Guerrero Barnett M.D. [id number] Monocytes/100 WBC (Bld) 8.6 % Normal [facility] Comment on above: Performed By: #### L [id number] #### LAB [address] [address] Guerrero Barnett M.D. [id number] NEUTROPHILS ABSOLUTE COUNT 4.14 K/mcL Normal 1.70-7.00 [facility] Comment on above: Performed By: #### L [id number] #### LAB [address] [address] Guerrero Barnett M.D. [id number] Neutrophils/100 WBC (Bld) 53.3 % Normal [facility] Comment on above: Performed By: #### L [id number] #### LAB [address] [address] Guerrero Barnett M.D. [id number] Platelet mean volume (Bld) [Entitic vol] 9.6 fL Normal 9.4-12.4 [facility] Comment on above: Performed By: #### L [id number] #### LAB [address] [place] [address] Guerrero Barnett M.D. [id number] Platelets (Bld) [#/Vol] 353 10*3/uL Normal 150-400 [facility] Comment on above: Performed By: #### L [id number] #### MH LAB [address] [id number] Guerrero Barnett M.D. [id number] RBC (Bld) [#/Vol] 4.43 10*6/uL Normal 4.00-5.20 [facility] Comment on above: Performed By: #### L [id number] #### MH LAB [address] [id number] Guerrero Barnett M.D. [id number] WBC (Bld) [#/Vol] 7.76 10*3/uL Normal 4.50-11.00 [facility] Comment on above: Performed By: #### L [id number] #### LAB [address] [address] Guerrero Barnett M.D. [id number] IRON STUDY WITH FERRITINon 0 - Ferritin [Mass/Vol] 94 ng/mL Normal 13-150 [facility] Comment on above: Performed By: #### 4 [id number] #### MH LAB [address] [address] Guerrero Barnett M.D. [id number] Iron [Mass/Vol] 85 ug/dL Normal 30-160 [facility] Comment on above: Performed By: #### 4 [id number] #### LAB [address] [address] Guerrero Barnett M.D. [id number] IRON SATURATION 22 % Normal 20-50 [facility] Comment on above: Performed By: #### 4 [id number] #### MH LAB [address] [address] Guerrero Barnett M.D. [id number] TIBC (CALCULATED) 388 mcg/dL Normal 225-430 [facility] Comment on above: Performed By: #### 4 [id number] #### MH LAB [address] [address] Guerrero Barnett M.D. [id number] 25 0H VITAMIN D LEVELon 04-0 25 0H VITAMIN D LEVEL 59.1 NG/ML Normal [facility] Comment on above: Result Comment: DEFICIENT <20 NG/ML INSUFFICIENT 20-<30 NG/ML SUFFICIENT 30-100 NG/ML POTENTIAL TOXICITY >100 NG/ML Performed By: #### F X, CMPF, LIP2, ACBC, TSH2 #### Testing performed at [address] [address] CBCon 12-13-2023 ABSOLUTE BAS 0.0 10*3/uL Normal 0.0-0.2 [facility] Comment on above: Performed By: #### F X, CMPF, LIP2, ACBC, TSH2 #### Testing performed at [address] [address] ABSOLUTE EOS 0.1 10*3/uL Normal 0.0-0.7 [facility] Comment on above: Performed By: #### F X, CMPF, LIP2, ACBC, TSH2 #### Testing performed at [address] [address] ABSOLUTE NEUTROPHIL COUNT 4.2 10*3/uL Normal 1.4-6.5 [facility] Comment on above: Performed By: #### F X, CMPF, LIP2, ACBC, TSH2 #### Testing performed at [address] [address] Basophils/100 WBC (Bld) 0.2 % Normal 0.0-2.0 [facility] Comment on above: Performed By: #### F X, CMPF, LIP2, ACBC, TSH2 #### Testing performed at [address] [address] DTYPE AUTO DIFF Normal [facility] Comment on above: Performed By: #### F X, CMPF, LIP2, ACBC, TSH2 #### Testing performed at [address] [address] Eosinophils/100 WBC (Bld) 0.8 % Normal 0.0-11.0 [facility] Comment on above: Performed By: #### F X, CMPF, LIP2, ACBC, TSH2 #### Testing performed at [address] [address] Lymphocytes (Bld) [#/Vol] 2.2 10*3/uL Normal 1.2-3.4 [facility] Comment on above: Performed By: #### F X, CMPF, LIP2, ACBC, TSH2 #### Testing performed at [address] [address] Lymphocytes/100 WBC (Bld) 31.4 % Normal 20.0-55.0 [facility] Comment on above: Performed By: #### F X, CMPF, LIP2, ACBC, TSH2 #### Testing performed at [address] [address] Monocytes (Bld) [#/Vol] 0.5 10*3/uL Normal 0.0-0.7 [facility] Comment on above: Performed By: #### F X, CMPF, LIP2, ACBC, TSH2 #### Testing performed at [address] [address] Monocytes/100 WBC (Bld) 7.1 % Normal 0.0-10.0 [facility] Comment on above: Performed By: #### F X, CMPF, LIP2, ACBC, TSH2 #### Testing performed at [address] [address] Neutrophils/100 WBC (Bld) 60.5 % Normal 37.0-75.0 [facility] Comment on above: Performed By: #### F X, CMPF, LIP2, ACBC, TSH2 #### Testing performed at [address] [address] Erythrocyte distribution width (RBC) [Ratio] 13.8 % Normal 11.5-14.5 [facility] Comment on above: Performed By: #### F X, CMPF, LIP2, ACBC, TSH2 #### Testing performed at [address] [address] Hematocrit (Bld) [Volume fraction] 39.4 % Normal 36.0-48.0 [facility] Comment on above: Performed By: #### F X, CMPF, LIP2, ACBC, TSH2 #### Testing performed at [address] [address] Hemoglobin (Bld) [Mass/Vol] 13.5 g/dL Normal 12.0-16.0 [facility] Comment on above: Performed By: #### F X, CMPF, LIP2, ACBC, TSH2 #### Testing performed at [address] [address] MCH (RBC) [Entitic mass] 29.2 pg Normal 26.0-35.0 [facility] Comment on above: Performed By: #### F X, CMPF, LIP2, ACBC, TSH2 #### Testing performed at [address] [address] MCHC (RBC) [Mass/Vol] 34.2 g/dL Normal 27.0-37.0 [facility] Comment on above: Performed By: #### F X, CMPF, LIP2, ACBC, TSH2 #### Testing performed at [address] [address] MCV (RBC) [Entitic vol] 85.4 fL Normal 80.0-100.0 [facility] Comment on above: Performed By: #### F X, CMPF, LIP2, ACBC, TSH2 #### Testing performed at [address] [address] Platelet mean volume (Bld) [Entitic vol] 8.3 fL Normal 7.4-11.0 [facility] Comment on above: Performed By: #### F X, CMPF, LIP2, ACBC, TSH2 #### Testing performed at [address] [address] Platelets (Bld) [#/Vol] 270 10*3/uL Normal 130-400 [facility] Comment on above: Performed By: #### F X, CMPF, LIP2, ACBC, TSH2 #### Testing performed at [address] [address] RBC (Bld) [#/Vol] 4.61 10*6/uL Normal 4.0-5.4 [facility] Comment on above: Performed By: #### F X, CMPF, LIP2, ACBC, TSH2 #### Testing performed at [address] [address] WBC (Bld) [#/Vol] 7.0 10*3/uL Normal 3.6-11.0 [facility] Comment on above: Performed By: #### F X, CMPF, LIP2, ACBC, TSH2 #### Testing performed at [address] [address] CMP FASTINGon 12-13-2023 A:G RATIO 2.0 RATIO Normal [facility] Comment on above: Performed By: #### F X, CMPF, LIP2, ACBC, TSH2 #### Testing performed at [address] [address] ALBUMIN 5.0 G/dl Normal 3.5-5.0 [facility] Comment on above: Performed By: #### F X, CMPF, LIP2, ACBC, TSH2 #### Testing performed at [address] [address] ALP [Catalytic activity/Vol] 83 U/L Normal 38-126 [facility] Comment on above: Performed By: #### F X, CMPF, LIP2, ACBC, TSH2 #### Testing performed at [address] [address] ALT [Catalytic activity/Vol] 45 U/L High <35 [facility] Comment on above: Performed By: #### F X, CMPF, LIP2, ACBC, TSH2 #### Testing performed at [address] [address] AST [Catalytic activity/Vol] 33 U/L Normal 14-36 [facility] Comment on above: Performed By: #### F X, CMPF, LIP2, ACBC, TSH2 #### Testing performed at [address] [address] Bilirubin [Mass/Vol] 0.4 mg/dL Normal 0.2-1.3 [facility] Comment on above: Performed By: #### F X, CMPF, LIP2, ACBC, TSH2 #### Testing performed at [address] [address] Calcium [Mass/Vol] 9.0 mg/dL Normal 8.4-10.2 [facility] Comment on above: Performed By: #### F X, CMPF, LIP2, ACBC, TSH2 #### Testing performed at [address] [address] Chloride [Moles/Vol] 105 mmol/L Normal 98-107 [facility] Comment on above: Result Comment: Logan lenz note: Triglyceride levels of 600mg/dL or higher may positively bias chloride results by approximately 2.1 mmol Performed By: #### F X, CMPF, LIP2, ACBC, TSH2 #### [place] [address] CO2 [Moles/Vol] 25 mmol/L Normal 22-30 [facility] Comment on above: Performed By: #### F X, CMPF, LIP2, ACBC, TSH2 #### [place] [address] Creatinine [Mass/Vol] 0.60 mg/dL Low 0.70-1.20 [facility] Comment on above: Performed By: #### F X, CMPF, LIP2, ACBC, TSH2 #### Testing performed at [place] [id number] EST. GFR, 153 ml/min/1.73sq.m [facility] Comment on above: Performed By: #### F X, CMPF, LIP2, ACBC, TSH2 #### Testing performed at [place] [id number] EST. GFR,Non 127 ml/min/1.73sq.m [facility] Comment on above: Performed By: #### F X, CMPF, LIP2, ACBC, TSH2 #### [place] [address] GFR Information Average GFR for 20-29 years old = 116. Normal [facility] Comment on above: Result Comment: Bond Manager iram Kidney disease, GFR = <60. Kidney failure, GFR = <15. The GFR estimate is not adjusted for extreme body surface area or acute process, nor has it been validated for women or ethnic groups other than and . Performed By: #### F X, CMPF, LIP2, ACBC, TSH2 #### Testing performed at [address] [address] Glucose [Mass/Vol] 108 mg/dL High 70-100 [facility] Comment on above: Result Comment: NORMAL <100 mg/dL PREDIABETES 101-126 mg/dL DIABETES 126 mg/dL or higher Performed By: #### F X, CMPF, LIP2, ACBC, TSH2 #### Testing performed at [address] [address] Potassium [Moles/Vol] 4.1 mmol/L Normal 3.5-5.1 [facility] Comment on above: Performed By: #### F X, CMPF, LIP2, ACBC, TSH2 #### Testing performed at [address] [address] Protein [Mass/Vol] 7.5 g/dL Normal 6.3-8.2 [facility] Comment on above: Performed By: #### F X, CMPF, LIP2, ACBC, TSH2 #### Testing performed at [address] [address] Sodium [Moles/Vol] 139 mmol/L Normal 137-145 [facility] Comment on above: Performed By: #### F X, CMPF, LIP2, ACBC, TSH2 #### Testing performed at [address] [address] Urea nitrogen [Mass/Vol] 10 mg/dL Normal 7-20 [facility] Comment on above: Performed By: #### F X, CMPF, LIP2, ACBC, TSH2 #### Testing performed at [address] [address] FAX REQUESTon 12-13-2023 FAX TO [phone] Normal [facility] Comment on above: Performed By: #### F X, CMPF, LIP2, ACBC, TSH2 #### Testing performed at [address] [address] FREE T4on 12-13-2023 Free T4 [Mass/Vol] 1.06 ng/dL Normal 0.78-2.19 [facility] Comment on above: Performed By: #### T 42, VITD #### Testing performed at [address] [address] HEMOGLOBIN A1Con 12-13-2023 Glucose [Mass/Vol] 108 mg/dL Normal [facility] Comment on above: Performed By: #### H A1CT #### Testing performed at [address] [address] HbA1c (Bld) [Mass fraction] 5.4 % Normal 0-6 [facility] Comment on above: Result Comment: NORMAL <5.7% PREDIABETES 5.7-6.4% DIABETES 6.5% OR HIGHER Performed By: #### H A1CT #### Testing performed at [address] [address] LIPID PROFILEon 12-13-2023 Cholesterol [Mass/Vol] 186 mg/dL Normal 107-217 [facility] Comment on above: Performed By: #### F X, CMPF, LIP2, ACBC, TSH2 #### Testing performed at [address] [address] Cholesterol in HDL [Mass/Vol] 40 mg/dL Normal 33-75 [facility] Comment on above: Performed By: #### F X, CMPF, LIP2, ACBC, TSH2 #### Testing performed at [address] [address] Cholesterol in LDL [Mass/Vol] 126 mg/dL High <100 [facility] Comment on above: Performed By: #### F X, CMPF, LIP2, ACBC, TSH2 #### Testing performed at [address] [address] Cholesterol in VLDL [Mass/Vol] 20 mg/dL Normal 5-25 [facility] Comment on above: Performed By: #### F X, CMPF, LIP2, ACBC, TSH2 #### Testing performed at [address] [address] Cholesterol.total/Choles terol in HDL [Mass ratio] 4.65 {ratio} Normal [facility] Comment on above: Result Comment: RISK TOTAL/HDL RATIO MEN WOMEN 1/2 AVERAGE 3.43 3.27 AVERAGE 4.97 4.44 2X AVERAGE 9.55 7.05 3X AVERAGE 23.99 11.04 Performed By: #### F X, CMPF, LIP2, ACBC, TSH2 #### Testing performed at [address] [address] Triglyceride [Mass/Vol] 101 mg/dL Normal 0-150 [facility] Comment on above: Performed By: #### F X, CMPF, LIP2, ACBC, TSH2 #### Testing performed at [address] [address] TSHon 12-13-2023 TSH 1.080 uIU/ML Normal 0.465-4.680 [facility] Comment on above: Performed By: #### F X, CMPF, LIP2, ACBC, TSH2 #### Testing performed at [address] [address] POCT INFLUENZA, A Bon 2023 FLUAV RNA NELLY+probe Ql (Unsp spec) Negative Negative, Not Tested, Invalid, Not Detected [facility] FLUBV RNA NELLY+probe Ql (Unsp spec) Negative Negative, Not Tested, Invalid, Not Detected [facility] Internal controls [facility] POCT RAPID STREP Aon 024 S. pyogenes Ag Ql (Throat) Negative (+/-) [facility] Internal controls [facility] THROAT CULTUREon 12-07-2023 Throat culture SPECIMEN DESCRIPTION THROAT SWAB CULTURE USUAL OROPHARYNGEAL RAJAN * Result Note: Testing performed at [place] [id number] * REPORT STATUS 12/09/2023 * Result Note: FINAL * [facility] Comment on above: Performed By: #### T HRC #### Testing performed at [address] [address] PAP IG,RFX HPV ASCUon 2023 . . Normal [facility] . Comment Normal [facility] Comment on above: Result Comment: (NOT E) The HPV DNA reflex criteria were not met with this specimen result therefore, no HPV testing was performed. Source.............Cervix;Endocervix LMP / Prev Treat...MHN=[id number] No. of containers..01 ThinPrep Vial DIAGNOSIS: Comment [facility] Comment on above: Result Comment: NEGA TIVE FOR INTRAEPITHELIAL LESION OR MALIGNANCY. NOTE: Comment [facility] Comment on above: Result Comment: (NOT E) The Pap smear is a screening test designed to aid in the detection of premalignant and malignant conditions of the uterine cervix. It is not a diagnostic procedure and should not be used as the sole means of detecting cervical cancer. Both false-positive and false-negative reports do occur. PERFORMED BY: Comment [facility] Comment on above: Result Comment: Yadira Palacio, Impersonator Character (ASCP) SPECIMEN ADEQUACY: Comment [facility] Comment on above: Result Comment: (NOT E) Satisfactory for evaluation. Endocervical and/or squamous metaplastic cells (endocervical component) are present. TEST METHODOLOGY: Comment [facility] Comment on above: Result Comment: (NOT E) This liquid based ThinPrep(R) pap test was screened with the use of an image guided system. PERFORMED AT [facility] POCT INFLUENZA, A Bon 2023 FLUAV RNA NELLY+probe Ql (Unsp spec) Negative Negative, Not Tested, Invalid [facility] FLUBV RNA NELLY+probe Ql (Unsp spec) Negative Negative, Not Tested, Invalid [facility] Internal controls [place] [facility] SARS-COV-2 RAPID AG (WIC)on 09-29-2023 SARS-CoV-2 (COVID-19) RNA NELLY+probe Ql (Unsp spec) Not detected Normal NOT DETECTED [facility] Comment on above: Result Comment: [...] LIP2, ACBC, TSH2 #### Testing performed at [address] [address] NARRATIVE This test was performed using lateral flow immunoassay and has been approved as Emergency Use Authorization (EUA). This test does not differentiate between SARS-CoV and SARS-CoV2. Normal [facility] Comment on above: Performed By: #### F X, CMPF, LIP2, ACBC, TSH2 #### Testing performed at [address] [address] SARS-CoV-2 (COVID-19) RNA NA A+probe Ql (Unsp spec)on 09-29-2023 NARRATIVE -1 This test was performed using lateral flow immunoassay and has been approved as Emergency Use Authorization (EUA). This test does not differentiate between SARS-CoV and SARS-CoV2. [facility] SARS-CoV-2 (COVID-19) Ag IA.rapid Ql (Resp) Not detected NOT DETECTED [facility] Comment on above: Negative results [...] clinical signs and symptoms consistent with COVID-19. [facility] TESTOSTERONE, FREEon 023 FREE TESTOSTERONE 3.1 [facility] Comment on above: Result Comment: Refe rence range: 0.0 to 4.2 Unit: pg/mL [facility] Performed By: #### F X, CMPF, LIP2, ACBC, TSH2 #### Testing performed at [address] [address] DHEA-SULFATEon 07-10-2023 DHEA-SULFATE 632.0 [facility] Comment on above: Result Comment: Refe rence range: 84.8 to 378.0 Unit: ug/dL [facility] Performed By: #### F X, CMPF, LIP2, ACBC, TSH2 #### Testing performed at [address] [address] 25 0H VITAMIN D LEVELon 06-14 25 0H VITAMIN D LEVEL 61.1 NG/ML Normal [facility] Comment on above: Result Comment: DEFICIENT <20 NG/ML INSUFFICIENT 20-<30 NG/ML SUFFICIENT 30-100 NG/ML POTENTIAL TOXICITY >100 NG/ML Performed By: #### V ITD #### Testing performed at [address] [address] CBCon 07-09-2023 ABSOLUTE BAS 0.1 10*3/uL Normal 0.0-0.2 [facility] Comment on above: Performed By: #### F X, CMPF, LIP2, ACBC, TSH2 #### Testing performed at [address] [address] ABSOLUTE EOS 0.2 10*3/uL Normal 0.0-0.7 [facility] Comment on above: Performed By: #### F X, CMPF, LIP2, ACBC, TSH2 #### Testing performed at [address] [address] ABSOLUTE NEUTROPHIL COUNT 3.9 10*3/uL Normal 1.4-6.5 [facility] Comment on above: Performed By: #### F X, CMPF, LIP2, ACBC, TSH2 #### Testing performed at [address] [place] [address] Basophils/100 WBC (Bld) 1.1 % Normal 0.0-2.0 [facility] Comment on above: Performed By: #### F X, CMPF, LIP2, ACBC, TSH2 #### Testing performed at [address] [place] [address] DTYPE AUTO DIFF Normal [facility] Comment on above: Performed By: #### F X, CMPF, LIP2, ACBC, TSH2 #### Testing performed at [address] [address] Eosinophils/100 WBC (Bld) 2.5 % Normal 0.0-11.0 [facility] Comment on above: Performed By: #### F X, CMPF, LIP2, ACBC, TSH2 #### Testing performed at [address] [address] Lymphocytes (Bld) [#/Vol] 2.2 10*3/uL Normal 1.2-3.4 [facility] Comment on above: Performed By: #### F X, CMPF, LIP2, ACBC, TSH2 #### Testing performed at [address] [address] Lymphocytes/100 WBC (Bld) 32.1 % Normal 20.0-55.0 [facility] Comment on above: Performed By: #### F X, CMPF, LIP2, ACBC, TSH2 #### Testing performed at [address] [address] Monocytes (Bld) [#/Vol] 0.6 10*3/uL Normal 0.0-0.7 [facility] Comment on above: Performed By: #### F X, CMPF, LIP2, ACBC, TSH2 #### Testing performed at [address] [address] Monocytes/100 WBC (Bld) 8.0 % Normal 0.0-10.0 [facility] Comment on above: Performed By: #### F X, CMPF, LIP2, ACBC, TSH2 #### Testing performed at [address] [address] Neutrophils/100 WBC (Bld) 56.3 % Normal 37.0-75.0 [facility] Comment on above: Performed By: #### F X, CMPF, LIP2, ACBC, TSH2 #### Testing performed at [address] [address] Erythrocyte distribution width (RBC) [Ratio] 13.6 % Normal 11.5-14.5 [facility] Comment on above: Performed By: #### F X, CMPF, LIP2, ACBC, TSH2 #### Testing performed at [address] [address] Hematocrit (Bld) [Volume fraction] 43.1 % Normal 36.0-48.0 [facility] Comment on above: Performed By: #### F X, CMPF, LIP2, ACBC, TSH2 #### Testing performed at [address] [address] Hemoglobin (Bld) [Mass/Vol] 14.2 g/dL Normal 12.0-16.0 [facility] Comment on above: Performed By: #### F X, CMPF, LIP2, ACBC, TSH2 #### Testing performed at [address] [address] MCH (RBC) [Entitic mass] 28.5 pg Normal 26.0-35.0 [facility] Comment on above: Performed By: #### F X, CMPF, LIP2, ACBC, TSH2 #### Testing performed at [address] [address] MCHC (RBC) [Mass/Vol] 33.0 g/dL Normal 27.0-37.0 [facility] Comment on above: Performed By: #### F X, CMPF, LIP2, ACBC, TSH2 #### Testing performed at [address] [address] MCV (RBC) [Entitic vol] 86.3 fL Normal 80.0-100.0 [facility] Comment on above: Performed By: #### F X, CMPF, LIP2, ACBC, TSH2 #### Testing performed at [address] [address] Platelet mean volume (Bld) [Entitic vol] 7.5 fL Normal 7.4-11.0 [facility] Comment on above: Performed By: #### F X, CMPF, LIP2, ACBC, TSH2 #### Testing performed at [address] [address] Platelets (Bld) [#/Vol] 320 10*3/uL Normal 130-400 [facility] Comment on above: Performed By: #### F X, CMPF, LIP2, ACBC, TSH2 #### Testing performed at [address] [address] RBC (Bld) [#/Vol] 5.00 10*6/uL Normal 4.0-5.4 [facility] Comment on above: Performed By: #### F X, CMPF, LIP2, ACBC, TSH2 #### [place] [address] WBC (Bld) [#/Vol] 6.9 10*3/uL Normal 3.6-11.0 [facility] Comment on above: Performed By: #### F X, CMPF, LIP2, ACBC, TSH2 #### Testing performed at [place] [id number] CMP FASTINGon 07-09-2023 A:G RATIO 1.6 RATIO Normal [facility] Comment on above: Performed By: #### F X, CMPF, LIP2, ACBC, TSH2 #### [place] [address] ALBUMIN 4.9 G/dl Normal 3.5-5.0 [facility] Comment on above: Performed By: #### F X, CMPF, LIP2, ACBC, TSH2 #### Testing performed at [address] [address] ALP [Catalytic activity/Vol] 91 U/L Normal 38-126 [facility] Comment on above: Performed By: #### F X, CMPF, LIP2, ACBC, TSH2 #### Testing performed at [address] [address] ALT [Catalytic activity/Vol] 40 U/L High <35 [facility] Comment on above: Performed By: #### F X, CMPF, LIP2, ACBC, TSH2 #### Testing performed at [address] [address] AST [Catalytic activity/Vol] 34 U/L Normal 14-36 [facility] Comment on above: Performed By: #### F X, CMPF, LIP2, ACBC, TSH2 #### Testing performed at [address] [address] Bilirubin [Mass/Vol] 0.6 mg/dL Normal 0.2-1.3 [facility] Comment on above: Performed By: #### F X, CMPF, LIP2, ACBC, TSH2 #### Testing performed at [address] [address] Calcium [Mass/Vol] 9.3 mg/dL Normal 8.4-10.2 [facility] Comment on above: Performed By: #### F X, CMPF, LIP2, ACBC, TSH2 #### Testing performed at [address] [address] Chloride [Moles/Vol] 102 mmol/L Normal 98-107 [facility] Comment on above: Result Comment: Logan lenz note: Triglyceride levels of 600mg/dL or higher may positively bias chloride results by approximately 2.1 mmol Performed By: #### F X, CMPF, LIP2, ACBC, TSH2 #### [place] [address] CO2 [Moles/Vol] 25 mmol/L Normal 22-30 [facility] Comment on above: Performed By: #### F X, CMPF, LIP2, ACBC, TSH2 #### Testing performed at [address] [address] Creatinine [Mass/Vol] 0.70 mg/dL Normal 0.70-1.20 [facility] Comment on above: Performed By: #### F X, CMPF, LIP2, ACBC, TSH2 #### Testing performed at [address] [address] EST. GFR, 128 ml/min/1.73sq.m [facility] Comment on above: Performed By: #### F X, CMPF, LIP2, ACBC, TSH2 #### Testing performed at [address] [address] EST. GFR,Non 106 ml/min/1.73sq.m [facility] Comment on above: Performed By: #### F X, CMPF, LIP2, ACBC, TSH2 #### Testing performed at [address] [address] GFR Information Average GFR for 20-29 years old = 116. Normal [facility] Comment on above: Result Comment: Bond Manager iram Kidney disease, GFR = <60. Kidney failure, GFR = <15. The GFR estimate is not adjusted for extreme body surface area or acute process, nor has it been validated for women or ethnic groups other than and . Performed By: #### F X, CMPF, LIP2, ACBC, TSH2 #### Testing performed at [address] [address] Glucose [Mass/Vol] 90 mg/dL Normal 70-100 [facility] Comment on above: Result Comment: NORMAL <100 mg/dL PREDIABETES 101-126 mg/dL DIABETES 126 mg/dL or higher Performed By: #### F X, CMPF, LIP2, ACBC, TSH2 #### Testing performed at [address] [address] Potassium [Moles/Vol] 4.0 mmol/L Normal 3.5-5.1 [facility] Comment on above: Performed By: #### F X, CMPF, LIP2, ACBC, TSH2 #### Testing performed at [address] [address] Protein [Mass/Vol] 8.0 g/dL Normal 6.3-8.2 [facility] Comment on above: Performed By: #### F X, CMPF, LIP2, ACBC, TSH2 #### Testing performed at [address] [address] Sodium [Moles/Vol] 138 mmol/L Normal 137-145 [facility] Comment on above: Performed By: #### F X, CMPF, LIP2, ACBC, TSH2 #### Testing performed at [address] [address] Urea nitrogen [Mass/Vol] 12 mg/dL Normal 7-20 [facility] Comment on above: Performed By: #### F X, CMPF, LIP2, ACBC, TSH2 #### Testing performed at [address] [address] HEMOGLOBIN A1Con 07-09-2023 Glucose [Mass/Vol] 108 mg/dL Normal [facility] Comment on above: Performed By: #### H A1CT #### Testing performed at [address] [address] HbA1c (Bld) [Mass fraction] 5.4 % Normal 0-6 [facility] Comment on above: Result Comment: NORMAL <5.7% PREDIABETES 5.7-6.4% DIABETES 6.5% OR HIGHER Performed By: #### H A1CT #### Testing performed at [address] [address] TESTOSTER.FREE-TOTALon 04-08 FREE TESTOSTERONE 3.7 Normal [facility] Comment on above: Result Comment: Refe rence range: 0.0 to 4.2 Unit: pg/mL [facility] Performed By: #### F X, CMPF, LIP2, ACBC, TSH2 #### Testing performed at [address] [address] DHEA-SULFATEon 04-02-2023 DHEA-SULFATE 573.0 High [facility] Comment on above: Result Comment: Refe rence range: 84.8 to 378.0 Unit: ug/dL [facility] Performed By: #### F X, CMPF, LIP2, ACBC, TSH2 #### Testing performed at [address] [address] TESTOSTER.FREE-TOTALon 04-02 Testosterone [Mass/Vol] 46 ng/dL Normal [facility] Comment on above: Result Comment: Refe rence range: 13 to 71 Unit: ng/dL [facility] Performed By: #### F X, CMPF, LIP2, ACBC, TSH2 #### Testing performed at [address] [address] 0H VITAMIN D LEVELon 03-14 25 0H VITAMIN D LEVEL 28.5 NG/ML Normal [facility] Comment on above: Result Comment: DEFICIENT <20 NG/ML INSUFFICIENT 20-<30 NG/ML SUFFICIENT 30-100 NG/ML POTENTIAL TOXICITY >100 NG/ML Performed By: #### V ITD #### Testing performed at [address] [address] CMP FASTINGon 04-01-2023 A:G RATIO 1.5 RATIO Normal [facility] Comment on above: Performed By: #### F X, CMPF, LIP2, ACBC, TSH2 #### Testing performed at [address] [address] ALBUMIN 4.7 G/dl Normal 3.5-5.0 [facility] Comment on above: Performed By: #### F X, CMPF, LIP2, ACBC, TSH2 #### Testing performed at [address] [address] ALP [Catalytic activity/Vol] 100 U/L Normal 38-126 [facility] Comment on above: Performed By: #### F X, CMPF, LIP2, ACBC, TSH2 #### Testing performed at [address] [address] ALT [Catalytic activity/Vol] 36 U/L High <35 [facility] Comment on above: Performed By: #### F X, CMPF, LIP2, ACBC, TSH2 #### Testing performed at [address] [address] AST [Catalytic activity/Vol] 31 U/L Normal 14-36 [facility] Comment on above: Performed By: #### F X, CMPF, LIP2, ACBC, TSH2 #### Testing performed at [address] [address] Bilirubin [Mass/Vol] 0.5 mg/dL Normal 0.2-1.3 [facility] Comment on above: Performed By: #### F X, CMPF, LIP2, ACBC, TSH2 #### Testing performed at [address] [address] Calcium [Mass/Vol] 9.5 mg/dL Normal 8.4-10.2 [facility] Comment on above: Performed By: #### F X, CMPF, LIP2, ACBC, TSH2 #### Testing performed at [address] [address] Chloride [Moles/Vol] 100 mmol/L Normal 98-107 [facility] Comment on above: Result Comment: Plea note: Triglyceride levels of 600mg/dL or higher may positively bias chloride results by approximately 2.1 mmol Performed By: #### F X, CMPF, LIP2, ACBC, TSH2 #### [place] [address] CO2 [Moles/Vol] 25 mmol/L Normal 22-30 [facility] Comment on above: Performed By: #### F X, CMPF, LIP2, ACBC, TSH2 #### [place] [address] Creatinine [Mass/Vol] 0.64 mg/dL Low 0.70-1.20 [facility] Comment on above: Performed By: #### F X, CMPF, LIP2, ACBC, TSH2 #### Testing performed at [place] [id number] EST. GFR, 142 ml/min/1.73sq.m [facility] Comment on above: Performed By: #### F X, CMPF, LIP2, ACBC, TSH2 #### Testing performed at [place] [id number] EST. GFR,Non 117 ml/min/1.73sq.m [facility] Comment on above: Performed By: #### F X, CMPF, LIP2, ACBC, TSH2 #### [place] [address] GFR Information Average GFR for 20-29 years old = 116. Normal [facility] Comment on above: Result Comment: Bond Manager iram Kidney disease, GFR = <60. Kidney failure, GFR = <15. The GFR estimate is not adjusted for extreme body surface area or acute process, nor has it been validated for women or ethnic groups other than and . Performed By: #### F X, CMPF, LIP2, ACBC, TSH2 #### Testing performed at [place] [id number] Glucose [Mass/Vol] 80 mg/dL Normal 70-100 [facility] Comment on above: Result Comment: NORMAL <100 mg/dL PREDIABETES 101-126 mg/dL DIABETES 126 mg/dL or higher Performed By: #### F X, CMPF, LIP2, ACBC, TSH2 #### Testing performed at [address] [address] Potassium [Moles/Vol] 4.2 mmol/L Normal 3.5-5.1 [facility] Comment on above: Performed By: #### F X, CMPF, LIP2, ACBC, TSH2 #### Testing performed at [address] [address] Protein [Mass/Vol] 7.8 g/dL Normal 6.3-8.2 [facility] Comment on above: Performed By: #### F X, CMPF, LIP2, ACBC, TSH2 #### Testing performed at [address] [address] Sodium [Moles/Vol] 139 mmol/L Normal 137-145 [facility] Comment on above: Performed By: #### F X, CMPF, LIP2, ACBC, TSH2 #### Testing performed at [address] [address] Urea nitrogen [Mass/Vol] 12 mg/dL Normal 7-20 [facility] Comment on above: Performed By: #### F X, CMPF, LIP2, ACBC, TSH2 #### Testing performed at [address] [address] FAX REQUESTon 04-01-2023 FAX TO [phone] Normal [facility] Comment on above: Performed By: #### F X, CMPF, LIP2, ACBC, TSH2 #### Testing performed at [address] [address] Provider Note - ED v3on 12-13 Provider [...] SIGNS: T PRBP SpO2O2(LPM) %FiO2 Method 07-Jan-2023 09:04:[id number] 44/87 98 MDM MDM/ED COURSE: Ladonna is [...] ill patient: no Electronic Signatures: Marie Mario (BENEFITS REPRESENTATIVE-ASSOCIATE PROFESSOR OF FORESTRY) (Signed 07-Jan-2023 11:49) Authored: ED Notes, HPI, PMH, ROS, PE, Results/Vital Signs, MDM/ED Course, Clinical Impression, Attestation, Chart Review, Scores Last Updated: 07-Jan-2023 11:49 by Marie Mario (BENEFITS REPRESENTATIVE-ASSOCIATE PROFESSOR OF FORESTRY) [facility] Provider Note - ED v3on 04-2 Provider [...] did not treat her symptoms with any [id number] medications because she was afraid of breast-feeding. [...] SIGNS: T PRBP SpO2O2(LPM) %FiO2 Method 31-Dec-2022 11:12:[id number] 98 MDM MDM/ED COURSE: Drake is [...] ill patient: no Electronic Signatures: Marie Mario (BENEFITS REPRESENTATIVE-ASSOCIATE PROFESSOR OF FORESTRY) (Signed 31-Dec-2022 12:09) Authored: ED Notes, HPI, PMH, ROS, PE, Results/Vital Signs, MDM/ED Course, Clinical Impression, Attestation, Chart Review, Scores Last Updated: 31-Dec-2022 12:09 by Marie Mario (BENEFITS REPRESENTATIVE-ASSOCIATE PROFESSOR OF FORESTRY) [facility] CBC, EDIF, PLATELETon 2021 ABSOLUTE BASOPHIL COUNT 0.1 10*3/uL 0.0 - 0.2 10*3/uL [facility] Comment on above: Testing performed at [facility], [place], [place] [address] Basophils/100 WBC (Bld) 0.4 % 0.0 - 2.0 % [facility] Differential cell count method Nom (Bld) AUTO DIFF % [facility] Eosinophils (Bld) [#/Vol] 0.1 10*3/uL 0.0 - 0.7 10*3/uL [facility] Eosinophils/100 WBC (Bld) 0.8 % 0.0 - 11.0 % [facility] Erythrocyte distribution width (RBC) [Ratio] 14.1 % 11.5 - 14.5 % [facility] Hematocrit (Bld) [Volume fraction] 35.1 % Low 36.0 - 48.0 % [facility] Hemoglobin (Bld) [Mass/Vol] 11.9 g/dL Low [facility] Interpretation and review of laboratory results Abnormal [facility] Lymphocytes (Bld) [#/Vol] 2.2 10*3/uL 1.2 - 3.4 10*3/uL [facility] Lymphocytes/100 WBC (Bld) 15.4 % Low 20.0 - 55.0 % [facility] MCH (RBC) [Entitic mass] 27.8 pg 26.0 - 35.0 PG [facility] MCHC (RBC) [Mass/Vol] 34.0 g/dL [facility] [email or web address] [facility] MCV (RBC) [Entitic vol] 81.8 fL [facility] [employer] [facility] Monocytes (Bld) [#/Vol] 1.3 10*3/uL High 0.0 - 0.7 10*3/uL [facility] Monocytes/100 WBC (Bld) 8.8 % 0.0 - 10.0 % [facility] Neutrophils (Bld) [#/Vol] 10.7 10*3/uL High 1.4 - 6.5 10*3/uL [facility] Neutrophils/100 WBC (Bld) 74.6 % 37.0 - 75.0 % [facility] Platelet mean volume (Bld) [Entitic vol] 8.7 fL [facility] Platelets (Bld) [#/Vol] 194 10*3/uL 130. 0 - 400.0 10*3/uL [facility] RBC (Bld) [#/Vol] 4.29 10*6/uL 4.0 - 5.4 10*6/uL [facility] WBC (Bld) [#/Vol] 14.3 10*3/uL High 3.6 - 11.0 10*3/uL [facility] CBC, EDIF, PLATELETon 2021 ABSOLUTE BASOPHIL COUNT 0.1 10*3/uL 0.0 - 0.2 10*3/uL [facility] Comment on above: Testing performed at [facility], [place], [place] [address] Basophils/100 WBC (Bld) 0.6 % 0.0 - 2.0 % [facility] Differential cell count method Nom (Bld) AUTO DIFF % [facility] Eosinophils (Bld) [#/Vol] 0.2 10*3/uL 0.0 - 0.7 10*3/uL [facility] Eosinophils/100 WBC (Bld) 2.0 % 0.0 - 11.0 % [facility] Erythrocyte distribution width (RBC) [Ratio] 14.4 % 11.5 - 14.5 % [facility] Hematocrit (Bld) [Volume fraction] 38.7 % 36.0 - 48.0 % [facility] Hemoglobin (Bld) [Mass/Vol] 12.8 g/dL [facility] Interpretation and review of laboratory results Abnormal [facility] Lymphocytes (Bld) [#/Vol] 2.2 10*3/uL 1.2 - 3.4 10*3/uL [facility] Lymphocytes/100 WBC (Bld) 23.1 % 20.0 - 55.0 % [facility] MCH (RBC) [Entitic mass] 27.5 pg 26.0 - 35.0 PG [facility] MCHC (RBC) [Mass/Vol] 33.2 g/dL [facility] MCV (RBC) [Entitic vol] 82.7 fL A [facility] Monocytes (Bld) [#/Vol] 0.9 10*3/uL High 0.0 - 0.7 10*3/uL [facility] Monocytes/100 WBC (Bld) 9.6 % 0.0 - 10.0 % [facility] Neutrophils (Bld) [#/Vol] 6.3 10*3/uL 1.4 - 6.5 10*3/uL [facility] Neutrophils/100 WBC (Bld) 64.7 % 37.0 - 75.0 % [facility] Platelet mean volume (Bld) [Entitic vol] 8.3 fL [facility] Platelets (Bld) [#/Vol] 221 10*3/uL 130. 0 - 400.0 10*3/uL [facility] RBC (Bld) [#/Vol] 4.68 10*6/uL 4.0 - 5.4 10*6/uL [facility] WBC (Bld) [#/Vol] 9.7 10*3/uL 3.6 - 11.0 10*3/uL [facility] GLUCOSE (POC DEVICE)on 08-11 GLUCOSE, POINT OF CARE [address] [facility] Operator [id number] [facility] NOVEL CORONAVIRUS LAB 1 - NA SOPHARYNGEALon 08-11-2022 NARRATIVE -1 This test was performed using isothermal NELLY and has been approved as Emergency Use Authorization (EUA) for the qualitative detection [id number] nucleic acid. [facility] Comment on above: Testing performed at [place], [place] [address] SARS-CoV-2 (COVID-19) RNA NELLY+probe Ql (Unsp spec) Not detected NOT DETECTED [facility] Comment on above: Negative results [...] patient is critically ill or clinically deteriorating. [facility] RAPID TOX SCREEN WITH RELEX TO DRUGMCon 08-11-2022 Amphetamine (U) [Mass/Vol] Negative NEGATIVE NG/ML [facility] Comment on above: <500 ng/ml CUTOFF Barbiturates Screen Ql (U) Negative NEGATIVE NG/ML [facility] Comment on above: <200 ng/ml CUTOFF Benzodiazepines Ql (U) Negative NEGATIVE NG/M L [facility] Comment on above: <150 ng/ml CUTOFF Benzoylecgonine Ql (U) Negative NEGATIVE NG/M L [facility] Comment on above: <150 ng/ml CUTOFF Buprenorphine Ql (U) Negative NEGATIVE NG/ML [facility] Comment on above: <10 ng/ml CUTOFF Testing performed at [place], [place] [address] Cannabinoids Screen Ql (U) Negative NEGATIVE NG/ML [facility] Comment on above: <50 ng/ml CUTOFF Methadone Screen Ql (U) Negative NEGATIVE NG/ ML [facility] Comment on above: <200 ng/ml CUTOFF Methamphetamine (U) [Mass/Vol] Negative NEGATIVE NG/ML [facility] Comment on above: <500 ng/ml CUTOFF Opiates Screen Ql (U) Negative NEGATIVE NG/ML [facility] Comment on above: <100 ng/ml CUTOFF oxyCODONE Ql (U) Negative NEGATIVE NG/ML [facility] Comment on above: <100 ng/ml CUTOFF Phencyclidine Screen method >25 ng/mL Ql (U) Negative NEGATIVE NG/ML [facility] Comment on above: <25 ng/ml CUTOFF Propoxyphene+Norpropoxyp hene Screen Ql (U) Negative NEGATIVE NG/ML [facility] Comment on above: <300 ng/ml CUTOFF Tricyclic antidepressants Screen Ql (U) Negative NEGATIVE NG/ML [facility] Comment on above: <300 ng/ml CUTOFF [facility] Heart R-R duration USo n 08-05-2022 [facility] Heart R-R duration [facility] n 07-30-2022 [facility] Heart R-R duration US n 07-23-2022 [facility] Heart R-R duration [facility] n 07-17-2022 [facility] HEMOGLOBIN A1Con 07-17-2022 Glucose [Mass/Vol] 105 mg/dL [facility] Comment on above: Testing performed at [place], [place] [address] HbA1c (Bld) [Mass fraction] 5.3 % 0 - 6 % [facility] Comment on above: NORMAL <5.7% PREDIABETES 5.7-6.4% DIABETES 6.5% OR HIGHER [facility] CBC, EDIF, PLATELETon 2021 ABSOLUTE BASOPHIL COUNT 0.0 10*3/uL 0.0 - 0.2 10*3/uL [facility] Comment on above: Testing performed at [place], [place] [address] Basophils/100 WBC (Bld) 0.3 % 0.0 - 2.0 % [facility] Differential cell count method Nom (Bld) AUTO DIFF % [facility] Eosinophils (Bld) [#/Vol] 0.1 10*3/uL 0.0 - 0.7 10*3/uL [facility] Eosinophils/100 WBC (Bld) 0.5 % 0.0 - 11.0 % [facility] Erythrocyte distribution width (RBC) [Ratio] 13.7 % 11.5 - 14.5 % [facility] Hematocrit (Bld) [Volume fraction] 37.1 % 36.0 - 48.0 % [facility] Hemoglobin (Bld) [Mass/Vol] 12.6 g/dL [facility] Interpretation and review of laboratory results Abnormal [facility] Lymphocytes (Bld) [#/Vol] 1.4 10*3/uL 1.2 - 3.4 10*3/uL [facility] Lymphocytes/100 WBC (Bld) 12.8 % Low 20.0 - 55.0 % [facility] MCH (RBC) [Entitic mass] 28.5 pg 26.0 - 35.0 PG [facility] MCHC (RBC) [Mass/Vol] 33.9 g/dL [facility] MCV (RBC) [Entitic vol] 83.9 fL [facility] Monocytes (Bld) [#/Vol] 0.8 10*3/uL High 0.0 - 0.7 10*3/uL [facility] Monocytes/100 WBC (Bld) 7.3 % 0.0 - 10.0 % [facility] Neutrophils (Bld) [#/Vol] 8.7 10*3/uL High 1.4 - 6.5 10*3/uL [facility] Neutrophils/100 WBC (Bld) 79.1 % High 37.0 - 75.0 % [facility] Platelet mean volume (Bld) [Entitic vol] 9.2 fL [facility] Platelets (Bld) [#/Vol] 216 10*3/uL 130. 0 - 400.0 10*3/uL [facility] RBC (Bld) [#/Vol] 4.42 10*6/uL 4.0 - 5.4 10*6/uL [facility] WBC (Bld) [#/Vol] 11.0 10*3/uL 3.6 - 11.0 10*3/uL [facility] COMPREHENSIVE METABOLIC PANE Keo 07-13-2022 Albumin [Mass/Vol] 3.5 G/dl 3.5 - 5.0 G/dl [facility] Albumin/Globulin [Mass ratio] 1.2 {ratio} Low [facility] ALP [Catalytic activity/Vol] 131 U/L [facility] ALT [Catalytic activity/Vol] 18 U/L [facility] AST [Catalytic activity/Vol] 23 U/L [facility] Bilirubin [Mass/Vol] 0.1 mg/dL Low [facility] Calcium [Mass/Vol] 8.9 mg/dL [facility] Chloride [Moles/Vol] 106 mmol/L [facility] Comment on above: Please note: Triglyc eride levels of 600mg/dL or higher may positively bias chloride results by approximately 2.1 mmol CO2 [Moles/Vol] 22 mmol/L [facility] Creatinine [Mass/Vol] 0.70 mg/dL [facility] GFR COMMENT Average GFR for 20-29 years old = 116. [facility] Comment on above: Chronic Kidney disea se, GFR = <60. Kidney failure, GFR = <15. The GFR estimate is not adjusted for extreme body surface area or acute process, nor has it been validated for women or ethnic groups other than and . Testing performed at [place], [place] [address] GFR/1.73 sq M.predicted among blacks MDRD (S/P/Bld) [Vol rate/Area] 129 mL/min/{1.73_m2} ml/min/1.73sq. m [facility] GFR/1.73 sq M.predicted among non-blacks MDRD (S/P/Bld) [Vol rate/Area] 107 mL/min/{1.73_m2} ml/min/1.73sq. m [facility] Glucose post fast [Mass/Vol] 110 mg/dL High [facility] Comment on above: NORMAL <100 mg/dL PREDIABETES 101-126 mg/dL DIABETES 126 mg/dL or higher Potassium [Moles/Vol] 3.9 mmol/L [facility] Protein [Mass/Vol] 6.4 g/dL [facility] Sodium [Moles/Vol] 134 mmol/L Low [facility] Urea nitrogen [Mass/Vol] 11 mg/dL [facility] LACTATE DEHYDROGENASEon 06-15 LDH [Catalytic activity/Vol] 91 U/L Low [facility] Comment on above: Testing performed at [place], [place] [address] No Panel Informationon 07-13 Interpretation and review of laboratory results Abnormal [facility] Heart R-R duration USo n 07-09-2022 [facility] Heart R-R duration USo n 06-29-2022 [facility] Heart R-R duration USo n 06-25-2022 [facility] Heart R-R duration USo n 06-18-2022 [facility] OB ultrasound panelon 2021 : Single live iup in Vertex position. EFW is 1677g, which is the 48.5 percentile. heart rate 130 bpm. Umbilical artery S/D ratio is 2.85. [facility] Radiology Study observation (narrative) [facility] ECGOrdered By: Alvarado hawk on 06-16-2022 [facility] Work Phone: Heart R-R duration USo n 05-22-2022 Josse Walter MD - 05/22/2022 2:00 PM EDT Non-stress Test Gestational age: 27w1d Indication: Decreased movement Baseline: 140 bpm 10x10s: N/A Variability: moderate Decelerations: absent Contractions: absent Duration >20 minutes Comments: Reassuring for gestational age 0905/22/22 Josse Walter MD [facility] OB ultrasound panelon 2021 : Single live IUP in Breech position. Normal Anatomy seen. Outflow tracts not seen - follow up ultrasound in 1 month. ASHLEE by US - 08/20/2022 which is consistent with gestational age. [facility] Radiology Study observation (narrative) [facility] OB ultrasound panelon 2021 : 1. Single noted within the uterus 2. heart rate of 159 bpm. [facility] REFERRING PHYSICIAN: Dr. Lee TECHNOLOGIST: Radha Simon PROCEDURE DATE : 02/02/2022 INDICATIONS: Early gestational, couldn't heart heart tones PROCEDURE DETAILS A single was noted within the uterus. heart rate of 159 bpm. FINAL [facility] Radiology Study observation (narrative) [facility] OB ultrasound panelon 2021 : 1. Single of 10 weeks and 4 days. 2. heart rate of 171 bpm. 3. US ASHLEE 08/20/2022, which is inconsistent with ASHLEE by LMP and should be changed. [facility] REFERRING PHYSICIAN: Dr. Lee TECHNOLOGIST: Radha Simon PROCEDURE DATE : 01/26/2022 INDICATIONS: Early gestational, dating LMP 11/08/2021, ASHLEE 08/15/2022 PROCEDURE DETAILS A single was noted within the uterus. heart rate of 171 bpm. The CRL measures 3.65 cm , 10 weeks 4 days. FINAL [facility] Radiology Study observation (narrative) [facility] [employer] ABO/RH(D) TYPINGon 2 ABO and Rh group Nom (Bld ) Positive [facility] ABO and Rh group Nom (Bld ) Testing performed at [place], [place] [address] [facility] ANTIBODY SCREENon 01-09-2022 Blood group antibody screen Ql Negative [facility] EXPIRATION DATE 01/12/2022,2359 [facility] EXPIRATION DATE Testing performed at [place], [place] [address] [facility] CBC, EDIF, PLATELETon 2021 ABSOLUTE BASOPHIL COUNT 0.0 10*3/uL 0.0 - 0.2 10*3/uL [facility] Comment on above: Testing performed at [place] [address] Basophils/100 WBC (Bld) 0.5 % 0.0 - 2.0 % [facility] Differential cell count method Nom (Bld) AUTO DIFF % [facility] Eosinophils (Bld) [#/Vol] 0.10 10*3/uL 0.0 - 0.7 10*3/uL [facility] Eosinophils/100 WBC (Bld) 1.1 % 0.0 - 11.0 % [facility] Erythrocyte distribution width (RBC) [Ratio] 12.8 % 11.5 - 14.5 % [facility] Hematocrit (Bld) [Volume fraction] 37.9 % 36.0 - 48.0 % [facility] Hemoglobin (Bld) [Mass/Vol] 13.3 g/dL [facility] Interpretation and review of laboratory results Abnormal [facility] Lymphocytes (Bld) [#/Vol] 1.40 10*3/uL 1.2 - 3.4 10*3/uL [facility] Lymphocytes/100 WBC (Bld) 19.9 % Low 20.0 - 55.0 % [facility] MCH (RBC) [Entitic mass] 30.5 pg 26.0 - 35.0 PG [facility] MCHC (RBC) [Mass/Vol] 35.0 g/dL [facility] MCV (RBC) [Entitic vol] 87.1 fL [facility] Monocytes (Bld) [#/Vol] 0.5 10*3/uL 0.0 - 0.7 10*3/uL [facility] Monocytes/100 WBC (Bld) 7.4 % 0.0 - 10.0 % [facility] Neutrophils (Bld) [#/Vol] 5.1 10*3/uL 1.4 - 6.5 10*3/uL [facility] Neutrophils/100 WBC (Bld) 71.1 % 37.0 - 75.0 % [facility] Platelet mean volume (Bld) [Entitic vol] 7.8 fL [facility] Platelets (Bld) [#/Vol] 296 10*3/uL 130. 0 - 400.0 10*3/uL [facility] RBC (Bld) [#/Vol] 4.35 10*6/uL 4.0 - 5.4 10*6/uL [facility] WBC (Bld) [#/Vol] 7.2 10*3/uL 3.6 - 11.0 10*3/uL [facility] HIV 1+2 Ab+HIV1 p24 Ag IA Ql on 01-09-2022 HIV 1+2 Ab IA Ql Non-Reactive NONREACTIVE [facility] Comment on above: Testing performed at [address] System RAPID TOX SCREEN WITH RELEX TO DRUGMCon 01-09-2022 Amphetamine (U) [Mass/Vol] Negative NEGATIVE NG/ML [facility] Comment on above: <500 ng/ml CUTOFF Barbiturates Screen Ql (U) Negative NEGATIVE NG/ML [facility] Comment on above: <200 ng/ml CUTOFF Benzodiazepines Ql (U) Negative NEGATIVE NG/M L [facility] Comment on above: <150 ng/ml CUTOFF Benzoylecgonine Ql (U) Negative NEGATIVE NG/M L [facility] Comment on above: <150 ng/ml CUTOFF Buprenorphine Ql (U) Negative NEGATIVE NG/ML [facility] Comment on above: <10 ng/ml CUTOFF Testing performed at [place] [address] Cannabinoids Screen Ql (U) Negative NEGATIVE NG/ML [facility] Comment on above: <50 ng/ml CUTOFF Methadone Screen Ql (U) Negative NEGATIVE NG/ ML [facility] Comment on above: <200 ng/ml CUTOFF Methamphetamine (U) [Mass/Vol] Negative NEGATIVE NG/ML [facility] Comment on above: <500 ng/ml CUTOFF Opiates Screen Ql (U) Negative NEGATIVE NG/ML [facility] Comment on above: <100 ng/ml CUTOFF oxyCODONE Ql (U) Negative NEGATIVE NG/ML [facility] Comment on above: <100 ng/ml CUTOFF Phencyclidine Screen method >25 ng/mL Ql (U) Negative NEGATIVE NG/ML [facility] Comment on above: <25 ng/ml CUTOFF Propoxyphene+Norpropoxyp hene Screen Ql (U) Negative NEGATIVE NG/ML [facility] Comment on above: <300 ng/ml CUTOFF Tricyclic antidepressants Screen Ql (U) Negative NEGATIVE NG/ML [facility] Comment on above: <300 ng/ml CUTOFF [facility] TSH with Reflex Free T4on Interpretation and review of laboratory results Normal [facility] TSH Qn 1.52 m[IU]/L [facility] Comprehensive Metabolic Pane keo 09-25-2019 Albumin [Mass/Vol] 4.4 g/dL 3.2 - 5.2 g/dL [facility] ALP [Catalytic activity/Vol] 94 U/L 40 - 140 U/L [facility] ALT [Catalytic activity/Vol] 51 U/L 14 - 65 U/L [facility] Anion gap [Moles/Vol] 10 mmol/L 10 - 20 mmol/L [facility] AST [Catalytic activity/Vol] 18 U/L 0 - 45 U/L [facility] Bilirubin [Mass/Vol] 0.4 mg/dL 0 - 1.3 mg/dL [facility] Calcium [Mass/Vol] 9.5 mg/dL 8.4 - 10. 2 mg/dL [facility] Chloride [Moles/Vol] 104 mmol/L 98 - 10 8 mmol/L [facility] Creatinine [Mass/Vol] 0.90 mg/dL 0.4 - 1.1 mg/dL [facility] GFR/1.73 sq M predicted among non-blacks MDRD (S/P/Bld) [Vol rate/Area] The eGFR should be used for monitoring renal function only and not for medication dosing. [facility] GFR/1.73 sq M.predicted CKD-EPI (S/P/Bld) [Vol rate/Area] 90 >=60 mL/min/1.73 m2 [facility] Glucose [Mass/Vol] 82 mg/dL 65 - 99 mg/dL [facility] [Moles/Vol] 28 mmol/L 21 - 32 mmol/L [facility] Potassium [Moles/Vol] 4.0 mmol/L 3.5 - 5.1 mmol/L [facility] Protein [Mass/Vol] 8.0 g/dL 6 - 8 g/dL [facility] Sodium [Moles/Vol] 138 mmol/L 135 - 145 mmol/L [facility] Urea nitrogen [Mass/Vol] 10 mg/dL 8 - 25 mg/d L [facility] Urea nitrogen/Creatinine [Mass ratio] 11.1 mg/mg [facility] Follicle Stimulating Hormone on 09-25-2019 Follitropin Qn 2.6 m[IU]/mL mIU/mL [facility] FSH Reference Range: (Units mIU/mL) Pubertal adult females, menstrual cycle phases: Menarche to pre-menopause Follicular 2.3 - 12.6 Mid-cycle peak 5.2 - 17.5 Luteal 1.7 - 12.9 Post-menopausal On Menopausal Hormone Therapy (MHT) 5.9 - 72.8 Not on MHT 12.7 - 132.2 [facility] Luteinizing Hormoneon 2019 Lutropin Qn 7.4 m[IU]/mL mIU/mL [facility] LH Reference Range (Units mIU/mL) Female: Pubertal adult females, menstrual cycle phase: Follicular 1.9 - 12.8 Mid-cycle peak 22.8 - 76.1 Luteal 0.6 - 13.5 Post-menopausal: On Menopausal Hormone Therapy (MHT) 1.1 - 52.4 Not on MHT 8.6 - 61.8 [facility] Otheron 09-25-2019 Interpretation and review of laboratory results Normal [facility] TSH with Reflex Free T4on TSH Qn 3.77 m[IU]/L [facility] Vital Signs Date Time Vital Sign Value Performing Clinician Facility 06-25-2025 15:16-0400 Body height 162.56 cm Keyla ALDRIDGE Work Phone: [facility] 06-25-2025 15:16-0400 Body mass index (BMI) [Ratio] 31.4 kg/m2 Keyla ALDRIDGE Work Phone: [facility] 06-25-2025 15:16-0400 Body weight 83.17 kg Keyla ALDRIDGE Work Phone: [facility] 06-25-2025 15:16-0400 Diastolic blood pressure 74 mm[Hg] Keyla Gideon HEALTH CARE ANALYST-C Work Phone: [facility] 06-25-2025 15:16-0400 Systolic blood pressure 108 mm[Hg] Keyla Gideon HEALTH CARE ANALYST-C Work Phone: [facility] 06-13-2025 15:26-0400 Body height 162.56 cm Keyla Gideon HEALTH CARE ANALYST-C Work Phone: [facility] 06-13-2025 15:26-0400 Body mass index (BMI) [Ratio] 31.7 kg/m2 Keyla Gideon HEALTH CARE ANALYST-C Work Phone: [phone] [place] [address] 06-13-2025 15:26-0400 Body weight 83.91 kg Keyla Gideon HEALTH CARE ANALYST-C Work Phone: [phone] [place] [address] 06-13-2025 15:26-0400 Diastolic blood pressure 67 mm[Hg] Keyla Gideon HEALTH CARE ANALYST-C Work Phone: [phone] [address] 06-13-2025 15:26-0400 Systolic blood pressure 101 mm[Hg] Keyla Gideon HEALTH CARE ANALYST-C Work Phone: [phone] [place] [address] 05-22-2025 15:35-0400 Body height 162.56 cm Keyla Gideon HEALTH CARE ANALYST-C Work Phone: [phone] [place] [address] 05-22-2025 15:35-0400 Body mass index (BMI) [Ratio] 31.6 kg/m2 Keyla Gideon HEALTH CARE ANALYST-C Work Phone: [facility] 05-22-2025 15:35-0400 Body weight 83.6 kg Keyla Gideon HEALTH CARE ANALYST-C Work Phone: [phone] [place] [address] 05-22-2025 15:35-0400 Diastolic blood pressure 75 mm[Hg] Keyla Gideon HEALTH CARE ANALYST-C Work Phone: [facility] 05-22-2025 15:35-0400 Systolic blood pressure 115 mm[Hg] Keyla Gideon HEALTH CARE ANALYST-C Work Phone: [facility] 04-27-2025 11:42-0400 Body height 162.56 cm Keyla Meneses HEALTH CARE ANALYST-C Work Phone: [facility] 04-27-2025 11:42-0400 Body mass index (BMI) [Ratio] 30.4 kg/m2 Keyla Meneses HEALTH CARE ANALYST-C Work Phone: [facility] 04-27-2025 11:42-0400 Body weight 80.48 kg Keyla Meneses HEALTH CARE ANALYST-C Work Phone: [facility] 04-27-2025 11:42-0400 Diastolic blood pressure 69 mm[Hg] Keyla Meneses HEALTH CARE ANALYST-C Work Phone: [facility] [facility] 04-27-2025 11:42-0400 Systolic blood pressure 105 mm[Hg] Keyla Meneses HEALTH CARE ANALYST-C Work Phone: [facility] 03-30-2025 13:58-0400 Body height 162.56 cm Keyla Meneses HEALTH CARE ANALYST-C Work Phone: [facility] 03-30-2025 13:58-0400 Body mass index (BMI) [Ratio] 29 kg/m2 Keyla Meneses HEALTH CARE ANALYST-C Work Phone: [facility] 03-30-2025 13:58-0400 Body weight 76.77 kg Keyla Meneses HEALTH CARE ANALYST-C Work Phone: [facility] 03-30-2025 13:58-0400 Diastolic blood pressure 72 mm[Hg] Keyla Meneses HEALTH CARE ANALYST-C Work Phone: [facility] 03-30-2025 13:58-0400 Systolic blood pressure 116 mm[Hg] Keyla Meneses HEALTH CARE ANALYST-C Work Phone: [facility] 03-26-2025 11:59-0400 Body height 162.6 cm Anna Fuentes MD Work Phone: [facility] 03-26-2025 11:59-0400 Body mass index (BMI) [Ratio] 26.98 kg/m2 Anna Fuentes MD Work Phone: [facility] 03-26-2025 11:59-0400 Body weight 71.31 kg Anna Fuentes MD Work Phone: [facility] 03-26-2025 11:59-0400 Diastolic blood pressure 71 mm[Hg] Anna Fuentes MD Work Phone: [facility] 03-26-2025 11:59-0400 Heart rate 86 /min Anna Fuentes MD Work Phone: [facility] 03-26-2025 11:59-0400 Respiratory rate 16 /min Anna Fuentes MD Work Phone: [facility] 03-26-2025 11:59-0400 SaO2% (BldA) [Mass fraction] 100 % Anna Fuentes MD Work Phone: [facility] 03-26-2025 11:59-0400 Systolic blood pressure 111 mm[Hg] Anna Fuentes MD Work Phone: [facility] 03-01-2025 13:22-0400 Body height 162.56 cm Keyla Meneses NP-C Work Phone: [facility] 03-01-2025 13:22-0400 Body mass index (BMI) [Ratio] 28.5 kg/m2 Keyla Meneses NP-C Work Phone: [facility] 03-01-2025 13:22-0400 Body weight 75.29 kg Keyla Meneses HEALTH CARE ANALYST-C Work Phone: [facility] 03-01-2025 13:22-0400 Diastolic blood pressure 70 mm[Hg] Keyla Meneses NP-C Work Phone: [facility] 03-01-2025 13:22-0400 Systolic blood pressure 111 mm[Hg] Keyla Meneses HEALTH CARE ANALYST-C Work Phone: [facility] 01-18-2025 08:47-0400 Body height 162.56 cm Keyla Gideon HEALTH CARE ANALYST-C Work Phone: [facility] 01-18-2025 08:47-0400 Body mass index (BMI) [Ratio] 27.8 kg/m2 Keyla Meneses HEALTH CARE ANALYST-C Work Phone: [facility] 01-18-2025 08:47-0400 Body weight 73.53 kg Keyla Meneses HEALTH CARE ANALYST-C Work Phone: [facility] 01-18-2025 08:47-0400 Diastolic blood pressure 79 mm[Hg] Keyla Meneses HEALTH CARE ANALYST-C Work Phone: [facility] 01-18-2025 08:47-0400 Systolic blood pressure 122 mm[Hg] Keyla Meneses HEALTH CARE ANALYST-C Work Phone: [facility] 01-02-2025 08:40-0400 Body mass index (BMI) [Ratio] 27.8 kg/m2 Keyla Meneses HEALTH CARE ANALYST-C Work Phone: [facility] 01-02-2025 08:40-0400 Body weight 73.48 kg Keyla Meneses HEALTH CARE ANALYST-C Work Phone: [facility] 12-25-2024 13:58-0400 Body height 162.6 cm Anna Fuentes MD Work Phone: [facility] 12-25-2024 13:58-0400 Body mass index (BMI) [Ratio] 27 kg/m2 Anna Fuentes MD Work Phone: [facility] 12-25-2024 13:58-0400 Body weight 71.35 kg Anna Fuentes MD Work Phone: [facility] 12-25-2024 13:58-0400 Diastolic blood pressure 74 mm[Hg] Anna Fuentes MD Work Phone: [facility] 12-25-2024 13:58-0400 Heart rate 78 /min Anna Fuentes MD Work Phone: [facility] 12-25-2024 13:58-0400 Respiratory rate 16 /min Anna Fuentes MD Work Phone: [facility] 12-25-2024 13:58-0400 SaO2% (BldA) [Mass fraction] 100 % Anna Fuentes MD Work Phone: [facility] 12-25-2024 13:58-0400 Systolic blood pressure 115 mm[Hg] Anna Fuentes MD Work Phone: [facility] 11-09-2024 13:09-0500 Body height 162.6 cm Antonio Jessica PA-C Work Phone: [facility] 11-09-2024 13:09-0500 Body mass index (BMI) [Ratio] 27.46 kg/m2 Antonio Jessica PA-C Work Phone: [facility] 11-09-2024 13:09-0500 Body temperature 97.81 [degF] Antonio Jessica PA-C Work Phone: [facility] 11-09-2024 13:09-0500 Body weight 72.58 kg Antonio Jessica PA-C Work Phone: [facility] 11-09-2024 13:09-0500 Diastolic blood pressure 84 mm[Hg] Antonio Jessica PA-C Work Phone: [facility] 11-09-2024 13:09-0500 Heart rate 98 /min Antonio Jessica PA-C Work Phone: [facility] 11-09-2024 13:09-0500 Respiratory rate 16 /min Antonio Jessica PA-C Work Phone: [facility] 11-09-2024 13:09-0500 SaO2% (BldA) [Mass fraction] 97 % Antonio Jessica PA-C Work Phone: [facility] 11-09-2024 13:09-0500 Systolic blood pressure 129 mm[Hg] Antonio Jessica PA-C Work Phone: [facility] 05-18-2024 08:03-0400 Body mass index (BMI) [Ratio] 28.89 kg/m2 Kyela Meneses ASSOCIATE PROFESSOR OF FORESTRY Work Phone: [facility] 05-18-2024 08:03-0400 Body temperature 98.49 [degF] Keyla Meneses ASSOCIATE PROFESSOR OF FORESTRY Work Phone: [facility] 05-18-2024 08:03-0400 Body weight 78.74 kg Keyla Meneses ASSOCIATE PROFESSOR OF FORESTRY Work Phone: [facility] 05-18-2024 08:03-0400 Diastolic blood pressure 81 mm[Hg] Keyla Gideon ASSOCIATE PROFESSOR OF FORESTRY Work Phone: [facility] 05-18-2024 08:03-0400 Heart rate 81 /min Keyla Meneses ASSOCIATE PROFESSOR OF FORESTRY Work Phone: [facility] 05-18-2024 08:03-0400 SaO2% (BldA) [Mass fraction] 98 % Keyla Meneses ASSOCIATE PROFESSOR OF FORESTRY Work Phone: [facility] 05-18-2024 08:03-0400 Systolic blood pressure 116 mm[Hg] Keyla Gideon ASSOCIATE PROFESSOR OF FORESTRY Work Phone: [facility] 04-27-2024 07:47-0400 Body mass index (BMI) [Ratio] 28.44 kg/m2 Keyla Meneses ASSOCIATE PROFESSOR OF FORESTRY Work Phone: [facility] 04-27-2024 07:47-0400 Body temperature 98.4 [degF] Keyla Meneses ASSOCIATE PROFESSOR OF FORESTRY Work Phone: [facility] 04-27-2024 07:47-0400 Body weight 77.52 kg Keyla Meneses ASSOCIATE PROFESSOR OF FORESTRY Work Phone: [facility] 04-27-2024 07:47-0400 Diastolic blood pressure 79 mm[Hg] Keyla Gideon ASSOCIATE PROFESSOR OF FORESTRY Work Phone: [facility] 04-27-2024 07:47-0400 Heart rate 92 /min Keyla Meneses ASSOCIATE PROFESSOR OF FORESTRY Work Phone: [facility] 04-27-2024 07:47-0400 SaO2% (BldA) [Mass fraction] 98 % Keyla Meneses ASSOCIATE PROFESSOR OF FORESTRY Work Phone: [facility] 04-27-2024 07:47-0400 Systolic blood pressure 119 mm[Hg] Keyla Gideon ASSOCIATE PROFESSOR OF FORESTRY Work Phone: [facility] 04-06-2024 08:16-0400 Body mass index (BMI) [Ratio] 28.42 kg/m2 Keyla Meneses ASSOCIATE PROFESSOR OF FORESTRY Work Phone: [facility] 04-06-2024 08:16-0400 Body temperature 98.91 [degF] Keyla Meneses ASSOCIATE PROFESSOR OF FORESTRY Work Phone: [facility] 04-06-2024 08:16-0400 Body weight 77.47 kg Keyla Meneses ASSOCIATE PROFESSOR OF FORESTRY Work Phone: [facility] 04-06-2024 08:16-0400 Diastolic blood pressure 84 mm[Hg] Keyla Gideon ASSOCIATE PROFESSOR OF FORESTRY Work Phone: [facility] 04-06-2024 08:16-0400 Heart rate 97 /min Keyla Meneses ASSOCIATE PROFESSOR OF FORESTRY Work Phone: [facility] 04-06-2024 08:16-0400 SaO2% (BldA) [Mass fraction] 98 % Keyla Meneses ASSOCIATE PROFESSOR OF FORESTRY Work Phone: [facility] 04-06-2024 08:16-0400 Systolic blood pressure 127 mm[Hg] Keyla Meneses ASSOCIATE PROFESSOR OF FORESTRY Work Phone: [facility] 03-06-2024 13:32-0400 Body height 165.1 cm Keyla Meneses ASSOCIATE PROFESSOR OF FORESTRY Work Phone: [facility] 03-06-2024 13:32-0400 Body mass index (BMI) [Ratio] 28.51 kg/m2 Keyla Meneses ASSOCIATE PROFESSOR OF FORESTRY Work Phone: [facility] 03-06-2024 13:32-0400 Body temperature 98.4 [degF] Keyla Meneses ASSOCIATE PROFESSOR OF FORESTRY Work Phone: [facility] 03-06-2024 13:32-0400 Body weight 77.7 kg Keyla Gideon ASSOCIATE PROFESSOR OF FORESTRY Work Phone: [facility] 03-06-2024 13:32-0400 Diastolic blood pressure 87 mm[Hg] Keyla Meneses ASSOCIATE PROFESSOR OF FORESTRY Work Phone: [facility] 03-06-2024 13:32-0400 Heart rate 96 /min Keyla Meneses ASSOCIATE PROFESSOR OF FORESTRY Work Phone: [facility] 03-06-2024 13:32-0400 SaO2% (BldA) [Mass fraction] 97 % Keyla Meneses ASSOCIATE PROFESSOR OF FORESTRY Work Phone: [facility] 03-06-2024 13:32-0400 Systolic blood pressure 138 mm[Hg] Keyla Meneses ASSOCIATE PROFESSOR OF FORESTRY Work Phone: [facility] 12-17-2023 09:01-0400 Body height 162.6 cm Amy Stackner PA Work Phone: [facility] 12-17-2023 09:01-0400 Body mass index (BMI) [Ratio] 29.52 kg/m2 Amy Chi PA Work Phone: [facility] 12-17-2023 09:01-0400 Body temperature 98.2 [degF] Amy Chi PA Work Phone: [facility] 12-17-2023 09:01-0400 Body weight 78.02 kg Amy Chi PA Work Phone: [facility] 12-17-2023 09:01-0400 Diastolic blood pressure 83 mm[Hg] Amy Chi PA Work Phone: [facility] 12-17-2023 09:01-0400 Heart rate 92 /min May Chi PA Work Phone: [facility] 12-17-2023 09:01-0400 Respiratory rate 18 /min Amy Chi PA Work Phone: [facility] 12-17-2023 09:01-0400 SaO2% (BldA) [Mass fraction] 99 % Amy Chi PA Work Phone: [facility] 12-17-2023 09:01-0400 Systolic blood pressure 151 mm[Hg] Amy Chi PA Work Phone: [facility] 12-07-2023 16:32-0400 Body height 162.6 cm Amy Chi PA Work Phone: [facility] 12-07-2023 16:32-0400 Body mass index (BMI) [Ratio] 29.52 kg/m2 Amy Chi PA Work Phone: [facility] 12-07-2023 16:32-0400 Body temperature 98.29 [degF] Amy Chi PA Work Phone: [facility] 12-07-2023 16:32-0400 Body weight 78.02 kg Amy Chi PA Work Phone: [facility] 12-07-2023 16:32-0400 Diastolic blood pressure 81 mm[Hg] Amy Chi PA Work Phone: [facility] 12-07-2023 16:32-0400 Heart rate 106 /min Amy Cih PA Work Phone: [facility] 12-07-2023 16:32-0400 Respiratory rate 18 /min Amy Chi PA Work Phone: [facility] 12-07-2023 16:32-0400 SaO2% (BldA) [Mass fraction] 100 % Amy Chi PA Work Phone: [facility] 12-07-2023 16:32-0400 Systolic blood pressure 126 mm[Hg] Amy Chi PA Work Phone: [facility] 10-26-2023 15:37-0500 Body height 162.6 cm Lemuel Lee MD Work Phone: [facility] 10-26-2023 15:37-0500 Body mass index (BMI) [Ratio] 30.55 kg/m2 Lemuel Lee MD Work Phone: [facility] 10-26-2023 15:37-0500 Body weight 80.74 kg Lemuel Lee MD Work Phone: [facility] 10-26-2023 15:37-0500 Diastolic blood pressure 68 mm[Hg] Lemuel Lee MD Work Phone: [facility] 10-26-2023 15:37-0500 Systolic blood pressure 112 mm[Hg] Lemuel Lee MD Work Phone: [facility] 09-29-2023 16:27-0500 Body height 162.6 cm Jelena Gomezley BENEFITS REPRESENTATIVE-ASSOCIATE PROFESSOR OF FORESTRY Work Phone: [facility] 09-29-2023 16:27-0500 Body mass index (BMI) [Ratio] 29.7 kg/m2 Jelena Jessica BENEFITS REPRESENTATIVE-ASSOCIATE PROFESSOR OF FORESTRY Work Phone: [facility] 09-29-2023 16:27-0500 Body temperature 97.39 [degF] Jelena Jessica BENEFITS REPRESENTATIVE-ASSOCIATE PROFESSOR OF FORESTRY Work Phone: [facility] 09-29-2023 16:27-0500 Body weight 78.47 kg Jelena Jessica BENEFITS REPRESENTATIVE-ASSOCIATE PROFESSOR OF FORESTRY Work Phone: [facility] 09-29-2023 16:27-0500 Diastolic blood pressure 80 mm[Hg] Jelena Jessica BENEFITS REPRESENTATIVE-ASSOCIATE PROFESSOR OF FORESTRY Work Phone: [facility] 09-29-2023 16:27-0500 Heart rate 89 /min Jelena Jessica BENEFITS REPRESENTATIVE-ASSOCIATE PROFESSOR OF FORESTRY Work Phone: [facility] 09-29-2023 16:27-0500 Respiratory rate 16 /min Jelena Jessica BENEFITS REPRESENTATIVE-ASSOCIATE PROFESSOR OF FORESTRY Work Phone: [facility] 09-29-2023 16:27-0500 SaO2% (BldA) [Mass fraction] 98 % Jelenaanalilia Walter BENEFITS REPRESENTATIVE-ASSOCIATE PROFESSOR OF FORESTRY Work Phone: [facility] 09-29-2023 16:27-0500 Systolic blood pressure 127 mm[Hg] Jelena Walter BENEFITS REPRESENTATIVE-ASSOCIATE PROFESSOR OF FORESTRY Work Phone: [facility] 09-01-2023 08:27-0500 Body mass index (BMI) [Ratio] 29.72 kg/m2 Татьяна Brooke ASSOCIATE PROFESSOR OF FORESTRY Work Phone: [facility] 09-01-2023 08:27-0500 Body temperature 98.01 [degF] Татьяна Brooke ASSOCIATE PROFESSOR OF FORESTRY Work Phone: [facility] 09-01-2023 08:27-0500 Body weight 81.01 kg Татьяна Brooke ASSOCIATE PROFESSOR OF FORESTRY Work Phone: [facility] 09-01-2023 08:27-0500 Diastolic blood pressure 86 mm[Hg] Татьяна Brooke ASSOCIATE PROFESSOR OF FORESTRY Work Phone: [facility] 09-01-2023 08:27-0500 Heart rate 86 /min Татьяна Brooke ASSOCIATE PROFESSOR OF FORESTRY Work Phone: [facility] 09-01-2023 08:27-0500 Respiratory rate 16 /min Татьяна Brooke ASSOCIATE PROFESSOR OF FORESTRY Work Phone: [facility] 09-01-2023 08:27-0500 SaO2% (BldA) [Mass fraction] 100 % Татьяна Brooke ASSOCIATE PROFESSOR OF FORESTRY Work Phone: [facility] 09-01-2023 08:27-0500 Systolic blood pressure 100 mm[Hg] Татьяна Brooke ASSOCIATE PROFESSOR OF FORESTRY Work Phone: [facility] 07-21-2023 15:24-0500 Body height 165.1 cm Татьяна Brooke ASSOCIATE PROFESSOR OF FORESTRY Work Phone: [facility] 07-21-2023 15:24-0500 Body mass index (BMI) [Ratio] 30.87 kg/m2 Татьяна Brooke ASSOCIATE PROFESSOR OF FORESTRY Work Phone: [facility] 07-21-2023 15:24-0500 Body temperature 98.2 [degF] Татьяна Brooke ASSOCIATE PROFESSOR OF FORESTRY Work Phone: [facility] 07-21-2023 15:24-0500 Body weight 84.14 kg Татьяна Brooke ASSOCIATE PROFESSOR OF FORESTRY Work Phone: [facility] 07-21-2023 15:24-0500 Diastolic blood pressure 82 mm[Hg] Татьяна Brooke ASSOCIATE PROFESSOR OF FORESTRY Work Phone: [facility] 07-21-2023 15:24-0500 Heart rate 107 /min Татьянаgatito Brooke ASSOCIATE PROFESSOR OF FORESTRY Work Phone: [facility] 07-21-2023 15:24-0500 Respiratory rate 16 /min Татьянаgatito Brooke ASSOCIATE PROFESSOR OF FORESTRY Work Phone: [facility] 07-21-2023 15:24-0500 SaO2% (BldA) [Mass fraction] 97 % Татьяна Brooke ASSOCIATE PROFESSOR OF FORESTRY Work Phone: [facility] 07-21-2023 15:24-0500 Systolic blood pressure 112 mm[Hg] Татьянаgatito Brooke ASSOCIATE PROFESSOR OF FORESTRY Work Phone: [facility] 01-07-2023 11:04-0400 Body height 162.5 cm Anand Cooley Other Phone: [facility] 01-07-2023 11:04-0400 Body temperature 98.96 [degF] Anand Cooley Other Phone: [facility] 01-07-2023 11:04-0400 Diastolic blood pressure 87 mm[Hg] Anand Cooley Other Phone: [facility] 01-07-2023 11:04-0400 Heart rate 122 /min Anand Cooley Other Phone: [facility] 01-07-2023 11:04-0400 Respiratory rate 16 /min Anand Cooley Other Phone: [facility] 01-07-2023 11:04-0400 SaO2% (BldA) [Mass fraction] 98 % Anand Cooley Other Phone: [facility] 01-07-2023 11:04-0400 Systolic blood pressure 144 mm[Hg] Anand Cooley Other Phone: [facility] 01-05-2023 10:10-0400 Body height 162.6 cm Amy PALMER Work Phone: [facility] 04-25-2023 10:10-0400 Body mass index (BMI) [Ratio] 29.18 kg/m2 Amy Stackner PA Work Phone: [facility] 01-05-2023 10:10-0400 Body temperature 98.6 [degF] Amy Stackner PA Work Phone: [facility] 01-05-2023 10:10-0400 Body weight 77.11 kg Amy Stackner PA Work Phone: [facility] 01-05-2023 10:10-0400 Diastolic blood pressure 74 mm[Hg] Amy Stackner PA Work Phone: [facility] 01-05-2023 10:10-0400 Heart rate 96 /min Amy Stackner PA Work Phone: [facility] 01-05-2023 10:10-0400 Respiratory rate 18 /min Amy Stackner PA Work Phone: [facility] 01-05-2023 10:10-0400 SaO2% (BldA) [Mass fraction] 99 % Amy Stackner PA Work Phone: [facility] 01-05-2023 10:10-0400 Systolic blood pressure 131 mm[Hg] Amy Stackner PA Work Phone: [facility] 10-20-2022 15:13-0500 Body height 162.6 cm Lemuel Lee MD Work Phone: [facility] 10-20-2022 15:13-0500 Body mass index (BMI) [Ratio] 30.04 kg/m2 Lemuel Lee MD Work Phone: [facility] [facility] 10-20-2022 15:13-0500 Body weight 79.38 kg Lemuel Lee MD Work Phone: [facility] 10-20-2022 15:13-0500 Diastolic blood pressure 74 mm[Hg] Lemuel Lee MD Work Phone: [facility] 02-07-2023 15:13-0500 Systolic blood pressure 110 mm[Hg] Lemuel Lee MD Work Phone: [facility] 08-13-2022 16:20-0500 Body temperature 97.59 [degF] Lemuel Lee MD Work Phone: [facility] 08-13-2022 16:20-0500 Diastolic blood pressure 74 mm[Hg] Lemuel Lee MD Work Phone: [facility] 08-13-2022 16:20-0500 Heart rate 84 /min Lemuel Lee MD Work Phone: [facility] 08-13-2022 16:20-0500 Respiratory rate 18 /min Lemuel Lee MD Work Phone: [employer] 08-13-2022 16:20-0500 SaO2% (BldA) [Mass fraction] 98 % Lemuel Lee MD Work Phone: [facility] 08-13-2022 16:20-0500 Systolic blood pressure 131 mm[Hg] Lemuel Lee MD Work Phone: [facility] 08-11-2022 04:06-0500 Body height 162.6 cm Lemuel Lee MD Work Phone: [facility] 08-11-2022 04:06-0500 Body mass index (BMI) [Ratio] 33.15 kg/m2 Lemuel Lee MD Work Phone: [facility] 08-11-2022 04:06-0500 Body weight 87.6 kg Lemuel Lee MD Work Phone: [facility] 08-05-2022 07:26-0500 Body height 162.6 cm Lemuel Lee MD Work Phone: [facility] 08-05-2022 07:26-0500 Body mass index (BMI) [Ratio] 33.13 kg/m2 Lemuel Lee MD Work Phone: [facility] 08-05-2022 07:26-0500 Body weight 87.54 kg Lemuel Lee MD Work Phone: [facility] 08-05-2022 07:26-0500 Diastolic blood pressure 72 mm[Hg] Lemuel Lee MD Work Phone: [facility] 08-05-2022 07:26-0500 Systolic blood pressure 124 mm[Hg] Lemuel Lee MD Work Phone: [facility] 07-30-2022 15:04-0500 Body height 162.6 cm Lemuel Lee MD Work Phone: [facility] 07-30-2022 15:04-0500 Body mass index (BMI) [Ratio] 32.79 kg/m2 Lemuel Lee MD Work Phone: [facility] 07-30-2022 15:04-0500 Body weight 86.64 kg Lemuel Lee MD Work Phone: [facility] 07-30-2022 15:04-0500 Diastolic blood pressure 74 mm[Hg] Lemuel Lee MD Work Phone: [facility] 07-30-2022 15:04-0500 Systolic blood pressure 134 mm[Hg] Lemuel Lee MD Work Phone: [facility] 07-23-2022 08:56-0500 Body height 162.6 cm Lemuel Lee MD Work Phone: [facility] 07-23-2022 08:56-0500 Body mass index (BMI) [Ratio] 32.61 kg/m2 Lemuel Lee MD Work Phone: [facility] 07-23-2022 08:56-0500 Body weight 86.18 kg Lemuel Lee MD Work Phone: [facility] 07-23-2022 08:56-0500 Diastolic blood pressure 82 mm[Hg] Lemuel Lee MD Work Phone: [facility] 07-23-2022 08:56-0500 Systolic blood pressure 120 mm[Hg] Lemuel Lee MD Work Phone: [facility] 07-21-2022 07:24-0500 Body height 162.6 cm Татьяна Brooke ASSOCIATE PROFESSOR OF FORESTRY Work Phone: [facility] 07-21-2022 07:24-0500 Body mass index (BMI) [Ratio] 32.56 kg/m2 Татьяна Brooke ASSOCIATE PROFESSOR OF FORESTRY Work Phone: [facility] 07-21-2022 07:24-0500 Body temperature 98.2 [degF] Татьяна Brooke ASSOCIATE PROFESSOR OF FORESTRY Work Phone: [facility] 07-21-2022 07:24-0500 Body weight 86.05 kg Татьяна Brooke ASSOCIATE PROFESSOR OF FORESTRY Work Phone: [facility] 07-21-2022 07:24-0500 Diastolic blood pressure 84 mm[Hg] Татьяна Brooke ASSOCIATE PROFESSOR OF FORESTRY Work Phone: [facility] 07-21-2022 07:24-0500 Heart rate 80 /min Татьяна Brooke ASSOCIATE PROFESSOR OF FORESTRY Work Phone: [facility] 07-21-2022 07:24-0500 Respiratory rate 16 /min Татьяна Brooke ASSOCIATE PROFESSOR OF FORESTRY Work Phone: [facility] 07-21-2022 07:24-0500 Systolic blood pressure 120 mm[Hg] Татьяна Brooke ASSOCIATE PROFESSOR OF FORESTRY Work Phone: [facility] 07-17-2022 11:14-0400 Body height 162.6 cm Lauren Perez APRN-ASSOCIATE PROFESSOR OF FORESTRY Work Phone: [facility] 07-17-2022 11:14-0400 Body mass index (BMI) [Ratio] 31.76 kg/m2 Lauren Perez APRN-ASSOCIATE PROFESSOR OF FORESTRY Work Phone: [facility] 07-17-2022 11:14-0400 Body weight 83.92 kg Lauren Perez APRN-ASSOCIATE PROFESSOR OF FORESTRY Work Phone: [facility] 07-17-2022 11:14-0400 Diastolic blood pressure 78 mm[Hg] Lauren Perez APRN-ASSOCIATE PROFESSOR OF FORESTRY Work Phone: [facility] 07-17-2022 11:14-0400 Systolic blood pressure 116 mm[Hg] Lauren Perez BIJAL-ASSOCIATE PROFESSOR OF FORESTRY Work Phone: [facility] 07-13-2022 12:49-0400 Body mass index (BMI) [Ratio] 32.54 kg/m2 Josse Walter MD Work Phone: [facility] 07-13-2022 12:49-0400 Body weight 86 kg Josse Walter MD Work Phone: [facility] 07-13-2022 12:49-0400 Diastolic blood pressure 80 mm[Hg] Josse Walter MD Work Phone: [facility] 07-13-2022 12:49-0400 Systolic blood pressure 120 mm[Hg] Josse Walter MD Work Phone: [facility] 07-09-2022 08:41-0400 Body height 162.6 cm Lemuel Lee MD Work Phone: [facility] 07-09-2022 08:41-0400 Body mass index (BMI) [Ratio] 32.27 kg/m2 Lemuel Lee MD Work Phone: [facility] 07-09-2022 08:41-0400 Body weight 85.28 kg Lemuel Lee MD Work Phone: [facility] [facility] 07-09-2022 08:41-0400 Diastolic blood pressure 62 mm[Hg] Lemuel Lee MD Work Phone: [facility] 07-09-2022 08:41-0400 Systolic blood pressure 118 mm[Hg] Lemuel Lee MD [facility] 06-29-2022 09:11-0400 Body height 162.6 cm Leumel Lee MD Work Phone: [facility] 06-29-2022 09:11-0400 Body mass index (BMI) [Ratio] 31.93 kg/m2 Lemuel Lee MD Work Phone: [facility] 06-29-2022 09:11-0400 Body weight 84.37 kg Lemuel Lee MD Work Phone: [facility] 06-29-2022 09:11-0400 Diastolic blood pressure 78 mm[Hg] Lemuel Lee MD Work Phone: [facility] 06-29-2022 09:11-0400 Systolic blood pressure 120 mm[Hg] Lemuel Lee MD Work Phone: [facility] 06-25-2022 09:08-0400 Body height 162.6 cm Lemuel Lee MD Work Phone: [facility] 06-25-2022 09:08-0400 Body mass index (BMI) [Ratio] 31.58 kg/m2 Lemuel Lee MD Work Phone: [phone] [place] [address] 06-25-2022 09:08-0400 Body weight 83.46 kg Lemuel Lee MD Work Phone: 3(730)[phone] [place] [address] 06-25-2022 09:08-0400 Diastolic blood pressure 78 mm[Hg] Lemuel Lee MD Work Phone: [phone](345)[phone] [place] [address] 06-25-2022 09:08-0400 Systolic blood pressure 108 mm[Hg] Lemuel Lee MD Work Phone: [facility] 06-18-2022 10:06-0400 Body height 162.6 cm Lemuel Lee MD Work Phone: [facility] 06-18-2022 10:06-0400 Body mass index (BMI) [Ratio] 31.93 kg/m2 Lemuel Lee MD Work Phone: [facility] 06-18-2022 10:06-0400 Body weight 84.37 kg Lemuel Lee MD Work Phone: [facility] 06-18-2022 10:06-0400 Diastolic blood pressure 78 mm[Hg] Lemuel Lee MD Work Phone: [facility] 06-18-2022 10:06-0400 Systolic blood pressure 102 mm[Hg] Lemuel Lee MD Work Phone: [facility] 06-17-2022 14:32-0400 Diastolic blood pressure 76 mm[Hg] Татьяна Villegas RN [facility] 06-17-2022 14:32-0400 Heart rate 83 /min Татьяна Villegas RN [facility] 06-17-2022 14:32-0400 Respiratory rate 18 /min Татьяна Villegas RN [facility] 06-17-2022 14:32-0400 Systolic blood pressure 120 mm[Hg] Татьяна Villegas RN [facility] 05-22-2022 14:22-0400 Body mass index (BMI) [Ratio] 32.1 kg/m2 Josse Walter MD Work Phone: [facility] 05-22-2022 14:22-0400 Body weight 84.82 kg Josse Walter MD Work Phone: [facility] 05-22-2022 14:22-0400 Diastolic blood pressure 80 mm[Hg] Josse Walter MD Work Phone: [facility] 05-22-2022 14:22-0400 Systolic blood pressure 130 mm[Hg] Josse Walter MD Work Phone: [facility] 04-30-2022 10:12-0400 Body height 162.6 cm Lauren Perez BENEFITS REPRESENTATIVE-ASSOCIATE PROFESSOR OF FORESTRY Work Phone: [facility] 04-30-2022 10:12-0400 Body mass index (BMI) [Ratio] 30.55 kg/m2 Lauren Perez BENEFITS REPRESENTATIVE-ASSOCIATE PROFESSOR OF FORESTRY Work Phone: [facility] 04-30-2022 10:12-0400 Body weight 80.74 kg Lauren Perez BENEFITS REPRESENTATIVE-ASSOCIATE PROFESSOR OF FORESTRY Work Phone: [facility] 04-30-2022 10:12-0400 Diastolic blood pressure 62 mm[Hg] Lauren Perez BENEFITS REPRESENTATIVE-ASSOCIATE PROFESSOR OF FORESTRY Work Phone: [facility] 04-30-2022 10:12-0400 Systolic blood pressure 106 mm[Hg] Lauren Perez BENEFITS REPRESENTATIVE-ASSOCIATE PROFESSOR OF FORESTRY Work Phone: [facility] 04-09-2022 10:04-0400 Body mass index (BMI) [Ratio] 29.87 kg/m2 Josse Walter MD Work Phone: [facility] 04-09-2022 10:04-0400 Body weight 78.93 kg Josse Walter MD Work Phone: [facility] 04-09-2022 10:04-0400 Diastolic blood pressure 60 mm[Hg] Josse Walter MD Work Phone: [facility] 04-09-2022 10:04-0400 Systolic blood pressure 140 mm[Hg] Josse Walter MD Work Phone: [facility] 03-12-2022 15:07-0400 Body height 162.6 cm Lemuel Lee MD Work Phone: [facility] 03-12-2022 15:07-0400 Body mass index (BMI) [Ratio] 28.67 kg/m2 Lemuel Lee MD Work Phone: [facility] 03-12-2022 15:07-0400 Body weight 75.75 kg Lemuel Lee MD Work Phone: [facility] 03-12-2022 15:07-0400 Diastolic blood pressure 72 mm[Hg] Lemuel Lee MD Work Phone: [facility] 03-12-2022 15:07-0400 Systolic blood pressure 110 mm[Hg] Lemuel Lee MD Work Phone: [facility] 02-02-2022 14:47-0400 Body mass index (BMI) [Ratio] 27.67 kg/m2 Josse Walter MD Work Phone: [facility] 02-02-2022 14:47-0400 Body weight 73.12 kg Josse Walter MD Work Phone: [facility] 02-02-2022 14:47-0400 Diastolic blood pressure 80 mm[Hg] Josse Walter MD Work Phone: [facility] 02-02-2022 14:47-0400 Systolic blood pressure 110 mm[Hg] Josse Walter MD Work Phone: [facility] 01-09-2022 13:38-0400 Body height 162.6 cm Avg Chioma Gal [id number] [facility] 01-09-2022 13:38-0400 Body mass index (BMI) [Ratio] 27.46 kg/m2 Avg Chioma Gal [id number] [facility] 01-09-2022 13:38-0400 Body weight 72.58 kg Avg Chioma Gal [id number] [facility] 01-09-2022 13:38-0400 Diastolic blood pressure 78 mm[Hg] Avg Chioma Gal [id number] [facility] 01-09-2022 13:38-0400 Systolic blood pressure 120 mm[Hg] Avg Chioma Gal [id number] [facility] 12-17-2021 08:00-0400 Body height 162.6 cm Lemuel Lee MD Work Phone: [facility] 12-17-2021 08:00-0400 Body mass index (BMI) [Ratio] 26.95 kg/m2 Lemuel Lee MD Work Phone: [facility] 12-17-2021 08:00-0400 Body weight 71.22 kg Lemuel Lee MD Work Phone: [facility] 12-17-2021 08:00-0400 Diastolic blood pressure 68 mm[Hg] Lemuel Lee MD Work Phone: [facility] 12-17-2021 08:00-0400 Systolic blood pressure 122 mm[Hg] Lemuel Lee MD Work Phone: [facility] 11-24-2021 07:07-0400 Body height 162.6 cm Lemuel Lee MD Work Phone: [facility] 11-24-2021 07:07-0400 Body mass index (BMI) [Ratio] 26.43 kg/m2 Lemuel Lee MD Work Phone: [facility] 11-24-2021 07:07-0400 Body weight 69.85 kg Lemuel Lee MD Work Phone: [facility] 11-24-2021 07:07-0400 Diastolic blood pressure 68 mm[Hg] Lemuel Lee MD Work Phone: [facility] 11-24-2021 07:07-0400 Systolic blood pressure 118 mm[Hg] Lemuel Lee MD Work Phone: [facility] 01-30-2020 08:02-0400 BMI (Body Mass Index) 29.32 kg/m2 [facility] 01-30-2020 08:02-0400 Body Temperature 98.49 [degF] [facility] 01-30-2020 08:02-0400 Body weight 77.47 kg [facility] 01-30-2020 08:02-0400 BP Diastolic 70 mm[Hg] [facility] 01-30-2020 08:02-0400 BP Systolic 120 mm[Hg] [facility] 01-30-2020 08:02-0400 Height 162.6 cm [facility] 01-30-2020 08:02-0400 Pulse (Heart Rate) 88 /min [facility] 01-30-2020 08:02-0400 Respiratory Rate 14 /min [facility] 10-12-2019 16:36-0500 BMI (Body Mass Index) 30.93 kg/m2 [facility] 10-12-2019 16:36-0500 Body Temperature 98.4 [degF] [facility] 10-12-2019 16:36-0500 Body weight 81.74 kg [facility] 10-12-2019 16:36-0500 BP Diastolic 80 mm[Hg] [facility] 10-12-2019 16:36-0500 BP Systolic 110 mm[Hg] [facility] 10-12-2019 16:36-0500 Height 162.6 cm [facility] 10-12-2019 16:36-0500 Pulse (Heart Rate) 92 /min [facility] 10-12-2019 16:36-0500 Respiratory Rate 16 /min [facility] 09-25-2019 17:06-0500 BMI (Body Mass Index) 31.58 kg/m2 [facility] 09-25-2019 17:06-0500 Body Temperature 98.4 [degF] [facility] 09-25-2019 17:06-0500 Body weight 83.46 kg [facility] 09-25-2019 17:06-0500 BP Diastolic 80 mm[Hg] [facility] 09-25-2019 17:06-0500 BP Systolic 130 mm[Hg] [facility] 09-25-2019 17:06-0500 Height 162.6 cm [facility] 09-25-2019 17:06-0500 Pulse (Heart Rate) 82 /min [facility] 09-25-2019 17:06-0500 Respiratory Rate 16 /min [facility] 01-21-2018 12:52-0400 Body Temperature 98.1 [degF] Anand [facility] 01-21-2018 12:52-0400 BP Diastolic 70 mm[Hg] Anand [facility] 01-21-2018 12:52-0400 BP Systolic 118 mm[Hg] Anand [facility] 01-21-2018 12:52-0400 Pulse (Heart Rate) 70 /min Anand [facility] 01-21-2018 12:52-0400 Respiratory Rate 16 /min Anand [facility] 01-21-2018 12:52-0400 Weight 78.29 kg [facility] Encounters Encounter Date Encounter Type Care Provider Facility Start: 08-10-2025 ambulatory Keyla Meneses Facilit y:[facility] Start: 07-27-2025 ambulatory Keyla Meneses Facilit y:[facility] Start: 07-24-2025 End: 07-24-2025 ambulatory Keyla Meneses Facility:[facility] Start: 07-20-2025 End: 07-20-2025 ambulatory Emmanuelle Contreras Facility:[facility] Start: 07-17-2025 End: 07-17-2025 ambulatory Emmanuelle Contreras Facility:[facility] Start: 07-16-2025 ambulatory KEYLA MENESES [facility] Start: 07-13-2025 End: 07-13-2025 ambulatory Keyla Meneses Facility:[facility] Start: 07-13-2025 ambulatory Keyla Meneses Facilit y:[facility] Start: 07-10-2025 End: 07-10-2025 ambulatory Emma Bianca Facility:[facility] Start: 07-05-2025 End: 07-05-2025 Orders Only Keyla Meneses ASSOCIATE PROFESSOR OF FORESTRY Work Phone: [facility] Comment on above: Anxiety and depressi on (Primary Dx) Start: 06-26-2025 End: 06-30-2025 ambulatory KEYLA MENESES [facility] Start: 06-25-2025 End: 06-25-2025 Patient encounter procedure Nel HANSEN -[facility] Work Phone: Start: 06-25-2025 End: 06-25-2025 ambulatory Keyla Meneses HEALTH CARE ANALYST-C Work Phone: [facility] Start: 06-13-2025 End: 06-13-[address] Emmanuelle Contreras DO -[facility] Work Phone: Start: 06-13-2025 End: 06-13-2025 ambulatory Keyla Meneses HEALTH CARE ANALYST-C Work Phone: -[facility] Start: 06-12-2025 End: 06-13-2025 ambulatory ROSHNI DAVIDSON [facility] Start: 05-22-2025 End: 05-22-2025 Patient encounter procedure Emma Bianca HEALTH CARE ANALYST-C -[facility] Work Phone: Start: 05-22-2025 End: 05-22-2025 ambulatory Keyla Meneses HEALTH CARE ANALYST-C Work Phone: -[facility] Start: 04-27-2025 End: 04-27-2025 Patient encounter procedure Nel HANSEN -[facility] Work Phone: Start: 04-27-2025 End: 04-27-2025 ambulatory Keyla Era Meneses HEALTH CARE ANALYST-C Work Phone: -[facility] Start: 04-10-2025 End: 04-10-2025 ambulatory EMMANUELLE HERNÁNDEZ [facility] Start: 03-30-2025 End: 03-30-[address] Ayala Thompson MD -[facility] Work Phone: Start: 03-30-2025 End: 03-30-2025 ambulatory Keyla Era Gideon HEALTH CARE ANALYST-C Work Phone: -[facility] Start: 03-26-2025 End: 03-26-2025 Office outpatient visit 15 minutes Upsol Fuentes MD Work Phone: [facility] Comment on above: Unspecified mood (af fective) disorder (HCC) (Primary Dx) Start: 03-26-2025 End: 03-26-2025 ambulatory KEYLA KEOLIZ GIDEON [facility] Start: 03-05-2025 ambulatory KEYLA LONNAE GIDEON [facility] Ambulatory Start: 03-01-2025 End: 03-01-[address] Emmanuelle Contreras DO -[facility] Work Phone: Start: 03-01-2025 End: 03-01-2025 ambulatory Keyla Meneses HEALTH CARE ANALYST-C Work Phone: [facility] Work Phone: Start: 03-01-2025 End: 03-01-2025 ambulatory Keyla L Gideon Facility:[facility] Start: 01-22-2025 ambulatory KEYLA HERBIE GIDEON [facility] Start: 01-18-2025 End: 01-18-2025 ambulatory Keylasusan Meneses HEALTH CARE ANALYST-C Work Phone: [facility] Work Phone: Start: 01-18-2025 End: 01-18-2025 Patient encounter procedure Nel HANSENM -Laboratory, Specimen Work Phone: Start: 01-18-2025 End: 01-18-2025 Patient encounter procedure Nel Speedy HANSENM -[facility] Work Phone: Start: 01-18-2025 End: 01-18-2025 ambulatory Keyla Meneses Facility:[facility] Start: 01-18-2025 End: 01-18-2025 ambulatory Keyla Meneses Facility:[facility] Start: 01-02-2025 End: 01-02-2025 ambulatory Keyla Meneses Facility:[facility] Start: 01-02-2025 End: 01-02-2025 Patient encounter procedure Emma Valenzuela HEALTH CARE ANALYST-C -[facility] Work Phone: Start: 12-25-2024 End: 12-25-2024 Office outpatient visit 25 minutes Anna Fuentes MD Work Phone: [facility] Comment on above: Unspecified mood (af fective) disorder (HCC) (Primary Dx); as incidental finding Start: 12-25-2024 End: 12-25-[address] [facility] Start: 11-09-2024 End: 11-09-2024 Patient encounter procedure Antonio Lopez PA-C Work Phone: [facility] Comment on above: Acute rhinosinusitis (Primary Dx) Start: 11-09-2024 End: 11-09-2024 ambulatory ANAND EDMOND [facility] Start: 10-02-2024 End: 10-02-2024 Refill Anna Fuentes MD Work Phone: [facility] Start: 07-27-2024 End: 07-27-2024 Refill Anna Fuentes MD Work Phone: [facility] Start: 06-15-2024 End: 06-19-2024 ambulatory KEYLA MEYER [facility] Start: 05-19-2024 End: 05-19-2024 Documentation procedure Sussy Degroot MA [facility] Comment on above: Care coordination BH P Start: 05-18-2024 End: 05-18-2024 Office outpatient visit 15 minutes Keyla Meneses ASSOCIATE PROFESSOR OF FORESTRY Work Phone: [facility] Comment on above: Anxiety and depressi on (Primary Dx) Start: 05-05-2024 End: 05-05-2024 Documentation procedure Sussy Degroot MA [facility] Comment on above: Care coordination P Start: 04-28-2024 End: 04-28-2024 Documentation procedure Sussy Degroot MA [facility] Comment on above: Care coordination P Start: 04-27-2024 End: 04-27-2024 Office outpatient visit 15 minutes Keyla Meneses ASSOCIATE PROFESSOR OF FORESTRY Work Phone: [facility] Comment on above: Anxiety and depressi on (Primary Dx) Start: 04-25-2024 End: 04-29-2024 ambulatory KEYLA MENESES [facility] Start: 04-06-2024 End: 04-06-2024 Office outpatient visit 15 minutes Keyla Meneses ASSOCIATE PROFESSOR OF FORESTRY Work Phone: [facility] Comment on above: Anxiety (Primary Dx) ; Chronic fatigue Start: 03-06-2024 End: 03-06-2024 Office outpatient visit 15 minutes Keyla Meneses ASSOCIATE PROFESSOR OF FORESTRY Work Phone: [facility] Comment on above: Anxiety (Primary Dx) Start: 12-17-2023 End: 12-17-2023 Office outpatient visit 15 minutes Amy PALMER Work Phone: [facility] Comment on above: Acute non-recurrent frontal sinusitis (Primary Dx) Start: 12-13-2023 ambulatory [facility] Start: 12-07-2023 ambulatory AMY [facility] Start: 12-07-2023 End: 12-07-2023 Office outpatient visit 15 minutes Татьяна Brooke ASSOCIATE PROFESSOR OF FORESTRY Work Phone: [facility] Comment on above: Sore throat (Primary Dx) Start: 10-26-2023 ambulatory ANAND COOLEY [facility] Start: 10-26-2023 Encounter for gynecological examination (general) (routine) without abnormal findings LEMUEL LEE [facility] Start: 10-26-2023 End: 10-26-2023 Patient encounter procedure Lemuel Lee MD Work Phone: [facility] Work Phone: Start: 10-26-2023 End: 10-26-2023 Periodic preventive med est patient 18-39 yrs Lemuel Lee MD Work Phone: [facility] RECOVERY COACH Comment on above: Well woman exam with routine gynecological exam (Primary Dx); Cervical cancer screening Start: 09-29-2023 ambulatory ANAND Yoder [facility] Start: 09-29-2023 End: 09-29-2023 Office outpatient visit 15 minutes Jelena Walter APRN-ASSOCIATE PROFESSOR OF FORESTRY Work Phone: [facility] Comment on above: Acute bronchitis, un specified organism (Primary Dx); Acute cough Start: 09-01-2023 End: 09-01-2023 Office outpatient visit 25 minutes Татьяна Brooke CNP Work Phone: [facility] Comment on above: Anxiety (Primary Dx) Start: 07-21-2023 End: 07-21-2023 Initial preventive medicine new pt age 18-39yrs Татьяна Brooke CNP Work Phone: [facility] Comment on above: Preventative health care (Primary Dx); Anxiety Start: 07-21-2023 End: 07-21-2023 Patient encounter status Татьяна Brooke CNP Work Phone: [facility] Work Phone: Start: 07-09-2023 ambulatory ANAND Yoder [facility] Start: 07-06-2023 ambulatory ANAND Yoder [facility] Start: 04-01-2023 ambulatory [facility] Start: 01-07-2023 End: 01-07-2023 Emergency department patient visit Marie Fabiano [place] [id number] Start: 01-05-2023 ambulatory SELF SELF [facility] Start: 01-05-2023 End: 01-05-2023 Office outpatient visit 15 minutes Amy PALMER Work Phone: [facility] Comment on above: Viral URI with cough (Primary Dx); Acute cough Start: 12-31-2022 End: 12-31-2022 Emergency department patient visit Marie Mario [facility] Start: 10-20-2022 End: 10-20-2022 Office outpatient visit 10 minutes Lemuel Lee MD Work Phone: [facility] RECOVERY COACH Comment on above: Disruption of episio keyanna wound in the puerperium (Primary Dx) Start: 08-11-2022 End: 08-13-2022 Evaluation and management of inpatient Lemuel Lee MD Work Phone: [facility] Comment on above: Encounter for induct ion of labor Start: 08-05-2022 End: 08-05-2022 Subsequent care visit Lemuel Lee MD Work Phone: [employer]OV[employer] CO[employer] Comment on above: Diet controlled gest ational diabetes mellitus (GDM) in third trimester (Primary Dx); Supervision of high risk in third trimester; 37 weeks gestation of Start: 07-30-2022 End: 07-30-2022 Subsequent care visit Lemuel Lee MD Work Phone: [employer]OVERY CO[employer] Comment on above: Diet controlled gest ational diabetes mellitus (GDM) in third trimester (Primary Dx); Supervision of high risk in third trimester; 37 weeks gestation of Start: 07-23-2022 End: 07-23-2022 Subsequent care visit Lemuel Lee MD Work Phone: [facility] RECOVERY COACH Comment on above: Diet controlled gest ational diabetes mellitus (GDM) in third trimester (Primary Dx); Supervision of high risk in third trimester; 36 weeks gestation of Start: 07-21-2022 End: 07-21-2022 Patient encounter status Татьяна Brooke CNP Work Phone: [facility] Start: 07-21-2022 End: 07-21-2022 Periodic preventive med est patient 18-39 yrs Татьяна Brooke ASSOCIATE PROFESSOR OF FORESTRY Work Phone: [facility] Comment on above: Preventative health care (Primary Dx) Start: 07-17-2022 End: 07-17-2022 Subsequent care visit Lauren Perez BENEFITS REPRESENTATIVE-ASSOCIATE PROFESSOR OF FORESTRY Work Phone: [facility] RECOVERY COACH Comment on above: Supervision of high risk in third trimester (Primary Dx); Diet controlled gestational diabetes mellitus (GDM) in third trimester; 35 weeks gestation of Start: 07-13-2022 End: 07-13-2022 Subsequent care visit Josse Walter MD Work Phone: [facility] RECOVERY COACH Comment on above: RUQ pain (Primary Dx ); Abnormal maternal glucose tolerance, antepartum; Diet controlled gestational diabetes mellitus (GDM) in third trimester Start: 07-09-2022 End: 07-09-2022 Subsequent care visit Lemuel Lee MD Work Phone: [facility] RECOVERY COACH Comment on above: Diet controlled gest ational diabetes mellitus (GDM) in third trimester (Primary Dx); Encounter for supervision of high risk in third trimester, antepartum; 34 weeks gestation of Start: 06-29-2022 End: 06-29-2022 Subsequent care visit Lemuel Lee MD Work Phone: [facility] RECOVERY COACH Comment on above: Diet controlled gest ational diabetes mellitus (GDM) in third trimester (Primary Dx); Encounter for supervision of high risk in third trimester, antepartum; 32 weeks gestation of Start: 06-25-2022 End: 06-25-2022 Subsequent care visit Josse Walter MD Work Phone: [facility] RECOVERY COACH Comment on above: Diet controlled gest ational diabetes mellitus (GDM) in third trimester (Primary Dx); Encounter for supervision of high risk in third trimester, antepartum; 32 weeks gestation of Start: 06-18-2022 End: 06-18-2022 Subsequent care visit Lemuel Lee MD Work Phone: [facility] RECOVERY COACH Comment on above: Diet controlled gest ational diabetes mellitus (GDM) in third trimester (Primary Dx); Encounter for supervision of high risk in third trimester, antepartum; 31 weeks gestation of ; Ultrasound scan done for inability to hear heart tones Start: 06-18-2022 End: 06-18-2022 Subsequent hospital visit by physician Lemuel Lee MD Work Phone: [facility] Start: 06-17-2022 End: 06-17-2022 Nutrition therapy Lemuel Lee MD Work Phone: [facility] Comment on above: Diet controlled gest ational diabetes mellitus (GDM), antepartum (Primary Dx) Start: 06-16-2022 End: 06-16-2022 Nutrition therapy Lemuel Lee MD Work Phone: [facility] Comment on above: Diet controlled gest ational diabetes mellitus (GDM), antepartum Start: 06-15-2022 End: 06-15-2022 Subsequent hospital visit by physician Lemuel Lee MD Work Phone: [facility] Comment on above: Arrived Start: 05-22-2022 End: 05-22-2022 Subsequent care visit Josse Walter MD Work Phone: [facility] RECOVERY COACH Comment on above: Decreased move ments in second trimester, single or unspecified fetus (Primary Dx) Start: 04-30-2022 End: 04-30-2022 Subsequent care visit Lemuel Lee MD Work Phone: [facility] RECOVERY COACH Comment on above: Encounter for superv ision of normal first in second trimester (Primary Dx); 24 weeks gestation of Start: 04-30-2022 End: 04-30-2022 Subsequent hospital visit by physician Josse Walter MD Work Phone: [facility] Start: 04-09-2022 End: 04-09-2022 Subsequent care visit Josse Walter MD Work Phone: [facility] RECOVERY COACH Comment on above: care in sec ond trimester (Primary Dx) Start: 04-09-2022 End: 04-09-2022 Subsequent hospital visit by physician Lemuel Lee MD Work Phone: [facility] Start: 03-12-2022 End: 03-12-2022 Subsequent care visit Lemuel Lee MD Work Phone: [employer]OVERY [employer] Comment on above: Encounter for superv ision [...] care visit Josse Walter MD Work Phone: [employer]OV[employer] Comment on above: Dysuria (Primary Dx) Start: 01-26-2022 End: 01-26-2022 Subsequent hospital visit by physician Josse Walter MD Work Phone: [facility] Start: 01-09-2022 End: 01-09-2022 Office outpatient visit 5 minutes Lemuel Lee MD Work Phone: [employer]OV[employer] Comment on above: 8 weeks gestation of (Primary Dx) Start: 12-17-2021 End: 12-17-2021 Office outpatient visit 15 minutes Lemuel Lee MD Work Phone: [employer] RECOVERY CO[employer] Comment on above: Pelvic pain in pregn deonna, antepartum, first trimester (Primary Dx) Start: 11-24-2021 End: 11-24-2021 Office outpatient visit 15 minutes Lemuel Lee MD Work Phone: [employer] RECOVERY COACH Comment on above: Infertility associat ed with anovulation (Primary Dx) Start: 01-30-2020 End: 01-30-2020 Office outpatient visit 25 minutes Татьяна Brooke Work Phone: [facility] Comment on above: Weight gain (Primary Dx); PCOS (polycystic ovarian syndrome) Start: 10-12-2019 End: 10-12-2019 Office outpatient visit 25 minutes Татьяна Brooke Work Phone: [facility] Comment on above: PCOS (polycystic ova chandler syndrome) (Primary Dx) Start: 09-25-2019 End: 09-25-2019 Office outpatient visit 25 minutes Татьяна Brooke Work Phone: [facility] Comment on above: Weight gain (Primary Dx) Start: 01-31-2019 End: 02-04-2019 Patient encounter procedure ANAND COOLEY [facility] Start: 01-21-2018 End: 01-21-2018 Office/outpatient visit, est, level 3 Anand Herrmannwell Work Phone: [facility] Start: 08-31-2017 End: 08-31-2017 Emergency department patient visit Michael Aisha Facility:[facility] Date Procedure Procedure Detail Performing Clinician Start: 06-13-2025 Serologic test for syphilis Keyla Meneses HEALTH CARE ANALYST-C Work Phone: Start: 03-01-2025 Hepatitis C antibody measurement Keylasusan Meneses HEALTH CARE ANALYST-C Work Phone: Comment on above: Reactive: Presumptiv e evidence of antibodies to HCV. Follow CDC recommendations for supplemental testing.Non-Reactive: Antibodies to HCV were not detected; does not exclude the possibility of exposure to HCVReactive Results are presumptive evidence of antibodies to HCV. Follow CDC recommendations for supplemental testing.Order confirmation testing: HCV Quant by PCR testing - HCVPCR #[id number] Non Reactive: < 0.8 Equivocal: >/= 0.8 to < 1.0 Reactive: >/= 1.0The CDC requires that a reactive/equivocal HCV antibody result be sent out for confirmation. HCV Quant by PCR testing. Start: 03-01-2025 Procedure Keyla Winn HEALTH CARE ANALYST-C Work Phone: Start: 03-01-2025 Rubella IgG measurement Keyla Meneses HEALTH CARE ANALYST-C Work Phone: Comment on above: Antibody Result: Int erpretationNon-Reactive: Non- ImmuneReactive: ImmuneThe following results were obtained with the Elecsys Rubella IgG assay. Results from assays of other manufacturers cannot be used interchangeably. Start: 03-01-2025 Serologic test for syphilis Keyla Meneses HEALTH CARE ANALYST-C Work Phone: Start: 01-18-2025 Urine culture Keyla zavaletamoe HEALTH CARE ANALYST-C Work Phone: Start: 12-25-2024 Gonadotropin chorion ic qualitative Anna Fuentes MD Work Phone: Start: 06-15-2024 Lipid 1996 panel - S jai or Plasma Anna Fuentes MD Work Phone: Start: 12-07-2023 Iaadiadoo streptococ cus group a Amy PALMER Work Phone: Start: 10-26-2023 Microscopic observat ion [Identifier] in Cervix by Cyto stain Keyla Meneses ASSOCIATE PROFESSOR OF FORESTRY Work Phone: Start: 09-29-2023 Iaadiadoo influenza Benita alin Kiko Jessica BENEFITS REPRESENTATIVE-[facility] Work Phone: Start: 09-29-2023 SARS-CoV-2 (COVID-19 ) RNA [Presence] in Unspecified specimen by NELLY with probe detection Jelena Walter BENEFITS REPRESENTATIVE-[facility] Work Phone: Start: 07-21-2023 Adult depression scr eening assessment Татьяна Brooke [facility] Work Phone: Start: 09-21-2022 Microscopic observat ion [Identifier] in Cervix by Cyto stain Татьяна Brooke [facility] Work Phone: Start: 08-12-2022 Blood count [...] Adult depression scr eening assessment Татьяна Brooke ASSOCIATE PROFESSOR OF FORESTRY Work Phone: Start: 07-17-2022 Hemoglobin glycosylated a1c Lauren Luna Ana BENEFITS REPRESENTATIVE-ASSOCIATE PROFESSOR OF FORESTRY Work Phone: Start: 07-17-2022 nonstress test Sh nusrat Zunigaam BENEFITS REPRESENTATIVE-ASSOCIATE PROFESSOR OF FORESTRY Work Phone: Start: 07-13-2022 Complete blood count [...] RAPID TOX SCREEN WIT H RELEX TO [facility] Josse Walter MD Work [...] [Units/v olume] in Serum or Plasma Татьяна Brooek Work Phone: Start: 09-25-2019 Lutropin [Units/volu me] [...] or 75+ (1 - 1-dose 75+ series) [facility] Start: 2070 RSV Vaccines (1 - 1-dose 75+ series) RSV Vaccines (1 - 1-dose 75+ series) [facility] Start: 2045 Administration of herpes zoster vaccine Zoster Vaccines (1 of 2) [facility] Start: 2045 Zoster Vaccines (1 of 2) Zoster Vaccines (1 of 2) [facility] Start: 06-15-2029 Lipid panel Lipid Panel [facility] Start: 10-26-2026 Screening for malignant neoplasm of cervix [facility] Start: 09-21-2025 Screening for malignant neoplasm of cervix Pap Smear [facility] Start: 06-26-2025 End: 06-26-2025 Patient encounter procedure 06/26/2025 2:30 PM EDT Office Visit [facility] [address] [place] [address] Anna Fuentes MD [address] [address] [facility] Start: 05-14-2025 COVID-19 Vaccine ( season) COVID-19 Vaccine ( season) [facility] Start: 05-14-2025 Influenza vaccination [facility] Start: 03-27-2025 End: 03-27-2025 Patient encounter procedure 03/27/2025 2:00 PM EDT Office Visit [facility] [address] [place] [address] Anna Fuentes MD [address] [place] [address] [facility] Start: 03-10-2025 COVID-19 Vaccine ( season) COVID-19 Vaccine ( season) [facility] Comment on above: Postponed from 05/14/2023 (Treatment Not Available) Start: 03-06-2025 Depression screening using PHQ-9 (Patient Health Questionnaire 9) score Depression Screening/Follow-Up (PHQ-2/9) [facility] Start: 2025 Screening for malignant neoplasm of cervix HPV/Cotest [facility] Start: 11-01-2024 End: 11-01-2024 Patient encounter procedure 11/01/2024 2:50 PM EST Office Visit [facility] RECOVERY COACH [address] [phone] Lemuel Lee MD 1200 [facility] [address] [place] [phone] [facility] RECOVERY COACH Start: 10-26-2024 History and physical examination, annual for health maintenance Wellness Visit [facility] Start: 10-26-2024 Screening for malignant neoplasm of cervix CERVICAL CANCER SCREENING DISCUSSION [facility] Start: 07-21-2024 Depression screening using PHQ-9 (Patient Health Questionnaire 9) score Depression Screening (PHQ-2/9) [facility] Start: 07-21-2024 History and physical examination, annual for health maintenance Wellness Visit [facility] Start: 06-09-2024 End: 06-09-2024 Patient encounter procedure 06/09/2024 1:00 PM EDT Initial consult [facility] [address] [place] [phone] Keyla Meneses, ASSOCIATE PROFESSOR OF FORESTRY [address] [place] [address] Anna Fuentes MD [address] [place] [address] [facility] Start: 05-18-2024 End: 05-18-2024 Patient encounter procedure 05/18/2024 8:00 AM EDT Office Visit [facility] [address] [place] [place] [address] Keyla Meneses CNP [address] [place] [address] [facility] Start: 05-14-2024 COVID-19 Vaccine ( season) COVID-19 Vaccine ( season) [facility] Start: 05-14-2024 COVID-19 Vaccine ( season) COVID-19 Vaccine () [facility] Start: 05-14-2024 Influenza vaccination [facility] Start: 04-27-2024 End: 04-27-2024 Patient encounter procedure 04/27/2024 8:00 AM EDT Office Visit [facility] [address] [place] [place] [address] Keyla Meneses, MED [address] [place] [address] [facility] Start: 04-06-2024 End: 04-06-2024 Patient encounter procedure 04/06/2024 8:30 AM EDT Office Visit [facility] [address] [place] [place] [address] Keyla Meneses ASSOCIATE PROFESSOR OF FORESTRY [address] [place] [address] [facility] Start: 03-12-2024 Influenza vaccination Sequential Influenza Vaccine (#1) [facility] Comment on above: Postponed from 05/14/2023 (Patient Refus ed) Start: 12-07-2023 End: 12-06-2024 [facility] Comment on above: Expected: 12/07/2023, Expires: Start: 12-01-2023 End: 12-01-2023 Patient encounter procedure 12/01/2023 8:30 AM EDT Office Visit [facility] [address] [place] [address] Татьяна Brooke, ASSOCIATE PROFESSOR OF FORESTRY [address] [place] [address] [facility] Start: 10-26-2023 End: 10-26-2023 Patient encounter procedure [facility] RECOVERY COACH Start: 10-26-2023 End: 10-26-2024 CHIOMA CYTOLOGY-PHARMACOLOGIST, LIQUID BASED [facility]IOMA CYTOLOGY-PHARMACOLOGIST, LIQUID BASED Cytology Routine Well woman exam with routine gynecological exam Cervical cancer screening Expected: 10/26/2023, Expires: 10/26/2024 [facility] Comment on above: Expected: 10/26/2023, Expires: Start: 09-21-2023 Screening for malignant neoplasm of cervix CERVICAL CANCER SCREENING DISCUSSION [facility] Start: 09-01-2023 End: 09-01-2023 Patient encounter procedure 09/01/2023 8:30 AM EST Office Visit [facility] [address] [place] [address] Татьяна Brooke, ASSOCIATE PROFESSOR OF FORESTRY [address] [place] [address] [facility] Start: 07-21-2023 Depression screening using PHQ-9 (Patient Health Questionnaire 9) score Depression Screening (PHQ-2/9) [facility] Start: 07-21-2023 History and physical examination, annual for health maintenance Wellness Visit [facility] Start: 05-14-2023 COVID-19 VACCINE ( season) COVID-19 VACCINE () [facility] Start: 05-14-2023 Influenza vaccination [facility] [employer] Start: 01-26-2023 GONORRHEA SCREEN GONORRHEA SCREEN [facility] Start: 01-26-2023 Screening for Chlamydia trachomatis CHLAMYDIA SCREEN [facility] Start: 10-22-2022 History and physical examination, annual for health maintenance Wellness Visit [facility] Start: 10-22-2022 Screening for malignant neoplasm of cervix CERVICAL CANCER SCREENING DISCUSSION [facility] Start: 08-05-2022 End: 08-05-2022 Follow-up encounter 08/05/2022 Follow Up Visit RECOVERY COACH Lemuel Lee MD [address] [place] [phone] [facility] RECOVERY COACH Start: 07-30-2022 End: 07-30-2022 Follow-up encounter 07/30/2022 Follow Up Visit RECOVERY COACH Lemuel Lee MD [address] [place] [address] [facility] RECOVERY COACH Start: 07-23-2022 End: 07-23-2022 Follow-up encounter 07/23/2022 Follow Up Visit RECOVERY COACH Lemuel Lee MD [address] [place] [address] [facility] RECOVERY COACH Start: 07-17-2022 End: 07-17-2023 BETA STREP, VAGINAL SCREEN [facility] Comment on above: Expected: 07/17/2022, Expires: Start: 07-17-2022 End: 07-17-2022 Follow-up encounter 07/17/2022 Follow Up Visit RECOVERY COACH Lauren Perez APRN-ASSOCIATE PROFESSOR OF FORESTRY [id number] [place] [address] [facility] RECOVERY COACH Start: 07-17-2022 End: 07-17-2022 Patient encounter procedure 07/17/2022 Appointment Ultrasound Lauren Perez APRN-ASSOCIATE PROFESSOR OF FORESTRY [id number] [place] [address] [facility] Start: 07-09-2022 End: 07-09-2023 OB ultrasound panel US OB GROWTH/DATING > 14WEEKS Imaging Routine Diet controlled gestational diabetes mellitus (GDM) in third trimester Expected: 07/09/2022, Expires: 07/09/2023 [facility] Comment on above: Expected: 07/09/2022, Expires: Start: 07-09-2022 End: 07-09-2022 Follow-up encounter 07/09/2022 Follow Up Visit RECOVERY COACH Lemuel Lee MD [address] [place] [address] [facility] RECOVERY COACH Start: 07-07-2022 End: 07-07-2022 Telemedicine consultation with patient 07/07/2022 Telemedicine Telephone Nutrition Lemuel Lee MD [address] [place], [place] [phone] Татьяна Villegas RN [facility] Start: 06-30-2022 End: 06-30-2022 Telemedicine consultation with patient 06/30/2022 Telemedicine Nutrition Lemuel Lee MD [address] [place], [place] [phone] Marianna Aguilar, LEANDRO [facility] Start: 06-29-2022 End: 06-29-2022 Follow-up encounter 06/29/2022 Follow Up Visit RECOVERY COACH Lemuel Lee MD [address] [place] [address] [facility] RECOVERY COACH Start: 06-25-2022 End: 06-25-2022 Follow-up encounter 06/25/2022 Follow Up Visit RECOVERY COACH Josse Walter MD [address] [place] [address] Lemuel Lee MD [address] [place] [address] [facility] RECOVERY COACH Start: 06-18-2022 End: 06-18-2022 Follow-up encounter 06/18/2022 Follow Up Visit RECOVERY COACH Lemuel Lee MD [address] [place] [phone] [facility] RECOVERY COACH Start: 06-18-2022 End: 06-18-2022 Patient encounter procedure 06/18/2022 Appointment Ultrasound Lemuel Lee MD [address] [place] [address], [place] [address] [facility] Start: 06-17-2022 End: 06-17-2022 Nutrition therapy 06/17/2022 Nutrition Nutrition Татьяна Villegas RN [facility] Start: 06-11-2022 End: 06-11-2022 Follow-up encounter 06/11/2022 Follow Up Visit RECOVERY COACH Josse Walter MD [address] [facility] [address] [place] [address], [place] [phone] [facility] RECOVERY COACH Start: 06-03-2022 End: 06-03-2022 Patient encounter procedure 06/03/2022 Appointment Ultrasound Tristan Samuel MD [address] [place] [address] Lemuel Lee MD [address] [facility] [address] [place] [phone] [facility] Start: 05-28-2022 End: 05-28-2022 Follow-up encounter 05/28/2022 Follow Up Visit RECOVERY COACH Lemuel Lee MD [address] [place] [address], [place] [phone] [facility] RECOVERY COACH Start: 05-14-2022 Influenza vaccination [facility] Start: 04-30-2022 End: 04-30-2022 Follow-up encounter 04/30/2022 Follow Up Visit RECOVERY COACH Lemuel Lee MD [address] [place] [address] [facility] RECOVERY COACH Start: 04-30-2022 End: 04-30-2022 Patient encounter procedure 04/30/2022 Appointment Ultrasound Josse Walter MD [address] [place] [address], [place] [address] [facility] Start: 04-09-2022 End: 04-09-2022 Follow-up encounter 04/09/2022 Follow Up Visit RECOVERY COACH Josse Walter MD [address] [place] [address] [facility] RECOVERY COACH Start: 04-09-2022 End: 04-09-2022 Patient encounter procedure 04/09/2022 Appointment Ultrasound Lemuel Lee MD [address] [place] [address], [place] [address] [facility] Start: 03-12-2022 End: 03-12-2022 Follow-up encounter 03/12/2022 Follow Up Visit RECOVERY COACH Lemuel Lee MD [address] [place] [address], [place] [address] [facility] RECOVERY COACH Start: 03-12-2022 End: 03-12-2022 Patient encounter procedure 03/12/2022 Appointment Ultrasound Lemuel Lee MD [address] [place] [address], [place] [address] [facility] Start: 03-12-2022 End: 03-12-2023 [id number] [Presence] in Serum or Plasma [facility] Comment on above: Expected: 03/12/2022, Expires: Start: 2022 Vaccination for human papillomavirus HPV Vaccines (1 - 3-dose SCDM series) [facility] Start: 01-26-2022 End: 01-26-2022 Follow-up encounter 01/26/2022 Follow Up Visit RECOVERY COACH Josse Walter MD [address] [place] [address] [facility] RECOVERY COACH Start: 01-26-2022 End: 01-26-2022 Patient encounter procedure 01/26/2022 Appointment Ultrasound Josse Walter MD [address] [place] [address] [facility] Start: 01-09-2022 End: 01-09-2023 Bacteria identified in Urine by Culture [facility] Comment on above: Expected: 01/09/2022, Expires: 3 Start: 01-09-2022 End: 01-09-2022 Clinical Support Encounter 01/09/2022 Clinical Support Encounter RECOVERY COACH [facility] RECOVERY COACH Start: 01-09-2022 End: 01-09-2023 HEPATITIS B SURFACE ANTIGEN [facility] Work Phone: Comment on above: Expected: 01/09/2022, Expires: 3 Start: 01-09-2022 End: 01-09-2023 OB ultrasound panel US OB DATING ABDOMINAL < 14WEEKS Imaging Routine 8 weeks gestation of Expected: 01/09/2022, Expires: 01/09/2023 [facility] Comment on above: Expected: 01/09/2022, Expires: 3 Start: 01-09-2022 End: 01-09-2023 RPR WITH FTA REFLEX [facility] Comment on above: Expected: 01/09/2022, Expires: 3 Start: 01-09-2022 End: 01-09-2023 RUBELLA IMMUNE STATUS IGG ANTIBODY [facility] Comment on above: Expected: 01/09/2022, Expires: 3 Start: 01-09-2022 End: 01-09-2023 VARICELLA IGG AB (IMM STATUS) [facility] Comment on above: Expected: 01/09/2022, Expires: 3 Start: 05-14-2021 Influenza vaccination INFLUENZA VACCINE (#1) [facility] Start: 09-25-2020 Depression screening using PHQ-9 (Patient Health Questionnaire 9) score [facility] Start: 09-25-2020 Tetanus vaccination [facility] Comment on above: Postponed from 1995 (Patient Refus ed) Start: 07-14-2020 Screening for malignant neoplasm of cervix PAP SMEAR [facility] Start: 01-11-2020 End: 01-11-2020 Office Visit 01/11/2020 Office Visit Primary Care Татьяна Brooke, ASSOCIATE PROFESSOR OF FORESTRY [address] [place] [address] [phone] [facility] Start: 09-25-2019 End: 09-25-2020 Plasma dehydroepiandrosterone sulfate level DHEA-Sulfate Lab Add-On Weight gain Expected: 09/25/2019, Expires: 09/25/2020 [facility] Comment on above: Expected: 09/25/2019, Expires: 1 Start: 09-25-2019 End: 09-25-2020 Testosterone [Mass/Vol] Testosterone, Total Lab Add-On Weight gain Expected: 09/25/2019, Expires: 09/25/2020 [facility] Comment on above: Expected: 09/25/2019, Expires: 1 Start: 07-14-2018 Screening for Chlamydia trachomatis Chlamydia Screening [facility] Start: 05-14-2018 Influenza vaccination SEQUENTIAL INFLUENZA VACCINE (Season Ended) [facility] Start: 2017 DTaP/Tdap/Td Vaccines (2 - Tdap) DTaP/Tdap/Td Vaccines (2 - Tdap) [facility] Start: 02-10-2016 Screening for malignant neoplasm of cervix [facility] Start: 2014 Hepatitis B vaccination [facility] Start: 2014 Hepatitis B Vaccines (1 of 3 - 19+ 3-dose series) Hepatitis B Vaccines (1 of 3 - 19+ 3-dose series) [facility] Start: 2014 Third diphtheria, tetanus and acellular pertussis (DTaP) vaccination TDAP (ADULT) [facility] Start: 2014 Vaccination for diphtheria, pertussis, and tetanus Tetanus/Diphtheria/Pe rtussis (2 - Tdap) [facility] Start: 2013 Hepatitis C screening Hepatitis C Screening [facility] Start: 2013 Tetanus vaccination TETANUS [facility] Start: 2011 Screening for Chlamydia trachomatis CHLAMYDIA SCREEN [facility] Start: 2010 HIV screening [facility] Start: 02-10-2008 Varicella vaccination Varicella Vaccines (1 of 2 - 13+ 2-dose series) [facility] Start: 2006 Vaccination for human papillomavirus [facility] Start: 02-10-2000 COVID-19 VACCINE (#1) COVID-19 VACCINE (#1) [facility] Start: 02-10-2000 COVID-19 VACCINE (1) COVID-19 VACCINE (1) [facility] Start: 1998 History and physical examination, annual for health maintenance Wellness Visit [facility] Start: 1995 COVID-19 VACCINE (#1) COVID-19 VACCINE (#1) [facility] tem Start: 1995 Fasting lipid profile Lipid Panel [facility] Start: 1995 GONORRHEA SCREEN GONORRHEA SCREEN [facility] Start: 1995 Hepatitis B vaccination HEP B VACCINE (1 of 3 - 3-dose series) [facility] Start: 1995 Hepatitis C antibody, confirmatory test HEPATITIS C VIRUS SCREENING [facility] Start: 1995 Hepatitis C screening HEPATITIS C VIRUS SCREENING [facility] Start: 1995 Lipid panel Lipid Panel [facility] Start: 1995 Screening for malignant neoplasm of cervix PAP SMEAR [facility] Start: 1995 Tetanus vaccination [facility] Start: 1995 Yearly Adult Physical Yearly Adult Physical [facility] End: 04-06-2025 B12/Folate B12/Folate Lab Routine Chronic fatigue 1 Occurrences starting 04/06/2024 until 04/06/2025 [facility] Comment on above: 1 Occurrences starting 04/06/2024 until 04/06/2025 Bacteria identified in Urine by Culture URINE CULTURE Microbiology Today Dysuria 02/02/2022 4:48 PM EDT [facility] CBC W Auto Different ial panel - Blood [facility] CBC W Auto Different ial panel - Blood [facility] End: 04-06-2025 Complete blood count with white cell differential, manual CBC and Differential Lab Routine Chronic fatigue 1 Occurrences starting 04/06/2024 until 04/06/2025 [facility] Comment on above: 1 Occurrences starting 04/06/2024 until 04/06/2025 End: 01-21-2019 Comprehensive metabolic panel [AGGREGATE] Comprehensive Metabolic Panel Routine Weight gain 1 Occurrences starting 01/21/2018 until 01/21/2019 [facility] End: 01-29-2021 Free T3 [Mass/Vol] T3, Free Lab Routine Weight gain 1 Occurrences starting 01/30/2020 until 01/29/2021 [facility] Comment on above: 1 Occurrences starting 01/30/2020 until 01/29/2021 Free T3 [Mass/Vol] T3, Free Lab Routine Weight gain 01/30/2020 8:29 AM EDT [facility] Hemoglobin A1c/Hemoglobin.total in Blood [facility] Hepatitis C antibody measurement [facility] End: 09-25-2020 Insulin Qn Insulin, Total Lab Routine Weight gain 1 Occurrences starting 09/25/2019 until 09/25/2020 [facility] Comment on above: 1 Occurrences starting 09/25/2019 until 09/25/2020 Insulin Qn Insulin, Total L ab Routine Weight gain 09/25/2019 5:50 PM EST [facility] End: 04-06-2025 Iron measurement Iron Study with Ferritin Lab Routine Chronic fatigue 1 Occurrences starting 04/06/2024 until 04/06/2025 [facility] Work Phone: Comment on above: 1 Occurrences starting 04/06/2024 until 04/06/2025 Measurement of gluco se 2 hours after glucose challenge for glucose tolerance test [facility] PAP IG, RFX HPV ASCU PAP IG, RFX HPV ASCU Cytology Routine 10/26/2023 4:00 PM EST [facility] Plasma dehydroepiand rosterone sulfate level DHEA-Sulfate Lab Add-On Weight gain 09/25/2019 5:50 PM EST [facility] [place] NON-STRESS TEST [place] FETA [place] NON-STRESS TEST [place] Charge Routine Decreased movements in second trimester, single or unspecified fetus Ordered: 05/22/2022 [facility] Comment on above: Ordered: 05/22/2022 Procedure [facility] End: 11-24-2022 PROGESTERONE PROGESTERONE Lab Routine Infertility associated with anovulation 6 Occurrences starting 11/24/2021 until 11/24/2022 [facility] Comment on above: 6 Occurrences starting 11/24/2021 until 11/24/2022 Rubella IgG measurement [facility] Serologic test for syphilis [facility] Serologic test for syphilis [facility] Testosterone [Mass/Vol] Testoste harriett Total Lab Add-On Weight gain 09/25/2019 5:50 PM EST [facility] End: 01-21-2019 TSH TSH Routine Weight gain 1 Occurrences starting 01/21/2018 until 01/21/2019 [facility] Ultrasound scan for growth [facility] End: 04-30-2022 US OB LIMITED/AMNIOTIC FLUID [facility] Work Phone: Comment on above: 1 Occurrences starting 04/30/2022 until 04/30/2022 [facility] Immunizations Immunization Date Immunization Notes Care Provider Fa [facility] 08-11-2022 varicella zoster imm une globulin Lemuel Lee MD Work Phone: [facility] 08-11-2022 measles, mumps and rubella virus vaccine Lemuel Lee MD Work Phone: [facility] 06-15-2019 influenza, injectabl e, quadrivalent, preservative free [facility] 06-15-2019 influenza virus vaccine, unspecified formulation Lemuel Lee MD Work Phone: [facility] 11-27-1999 diphtheria, tetanus toxoids and acellular pertussis vaccine, unspecified formulation [facility] 11-27-1999 measles, mumps and rubella virus vaccine [facility] Payers Date Payer Category Payer Self-pay 2021 Blue [facility]eric [facility] Care [facility] Member Subscriber Plan / Payer (Effective 2021-Present) Name: Drake Petty Relation to Subscriber: Self Name: Drake Petty Payer ID: [id number] (NAIC) Type: Not on file Address: [address] [place] [id number] 2019 Blue [employer] Blue [employer] ANTHEM BL UE/PREF/HMO/PPO Member Subscriber Plan / Payer (Effective 2019-Present) Name: Drake Petty Relation to Subscriber: Self Name: Drake Petty Payer ID: [id number] (NAIC) Type: Not on file Address: [address] [place] [id number] 2019 Unknown ANTHEM ANTHEM BLUE/PREF/HMO/PPO xxxxxxxxxxxx 2019-Present [id number]. [id number] 2019 Unknown [id number]. 1.13.172.2. 7.3.758780.315 2019 Unknown [id number] 2017 Unknown [id number] 1995 Unknown [id number] 2.16.840.1.856463.3.579.2. 900 1995 Unknown [id number] 2.16840.1.960992.3.579.2. 1068 1995 Unknown [id number] 2.16.840.1.065785.3.579.2. 1068 1995 Unknown [id number] 2.16.840.1.102210.3.579.2. 983 1995 Unknown [id number] 2.16.840.1.098592.3.579.2. 98 1995 Unknown [id number] 2.16.840.1.335296.3.579.2. 98 1995 Unknown [id number] 2.16.840.1.915362.3.579.2. 98 1995 Unknown [id number] 2.16.840.1.556805.3.579.2. 98 1995 Unknown [id number] 2.16840.1.690416.3.579.2. 98 1995 Unknown [id number] 2.16840.1.830124.3.579.2. 98 1995 Unknown [id number] 2.16840.1.679296.3.579.2 1995 Unknown [id number] 2.16840.1.956036.3.579.2. 1995 Unknown [id number] 2.16840.1.733865.3.579.2 1995 Unknown [id number] 2.16840.1.384384.3.579.2 1995 Unknown [id number] 2.16840.1.028748.3.579.2. 1243 1995 Unknown [id number] 2.16840.1.318449.3.579.2 47 1995 Unknown [id number] 2.16840.1.476949.3.579.2 47 1995 Unknown [id number] 2.16840.1.345247.3.579.2. 1995 Unknown [id number] 2.16840.1.248860.3.579.2 1995 Unknown [id number] 2.16840.1.046274.3.579.2 1995 Unknown [id number] 2.16840.1.321632.3.579.2. 903 1995 Unknown [id number] 2.840.1.288694.3.579.2. 903 1995 Unknown [id number] 2.840.1.128880.3.579.2. 903 1995 Unknown [id number] 2.840.1.726034.3.579.2. 90 1995 Unknown [id number] 2.840.1.208609.3.579.2. 903 Unknown [id number] 2.840.1.457541.3.579.2. 462 Unknown [id number] 2.840.1.032675.3.579.2. 462 Unknown [id number] 2.0.1.615769.3.579.2. 462 Unknown [id number] 2.0.1.341900.3.579.2. 462 Unknown [id number] 2.840.1.952886.3.579.2. 462 Unknown [id number] 2.0.1.506140.3.579.2. 462 Unknown [id number] 2.840.1.746809.3.579.2. 462 Unknown [id number] 2.0.1.867925.3.579.2. 462 Unknown [id number] 2.840.1.599058.3.579.2. 462 Unknown [id number] .840.1.381868.3.579.2. 462 Unknown [id number] 2.840.1.167729.3.579.2. 462 Unknown [id number] 2.840.1.937667.3.579.2. 462 Unknown [id number] 2.840.1.009623.3.579.2. 462 Unknown [id number] 2.16.840.1.508927.3.579.2. 462 Unknown [id number] 2.16.840.1.138087.3.579.2. 462 Unknown [id number] 2.16.840.1.299622.3.579.2. 462 Unknown [id number] 2.16.840.1.047659.3.579.2. 462 Unknown [id number] 2.16.840.1.783516.3.579.2. 462 Unknown [id number] 2.16.840.1.214113.3.579.2. 462 Social History Date Type Detail Facility Start: 01-21-2018 End: 01-11-2025 Tobacco smoking status NHIS Never smoker [facility] Start: 1995 Sex Assigned At Not on file [facility] Start: 09-25-2019 End: 06-26-2025 Alcohol intake Current drinker of alcohol (finding) [facility] Start: 09-25-2019 End: 11-24-2021 History SDOH Alcohol Frequency 3 [facility] Start: 09-25-2019 End: 11-24-2021 History SDOH Alcohol Std Drinks 1 [facility] Start: 01-29-2020 End: 06-17-2022 History SDOH Social Connections Get Together 4 [facility] Start: 11-14-2021 End: 11-09-2024 Exposure to SARS-CoV-2 (event) Not sure [facility] Start: 04-21-2017 End: 06-17-2022 Tobacco use and exposure Smokeless tobacco non-user [facility] Start: 11-24-2021 End: 09-29-2023 Alcohol intake Ex-drinker (finding) [facility] Start: 11-24-2021 End: 06-17-2022 History SDOH Alcohol Std Drinks 0 [facility] Start: 11-24-2021 End: 06-17-2022 History SDOH Social Connections Phone 2 [facility] Start: 11-24-2021 End: 07-21-2022 History SDOH Financial 5 [facility] Start: 11-22-2021 [facility] Start: 06-17-2022 Education 17 [facility] Tobacco smoking consumption unknown [facility] Start: 06-17-2022 End: 07-21-2023 History of Social function [facility] Start: 06-17-2022 End: 07-21-2023 Humiliation, Afraid, Rape, and Kick questionnaire [HARK] [facility] Within the last year , have you been afraid of your partner or ex-partner? No [facility] Are you now , , , , never or living with a partner? [facility] How often to you hav e a drink containing alcohol? Never [facility] How many standard drinks containing alcohol do you have on a typical day? Patient does not drink [facility] Do you feel stress - tense, restless, nervous, or anxious, or unable to sleep at night because your mind is troubled all the time - these days [OSQ] To some extent [facility] (I/We) worried wheth er (my/our) food would run out before (I/we) got money to buy more. Never true [facility] Start: 04-21-2017 Gender identity Identifies as female gender (finding) [facility] Start: 01-31-2019 Sexual orientation Heterosexual (fin ding) [facility] Do you feel stress - tense, restless, nervous, or anxious, or unable to sleep at night because your mind is troubled all the time - these days [OSQ] Not at all [facility] Start: 10-26-2023 Alcohol Comment consumes occassional ly [facility] Start: 03-06-2024 Alcohol Comment occasional [facility] Start: 1995 Sex Assigned At Female W [facility] NEGATED: Highlighted rowStart: CLEM History of tobacco use Passive smoker [employer] [facility] [facility] Medical Equipment Procedure Code Equipment Code Equipment Origin al Text Equipment Identifier Dates Droplet Pen Need les 32G X 4 MM Misc [id number] Start: 11-03-[address] to check fasting BS every morning and then two hours after each meal. [id number] Start: 06-11-2022 End: 08-13-[address] to check BS every morning and then two hours after each meal. 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 Energy and motivation is fair. We again [...] AUTHENTICATED BY ANNA FUENTES, ON 06/26/2025 14:42:03 [facility] 06-25-2025 Progress note [facility] 06-25-2025 Progress note Note Date/Time June 25, 2025 3:43pm [facility] [address] [place] [address], [address] [place] [address] OFFICE VISIT Date of Service: 06/25/25 MR#: [id number] Acct: [id number] Name: DRAKE PETTY Rep #: [id number] : 1995 Provider: BRET Ruff Age/Sex: 30/F [place] [facility] [place]: Signed Intake Vital Signs 04/27/25 11:42 06/13/25 15:26 06/25/25 15:16 Height 5 ft 4 in 5 ft 4 in 5 ft 4 in Weight: 185 lb 183 lb 6 oz BMI 31.7 31.4 BP 101/67 108/74 Intake Visit Reasons: 30 WK OB Chief Complaint: 30wk OB Pot Firer Required: No Is patient in pain?: No [...] 1 current occupational status: employed 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 Date Name GA/Weeks Outcome Route Bth Weight Infant Gen Labor Lgth Anesthesia Del [facility] FOB 08/11/22 Ridge 38 live - [...] MH-No VB, LOF. G ood FM. [facility]. Larc 06/13/25 -?-?-?-?-?-?-?-?-?-?-?-?- 28w 1d 185 [...] and Symptoms of Preeclampsia, Feeding No , [place] Education and Family Medical Leave or Disability [...] Acute Comment: on metformin- [place] jennifer in [place] . stopped at first visit. (7) Depression [...] fallen in the past year?: No 06/25/25 1331 <Electronically signed by Nel wayne CNM> Date _ Nel Huffman Signature: Date (if applicable) CC: ~ [facility] Work Phone: 1(426) 536-972610-01-2025 Progress [facility] [address] [place] [address], [address] [place] [id number] OFFICE VISIT Date of Service: 06/13/25 MR#: [id number] Acct: [id number] Name: DRAKE PETTY Luna Rep #: [id number] : 1995 Provider: Dr. 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 Date Name GA/Weeks Outcome Route Bth Weight Gen Labor Lgth Anesthesia Del [facility] Provider FOB 08/11/22 [place] 38 live - [...] and Symptoms of Preeclampsia, Feeding No , [place] Education and Family Medical Leave or Disability [...] Acute Comment: on metformin- [place] jennifer [place] . stopped at first visit. (7) Depression [...] DO> Date _ Emmanuelle Contreras DO [facility] Signature: Date (if applicable) CC: ~ [facility]10-01-2025 Progress note Author Emmanuelle Espinoza [facility] Note Date/Time June 13, 2025 3: 53pm [facility] [address], [address] [place] [address] OFFICE VISIT Date of Service: 06/13/25 MR#: [id number] Acct: [id number] Name: DRAKE PETTY Rep #: [id number] : 1995 Provider: Dr. 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 stopped at first visit. (7) Depression [...] Ling DO> Date _ Emmanuelle Contreras DO [facility] Signature: Date (if applicable) CC: ~ [facility] Work Phone: 1(239) 182-127308-15-2025 [facility] [address] [place] [address], [address] [place] [id number] OFFICE VISIT Date of Service: 04/27/25 MR#: [id number] Acct: [id number] Name: DRAKE PETTY Rep #: [id number] : 1995 Provider: BRET Ruff Age/Sex: 30/F Location[place] [facility] Status: Signed Intake Vital Signs 03/01/25 13:22 03/30/25 13:58 04/27/25 11:42 Height 5 ft 4 in 5 ft 4 in 5 ft 4 in Weight: 177 lb 7 oz BMI 30.4 BP 105/69 Intake Visit Reasons: 21 wk ob Chief Complaint: 21wk OB Pot Firer Required: No Is patient in pain?: No [...] 1 current occupational status: employed current occupation: FT-[employer] current occupational exposures/hazards: No pets and animals: [...] 5-6 times per week duration: 45-60 minutes/day carolann/gnosticism: None seatbelt use: always do you feel [...] Acute Comment: on metformin- sees jennifer [place] . stopped at first visit. (6) Depression [...] Cosigner Signature: Date (if applicable) CC: ~ [facility]07-18-2025 Evaluation note* Diagnosis Onset Date Resolution [...] Abnormal glucose affecting deleted June 25 3:13pm [facility] Work Phone: 1(280) 691-373807-18-2025 [facility] [address] [place] [address], [address] [place] [address] OFFICE VISIT Date of Service: 03/30/25 MR#: [id number] Acct: [id number] Name: DRAKE PETTY Luna Rep #: [id number] : 1995 Provider: Dr. 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 stopped at first visit. (6) Depression with anxiety: Status: Acute Comment: sees psychiatrist-Dr. Fuentes-Does not meet criteria for diagnosis of bipolar Orders: Orders POC Urinalysis 2 Dip (Clinic) Today 03/30/25 1431 chacha GREER> Date _ Ayala Thompson MD Cosign Signature: Date (if applicable) CC: ~ [facility]07-18-2025 Progress note Author Ayala Thompson [facility] Note Date/Time March 30, 2025 2:31 pm [facility] [address] [place] [address], [address] [place] [address] OFFICE VISIT Date of Service: 03/30/25 MR#: [id number] Acct: [id number] Name: DRAKE PETTY Rep #: [id number] : 1995 Provider: Dr. 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 stopped at first visit. (6) Depression with anxiety: Status: Acute Comment: sees psychiatrist-Dr. Fuentes-Does not meet criteria for diagnosis of bipolar Orders: Orders POC Urinalysis 2 Dip (Clinic) Today 03/30/25 1431 <Electronically signed by Ayala burnham MD> Date _ Ayala Childers Signature: Date (if applicable) CC: ~ [facility] Work Phone: 1(631) 643-387407-14-2025 NoteBEHAVIORAL HEALTH PSYCHIATRIC PROGRESS NOTE 03/26/2025 Drake [...] Diabetes Paternal Grandmother ADD / ADHD Brother Slaughters The following portions of the patient's history [...] MD AUTHENTICATED BY ANNA FUENTES, ON 03/26/2025 12:10:30[facility] 03-26-2025 History of Present illness [...] Diabetes Paternal Grandmother ADD / ADHD Brother Slaughters The following portions of the patient's history [...] none Anna Fuentes MD documented in this [id number] Evaluation note* Diagnosis Onset Date Resolution Status Admit Date Depression with anxiety acute J [facility] 2024 1:18pm History of gestational diabetes [...] 27 11:38am Depression with anxiety acute S [facility] 2024 3:33pm History of gestational diabetes [...] high-risk acute May 22 2 025 3:33pm [facility] Work Phone: 1(222) 528-636506-19-2025 Evaluation note* Diagnosis Onset Date Resolution Status [...] lying placenta, antepartum resolved June 13 3:09pm [facility] Work Phone: 1(766) 724-623104-22-2025 Evaluation note* Diagnosis Onset Date Resolution Status [...] high-risk acute January 18, 2025 8: 46am [facility] Work Phone: 1(393) 247-724504-22-2025 Evaluation note* Diagnosis Onset Date Resolution Status [...] 8: 46am Depression with anxiety acute J [facility] 2024 1:18pm History of gestational diabe rommel mellitus (GDM) in prior , currentl acute March 01, 2 025 1:18pm Hx of forceps delivery in pr [place] , currently acute [facility] 2024 1:18pm PCOS (polycystic ovarian syndrome) acute March 01, 2025 1:18pm acute March 01 1:18pm Supervision of high-risk acute March 01, 2025 1:18pm [facility] Work Phone: 1(234) 595-852404-22-2025 Evaluation note* Diagnosis Onset Date Resolution Status [...] delivery in pr ior , currently acute [facility] 2024 1:18pm PCOS (polycystic ovarian syndrome) acute March 01, 2025 1:18pm acute March 01 1:18pm Supervision of high-risk acute March 01, 2025 1:18pm Depression with anxiety acute J [facility] 2024 1:56pm History of gestational diabe rommel mellitus (GDM) in prior , currentl acute March 30 025 1:56pm Hx of forceps delivery in pr ior , currently acute [facility] 2024 1:56pm PCOS (polycystic ovarian syndrome) acute March 30, 2025 1:56pm acute March 30 1:56pm Supervision of high-risk acute March 30, 2025 1:56pm [facility] Work Phone: 1([phone]) 824-795704-22-2025 Evaluation note* Diagnosis Onset Date Resolution Status [...] Supervision of high-risk acute April 27 11:38am [facility] Work Phone: 1(465) 148-427504-14-2025 [facility] 12/25/2024 Drake Petty, a [...] Diabetes Paternal Grandmother ADD / ADHD Brother Slaughters The following portions of the patient's history [...] or community referral: none (more content not included)...[facility]04-14-2025 History of Present illness Narrative* [...] Diabetes Paternal Grandmother ADD / ADHD Brother Slaughters The following portions of the patient's history [...] none Anna Fuentes MD documented in this [id number] History of Present illness Narrative* Antonio Lopez PA-C - 11/09/2024 12:50 PM EST [facility] CAROL NOTE: Name: Drake Petty, 29 y.o. CSN:[id number] PCP: Anand Cooley, ALL: No Known Allergies [...] states sx started Wednesday. ) leaving for [place] soon for business trip, would like this [...] week, then inject 1.8 mg every day clidoujmbooisiy-ijmqazqpg-PM 2-30-10 mg/5 mL syrup Take 5 mL [...] Resource Strain: Low Risk (07/21/2023) Received from [facility] Overall Financial Resource Strain (CARDIA) Difficulty of Paying Living Expenses: Not hard at all Food Insecurity: No Food Insecurity (07/21/2023) Received from [facility] Hunger Vital Sign Worried About Running Out of Food in the Last Year: Never true Ran Out of Food in the Last Year: Never true Transportation Needs: No Transportation Needs (07/21/2023) Received from [facility] PRAPARE - Transportation Lack of Transportation (Medical): No Lack of Transportation (Non-Medical): No Physical Activity: Inactive (06/17/2022) Received from [facility] Exercise Vital Sign Days of Exercise per Week: 0 days Minutes of Exercise per Session: 0 min Stress: Stress Concern Present (06/17/2022) Received from [facility] [employer] [place] [employer] - Occupational Stress Questionnaire Feeling of Stress : To some extent Social Connections: Moderately Isolated (06/17/2022) Received from [facility] Social Connection and Isolation Panel [NHANES] Frequency of Communication with Friends and Family: More than three times a week Frequency of Social Gatherings with Friends and Family: Three times a week Attends Yarsanism Services: Never Active Member of Clubs or Organizations: No Attends Club or Organization Meetings: Never Marital Status: Intimate Partner Violence: Not At Risk (06/17/2022) Received from [facility] Humiliation, Afraid, Rape, and Kick questionnaire Fear of Current or Ex-Partner: No Emotionally Abused: No Physically Abused: No Sexually Abused: No Housing Stability: Low Risk (06/17/2022) Received from [facility] Housing Stability Vital Sign Unable to [...] flight. Antonio Lopez PA-C Advanced Practice Provider [facility] Please note: While the patient may or may not have received printed discharge paperwork, all relevant medical findings, test results, and treatment details are accessible through the electronic medical record system. The patient is encouraged to review their chart via the patient portal for comprehensive information and follow-up instructions. documented in this [facility] Work Phone: [phone] 512-787109-06-2024 History of Present illness Narrative* Sussy Degroot MA - 05/19/2024 12:43 PM EDT Images from the original note were not included. This [facility] rn house supervisor attempted to contact patient regarding referral to BHI program placed by PCP at request of [facility]. The patient did not answer. Voice mail message was left with request for return call.THIRD and final attempt. [phone] Behavioral Health Screenings: 09/01/2023 8:00 AM 03/06/2024 1:37 PM GABRIELA-7 GABRIELA-7 Score 3 10 09/25/2019 5:00 PM PHQ-9 PHQ-9 Total Score 6 documented in this [id number] Evaluation + Plan note* Assessment & Plan Note - Keyla Meneses CNP - 05/18/2024 9:13 AM EDT Associated Problem(s): Anxiety and depression Acute on chronic. Sub-optimal control Stop pristiq given worsening symptoms. Increase buspar dose Refer to psychiatry Encouraged to schedule with counseling Discussed hospital precautions [id number] Miscellaneous Notes* Assessment & Plan Note - Keyla Meneses CNP - 05/18/2024 9:13 AM EDTAssociated Problem(s): Anxiety and depression Acute on chronic. Sub-optimal control Stop pristiq given worsening symptoms. Increase buspar dose Refer to psychiatry Encouraged to schedule with counseling Discussed hospital precautions documented in this [id number] Instructions* Patient Instructions* Maria Antonia Ayala LPN - 05/18/2024 8:07 AM EDT Feedback Our goal is to provide you with exceptional patient care, and we strive to do this for every patient, every visit. Since we care about you and your experience, you may receive a patient satisfaction survey in the mail, via email or text message from [employer]. We truly welcome your feedback, positive and [...] call at or send the provider a [employer] message and we will be happy to assist. Advanced Imaging (MRI, CT, etc.) If your provider ordered advanced imaging during your visit today, you will be contacted by [facility] Central Scheduling. If you would prefer [...] concerned about them, you will receive a Location Labst message with these results. If your labs are abnormal or critical, you will receive a phone call with your results. If you have not heard anything about your lab results after 5 business days, please give our office a call at or send the provider a [employer] message and we will be happy to [...] call at or send the provider a Location Labst message and allow up to 2 business days for us to complete this. If your insurance requires your medication(s) to be prior authorized, we will work with your insurance company to get these medication(s) prior authorized for you. Please allow up to 7-10 business days for this to be completed. cocone is a wonderful way to communicate with your provider and often allows for quicker response times compared to calling our office. Please consider sending your provider a [employer] message with your non-urgent questions, medication refill requests, or even to schedule an appointment. Please do not use [employer] to send any messages requiring urgent or [...] speak to the provider on-call or call 181. Important Numbers Billing Questions or MyChart Support or Medical Financial Assistance Central Scheduling or Thank you for choosing [facility] for your healthcare needs documented in this [id number] History of Present illness Narrative* Keyla Meneses, [...] is not in the moment. Referral placed [facility]. Per chart review, patient has yet to [...] specialist office contacts you. documented in this [id number] History of Present illness Narrative* Sussy Degroot MA - 05/05/2024 4:28 PM EDT Images from the original note were not included. This [facility] rn house supervisor attempted to contact patient regarding referral to BHI program placed by PCP at request of [facility]. The patient did not answer. Voice mail message was left with request for return call.SECOND attempt. [phone] Behavioral Health Screenings: 09/01/2023 8:00 AM 03/06/2024 1:37 PM GABRIELA-7 GABRIELA-7 Score 3 10 09/25/2019 5:00 PM PHQ-9 PHQ-9 Total Score 6 documented in this [id number] History of Present illness Narrative* Sussy Degroot MA - 04/28/2024 1:46 PM EDT Images from the original note were not included. This [facility] rn house supervisor attempted to contact patient regarding referral to BHI program placed by PCP at request of [facility]. The patient did not answer. Voice mail message was left with request for return call.First attempt. [phone] Behavioral Health Screenings: 09/01/2023 8:00 AM 03/06/2024 1:37 PM GABRIELA-7 GABRIELA-7 Score 3 10 09/25/2019 5:00 PM PHQ-9 PHQ-9 Total Score 6 documented in this [id number] Evaluation + Plan note* Assessment & Plan [...] flag symptoms discussed Referral placed to counseling [id number] Miscellaneous Notes* Assessment & Plan Note - [...] Referral placed to counseling documented in this [id number] History of Present illness Narrative* Keyla Meneses [...] Relevant Orders Ambulatory Ref to [place] [facility] Air Lift Operator For any new medication prescribed today, patient was educated about indications for the medication,how to take the medication and potential side effects of the medication. Referral was put in today, please allow 1-2 weeks until the specialist office contacts you. Return in about 2 years (around 04/27/2026) for Recheck - anxiety/depression . documented in this [id number] Instructions* Patient Instructions* Maria Antonia Ayala LPN - 04/27/2024 7:53 AM EDT Feedback Our goal is to provide you with exceptional patient care, and we strive to do this for every patient, every visit. Since we care about you and your experience, you may receive a patient satisfaction survey in the mail, via email or text message from [employer]. We truly welcome your feedback, positive and [...] call at or send the provider a Location Labst message and we will be happy to assist. Advanced Imaging (MRI, CT, etc.) If your provider ordered advanced imaging during your visit today, you will be contacted by [facility] Central Scheduling. If you would prefer [...] concerned about them, you will receive a [employer] message with these results. If your labs are abnormal or critical, you will receive a phone call with your results. If you have not heard anything about your lab results after 5 business days, please give our office a call at or send the provider a Location Labst message and we will be happy to [...] call at or send the provider a [employer] message and allow up to 2 business days for us to complete this. If your insurance requires your medication(s) to be prior authorized, we will work with your insurance company to get these medication(s) prior authorized for you. Please allow up to 7-10 business days for this to be completed. cocone is a wonderful way to communicate with your provider and often allows for quicker response times compared to calling our office. Please consider sending your provider a [employer] message with your non-urgent questions, medication refill requests, or even to schedule an appointment. Please do not use [employer] to send any messages requiring urgent or [...] speak to the provider on-call or call 121. Important Numbers Billing Questions or MyChart Support or Medical Financial Assistance Central Scheduling or Thank you for choosing [facility] for your healthcare needs documented in this [id number] Evaluation + Plan note* Assessment & Plan Note - Keyla Meneses CNP - 04/06/2024 10:25 AM EDT Associated Problem(s): Anxiety Chronic. Poorly controlled. Increase prozac to 20 mg. Obtain Gene Sight Encouraged exploring counseling Continue to optimize healthy habits - sleep/diet/exercise Continue stress relieving techniques [id number] Miscellaneous Notes* Assessment & Plan Note - Keyla Meneses CNP - 04/06/2024 10:25 AM EDTAssociated Problem(s): Anxiety Chronic. Poorly controlled. Increase prozac to 20 mg. Obtain Gene Sight Encouraged exploring counseling Continue to optimize healthy habits - sleep/diet/exercise Continue stress relieving techniques documented in this [id number] History of Present illness Narrative* Keyla Meneses [...] for follow-up anxiety . documented in this [id number] Evaluation + Plan note* Assessment & Plan Note - Keyla Meneses CNP - 03/06/2024 2:16 PM EDT Associated Problem(s): Anxiety Chronic. Poorly controlled Most recent labs reviewed Start prozac. Discussed counseling options, if interested Optimize healthy habits - sleep/diet/exercise Continue cognitive behavioral stress relief techniques [id number] Miscellaneous Notes* Assessment & Plan Note - Keyla Meneses CNP - 03/06/2024 2:16 PM EDTAssociated Problem(s): Anxiety Chronic. Poorly controlled Most recent labs reviewed Start prozac. Discussed counseling options, if interested Optimize healthy habits - sleep/diet/exercise Continue cognitive behavioral stress relief techniques documented in this [id number] History of Present illness Narrative* Keyla Meneses [...] other people? Somewhat difficult documented in this [id number] History of Present illness Narrative* SPENCER Donohue [...] each nostril daily 11.1 mL 0 Lancets ([employer] Plus Pmbwvj12Z) Misc Use with glucometer to check BS every morning and then two hours after each meal. (Patient not taking: Reported on 09/21/2022) 120 Each 3 predniSONE 20 MG tablet Take 3 tabs daily x2 days then 2 tabs daily x2 days then 1 tab daily x2 days PO as directed (Patient not taking: Reported on 10/26/2023) 12 tablet 0 zbiffyianmzhhft-znyhgfwfxywmszir-poffGHZdome (Capmist DM) 60-15-400 MG tablet Take 1 [...] Resource Strain: Low Risk (07/21/2023) Received from [facility] Overall Financial Resource Strain (CARDIA) Difficulty of Paying Living Expenses: Not hard at all Food Insecurity: No Food Insecurity (07/21/2023) Received from [facility] Hunger Vital Sign Worried About Running Out of Food in the Last Year: Never true Ran Out of Food in the Last Year: Never true Transportation Needs: No Transportation Needs (07/21/2023) Received from [facility] PRAPARE - Transportation Lack of Transportation (Medical): No Lack of Transportation (Non-Medical): No Physical Activity: Inactive (06/17/2022) Received from [facility] Exercise Vital Sign Days of Exercise per Week: 0 days Minutes of Exercise per Session: 0 min Stress: Stress Concern Present (06/17/2022) Received from [facility] [place] [employer] - Occupational Stress Questionnaire Feeling of Stress : To some extent Social Connections: Moderately Isolated (06/17/2022) Received from [facility] Social Connection and Isolation Panel [NHANES] Frequency of Communication with Friends and Family: More than three times a week Frequency of Social Gatherings with Friends and Family: Three times a week Attends Yarsanism Services: Never Active Member of Clubs or Organizations: No Attends Club or Organization Meetings: Never Marital Status: Intimate Partner Violence: Not At Risk (06/17/2022) Received from [facility] Humiliation, Afraid, Rape, and Kick questionnaire Fear of Current or Ex-Partner: No Emotionally Abused: No Physically Abused: No Sexually Abused: No Housing Stability: Low Risk (06/17/2022) Received from [facility] Housing Stability Vital Sign Unable to [...] plan. SPENCER Donohue 12/17/2023 [facility] History of Present illness Narrative* [...] Reported on 07/30/2022) 30 tablet 0 Lancets ([employer] Delica Plus Udjlci89E) Misc Use with glucometer to check BS [...] taking: Reported on 10/26/2023) 12 tablet 0 xjhmupnofknnfwl-frfptesvamagrgpf-ijetHRGcmcr (Capmist DM) 60-15-400 MG tablet Take 1 [...] Resource Strain: Low Risk (07/21/2023) Received from [facility] Overall Financial Resource Strain (CARDIA) Difficulty of Paying Living Expenses: Not hard at all Food Insecurity: No Food Insecurity (07/21/2023) Received from [facility] Hunger Vital Sign Worried About Running Out of Food in the Last Year: Never true Ran Out of Food in the Last Year: Never true Transportation Needs: No Transportation Needs (07/21/2023) Received from [facility] PRAPARE - Transportation Lack of Transportation (Medical): No Lack of Transportation (Non-Medical): No Physical Activity: Inactive (06/17/2022) Received from [facility] Exercise Vital Sign Days of Exercise per Week: 0 days Minutes of Exercise per Session: 0 min Stress: Stress Concern Present (06/17/2022) Received from [facility] [place] [employer] - Occupational Stress Questionnaire Feeling of Stress : To some extent Social Connections: Moderately Isolated (06/17/2022) Received from [facility] Social Connection and Isolation Panel [NHANES] Frequency of Communication with Friends and Family: More than three times a week Frequency of Social Gatherings with Friends and Family: Three times a week Attends Yarsanism Services: Never Active Member of Clubs or Organizations: No Attends Club or Organization Meetings: Never Marital Status: Intimate Partner Violence: Not At Risk (06/17/2022) Received from [facility] Humiliation, Afraid, Rape, and Kick questionnaire Fear of Current or Ex-Partner: No Emotionally Abused: No Physically Abused: No Sexually Abused: No Housing Stability: Low Risk (06/17/2022) Received from [facility] Housing Stability Vital Sign Unable to [...] symptoms. SPENCER Donohue 12/07/2023 [facility] History of Present illness Narrative* [...] Reported on 07/30/2022) 30 tablet 0 Lancets ([employer]right[employer] Delica Plus Wjuvnx02C) Misc Use with glucometer to check BS every morning and then two hours after each meal. (Patient not taking: Reported on 09/21/2022) 120 Each 3 predniSONE 20 MG tablet Take 3 tabs daily x2 days then 2 tabs daily x2 days then 1 tab daily x2 days PO as directed (Patient not taking: Reported on 10/26/2023) 12 tablet 0 iqgdreirjkisaog-wnqhbhzdoxpnbvvr-mdmdLBFmpqb (Capmist DM) 60-15-400 MG tablet Take 1 [...] Resource Strain: Low Risk (07/21/2023) Received from [facility] Overall Financial Resource Strain (CARDIA) Difficulty of Paying Living Expenses: Not hard at all Food Insecurity: No Food Insecurity (07/21/2023) Received from [facility] Hunger Vital Sign Worried About Running Out of Food in the Last Year: Never true Ran Out of Food in the Last Year: Never true Transportation Needs: No Transportation Needs (07/21/2023) Received from [facility] PRAPARE - Transportation Lack of Transportation (Medical): No Lack of Transportation (Non-Medical): No Physical Activity: Inactive (06/17/2022) Received from [facility] Exercise Vital Sign Days of Exercise per Week: 0 days Minutes of Exercise per Session: 0 min Stress: Stress Concern Present (06/17/2022) Received from [facility] [place] [employer] - Occupational Stress Questionnaire Feeling of Stress : To some extent Social Connections: Moderately Isolated (06/17/2022) Received from [facility] Social Connection and Isolation Panel [NHANES] Frequency of Communication with Friends and Family: More than three times a week Frequency of Social Gatherings with Friends and Family: Three times a week Attends Yarsanism Services: Never Active Member of Clubs or Organizations: No Attends Club or Organization Meetings: Never Marital Status: Intimate Partner Violence: Not At Risk (06/17/2022) Received from [facility] Humiliation, Afraid, Rape, and Kick questionnaire Fear of Current or Ex-Partner: No Emotionally Abused: No Physically Abused: No Sexually Abused: No Housing Stability: Low Risk (06/17/2022) Received from [facility] Housing Stability Vital Sign Unable to [...] . Physical Exam Exam conducted with a offset machine operator present. Constitutional: General: She is not in [...] pap done - [facility] CYTOLOGY-PHARMACOLOGIST, LIQUID BASED; Future 2. Cervical cancer screening Pap done. - [facility] CYTOLOGY-PHARMACOLOGIST, LIQUID BASED; Future Return in about 1 year (around 10/26/2024) for with TK, Annual Exam. The documentation within this encounter was likely aided with Dragon, and electronic escort patients device. Please excuse any errors or omissions that may not have been recognized at the time of this encounter. documented in [facility] History of Present illness Narrative* Jelena Walter APRN-MED - 09/29/2023 4:15 PM EST HPI [place] female 1995 presents to the [facility] with Chief Complaint Patient presents with Sore Throat Cough Nasal Congestion Had symptoms for p7lidde Since with nasal congestion, sore throat, cough, [...] (Patient not taking: Reported on 07/30/2022) Lancets ([employer] Delica Plus Lnvqto54M) Misc Use with glucometer to check BS every morning and then two hours after each meal. (Patient not taking: Reported on 09/21/2022) predniSONE 20 MG tablet Take 3 tabs daily x2 days then 2 tabs daily x2 days then 1 tab daily x2 days PO as directed xyjkjnxlkempnyr-xwdkqehfhkdbfwtx-qvavKBXplvv (Capmist DM) 60-15-400 MG tablet Take 1 [...] file Stress: No Stress Concern Present (11/24/2021) [place] [employer] - Occupational Stress Questionnaire Feeling of Stress : Not at all Social Connections: Unknown (11/24/2021) Social Connection and Isolation Panel [NHANES] Frequency of Communication with Friends and Family: Once a week Frequency of Social Gatherings with Friends and Family: Not on file Attends Yarsanism Services: Not on file Active Member of [...] 108 (90 Base) MCG/ACT Aero Soln inhaler sdoqwvupuelidjl-vdlzwylpqnriaflm-hbktOWUfqku (Capmist DM) 60-15-400 MG tablet Azithromycin 250 [...] plan. NATASHA Solis 09/29/2023 documented in [facility] History of Present illness Narrative* [...] if acne resolves .akw documented in this [id number] History of Present illness Narrative* Татьяна Brooke, ASSOCIATE PROFESSOR OF FORESTRY - 07/21/2023 3:30 PM EST Images from [...] other people? Somewhat difficult documented in this [id number] History of Present illness Narrative* SPENCER Donohue - 01/05/2023 9:30 AM EDT URGENT CARE eNCOUnter CHIEF COMPLAINT Sore Throat (Strep + on , prescribed penicillin not better. ), Cough, and Ear Pain [facility] Drake Petty is a 27 y.o. [...] 30 tablet 0 Lancets (OneTouch Delica Plus Mmbnqa68Z) [facility] Use with glucometer to check [...] worsening. SPENCER Donohue 01/05/2023 documented in this [facility]02-07-2023 History of Present illness Narrative* [...] within this encounter was likely aided with [employer], and electronic escort patients device. Please excuse any errors or omissions that may not have been recognized at the time of this encounter. documented in [facility]12-[facility]22 Miscellaneous Notes* Note - Janes Mcgovern RN - 08/13/2022 4:45 PM EST This note was copied from a baby's chart. Discharge instructions reviewed with parents at bedside. Parents educated on care, safe sleep, signs and symptoms to report to press tender short goods. Reinforced education about safe sleep and SIDS. [...] pump use/cleaning/frequency, breastmilk storage, handling, nipple care, [facility] Hotline, [facility] support group, formula preparation, cronobacter, positioning, [...] expression. Lanolin provided with instructions. Patient states it web development consultant told her she should be using [...] rooming-in facilitated Parent/Child Attachment Promotion: attachment promoted aoic-jo-ptyc positioning promoted parent-child separation minimized positive reinforcement provided role responsibility promoted rooming-in promoted jzfk-uj-ogmy contact encouraged strengths emphasized taught/modeled caring behavior [...] Taken 08/12/20221999 Parent/Child Attachment Promotion: attachment promoted bphn-qv-rkkw positioning promoted parent-child separation minimized positive reinforcement provided role responsibility promoted rooming-in promoted shqs-oe-kezu contact encouraged strengths emphasized taught/modeled caring behavior [...] rooming-in facilitated Parent/Child Attachment Promotion: attachment promoted ivhd-ra-gajb positioning promoted parent-child separation minimized positive reinforcement provided role responsibility promoted rooming-in promoted eqbm-ws-qaon contact encouraged strengths emphasized taught/modeled caring behavior [...] Taken 08/12/20221999 Parent/Child Attachment Promotion: attachment promoted zelk-ah-eskn positioning promoted parent-child separation minimized positive reinforcement provided role responsibility promoted rooming-in promoted iueo-ke-pxqf contact encouraged strengths emphasized taught/modeled caring behavior [...] well See below for weight and Apgars [facility] [[id number]] Delivery () Delivery date/time: 08/11/2022 5:36 PM [...] ambulates to room 213. documented in [facility]12-[facility] Obstetrics Note* Note - Janes Mcgovern RN - 08/13/2022 4:45 PM EST This note was copied from a baby's chart. Discharge instructions reviewed with parents at bedside. Parents educated on care, safe sleep, signs and symptoms to report to press tender short goods. Reinforced education about safe sleep and SIDS. Mother verbalizes understanding. Mother of denies having any questions at this time. Infants VSWDL. Exclusively fed breast milk. Infant stooling and voiding without difficulty. Parents educated and encouraged to schedule follow up appointment tomorrow or as soon as possible. Infant carried by FOB in car seat. Car seat clicked into base in car. [id number] Obstetrics Note* Note - Janes Mcgovern RN - 08/13/2022 12:00 PM EST This note was copied from a baby's chart. Assessment completed at this time. Infant resting in crib. Chest rise noted on . Mouth and nares clear. Mother and infant VS WDL. Infant swaddled and resting in crib after assessment. Mother and father have no questions or concerns at this time. [facility] [id number] Obstetrics Note* Note - Minal Lee - [...] other feed, right side. Latch on left [employer]12-01-2022 Obstetrics Note* Note - Janes Mcgovern RN - 08/13/2022 8:00 AM EST This note was copied from a baby's chart. Head to toe assessments performed on mother and at this time. Mother denies any pain and showing no signs of distress. resting in crib swaddled. VS WDL on mother and . Mother had no further concerns or questions. Call light within reach. [facility]12-01-2022 Hospital course Narrative* Lemuel Lee MD - [...] w/Device KIT As directed. OneTouch Delica Plus Gauapg40O MISC Use with glucometer to check BS [...] Lemuel Lee MD [address] [facility] [id number] Schedule an appointment as soon as possible for a visit in 6 week(s) Routine Post Exam documented in this [facility]12-01-2022 History of Present illness Narrative* [...] release tomorrow 2. Breast-feeding documented in [facility]12-[facility] Obstetrics Note* Note - Janes [...] diaper change to observe the circumsicion care. [facility]12-01-2022 Note* Nursing Notes - Eneida Wright RN - 08/13/2022 3:48 AM EST Patient , teary eyed states she is exhausted and only had 2 hours of sleep yesterday. Problem solving facilitated and discussed options given to calm and give expressed milk afterfeeding. Patient instructed to call RN if needing assistance with infant calming techniques. Motherverbalizes an understanding. [facility]12-01-2022 Obstetrics Note* Note - Eneida Wright [...] expression. Lanolin provided with instructions. Patient states it web development consultant told her she should be using 21 mm flanges but patient was using spectra s1 and doesn't have that size. 21 mm size flanges provided with pumping kit. Instructed on use of hand pump and electric breast pump. Patient verbalizes an understanding. [facility]11-30-2022 Note* Plan of Care - Eneida [...] rooming-in facilitated Parent/Child Attachment Promotion: attachment promoted dowb-kj-mkuj positioning promoted parent-child separation minimized positive reinforcement provided role responsibility promoted rooming-in promoted aabr-lx-otbo contact encouraged strengths emphasized taught/modeled caring behavior [...] Taken 08/12/20221999 Parent/Child Attachment Promotion: attachment promoted vjay-wx-swym positioning promoted parent-child separation minimized positive reinforcement provided role responsibility promoted rooming-in promoted qllx-sc-mxsi contact encouraged strengths emphasized taught/modeled caring behavior [...] rooming-in facilitated Parent/Child Attachment Promotion: attachment promoted anyb-na-sdzw positioning promoted parent-child separation minimized positive reinforcement provided role responsibility promoted rooming-in promoted vbvn-jz-vfvc contact encouraged strengths emphasized taught/modeled caring behavior [...] Taken 08/12/20221999 Parent/Child Attachment Promotion: attachment promoted yomz-iw-iptb positioning promoted parent-child separation minimized positive reinforcement provided role responsibility promoted rooming-in promoted mztx-vo-vqdn contact encouraged strengths emphasized taught/modeled caring behavior [...] separation minimized encouragement offered diary/feeding log utilized [facility]11-30-2022 Obstetrics Note* Note - Laureen Garza RN - 08/12/2022 7:15 PM EST Bedside report with Tanja Wright RN. Mother resting in bed with no distress noted. swaddled andsleeping in open crib. [facility]11-30-2022 Obstetrics Note* Note - Laureen Garza RN - 08/12/2022 5:00 PM EST Assessments done at this time. Dinner ordered. Parents deny needs. Call light in reach. [facility]11-30-2022 Obstetrics Note* Note - Laureen Garza RN - 08/12/2022 4:45 PM EST Mother with no distress noted. Denies nipple pain. [id number] Obstetrics Note* Note - Minal Lee - [...] to feed on demand, skin to skin [facility] [employer] [id number] Obstetrics Note* Note - Laureen Garza RN - 08/12/2022 1:00 PM EST Mother holding infant and states she just finished for 20 minutes. Assessments done at this time. Pt eating lunch. Denies needs at this time. Call light in reach. [facility]* Nursing Notes - HENRY Holcomb - 08/12/2022 12:31 PM EST Water provided. [facility] [employer] [id number] Obstetrics Note* Note - HENRY Holcomb - 08/12/2022 12:00 PM EST Help me grow, declined. [facility] [employer] [id number] Obstetrics Note* Note - Laureen Garza RN - 08/12/2022 10:00 AM EST Viral Lee at bedside to assist with . [facility]11-30-2022 Obstetrics Note* Note - Minal Lee [...] on demand, skin to skin, monitor eliminations [facility]11-30-2022 Note* Plan of Care - Laureen [...] of care (reference (Adult,Obstetrics,Pediatric) CPG). Outcome: Ongoing [facility]11-30-2022 Obstetrics Note* Note - Laureen Garza RN - 08/12/2022 8:30 AM EST Mother resting in bed holding infant. Assessments done at this time. IV removed. No distress noted in mother or infant. Mother states she is going to breastfeed infant and feels comfortable latching infant. Fresh water provided. Call light in reach. [facility]11-30-2022 Obstetrics Note* Note - Olivia Blanco [...] any needs. Call light within mother's reach. [facility]11-30-2022 Obstetrics Note* Note - Olivia Blanco [...] any needs. Call light within mother's reach. [facility] [employer] [id number] Obstetrics Note* Note - Olivia Blanco RN - 08/11/2022 11:40 PM EST This note was copied from a baby's chart. New blood sugar obtained on . 's blood sugar 47. Will continue to monitor. Assessment and vitals obtained on infant and mother. lying comfortably in open crib. Infant shows no signs of distress. Mother denies any needs. Call light within mother's reach. [facility] [employer] [id number] Obstetrics Note* Note - Olivia Blanco RN [...] minutes after the completion of the feed. [facility] [employer] [id number] Obstetrics Note* Note - Olivia Blanco RN - 08/11/2022 8:30 PM EST This note was copied from a baby's chart. and mother moved over to room #204. placed on far side of room away from open doorway. Infant swaddled and lying in open crib. Infant shows no signs of distress. Mother denies any needs. Call light within mother's reach. [facility]11-29-2022 Obstetrics Note* Note - Olivia Blanco RN - 08/11/2022 7:00 PM EST This note was copied from a baby's chart. Report received from Shivam Savage RN. [facility]11-29-2022 Labor and delivery summary note* L&D [...] well See below for weight and Apgars [facility] [[id number]] Delivery ([place]) Delivery date/time: 08/11/2022 5:36 PM Sex: Male [...] Total: Shoulder Dystocia Shoulder dystocia present?: No [facility]11-29-2022 Note* Nursing Notes - Citlaly Savage RN - 08/11/2022 5:[address] Lee at bedside [facility]11-29-2022 Note* Nursing Notes - Citlaly Savage RN - 08/11/2022 4:[address] Lee calls at this time requesting update on patient. Updated Dr. Lee that patient is complete. Dr. Lee instructs this RN to continue practice pushing with patient. [facility]11-29-2022 Note* Nursing Notes - Citlaly [...] practice push to see where baby moves. [facility]11-29-2022 Note* Nursing Notes - Nannette Cardoza RN - 08/11/2022 2:[address] Lee calls back and gives order to restart pitocin at 14 in 10-15 minutes. [facility]11-29-2022 Note* Nursing Notes - Nannette Cardoza RN - 08/11/2022 2:43 PM EST Call placed to Dr. Lee in regards to prolong decel and interventions such as shutting off pitocin, position changes, vag check, oxygen and LR bolus. Will review strip and call back. [facility]11-29-2022 Note* Nursing Notes - Citlaly Savage RN - 08/11/2022 1:[address] Lee of patient's recent SVE. Dr. Lee instructs to check patient again in aboutan hour. [facility]11-29-2022 Note* Nursing Notes - Citlaly Savage RN - 08/11/2022 1:[address] Lee at bedside [facility]11-29-2022 Note* Nursing Notes - Citlaly Savage RN - 08/11/2022 12:42 PM EST Raven MANSFIELD at bedside for epidural placement [facility]11-29-2022 Note* Nursing Notes - Citlaly Savage RN - 08/11/2022 12:07 PM EST Assessment completed at this time, refer to flow sheet. Patient rating pain a 7/10 and requesting nubain at this time. Patient denies current needs. [id number] Note* Nursing Notes - Citlaly Savage RN - 08/11/2022 9:[address] Lee at bedside [facility]* Nursing Notes - Citlaly Savage RN - 08/11/2022 7:00 AM EST Assessment completed at this time, refer to flow sheet. Patient in bed, no distress noted. Patient denies current pain. Plan of care reviewed with patient, patient denies any questions at this time. Call light within reach. [facility] History and physical note* Lemuel Lee MD [...] time. External monitor: Baseline reassuring with good qjfi-ye-ucxj variability, accelerations noted, no decelerations, contractions every 3-4 minutes. Category 1 Assessment and Plan: 1. Intrauterine at 38 weeks 5 days 2. Favorable cervix at term 3. Gestational diabetes Plan: We will proceed with induction. Risks and benefits discussed and the patient desires to proceed. [facility] [employer] [id number] Note* Certification - Lemuel Lee MD - 08/11/2022 6:30 AM EST I certify that this patient requires inpatient services at this time. I anticipate the expected length of stay will include at least two midnights. Current treatment plan includes induction and delivery. Plans for post hospitalization care will be discharge to home. [facility]11-29-2022 History and physical note* Lemuel Lee MD [...] time. External monitor: Baseline reassuring with good sitp-wk-yocl variability, accelerations noted, no decelerations, contractions every 3-4 minutes. Category 1 Assessment and Plan: 1. Intrauterine at 38 weeks 5 days 2. Favorable cervix at term 3. Gestational diabetes Plan: We will proceed with induction. Risks and benefits discussed and the patient desires to proceed. documented in this [facility]11-29-2022 Note* Nursing Notes - Anusha Voss - 08/11/2022 6:[address] Lee at bedside to break water, perform a cervical exam, and place FSE. [facility] [employer] [id number] Note* Nursing Notes - Margot Arana RN - 08/11/2022 5:[address] Lee is OK with 0.9% NS for continuous IV fluids. [facility] [employer] [id number] Note* Nursing Notes - Anusha Voss - 08/11/2022 5:00 AM EST Assessment completed at this time. Pt resting comfortably in bed with equal chest expansion and unlabored breathing. Call light within reach. [facility] [employer] [id number] Note* Nursing Notes - Margot Arana RN - 08/11/2022 3:55 AM EST Urine and covid collected. Pt oriented to room. [facility] [employer] [id number] Note* Nursing Notes - Margot Arana RN - 08/11/2022 3:45 AM EST Patient ambulates onto unit. Height and weight obtained. Patient ambulates to room 213. [facility] [employer] [id number] History of Present illness Narrative* Ariella Nowak [...] Induction scheduled for 08/11/22. [facility] NoteLemuel Lee MD 08/05/2022 8:14 AM Procedure: Non-Stress Test Indication: Diabetes in Findings: NST: Reactive with GBTBV, + Accelerations, No decelerations. No regular contractions. Cat 1.[facility] Procedure note* Lemuel Lee MD - 08/05/2022 7:40 AM ESTAssociated Order(s): [place] NON-STRESS TEST Pre-Procedure Diagnose(s): Diet controlled gestational diabetes mellitus (GDM) in third trimester Post-Procedure Diagnose(s): Diet controlled gestational diabetes mellitus (GDM) in third trimester Procedure: Non-Stress Test Indication: Diabetes in Findings: NST: Reactive with GBTBV, + Accelerations, No decelerations. No regular contractions. Cat1. [facility]11-23-20[facility] Procedure note* Lemuel Lee MD - 08/05/2022 7:40 AM ESTAssociated Order(s): [place] NON-STRESS TEST Pre-Procedure Diagnose(s): Diet controlled gestational diabetes mellitus (GDM) in third trimester Post-Procedure Diagnose(s): Diet controlled gestational diabetes mellitus (GDM) in third trimester Procedure: Non-Stress Test Indication: Diabetes in Findings: NST: Reactive with GBTBV, + Accelerations, No decelerations. No regular contractions. Cat1. documented in this [facility]11-17-2022 History of Present illness Narrative* [...] on week of 08/10/22. documented in this [facility]11-17-2022 NoteLemuel Lee MD 07/30/2022 3:57 PM Procedure: Non-Stress Test Indication: Diabetes in Findings: NST: Reactive with GBTBV, + Accelerations, No decelerations. No regular contractions. Cat 1. [facility]11-17-[facility] Procedure note* Lemuel Lee MD - 07/30/2022 3:10 PM ESTAssociated Order(s): [place] NON-STRESS TEST Pre-Procedure Diagnose(s): Diet controlled gestational diabetes mellitus (GDM) in third trimester Post-Procedure Diagnose(s): Diet controlled gestational diabetes mellitus (GDM) in third trimester Procedure: Non-Stress Test Indication: Diabetes in Findings: NST: Reactive with GBTBV, + Accelerations, No decelerations. No regular contractions. Cat1. [facility]11-17-[facility] Procedure note* Lemuel Lee MD - 07/30/2022 3:10 PM ESTAssociated Order(s): [place] NON-STRESS TEST Pre-Procedure Diagnose(s): Diet controlled gestational diabetes mellitus (GDM) in third trimester Post-Procedure Diagnose(s): Diet controlled gestational diabetes mellitus (GDM) in third trimester Procedure: Non-Stress Test Indication: Diabetes in Findings: NST: Reactive with GBTBV, + Accelerations, No decelerations. No regular contractions. Cat1. documented in this [facility]11-10-2022 History of Present illness Narrative* [...] FAZAL. NST reactive today. documented in this [facility]11-10-2022 Abiola Lee MD 07/23/2022 9:33 AM Procedure: Non-Stress Test Indication: Diabetes in Findings: NST: Reactive with GBTBV, + Accelerations, No decelerations. No regular contractions. Cat 1.[facility]11-10-[facility] Procedure note* Lemuel Lee MD - 07/23/2022 9:20 AM ESTAssociated Order(s): [place] NON-STRESS TEST Pre-Procedure Diagnose(s): Gestational diabetes mellitus (GDM) affecting third Post-Procedure Diagnose(s): Gestational diabetes mellitus (GDM) affecting third Procedure: Non-Stress Test Indication: Diabetes in Findings: NST: Reactive with GBTBV, + Accelerations, No decelerations. No regular contractions. Cat1. [facility]11-10-[facility] Procedure note* Lemuel Lee MD - 07/23/2022 9:20 AM ESTAssociated Order(s): [place] NON-STRESS TEST Pre-Procedure Diagnose(s): Gestational diabetes mellitus (GDM) affecting third Post-Procedure Diagnose(s): Gestational diabetes mellitus (GDM) affecting third Procedure: Non-Stress Test Indication: Diabetes in Findings: NST: Reactive with GBTBV, + Accelerations, No decelerations. No regular contractions. Cat1. [facility] History of Present illness Narrative* [...] Females: Last Mammogram: N/A [facility] Dexa >65: N/A Hx of falls? [...] people? Somewhat difficult - documented in this [id number] History of Present illness Narrative* Ariella Nowak [...] this to be muscular. [facility] NoteSNATASHA Alicea 07/17/2022 12:21 PM Procedure: Non-Stress Test Indication: Diabetes in Findings: NST: Reactive with GBTBV, + Accelerations, No decelerations. No regular contractions. Cat 1. [facility]11-04-2022 Procedure note* NATASHA Garcia - 07/17/2022 11:20 AM EDTAssociated Order(s): [place] NON-STRESS TEST Procedure(s): [place] NON-STRESS TEST Pre-Procedure Diagnose(s): Supervision of high risk in third trimester; Diet controlled gestational diabetes mellitus (GDM) in third trimester Post-Procedure Diagnose(s): Supervision of high risk in third trimester; Diet controlled gestational diabetes mellitus (GDM) in third trimester Procedure: Non-Stress Test Indication: Diabetes in Findings: NST: Reactive with GBTBV, + Accelerations, No decelerations. No regular contractions. Cat1. [facility]11-04-[facility]22 Procedure note* NATASHA Garcia - 07/17/2022 11:20 AM EDTAssociated Order(s): [place] NON-STRESS TEST Procedure(s): [place] NON-STRESS TEST Pre-Procedure Diagnose(s): Supervision of high risk in third trimester; Diet controlled gestational diabetes mellitus (GDM) in third trimester Post-Procedure Diagnose(s): Supervision of high risk in third trimester; Diet controlled gestational diabetes mellitus (GDM) in third trimester Procedure: Non-Stress Test Indication: Diabetes in Findings: NST: Reactive with GBTBV, + Accelerations, No decelerations. No regular contractions. Cat1. [facility] History of Present illness Narrative* Shavonne Ba LPN - 07/13/2022 1:00 PM EDT 34.4, OB TX., Patient is 34.4 weeks . Per My Chart message she has right sided rib and under breast pain. Patient was advised she needs seen for an appointment today. OB Tx scheduled per [place]. * Josse Walter MD - 07/13/2022 1:00 PM EDT [facility] [place] 27 y.o. at 34w4d 1. gDM 2. [...] Department Center 07/17/2022 11:00 AM CHIOMA GAL [id number] OB ULTRASOUND, AVG [id number] CHIOMA GAL 07/17/2022 11:20 AM NATASHA Garcia [id number] CHIOMA GAL documented in this [facility]10-27-2022 History of Present illness Narrative* [...] visit. NST reactive today. documented in this [facility]10-27-2022 NoteLemuel Lee MD 07/09/2022 9:06 AM Procedure: Non-Stress Test Indication: Diabetes in Findings: NST: Reactive with GBTBV, + Accelerations, No decelerations. No regular contractions. Cat 1. [facility]10-27-[facility] Procedure note* Lemuel Lee MD - 07/09/2022 9:00 AM EDTAssociated Order(s): [place] NON-STRESS TEST Pre-Procedure Diagnose(s): Diet controlled gestational diabetes mellitus (GDM) in third trimester Post-Procedure Diagnose(s): Diet controlled gestational diabetes mellitus (GDM) in third trimester Procedure: Non-Stress Test Indication: Diabetes in Findings: NST: Reactive with GBTBV, + Accelerations, No decelerations. No regular contractions. Cat1. [facility]10-27-[facility] Procedure note* Lemuel Lee MD - 07/09/2022 9:00 AM EDTAssociated Order(s): [place] NON-STRESS TEST Pre-Procedure Diagnose(s): Diet controlled gestational diabetes mellitus (GDM) in third trimester Post-Procedure Diagnose(s): Diet controlled gestational diabetes mellitus (GDM) in third trimester Procedure: Non-Stress Test Indication: Diabetes in Findings: NST: Reactive with GBTBV, + Accelerations, No decelerations. No regular contractions. Cat1. documented in this [facility]10-17-2022 History of Present illness Narrative* Clara Gorman RN - 06/29/2022 9:30 AM EDT NST done today for GDM. * Lemuel Lee MD - 06/29/2022 9:30 AM EDT Patient doing well. No concerns. 1. GDM: Blood sugars well controlled on no meds. Next HgbA1C and ultrasound at approx 35 weeks. NSTreactive. documented in this [facility]10-17-2022 Abiola Lee MD 06/29/2022 9:59 AM Procedure: Non-Stress Test Indication: Diabetes in Findings: NST: Reactive with GBTBV, + Accelerations, No decelerations. No regular contractions. Cat 1.[facility]10-17-[facility] Procedure note* Lemuel Lee MD - 06/29/2022 9:30 AM EDTAssociated Order(s): [place] NON-STRESS TEST Pre-Procedure Diagnose(s): Gestational diabetes mellitus (GDM) affecting third Post-Procedure Diagnose(s): Gestational diabetes mellitus (GDM) affecting third Procedure: Non-Stress Test Indication: Diabetes in Findings: NST: Reactive with GBTBV, + Accelerations, No decelerations. No regular contractions. Cat1. [facility]10-17-[facility] Procedure note* Lemuel Lee MD - 06/29/2022 9:30 AM EDTAssociated Order(s): [place] NON-STRESS TEST Pre-Procedure Diagnose(s): Gestational diabetes mellitus (GDM) affecting third Post-Procedure Diagnose(s): Gestational diabetes mellitus (GDM) affecting third Procedure: Non-Stress Test Indication: Diabetes in Findings: NST: Reactive with GBTBV, + Accelerations, No decelerations. No regular contractions. Cat1. documented in this [facility]10-13-2022 History of Present illness Narrative* Clara Gorman RN - 06/25/2022 9:30 AM EDT NST done for GDM. * Lemuel Lee MD - 06/25/2022 9:30 AM EDT Patient doing well. No concerns 1. GDM: Blood sugars well controlled on no meds. Next HgbA1C and ultrasound at approx 35 weeks. NSTreactive. documented in this [facility]10-13-2022 Abiola Lee MD 06/25/2022 9:55 AM Procedure: Non-Stress Test Indication: Diabetes in Findings: NST: Reactive with GBTBV, + Accelerations, No decelerations. No regular contractions. Cat 1. [facility]10-[facility] Procedure note* Lemuel Lee MD - 06/25/2022 9:30 AM EDTAssociated Order(s): [place] NON-STRESS TEST Pre-Procedure Diagnose(s): Diet controlled gestational diabetes mellitus (GDM) in third trimester Post-Procedure Diagnose(s): Diet controlled gestational diabetes mellitus (GDM) in third trimester Procedure: Non-Stress Test Indication: Diabetes in Findings: NST: Reactive with GBTBV, + Accelerations, No decelerations. No regular contractions. Cat1. [facility]10-[facility] Procedure note* Lemuel Lee MD - 06/25/2022 9:30 AM EDTAssociated Order(s): [place] NON-STRESS TEST Pre-Procedure Diagnose(s): Diet controlled gestational diabetes mellitus (GDM) in third trimester Post-Procedure Diagnose(s): Diet controlled gestational diabetes mellitus (GDM) in third trimester Procedure: Non-Stress Test Indication: Diabetes in Findings: NST: Reactive with GBTBV, + Accelerations, No decelerations. No regular contractions. Cat1. documented in this [facility]10-06-2022 NoteOB ULTRASOUND PROCEDURE REFERRING PHYSICIAN: Dr. Lee TECHNOLOGIST: Radha Simon PROCEDURE PERFORMED BY: Radha Simon PROCEDURE DATE: 06/18/2022 INDICATIONS: Gestational diabetic PROCEDURE DETAILS: The lie is Vertex. EFW is 1677g, which is the 48.5 percentile. The umbilical artery S/D ratio is 2.85. The heart rate is 130 bpm. [facility]10-06-2022 History of Present illness Narrative* Ariella [...] S/D ratio. Patient has seen dietitian and clinical unit educator. [facility] NoteLemuel Lee MD 06/18/2022 10:31 AM Procedure: Non-Stress Test Indication: Diabetes in Findings: NST: Reactive with GBTBV, + Accelerations, No decelerations. No regular contractions. Cat 1. [facility]10-06-2022 Procedure note* Lemuel Lee MD - 06/18/2022 10:00 AM EDTAssociated Order(s): [place] NON-STRESS TEST Pre-Procedure Diagnose(s): Diet controlled gestational diabetes mellitus (GDM) in third trimester Post-Procedure Diagnose(s): Diet controlled gestational diabetes mellitus (GDM) in third trimester Procedure: Non-Stress Test Indication: Diabetes in Findings: NST: Reactive with GBTBV, + Accelerations, No decelerations. No regular contractions. Cat1. [facility]10-06-2022 Procedure note* Lemuel Lee MD - 06/18/2022 10:00 AM EDTAssociated Order(s): [place] NON-STRESS TEST Pre-Procedure Diagnose(s): Diet controlled gestational diabetes mellitus (GDM) in third trimester Post-Procedure Diagnose(s): Diet controlled gestational diabetes mellitus (GDM) in third trimester Procedure: Non-Stress Test Indication: Diabetes in Findings: NST: Reactive with GBTBV, + Accelerations, No decelerations. No regular contractions. Cat1. [facility] History of Present illness Narrative* Татьяна Villegas RN - 06/17/2022 3:27 PM EDT [facility] DIABETES SELF-MANAGEMENT EDUCATION AND SUPPORT PROGRAM Patient [...] and Family: Three times a week Attends Yarsanism Services: Never Active Member of Clubs or [...] Current/Pertinent Medications: Current Outpatient Medications Ordered in [facility] Medication Sig Dispense Refill cholecalciferol, vitamin [...] tablet by mouth daily . No current [facility]-ordered facility-administered medications on file. 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 Tips given for more comfortable [...] the referring healthcare provider. documented in this [id number] History of Present illness Narrative* Marianna Lauren, [...] results today. All wnl except after eating Albanian food which included higher carbohydr ate content. 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 Lives w/ . Denies N/V/D; has constipation occasionally. C/o heartburn with long periods without food during the day. Pt reports adjusting eating since GDM dx and has reduced carbohydrate intake and including more snacks to prevent heartburn. Primary Support - Food Prep - self Grocery Shopping - self Cultural or Yarsanism Dietary Needs - none Pertinent Food/Drug Interactions [...] prescription for Current Outpatient Medications Ordered in [facility] Medication Sig Dispense Refill metFORMIN (GLUCOPHAGE) 500 MG tablet Take 1 (one) tablet (500 mg total) by mouth daily with breakfast . 30 tablet 11 No current [facility]-ordered facility-administered medications on file. Pt is [...] true [0.00] Estimated Nutritional Needs: Calorie Needs: 8273-3465 (20-23 kcal/kg + 450 for 3rd trimester) [...] the referring healthcare provider. documented in this [id number] History of Present illness Narrative* Shavonne Ba LPN - 05/22/2022 2:00 PM EDT 27.1, OB TX. Has not felt the baby move since last night. * Josse Walter MD - 05/22/2022 2:00 PM EDT [facility] [place] 27 y.o. at 27w1d Uncomplicated Ms. Petty [...] CHIOMA GAL 06/03/2022 10:00 AM CHIOMA LORENA [id number] OB ULTRASOUND, AVG 043OU CHIOMA GAL 06/11/2022 9:30 AM Josse Walter MD [id number] CHIOMA GAL [facility] note* Josse Walter MD - 05/22/2022 2:00 PM EDTAssociated Order(s): [place] NON-STRESS TEST Procedure(s): [place] NON-STRESS TEST Pre-Procedure Diagnose(s): Decreased movement, second trimester, fetus 1 Post-Procedure Diagnose(s): Decreased movement, second trimester, fetus 1 Non-stress Test Gestational age: 27w1d Indication: Decreased movement Baseline: 140 bpm 10x10s: N/A Variability: moderate Decelerations: absent Contractions: absent Duration >20 minutes Comments: Reassuring for gestational age 0905/22/22 Josse Walter MD [facility]09-09[facility] Procedure note* Josse Walter MD - 05/22/2022 2:00 PM EDTAssociated Order(s): [place] NON-STRESS TEST Procedure(s): [place] NON-STRESS TEST Pre-Procedure Diagnose(s): Decreased movement, second trimester, fetus 1 Post-Procedure Diagnose(s): Decreased movement, second trimester, fetus 1 Non-stress Test Gestational age: 27w1d Indication: Decreased movement Baseline: 140 bpm 10x10s: N/A Variability: moderate Decelerations: absent Contractions: absent Duration >20 minutes Comments: Reassuring for gestational age 0905/22/22 Josse Walter MD [facility] History of Present illness Narrative* [...] pt will think about. [facility] Note20 WEEK OB ULTRASOUND PROCEDURE [...] no previa noted. Normal fluid amount noted. [facility]07-28-2022 History of Present illness Narrative* Shavonne Ba LPN - 04/09/2022 10:30 AM EDT 21.0, Anatomy scan. * Josse Walter MD - 04/09/2022 10:30 AM EDT [facility] [place] 27 y.o. at 21w0d Uncomplicated She reports burning with urination, but this resolves with adequate hydration. She was advised to call if symptoms persist. Today: Normal anatomy, but unable to see outflow tracts. - Return OB visit in 3 weeks with U/S for outflow tracts. [facility] History of Present illness Narrative* [...] Patient tolerated venipuncture well. documented in this [facility] Miscellaneous Notes* Addendum Note - Clara Gorman RN - 03/12/2022 3:00 PM EDTAddended by: CLARA GORMAN on: 03/12/2022 03:53 PM Modules accepted: Orders * Addendum Note - Clara Gorman RN - 03/12/2022 3:00 PM EDTAddended by: CLARA GORMAN on: 03/12/2022 04:14 PM Modules accepted: Orders documented in this [facility]06-30-20[facility] Note* Addendum Note - Clara Gorman RN - 03/12/2022 3:00 PM EDTAddended by: CLARA GORMAN on: 03/12/2022 03:53 PM Modules accepted: Orders [facility] Note* Addendum Note - Clara Gorman RN - 03/12/2022 3:00 PM EDTAddended by: CLARA GORMAN on: 03/12/2022 04:14 PM Modules accepted: Orders [facility] History of Present illness Narrative* Josse Walter MD - 02/02/2022 2:50 PM EDT [facility] [place] 26 y.o. at 11w4d 1. Rh neg [...] Time Provider Department Center 03/12/2022 2:30 PM [facility] [id number] OB ULTRASOUND, AVG 043OU [facility] 03/12/2022 3:00 PM Lemuel Lee MD 043OG [facility] documented in this [facility] History of Present illness Narrative* [...] visit in 2-3 weeks. documented in [facility] History of Present illness Narrative* [...] Friends and Family: Not on file Attends Yarsanism Services: Not on file Active Member of [...] was likely aided with Dragon, and electronic escort patients device. Please excuse any errors or omissions that may not have been recognized at the time of this encounter. [facility] History of Present illness Narrative* [...] workup. She is on metformin per her crowd controller. Patient does have an element of PCO [...] within this encounter was likely aided with [employer], and electronic escort patients device. Please excuse any errors or omissions that may not have been recognized at the time of this encounter. 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 [facility]* Diagnosis Pelvic pain in , antepartum, first trimester- Primary [facility] this [facility]* Diagnosis 8 weeks gestation of - Primary state, incidental [facility] Diagnosis 8 weeks gestation of state, incidental [facility]* Diagnosis Dysuria- Primary [facility]* Diagnosis Ultrasound scan done for inability to hear heart tones Abnormality in heart rate/rhythm, antepartum condition or complication documented in this [facility]* Diagnosis Encounter for supervision of normal first in second trimester- Primary Supervision of normal first 17 weeks gestation of state, incidental [facility]* Diagnosis care in second trimester- Primary [facility] this [facility]* Diagnosis 20 weeks gestation of state, incidental documented [facility]* Diagnosis Encounter for supervision of normal first in second trimester- Primary Supervision of normal first 24 weeks gestation of state, incidental documented [facility]* Diagnosis Encounter for follow-up ultrasound of anatomy documented [facility]* Diagnosis Decreased movements in second trimester, single or unspecified fetus- Primary documented in [facility]* Diagnosis Diet controlled gestational diabetes mellitus (GDM) in third trimester documented in this [facility]* Diagnosis Diet controlled gestational diabetes mellitus (GDM), antepartum [facility]* Diagnosis Diet controlled gestational diabetes mellitus (GDM), antepartum- Primary [facility]* Diagnosis Diet controlled gestational diabetes mellitus (GDM) in third trimester- Primary Encounter for supervision of high risk in third trimester, antepartum 31 weeks gestation of state, incidental Ultrasound scan done for inability to hear heart tones Abnormality in heart rate/rhythm, antepartum condition or complication documented in this [facility]* Diagnosis Diet controlled gestational diabetes mellitus [...] of state, incidental [facility] Diagnosis Diet controlled gestational diabetes mellitus (GDM) in third trimester- Primary Encounter for supervision of high risk in third trimester, antepartum 34 weeks gestation of state, incidental [facility]* Diagnosis RUQ pain- Primary Abdominal pain, right upper quadrant Abnormal maternal glucose tolerance, antepartum Diet controlled gestational diabetes mellitus (GDM) in third trimester [facility]* Diagnosis Supervision of high risk in third trimester- Primary Unspecified high-risk Diet controlled gestational diabetes mellitus (GDM) in third trimester 35 weeks gestation of state, incidental [facility]* Diagnosis Preventative health care- Primary Routine general medical examination at a health care facility [facility] Diagnosis Diet controlled gestational diabetes mellitus (GDM) in third trimester- Primary Supervision of high risk in third trimester Unspecified high-risk 36 weeks gestation of state, incidental [facility]* Diagnosis Diet controlled gestational diabetes mellitus (GDM) in third trimester- Primary Supervision of high risk in third trimester Unspecified high-risk 37 weeks gestation of state, incidental [facility]* Diagnosis Diet controlled gestational diabetes mellitus (GDM) in third trimester- Primary Supervision of high risk in third trimester Unspecified high-risk 37 weeks gestation of state, incidental [facility]* Diagnosis (spontaneous vaginal delivery)- Primary Normal delivery Diet controlled gestational diabetes mellitus (GDM) in third trimester Encounter for induction of labor Encounter for induction of labor [facility]* Diagnosis Disruption of episiotomy wound in the puerperium- Primary Disruption of perineal wound, unspecified as to episode of care in [facility]* Diagnosis Viral URI with cough- Primary Acute upper respiratory infections of unspecified site Acute cough [facility]* Diagnosis Preventative health care- Primary Routine general medical examination at a health care facility Anxiety Anxiety state, unspecified [facility]* Diagnosis Anxiety- Primary Anxiety state, unspecified [facility]* Diagnosis Acute bronchitis, unspecified organism- Primary Acute cough [facility]* Diagnosis Well woman exam with routine gynecological exam- Primary Routine gynecological examination Cervical cancer screening Screening for malignant neoplasm of the cervix documented [facility]* Diagnosis Sore throat- Primary Acute pharyngitis documented in this encounter [facility] note* Diagnosis Acute non-recurrent frontal sinusitis- Primary documented in [facility]* Diagnosis Anxiety- Primary Anxiety state, unspecified documented in this encounter [facility] note* Diagnosis Anxiety- Primary Anxiety state, unspecified Chronic fatigue Other malaise and fatigue documented in this encounter [facility] note* Diagnosis Anxiety and depression- Primary documented in this encounter [facility] note* Diagnosis Anxiety and depression- Primary documented in this encounter [facility] note* Diagnosis Acute rhinosinusitis- Primary documented in this encounter [facility] Work Phone: Evaluation note* Diagnosis Anxiety and depression- Primary Anxiety and depression- Primary Unspecified mood (affective) disorder (HCC)- Primary as incidental finding documented in this encounter [facility] note* Diagnosis Anxiety and depression- Primary Anxiety and depression- Primary Unspecified mood (affective) disorder (HCC)- Primary documented in this encounter [facility] note* Diagnosis Anxiety and depression- Primary Anxiety and depression- Primary Anxiety and depression- Primary [facility] Attachments The following attachments cannot be sent through Care Everywhere. * : Vaginal Delivery ([place]) documented in this encounter[facility] HospitalInstructions* Attachments The following attachments cannot be sent through Care Everywhere. * Infertility ([place]) documented in this [facility]* Attachments The following attachments cannot be sent through Care Everywhere. * URI (Upper Respiratory Infection): Viral ([place]) documented in [facility]* Attachments The following attachments cannot be sent through Care Everywhere. * Acute Bronchitis or Chest Cold Care Instructions ([facility]) ([place]) documented in this [facility]* Attachments The following attachments cannot be sent through Care Everywhere. * Female Exams and Screenings ([facility]) ([place]) documented [facility] this [facility]* Attachments The following attachments cannot be sent through Care Everywhere. * Sinusitis: Acute ([place]) documented in this [facility] Author Nel Ruff [facility] Note Date/Time April 27, 2025 11 :53am [facility] [address] [place] [address], [address] [place] [address] OFFICE VISIT Date of Service: 04/27/25 MR#: [id number] Acct: [id number] Name: DRAKE PETTY Rep #: [id number] : 1995 Provider: BRET Ruff Age/Sex: 30/F [place] [facility] Status: Signed Intake Vital Signs 03/01/25 13:22 03/30/25 13:58 04/27/25 11:42 Height 5 ft 4 in 5 ft 4 in 5 ft 4 in Weight: 177 lb 7 oz BMI 30.4 BP 105/69 Intake Visit Reasons: 21 wk ob Chief Complaint: 21wk OB Pot Firer Required: No Is patient in pain?: No [...] 1 current occupational status: employed 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 stopped at first visit. 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 Electronically signed by Татьяна Brooke [facility] * Helen Shoemaker RN - 10/12/2019 [...] laser therapy. Acne can be treated with etri-qhh-hisbmoj medicines. Look for ones that have benzoyl [...] Log into your personal health record on [email or web address] and enter K559 in the Education box to learn more about Polycystic Ovary Syndrome: Care Instructions. Current as of: November 01, 2018 Content Version: 12.3 1207-2533 [employer] Check. Care instructions adapted under license by your healthcare professional. If you have questions about a medical condition or this instruction, always ask your healthcare professional. [employer] Check disclaims any warranty or liability for your [...] laser therapy. Acne can be treated with akap-bat-rzrqhvd medicines. Look for ones that have benzoyl [...] Log into your personal health record on [email or web address] and enter K559 in the Education box to learn more about Polycystic Ovary Syndrome: Care Instructions. Current as of: November 01, 2018 Content Version: 12.3 5308-4383 [employer] Check. Care instructions adapted under license by your healthcare professional. If you have questions about a medical condition or this instruction, always ask your healthcare professional. [employer] disclaims any warranty or liability for your use of this information. documented in this encounter Reason for Referral Status Reason Specialty Diagnoses / Procedures Referred By Contact Referred To Contact Pending Review Specialty Services Required/Patie nt's Best Interest Endocrinology/M etabolism Diagnoses Weight gain PCOS (polycystic ovarian syndrome) Татьяна Brooke, MED [address] [place] [address] Emmanuelle Lopez MD [address] [facility] [address] [place] [address] Status Reason Specialty Diagnoses / Procedures Referred By Contact Referred To Contact Authorized Specialty Services Required/Patien t's Best Interest Endocrinology/M etabolism Diagnoses Weight gain PCOS (polycystic ovarian syndrome) Татьяна Brooke, MED [address] [place] [address] Specialty Diagnoses / Procedures Referred By Contac t Referred To Contact Diagnoses 8 weeks gestation of Procedures US OB DATING ABDOMINAL < 14WEEKS Josse Walter MD [address] [place] [phone] Referral ID Status Reason Start Date Expiration Date V isits Requested Visits Authorized [id number] Auth Not Needed 01/09/2022 02/03/2023 1 1 Referral ID Status Reason Start Date Expiration Date Visits Re quested Visits Authorized [id number] Closed 01/09/2022 02/03/2023 1 1 Specialty Diagnoses / Procedures Referred By Contac t Referred To Contact Diagnoses Ultrasound scan done for inability to hear heart tones Procedures US OB DATING ABDOMINAL < 14WEEKS Josse Walter MD [address] [place] [phone] Referral ID Status Reason Start Date Expiration Date V isits Requested Visits Authorized [id number] New Request 02/02/2022 02/27/2023 1 1 Specialty Diagnoses / Procedures Referred By Contac t Referred To Contact Diagnoses 20 weeks gestation of Procedures US OB ANATOMY Jessica, Josse C, MD [address] [place] [phone] Referral ID Status Reason Start Date Expiration Date Visits Re quested Visits Authorized [id number] Closed 03/19/2022 04/13/2023 1 1 Specialty Diagnoses / Procedures Referred By Contac t Referred To Contact Diagnoses Encounter for follow-up ultrasound of anatomy Procedures US OB LIMITED/AMNIOTIC FLUID Josse Walter MD [address] [place] [phone] Referral ID Status Reason Start Date Expiration Date Visits Re quested Visits Authorized [id number] Closed 04/13/2022 05/08/2023 1 1 Specialty Diagnoses / Procedures Referred By Contac t Referred To Contact Diagnoses Diet controlled gestational diabetes mellitus (GDM) in third trimester Procedures ECG Lemuel Lee MD [address] [facility] [address] [place] [phone] Referral ID Status Reason Start Date Expiration Date V isits Requested Visits Authorized [id number] New Request 06/11/2022 07/06/2023 1 1 Specialty Diagnoses / Procedures Referred By Contac t Referred To Contact Diagnoses Diet controlled gestational diabetes mellitus (GDM) in third trimester Procedures US OB GROWTH/DATING > 14WEEKS Lemuel Lee MD [address] [facility] [address] [place] [phone] Referral ID Status Reason Start Date Expiration Date Visits Re quested Visits Authorized [id number] Closed 06/11/2022 07/06/2023 1 1 Referral ID Status Reason Start Date Expiration Date V isits Requested Visits Authorized [id number] Auth Not Needed 07/09/2022 08/03/2023 1 1 Specialty Diagnoses / Procedures Referred By Contac t Referred To Contact Behavorist (Outpatient Social Work) Diagnoses Anxiety and depression Keyla Meneses, ASSOCIATE PROFESSOR OF FORESTRY [address] [place] [address] Referral ID Status Reason Start Date Expiration Date V isits Requested Visits Authorized [id number] Authorized 04/27/2024 04/27/2025 1 1 Specialty Diagnoses / Procedures Referred By Contac t Referred To Contact Psychiatry Diagnoses Anxiety and depression Keyla Meneses, ASSOCIATE PROFESSOR OF FORESTRY [address] [place] [address] [facility] [address] [place] [address] Referral ID Status Reason Start Date Expiration Date V isits Requested Visits Authorized [id number] Authorized 05/18/2024 05/18/2025 1 1 Chief Complaint [...] 22, 2025 3:33pm PCOS (polycystic ovarian syndrome) [facility] 3:33pm May 22, 2025 3:33pm Supervision of high-risk [facility] 2024 3:33pm Chief Complaint Admit Date [...] 22, 2025 3:33pm PCOS (polycystic ovarian syndrome) [facility] 20[facility] 3:33pm May 22, 2025 3:33pm Supervision of high-risk [facility] 2024 3:33pm Low lying placenta, antepartum [...] 22, 2025 3:33pm PCOS (polycystic ovarian syndrome) [facility] 2024 3:33pm May 22, 2025 3:33pm Supervision of high-risk [facility] 2024 3:33pm Low lying placenta, antepartum May [...] section and content) DATE CREATED AUTHOR 03/08/2018 [facility] DATE CREATED AUTHOR AUTHOR'S ORGANIZ ATION 04/23/2019 [facility] DATE CREATED AUTHOR AUTHOR'S ORGANIZ ATION 01/08/2023 [facility] DATE CREATED AUTHOR AUTHOR'S ORGANIZ ATION 12/10/2023 [facility] DATE CREATED AUTHOR AUTHOR'S ORGANIZ ATION 12/13/2023 [facility] DATE CREATED AUTHOR AUTHOR'S ORGANIZ ATION 06/19/2024 [facility] DATE CREATED AUTHOR AUTHOR'S ORGANIZ ATION 11/11/2024 [facility] DATE CREATED AUTHOR AUTHOR'S ORGANIZ ATION 06/18/2025 [facility] DATE CREATED AUTHOR AUTHOR'S ORGANIZ ATION 07/17/2025 [facility] [facility] DATE CREATED AUTHOR AUTHOR'S ORGANIZ ATION 07/25/2025 [facility] Reason for Visit (unrecogniz ed section and [...] DATING ABDOMINAL < 14WEEKS Josse Walter MD [address] [address] Referral ID Status Reason Start Date Expiration Date Visits Re quested Visits Authorized [id number] Closed 01/09/2022 02/03/2023 1 1 Reason Comments Urinary Pain 11.4,Patient with dy suria, frequency, urgency Specialty Diagnoses / Procedures Referred By Contac t Referred To Contact Diagnoses Ultrasound scan done for inability to hear heart tones Procedures US OB DATING ABDOMINAL < 14WEEKS Josse Walter MD [address] [place] [phone] Referral ID Status Reason Start Date Expiration Date V isits Requested Visits Authorized [id number] New Request 02/02/2022 02/27/2023 1 1 Reason Comments 17.0 Reason Comments 21.0, Anatomy scan. Specialty Diagnoses / Procedures Referred By Contac t Referred To Contact Diagnoses 20 weeks gestation of Procedures US OB ANATOMY Josse Walter MD [address] [phone] Referral ID Status Reason Start Date Expiration Date Visits Re quested Visits Authorized [id number] Closed 03/19/2022 04/13/2023 1 1 Reason Comments Routine Visit Specialty Diagnoses / Procedures Referred By Contac t Referred To Contact Diagnoses Encounter for follow-up ultrasound of anatomy Procedures US OB LIMITED/AMNIOTIC FLUID Josse Walter MD [address] [address] Referral ID Status Reason Start Date Expiration Date Visits Re quested Visits Authorized [id number] Closed 04/13/2022 05/08/2023 1 1 Reason Comments 27.1, OB [place]. Has not felt the baby move since last night. Specialty Diagnoses / Procedures Referred By Contac t Referred To Contact Diagnoses Diet controlled gestational diabetes mellitus (GDM) in third trimester Procedures ECG Lemuel Lee MD [address] [phone] Referral ID Status Reason Start Date Expiration Date V isits Requested Visits Authorized [id number] New Request 06/11/2022 07/06/2023 1 1 Specialty Diagnoses / Procedures Referred By Contac t Referred To Contact Nutrition Diagnoses Diet controlled gestational diabetes mellitus (GDM), antepartum Lemuel Lee MD [address] [address] Nutrition Services [address] [place] [phone] Referral ID Status Reason Start Date Expiration Date V isits Requested Visits Authorized [id number] Authorized 06/12/2022 06/12/2023 5 5 Reason Comments Diabetes Mellitus Specialty Diagnoses / Procedures Referred By Contac t Referred To Contact Nutrition Diagnoses Diet controlled gestational diabetes mellitus (GDM), antepartum Lemuel Lee MD [address] [place] [phone] [facility] Services [facility] [place] [address] Reason Comments 31.0 with growth US and NST for GDM Specialty Diagnoses / Procedures Referred By Contac t Referred To Contact Diagnoses Diet controlled gestational diabetes mellitus (GDM) in third trimester Procedures US OB GROWTH/DATING > 14WEEKS Lemuel Lee MD [address] [place] [phone] Referral ID Status Reason Start Date Expiration Date Visits Re quested Visits Authorized [id number] Closed 06/11/2022 07/06/2023 1 1 Reason Comments [...] Contact Lemuel Lee MD [address] [place] [phone] [facility] Referral ID Status Reason Start Date Expiration Date Visits Re quested Visits Authorized [id number] 1 1 Reason Comments Follow-up Episiotomy wound [...] done Reason Onset Date Comments Care coordination [facility] 04/28/2024 Reason Onset Date Comments Care coordination [facility] 05/05/2024 Reason Comments Anxiety Patient states that [...] done Reason Onset Date Comments Care coordination [facility] 05/19/2024 Reason Onset Date Comments Medication Refill 07/27/2024 Reason Onset Date Comments Medication Refill 10/02/2024 Reason Comments Sinus Problem Pt states sinus pres sure, congestion, and change in color of mucus. Pt states sx started Wednesday. Care Teams (unrecognized sec tion and content) Dinkey Operator Slate Relationship Specialty Start Date End Date Anand Cooley DO PCP - General Family Medicine 04/21/17 Dinkey Operator Slate Relationship Specialty Start Date End Date Anand Cooley DO PCP - General Family Medicine 04/21/17 Dinkey Operator Slate Relationship Specialty Start Date End Date Anand Cooley DO PCP - General Family Medicine 04/21/17 Dinkey Operator Slate Relationship Specialty Start Date End Date Anand Cooley DO PCP - General Family Medicine 04/21/17 Dinkey Operator Slate Relationship Specialty Start Date End Date Anand Cooley DO PCP - General Family Medicine 04/21/17 Dinkey Operator Slate Relationship Specialty Start Date End Date Anand Cooley DO PCP - General Family Medicine 04/21/17 Dinkey Operator Slate Relationship Specialty Start Date End Date Anand Cooley DO PCP - General Family Medicine 04/21/17 Dinkey Operator Slate Relationship Specialty Start Date End Date Anand Cooley DO PCP - General Family Medicine 04/21/17 Dinkey Operator Slate Relationship Specialty Start Date End Date Anand Cooley DO PCP - General Family Medicine 04/21/17 Dinkey Operator Slate Relationship Specialty Start Date End Date Anand Cooley DO PCP - General Family Medicine 04/21/17 Dinkey Operator Slate Relationship Specialty Start Date End Date Anand Cooley, DO PCP - General Family Medicine 04/21/17 Dinkey Operator Slate Relationship Specialty Start Date End Date Татьяна Brooke, ASSOCIATE PROFESSOR OF FORESTRY PCP - General Family Medicine 10/11/19 Eunice Del Angel, ASSOCIATE PROFESSOR OF FORESTRY [address] [facility] [place] [address] Nurse Practitioner Obstetrics/Gynecology 02/09/19 Dinkey Operator Slate Relationship Specialty Start Date End Date Татьяна Brooke, ASSOCIATE PROFESSOR OF FORESTRY [address] [place] [address] PCP - General Family Medicine 10/11/19 Eunice Del Angel, ASSOCIATE PROFESSOR OF FORESTRY [address] [place] [address] Nurse Practitioner Obstetrics/Gynecology 02/09/19 Dinkey Operator Slate Relationship Specialty Start Date End Date Anand Cooley DO PCP - General Family Medicine 04/21/17 Dinkey Operator Slate Relationship Specialty Start Date End Date Anand Cooley DO PCP - General Family Medicine 04/21/17 Dinkey Operator Slate Relationship Specialty Start Date End Date Anand Cooley DO PCP - General Family Medicine 04/21/17 Dinkey Operator Slate Relationship Specialty Start Date End Date Anand Cooley DO PCP - General Family Medicine 04/21/17 Dinkey Operator Slate Relationship Specialty Start Date End Date Anand Cooley DO PCP - General Family Medicine 04/21/17 Dinkey Operator Slate Relationship Specialty Start Date End Date Anand Cooley DO PCP - General Family Medicine 04/21/17 Dinkey Operator Slate Relationship Specialty Start Date End Date Татьяна Brooke, ASSOCIATE PROFESSOR OF FORESTRY [address] [place] [address] PCP - General Family Medicine 10/11/19 Eunice Del Angel, ASSOCIATE PROFESSOR OF FORESTRY [address] [place] [address] Nurse Practitioner Obstetrics/Gynecology 02/09/19 Dinkey Operator Slate Relationship Specialty Start Date End Date Anand Cooley DO PCP - General Family Medicine 04/21/17 Dinkey Operator Slate Relationship Specialty Start Date End Date Anand Cooley DO PCP - General Family Medicine 04/21/17 Dinkey Operator Slate Relationship Specialty Start Date End Date Anand Cooley DO PCP - General Family Medicine 04/21/17 Dinkey Operator Slate Relationship Specialty Start Date End Date Anand Cooley DO PCP - General Family Medicine 04/21/17 Dinkey Operator Slate Relationship Specialty Start Date End Date Татьяна Brooke, ASSOCIATE PROFESSOR OF FORESTRY [address] [place] [address] PCP - General Family Medicine 10/11/19 Eunice Del Angel, MED [address] [place] [address] Nurse Practitioner Obstetrics/Gynecology 02/09/19 Dinkey Operator Slate Relationship Specialty Start Date End Date Татьяна Brooke, ASSOCIATE PROFESSOR OF FORESTRY [address] [place] [address] PCP - General Family Medicine 10/11/19 Eunice Del Angel, MED [address] [place] [address] Nurse Practitioner Obstetrics/Gynecology 02/09/19 Dinkey Operator Slate Relationship Specialty Start Date End Date Anand Cooley DO PCP - General Family Medicine 04/21/17 Dinkey Operator Slate Relationship Specialty Start Date End Date Anand Cooley DO PCP - General Family Medicine 04/21/17 Dinkey Operator Slate Relationship Specialty Start Date End Date Татьяна Brooke CNP [address] [place] [address] PCP - General Certified Nurse Practitioner 12/07/23 Dinkey Operator Slate Relationship Specialty Start Date End Date Татьяна Brooke CNP [address] [place] [address] PCP - General Certified Nurse Practitioner 12/07/23 Dinkey Operator Slate Relationship Specialty Start Date End Date Татьяна Brooke, MED [address] [place] [phone] PCP - GRICEL Attributed Provider - [employer] 10/14/23 09/12/50 Keyla Meneses, MED [address] [phone] PCP - General Family Medicine 03/06/24 Eunice Del Angel CNP [address] [place], [place] [phone] Nurse Practitioner Obstetrics/Gynecology 02/09/19 Dinkey Operator Slate Relationship Specialty Start Date End Date Татьяна Brooke, ASSOCIATE PROFESSOR OF FORESTRY [address] [place] [phone] PCP - GRICEL Attributed Provider - [employer] 10/14/23 09/12/50 Keyla Meneses, MED [address] [place] [address] PCP - General Family Medicine 03/06/24 Eunice Del Angel, MED [address] [place] [address] Nurse Practitioner Obstetrics/Gynecology 02/09/19 Dinkey Operator Slate Relationship Specialty Start Date End Date Татьяна Brooke, MED [address] [place] [address] PCP - GRICEL Attributed Provider - [employer] 10/14/23 09/12/50 Keyla Meneses, ASSOCIATE PROFESSOR OF FORESTRY [address] [place] [address] PCP - General Family Medicine 03/06/24 Eunice Del Angel, MDE [facility] [address] [place] [address] Nurse Practitioner Obstetrics/Gynecology 02/09/19 Dinkey Operator Slate Relationship Specialty Start Date End Date Татьяна Brooke, ASSOCIATE PROFESSOR OF FORESTRY [address] [place] [phone] PCP - GRICEL Attributed Provider - [employer] 10/14/23 09/12/50 Keyla Meneses, ASSOCIATE PROFESSOR OF FORESTRY [facility] [place] [address] PCP - General Family Medicine 03/06/24 Eunice Del Angel, ASSOCIATE PROFESSOR OF FORESTRY [facility] [address] [place] [address] Nurse Practitioner Obstetrics/Gynecology 02/09/19 Dinkey Operator Slate Relationship Specialty Start Date End Date Татьяна Brooke, ASSOCIATE PROFESSOR OF FORESTRY [address] [place] [phone] PCP - GRICEL Attributed Provider - [employer] 10/14/23 09/12/50 Keyla Meneses, ASSOCIATE PROFESSOR OF FORESTRY [address] [place] [address] PCP - General Family Medicine 03/06/24 Eunice Del Angel, MED [address] [place] [address] Nurse Practitioner Obstetrics/Gynecology 02/09/19 Dinkey Operator Slate Relationship Specialty Start Date End Date Татьяна Brooke, ASSOCIATE PROFESSOR OF FORESTRY [address] [place] [address] PCP - GRICEL Attributed Provider - [employer] 10/14/23 09/12/50 Keyla Meneses, MED [facility] [place] [address] PCP - General Family Medicine 03/06/24 Eunice Del Angel, MED [address] [place] [address] Nurse Practitioner Obstetrics/Gynecology 02/09/19 Dinkey Operator Slate Relationship Specialty Start Date End Date Татьяна Brooke, MED [address] [place] [address] PCP - GRICEL Attributed Provider - [employer] 10/14/23 09/12/50 Keyla Meneses, MED [address] [place] [address] PCP - General Family Medicine 03/06/24 Eunice Del Angel, MED [address] [place] [address] Nurse Practitioner Obstetrics/Gynecology 02/09/19 Dinkey Operator Slate Relationship Specialty Start Date End Date Anand Cooley DO [address] [place] [address] PCP - General 01/31/14 Dinkey Operator Slate Relationship Specialty Start Date End Date Keyla Meneses CNP [address] [place] [address] PCP - General Family Medicine 03/06/24 Eunice Del Angel, MED [address] [facility] [place] [address] Nurse Practitioner Obstetrics/Gynecology 02/09/19 Team Status: Active Member Role Status Dates Keyla Meneses HEALTH CARE ANALYST-C Primary Care Provider Active Team Status: Inactive Member Role Status Dates Keyla Meneses HEALTH CARE ANALYST-C Primary Care Provider Active Start: January 02, 2025 End: January 02, 2025 Keyla Meneses HEALTH CARE ANALYST-C Referring Provider Active Start: January 02, 2025 End: January 02, 2025 Emma Valenzuela NP, HEALTH CARE ANALYST-C Attending Provider Active Start: January 02, 2025 End: January 02, 2025 Team Status: Inactive Member Role Status Dates Keyla Meneses HEALTH CARE ANALYST-C Primary Care Provider Active Start: January 18, 2025 End: January 18, 2025 Keyla Meneses HEALTH CARE ANALYST-C Referring Provider Active Start: January 18, 2025 [...] Inactive Member Role Status Dates Keyla Meneses HEALTH CARE ANALYST-C Primary Care Provider Active Start: March 01, 2025 End: March 01, 2025 Keyla Meneses HEALTH CARE ANALYST-C Referring Provider Active Start: March 01, 2025 [...] March 01, 2025 End: March 01, 2025 Dinkey Operator Slate Relationship Specialty Start Date End Date Keyla Meneses CNP [address] [place] [id number] PCP - General Family Medicine 03/06/24 Eunice Del Angel, ASSOCIATE PROFESSOR OF FORESTRY [address] [place] [address] [address] Nurse Practitioner Obstetrics/Gynecology 02/09/19 Nel Ruff Certified Nurse Adjunct Instructor Of Women'S Studies 01/22/25 Team Status: Active Member Role/Relationship Status Dates Keyla Meneses NP-C Primary Care Provider Active Team Status: Inactive Member Role/Relationship Status Dates Keyla Meneses NP-C Primary Care Provider Active Start: January 02, 2025 End: January 02, 2025 Keyla Meneses NP-C Referring Provider Active Start: January 02, 2025 End: January 02, 2025 Emma Valenzuela NP HEALTH CARE ANALYST-C Attending Provider Active Start: January 02, [...] Role/Relationship Status Dates Keyla L Gideon , HEALTH CARE ANALYST-C Primary Care Provider Active Start: January 18, 2025 End: January 18, 2025 Nel Ruff CNM Attending Provider Active S tart: January 18, 2025 End: January 18, 2025 Nel Ruff CNM Referring Provider Active S tart: January 18, 2025 End: January 18, 2025 Team Status: Inactive Member Role/Relationship Status Dates Keyla Meneses HEALTH CARE ANALYST-C Primary Care Provider Active Start: March 01, 2025 End: March 01, 2025 Keyla Meneses HEALTH CARE ANALYST-C Referring Provider Active Start: March 01, 2025 End: March 01, 2025 Dr. Emmanuelle Contreras DO Attending Provider Activ e Start: March 01, 2025 End: March 01, 2025 Team Status: Inactive Member Role/Relationship Status Dates Keyla Meneses HEALTH CARE ANALYST-C Primary Care Provider Active Start: March 01, 2025 End: March 01, 2025 Nel Ruff CNM Attending Provider Active S tart: March 01, 2025 End: March 01, 2025 Nel Ruff CNM Referring Provider Active S tart: March 01, 2025 End: March 01, 2025 Team Status: Inactive Member Role/Relationship Status Dates Keyla Meneses HEALTH CARE ANALYST-C Primary Care Provider Active Start: March 30, 2025 End: March 30, 2025 Keyla Meneses HEALTH CARE ANALYST-C Referring Provider Active Start: March 30, 2025 End: March 30, 2025 Dr. Ayala Thompson MD Attending Provider Active Start: March 30, 2025 End: March 30, 2025 Team Status: Inactive Member Role/Relationship Status Dates Keyla Meneses HEALTH CARE ANALYST-C Primary Care Provider Active Start: April 27, 2025 End: April 27, 2025 Keyla Meneses HEALTH CARE ANALYST-C Referring Provider Active Start: April 27, 2025 End: April 27, 2025 Nel Ruff CNM Attending Provider Active S tart: April 27, 2025 End: April 27, 2025 Team Status: Inactive Member Role/Relationship Status Dates Keyla Meneses , HEALTH CARE ANALYST-C Primary Care Provider Active Start: March 01, 2025 End: March 01, 2025 Keyla Meneses HEALTH CARE ANALYST-C Referring Provider Active Start: March 01, 2025 End: March 01, 2025 Dr. Emmanuelle Contreras DO Attending Provider Activ e Start: March 01, 2025 End: March 01, 2025 Team Status: Inactive Member Role/Relationship Status Dates Keyla Meneses , HEALTH CARE ANALYST-C Primary Care Provider Active Start: March 01, 2025 End: March 01, 2025 Nel Ruff CNM Attending Provider Active S tart: March 01, 2025 End: March 01, 2025 Nel Ruff CNM Referring Provider Active S tart: March 01, 2025 End: March 01, 2025 Team Status: Inactive Member Role/Relationship Status Dates Keyla Meneses HEALTH CARE ANALYST-C Primary Care Provider Active Start: March 30, 2025 End: March 30, 2025 Keyla Meneses , HEALTH CARE ANALYST-C Referring Provider Active Start: March 30, 2025 End: March 30, 2025 Dr. Ayala Thompson MD Attending Provider Active Start: March 30, 2025 End: March 30, 2025 Team Status: Inactive Member Role/Relationship Status Dates Keyla Meneses , HEALTH CARE ANALYST-C Primary Care Provider Active Start: April 27, 2025 End: April 27, 2025 Keyla Meneses , HEALTH CARE ANALYST-C Referring Provider Active Start: April 27, 2025 End: April 27, 2025 Nel Ruff CNM Attending Provider Active S tart: April 27, 2025 End: April 27, 2025 Team Status: Inactive Member Role/Relationship Status Dates Keyla Meneses HEALTH CARE ANALYST-C Primary Care Provider Active Start: May 22, 2025 End: May 22, 2025 Keyla Meneses , HEALTH CARE ANALYST-C Referring Provider Active Start: May 22, 2025 End: May 22, 2025 Emma Valenzuela NP, HEALTH CARE ANALYST-C Attending Provider Active Start: May 22, 2025 End: May 22, 2025 Team Status: Active Member Role/Relationship Status Dates Keyla Meneses HEALTH CARE ANALYST-C Primary care physician Active Team Status: Inactive Member Role/Relationship Status Dates Keyla Meneses HEALTH CARE ANALYST-C Primary care physician Active Start: March 01, 2025 End: March 01, 2025 Keyla Meneses , HEALTH CARE ANALYST-C Referring Provider Active Start: March 01, 2025 End: March 01, 2025 Dr. Emmanuelle Contreras DO Attending physician Acti ve Start: March 01, 2025 End: March 01, 2025 Team Status: Inactive Member Role/Relationship Status Dates Keyla Meneses , HEALTH CARE ANALYST-C Primary care physician Active Start: March 01, 2025 End: March 01, 2025 Nel Ruff CNM Attending physician Active Start: March 01, 2025 End: March 01, 2025 Nel Ruff CNM Referring Provider Active S tart: March 01, 2025 End: March 01, 2025 Team Status: Inactive Member Role/Relationship Status Dates Keyla Meneses , HEALTH CARE ANALYST-C Primary care physician Active Start: March 30, 2025 End: March 30, 2025 Keyla Meneses , HEALTH CARE ANALYST-C Referring Provider Active Start: March 30, 2025 End: March 30, 2025 Dr. Aylaa Thompson MD Attending physician Active Start: March 30, 2025 End: March 30, 2025 Team Status: Inactive Member Role/Relationship Status Dates Keyla Meneses , HEALTH CARE ANALYST-C Primary care physician Active Start: April 27, 2025 End: April 27, 2025 Keyla Meneses , HEALTH CARE ANALYST-C Referring Provider Active Start: April 27, 2025 End: April 27, 2025 Nel Ruff CNM Attending physician Active Start: April 27, 2025 End: April 27, 2025 Team Status: Inactive Member Role/Relationship Status Dates Keyla Meneses , HEALTH CARE ANALYST-C Primary care physician Active Start: May 22, 2025 End: May 22, 2025 Keyla Meneses , HEALTH CARE ANALYST-C Referring Provider Active Start: May 22, 2025 End: May 22, 2025 Emma Valenzuela NP, HEALTH CARE ANALYST-C Attending physician Active Start: May 22, 2025 End: May 22, 2025 Team Status: Inactive Member Role/Relationship Status Dates Keyla Meneses , HEALTH CARE ANALYST-C Primary care physician Active Start: June 13, 2025 End: June 13, 2025 Keyla Meneses , HEALTH CARE ANALYST-C Referring Provider Active Start: June 13, 2025 End: June 13, 2025 Dr. Emmanuelle Contreras DO Attending physician Acti ve Start: June 13, 2025 End: June 13, 2025 Team Status: Active Member Role/Relationship Status Dates MED MaldonadoC Primary care physician Active Start: June 13, 2025 Emma Valenzuela HEALTH CARE ANALYST, HEALTH CARE ANALYST-C Attending physician Active Start: June 13, 2025 Emma Valenzuela NP HEALTH CARE ANALYST-C Referring Provider Active Start: June 13, 2025 Dinkey Operator Slate Relationship Specialty Start Date End Date Gideon Keyla Meyer MED [address] [place] [address] PCP - General Family Medicine 03/06/24 Eunice Del Angel ASSOCIATE PROFESSOR OF FORESTRY [facility] [place] [address] Nurse Practitioner Obstetrics/Gynecology 02/09/19 Nel Ruff Certified Nurse Adjunct Instructor Of Women'S Studies 01/22/25 Team Status: Inactive Member Role/Relationship Status [...] End: May 22, 2025 Emma Valenzuela NP HEALTH CARE ANALYST-C Attending physician Active Start: May 22, 2025 [...] 25, 2025 End: June 25, 2025 OLY Maldondao Referring Provider Active Start: June 25, 2025 [...] [id number] ($$New Bag$$ - Provider: Daniel Tobar APRN-REHAB AID)[id number] (Rate/Dose Change - Provider: Daniel Tobar APRN-DONAL)[phone] [...] BE BASED ON THE PRIMARY CLINICAL RECORDS. [employer] provides no warranty or guarantee of the accuracy or completeness of information in this document.
[2025-08-22 05:14] LABS: Hematocrit 39.3 % (37-47); Hemoglobin 13.0 g/dL (12.0-15.0); Immature Granulocytes Count 0.100 X10^3/uL (0.0-0.0); Mean Corp Hgb Conc 33.1 g/dL (32-36); Mean Corpuscular Volume 85.6 fL (81-99); Mean Platelet Vol. 10.0 fl (6.2-12.0); NRBC Flagged by Analyzer 0 % (0-5); Platelet Count 197 K/mm3 (150-450); RBC Distribution Width CV 14.0 % (11.6-14.6); RBC Distribution Width SD 43.5 fl (35.1-43.9); Red Blood Count 4.59 M/mm3 (4.2-5.4); White Blood Count 15.7 K/mm3 (4.4-11.0)
[2025-08-22 05:49] LABS: Syphilis Antibodies Nonreactive (Nonreactive)
--- NOTE | 2025-08-22 06:06 | HP.PCM.OB_ITS ---
HPI - General General Date of Admission: 08/22/25 HPI Narrative DRAKE CAMACHO, is a 30 F who presents IAL precipitously delivering within an hour of presentation Maternal Data Information ASHLEE Calculator Estimated Delivery Date Method Current WG Current Estimate 09/04/25 Ultrasound #1 38w 1d Other Estimates 08/16/25 LMP (Certain) 40w 6d PFSH PFSH Medical History Depression with anxiety PCOS (polycystic ovarian syndrome) Home Medications ?Medication ?Instructions ?Recorded ?Last Taken ?Type PNV 153-FA 400 mcg-om3 35 mg-dha 1 tab PO DAILY pregna ncy 01/11/25 08/21/25 History 25 mg-epa 5 mg-fish oil chew tablet famotidine 20 mg tablet (Pepcid) 20 mg PO BID indigest ion #60 tabs 06/13/25 08/21/25 Rx alcohol swabs (Alcohol Wipes) 200 pad topical .prn blo od sugar 06/18/25 08/21/25 Rx check #200 ea blood sugar diagnostic (OneTouch #100 ea 06/18/25 Unkn own Rx Ultra Test strips) lancets #200 ea 06/18/25 Unknown Rx 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 sensor (Dexcom G7 #1 ea 06/28/25 Unknown Rx Sensor device) 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,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,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 #1 ea 06/28/25 Unknown Rx (Dexcom G7 Calender Machine Operator Helper) insulin NPH isoph U-100 human 100 16 unit (0.16 mL) son bcut QHS 07/27/25 08/21/25 Rx unit/mL (3 mL) subcutaneous pen insulin #15 mL (Humulin N NPH U-100 Insulin KwikPen) aripiprazole 5 mg tablet (Abilify) 10 mg PO QDAY depre ssion 08/03/25 08/21/25 0 8:00 History lamotrigine 200 mg tablet 100 mg PO QDAY 08/03/25 Unkn own History pen needle, diabetic 29 gauge x #100 ea 08/03/25 Unkno wn Rx 1/2 (Ultra-Thin II Insulin Pen [place]) Allergy/AdvReac Type Severity Reaction Status Date / Time No Known Allergies Allergy Verified 08/22/25 05:21 Family History Father Hypertension Mother Depression with anxiety Grandmother Diabetes Maternal Skin cancer, Onset Age: 75 Maternal Grandfather Diabetes Maternal Grandmother Diabetes Paternal Surgical History S/P wrist surgery S/P left knee surgery Social History adopted: No household members: spouse and children housing: house number of children: 1 current occupational status: employed 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 [employer] current occupational exposures/hazards: No pets and animals: No history of recent travel: Yes (December) out of state: Yes out of country: No sexually active: Yes Smoking Status: Never smoker alcohol intake: current alcohol intake frequency: a few times a month details: not since substance use type: former substance user Date of last use: 10years ago and marijuana well-balanced diet: daily or most days caffeine: No eating out: 1-3 times/week during the past year weight has: decreased > 10 lbs what type of physical activity do you participate in: walking frequency: 5-6 times per week duration: 45-60 minutes/day carolann/judaism: None seatbelt use: always do you feel safe at home: Yes 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 Date Name GA/Weeks Outcome Route Bth Weight Gen Labor Lgth Anesthesia [facility] Provider FOB 08/11/22 [place] 38 live - full term forceps 6#10oz Male epidural [facility] Jan[facility] Josue Delivery Date: 08/11/22 Last Updated by: Joslyn Gregory IOL, GDM Visit Details Expected Delivery Route/Plan Labor Preferences- CB/BF classes: no labor support person: Josue labor intervention preferences: [] pain management options preferred: limited but ok if requested epidural cut cord/dad catch: cord : yes PP control planned: discussed discussed possible routes of delivery and associated risks: [] special requests: [] Plans Covid status: [] Flu vaccine: decline Tdap vaccine: given Rhogam:NA LARC form signed: yes Problem list reviewed and updated with the most current plan of care details and appropriate orders placed. Relevant counseling for the gestational age provided. Continue routine care and follow up unless otherwise noted in visit notes/problem list details OB Flowsheet Initial Weight: 162 lb Date -?-?-?-?-?-?-?-?-?-?-?-?- EGA Weight BP Urine Prot -?-?-?-?-?-?-?-?-?-?-?-?- Glucose FHR FuHt Pres Dilation -?-?-?-?-?-?-?-?-?-?-?-?- Effaced St Visit Note 01/18/25 -?-?-?-?-?-?-?-?-?-?-?-?- 7w 2d 162 lb 2 oz (+2 oz) 122/79 -?-?-?-?-?-?-?--?-?-?-?-?- 151 -?-?-?-?-?-?-?-?-?-?-?-?- KW-CRL not cons with dates. ASHLEE changed. will plan NOB labs next visit. 03/01/25 -?-?-?-?-?-?-?-?-?-?-?-?- 13w 2d 166 lb (+4 lb) 111/70 Negative -?-?-?-?-?-?-?-?-?-?-?-?- Negative 158 -?-?-?-?-?-?-?-?-?-?-?-?- JV- no lof, vagi nal bleeding, or cramping. NIPT and new ob labs to be done today. 03/30/25 -?-?-?-?-?-?-?-?-?-?-?-?- 17w 3d 169 lb 4 oz (+7 lb 4 oz) 116/72 Negative -?-?-?-?-?-?-?-?-?-?-?-?- Negative 145 -?-?-?-?-?-?-?-?-?-?-?-?- SM- no vb lof cr amping 04/27/25 -?-?-?-?-?-?-?-?-?-?-?-?- 21w 3d 177 lb 7 oz (+15 lb 7 oz) 105/69 Negative -?-?-?-?-?-?-?-?-?-?-?-?- Negative 140 21 -?-?-?-?-?-?-?-?-?-?-?-?- KW- no vb/joanna banks. scheduled for low lying placenta. 05/22/25 -?-?-?-?-?-?-?-?-?-?-?-?- 25w 0d 184 lb 5 oz (+22 lb 5 oz) 115/75 Negative -?-?-?-?-?-?-?-?-?-?-?-?- Negative 158 25 -?-?-?-?-?-?-?-?-?-?-?-?- MH-No VB, LOF. G ood FM. Rpt MFM US 06/13/25. Larc 06/13/25 -?-?-?-?-?-?-?-?-?-?-?-?- 28w 1d 185 lb (+23 lb) 101/67 Negative -?-?-?-?-?-?-?-?-?-?-?-?- Negative 145 29 -?-?-?-?-?-?-?-?-?-?-?-?- JV- placenta no longer low lying. discussed tdap, flu, rsv. going to decide. JV- placenta no longer low l nick. discussed tdap, flu, rsv. going to decide. She also wants to go straight to glucose testing if the one hour is abnormal. 06/25/25 -?-?-?-?-?-?-?-?-?-?-?-?- 29w 6d 183 lb 6 oz (+21 lb 6 oz) 108/74 Negative -?-?-?-?-?-?-?-?-?-?-?-?- Negative 130 31 -?-?-?-?-?-?-?-?-?-?-?-?- KW- no vb/lof/ct x. good fm. reviewed blood sugars and fastings are 100-115. PP numbers are 130-150. watching carbs and has info from last -GDM. will start Metformin 500mg. discussed nsts and growth US. KW- no vb/lof/ctx. good fm. reviewed blood sugars and fastings are 100-115. PP numbers are 130-150. watching carbs and has info from last -GDM. will start Metformin 500mg. discussed nsts and growth US. declines flu shot. would like tdap next visit. will get RSV at a pharmacy 07/10/25 -?-?-?-?-?-?-?-?-?-?-?-?- 32w 0d 183 lb 1 oz (+21 lb 1 oz) 116/75 Negative -?-?-?-?-?-?-?-?-?-?-?-?- Negative 140 32 -?-?-?-?-?-?-?-?-?-?-?-?- MH-NO VB. Mauro F M Reactive NST. glucose readings WNL. On metformin. 07/13/25 -?-?-?-?-?-?-?-?-?-?-?-?- 32w 3d 182 lb 9 oz (+20 lb 9 oz) 110/72 Negative -?-?-?-?-?-?-?-?-?-?-?-?- Negative 135 -?-?-?-?-?-?-?-?-?-?-?-?- kw-NST only-reac tive 07/17/25 -?-?-?-?-?-?-?-?-?-?-?-?- 33w 0d 184 lb 8 oz (+22 lb 8 oz) 118/72 Negative -?-?-?-?-?-?-?-?-?-?-?-?- Negative 140 -?-?--?-?-?-?-?-?-?-?-?-?- JV- NST reactive today 07/20/25 -?-?-?-?-?-?-?-?-?-?-?-?- 33w 3d 186 lb (+24 lb) 101/69 Negative -?-?-?-?-?--?-?-?-?-?-?-?- Negative 130 -?-?-?-?-?-?-?-?-?-?-?-?- JV- glucose odilon ls still over 90's fasting but she just started the metformin 2 days ago. if by wednesday it is still high, will increase to 1000mg HS. NST reactive 07/24/25 -?-?-?-?-?-?-?-?-?-?-?-?- 34w 0d 184 lb 8 oz (+22 lb 8 oz) 123/79 Negative -?-?-?-?-?-?-?-?-?-?-?-?- Negative 135 -?-?-?-?-?-?-?-?-?-?-?-?- KW- started 1000 mg at HS on wednesday night. fastings are still elevated. PLan to switch to insulin wednesday if still out of range. good fm and no vb/lof/ctx. growth US scheduled. 07/27/25 -?-?-?-?-?-?-?-?-?-?-?-?- 34w 3d 183 lb 8 oz (+21 lb 8 oz) 116/77 Negative -?-?-?-?-?-?-?-?-?-?-?-?- Negative 140 -?-?-?-?-?-?-?-?-?-?-?-?- JV- fastings, af ter breakfast and after dinner elevated despite 1500 metformin. Stop metformin start NPH insulin for the weekend. If still no improvement will add rapid. NSt reactive 07/31/25 -?-?-?-?-?-?-?-?-?-?-?-?- 35w 0d 183 lb 6 oz (+21 lb 6 oz) 112/73 Negative -?-?-?-?-?-?-?-?-?-?-?-?- Negative 135 -?-?-?-?-?-?-?-?-?-?-?-?- KW- NST only-trudi ctive. Doing much better on insulin and fasting numbers in range. will try to get BPP scheduled with Growth US on 08/1008/03/25 -?-?-?-?-?-?-?-?-?-?-?-?- 35w 3d 187 lb 7 oz (+25 lb 7 oz) 131/83 Negative -?-?-?-?-?-?-?-?-?-?-?-?- Negative 140 -?-?-?-?-?-?-?-?-?-?-?-?- SM- no vb lof go od fm n oreugar ctx BS reviewed 08/06/25 -?-?-?-?-?-?-?-?-?-?-?-?- 35w 6d 185 lb 6 oz (+23 lb 6 oz) 107/76 Negative -?-?-?-?-?-?-?-?-?-?-?-?- Negative 130 Cephalic 1 -?-?-?-?-?-?-?-?-?-?-?-?- 50 -3 MH-reactiv e NST. No VB, lof, CTX. BS reviewed and >90% wnl w/insulin. 08/13/25 -?-?-?-?-?-?-?-?-?-?-?-?- 36w 6d 186 lb 5 oz (+24 lb 5 oz) 112/78 Negative -?-?-?-?-?-?-?-?-?-?-?-?- Negative 140 Cephalic 1 -?-?-?-?-?-?-?-?-?-?-?-?- 50 -3 JV- fastin g levels still in the high 90's. 2 hr pp are getting much better. increasing NPH to 18 at bedtime. JV- fasting levels still in the high 90's. 2 hr pp are getting much better. increasing NPH to 18 at bedtime. upon exam there was fluid present. rom plus ordered stat. JV- fasting levels still in the high 90's. 2 hr pp are getting much better. increasing NPH to 18 at bedtime. upon exam there was fluid present. rom plus ordered stat. - was negative. 08/16/25 -?-?-?-?-?-?-?-?-?-?-?-?- 37w 2d 186 lb (+24 lb) 109/77 Negative -?-?-?-?-?-?-?-?-?-?-?-?- Negative 130 -?-?-?-?-?-?-?-?-?-?-?-?- KW- NST reactive . will need IOL set up at next visit. fastings are under 95 now but PP numbers are still very inconsistent. KW- NST reactive. will need IOL set up at next visit. fastings are under 95 now but PP numbers are still very inconsistent. discussed with JV and increase morning NPH to 34 units 08/20/25 -?-?-?-?-?-?-?-?-?-?-?-?- 37w 6d 187 lb 6 oz (+25 lb 6 oz) 115/77 Negative -?-?-?-?-?-?-?-?-?-?-?-?- Negative 140 -?-?-?-?-?-?-?-?-?-?-?-?- Sm- no vb lof go od fm no regular ctx BS controlled. NST FHR Rate Baby A Baseline: 140 Variability:: Moderate Decelerations:: None NST Reactive:: Yes Uterine Activity:: q3-5 ROS Constitutional Constitutional: Reports systems reviewed and no addt'l complaints, except as documented ENT HEENT: Reports systems reviewed and no addt'l complaints, except as documented Cardiovascular Cardiovascular: Reports systems reviewed and no addt'l complaints, except as documented Respiratory/Chest Respiratory/Chest: Reports systems reviewed and no addt'l complaints, except as documented Gastrointestinal Gastrointestinal: Reports systems reviewed and no addt'l complaints, except as documented and nausea; Denies abdominal pain Genitourinary Genitourinary: Reports systems reviewed and no addt'l complaints, except as documented, contractions Details: present and frequency (regular ) and movement Details: present Musculoskeletal Musculoskeletal: Reports systems reviewed and no addt'l complaints, except as documented Integumentary Integumentary: Reports as per HPI Neurologic Neurologic: Reports systems reviewed and no addt'l complaints, except as documented Endocrine Endocrinology: Reports systems reviewed and no addt'l complaints, except as documented Vital Signs Vital Signs Vital Signs: 08/22/25 05:01 08/22/25 05:01 08/22/25 05:01 Temperature 97.8 F Temperature Source Temporal Pulse Rate Respiratory Rate 18 Blood Pressure BP Systolic BP Diastolic 08/22/25 05:08 08/22/25 05:08 Temperature Temperature Source Pulse Rate 95 Respiratory Rate Blood Pressure 127/75 H BP Systolic 127 BP Diastolic 75 Weight Weight: 185 lb Body Mass Index (BMI) 31.7 Physical Exam Const alert, oriented x3 and healthy appearing Constitutional Narrative: uncomfortable with contractions HEENT normocephalic and moist oral mucous membranes Head and Scalp: atraumatic Neck full ROM, no lymphadenopathy, supple and thyroid normal General: trachea midline Thyroid: thyroid normal Lymph Lymphatic: no lymphadenopathy noted Chest inspection of chest normal Resp normal respiratory effort Cardio regular rate GI soft to palpation and non-tender GI Narrative: gravid Inspection: gravid external exam normal Bimanual Exam - Vag & Uterus: uterus non-tender Manual OB Exam: estimated gestational size appropriate, presentation cephalic, dilated, effaced and station Extremity normal to inspection General Extremity: Negative for edema Skin no rashes or lesions noted Neuro deep tendon reflexes 2+ bilaterally Motor Exam: strength 5/5 throughout and clonus absent Psych mental status grossly normal Labs Labs Labs: Blood Type A POSITIVE Antibody Screen NEGATIVE Hct, (37-47) 39.3 % Hgb, (12.0-15.0) 13.0 g/dL Obstetrics Ultrasound Syphilis Total Ab, (Nonreactive) Nonreactive Rubella IgG Antibody, (Nonreactive) REAC Hep Bs Antigen, (Nonreactive) Nonreactive Hepatitis C Antibody, (Nonreactive) Nonreactive Chlamydia DNA (NELLY), (Negative) Negative N.gonorrhoeae DNA (NELLY), (Negative) Negative HIV 1&2 Antibody, (Nonreactive) Nonreactive Glucose 1 Hr 50 gm, (70-140) 166 mg/dL H Assessment & Plan (1) Gestational diabetes mellitus (GDM) affecting , antepartum: COMMENT: NSTs 2Xwk @ 32, and growth US at 32 and 36 weeks deliver at 39 insulin started 07/27/25 - NPH Qhs and with breakfast, 18, and 34 (2) Hx of forceps delivery in prior , currently : (3) History of gestational diabetes mellitus (GDM) in prior , currently : COMMENT: A1C (4) : QUALIFIERS: Weeks of gestation: 37 weeks Qualified Code(s): Z3A.37 - 37 weeks gestation of COMMENT: Neg GBS. Panorama low risk, female. carrier neg. . ntd declined. (5) Supervision of high-risk : QUALIFIERS: Trimester: third trimester Qualified Code(s): O09.93 - Supervision of high risk , unspecified, third trimester COMMENT: PRR, , ASHLEE 09/04/25, girl SARITA Ellis, Josue (6) PCOS (polycystic ovarian syndrome): COMMENT: on metformin- sees endo in [place] . stopped at first visit. (7) Depression with anxiety: COMMENT: sees psychiatrist-Dr. Fuentes-Does not meet criteria for diagnosis of bipolar (8) Vaginal delivery: COMMENT: precip ial sm girl ryn PLAN: Plan admit IAL
[2025-08-22] MEDS: Oxytocin 15 Units/NS 250ml 15 UNITS/250 ML IV.SOLN 334 UNITS IV (06:17)
--- NOTE | 2025-08-22 06:17 | EX.PCM.OBVAG ---
Assessment & Plan (1) Vaginal delivery: COMMENT: precip ial sm girl ryn (2) Gestational diabetes mellitus (GDM) affecting , antepartum: COMMENT: NSTs 2Xwk @ 32, and growth US at 32 and 36 weeks deliver at 39 insulin started 07/27/25 - NPH Qhs and with breakfast, 18, and 34 Maternal Data Information ASHLEE Calculator Estimated Delivery Date Method Current WG Current Estimate 09/04/25 Ultrasound #1 38w 1d Other Estimates 08/16/25 LMP (Certain) 40w 6d Vaginal Delivery Maternal Presentation Maternal Presentation: see assessment and plan Vaginal Delivery Information Procedure Performed: Spontaneous Vaginal Delivery Surgeon/Practitioner: Ayala Thompson Date of Procedure: 08/22/25 Pre-Procedure Diagnosis: see assessment and plan Post-Procedure Diagnosis: same Type of anesthesia: Local with 1% Lidocaine Estimated Blood Loss: 200 Findings Description of procedure: Patient began pushing and delivered the head in the VARUN presentation. The head was delivered atraumatically . The anterior and posterior shoulders delivered without complication followed by the rest of the infant and the was placed on the maternal abdomen. Delayed cord clamping was employed for approximately 60 seconds. Cord was clamped and cut and gentle traction was applied to the cord and the placenta delivered spontaneously immediately following it was noted to be intact with three-vessel cord. The perineum and vagina were inspected and was noted to have a second -degree laceration that was repaired in the usual fashion with 3-0 vicryl rapide after prepping with betadine and injecting with lidocaine. EBL was 200. Patient and infant tolerated delivery well. Presentation: Vertex Placental Delivery Description: Spontaneous Specimen collected: Yes Description of specimen(s) removed: placenta Piping Design Specialist alarm technician: No Post Vaginal Deli Medications given after delivery: Other (pitocin) Complication Complications: No Multi Select Codes Urinary/Genital Urinary/Genital CPT Codes: 47080 Vaginal Delivery [facility]
--- NOTE | 2025-08-22 06:18 | DCINST_ITS ---
Discharge Instructions DC O2, CPAP, BIPAP needs Home O2 Discharge instructions: No Dressing / Incision Discharge Activity: Return to Normal Activity, May Not Drive (while taking narcotic pain medications.) and May Shower May resume sexual activity in: 4-6 weeks Dressing / Incision Call your doctor if your incision/area has: Continuous Slow Oozing, Sudden Increased Bleeding, Increased Pain/ Swelling, Increased Redness and Foul Smelling Discharge Follow Up Care Please Follow Up With: Ayala Thompson MD When: Call [phone] to make an appointment with your doctor in 6 weeks. If you had elevated blood pressure or 4th degree laceration, you will need to be seen in 2 weeks. Test Results: Test results from this visit will be discussed in further detail at your follow- up appointment, if applicable. Discharge Plan Admission Admit Date/Time: 08/22/25 05:00 Attending Provider: Ayala Thompson Primary Care Provider: Keyla Meneses Discharge Orders/Prescriptions Prescriptions: No Action PNV no.[id number] 400 mcg-35 mg- 25 mg-5 mg tablet,chewable 1 tab PO DAILY lamotrigine 200 mg tablet 100 mg PO QDAY famotidine [Pepcid] 20 mg tablet 20 mg PO BID Qty: 60 4RF Humulin N NPH Insulin KwikPen 100 unit/mL (3 mL) insulin pen 16 unit subcut QHS Qty: 15 3RF Rx Instructions: tke 16 units at bedtime and 30 units with breakfast aripiprazole [Abilify] 5 mg tablet 10 mg PO QDAY (DME) OneTouch Ultra Test Strip See Rx Instructions .Route Qty: 100 2RF Rx Instructions: As directed, fasting and 2 hours post meals (DME) lancets Misc See Rx Instructions .ROUTE .MEDSUPPLY Qty: 200 2RF Rx Instructions: As directed, fasting and 2 hours post meals alcohol swabs [Alcohol Wipes] Pads, Medicated 200 pad topical .prn Qty: 200 2RF (DME) Dexcom G7 Sensor Device See Rx Instructions .Route Qty: 1 9RF Rx Instructions: As directed (DME) Dexcom G7 Track Laying Equipment Operator Misc See Rx Instructions .Route Qty: 1 0RF Rx Instructions: As directed (DME) pen needle, diabetic [Ultra-Thin II Ins Pen [place]] 29 gauge x 1/2 needle See Rx Instructions .Route Qty: 100 3RF Rx Instructions: Test blood sugars QID Referrals / Follow Up: Keyla Meneses, LINUX DEVOPS ENGINEER-C [Primary Care Provider, [facility]]
[2025-08-22] MEDS: Oxytocin 15 Units/NS 250ml 15 UNITS/250 ML IV.SOLN 83 UNITS IV (07:05)
[2025-08-22] MEDS: SELF ADMINISTRATION OF MEDS 1 EACH NOTE (18:14)
[2025-08-22] MEDS: GLYCERIN/WITCH HAZEL (TUCKS) MED..PAD 1 EACH TOPICAL (18:14)
[2025-08-23 03:19] VITALS: BP 106/72; PULSE 88; RESP 14; TEMP 36.5; O2SAT 99
--- NOTE | 2025-08-23 08:02 | PCM.PN.OB ---
Subjective Subjective Patient doing well without complaints. Tolerating PO. Ambulating and voiding without difficulty. Feeding well. Denies chest pain, shortness of breath, calf pain/swelling, fevers, chills, lightheadedness. Objective Data Objective Data Vital Signs: Vital Signs Temp Pulse Resp BP Pulse Ox O2 Del Method 97.7 F L 88 14 106/72 99 Room Air 08/23/25 03:19 08/23/25 03:19 08/23/25 03:19 08/23/25 03:19 08/23/25 03:19 08/23/25 03:19 Oxygen Delivery Method Room Air Weight: 185 lb Body Mass Index (BMI) 31.7 Intake & Output: Intake and Output for Last 24 Hours 08/21/25 08/22/25 08/23/25 23:59 23:59 23:59 Intake Total 500 / 500 Output Total 200 / 200 Balance 300 / 300 Lab / Micro Data 08/22/25 05:00 Labs: Laboratory Results - last 24 hr 08/23/25 06:12: POC Glucose 86 Physical Exam Const alert and oriented x3 HEENT normocephalic Eyes PERRL Neck full ROM Resp normal respiratory effort GI soft to palpation GI Narrative: FF below U Assessment & Plan (1) Vaginal delivery: COMMENT: precip ial sm girl ryn (2) Gestational diabetes mellitus (GDM) affecting , antepartum: COMMENT: stable pp insulin started 07/27/25 - NPH Qhs and with breakfast, 18, and 34 (3) Depression with anxiety: COMMENT: sees psychiatrist-Dr. Fuentes-Does not meet criteria for diagnosis of bipolar PLAN: Plan s/p PPD # 1 1. routine post delivery care 2. breast feeding- support given 3. rh positive 4. rubella immune 5. glucose stable 6. home today
[2025-08-23 08:45] VITALS: BP 116/77; PULSE 99; RESP 16
== END 2025-08-23 09:50 | disposition home or self-care (01) | DRG 807 ==
LOC: WPOUT 05:00 → WP 05:00
PROVIDERS: Admitting Provider Obstetrics & Gynecology; PCP Nurse Practitioner; Referring Provider Obstetrics & Gynecology; Visit Provider Obstetrics & Gynecology
DX: O62.3 Precipitate labor (principal); Z37.0 Single live birth; O24.424 Gestational diabetes mellitus in childbirth, insulin controlled; E28.2 Polycystic ovarian syndrome; F41.8 Other specified anxiety disorders; Z81.8 Family history of other mental and behavioral disorders; O99.344 Other mental disorders complicating childbirth; O99.284 Endocrine, nutritional and metabolic diseases complicating childbirth; Z3A.39 39 weeks gestation of pregnancy; O70.1 Second degree perineal laceration during delivery
CPT/HCPCS: 59025; 59050; 82962; 85025; 86780; 86850; 86900; 86901; 99221; G0378